=== PATIENT | female | born 1960 | race Caucasian/White ===

== ENCOUNTER → 2022-09-28 15:27 | Outpatient (BNVA) | payer OTHER, SELFPAY | PROVIDERS: Visit Provider Physician Assistant | DX: M54.50 Low back pain, unspecified (principal); M43.16 Spondylolisthesis, lumbar region; Z91.81 History of falling | CPT/HCPCS: 72100; 99203 ==

== ENCOUNTER → 2022-10-06 13:43 | Outpatient (BNVA) | payer OTHER, SELFPAY | PROVIDERS: Visit Provider Internal Medicine | DX: M54.50 Low back pain, unspecified (principal) | CPT/HCPCS: 99213 ==

== ENCOUNTER → 2022-10-19 08:39 | Outpatient (BNVA) | payer OTHER, SELFPAY | PROVIDERS: Visit Provider Internal Medicine | DX: S29.012D Strain of muscle and tendon of back wall of thorax, subsequent encounter (principal); S39.012D Strain of muscle, fascia and tendon of lower back, subsequent encounter; W18.30XD Fall on same level, unspecified, subsequent encounter | CPT/HCPCS: 99213 ==

== ENCOUNTER 2024-07-30 12:47 | Outpatient (REF) | payer OTHER, SELFPAY ==
[2024-07-30 15:09] LABS: MANUAL DIFF FLAG NO
[2024-07-30 15:21] LABS: Basophils Percent Auto 0.6 % (0-2); Eosinophils Percent Auto 0.2 % (0-4); Hematocrit 40.4 % (37.0-47.0); Hemoglobin 13.4 g/dl (12.0-16.0); Imm Gran Abs Auto 0.02 X10*3/uL (0.00-0.03); Imm Gran Pct Auto 0.3 % (0.0-0.4); Lymphocytes Percent Auto 32.7 % (20-40); Mean Corpuscular HGB Conc 33.2 g/dl (31.0-35.0); Mean Corpuscular Hemoglobin 30.4 pg (27.0-33.0); Mean Corpuscular Volume 91.6 fL (80.0-98.0); Mean Platelet Volume 9.6 fL (9.4-12.3); Monocytes Absolute Auto 0.5 X10*3/uL (0.1-1.2); Monocytes Percent Auto 7.3 % (2-11); Neutrophils Absolute Auto 3.7 x10*3/uL (2.0-8.3); Neutrophils Percent Auto 58.9 % (45-73); Platelet Count 275 X10*3/uL (160-400); Red Blood Count 4.41 X10*6/uL (4.20-5.50); Red Cell Distribution Width 13.3 % (11.0-16.0); White Blood Count 6.2 X10*3/uL (4.8-10.8)
[2024-07-30 15:45] LABS: Alanine Aminotransferase 14 U/L (0-31); Albumin Level 4.4 g/dL (3.5-5.0); Alkaline Phosphatase 50 U/L (39-117); Anion Gap 11 (12-20); Aspartate Amino Transferase 25 U/L (5-31); Bilirubin Total 0.5 mg/dL (0.0-1.0); Blood Urea Nitrogen 23 mg/dL (9-16); C Reactive Protein < 0.04 mg/dL (< or = 0.50); Calcium 9.8 mg/dL (8.4-10.2); Carbon Dioxide 28 mmol/L (22-29); Chloride 105 mmol/L (96-108); Estimated Glomerular Filt Rate > 60; Glucose Random 92 mg/dL (60-115); Sodium 140 mmol/L (135-145); Total Protein 7.1 g/dL (6.5-8.0)
[2024-07-30 16:00] LABS: Erythrocyte Sedimentation Rate 4 MM/HR (0-20)
[2024-07-30 16:38] LABS: Creatinine Urine 108.74 mg/dL; Total Protein Urine Random < 7 mg/dL (<12)
[2024-08-01 10:28] LABS: Complement C3 109 mg/dL (83-193)
== END 2024-07-30 12:48 | disposition home or self-care (01) ==
LOC: HO.LAB 12:47
PROVIDERS: PCP Nurse Practitioner Adult Health; Visit Provider Internal Medicine Rheumatology
DX: M32.9 Systemic lupus erythematosus, unspecified (principal); M35.00 Sjogren syndrome, unspecified; M19.90 Unspecified osteoarthritis, unspecified site; Z79.631 Long term (current) use of antimetabolite agent
CPT/HCPCS: 80053; 82550; 82570; 84156; 85025; 85652; 86140; 86160

== ENCOUNTER 2024-10-07 09:33 | Outpatient (REF) | payer OTHER, SELFPAY ==
--- OUTSIDE RECORDS SUMMARY | 2024-10-07 09:41 | XMS_ITS | Data Portability ---
Author Organization [facility], [facility] Address [address] [place] [address] Care Team Providers Care Research Electrician Name Role Phone HAJA LA Insurance Claim Approver JUANIS SEARS Soft Sugar Operator Head [phone] KEITH TAFOYA Deputy Chief Executive KAITLIN MONTAÑO Rooming House Keeper COLLEEN GARBER General Surgeon MISAEL MURPHY Insurance Claim Approver [phone] HERLINDA PASCUAL Primary Care Provider [phone] Assessment Encounter Date Assessment Date Assessment LastModified by Organization Details LastModified Time 01/02/2020 01/02/2020 Patient agreed t o this visit via phone or secure telehealth platform due to the COVID -19 pandemic. Patient understands this is a scheduled visit and the usual procedures with regard to billing and confidentiality apply. Patient was notified that the provider location is [facility] [place] Patient location: home During the visit the patient? s medical history and medical record were reviewed. The patient was notified to call our office for worsening or urgent symptoms. [email or web address] Not available 01/02/2020 12:52:07 Plan of Treatment Reminders Order Date Submit Date Provider Last Modified By Organization Details Last Modified Time Details Appointments None recorded . Lab pap, LB + HPV 2019 020 [facility] (Pathology), [address] [place] [address], [address], 0 09:26:53 Referral None recorded . Procedures None recorded . Surgeries None recorded . Imaging MAMMO, screenin g, digital, bilatera l 2019 020 ATHENAFAX [facility], [address] [facility], [place], [address], 0 09:41:07 Medication Orders lorazepa m 1 mg tablet 2019 020 INTERFACE [facility] #[id number], [address], [place], [id number], 0 11:48:02 Hydromet 5 mg-1.5 mg/5 mL oral syrup 2019 020 aforesteire [facility] #[id number], [address], [place], [id number], 0 07:33:02 lorazepa m 1 mg tablet 2019 020 INTERFACE [facility] #[id number], [address], [place], [id number], 0 07:49:40 Patient TargetsNo targets recorded. Patient Instructions Encounter Date Encounter Id Patient Instructions Last Modified By Organization Details Last Modified Time 11/11/2019 [id number] high blood pressure: care instructions Not available 11/11/2019 16:47:09 learning about high blood pressure Not available 11/11/2019 16:47:09 well visit, women 50 to 65: care instructions Not available 11/11/2019 16:47:09 asthma handout / teaching Not available 11/11/2019 16:47:09 asthma action plan Not available 11/11/2019 16:47:09 After a discussion of treatment options, which included consideration of best practices and patient preferences, the previous treatment plan and objectives were adopted: Cardiovascular risk reduction was discussed including benefits and risks of aspirin, exercise goals, healthy eating and healthy weight . Discussion greater than 7.5 minutes. [email or web address] Not available 11/11/2019 15:06:10 01/02/2020 [id number] After a discussion of treatment options, which included consideration of best practices and patient preferences, the above treatment plan and objectives were adopted as above. 100% of today's 25 min visit spent counseling or coordinating care [email or web address] Not available 01/02/2020 12:52:00 01/08/2020 [id number] Patient agreed to this visit via phone or secure telehelath platform due to the COVID-19 pandemic. Patient understands this is a scheduled visit and the usual procedures with regard to billing and confidentiality apply. Patient was notified that the provider location is [facility] – [place]. Patient location: Home During the visit the patient's medical history and medical record were reviewed. The patient was notified to call our office for worsening or urgent symptoms and to schedule an in person visit if necessary. 25 min visit: 50 % of time spent providing counseling & instruction. Not available 01/08/2020 15:27:41 02/04/2020 [id number] anxiety disorder: care instructions Not available 02/06/2020 13:46:41 Patient agreed to this visit via phone or secure telehelath platform due to the COVID-19 pandemic. Patient understands this is a scheduled visit and the usual procedures with regard to billing and confidentiality apply. Patient was notified that the provider location is [facility] – [place]. Patient location: Home During the visit the patient's medical history and medical record were reviewed. The patient was notified to call our office for worsening or urgent symptoms and to schedule an in person visit if necessary. Not available 02/06/2020 13:46:22 04/05/2020 [id number] Patient agreed to this visit via phone or secure telehelath platform due to the COVID-19 pandemic. Patient understands this is a scheduled visit and the usual procedures with regard to billing and confidentiality apply. Patient was notified that the provider location is [facility] [place]. Patient location: Home During the visit the patient's medical history and medical record were reviewed. The patient was notified to call our office for worsening or urgent symptoms and to schedule an in person visit if necessary. Not available 04/05/2020 08:12:17 Reason for Referral None Reported. Results Created Date Observation Date Name Description Value Unit Range Abnormal Flag Note LastModifiedBy Organization Detail LastModifiedTime 10/20/19 20 10/20/2019 urina lysis , dipst ick glu UA NEGATI VE Not Available [facility] [address] [place] [address], [id number], 10/20/2019 10:50:38 10/20/19 20 10/20/2019 urina lysis , dipst ick clarity UA CLEAR Not Available [facility] [address] [place] [address], [address], 10/20/2019 10:50:38 10/20/19 20 10/20/2019 urina lysis , dipst ick uro UA 0.2000 Not Available [facility] [address] [place] [address], [address], 10/20/2019 10:50:38 10/20/19 20 10/20/2019 urina lysis , dipst ick ket UA 1+ abnormal Not Available [facility] [address] [place] [address], [address], 10/20/2019 10:50:38 10/20/19 20 10/20/2019 urina lysis , dipst ick pro UA TRACE abnormal Not Available [facility] [address] [place] [address], [address], 10/20/2019 10:50:38 10/20/19 20 10/20/2019 urina lysis , dipst ick nit UA NEGATI VE Not Available [facility] [address] [place] [address], [address], 10/20/2019 10:50:38 10/20/19 20 10/20/2019 urina lysis , dipst ick raimundo UA TRACE abnormal Not Available [facility] [address] [place] [address], [address], 10/20/2019 10:50:38 10/20/19 20 10/20/2019 urina lysis , dipst ick pH UA 5.5000 Not Available [facility] [address] [place] [address], [address], 10/20/2019 10:50:38 10/20/19 20 10/20/2019 urina lysis , dipst ick SG UA >=1.03 00 Not Available [facility] [address] [place] [address], [address], 10/20/2019 10:50:38 10/20/19 20 10/20/2019 urina lysis , dipst ick color UA DARK YELLOW Not Available [facility] [address] [place] [address], [address], 10/20/2019 10:50:38 10/20/19 20 10/20/2019 urina lysis , dipst ick blo UA NEGATI VE Not Available [facility] [address] [place] [address], [address], 10/20/2019 10:50:38 10/20/19 20 10/20/2019 urina lysis , dipst ick balbir UA NEGATI VE Not Available [facility] [address] [place] [address], [id number], 10/20/2019 10:50:38 10/20/19 20 10/22/2019 cultu re, urine culture, urine, routine CULTU RE, URINE , ROUTI NE Micro Numbe r: [id number] Test Statu s: Final Speci men Sourc e: URINE Speci men Quali ty: Adequ ate Resul t: Multi ple organ isms prese nt, each less than 10,00 0 CFU/m L. These organ isms, commo nly found on exter nal and inter nal genit mira, are consi dered to be colon izers . No furth er testi ng perfo rmed. 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 CERVI GABBIE, LIQUI D BASED SPECI MEN: SPECI MEN ADEQU ACY: Satis facto ry for evalu ation . INTER PRETA TION: NEGAT PABLO FOR INTRA EPITH ELIAL LESIO N OR MALIG ANGELICA . ADDIT IONAL INFOR MATIO N: Atrop hic saldaña es prese nt. This speci men was presc reene d using the BD Focal Point GS Imagi ng Syste m. Elect mihai alleliana Janell d Out By: Kings a LoBuo no CT( CP)MB Cervi gabbie cytol ogy is a scree nafisa test prima rily for squam ous cance rs and precu rsors and has assoc iated false -nega tive and false -posi tive resul ts. New techn ologi es such as liqui d-bas ed prepa ratio ns may decre ase but will not elimi emre all false -nega tive resul ts. Regul ar sampl ing and follo w-up of unexp lloyd d clini gabbie signs and sympt oms are recom johnnie d to minim ize false negat pablo resul ts. PROCE DURES /ADDE NDA HPV Testi ng (Requ ested ) Order ed Date: A. CERVI GABBIE, LIQUI D BASED SPECI MEN: Human Papil nati Virus Test Negat pablo for high- risk human papil lomav irus types 16, 18, 45 and the Othe r high risk probe set (Incl udes 31, 33, 35, 39, 51, 52, 56, 58, 59, 66, 68) by Aspen Harirs nson Onccarlitos wong HR-HP V hussein sis. Clini gabbie corre latio n is advis ed. This HPV test was perfo rmed at [facility] [place], [address] [place]. This test has been FDA appro cathi for SureP ath cervi gabbie cytol ogy speci mens. The accur acy and preci migue of this test for all other speci men sourc es has been verif ied in the Cytop athol ogy [facility] and has not been clear ed or appro cathi by the U.S. Food and Drug Admin istra tion. Clini gabbie corre latio n is advis ed. Rena ctron icall y Janell d Out By: Kayla Truong on 2019 15:52 CLINI GABBIE HISTO RY Date of Last Menst rual Perio d: Menst rual Histo ry: Unkno wn Other Clini gabbie Condi tions : Scree nafisa Pap SPECI MEN SOURC E A: CERVI GABBIE, LIQUI D BASED SPECI MEN Not Available [facility] (Outpatient) [address] [place] [address], [address], 11/27/2019 09:26:53 12/12/19 20 12/12/2019 CBC w/ auto diff WBC 4.78 K/uL 4.00-1 1.00 Note Refer ence Range updat es to all CBC and Diffe renti al resul ts. Not Available [facility] (Outpatient) [address] [place] [address], [address], 12/12/2019 18:55:14 12/12/19 20 12/12/2019 CBC w/ auto diff RBC 4.38 M/uL 3.72-5 .30 Not Available [facility] (Outpatient) [address] [place] [address], [address], 12/12/2019 18:55:14 12/12/19 20 12/12/2019 CBC w/ auto diff HGB 13.8 g/dL 11.4-1 5.9 Note updat ed Refer ence Range s for all CBC and Diffe renti al resul ts. Not Available [facility] (Outpatient) [address] [place] [address], [address], 12/12/2019 18:55:14 12/12/19 20 12/12/2019 CBC w/ auto diff HCT 41.7 % 34.2-4 6.8 Not Available [facility] (Outpatient) [address] [place], [address], 12/12/2019 18:55:14 12/12/19 20 12/12/2019 CBC w/ auto diff plt 248 K/uL 140-43 0 Not Available [facility] (Outpatient) [address] [place], [address], 12/12/2019 18:55:14 12/12/19 20 12/12/2019 CBC w/ auto diff MCV 95.2 fL 78.0-9 7.0 Not Available [facility] (Outpatient) [address] [place], [address], 12/12/2019 18:55:14 12/12/19 20 12/12/2019 CBC w/ auto diff MCH 31.5 pg 25.0-3 3.0 Not Available [facility] (Outpatient) [address] [place], [address], 12/12/2019 18:55:14 12/12/19 20 12/12/2019 CBC w/ auto diff MCHC 33.1 g/dL 32.0-3 6.0 Not Available [facility] (Outpatient) [address] [place], [address], 12/12/2019 18:55:14 12/12/19 20 12/12/2019 CBC w/ auto diff RDW 13.6 % 11.0-1 6.0 Not Available [facility] (Outpatient) [address] [place], [address], 12/12/2019 18:55:14 12/12/19 20 12/12/2019 CBC w/ auto diff MPV 10.7 fL 8.4-12 .8 Not Available [facility] (Outpatient) [address] [place], [address], 12/12/2019 18:55:14 12/12/19 20 12/12/2019 CBC w/ auto diff NRBC 0.00 /100_ WBCs 0 Not Available [facility] (Outpatient) [address] [place], [address], 12/12/2019 18:55:14 12/12/19 20 12/12/2019 CBC w/ auto diff absolute NRBC 0.00 K/uL 0 Not Available [facility] (Outpatient) [address] [place], [address], 12/12/2019 18:55:14 12/12/19 20 12/12/2019 CBC w/ auto diff diff method Auto Not Available [facility] (Outpatient) [address] [place], [address], 12/12/2019 18:55:14 12/12/19 20 12/12/2019 CBC w/ auto diff neuts 49.9 % 43.0-7 5.0 Not Available [facility] (Outpatient) [address] [place], [address], 12/12/2019 18:55:14 12/12/19 20 12/12/2019 CBC w/ auto diff lymphs 40.6 % 18.2-4 7.4 Not Available [facility] (Outpatient) [address] [place], [address], 12/12/2019 18:55:14 12/12/19 20 12/12/2019 CBC w/ auto diff monos 6.5 % 4.00-1 1.00 Not Available [facility] (Outpatient) [address] [place], [address], 12/12/2019 18:55:14 12/12/19 20 12/12/2019 CBC w/ auto diff eos 1.3 % 0.0-8. 0 Not Available [facility] (Outpatient) [address] [place], [address], 12/12/2019 18:55:14 12/12/19 20 12/12/2019 CBC w/ auto diff basos 1.5 % 0.0-2. 0 Not Available [facility] (Outpatient) [address] [place], [address], 12/12/2019 18:55:14 12/12/19 20 12/12/2019 CBC w/ auto diff granulocytes , immature (%) 0.2 % 0.0-0. 9 Not Available [facility] (Outpatient) [address] [place], [address], 12/12/2019 18:55:14 12/12/19 20 12/12/2019 CBC w/ auto diff absolute neuts 2.39 K/uL 1.80-7 .70 Not Available [facility] (Outpatient) [address] [place], [address], 12/12/2019 18:55:14 12/12/19 20 12/12/2019 CBC w/ auto diff absolute lymphs 1.94 K/uL 1.00-3 .10 Not Available [facility] (Outpatient) [address] [place], [address], 12/12/2019 18:55:14 12/12/19 20 12/12/2019 CBC w/ auto diff absolute monos 0.31 K/uL 0.20-0 .80 Not Available [facility] (Outpatient) [address] [place], [address], 12/12/2019 18:55:14 12/12/19 20 12/12/2019 CBC w/ auto diff absolute eos 0.06 K/uL 0.00-0 .80 Not Available [facility] (Outpatient) [address] [place], [address], 12/12/2019 18:55:14 12/12/19 20 12/12/2019 CBC w/ auto diff absolute basos 0.07 K/uL 0.00-0 .09 Not Available [facility] (Outpatient) [address] [place], [address], 12/12/2019 18:55:14 12/12/19 20 12/12/2019 CBC w/ auto diff granulocytes , immature 0.01 K/uL 0.00-0 .05 Not Available [facility] (Outpatient) [address] [place], [address], 12/12/2019 18:55:14 12/12/19 20 12/12/2019 eryth rocyt e sedim entat ion rate by dustin jaime metho d ESR 6 mm/h 0-30 Not Available [facility] (Outpatient) [address] [place], [address], 12/12/2019 19:18:44 12/12/19 20 12/12/2019 CMP, serum or plasm a sodium 137 mmol/ L 133-14 6 Not Available [facility] (Out[facility]) [address] [place], [address], 12/12/2019 19:59:58 12/12/19 20 12/12/2019 CMP, serum or plasm a potassium 3.8 mmol/ L 3.3-5. 1 Not Available [facility] (Outpatient) [address] [place], [address], 12/12/2019 19:59:58 12/12/19 20 12/12/2019 CMP, serum or plasm a chloride 98 mmol/ L 96-108 Not Available [facility] (Outpatient) [address] [place], [address], 12/12/2019 19:59:58 12/12/19 20 12/12/2019 CMP, serum or plasm a CO2 28 mmol/ L 21-35 Not Available [facility] (Out[facility]) [address] [place], [address], 12/12/2019 19:59:58 12/12/19 20 12/12/2019 CMP, serum or plasm a BUN 11 mg/dL 6-19 Not Available [facility] ([facility]) [address] [place], [address], 12/12/2019 19:59:58 12/12/19 20 12/12/2019 CMP, serum or plasm a creatinine 0.80 mg/dL 0.5-1. 5 Not Available [facility] ([facility]) [address] [place], [address], 12/12/2019 19:59:58 12/12/19 20 12/12/2019 CMP, serum or plasm a glucose 92 mg/dL 70-99 Not Available [facility] ([facility]) [address] [place], [address], 12/12/2019 19:59:58 12/12/19 20 12/12/2019 CMP, serum or plasm a albumin 4.5 g/dL 3.9-4. 8 Not Available [facility] ([facility]) [address] [place], [address], 12/12/2019 19:59:58 12/12/19 20 12/12/2019 CMP, serum or plasm a total protein 7.1 g/dL 6.5-8. 0 Not Available [facility] ([facility]) [address] [place], [address], 12/12/2019 19:59:58 12/12/19 20 12/12/2019 CMP, serum or plasm a calcium 10.0 mg/dL 8.4-10 .3 Not Available [facility] ([facility]patient) [address] [place], [address], 12/12/2019 19:59:58 12/12/1912/12/2019 CMP, serum or plasm a alkaline phosphatase 52 U/L 39-117 Not Available [facility] (Out[facility]) [address] [place], [address], 12/12/2019 19:59:58 12/12/19 20 12/12/2019 CMP, serum or plasm a total bilirubin 0.3 mg/dL 0.0-1. 2 Not Available [facility] ([facility]) [address] [place] [address], [address], 12/12/2019 19:59:58 12/12/19 20 12/12/2019 CMP, serum or plasm a AST 20 U/L 0-37 Not Available [facility] ([facility]) [address] [place] [address], [address], 12/12/2019 19:59:58 12/12/19 20 12/12/2019 CMP, serum or plasm a ALT 8 U/L 0-40 Not Available [facility] ([facility]) [address] [place] [address], [address], 12/12/2019 19:59:58 12/12/19 20 12/12/2019 CMP, serum or plasm a globulin 2.6 g/dL 1-4.8 Not Available [facility] (Outpatient) [address] [place], [address], 12/12/2019 19:59:58 12/12/19 20 12/12/2019 CMP, serum or plasm a eGFR 82 mL/mi n/1.7 3m2 >59 If patie nt is black , multi ply resul t by 1.159 . Estim ated glome rular filtr ation rate calcu lated using the CKD-E PI equat ion. Not Available [facility] (Out[facility]) [address] [place], [address], 12/12/2019 19:59:58 12/12/19 20 12/12/2019 CMP, serum or plasm a anion gap 15 mmol/ L 10-20 Not Available [facility] ([facility]) [address] [place], [address], 12/12/2019 19:59:58 12/12/19 20 12/12/2019 C-gunnar ctive prote in, quant itati ve, serum or plasm a C reactive protein 0.4 mg/L 0.0-4. 0 Not Available [facility] (Outpatient) [address] [place], [address], 12/12/2019 20:00:00 12/12/19 20 12/12/2019 T4, free, serum free T4 1.1 NG/dL 0.9-1. 7 Not Available [facility] ([facility]) [address] [place], [address], 12/12/2019 20:00:01 12/12/19 20 12/12/2019 T3, free, serum or plasm a free T3 3.6 pg/mL 2.0-4. 4 Not Available [facility] ([facility]patient) [address] [place], [address], 12/12/2019 20:00:02 12/12/19 20 12/12/2019 TSH, serum or plasm a TSH 0.49 uIU/m L 0.27-4 .20 Not Available [facility] (Outpatient) [address] [place], [address], 12/12/2019 20:00:03 12/12/19 20 12/15/2019 thyro globu gamaliel antib francisco thyroglobuli n antibody, S <1.8 IU/mL <4.0 (NOTE ) ----- ----- ----- ----A DDITI ONAL INFOR MATIO N---- ----- ----- ----- The thyro globu gamaliel antib francisco testi ng metho d is an immun oenzy matic assay manuf actur ed by [employer] and perfo rmed on the Unice l DXI 800. Value s obtai landry from diffe rent assay metho ds or kits may be diffe rent and canno t be used inter saldaña elise . The resul ts canno t be inter prete d as absol elmer evide nce for the prese nce or absen ce of malig nant disea se. Not Available [facility] (Outpatient) [address] [place], [address], 12/15/2019 15:48:25 12/12/19 20 12/15/2019 thyro id perox idase (tpo) Ab, serum thyroperoxid ase Ab, S 21.2 IU/mL <9.0 high Not Available [facility] (Outpatient) [address] [place], [address], 12/15/2019 15:48:27 12/12/19 20 12/16/2019 C3 (comp lemen t), serum or plasm a C3 123 mg/dL 81-157 Not Available [facility] (Outpatient) [address] [place], [address], 12/16/2019 09:45:42 12/12/19 20 12/16/2019 C4 (comp lemen t), serum or plasm a C4 25 mg/dL 12-39 Not Available [facility] (Outpatient) [address] [place], [address], 12/16/2019 09:45:44 04/13/20 20 04/14/2020 SARS CoV 2 IgG Ab, QL IA, serum or plasm a sars cov 2 Ab IgG NEGATI VE normal Refer ence range : Negat pablo This test is inten ded for use as an aid in ident ifyin g indiv idual s with an adapt pablo immun e respo nse to SARS- CoV-2 , indic ating recen t or prior infec tion. Resul ts are for the detec tion of SARS- CoV-2 antib odies . IgG antib odies to SARS- CoV-2 are gener ally detec table in blood sever al days after initi al infec tion, altho ugh the durat ion of time antib odies are prese nt post- infec tion is not well lizette cteri zed. At this time, it is unkno wn for how long antib odies persi st follo wing infec tion and if the prese nce of antib odies confe rs prote ctive immun ity. Indiv idual s may have detec table virus by molec ular testi ng prese nt for sever al weeks follo wing seroc onver migue. Negat pablo resul ts do not precl ude acute SARS- CoV-2 infec tion. This test shoul d not be used to diagn ose acute SARS- CoV-2 infec tion. If acute infec tion is suspe cted, direc t testi ng by molec ular metho ds for SARS- CoV-2 is neces juan. False posit pablo resul ts for the test may occur due to cross -reac tivit y from pre-e xisti ng antib odies or other possi ble cause s. Pleas e revann w the Fact Sheet s avail able for healt h care provi ders and patie nts using the follo wing websi emma: [facility] /home /Covi d-19/ HCP/a ntibo dy/fa ct-sh eet2 [facility] /home /Covi d-19/ Patie nts/a ntibo dy/fa ct-sh eet2 This test has been autho rized by the FDA under an Emerg ency Use Autho rizat ion (EUA) for use by autho rized labor atori es. The FDA autho rized label ing is avail able on the [facility] websi te: www.Q uestD iagno MOVLs .com/ Covid 19. For addit ional infor giovana bone e refer to http: //luda lipscombque stdia gnost ics.c om/fa q/FAQ 219 (This link is being provi ded for infor giovana nal/e ducat ional purpo ses only. ) Not Available [facility] [place] [facility] [address], [place], [address], 04/14/2020 21:24:19 10/15/19 20 10/15/2019 xr chest Pa and later al 2 views XR CHEST PA AND LATERA L 2 VIEWS HISTOR Y: *Short ness of breath COMPAR JUNIOR: Chest x-ray 03/14/[address] scan of the chest 04/09/20 14 FINDIN GS: Lines and Tubes: None. Heart: The cardia c silhou ette is normal in size. Medias tinum: Air and fluid within disten ded stomac h is again noted within the left lower hemidi aphrag m. This correl ates with the left Bochda lek hernia contai nafisa stomac h and fat on the prior CT. Mild left basila r atelec tasis is presen t. Lungs and Pleura l: The right lung is clear. No pneumo thorax or pleura l effusi on. Bones and Soft Tissue s: No acute abnorm ality. IMPRES MIGUE: Left-s ided Bochda lek hernia contai nafisa air and fluid within the dilate d stomac h. Surgic al evalua tion can be obtain ed. Depend ent atelec tasis. POS CDHRAD BOARDW S4 Electr onical ly Signed by: PAVAN ROBLERO on 10/15/19 12:30 PM Interp reted by: Pavan Roblero MD Signed by: Pavan Roblero MD 10/15/19 Final result P.s. Cough x1 month, hx of flu. Cough x 1 month WARNER ESCALANTE [facility] [address] [facility], [place], [address], 10/15/2019 17:15:20 10/16/19 20 10/15/2019 XR, chest , 2 view No observ ation record ed. BARCODE Not Available 2019 09:27:01 11/04/19 20 11/04/2019 xr chest Pa and later al 2 views EXAM: XR CHEST PA AND LATERA L 2 VIEWS HISTOR Y: *Cough histor y of bronch iectas is and Sjogre n's. TECHNI QUE: PA and latera l views chest. COMPAR JUNIOR: 2019. 2016. FINDIN GS: Lines/ tubes: None. Cardio medias tinal and hilar silhou ettes: Normal cardia c silhou ette size. Large hiatal hernia with air-fl uid level within the intrat horaci c stomac h. Lungs: Chroni c LEFT lower lobe volume loss from the large hernia . No acute pulmon deisy consol idatio n or pleura l effusi on. No interv al change . IMPRES MIGUE: No acute pulmon deisy proces s. No signif icant interv al change . Large chroni c hiatal hernia . POS - CDHRAD BOARDW S8 Electr onical ly Signed by: Beata Lema on 020 9:41 PM Interp reted by: Beata Lema MD Signed by: Beata Lema MD 0 Final result WARNER ESCALANTE [email or web address] [facility] [address] [place], [address], 11/04/2019 22:34:53 07/27/20 21 07/27/2021 MAMMO tierney No observ ation record ed. [email or web address] [facility] [address] [place], [address], 07/27/2021 20:49:12 Result Notes None recorded. Problems Name Problem SNOMED Code Status Onset Date Resolution Date Notes Provider Name and Address Organization Details Recorded Time Asthma 442713256 Active 2015 [place], [address], [facility] 6 19:38:17 Essential hypertensi on 97124328 Active 2015 [place], [address], [facility] 6 19:39:04 Hypothyroi dism 72598694 Active 2015 [place], [address], [facility] 6 19:39:20 Depressive disorder 17517967 Active 2015 [place], [address], [facility] 19:39:46 Anemia 172881535 Active 2015 [place]I [place], [address], [facility] 6 19:40:01 Joint problem Active 2015 VIRI Foster [address] [place], [place] [address], [address], [facility] 6 19:40:33 Sj??gren's syndrome 30081704 Active 2015 VIRI Foster [address] [place], [place] [address], [address], [facility] 6 19:40:45 Lyme disease 32579002 Active 2015 VIRI Foster [address] [place], [place] [address], [address], [facility] 6 19:40:59 Myesha-Ba rr virus disease 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 Roseanna Michaels LPN null, [facility] 2 13:13:02 Problem Notes None recorded. Procedures Surgical History Date Name Laterality Status Provider Name and Address Organization Details Recorded Time 11/15/19 21 prevention-cardi ovascular risk reduction counseling cancelled [facility] 11/15/2020 14:41:23 11/15/19 21 prevention-patiua l alcohol misuse screening cancelled [facility] 11/15/2020 14:41:23 11/15/19 21 Asthma Control Test (12 + years old) cancelled [facility] 11/15/2020 14:41:45 11/11/19 20 prevention-cardi ovascular risk reduction counseling completed Sarah Cuba [facility] 11/11/2019 14:49:30 11/11/19 20 prevention-leda huff alcohol misuse screening completed Sarah Cuba [facility] 11/11/2019 14:49:30 10/27/19 20 Nebulizer Tx completed Pati Ford LPN [facility] 10/27/2019 10:05:37 02/08/20 18 Asthma Control Test (12 + years old) completed Darcie Samuel [facility] 02/07/2018 15:33:09 01/12/20 18 POC Urinalysis Testing completed Suzi Alexandra [facility] 01/11/2018 09:59:24 05/29/20 17 Asthma Control Test (12 + years old) completed VIRI Foster [address] [place] [address], [address], [facility] 05/29/2017 14:19:29 06/16/20 16 Trochanteric Bursa Injection completed Александр Juarez MD [address] [place], [address], [facility] 06/16/2016 21:20:10 02/15/20 16 completed VIRI Foster [address] [place] [address], [address], [facility] 04/11/2016 19:35:54 02/14/19 95 completed VIRI Foster [address] [place] [address], [address], [facility] 04/11/2016 19:34:24 01/04/19 92 completed VIRI Foster [address] [place], [address], [facility] 04/11/2016 19:34:47 06/29/19 89 completed VIRI Foster [address] [place] [address], [address], [facility] 04/11/2016 19:35:07 Imaging Results Imaging Date Name Status LastModified by Organiz ation Details LastModified Time 10/15/2019 xr chest Pa and lateral 2 views completed [address] [facility] [address] [place], [address], 10/15/2019 17:15:20 10/15/2019 XR, chest, 2 view completed BARCODE Information not available 10/16/2019 09:27:01 11/04/2019 xr chest Pa and lateral 2 views completed [address] [facility] [address] [place], [address], 11/04/2019 22:34:53 07/27/2021 MAMMO, screening completed [address] [facility] [address] [place], [address], 07/27/2021 20:49:12 Procedure Notes None recorded. Medical Equipment None Reported. Allergies Allergen ID Allergen Name Allergen Category Reaction Reaction Severity Criticality Documentation Date Start Date Code Code System Note Provider Name and Address Organization Details Recorded Time 375590 codeine medicatio n Not available Not available Not available 04/04/2016 2670 RxNorm vomit Maryam Means [employer] null, [facility] 6 09:54:14 540551 Celebrex medicatio n rash Not available Not available 04/04/2016 71698 7 RxNorm Maryam Means [employer] null, [facility] 6 09:53:56 811813 Zantac medicatio n itching Not available Not available 04/04/2016 22708 3 RxNorm Maryam Means [employer] null, [facility] 6 09:54:40 304642 Keflex medicatio n irregular heart rate Not available Not available 04/04/201669785 7 RxNorm Maryam Means [employer] null, [facility] 6 09:55:12 Medications Name Sig Start Date Stop Date Status Note LastModified by Organization Details LastModified Time Hydromet 5 mg-1.5 mg/5 mL oral syrup TK 5ML PO Q 4 H PRN active Not Available Not Available No t Available cyclobenzap rine 10 mg tablet TK 1 T PO TID PRF SPASM active Not Available Not Available No t Available fluconazole 100 mg tablet TK 1 T PO D PRF THRUSH active Not Available Not Available No t Available clotrimazol e 10 mg augusto 10/16 completed Not Available Not Available Not Available levothyroxi ne 175 mcg tablet TK 1 T PO QD 10/14 completed Not Available Not Available Not Available bupropion HCl SR 150 mg tablet,12 hr sustained-r elease 04/11 completed Not Available Not Available Not Available levothyroxi ne 137 mcg tablet TAKE 1 TABLET BY MOUTH EVERY DAY 06/26 completed Not Available Not Available Not Available pilocarpine 5 mg tablet Take 1 tablet 4 times a day by oral route. active Not Available Not Available No t Available nystatin 100,000 unit/mL oral suspension SHAKE LQ AND TK 5 ML PO QID FOR 7 DAYS UTD active Not Available Not Available No t Available prednisone 10 mg tablet Take 6 Tablets for 3 days. Take 5 Tablets for 3 Days. Take 4 Tablets for 3 Days. Take 3 Tablets for 3 Days. Take 2 Tablets for 3 Days. Take 1 Tablet for 3 Days. 01/01 completed Not Available Not Available Not Available gabapentin 600 mg tablet TK 1 T PO QAM AND 2 TS PO QPM active Not Available Not Available No t Available doxycycline hyclate 100 mg capsule 01/01 completed Not Available Not Available Not Available ipratropium 0.5 mg-albutero l 3 mg (2.5 mg base)/3 mL nebulizatio n soln INHALE 1 VIAL VIA NEBULIZER QID PRN 11/11 completed Not Available Not Available Not Available triazolam 0.25 mg tablet TK 2 TS PO HS PRN 05/13 completed Not Available Not Available Not Available trazodone 50 mg tablet TK 2 TS PO Q NIGHT 08/01 completed Not Available Not Available Not Available cetirizine 10 mg tablet active Not Available Not Available Not Available azithromyci n 250 mg tablet TAKE 2 TABLETS (500 MG) BY ORAL ROUTE ONCE DAILY FOR 1 DAY THEN 1 TABLET (250 MG) BY ORAL ROUTE ONCE DAILY FOR 4 DAYS 10/27 completed Not Available Not Available Not Available nystatin 100,000 unit/gram topical ointment 10/16 completed Not Available Not Available Not Available tizanidine 4 mg tablet TK 1 T PO Q 8 H FOR 5 DAYS PRN 05/29 completed Not Available Not Available Not Available fluconazole 150 mg tablet Take 1 tab, repeat in 3 days if still w/symptom s 10/16 completed Not Available Not Available Not Available valacyclovi r 1 gram tablet TAKE 1 TABLET BY MOUTH EVERY DAY. FOLLOW UP BEFORE ADDITIONA L REFILLS 2021 active Not Available Not Available Not Avai lable sumatriptan 100 mg tablet TAKE 1 TABLET BY MOUTH AT ONSET OF HEADACHE. MAY REPEAT IN 2 HOUR, NO MORE THAN 200 MG/ 24 HOURS 2020 active Not Available Not Available Not Avai lable hydrocodone 5 mg-acetamin ophen 325 mg tablet 04/05 completed Not Available Not Available Not Available sodium chloride 3 % for nebulizatio n active Not Available Not Available Not Available fluconazole 200 mg tablet TK 1 T PO QD 10/16 completed Not Available Not Available Not Available ondansetron HCl 4 mg tablet 04/04 completed Not Available Not Available Not Available prednisone 20 mg tablet TK 3 TS PO Q DAY. CONT TO TAPER D FOR THE NEXT 10 DAYS active Not Available Not Available No t Available sertraline 100 mg tablet TK 2 TS PO QD active Not Available Not Available No t Available sumatriptan 50 mg tablet TK 1 T PO AT ONSET OF HUFF REPEAT IN 2 H NO MORE THAN 200MG IN 24 H 06/16 completed Not Available Not Available Not Available nystatin 500,000 unit tablet TK 1 TO 2 TS PO TID 04/25 completed Not Available Not Available Not Available penicillin V potassium 500 mg tablet 04/04 completed Not Available Not Available Not Available metronidazo le 500 mg tablet TK 1 T PO TID 04/25 completed Not Available Not Available Not Available prochlorper azine maleate 10 mg tablet TK 1 T PO Q 6 H 04/25 completed Not Available Not Available Not Available valacyclovi r 500 mg tablet 04/11 completed Not Available Not Available Not Available sulfamethox azole 800 mg-trimetho prim 160 mg tablet 04/04 completed Not Available Not Available Not Available liothyronin e 5 mcg tablet TAKE 1 TABLET BY MOUTH TWICE DAILY active Not Available Not Available No t Available tramadol 50 mg tablet TK 1 T PO Q 8 H PRN active Not Available Not Available No t Available butalbital- acetaminoph en-caffeine 50 mg-325 mg-40 mg tablet TAKE 1 TABLET BY MOUTH EVERY 8 HOURS NEEDED FOR HEADACHE active Not Available Not Available No t Available ondansetron 8 mg disintegrat ing tablet DISSOLVE 1 TABLET ON THE TONGUE EVERY 8 HOURS NEEDED active Not Available Not Available No t Available losartan 100 mg-hydrochl orothiazide 25 mg tablet TK 1 T PO QD 10/16 completed Not Available Not Available Not Available oxycodone-a cetaminophe n 5 mg-325 mg tablet TK 1 TO 2 TS Q 4 H FOR PAIN 10/16 completed Not Available Not Available Not Available triamcinolo ne acetonide 0.1 % dental paste APPLY A SMALL AMOUNT TO AFFECTED AREA THREE TIMES DAILY NEEDED active Not Available Not Available No t Available hydrocodone -homatropin e 5 mg-1.5 mg tablet 10/16 completed Not Available Not Available Not Available methotrexat e sodium 2.5 mg tablet TK 7 TS PO Q 7 DAYS active Not Available Not Available No t Available benzonatate 100 mg capsule 10/16 completed Not Available Not Available Not Available pantoprazol e 40 mg tablet,finesse yed release TAKE 1 TABLET BY MOUTH TWICE DAILY active Not Available Not Available No t Available naproxen sodium 550 mg tablet 04/11 completed Not Available Not Available Not Available trazodone 150 mg tablet TAKE 1 TABLET BY MOUTH EVERY NIGHT AT BEDTIME active Not Available Not Available No t Available oseltamivir 75 mg capsule 10/16 completed Not Available Not Available Not Available Gentle Laxative (bisacodyl) 5 mg tablet,finesse yed release 01/11 completed Not Available Not Available Not Available lidocaine 5 % topical patch LUANA ONE PATCH AA D FOR UP TO 12 H IN A 24 HOUR PERIOD active PRN Not Available Not Available No t Available levothyroxi ne 150 mcg tablet TAKE 1 TABLET BY MOUTH EVERY DAY active Not Available Not Available No t Available dextroamphe tamine-amph etamine 15 mg tablet TK 1 T PO BID 05/13 completed Not Available Not Available Not Available omeprazole 20 mg capsule,del ayed release TK 1 C PO BID 05/13 completed Not Available Not Available Not Available folic acid 1 mg tablet TAKE 1 TABLET BY MOUTH ONCE EVERY DAY EXCEPT FOR THE DAY OF WEEKLY METHOTREX ATE active Not Available Not Available No t Available etodolac 400 mg tablet TK 1 T PO BID PRN 05/29 completed Not Available Not Available Not Available montelukast 10 mg tablet TAKE 1 TABLET BY MOUTH EVERY DAY active Not Available Not Available No t Available Levsin/SL 0.125 mg sublingual tablet DIS 1 T UNT Q 8 H B MEALS PRN 10/16 completed Not Available Not Available Not Available levothyroxi ne 200 mcg tablet TK 1 T PO QD 09/21 completed Not Available Not Available Not Available hydrochloro thiazide 25 mg tablet TAKE 1 TABLET BY MOUTH EVERY DAY 2020 active Not Available Not Available Not Avai lable ergocalcife rol (vitamin D2) 1,250 mcg (50,000 unit) capsule TAKE 1 CAPSULE BY MOUTH EVERY WEEK active Not Available Not Available No t Available lorazepam 1 mg tablet TK 1/2 TO 1 T PO QD PRF ACUTE ANXIETY active Not Available Not Available No t Available hydroxychlo roquine 200 mg tablet TK 1 T PO BID active Not Available Not Available No t Available ondansetron 4 mg disintegrat ing tablet 04/11 completed Not Available Not Available Not Available losartan 100 mg tablet TK 1 T PO QD active Not Available Not Available No t Available fluticasone propionate 50 mcg/actuati on nasal spray,suspe nsion SHAKE LQ AND U 2 SPRAYS IEN D 11/11 completed Not Available Not Available Not Available risperidone 1 mg tablet 05/13 completed PRN Not Available Not Available Not Available dicyclomine 10 mg capsule 06/16 completed Not Available Not Available Not Available amoxicillin 875 mg-potassiu m clavulanate 125 mg tablet TK 1 T PO BID FOR 10 DAYS 10/16 completed Not Available Not Available Not Available amoxicillin 500 mg-potassiu m clavulanate 125 mg tablet TK 1 T PO TID FOR 10 DAYS 10/16 completed Not Available Not Available Not Available oxycodone 5 mg tablet 10/16 completed Not Available Not Available Not Available Laxative (bisacodyl) 5 mg tablet TK 4 TS PO WITH 8OZ OF WATER ONCE THE DAY BEFORE PROCEDURE 05/29 completed Not Available Not Available Not Available cyclobenzap rine 5 mg tablet TK 1 TO 2 TS PO TID PRN 04/05 completed Not Available Not Available Not Available Restasis 0.05 % eye drops in a dropperette INT 1 GTT INTO OU BID FOR 3 MONTHS active Not Available Not Available No t Available bupropion HCl XL 150 mg 24 hr tablet, extended release TAKE 1 TABLET BY MOUTH TWICE DAILY active Not Available Not Available No t Available ProAir HFA 90 mcg/actuati on aerosol inhaler INHALE 2 PUFFS INTO THE LUNGS EVERY 6 HOURS NEEDED active Not Available Not Available No t Available Symbicort 160 mcg-4.5 mcg/actuati on HFA aerosol inhaler INHALE 2 PUFFS INTO THE LUNGS DAILY NEEDED active Not Available Not Available No t Available carisoprodo l 250 mg tablet TK 1 T PO TID PRF 5 DAYS 05/29 completed Not Available Not Available Not Available oxycodone 10 mg tablet TK 1 T PO Q 6 H PRF PAIN FOR 7 DAYS 04/25 completed Not Available Not Available Not Available Durezol 0.05 % eye drops 10/16 completed Not Available Not Available Not Available GaviLyte-G 236 gram-22.74 gram-6.74 gram-5.86 gram oral solution MIX AND DRINK UTD 01/11 completed Not Available Not Available Not Available ketorolac 30 mg/mL injection solution Inject 1 ml IM X1 today 08/08 completed Not Available Not Available Not Available methotrexat e 2.5 mg tablet Take 5 tablets every week by oral route. 10/16 completed Not Available Not Available Not Available Spiriva Respimat 2.5 mcg/actuati on solution for inhalation INHALE 2 PUFFS INTO THE LUNGS DAILY active Not Available Not Available No t Available Fluarix Quad (PF) 60 mcg (15 mcg x 4)/0.5 mL IM syringe ADM 0.5ML IM UTD 06/16 completed Not Available Not Available Not Available Fluarix Quad (PF) 60 mcg (15 mcg x 4)/0.5 mL IM syringe ADM 0.5ML IM UTD 08/27 completed Not Available Not Available Not Available Shingrix (PF) 50 mcg/0.5 mL intramuscul ar suspension, kit ADM 0.5ML IM UTD active Not Available Not Available No t Available Afluria Qd 2018- (36 mos up)(PF)60 mcg (15 mcg x4)/0.5 mL IM syringe ADM 0.5ML IM UTD 10/20 completed Not Available Not Available Not Available Fluarix Quad (PF) 60 mcg (15 mcg x 4)/0.5 mL IM syringe ADM 0.5ML IM UTD active Not Available Not Available No t Available Vitals Date Recorded Body weight Body mass index (BMI) Body height Heart rate Systolic blood pressure Diastolic blood pressure Provider Name and Address Organization Details Last Updated DateTime 0 439080. 71 g 38.3 kg/m2 161.93 cm 84 /min 122 mm[Hg] 66 mm[Hg] [facility] 15:00:39 Date Recorded Body height Systolic blood pressure Diastolic blood pressure Provider Name and Address Organization Details Last Updated DateTime 01/02/2020 161.93 cm 153 mm[Hg] 112 mm[Hg] Darcie Samuel [facility] 01/02/2020 10:01:10 Social History Question Answer Notes LastModified by Organizat ion Details LastModified Time Tobacco Smoking Status Never Smoker ELODIA Navarro, [facility] 04/04/2016 10:05:25 What Is Your Level Of Alcohol Consumption? None Information not available 04/04/2016 What Is Your Level Of Caffeine Consumption? Moderate 2-3 Cups Of Coffee Daily Information not available 04/04/2016 How Much Tobacco Do You Chew? None Information not available 04/04/2016 What Type Of Diet Are You Following? GLUTENFREE Dairy Free Information not available 05/30/2018 Which Illicit Or Recreational Drugs Have You Used? None Information not available 04/04/2016 Do You Or Have You Ever Used E-cigarettes Or Vape? Never Used Electronic Cigarettes Information not available 10/16/2019 Education 2 Year College Informati on not available 04/11/2016 What Is Your Occupation? [employer] Information not available 04/04/2016 How Many Days In The Past Year Have You Had A Heavy Drinking Consumption (4+ Female, 5+ Male)? 0 Information not available 05/29/2017 Are There Any Guns Present In Your Home? No Information not available 04/04/2016 Live Alone Or With Others? With Others Information not available 04/04/2016 Does The Patient Have Difficulty Speaking Egyptian? No Information not available 04/11/2016 Does The Patient Have Difficulty Reading Egyptian? No Information not available 04/04/2016 Patient Has Health Care Proxy Signed And In Chart No [email or web address] Information not available 09/20/2018 Marital Status Informatio n not available 04/04/2016 Mosquito Repellent Used Routinely Yes Information not available 04/04/2016 What Was The Date Of Your Most Recent Tobacco Screening? 04/05/2020 Information not available 04/05/2020 How Many Children Do You Have? 3 Information not available 04/11/2016 Seat Belts Used Routinely Yes Information not available 04/04/2016 Are You Sexually Active? Yes Information not available 04/11/2016 Smoke Alarm In Home Yes Information not available 04/04/2016 Do You Or Have You Ever Used Smokeless Tobacco? Never Used Smokeless Tobacco Information not available 10/16/2019 How Much Tobacco Do You Smoke? No Information not available 10/16/2019 What Types Of Sporting Activities Do You Participate In? None Information not available 05/29/2017 General Stress Level Medium Information not available 05/30/2018 Do You Use Sunscreen Routinely? Yes Information not available 04/04/2016 How Many Years Have You Smoked Tobacco? 0 Information not available 10/16/2019 Sex: Unknown Functional Status None recorded. Mental Status None recorded. Family History Nothing Reported Notes:Family HX of HTN & Can cer Medical History Condition Response Hypothyroid Y RHEUMATOLOGIC Y Migraine Headaches Y Lyme Disease Y Hypertension Y Depression Y Asthma Y Gynecological History Statement/Question Response Menses Monthly N History of Abnormal Pap N Date of LMP LMP Obstetrics History GPAL:G 3 P 0 0 0 0 Immunizations Vaccine Type Date Status Note Provider Nam e and Address Organization Details Recorded Time pneumococcal polysaccharide PPV23 6 completed Not Available [facility] 10/25/2019 02:28:18 [facility]dap 6 [facility] 09:54:31 Influenza, split virus, quadrivalent, preservative 6 completed Kaci [facility] 07/19/2016 12:36:07 influenza, unspecified formulation 7 completed [place] [facility] 07/11/2017 14:16:30 influenza, unspecified formulation 8 completed [place] [facility] 07/26/2018 14:18:25 influenza, unspecified formulation 9 completed Sarah Cuba [facility] 07/25/2019 07:52:49 Past Encounters Encounter ID Performer Location Encounter Start Date Encounter Closed Date Diagnosis/Indication Diagnosis SNOMED-CT Code Diagnosis ICD10 Code [id number] VIRI Foster , [facility], [address] [place] [address] 04/04/2016 09:36:54 04/04/2016 10:41:51 Migraine 82514782 G43.216 [id number] VIRI Foster [facility], [address] [place] [address] 05/03/2016 08:41:20 05/03/2016 09:19:17 Depressive disorder 01946946 F32.9 Asthma 343440761 J45.90 9 Migraine 36398643 G43.90 9 Fatigue 30424317 R53.83 [id number] Александр Juarez MD , [facility], [address] [place] [address] 06/16/2016 13:39:29 06/19/2016 08:20:14 Greater trochanteric pain syndrome 8604597 M70.62 [id number] VIRI Foster , [facility], [address] [place] [address] 06/22/2016 14:27:31 06/23/2016 11:51:17 Adult health examination 600300519 Z00.00 Counseling 008485886 Z71 .9 Screening for malignant neoplasm of cervix 058362064 Z12.4 Neck pain 84737647 M54.2 Active or passive immunization 513000463 Z23 Hypothyroidism 35294979 E03.9 [id number] VIRI Foster , [facility], [address] [place] [address] 08/03/2016 08:02:07 08/08/2016 11:27:54 Depressive disorder 24867303 F32.9 Joint pain 56816905 M25. 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 08 J45.20 Hypothyroidism 31197557 E03.9 Screening for malignant neoplasm of colon 519827701 Z12.11 Depressive disorder 3548 9007 F32.9 [id number] Jenn Wu NP , [facility], OFFICE [address] [address] 08/27/2017 16:00:49 08/27/2017 16:40:37 Screening for disorder [id number] Z11.59 Sublingual salivary gland swelling [id number] K11.9 [id number] Александр Juarez MD , [facility], [address] [place] [address] 01/11/2018 09:53:39 01/11/2018 11:09:22 Increased frequency of urination 957001779 R35.0 [facility] 255508445 R22.1 [id number] Ld Carnes MD , [facility], [address] [place] [address] 02/07/2018 15:22:49 02/07/2018 16:06:59 Benign essential hypertension 3489987 I10 Intrinsic asthma 7951953 08 J45.20 Counseling 730047888 Z71 .9 Hypothyroidism 57672907 E03.9 Hand pain 06268600 M79.6 41 [id number] Ld Carnes MD , [facility], [address] [place] [address] 05/13/2018 15:05:59 05/13/2018 15:48:02 Neck pain 83954381 M54.2 Lymphadenopathy 20387937 R59.1 [id number] Herlinda Pascual MD , [facility], [address] [place] [address] 05/30/2018 14:47:20 05/30/2018 15:41:37 Adult health examination 507594379 Z00.00 Counseling 785873348 Z71 .9 Depression screening 171 285409 Z13.89 Benign ess ential hypertension 8404157 I10 Depressive disorder 3548 9007 F32.9 Migraine 99071209 G43.90 9 Herpes simplex 32068515 B00.9 Sj??gren's syndrome 8390 1003 M35.00 [id number] Herlinda Pascual MD , [facility], [address] [place] [address] 08/01/2018 15:24:50 08/01/2018 16:03:24 Backache 187185796 M54.9 Hypothyroidism 04216712 E03.9 Fatigue 61746821 R53.83 Migraine 08292541 G43.90 9 [id number] Ld Carnes MD , [facility], [address] [place] [address] 10/14/2018 15:45:11 10/14/2018 16:50:50 Herpes simplex 08746658 B00.9 Sj??gren's syndrome 8390 1003 M35.00 Vaginitis 36697234 N76.0 Low back pain 215729605 M54.5 [id number] VIRI Foster , [facility], [address] [place] [address] 10/16/2019 09:22:51 10/16/2019 10:07:50 Acute asthma 420928403 J45.901 Sj??gren's syndrome 8390 1003 M35.00 [id number] VIRI Foster , [facility], [address] [place] [address] 10/20/2019 10:33:46 10/20/2019 11:08:26 Urinary tract infectious disease 85252952 N39.0 Acute asthma 730352122 J 45.775 [id number] VIRI Foster , [facility], [address] [place] [address] 10/23/2019 09:28:18 10/23/2019 09:59:38 Acute asthma 358769400 J45.901 Acute bronchitis 3376523 2 J20.9 [id number] VIRI Foster, [facility], [address] [place] [address] 10/27/2019 09:24:09 10/27/2019 10:41:48 Acute asthma 738197025 J45.901 Acute bronchitis 2120194 2 J20.9 [id number] VIRI Foster, [facility], [address] [place] [address] 10/29/2019 07:57:12 10/29/2019 08:23:20 Acute asthma 632713977 J45.901 Acute bronchitis 3610883 2 J20.9 [id number] VIRI Foster , [facility], [address] [place] [address] 11/11/2019 14:40:54 11/11/2019 15:52:45 Adult health examination 964595401 Z00.00 Counseling 899869822 Z71 .9 Depression screening 171 586029 Z13.89 Screening for alcohol abuse 060330698 Z13.39 Intrinsic asthma 5750365 08 J45.20 Essential hypertension 15646716 I10 Screening for malignant neoplasm of cervix 010235972 Z12.4 Screening mammography 24 151699 Z12.31 Screening for disorder 444982883 Z11.59 Ulcer of mouth 09554337 K12.1 Depressive disorder 3548 9007 F32.9 [id number] SHAKILA Martinez, [facility], [address] [place] [address] 01/02/2020 09:58:35 01/06/2020 13:05:29 Anxiety 16788100 F41.9 Depressive disorder 6559 9007 F32.9 Sj??gren's syndrome 8390 1003 M35.00 [id number] VIRI Foster, [facility], [address] [place] [address] 01/08/2020 09:44:57 01/09/2020 15:40:05 Cough 86772238 R05 Acute asthma 084306950 J 45.825 [id number] VIRI Foster, [facility], [address] [place] [address] 02/04/2020 07:30:39 02/09/2020 10:02:08 Anxiety 39198216 F41.9 [id number] VIRI Foster, [facility], [address] [place] [address] 04/05/2020 07:45:06 04/08/2020 09:47:07 Suspected COVID-19 948878836 Z03.818 Viral disease 43789122 B 34.9 Health Concerns Section Related Observation LastModified by Organization Detai ls LastModified Time None Recorded Concern Status LastModified by Organization Details LastModified Time None Recorded Advance Directives Directive None Recorded Payers Encounter Date Sequence Insurance Name Policy Number Policy Barton Covered Member ID Barton Member ID Guarantor Name 11/11/2019 1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
[2024-10-07 09:57] LABS: MANUAL DIFF FLAG NO
[2024-10-07 11:00] LABS: Basophils Percent Auto 0.7 % (0-2); Eosinophils Absolute Auto 0.1 X10*3/uL (0.0-0.4); Eosinophils Percent Auto 1.6 % (0-4); Hematocrit 43.2 % (37.0-47.0); Hemoglobin 13.9 g/dl (12.0-16.0); Imm Gran Abs Auto 0.02 X10*3/uL (0.00-0.03); Imm Gran Pct Auto 0.4 % (0.0-0.4); Lymphocytes Absolute Auto 1.9 X10*3/uL (1.2-4.9); Lymphocytes Percent Auto 32.7 % (20-40); Mean Corpuscular HGB Conc 32.2 g/dl (31.0-35.0); Mean Corpuscular Hemoglobin 30.1 pg (27.0-33.0); Mean Corpuscular Volume 93.5 fL (80.0-98.0); Mean Platelet Volume 10.1 fL (9.4-12.3); Monocytes Absolute Auto 0.4 X10*3/uL (0.1-1.2); Monocytes Percent Auto 6.2 % (2-11); Neutrophils Absolute Auto 3.3 x10*3/uL (2.0-8.3); Neutrophils Percent Auto 58.4 % (45-73); Platelet Count 291 X10*3/uL (160-400); Red Blood Count 4.62 X10*6/uL (4.20-5.50); Red Cell Distribution Width 12.8 % (11.0-16.0); White Blood Count 5.7 X10*3/uL (4.8-10.8)
[2024-10-07 11:41] LABS: Alanine Aminotransferase 18 U/L (0-31); Albumin Level 4.2 g/dL (3.5-5.0); Alkaline Phosphatase 50 U/L (39-117); Anion Gap 11 (12-20); Aspartate Amino Transferase 21 U/L (5-31); Bilirubin Total 0.5 mg/dL (0.0-1.0); Blood Urea Nitrogen 11 mg/dL (9-16); Calcium 9.5 mg/dL (8.4-10.2); Carbon Dioxide 29 mmol/L (22-29); Chloride 106 mmol/L (96-108); Estimated Glomerular Filt Rate > 60; Glucose Random 82 mg/dL (60-115); Potassium 3.5 mmol/L (3.3-5.1); Sodium 142 mmol/L (135-145)
[2024-10-07 11:49] LABS: Creatinine Urine 379.79 mg/dL; Protein/Creatinine Ratio, Ur 0.06 (<0.2); Total Protein Urine Random 21 mg/dL (<12)
[2024-10-07 11:59] LABS: Erythrocyte Sedimentation Rate 7 MM/HR (0-20)
[2024-10-07 12:09] LABS: Free T4 (Free Thyroxine) 1.05 ng/dL (0.71-1.85); Thyroid Stimulating Hormone 0.72 uIU/mL (0.32-4.0)
[2024-10-08 05:53] LABS: Triiodothyronine T3 Free 2.8 pg/mL (2.3-4.2)
[2024-10-09 18:09] LABS: Complement C3 154 mg/dL (83-193)
== END 2024-10-07 09:34 | disposition home or self-care (01) ==
LOC: HO.LAB 09:33
PROVIDERS: Absent Provider Internal Medicine; PCP Nurse Practitioner Adult Health; Visit Provider Internal Medicine Rheumatology
DX: M32.9 Systemic lupus erythematosus, unspecified (principal); Z79.631 Long term (current) use of antimetabolite agent; M19.90 Unspecified osteoarthritis, unspecified site; E06.3 Autoimmune thyroiditis
CPT/HCPCS: 0077U; 80053; 82550; 82570; 82784; 84156; 84439; 84443; 84481; 85025; 85652; 86140; 86160

== ENCOUNTER → 2024-10-14 06:11 | Outpatient (BNV) | payer OTHER, SELFPAY | PROVIDERS: Visit Provider Radiology Diagnostic Radiology | DX: R51.9 Headache, unspecified (principal); R10.9 Unspecified abdominal pain; R05.9 Cough, unspecified; R11.2 Nausea with vomiting, unspecified | CPT/HCPCS: 70450; 71045; 74177 ==

== ENCOUNTER → 2024-10-14 10:06 | Outpatient (BNV) | payer OTHER, SELFPAY | PROVIDERS: Emergency Provider Emergency Medicine; Visit Provider Internal Medicine | DX: R94.31 Abnormal electrocardiogram [ECG] [EKG] (principal) | CPT/HCPCS: 93010 ==

== ENCOUNTER 2024-12-10 13:23 | Outpatient (REF) | payer OTHER, SELFPAY ==
[2024-12-10 13:55] LABS: MANUAL DIFF FLAG NO
[2024-12-10 16:00] LABS: Basophils Percent Auto 0.7 % (0-2); Eosinophils Absolute Auto 0.1 X10*3/uL (0.0-0.4); Eosinophils Percent Auto 1.6 % (0-4); Hematocrit 37.9 % (37.0-47.0); Hemoglobin 12.5 g/dl (12.0-16.0); Imm Gran Abs Auto 0.02 X10*3/uL (0.00-0.03); Imm Gran Pct Auto 0.4 % (0.0-0.4); Lymphocytes Percent Auto 36.8 % (20-40); Mean Corpuscular Hemoglobin 29.9 pg (27.0-33.0); Mean Corpuscular Volume 90.7 fL (80.0-98.0); Mean Platelet Volume 10.5 fL (9.4-12.3); Monocytes Absolute Auto 0.3 X10*3/uL (0.1-1.2); Monocytes Percent Auto 5.6 % (2-11); Neutrophils Percent Auto 54.9 % (45-73); Platelet Count 294 X10*3/uL (160-400); Red Blood Count 4.18 X10*6/uL (4.20-5.50); Red Cell Distribution Width 12.6 % (11.0-16.0); White Blood Count 5.5 X10*3/uL (4.8-10.8)
--- OUTSIDE RECORDS SUMMARY | 2024-12-10 16:02 | XMS_ITS | Clinical Summary ---
Author Organization [facility] Address [address] [place] [address] Care Team Providers Care It Director Name Role Phone Unavailable Primary Care Provider Unavailabl e Social History Tobacco Use Types Packs/Day Years Used Date Smoking Tobacco: Never Assessed Sex and Gender Information Value Date Recorded Sex Assigned at Not on file Gender Identity Not on file Sexual Orientation Not on file Plan of Treatment Health Maintenance Due Date Last Done Comments Hepatitis C Virus Screening 1962 HIV Screening 1975 DTaP/Tdap/Td Vaccines (1 - Tdap) 1981 Pneumococcal Vaccines 50+ (1 of 1 - PCV) 2012 Zoster (Shingles) Vaccine (1 of 2) 2012 COVID-19 Vaccine ( - 2023-2 5 season) 2024 RSV Vaccine 60 years and old er and Patients (1 - 1-dose 75+ series) 2037 Hepatitis B Vaccines Aged Out No long er eligible based on patient's age to complete this topic
--- OUTSIDE RECORDS SUMMARY | 2024-12-10 16:02 | XMS_ITS | Data Portability ---
Author Organization [facility], [facility] Address [address] [place] [address] Care Team Providers Care Disk Operator Name Role Phone HAJA LA Airplane Pilot Crop Dusting JUANIS SEARS Kitchen Chef KEITH TAFOYA Senior Technical Trainer KAITLIN HICKS Stockroom Attendant COLLEEN GARBER General Surgeon MISAEL MURPHY Airplane Pilot Crop Dusting HERLINDA PASCUAL Primary Care Provider Assessment Encounter Date Assessment Date Assessment LastModified by Organization Details LastModified Time 01/02/2020 01/02/2020 Patient agreed t o this visit via phone or secure telehealth platform due to the COVID -19 pandemic. Patient understands this is a scheduled visit and the usual procedures with regard to billing and confidentiality apply. Patient was notified that the provider location is [facility] Patient location: home During the visit the patient? s medical history and medical record were reviewed. The patient was notified to call our office for worsening or urgent symptoms. [email or web address] Not available 01/02/2020 12:52:07 Plan of Treatment Reminders Order Date Submit Date Provider Last Modified By Organization Details Last Modified Time Details Appointments None recorded . Lab pap, LB + HPV 2019 020 [facility] (Pathology), [address] [place] [address], [id number], 0 09:26:53 Referral None recorded . Procedures None recorded . Surgeries None recorded . Imaging MAMMO, screenin g, digital, bilatera l 2019 020 [place] [facility], [address] [place], [address], 0 09:41:07 Medication Orders lorazepa m 1 mg tablet 2019 020 [facility] #[id number], [address], [place], [id number], 0 07:49:40 Hydromet 5 mg-1.5 mg/5 mL oral syrup 2019 020 [facility] #[id number], [address], [place], [id number], 0 07:33:02 lorazepa m 1 mg tablet 2019 020 [facility] #[id number], [address], [place], [id number], 0 11:48:02 Patient TargetsNo targets recorded. Patient Instructions Encounter Date Encounter Id Patient Instructions Last Modified By Organization Details Last Modified Time 11/11/2019 [id number] high blood pressure: care instructions Not available [...] weight . Discussion greater than 7.5 minutes. Not available 11/11/2019 15:06:10 01/02/2020 [id number] After a discussion of treatment options, which included consideration of best practices and patient preferences, the above treatment plan and objectives were adopted as above. 100% of today's 25 min visit spent counseling or coordinating care carlos Not available 01/02/2020 12:52:00 01/08/2020 [id number] Patient agreed to this visit via phone or secure telehelath platform due to the COVID-19 pandemic. Patient understands this is a scheduled visit and the usual procedures with regard to billing and confidentiality apply. Patient was notified that the provider location is [facility]. Patient location: Home During the visit the patient's medical history and medical record were reviewed. The patient was notified to call our office for worsening or urgent symptoms and to schedule an in person visit if necessary. 25 min visit: 50 % of time spent providing counseling & instruction. Not available 01/08/2020 15:27:41 02/04/2020 [id number] anxiety disorder: care instructions Not available 02/06/2020 13:46:41 Patient agreed to this visit via phone or secure telehelath platform due to the COVID-19 pandemic. Patient understands this is a scheduled visit and the usual procedures with regard to billing and confidentiality apply. Patient was notified that the provider location is [facility]. Patient location: Home During the visit the patient's medical history and medical record were reviewed. The patient was notified to call our office for worsening or urgent symptoms and to schedule an in person visit if necessary. Not available 02/06/2020 13:46:22 04/05/2020 [id number] Patient agreed to this visit via phone or secure telehelath platform due to the COVID-19 pandemic. Patient understands this is a scheduled visit and the usual procedures with regard to billing and confidentiality apply. Patient was notified that the provider location is [facility]. Patient location: Home During the visit the [...] ick glu UA NEGATI VE Not Available [facility] [address] [place] [address], [address], 10/20/2019 10:50:38 10/20/19 20 10/20/2019 urina lysis , dipst ick clarity UA CLEAR Not Available [facility] [address] [place] [address], [address], 10/20/2019 10:50:38 10/20/19 20 10/20/2019 urina lysis , dipst ick uro UA 0.2000 Not Available [facility] [address] [place] [address], [address], 10/20/2019 10:50:38 10/20/19 20 10/20/2019 urina lysis , dipst ick ket UA 1+ abnormal Not Available [facility] [address] [place] [address], [address], 10/20/2019 10:50:38 10/20/19 20 10/20/2019 urina lysis , dipst ick pro UA TRACE abnormal Not Available [facility] [address] [place] [address], [address], 10/20/2019 10:50:38 10/20/19 20 10/20/2019 urina lysis , dipst ick nit UA NEGATI VE Not Available [facility] [address] [place] [address], [address], 10/20/2019 10:50:38 10/20/19 20 10/20/2019 urina lysis , dipst ick raimundo UA TRACE abnormal Not Available [facility] [address] [place] [address], [address], 10/20/2019 10:50:38 10/20/19 20 10/20/2019 urina lysis , dipst ick pH UA 5.5000 Not Available [facility] [address] [place] [address], [address], 10/20/2019 10:50:38 10/20/19 20 10/20/2019 urina lysis , dipst ick SG UA >=1.03 00 Not Available [facility] [address] [place] [address], [address], 10/20/2019 10:50:38 10/20/19 20 10/20/2019 urina lysis , dipst ick color UA DARK YELLOW Not Available [facility] [address] [place] [address], [address], 10/20/2019 10:50:38 10/20/19 20 10/20/2019 urina lysis , dipst ick blo UA NEGATI VE Not Available [facility] [address] [place] [address], [address], 10/20/2019 10:50:38 10/20/19 20 10/20/2019 urina lysis , dipst ick balbir UA NEGATI VE Not Available [facility] [address] [place] [address], [address], 10/20/2019 10:50:38 10/20/19 20 10/22/2019 cultu re, urine culture, urine, routine CULTU RE, URINE , ROUTI NE Micro Numbe r: [id number] Test Statu s: Final Speci men [...] ng perfo rmed. 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 Clini gabbie corre latio n is advis ed. This HPV test was perfo rmed at [facility] [place], 57 [...] LIQUI D BASED SPECI MEN Not Available [facility] (Outpatient) [address] [place] [address], [address], 11/27/2019 09:26:53 12/12/19 20 12/12/2019 CBC w/ auto diff WBC 4.78 K/uL 4.00-1 1.00 Note Refer ence Range updat es to all CBC and Diffe renti al resul ts. Not Available [facility] (Outpatient) [address] [place] [address], [address], 12/12/2019 18:55:14 12/12/19 20 12/12/2019 CBC w/ auto diff RBC 4.38 M/uL 3.72-5 .30 Not Available [facility] (Outpatient) [address] [place] [address], [address], 12/12/2019 18:55:14 12/12/19 20 12/12/2019 CBC w/ auto diff HGB 13.8 g/dL 11.4-1 5.9 Note updat ed Refer ence Range s for all CBC and Diffe renti al resul ts. Not Available [facility] (Outpatient) [address] [place] [address], [address], 12/12/2019 18:55:14 12/12/19 20 12/12/2019 CBC w/ auto diff HCT 41.7 % 34.2-4 6.8 Not Available [facility] (Outpatient) [address] [place], [address], 12/12/2019 18:55:14 12/12/19 20 12/12/2019 CBC w/ auto diff plt 248 K/uL 140-43 0 Not Available [facility] (Outpatient) [address] [place], [address], 12/12/2019 18:55:14 12/12/19 20 12/12/2019 CBC w/ auto diff MCV 95.2 fL 78.0-9 7.0 Not Available [facility] (Out[facility]) [address] [place], [address], 12/12/2019 18:55:14 12/12/19 20 12/12/2019 CBC w/ auto diff MCH 31.5 pg 25.0-3 3.0 Not Available [facility] (Out[facility]) [address] [place], [address], 12/12/2019 18:55:14 12/12/19 20 12/12/2019 CBC w/ auto diff MCHC 33.1 g/dL 32.0-3 6.0 Not Available [facility] (Out[facility]) [address] [place], [address], 12/12/2019 18:55:14 12/12/19 20 12/12/2019 CBC w/ auto diff RDW 13.6 % 11.0-1 6.0 Not Available [facility] (Out[facility]) [address] [place], [address], 12/12/2019 18:55:14 12/12/19 20 12/12/2019 CBC w/ auto diff MPV 10.7 fL 8.4-12 .8 Not Available [facility] (Out[facility]) [address] [place], [address], 12/12/2019 18:55:14 12/12/19 20 12/12/2019 CBC w/ auto diff NRBC 0.00 /100_ WBCs 0 Not Available [facility] (Out[facility]) [address] [place], [address], 12/12/2019 18:55:14 12/12/19 20 12/12/2019 CBC w/ auto diff absolute NRBC 0.00 K/uL 0 Not Available [facility] (Out[facility]) [address] [place], [address], 12/12/2019 18:55:14 12/12/19 20 12/12/2019 CBC w/ auto diff diff method Auto Not Available [facility] (Out[facility]) [address] [place], [address], 12/12/2019 18:55:14 12/12/19 20 12/12/2019 CBC w/ auto diff neuts 49.9 % 43.0-7 5.0 Not Available [facility] (Out[facility]) [address] [place], [address], 12/12/2019 18:55:14 12/12/19 20 12/12/2019 CBC w/ auto diff lymphs 40.6 % 18.2-4 7.4 Not Available [facility] ([facility]) [address] [place], [address], 12/12/2019 18:55:14 12/12/19 20 12/12/2019 CBC w/ auto diff monos 6.5 % 4.00-1 1.00 Not Available [facility] (Out[facility]) [address] [place], [address], 12/12/2019 18:55:14 12/12/19 20 12/12/2019 CBC w/ auto diff eos 1.3 % 0.0-8. 0 Not Available [facility] (Outpatient) [address] [place], [address], 12/12/2019 18:55:14 12/12/19 20 12/12/2019 CBC w/ auto diff basos 1.5 % 0.0-2. 0 Not Available [facility] (Out[facility]) [address] [place], [address], 12/12/2019 18:55:14 12/12/19 20 12/12/2019 CBC w/ auto diff granulocytes , immature (%) 0.2 % 0.0-0. 9 Not Available [facility] (Out[facility]) [address] [place], [address], 12/12/2019 18:55:14 12/12/19 20 12/12/2019 CBC w/ auto diff absolute neuts 2.39 K/uL 1.80-7 .70 Not Available [facility] (Out[facility]) [address] [place], [address], 12/12/2019 18:55:14 12/12/19 20 12/12/2019 CBC w/ auto diff absolute lymphs 1.94 K/uL 1.00-3 .10 Not Available [facility] (Out[facility]) [address] [place], [address], 12/12/2019 18:55:14 12/12/19 20 12/12/2019 CBC w/ auto diff absolute monos 0.31 K/uL 0.20-0 .80 Not Available [facility] ([facility]) [address] [place], [address], 12/12/2019 18:55:14 12/12/19 20 12/12/2019 CBC w/ auto diff absolute eos 0.06 K/uL 0.00-0 .80 Not Available [facility] (Out[facility]) [address] [place], [address], 12/12/2019 18:55:14 12/12/19 20 12/12/2019 CBC w/ auto diff absolute basos 0.07 K/uL 0.00-0 .09 Not Available [facility] (Out[facility]) [address] [place], [address], 12/12/2019 18:55:14 12/12/19 20 12/12/2019 CBC w/ auto diff granulocytes , immature 0.01 K/uL 0.00-0 .05 Not Available [facility] ([facility]) [address] [place], [address], 12/12/2019 18:55:14 12/12/19 20 12/12/2019 eryth rocyt e sedim entat ion rate by dustin jaime metho d ESR 6 mm/h 0-30 Not Available [facility]) [address] [place], [address], 12/12/2019 19:18:44 12/12/19 20 12/12/2019 CMP, serum or plasm a sodium 137 mmol/ L 133-14 6 Not Available [facility] ([facility]) [address] [place], [address], 12/12/2019 19:59:58 12/12/19 20 12/12/2019 CMP, serum or plasm a potassium 3.8 mmol/ L 3.3-5. 1 Not Available [facility] (Out[facility]) [address] [place], [address], 12/12/2019 19:59:58 12/12/19 20 12/12/2019 CMP, serum or plasm a chloride 98 mmol/ L 96-108 Not Available [facility] (Out[facility]) [address] [place], [address], 12/12/2019 19:59:58 12/12/19 20 12/12/2019 CMP, serum or plasm a CO2 28 mmol/ L 21-35 Not Available [facility] ([facility]) [address] [place], [address], 12/12/2019 19:59:58 12/12/19 20 12/12/2019 CMP, serum or plasm a BUN 11 mg/dL 6-19 Not Available [facility] ([facility] [address] [place], [address], 12/12/2019 19:59:58 12/12/19 20 12/12/2019 CMP, serum or plasm a creatinine 0.80 mg/dL 0.5-1. 5 Not Available [facility] ([facility] [address] [place], [address], 12/12/2019 19:59:58 12/12/19 20 12/12/2019 CMP, serum or plasm a glucose 92 mg/dL 70-99 Not Available [facility] ([facility]) [address] [place], [address], 12/12/2019 19:59:58 12/12/19 20 12/12/2019 CMP, serum or plasm a albumin 4.5 g/dL 3.9-4. 8 Not Available [facility] ([facility] [address] [place], [address], 12/12/2019 19:59:58 12/12/19 20 12/12/2019 CMP, serum or plasm a total protein 7.1 g/dL 6.5-8. 0 Not Available [facility] ([facility]) [address] [place], [address], 12/12/2019 19:59:58 12/12/19 20 12/12/2019 CMP, serum or plasm a calcium 10.0 mg/dL 8.4-10 .3 Not Available [facility] ([facility]) [address] [place], [address], 12/12/2019 19:59:58 12/12/1912/12/2019 CMP, serum or plasm a alkaline phosphatase 52 U/L 39-117 Not Available [facility] (Out[facility]) [address] [place], [address], 12/12/2019 19:59:58 12/12/19 20 12/12/2019 CMP, serum or plasm a total bilirubin 0.3 mg/dL 0.0-1. 2 Not Available [facility] ([facility]) [address] [place] [address], [address], 12/12/2019 19:59:58 12/12/19 20 12/12/2019 CMP, serum or plasm a AST 20 U/L 0-37 Not Available [facility]) [address] [place] [address], [address], 12/12/2019 19:59:58 12/12/19 20 12/12/2019 CMP, serum or plasm a ALT 8 U/L 0-40 Not Available [facility] ([facility]) [address] [place] [address], [address], 12/12/2019 19:59:58 12/12/19 20 12/12/2019 CMP, serum or plasm a globulin 2.6 g/dL 1-4.8 Not Available [facility] (Out[facility]) [address] [place], [address], 12/12/2019 19:59:58 12/12/19 20 12/12/2019 CMP, serum or plasm a eGFR 82 mL/mi n/1.7 3m2 >59 If patie nt is black , multi ply resul t by 1.159 . Estim ated glome rular filtr ation rate calcu lated using the CKD-E PI equat ion. Not Available [facility] ([facility] [address] [place], [address], 12/12/2019 19:59:58 12/12/19 20 12/12/2019 CMP, serum or plasm a anion gap 15 mmol/ L 10-20 Not Available [facility] (Out[facility]) [address] [place], [address], 12/12/2019 19:59:58 12/12/19 20 12/12/2019 C-gunnar ctive prote in, quant itati ve, serum or plasm a C reactive protein 0.4 mg/L 0.0-4. 0 Not Available [facility] (Out[facility]) [address] [place], [address], 12/12/2019 20:00:00 12/12/19 20 12/12/2019 T4, free, serum free T4 1.1 NG/dL 0.9-1. 7 Not Available [facility] ([facility] [address] [place], [address], 12/12/2019 20:00:01 12/12/19 20 12/12/2019 T3, free, serum or plasm a free T3 3.6 pg/mL 2.0-4. 4 Not Available [facility] ([facility] [address] [place], [address], 12/12/2019 20:00:02 12/12/19 20 12/12/2019 TSH, serum or plasm a TSH 0.49 uIU/m L 0.27-4 .20 Not Available [facility] [address] [place], [address], 12/12/2019 20:00:03 12/12/19 20 12/15/2019 thyro globu gamaliel antib francisco thyroglobuli n antibody, S <1.8 IU/mL <4.0 (NOTE ) ----- ----- ----- ----A DDITI ONAL INFOR MATIO N---- ----- ----- ----- The thyro globu gamaliel antib francisco testi ng metho d is an immun oenzy matic assay manuf actur ed by [employer] and perfo rmed on the Unice l DXI 800. Value s obtai landry from diffe rent assay metho ds or kits may be diffe rent and canno t be used inter saldaña elise . The resul ts canno t be inter prete d as absol citizen [place] evide nce for the prese nce or absen ce of malig nant disea se. Not Available [facility] ([facility] [address] [place], [address], 12/15/2019 15:48:25 12/12/19 20 12/15/2019 thyro id perox idase (tpo) Ab, serum thyroperoxid ase Ab, S 21.2 IU/mL <9.0 high Not Available [facility] (Out[facility]) [address] [place], [address], 12/15/2019 15:48:27 12/12/19 20 12/16/2019 C3 (comp lemen t), serum or plasm a C3 123 mg/dL 81-157 Not Available [facility] (Out[facility] [address] [place], [address], 12/16/2019 09:45:42 12/12/19 20 12/16/2019 C4 (comp lemen t), serum or plasm a C4 25 mg/dL 12-39 Not Available [facility] ([facility] [address] [place], [address], 12/16/2019 09:45:44 04/13/20 20 04/14/2020 SARS CoV [...] ostic s websi te: www.Q uestD iagno [employer] .com/ Covid 19. For addit ional infor giovana bone e refer to http: //luda lipscombque stdia gnost ics.c om/fa q/FAQ 219 (This link is being provi ded for infor giovana nal/e ducat ional purpo ses only. ) Not Available [facility] [place] [facility] [address], [place], [address], 04/14/2020 21:24:19 10/15/19 20 10/15/2019 xr chest [...] flu. Cough x 1 month WARNER ESCALANTE [facility] [address] [facility], [place], [address], 10/15/2019 17:15:20 10/16/19 20 10/15/2019 XR, chest [...] Lema MD 0 Final result WARNER ESCALANTE [email or web address] [facility] [address] [place], [address], 11/04/2019 22:34:53 07/27/20 21 07/27/2021 MAMMO tierney No observ ation record ed. [email or web address] [facility] [address] [place], [address], 07/27/2021 20:49:12 Result Notes None recorded. Problems Name Problem SNOMED Code Status Onset Date Resolution Date Notes Provider Name and Address Organization Details Recorded Time Asthma 111161758 Active 2015 [place], [address], [facility] 6 19:38:17 Essential hypertensi on 83985965 Active 2015 [place], [address], [facility] 6 19:39:04 Hypothyroi dism 32756956 Active 2015 [place], [address], [facility] 6 19:39:20 Depressive disorder 31251555 Active 2015 [place], [address], [facility] 19:39:46 Anemia 313984531 Active 2015 [place], [address], [facility] 6 19:40:01 Joint problem Active 2015 VIRI Foster [address] [place], [place] [address]F[place], [address], [facility] 6 19:40:33 Sj??gren's syndrome 88828706 Active 2015 VIRI Foster [address] [place], [place] [address], [address], [facility] 6 19:40:45 Lyme disease 25454046 Active 2015 VIRI Foster [address] [place], [place] [address], [address], [facility] 6 19:40:59 Myesha-Ba rr virus disease 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 Roseanna Michaels LPN null, [facility] 2 13:13:02 Problem Notes None recorded. Procedures Surgical History Date Name Laterality Status Provider Name and Address Organization Details Recorded Time 11/15/19 21 prevention-cardi ovascular risk reduction counseling cancelled [facility] 11/15/2020 14:41:23 11/15/19 21 prevention-patiua l alcohol misuse screening cancelled [facility] 11/15/2020 14:41:23 11/15/19 21 Asthma Control Test (12 + years old) cancelled [facility] 11/15/2020 14:41:45 11/11/19 20 prevention-cardi ovascular risk reduction counseling completed Sarah Cuba [facility] 11/11/2019 14:49:30 11/11/19 20 prevention-leda huff alcohol misuse screening completed Sarah Cuba [facility] 11/11/2019 14:49:30 10/27/19 20 Nebulizer Tx completed Pati Ford LPN [facility] 10/27/2019 10:05:37 02/08/20 18 Asthma Control Test (12 + years old) completed Darcie Samuel [facility] 02/07/2018 15:33:09 01/12/20 18 POC Urinalysis Testing completed Suzi Alexandra [facility] 01/11/2018 09:59:24 05/29/20 17 Asthma Control Test (12 + years old) completed VIRI Foster [address] [place] [address], [address], [facility] 05/29/2017 14:19:29 06/16/20 16 Trochanteric Bursa Injection completed Александр Juarez MD [address] [place], [address], [facility] 06/16/2016 21:20:10 02/15/20 16 completed VIRI Foster [address] [place] [address], [address], [facility] 04/11/2016 19:35:54 02/14/19 95 completed VIRI Foster [address] [place] [address], [address], [facility] 04/11/2016 19:34:24 01/04/19 92 completed VIRI Foster [address] [place], [address], [facility] 04/11/2016 19:34:47 06/29/19 89 completed VIRI Foster [address] [place] [address], [address], [facility] 04/11/2016 19:35:07 Imaging Results Imaging Date Name Status LastModified by Organiz ation Details LastModified Time 10/15/2019 xr chest Pa and lateral 2 views completed [address] [facility] [address] [place], [address], 10/15/2019 17:15:20 10/15/2019 XR, chest, 2 view completed BAR[employer] Information not available 10/16/2019 09:27:01 11/04/2019 xr chest Pa and lateral [address] views completed [address] [facility] [address] [place], [address], 11/04/2019 22:34:53 07/27/2021 MAMMO, screening completed [address] [facility] [address] [place], [address], 07/27/2021 20:49:12 Procedure Notes None recorded. Medical Equipment None Reported. 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 71 g 38.3 kg/m2 161.93 cm 84 /min 122 mm[Hg] 66 mm[Hg] Sarah Cuba [facility] 0 15:00:39 Date Recorded Body height Systolic blood pressure Diastolic blood pressure Provider Name and Address Organization Details Last Updated DateTime 01/02/2020 161.93 cm 153 mm[Hg] 112 mm[Hg] Darcie Samuel [facility] 01/02/2020 10:01:10 Social History Question Answer Notes LastModified by Organizat ion Details LastModified Time Tobacco Smoking Status Never Smoker ELODIA Navarro, [facility] 04/04/2016 10:05:25 What Is Your Level Of [...] Others? With Others Information not available 04/04/2016 Patient Has Health [...] [employer] 10/25/2019 02:28:18 Tdap 6 completed ELODIA Navarro, [facility] 06/19/2016 09:54:31 Influenza, split virus, quadrivalent, preservative 6 [facility] 12:36:07 influenza, unspecified formulation 7 completed Darcie GonzalezJEAN CLAUDE [facility] 07/11/2017 14:16:30 influenza, unspecified formulation 8 completed [facility] CLAU[facility] 07/26/2018 14:18:25 influenza, unspecified formulation 9 completed ASHER RodríguezGarcia [facility] 07/25/2019 07:52:49 Past Encounters Encounter ID Performer Location Encounter Start Date Encounter Closed Date Diagnosis/Indication Diagnosis SNOMED-CT Code Diagnosis ICD10 Code Diagnosis Note [id number] VIRI Foster , [facility], [address] [place] [address] 04/04/2016 09:36:54 04/04/2016 10:41:51 Migraine 65557531 G43.909 At length discussion regarding medication s best used to treat migraines. Will not prescribe Vicodin for migraines at this time. Discussed using Imitrex as she has been using in the past at onset of migraine s/s. has agreed to try Fioricet when Imitrex is not effective. Discussed use of this medication as well as potential adverse SE. Needs to schedule for PHA. [id number] VIRI Foster , [facility], [address] [place] [address] 05/03/2016 08:41:20 05/03/2016 09:19:17 Depressive disorder 93950833 F32.9 Continue on Sertraline 100 mg/d. continue w/MH therapy Asthma 469808888 J45.90 9 med reordered Migraine 03829557 G43.90 9 med reordered Fatigue 33786689 R53.83 Discussed reasons for her s/s of fatigue, most likely related to situation stress at work and home as well as arms symptoms of depression which have increased due to stressful situations . At length discussion regarding need to take care of self. Advised increased fluids to prevent dehydratio n. Follow-up as needed. Patient agrees. [id number] Александр Juarez MD , [facility], [address] [place] [address] 06/16/2016 13:39:29 06/19/2016 08:20:14 Greater trochanteric pain syndrome 4053451 M70.62 heat s/p injection [id number] VIRI Foster, [facility], [address] [place] [address] 06/22/2016 14:27:31 06/23/2016 11:51:17 Adult health examination 758307730 Z00.00 see Risk Assessment and Lifestyle Change Counseling section above56 yo f seen for PHA, pelvic & Pap done, labs ordered, mammogram ordered, colonoscop y is UTD, HCM needs discussed. Counseling 553793942 Z71 .9 Screening for malignant neoplasm of cervix 085438393 Z12.4 Neck pain 82874671 M54.2 Discussed a referral to PT-ordered . Active or passive immunization 721731059 Z23 Hypothyroidism 54243995 E03.9 [id number] VIRI Foster, [facility], [address] [place] [address] 08/03/2016 08:02:07 08/08/2016 11:27:54 Depressive disorder 37596433 F32.9 Continue w/MH therapy Add bupropion as written Joint pain 54907408 M25. 50 Giv Ketorolac 30 mg Im now, continue w/Gabapent in as ordered & Lidocaine patches PRN. Advised to f/u w/Rheumato logist Recurrent mouth ulcers 862033965 K12.0 Meds reordered as written below per pt. request [id number] VIRI Foster, [facility], [address] [place] [address] 04/25/2017 13:59:10 04/25/2017 15:11:11 Muscle spasm of cervical muscle of neck 1410239988 04 M62.838 Muscle relaxer ordered as ordered below for short term use. Advised to see PT-refersue richards Return PRN Depressive disorder 3548 9007 F32.9 At length discussion regarding her emotional needs, advised to take care of herself-be tter food choices, exercise, & continue seeing therapist. [id number] VIRI Foster [facility], [address] [place] [address] 05/29/2017 13:26:43 05/29/2017 14:33:56 Adult health examination 622060592 Z00.00 see Risk Assessment and Lifestyle Change Counseling section above57 yo f seen for PHA, Pap is UTD,, labs ordered, mammogram is UTD, needs colonoscop y, HCM needs discussed. Counseling 390450079 Z71 .9 Benign ess ential hypertension 5615256 I10 Blood pressure at goal Intrinsic asthma 9523906 08 J45.20 INTERMITTE NT Asthma- Based on history, physical assessment and peak flow the patients asthma is in control. Will continue the present medication s and follow-up in 6 months. The asthma action plan has been discussed. The patient verbalizes understand ing medication use.. The patient is in agreement with this plan. Hypothyroidism 17356718 E03.9 check TSh Screening for malignant neoplasm of colon 853702246 Z12.11 Referral for a DIRECT booked colonoscop y. This patient is a healthy ASA Class 1 or 2 patient (only mild systemic disease), or a STABLE, well controlled insulin dependent diabetic. They do not have serious cardiac disease ie SC/angiopl asty within 1 year, symptomati c CHF; renal failure with CKD 4 or 5; take Coumadin, Plavix, Aggrenox, etc. Depressive disorder 3548 9007 F32.9 At length discussion regarding her emotional needs, advised to take care of herself-be tter food choices, exercise, & continue seeing therapist. [id number] Jenn Wu NP , [facility], [address] [place] [address] 08/27/2017 16:00:49 08/27/2017 16:40:37 Screening for disorder 553142616 Z11.59 Sublingual salivary gland swelling 640903683 K11.9 persistent , swelling R sideworsen ing,imagin g modality of choice is CTreferred for scannot benefit from any analgesicw ill refer to ENT too [id number] Александр Juarez MD , [facility], [address] [place] [address] 01/11/2018 09:53:39 01/11/2018 11:09:22 Increased frequency of urination 712411395 R35.0 no sign of infection Mass of armstrong bmental region 178067528 R22.1 no sign of infection- eval/rheum atologist- imaging test scheduled [id number] Ld Carnes MD FP, [facility], [address] [place] [address] 02/07/2018 15:22:49 02/07/2018 16:06:59 Benign essential hypertension 0065197 I10 Blood pressure at goal, continue on Losartan 100 mg-HCTZ 25 mg/d. F/U in 6 m. Intrinsic asthma 0986796 08 J45.20 INTERMITTE NT Asthma- Based on history, physical assessment and peak flow the patients asthma is in control. Will continue the present medication s and follow-up in 6 months. The asthma action plan has been discussed. The patient verbalizes understand ing medication use.. The patient is in agreement with this plan. Counseling 454040460 Z71 .9 Hypothyroidism 92298938 E03.9 check TSH Hand pain 85153993 M79.6 41 R hand, refer to Dr. Maradiaga [id number] Ld Carnes MD , [facility], [address] [place] [address] 05/13/2018 15:05:59 05/13/2018 15:48:02 Neck pain 85931046 M54.2 Will obtain an x-ray w/further treatment pending results, rest, elevate, ice & Tylenol as directedTI D w/food. Lymphadenopathy 79938925 R59.1 ? etiology, will obtain an US of neck [id number] Herlinda Pascual MD , [facility], [address] [place] [address] 05/30/2018 14:47:20 05/30/2018 15:41:37 Adult health examination 885847864 Z00.00 see Risk Assessment and Lifestyle Change Counseling section above58 yo f seen for PHA, Pap is UTD,, labs ordered, mammogram is UTD, colonoscop y is UTD, HCM needs discussed. Counseling 222067633 Z71 .9 Depression screening 171 455328 Z13.89 depression screening tool administer ed, entered into emr, scored and discussed, time greater than 7.5 minutes Benign ess ential hypertension 9271249 I10 Blood pressure at goal. continue on Losartan 100 mg-HCTZ 25 mg/d Depressive disorder 4405 9867 F32.9 At length discussion regarding her emotional needs, advised to take care of herself-be tter food choices, exercise, & continue seeing therapist. Migraine 96638327 G43.90 9 meds reordered Herpes simplex 66851079 B00.9 med reordered Sj??gren's syndrome 8390 1003 M35.00 Under the care of Rheumatolo gy [id number] Herlinda Pascual MD , [facility], [address] [place] [address] 08/01/2018 15:24:50 08/01/2018 16:03:24 Backache 973725058 M54.9 Hypothyroidism 56230084 E03.9 check TSH Fatigue 97869295 R53.83 Discussed reasons for her s/s of fatigue, most likely related to situation stress at work and home as well as arms symptoms of depression which have increased due to stressful situations . At length discussion regarding need to take care of self. Advised increased fluids to prevent dehydratio n. Follow-up as needed. Patient agrees. Migraine 25675164 G43.90 9 meds reordered [id number] Ld Carnes MD , [facility], [address] [place] [address] 10/14/2018 15:45:11 10/14/2018 16:50:50 Herpes simplex 15549407 B00.9 med reordered Sj??gren's syndrome 8390 1003 M35.00 Under the care of Rheumataudrey gy Vaginitis 86919091 N76.0 Diflucan ordered as written below Low back pain 981037425 M54.5 PT referral done [id number] VIRI Foster , [facility], [address] [place] [address] 10/16/2019 09:22:51 10/16/2019 10:07:50 Acute asthma 927059278 J45.901 Start prednisone taper as written below. Push fluids, continue with inhalers, nebulizer and hydromet oral syrup. Follow up on Sunday. Work note given to be out until then. Sj??gren's syndrome 8390 1003 M35.00 Under the care of Mallory gy [id number] VIRI Foster , [facility], [address] [place] [address] 10/20/2019 10:33:46 10/20/2019 11:08:26 Urinary tract infectious disease 03910310 N39.0 Patient instructed to push fluids, to follow up for persistent or worsening symptoms or fever or back pain. POC positive but will wait to treat until culture comes back. Acute asthma 878489239 J 45.901 Start zithromax as written below. Take with a probiotic. Continue on prednisone taper as prescribed , do not stay on 60 mg/d, start the taper. Push fluids, continue with inhalers, nebulizer and hydromet oral syrup. Follow up on . Work note given until further notice. [id number] VIRI Foster, [facility], [address] [place] [address] 10/23/2019 09:28:18 10/23/2019 09:59:38 Acute asthma 971315054 J45.901 Continue on prednisone taper as prescribed . Push fluids, continue with inhalers, nebulizer and hydromet oral syrup. Follow up on Sunday. Work note stands until further notice; gave a new note today. Acute bronchitis 8846920 2 J20.9 Probable bronchitis related to viral illness. Continue w/nebulize r treatments as directed. [id number] VIRI Foster, [facility], [address] [place] [address] 10/27/2019 09:24:09 10/27/2019 10:41:48 Acute asthma 870417130 J45.901 Prednisone taper prescribed as written below based off of previous prescripti on by Dr. Hicks. Gatito gutierrez his office for urgent appointmen t. Work note given. Follow up on Sunday. Acute bronchitis 3412057 2 J20.9 Probable bronchitis related to viral illness. Continue w/nebulize r treatments as directed. [id number] VIRI Foster, [facility], [address] [place] [address] 10/29/2019 07:57:12 10/29/2019 08:23:20 Acute asthma 616876429 J45.901 Continue on prednisone taper as prescribed by Dr. Zendejas. Work note given to start back on Sunday for half days next week. Follow up if symptoms persist or worsen. Acute bronchitis 8157917 2 J20.9 Probable bronchitis related to viral illness. Continue w/nebulize r treatments as directed. [id number] VIRI Foster, [facility], [address] [place] [address] 11/11/2019 14:40:54 11/11/2019 15:52:45 Adult health examination 310372226 Z00.00 See Risk Assessment and Lifestyle Change Counseling section above59 yo f seen for PHA, Pap & pelvic performed today, labs ordered. Mammogram due & Colonoscop y is UTD (due in 2026). HCM needs discussed. Counseling 517910335 Z71 .9 including cardiovasc ular risk reduction counseling Depression screening 171 844342 Z13.89 Depression screening tool administer ed, entered into emr, scored and discussed, time greater than 7.5 minutes Screening for alcohol abuse 165086040 Z13.39 Intrinsic asthma 8087372 08 J45.20 INTERMITTE NT Asthma- Based on history, physical assessment and peak flow the patients asthma is in control. Will continue the present medication s and follow-up in 6 months. The asthma action plan has been discussed. The patient verbalizes understand ing medication use.. The patient is in agreement with this plan. Essential hypertension 23020143 I10 BP @ goal. Cont. on HCTZ 25 mg/d & Losartan 100 mg/d. Screening for malignant neoplasm of cervix 315448699 Z12.4 Screening mammography 24 313491 Z12.31 Screening for disorder 590695892 Z11.59 Ulcer of mouth 61837269 K12.1 Unresolved oral ulceration s, will check for HSV. Depressive disorder 3548 9007 F32.9 At length discussion regarding her emotional needs, advised to take care of herself-be tter food choices, exercise, & continue seeing therapist. continue on Sertraline 100 mg/d. 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 Advised to use sparingly. Depressive disorder 3548 9007 F32.9 stable on bupropion and sertraline at this timeActive with BH Sj??gren's syndrome 8390 1003 M35.00 with lung involvemen twell controlled , under care of Rheumataudrey plascencia plaquenil qd per Dr Lashawn gale [id number] VIRI Foster, [facility], [address] [place] [address] 01/08/2020 09:44:57 01/09/2020 15:40:05 Cough 18763405 R05 Awaiting Covid-19 test results, will order cough med as she has used in the past. Acute asthma 663635255 J 45.901 Questionab le. If Covid-19 testing is neg. will consider prescribin g high dose of Prednisone as she has required in past. Advised to continue w/inhalers : Symbicort, Ventolin & Spiriva via nebulizer. Plan to f/u pending Covid-19 result & 8-20 or sooner PRN [id number] VIRI Foster, [facility], [address] [place] [address] 02/04/2020 07:30:39 02/09/2020 10:02:08 Anxiety 08871172 F41.9 Refilled. Discussed importance of using this med sparingly & potential for abuse. Discussed alternativ e coping methods. [id number] VIRI Foster, [facility], [address] [place] [address] 04/05/2020 07:45:06 04/08/2020 09:47:07 Suspected COVID-19 809333257 Z03.818 requesting Covid antibody testing based on having had several episodes of viral illnesses over the past 3-4 months. Viral disease 09345526 B 34.9 Having a Covid-19 test today.Incr ease fluids,Res t.Will await results of Covid-19 test for further treatment. Health Concerns Section Related Observation LastModified by Organization Detai ls LastModified Time None Recorded Concern Status LastModified by Organization Details LastModified Time None Recorded Advance Directives Directive None Recorded Payers Encounter Date Sequence Insurance Name Policy Number Policy Barton Covered Member ID Barton Member ID Guarantor Name 11/11/2019 1 [facility] [id number] 31 Herlinda Monge [id number] Herlinda Monge 01/02/2020 1 [facility] ([facility]) [id number] 31 Herlinda Monge [id number] Herlinda Monge 01/08/2020 1 [facility] [id number] 31 Herlinda Monge [id number] Herlinda Monge 02/04/2020 1 [facility] [id number] 31 Herlinda Monge [id number] Herlinda Monge 04/05/2020 1 [facility] [id number] 31 Herlinda Monge [id number] Herlinda Mnoge Notes Date Note Type Note Provider Name [...] normal appetite; no changes in productivityVMG HypertensionReported bypatient.Duration:[facility] 10-year risk Control:Patient understands medications are to [...] come & go w/ a burning sensation. Warner Donaldson, NURSING MANAGER [address] [place] [address], [phone], [facility] 11/11/2019 22:07:30 0 text/html 59 yo F [...] sadGood fam support. Maddie Valadez PA-C [address] [place], [address], [facility] 01/02/2020 12:52:34 0 text/html VMG URI Flu like SymptomsReported bypatient.Duration:starte d 2 days ago Severity:Symptoms are persisting Associated Symptoms:highest fever 99-100;Fatigue and malaise;Headache;congesti on;Non productive cough;Shortness of breath;Diarrhea(about 4 days ago); chest pressure Context:Sick contacts at work VVHX of asthma & Sjogren's Syndrome-has required treatment w/ high doses of Prednisone in the past.Works for [employer], tested for Covid-19 yesterday AM-awaiting results. 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 Gets outside for walks when she can. VIRI Foster [address] [place], [address], [facility] 02/06/2020 13:46:45 0 text/html VMG URI Flu like SymptomsReported bypatient.Duration:starte d 4 days ago Severity:moderate; Symptoms are persisting Associated Symptoms:highest fever greater than 102;Fatigue and malaise;Headache;Signific ant muscle aches;congestion;Non productive cough;Shortness of breath;Chest pain with deep breath;Diarrhea(3 days); chest pressure Context:Sick contacts at work Modifying factors:No relief with OTC medication Warner Donaldson, VIRI [address] [place] [address], [phone], [facility] 04/05/2020 08:12:46 OBGyn Episode No OBEpisode recorded.
[2024-12-10 16:28] LABS: Alanine Aminotransferase 12 U/L (0-31); Albumin Level 4.1 g/dL (3.5-5.0); Anion Gap 11 (12-20); Aspartate Amino Transferase 23 U/L (5-31); Bilirubin Total 0.5 mg/dL (0.0-1.0); Blood Urea Nitrogen 12 mg/dL (9-16); C Reactive Protein 0.11 mg/dL (< or = 0.50); Calcium 9.8 mg/dL (8.4-10.2); Carbon Dioxide 30 mmol/L (22-29); Chloride 103 mmol/L (96-108); Estimated Glomerular Filt Rate > 60; Glucose Random 82 mg/dL (60-115); Potassium 3.2 mmol/L (3.3-5.1); Sodium 141 mmol/L (135-145); Total Protein 7.1 g/dL (6.5-8.0)
[2024-12-10 16:31] LABS: Alkaline Phosphatase 52 U/L (39-117)
[2024-12-10 16:44] LABS: Free T4 (Free Thyroxine) 1.27 ng/dL (0.71-1.85)
[2024-12-10 16:54] LABS: Erythrocyte Sedimentation Rate 10 MM/HR (0-20)
[2024-12-10 17:01] LABS: Creatinine Urine 249.88 mg/dL; Protein/Creatinine Ratio, Ur 0.06 (<0.2); Total Protein Urine Random 15 mg/dL (<12)
[2024-12-11 13:13] LABS: Complement C3 140 mg/dL (83-193)
[2024-12-11 13:58] LABS: Triiodothyronine T3 Free 3.3 pg/mL (2.3-4.2)
== END 2024-12-10 13:24 | disposition home or self-care (01) ==
LOC: HO.LAB 13:23
PROVIDERS: Absent Provider Internal Medicine; PCP Nurse Practitioner Adult Health; Referring Provider Internal Medicine; Visit Provider Internal Medicine Rheumatology
DX: E06.3 Autoimmune thyroiditis (principal); M32.9 Systemic lupus erythematosus, unspecified; M35.00 Sjogren syndrome, unspecified; M19.90 Unspecified osteoarthritis, unspecified site; Z79.631 Long term (current) use of antimetabolite agent
CPT/HCPCS: 80053; 82550; 82570; 82784; 84156; 84439; 84443; 84481; 85025; 85652; 86140; 86160

== ENCOUNTER 2025-02-04 07:19 | Outpatient (REF) | payer OTHER, SELFPAY ==
--- NOTE | ~2025-02-04 | MR_ITS ---
EXAMINATION: MRI LEFT KNEE WITHOUT CONTRAST HISTORY: LEFT KNEE PAIN CHRONIC OA SUSPECTED COMPARISON: Relation is made with plain films of the left knee performed the same day. TECHNIQUE: Coronal T1 and fat-suppressed proton density, sagittal proton density and fat-suppressed proton density, and axial fat suppressed T2 weighted MR images of the left knee were obtained. FINDINGS: Bone marrow: There are subchondral marrow changes involving the medial compartment related to osteoarthritis (see below). Bone marrow signal intensity is otherwise normal. Joint effusion: There is a small to moderate suprapatellar joint effusion. Franco's cyst: There is a moderate-sized Franco's cyst. Articular cartilage: There is severe osteoarthritis of the medial compartment with cartilage loss, osteophyte formation, and subchondral marrow changes. There is mild thinning of the patellar cartilage. Muscles/soft tissues: The visualized muscles demonstrate normal signal intensity. Anterior cruciate ligament: Intact Posterior cruciate ligament: Intact Medial collateral ligament: Intact Lateral collateral ligament: Intact Medial meniscus: There is extrusion of the body medial meniscus, which is markedly irregular in shape and demonstrates multiple foci of increased T2 signal intensity. Findings are compatible with a degenerative tear. Lateral meniscus: Intact Flexor mechanism: The popliteus, gastrocnemius, and hamstring tendons are intact. Quadriceps tendon: Intact Patellar tendon: Intact Patellar retinacula: Intact MR/MR knee LT wo con IMPRESSION: 1. Severe osteoarthritis of the medial compartment as described. Mild thinning of the patellar cartilage. 2. Small to moderate suprapatellar joint effusion. Moderate Franco's cyst. 3. Findings consistent with a degenerative tear of the body of the medial meniscus. Electronically signed by: Yovani Barry MD 02/05/2025 08:13 AM EDT
--- NOTE | ~2025-02-04 | XR_ITS ---
EXAMINATION: XR KNEE 3 VIEWS LEFT HISTORY: PRIMARY OSTEOARTHRITIS OF BOTH KNEES COMPARISON: There are no prior studies available for comparison. FINDINGS: Three views of the left knee are submitted. Osseous mineralization is normal. There is no fracture or dislocation. There is severe osteoarthritis of the medial compartment, with joint space narrowing and osteophyte formation. There is mild degenerative change of the patellofemoral compartment. The soft tissues are unremarkable. There is no joint effusion. XR/XR knee LT 3V IMPRESSION: Osteoarthritis of the left knee as described. Electronically signed by: Yovani Barry MD 02/06/2025 08:08 AM EDT
--- OUTSIDE RECORDS SUMMARY | 2025-02-04 07:22 | XMS_ITS | Data Portability ---
Author Organization [facility], [facility] Address [address] [place] [address] Care Team Providers Care Bulk Station Operator Name Role Phone HAJA [employer] Employee JUANIS SEARS Resourcing Advisor [phone] KEITH TAFOYA Chief Yeoman KAITLIN HICKS Embroiderer Hand COLLEEN GARBER General Surgeon MISAEL MURPHY [employer] Employee [phone] HERLINDA PASCUAL Primary Care Provider Assessment Encounter Date Assessment Date Assessment LastModified by Organization Details LastModified Time 01/02/2020 01/02/2020 Patient agreed t o this visit via phone or secure telehealth platform due to the COVID -19 pandemic. Patient understands this is a scheduled visit and the usual procedures with regard to billing and confidentiality apply. Patient was notified that the provider location is [facility] Patient location: home During the [...] Lab pap, LB + HPV 2019 020 [facility] (Pathology), [address] [place] [address], [address], 0 09:26:53 Referral None recorded . Procedures None recorded . Surgeries None recorded . Imaging MAMMO, screenin g, digital, bilatera l 2019 020 [facility], [address], [place], [address], 0 09:41:07 Medication Orders lorazepa m 1 mg tablet 2019 020 [facility][id number], [address], [place], [id number], 0 07:49:40 Hydromet 5 mg-1.5 mg/5 mL oral solution 2019 020 aforesteire [facility] #[id number], [address], [place], [id number], 0 07:33:02 lorazepa m 1 mg tablet 2019 020 INTERFACE [facility] #[id number], [address], [place], [id number], 0 11:48:02 Patient TargetsNo targets recorded. Patient Instructions Encounter Date Encounter Id Patient Instructions Last Modified By Organization Details Last Modified Time 11/11/2019 [id number] high blood pressure: care instructions Not available [...] weight . Discussion greater than 7.5 minutes. [email or web address] Not available 11/11/2019 15:06:10 01/02/2020 [id number] After a discussion of treatment options, which included consideration of best practices and patient preferences, the above treatment plan and objectives were adopted as above. 100% of today's 25 min visit spent counseling or coordinating care carlos Not available 01/02/2020 12:52:00 01/08/2020 [id number] Patient agreed to this visit via phone or secure telehelath platform due to the COVID-19 pandemic. Patient understands this is a scheduled visit and the usual procedures with regard to billing and confidentiality apply. Patient was notified that the provider location is [facility]. Patient location: Home During the visit the patient's medical history and medical record were reviewed. The patient was notified to call our office for worsening or urgent symptoms and to schedule an in person visit if necessary. 25 min visit: 50 % of time spent providing counseling & instruction. Not available 01/08/2020 15:27:41 02/04/2020 [id number] anxiety disorder: care instructions Not available 02/06/2020 13:46:41 Patient agreed to this visit via phone or secure telehelath platform due to the COVID-19 pandemic. Patient understands this is a scheduled visit and the usual procedures with regard to billing and confidentiality apply. Patient was notified that the provider location is [facility]. Patient location: Home During the visit the patient's medical history and medical record were reviewed. The patient was notified to call our office for worsening or urgent symptoms and to schedule an in person visit if necessary. Not available 02/06/2020 13:46:22 04/05/2020 [id number] Patient agreed to this visit via phone or secure telehelath platform due to the COVID-19 pandemic. Patient understands this is a scheduled visit and the usual procedures with regard to billing and confidentiality apply. Patient was notified that the provider location is [facility]. Patient location: Home During the [...] ick glu UA NEGATI VE Not Available [facility] [address] [place] [address], [address], 10/20/2019 10:50:38 10/20/19 20 10/20/2019 urina lysis , dipst ick clarity UA CLEAR Not Available [facility] [address] [place] [address], [address], 10/20/2019 10:50:38 10/20/19 20 10/20/2019 urina lysis , dipst ick uro UA 0.2000 Not Available [facility] [address] [place] [address], [address], 10/20/2019 10:50:38 10/20/19 20 10/20/2019 urina lysis , dipst ick ket UA 1+ abnormal Not Available [facility] [address] [place] [address], [address], 10/20/2019 10:50:38 10/20/19 20 10/20/2019 urina lysis , dipst ick pro UA TRACE abnormal Not Available [facility] [address] [place] [address], [address], 10/20/2019 10:50:38 10/20/19 20 10/20/2019 urina lysis , dipst ick nit UA NEGATI VE Not Available [facility] [address] [place] [address], [address], 10/20/2019 10:50:38 10/20/19 20 10/20/2019 urina lysis , dipst ick raimundo UA TRACE abnormal Not Available [facility] [address] [place] [address], [address], 10/20/2019 10:50:38 10/20/19 20 10/20/2019 urina lysis , dipst ick pH UA 5.5000 Not Available [facility] [address] [place] [address], [address], 10/20/2019 10:50:38 10/20/19 20 10/20/2019 urina lysis , dipst ick SG UA >=1.03 00 Not Available [facility] [address] [place] [address], [address], 10/20/2019 10:50:38 10/20/19 20 10/20/2019 urina lysis , dipst ick color UA DARK YELLOW Not Available [facility] [address] [place] [address], [address], 10/20/2019 10:50:38 10/20/19 20 10/20/2019 urina lysis , dipst ick blo UA NEGATI VE Not Available [facility] [address] [place] [address], [address], 10/20/2019 10:50:38 10/20/19 20 10/20/2019 urina lysis , dipst ick balbir UA NEGATI VE Not Available [facility] [address] [place] [address], [address], 10/20/2019 10:50:38 10/20/19 20 10/22/2019 cultu re, urine culture, urine, routine CULTU RE, URINE , ROUTI NE Micro Numbe r: [id number] Test Statu s: Final Speci men [...] ng perfo rmed. Not Available [facility] [place] [facility] [address], [place], [address], 10/22/2019 08:19:25 11/11/1911/27/2019 pap, LB + HPV path report [facility] [place] [address] Tel [employer]ING [employer] Cytol ogy Repor t Acces migue #: [...] This HPV test was perfo rmed at [facility] [place], [address] [facility]. This test has been FDA appro cathi for SureP ath cervi gabbie cytol ogy speci mens. The accur acy and preci migue of this test for all other speci men sourc es has been verif ied in the [facility] [place] and [...] LIQUI D BASED SPECI MEN Not Available [facility] [address] [place] [address], [address], 11/27/2019 09:26:53 12/12/19 20 12/12/2019 CBC w/ auto diff WBC 4.78 K/uL 4.00-1 1.00 Note Refer ence Range updat es to all CBC and Diffe renti al resul ts. Not Available [facility] ([facility]) [address] [place] [address], [address], 12/12/2019 18:55:14 12/12/19 20 12/12/2019 CBC w/ auto diff RBC 4.38 M/uL 3.72-5 .30 Not Available [facility] ([facility]) [address] [place] [address], [address], 12/12/2019 18:55:14 12/12/19 20 12/12/2019 CBC w/ auto diff HGB 13.8 g/dL 11.4-1 5.9 Note updat ed Refer ence Range s for all CBC and Diffe renti al resul ts. Not Available [facility] ([facility]) [address] [place] [address], [address], 12/12/2019 18:55:14 12/12/19 20 12/12/2019 CBC w/ auto diff HCT 41.7 % 34.2-4 6.8 Not Available [facility] [address] [place], [address], 12/12/2019 18:55:14 12/12/19 20 12/12/2019 CBC w/ auto diff plt 248 K/uL 140-43 0 Not Available [facility]) [address] [place], [address], 12/12/2019 18:55:14 12/12/19 20 12/12/2019 CBC w/ auto diff MCV 95.2 fL 78.0-9 7.0 Not Available [facility]) [address] [place], [address], 12/12/2019 18:55:14 12/12/19 20 12/12/2019 CBC w/ auto diff MCH 31.5 pg 25.0-3 3.0 Not Available [facility] [address] [place], [address], 12/12/2019 18:55:14 12/12/19 20 12/12/2019 CBC w/ auto diff MCHC 33.1 g/dL 32.0-3 6.0 Not Available [facility]) [address] [place], [address], 12/12/2019 18:55:14 12/12/19 20 12/12/2019 CBC w/ auto diff RDW 13.6 % 11.0-1 6.0 Not Available [facility] [address] [place], [address], 12/12/2019 18:55:14 12/12/19 20 12/12/2019 CBC w/ auto diff MPV 10.7 fL 8.4-12 .8 Not Available [facility] [address] [place], [address], 12/12/2019 18:55:14 12/12/19 20 12/12/2019 CBC w/ auto diff NRBC 0.00 /100_ WBCs 0 Not Available [facility] [address] [place], [address], 12/12/2019 18:55:14 12/12/19 20 12/12/2019 CBC w/ auto diff absolute NRBC 0.00 K/uL 0 Not Available [facility] [address] [place], [address], 12/12/2019 18:55:14 12/12/19 20 12/12/2019 CBC w/ auto diff diff method Auto Not Available [facility] [address] [place], [address], 12/12/2019 18:55:14 12/12/19 20 12/12/2019 CBC w/ auto diff neuts 49.9 % 43.0-7 5.0 Not Available [facility] [address] [place], [address], 12/12/2019 18:55:14 12/12/19 20 12/12/2019 CBC w/ auto diff lymphs 40.6 % 18.2-4 7.4 Not Available [facility] [address] [place], [address], 12/12/2019 18:55:14 12/12/19 20 12/12/2019 CBC w/ auto diff monos 6.5 % 4.00-1 1.00 Not Available [facility] [address] [place], [address], 12/12/2019 18:55:14 12/12/19 20 12/12/2019 CBC w/ auto diff eos 1.3 % 0.0-8. 0 Not Available [facility] [address] [place], [address], 12/12/2019 18:55:14 12/12/19 20 12/12/2019 CBC w/ auto diff basos 1.5 % 0.0-2. 0 Not Available [facility] [address] [place], [address], 12/12/2019 18:55:14 12/12/19 20 12/12/2019 CBC w/ auto diff granulocytes , immature (%) 0.2 % 0.0-0. 9 Not Available [facility] [address] [place], [address], 12/12/2019 18:55:14 12/12/19 20 12/12/2019 CBC w/ auto diff absolute neuts 2.39 K/uL 1.80-7 .70 Not Available [facility] [address] [place], [address], 12/12/2019 18:55:14 12/12/19 20 12/12/2019 CBC w/ auto diff absolute lymphs 1.94 K/uL 1.00-3 .10 Not Available [facility] [address] [place], [address], 12/12/2019 18:55:14 12/12/19 20 12/12/2019 CBC w/ auto diff absolute monos 0.31 K/uL 0.20-0 .80 Not Available [facility] [address] [place], [address], 12/12/2019 18:55:14 12/12/19 20 12/12/2019 CBC w/ auto diff absolute eos 0.06 K/uL 0.00-0 .80 Not Available [facility] [address] [place], [address], 12/12/2019 18:55:14 12/12/19 20 12/12/2019 CBC w/ auto diff absolute basos 0.07 K/uL 0.00-0 .09 Not Available [facility] [address] [place], [address], 12/12/2019 18:55:14 12/12/19 20 12/12/2019 CBC w/ auto diff granulocytes , immature 0.01 K/uL 0.00-0 .05 Not Available [facility] [address] [place], [address], 12/12/2019 18:55:14 12/12/19 20 12/12/2019 eryth rocyt e sedim entat ion rate by dustin jaime metho d ESR 6 mm/h 0-30 Not Available [facility] [address] [place], [address], 12/12/2019 19:18:44 12/12/19 20 12/12/2019 CMP, serum or plasm a sodium 137 mmol/ L 133-14 6 Not Available [facility] [address] [place], [address], 12/12/2019 19:59:58 12/12/19 20 12/12/2019 CMP, serum or plasm a potassium 3.8 mmol/ L 3.3-5. 1 Not Available [facility] [address] [place], [address], 12/12/2019 19:59:58 12/12/19 20 12/12/2019 CMP, serum or plasm a chloride 98 mmol/ L 96-108 Not Available [facility] [address] [place], [address], 12/12/2019 19:59:58 12/12/19 20 12/12/2019 CMP, serum or plasm a CO2 28 mmol/ L 21-35 Not Available [facility] [address] [place], [address], 12/12/2019 19:59:58 12/12/19 20 12/12/2019 CMP, serum or plasm a BUN 11 mg/dL 6-19 Not Available [facility] [address] [place], [address], 12/12/2019 19:59:58 12/12/19 20 12/12/2019 CMP, serum or plasm a creatinine 0.80 mg/dL 0.5-1. 5 Not Available [facility] [address] [place], [address], 12/12/2019 19:59:58 12/12/19 20 12/12/2019 CMP, serum or plasm a glucose 92 mg/dL 70-99 Not Available [facility] [address] [place], [address], 12/12/2019 19:59:58 12/12/19 20 12/12/2019 CMP, serum or plasm a albumin 4.5 g/dL 3.9-4. 8 Not Available [facility] [address] [place], [address], 12/12/2019 19:59:58 12/12/19 20 12/12/2019 CMP, serum or plasm a total protein 7.1 g/dL 6.5-8. 0 Not Available [facility] [address] [place], [address], 12/12/2019 19:59:58 12/12/1912/12/2019 CMP, serum or plasm a calcium 10.0 mg/dL 8.4-10 .3 Not Available [facility] [address] [place], [address], 12/12/2019 19:59:58 12/12/1912/12/2019 CMP, serum or plasm a alkaline phosphatase 52 U/L 39-117 Not Available [facility] [address] [place], [address], 12/12/2019 19:59:58 12/12/19 20 12/12/2019 CMP, serum or plasm a total bilirubin 0.3 mg/dL 0.0-1. 2 Not Available [facility] [address] [place] [address], [address], 12/12/2019 19:59:58 12/12/19 20 12/12/2019 CMP, serum or plasm a AST 20 U/L 0-37 Not Available [facility] [address] [place] [address], [address], 12/12/2019 19:59:58 12/12/19 20 12/12/2019 CMP, serum or plasm a ALT 8 U/L 0-40 Not Available [facility] [address] [place] [address], [address], 12/12/2019 19:59:58 12/12/19 20 12/12/2019 CMP, serum or plasm a globulin 2.6 g/dL 1-4.8 Not Available [facility] [address] [place] [address], [address], 12/12/2019 19:59:58 12/12/19 20 12/12/2019 CMP, serum or plasm a eGFR 82 mL/mi n/1.7 3m2 >59 If patie nt is black , multi ply resul t by 1.159 . Estim ated glome rular filtr ation rate calcu lated using the CKD-E PI equat ion. Not Available [facility] [address] [place] [address], [address], 12/12/2019 19:59:58 12/12/19 20 12/12/2019 CMP, serum or plasm a anion gap 15 mmol/ L 10-20 Not Available [facility] [address] [place] [address], [address], 12/12/2019 19:59:58 12/12/19 20 12/12/2019 C-gunnar ctive prote in, quant itati ve, serum or plasm a C reactive protein 0.4 mg/L 0.0-4. 0 Not Available [facility] [address] [place], [address], 12/12/2019 20:00:00 12/12/19 20 12/12/2019 T4, free, serum free T4 1.1 NG/dL 0.9-1. 7 Not Available [facility] [address] [place], [address], 12/12/2019 20:00:01 12/12/19 20 12/12/2019 T3, free, serum or plasm a free T3 3.6 pg/mL 2.0-4. 4 Not Available [facility] [address] [place], [address], 12/12/2019 20:00:02 12/12/19 20 12/12/2019 TSH, serum or plasm a TSH 0.49 uIU/m L 0.27-4 .20 Not Available [facility] [address] [place], [address], 12/12/2019 20:00:03 12/12/19 20 12/15/2019 thyro globu gamaliel antib francisco thyroglobuli n antibody, S <1.8 IU/mL <4.0 (NOTE ) ----- ----- ----- ----A DDITI ONAL INFOR MATIO N---- ----- ----- ----- The thyro globu gamaliel antib francisco testi ng metho d is an immun oenzy matic assay manuf actur ed by Barry mckenna [employer] and perfo adeliaed on the Unice l DXI 800. Value s obtai landry from diffe rent assay metho ds or kits may be diffe rent and canno t be used inter saldaña elise . The resul ts canno t be inter prete d as absol kasaan evide nce for the prese nce or absen ce of wyatt snowden se. Not Available [facility] [address] [place], [address], 12/15/2019 15:48:25 12/12/19 20 12/15/2019 thyro id perox idase (tpo) Ab, serum thyroperoxid ase Ab, S 21.2 IU/mL <9.0 high Not Available [facility] [address] [place], [address], 12/15/2019 15:48:27 12/12/19 20 12/16/2019 C3 (comp lemen t), serum or plasm a C3 123 mg/dL 81-157 Not Available [facility] [address] [place], [address], 12/16/2019 09:45:42 12/12/19 20 12/16/2019 C4 (comp lemen t), serum or plasm a C4 25 mg/dL 12-39 Not Available [facility] [address] [place], [address], 12/16/2019 09:45:44 04/13/20 20 04/14/2020 SARS CoV [...] weeks follo wing seroc onver migue. Negat palbo resul ts do not precl ude acute [...] other possi ble cause s. Pleas e wen w the Fact Sheet s avail able [...] (EUA) for use by autho rized labor kevini es. The FDA autho rized label ing is avail able on the [facility] websi te: www.Q uestD iagno Agency Spotters .com/ Covid 19. For addit ional infor giovana bone e refer to http: //luda sheehan stdia gnost ics.c om/fa q/FAQ 219 (This link is being provi ded for infor giovana nal/e ducat ional purpo ses only. ) Not Available [facility] [place] [facility] [address] [place] [address] B, [place], [address], 04/14/2020 21:24:19 10/15/19 20 10/15/2019 xr chest [...] flu. Cough x 1 month WARNER ESCALANTE [facility] [address] [facility], [place], [address], 10/15/2019 17:15:20 10/16/19 20 10/15/2019 XR, chest [...] Beata Lema MD 0 Final result WARNER ALVARO ESCALANTE [email or web address] [facility] [address] [place], [address], 11/04/2019 22:34:53 07/27/2007/27/2021 MAMMO , tierney skelton No observ ation record ed. [email or web address] [facility] [address] [place], [address], 07/27/2021 20:49:12 Result Notes None recorded. Problems Name Problem SNOMED Code Status Onset Date Resolution Date Notes Provider Name and Address Organization Details Recorded Time Asthma 820245116 Active 2015 [place], [address], [facility] 19:38:17 Essential hypertensi on 49076293 Active 2015 [place], [address], [facility] 6 19:39:04 Hypothyroi dism 81455454 Active 2015 [place], [address], [facility] 19:39:20 Depressive disorder 24591708 Active 2015 [place], [address], [facility] 19:39:46 Anemia 519784394 Active 2015 VIRI Foster [place], [address], [facility] 6 19:40:01 Joint problem Active 2015 VIRI Foster [address] [place], [place] [address]Fernandojulieta [place], [address], [facility] 6 19:40:33 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 VIRI Foster [address] [place], [place] [address]Gary[place], [address], [facility] 6 19:40:45 Lyme disease 66465387 Active 2015 VIRI Foster [address] [place], [place] [address]Gary[place], [address], [facility] 6 19:40:59 Myesha-Ba rr virus disease 605857733 Active 2015 VIRI Foster [address] [place] [address] [place], [address], [facility] 6 19:41:15 Herpes simplex 58650464 Active 2017 VIRI Foster [address] [place], [place] [address]Garyju[place], [address], [facility] 8 10:40:56 Morbid obesity 363407508 Active 2021 BMI > or = 35 plus diagnosis of HTN. Roseanna Michaels LPN null, [facility] 2 13:13:02 Problem Notes None recorded. Procedures Surgical History Date Name Laterality Status Provider Name and Address Organization Details Recorded Time 11/15/19 21 prevention-cardi ovascular risk reduction counseling cancelled [facility] 11/15/2020 14:41:23 11/15/19 21 prevention-annua l alcohol misuse screening cancelled [facility] 11/15/2020 14:41:23 11/15/19 21 Asthma Control Test (12 + years old) cancelled [facility] 11/15/2020 14:41:45 11/11/19 20 prevention-cardi ovascular risk reduction counseling completed Sarah Cuba [facility] 11/11/2019 14:49:30 11/11/19 20 prevention-leda huff alcohol misuse screening completed Sarah Cuba [facility] 11/11/2019 14:49:30 10/27/19 20 Nebulizer Tx completed Pati Ford LPN [facility] 10/27/2019 10:05:37 02/08/20 18 Asthma Control Test (12 + years old) completed Darcie Samuel [facility] 02/07/2018 15:33:09 01/12/20 18 POC Urinalysis Testing completed Suzi Alexandra [facility] 01/11/2018 09:59:24 05/29/20 17 Asthma Control Test (12 + years old) completed VIRI Foster [address] [place] [address], [address], [facility] 05/29/2017 14:19:29 06/16/20 16 Trochanteric Bursa Injection completed Александр Juarez MD [address] [place], [address], [facility] 06/16/2016 21:20:10 02/15/20 16 completed VIRI Foster [address] [place], [address], [facility] 04/11/2016 19:35:54 02/14/19 95 completed VIRI Foster [address] [place], [address], [facility] 04/11/2016 19:34:24 01/04/19 92 completed VIRI Foster [address] [place], [address], [facility] 04/11/2016 19:34:47 06/29/19 89 completed VIRI Foster [address] [place], [address], [facility] 04/11/2016 19:35:07 Imaging Results Imaging Date Name Status LastModified by Organiz ation Details LastModified Time 10/15/2019 xr chest Pa and lateral 2 views completed [address] [facility] [address] [place], [address], 10/15/2019 17:15:20 10/15/2019 XR, chest, 2 view completed BARCODE Information not available 10/16/2019 09:27:01 11/04/2019 xr chest Pa and lateral 2 views completed [address] [facility] [address] [place], [address], 11/04/2019 22:34:53 07/27/2021 MAMMO, screening completed [address] [facility] [address] [place], [address], 07/27/2021 20:49:12 Procedure Notes None recorded. Medical Equipment None Reported. Allergies Allergen ID Allergen Name Allergen Category Reaction Reaction Severity Criticality Documentation Date Start Date Code Code System Note Provider Name and Address Organization Details Recorded Time 605529 codeine medicatio n Not available Not available Not available 04/04/2016 2670 RxNorm vomit Maryam Means CLINICAL PROGRAM CONSULTANT null, [facility] 6 09:54:14 367377 Celebrex medicatio n rash Not available Not available 04/04/2016 73471 7 RxNorm Maryam Means CLINICAL PROGRAM CONSULTANT null, [facility] 6 09:53:56 744519 Zantac medicatio n itching Not available Not available 04/04/2016 89617 3 RxNorm Maryam Means CLINICAL PROGRAM CONSULTANT null, [facility] 6 09:54:40 698291 Keflex medicatio n irregular heart rate Not available Not available 04/04/201634052 7 RxNorm Maryam Means CLINICAL PROGRAM CONSULTANT null, [facility] [facility] 09:55:12 Medications Name Sig Start Date Stop Date Status Note LastModified by Organization Details LastModified Time Hydromet 5 mg-1.5 mg/5 mL oral solution TK 5ML PO Q 4 H PRN [...] Address Organization Details Last Updated DateTime 0 928017. 71 g 38.3 kg/m2 161.93 cm 84 /min 122 mm[Hg] 66 mm[Hg] Sarah Cuba CMA-A [facility] 0 15:00:39 Date Recorded Body height Systolic blood pressure Diastolic blood pressure Provider Name and Address Organization Details Last Updated DateTime 01/02/2020 161.93 cm 153 mm[Hg] 112 mm[Hg] [facility]/02/2020 10:01:10 Social History Question Answer Notes LastModified by Organizat ion Details LastModified Time Tobacco Smoking Status [facility] 10:05:25 What Is Your Level Of [...] available 04/11/2016 What Is Your Occupation? ELODIA [email or web address] Information not available 04/04/2016 How Many Days [...] of Abnormal Pap N Date of LMP Obstetrics History GPAL:G 3 P 0 0 0 0 Immunizations Vaccine Type Date Status Note Provider Nam e and Address Organization Details Recorded Time pneumococcal polysaccharide PPV23 6 completed Not Available [employer] 10/25/2019 02:28:18 Tdap 6 completed ELODIA Navarro, [facility] 06/19/2016 09:54:31 Influenza, split virus, quadrivalent, preservative 6 [facility] 07/19[facility]2016 12:36:07 influenza, unspecified formulation 7 completed Darcie GonzalezJEAN CLAUDE [facility] 07/11/2017 14:16:30 influenza, unspecified formulation 8 completed [facility] 07/26/2018 14:18:25 influenza, unspecified formulation 9 completed ASHER RodríguezGarcia [facility] 07/25/2019 07:52:49 Past Encounters Encounter ID Performer Location Encounter Start Date Encounter Closed Date Diagnosis/Indication Diagnosis SNOMED-CT Code Diagnosis ICD10 Code Diagnosis Note [id number] VIRI Foster , [facility], [address] [place] [address] 04/04/2016 09:36:54 04/04/2016 10:41:51 Migraine 40772127 G43.909 At length discussion regarding medication s best used to treat migraines. Will not prescribe Vicodin for migraines at this time. Discussed using Imitrex as she has been using in the past at onset of migraine s/s. has agreed to try Fioricet when Imitrex is not effective. Discussed use of this medication as well as potential adverse SE. Needs to schedule for PHA. [id number] VIRI Foster , [facility], [address] [place] [address] 05/03/2016 08:41:20 05/03/2016 09:19:17 Depressive disorder 04400711 F32.9 Continue on Sertraline 100 mg/d. continue w/MH therapy Asthma 093110332 J45.90 9 med reordered Migraine 36481645 G43.90 9 med reordered Fatigue 50611497 R53.83 Discussed reasons for her s/s of fatigue, most likely related to situation stress at work and home as well as arms symptoms of depression which have increased due to stressful situations . At length discussion regarding need to take care of self. Advised increased fluids to prevent dehydratio n. Follow-up as needed. Patient agrees. [id number] Александр Juarez MD , [facility], [address] [place] [address] 06/16/2016 13:39:29 06/19/2016 08:20:14 Greater trochanteric pain syndrome 9877450 M70.62 heat s/p injection [id number] VIRI Foster, [facility], [address] [place] [address] 06/22/2016 14:27:31 06/23/2016 11:51:17 Adult health examination 787165772 Z00.00 see Risk Assessment and Lifestyle Change Counseling section above56 yo f seen for PHA, pelvic & Pap done, labs ordered, mammogram ordered, colonoscop y is UTD, HCM needs discussed. Counseling 233773567 Z71 .9 Screening for malignant neoplasm of cervix 678334739 Z12.4 Neck pain 90322414 M54.2 Discussed a referral to PT-ordered . Active or passive immunization 502315087 Z23 Hypothyroidism 76574266 E03.9 [id number] VIRI Foster, [facility], [address] [place] [address] 08/03/2016 08:02:07 08/08/2016 11:27:54 Depressive disorder 28343740 F32.9 Continue w/MH therapy Add bupropion as written Pain of joint 36661895 M 25.50 Giv Ketorolac 30 mg Im now, continue w/Gabapent in as ordered & Lidocaine patches PRN. Advised to f/u w/Rheumato logist Recurrent mouth ulcers 519851016 K12.0 Meds reordered as written below per pt. request [id number] VIRI Foster [facility], [address] [place] [address] 04/25/2017 13:59:10 04/25/2017 15:11:11 Muscle spasm of cervical muscle of neck 8656004553 04 M62.838 Muscle relaxer ordered as ordered below for short term use. Advised to see PT-refersue richards Return PRN Depressive disorder 3548 9007 F32.9 At length discussion regarding her emotional needs, advised to take care of herself-be tter food choices, exercise, & continue seeing therapist. [id number] VIRI Foster [facility], [address] [place] [address] 05/29/2017 13:26:43 05/29/2017 14:33:56 Adult health examination 540695631 Z00.00 see Risk Assessment and Lifestyle Change Counseling section above57 yo f seen for PHA, Pap is UTD,, labs ordered, mammogram is UTD, needs colonoscop y, HCM needs discussed. Counseling 458651197 Z71 .9 Benign ess ential hypertension 0460808 I10 Blood pressure at goal Intrinsic asthma 5677563 08 J45.20 INTERMITTE NT Asthma- Based on history, physical assessment and peak flow the patients asthma is in control. Will continue the present medication s and follow-up in 6 months. The asthma action plan has been discussed. The patient verbalizes understand ing medication use.. The patient is in agreement with this plan. Hypothyroidism 57918993 E03.9 check TSh Screening for malignant neoplasm of colon 534693540 Z12.11 Referral for a DIRECT booked colonoscop y. This patient is a healthy ASA Class 1 or 2 patient (only mild systemic disease), or a STABLE, well controlled insulin dependent diabetic. They do not have serious cardiac disease ie MO/angiopl asty within 1 year, symptomati c CHF; renal failure with CKD 4 or 5; take Coumadin, Plavix, Aggrenox, etc. Depressive disorder 3548 9007 F32.9 At length discussion regarding her emotional needs, advised to take care of herself-be tter food choices, exercise, & continue seeing therapist. [id number] Jenn Wu NP , [facility] [address] [place] [address] 08/27/2017 16:00:49 08/27/2017 16:40:37 Screening for disorder 536423822 Z11.59 Sublingual salivary gland swelling 761173080 K11.9 persistent , swelling R sideworsen ing,imagin g modality of choice is CTreferred for scannot benefit from any analgesicw ill refer to ENT too [id number] Александр Juarez MD , [facility], [address] [place] [address] 01/11/2018 09:53:39 01/11/2018 11:09:22 Increased frequency of urination 020856260 R35.0 no sign of infection [place] bmental region 836901899 R22.1 no sign of infection- eval/rheum atologist- imaging test scheduled [id number] Ld Carnes MD , [facility], [address] [place] [address] 02/07/2018 15:22:49 02/07/2018 16:06:59 Benign essential hypertension 5243648 I10 Blood pressure at goal, continue on Losartan 100 mg-HCTZ 25 mg/d. F/U in 6 m. Intrinsic asthma 1163558 08 J45.20 INTERMITTE NT Asthma- Based on history, physical assessment and peak flow the patients asthma is in control. Will continue the present medication s and follow-up in 6 months. The asthma action plan has been discussed. The patient verbalizes understand ing medication use.. The patient is in agreement with this plan. Counseling 617635185 Z71 .9 Hypothyroidism 81025370 E03.9 check TSH Hand pain 09739424 M79.6 41 R hand, refer to Dr. Maradiaga [id number] Ld Carnes MD , [facility], [address] [place] [address] 05/13/2018 15:05:59 05/13/2018 15:48:02 Neck pain 40383318 M54.2 Will obtain an x-ray w/further treatment pending results, rest, elevate, ice & Tylenol as directedTI D w/food. Lymphadenopathy 38792714 R59.1 ? etiology, will obtain an US of neck [id number] Herlinda Pascual MD , [facility], [address] [place] [address] 05/30/2018 14:47:20 05/30/2018 15:41:37 Adult health examination 630379967 Z00.00 see Risk Assessment and Lifestyle Change Counseling section above58 yo f seen for PHA, Pap is UTD,, labs ordered, mammogram is UTD, colonoscop y is UTD, HCM needs discussed. Counseling 579798093 Z71 .9 Depression screening 171 511148 Z13.89 depression screening tool administer ed, entered into emr, scored and discussed, time greater than 7.5 minutes Benign ess ential hypertension 3246026 I10 Blood pressure at goal. continue on Losartan 100 mg-HCTZ 25 mg/d Depressive disorder 0964 3181 F32.9 At length discussion regarding her emotional needs, advised to take care of herself-be tter food choices, exercise, & continue seeing therapist. Migraine 52998009 G43.90 9 meds reordered Herpes simplex 49996166 B00.9 med reordered Sj? ? ?gren's syndrome 41420461 M35.00 Under the care of Rheumatolo gy [id number] Herlinda Pascual MD , [facility], [address] [place] [address] 08/01/2018 15:24:50 08/01/2018 16:03:24 Backache 276605651 M54.9 Hypothyroidism 67427033 E03.9 check TSH Fatigue 54837848 R53.83 Discussed reasons for her s/s of fatigue, most likely related to situation stress at work and home as well as arms symptoms of depression which have increased due to stressful situations . At length discussion regarding need to take care of self. Advised increased fluids to prevent dehydratio n. Follow-up as needed. Patient agrees. Migraine 92795520 G43.90 9 meds reordered [id number] Ld Carnes MD , [facility], [address] [place] [address] 10/14/2018 15:45:11 10/14/2018 16:50:50 Herpes simplex 45779447 B00.9 med reordered Sj? ? ?gren's syndrome 23209052 M35.00 [facility] the [facility] Vaginitis 47071991 N76.0 Diflucan ordered as written below Low back pain 322890929 M54.5 PT referral done [id number] VIRI Foster , [facility], [address] [place] [address] 10/16/2019 09:22:51 10/16/2019 10:07:50 Acute asthma 619585398 J45.901 Start prednisone taper as written below. Push fluids, continue with inhalers, nebulizer and hydromet oral syrup. Follow up on Sunday. Work note given to be out until then. Sj? ? ?gren's syndrome 24611183 M35.00 Under the care of Rheumataudrey gy [id number] VIRI Foster , [facility], [address] [place] [address] 10/20/2019 10:33:46 10/20/2019 11:08:26 Urinary tract infectious disease 89656503 N39.0 Patient instructed to push fluids, to follow up for persistent or worsening symptoms or fever or back pain. POC positive but will wait to treat until culture comes back. Acute asthma 765715574 J 45.901 Start zithromax as written below. Take with a probiotic. Continue on prednisone taper as prescribed , do not stay on 60 mg/d, start the taper. Push fluids, continue with inhalers, nebulizer and hydromet oral syrup. Follow up on . Work note given until further notice. [id number] VIRI Foster, [facility], [address] [place] [address] 10/23/2019 09:28:18 10/23/2019 09:59:38 Acute asthma 059656228 J45.901 Continue on prednisone taper as prescribed . Push fluids, continue with inhalers, nebulizer and hydromet oral syrup. Follow up on Sunday. Work note stands until further notice; gave a new note today. Acute bronchitis 7262547 2 J20.9 Probable bronchitis related to viral illness. Continue w/nebulize r treatments as directed. [id number] VIRI Foster, [facility], [address] [place] [address] 10/27/2019 09:24:09 10/27/2019 10:41:48 Acute asthma 689734243 J45.901 Prednisone taper prescribed as written below based off of previous prescripti on by Dr. Hicks. Gatito gutierrez his office for urgent appointmen t. Work note given. Follow up on Sunday. Acute bronchitis 2078584 2 J20.9 Probable bronchitis related to viral illness. Continue w/nebulize r treatments as directed. [id number] VIRI Foster, [facility], [address] [place] [address] 10/29/2019 07:57:12 10/29/2019 08:23:20 Acute asthma 460572088 J45.901 Continue on prednisone taper as prescribed by Dr. Zendejas. Work note given to start back on Sunday for half days next week. Follow up if symptoms persist or worsen. Acute bronchitis 6712175 2 J20.9 Probable bronchitis related to viral illness. Continue w/nebulize r treatments as directed. [id number] VIRI Foster, [facility], [address] [place] [address] 11/11/2019 14:40:54 11/11/2019 15:52:45 Adult health examination 900517611 Z00.00 See Risk Assessment and Lifestyle Change Counseling section above59 yo f seen for PHA, Pap & pelvic performed today, labs ordered. Mammogram due & Colonoscop y is UTD (due in 2026). HCM needs discussed. Counseling 351598023 Z71 .9 including cardiovasc ular risk reduction counseling Depression screening 171 207337 Z13.89 Depression screening tool administer ed, entered into emr, scored and discussed, time greater than 7.5 minutes Screening for alcohol abuse 391699844 Z13.39 Intrinsic asthma 7321527 08 J45.20 INTERMITTE NT Asthma- Based on history, physical assessment and peak flow the patients asthma is in control. Will continue the present medication s and follow-up in 6 months. The asthma action plan has been discussed. The patient verbalizes understand ing medication use.. The patient is in agreement with this plan. Essential hypertension 71967725 I10 BP @ goal. Cont. on HCTZ 25 mg/d & Losartan 100 mg/d. Screening for malignant neoplasm of cervix 170527713 Z12.4 Screening mammography 24 004351 Z12.31 Screening for disorder 027324625 Z11.59 Ulcer of mouth 81858031 K12.1 Unresolved oral ulceration s, will check for HSV. Depressive disorder 3548 9007 F32.9 At length discussion regarding her emotional needs, advised to take care of herself-be tter food choices, exercise, & continue seeing therapist. continue on Sertraline 100 mg/d. [id number] Maddie small PA-C , [facility], [address] [place] [address] 01/02/2020 09:58:35 01/06/2020 13:05:29 Anxiety 51299230 F41.9 acute, related to current Covid-19, high [...] and sertraline at this timeActive with BH Sj? ? ?gren's syndrome 35034003 M35.00 with lung involvemen twell controlled , under care of Rheumataudrey plascencia plaquenil qd per Dr Lashawn gale [id number] VIRI Foster, [facility], [address] [place] [address] 01/08/2020 09:44:57 01/09/2020 15:40:05 Cough 10357078 R05 Awaiting Covid-19 test results, will order cough med as she has used in the past. Acute asthma 443898380 J 45.901 Questionab le. If Covid-19 testing is neg. will consider prescribin g high dose of Prednisone as she has required in past. Advised to continue w/inhalers : Symbicort, Ventolin & Spiriva via nebulizer. Plan to f/u pending Covid-19 result & 8-20 or sooner PRN [id number] VIRI Foster, [facility], [address] [place] [address] 02/04/2020 07:30:39 02/09/2020 10:02:08 Anxiety 72159568 F41.9 Refilled. Discussed importance of using this med sparingly & potential for abuse. Discussed alternativ e coping methods. [id number] VIRI Foster, [facility], [address] [place] [address] 04/05/2020 07:45:06 04/08/2020 09:47:07 Suspected COVID-19 631851996 Z03.818 requesting Covid antibody testing based on having had several episodes of viral illnesses over the past 3-4 months. Viral disease 16123141 B 34.9 Having a Covid-19 test today.Incr [...] Barton Member ID Guarantor Name 11/11/2019 1 [facility] [id number] 31 Herlinda Monge [id number] Herlinda Monge 01/02/2020 1 [facility] ([facility]) [id number] 31 Herlinda Monge [id number] Herlinda Monge 01/08/2020 1 [facility] ([facility]) [id number] 31 Herlinda Monge [id number] Herlinda Monge 02/04/2020 1 [facility] [id number] 31 Herlinda Monge [id number] Herlinda Monge 04/05/2020 1 [facility] [id number] 31 Herlinda Monge [id number] Herlinda Monge Notes Date Note Type Note [...] normal appetite; no changes in productivityVMG HypertensionReported bypatient.Duration:[facility] 10-year risk Control:Patient understands medications are to [...] manage her anxiety.Has been sick since around [place]; developed oral sores around the same time. Mouth sores sometimes come & go w/ a burning sensation. Warner Donaldson, UNIT SECRETARY [address] [place] [address], [phone], [facility] 11/11/2019 22:07:30 0 text/html 59 yo F [...] sadGood fam support. Maddie Valadez PA-C [address] [place], [address], [facility] 01/02/2020 12:52:34 0 text/html VMG URI Flu like SymptomsReported bypatient.Duration:starte d 2 days ago Severity:Symptoms are persisting Associated Symptoms:highest fever 99-100;Fatigue and malaise;Headache;congesti on;Non productive cough;Shortness of breath;Diarrhea(about 4 days ago); chest pressure Context:Sick contacts at work [employer] of asthma & Sjogren's Syndrome-has required treatment w/ high doses of Prednisone in the past.Works for [employer], tested for Covid-19 yesterday AM-awaiting results. VIRI Foster [address] [place], [address], [facility] 01/08/2020 15:27:58 0 text/html Virtual visitStill struggling with situational anxiety, Requesting refill on Lorazepam which was prescribed by [facility] on 01-02-20.Very anxious about Covid19;Works [...] walks when she can. VIRI Foster [address] [place], [address], [facility] 02/06/2020 13:46:45 0 text/html VMG URI Flu like SymptomsReported bypatient.Duration:starte d 4 days ago Severity:moderate; Symptoms are persisting Associated Symptoms:highest fever greater than 102;Fatigue and malaise;Headache;Signific ant muscle aches;congestion;Non productive cough;Shortness of breath;Chest pain with deep breath;Diarrhea(3 days); chest pressure Context:Sick contacts at work Modifying factors:No relief with OTC medication VV VIRI Foster [address] [place] [address], [phone], [facility] 04/05/2020 08:12:46 OBGyn Episode No OBEpisode recorded.
== END 2025-02-04 07:20 | disposition home or self-care (01) ==
LOC: HO.MRI 07:19
PROVIDERS: PCP Nurse Practitioner Adult Health; Visit Provider Student in an Organized Health Care Education/Training Program
DX: M17.0 Bilateral primary osteoarthritis of knee (principal)
CPT/HCPCS: 73562; 73721

== ENCOUNTER → 2025-02-04 07:30 | Outpatient (BNV) | payer OTHER, SELFPAY | PROVIDERS: PCP Nurse Practitioner Adult Health; Visit Provider Radiology Diagnostic Radiology | DX: M17.12 Unilateral primary osteoarthritis, left knee (principal); M25.462 Effusion, left knee | CPT/HCPCS: 73562; 73721 ==

== ENCOUNTER 2025-05-11 10:34 | Emergency (ER) | payer OTHER, SELFPAY ==
[2025-05-11 11:41] VITALS: BP 190/80; PULSE 78; RESP 17; TEMP 36.7; O2SAT 99; BMI 32.3
--- NOTE | 2025-05-11 11:41 | ED_ITS ---
HPI - General Adult General Chief complaint: Nausea/Vomiting/Diarrhea Stated complaint: vomiting, body aches, fever Time Seen by Provider: 05/11/25 14:05 Source: patient, RN notes reviewed and old records reviewed Mode of arrival: ambulatory Limitations: no limitations History of Present Illness ED Provider: Jann HPI narrative: 65-year-old female with a past medical history significant for systemic lupus erythematosus presenting for evaluation of nausea vomiting and body aches. Patient reports that she gets lupus flares whenever she gets stressed or physically sick with an illness. She reports that she has been very stressed at work as they have been under staffed. She reports nausea and vomiting that started this weekend and worsened this morning. She reports some mild abdominal discomfort but attributes this to vomiting. She reports a previous hiatal hernia repair but no other abdominal surgeries. She complains of a headache which is typical for her lupus flares. She takes methotrexate and Plaquenil chronically. She occasionally gets prednisone for acute flares She has not touched base with her childhood teacher regarding her symptoms today Related Data Previous Rx's ?Medication ?Instructions ?Recorded ondansetron 4 mg disintegrating 4 mg PO Q8H 3 days #9 tabs 10/14/24 tablet prednisone 20 mg tablet 40 mg (2 x 20 mg) PO DAILY # 10 tabs 05/11/25 Allergies Allergy/AdvReac Type Severity Reaction Status Date / Time celecoxib (From Celebrex) Allergy Hives Verified 05/11/25 11:45 codeine Allergy Vomiting Verified 05/11/25 11:45 cephalexin (From Keflex) AdvReac Unknown Verified 05/11/25 11:45 metoclopramide (From Reglan) AdvReac Agitated Verified 05/11/25 11:45 Review of Systems 2 Constitutional: Constitutional: Denies body ache(s), Reports chills, Reports fatigue, Denies fever(s), Denies frequent falls and Reports headache(s) Eyes: Eyes: Denies blurry vision ENT: Denies vertigo, Denies dizziness and Reports headache(s) Cardiovascular: Cardiovascular: Denies chest pain and Denies dyspnea on exertion Respiratory: Respiratory: Denies cough and Denies dyspnea on exertion Gastrointestinal: Gastrointestinal: Reports abdominal pain, Denies melena, Denies hematochezia, Reports nausea, Reports vomiting and Denies hematemesis Musculoskeletal: Musculoskeletal: Denies back pain Integumentary/Breasts: Skin/Breast: Denies rash Neurologic: Denies vertigo, Denies dizziness, Denies frequent falls and Reports headache(s) Psychiatric: Psychiatric: Denies anxiety Endocrine: Endocrine: Reports fatigue PMFSH Social History Social History Advance Directives: No Advance Directives Information Provided: Yes Physical Exam ED Vital Signs: Vital Signs - 24 hr 05/11/25 11:41 Temperature 98.0 F Pulse Rate 78 Respiratory Rate 17 Blood Pressure 190/80 H Pulse Oximetry 99 Oxygen Delivery Method Room Air BMI result Body Mass Index 32.3 Const General: healthy appearing, comfortable, no acute distress, alert and awake Nutritional Appearance: well nourished Orientation/consciousness: patient oriented x3 HENMT Head: Yes normocephalic and Yes atraumatic Eyes Eyelids: Yes eyelids normal Conjunctivae: conjunctivae normal Sclerae: sclerae normal Corneas: corneas normal Pupils: Equal, round and reactive pupils present EOM: EOMs intact bilaterally Neck Neck: Yes full ROM Resp Effort & Inspection: normal respiratory effort, able to speak in complete sentences and not labored Cardio Rate: regular rate Rhythm: regular rhythm GI Inspection: No distended Palpation (GI): Soft to palpation, not firm, nontender and no guarding Auscultation: normoactive bowel sounds Skin General skin exam: elasticity normal Neuro General: patient oriented x3 Cranial nerves: Yes Equal, round and reactive pupils present and Yes Bilaterally intact EOM present Cognition (Neuro): normal cognition Extrem Other: Moving all extremities well without any obvious deformities Course Course Course Narrative: RME performed by Maria Del Carmen Langford PA-C. Patient is a 65 year old assigned female at presenting to the emergency department with nausea and vomiting. Patient states she has been in a bit of a lupus flare for the last few days and has been having nausea and vomiting. Detailed physical exam and review of systems are deferred to the primary class teacher. EKG, labs, and swab ordered. Patient placed back in the waiting room pending room availability and results. Reevaluation(s) Reevaluation #1: Patient reports feeling better after Fioricet, IV fluids and Zofran. She is requesting a dose of tramadol which is what she takes at home for pain. We will give her a dose of general Time: 17:05 Medications Administered Generic Name Dose Route Start Last Admin Trade Name Fremahamed PRN Reason Stop Dose Admin Lactated Ringer's 1,000 mls @ 999 mls/hr 05/11/25 16:15 05/11/25 16:21 Lr IV 05/11/25 17:15 999 mls/hr .Q1H1M JAG Administration Discontinued Medications Generic Name Dose Route Start Last Admin Trade Name Fremahamed PRN Reason Stop Dose Admin Acetaminophen/Butalbital/Caffeine 1 tab 05/11/25 14:25 05/11/25 14:49 Butalb/Acetamin/Caff 50/325/40 Tablet PO 05/11/25 14:26 1 tab ONCE ONE Administration Lactated Ringer's 1,000 mls @ 999 mls/hr 05/11/25 14:30 05/11/25 15:50 Lr IV 05/11/25 15:30 Infused .Q1H1M JAG Infusion Ondansetron HCl 4 mg 05/11/25 14:25 05/11/25 14:49 Ondansetron Hcl 4 Mg/2 Ml Vial IVPUSH 05/11/25 14:26 4 mg ONCE ONE Administration Prednisone 40 mg 05/11/25 16:14 05/11/25 16:22 Prednisone 20 Mg Tablet PO 05/11/25 16:15 40 mg ONCE ONE Administration Tramadol HCl 50 mg 05/11/25 16:14 05/11/25 16:22 Tramadol Hcl 50 Mg Tablet PO 05/11/25 16:15 50 mg ONCE ONE Administration Medical Decision Making Medical Decision Making [facility] Narrative: 65-year-old female with past medical history significant for SLE as described above presents for evaluation of nausea vomiting. She is well-appearing with stable vital signs. She has a mild leukopenia which is likely due to her immunomodulators treating her SLE. There is no significant left shift. There was no anemia. Electrolytes are significant for a mild hypokalemia due to her vomiting. Renal function normal limits, troponin negative. We will treat with IV lactated Ringer's, Zofran and a Fioricet for her headache. Given the reassuring abdominal exam I feel this is less likely to be a surgical abdomen or significant infection. Differential Diagnosis Differential Diagnoses: The differential diagnosis associated with the presentation includes Hypokalemia Nausea and vomiting Gastroenteritis Biliary obstruction Small bowel obstruction less likely SLE flare Lab Data [facility] Lab Attestation statement: I reviewed the patient's lab results. As above 05/11/25 12:04 05/11/25 12:04 Labs: Lab Results 05/11/25 Range/Units 12:04 WBC 4.2 L (4.8-10.8) X10*3/uL RBC 4.52 (4.20-5.50) X10*6/uL Hgb 13.4 (12.0-16.0) g/dl Hct 39.6 (37.0-47.0) % MCV 87.6 (80.0-98.0) fL MCH 29.6 (27.0-33.0) pg MCHC 33.8 (31.0-35.0) g/dl RDW 12.6 (11.0-16.0) % Plt Count 279 (160-400) X10*3/uL MPV 9.1 L (9.4-12.3) fL Immature Gran % (Auto) 0.5 H (0.0-0.4) % Neut % (Auto) 69.8 (45-73) % Lymph % (Auto) 24.2 (20-40) % Coke % (Auto) 4.3 (2-11) % Eos % (Auto) 0.5 (0-4) % Baso % (Auto) 0.7 (0-2) % Lymph # (Auto) 1.0 L (1.2-4.9) X10*3/uL Coke # (Auto) 0.2 (0.1-1.2) X10*3/uL Eos # (Auto) 0.0 (0.0-0.4) X10*3/uL Baso # (Auto) 0.0 (0.0-0.2) X10*3/uL Abs Immat Gran (auto) 0.02 (0.00-0.03) X10*3/uL Absolute Neuts (auto) 2.9 (2.0-8.3) x10*3/uL Absolute Nucleated RBC 0.000 (0.0-0.012) X10*3/uL Nucleated RBC % (auto) 0.0 (0.0-0.2) /100WBC Sodium 141 (135-145) mmol/L Potassium 3.1 L (3.3-5.1) mmol/L Chloride 104 (96-108) mmol/L Carbon Dioxide 28 (22-29) mmol/L Anion Gap 12 (12-20) BUN 10 (9-16) mg/dL Creatinine 0.68 (0.5-1.4) mg/dL Estim Creat Clear Calc 89.4 Estimated GFR > 60 Random Glucose 95 (60-115) mg/dL Calcium 9.5 (8.4-10.2) mg/dL Magnesium 1.7 (1.6-2.6) mg/dL Total Bilirubin 0.6 (0.0-1.0) mg/dL AST 26 (5-31) U/L ALT 7 (0-31) U/L Alkaline Phosphatase 55 (39-117) U/L Troponin I High Sens < 2.7 (<3.5-17.0) ng/L Total Protein 6.9 (6.5-8.0) g/dL Albumin 4.4 (3.5-5.0) g/dL Influenza Type A (PCR) NEGATIVE (Negative) Influenza Type B (PCR) NEGATIVE (Negative) RSV RNA Qual (PCR) NEGATIVE (Negative) SARS-CoV-2 RNA (RT-PCR) NEGATIVE (Negative) Tests considered The following testing was considered but not selected: Consider CT scan of the head but the patient does have a history of headaches, she has no neuro deficits. Pain improved with Fioricet and tramadol. This was deferred. Consider CT scan of the abdomen pelvis given the vomiting but her abdomen is nontender on exam this is not likely to be a surgical or acute abdomen Discharge Plan Discharge Clinical Impression: Abdominal pain, Acute hypokalemia Patient Disposition: Home, Self-Care Instructions: Lupus Erythematosus (DC) Additional Instructions: Your workup in the ER today was reassuring. I recommend taking prednisone 40 mg daily for the next 5 days I this is likely due to a lupus flare. Drink lots of fluids. Follow-up with your primary doctor, return for new or worsening symptoms Prescriptions: New prednisone 20 mg tablet 40 mg PO DAILY Qty: 10 0RF No Action ondansetron 4 mg tablet,disintegrating 4 mg PO Q8H 3 Days Qty: 9 0RF Print Language: Serbian
--- NOTE | 2025-05-11 11:42 | ECG_ITS ---
Test Reason : VOMITING Blood Pressure : */* mmHG Vent. Rate : 83 BPM Atrial Rate : 83 BPM P-R Int : 160 ms QRS Dur : 104 ms QT Int : 364 ms P-R-T Axes : 32 40 -44 degrees QTcB Int : 427 ms Normal sinus rhythm ST & T wave abnormality, consider inferolateral ischemia Abnormal ECG When compared with ECG of 14-Oct-2024 10:17, Premature ventricular complexes are no longer Present T wave inversion now evident in Inferior leads T wave inversion now evident in Lateral leads Referred By: Maria Del Carmen Langford Electronically Signed By: FELECIA HOLLY
[2025-05-11 12:08] LABS: MANUAL DIFF FLAG NO
[2025-05-11 12:14] LABS: Hematocrit 39.6 % (37.0-47.0); Hemoglobin 13.4 g/dl (12.0-16.0); Imm Gran Abs Auto 0.02 X10*3/uL (0.00-0.03); Imm Gran Pct Auto 0.5 % (0.0-0.4); Lymphocytes Absolute Auto 1.0 X10*3/uL (1.2-4.9); Mean Corpuscular HGB Conc 33.8 g/dl (31.0-35.0); Mean Corpuscular Hemoglobin 29.6 pg (27.0-33.0); Mean Corpuscular Volume 87.6 fL (80.0-98.0); NRBC Abs Auto 0.000 X10*3/uL (0.0-0.012); NRBC Pct Auto 0.0 /100WBC (0.0-0.2); Platelet Count 279 X10*3/uL (160-400); Red Blood Count 4.52 X10*6/uL (4.20-5.50); White Blood Count 4.2 X10*3/uL (4.8-10.8)
[2025-05-11 12:28] LABS: Alanine Aminotransferase 7 U/L (0-31); Albumin Level 4.4 g/dL (3.5-5.0); Alkaline Phosphatase 55 U/L (39-117); Anion Gap 12 (12-20); Aspartate Amino Transferase 26 U/L (5-31); Blood Urea Nitrogen 10 mg/dL (9-16); Calcium 9.5 mg/dL (8.4-10.2); Carbon Dioxide 28 mmol/L (22-29); Chloride 104 mmol/L (96-108); Creatinine Clr Calc Pharmacy 89.4; Estimated Glomerular Filt Rate > 60; Magnesium 1.7 mg/dL (1.6-2.6); Potassium 3.1 mmol/L (3.3-5.1); Sodium 141 mmol/L (135-145); Total Protein 6.9 g/dL (6.5-8.0)
[2025-05-11 12:32] LABS: Troponin-I High Sensitivity < 2.7 ng/L (<3.5-17.0)
[2025-05-11 12:48] LABS: Resp Syncy Virus RNA Qual PCR NEGATIVE (Negative); SARS COV2 PCR INHOUSE NEGATIVE (Negative)
--- OUTSIDE RECORDS SUMMARY | 2025-05-11 14:20 | XMS_ITS | Clinical Summary ---
Author Organization [facility] Address [address] [address] Phone Care Team Providers Care Mycologist Name Role Phone Lester Hicks MD Unavailable [phone] Margaux Montanez MD Unavailable [phone] Eunice Sanz SUPPORT ANALYST Primary Care Provider [phone] Neisha Pinto RN Unavailable [phone] Shreyas Murphy MD Unavailable [email or web address] Doretha Glynn MD Unavailable [phone] Allergies Active Allergy Reactions Criticality Noted Date Comments Celecoxib Hives Medium 10/04/2017 Codeine Nausea and/or Vomiting High 01/10/2011 Cough syrup Cephalexin Other (See Comments) 10/04/2017 Near syncope Metoclopramide Hcl Mental Status Change High 022 Ranitidine Hcl Anaphylaxis High 10/04/2017 Medications B-complex with vitamin C Cap Take 1 capsule by mouth daily. Active calcium carbonate (CALCIUM 500 ORAL)Indications: unsure strength Take by mouth. Indications: unsure strength Active pantoprazole (PROTONIX) 40 MG tablet Take 40 mg by mouth 2 (two) times a day. 023 Active acetaminophen (PAIN RELIEF, ACETAMINOPHEN,) 650 MG CR tablet Take 1,300 mg by mouth every 8 (eight) hours as needed for pain (specific location in comments). Active famotidine (PEPCID) 40 MG tablet Take 80 mg by mouth daily. Active ipratropium-albut Modesta (DUONEB) 0.5-3 mg (2.5 mg base)/3 mL nebulizer solution Take 3 mL by nebulization 4 (four) times a day. 360 mL 5 023 Active syringe with needle (BD SAFETYGLIDE TB REG BEVEL) 1 mL 27 x 1/2 SyrgIndications:M ethotrexate, detention, current use Inject 1 each under the skin every 7 days. 25 each 1 024 Active ONDANSETRON ORAL Take by mouth. Active cyclobenzaprine (FLEXERIL) 5 MG tabletIndications :Muscle spasm take 1 tablet by mouth every night at bedtime as needed 30 tablet 024 Active triamcinolone (ORALONE) 0.1 % pasteIndications: SLE-Sjogren overlap syndrome,Mouth sore APPLY TO MOUTH SORES 4 TO 5 TIMES A DAY NEEDED 30 g 024 Active losartan (COZAAR) 100 MG tabletIndications :Essential hypertension TAKE ONE (1) TABLET BY MOUTH EVERY DAY 90 tablet 1 025 Active SEMAGLUTIDE SUBQ Inject 1.5 mg under the skin every 7 days. Active LORazepam (ATIVAN) 0.5 MG tablet Take 1 tablet (0.5 mg total) by mouth daily as needed for anxiety. Do not take with Tramadol or at the same time as trazodone or gabapentin. 15 tablet 025 Active folic acid (FOLVITE) 1 MG tabletIndications :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, detention, current use TAKE 1 TABLET BY MOUTH ONCE EVERY DAY EXCEPT FOR THE DAY OF WEEKLY METHORTEXATE 90 tablet 3 025 Active pilocarpine (SALAGEN) 5 MG tabletIndications :Sjogren's syndrome with lung involvement TAKE 1 TABLET(5 MG) BY MOUTH FOUR TIMES DAILY 360 tablet 3 025 Active traMADoL (ULTRAM) 50 mg tabletIndications :SLE-Sjogren overlap syndrome,Inflamma tory arthritis Take 1 tablet (50 mg total) by mouth every 8 (eight) hours as needed for pain (specific location in comments). 90 tablet 025 Active escitalopram oxalate (LEXAPRO) 10 MG tablet TAKE ONE (1) TABLET BY MOUTH EVERY DAY 90 tablet 1 025 Active montelukast (SINGULAIR) 10 mg tabletIndications :Asthma, cough variant,SOB (shortness of breath) TAKE 1 TABLET BY MOUTH EVERY DAY AT BEDTIME 90 tablet 2 025 Active budesonide-formot modesta 160-4.5 mcg/actuation inhaler INHALE 2 PUFFS INTO THE LUNGS 2 (TWO) TIMES A DAY. 10.2 g 5 025 Active albuterol-budeson blanca (AIRSUPRA) 90-80 mcg/actuation inhalerIndication s:Asthma, cough variant INHALE 2 PUFFS INTO THE LUNGS EVERY 4 (FOUR) HOURS NEEDED. 10.7 g 5 025 Active hydroCHLOROthiazi de 25 MG tabletIndications :Essential hypertension TAKE 1 TABLET BY MOUTH EVERY DAY 90 tablet 025 Active oxyCODONE 5 MG immediate release tablet Take 1 tablet (5 mg total) by mouth every 4 (four) hours as needed for pain (specific location in comments) (left knee). For breakthrough pain. You do not need to use all the tablets. Dispose of unused tablets. Partial fill OK. 10 tablet 025 Active Additional Information Patient not taking.Reported on 04/08/2025 ipratropium (ATROVENT) 42 mcg (0.06 %) nasal spray INSTILL 2 SPRAYS (ONE IN EACH NOSTRIL) 3 (THREE) TIMES A DAY. 15 mL 12 025 Active traZODone (DESYREL) 50 MG tablet Take 3 tablets (150 mg total) by mouth nightly at bedtime. 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 90 tablet 1 025 Active ergocalciferol (VITAMIN D2) 50,000 unit capsuleIndication s:Vitamin D deficiency, unspecified TAKE 1 CAPSULE (50 000 UNITS TOTAL) BY MOUTH ONCE A WEEK. 12 capsule 1 025 Active hydroxychloroquin e (PLAQUENIL) 200 mg tabletIndications :Inflammatory arthritis,Methotr exate, detention, current use,Primary osteoarthritis involving multiple joints,Sjogren's syndrome with lung involvement TAKE ONE (1) TABLET BY MOUTH TWICE DAILY 180 tablet 3 025 Active buPROPion (WELLBUTRIN XL) 150 MG ER 24 hr tabletIndications :Anxiety and depression Take 3 tablets (450 mg total) by mouth daily. 270 tablet 1 021 2021 Discontinued sertraline (ZOLOFT) 100 MG tablet Take 1 tablet (100 mg total) by mouth daily. 90 tablet 1 021 2021 Discontinued hydroxychloroquin e (PLAQUENIL) 200 mg tabletIndications :Inflammatory arthritis,Methotr exate, detention, current use,Primary osteoarthritis involving multiple joints,Sjogren's syndrome with lung involvement TAKE 1 TABLET(200 MG) BY MOUTH TWICE DAILY 180 tablet 3 024 2024 Discontinued ergocalciferol (DRISDOL) 50,000 unit capsuleIndication s:Vitamin D deficiency, unspecified Take 1 capsule (50,000 Units total) by mouth once a week. 12 capsule 1 025 2024 Discontinued Hospital, Clinic, or Other Facility Administered Medication Ordered Dose Route Frequency Start Date End Date Status lidocaine (XYLOCAINE) 1% injection 2 mL 2 mL See Adm Inst See admin instructions 02/25/2024 Active BUPivacaine HCl (MARCAINE) 0.25% injection 2 mL 2 mL See Adm Inst See admin instructions 02/25/2024 Active triamcinolone acetonide (KENALOG-40) 40 mg/mL injection 40 mg 40 mg See Adm Inst See admin instructions 02/25/2024 Active Active Problems Patient Care Coordination No te Formatting of this note migh t be different from the original. Patient is high risk for these reasons: HTN, Sjogren's, Lupus. Living Situation: Own home with and one of her son's. Functional Status (ADL's/iADLs): Independent. Family/Social Supports: and children are supports. Goals of Care (HCP/Molst): HCP is on file. Community Supports (e.g. VNA, DME Vendors, Elder Services): N/A Transportation: Own vehicle, drives self. Medication Management System/Specialized Pharmacy Needs: Financial Concerns: N/A Other Supports and Care Needs: TBD. Problem Noted Date Diagnosed Date Class 1 obesity due to exces s calories with serious comorbidity and body mass index (BMI) of 34.0 to 34.9 in adult 03/19/2025 Assessment & Plan (03/19/2025 9:53 AM EDT): Congratulations on losing 18 pounds from 213 on 12/18/2024 down to 195 today and keep it off. Continue diligent portion control. Limit concentrated sugars, saturated fats and calories in the diet. Keep well-hydrated. If unable to achieve expected goal consider formal dietary/nutritional support. Primary osteoarthritis of both knees 03/19/2025 Assessment & Plan (03/19/2025 9:52 AM EDT): Joint protection, energy conservation. Gentle, regular exercise routine. Avoid falls, injuries, overuse. Work on bringing her body weight as close as possible to ideal range for her height. Continue close follow-up with PT-formal referral provided and orthopedic surgeon who performed L geniculate artery embolization on 03/12/2025 Vitamin D deficiency, unspecified 12/18/2024 Assessment & Plan (12/18/2024 10:04 PM EDT): Continue weekly vitamin D 50,000 units supplementation to keep it in optimal serum range: 40-45 ng/ml. Osteoarthritis of both knees 09/17/2024 Assessment & Plan (12/15/2024 4:46 PM EDT): Await upcoming appointment with rheumatology. She has seen orthopedics but is not ready to proceed to knee replacement. Assessment & Plan (09/17/2024 11:54 AM EST): Procedure: After an informed written consent, under sterile conditions using Ethyl chloride spray for local anesthesia I have injected 40 mg Kenalog and 2 cc 1% Lidocaine into Right knee from lateral approach uneventfully. Details of post-procedure care were explained to the patient in the office and given in writing. Provider: Margaux Montanez MD Patient: Herlinda Haskins : 1960 Date: 09/17/2024 Allergic rhinitis 09/11/2024 Assessment & Plan (09/11/2024 8:22 PM EST): Continue montelukast and as needed Zyrtec. Continue Atrovent nasal spray for rhinorrhea/vasomotor rhinitis. Multiple thyroid nodules 07/13/2024 Vitamin D insufficiency 06/06/2024 Assessment & Plan (03/19/2025 9:10 AM EDT): Continue weekly vitamin D 50,000 units to keep it in optimal serum range: 40-45 ng/ml. Assessment & Plan (12/18/2024 1:01 PM EDT): Continue weekly vitamin D 50,000 units to keep it in optimal serum range: 40-45 ng/ml. Assessment & Plan (06/06/2024 11:15 AM EDT): Continue weekly vitamin D 50,000 units to keep it in optimal serum range: 40-45 ng/ml. Muscle spasm 06/06/2024 Assessment & Plan (06/06/2024 12:54 PM EDT): In the past Flexeril at night at the time of flare was very helpful and she is requesting refill on it today. She is aware about possible interaction with Plaquenil and tramadol and will avoid taking them together and limit frequency of intake to the least frequent Class 2 severe obesity due t o excess calories with serious comorbidity and body mass index (BMI) of 37.0 to 37.9 in adult 03/14/2024 Assessment & Plan (12/18/2024 10:02 PM EDT): Congratulations on losing 10 pounds from 223 on 09/17/2024 down to 213 today and keep it off. Continue diligent portion control. Limit concentrated sugars, saturated fats and calories in the diet. Keep well-hydrated. If unable to achieve expected goal consider formal dietary/nutritional support. Assessment & Plan (12/15/2024 4:46 PM EDT): Taking semaglutide through [facility]. She is pleased with weight loss. We reviewed that 10% weight loss would warrant dose adjustment of levothyroxine. Follow up with endocrinology as scheduled. Assessment & Plan (06/17/2024 11:47 AM EDT): She is frustrated by weight gain. 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 Given active and chronic GI symptoms, I think that GLP1 medications could worsen her symptoms and she agrees. I do not think that other medications demonstrate enough efficacy to warrant use (eg phentermine). Offered referral to bariatrics but she prefers to wait. Continue to monitor portion sizes, exercise as pain allows. Assessment & Plan (06/06/2024 12:53 PM EDT): Continue diligent portion control particularly in view of gaining 2 pounds from 222 in March 2024 up to 224 today. Limit concentrated sugars, saturated fats and calories in the diet. Keep well-hydrated. If unable to achieve expected goal consider formal dietary/nutritional support. Assessment & Plan (03/23/2024 12:10 PM EDT): Continue diligent portion control particularly in view of gaining 9 pounds from 213 in November 2023 up to 222 today. Limit concentrated sugars, saturated fats and calories in the diet. Keep well-hydrated. If unable to achieve expected goal consider formal dietary/nutritional support. Numbness and tingling of both upper extremities 11/28/2023 Assessment & Plan (11/28/2023 9:31 AM EST): Proper posture, joint protection, energy conservation techniques. Use warm pack versus warm shower prior to gentle, regular ROM, retching and muscle strengthening exercises. Avoid falls, injuries, overuse. Call if symptoms progress. Rheumatoid arthritis with rh eumatoid factor of left knee without organ or systems involvement 10/29/2023 Assessment & Plan (10/29/2023 3:09 PM EST): Recent knee aspiration/injection with Dr. Alvarez. Follow up with Dr. Zendejas as planned. Hair loss 09/04/2023 Assessment & Plan (09/04/2023 4:00 PM EST): Patient reports more recent onset of significant hair loss in the last 6 month. We discussed that there could be many reasons for this. Will check TFTs, CBC, vitamin D, CMP. Obesity due to excess calories with serious leland rbidity 05/04/2023 Assessment & Plan (10/03/2024 7:05 PM EST): Congratulations on losing 1 pound from 224 on 06/06/2022 for down to 223 today and keep it off. Continue diligent portion control. Limit concentrated sugars, saturated fats and calories in the diet. Keep well-hydrated. If unable to achieve expected goal consider formal dietary/nutritional support. Assessment & Plan (05/04/2023 3:13 PM EDT): Continue diligent portion control. Limit concentrated sugars, saturated fats and calories in the diet. Keep well-hydrated. If unable to achieve expected goal consider formal dietary/nutritional support. Encounter for general adult medical examination with abnormal findings 04/23/2023 Assessment & Plan (06/17/2024 11:45 AM EDT): PCV20 today. She prefers to get flu shot in July. Covid vaccine discussed. Warning signs of breast cancer and breast self-awareness reviewed. Schedule mammography. Pap smear 2024 per ASCCP guidelines. EGD and colonoscopy are scheduled this week. Continue regular dental care. Assessment & Plan (04/23/2023 4:40 PM EDT): Immunizations are up to date. She declines further Covid vaccination. Warning signs of breast cancer and breast self-awareness reviewed. Next screening pap smear 2024 per ASCCP guidelines. Next screening colonoscopy 2026. Labs are up to date. Continue regular dental care. Perioral dermatitis 04/23/2023 Assessment & Plan (04/23/2023 4:48 PM EDT): Confirmed by dermatology and recently started doxycycline. Continue very careful sun avoidance/protection. Await dermatology note. Bilateral pleural effusion 12/08/2022 Assessment & Plan (12/22/2022 1:29 PM EDT): Small bilateral left greater than right pleural effusions likely sympathetic postoperatively. No evidence of infection, inflammatory secondary to autoimmune disorder, and certainly no suspicion for neoplastic etiology. We reviewed the pathophysiology of sympathetic effusions and that these should resolve on their own. Strongly encouraged activity and resuming use of incentive spirometry twice daily, up to 3 days as tolerates. She will monitor for any worsening of symptoms if so would then repeat chest x- ray sooner for that and/or a CT scan. Otherwise we will plan for a surveillance follow-up chest x-ray in 6 weeks. She is still recovering from her major surgery and unable to return to work. She will follow-up with her primary care for when she is able to return. Assessment & Plan (12/08/2022 3:40 PM EST): Thoracentesis as noted above. Assessment & Plan (12/08/2022 12:35 PM EST): I suspect her symptoms of shortness of breath and intermittent pleuritic chest pain are secondary to the presence of moderate-sized bilateral pleural effusions. She underwent hernia repair with gastropexy less than 1 month ago and when reviewing chest x-rays during this hospitalization from 11/17-11/19, she had development of small bilateral pleural effusions. These effusions have increased in size since the interim. The effusions could be postsurgical in nature versus secondary to volume overload from IV fluids with subsequent third spacing. Acute congestive heart failure clinically seems much less likely and this will be evaluated on echo which is already been ordered. Inflammatory effusion in the setting of autoimmune disease is possible (especially in the setting of holding methotrexate), but would also seem clinically less likely. Recommend bilateral diagnostic/therapeutic thoracentesis with IR. This was discussed in detail with the patient who agreed to proceed with this plan. Bilateral pleural fluid studies and cytology orders have been placed. Regarding her chronic methotrexate, she typically takes this on Sunday and I do not see a pulmonary or infectious reason why she could not resume this today (especially in the setting of having difficulty getting the methotrexate as an outpatient). History of COVID-19 06/28/2022 Assessment & Plan (07/22/2022 11:07 PM EDT): Due to persistent fatigue and achiness throughout the body I suggested her to [place] [facility] [place]. Mouth sores 03/20/2022 Assessment & Plan (04/04/2022 11:17 AM EDT): Avoid spicy and acidic foods. Proper hydration. Diligent mouth hygiene. Use lysine 500 mg twice daily and topical product from her dentist as prescribed Paraesophageal hernia 02/28/2022 Assessment & Plan (10/03/2024 7:03 PM EST): Corrected surgically in November 2022 with subsequent pleural effusions, vasovagal reaction upon one of the aspiration procedures. 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 Assessment & Plan (06/17/2024 11:46 AM EDT): S/P repair 2022. Await EGD this week. Assessment & Plan (06/06/2024 12:52 PM EDT): Corrected surgically in November 2022 with subsequent pleural effusions, vasovagal reaction upon one of the aspiration procedures. 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 Assessment & Plan (02/28/2022 4:42 PM EDT): Large hiatal hernia, previously documented as Bochdalek hernia though unclear if that is accurate. Given active symptoms of early satiety and abdominal discomfort, further evaluation and thoracic surgery consultation recommended. Plan repeat chest CT and upper GI series. Refer to Dr. Esteban once testing completed. PTSD (post-traumatic stress disorder) 10/03/2021 Assessment & Plan (06/06/2024 12:50 PM EDT): She continues every 2 weeks personal psychotherapy and finds it very rewarding. She has the same therapist x 13 years! Assessment & Plan (02/28/2022 12:25 PM EDT): I am hoping that the beta-bladimir will also have a positive effect on her anxiety. SLE-Sjogren overlap syndrome 10/21/2020 Assessment & Plan (03/19/2025 9:51 AM EDT): Clinically and laboratory childers stable on current regimen. Get labs monitoring safety and efficacy of therapy prior to next visit. Consider neurology consult regarding headaches and family history of cerebral aneurysm causing in her mother at 48 if worsening or not improving. Continue current doses of folic acid and Plaquenil. Carefully continue weekly s.c. methotrexate 20 mg every Macario If recurrent mouth sores become an issue she knows to call for a refill on either nystatin swish and swallow or miracle mouthwash. Alternatively I may offer leucovorin 24 hours after each weekly methotrexate dose. She may also switch Biotene mouthwash to alcohol free Act or Smart mouthwash. Joint protection, energy conservation. Gentle, regular exercise routine. Avoid falls, injuries, overuse. Assessment & Plan (12/18/2024 1:01 PM EDT): Clinically and laboratory childers as of [place] [facility] [place] regimen. Get labs monitoring safety and efficacy of therapy prior to next visit. Consider neurology consult regarding headaches and family history of cerebral aneurysm causing in her mother at 48 if worsening or not improving. Continue current doses of folic acid and Plaquenil. Carefully increase weekly s.c. methotrexate dose from 20 mg every Macario up to 22.5 mg due to increased fatigue, stiffness in the morning and hands puffiness If recurrent mouth sores become an issue she knows to call for a refill on either nystatin swish and swallow or miracle mouthwash. Alternatively I may offer leucovorin 24 hours after each weekly methotrexate dose. She may also switch Biotene mouthwash to alcohol free Act or Smart mouthwash. Joint protection, energy conservation. Gentle, regular exercise routine. Avoid falls, injuries, overuse. Assessment & Plan (10/03/2024 6:59 PM EST): Clinically and laboratory childers as of most [place] [facility] [place] stable on current regimen. Get labs monitoring safety and efficacy of therapy prior to next visit. Consider neurology consult regarding headaches and family history of cerebral aneurysm causing in her mother at 48 if worsening or not improving. Continue current doses of folic acid and Plaquenil. Carefully increase weekly s.c. methotrexate dose from 20 mg every Sunday up to 22.5 mg due to increased fatigue, stiffness in the morning and hands puffiness If recurrent mouth sores become an issue she knows to call for a refill on either nystatin swish and swallow or miracle mouthwash. Alternatively I may offer leucovorin 24 hours after each weekly methotrexate dose. She may also switch Biotene mouthwash to alcohol free Act or Smart mouthwash. Joint protection, energy conservation. Gentle, regular exercise routine. Avoid falls, injuries, overuse. Assessment & Plan (06/17/2024 11:48 AM EDT): Managed through rheumatology. She will do labs this month. I asked her to call now to schedule her eye exam which is due. She uses topical eye lubricating drops with some effect. I refilled her triamcinolone and she will request further refills from rheumatology. Assessment & Plan (06/06/2024 12:49 PM EDT): Clinically and laboratory childers as of most recent labs from February 2024 stable on current regimen. Get labs monitoring safety and efficacy of therapy today and prior to next visit. Consider neurology consult regarding headaches and family history of cerebral aneurysm causing in her mother at 48 if worsening or not improving. Continue current doses of methotrexate, folic acid and Plaquenil. If recurrent mouth sores become an issue she knows to call for a refill on either nystatin swish and swallow or miracle mouthwash. Alternatively I may offer leucovorin 24 hours after each weekly methotrexate dose. She may also switch Biotene mouthwash to alcohol free Act or Smart mouthwash. Joint protection, energy conservation. Gentle, regular exercise routine. Avoid falls, injuries, overuse. Assessment & Plan (03/14/2024 3:35 PM EDT): Clinically and laboratory childers stable on current regimen. Get labs monitoring safety and efficacy of therapy prior to next visit. Consider neurology consult regarding headaches and family history of cerebral aneurysm causing in her mother at 48 if worsening or not improving. Continue current doses of methotrexate, folic acid and Plaquenil. If recurrent mouth sores become an issue she knows to call for a refill on either nystatin swish and swallow or miracle mouthwash. Alternatively I may offer leucovorin 24 hours after each weekly methotrexate dose. She may also switch Biotene mouthwash to alcohol free Act or Smart mouthwash. Joint protection, energy conservation. Gentle, regular exercise routine. Avoid falls, injuries, overuse. Assessment & Plan (11/28/2023 9:30 AM EST): Clinically and laboratory childers stable on current regimen. Get labs monitoring safety and efficacy of therapy prior to next visit. Consider neurology consult regarding headaches and family history of cerebral aneurysm causing in her mother at 48 if worsening or not improving. Continue current doses of methotrexate, folic acid and Plaquenil. If recurrent mouth sores become an issue she knows to call for a refill on either nystatin swish and swallow or miracle mouthwash. Alternatively I may offer leucovorin 24 hours after each weekly methotrexate dose. She may also switch Biotene mouthwash to alcohol free Act or Smart mouthwash. Joint protection, energy conservation. Gentle, regular exercise routine. Avoid falls, injuries, overuse. Assessment & Plan (05/06/2023 11:50 AM EDT): Get labs monitoring safety and efficacy of therapy prior to next visit. Consider neurology consult regarding headaches and family history of cerebral aneurysm causing in her mother at 48 if worsening or not improving. Continue current doses of methotrexate, folic acid and Plaquenil. If recurrent mouth sores become an issue she knows to call for a refill on either nystatin swish and swallow or miracle mouthwash. Alternatively I may offer leucovorin 24 hours after each weekly methotrexate dose. She may also switch Biotene mouthwash to alcohol free Act or Smart mouthwash. Joint protection, energy conservation. Gentle, regular exercise routine. Avoid falls, injuries, overuse. Assessment & Plan (04/23/2023 4:45 PM EDT): Followed regularly by Dr. Zendejas who she will see next week. Porsha will schedule updated eye care. Encouraged not to resume daily valacyclovir or to use just with fatigue. If she has symptoms of oral HSV it would be reasonable to use this for treatment. Assessment & Plan (12/08/2022 3:37 PM EST): History of SLE has been off of methotrexate for 2 and half months. Unclear if SLE is contributing to her symptomatology. -Status postthoracentesis. Follow-up fluid analysis. -Follow with pulmonology - May benefit from discussion with Dr. Unger pending work-up. -Continue Plaquenil 200 mg twice a day. -Patient is due to restart methotrexate injection. -Continue Pilocarpine -Continue folic acid Assessment & Plan (10/30/2022 3:44 PM EST): Get labs monitoring safety and efficacy of therapy prior to next visit. Consider neurology consult regarding headaches and family history of cerebral aneurysm causing in her mother at 48 if worsening or not improving. Continue current doses of methotrexate, folic acid and Plaquenil. If recurrent mouth sores beome an issue she knows to call for a refill on either nystatin swish and swallow or miracle mouthwash. Alternatively I may offer leucovorin 24 hours after each weekly methotrexate dose. She may also switch Biotene mouthwash to alcohol free Act or Smart mouthwash. Joint protection, energy conservation. Gentle, regular exercise routine. Avoid falls, injuries, overuse. Assessment & Plan (07/22/2022 11:05 PM EDT): Get labs monitoring safety and efficacy of therapy prior to next visit. Consider neurology consult regarding headaches and family history of cerebral aneurysm causing in her mother at 48 if worsening or not improving. Continue current doses of methotrexate, folic acid and Plaquenil. If recurrent mouth sores beome an issue she knows to call for a refill on either nystatin swish and swallow or miracle mouthwash. Alternatively I may offer leucovorin 24 hours after each weekly methotrexate dose. She may also switch Biotene mouthwash to alcohol free Act or Smart mouthwash. Joint protection, energy conservation. Gentle, regular exercise routine. Avoid falls, injuries, overuse. Assessment & Plan (03/20/2022 12:44 PM EDT): Get labs monitoring safety and efficacy of therapy prior to next visit in 1 month. Consider neurology consult regarding headaches and family history of cerebral aneurysm causing in her mother at 48 if worsening or not improving. Continue current doses of methotrexate, folic acid and Plaquenil. If recurrent mouth sores beome an issue she knows to call for a refill on either nystatin swish and swallow or miracle mouthwash. Alternatively I may offer leucovorin 24 hours after each weekly methotrexate dose. She may also switch Biotene mouthwash to alcohol free Act or Smart mouthwash. Joint protection, energy conservation. Gentle, regular exercise routine. Avoid falls, injuries, overuse. Assessment & Plan (04/05/2021 8:08 AM EDT): Continue current Plaquenil and methotrexate with folic acid as prescribed. Avoid sick contacts, falls and injuries. Continue diligent hand hygiene. Keep up-to-date with age-appropriate screenings and preventive strategies. Proper hydration. Daily sun protection. Well-balanced nutritionally diet. Regular hobbies/favorite activities. Gentle, regular exercise routine. Call with questions or problems. Assessment & Plan (01/12/2021 4:03 PM EDT): Continue current Plaquenil and methotrexate with folic acid as prescribed. Avoid sick contacts, falls and injuries. Continue social distancing, wearing facial mask whenever leaving from home and diligent hand hygiene. Keep up-to-date with age-appropriate screenings and preventive strategies. Proper hydration. Daily sun protection. Well-balanced nutritionally diet. Regular hobbies/favorite activities. Gentle, regular exercise routine. Call with questions or problems. Assessment & Plan (10/24/2020 9:01 PM EST): Continue current Plaquenil and methotrexate with folic acid as prescribed. Avoid sick contacts, falls and injuries. Continue social distancing, wearing facial mask whenever leaving from home and diligent hand hygiene. Keep up-to-date with age-appropriate screenings and preventive strategies. Proper hydration. Daily sun protection. Well-balanced nutritionally diet. Regular hobbies/favorite activities. Gentle, regular exercise routine. Call with questions or problems. 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 Hair loss possibly linked to high thyroid hormone levels. Discussed dose adjustment necessity. - Order TSH test. - Adjust levothyroxine to 6.5 tablets per week if TSH is below normal, equating to 139 mcg daily. - Refill levothyroxine for 90 days. - Recheck TSH in 3 months. Assessment & Plan (12/15/2024 4:46 PM EDT): Assessment & Plan (06/17/2024 11:49 AM EDT): She will do labs this month for endocrinology and follow up on 07/08. She will check with the pharmacy/insurance re: Cytomel which she has not been taking. Assessment & Plan (10/29/2023 3:09 PM EST): Starting Cytomel through endocrinology with plan to continue levothyroxine and repeat labs in 6 weeks. 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 She reports intermittent difficulty with thyroid hormone adjustment for no good reason and needing a higher than usual dose of thyroid hormone to normalize TSH with these episodes. Last such episode was in 09/2021 when TSH went as high as 51.2 while likely taking 150 mcg levothyroxine and 5 mcg liothyronine consistently and appropriately. When her levothyroxine dose was increased to 175 mcg daily and continued on the 5 mcg euthyroid and her TSH became suppressed to 0.05 and free T4 was up at 2.0. Last TSH on 12/08/2022 was normal 1.45 while taking only 150 mcg levothyroxine daily. She has been off of the liothyronine for over a year. She is complaining about increasing fatigue and significant hair loss in the last 6 months. She seems clinically euthyroid except for mild bilateral hand tremor. We discussed basic thyroid physiology, meaning of TFTs, proper administration of thyroid hormone. Plan to repeat TFTs today and adjust dose as needed. Patient feels at best when TSH is closer to the lower end of normal. We discussed possible health risks of over replacement with thyroid hormone. Will communicate about labs through [facility]. Reviewed symptoms of under and over replacement, patient to call if concerns. Follow-up in 6 months Assessment & Plan (04/23/2023 4:46 PM EDT): Establish care with endocrinology this fall as scheduled. For now, continue current dose of levothyroxine as last TSH was improved and she has not symptoms of over- or under-repletion. Assessment & Plan (07/22/2022 11:05 PM EDT): Close follow-up with treating back end engineer exactly as instructed to keep her thyroid function within the optimal range. Assessment & Plan (04/04/2022 11:15 AM EDT): Close follow-up with treating back end engineer exactly as instructed to keep her thyroid function within the optimal range. Assessment & Plan (01/05/2022 11:48 AM EDT): The patient is on supraphysiologic dose of levothyroxine 171 mcg of levothyroxine and liothyronine 5 mcg which is equivalent to 25 mcg or total of 196.4 mcg. At this point her TSH remains elevated despite taking the medication properly and stopping biotin at least 2 weeks prior to doing her lab work. So I do not have a reason as to why the patient has elevated TSH despite getting such a high dose of levothyroxine. So at this point I am increasing the levothyroxine out from 150 mcg to 175 mcg daily. She should take 1 tablet daily and continue liothyronine 5 mcg daily. Since liothyronine is the equivalent of 25 mcg of levothyroxine she is getting approximately 200 mcg of levothyroxine. She should repeat thyroid function studies in 3 months time and I did advise her to stop biotin 2 weeks before the visit because of the steroid after assay. Assessment & Plan (10/26/2021 9:07 AM EST): This is a patient with hypothyroidism already on a supraphysiologic dose of levothyroxine and liothyronine whose TSH went up unexplainably. I suspect that the thyroid assay could be wrong because the patient is taking biotin. There is no other explanation. I asked her to stop the biotin and repeat the lab work in 2 weeks and I will see her in 3 weeks for discussion. In the meantime I told her to just continue what she is doing she is taking an average of 192.8 mcg of levothyroxine and liothyronine 5 mcg daily. Again this is supraphysiologic and which is the reason why I did not want to increase her medication any further until we have further evaluation. I requested TSH free T4 and free T3. I also informed the patient to wait at least 2 hours after taking her thyroid medications on the day of the lab work. She states that she normally does this anyway since she wakes up very early to take her thyroid medications. Assessment & Plan (12/22/2020 5:11 PM EDT): The patient is chemically and clinically euthyroid on levothyroxine 150 mcg and Cytomel 5 mcg daily. We will renew these prescriptions for a year and have her return for follow-up in 1 years time she should repeat TSH, free T4 and free T3 prior to the follow-up visit. Assessment & Plan (10/21/2020 4:35 PM EST): Carefully continue current dose of thyroid replacements therapy and follow-up as scheduled with her back end engineer. Assessment & Plan (08/22/2020 6:54 PM EST): Carefully continue current dose of thyroid replacements therapy and follow-up as scheduled with her back end engineer. Assessment & Plan (05/09/2020 4:52 PM EDT): Carefully continue current dose of thyroid replacements therapy and follow-up as scheduled with her back end engineer. Assessment & Plan (12/18/2019 11:01 AM EDT): So the patient is technically chemically euthyroid but her TSH is on the low side of normal. States that she feels good the way she is now. I suspect that the TSH suppression may be was due to prednisone administration. I feel that if her TSH decreases in the future and she is not feeling well it may be due to oral medications and by that I mean specifically thyroid medications in which case she may have to decrease either 1 of the Cytomel dose or decrease the dose of levothyroxine. I have put a order for TSH, free T4 and free T3. Adding dated in case she requires repeat levels sooner if she is symptomatic. I will give her a follow-up appointment in a year. My feeling is that if she has abnormalities with thyroid or she feels that is her thyroid may be she will need to come and see me sooner but if she feels fine she can come once a year. Assessment & Plan (11/13/2019 1:37 PM EST): This is a patient with hypothyroidism due to Griffin's probably diagnosed in 2004. She is on high doses of levothyroxine and Cytomel. She does complain of fatigue and I did inform her that too much thyroid medications can result in fatigue. Based on my calculation the 150 mcg +2 5 mcg of Cytomel/3 equivalent of 200 mcg of levothyroxine. Based on her weight she should get around 157 mcg. Her most recent TSH on 08/08/2019 was suppressed at 0.05 PR U/mL. I do not know when her dose was last changed. I think she should repeat it. If she is concerned about Griffin's thyroiditis/inflammation of the thyroid gland and thyrotoxicosis we should check TPO and thyroglobulin antibodies. Now there is no possibility of the patient having Graves' disease because if she did have Graves' disease then the TSH would not increase to a level of 22 that would be impossible. At this point I will repeat thyroid functions including TSH, free T4 and because she is taking Cytomel free T3 levels should be checked as well I will also check TPO and thyroglobulin antibodies. Since she complains of fatigue I will get a baseline cortisol level. Chronic fatigue 11/13/2019 Assessment & Plan (11/13/2019 1:41 PM EST): Will check cortisol level since she inquired whether this could be causing her fatigue. I did inform the patient that this must be done fasting first thing in the morning between 8 and 9:00. I did reviewed the hemoglobin hematocrit shows no any. Again no electrolyte abnormalities, vitamin D levels within the reference range. Serum calcium also within the reference range. ESR is also within the reference range. Asthma, cough variant 02/19/2019 Assessment & Plan (09/11/2024 8:22 PM EST): No recent exacerbations, currently off all maintenance therapy other than montelukast. Symbicort seasonally if needed. In place of albuterol, changed to Airsupra, 2 puffs every 4 hours as needed worsening asthma. Assessment & Plan (10/29/2023 3:10 PM EST): She feels recovered from recent Covid infection. Follow up with Dr. Hicks as recommended. Assessment & Plan (02/28/2022 4:42 PM EDT): Well-controlled on Singulair alone. Assessment & Plan (11/07/2019 1:47 PM EST): Current bronchitis exacerbation consistent with flare of asthmatic bronchitis. Would continue maintenance therapy with Spiriva, Singulair, and Symbicort. Continue duo nebs as needed. Assessment & Plan (05/22/2019 8:33 AM EDT): Currently well controlled. Continue Symbicort, montelukast, and albuterol as needed. Assessment & Plan (02/19/2019 3:06 PM EDT): She has been doing well on her symbicort, spiriva and duoneb for some time. Continue current regimen. Plan for follow up with Dr. Hicks in three months. Fibromyalgia 11/14/2018 Assessment & Plan (11/28/2023 8:05 AM EST): Carefully continue regular relaxation, meditation, positive imagery, DNRS etc. Remain on gabapentin as prescribed. Sleep hygiene. Balance rest and activity. Proper hydration. Well-balanced nutritionally diet. Keep up-to-date with age-appropriate screenings and preventive strategies. Follow mindfulness approach strategies as described in book written by Dr Landon Knight [facility] Assessment & Plan (05/04/2023 2:50 PM EDT): Carefully continue regular relaxation, meditation, positive imagery, DNRS etc. Remain on gabapentin as prescribed. Sleep hygiene. Balance rest and activity. Proper hydration. Well-balanced nutritionally diet. Keep up-to-date with age-appropriate screenings and preventive strategies. Follow mindfulness approach strategies as described in book written by Dr Landon Lion [facility] Assessment & Plan (10/30/2022 3:44 PM EST): Carefully continue regular relaxation, meditation, positive imagery, DNRS etc. Remain on gabapentin as prescribed. Sleep hygiene. Balance rest and activity. Proper hydration. Well-balanced nutritionally diet. Keep up-to-date with age-appropriate screenings and preventive strategies. Follow mindfulness approach strategies as described in book written by Dr Landon Knight [facility] Assessment & Plan (06/28/2022 4:12 PM EDT): Carefully continue regular relaxation, meditation, positive imagery, DNRS etc. Remain on gabapentin as prescribed. Sleep hygiene. Balance rest and activity. Proper hydration. Well-balanced nutritionally diet. Keep up-to-date with age-appropriate screenings and preventive strategies. Follow mindfulness approach strategies as described in book written by Dr Landon Knight [facility] Assessment & Plan (12/07/2021 4:44 PM EST): Carefully continue regular relaxation, meditation, positive imagery, DNRS etc. Remain on gabapentin as prescribed. Sleep hygiene. Balance rest and activity. Proper hydration. Well-balanced nutritionally diet. Keep up-to-date with age-appropriate screenings and preventive strategies. Follow mindfulness approach strategies as described in book written by Dr Landon Lion [facility] living Assessment & Plan (09/08/2021 3:46 PM EST): Carefully continue regular relaxation, meditation, positive imagery, DNRS etc. Remain on gabapentin as prescribed. Sleep hygiene. Balance rest and activity. Proper hydration. Well-balanced nutritionally diet. Keep up-to-date with age-appropriate screenings and preventive strategies. Follow mindfulness approach strategies as described in book written by Dr Landon Lion [facility] living Assessment & Plan (05/25/2021 4:46 PM EDT): Carefully continue regular relaxation, meditation, positive imagery, DNRS etc. Remain on gabapentin as prescribed. Sleep hygiene. Balance rest and activity. Proper hydration. Well-balanced nutritionally diet. Keep up-to-date with age-appropriate screenings and preventive strategies. Follow mindfulness approach strategies as described in book written by Dr Landon Lion [facility] living Assessment & Plan (03/24/2021 11:23 AM EDT): Carefully continue regular relaxation, meditation, positive imagery, DNRS etc. Remain on gabapentin as prescribed. Sleep hygiene. Balance rest and activity. Proper hydration. Well-balanced nutritionally diet. Keep up-to-date with age-appropriate screenings and preventive strategies. Follow mindfulness approach strategies as described in book written by Dr Landon Lion [facility] living Assessment & Plan (01/12/2021 4:01 PM EDT): Carefully continue regular relaxation, meditation, positive imagery, DNRS etc. Remain on gabapentin as prescribed. Sleep hygiene. Balance rest and activity. Proper hydration. Well-balanced nutritionally diet. Keep up-to-date with age-appropriate screenings and preventive strategies. Follow mindfulness approach strategies as described in book written by Dr Landon Knight [facility] Assessment & Plan (10/24/2020 9:01 PM EST): Carefully continue regular relaxation, meditation, positive imagery, DNRS etc. Remain on gabapentin as prescribed. Sleep hygiene. Balance rest and activity. Proper hydration. Well-balanced nutritionally diet. Keep up-to-date with age-appropriate screenings and preventive strategies. Follow mindfulness approach strategies as described in book written by Dr Landon Lion [facility] Assessment & Plan (08/22/2020 6:55 PM EST): Carefully continue regular relaxation, meditation, positive imagery, DNRS etc. Remain on gabapentin as prescribed. Sleep hygiene. Balance rest and activity. Proper hydration. Well-balanced nutritionally diet. Keep up-to-date with age-appropriate screenings and preventive strategies. Follow mindfulness approach strategies as described in book written by Dr Landon Lion [facility] living Assessment & Plan (03/28/2020 12:13 PM EDT): Carefully continue regular relaxation, meditation, positive imagery, DNRS etc. Remain on gabapentin as prescribed. Sleep hygiene. Balance rest and activity. Proper hydration. Well-balanced nutritionally diet. Keep up-to-date with age-appropriate screenings and preventive strategies. Follow mindfulness approach strategies as described in book written by Dr Landon Lion [facility] living Assessment & Plan (09/11/2019 8:45 AM EST): Carefully continue regular relaxation, meditation, positive imagery, DNRS etc. Remain on gabapentin as prescribed. Sleep hygiene. Balance rest and activity. Proper hydration. Well-balanced nutritionally diet. Keep up-to-date with age-appropriate screenings and preventive strategies. Follow mindfulness approach strategies as described in book written by Dr Landon Lion [facility] Assessment & Plan (07/08/2019 3:03 PM EDT): Carefully continue regular relaxation, meditation, positive imagery, DNRS etc. Remain on gabapentin as prescribed. Sleep hygiene. Balance rest and activity. Proper hydration. Well-balanced nutritionally diet. Keep up-to-date with age-appropriate screenings and preventive strategies. Follow mindfulness approach strategies as described in book written by Dr Landon Lion [facility] living Assessment & Plan (03/25/2019 10:18 AM EDT): Carefully continue regular relaxation, meditation, positive imagery, DNRS etc. Remain on gabapentin as prescribed. Sleep hygiene. Balance rest and activity. Proper hydration. Well-balanced nutritionally diet. Keep up-to-date with age-appropriate screenings and preventive strategies. Follow mindfulness approach strategies as described in book written by Dr Landon Knight [facility] Assessment & Plan (12/23/2018 2:33 PM EDT): Carefully continue regular relaxation, meditation, positive imagery, DNR S etc. Remain on gabapentin as prescribed. Sleep hygiene. Balance rest and activity. Proper hydration. Well-balanced nutritionally diet. Keep up-to-date with age-appropriate screenings and preventive strategies. Follow mindfulness approach strategies as described in book written by Dr Landon Knight [facility] Long-term use of Plaquenil 03/27/2018 Assessment & Plan (03/19/2025 9:53 AM EDT): Daily sun protection. See security manager as scheduled at least every 12 months.-Most recent checkup from February 2025 Free of signs of Plaquenil toxicity She is arranging for ophthalmologic checkup in the nearest future. Assessment & Plan (12/18/2024 1:02 PM EDT): Daily sun protection. See security manager as scheduled at least every 12 months. She is arranging for ophthalmologic checkup in the nearest future. Assessment & Plan (10/03/2024 7:03 PM EST): Daily sun protection. See security manager as scheduled at least every 12 months. She is arranging for ophthalmologic checkup in the nearest future. Assessment & Plan (06/06/2024 12:49 PM EDT): Daily sun protection. See security manager as scheduled at least every 12 months. She is arranging for ophthalmologic checkup in the nearest future. Assessment & Plan (03/23/2024 12:09 PM EDT): Daily sun protection. See security manager as scheduled at least every 12 months. Assessment & Plan (11/28/2023 9:30 AM EST): Daily sun protection. See security manager as scheduled at least every 12 months. Assessment & Plan (05/04/2023 2:51 PM EDT): Daily sun protection. See security manager as scheduled at least every 12 months. Assessment & Plan (10/30/2022 3:44 PM EST): Daily sun protection. See security manager as scheduled at least every 12 months. Assessment & Plan (06/28/2022 4:12 PM EDT): Daily sun protection. See security manager as scheduled at least every 12 months. Assessment & Plan (04/04/2022 11:18 AM EDT): Daily sun protection. See security manager as scheduled at least every 12 months. Assessment & Plan (12/07/2021 4:45 PM EST): Daily sun protection. See security manager as scheduled. Assessment & Plan (09/08/2021 3:46 PM EST): Daily sun protection. See security manager as scheduled. Assessment & Plan (05/25/2021 4:46 PM EDT): Daily sun protection. See security manager as scheduled. Assessment & Plan (03/24/2021 11:21 AM EDT): Daily sun protection. See security manager as scheduled. Assessment & Plan (01/12/2021 4:02 PM EDT): Daily sun protection. See security manager as scheduled. Assessment & Plan (10/24/2020 9:02 PM EST): Daily sun protection. See security manager as scheduled. Assessment & Plan (08/22/2020 6:55 PM EST): Daily sun protection. See security manager as scheduled. Assessment & Plan (05/09/2020 4:54 PM EDT): Daily sun protection. See security manager as scheduled. Assessment & Plan (03/28/2020 12:14 PM EDT): Daily sun protection. See security manager as scheduled. Assessment & Plan (02/05/2020 10:49 AM EDT): Daily sun protection. See security manager as scheduled. Assessment & Plan (09/11/2019 8:47 AM EST): Daily sun protection. See security manager as scheduled. Assessment & Plan (07/08/2019 3:06 PM EDT): Daily sun protection. See security manager as scheduled. Assessment & Plan (03/25/2019 10:21 AM EDT): Daily sun protection. See security manager as scheduled. Assessment & Plan (12/23/2018 2:36 PM EDT): Daily sun protection. See security manager as scheduled. Assessment & Plan (11/19/2018 8:58 PM EST): Daily sun protection. 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 Dry mouth 01/04/2018 Calculus of salivary duct 01/04/2018 Essential hypertension 10/08/2017 Assessment & Plan (12/15/2024 4:46 PM EDT): Well controlled on my check. Weight loss is likely helping. Continue current regimen. Return in 6 months for CPE with BP check and pap smear. Tdap to be done at that time, sooner with injury. Assessment & Plan (06/17/2024 11:46 AM EDT): Borderline control today. She is on maximum doses of losartan and HCTZ. She is starting a new job next week and thinks this could be contributing. For now, continue current medications and return in 6 months, sooner with rising BP. We would need to add a 3rd agent if BP increases. Assessment & Plan (10/29/2023 2:18 PM EST): Slightly above goal today but she reports lower numbers at home. For now, continue current medications and follow up in April as planned. If home readings trend upward, will return sooner. Assessment & Plan (04/23/2023 4:47 PM EDT): Well controlled. She is no longer followed by cardiology. Continue current medications. Assessment & Plan (12/08/2022 3:38 PM EST): Upper tensive on admission received IV fluids. Now appears euvolemic blood pressures low normal. Patient held Hydrochlorothiazide for the past few days due to concern for dehydration. -Hold hydrochlorothiazide. -Continue losartan with holding parameters. Assessment & Plan (02/28/2022 12:24 PM EDT): As mentioned well or adequately controlled I am adding metoprolol 50 mg once in the evening time I will follow-up with her in 2 to 3 months time. Echo does show diastolic impairment which is no surprise as a lot of her blood pressure is listed are elevated. Sjogren's syndrome with lung involvement 017 Assessment & Plan (03/19/2025 9:48 AM EDT): Clinically currently well-controlled except L knee, hands and neck soreness and stiffness particularly in the morning. Get labs monitoring safety and efficacy of therapy prior to next visit-standing orders in [facility]. Consider neurology consult regarding headaches and family history of cerebral aneurysm causing in her mother at 48 if worsening or not improving. Continue current doses of methotrexate, folic acid and Plaquenil. If recurrent mouth sores become an issue she knows to call for a refill on either nystatin swish and swallow or miracle mouthwash. Alternatively I may offer leucovorin 24 hours after each weekly methotrexate dose. She may also switch Biotene mouthwash to alcohol free Act or Smart mouthwash. Joint protection, energy conservation. Gentle, regular exercise routine. Avoid falls, injuries, overuse. Call if problems or questions otherwise return in 4 months with prior labs monitoring safety and efficacy of therapy-standing orders in [facility]. Assessment & Plan (12/18/2024 10:06 PM EDT): Clinically currently well-controlled except L knee, hands and neck soreness and stiffness particularly in the morning. Get labs monitoring safety and efficacy of therapy today and prior to next visit-standing orders in [facility]. Consider neurology consult regarding headaches and family history of cerebral aneurysm causing in her mother at 48 if worsening or not improving. Continue current doses of methotrexate, folic acid and Plaquenil. If recurrent mouth sores become an issue she knows to call for a refill on either nystatin swish and swallow or miracle mouthwash. Alternatively I may offer leucovorin 24 hours after each weekly methotrexate dose. She may also switch Biotene mouthwash to alcohol free Act or Smart mouthwash. Joint protection, energy conservation. Gentle, regular exercise routine. Avoid falls, injuries, overuse. Call if problems or questions otherwise return in 3 months with prior labs monitoring safety and efficacy of therapy-standing orders in [facility]. Assessment & Plan (06/17/2024 11:48 AM EDT): Follow up with Dr. Hicks for Sjogren's, asthma. Continue inhalers. Assessment & Plan (06/06/2024 12:47 PM EDT): Clinically currently well-controlled except L knee, hands and neck soreness and stiffness particularly in the morning. Get labs monitoring safety and efficacy of therapy today and prior to next visit-standing orders in [facility]. Consider neurology consult regarding headaches and family history of cerebral aneurysm causing in her mother at 48 if worsening or not improving. Continue current doses of methotrexate, folic acid and Plaquenil. If recurrent mouth sores become an issue she knows to call for a refill on either nystatin swish and swallow or miracle mouthwash. Alternatively I may offer leucovorin 24 hours after each weekly methotrexate dose. She may also switch Biotene mouthwash to alcohol free Act or Smart mouthwash. She plans to get updated on her vaccinations regarding RSV, yearly influenza, COVID-19 newest booster and Tdap preferably by mid to end July 2024. She knows to hold 2 weekly methotrexate doses after vaccination. Joint protection, energy conservation. Gentle, regular exercise routine. Avoid falls, injuries, overuse. Call if problems or questions otherwise return in 3 months with prior labs monitoring safety and efficacy of therapy-standing orders in [facility]. Assessment & Plan (03/14/2024 3:34 PM EDT): Clinically currently well-controlled. Get labs monitoring safety and efficacy of therapy prior to next visit-standing orders in [facility]. Consider neurology consult regarding headaches and family history of cerebral aneurysm causing in her mother at 48 if worsening or not improving. Continue current doses of methotrexate, folic acid and Plaquenil. If recurrent mouth sores beome an issue she knows to call for a refill on either nystatin swish and swallow or miracle mouthwash. Alternatively I may offer leucovorin 24 hours after each weekly methotrexate dose. She may also switch Biotene mouthwash to alcohol free Act or Smart mouthwash. Joint protection, energy conservation. Gentle, regular exercise routine. Avoid falls, injuries, overuse. Assessment & Plan (11/28/2023 9:29 AM EST): Clinically currently well-controlled. Get labs monitoring safety and efficacy of therapy prior to next visit-standing orders in [facility]. Consider neurology consult regarding headaches and family history of cerebral aneurysm causing in her mother at 48 if worsening or not improving. Continue current doses of methotrexate, folic acid and Plaquenil. If recurrent mouth sores beome an issue she knows to call for a refill on either nystatin swish and swallow or miracle mouthwash. Alternatively I may offer leucovorin 24 hours after each weekly methotrexate dose. She may also switch Biotene mouthwash to alcohol free Act or Smart mouthwash. Joint protection, energy conservation. Gentle, regular exercise routine. Avoid falls, injuries, overuse. Assessment & Plan (10/30/2022 3:43 PM EST): Get labs monitoring safety and efficacy of therapy today prior to next visit. Consider neurology consult regarding headaches and family history of cerebral aneurysm causing in her mother at 48 if worsening or not improving. Continue current doses of methotrexate, folic acid and Plaquenil. If recurrent mouth sores beome an issue she knows to call for a refill on either nystatin swish and swallow or miracle mouthwash. Alternatively I may offer leucovorin 24 hours after each weekly methotrexate dose. She may also switch Biotene mouthwash to alcohol free Act or Smart mouthwash. Joint protection, energy conservation. Gentle, regular exercise routine. Avoid falls, injuries, overuse. Assessment & Plan (07/22/2022 11:05 PM EDT): Get labs monitoring safety and efficacy of therapy today prior to next visit. Consider neurology consult regarding headaches and family history of cerebral aneurysm causing in her mother at 48 if worsening or not improving. Continue current doses of methotrexate, folic acid and Plaquenil. If recurrent mouth sores beome an issue she knows to call for a refill on either nystatin swish and swallow or miracle mouthwash. Alternatively I may offer leucovorin 24 hours after each weekly methotrexate dose. She may also switch Biotene mouthwash to alcohol free Act or Smart mouthwash. Joint protection, energy conservation. Gentle, regular exercise routine. Avoid falls, injuries, overuse. Assessment & Plan (04/04/2022 11:14 AM EDT): Get labs monitoring safety and efficacy of therapy today and prior to next visit in 3 months. Consider neurology consult regarding headaches and family history of cerebral aneurysm causing in her mother at 48 if worsening or not improving. Continue current doses of methotrexate, folic acid and Plaquenil. If recurrent mouth sores beome an issue she knows to call for a refill on either nystatin swish and swallow or miracle mouthwash. Alternatively I may offer leucovorin 24 hours after each weekly methotrexate dose. She may also switch Biotene mouthwash to alcohol free Act or Smart mouthwash. Joint protection, energy conservation. Gentle, regular exercise routine. Avoid falls, injuries, overuse. Assessment & Plan (02/28/2022 12:24 PM EDT): Definitely present but controlled. Assessment & Plan (12/07/2021 4:43 PM EST): Get labs monitoring safety and efficacy of therapy today and prior to next visit in 3 months. Consider neurology consult regarding headaches and family history of cerebral aneurysm causing in her mother at 48 if worsening or not improving. Continue current doses of methotrexate, folic acid and Plaquenil. If recurrent mouth sores beome an issue she knows to call for a refill on either nystatin swish and swallow or miracle mouthwash. Alternatively I may offer leucovorin 24 hours after each weekly methotrexate dose. She may also switch Biotene mouthwash to alcohol free Act or Smart mouthwash. Joint protection, energy conservation. Gentle, regular exercise routine. Avoid falls, injuries, overuse. Assessment & Plan (09/08/2021 3:46 PM EST): Get labs monitoring safety and efficacy of therapy today and prior to next visit in 3 months. Consider neurology consult regarding headaches and family history of cerebral aneurysm causing in her mother at 48 if worsening or not improving. Continue current doses of methotrexate, folic acid and Plaquenil. If recurrent mouth sores beome an issue she knows to call for a refill on either nystatin swish and swallow or miracle mouthwash. Alternatively I may offer leucovorin 24 hours after each weekly methotrexate dose. She may also switch Biotene mouthwash to alcohol free Act or Smart mouthwash. Joint protection, energy conservation. Gentle, regular exercise routine. Avoid falls, injuries, overuse. Assessment & Plan (06/02/2021 8:47 PM EDT): Get labs monitoring safety and efficacy of therapy today and prior to next visit in 3 months. Consider neurology consult regarding headaches and family history of cerebral aneurysm causing in her mother at 48 if worsening or not improving. Continue current doses of methotrexate, folic acid and Plaquenil. If recurrent mouth sores beome an issue she knows to call for a refill on either nystatin swish and swallow or miracle mouthwash. Alternatively I may offer leucovorin 24 hours after each weekly methotrexate dose. She may also switch Biotene mouthwash to alcohol free Act or Smart mouthwash. Joint protection, energy conservation. Gentle, regular exercise routine. Avoid falls, injuries, overuse. Assessment & Plan (04/05/2021 8:07 AM EDT): Get labs monitoring safety and efficacy of therapy prior to next visit in 2 months. Consider neurology consult regarding headaches and family history of cerebral aneurysm causing in her mother at 48 if worsening or not improving. Continue current doses of methotrexate, folic acid and Plaquenil. If recurrent mouth sores beome an issue she knows to call for a refill on either nystatin swish and swallow or miracle mouthwash. She may also switch Biotene mouthwash to alcohol free Act or Smart mouthwash. Joint protection, energy conservation. Gentle, regular exercise routine. Avoid falls, injuries, overuse. Assessment & Plan (01/22/2021 11:35 AM EDT): Get labs monitoring safety and efficacy of therapy prior to next visit in 3 months. Consider neurology consult regarding headaches and family history of cerebral aneurysm causing in her mother at 48 if worsening or not improving. Continue current doses of methotrexate, folic acid and Plaquenil. If recurrent mouth sores beome an issue she knows to call for a refill on either nystatin swish and swallow or miracle mouthwash. She may also switch Biotene mouthwash to alcohol free Act or Smart mouthwash. Joint protection, energy conservation. Gentle, regular exercise routine. Avoid falls, injuries, overuse. Assessment & Plan (10/21/2020 4:35 PM EST): Get labs monitoring safety and efficacy of therapy prior to next visit in 3 months. Consider neurology consult regarding headaches and family history of cerebral aneurysm causing in her mother at 48 if worsening or not improving. Continue current doses of methotrexate, folic acid and Plaquenil. If recurrent mouth sores beome an issue she knows to call for a refill on either nystatin swish and swallow or miracle mouthwash. She may also switch Biotene mouthwash to alcohol free Act or Smart mouthwash. Joint protection, energy conservation. Gentle, regular exercise routine. Avoid falls, injuries, overuse. Assessment & Plan (08/22/2020 6:53 PM EST): Get labs monitoring safety and efficacy of therapy prior to next visit in 3 months. Consider neurology consult regarding headaches and family history of cerebral aneurysm causing in her mother at 48 if worsening or not improving. Continue current doses of methotrexate, folic acid and Plaquenil. If recurrent mouth sores beome an issue she knows to call for a refill on either nystatin swish and swallow or miracle mouthwash. She may also switch Biotene mouthwash to alcohol free Act or Smart mouthwash. Joint protection, energy conservation. Gentle, regular exercise routine. Avoid falls, injuries, overuse. Assessment & Plan (05/09/2020 5:09 PM EDT): Get labs monitoring safety and efficacy of therapy prior to next visit in 3 months. Consider neurology consult regarding headaches and family history of cerebral aneurysm causing in her mother at 48 if worsening or not improving. Continue current doses of methotrexate, folic acid and Plaquenil. If recurrent mouth sores beome an issue she knows to call for a refill on either nystatin swish and swallow or miracle mouthwash. She may also switch Biotene mouthwash to alcohol free Act or Smart mouthwash. Get yearly influenza vaccination by July 2020. Joint protection, energy conservation. Gentle, regular exercise routine. Avoid falls, injuries, overuse. Assessment & Plan (03/28/2020 12:10 PM EDT): Get labs monitoring safety and efficacy of therapy today. Consider neurology consult regarding headaches and family history of cerebral aneurysm causing in her mother at 48 if worsening or not improving. Continue current doses of methotrexate, folic acid and Plaquenil. If recurrent mouth sores beome an issue she knows to call for a refill on either nystatin swish and swallow or miracle mouthwash. She may also switch Biotene mouthwash to alcohol free act or Smart mouthwash. Joint protection, energy conservation. Gentle, regular exercise routine. Avoid falls, injuries, overuse. Assessment & Plan (02/05/2020 12:08 PM EDT): Get labs monitoring safety and efficacy of therapy today. Get Shingrix vaccine once COVID 19 pandemia under control. Consider neurology consult regarding headaches and family history of cerebral aneurysm causing in her mother at 48 if worsening or not improving. Continue current doses of methotrexate, folic acid and Plaquenil. If recurrent rash becomes an issue she knows to call for a refill on either nystatin swish and swallow or miracle mouthwash. She may also switch Biotene mouthwash to alcohol free act or Smart mouthwash. Joint protection, energy conservation. Gentle, regular exercise routine. Avoid falls, injuries, overuse. Assessment & Plan (09/11/2019 8:44 AM EST): Get labs monitoring safety and efficacy of therapy today. Get Shingrix vaccine. Consider neurology consult regarding headaches and family history of cerebral aneurysm causing in her mother at 48 if worsening or not improving. Continue current doses of methotrexate, folic acid and Plaquenil. I agreed to refill her tramadol and nystatin suspension for episodes of increased joint pain and recurrent oral thrush. Joint protection, energy conservation. Gentle, regular exercise routine. Avoid falls, injuries, overuse. Assessment & Plan (07/08/2019 3:01 PM EDT): Get labs monitoring safety and efficacy of therapy today. Get yearly influenza vaccination by mid July 2019 and Shingrix vaccine. Consider neurology consult regarding headaches and family history of cerebral aneurysm causing in her mother at 48 if worsening or not improving. Continue current doses of methotrexate, folic acid and Plaquenil. I agreed to refill her tramadol and nystatin suspension for episodes of increased joint pain and recurrent oral thrush. Joint protection, energy conservation. Gentle, regular exercise routine. Avoid falls, injuries, overuse. Assessment & Plan (03/25/2019 10:16 AM EDT): Get labs monitoring safety and efficacy of therapy today. Consider neurology consult regarding recent daily headaches and family history of cerebral aneurysm causing in her mother at 48. Continue current doses of methotrexate, folic acid and Plaquenil. Joint protection, energy conservation. Gentle, regular exercise routine. Avoid falls, injuries, overuse. Assessment & Plan (12/23/2018 2:47 PM EDT): Get labs monitoring safety and efficacy of therapy today. Consider neurology consult regarding recent daily headaches and family history of cerebral aneurysm causing in her mother at 48. Continue current doses of methotrexate, folic acid and Plaquenil. Joint protection, energy conservation. Gentle, regular exercise routine. Avoid falls, injuries, overuse. Assessment & Plan (11/19/2018 8:54 PM EST): Continue current doses of methotrexate, folic acid and Plaquenil. Joint protection, energy conservation. Gentle, regular exercise routine. Avoid falls, injuries, overuse. Primary osteoarthritis involving multiple joints 10/04/2017 Assessment & Plan (03/19/2025 9:49 AM EDT): Joint protection, energy conservation. Gentle, regular exercise routine. Avoid falls, injuries, overuse. Keep body weight in ideal range for her height. She received left knee geniculate embolization on 03/12/2025 that appears as more the definitive pain control modality She is scheduled for a follow-up with operating surgeon in April 2025 hoping for nice improvement by then. Call if worse or with questions/problems. Assessment & Plan (12/18/2024 10:06 PM EDT): Joint protection, energy conservation. Gentle, regular exercise routine. Avoid falls, injuries, overuse. Keep body weight in ideal range for her height. She may benefit from topical cream such as Arnica, Biofreeze, Aspercreme versus medicated patches such as salonpas, icy hot patch 2-3 times daily and if necessary at bedtime x 3 weeks. Call if worse or with questions/problems. Procedure: After an informed written consent, under sterile conditions using Ethyl chloride spray for local anesthesia I have injected 40 mg Kenalog and 2 cc 1% Lidocaine into Right knee from infero-medial approach uneventfully. Details of post-procedure care were explained to the patient in the office and given in writing. Provider: Margaux Montanez MD Patient: Herlinda Vanessa Haskins : 1960 Date: 12/18/2024 Procedure: After an informed written consent, under sterile conditions using Ethyl chloride spray for local anesthesia I have injected 40 mg Kenalog and 2 cc 1% Lidocaine into Left knee from infero-medial approach uneventfully. Details of post-procedure care were explained to the patient in the office and given in writing. Provider: Margaux Montanez MD Patient: Herlinda Vanessa Haskins : 1960 Date: 12/18/2024 Assessment & Plan (10/03/2024 7:00 PM EST): Joint protection, energy conservation. Gentle, regular exercise routine. Avoid falls, injuries, overuse. Keep body weight in ideal range for her height. She may benefit from topical cream such as Arnica, Biofreeze, Aspercreme versus medicated patches such as salonpas, icy hot patch 2-3 times daily and if necessary at bedtime x 3 weeks. Call if worse or with questions/problems. Assessment & Plan (06/06/2024 11:13 AM EDT): Joint protection, energy conservation. Gentle, regular exercise routine. Avoid falls, injuries, overuse. Keep body weight in ideal range for her height. She may benefit from topical cream such as Arnica, Biofreeze, Aspercreme versus medicated patches such as salonpas, icy hot patch 2-3 times daily and if necessary at bedtime x 3 weeks. Call if worse or with questions/problems. Assessment & Plan (03/14/2024 3:34 PM EDT): Joint protection, energy conservation. Gentle, regular exercise routine. Avoid falls, injuries, overuse. Keep body weight in ideal range for her height. She may benefit from topical cream such as Arnica, Biofreeze, Aspercreme versus medicated patches such as salonpas, icy hot patch 2-3 times daily and if necessary at bedtime x 3 weeks. Call if worse or with questions/problems. Assessment & Plan (11/28/2023 9:28 AM EST): Joint protection, energy conservation. Gentle, regular exercise routine. Avoid falls, injuries, overuse. Keep body weight in ideal range for her height. She may benefit from topical cream such as Arnica, Biofreeze, Aspercreme versus medicated patches such as salonpas, icy hot patch 2-3 times daily and if necessary at bedtime x 3 weeks. Call if worse or with questions/problems. Assessment & Plan (10/30/2022 3:43 PM EST): Joint protection, energy conservation. Gentle, regular exercise routine. Avoid falls, injuries, overuse. Keep body weight in ideal range for her height. She may benefit from topical cream such as Arnica, Biofreeze, Aspercreme versus medicated patches such as salonpas, icy hot patch 2-3 times daily and if necessary at bedtime x 3 weeks. Call if worse or with questions/problems. Assessment & Plan (07/22/2022 11:06 PM EDT): Joint protection, energy conservation. Gentle, regular exercise routine. Avoid falls, injuries, overuse. Keep body weight in ideal range for her height. She may benefit from topical cream such as Arnica, Biofreeze, Aspercreme versus medicated patches such as salonpas, icy hot patch 2-3 times daily and if necessary at bedtime x 3 weeks. Call if worse or with questions/problems. Assessment & Plan (03/20/2022 12:44 PM EDT): Joint protection, energy conservation. Gentle, regular exercise routine. Avoid falls, injuries, overuse. Keep body weight in ideal range for her height. She may benefit from topical cream such as Arnica, Biofreeze, Aspercreme versus medicated patches such as salonpas, icy hot patch 2-3 times daily and if necessary at bedtime x 3 weeks. Call if worse or with questions/problems. Assessment & Plan (12/07/2021 4:43 PM EST): Joint protection, energy conservation. Gentle, regular exercise routine. Avoid falls, injuries, overuse. Keep body weight in ideal range for her height. She may benefit from topical cream such as Arnica, Biofreeze, Aspercreme versus medicated patches such as salonpas, icy hot patch 2-3 times daily and if necessary at bedtime x 3 weeks. Call if worse or with questions/problems. Assessment & Plan (09/08/2021 3:45 PM EST): Joint protection, energy conservation. Gentle, regular exercise routine. Avoid falls, injuries, overuse. Keep body weight in ideal range for her height. She may benefit from topical cream such as Arnica, Biofreeze, Aspercreme versus medicated patches such as salonpas, icy hot patch 2-3 times daily and if necessary at bedtime x 3 weeks. Call if worse or with questions/problems. Assessment & Plan (06/02/2021 8:44 PM EDT): Joint protection, energy conservation. Gentle, regular exercise routine. Avoid falls, injuries, overuse. Keep body weight in ideal range for her height. She may benefit from topical cream such as Arnica, Biofreeze, Aspercreme versus medicated patches such as salonpas, icy hot patch 2-3 times daily and if necessary at bedtime x 3 weeks. Call if worse or with questions/problems. Assessment & Plan (03/24/2021 11:20 AM EDT): Joint protection, energy conservation. Gentle, regular exercise routine. Avoid falls, injuries, overuse. Keep body weight in ideal range for her height. She may benefit from topical cream such as Arnica, Biofreeze, Aspercreme versus medicated patches such as salonpas, icy hot patch 2-3 times daily and if necessary at bedtime x 3 weeks. Call if worse or with questions/problems. Procedure: After an informed oral consent, under sterile conditions using Ethyl chloride spray for local anesthesia I have injected 40 mg DepoMedrol and 2 cc 1% Lidocaine into Left knee from lateral approach uneventfully. Details of post-procedure care were explained to the patient in the office and given in writing. Assessment & Plan (01/12/2021 4:00 PM EDT): Joint protection, energy conservation. Gentle, regular exercise routine. Avoid falls, injuries, overuse. Keep body weight in ideal range for her height. She may benefit from topical cream such as Arnica, Biofreeze, Aspercreme versus medicated patches such as salonpas, icy hot patch 2-3 times daily and if necessary at bedtime x 3 weeks. Call if worse or with questions/problems. Procedure: After an informed oral consent, under sterile conditions using Ethyl chloride spray for local anesthesia I have injected 40 mg DepoMedrol and 2 cc 1% Lidocaine into Left knee from lateral approach uneventfully. Details of post-procedure care were explained to the patient in the office and given in writing. Assessment & Plan (10/21/2020 4:35 PM EST): Joint protection, energy conservation. Gentle, regular exercise routine. Avoid falls, injuries, overuse. Keep body weight in ideal range for her height. She may benefit from topical cream such as Arnica, Biofreeze, Aspercreme versus medicated patches such as salonpas, icy hot patch 2-3 times daily and if necessary at bedtime x 3 weeks. Call if worse or with questions/problems. Assessment & Plan (08/22/2020 6:54 PM EST): Joint protection, energy conservation. Gentle, regular exercise routine. Avoid falls, injuries, overuse. Keep body weight in ideal range for her height. She may benefit from topical cream such as Arnica, Biofreeze, Aspercreme versus medicated patches such as salonpas, icy hot patch 2-3 times daily and if necessary at bedtime x 3 weeks. Call if worse or with questions/problems. Assessment & Plan (05/09/2020 4:52 PM EDT): Joint protection, energy conservation. Gentle, regular exercise routine. Avoid falls, injuries, overuse. Keep body weight in ideal range for her height. She may benefit from topical cream such as Arnica, Biofreeze, Aspercreme versus medicated patches such as salonpas, icy hot patch 2-3 times daily and if necessary at bedtime x 3 weeks. Call if worse or with questions/problems. Assessment & Plan (03/28/2020 12:12 PM EDT): Joint protection, energy conservation. Gentle, regular exercise routine. Avoid falls, injuries, overuse. Keep body weight in ideal range for her height. She may benefit from topical cream such as Arnica, Biofreeze, Aspercreme versus medicated patches such as salonpas, icy hot patch 2-3 times daily and if necessary at bedtime x 3 weeks. Call if worse or with questions/problems. Assessment & Plan (09/11/2019 8:43 AM EST): Joint protection, energy conservation. Continue medications exactly as prescribed. Daily, gentle exercise routine as educated in PT. Work on reducing body weight as close as possible to ideal range for her height. Call with questions or problems. Assessment & Plan (07/08/2019 3:02 PM EDT): Joint protection, energy conservation. Continue medications exactly as prescribed. Daily, gentle exercise routine as educated in PT. Work on reducing body weight as close as possible to ideal range for her height. Call with questions or problems. Assessment & Plan (03/25/2019 10:17 AM EDT): Joint protection, energy conservation. Continue medications exactly as prescribed. Daily, gentle exercise routine as educated in PT. Work on reducing body weight as close as possible to ideal range for her height. Call with questions or problems. Assessment & Plan (12/23/2018 2:29 PM EDT): Joint protection, energy conservation. Continue medications exactly as prescribed. Daily, gentle exercise routine as educated in PT. Work on reducing body weight as close as possible to ideal range for her height. Call with questions or problems. Assessment & Plan (11/19/2018 8:56 PM EST): Joint protection, energy conservation. Continue medications exactly as prescribed. Daily, gentle exercise routine as educated in PT. Work on reducing body weight as close as possible to ideal range for her height. Call with questions or problems. Tracheobronchomalacia determined by bronchoscopy 10/04/2017 Assessment & Plan (09/11/2024 8:22 PM EST): Longstanding tracheobronchomalacia, fortunately no flares in approximately the last year. Would likely benefit from weight loss. Planning on discussing medical therapy with PCP. Will refill Hycodan cough syrup for use during exacerbations. Will repeat full PFTs prior to next follow-up visit, will have been approximately 15 years since last checked. These were normal. Assessment & Plan (09/10/2023 4:02 PM EST): Severe cough most suggestive of an exacerbation of her bronchomalacia. I suspect the cough is begetting cough with no other evidence of infection. PLAN: Continue Symbicort and montelukast Refill for DuoNebs to use 2-3 times a day as needed Start high-dose Mucinex 1200 mg twice daily Repeat prednisone with prolonged taper Continue Hycodan, with schedule IV times a day to suppress cough If fails to respond to above, would need repeat chest CT, sputum culture and consider bronchoscopy Assessment & Plan (02/28/2022 4:44 PM EDT): No recent exacerbations. Agree with holding bronchodilators at this time, resume at first sign of exacerbation. Since never completed, recommend obtain full PFTs. Assessment & Plan (11/07/2019 1:46 PM EST): Moderate left-sided bronchomalacia noted on bronchoscopy over 5 years ago. Pending results of further work-up, repeat airway exam could be considered and pending results of PFTs and if no other cause determined for patient's exertional dyspnea. Assessment & Plan (05/22/2019 8:35 AM EDT): At baseline well-controlled but with frequent severe exacerbations manifesting as severe bronchitis with intractable cough. Early management with anti-inflammatories, bronchodilators, as well as aggressive cough suppression is essential for mitigating progression. With early signs of exacerbation, resume Spiriva plus DuoNeb's. Aggressive cough suppression with Hycodan or similar. Patient intolerant of codeine. Additional high-dose dextromethorphan may provide added benefit. Early steroids for short course and if cough productive, antibiotics. Gastroesophageal reflux disease with esophagitis 10/04/2017 Assessment & Plan (03/19/2025 9:10 AM EDT): Avoid late, large, spicy meals. Keep headboard elevated at 45 angle for nighttime. Carefully continue Protonix 40 mg twice daily as prescribed. Assessment & Plan (12/18/2024 10:05 PM EDT): Avoid late, large, spicy meals. Keep headboard elevated at 45 angle for nighttime. Carefully continue Protonix 40 mg twice daily as prescribed. Assessment & Plan (06/17/2024 11:46 AM EDT): On high dose therapy with PPI and H2 bladimir through GI and she remains symptomatic. Await endoscopies this week. Assessment & Plan (11/28/2023 9:30 AM EST): Avoid late, large, spicy meals. Keep headboard elevated at 45 angle for nighttime. Assessment & Plan (04/23/2023 4:47 PM EDT): Follow up with GI as scheduled. She is taking high dose PPI and H2 bladimir after paraesophageal hernia repair earlier this year. Avoid ondansetron as able. Assessment & Plan (11/04/2022 10:54 PM EST): She has a large paraesophageal hernia documented to slide entire stomach pancreas and third chest cavity that needs to be repaired-surgery postponed from early October to early November 2022 secondary to COVID-19 infection. Avoid late, large, spicy meals. Keep headboard elevated at 45 angle for nighttime. Assessment & Plan (06/28/2022 4:12 PM EDT): Avoid late, large, spicy meals. Keep headboard elevated at 45 angle for nighttime. Assessment & Plan (03/20/2022 12:45 PM EDT): Avoid late, large, spicy meals. Keep headboard elevated at 45 angle for nighttime. Assessment & Plan (02/28/2022 12:25 PM EDT): Controlled at this time. Assessment & Plan (12/07/2021 4:45 PM EST): Avoid late, large, spicy meals. Keep headboard elevated at 45 angle for nighttime. Assessment & Plan (09/08/2021 3:46 PM EST): Avoid late, large, spicy meals. Keep headboard elevated at 45 angle for nighttime. Assessment & Plan (05/25/2021 4:46 PM EDT): Avoid late, large, spicy meals. Keep headboard elevated at 45 angle for nighttime. Assessment & Plan (03/24/2021 11:23 AM EDT): Avoid late, large, spicy meals. Keep headboard elevated at 45 angle for nighttime. Assessment & Plan (01/12/2021 4:01 PM EDT): Avoid late, large, spicy meals. Keep headboard elevated at 45 angle for nighttime. Assessment & Plan (10/24/2020 9:01 PM EST): Avoid late, large, spicy meals. Keep headboard elevated at 45 angle for nighttime. Assessment & Plan (08/22/2020 6:55 PM EST): Avoid late, large, spicy meals. Keep headboard elevated at 45 angle for nighttime. Assessment & Plan (05/09/2020 4:53 PM EDT): Avoid late, large, spicy meals. Keep headboard elevated at 45 angle for nighttime. Assessment & Plan (03/28/2020 12:15 PM EDT): Continue Protonix 40 mg daily as prescribed. Avoid late, large, spicy meals. Keep headboard elevated at 45 angle for nighttime. Assessment & Plan (11/07/2019 1:50 PM EST): Large Bochdalek hernia, questionably increasing in size. Given patient's complex airway disease and risk for recurrent infection, recommend GI follow-up to discuss pros and cons of possible surgical evaluation and correction. Assessment & Plan (09/11/2019 8:47 AM EST): Avoid late, large, spicy meals. Keep headboard elevated at 45 angle for nighttime. Assessment & Plan (07/08/2019 3:03 PM EDT): Avoid late, large, spicy meals. Keep headboard elevated at 45 angle for nighttime. Assessment & Plan (03/25/2019 10:19 AM EDT): Avoid late, large, spicy meals. Keep headboard elevated at 45 angle for nighttime. Assessment & Plan (12/23/2018 2:34 PM EDT): Avoid late, large, spicy meals. Keep headboard elevated at 45 angle for nighttime. Assessment & Plan (11/19/2018 8:56 PM EST): Avoid late, large, spicy meals. Keep headboard elevated at 45 angle for nighttime. Inflammatory arthritis 10/04/2017 Assessment & Plan (03/19/2025 9:49 AM EDT): Intermittently involving mostly her wrists and small joints of hands and knees, L>R. Due to increased pain and swelling with stiffness in her R knee she has requested R knee cortisone injection today-see details in procedure note below. Encouraged to continue adjusted weekly s.c.methotrexate along with daily Plaquenil and folic acid. Monitor for mouth sores, GI upset or signs of infection. Return for monitoring labs at least every 3-4 months-standing orders in [facility]. Gentle, regular exercise routine. Avoid falls, injuries, overuse. Assessment & Plan (12/18/2024 1:01 PM EDT): Intermittently involving mostly her wrists and small joints of hands and knees, L>R. Due to increased pain and swelling with stiffness in her R knee she has requested R knee cortisone injection today-see details in procedure note below. Encouraged to continue adjusted weekly s.c.methotrexate along with daily Plaquenil and folic acid. Monitor for mouth sores, GI upset or signs of infection. Return for monitoring labs at least every 3 months-standing orders in [facility]. Gentle, regular exercise routine. Avoid falls, injuries, overuse. Assessment & Plan (10/03/2024 7:02 PM EST): Intermittently involving mostly her wrists and small joints of hands and knees, L>R. Due to increased pain and swelling with stiffness in her R knee she has requested R knee cortisone injection today-see details in procedure note below. Encouraged to continue adjusted weekly s.c.methotrexate along with daily Plaquenil and folic acid. Monitor for mouth sores, GI upset or signs of infection. Return for monitoring labs at least every 3 months-standing orders in [facility]. Gentle, regular exercise routine. Avoid falls, injuries, overuse. Assessment & Plan (06/06/2024 12:48 PM EDT): Intermittently involving mostly her wrists and small joints of wrists, hands and knees, L>R. Due to increased pain and swelling with stiffness in her left knee she is requesting left knee aspiration cortisone injection today-see details in procedure note below. Encouraged to continue weekly methotrexate along with daily Plaquenil and folic acid. Gentle, regular exercise routine. Avoid falls, injuries, overuse. Procedure: After an informed written consent, under sterile conditions using Ethyl chloride spray for local anesthesia and 2 cc 1% Lidocaine as topical anesthetic I have attempted to aspirate fluid from her left knee via lateral approach but have not received any. Following aspiration attempt I have injected via the same needle 40 mg Kenalog and 2 cc 1% Lidocaine into Left knee from lateral approach uneventfully. Details of post-procedure care were explained to the patient in the office and given in writing. Provider: Margaux Montanez MD Patient: Herlinda Haskins : 1960 Date: 06/06/2024 Assessment & Plan (03/23/2024 12:09 PM EDT): Intermittently involving mostly her wrists and small joints of wrists, hands and knees, L>R. Encouraged to continue weekly methotrexate along with daily Plaquenil and folic acid. Gentle, regular exercise routine. Avoid falls, injuries, overuse. Assessment & Plan (11/28/2023 9:28 AM EST): Currently involving mostly her wrists and small joints of wrists, hands and knees, L>R. Encouraged to continue weekly methotrexate along with daily Plaquenil and folic acid. Gentle, regular exercise routine. Avoid falls, injuries, overuse. Assessment & Plan (05/06/2023 11:51 AM EDT): Currently involving mostly her wrists and small joints of wrists, hands and knees, L>R. Encouraged to continue weekly methotrexate along with daily Plaquenil and folic acid. Gentle, regular exercise routine. Avoid falls, injuries, overuse. On her request I agreed to inject her left knee today. Procedure: After an informed oral consent, under sterile conditions using Ethyl chloride spray for local anesthesia and 3 cc 1% Lidocaine as topical anesthetic I have injected 40 mg Kenalog and 2 cc 1% Lidocaine into Left knee from laterally approach uneventfully. Details of post-procedure care were explained to the patient in the office and given in writing. Provider: Margaux Montanez MD Patient: Herlinda Mendez Saleem : 1960 Date: 05/04/2023 Assessment & Plan (11/04/2022 10:52 PM EST): Currently involving mostly her wrists and small joints of hands most likely secondary to holding methotrexate and Plaquenil in preparation for her paraesophageal hernia repair initially scheduled for 10/12/2021 now postponed until 11/17/2022 due to recent COVID-19 infection. I will touch base with her surgeon to ask specifics regarding holding Plaquenil in addition to methotrexate. Assessment & Plan (03/20/2022 12:43 PM EDT): Procedure: After an informed oral consent, under sterile conditions using Ethyl chloride spray for local anesthesia I have injected 40 mg DepoMedrol and 1 cc 1% Lidocaine into Left knee from infero-lateral approach uneventfully. Details of post-procedure care were explained to the patient in the office and given in writing. Provider: Margaux Montanez MD Patient: Herlinda Miranda Saleem : 1960 Date: 03/20/2022 Assessment & Plan (12/07/2021 4:42 PM EST): Procedure: After an informed oral consent, under sterile conditions using Ethyl chloride spray for local anesthesia I have injected 40 mg DepoMedrol and 1 cc 1% Lidocaine into Left knee from infero-medial approach uneventfully. Details of post-procedure care were explained to the patient in the office and given in writing. Provider: Margaux Montanez MD Patient: Herlinda Haskins : 1960 Date: 12/07/2021 Assessment & Plan (09/08/2021 3:45 PM EST): .Carefully continue current Plaquenil, methotrexate and folic acid as prescribed. To reduce dyspepsia with each weekly dose of methotrexate I am switching to subcutaneous route. Joint protection, energy conservation. Avoid falls, injuries, overuse. Keep body weight in ideal range for her height. Topical cream versus patch as needed. Return for labs monitoring safety and efficacy of therapy at least every 3 months. Procedure: After an informed oral consent, under sterile conditions using Ethyl chloride spray for local anesthesia I have injected 40 mg DepoMedrol and 2 cc 1% Lidocaine into [Left knee from infero-lateral approach uneventfully. Details of post-procedure care were explained to the patient in the office and given in writing. Provider: Margaux Montanez MD Patient: Herlinda Haskins : 1960 Date: 09/08/2021 Assessment & Plan (06/02/2021 8:46 PM EDT): Carefully continue current Plaquenil, methotrexate and folic acid as prescribed. To reduce dyspepsia with each weekly dose of methotrexate I am switching to subcutaneous route. Joint protection, energy conservation. Avoid falls, injuries, overuse. Keep body weight in ideal range for her height. Topical cream versus patch as needed. Return for labs monitoring safety and efficacy of therapy at least every 3 months. Assessment & Plan (03/24/2021 11:21 AM EDT): Carefully continue current Plaquenil, methotrexate and folic acid as prescribed. Joint protection, energy conservation. Avoid falls, injuries, overuse. Keep body weight in ideal range for her height. Topical cream versus patch as needed. Return for labs monitoring safety and efficacy of therapy at least every 3 months. Assessment & Plan (01/22/2021 11:36 AM EDT): Carefully continue current Plaquenil, methotrexate and folic acid as prescribed. Joint protection, energy conservation. Avoid falls, injuries, overuse. Keep body weight in ideal range for her height. Topical cream versus patch as needed. Return for labs monitoring safety and efficacy of therapy at least every 3 months. Assessment & Plan (08/19/2020 11:08 AM EST): Carefully continue current Plaquenil, methotrexate and folic acid as prescribed. Joint protection, energy conservation. Avoid falls, injuries, overuse. Keep body weight in ideal range for her height. Topical cream versus patch as needed. Return for labs monitoring safety and efficacy of therapy at least every 3 months. Procedure: After an informed oral consent, under sterile conditions using Ethyl chloride spray for local anesthesia I have injected 40 mg DepoMedrol and 2 cc 1% Lidocaine into Left knee from infero-medial approach uneventfully. Details of post-procedure care were explained to the patient in the office and given in writing. Assessment & Plan (05/09/2020 4:53 PM EDT): Carefully continue current Plaquenil, methotrexate and folic acid as prescribed. Joint protection, energy conservation. Avoid falls, injuries, overuse. Keep body weight in ideal range for her height. Topical cream versus patch as needed. Return for labs monitoring safety and efficacy of therapy at least every 3 months. Assessment & Plan (03/28/2020 12:13 PM EDT): Carefully continue current Plaquenil, methotrexate and folic acid as prescribed. Joint protection, energy conservation. Avoid falls, injuries, overuse. Keep body weight in ideal range for her height. Topical cream versus patch as needed. Return for labs monitoring safety and efficacy of therapy at least every 3 months. Assessment & Plan (09/11/2019 8:43 AM EST): Carefully continue current Plaquenil, methotrexate and folic acid as prescribed. Joint protection, energy conservation. Avoid falls, injuries, overuse. Keep body weight in ideal range for her height. Topical cream versus patch as needed. Return for labs monitoring safety and efficacy of therapy at least every 3 months. Assessment & Plan (07/08/2019 3:02 PM EDT): Carefully continue current Plaquenil, methotrexate and folic acid as prescribed. Joint protection, energy conservation. Avoid falls, injuries, overuse. Keep body weight in ideal range for her height. Topical cream versus patch as needed. Return for labs monitoring safety and efficacy of therapy at least every 3 months. Assessment & Plan (03/25/2019 10:17 AM EDT): Carefully continue current Plaquenil, methotrexate and folic acid as prescribed. Joint protection, energy conservation. Avoid falls, injuries, overuse. Keep body weight in ideal range for her height. Topical cream versus patch as needed. Return for labs monitoring safety and efficacy of therapy at least every 3 months. Assessment & Plan (12/23/2018 2:31 PM EDT): Carefully continue current Plaquenil, methotrexate and folic acid as prescribed. Joint protection, energy conservation. Avoid falls, injuries, overuse. Keep body weight in ideal range for her height. Topical cream versus patch as needed. Return for labs monitoring safety and efficacy of therapy at least every 3 months. 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 Use double contraception if sexually active. Get regular lab work monitoring safety at least every 2-3 months. Hold methotrexate whenever running fever, feeling sick, requiring antibiotics. Wait at least 48 hours after the last dose of antibiotic before restarting methotrexate on a regular schedule. Assessment & Plan (12/18/2024 1:02 PM EDT): Remain alcohol free while taking methotrexate. Use double contraception if sexually active. Get regular lab work monitoring safety at least every 2-3 months. Hold methotrexate whenever running fever, feeling sick, requiring antibiotics. Wait at least 48 hours after the last dose of antibiotic before restarting methotrexate on a regular schedule. Assessment & Plan (10/03/2024 7:03 PM EST): Remain alcohol free while taking methotrexate. Use double contraception if sexually active. Get regular lab work monitoring safety at least every 2-3 months. Hold methotrexate whenever running fever, feeling sick, requiring antibiotics. Wait at least 48 hours after the last dose of antibiotic before restarting methotrexate on a regular schedule. Assessment & Plan (06/06/2024 11:14 AM EDT): Remain alcohol free while taking methotrexate. Use double contraception if sexually active. Get regular lab work monitoring safety at least every 2-3 months. Hold methotrexate whenever running fever, feeling sick, requiring antibiotics. Wait at least 48 hours after the last dose of antibiotic before restarting methotrexate on a regular schedule. Assessment & Plan (03/14/2024 3:35 PM EDT): Remain alcohol free while taking methotrexate. Use double contraception if sexually active. Get regular lab work monitoring safety at least every 2-3 months. Hold methotrexate whenever running fever, feeling sick, requiring antibiotics. Wait at least 48 hours after the last dose of antibiotic before restarting methotrexate on a regular schedule. Assessment & Plan (11/28/2023 8:06 AM EST): Remain alcohol free while taking methotrexate. Use double contraception if sexually active. Get regular lab work monitoring safety at least every 2-3 months. Hold methotrexate whenever running fever, feeling sick, requiring antibiotics. Wait at least 48 hours after the last dose of antibiotic before restarting methotrexate on a regular schedule. Assessment & Plan (05/04/2023 2:51 PM EDT): Remain alcohol free while taking methotrexate. Use double contraception if sexually active. Get regular lab work monitoring safety at least every 2-3 months. Hold methotrexate whenever running fever, feeling sick, requiring antibiotics. Wait at least 48 hours after the last dose of antibiotic before restarting methotrexate on a regular schedule. Assessment & Plan (10/30/2022 3:45 PM EST): Remain alcohol free while taking methotrexate. Use double contraception if sexually active. Get regular lab work monitoring safety at least every 2-3 months. Hold methotrexate whenever running fever, feeling sick, requiring antibiotics. Wait at least 48 hours after the last dose of antibiotic before restarting methotrexate on a regular schedule. Assessment & Plan (06/28/2022 4:13 PM EDT): Remain alcohol free while taking methotrexate. Use double contraception if sexually active. Get regular lab work monitoring safety at least every 2-3 months. Hold methotrexate whenever running fever, feeling sick, requiring antibiotics. Wait at least 48 hours after the last dose of antibiotic before restarting methotrexate on a regular schedule. Assessment & Plan (03/20/2022 12:45 PM EDT): Remain alcohol free while taking methotrexate. Use double contraception if sexually active. Get regular lab work monitoring safety at least every 2-3 months. Hold methotrexate whenever running fever, feeling sick, requiring antibiotics. Wait at least 48 hours after the last dose of antibiotic before restarting methotrexate on a regular schedule. Assessment & Plan (12/07/2021 4:45 PM EST): Remain alcohol free while taking methotrexate. Use double contraception if sexually active. Get regular lab work monitoring safety at least every 2-3 months. Hold methotrexate whenever running fever, feeling sick, requiring antibiotics. Wait at least 48 hours after the last dose of antibiotic before restarting methotrexate on a regular schedule. Assessment & Plan (09/08/2021 3:47 PM EST): Remain alcohol free while taking methotrexate. Use double contraception if sexually active. Get regular lab work monitoring safety at least every 2-3 months. Hold methotrexate whenever running fever, feeling sick, requiring antibiotics. Wait at least 48 hours after the last dose of antibiotic before restarting methotrexate on a regular schedule. Assessment & Plan (05/25/2021 4:45 PM EDT): Remain alcohol free while taking methotrexate. Use double contraception if sexually active. Get regular lab work monitoring safety at least every 2-3 months. Hold methotrexate whenever running fever, feeling sick, requiring antibiotics. Wait at least 48 hours after the last dose of antibiotic before restarting methotrexate on a regular schedule. Assessment & Plan (03/24/2021 11:21 AM EDT): Remain alcohol free while taking methotrexate. Use double contraception if sexually active. Get regular lab work monitoring safety at least every 2-3 months. Hold methotrexate whenever running fever, feeling sick, requiring antibiotics. Wait at least 48 hours after the last dose of antibiotic before restarting methotrexate on a regular schedule. Assessment & Plan (01/12/2021 4:02 PM EDT): Remain alcohol free while taking methotrexate. Use double contraception if sexually active. Get regular lab work monitoring safety at least every 2-3 months. Hold methotrexate whenever running fever, feeling sick, requiring antibiotics. Wait at least 48 hours after the last dose of antibiotic before restarting methotrexate on a regular schedule. Assessment & Plan (10/24/2020 9:02 PM EST): Remain alcohol free while taking methotrexate. Use double contraception if sexually active. Get regular lab work monitoring safety at least every 2-3 months. Hold methotrexate whenever running fever, feeling sick, requiring antibiotics. Wait at least 48 hours after the last dose of antibiotic before restarting methotrexate on a regular schedule. Assessment & Plan (08/22/2020 6:55 PM EST): Remain alcohol free while taking methotrexate. Use double contraception if sexually active. Get regular lab work monitoring safety at least every 2-3 months. Hold methotrexate whenever running fever, feeling sick, requiring antibiotics. Wait at least 48 hours after the last dose of antibiotic before restarting methotrexate on a regular schedule. Assessment & Plan (03/28/2020 12:13 PM EDT): Remain alcohol free while taking methotrexate. Use double contraception if sexually active. Get regular lab work monitoring safety at least every 2-3 months. Hold methotrexate whenever running fever, feeling sick, requiring antibiotics. Wait at least 48 hours after the last dose of antibiotic before restarting methotrexate on a regular schedule. Assessment & Plan (02/05/2020 10:50 AM EDT): Remain alcohol free while taking methotrexate. Use double contraception if sexually active. Get regular lab work monitoring safety at least every 2-3 months. Hold methotrexate whenever running fever, feeling sick, requiring antibiotics. Wait at least 48 hours after the last dose of antibiotic before restarting methotrexate on a regular schedule. Assessment & Plan (09/11/2019 8:47 AM EST): Remain alcohol free while taking methotrexate. Use double contraception if sexually active. Get regular lab work monitoring safety at least every 2-3 months. Hold methotrexate whenever running fever, feeling sick, requiring antibiotics. Wait at least 48 hours after the last dose of antibiotic before restarting methotrexate on a regular schedule. Assessment & Plan (07/08/2019 3:06 PM EDT): Remain alcohol free while taking methotrexate. Use double contraception if sexually active. Get regular lab work monitoring safety at least every 2-3 months. Hold methotrexate whenever running fever, feeling sick, requiring antibiotics. Wait at least 48 hours after the last dose of antibiotic before restarting methotrexate on a regular schedule. Assessment & Plan (03/25/2019 10:21 AM EDT): Remain alcohol free. Use double contraception if sexually active. Get regular lab work monitoring safety at least every 2-3 months. Hold methotrexate whenever running fever, feeling sick, requiring antibiotics Assessment & Plan (12/23/2018 2:35 PM EDT): Remain alcohol free. Use double contraception if sexually active. Get regular lab work monitoring safety at least every 2-3 months. Hold methotrexate whenever running fever, feeling sick, requiring antibiotics Assessment & Plan (11/19/2018 8:58 PM EST): Remain alcohol free. Use double contraception if sexually active. Get regular lab work monitoring safety at least every 2-3 months. Hold methotrexate whenever running fever, feeling sick, requiring antibiotics On selective serotonin reuptake inhibitor (SSRI) therapy 10/04/2017 Assessment & Plan (12/07/2021 4:45 PM EST): Monitor for mood swings, increased muscle rigidity and temperature intolerance. Assessment & Plan (09/08/2021 3:47 PM EST): Monitor for mood swings, increased muscle rigidity and temperature intolerance. Assessment & Plan (01/12/2021 4:03 PM EDT): Monitor for mood swings, increased muscle rigidity and temperature intolerance. Assessment & Plan (10/24/2020 9:02 PM EST): Monitor for mood swings, increased muscle rigidity and temperature intolerance. Assessment & Plan (08/22/2020 6:56 PM EST): Monitor for mood swings, increased muscle rigidity and temperature intolerance. Assessment & Plan (03/28/2020 12:14 PM EDT): Monitor for mood swings, increased muscle rigidity and temperature intolerance. Assessment & Plan (12/23/2018 2:35 PM EDT): Monitor for mood swings, increased muscle rigidity and temperature intolerance. Assessment & Plan (11/19/2018 8:59 PM EST): Monitor for mood swings, increased muscle rigidity and temperature intolerance. Trochanteric bursitis of left hip 10/04/2017 Assessment & Plan (10/21/2020 4:37 PM EST): Avoid walking on the incline and stairs. Limit heavy lifting and sudden turns, stooping and bending. On patient's request I agreed to inject her left trochanteric bursa with a mixture of 1% lidocaine and 40 mg [id number] refer for details to procedure note below. Procedure: After an informed oral consent, under sterile conditions using Ethyl chloride spray for local anesthesia I have injected 40 mg DepoMedrol and 2 cc 1% Lidocaine into Left trochanteric bursa uneventfully. Details of post-procedure care were explained to the patient in the office and given in writing. Assessment & Plan (05/09/2020 4:54 PM EDT): Avoid walking on the incline and stairs. Limit heavy lifting and sudden turns, stooping and bending. On patient's request I agreed to inject her left trochanteric bursa with a mixture of 1% lidocaine and 40 mg [id number] refer for details to procedure note below. Procedure: After an informed oral consent, under sterile conditions using Ethyl chloride spray for local anesthesia I have injected 40 mg DepoMedrol and 2 cc 1% Lidocaine into Left trochanteric bursa uneventfully. Details of post-procedure care were explained to the patient in the office and given in writing. Assessment & Plan (09/11/2019 9:01 AM EST): Avoid walking on the incline and stairs. Limit heavy lifting and sudden turns, stooping and bending. On patient's request I agreed to inject her left trochanteric bursa with a mixture of 1% lidocaine and 40 mg [id number] refer for details to procedure note below. Procedure: After an informed oral consent, under sterile conditions using Ethyl chloride spray for local anesthesia I have injected 40 mg DepoMedrol and 2 cc 1% Lidocaine into Left trochanteric bursa uneventfully. Details of post-procedure care were explained to the patient in the office and given in writing. Assessment & Plan (07/08/2019 3:05 PM EDT): Avoid walking on the incline and stairs. Limit heavy lifting and sudden turns, stooping and bending. On patient's request I agreed to inject her left trochanteric bursa with a mixture of 1% lidocaine and 40 mg [id number]-[id number] refer for details to procedure note below. Procedure: After an informed oral consent, under sterile conditions using Ethyl chloride spray for local anesthesia I have injected 40 mg DepoMedrol and 2 cc 1% Lidocaine into Left trochanteric bursa uneventfully. Details of post-procedure care were explained to the patient in the office and given in writing. Assessment & Plan (03/25/2019 10:21 AM EDT): Avoid walking on the incline and stairs. Limit heavy lifting and sudden turns, stooping and bending. Assessment & Plan (12/23/2018 2:54 PM EDT): Due to pain keeping patient awake at night I agreed to inject her left trochanteric bursa with long-acting steroid= Depo-Medrol and lidocaine mixture that used to work nicely in the past. Anxiety and depression Assessment & Plan (12/15/2024 4:46 PM EDT): Adequately controlled with escitalopram 10 mg daily. She endorses increased anxiety about an upcoming family meeting. 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 She agrees. Assessment & Plan (06/17/2024 11:50 AM EDT): Adequately managed with escitalopram and trazodone 100-150 mg at bedtime. She has re-established with her therapist. Assessment & Plan (10/29/2023 2:19 PM EST): She is experiencing increased stress related to the upcoming wedding but feels that she is managing it. Assessment & Plan (09/28/2023 4:29 PM EST): Acute on chronic anxiety and mood symptoms. She anticipates that symptoms will improve after the wedding in about a month but notes that the holidays are stressful for her and compounded by the challenges with her son and his fiancee. She is strongly cautioned that she is taking multiple medications with sedating potential. She will not take lorazepam with trazodone, gabapentin, or Tramadol. I encouraged some gentle exercise and stress management. I sent a prescription for lorazepam 0.5 mg tablets #20. Monitor use over the next couple of weeks. If symptoms persist I would recommend increasing escitalopram to 15 mg daily. She is engaged in talk therapy and her is supportive. Assessment & Plan (04/23/2023 4:41 PM EDT): Adequately treated with escitalopram 10 mg daily. QTc today is 443; no ST/T wave changes or evidence of ischemia, no significant changes compared to prior (done for interaction with hydroxychloroquine). Follow up in 6 months. Use lorazepam very sparingly. Assessment & Plan (12/08/2022 3:40 PM EST): Remains stable. Reports history of anxiety with outpatient use of Ativan as needed. Some anxiety regarding procedures treated with Ativan. -Continue Lexapro - Add as needed lorazepam Griffin's thyroiditis Assessment & Plan (12/08/2022 3:40 PM EST): TSH 1.45 - Continue levothyroxine. Resolved Problems Problem Noted Date Diagnosed Date Resolved Date Rash and other nonspecific skin eruption 04/11/2023 06/17/2024 Assessment & Plan (04/11/2023 12:10 PM EDT): Rash appears more consistent with rosacea to me, perhaps perioral dermatitis. I am not sure that this represents cutaneous manifestation of SLE but will ask her environmental services project manager to weigh in. Unfortunately, the wait for local dermatologists is quite long and she is anxious that her skin be completely clear for an upcoming wedding. Shortness of breath 12/07/2022 06/17/20 24 Assessment & Plan (12/08/2022 3:36 PM EST): Patient presented with 3 to 4-day history of dyspnea on exertion and chest tightness in the setting of a recent robotic assisted laparoscopic paraesophageal hernia repair on November 19. -No evidence of hypoxia. -CTPA- no PE, small moderate-sized bilateral pleural effusion. No free air in the abdomen. No evidence of postoperative complication such as pneumothorax or perforation. -elevated D-dimer 1042. Patient did receive a dose of IV Lasix 20 mg given concern for possible fluid overload given mildly elevated proBNP of 261 and pleural effusions on imaging. No clear evidence of overt pulmonary edema. No evidence of significant anemia or history of reactive airway disease. Stable overnight with no hypoxia. -Imaging reviewed with pulmonology who feels that patient symptoms are due to bilateral pleural effusions recommend thoracentesis. -CRP within normal limits at 3.4. ESR within normal limits at 19. No evidence of overwhelming inflammation. -IR consulted for bilateral thoracentesis. - Pleural fluid analysis ordered per pulmonology. -No evidence of heart failure therefore we will continue to hold off additional IV Lasix at this time -Await reading from echocardiogram. -Follow results of from fluid analysis and culture. 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 Assessment & Plan (01/22/2021 11:38 AM EDT): I have reviewed with Herlinda that there are no contraindications to get COVID- 19 vaccine as long as she did not have any allergic reactions to prior vaccinations. I reviewed with her that in fact she qualifies for vaccine due to her chronic immune mediated disease, immunosuppressive therapy and significant melly disease. Vitamin D deficiency, unspecified 03/26/2020 06/17/2024 Overview (11/28/2023): Continue weekly vitamin D 50,000 units to keep it in optimal range: 40-45 ng/ml. Assessment & Plan (11/28/2023 9:33 AM EST): Continue supplementation to optimize serum level at 40-45 ng/ml. Assessment & Plan (09/04/2023 3:59 PM EST): Has been taking 50,000 IUs of D2 weekly for years. Last vitamin D level was low normal at 35 in 07/2021. Added vitamin D level to next labs and may share results with Dr. Zendejas who prescribes the vitamin D2. Her dietary calcium intake is low and she is taking about 5 to 600 mg of calcium daily. We discussed the importance to get about 1200 mg calcium daily combined from diet and supplement. Assessment & Plan (05/04/2023 2:51 PM EDT): Continue supplementation to optimize serum level at 40-45 ng/ml. Assessment & Plan (10/30/2022 3:45 PM EST): Continue supplementation to optimize serum level at 40-45 ng/ml. Assessment & Plan (06/28/2022 4:13 PM EDT): Continue supplementation to optimize serum level at 40-45 ng/ml. Assessment & Plan (03/20/2022 12:46 PM EDT): Continue supplementation to optimize serum level at 40-45 ng/ml. Assessment & Plan (09/08/2021 3:47 PM EST): Continue supplementation to optimize serum level at 40-45 ng/ml. Assessment & Plan (06/02/2021 8:44 PM EDT): Continue supplementation to optimize serum level at 40-45 ng/ml. Assessment & Plan (10/24/2020 9:00 PM EST): Continue proper supplementation to keep serum level in optimal range: 40-45 ng/ml Assessment & Plan (08/22/2020 6:54 PM EST): Continue proper supplementation to keep serum level in optimal range: 40-45 ng/ml Assessment & Plan (05/09/2020 4:52 PM EDT): Continue proper supplementation to keep serum level in optimal range: 40-45 ng/ml Assessment & Plan (03/28/2020 12:12 PM EDT): Continue proper supplementation to keep serum level in optimal range: 40-45 ng/ml Acute pain of left knee 02/05/202006/08 Assessment & Plan (02/05/2020 12:06 PM EDT): Procedure: After an informed oral consent, under sterile conditions using Ethyl chloride spray for local anesthesia I have injected 40 mg DepoMedrol and 2 cc 1% Lidocaine into Left knee from medial approach uneventfully. Details of post-procedure care were explained to the patient in the office and given in writing. Excuse from work for today and tomorrow printed for patient. SOB (shortness of breath) 11/07/2019 Assessment & Plan (11/07/2019 1:46 PM EST): Reported dyspnea of unclear cause. Recommend reassess with full PFTs once current exacerbation has resolved. Bronchitis, acute 02/19/2019 02/22/2021 Assessment & Plan (11/07/2019 1:49 PM EST): Acute exacerbation, difficult to determine components of asthma, tracheobronchomalacia, versus eb tracheobronchitis in the setting of patient with Sjogren's and immunosuppressive therapy. No clear benefit with antibiotics. Recommendations: Continue high-dose prednisone, tapering as symptoms improve. Resume hypertonic saline nebs once or twice daily to ensure adequate sputum clearance. Continue cough suppressant therapy to minimize cough cycle. Assessment & Plan (02/19/2019 3:05 PM EDT): Given the severity of symptoms and no improvement on three days of prednisone, will prescribe a prednisone taper. Reassuring that she had a normal chest xray at urgent care this morning. Will provide with a prescription for azithromycin to take if she has no improvement in the next three days or so. Advised to not take with her zofran given risk of QT prolongation. Follow up with Dr. Hicks in three months. Class 2 severe obesity due t o excess calories with serious comorbidity and body mass index (BMI) of 39.0 to 39.9 in adult 03/27/2018 2 Assessment & Plan (12/07/2021 4:44 PM EST): Portion control. Limit concentrated sugars, saturated fats and calories in the diet. Keep well-hydrated. If unable to achieve expected goal consider formal dietary/nutritional support. Assessment & Plan (09/08/2021 3:46 PM EST): Portion control. Limit concentrated sugars, saturated fats and calories in the diet. Keep well-hydrated. If unable to achieve expected goal consider formal dietary/nutritional support. Assessment & Plan (05/25/2021 4:46 PM EDT): Portion control. Limit concentrated sugars, saturated fats and calories in the diet. Keep well-hydrated. If unable to achieve expected goal consider formal dietary/nutritional support. Assessment & Plan (03/24/2021 11:24 AM EDT): Portion control. Limit concentrated sugars, saturated fats and calories in the diet. Keep well-hydrated. If unable to achieve expected goal consider formal dietary/nutritional support. Assessment & Plan (01/12/2021 4:01 PM EDT): Portion control. Limit concentrated sugars, saturated fats and calories in the diet. Keep well-hydrated. If unable to achieve expected goal consider formal dietary/nutritional support. Assessment & Plan (10/24/2020 8:59 PM EST): Portion control. Limit concentrated sugars, saturated fats and calories in the diet. Keep well-hydrated. If unable to achieve expected goal consider formal dietary/nutritional support. Assessment & Plan (08/22/2020 6:53 PM EST): Portion control. Limit concentrated sugars, saturated fats and calories in the diet. Keep well-hydrated. If unable to achieve expected goal consider formal dietary/nutritional support. Assessment & Plan (05/09/2020 4:49 PM EDT): Portion control. Limit concentrated sugars, saturated fats and calories in the diet. Keep well-hydrated. If unable to achieve expected goal consider formal dietary/nutritional support. Assessment & Plan (09/11/2019 8:45 AM EST): Portion control. Limit concentrated sugars, saturated fats and calories in the diet. Keep well-hydrated. If unable to achieve expected goal consider formal dietary/nutritional support. Assessment & Plan (07/08/2019 3:02 PM EDT): Portion control. Limit concentrated sugars, saturated fats and calories in the diet. Keep well-hydrated. If unable to achieve expected goal consider formal dietary/nutritional support. Assessment & Plan (03/25/2019 10:16 AM EDT): Portion control. Limit concentrated sugars, saturated fats and calories in the diet. Keep well-hydrated. If unable to achieve expected goal consider formal dietary/nutritional support. Assessment & Plan (12/23/2018 2:28 PM EDT): Portion control. Limit concentrated sugars, saturated fats and calories in the diet. Keep well-hydrated. If unable to achieve expected goal consider formal dietary/nutritional support. Assessment & Plan (11/19/2018 8:59 PM EST): Portion control. Limit concentrated sugars, saturated fats and calories in the diet. Keep well-hydrated. If unable to achieve expected goal consider formal dietary/nutritional support. Obesity, morbid 06/17/2024 Assessment & Plan (04/23/2023 4:42 PM EDT): Activity is limited but she tries to walk with her during good weather. Monitor portion sizes. Assessment & Plan (04/04/2022 11:16 AM EDT): Continue diligent portion control. Limit concentrated sugars, saturated fats and calories in the diet. Keep well-hydrated. If unable to achieve expected goal consider formal dietary/nutritional support. Encounters Date Type Department Care Team Description 05/11/2025 Refill [facility] Rheumatology [address] [place] [address] Margaux Montanez MD Medication Refill 05/07/2025 Refill [facility] Rheumatology [address] [place] [address] [place] [address] Margaux Montanez MD Medication Refill 04/29/2025 Patient Outreach [facility] [address] [place] [address] Neisha Pinto, RANDI Care Coordination ([facility] Follow up outreach ) 04/21/2025 Refill [facility] Rheumatology [address] [place] [address] [place] [address] Margaux Montanez MD Medication Refill 04/14/2025 9:30 AM EDT Telemedicine [facility] Radiology [facility] [address] [place] [id number] Lj Moscoso MD, MPH 04/08/2025 1:20 PM EDT Office Visit [facility] [address] [place] [address] Doretha Glynn MD 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) 03/30/2025 Patient Outreach [facility] [address] [place] [address] Neisha Pinto, RN Care Coordination ([facility] Follow up outreach ) 03/19/2025 9:00 AM EDT Office Visit [facility] Rheumatology [address] [place] [address] Margaux Montanez MD SLE-Sjogren overlap syndrome (Primary Dx); Sjogren's syndrome with lung involvement; Inflammatory arthritis; 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, detention, current use; Long-term use of Plaquenil; Gastroesophageal reflux disease with esophagitis without hemorrhage; Vitamin D insufficiency; Primary osteoarthritis of both knees; Primary osteoarthritis involving multiple joints; Class 1 obesity due to excess calories with serious comorbidity and body mass index (BMI) of 34.0 to 34.9 in adult 03/16/2025 Refill [facility] [address] [place] [address] Eunice Sanz CNP Medication Refill 03/16/2025 Refill [facility] Pulmonary, Allergy and Critical Care Medicine [address] [place] [address] Lester Hicks MD Medication Refill 03/12/2025 6:20 AM EDT - 03/12/2025 4:36 PM EDT Hospital Encounter [facility] L2 PRU [address] [place] [address] Lj Moscoso MD, MPH Jaquan Meier MD [place], Jeffrey, Kerrie Hernandez Rachida Discharge Disposition: Home or Self Care 03/12/2025 6:06 AM EDT - 03/12/2025 6:18 AM EDT Hospital Encounter [facility] Phlebotomy Admitting [address] [place], [place] [id number] Lj Moscoso MD, MPH Discharge Disposition: Home or Self Care 03/12/2025 Orders Only [address] [address] Jaquan Meier MD Primary osteoarthritis of both knees (Primary Dx) 03/10/2025 Ancillary Orders [facility] Radiology [address] [place] [id number] Lj Moscoso MD, MPH 03/10/2025 Ancillary Orders [facility] Radiology [address] [place] [id number] Lj Moscoso MD, MPH 03/09/[address] [place] [address] Eunice Sanz CNP Medication Refill 02/25/2025 Patient Outreach [facility] [address] [place] [address] Neisha Pinto, RN Care Coordination (iCMP Follow up outreach ) 02/18/2025 Refill [facility] [address] [place] [address] Lester Hicks MD Medication Refill 02/17/2025 Orders Only [address] [place] [address] ProviderCesario MD 02/16/2025 Orders Only [address] [place] [address] Provider, MD Cesario 01/13/2025 Procedure Pass [facility] L2 PRU [address] [place] [address] from Last 3 Months Immunizations Immunization Administration Dates Next Due COVID-19 (Pre-07/30) Pfizer Vaccine, mRNA, PF 03/09/2021,02/16/2021 Influenza Quadrivalent MDCK Preservative Free IM 07/04/2023,08/06/2022 Influenza Quadrivalent Prese rvative Free IM 08/06/2021,07/03/2020,07/23/2019,07/24,07/08/2017,07/13/2014 Influenza Quadrivalent w/ Pr eservative IM 07/19/2016 Influenza Trivalent Preserva tive Free IM 07/11/2024,08/05/2015 Pneumococcal conjugate PCV13 06/11/2014 Pneumococcal conjugate PCV20 06/17/2024 Pneumococcal polysaccharide PPSV23 06/22/2016 Pneumococcal, Unspecified Formulation 10/08/2012 RSV Vaccine (bivalent) 07/04/2023 Tdap 06/13/2016 Zoster recombinant 11/23/2020,05/23/2020 Family History Medical History Relation Comments No Known Problems Daughter Cancer Father Smoker. Details unclear. No Known Problems Maternal Grandfather No Known Problems Maternal Grandmother Hypertension Mother Intracerebral hemorrhage Mother Undiagn osed HTN Breast cancer Paternal Aunt No Known Problems Paternal Grandfather Diabetes Paternal Grandmother No Known Problems Son 1 Juvenile idiopathic arthritis Son 2 No Known Problems Son 3 Colon cancer Neg Hx Glaucoma Neg Hx Heart attack Neg Hx Macular degeneration Neg Hx Prostate cancer Neg Hx Relation Status Comments Daughter Alive Father Maternal Grandfather Maternal Grandmother Mother (Age 48) Paternal Aunt Paternal Grandfather Paternal Grandmother Son 1 Alive Son 2 Alive Son 3 Alive Social History Tobacco Use Types Packs/Day Years Used Date Smoking Tobacco: Never Smokeless Tobacco: Never Tobacco Cessation:Counseling Given: Not Answered Alcohol Use Standard Drinks/Week Comments No 0 (1 standard drink = 0.6 oz pur e alcohol) Child or Family Care Answer Date Record ed Do you have problems with on e of the following making it difficult for you to work, study, or receive health care? No 06/10/2024 Education Answer Date Recorded Are you interested in help w ith more adult education (for example, completing high school, GED, job training, learning the [place] language, technical skills, or developing parenting skills)? No 06/10/2024 Are you concerned about learning? Not on file 06/10/2024 No 06/10/2024 Yes 06/10/2024 Food Answer Date Recorded Within the past 6 months we worried whether our food would run out before we got money to buy more. Never True 06/10/2024 Within the past 6 months the food we bought just didn't last and we didn't have enough money to get more. Never True Residential Stability Answer Date Recor ded What is your housing situation today? I have vinicius sing 06/10/2024 How many times have you move d in the past 12 months? Zero (I did not move) 06/10/2024 Paying for Meds Answer Date Recorded Do you have trouble paying for medicines? I mildred se not to answer 06/10/2024 Paying Utility Bills Answer Date Record ed Do you have trouble paying your heating or elect ricity bill? No 06/10/2024 Transportation Answer Date Recorded Has the lack of transportati on kept you from medical appointments or from getting medications? No 06/10/2024 Unemployment Answer Date Recorded Are you currently unemployed or working on a part-time or temporary basis, and looking for work? No 12/31/2022 Digital Access Answer Date Recorded No 06/10/2024 Yes 06/10/2024 Do you have reliable internet access at home? Ye s 06/10/2024 Do you have a device (e.g., phone, tablet, computer) with a working camera? Yes 06/10/2024 Intimate Partner Violence Answer Date R ecorded Denied Basic Needs Not on file 06/17/2024 In the past 12 months have y ou been in a relationship with a person who hurts, threatens, or tries to control you? No 06/17/2024 Worried food would run out Not on file 06/17 In the past 12 months have y ou been in a relationship with a person who hurts, threatens, or tries to control you? No 06/17/2024 Comments No Sex and Gender Information Value Date Recorded Sex Assigned at Female 06/26/2019 4:54 PM EDT Legal Sex Female 5:30 PM EST Gender Identity Female 06/26/2019 4:54 PM EDT Sexual Orientation Straight 06/26/2019 4: 54 PM EDT Last Filed Vital Signs Vital Sign Reading Time Taken Comments Blood Pressure 126/78 04/08/2025 1:10 PM EDT Pulse 88 04/08/2025 1:10 PM EDT Temperature 36.2 C (97.1 F) 03/12/2025 11:38 AM EDT Respiratory Rate 16 03/12/2025 2:30 PM EDT Oxygen Saturation 98% 04/08/2025 1:10 PM EDT Inhaled Oxygen Concentration 20.7% 02/2025 11:28 AM EDT Weight 89.7 kg (197 lb 12.8 oz) 04/08/2025 1:10 PM EDT Height 160 cm (5' 3 ) 04/08/2025 1:10 PM EDT Body Mass Index 35.04 04/08/2025 1:10 PM EDT Plan of Treatment Upcoming Encounters Date Type Department Care Team (Late st Contact Info) Description 06/17/2024 Procedure Pass [address] [address] 06/24/2025 8:00 AM EDT Office Visit [facility] Medicine [address] [place] [address] Eunice Sanz CNP [address] [facility] [place] [address] 06/25/2025 7:45 AM EDT Appointment [facility] [address] [place] [address] Eunice Sanz, SUPPORT ANALYST [address] [facility] [place] [address] 07/23/2025 8:00 AM EDT Office Visit [facility] Rheumatology [address] [place] [address] Margaux Montanez MD [address] [place] [address], [address] [place] [address] [email or web address] 09/21/2025 2:30 PM EST Office Visit [facility] [address] [place] [address] Lester Hicks MD [address] [place] [address] 10/13/2025 9:20 AM EST Office Visit [facility] [address] [place] [address] [place] [address] Doretha Glynn MD [address] [place] [id number] Health Maintenance Due Date Last Done Comments COLOGUARD 2007 FOBT 2007 SIGMOIDOSCOPY 2007 VIRTUAL COLONOSCOPY 2007 FIT TEST 04/15/2021 04/15/2020 COVID-19 VACCINE ( season) 2024 08/03/2021, 03/09/2021, 02/16/2021 PAP SMEAR 11/11/2024 11/11/2019 MAMMOGRAM 01/04/2025 01/04/2023, 07/09, 08/12/2018, Additional history exists DEPRESSION SCREENING 06/10/2025 06/10/2024, 10/29/19 24 BLOOD PRESSURE 10/09/2025 04/08/2025 LIPID PANEL 12/08/2025 12/08/2020 TSH LEVEL 12/10/2025 12/10/2024, 09/09, 02/26/2024, Additional history exists CREATININE LEVEL 03/12/2026 03/12/2025, 02/2025, 10/07/2024, Additional history exists POTASSIUM LEVEL 03/12/2026 03/12/2025, 02/06, 11/14/2023, Additional history exists Adult Td,Tdap Booster 06/13/2026 06/13/2016 COLONOSCOPY 06/20/2026 06/20/2024, 07/17/2017 COLORECTAL CANCER SCREENING 06/20/2026 SCREENING FOR DIABETES 03/12/2028 03/12/2025 HEPATITIS C SCREENING Completed 07/14/2014 HIV ONE-TIME SCREENING (18-65 YEARS) Completed 07/14/2014 ZOSTER VACCINES Completed 11/23/2020, 05/23/2020 RSV VACCINE Completed 07/04/2023 PNEUMOCOCCAL VACCINES (50+ years) Completed 06/17/2024, 06/22/2016, 06/11/2014 SMOKING STATUS SCREENING (Once After 26 Yrs) Completed 04/08/2025 HEPATITIS A VACCINES Aged Out No long er eligible based on patient's age to complete this topic HIB VACCINES Aged Out No longer eligi ble based on patient's age to complete this topic MENINGOCOCCAL VACCINES (ACWY) Aged Out No longer eligible based on patient's age to complete this topic MENINGOCOCCAL VACCINES (B) Aged Out N o longer eligible based on patient's age to complete this topic Medical Devices Not on file Procedures Procedure Name Priority Date/Time Associated Diagnosis Comments IR EMBOLIZATION ARTERIAL Routine 03/12/2025 11:34 AM EDT Primary osteoarthritis of both knees POCT ACTIVATED CLOTTING TIME, HEMOCHRON Routine 03/12/2025 11:08 AM EDT POCT ACTIVATED CLOTTING TIME, HEMOCHRON Routine 03/12/2025 9:18 AM EDT BASIC METABOLIC PANEL STAT 03/12/2025 6:10 AM EDT CBC AND DIFFERENTIAL STAT 03/12/2025 6:10 AM EDT PT-INR STAT 03/12/2025 6:10 AM EDT TSH Routine 12/10/2024 4:12 PM EST 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 ENDOSCOPY, COLON 06/20/2024 9:51 AM EDT BI MAMMOGRAM SCREENING WITH TOMOSYNTHESIS WITH CAD (BILATERAL) Routine 01/04/2023 1:09 PM EDT Breast screening LIPID PANEL Routine 12/08/2020 4:37 PM EST Annual physical exam HC BLOOD OCCULT FECAL HGB DETER IA QUAL FECES 1-3 Routine 04/15/2020 8:00 AM EDT Fatigue, unspecified type Diarrhea, unspecified type PAP TEST Routine 11/11/2019 12:00 AM EST OUTSIDE HIV Routine 07/14/2014 OUTSIDE HEPATITIS C VIRUS SCREENING Routine 07/14/2014 from Last 3 Months or Most Recently Relevant to Health Maintenance Results * IR Embolization Arterial Lower Extremity; Left; Genicular arteries (03/12/2025 11:34 AM EDT) Anatomical Region Laterality Modality Abdomen Interventional R adiography 03/12/2025 11:2 4 AM EDT Narrative 03/14/2025 10:02 AM EDT Procedure: LEFT lower extremity angiogram and genicular artery embolization Clinical History and Indication: 65F with history of Sjogren's syndrome with lung involvement, with underlying inflammatory arthritis, recurrent left trochanteric bursitis, polyarticular osteoarthritis, Griffin's thyroiditis, GERD, intermittent depression and obesity. She has left worse than right baseline knee pain, limiting daily activities, and refractory to conservative measures, as well as multiple cortisone and gel injections with little relief. She presents today for LEFT genicular artery embolization. Operators: Attending: Lj Moscoso MD Advanced Practice Provider: None. Resident/Fellow: Jaquan Meier MD , Yomaira Pham MD Pre-Procedural Medications: Antibiotics: Cefazolin 2 gm IV. Other: None. Intra-Procedural Medications and Contrast: See medication administration in electronic medical record for details. Sedation: Moderate Procedural (Conscious) Sedation was administered and monitored by radiology department nursing staff and supervised by the licensed independent provider. The following parameters were monitored: oxygen saturation, heart rate, blood pressure and response to care. The licensed independent provider spent 120 minutes of continuous msnf-qp-pxay sedation time with the patient. Patient Radiation Dose: Fluoroscopy Time: 34.8 minutes. Cumulative Dose: 90.76 mGy. Kumq-Eqal-Tqnjhvg: 2273.0 microGy x m^2. Embolic Material: 3:1 Lipiodol and [id number] Emulsion Technique and Findings: Written informed consent was obtained. The patient was prepped and draped in a sterile fashion. A Procedural Time-Out was performed immediately prior to the procedure. Under local anesthesia, the patent proximal left superficial femoral artery was accessed in the antegrade direction using a micropuncture kit and ultrasound guidance. An image was stored for permanent record. A 4 Fr sheath was inserted over a 0.035-inch Glidewire into the SFA. A 4 Fr C2 catheter was advanced into the SFA at the level of the mid thigh. CTA of the left lower extremity from the level of the mid thigh to the foot was performed, which demonstrated patent 3-vessel runoff and delineated the arterial supply to the knee. Digital subtraction angiography from the superficial femoral artery was performed at 3 mL/s for a total of 9 ml at 300 psi. Angiography demonstrated the expected location of the genicular arteries, and diminutive superior medial genicular artery. A 2.0 German TruSelect microcatheter and Fathom-14 microwire were used coaxially to superselect the descending genicular artery articular branch. Digital subtraction angiography from the selected genicular arteries was performed via the microcatheter at 1 mL/s for a total of 3 ml at 800 psi. Digital subtraction angiography demonstrated abnormal neovascularity and hyperemia. Lipiodol and [id number] were mixed in a 3:1 ratio on a separate table to create an emulsion. With the microcatheter in the articular branch of the descending genicular artery, a total of 0.5 ml of the lipiodol emulsion was slowly injected via the microcatheter under constant fluoroscopic visualization, monitoring for reflux and non-target embolization. Repeat DSA following embolization demonstrated marked reduction in the abnormal neovascularity/hyperemia. Similarly, the microcatheter and microwire were used to select the following arteries and perform DSA, which demonstrated neovascularity and hyperemia arising from each selected artery. The following amounts of the lipiodol emulsion were injected into the arteries in an identical method as above to embolize them to stasis. 1. Inferior lateral genicular artery: 0.2 mL 2. Inferior medial genicular artery: 0.2 mL Repeat angiography demonstrated preserved 3-vessel run off and significant pruning of the periarticular neovascularity along the medial and lateral aspects of the joint. The parent catheter was removed over the guidewire. Contrast was injected through the sheath, demonstrating no acute complication at the access site. Hemostasis was achieved with the use of ultrasound-guided manual compression for 15 minutes. A [employer] D-Stat Dry Silver topical hemostat dressing was applied. Distal pulses were palpable and unchanged on procedure completion. All procedural wires, catheters, and sheaths were removed and/or accounted for at the completion of the procedure. Specimens Submitted: None. Adverse Events: None. Estimated Blood Loss: Minimal. Summary: 1. Left lower extremity angiogram demonstrating patent three-vessel runoff, and neovascularity and hyperemia from several genicular artery branches. 2. Technically successful Lipiodol emulsion embolization of the descending genicular articular branch, inferior lateral genicular, and inferior medial genicular arteries in the left knee. ATTESTATION: Lj Guillen MD, MPH , the teaching physician, was present for the entire radiologic and mahoney portions of the procedure and was immediately available for the non-critical/mahoney portions. ATTESTATION: Lj Guillen, as teaching physician have reviewed the images, if any, for this patient's exam, and if necessary, have edited the report originally created by Jaquan Meier. Procedure Note Lj Moscoso MD, MPH - 03/14/2025 Procedure: LEFT lower extremity angiogram and genicular arteryembolization Clinical History and Indication: 65F with history of Sjogren's syndromewith lung involvement, with underlying inflammatory arthritis, recurrentleft trochanteric bursitis, polyarticular osteoarthritis, Griffin'sthyroiditis, GERD, intermittent depression and obesity. She has left worsethan right baseline knee pain, limiting daily activities, and refractoryto conservative measures, as well as multiple cortisone and gel injectionswith little relief. She presents today for LEFT genicular arteryembolization. Operators: Attending: Lj Moscoso MD Advanced Practice Provider: None. Resident/Fellow: Jaquan Meier MD , Yomaira Pham MD Pre-Procedural Medications: Antibiotics: Cefazolin 2 gm IV. Other: None. Intra-Procedural Medications and Contrast: See medication administrationin electronic medical record for details. Sedation: Moderate Procedural (Conscious) Sedation was administered andmonitored by radiology department nursing staff and supervised by [facility]. The following parameters were monitored:oxygen saturation, heart rate, blood pressure and response to care. [facility] provider spent 120 minutes of continuous raob-sv-mwupoznwhdvk time with the patient. Patient Radiation Dose: Fluoroscopy Time: 34.8 minutes. Cumulative Dose: 90.76 mGy. Axou-Pxtd-Bhtteqw: 2273.0 microGy x m^2. Embolic Material: 3:1 Lipiodol and [id number] Emulsion Technique and Findings: Written informed consent was obtained. The patient was prepped and drapedin a sterile fashion. A Procedural Time-Out was performed immediatelyprior to the procedure. Under local anesthesia, the patent proximal left superficial femoralartery was accessed in the antegrade direction using a micropuncture kitand ultrasound guidance. An image was stored for permanent record. A 4 Frsheath was inserted over a 0.035-inch Glidewire into the SFA. A 4 Fr C2 catheter was advanced into the SFA at the level of the midthigh. CTA of the left lower extremity from the level of the mid thigh tothe foot was performed, which demonstrated patent 3-vessel runoff anddelineated the arterial supply to the knee. Digital subtraction angiography from the superficial femoral artery wasperformed at 3 mL/s for a total of 9 ml at 300 psi. Angiographydemonstrated the expected location of the genicular arteries, anddiminutive superior medial genicular artery. A 2.0 German TruSelect microcatheter and Fathom-14 microwire were usedcoaxially to superselect the descending genicular artery articular branch.Digital subtraction angiography from the selected genicular arteries wasperformed via the microcatheter at 1 mL/s for a total of 3 ml at 800 psi.Digital subtraction angiography demonstrated abnormal neovascularity andhyperemia. Lipiodol and [id number] were mixed in a 3:1 ratio on a separatetable to create an emulsion. With the microcatheter in the articularbranch of the descending genicular artery, a total of 0.5 ml of thelipiodol emulsion was slowly injected via the microcatheter under constantfluoroscopic visualization, monitoring for reflux and non-targetembolization. Repeat DSA following embolization demonstrated markedreduction in the abnormal neovascularity/hyperemia. Similarly, the microcatheter and microwire were used to select thefollowing arteries and perform DSA, which demonstrated neovascularity andhyperemia arising from each selected artery. The following amounts of thelipiodol emulsion were injected into the arteries in an identical methodas above to embolize them to stasis. 1. Inferior lateral genicular artery: 0.2 mL 2. Inferior medial genicular artery: 0.2 mL Repeat angiography demonstrated preserved 3-vessel run off and significantpruning of the periarticular neovascularity along the medial and lateralaspects of the joint. The parent catheter was removed over theguidewire. Contrast was injected through the sheath, demonstrating no acutecomplication at the access site. Hemostasis was achieved with the use ofultrasound-guided manual compression for 15 minutes. A [employer] SolutionsD-Stat Dry Silver topical hemostat dressing was applied. Distal pulseswere palpable and unchanged on procedure completion. All procedural wires, catheters, and sheaths were removed and/or accountedfor at the completion of the procedure. Specimens Submitted: None. Adverse Events: None. Estimated Blood Loss: Minimal. Summary: 1. Left lower extremity angiogram demonstrating patent three-vesselrunoff, and neovascularity and hyperemia from several genicular arterybranches. 2. Technically successful Lipiodol emulsion embolization of thedescending genicular articular branch, inferior lateral genicular, andinferior medial genicular arteries in the left knee. ATTESTATION: Lj Guillen MD, MPH , the teaching physician, waspresent for the entire radiologic and mahoney portions of the procedure andwas immediately available for the non-critical/mahoney portions. ATTESTATION: Lj Guillen, as teaching physician have reviewed theimages, if any, for this patient's exam, and if necessary, have edited thereport originally created by Jaquan Meier. us Lj Moscoso MD, MPH IMG IR Final Resul t * POCT Activated Clotting Time (03/12/2025 11:08 AM EDT) Only the most recent of2 resultswithin the time period is included. activated clotting time 106 74 - 137 SEC [facility] CARDIAC CATH DIAG INTERVENTION CTR 03/12/2025 11:0 8 AM EDT 03/12/2025 12:44 PM EDT Lj Moscoso MD, MPH POINT OF CARE TEST ORDERABL ES Final Result Performing Organization Address [facility] Co de Phone Number [facility] CARDIAC CATH DIAG INTERVENTION CTR [address] [place] [address] * PT-INR (03/12/2025 6:10 AM EDT) PT 10.9 10.0 - 13.0 sec [facility] INR 1.0 0.9 - 1.1 [facility] CLINIC AL [facility] 03/12/2025 6:10 AM EDT 03/12/2025 6:48 AM EDT us Lj Moscoso MD, MPH LAB BLOOD ORDERABLES Final Result Performing Organization Address [facility] Co de Phone Number [facility] [address] [place] [phone] * (ABNORMAL) CBC and differential (03/12/2025 6:10 AM EDT) WBC 4.58 4.00 - 11.00 K/uL [facility] RBC 4.39 4.00 - 5.20 M/uL [facility] HGB 12.8 12.0 - 16.0 g/dL [facility] HCT 40.5 36.0 - 46.0 % [facility] PLT 275 150 - 450 K/uL [facility] MCV 92.3 80.0 - 100.0 fL [facility] MCH 29.2 27.0 - 31.0 pg [facility] MCHC 31.6(L) 32.0 - 36.0 g/dL [facility] RDW 12.8 11.5 - 14.5 % [facility] MPV 10.4 8.4 - 12.0 fL [facility] NRBC 0.00 0.00 /100 WBCs [facility] ABSOLUTE NRBC 0.00 0.00 K/uL [facility] CL INICAL [facility] DIFF METHOD Auto [facility] ICAL [facility] NEUTS 45.8(L) 48.0 - 76.0 % [facility] LYMPHS 42.8(H) 18.0 - 41.0 % [facility] MONOS 8.1 4.0 - 11.0 % [facility] EOS 2.4 0.0 - 5.0 % [facility] BASOS 0.7 0.0 - 1.5 % [facility] % IMMATURE GRANS 0.2 0.0 - 0.9 % [facility] ABSOLUTE NEUTS 2.10 1.92 - 7.60 K/uL [facility] Comment:1.21-5.39 cells/KL i s the reference range for individuals with the Robledo null phenotype ABSOLUTE LYMPHS 1.96 0.72 - 4.10 K/uL [facility] ABSOLUTE MONOS 0.37 0.16 - 1.10 K/uL [facility] ABSOLUTE EOS 0.11 0.00 - 0.50 K/uL [facility] ABSOLUTE BASOS 0.03 0.00 - 0.15 K/uL [facility] ABS IMMATURE GRANS 0.01 0.00 - 0.09 K/uL [facility] ABSOLUTE NEUTROPHIL COUNT 2.10 1.92 - 7.60 K/uL [facility] Comment: Automated cell count. Manual ANC may differ if performed. 1.21-5.39 cells/KL is the reference range for individuals with the Robledo null phenotype Blood 03/12/2025 6:10 AM EDT 03/12/2025 6:48 AM EDT Lj Moscoso MD, MPH LAB BLOOD ORDERABLES Final Result Performing Organization Address [facility] de Phone Number [facility] [address] [place], [place] [id number] * Basic metabolic panel (03/12/2025 6:10 AM EDT) SODIUM 142 136 - 145 mmol/L [facility] POTASSIUM 3.4 3.4 - 5.1 mmol/L [facility] CHLORIDE 103 98 - 107 mmol/L [facility] CO2 31 22 - 31 mmol/L [facility] BUN 11 6 - 23 mg/dL [facility] CREATININE 0.80 0.50 - 1.20 mg/dL [facility] GLUCOSE 84 70 - 100 mg/dL [facility] CALCIUM 9.7 8.8 - 10.7 mg/dL [facility] EGFR 83 >59 mL/min/1.7 3m2 [facility] Comment:Estimated glomerular filtration rate calculated using the CKD-EPI refit equation. ANION GAP 8 7 - 17 mmol/L [facility] 03/12/2025 6:10 AM EDT 03/12/2025 6:48 AM EDT Lj Moscoso MD, MPH LAB BLOOD ORDERABLES Final Result Performing Organization Address [facility] de Phone Number [facility] [address] [place] [id number] * TSH (12/10/2024 4:12 PM EST) Blood Doretha Glynn MD LAB BLOOD ORDERABLES Final Res ult Performing Organization Address [facility]/ZIP Co de Phone Number EXTERNAL NON-INTERFACED REF LAB * ENDOSCOPY, COLON (06/20/2024 9:51 AM EDT) Narrative Transcriptions Shreyas Murphy MD - 06/20/2024 9:51 AM EDT [facility] Patient Name: Herlinda Saleem Attending MD:: SHREYAS MURPHY MD, Procedure Date: 06/20/2024 9:51 AM Date of : 1960 Age: 64 Admit Type: Outpatient Gender: Female Room: [place] [address] Referring MD: EUNICE SANZ Exam Type: Colonoscopy Indications: Chronic diarrhea Medications: Monitored Anesthesia Care Procedure: Informed consent was obtained from the patientafter discussion of the indications, limitations, alternatives, benefits, and risks of the procedure. Risks specifically discussed include but are not limited to medication reactions, missed lesions, bleeding, perforation, or the need for emergent surgery. Throughout the procedure, the patient's blood pressure, pulse, end-tidal CO2, and oxygensaturations were monitored continuously. The Colonoscope was introduced through the anus and advanced to the ileocecal valve. The colonoscopywas performed without difficulty. The patient tolerated the procedure well. The quality of the bowel preparation was fair. Anatomical landmarks were photographed. Complications: No immediate complications. Estimated blood loss:None. Findings: The perianal and digital rectal examinations were normal. The rectum, recto-sigmoid colon, sigmoid colon, descending colon, splenic flexure, transversecolon, hepatic flexure, ascending colon and ileocecalvalve appeared normal. Biopsies were taken with a cold forceps for histology. Due to looping, prep and redundant colon I could not intubate the ileum Impression: - Preparation of the colon was fair. - The rectum, sigmoid colon, descending colon,splenic flexure, transverse colon, hepatic flexure,ascending colon, recto-sigmoid colon and ileocecal valve are normal. Biopsied. Recommendation: - Discharge patient to home. - Resume previous diet. - Continue present medications. - Await pathology results. - Repeat colonoscopy in 2 years for screeningpurposes. - A two day preparation will be utilized on thefollow up colonoscopy. SHREYAS MURPHY MD 06/20/2024 10:27:44 AM This report has been signed electronically. Number of Addenda: 0 Note Initiated On: 06/20/2024 9:51 AM Procedure Code(s): --- Professional --- 76858, Colonoscopy, flexible; with biopsy, single or multiple --- Technical --- 87971, Colonoscopy, flexible; with biopsy, single or multiple Diagnosis Code(s): --- Professional --- K52.9, Noninfective gastroenteritis and colitis, unspecified --- Technical --- K52.9, Noninfective gastroenteritis and colitis, unspecified CPT copyright 2021 [employer]. All rights reserved. The codes documented in this report are preliminary and upon shoulder puncher reviewmay be revised to meet current compliance requirements. Procedure Date: 06/20/2024 9:51:[address] [place] [address] [id number] Euince Sanz CNP GI PROCEDURE ORDERABLES F inal Result * BI MAMMOGRAM SCREENING WITH TOMOSYNTHESIS WITH CAD (BILATERAL) (01/04/2023 1:09 PM EDT) Anatomical Region Laterality Modality Breast Left, Breast Right, Breast Bilateral Bila teral Mammography 01/04/2023 1:11 PM EDT Impressions 01/04/2023 3:01 PM EDT BILATERAL BREASTS: Negative, no evidence of malignancy. Recommend bilateral annual screening mammography in 12 months. Bi-RADS: BI-RADS CATEGORY: 1 - Negative. DENSITY: There are scattered fibroglandular densities. RIGHT RECOMMENDATION DUE DATE: 12 Months Recommendation: Right Mammography Screening LEFT RECOMMENDATION DUE DATE: 12 Months Recommendation: Left Mammography Screening Narrative 01/04/2023 3:01 PM EDT STUDY: Bilateral screening mammography with tomosynthesis and CAD TECHNIQUE: Bilateral full-field digital screening mammography is obtained and read in conjunction with computer-aided detection. Tomosynthesis as well as 2-D C view imaging were obtained. COMPARISON: Comparison made to multiple prior studies dating back to September 2008, the most recent dated July 2021. BILATERAL BREASTS: No new masses, suspicious calcifications or other abnormalities are seen. No significant interval change. Procedure Note Renato Dial MD - 01/04/2023 STUDY: Bilateral screening mammography with tomosynthesis and CAD TECHNIQUE: Bilateral full-field digital screening mammography is obtainedand read in conjunction with computer-aided detection. Tomosynthesis aswell as 2-D C view imaging were obtained. COMPARISON: Comparison made to multiple prior studies dating back toSeptember 2008, the most recent dated July 2021. BILATERAL BREASTS: No new masses, suspicious calcifications or otherabnormalities are seen. No significant interval change. IMPRESSION: BILATERAL BREASTS: Negative, no evidence of malignancy. Recommendbilateral annual screening mammography in 12 months. Bi-RADS: BI-RADS CATEGORY: 1 - Negative. DENSITY: There are scattered fibroglandular densities. RIGHT RECOMMENDATION DUE DATE: 12 Months Recommendation: Right Mammography Screening LEFT RECOMMENDATION DUE DATE: 12 Months Recommendation: Left Mammography Screening us Eunice Sanz SUPPORT ANALYST IMG MG EXAMS Final Res ult * (ABNORMAL) Lipid panel (12/08/2020 4:37 PM EST) HDL 60 mg/dL [facility] Comment: Interpretation <40 mg/dL: Low HDL cholesterol (major risk factor for CHD) Greater than or equal to 60 mg/dL: High HDL cholesterol ( negative risk factor for CHD) HDL - cholesterol is affected by a number of factors, e.g. smoking, excerise, hormones, sex and age. CHOLESTEROL 192 0 - 240 mg/dL [facility] TRIGLYCERIDES 139 30 - 160 mg/dL [facility] LDL 104 50 - 129 mg/dL [facility] Comment: LDL levels in terms of risk for coronary heart disease: <100 mg/dL: Optimal 100-129 mg/dL: Near or above optimal 130-159 mg/dL: Borderline high 160-189 mg/dL: High >190 mg/dL: Very High CARDIAC RISK RATIO 3.2(L) 3.3 - 4.4 [facility] Blood 12/08/2020 4:37 PM EST 12/08/2020 4:45 PM EST us Mamta Whitney DO LAB BLOOD ORDERABLES Final Result Performing Organization Address [facility]/ZIP Co de Phone Number [address] [address] * Fecal immunochemical test x1 (FIT) (04/15/2020 8:00 AM EDT) Immuno Fecal Occult Negative [facility] Stool (Stool) 04/15/2020 8:0 0 AM EDT 04/15/2020 4:23 PM EDT us Alise Winkler PA-C BODY FLUIDS AND STOOLS ORDERABL ES Final Result Performing Organization Address 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 CERVICAL, LIQUID BASED SPECIMEN: SPECIMEN ADEQUACY: Satisfactory for evaluation. INTERPRETATION: NEGATIVE FOR INTRAEPITHELIAL LESION OR MALIGNANCY. ADDITIONAL INFORMATION: Atrophic changes present. This specimen was prescreened using the [facility]. Electronically Signed Out By: Norma DE LA TORRE(ASCP)ANDREEA Cervical cytology is a screening test primarily for squamous cancers and precursors and has associated false-negative and false-positive results. New technologies such as liquid-based preparations may decrease but will not eliminate all false-negative results. Regular sampling and follow-up of unexplained clinical signs and symptoms are recommended to minimize false negative results. PROCEDURES/ADDENDA HPV Testing (Requested) Ordered Date: 11/12/2019 A. CERVICAL, LIQUID BASED SPECIMEN: Human Papilloma Virus Test Negative for high-risk human papillomavirus types 16, 18, 45 and the Other high risk probe set (Includes 31, 33, 35, 39, 51, 52, 56, 58, 59, 66, 68) by Ina Kohort Onclarity HR-HPV analysis. Clinical correlation is advised. This HPV test was performed at [facility], [address] [place] [address]. This test has been FDA approved for [facility] cervical cytology specimens. The accuracy and precision of this test for all other specimen sources has been verified in the Cytopathology Laboratory of the [facility] and has not been cleared or approved by the U.S. Food and Drug Administration. Clinical correlation is advised. CLINICAL HISTORY Date of Last Menstrual Period: Menstrual History: Unknown Other Clinical Conditions: Screening Pap SPECIMEN SOURCE A: CERVICAL, LIQUID BASED SPECIMEN us Beatriz Donaldson MEDICAL CLAIMS MANAGER CYTOLOGY ORDERABLES Final Re sult SEE NARRATIVE * Outside Hepatitis C Virus Screening (07/14/2014) Hepatitis C Screening - External Neg Historical Provider LAB BLOOD ORDERABLES Ibis l Result * OUTSIDE HIV TEST (07/14/2014) HIV - External Neg us Historical Provider LAB BLOOD ORDERABLES Ibis l Result from Last 3 Months or Most Recently Relevant to Health Maintenance Insurance [employer] Member Subscriber Plan / Payer (Ef fective 2023-Present) Name:Herlinda Haskins Relation to Subscriber:Self Name:Herlinda Haskins Payer ID:[id number] (NAIC) Type:PPO Address: [place] [id number] [employer] [address] [employer] Member Subscriber Plan / Payer (Ef fective 2023-Present) Name:Herlinda Haskins Relation to Subscriber:Self Name:Saleem Herlinda MSidra Payer ID:[id number] (NA) Type:PPO Address: [address] [employer] Member Subscriber Plan / Payer (Ef fective 2023-) Name:Herlinda Haskins Relation to Subscriber:Self Name:Herlinda Haskins Payer ID:[id number] (NA) Type:PPO Address: [place] [phone] [employer] Advance Directives For more information, please contact: [phone] (9AM - 5PM [facility], Sunday-Sunday) Documents on File Type Date Recorded 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 11/21/2022 3:55 PM * Full Code (Latest Code Status on File) Date Activated Date Inactivated Comments 12/07/2022 9:28 PM Question Answer Comments Code Status Confirmed With: Patient Code Status Communicated To: Inpatient Attending * Full Code Date Activated Date Inactivated Comments 11/17/2022 2:35 PM 12/07/2022 9:28 PM Question Answer Comments Code Status Confirmed With: Patient * Full Code Date Activated Date Inactivated Comments 11/17/2022 10:59 AM 11/17/2022 2:35 PM Question Answer Comments Code Status Confirmed With: Patient * Full Code Date Activated Date Inactivated Comments 10/12/2022 12:54 PM 11/17/2022 10:59 AM Question Answer Comments Code Status Confirmed With: Patient Care Teams Mycologist Relationship Specialty Start Date End Date Eunice Sanz CNP [address] [place] [address], [address] [place] [address] PCP - General Family Medicine 02/11/21 Lester Hicks MD [address] [place] [phone] Historical LMR Provider 07/28/17 Margaux Montanez MD [address] [place] [address], [address] [place] [address] Historical LMR Provider 07/28/17 Neisha Pinto, RANDI [address] [place] [address] iCMP Oral Health Therapist 02/26/23 Shreyas Murphy MD [address] [place] [address] Gastroenterology 06/17/24 Doretha Glynn MD [address] [place] [address] Endocrinology 06/17/24 Additional Source Comments The information contained in this document represents components of the legal health record. It is not the complete legal health record.[facility]
--- OUTSIDE RECORDS SUMMARY | 2025-05-11 14:20 | XMS_ITS | Clinical Summary ---
Author Organization [facility] Address [address] [place] [address] Care Team Providers Care Clay Modeler Name Role Phone Unavailable Primary Care Provider Unavailabl e Social History Tobacco Use Types Packs/Day Years Used Date Smoking Tobacco: Never Assessed Comments Unknown Sex and Gender Information Value Date Recorded Sex Assigned at Not on file Legal Sex Female 12:17 PM EDT Gender Identity Not on file Sexual Orientation [...]
[2025-05-11] MEDS: Lactated Ringers 1,000 ML 999 ML IV ×2 (14:49→16:21)
[2025-05-11] MEDS: Butalb/Acetamin/Caff 50/325/40 TABLET 1 TAB PO (14:49)
[2025-05-11 17:26] VITALS: BP 190/80; PULSE 78; RESP 17; TEMP 36.7; O2SAT 99
== END 2025-05-11 17:27 | disposition home or self-care (01) ==
PROVIDERS: Physician Assistant Medical; Emergency Provider Emergency Medicine Emergency Medical Services; PCP Nurse Practitioner Adult Health
DX: R10.9 Unspecified abdominal pain (principal); E87.6 Hypokalemia; R11.2 Nausea with vomiting, unspecified; R19.7 Diarrhea, unspecified; Z03.818 Encounter for observation for suspected exposure to other biological agents ruled out
CPT/HCPCS: 80053; 83735; 84484; 85025; 87637; 93005; 96361; 96374; 99284; J2405; J7120

== ENCOUNTER → 2025-05-11 11:42 | Outpatient (BNV) | payer OTHER, SELFPAY | PROVIDERS: Emergency Provider Emergency Medicine Emergency Medical Services; PCP Nurse Practitioner Adult Health; Visit Provider Internal Medicine | DX: R94.31 Abnormal electrocardiogram [ECG] [EKG] (principal); R11.10 Vomiting, unspecified | CPT/HCPCS: 93010 ==

== ENCOUNTER 2025-05-13 11:50 | Outpatient (AMB) | payer OTHER, SELFPAY ==
--- NOTE | 2025-05-13 11:54 | A.OFFVIS_ITS ---
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 Patient had a Genicular Artery Embolization done at [facility] on 02/04/[facility]. She reports she was getting cortisone and gel injections at [facility] with another orthopedic office but she would like to become established as a patient in our office. Expresses cortisone offered more relief than gel. She has been doing physical therapy for strengthening the left knee. Hx of Lupus and her flair ups affect her knees. She is having continued pain on the medial aspect and is taking predinose with some relief. She says her co-worker has been out of work so she has been doing more work than usual causing a flair up in her knee. Denies numbness and tingling. Her last left knee injection was over 3 months ago she states. Interested in another injection to the left knee. Denies hx of DM. MRI of Left Knee MR/MR knee LT wo con IMPRESSION: 1. Severe osteoarthritis of the medial compartment as described. Mild thinning of the patellar cartilage. 2. Small to moderate suprapatellar joint effusion. Moderate Franco's cyst. 3. Findings consistent with a degenerative tear of the body of the medial meniscus. Electronically signed by: Yovani Barry MD 02/05/2025 08:13 AM EDT Allergies celecoxib (From Celebrex) Allergy (Verified 05/13/25 12:04) Hives codeine Allergy (Verified 05/13/25 12:04) Vomiting cephalexin (From Keflex) Adverse Reaction (Verified 05/13/25 12:04) Unknown metoclopramide (From Reglan) Adverse Reaction (Verified 05/13/25 12:04) Agitated Medication List - Last Reconciled 05/13/25 by Venancio Portillo PA-C budesonide-formoterol 160-4.5 mcg/actuation inhalation ergocalciferol (vitamin D2) (Vitamin D2) 1,250 mcg PO QWEEK escitalopram oxalate 10 mg PO DAILY famotidine 40 mg PO BID folic acid PO gabapentin mg PO hydrochlorothiazide 25 mg PO DAILY hydroxychloroquine 200 mg PO BID ipratropium bromide intranasal levothyroxine 150 mcg PO DAILY lorazepam mg PO losartan 100 mg PO DAILY methotrexate sodium (PF) mg subcut QWEEK montelukast 10 mg PO DAILY ondansetron 4 mg PO Q8H 3 days pantoprazole 40 mg PO BID pilocarpine HCl mg PO prednisone 40 mg (2 x 20 mg) PO DAILY sodium hyaluronate (viscosup) (Euflexxa) mg intra-articular tramadol 50 mg PO TID PRN trazodone 50 - 150 mg PO BEDTIME PRN triamcinolone acetonide 0.1% dental DAILY HPI HPI 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 She has been seen in the past by another orthopedic group and even Rheumatology who has given her steroid injections with good results. She has also had gel injections and also an geniculate artery embolization procedure which was quite helpful to her pain. She states that she does have limitations with daily activities such as walking long distances, she has instability with walking. She is currently on prednisone for a lupus flare-up which has relieved some of her knee pain. [facility] Medical History (Updated 05/13/25 @ 14:45 by Venancio Portillo PA-C) Sjogrens syndrome Lupus (systemic lupus erythematosus) Review of Systems Const All systems reviewed & are unremarkable except as noted in HPI and below Physical Exam Vital Signs: BMI result Body Mass Index 32.3 Extrem Other: Left knee is normal to inspection she does have some tenderness over the medial joint line. Full range of motion with varus deformity on the left. Calf is supple and nontender neurovascularly intact. Results Reviewed Results Reviewed: X-rays of the left knee obtained and reviewed by me are significant for medial compartment arthritis. Patient also has patellofemoral arthritis Assessment & Plan Assessment & Plan (1) Primary osteoarthritis of left knee: Code(s): M17.12 - Unilateral primary osteoarthritis, left knee Category: Medical Plan The patient will continue with conservative measures. She is already in physical therapy and will continue with strengthening conditioning exercises. We discussed the role of steroid injection and at this time she is not significantly uncomfortable and we will hold off on cortisone. If she does change her mind and would like to schedule , she will contact me directly to book. 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 This will hopefully help with her ability to perform certain activities not feel instability with walking. The patient is content with this plan and will contact me with any questions or concerns. Coding Level of Care Code New Pt Level 3 (85853) Complex EM visit Add On G2211 Diagnoses Primary osteoarthritis of left knee M17.12
[2025-05-13 11:57] VITALS: BMI 32.3
--- OUTSIDE RECORDS SUMMARY | 2025-05-13 12:37 | XMS_ITS | Clinical Summary ---
Author Organization [facility] Address [address] [place] [address] Care Team Providers Care Hospice Clinical Manager Name Role Phone Unavailable Primary Care Provider [...]
--- OUTSIDE RECORDS SUMMARY | 2025-05-13 12:37 | XMS_ITS | Clinical Summary ---
Author Organization [facility] Address [address] [address] Phone Care Team Providers Care Head Scorer Name Role Phone Lester Hicks MD Unavailable [phone] Margaux Montanez MD Unavailable [phone] Eunice Sanz IMAGING NURSE Primary Care Provider [phone] Neisha Pinto RN Unavailable [phone] Shreyas Murphy MD Unavailable [email or web address] Doretha Glynn MD Unavailable [phone] Allergies Active Allergy Reactions Criticality Noted [...] 1 mL 27 x 1/2 SyrgIndications:M ethotrexate, group home, current use Inject 1 each under the [...] folic acid (FOLVITE) 1 MG tabletIndications :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, group home, current use TAKE 1 TABLET BY MOUTH [...] AT BEDTIME 360 tablet 1 025 Active levothyroxine (SYNTHROID, LEVOTHROID) 150 MCG [...] (PLAQUENIL) 200 mg tabletIndications :Inflammatory arthritis,Methotr exate, technician terminal and repeater, current use,Primary osteoarthritis involving multiple joints,Sjogren's syndrome with lung involvement TAKE ONE (1) TABLET BY MOUTH TWICE DAILY 180 tablet 3 025 Active methotrexate sodium, PF, 25 mg/mL injectionIndicati ons:Inflammatory arthritis INJECT 0.8ML (20MG) UNDER THE SKIN EVERY 7 DAYS DIRECTED *DISCARD REMAINDER OF VIAL AFTER OPENING* 8 mL 1 025 Active buPROPion (WELLBUTRIN XL) 150 MG ER 24 hr tabletIndications :Anxiety and depression Take 3 tablets (450 mg total) by mouth daily. 270 tablet 1 021 2021 Discontinued sertraline (ZOLOFT) 100 MG tablet Take 1 tablet (100 mg total) by mouth daily. 90 tablet 1 021 2021 Discontinued hydroxychloroquin e (PLAQUENIL) 200 mg tabletIndications :Inflammatory arthritis,Methotr exate, technician terminal and repeater, current use,Primary osteoarthritis involving multiple joints,Sjogren's syndrome with lung involvement TAKE 1 TABLET(200 MG) BY MOUTH TWICE DAILY 180 tablet 3 024 2024 Discontinued ergocalciferol (DRISDOL) 50,000 unit capsuleIndication s:Vitamin D deficiency, unspecified Take 1 capsule (50,000 Units total) by mouth once a week. 12 capsule 1 025 2024 Discontinued methotrexate sodium, PF, 25 mg/mL injectionIndicati ons:Inflammatory arthritis INJECT 0.8ML (20MG) UNDER THE SKIN EVERY 7 DAYS DIRECTED *DISCARD REMAINDER OF VIAL AFTER OPENING* 22 mL 025 2024 Discontinued Hospital, Clinic, or Other [...] gain. 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 Given active and chronic GI symptoms, I [...] her to contact [facility] clinic at [facility] for advice. Mouth sores 03/20/2022 Assessment [...] one of the aspiration procedures. Improved-followed by barrel bridge assembler and splitter hand. Assessment & Plan (06/17/2024 11:46 AM EDT): S/P repair 2022. Await EGD this week. Assessment & Plan (06/06/2024 12:52 PM EDT): Corrected surgically in November 2022 with subsequent pleural effusions, vasovagal reaction upon one of the aspiration procedures. Improved-followed by barrel bridge assembler and splitter hand. Assessment & Plan (02/28/2022 4:42 PM [...] continue weekly s.c. methotrexate 20 mg every Sunday If recurrent mouth sores become an issue [...] recent labs from late July 2024 at [facility] quite stable on current regimen. Get labs [...] most recent labs from July 2024 at [facility] quite stable on current regimen. Get labs [...] thyroid hormone. Will communicate about labs through [place]. Reviewed symptoms of under and over replacement, patient to call if concerns. Follow-up in 6 months Assessment & Plan (04/23/2023 4:46 PM EDT): Establish care with endocrinology this fall as scheduled. For now, continue current dose of levothyroxine as last TSH was improved and she has not symptoms of over- or under-repletion. Assessment & Plan (07/22/2022 11:05 PM EDT): Close follow-up with treating powder cutting operator exactly as instructed to keep her thyroid function within the optimal range. Assessment & Plan (04/04/2022 11:15 AM EDT): Close follow-up with treating powder cutting operator exactly as instructed to keep her thyroid [...] therapy and follow-up as scheduled with her powder cutting operator. Assessment & Plan (08/22/2020 6:54 PM EST): Carefully continue current dose of thyroid replacements therapy and follow-up as scheduled with her powder cutting operator. Assessment & Plan (05/09/2020 4:52 PM EDT): Carefully continue current dose of thyroid replacements therapy and follow-up as scheduled with her powder cutting operator. Assessment & Plan (12/18/2019 11:01 AM EDT): [...] TSH on 08/08/2019 was suppressed at 0.05 [place] U/mL. I do not know when her [...] [facility] Assessment & Plan (10/30/2022 3:44 [...] [facility] catastrophe living Assessment & Plan (10/24/2020 9:01 PM EST): Carefully continue regular relaxation, meditation, positive imagery, DNRS etc. Remain on gabapentin as prescribed. Sleep hygiene. Balance rest and activity. Proper hydration. Well-balanced nutritionally diet. Keep up-to-date with age-appropriate screenings and preventive strategies. Follow mindfulness approach strategies as described in book written by Dr Landon Knight [facility] catastrophe living Assessment & Plan (08/22/2020 6:55 [...] [facility] Assessment & Plan (07/08/2019 3:03 PM EDT): Carefully continue regular relaxation, meditation, positive imagery, DNRS etc. Remain on gabapentin as prescribed. Sleep hygiene. Balance rest and activity. Proper hydration. Well-balanced nutritionally diet. Keep up-to-date with age-appropriate screenings and preventive strategies. Follow mindfulness approach strategies as described in book written by Dr Landon Knight [facility] catastrophe living Assessment & Plan (03/25/2019 10:18 AM EDT): Carefully continue regular relaxation, meditation, positive imagery, DNRS etc. Remain on gabapentin as prescribed. Sleep hygiene. Balance rest and activity. Proper hydration. Well-balanced nutritionally diet. Keep up-to-date with age-appropriate screenings and preventive strategies. Follow mindfulness approach strategies as described in book written by Dr Landon Lion catastrophe living Assessment & Plan (12/23/2018 2:33 PM EDT): Carefully continue regular relaxation, meditation, positive imagery, DNR S etc. Remain on gabapentin as prescribed. Sleep hygiene. Balance rest and activity. Proper hydration. Well-balanced nutritionally diet. Keep up-to-date with age-appropriate screenings and preventive strategies. Follow mindfulness approach strategies as described in book written by Dr Landon Lion catastrophe living Long-term use of Plaquenil 03/27/2018 Assessment & Plan (03/19/2025 9:53 AM EDT): Daily sun protection. See room service food service attendant as scheduled at least every 12 months.-Most recent checkup from February 2025 Free of signs of Plaquenil toxicity She is arranging for ophthalmologic checkup in the nearest future. Assessment & Plan (12/18/2024 1:02 PM EDT): Daily sun protection. See room service food service attendant as scheduled at least every 12 months. She is arranging for ophthalmologic checkup in the nearest future. Assessment & Plan (10/03/2024 7:03 PM EST): Daily sun protection. See room service food service attendant as scheduled at least every 12 months. She is arranging for ophthalmologic checkup in the nearest future. Assessment & Plan (06/06/2024 12:49 PM EDT): Daily sun protection. See room service food service attendant as scheduled at least every 12 months. She is arranging for ophthalmologic checkup in the nearest future. Assessment & Plan (03/23/2024 12:09 PM EDT): Daily sun protection. See room service food service attendant as scheduled at least every 12 months. Assessment & Plan (11/28/2023 9:30 AM EST): Daily sun protection. See room service food service attendant as scheduled at least every 12 months. Assessment & Plan (05/04/2023 2:51 PM EDT): Daily sun protection. See room service food service attendant as scheduled at least every 12 months. Assessment & Plan (10/30/2022 3:44 PM EST): Daily sun protection. See room service food service attendant as scheduled at least every 12 months. Assessment & Plan (06/28/2022 4:12 PM EDT): Daily sun protection. See room service food service attendant as scheduled at least every 12 months. Assessment & Plan (04/04/2022 11:18 AM EDT): Daily sun protection. See room service food service attendant as scheduled at least every 12 months. Assessment & Plan (12/07/2021 4:45 PM EST): Daily sun protection. See room service food service attendant as scheduled. Assessment & Plan (09/08/2021 3:46 PM EST): Daily sun protection. See room service food service attendant as scheduled. Assessment & Plan (05/25/2021 4:46 PM EDT): Daily sun protection. See room service food service attendant as scheduled. Assessment & Plan (03/24/2021 11:21 AM EDT): Daily sun protection. See room service food service attendant as scheduled. Assessment & Plan (01/12/2021 4:02 PM EDT): Daily sun protection. See room service food service attendant as scheduled. Assessment & Plan (10/24/2020 9:02 PM EST): Daily sun protection. See room service food service attendant as scheduled. Assessment & Plan (08/22/2020 6:55 PM EST): Daily sun protection. See room service food service attendant as scheduled. Assessment & Plan (05/09/2020 4:54 PM EDT): Daily sun protection. See room service food service attendant as scheduled. Assessment & Plan (03/28/2020 12:14 PM EDT): Daily sun protection. See room service food service attendant as scheduled. Assessment & Plan (02/05/2020 10:49 AM EDT): Daily sun protection. See room service food service attendant as scheduled. Assessment & Plan (09/11/2019 8:47 AM EST): Daily sun protection. See room service food service attendant as scheduled. Assessment & Plan (07/08/2019 3:06 PM EDT): Daily sun protection. See room service food service attendant as scheduled. Assessment & Plan (03/25/2019 10:21 AM EDT): Daily sun protection. See room service food service attendant as scheduled. Assessment & Plan (12/23/2018 2:36 PM EDT): Daily sun protection. See room service food service attendant as scheduled. Assessment & Plan (11/19/2018 8:58 PM EST): Daily sun protection. 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 Dry mouth 01/04/2018 Calculus of [...] therapy prior to next visit-standing orders in [facility]. Consider neurology consult regarding headaches and [...] safety and efficacy of therapy-standing orders in [facility]. Assessment & Plan (12/18/2024 10:06 PM EDT): Clinically currently well-controlled except L knee, hands and neck soreness and stiffness particularly in the morning. Get labs monitoring safety and efficacy of therapy today and prior to next visit-standing orders in [facility]. Consider neurology consult regarding headaches and [...] safety and efficacy of therapy-standing orders in [facility]. Assessment & Plan (06/17/2024 11:48 AM EDT): Follow up with Dr. Hicks for Sjogren's, asthma. Continue inhalers. Assessment & Plan (06/06/2024 12:47 PM EDT): Clinically currently well-controlled except L knee, hands and neck soreness and stiffness particularly in the morning. Get labs monitoring safety and efficacy of therapy today and prior to next visit-standing orders in [facility]. Consider neurology consult regarding headaches and [...] safety and efficacy of therapy-standing orders in [facility]. Assessment & Plan (03/14/2024 3:34 PM EDT): Clinically currently well-controlled. Get labs monitoring safety and efficacy of therapy prior to next visit-standing orders in [facility]. Consider neurology consult regarding headaches and [...] therapy prior to next visit-standing orders in [facility]. Consider neurology consult regarding headaches and [...] MD Patient: Herlinda Haskins : 1960 Date: 12/18/2024 Procedure: After [...] MD Patient: Herlinda Haskins : 1960 Date: 12/18/2024 Assessment & [...] at least every 3-4 months-standing orders in [facility]. Gentle, regular exercise routine. Avoid falls, [...] at least every 3 months-standing orders in [facility]. Gentle, regular exercise routine. Avoid falls, [...] at least every 3 months-standing orders in [facility]. Gentle, regular exercise routine. Avoid falls, [...] therapy at least every 3 months. 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, technician terminal and repeater, current use 10/04/2017 Assessment & Plan (03/19/2025 [...] mixture of 1% lidocaine and 40 mg Vthn-Aruyim-akbufo refer for details to procedure note below. [...] mixture of 1% lidocaine and 40 mg Qxet-Dfzmep-vcomcv refer for details to procedure note below. [...] mixture of 1% lidocaine and 40 mg Zqdf-Opqoqr-kxzjng refer for details to procedure note below. [...] mixture of 1% lidocaine and 40 mg Lpym-Qroszd-vooriy refer for details to procedure note below. 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 She agrees. [...] manifestation of SLE but will ask her manager collection to weigh in. Unfortunately, the wait for local dermatologists is quite long and she is anxious that her skin be completely clear for an upcoming wedding. Shortness of breath 12/07/2022 06/17/20 Assessment & Plan (12/08/2022 3:36 PM EST): [...] of 39.0 to 39.9 in adult 03/27/2018 Assessment & Plan (12/07/2021 4:44 PM EST): [...] Type Department Care Team Description 05/11/2025 Refill [facility] Rheumatology [address] [place] [address] [place] [address] Margaux Montanez MD Medication Refill 05/07/2025 Refill [facility] Rheumatology [address] [place] [address] [place] [address] Margaux Montanez MD Medication Refill 04/29/2025 Patient Outreach [facility] INTEGRATED [facility]ARE MANAGEMENT [address] [place] [address] Neisha Pinto, RANDI Care Coordination ([facility] Follow up outreach ) 04/21/2025 Refill [facility] Rheumatology [address] [place] [address] Margaux Montanez MD Medication Refill 04/14/2025 9:30 AM EDT Telemedicine [facility] Radiology Angio IR Clinic [address] [place] [address] Lj Moscoso MD, MPH 04/08/2025 1:20 PM EDT Office Visit [facility] Endocrinology [address] [place] [address] Doretha Glynn MD 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) 03/30/2025 Patient Outreach [facility] [address] [place] [address] Neisha Pinto, RN Care Coordination ([facility] Follow up outreach ) 03/19/2025 9:00 AM EDT Office Visit [facility] Rheumatology [address] [place] [address] Margaux Montanez MD SLE-Sjogren overlap syndrome (Primary Dx); Sjogren's syndrome with lung involvement; Inflammatory arthritis; 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, technician terminal and repeater, current use; Long-term use of Plaquenil; Gastroesophageal reflux disease with esophagitis without hemorrhage; Vitamin D insufficiency; Primary osteoarthritis of both knees; Primary osteoarthritis involving multiple joints; Class 1 obesity due to excess calories with serious comorbidity and body mass index (BMI) of 34.0 to 34.9 in adult 03/16/2025 Refill [facility] [address] [place] [address] Eunice Sanz CNP Medication Refill 03/16/2025 Refill [facility] Pulmonary, Allergy and Critical Care Medicine [address] [place] [address] Lester Hicks MD Medication Refill 03/12/2025 6:20 AM EDT - 03/12/2025 4:36 PM EDT Hospital Encounter [facility] L2 PRU [address] [place] [address] Lj Moscoso MD, MPH Jaquan Meier MD [place], Jeffrey, Kerrie Hernandez Rachida Discharge Disposition: Home or Self Care 03/12/2025 6:06 AM EDT - 03/12/2025 6:18 AM EDT Hospital Encounter [facility] Phlebotomy Admitting [address] [place] [address] Lj Moscoso MD, MPH Discharge Disposition: Home or Self Care 03/12/2025 Orders Only [facility] [address] [place] [address] Jaquan Meier MD Primary osteoarthritis of both knees (Primary Dx) 03/10/2025 Ancillary Orders [facility] Radiology [address] [place] [address] Lj Moscoso MD, MPH 03/10/2025 Ancillary Orders [facility] Radiology [address] [place] [address] Lj Moscoso MD, MPH 03/09/2025 Refill [facility] [address] [place] [address] Eunice Sanz CNP Medication Refill 02/25/2025 Patient Outreach [facility]NAGEMENT [address] [place] [address] Neisha Pinto, RANDI Care Coordination ([facility] Follow up outreach ) 02/18/2025 Refill [facility] Pulmonary, Allergy and Critical Care Medicine [address] [place] [address] Lester Hicks MD Medication Refill 02/17/2025 Orders Only [address] [place] [address] Provider, MD Cesario 02/16/2025 Orders Only [address] [place] [address] Provider, MD Cesario 01/13/2025 Procedure Pass [facility] L2 PRU [address] [place] [address] from Last 3 Months Immunizations Immunization Administration Dates Next Due COVID-19 (Pre-07/30) Pfizer Vaccine, mRNA, PF 03/09/2021,02/16/2021 INFLUENZA, SPLIT VIRUS, TRIVALENT PF 07/11/2024, 08/05/2015 Influenza Quadrivalent MDCK Preservative Free IM 07/04/2023,08/06/2022 Influenza Quadrivalent Prese rvative Free IM 08/06/2021,07/03/2020,07/23/2019,07/24,07/08/2017,07/13/2014 Influenza Quadrivalent w/ Pr eservative IM 07/19/2016 Pneumococcal conjugate PCV13 06/11/2014 Pneumococcal conjugate PCV20 [...] high school, GED, job training, learning the [place] language, technical skills, or developing parenting skills)? [...] your housing situation today? I have vinicius ring 06/10/2024 How many times have you move [...] st Contact Info) Description 06/17/2024 Procedure Pass [address] [address] 06/24/2025 8:00 AM EDT Office Visit [address] [place] [address] Eunice Sanz IMAGING NURSE [address] [place] [address], [address] [place] [address] 06/25/2025 7:45 AM EDT Appointment [address] [address] Eunice Sanz, IMAGING NURSE [address] [place] [address], [address] [place] [address] 07/23/2025 8:00 AM EDT Office Visit [facility] Rheumatology [address] [place] [address] Margaux Montanez MD [address] [place] [address], [address] [place] [address] [email or web address] 09/21/2025 2:30 PM EST Office Visit [facility] Pul[facility], Allergy and Critical Care Medicine [address] [facility] [place] [address] Lester Hicks MD [address] [place] [address] [address] [place] [address] 10/13/2025 9:20 AM EST Office Visit [facility] [address] [place] [address] Doretha Glynn MD [address] [place] [address] [address] [place] [address] [email or web address] Health Maintenance Due Date Last Done Comments [...] independent provider spent 120 minutes of continuous fpqm-jy-qhum sedation time with the patient. Patient Radiation Dose: Fluoroscopy Time: 34.8 minutes. Cumulative Dose: 90.76 mGy. Htuy-Ttdo-Wwrsqyv: 2273.0 microGy x m^2. Embolic Material: 3:1 Lipiodol and [id number] Emulsion Technique and Findings: Written informed consent [...] diminutive superior medial genicular artery. A 2.0 [place] TruSelect microcatheter and Fathom-14 microwire were used coaxially to superselect the descending genicular artery articular branch. Digital subtraction angiography from the selected genicular arteries was performed via the microcatheter at 1 mL/s for a total of 3 ml at 800 psi. Digital subtraction angiography demonstrated abnormal neovascularity and hyperemia. Lipiodol and [id number] were mixed in a 3:1 ratio on [...] genicular arteries in the left knee. ATTESTATION: I, Lj Epelboym, MD, MPH , the teaching physician, was [...] radiology department nursing staff and supervised by [facility] independent provider. The following parameters were monitored:oxygen saturation, heart rate, blood pressure and response to care. [facility] independent provider spent 120 minutes of continuous oqpz-ac-qjxjhzfcsfqp time with the patient. Patient Radiation Dose: Fluoroscopy Time: 34.8 minutes. Cumulative Dose: 90.76 mGy. Stht-Knso-Kpgnlcz: 2273.0 microGy x m^2. Embolic Material: 3:1 Lipiodol and [id number] Emulsion Technique and Findings: Written informed consent [...] anddiminutive superior medial genicular artery. A 2.0 [place] TruSelect microcatheter and Fathom-14 microwire were usedcoaxially to superselect the descending genicular artery articular branch.Digital subtraction angiography from the selected genicular arteries wasperformed via the microcatheter at 1 mL/s for a total of 3 ml at 800 psi.Digital subtraction angiography demonstrated abnormal neovascularity andhyperemia. Lipiodol and [id number] were mixed in a 3:1 ratio on [...] edited thereport originally created by Jaquan Meier. Lj Moscoso MD, MPH IMG IR Final Resul t * POCT Activated Clotting Time (03/12/2025 11:08 AM EDT) Only the most recent of2 resultswithin the time period is included. activated clotting time 106 74 - 137 SEC [facility] CARDIAC CATH DIAG INTERVENTION CTR 03/12/2025 11:0 8 AM EDT 03/12/2025 12:44 PM EDT Lj Moscoso MD, MPH POINT OF CARE TEST ORDERABL ES Final Result [facility] CARDIAC CATH DIAG INTERVENTION CTR [address] [place] [id number] * PT-INR (03/12/2025 6:10 AM EDT) PT 10.9 10.0 - 13.0 sec [facility] INR 1.0 0.9 - 1.1 [facility] 03/12/2025 6:10 AM EDT 03/12/2025 6:48 AM EDT us Lj Moscoso MD, MPH LAB BLOOD ORDERABLES Final Result [facility] [address] [place] [address] * (ABNORMAL) CBC and differential (03/12/2025 6:10 AM EDT) WBC 4.58 4.00 - 11.00 K/uL [facility] RBC 4.39 4.00 - 5.20 M/uL [facility] HGB 12.8 12.0 - 16.0 g/dL [facility] HCT 40.5 36.0 - 46.0 % [facility] PLT 275 150 - 450 K/uL [facility] MCV 92.3 80.0 - 100.0 fL [facility] MCH 29.2 27.0 - 31.0 pg [facility] MCHC 31.6(L) 32.0 - 36.0 g/dL [facility] RDW 12.8 11.5 - 14.5 % [facility] MPV 10.4 8.4 - 12.0 fL [facility] NRBC 0.00 0.00 /100 WBCs [facility] ABSOLUTE NRBC 0.00 0.00 K/uL [facility] CL IN[facility] DIFF METHOD Auto [facility] NEUTS 45.8(L) 48.0 - 76.0 % [facility] LYMPHS 42.8(H) 18.0 - 41.0 % [facility] MONOS 8.1 4.0 - 11.0 % [facility] EOS 2.4 0.0 - 5.0 % [facility] BASOS 0.7 0.0 - 1.5 % [facility] % IMMATURE GRANS 0.2 0.0 - 0.9 % [facility] ABSOLUTE NEUTS 2.10 1.92 - 7.60 K/uL [facility] Comment:1.21-5.39 cells/KL i s the reference range for individuals with the Robledo null phenotype ABSOLUTE LYMPHS 1.96 0.72 - 4.10 K/uL [facility] ABSOLUTE MONOS 0.37 0.16 - 1.10 K/uL [facility] ABSOLUTE EOS 0.11 0.00 - 0.50 K/uL [facility] ABSOLUTE BASOS 0.03 0.00 - 0.15 K/uL [facility] ABS IMMATURE GRANS 0.01 0.00 - 0.09 K/uL [facility] ABSOLUTE NEUTROPHIL COUNT 2.10 1.92 - 7.60 K/uL [facility] Comment: Automated cell count. Manual ANC may differ if performed. 1.21-5.39 cells/KL is the reference range for individuals with the Robledo null phenotype Blood 03/12/2025 6:10 AM EDT 03/12/2025 6:48 AM EDT Lj Moscoso MD, MPH LAB BLOOD ORDERABLES Final Result Performing Organization Address [facility] [facility] de Phone Number [facility] [address] [place] [address] * Basic metabolic panel (03/12/2025 6:10 AM EDT) SODIUM 142 136 - 145 mmol/L [facility] POTASSIUM 3.4 3.4 - 5.1 mmol/L [facility] CHLORIDE 103 98 - 107 mmol/L [facility] CO2 31 22 - 31 mmol/L [facility] BUN 11 6 - 23 mg/dL [facility] CREATININE 0.80 0.50 - 1.20 mg/dL [facility] GLUCOSE 84 70 - 100 mg/dL [facility] CALCIUM 9.7 8.8 - 10.7 mg/dL [facility] EGFR 83 >59 mL/min/1.7 3m2 [facility] Comment:Estimated glomerular filtration rate calculated using the CKD-EPI refit equation. ANION GAP 8 7 - 17 mmol/L [facility] 03/12/2025 6:10 AM EDT 03/12/2025 6:48 AM EDT Lj Moscoso MD, MPH LAB BLOOD ORDERABLES Final Result Performing Organization Address [facility] de Phone Number [facility] [address] [place] [id number] * TSH (12/10/2024 4:12 PM EST) Blood us Doretha Glynn MD LAB BLOOD ORDERABLES Final Res ult EXTERNAL NON-INTERFACED REF LAB * ENDOSCOPY, COLON (06/20/2024 9:51 AM EDT) Narrative Transcriptions Shreyas Murphy MD - 06/20/2024 9:51 AM EDT [facility] Patient Name: Herlinda Saleem Attending MD:: SHREYAS MURPHY MD, Procedure Date: 06/20/2024 9:51 AM Date of : 1960 Age: 64 Admit Type: Outpatient Gender: Female Room: [place] [address] Referring MD: EUNICE SANZ Exam Type: Colonoscopy [...] 9:51 AM Procedure Code(s): --- Professional --- 99837, Colonoscopy, flexible; with biopsy, single or multiple --- Technical --- 51615, Colonoscopy, flexible; with biopsy, single or multiple Diagnosis Code(s): --- Professional --- K52.9, Noninfective gastroenteritis and colitis, unspecified --- Technical --- K52.9, Noninfective gastroenteritis and colitis, unspecified CPT copyright 2021 [employer]. All rights reserved. The codes documented in this report are preliminary and upon counter top maker reviewmay be revised to meet current compliance requirements. Procedure Date: 06/20/2024 9:51:53 AM [address] [place] [address] Eunice Sanz CNP GI PROCEDURE ORDERABLES F inal [...] Recommendation: Left Mammography Screening us Eunice Sanz IMAGING NURSE IMG MG EXAMS Final Res ult * (ABNORMAL) Lipid panel (12/08/2020 4:37 PM EST) HDL 60 mg/dL [facility] Comment: Interpretation <40 mg/dL: Low HDL cholesterol (major risk factor for CHD) Greater than or equal to 60 mg/dL: High HDL cholesterol ( negative risk factor for CHD) HDL - cholesterol is affected by a number of factors, e.g. smoking, excerise, hormones, sex and age. CHOLESTEROL 192 0 - 240 mg/dL [facility] TRIGLYCERIDES 139 30 - 160 mg/dL [facility] LDL 104 50 - 129 mg/dL [facility] Comment: LDL levels in terms of risk for coronary heart disease: <100 mg/dL: Optimal 100-129 mg/dL: Near or above optimal 130-159 mg/dL: Borderline high 160-189 mg/dL: High >190 mg/dL: Very High CARDIAC RISK RATIO 3.2(L) 3.3 - 4.4 [facility] Blood 12/08/2020 4:37 PM EST 12/08/2020 4:45 PM EST us Mamta Whitney DO LAB BLOOD ORDERABLES Final Result [address] [address] * Fecal immunochemical test x1 (FIT) (04/15/2020 8:00 AM EDT) Immuno Fecal Occult Negative [facility] Stool (Stool) 04/15/2020 8:0 0 AM EDT 04/15/2020 4:23 PM EDT us Alise Winkler PA-C BODY FLUIDS AND STOOLS ORDERABL ES Final Result Performing Organization Address City/[facility]/ZIP Co de Phone Number [address] [address] * Pap Smear (11/11/2019 12:00 AM EST) 11/11/2019 11/12/2019 9:2 0 AM EST Narrative SEE NARRATIVE - 11/27/2019 9:21 [place] [address] MANAGER STRATEGIC DEVELOPMENT Cytology Report Patient Name: HERLINDA HASKINS : 1960 (Age: 59) Sex: F Institution: [facility] Location: [facility] Date of Collection: 11/11/2019 Date of Reported: 11/27/2019 09:21 Results to: Beatriz Donaldson MSN, BSN FINAL DIAGNOSIS A. CERVICAL, LIQUID BASED SPECIMEN: SPECIMEN ADEQUACY: Satisfactory for evaluation. INTERPRETATION: NEGATIVE FOR INTRAEPITHELIAL LESION OR MALIGNANCY. ADDITIONAL INFORMATION: Atrophic changes present. This specimen was prescreened using the [employer] System. Electronically Signed Out By: Norma [email or web address])ANDREEA Cervical cytology is a screening test primarily [...] 56, 58, 59, 66, 68) by [employer] On[employer] HR-HPV analysis. Clinical correlation is advised. This HPV test was performed at [facility], [address] [place] [address]. This test has been FDA approved for [employer] cervical cytology specimens. The accuracy and precision of this test for all other specimen sources has been verified in the Cytopathology Laboratory of the [facility] and has not been cleared or approved by the U.S. Food and Drug Administration. Clinical correlation is advised. CLINICAL HISTORY Date of Last Menstrual Period: Menstrual History: Unknown Other Clinical Conditions: Screening Pap SPECIMEN SOURCE A: CERVICAL, LIQUID BASED SPECIMEN us Beatriz Donaldson MECHANICAL ENGINEERING TEACHER CYTOLOGY ORDERABLES Final Re sult SEE NARRATIVE * Outside Hepatitis C Virus Screening (07/14/2014) Hepatitis C Screening - External Neg Historical Provider MD LAB BLOOD ORDERABLES Ibis l Result * OUTSIDE HIV TEST (07/14/2014) HIV - External Neg Historical Provider MD LAB BLOOD ORDERABLES Ibis l Result from Last 3 Months or Most Recently Relevant to Health Maintenance Insurance [employer] [place] [employer] Member Subscriber Plan / Payer (Ef fective 2023-) Name:Herlinda Haskins Relation to Subscriber:Self Name:Herlinda Haskins Payer ID:[id number] (NAIC) Type:PPO Address: [place] [id number] [place] [phone] [place] [address] [employer] Member Subscriber Plan / Payer ( fective 2023-Present) Name:Herlinda Haskins Relation to Subscriber:Self Name:Herlinda Haskins Payer ID:[id number] (NAIC) Type:PPO Address: [address] [employer] Member Subscriber Plan / Payer ( fective 2023-Present) Name:Herlinda Haskins Relation to Subscriber:Self Name:Herlinda Haskins Payer ID:[id number] (NAIC) Type:PPO Address: [place] [id number] [facility] BENEFITS ADMINISTRATORS Advance Directives For more information, please contact: [phone] (9AM - 5PM [facility], Sunday-Sunday) Documents on File Type Date Recorded Patient Esthetician Expl anation Healthcare Proxy 11/21/2022 3:55 PM [...] Code Status Confirmed With: Patient Care Teams Head Scorer Relationship Specialty Start Date End Date Eunice Sanz CNP [address] [facility] [place] [address] PCP - General Family Medicine 02/11/21 Lester Hicks MD [address] [place] [address] Historical LMR Provider 07/28/17 Margaux Montanez MD [address] [facility] [address] [address], [address] [place] [address] Historical LMR Provider 07/28/17 Neisha Pinto RN [address] [place] [address] iCMP Drapery Operator 02/26/23 Shreyas Murphy MD [address] [place] [address] Gastroenterology 06/17/24 Doretha Glynn MD [address] [address] Endocrinology 06/17/24 Additional Source Comments The information contained in this document represents components of the legal health record. It is not the complete legal health record.[facility]
== END 2025-05-13 12:37 | disposition home or self-care (01) ==
PROVIDERS: PCP Nurse Practitioner Adult Health; Visit Provider Physician Assistant
DX: M17.12 Unilateral primary osteoarthritis, left knee (principal)
CPT/HCPCS: 99203

== ENCOUNTER 2025-05-14 07:42 | Outpatient (REF) | payer OTHER, SELFPAY ==
--- OUTSIDE RECORDS SUMMARY | 2025-05-14 07:47 | XMS_ITS | Clinical Summary ---
Author Organization [facility] Address [address] [place] [address] Care Team Providers Care Director Of Surgery Name Role Phone Unavailable Primary Care Provider [...]
[2025-05-14 08:05] LABS: MANUAL DIFF FLAG NO
[2025-05-14 08:17] LABS: Hematocrit 37.2 % (37.0-47.0); Hemoglobin 12.7 g/dl (12.0-16.0); Imm Gran Abs Auto 0.02 X10*3/uL (0.00-0.03); Imm Gran Pct Auto 0.3 % (0.0-0.4); Lymphocytes Absolute Auto 3.5 X10*3/uL (1.2-4.9); Mean Corpuscular HGB Conc 34.1 g/dl (31.0-35.0); Mean Corpuscular Hemoglobin 29.3 pg (27.0-33.0); Mean Corpuscular Volume 85.7 fL (80.0-98.0); NRBC Abs Auto 0.000 X10*3/uL (0.0-0.012); NRBC Pct Auto 0.0 /100WBC (0.0-0.2); Platelet Count 256 X10*3/uL (160-400); Red Blood Count 4.34 X10*6/uL (4.20-5.50); White Blood Count 5.8 X10*3/uL (4.8-10.8)
[2025-05-14 08:50] LABS: Alanine Aminotransferase 10 U/L (0-31); Albumin Level 4.0 g/dL (3.5-5.0); Alkaline Phosphatase 46 U/L (39-117); Anion Gap 11 (12-20); Aspartate Amino Transferase 18 U/L (5-31); Blood Urea Nitrogen 11 mg/dL (9-16); Calcium 9.3 mg/dL (8.4-10.2); Carbon Dioxide 32 mmol/L (22-29); Chloride 102 mmol/L (96-108); Estimated Glomerular Filt Rate > 60; Potassium 3.0 mmol/L (3.3-5.1); Sodium 142 mmol/L (135-145); Total Protein 6.4 g/dL (6.5-8.0)
[2025-05-14 09:05] LABS: Protein/Creatinine Ratio, Ur 0.08 (<0.2); Total Protein Urine Random 10 mg/dL (<12)
== END 2025-05-14 07:43 | disposition home or self-care (01) ==
LOC: HO.LAB 07:42
PROVIDERS: PCP Nurse Practitioner Adult Health; Visit Provider Internal Medicine Rheumatology
DX: M35.00 Sjogren syndrome, unspecified (principal); M32.9 Systemic lupus erythematosus, unspecified; M19.90 Unspecified osteoarthritis, unspecified site; Z79.631 Long term (current) use of antimetabolite agent
CPT/HCPCS: 0077U; 80053; 82550; 82570; 82784; 84156; 85025; 85652; 86140; 86160; 86225

== ENCOUNTER 2025-05-27 13:59 | Outpatient (AMB) | payer OTHER, SELFPAY ==
--- NOTE | 2025-05-27 14:02 | A.OFFVIS_ITS ---
Intake Visit Reasons: INJ- Intake Note: Herlinda is a 65 year old female who presents today for a left knee cortisone injection. Allergies celecoxib (From Celebrex) Allergy (Verified 05/27/25 14:15) Hives codeine Allergy (Verified 05/27/25 14:15) Vomiting cephalexin (From Keflex) Adverse Reaction (Verified 05/27/25 14:15) Unknown metoclopramide (From Reglan) Adverse Reaction (Verified 05/27/25 14:15) Agitated Medication List - Last Reconciled 05/27/25 by Venancio Portillo PA-C budesonide-formoterol 160-4.5 mcg/actuation inhalation ergocalciferol (vitamin D2) (Vitamin D2) 1,250 mcg PO QWEEK escitalopram oxalate 10 mg PO DAILY famotidine 40 mg PO BID folic acid PO gabapentin mg PO hydrochlorothiazide 25 mg PO DAILY hydroxychloroquine 200 mg PO BID ipratropium bromide intranasal levothyroxine 150 mcg PO DAILY lorazepam mg PO losartan 100 mg PO DAILY methotrexate sodium (PF) mg subcut QWEEK montelukast 10 mg PO DAILY ondansetron 4 mg PO Q8H 3 days pantoprazole 40 mg PO BID pilocarpine HCl mg PO sodium hyaluronate (viscosup) (Euflexxa) mg intra-articular tramadol 50 mg PO TID PRN trazodone 50 - 150 mg PO BEDTIME PRN triamcinolone acetonide 0.1% dental DAILY HPI HPI INJ-: Details: 65 yo female returns to the office today for ongoing left knee pain. She has stopped her steroids she was taking for her Lupus and since then she has noticed some worsening knee pain. The pain does limit her daility activities and her ability to walk long distances. She has an upcoming vacation and is concerned the pain is going to limit her. [facility] Medical History (Updated 05/13/25 @ 14:45 by Venancio Portillo PA-C) Sjogrens syndrome Lupus (systemic lupus erythematosus) Review of Systems Const All systems reviewed & are unremarkable except as noted in HPI and below Physical Exam Extrem Other: Left knee is normal to inspection she does have some tenderness over the medial joint line. Full range of motion with varus deformity on the left. Calf is supple and nontender neurovascularly intact. Office Procedures AMB Joint Injection/Aspiration Joint Injection/Aspiration Primary Site: left knee Prep: site was prepped using aseptic technique, ethochloride spray was applied and injection warnings given Injected: 80 mg of, DepoMedrol, with 8 mL of, 1% plain lidocaine and in the joint Approach Used: anterolateral Procedure: The patient tolerated the procedure well and there was some relief with the local anesthesia Coding 27614 - Glenohumeral/Tronchanteric Bursa/Intraarticular Procedure code (CPT) selection complete Assessment & Plan Assessment & Plan (1) Primary osteoarthritis of left knee: Code(s): M17.12 - Unilateral primary osteoarthritis, left knee Category: Medical Plan: We discussed options today, which include steroid injection. The patient did consent to move forward with left knee injection, which was tolerated well.? I recommended rest, ice and elevation and OTC antiinflammatories prn for discomfort. If symptoms persist over the next 6-8 weeks, they will contact our office, otherwise, prn Coding Level of Care Code Est Pt Level 3 (06677) Complex EM visit Add On G2211 Diagnoses Primary osteoarthritis of left knee M17.12 CPT Codes Coding - Joint 7: 28178 - Glenohumeral/Tronchanteric Bursa/Intraarticular ([id number])
--- OUTSIDE RECORDS SUMMARY | 2025-05-27 14:56 | XMS_ITS | Clinical Summary ---
Author Organization [facility] Address [address] [place] [address] Care Team Providers Care Dedicated Owner Operator Name Role Phone Unavailable Primary Care Provider [...]
--- OUTSIDE RECORDS SUMMARY | 2025-05-27 14:56 | XMS_ITS | Clinical Summary ---
Author Organization [facility] Address [address] [place] [address] Phone Care Team Providers Care Die Maintenance Name Role Phone Lester Hicks MD Unavailable [phone] Margaux Montanez MD Unavailable [phone] Eunice Sanz FRAUD INVESTIGATOR Primary Care Provider [phone] Neisha Pinto RN Unavailable Shreyas Murphy MD Unavailable Doretha Glynn MD Unavailable [phone] Allergies Active Allergy Reactions Criticality Noted [...] 1 mL 27 x 1/2 SyrgIndications:M [place]otrexate, [facility], current use Inject 1 each under the [...] A DAY NEEDED 30 g 024 Active SEMAGLUTIDE SUBQ Inject 1.5 mg under the skin every 7 days. Active LORazepam (ATIVAN) 0.5 MG tablet Take 1 tablet (0.5 mg total) by mouth daily as needed for anxiety. Do not take with Tramadol or at the same time as trazodone or gabapentin. 15 tablet 025 Active folic acid (FOLVITE) 1 MG tabletIndications :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, [facility], current use TAKE 1 TABLET BY MOUTH [...] (PLAQUENIL) 200 mg tabletIndications :Inflammatory arthritis,Methotr exate, longwall foreman, current use,Primary osteoarthritis involving multiple joints,Sjogren's syndrome with lung involvement TAKE ONE (1) TABLET BY MOUTH TWICE DAILY 180 tablet 3 025 Active methotrexate sodium, PF, 25 mg/mL injectionIndicati ons:Inflammatory arthritis INJECT 0.8ML (20MG) UNDER THE SKIN EVERY 7 DAYS DIRECTED *DISCARD REMAINDER OF VIAL AFTER OPENING* 8 mL 1 025 Active losartan (COZAAR) 100 MG tabletIndications :Essential hypertension TAKE ONE (1) TABLET BY MOUTH EVERY DAY 90 tablet 1 025 Active buPROPion (WELLBUTRIN XL) 150 MG ER 24 hr tabletIndications :Anxiety and depression Take 3 tablets (450 mg total) by mouth daily. 270 tablet 1 021 2021 Discontinued sertraline (ZOLOFT) 100 MG tablet Take 1 tablet (100 mg total) by mouth daily. 90 tablet 1 021 2021 Discontinued hydroxychloroquin e (PLAQUENIL) 200 mg tabletIndications :Inflammatory arthritis,Methotr exate, [facility], current use,Primary osteoarthritis involving multiple joints,Sjogren's syndrome with lung involvement TAKE 1 TABLET(200 MG) BY MOUTH TWICE DAILY 180 tablet 3 024 2024 Discontinued losartan (COZAAR) 100 MG tabletIndications :Essential hypertension TAKE ONE (1) TABLET BY MOUTH EVERY DAY 90 tablet 1 025 2024 Discontinued methotrexate sodium, PF, [...] in writing. Provider: Margaux Montanez MD Patient: Hrelinda Haskins : 1960 Date: 09/17/2024 Allergic rhinitis [...] gain. 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 Given active and chronic GI symptoms, I [...] her to contact Long COVID clinic at [facility] for advice. Mouth sores 03/20/2022 Assessment & [...] one of the aspiration procedures. Improved-followed by manufacturing production manager and sheetrock applicator. Assessment & Plan (06/17/2024 11:46 AM EDT): S/P repair 2022. Await EGD this week. Assessment & Plan (06/06/2024 12:52 PM EDT): Corrected surgically in November 2022 with subsequent pleural effusions, vasovagal reaction upon one of the aspiration procedures. Improved-followed by manufacturing production manager and sheetrock applicator. Assessment & Plan (02/28/2022 4:42 PM EDT): [...] recent labs from late July 2024 at [facility] quite stable on current regimen. Get labs [...] recent labs from late July 2024 at [facility] quite stable on current regimen. Get labs [...] thyroid hormone. Will communicate about labs through [place]. Reviewed symptoms of under and over replacement, patient to call if concerns. Follow-up in 6 months Assessment & Plan (04/23/2023 4:46 PM EDT): Establish care with endocrinology this fall as scheduled. For now, continue current dose of levothyroxine as last TSH was improved and she has not symptoms of over- or under-repletion. Assessment & Plan (07/22/2022 11:05 PM EDT): Close follow-up with treating composing room machinist apprentice exactly as instructed to keep her thyroid function within the optimal range. Assessment & Plan (04/04/2022 11:15 AM EDT): Close follow-up with treating composing room machinist apprentice exactly as instructed to keep her thyroid [...] therapy and follow-up as scheduled with her composing room machinist apprentice. Assessment & Plan (08/22/2020 6:54 PM EST): Carefully continue current dose of thyroid replacements therapy and follow-up as scheduled with her composing room machinist apprentice. Assessment & Plan (05/09/2020 4:52 PM EDT): Carefully continue current dose of thyroid replacements therapy and follow-up as scheduled with her composing room machinist apprentice. Assessment & Plan (12/18/2019 11:01 AM EDT): [...] TSH on 08/08/2019 was suppressed at 0.05 VT U/mL. I do not know when her [...] [facility] Assessment & Plan (05/04/2023 2:50 [...] 9:53 AM EDT): Daily sun protection. See genetic engineer as scheduled at least every 12 months.-Most recent checkup from February 2025 Free of signs of Plaquenil toxicity She is arranging for ophthalmologic checkup in the nearest future. Assessment & Plan (12/18/2024 1:02 PM EDT): Daily sun protection. See genetic engineer as scheduled at least every 12 months. She is arranging for ophthalmologic checkup in the nearest future. Assessment & Plan (10/03/2024 7:03 PM EST): Daily sun protection. See genetic engineer as scheduled at least every 12 months. She is arranging for ophthalmologic checkup in the nearest future. Assessment & Plan (06/06/2024 12:49 PM EDT): Daily sun protection. See genetic engineer as scheduled at least every 12 months. She is arranging for ophthalmologic checkup in the nearest future. Assessment & Plan (03/23/2024 12:09 PM EDT): Daily sun protection. See genetic engineer as scheduled at least every 12 months. Assessment & Plan (11/28/2023 9:30 AM EST): Daily sun protection. See genetic engineer as scheduled at least every 12 months. Assessment & Plan (05/04/2023 2:51 PM EDT): Daily sun protection. See genetic engineer as scheduled at least every 12 months. Assessment & Plan (10/30/2022 3:44 PM EST): Daily sun protection. See genetic engineer as scheduled at least every 12 months. Assessment & Plan (06/28/2022 4:12 PM EDT): Daily sun protection. See genetic engineer as scheduled at least every 12 months. Assessment & Plan (04/04/2022 11:18 AM EDT): Daily sun protection. See genetic engineer as scheduled at least every 12 months. Assessment & Plan (12/07/2021 4:45 PM EST): Daily sun protection. See genetic engineer as scheduled. Assessment & Plan (09/08/2021 3:46 PM EST): Daily sun protection. See genetic engineer as scheduled. Assessment & Plan (05/25/2021 4:46 PM EDT): Daily sun protection. See genetic engineer as scheduled. Assessment & Plan (03/24/2021 11:21 AM EDT): Daily sun protection. See genetic engineer as scheduled. Assessment & Plan (01/12/2021 4:02 PM EDT): Daily sun protection. See genetic engineer as scheduled. Assessment & Plan (10/24/2020 9:02 PM EST): Daily sun protection. See genetic engineer as scheduled. Assessment & Plan (08/22/2020 6:55 PM EST): Daily sun protection. See genetic engineer as scheduled. Assessment & Plan (05/09/2020 4:54 PM EDT): Daily sun protection. See genetic engineer as scheduled. Assessment & Plan (03/28/2020 12:14 PM EDT): Daily sun protection. See genetic engineer as scheduled. Assessment & Plan (02/05/2020 10:49 AM EDT): Daily sun protection. See genetic engineer as scheduled. Assessment & Plan (09/11/2019 8:47 AM EST): Daily sun protection. See genetic engineer as scheduled. Assessment & Plan (07/08/2019 3:06 PM EDT): Daily sun protection. See genetic engineer as scheduled. Assessment & Plan (03/25/2019 10:21 AM EDT): Daily sun protection. See genetic engineer as scheduled. Assessment & Plan (12/23/2018 2:36 PM EDT): Daily sun protection. See genetic engineer as scheduled. Assessment & Plan (11/19/2018 8:58 PM EST): Daily sun protection. Machine Sweeper Brush Maker as scheduled. Dry mouth 01/04/2018 Calculus of [...] therapy prior to next visit-standing orders in [facility]. Consider neurology consult regarding headaches and [...] safety and efficacy of therapy-standing orders in [facility]. Assessment & Plan (12/18/2024 10:06 PM EDT): Clinically currently well-controlled except L knee, hands and neck soreness and stiffness particularly in the morning. Get labs monitoring safety and efficacy of therapy today and prior to next visit-standing orders in [facility]. Consider neurology consult regarding headaches and [...] safety and efficacy of therapy-standing orders in [facility]. Assessment & Plan (06/17/2024 11:48 AM EDT): Follow up with Dr. Hicks for Sjogren's, asthma. Continue inhalers. Assessment & Plan (06/06/2024 12:47 PM EDT): Clinically currently well-controlled except L knee, hands and neck soreness and stiffness particularly in the morning. Get labs monitoring safety and efficacy of therapy today and prior to next visit-standing orders in [facility]. Consider neurology consult regarding headaches and [...] safety and efficacy of therapy-standing orders in [facility]. Assessment & Plan (03/14/2024 3:34 PM EDT): Clinically currently well-controlled. Get labs monitoring safety and efficacy of therapy prior to next visit-standing orders in [facility]. Consider neurology consult regarding headaches and [...] therapy prior to next visit-standing orders in [facility]. Consider neurology consult regarding headaches and [...] at least every 3-4 months-standing orders in [facility]. Gentle, regular exercise routine. Avoid falls, [...] at least every 3 months-standing orders in [facility]. Gentle, regular exercise routine. Avoid falls, [...] Provider: Margaux Montanez MD Patient: Herlinda Mendez Aroldostephen : 1960 Date: 05/04/2023 Assessment & Plan [...] therapy at least every 3 months. 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, [facility] current use 10/04/2017 Assessment & Plan (03/19/2025 [...] mixture of 1% lidocaine and 40 mg Oskb-Epzgzc-gerjvl refer for details to procedure note below. [...] mixture of 1% lidocaine and 40 mg Pixs-Mzrrqt-gnxyhg refer for details to procedure note below. [...] mixture of 1% lidocaine and 40 mg Load-Ntxxww-qjtoib refer for details to procedure note below. [...] mixture of 1% lidocaine and 40 mg Zqdr-Cogdsl-lxknvs refer for details to procedure note below. 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 She [...] manifestation of SLE but will ask her neonatologist to weigh in. Unfortunately, the wait for [...] Encounters Date Type Department Care Team Description 05/25/2025 Refill [facility] [address] [place] [address] [place] [address] Eunice Sanz, TIFFANIE Medication Refill 05/25/2025 Telephone [facility] Rheumatology [address] [place] [address] [place] [address] Margaux Montanez MD 05/22/2025 Telephone [facility] Rheumatology [address] [place] [address] [place] [address] Margaux Montanez MD 05/18/2025 Orders Only [facility] Rheumatology [address] [place] [address] [place] [address] Nancy See MA SLE-Sjogren overlap syndrome; Sjogren's syndrome with lung involvement; Inflammatory arthritis; 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, [facility] current use 05/13/2025 Telephone [facility] Rheumatology [address] [place] [address] [place] [address] Sung Marlow RN 05/13/2025 Nurse Triage [facility] Rheumatology [address] [place] [address] [place] [address] Sung Marlow RN 05/11/2025 Refill [facility] Rheumatology [address] [place] [address] Margaux Montanez MD Medication Refill 05/07/2025 Refill [facility] Rheumatology [address] [place] [address] Margaux Montanez MD Medication Refill 04/29/2025 Patient Outreach [facility] [address] [place] [address] Neisha Pinto, RN Care Coordination ([facility] Follow up outreach ) 04/21/2025 Refill [facility] Rheumatology [address] [place] [address] [place] [address] Margaux Montanez MD Medication Refill 04/14/2025 9:30 AM EDT Telemedicine [facility] Radiology [facility] [address] [place], [place] [id number] Lj Moscoso MD, MPH 04/08/2025 1:20 PM EDT Office Visit [facility] [address] [place] [address] [place] [address] Doretha Glynn MD 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 [address] [address] Neisha Pinto, RN Care Coordination ([facility] Follow up outreach ) 03/19/2025 9:00 AM EDT Office Visit [facility] Rheumatology [address] [place] [address] [place] [address] Margaux Montanez MD SLE-Sjogren overlap syndrome (Primary Dx); Sjogren's syndrome with lung involvement; Inflammatory arthritis; 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, longwall foreman, current use; Long-term use of Plaquenil; Gastroesophageal reflux disease with esophagitis without hemorrhage; Vitamin D insufficiency; Primary osteoarthritis of both knees; Primary osteoarthritis involving multiple joints; Class 1 obesity due to excess calories with serious comorbidity and body mass index (BMI) of 34.0 to 34.9 in adult 03/16/[address] [place] [address] Eunice Sanz, FRAUD INVESTIGATOR Medication Refill 03/16/2025 Refill [facility], Allergy [facility] Critical Care Medicine [address] [place] [address] Lester Hicks MD Medication Refill 03/12/2025 6:20 AM EDT - 03/12/2025 4:36 PM EDT Hospital Encounter [facility] L2 PRU [address] [place] [address] Lj Moscoso MD, MPH Jaquan Meier MD [place], Jeffrey, Kerrie Hernandez Rachida Discharge Disposition: Home or Self Care 03/12/2025 6:06 AM EDT - 03/12/2025 6:18 AM EDT Hospital Encounter [facility] Phlebotomy Admitting [address] [place] [address] Lj Moscoso MD, MPH Discharge Disposition: Home or Self Care 03/12/2025 Orders Only [address] [address] Jaquan Meier MD Primary osteoarthritis of both knees (Primary Dx) 03/10/2025 Ancillary Orders [facility] Radiology [address] [place] [address] Lj Moscoso MD, MPH 03/10/2025 Ancillary Orders [facility]iology [address] [place] [address] Lj Moscoso MD, MPH 03/09/2025 Refill [facility] [address] [place] [address] Eunice Sanz, FRAUD INVESTIGATOR Medication Refill 02/25/2025 Patient Outreach [facility] [address] [place] [address] Neisha Pinto, RN Care Coordination ([facility] Follow up outreach ) 01/13/2025 Procedure Pass [facility] L2 PRU [address] [place] [address] from Last 3 Months Immunizations Immunization Administration [...] high school, GED, job training, learning the Stat[place] language, technical skills, or developing parenting skills)? [...] st Contact Info) Description 06/17/2024 Procedure Pass [address] [address] 06/24/2025 8:00 AM EDT Office Visit [address] [place] [address] Eunice Sanz, FRAUD INVESTIGATOR [address] [place] [address], [address] [place] [address] [email or web address] 06/25/2025 7:45 AM EDT Appointment [address] [address] Eunice Sanz, FRAUD INVESTIGATOR [address] [place] [address], [address] [place] [address] 07/23/2025 8:00 AM EDT Office Visit [facility] Rheumatology [address] [place] [address] Margaux Montanez MD [address] [place] [address], [address] [place] [address] [email or web address] 09/21/2025 2:30 PM EST Office Visit [facility] Allergy [facility] Critical [facility] Medicine [address] [place] [address] Lester Hicks MD [address] [place] [address] 10/13/2025 9:20 AM EST Office Visit [facility] [address] [place] [address] Doretha Glynn MD [address] [place] [address] [email or web address] Health Maintenance Due Date Last Done Comments COLOGUARD 2007 FOBT 2007 SIGMOIDOSCOPY 2007 VIRTUAL COLONOSCOPY 2007 FIT TEST 04/15/2021 04/15/2020 COVID-19 VACCINE ( season) 2024 08/03/2021, 03/09/2021, 02/16/2021 PAP SMEAR 11/11/2024 11/11/2019 MAMMOGRAM 01/04/2025 01/04/2023, 07/09, 08/12/2018, Additional history exists DEPRESSION SCREENING 06/10/2025 06/10/2024, 10/29/19 24 BLOOD PRESSURE 10/09/2025 04/08/2025 LIPID PANEL 12/08/2025 12/08/2020 TSH LEVEL 12/10/2025 12/10/2024, 09/09, 02/26/2024, Additional history exists POTASSIUM LEVEL 03/12/2026 03/12/2025, 02/06, 11/14/2023, Additional history exists CREATININE LEVEL 05/14/2026 05/14/2025, 02/2025, 12/10/2024, Additional history exists Adult Td,Tdap Booster 06/13/2026 [...] Procedure Name Priority Date/Time Associated Diagnosis Comments TOTAL PROTEIN CREATININE RATIO, RANDOM URINE Routine 05/14/2025 3:12 PM EDT SLE-Sjogren overlap syndrome Sjogren's syndrome with lung involvement Inflammatory arthritis 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, [facility] use DOUBLE STRANDED DNA ANTIBODIES Routine 05/14/2025 3:12 PM EDT SLE-Sjogren overlap syndrome Sjogren's syndrome with lung involvement Inflammatory arthritis 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, [facility], current use CPK (CREATINE KINASE) Routine 05/14/2025 3:12 PM EDT SLE-Sjogren overlap syndrome Sjogren's syndrome with lung involvement Inflammatory arthritis 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, longwall foreman, current use COMPLEMENT C4 Routine 05/14/2025 3:12 PM EDT SLE-Sjogren overlap syndrome Sjogren's syndrome with lung involvement Inflammatory arthritis 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, longwall foreman, current use COMPLEMENT C3 Routine 05/14/2025 3:12 PM EDT SLE-Sjogren overlap syndrome Sjogren's syndrome with lung involvement Inflammatory arthritis 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, [facility], current use CBC AND DIFFERENTIAL Routine 05/14/2025 3:12 PM EDT SLE-Sjogren overlap syndrome Sjogren's syndrome with lung involvement Inflammatory arthritis 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, longwall foreman, current use SEDIMENTATION RATE (ESR) Routine 05/14/2025 3:12 PM EDT SLE-Sjogren overlap syndrome Sjogren's syndrome with lung involvement Inflammatory arthritis 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, [facility] use C-REACTIVE PROTEIN Routine 05/14/2025 3: 12 PM EDT SLE-Sjogren overlap syndrome Sjogren's syndrome with lung involvement Inflammatory arthritis 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, longwall foreman, current use COMPREHENSIVE METABOLIC PANEL Routine 05/14/2025 3:12 PM EDT SLE-Sjogren overlap syndrome Sjogren's syndrome with lung involvement Inflammatory arthritis 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, [facility] current use IR EMBOLIZATION ARTERIAL Routine 03/12/2025 11:34 AM [...] Recently Relevant to Health Maintenance Results * Total protein creatinine ratio, random urine (05/14/2025 3:12 PM EDT) Urine (Urine) Margaux Montanez MD URINE ORDERABLES Final R esult Performing Organization Address [facility] de Phone Number EXTERNAL NON-INTERFACED REF LAB * Double stranded DNA antibodies (05/14/2025 3:12 PM EDT) Blood Margaux Montanez MD LAB BLOOD ORDERABLES Fin al Result Performing Organization Address [facility] de Phone Number EXTERNAL NON-INTERFACED REF LAB * CPK (creatine kinase) (05/14/2025 3:12 PM EDT) Blood Margaux Montanez MD LAB BLOOD ORDERABLES Fin al Result Performing Organization Address [facility] de Phone Number EXTERNAL NON-INTERFACED REF LAB * Complement C4 (05/14/2025 3:12 PM EDT) Blood Margaux Montanez MD LAB BLOOD ORDERABLES Fin al Result Performing Organization Address [facility] de Phone Number EXTERNAL NON-INTERFACED REF LAB * Complement C3 (05/14/2025 3:12 PM EDT) Blood Margaux Montanez MD LAB BLOOD ORDERABLES Fin al Result Performing Organization Address [facility] de Phone Number EXTERNAL NON-INTERFACED REF LAB * CBC and differential (05/14/2025 3:12 PM EDT) Only the most recent of2 resultswithin the time period is included. Blood Margaux Montanez MD LAB BLOOD ORDERABLES Fin al Result Performing Organization Address [facility] Phone Number EXTERNAL NON-INTERFACED REF LAB * Sedimentation rate (ESR) (05/14/2025 3:12 PM EDT) Blood Margaux Montanez MD LAB BLOOD ORDERABLES Fin al Result Performing Organization Address [facility] de Phone Number EXTERNAL NON-INTERFACED REF LAB * C-Reactive Protein (05/14/2025 3:12 PM EDT) Blood Margaux Montanez MD LAB BLOOD ORDERABLES Fin al Result Performing Organization Address [facility] de Phone Number EXTERNAL NON-INTERFACED REF LAB * Comprehensive metabolic panel (05/14/2025 3:12 PM EDT) Blood Margaux Montanez MD LAB BLOOD ORDERABLES Fin al Result Performing Organization Address [facility] de Phone Number EXTERNAL NON-INTERFACED REF LAB * IR Embolization Arterial Lower Extremity; Left; [...] independent provider spent 120 minutes of continuous jkit-fx-lcul sedation time with the patient. Patient Radiation Dose: Fluoroscopy Time: 34.8 minutes. Cumulative Dose: 90.76 mGy. Wcmb-Eakp-Hglbyxq: 2273.0 microGy x m^2. Embolic Material: 3:1 Lipiodol and [id number] Emulsion Technique and Findings: Written informed consent [...] diminutive superior medial genicular artery. A 2.0 [place] TruSelect microcatheter and Fathom-14 microwire were used coaxially to superselect the descending genicular artery articular branch. Digital subtraction angiography from the selected genicular arteries was performed via the microcatheter at 1 mL/s for a total of 3 ml at 800 psi. Digital subtraction angiography demonstrated abnormal neovascularity and hyperemia. Lipiodol and [id number] were mixed in a 3:1 ratio on [...] independent provider spent 120 minutes of continuous ihpz-kd-pkxowkfeqehc time with the patient. Patient Radiation Dose: Fluoroscopy Time: 34.8 minutes. Cumulative Dose: 90.76 mGy. Ygyx-Decm-Idihjfq: 2273.0 microGy x m^2. Embolic Material: 3:1 Lipiodol and [id number] Emulsion Technique and Findings: Written informed consent [...] anddiminutive superior medial genicular artery. A 2.0 [place] TruSelect microcatheter and Fathom-14 microwire were usedcoaxially to superselect the descending genicular artery articular branch.Digital subtraction angiography from the selected genicular arteries wasperformed via the microcatheter at 1 mL/s for a total of 3 ml at 800 psi.Digital subtraction angiography demonstrated abnormal neovascularity andhyperemia. Lipiodol and [id number] were mixed in a 3:1 ratio on [...] clotting time 106 74 - 137 SEC [facility] CARDIAC CATH DIAG [facility] 03/12/2025 11:0 8 AM EDT 03/12/2025 12:44 PM EDT Lj Moscoso MD, MPH POINT OF CARE TEST ORDERABL ES Final Result Performing Organization Address [facility] de Phone Number [facility] CATH [facility] [address] [place] [id number] * PT-INR (03/12/2025 6:10 AM EDT) PT 10.9 10.0 - 13.0 sec [facility] INR 1.0 0.9 - 1.1 [facility] AL [facility] 03/12/2025 6:10 AM EDT 03/12/2025 6:48 AM EDT Lj Moscoso MD, MPH LAB BLOOD ORDERABLES Final Result Performing Organization Address [facility] Co de Phone Number [facility] [address] [place] [phone] * Basic metabolic panel (03/12/2025 6:10 AM EDT) SODIUM 142 136 - 145 mmol/L [facility] POTASSIUM 3.4 3.4 - 5.1 mmol/L [facility] CHLORIDE 103 98 - 107 mmol/L [facility] CO2 31 22 - 31 mmol/L [facility] BUN 11 6 - 23 mg/dL [facility] CREATININE 0.80 0.50 - 1.20 mg/dL [facility] GLUCOSE 84 70 - 100 mg/dL [facility] CALCIUM 9.7 8.8 - 10.7 mg/dL [facility] EGFR 83 >59 mL/min/1.7 3m2 [facility] Comment:Estimated glomerular filtration rate calculated using the CKD-EPI refit equation. ANION GAP 8 7 - 17 mmol/L [facility] 03/12/2025 6:10 AM EDT 03/12/2025 6:48 AM EDT us Lj Moscoso MD, MPH LAB BLOOD ORDERABLES Final Result [facility] [address] [address] * TSH (12/10/2024 4:12 PM EST) Blood us Doretha Glynn MD LAB BLOOD ORDERABLES Final Res ult EXTERNAL NON-INTERFACED REF LAB * ENDOSCOPY, COLON (06/20/2024 9:51 AM EDT) Narrative Transcriptions Shreyas Murphy MD - 06/20/2024 9:51 AM EDT [facility] Patient Name: Herlinda Haskins Attending MD:: SHREYAS MURPHY MD, Procedure Date: 06/20/2024 9:51 AM Date of : 1960 Age: 64 Admit Type: Outpatient Gender: Female Room: [facility] 05 Referring MD: EUNICE SANZ Exam Type: Colonoscopy [...] 9:51 AM Procedure Code(s): --- Professional --- 32502, Colonoscopy, flexible; with biopsy, single or multiple --- Technical --- 90776, Colonoscopy, flexible; with biopsy, single or multiple Diagnosis Code(s): --- Professional --- K52.9, Noninfective gastroenteritis and colitis, unspecified --- Technical --- K52.9, Noninfective gastroenteritis and colitis, unspecified CPT copyright 2021 [employer]. All rights reserved. The codes documented in this report are preliminary and upon remote medical coder reviewmay be revised to meet current compliance requirements. Procedure Date: 06/20/2024 9:51:[address] [place] [address] [id number] Eunice Sanz [facility] GI PROCEDURE ORDERABLES F inal Result * [...] DATE: 12 Months Recommendation: Left Mammography Screening Eunice Sanz [facility] IMG MG EXAMS Final Res ult * (ABNORMAL) Lipid panel (12/08/2020 4:37 PM EST) HDL 60 mg/dL [facility] Comment: Interpretation <40 mg/dL: Low HDL cholesterol (major risk factor for CHD) Greater than or equal to 60 mg/dL: High HDL cholesterol ( negative risk factor for CHD) HDL - cholesterol is affected by a number of factors, e.g. smoking, excerise, hormones, sex and age. CHOLESTEROL 192 0 - 240 mg/dL [facility] TRIGLYCERIDES 139 30 - 160 mg/dL [facility] LDL 104 50 - 129 mg/dL [facility] Comment: LDL levels in terms of risk for coronary heart disease: <100 mg/dL: Optimal 100-129 mg/dL: Near or above optimal 130-159 mg/dL: Borderline high 160-189 mg/dL: High >190 mg/dL: Very High CARDIAC RISK RATIO 3.2(L) 3.3 - 4.4 [facility] Blood 12/08/2020 4:37 PM EST 12/08/2020 4:45 PM EST us Mamta Whitney DO LAB BLOOD ORDERABLES Final Result Performing Organization Address [facility]/ZIP Co de Phone Number [address] [address] * Fecal immunochemical test x1 (FIT) (04/15/2020 8:00 AM EDT) Immuno Fecal Occult Negative [facility] Stool (Stool) 04/15/2020 8:0 0 AM EDT 04/15/2020 4:23 PM EDT us Alise Winkler PA-C BODY FLUIDS AND STOOLS ORDERABL ES Final Result Performing Organization Address [facility] de Phone Number [address] [address] * Pap Smear (11/11/2019 12:00 AM EST) 11/11/2019 11/12/2019 9:2 0 AM EST Narrative SEE NARRATIVE - 11/27/2019 9:21 [place] [address] [employer] 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 CERVICAL, LIQUID BASED SPECIMEN: SPECIMEN ADEQUACY: Satisfactory for evaluation. INTERPRETATION: NEGATIVE FOR INTRAEPITHELIAL LESION OR MALIGNANCY. ADDITIONAL INFORMATION: Atrophic changes present. This specimen was prescreened using the [employer] Imaging System. Electronically Signed Out By: Norma LoBuono CT(ASCP)MB Cervical cytology is a screening test primarily [...] 52, 56, 58, 59, 66, 68) by [employer] HR-HPV analysis. Clinical correlation is advised. This HPV test was performed at [facility], [address] [place] [address]. This test has been FDA approved for [facility] cervical cytology specimens. The accuracy and precision of this test for all other specimen sources has been verified in the Cytopathology Laboratory of the [facility] and has not been cleared or approved by the U.S. Food and Drug Administration. Clinical correlation is advised. CLINICAL HISTORY Date of Last Menstrual Period: Menstrual History: Unknown Other Clinical Conditions: Screening Pap SPECIMEN SOURCE A: CERVICAL, LIQUID BASED SPECIMEN Beatriz Donaldson [facility] CYTOLOGY ORDERABLES Final Re sult SEE NARRATIVE * Outside Hepatitis C Virus Screening (07/14/2014) Hepatitis C Screening - External Neg Historical Provider LAB BLOOD ORDERABLES Ibis l Result * OUTSIDE HIV TEST (07/14/2014) HIV - External Neg Historical Provider LAB BLOOD ORDERABLES Ibis l Result from Last 3 Months or Most Recently Relevant to Health Maintenance Insurance [employer] [address] [address] [employer] ADMINISTRAT[employer] ADMINISTRATORS [employer]MINISTRATORS [employer]MINISTRAT[employer] Member Subscriber Plan / Payer ( fective 2023-Present) Name:Herlinda Haskins Relation to Subscriber:Self Name:Herlinda Haskins Payer ID:[id number] (NAIC) Type:PPO Address: [address] Advance Directives For more information, please contact: [phone] (9AM - 5PM [facility], Sunday-Sunday) Documents on File Type Date Recorded Patient Compliance Associate Expl anation Healthcare Proxy 11/21/2022 3:55 PM [...] Code Status Confirmed With: Patient Care Teams Die Maintenance Relationship Specialty Start Date End Date Eunice Sanz CNP [address] [place] [address], [address] [place], [place] [id number] PCP - General Family Medicine 02/11/21 Lester Hicks MD [address] [place] [address] [email or web address] Historical LMR Provider 07/28/17 Margaux Montanez MD [address] [place] [address], [address] [place] [address] Historical LMR Provider 07/28/17 Neisha Pinto, RANDI [address] [place] [address] [email or web address] [employer] Automotive Title Clerk 02/26/23 Shreyas Murphy MD [address] [place] [address] Gastroenterology 06/17/24 Doretha Glynn MD [address] [place] [address] [address] [place] [address] Endocrinology 06/17/24 Additional Source Comments The information contained in this document represents components of the legal health record. It is not the complete legal health record.[facility]
== END 2025-05-27 14:19 | disposition home or self-care (01) ==
LOC: HO.HOS 14:00
PROVIDERS: PCP Nurse Practitioner Adult Health; Visit Provider Physician Assistant
DX: M17.12 Unilateral primary osteoarthritis, left knee (principal)
CPT/HCPCS: 20610

== ENCOUNTER → 2025-05-27 13:59 | Outpatient (BNVA) | payer OTHER, SELFPAY | PROVIDERS: PCP Nurse Practitioner Adult Health; Visit Provider Physician Assistant | DX: M17.12 Unilateral primary osteoarthritis, left knee (principal) | CPT/HCPCS: 20610; J1010; J2003 ==

== ENCOUNTER 2025-07-07 07:04 | Outpatient (RCR) | payer OTHER, SELFPAY | END 2025-09-21 10:41 | disposition home or self-care (01) | LOC: HO.PT 07:04 | PROVIDERS: PCP Nurse Practitioner Adult Health; Visit Provider Internal Medicine Rheumatology | DX: M25.562 Pain in left knee (principal); M25.561 Pain in right knee; M25.462 Effusion, left knee; M25.461 Effusion, right knee; M25.662 Stiffness of left knee, not elsewhere classified; M25.661 Stiffness of right knee, not elsewhere classified; M17.0 Bilateral primary osteoarthritis of knee; Z98.890 Other specified postprocedural states | CPT/HCPCS: 97110; 97112; 97140; 97162; 97530 ==

== ENCOUNTER 2025-07-08 07:09 | Outpatient (REF) | payer OTHER, SELFPAY ==
--- OUTSIDE RECORDS SUMMARY | 2021-10-10 18:00 | XMS_ITS | Encounter Summary ---
Author Organization [facility] Address [address] [place] [address] [place] [address] Phone Care Team Providers Care Purchasing Director Name Role Phone Tricia Balderas Unavailable Lester Hicks MD Unavailable [phone] Margaux Montanez MD Unavailable Demario lFoyd MD Unavailable Pam Benson MD Unavailable Adithya Campos PIER WORKER Unavailable Johann Hanson CNP Primary Care Provider [phone] Encounter Details Date Type Department Care Team (Late st Contact Info) Description 10/10/2021 5:00 PM EST Hospital Encounter [facility] 12 [place] [address] Natacha Hernandez CNP 12 [place], [place] [phone] Social History Tobacco Use Types Packs/Day Years [...] high school, GED, job training, learning the Puerto Rican language, technical skills, or developing parenting skills)? [...] 12/07/2022 9:18 AM Alise Hamilton RN * [place] Suicide Severity Rating Scale (Screener/Recent Self-Report) Question [...] Care Team (Late st Contact Info) Description 07/22/2025 1:30 PM EDT Office Visit [address] [place] [address] Johann Hanson CNP [address] [place] [address], [address] [place] [address] [email or web address] 07/23/2025 8:00 AM EDT Office Visit [facility] Rheumatology [address] [place] [address] [place] [address] Margaux Montanez MD [address] [place] [address], [address] [place] [address] [email or web address] 09/10/2025 9:00 AM EST Office Visit [facility] [address] [place] [address] Unknown, Unknown, Shreyas Limon MD [address] [place] [address] 2 [place] [address] 09/21/2025 2:30 PM EST Office Visit [facility] Pulmonary, Allergy and Critical Care Medicine [address] [place] [address] [place] [address] Lester Hicks MD [address] [place] [address] 2[address] [place] [address] 10/13/2025 9:20 AM EST Office Visit [facility] [address] [place] [address] [place] [address] Doretha Glynn MD [address] [place] [address] [email or web address] 12/22/2025 8:30 AM EDT Office Visit [address] [place] [address] Johann Hanson, PIER WORKER [address] [place] [address], [address] [place] [address] [email or web address] 06/30/2026 8:00 AM EDT Office Visit [address] [place] [address] Johann Hanson, PIER WORKER [address] [place] [address], [address] [place] [address] [email or web address] documented as of this encounter [...] body heights. Increased anterolisthesis of L4 on J8woigx 2008, likely secondary to facet degenerative changes. Natacha Hernandez PIER WORKER IMG XR SPINE Final Resul t documented [...] Time PHQ-2 Depression Total Score: 0 05/16/20 2:09 PM EDT documented as of this encounter Care Teams Purchasing Director Relationship Specialty Start Date End Date Johann Hanson CNP 22 [facility], [address] [place] [address] [email or web address] PCP - General Family Medicine 02/11/21 Tricia Balderas DO 30 [place] [address] [email or web address] Historical LMR Provider 07/28/17 10/15/21 Lester Hicks MD [address] [place] [address] [email or web address] Historical LMR Provider 07/28/17 Margaux Montanez MD 22 [facility], [address] [place] [address] [email or web address] Historical LMR Provider 07/28/17 Demario Floyd MD [address] [place] [address] [email or web address] Historical LMR Provider 07/28/17 2 Pam Benson MD [address] [place] [address] [email or web address] Historical LMR Provider 07/28/17 Adithya Campos CNP [address] [place] [address] [email or web address] Historical LMR Provider 07/28/17 12/25/21 documented as of this encounter Additional Source Comments The information contained in this document represents components of the legal health record. It is not the complete legal health record.[facility]
--- OUTSIDE RECORDS SUMMARY | 2025-07-08 07:15 | XMS_ITS | Encounter Summary ---
Author Organization [facility] Address [address] [place] [address] Phone Care Team Providers Care Health Equipment Servicer Name Role Phone Lester Hicks MD Unavailable [phone] Margaux Montanez MD Unavailable [phone] Johann Hanson CNP Primary Care Provider [phone] Khang Kilgore MD Unavailable [phone] Neisha Pinto RN Unavailable [email or web address] Shreyas Wilson MD Unavailable Doretha Glynn MD Unavailable [phone] Izzy Hackett Unavailable [email or web address] Radha Pereira RN Unavailable Encounter Details Date Type Department Care Team (Late st Contact Info) Description 06/20/2024 Procedure Pass [facility] Endoscopy Admitting Dept Virtual Department [address] [place], [place] [phone] Social History Tobacco Use Types Packs/Day Years [...] high school, GED, job training, learning the Marshallese language, technical skills, or developing parenting skills)? [...] PM EDT documented as of this encounter Plan of Treatment Upcoming Encounters Date Type Department Care Team (Late st Contact Info) Description 07/22/2025 1:30 PM EDT Office Visit [facility] Family Medicine [address] [place] [address] [place] [address] Johann Hanson, KAIAKO KOHANGA REO [address] [facility], [address] [place] [address] [email or web address] 07/23/2025 8:00 AM EDT Office Visit [facility] Rheumatology [address] [place] [address] Margaux Montanez MD [address] [facility], [address] [place] [address] [email or web address] 09/10/2025 9:00 AM EST Office Visit [facility] Gastroenterology Clinic 10 [place] [address] Unknown, Unknown, Shreyas Limon MD [address] [place] [address] 09/21/2025 2:30 PM EST Office Visit [facility] Pulmonary, Allergy and Critical Care Medicine [address] [place] [address] Lester Hicks MD [address] [place] [address] 10/13/2025 9:20 AM EST Office Visit [facility] Endocrinology [address] [place] [address] [place] [address] Doretha Glynn MD [address] [place] [address] [email or web address] 12/22/2025 8:30 AM EDT Office Visit [address] [place] [address] Johann Hanson CNP [address] [place] [address], [address] [place] [address] [email or web address] 06/30/2026 8:00 AM EDT Office Visit [address] [place] [address] Johann Hanson, KAIAKO KOHANGA REO [address] [place] [address], [address] [place] [address] [email or web address] documented as of this encounter Visit Diagnoses Not on filedocumented in this encounter Additional Health Concerns Assessment Noted Time PHQ-9 Depression Total Score: 4 10/29/19 24 1:54 PM EST PHQ-2 Depression Total Score: 0 06/10/20 24 9:22 AM EDT documented as of this encounter Care Teams Health Equipment Servicer Relationship Specialty Start Date End Date Johann Hanson CNP [address] [place] [address], [address] [place] [address] [email or web address] PCP - General Family Medicine 02/11/21 Lester Hicks MD [address] [place] [address] Historical LMR Provider 07/28/17 Margaux Montanez MD [address] [place] [address], [address] [place] [address] [email or web address] Historical LMR Provider 07/28/17 Khang Kilgore MD [address] [place] [address], [address] [place] [address] [email or web address] Insurance Assigned Provider 01/12/24 Neisha Pinto RN [address] [facility] [place] [address] [email or web address] Lead Caster 02/26/23 06/10/25 Shreyas Wilson MD [address] [place] [address] [email or web address] Gastroenterology 06/17/24 Doretha Glynn MD [address] [place] [address] [address] [place] [address] [email or web address] Endocrinology 06/17/24 Izzy Hackett [address] [place] [address] [email or web address] [facility] Community Staff Physician 09/11/24 09/11/24 Radha Pereira RN [address] [place] [address] [email or web address] [facility] Lead CasterDuplicate Maker 06/11/25 documented as of this encounter Additional Source Comments The information contained in this document represents components of the legal health record. It is not the complete legal health record.[facility]
--- OUTSIDE RECORDS SUMMARY | 2025-07-08 07:15 | XMS_ITS | Encounter Summary ---
Author Organization [facility] Address [address] [place] [address] Phone Care Team Providers Care Fire Support Specialist Name Role Phone Lester Hicks MD Unavailable [phone] Margaux Montanez MD Unavailable [phone] Johann Hanson CNP Primary Care Provider [phone] Khang Kilgore MD Unavailable Luis Ignacio DO Unavailable Flo Esteban MD Unavailable [phone] Neisha Pinto RN Unavailable [email or web address] Shreyas Wilson MD Unavailable Doretha Glynn MD Unavailable [phone] Izzy Hackett Unavailable [email or web address] Radha Pereira RN Unavailable [phone] Encounter Details Date Type Department Care Team (Late st Contact Info) Description 12/08/2022 Procedure Pass [facility] Cardiovascular And Interventional Radiology [address] [place], [place] [id number] Social History Tobacco Use Types Packs/Day Years Used Date Smoking Tobacco: Never Smokeless Tobacco: Never Alcohol Use Standard Drinks/Week Comments No 0 (1 standard drink = 0.6 oz pur e alcohol) Child or Family Care Answer Date Record ed Do you have problems with on e of the following making it difficult for you to work, study, or receive health care? No 12/26/2021 Education Answer Date Recorded Are you interested in help w ith more adult education (for example, completing high school, GED, job training, learning the Italian language, technical skills, or developing parenting skills)? No 12/26/2021 Are you concerned about learning? Not on file 12/26/2021 Not on file 12/26/2021 Not on file 12/26/2021 Food Answer Date Recorded Within the past 6 months we worried whether our food would run out before we got money to buy more. Never True 12/26/2021 Within the past 6 months the food we bought just didn't last and we didn't have enough money to get more. Never True Paying for Meds Answer Date Recorded Do you have trouble paying for medicines? No 12/26/2021 Paying Utility Bills Answer Date Record ed Do you have trouble paying your heating or elect ricity bill? No 12/26/2021 Transportation Answer Date Recorded Has the lack of transportati on kept you from medical appointments or from getting medications? No 12/26/2021 Comments No Sex and Gender Information Value [...] Description 07/22/2025 1:30 PM EDT Office Visit [facility] Family Medicine [address] [place] [address] [place] [address] Johann Hanson, TIFFANIE [address] [facility], [address] [place] [address] [email or web address] 07/23/2025 8:00 AM EDT Office Visit [facility] Rheumatology [address] [place] [address] Margaux Montanez MD [address] [place] [address], [address] [place] [address] [email or web address] 09/10/2025 9:00 AM EST Office Visit [facility] Gastroenterology Clinic 10 [place] [address] Unknown, Unknown, Shreyas Limon MD [address] [address] 09/21/2025 2:30 PM EST Office Visit [facility] Pulmonary, Allergy and Critical Care Medicine 10 [place] [address] Lester Hicks MD [address] [place] [address] [address] [place] [address] 10/13/2025 9:20 AM EST Office Visit [facility] Endocrinology [address] [place] [address] [place] [address] Doretha Glynn MD [address] [place] [address] [address] [place] [address] [email or web address] 12/22/2025 8:30 AM EDT Office Visit [address] [place] [address] Johann Hnason, PLANT ENGINEER [address] [place] [address], [address] [place] [address] [email or web address] 06/30/2026 8:00 AM EDT Office Visit [address] [place] [address] Johann Hanson, PLANT ENGINEER [address] [place] [address], [address] [place] [address] [email or web address] documented as of this encounter Visit Diagnoses Not on filedocumented in this encounter Additional Health Concerns Infection Onset Date Last Indicated Resolved Time COVID-19 10/07/2023 10/07/2023 10/28/2023 1:21 AM EST Assessment Noted Time PHQ-2 Depression Total Score: 0 05/15/20 1:45 PM EDT documented as of this encounter Care Teams Fire Support Specialist Relationship Specialty Start Date End Date Johann Hanson CNP [address] [place] [address], [address] [place] [address] PCP - General Family Medicine 02/11/21 Lester Hicks MD [address] [place] [address] Historical LMR Provider 07/28/17 Margaux Montanez MD [address] [place] [address], [address] [place] [address] [email or web address] Historical LMR Provider 07/28/17 Khang Kilgore MD [address] [place] [address], [address] [place] [address] Insurance Assigned Provider 01/12/24 Luis Ignacio DO [address] [place] [address], [address] [place] [address] Cardiology 06/28/22 06/16/24 Flo Esteban MD [address] [place] [address] [place] [address] [email or web address] Cardiothoracic Surgery 06/28/22 06/16/24 Neisha Pinto, RANDI [address] [place], [place] [address] [place] [address] [email or web address] String Winding Machine Operator 02/26/23 06/10/25 Shreyas Wilson MD [address] [place] [address] Gastroenterology 06/17/24 Doretha Glynn MD [address] [place] [address] Endocrinology 06/17/24 Izzy Hackett [address] [place] [address] [email or web address] [facility] Community Market Director 09/11/24 09/11/24 Radha Pereira RN [address] [place] [address] [facility] String Winding Machine OperatorBoat Wrapper 06/11/25 documented as of this encounter Additional Source Comments The information contained in this document represents components of the legal health record. It is not the complete legal health record.[facility]
--- OUTSIDE RECORDS SUMMARY | 2025-07-08 07:15 | XMS_ITS | Encounter Summary ---
Author Organization [facility] Address [address] [place] [address] Phone Care Team Providers Care Tavern Operator Name Role Phone Lester Hicks MD Unavailable [phone] Margaux Montanez MD Unavailable Johann Hanson CNP Primary Care Provider [phone] Khang Kilgore MD Unavailable Luis Ignacio DO Unavailable Flo Esteban MD Unavailable [phone] Neisha Pinto RN Unavailable [email or web address] Shreyas Wilson MD Unavailable [phone] Doretha Glynn MD Unavailable [phone] Izzy Hackett Unavailable [email or web address] Radha Pereira RN Unavailable Encounter Details Date Type Department Care Team (Late st Contact Info) Description 12/22/2022 Procedure Pass [facility], [address] [id number] Social History Tobacco Use Types Packs/Day Years [...] high school, GED, job training, learning the Vietnamese language, technical skills, or developing parenting skills)? [...] Description 07/22/2025 1:30 PM EDT Office Visit [facility] Family Medicine [address] [place] [address] [place] [address] Johann Hanson, TIFFANIE [address] [facility], [address] [place] [address] [email or web address] 07/23/2025 8:00 AM EDT Office Visit [facility] Rheumatology [address] [place] [address] [place] [address] Margaux Montanez MD [address] [facility], [address] [place] [address] [email or web address] 09/10/2025 9:00 AM EST Office Visit [facility] Gastroenterology Clinic 10 [place] [address] Unknown, [place], Shreyas Limon MD [address] [address] 09/21/2025 2:30 PM EST Office Visit [facility] Pulmonary, Allergy and Critical Care Medicine 10 [facility] [place] [address] Lester Hicks MD [address] [place] [address] [address] [place] [address] 10/13/2025 9:20 AM EST Office Visit [facility] Endocrinology [address] [place] [address] [place] [address] Doretha Glynn MD [address] [place] [address] [address] [place] [address] [email or web address] 12/22/2025 8:30 AM EDT Office Visit [address] [place] [address] Johann Hanson, IMPORT/EXPORT ADMINISTRATOR [address] [place] [address], [address] [place] [address] [email or web address] 06/30/2026 8:00 AM EDT Office Visit [address] [place] [address] Johann Hanson, IMPORT/EXPORT ADMINISTRATOR [address] [place] [address], [address] [place] [address] [email or web address] documented as of this encounter Visit Diagnoses Not on filedocumented in this encounter Additional Health Concerns Infection Onset Date Last Indicated Resolved Time COVID-19 10/07/2023 10/07/2023 10/28/2023 1:21 AM EST Assessment Noted Time PHQ-2 Depression Total Score: 0 01/01/20 23 1:26 PM EDT documented as of this encounter Care Teams Tavern Operator Relationship Specialty Start Date End Date Johann Hanson CNP [address] [place] [address], [address] [place] [address] PCP - General Family Medicine 02/11/21 Lester Hicks MD [address] [place] [address] Historical LMR Provider 07/28/17 Margaux Montanez MD [address] [place] [address], [address] [place] [address] [email or web address] Historical LMR Provider 07/28/17 Khang Kilgore MD [address] [place] [address], [address] [place] [address] Insurance Assigned Provider 01/12/24 Luis Ignacio DO [address] [place] [address], [address] [place] [address] Cardiology 06/28/22 06/16/24 Flo Esteban MD [address] [place] [address] [place] [address] [email or web address] Cardiothoracic Surgery 06/28/22 06/16/24 Neisha Pinto, RANDI [address] [place], [place] [address] [place] [address] [email or web address] Barrel Roller Operator 02/26/23 06/10/25 Shreyas Wilson MD [address] [place] [address] Gastroenterology 06/17/24 Doretha Glynn MD [address] [place] [address] Endocrinology 06/17/24 Izzy Hackett [address] [place] [address] [email or web address] [facility] Community Logistics Analytics Manager 09/11/24 09/11/24 Radha Pereira RN [address] [place] [address] [facility] Barrel Roller OperatorAssembler Metal Furniture 06/11/25 documented as of this encounter Additional Source Comments The information contained in this document represents components of the legal health record. It is not the complete legal health record.[facility]
--- OUTSIDE RECORDS SUMMARY | 2025-07-08 07:15 | XMS_ITS | Clinical Summary ---
Author Organization [facility] Address [address] [place] [address] Care Team Providers Care Coloring Checker Name Role Phone Unavailable Primary Care Provider [...] COVID-19 Vaccine ( - 2023-2 5 season) 2025 RSV Vaccine 60 years and old er and Patients (1 - 1-dose 75+ series) 2037 Hepatitis B Vaccines Aged Out No long er eligible based on patient's age to complete this topic
--- OUTSIDE RECORDS SUMMARY | 2025-07-08 07:15 | XMS_ITS | Encounter Summary ---
Author Organization [facility] Address [address] [place] [address] [place] [address] Phone Care Team Providers Care Educational Program Assistant Name Role Phone Lester Hicks MD Unavailable [phone] Margaux Montanez MD Unavailable [phone] Johann Hanson CNP Primary Care Provider [phone] Khang Kilgore MD Unavailable Luis Ignacio DO Unavailable Flo Esteban MD Unavailable [phone] Dilan Rowland MD Unavailable [phone] Corby Prado MD Unavailable [phone] Neisha Pinto RN Unavailable [email or web address] Shreyas Wilson MD Unavailable Doretha Glynn MD Unavailable [phone] Izzy Hackett Unavailable [email or web address] Radha Pereira RN Unavailable [phone] Encounter Details Date Type Department Care Team (Late st Contact Info) Description 02/28/2022 Procedure Pass [facility], Ct Scan - [address] [id number] Social History Tobacco Use Types Packs/Day Years [...] high school, GED, job training, learning the Cam[place] language, technical skills, or developing parenting skills)? [...] Description 07/22/2025 1:30 PM EDT Office Visit [facility] [place] [facility] [address] [place] [address] Johann Hanson, TIFFANIE 22 [facility], [address] [place] [address] [email or web address] 07/23/2025 8:00 AM EDT Office Visit [facility] Rheumatology [address] [place] [address] Margaux Montanez MD [address] [place] [address], [address] [place] [address] [email or web address] 09/10/2025 9:00 AM EST Office Visit [facility] Gastroenterology Clinic 10 [place] [address] Unknown, Unknown, Shreyas Limon MD [address] [address] 09/21/2025 2:30 PM EST Office Visit [facility] Pulmonary, Allergy and Critical Care Medicine 10 [facility] [place] [address] Lester Hicks MD [address] [place] [address] 2nd [place] [address] 10/13/2025 9:20 AM EST Office Visit [facility] Endocrinology [address] [place] [address] Doretha Glynn MD [address] [place] [address] 3rd [place] [address] [email or web address] 12/22/2025 8:30 AM EDT Office Visit [address] [place] [address] Johann Hanson, TIFFANIE [address] [place] [address], [address] [place] [address] [email or web address] 06/30/2026 8:00 AM EDT Office Visit [address] [place] [address] Johann Hanson CNP 22 [facility], [address] [place] [address] [email or web address] documented as of this encounter Visit Diagnoses Not on filedocumented in this encounter Additional Health Concerns Infection Onset Date Last Indicated Resolved Time CoV-Presumed 05/27/2022 05/27/2022 06/17/2022 1:21 AM EDT CoV-Presumed Comment:COVID-19 Added 10/12/2022 10/12/2022 10/13/2022 6:26 P M EST COVID-19 10/13/2022 10/13/2022 11/03/2022 1:21 AM EST COVID-19 10/07/2023 10/07/2023 10/28/2023 1:21 AM EST Assessment Noted Time PHQ-2 Depression Total Score: 2 02/25/20 11:48 AM EDT documented as of this encounter Care Teams Educational Program Assistant Relationship Specialty Start Date End Date Johann Hanson CNP [address] [place] [address], [address] [place] [address] [email or web address] PCP - General Family Medicine 02/11/21 Lester Hicks MD [address] [place] [address] [email or web address] Historical LMR Provider 07/28/17 Margaux Montanez MD [address] [place] [address], [address] [place] [address] [email or web address] Historical LMR Provider 07/28/17 Khang Kilgore MD [address] [place] [address], [address] [place] [address] Insurance Assigned Provider 4/6/24 Luis Ignacio DO [address] [place] [address], [address] [place] [address] Cardiology 06/28/22 06/16/24 Flo Esteban MD [address] [place] [address] [place] [address] [email or web address] Cardiothoracic Surgery 06/28/22 06/16/24 Dilan Rowland MD [address] [place] [address], [address] [place] [address] [email or web address] Insurance Assigned Provider 07/15/22 08/13/22 Corby Prado MD [address] [place] [address], [address] [place] [address] [email or web address] Insurance Assigned Provider 08/13/22 09/16/22 Neisha Pinto RN [address] [place] [address], [address] [place] [address] [email or web address] 02/26/23 06/10/25 Shreyas Wilson MD [address] [place] [address] [email or web address] Gastroenterology 06/17/24 Doretha Glynn MD [address] [place] [address] 3[address] [place] [address] Endocrinology 06/17/24 Izzy Hackett [address] [place] [address] [email or web address] [facility] Community Printing Plate Clerk 09/11/24 09/11/24 Radha Pereira, RN [address] [place] [address] [email or web address] [facility] Roll CovererManager Of Corporate 06/11/25 documented as of this encounter Additional Source Comments The information contained in this document represents components of the legal health record. It is not the complete legal health record.[facility]
--- OUTSIDE RECORDS SUMMARY | 2025-07-08 07:15 | XMS_ITS | Encounter Summary ---
Author Organization [facility] Address [address] [place] [address] Phone Care Team Providers Care Ccnp Name Role Phone Lester Hicks MD Unavailable [phone] Margaux Montanez MD Unavailable Johann Hanson CNP Primary Care Provider [phone] Khang Kilgore MD Unavailable [phone] Luis Ignacio DO Unavailable Flo Esteban MD Unavailable [phone] Neisha Pinto RN Unavailable [email or web address] Shreyas Wilson MD Unavailable Doretha Glynn MD Unavailable [phone] Izzy Hackett Unavailable [email or web address] Radha Pereira RN Unavailable Encounter Details Date Type Department Care Team (Late st Contact Info) Description 12/08/2022 Procedure Pass [facility] Cardiovascular And Interventional Radiology 30 [place], [place] [id number] Social History Tobacco Use Types Packs/Day Years [...] Description 07/22/2025 1:30 PM EDT Office Visit [facility] Family Medicine [address] [place] [address] [place] [address] Johann Hanson, TIFFANIE 22 [facility], [address] [place] [address] [email or web address] 07/23/2025 8:00 AM EDT Office Visit [facility] Rheumatology [address] [place] [address] Margaux Montanez MD [address] [place] [address], [address] [place] [address] [email or web address] 09/10/2025 9:00 AM EST Office Visit [facility] Gastroenterology Clinic 10 [place] [address] Unknown, Unknown, Shreyas Limon MD [address] [address] 09/21/2025 2:30 PM EST Office Visit [facility] Pulmonary, Allergy and Critical Care Medicine 10 [place] [address] Lester Hicks MD [address] [place] [address] 2nd [place] [address] 10/13/2025 9:20 AM EST Office Visit [facility] [address] [place] [address] [place] [address] Doretha Glynn MD [address] [place] [address] 3rd [place] [address] [email or web address] 12/22/2025 8:30 AM EDT Office Visit [address] [place] [address] Johann Hanson, CONSTRUCTION COORDINATOR [address] [place] [address], [address] [place] [address] [email or web address] 06/30/2026 8:00 AM EDT Office Visit [address] [place] [address] Johann Hanson, CONSTRUCTION COORDINATOR [address] [place] [address], [address] [place] [address] [email or web address] documented as of this encounter Visit Diagnoses Not on filedocumented in this encounter Additional Health Concerns Infection Onset Date Last Indicated Resolved Time COVID-19 10/07/2023 10/07/2023 10/28/2023 1:21 AM EST Assessment Noted Time PHQ-2 Depression Total Score: 0 05/15/20 1:45 PM EDT documented as of this encounter Care Teams Ccnp Relationship Specialty Start Date End Date Johann Hanson CNP [address] [place] [address], [address] [place] [address] PCP - General Family Medicine 02/11/21 Lester Hicks MD [address] [place] [address] Historical LMR Provider 07/28/17 Margaux Montanez MD [address] [place] [address], [address] [place] [address] [email or web address] Historical LMR Provider 07/28/17 Khang Kilgore MD [address] [place] [address], [address] [place] [address] Insurance Assigned Provider 01/12/24 Luis Ignacio DO [address] [place] [address], [address] [place] [address] Cardiology 06/28/22 06/16/24 Flo Esteban MD [address] [place] [address] [place] [address] [email or web address] Cardiothoracic Surgery 06/28/22 06/16/24 Neisha Pinto, RANDI [address] [place], [place] [address]D[address] [place] [address] [email or web address] iCMP News Editor 02/26/23 06/10/25 Shreyas Wilson MD [address] [place] [address] Gastroenterology 06/17/24 Doretha Glynn MD [address] [place] [address] Endocrinology 06/17/24 Izzy Hackett [address] [place] [address] [email or web address] [facility] Community Gunner'S Mate M 09/11/24 09/11/24 Radha Pereira RN [address] [place] [address] [facility] News EditorBpm Solution Architect 06/11/25 documented as of this encounter Additional Source Comments The information contained in this document represents components of the legal health record. It is not the complete legal health record.[facility]
--- OUTSIDE RECORDS SUMMARY | 2025-07-08 07:15 | XMS_ITS | Encounter Summary ---
Author Organization [facility] Address [address] [facility] [address] [place] [address] Phone Care Team Providers Care Urban Planner Name Role Phone Lester Hicks MD Unavailable [phone] Margaux Montanez MD Unavailable Johann Hanson LOBBYIST Primary Care Provider [phone] Khang Kilgore MD Unavailable Luis Ignacio DO Unavailable Flo Esteban MD Unavailable [phone] Neisha Pinto RN Unavailable [email or web address] Shreyas Wilson MD Unavailable Doretha Glynn MD Unavailable [phone] Izzy Hackett Unavailable [email or web address] Radha Pereira RN Unavailable [phone] Encounter Details Date Type Department Care Team (Latest Contact Info) Description 12/22/2022 Transcribe Orders Virtual Department 30 [place] [address] Johann Hanson, LOBBYIST [address] [facility], [address] [place], [place] [id number] [email or web address] Breast screening (Primary Dx) Social History Tobacco Use Types Packs/Day Years [...] high school, GED, job training, learning the [place] Citizen language, technical skills, or developing parenting skills)? [...] EDT Office Visit [facility] [place] [facility] [address] [place] [address] [place] [address] Johann Hanson, TIFFANIE 22 [facility], [address] [place] [address] [email or web address] 07/23/2025 8:00 AM EDT Office Visit [facility] Rheumatology [address] [place] [address] [place] [address] Margaux Montanez MD [address] [place] [address], [address] [place] [address] [email or web address] 09/10/2025 9:00 AM EST Office Visit [facility] Gastroenterology Clinic 10 [place] [address] Unknown, [place], Shreyas Limon MD [address] [place] [address] 09/21/2025 2:30 PM EST Office Visit [facility] Pulmonary, Allergy and Critical Care Medicine 10 [facility] [place] [address] Lester Hicks MD [address] [place] [address] 10/13/2025 9:20 AM EST Office Visit [facility] [address] [place] [address] [place] [address] Doretha Glynn MD [address] [place] [address] 3rd [place] [address] [email or web address] 12/22/2025 8:30 AM EDT Office Visit [address] [place] [address] Johann Hanson, TIFFANIE [address] [place] [address], [address] [place] [address] [email or web address] 06/30/2026 8:00 AM EDT Office Visit [address] [place] [address] Valentin Johann, LOBBYIST [address] [facility], [address] [place] [address] [email or web address] documented as of this encounter Results * BI MAMMOGRAM SCREENING WITH TOMOSYNTHESIS WITH [...] DATE: 12 Months Recommendation: Left Mammography Screening Johann Hanson CNP IMG MG EXAMS Final Res ult documented in this encounter Visit Diagnoses Diagnosis Breast screening- Primary Breast screening, unspecified Breast screening Breast screening, unspecified documented in this encounter Additional Health Concerns Infection Onset Date Last Indicated Resolved Time COVID-19 10/07/2023 10/07/2023 10/28/2023 1:21 AM EST Assessment Noted Time PHQ-2 Depression Total Score: 0 05/15/20 22 1:45 PM EDT documented as of this encounter Care Teams Urban Planner Relationship Specialty Start Date End Date Johann Hanson CNP [address] [place] [address], [address] [place] [address] [email or web address] PCP - General Family Medicine 02/11/21 Lester Hicks MD [address] [place] [address] [email or web address] Historical LMR Provider 07/28/17 Margaux Montanez MD [address] [place] [address], [address] [place] [address] [email or web address] Historical LMR Provider 07/28/17 Khang Kilgore MD [address] [place] [address], [address] [place] [address] Insurance Assigned Provider 01/12/24 Luis Ignacio DO [address] [place] [address], [address] [place] [address] Cardiology 06/28/22 06/16/24 Flo Esteban MD [address] [place] [address] [email or web address] Cardiothoracic Surgery 06/28/22 06/16/24 Neisha Pinto RN [address] [place] [address] [email or web address] Edi Programmer Analyst 02/26/23 06/10/25 Shreyas Wilson MD [address] [place] [address] Gastroenterology 06/17/24 Doretha Glynn MD [address] [place] [address] 3rd [place] [address] Endocrinology 06/17/24 Izzy Hackett [address] [place] [address] [email or web address] [facility] Community Bricklayer 09/11/24 09/11/24 Radha Pereira RN [address] [place] [address] iCMP Edi Programmer AnalystAtomic Spectroscopist 06/11/25 documented as of this encounter Additional Source Comments The information contained in this document represents components of the legal health record. It is not the complete legal health record.[facility]
--- OUTSIDE RECORDS SUMMARY | 2025-07-08 07:15 | XMS_ITS | Encounter Summary ---
Author Organization [facility] Address [address] [place] [address] [place] [address] Phone Care Team Providers Care Carbon Sequestration Plant Engineer Name Role Phone Lester Hicks MD Unavailable [phone] Margaux Montanez MD Unavailable Johann Hanson CNP Primary Care Provider [phone] Khang Kilgore MD Unavailable Neisha Pinto RN Unavailable [email or web address] Shreyas Wilson MD Unavailable [phone] Doretha Glynn MD Unavailable [phone] Radha Pereira RN Unavailable [phone] Encounter Details Date Type Department Care Team (Late st Contact Info) Description 01/13/2025 Procedure Pass [facility] L2 PRU 75 [place] [address] Social History Tobacco Use Types Packs/Day Years [...] high school, GED, job training, learning the [place] language, technical skills, or developing parenting skills)? [...] Description 07/22/2025 1:30 PM EDT Office Visit [facility] Medicine [address] [place] [address] [place] [address] Johann Hanson, TIFFANIE 22 [facility], [address] [place] [address] [email or web address] 07/23/2025 8:00 AM EDT Office Visit [facility] Rheumatology [address] [place] [address] Margaux Montanez MD [address] [place] [address], [address] [place] [address] [email or web address] 09/10/2025 9:00 AM EST Office Visit [facility] Gastroenterology Clinic 10 [place] [address] Unknown, Unknown, Shreyas Limon MD [address] [place] [address] 09/21/2025 2:30 PM EST Office Visit [facility] Pulmonary, Allergy and Critical Care Medicine 10 [place] [address] Lester Hicks MD [address] [place] [address] 10/13/2025 9:20 AM EST Office Visit [facility] [address] [place] [address] [place] [address] Doretha Glynn MD [address] [place] [address] [email or web address] 12/22/2025 8:30 AM EDT Office Visit [address] [place] [address] Johann Hanson CNP [address] [place] [address], [address] [place] [address] [email or web address] 06/30/2026 8:00 AM EDT Office Visit [address] [place] [address] Johann Hanson CNP [address] [place] [address], [address] [place] [address] [email or web address] documented as of this encounter Visit Diagnoses Not on filedocumented in this encounter Additional Health Concerns Assessment Noted Time PHQ-9 Depression Total Score: 4 10/29/19 24 1:54 PM EST PHQ-2 Depression Total Score: 0 06/10/20 24 9:22 AM EDT documented as of this encounter Care Teams Carbon Sequestration Plant Engineer Relationship Specialty Start Date End Date Johann Hanson CNP [address] [place] [address], [address] [place] [address] PCP - General Family Medicine 02/11/21 Lester Hicks MD [address] [place] [address] Historical LMR Provider 07/28/17 Margaux Montanez MD [address] [place] [address], [address] [place] [address] Historical LMR Provider 07/28/17 Khang Kilgore MD 22 [facility], [address] [place] [address] [email or web address] Insurance Assigned Provider 01/12/24 Neisha Pinto, RANDI [address] [facility], [address] [place] [address] [email or web address] Supervisor Carbon Electrodes 02/26/23 06/10/25 Shreyas Wilson MD [address] [place] [address] [email or web address] Gastroenterology 06/17/24 Doretha Glynn MD [address] [place] [address] 3rd [place] [address] [email or web address] Endocrinology 06/17/24 Radha Pereira, RANDI [address] [place] [address] [email or web address] iCMP Supervisor Carbon ElectrodesBoot Turner 06/11/25 documented as of this encounter Additional Source Comments The information contained in this document represents components of the legal health record. It is not the complete legal health record.[facility]
--- OUTSIDE RECORDS SUMMARY | 2025-07-08 07:15 | XMS_ITS | Encounter Summary ---
Author Organization [facility] Address [address] [place] [address] Phone Care Team Providers Care Professor Of Pathology Name Role Phone Lester Hicks MD Unavailable [phone] Margaux Montanez MD Unavailable Johann Hanson CNP Primary Care Provider [phone] Khang Kilgore MD Unavailable Luis Ignacio DO Unavailable Flo Esteban MD Unavailable [phone] Neisha Pinto RN Unavailable [email or web address] Shreyas Wilson MD Unavailable Doretha Glynn MD Unavailable [phone] Izzy Hackett Unavailable [email or web address] Radha Pereira RN Unavailable [phone] Encounter Details Date Type Department Care Team (Late st Contact Info) Description 12/11/2022 Procedure Pass [facility] Cardiovascular And Interventional Radiology 30 [place], [place] [id number] Social History Tobacco Use Types Packs/Day Years [...] GED, job training, learning the Citizen [place] language, technical skills, or developing parenting skills)? [...] Description 07/22/2025 1:30 PM EDT Office Visit [facility] Family Medicine [address] [place] [address] [place] [address] Johann Hanson, TIFFANIE 22 [facility], [address] [place] [address] [email or web address] 07/23/2025 8:00 AM EDT Office Visit [facility] Rheumatology [address] [place] [address] Margaux Montanez MD [address] [place] [address], [address] [place] [address] [email or web address] 09/10/2025 9:00 AM EST Office Visit [facility] Gastroenterology Clinic 10 [place] [address] Unknown, Unknown, Shreyas Limon MD [address] [address] 09/21/2025 2:30 PM EST Office Visit [facility] Pulmonary, Allergy and Critical Care Medicine 10 [place] [address] Lester Hicks MD [address] [place] [address] 2nd [place] [address] 10/13/2025 9:20 AM EST Office Visit [facility] [address] [place] [address] [place] [address] Doretha Glynn MD [address] [place] [address] 3rd [place] [address] [email or web address] 12/22/2025 8:30 AM EDT Office Visit [address] [place] [address] Johann Hanson, COVERING MACHINE OPERATOR HELPER [address] [place] [address], [address] [place] [address] [email or web address] 06/30/2026 8:00 AM EDT Office Visit [address] [place] [address] Johann Hanson, COVERING MACHINE OPERATOR HELPER [address] [place] [address], [address] [place] [address] [email or web address] documented as of this encounter Visit Diagnoses Not on filedocumented in this encounter Additional Health Concerns Infection Onset Date Last Indicated Resolved Time COVID-19 10/07/2023 10/07/2023 10/28/2023 1:21 AM EST Assessment Noted Time PHQ-2 Depression Total Score: 0 05/15/20 1:45 PM EDT documented as of this encounter Care Teams Professor Of Pathology Relationship Specialty Start Date End Date Johann Hanson CNP [address] [place] [address], [address] [place] [address] PCP - General Family Medicine 02/11/21 Lester Hicks MD [address] [place] [address] Historical LMR Provider 07/28/17 Margaux Montanez MD [address] [place] [address], [address] [place] [address] [email or web address] Historical LMR Provider 07/28/17 Khang Kilgore MD [address] [place] [address], [address] [place] [address] Insurance Assigned Provider 01/12/24 Luis Ignacio DO [address] [place] [address], [address] [place] [address] Cardiology 06/28/22 06/16/24 Flo Esteban MD [address] [place] [address] [place] [address] [email or web address] Cardiothoracic Surgery 06/28/22 06/16/24 Neisha Pinto, RANDI [address] [place], [place] [address] [place] [address] [email or web address] iCMP Bank Advisor 02/26/23 06/10/25 Shreyas Wilson MD [address] [place] [address] Gastroenterology 06/17/24 Doretha Glynn MD [address] [place] [address] Endocrinology 06/17/24 Izzy Hackett [address] [place] [address] [email or web address] [facility] Community Javascript Ui Developer 09/11/24 09/11/24 Radha Pereira RN [address] [place] [address] [facility] Bank AdvisorOrthodontic Laboratory Technician 06/11/25 documented as of this encounter Additional Source Comments The information contained in this document represents components of the legal health record. It is not the complete legal health record.[facility]
--- OUTSIDE RECORDS SUMMARY | 2025-07-08 07:16 | XMS_ITS | Encounter Summary ---
Author Organization [facility] Address [address] [place] [address] Phone Care Team Providers Care Geometrician Name Role Phone Lester Hicks MD Unavailable [phone] Margaux Montanez MD Unavailable Johann Hanson CNP Primary Care Provider [phone] Khang Kilgore MD Unavailable [phone] Luis Ignacio DO Unavailable [phone] Flo Esteban MD Unavailable [phone] Neisha Pinto RN Unavailable [email or web address] Shreyas Wilson MD Unavailable Doretha Glynn MD Unavailable [phone] Izzy Hackett Unavailable [email or web address] Radha Pereira RN Unavailable [phone] Encounter Details Date Type Department Care Team (Late st Contact Info) Description 12/13/2022 Procedure Pass [facility] Cardiovascular And Interventional Radiology [address] [place], [place] [id number] Social History Tobacco Use Types Packs/Day Years [...] high school, GED, job training, learning the [place] language, technical skills, or developing parenting skills)? [...] Description 07/22/2025 1:30 PM EDT Office Visit [facility] Family Medicine [address] [place] [address] [place] [address] Johann Hanson, TIFFANIE [address] [facility], [address] [place] [address] [email or web address] 07/23/2025 8:00 AM EDT Office Visit [facility] Rheumatology [address] [place] [address] Margaux Montanez MD [address] [place] [address], [address] [place] [address] [email or web address] 09/10/2025 9:00 AM EST Office Visit [facility] Gastroenterology Clinic 10 [place] [address] Unknown, Unknown, Shreyas Limon MD [address] [address] 09/21/2025 2:30 PM EST Office Visit [facility] Pulmonary, Allergy and Critical Care Medicine 10 [place] [address] Lester Hicks MD [address] [place] [address] 2[address] [place] [address] 10/13/2025 9:20 AM EST Office Visit [facility] [address] [place] [address] [place] [address] Doretha Glynn MD [address] [place] [address] 3[address] [place] [address] [email or web address] 12/22/2025 8:30 AM EDT Office Visit [address] [place] [address] Johann Hanson, DIRECTOR OF MARKETING ANALYTICS [address] [place] [address], [address] [place] [address] [email or web address] 06/30/2026 8:00 AM EDT Office Visit [address] [place] [address] Johann Hanson, DIRECTOR OF MARKETING ANALYTICS [address] [place] [address], [address] [place] [address] [email or web address] documented as of this encounter Visit Diagnoses Not on filedocumented in this encounter Additional Health Concerns Infection Onset Date Last Indicated Resolved Time COVID-19 10/07/2023 10/07/2023 10/28/2023 1:21 AM EST Assessment Noted Time PHQ-2 Depression Total Score: 0 05/15/20 1:45 PM EDT documented as of this encounter Care Teams Geometrician Relationship Specialty Start Date End Date Johann Hanson CNP [address] [place] [address], [address] [place] [address] PCP - General Family Medicine 02/11/21 Lester Hicks MD [address] [place] [address] Historical LMR Provider 07/28/17 Margaux Montanez MD [address] [place] [address], [address] [place] [address] [email or web address] Historical LMR Provider 07/28/17 Khang Kilgore MD [address] [place] [address], [address] [place] [address] Insurance Assigned Provider 01/12/24 Luis Ignacio DO [address] [place] [address], [address] [place] [address] Cardiology 06/28/22 06/16/24 Flo Esteban MD [address] [place] [address] [place] [address] [email or web address] Cardiothoracic Surgery 06/28/22 06/16/24 Neisha Pinto, RANDI [address] [place], [place] [address]D[address] [place] [address] [email or web address] Night Coordinator 02/26/23 06/10/25 Shreyas Wilson MD [address] [place] [address] Gastroenterology 06/17/24 Doretha Glynn MD [address] [place] [address] Endocrinology 06/17/24 Izzy Hackett [address] [place] [address] [email or web address] [facility] 09/11/24 09/11/24 Radha Pereira RN [address] [place] [address] [facility] Night CoordinatorConcrete Polisher 06/11/25 documented as of this encounter Additional Source Comments The information contained in this document represents components of the legal health record. It is not the complete legal health record.[facility]
--- OUTSIDE RECORDS SUMMARY | 2025-07-08 07:16 | XMS_ITS | Encounter Summary ---
Author Organization [facility] Address [address] [place] [address] [place] [address] Phone Care Team Providers Care Forest Pathologist Name Role Phone Lester Hicks MD Unavailable [phone] Margaux Montanez MD Unavailable Johann Hanson CNP Primary Care Provider [phone] Khang Kilgore MD Unavailable Luis Ignacio DO Unavailable Flo Esteban MD Unavailable [phone] Dilan Rowland MD Unavailable [phone] Corby Prado MD Unavailable [phone] Neisha Pinto RN Unavailable [email or web address] Shreyas Wilson MD Unavailable [phone] Doretha Glynn MD Unavailable [phone] Izzy Hackett Unavailable [email or web address] Radha Pereira RN Unavailable Encounter Details Date Type Department Care Team (Late st Contact Info) Description 02/10/2022 Procedure Pass Non-Invasive Cardiology [address] [place], [place] [id number] Social History Tobacco Use Types Packs/Day Years [...] high school, GED, job training, learning the Cuban language, technical skills, or developing parenting skills)? [...] 4:54 PM EDT Sexual Orientation Straight 06/26/2019 4 :54 PM EDT documented as of this encounter Plan of Treatment Upcoming Encounters Date Type Department Care Team (Late st Contact Info) Description 07/22/2025 1:30 PM EDT Office Visit [facility] [place] [facility] [address] [place] [address] [place] [address] Johann Hanson CNP 22 [facility], [address] [place] [address] [email or web address] 07/23/2025 8:00 AM EDT Office Visit [facility] Rheumatology [address] [place] [address] Margaux Montanez MD [address] [place] [address], [address] [place] [address] [email or web address] 09/10/2025 9:00 AM EST Office Visit [facility] Gastroenterology Clinic 10 [place] [address] Unknown, [place], Shreyas Limon MD [address] [address] 09/21/2025 2:30 PM EST Office Visit [facility] Pulmonary, Allergy and Critical Care Medicine 10 [facility] [place] [address] Lester Hicks MD [address] [place] [address] 10/13/2025 9:20 AM EST Office Visit [facility] [address] [place] [address] Doretha Glynn MD [address] [place] [address] 3[address] [place] [address] [email or web address] 12/22/2025 8:30 AM EDT Office Visit [address] [place] [address] Johann Hanson, ACCOUNTING RECONCILIATION CLERK [address] [place] [address], [address] [place] [address] [email or web address] 06/30/2026 8:00 AM EDT Office Visit [address] [place] [address] Johann Hanson, ACCOUNTING RECONCILIATION CLERK [address] [place] [address], [address] [place] [address] [email or web address] documented as of this encounter Visit Diagnoses Not on filedocumented in this encounter Additional Health Concerns Infection Onset Date Last Indicated Resolved Time CoV-Presumed 05/27/2022 05/27/2022 06/17/2022 1:21 AM EDT CoV-Presumed Comment:COVID-19 Added 10/12/2022 10/12/2022 10/13/2022 6:26 P M EST COVID-19 10/13/2022 10/13/2022 11/03/2022 1:21 AM EST COVID-19 10/07/2023 10/07/2023 10/28/2023 1:21 AM EST Assessment Noted Time PHQ-2 Depression Total Score: 2 02/04/20 22 11:10 AM EDT documented as of this encounter Care Teams Forest Pathologist Relationship Specialty Start Date End Date Johann Hanson CNP [address] [place] [address], [address] [place] [address] [email or web address] PCP - General Family Medicine 02/11/21 Lester Hicks MD [address] [place] [address] [email or web address] Historical LMR Provider 07/28/17 Margaux Montanez MD [address] [place] [address], [address] [place] [address] [email or web address] Historical LMR Provider 07/28/17 Khang Kilgore MD [address] [place] [address], [address] [place] [address] Insurance Assigned Provider 01/12/24 Luis Ignacio DO [address] [place] [address], [address] [place] [address] Cardiology 06/28/22 06/16/24 Flo Esteban MD [address] [place] [address] [place] [address] [email or web address] Cardiothoracic Surgery 06/28/22 06/16/24 Dilan Rowland MD [address] [place] [address], [address] [place] [address] Insurance Assigned Provider 07/15/22 08/13/22 Corby Prado MD [address] [place] [address], [address] [place] [address] [email or web address] Insurance Assigned Provider 08/13/22 09/16/22 Neisha Pinto RN [address] [place] [address], [address] [place] [address] [email or web address] Pool Supervisor 02/26/23 06/10/25 Shreyas Wilson MD [address] [place] [address] Gastroenterology 06/17/24 Doretha Glynn MD [address] [place] [address] 3rd [place] [address] Endocrinology 06/17/24 Izzy Hackett [address] [place] [address] [email or web address] [email or web address] Community Feeder Catcher Tobacco 09/11/24 09/11/24 Radha Pereira, RN [address] [place] [address] [email or web address] [facility] Typing Pool SupervisorSeaming Machine Operator 06/11/25 documented as of this encounter Additional Source Comments The information contained in this document represents components of the legal health record. It is not the complete legal health record.[facility]
--- OUTSIDE RECORDS SUMMARY | 2025-07-08 07:16 | XMS_ITS | Encounter Summary ---
Author Organization [facility] Address [address] [place] [address] [place] [address] Phone Care Team Providers Care Landfill Gas Plant Field Technician Name Role Phone Tricia Balderas DO Unavailable Lester Hicks MD Unavailable [phone] Margaux Montanez MD Unavailable Demario Floyd MD Unavailable Pam Benson MD Unavailable [phone] Adithya Campos SCREEDMAN Unavailable Beatriz Donaldson [employer]REGLASS GUN [employer] Unavailable Beatriz Donaldson [employer] Primary Care Provider Mamta Whitney DO Primary Care Provider [phone] Mamta Whitney DO Primary Care Provider [phone] Johann Hanson SCREEDMAN Primary Care Provider [phone] Khang Kilgore MD Unavailable Luis Ignacio DO Unavailable Flo Esteban MD Unavailable [phone] Dilan Rwoland MD Unavailable [phone] Corby Prado MD Unavailable [phone] Neisha Pinto RN Unavailable [email or web address] Shreyas Wilson MD Unavailable Doretha Glynn MD Unavailable [phone] Izzy Hackett Unavailable sami Radha Pereira RN Unavailable Encounter Details Date Type Department Care Team (Late st Contact Info) Description 05/20/2018 Ancillary Orders Virtual Department [address] [place] [address] Beatriz Donaldson, FIBREGLASS GUN HAND [address] [place] [address] Lymphadenopathy; Generalized enlarged lymph nodes Social History Tobacco Use Types Packs/Day Years Used Date Smoking Tobacco: Never Smokeless Tobacco: Never Alcohol Use Standard Drinks/Week Comments No 0 (1 standard drink = 0.6 oz pur e alcohol) Comments Unknown Sex and Gender Information Value Date Recorded Sex Assigned at Female 06/26/2019 4:54 PM EDT Legal Sex Female 5:30 PM EST Gender Identity Female 06/26/2019 4:54 PM EDT Sexual Orientation Straight 06/26/2019 4: 54 PM EDT documented as of this encounter Plan of Treatment Upcoming Encounters Date Type Department Care Team (Late Contact Info) Description 07/22/2025 1:30 PM EDT Office Visit [facility] Family Medicine [address] [place] [address] [place] [address] Johann Hanson CNP [address] [place] [address], [address] [place] [address] [email or web address] 07/23/2025 8:00 AM EDT Office Visit [facility] Rheumatology [address] [place] [address] [place] [address] Margaux Montanez MD [address] [place] [address], [address] [place] [address] [email or web address] 09/10/2025 9:00 AM EST Office Visit [facility] Gastroenterology Clinic 10 [place] [address] Unknown, Unknown, Shreyas Limon MD [address] [address] 09/21/2025 2:30 PM EST Office Visit [facility] Pulmonary, Allergy and Critical Care Medicine 10 [facility] [place] [address] Lester Hicks MD [address] [place] [address] 10/13/2025 9:20 AM EST Office Visit [facility] [address] [place] [address] Doretha Glynn MD [address] [place] [address] [email or web address] 12/22/2025 8:30 AM EDT Office Visit [address] [place] [address] Johann Hanson, SCREEDMAN [address] [place] [address], [address] [place] [address] [email or web address] 06/30/2026 8:00 AM EDT Office Visit [address] [place] [address] Johann Hanson, SCREEDMAN [address] [place] [address], [address] [place] [address] [email or web address] documented as of this encounter Visit Diagnoses Diagnosis Lymphadenopathy Enlargement of lymph nodes Generalized enlarged lymph nodes Enlargement of lymph nodes documented in this encounter Additional Health Concerns Infection Onset Date Last Indicated Resolved Time CoV-Presumed 05/27/2022 05/27/2022 06/17/2022 1:21 AM EDT CoV-Presumed Comment:COVID-19 Added 10/12/2022 10/12/2022 10/13/2022 6:26 P M EST COVID-19 10/13/2022 10/13/2022 11/03/2022 1:21 AM EST COVID-19 10/07/2023 10/07/2023 10/28/2023 1:21 AM EST documented as of this encounter Care Teams Landfill Gas Plant Field Technician Relationship Specialty Start Date End Date Beatriz Donaldson NP [address] [place] [address] PCP - General Family Medicine 10/04/17 04/11/20 Mamta Whitney DO [address] [place] [address] [email or web address] PCP - General Family Medicine 04/12/20 02/08/21 Mamta Whitney DO [address] [place] [address] [email or web address] PCP - General Family Medicine 02/10/21 02/10/21 Johann Hanson CNP 22 [facility] [place] [address] [email or web address] PCP - General Family Medicine 02/11/21 Tricia Balderas DO [address] [place] [address] [email or web address] Historical LMR Provider 07/28/17 10/15/21 Lester Hicks MD [address] [place] [address] [email or web address] Historical LMR Provider 07/28/17 Margaux Montanez MD [address] [place] [address], [address] [place] [address] [email or web address] Historical LMR Provider 07/28/17 Demario Floyd MD [address] [place] [address] [email or web address] Historical LMR Provider 07/28/17 10/15/21 Pam Benson MD [address] [place] [address] [email or web address] Historical LMR Provider 07/28/17 10/15/21 Adithya Campos, SCREEDMAN [address] [place] [address] [email or web address] Historical LMR Provider 07/28/17 12/25/21 Beatriz Donaldson, FIBREGLASS GUN HAND [address] [place] [address] Historical LMR Provider 07/28/17 04/11/20 Khang Kilgore MD [address] [place] [address] [address] [place] [address] [email or web address] Insurance Assigned Provider 01/12/24 Luis Ignacio DO [address] [place] [address], [address] [place] [address] Cardiology 06/28/22 06/16/24 Flo Esteban MD [address] [place] [address] [place] [address] [email or web address] Cardiothoracic Surgery 06/28/22 06/16/24 Dilan Rowland MD [address] [place] [address], [address] [place] [address] [email or web address] Insurance Assigned Provider 07/15/22 08/13/22 Corby Prado MD [address] [place] [address], [address] [place] [address] Insurance Assigned Provider 08/13/22 09/16/22 Neisha Pinto RN [address] [place] [address], [address] [place] [address] [email or web address] Rn 02/26/23 06/10/25 Shreyas Wilson MD [address] [place] [address] [email or web address] Gastroenterology 06/17/24 Doretha Glynn MD [address] [place] [address] 3[address] [place] [address] [email or web address] Endocrinology 06/17/24 Izzy Hackett [address] [place] [address] [email or web address] [facility] Community Load Out Supervisor 09/11/24 09/11/24 Radha Pereira RN [address] [place] [phone] [email or web address] iCMP Um RnRn Occupational 06/11/25 documented as of this encounter Additional Source Comments The information contained in this document represents components of the legal health record. It is not the complete legal health record.[facility]
--- OUTSIDE RECORDS SUMMARY | 2025-07-08 07:16 | XMS_ITS | Encounter Summary ---
Author Organization [facility] Address [address] [place] [address] [place] [address] Phone Care Team Providers Care Branch Office Administrator Name Role Phone Tricia Balderas DO Unavailable Lester Hicks MD Unavailable Margaux Montanez MD Unavailable Demario Floyd MD Unavailable Pam Benson MD Unavailable [phone] Adithya Campos INDUSTRIAL BOILERMAKER Unavailable Beatriz Donaldson TECHNICAL OPERATIONS MANAGER Unavailable Beatriz Donaldson TECHNICAL OPERATIONS MANAGER Primary Care Provider Mamta Whitney DO Primary Care Provider [phone] Mamta Whitney DO Primary Care Provider [phone] Johann Hanson INDUSTRIAL BOILERMAKER Primary Care Provider [phone] Khang Kilgore MD Unavailable Luis Ignacio DO Unavailable Flo Esteban MD Unavailable [phone] Dilan Rowland MD Unavailable [phone] Corby Prado MD Unavailable Neisha Pinto RN Unavailable [email or web address] Shreyas Wilson MD Unavailable Doretha Glynn MD Unavailable [phone] Izzy Hackett Unavailable [email or web address] Radha Pereira RN Unavailable [phone] Encounter Details Date Type Department Care Team (Late st Contact Info) Description 06/21/2018 Transcribe Orders [facility] Specimen Processing [address] [place] [address] Beatriz Donaldson, TECHNICAL OPERATIONS MANAGER [address] [place], [place] [phone] Routine general medical examination at a health care facility (Primary Dx); Sjogren's syndrome with lung involvement; Inflammatory arthritis; 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, longitudinal float operator, current use Social History Tobacco Use Types Packs/Day Years [...] Description 07/22/2025 1:30 PM EDT Office Visit [facility] Family Medicine [address] [place] [address] [place] [address] Johann Hanson, INDUSTRIAL BOILERMAKER [address] [facility], [address] [place] [address] [email or web address] 07/23/2025 8:00 AM EDT Office Visit [facility] Rheumatology [address] [place] [address] [place] [address] Margaux Montanez MD [address] [place] [address], [address] [place] [address] [email or web address] 09/10/2025 9:00 AM EST Office Visit [facility] Gastroenterology Clinic [address] [place] [address] Unknown, [place], Shreyas Limon MD [address] [address] 09/21/2025 2:30 PM EST Office Visit [facility] Pulmonary, Allergy and Critical Care Medicine 10 [facility] [place] [address] eLster Hicks MD [address] [place] [address] [address] [place] [address] 10/13/2025 9:20 AM EST Office Visit [facility] Endocrinology [address] [place] [address] Doretha Glynn MD [address] [place] [address] [address] [place] [address] [email or web address] 12/22/2025 8:30 AM EDT Office Visit [address] [place] [address] Johann Hanson, INDUSTRIAL BOILERMAKER [address] [place] [address], [address] [place] [address] [email or web address] 06/30/2026 8:00 AM EDT Office Visit [address] [place] [address] Johann Hanson, INDUSTRIAL BOILERMAKER [address] [place] [address], [address] [place] [address] [email or web address] documented as of this encounter Procedures Procedure Name Priority Date/Time Associated Diagnosis Comments IRON Routine 06/21/2018 4:35 PM EDT Routine general medical examination at a health care facility COMPREHENSIVE METABOLIC PANEL Routine 06/21/2018 4:35 PM EDT Sjogren's syndrome with lung involvement Inflammatory arthritis 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, detention, current use SEDIMENTATION RATE (ESR) Routine 06/21/2018 4:35 PM EDT Sjogren's syndrome with lung involvement Inflammatory arthritis 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, detention, current use CBC AND DIFFERENTIAL Routine 06/21/2018 4:35 PM EDT Sjogren's syndrome with lung involvement Inflammatory arthritis 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, longitudinal float operator, current use COMPLEMENT C3 Routine 06/21/2018 4:35 PM EDT Sjogren's syndrome with lung involvement Inflammatory arthritis 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, longitudinal float operator, current use COMPLEMENT C4 Routine 06/21/2018 4:35 PM EDT Sjogren's syndrome with lung involvement Inflammatory arthritis 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, longitudinal float operator, current use C-REACTIVE PROTEIN Routine 06/21/2018 4: 35 PM EDT Sjogren's syndrome with lung involvement Inflammatory arthritis 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, detention, current use TSH Routine 06/21/2018 4:35 PM EDT Routine general medical examination at a health care facility FERRITIN Routine 06/21/2018 4:35 PM EDT Routine general medical examination at a health care facility documented in this encounter Results * Complement C4 (06/21/2018 4:35 PM EDT) COMPLEMENT C4 23 14 - 40 mg/dL [facility] DPT OF LAB MED AND PAT+ Blood 06/21/2018 4:35 PM EDT 06/22/2018 1:28 PM EDT us Margaux Leija-Cristiana MD LAB BLOOD ORDERABLES Fin al Result [facility] DPT OF LAB MED AND PAT+ [address] [place] [address] * Complement C3 (06/21/2018 4:35 PM EDT) COMPLEMENT C3 116 75 - 175 mg/dL [facility] DPT OF LAB MED AND PAT+ Blood 06/21/2018 4:35 PM EDT 06/22/2018 1:28 PM EDT Margaux Montanez MD LAB BLOOD ORDERABLES Fin al Result Performing Organization Address City/[facility]/ZIP Co de Phone Number [facility] DPT OF LAB MED AND PAT+ [address] [place] [address] * Sedimentation rate (ESR) (06/21/2018 4:35 PM EDT) ESR 4 0 - 30 mm/h [facility] Blood 06/21/2018 4:35 PM EDT 06/21/2018 5:56 PM EDT us Margaux Montanez MD LAB BLOOD ORDERABLES Fin al Result Performing Organization Address [facility]/ZIP Co de Phone Number [address] [address] * C-Reactive Protein (06/21/2018 4:35 PM EDT) C REACTIVE PROTEIN 0.5 0.0 - 4.0 mg/L [facility] Blood 06/21/2018 4:35 PM EDT 06/21/2018 5:56 PM EDT us Margaux Montanez MD LAB BLOOD ORDERABLES Fin al Result Performing Organization Address City/[facility]/ZIP Co de Phone Number [address] [address] * Comprehensive metabolic panel (06/21/2018 4:35 PM EDT) SODIUM 144 133 - 146 mmol/L [facility] POTASSIUM 3.6 3.3 - 5.1 mmol/L [facility] CHLORIDE 100 96 - 108 mmol/L [facility] CO2 30 21 - 35 mmol/L [facility] BUN 13 6 - 19 mg/dL [facility] CREATININE 0.70 0.5 - 1.5 mg/dL [facility] GLUCOSE 89 70 - 99 mg/dL [facility] ALBUMIN 4.3 3.9 - 4.8 g/dL [facility] TOTAL PROTEIN 6.7 6.5 - 8.0 g/dL [facility] CALCIUM 9.9 8.4 - 10.3 mg/dL [facility] ALKALINE PHOSPHATASE 59 39 - 117 U/L [facility] TOTAL BILIRUBIN 0.2 0.0 - 1.2 mg/dL [facility] AST 22 0 - 37 U/L [facility] ALT 16 0 - 40 U/L [facility] GLOBULIN 2.4 1 - 4.8 g/dL [facility] EGFR 97 >59 mL/min/1.7 3m2 [facility] Comment:If patient is black, multiply result by 1.159. Estimated glomerular filtration rate calculated using the CKD-EPI equation. ANION GAP 18 10 - 20 mmol/L [facility] Blood 06/21/2018 4:35 PM EDT 06/21/2018 5:56 PM EDT us Margaux Montanez MD LAB BLOOD ORDERABLES Fin al Result [address] [address] * CBC and differential (06/21/2018 4:35 PM EDT) WBC 5.00 3.40 - 11.20 K/uL [facility] RBC 4.23 3.80 - 4.80 M/uL [facility] HGB 13.2 12.0 - 15.0 g/dL [facility] HCT 39.5 36.0 - 46.0 % [facility] PLT 229 130 - 400 K/uL [facility] MCV 93.4 79.0 - 98.0 fL [facility] MCH 31.2 27.0 - 34.8 pg [facility] MCHC 33.4 31.5 - 36.0 g/dL [facility] RDW 12.9 10.8 - 14.6 % [facility] MPV 10.5 9.4 - 12.4 fl [facility] NRBC 0.00 /100 WBCs [facility] ABSOLUTE NRBC 0.00 K/uL [facility] DIFF METHOD Auto [facility] NEUTS 53.8 45.30 - 77.70 % [facility] LYMPHS 34.4 12.30 - 39.70 % [facility] MONOS 8.2 4.10 - 12.80 % [facility] EOS 2.6 0 - 7.2 % [facility] BASOS 0.8 0 - 2.80 % [facility] Granulocytes, immature (%) 0.2 0.0 - 0.9 % [facility] ABSOLUTE NEUTS 2.69 1.40 - 7.70 K/uL [facility] ABSOLUTE LYMPHS 1.72 0.60 - 3.20 K/uL [facility] ABSOLUTE MONOS 0.41 0.11 - 0.59 K/uL [facility] ABSOLUTE EOS 0.13 0.01 - 0.50 K/uL [facility] ABSOLUTE BASOS 0.04 0.00 - 0.08 K/uL [facility] Granulocytes, immature 0.01 0.00 - 0.05 K/uL [facility] Blood 06/21/2018 4:35 PM EDT 06/21/2018 5:56 PM EDT us Margaux Montanez MD LAB BLOOD ORDERABLES Fin al Result [facility] [address] [place] [address] * Ferritin (06/21/2018 4:35 PM EDT) FERRITIN 43 13 - 150 ug/L [facility] Blood 06/21/2018 4:35 PM EDT 06/21/2018 5:56 PM EDT Beatriz Donaldson TECHNICAL OPERATIONS MANAGER LAB BLOOD ORDERABLES Final R esult Performing Organization Address City/[facility]/ZIP Co de Phone Number [address] [address] * Iron (06/21/2018 4:35 PM EDT) IRON 64 30 - 160 ug/dL [facility] Blood 06/21/2018 4:35 PM EDT 06/21/2018 5:56 PM EDT Beatriz Donaldson TECHNICAL OPERATIONS MANAGER LAB BLOOD ORDERABLES Final R esult Performing Organization Address [facility] Co de Phone Number [address] [address] * (ABNORMAL) TSH (06/21/2018 4:35 PM EDT) TSH 0.04(L) 0.27 - 4.20 uIU/mL [facility] Blood 06/21/2018 4:35 PM EDT 06/21/2018 5:56 PM EDT Beatriz Donaldson TECHNICAL OPERATIONS MANAGER LAB BLOOD ORDERABLES Final R esult Performing Organization Address [facility] Co de Phone Number [address] [address] documented in this encounter Visit Diagnoses Diagnosis Routine general medical examination at a health care facility- Primary Sjogren's syndrome with lung involvement Inflammatory arthritis Unspecified inflammatory polyarthropathy 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, detention, current use documented in this encounter Additional Health Concerns Infection Onset Date Last Indicated Resolved Time CoV-Presumed 05/27/2022 05/27/2022 06/17/2022 1:21 AM EDT CoV-Presumed Comment:COVID-19 Added 10/12/2022 10/12/2022 10/13/2022 6:26 P M EST COVID-19 10/13/2022 10/13/2022 11/03/2022 1:21 AM EST COVID-19 10/07/2023 10/07/2023 10/28/2023 1:21 AM EST documented as of this encounter Care Teams Branch Office Administrator Relationship Specialty Start Date End Date Beatriz Donaldson TECHNICAL OPERATIONS MANAGER [address] [place] [address] PCP - General Family Medicine 10/04/17 04/11/20 Mamta Whitney DO [address] [place] [phone] [email or web address] PCP - General Family Medicine 04/12/20 02/08/21 Mamta Whitney DO [address] [place] [address] [email or web address] PCP - General Family Medicine 02/10/21 02/10/21 Johann Hanson CNP [address] [place] [address], [address] [place] [address] [email or web address] PCP - General Family Medicine 02/11/21 Tricia Balderas DO [address] [place] [address] [email or web address] Historical LMR Provider 07/28/17 10/15/21 Lester Hicks MD [address] [place] [address] [email or web address] Historical LMR Provider 07/28/17 Margaux Montanez MD [address] [facility], [address] [place] [address] [email or web address] Historical LMR Provider 07/28/17 Demario Floyd MD [address] [place] [address] [email or web address] Historical LMR Provider 07/28/17 10/15/21 Pam Benson MD [address] [place] [address] [email or web address] Historical LMR Provider 07/28/17 10/15/21 Adithya Campos INDUSTRIAL BOILERMAKER [address] [place] [address] [email or web address] Historical LMR Provider 07/28/17 12/25/21 Beatriz Donaldson NP [address] [place] [address] Historical LMR Provider 07/28/17 04/11/20 Khang Kilgore MD [address] [place] [address], [address] [place] [address] [email or web address] Insurance Assigned Provider 01/12/24 Luis Ignacio DO [address] [place] [address], [address] [place] [address] [email or web address] Cardiology 06/28/22 06/16/24 Flo Esteban MD [address] [place] [address] [place] [address] [email or web address] Cardiothoracic Surgery 06/28/22 06/16/24 Dilan Rowland MD [address] [place] [address], [address] [place] [address] [email or web address] Insurance Assigned Provider 07/15/22 08/13/22 Croby Prado MD [address] [place] [address], [address] [place] [address] [email or web address] Insurance Assigned Provider 08/13/22 09/16/22 Neisha Pinto RN [address] [place] [address], [address] [place] [address] [email or web address]eder 02/26/23 06/10/25 Shreyas Wilson MD [address] [place] [address] [email or web address] Gastroenterology 06/17/24 Doretha Glynn MD [address] [place] [address] [email or web address] Endocrinology 06/17/24 Izzy Hackett [address] [place] [address] [email or web address] [facility] 09/11/24 09/11/24 Radha Pereira, RN [address] [place] [address] [email or web address] [facility] Delivery Table FeederTooling Engineer 06/11/25 documented as of this encounter Additional Source Comments The information contained in this document represents components of the legal health record. It is not the complete legal health record.[facility]
--- OUTSIDE RECORDS SUMMARY | 2025-07-08 07:16 | XMS_ITS | Encounter Summary ---
Author Organization [facility] Address [address] [place] [address] [place] [address] Phone Care Team Providers Care Certified Physician'S Assistant Name Role Phone Tricia Balderas DO Unavailable Lester Hicks MD Unavailable [phone] Margaux Montanez MD Unavailable Demario Floyd MD Unavailable Pam Benson MD Unavailable Adithya Campos BOBBIN PAINTER Unavailable Mamta Whitney DO Primary Care Provider [phone] Mamta Whitney DO Primary Care Provider [phone] Johann Hanson BOBBIN PAINTER Primary Care Provider [phone] Khang Kilgore MD Unavailable Luis Ignacio DO Unavailable Flo Esteban MD Unavailable [phone] Dilan Rowland MD Unavailable [phone] Corby Prado MD Unavailable [phone] Neisha Pinto RN Unavailable [email or web address] Shreyas Wilson MD Unavailable Doretha Glynn MD Unavailable [phone] Izzy Hackett Unavailable sami Radha Pereira RN Unavailable [phone] Encounter Details Date Type Department Care Team (Latest Contact Info) Description 04/14/2020 Transcribe Orders [facility] Laboratory [address] [place] [address] Alise Winkler PA-C [address], [address] [place] [address] Fatigue, unspecified type (Primary Dx); Diarrhea, unspecified type Social History Tobacco Use Types Packs/Day Years Used Date Smoking Tobacco: Never Smokeless Tobacco: Never Alcohol Use Standard Drinks/Week Comments No 0 (1 standard drink = 0.6 oz pur e alcohol) Comments No Sex and Gender Information Value [...] Description 07/22/2025 1:30 PM EDT Office Visit [facility] Medicine [address] [place] [address] [place] [address] Johann Hanson, TIFFANIE [address] [place] [address], [address] [place] [address] [email or web address] 07/23/2025 8:00 AM EDT Office Visit [facility] Rheumatology [address] [place] [address] [place] [address] Margaux Montanez MD [address] [place] [address], [address] [place] [address] [email or web address] 09/10/2025 9:00 AM EST Office Visit [facility] Gastroenterology Clinic 10 [place] [address] Unknown, [place], Shreyas Limon MD 10 [facility] 2 [place] [address] 09/21/2025 2:30 PM EST Office Visit [facility] Pulmonary, Allergy and Critical Care Medicine 10 [facility] [place] [address] Lester Hicks MD [address] [address] 10/13/2025 9:20 AM EST Office Visit [facility] Endocrinology [address] [place] [address] Doretha Glynn MD [address] [place] [address] [email or web address] 12/22/2025 8:30 AM EDT Office Visit [address] [place] [address] Johann Hanson, BOBBIN PAINTER [address] [place] [address], [address] [place] [address] [email or web address] 06/30/2026 8:00 AM EDT Office Visit [address] [place] [address] Johann Hanson, BOBBIN PAINTER [address] [place] [address], [address] [place] [address] [email or web address] documented as of this encounter Results * Giardia antigen screen (04/15/2020 4:18 PM EDT) [facility] GIARDIA ANTIGEN Negative Negative [facility] DPT OF LAB MED AND PAT+ Comment: (NOTE) ADDITIONAL INFORMATION Test Performed by Enzyme Immunoassay. Stool (Stool) 04/15/2020 4:1 8 PM EDT 04/15/2020 4:24 PM EDT Alise Winkler PA-C MICROBIOLOGY - GENERAL ORDERABL ES Final Result Performing Organization Address City/[facility]/ZIP Co de Phone Number [facility] DPT OF LAB MED AND PAT+ [address] [place] [address] * Ova and parasites, stool (04/15/2020 8:00 AM EDT) Special Requests None 04/15/2020 4:19 PM EDT [facility] DIRECT EXAM NO PARASITES FOUND BY DIRECT OR CONCENTRATION METHODS 04/26/2020 10:47 AM EDT [facility] DIRECT EXAM No parasites found by Trichrome Stain 04/26/2020 10:47 AM EDT [facility] Stool (Stool) 04/15/2020 8:0 0 AM EDT 04/15/2020 4:24 PM EDT Alise Winkler PA-C MICROBIOLOGY - GENERAL ORDERABL ES Final Result Performing Organization Address [facility] Co de Phone Number [address] [address] * Fecal immunochemical test x1 (FIT) (04/15/2020 8:00 AM EDT) Immuno Fecal Occult Negative [facility] Stool (Stool) 04/15/2020 8:0 0 AM EDT 04/15/2020 4:23 PM EDT Alise Winkler PA-C BODY FLUIDS AND STOOLS ORDERABL ES Final Result Performing Organization Address [facility] Co de Phone Number [address] [address] * Fecal leukocyte examination (04/15/2020 8:00 AM EDT) Special Requests None 04/15/2020 4:19 PM EDT [facility] GRAM STAIN No WBC seen on smear. 04/16/2020 8:47 AM EDT [facility] Stool (Stool) 04/15/2020 8:0 0 AM EDT 04/15/2020 4:24 PM EDT us Alise Winkler PA-C MICROBIOLOGY - GENERAL ORDERABL ES Final Result Performing Organization Address [facility] de Phone Number [address] [address] * Stool culture (04/15/2020 8:00 AM EDT) Special Requests None 04/15/2020 4:19 PM EDT [facility] Stool Culture NO SALMONELLA, SHIGELLA OR CAMPYLOBACTER ISOLATED 04/16/2020 8:09 AM EDT [facility] Stool (Stool) 04/15/2020 8:0 0 AM EDT 04/15/2020 4:24 PM EDT us Alise Winkler PA-C MICROBIOLOGY - GENERAL ORDERABL ES Final Result Performing Organization Address [facility] Co de Phone Number [address] [address] * Immunoglobulin A (04/14/2020 12:05 PM EDT) IgA 84 70 - 400 mg/dL [facility] Blood 04/14/2020 12:0 5 PM EDT 04/14/2020 12:23 PM EDT us Alise Winkler PA-C LAB BLOOD ORDERABLES Final Resu lt Performing Organization Address [facility] Co de Phone Number [address] [address] * Tissue transglutaminase IgA (04/14/2020 12:05 PM EDT) TTG IGA ANTIBODY <1.2 <4.0 (Negative) U/mL [facility] Blood 04/14/2020 12:0 5 PM EDT 04/14/2020 12:22 PM EDT us Alise Winkler PA-C LAB BLOOD ORDERABLES Final Resu lt [facility] [address] [place] [address] documented in this encounter Visit Diagnoses Diagnosis Fatigue, unspecified type- Primary Diarrhea, unspecified type documented in this encounter Additional Health Concerns Infection Onset Date Last Indicated Resolved Time CoV-Presumed 05/27/2022 05/27/2022 06/17/2022 1:21 AM EDT CoV-Presumed Comment:COVID-19 Added 10/12/2022 10/12/2022 10/13/2022 6:26 P M EST COVID-19 10/13/2022 10/13/2022 11/03/2022 1:21 AM EST COVID-19 10/07/2023 10/07/2023 10/28/2023 1:21 AM EST documented as of this encounter Care Teams Certified Physician'S Assistant Relationship Specialty Start Date End Date Mamta Whitney DO [address] [place] [address] [email or web address] PCP - General Family Medicine 04/12/20 02/08/21 Mamta Whitney DO [address] [place] [address] [email or web address] PCP - General Family Medicine 02/10/21 02/10/21 Johann Hanson CNP [address] [place] [address], [address] [place] [address] PCP - General Family Medicine 02/11/21 Tricia Balderas DO [address] [place] [address] [email or web address] Historical LMR Provider 07/28/17 10/15/21 Lester Hicks MD [address] [place] [address] [email or web address] Historical LMR Provider 07/28/17 Margaux Montanez MD [address] [place] [address], [address] [place] [address] [email or web address] Historical LMR Provider 07/28/17 Demario Floyd MD [address] [place] [address] [email or web address] Historical LMR Provider 07/28/17 2 Pam Benson MD [address] [place] [address] [email or web address] Historical LMR Provider 07/28/17 Adithya Campos, BOBBIN PAINTER [address] [place] [address] Historical LMR Provider 07/28/17 12/25/21 Khang Kilgore MD [address] [place] [address], [address] [place] [address] [email or web address] Insurance Assigned Provider 01/12/24 Luis Ignacio DO [address] [place] [address], [address] [place] [address] Cardiology 06/28/22 06/16/24 Flo Esteban MD [address] [place] [address] [place] [address] [email or web address] Cardiothoracic Surgery 06/28/22 06/16/24 Dilan Rowland MD [address] [place] [address], [address] [place] [address] [email or web address] Insurance Assigned Provider 07/15/22 08/13/22 Corby Prado MD [address] [place] [address], [address] [place] [address] [email or web address] Insurance Assigned Provider 08/13/22 09/16/22 Neisha Pinto RN [address] [place] [address], [address] [place] [address] [email or web address] Hr Payroll Coordinator 02/26/23 06/10/25 Shreyas Wilson MD [address] [place] [address] Gastroenterology 06/17/24 Doretha Glynn MD [address] [place] [address] [address] [place] [address] Endocrinology 06/17/24 Izzy Hackett [address] [place] [address] [email or web address] [facility] Community Metal Spray Operator 09/11/24 09/11/24 Radha Pereira, RN [address] [place] [address] [email or web address] iC[employer] Hr Payroll CoordinatorAssociate Music Professor 06/11/25 documented as of this encounter Additional Source Comments The information contained in this document represents components of the legal health record. It is not the complete legal health record.[facility]
--- OUTSIDE RECORDS SUMMARY | 2025-07-08 07:16 | XMS_ITS | Encounter Summary ---
Author Organization [facility] Address [address] [place] [address] Phone Care Team Providers Care Systems Spec Name Role Phone Beatriz Donaldson GAG WRITER Primary Care Provider [phone] Tricia Balderas DO Unavailable [phone] Lester Hicks MD Unavailable Margaux Montanez MD Unavailable Demario Floyd MD Unavailable Pam Benson MD Unavailable [phone] Adithya Campos DYE ROOM HELPER Unavailable [phone] Beatriz Donaldson GAG WRITER Unavailable [phone] Beatriz Donaldson GAG WRITER Primary Care Provider [phone] Mamta Whitney DO Primary Care Provider [phone] Mamta Whitney DO Primary Care Provider [phone] Johann Hanson DYE ROOM HELPER Primary Care Provider [phone] Khang Kilgore MD Unavailable Luis Ignacio DO Unavailable Flo Esteban MD Unavailable Dilan Rowland MD Unavailable [phone] Corby Prado MD Unavailable [phone] Neisha Pinto RN Unavailable [email or web address] Shreyas Wilson MD Unavailable Doretha Glynn MD Unavailable [phone] Izzy Hackett Unavailable [email or web address] Radha Pereira RN Unavailable Encounter Details Date Type Department Care Team (Late st Contact Info) Description 09/03/2017 Ancillary Orders [facility] External Provider Virtual Department [address] [place] [address] Beatriz Donaldson, GAG WRITER [address] [place] [address] Breast screening Social History Tobacco Use Types Packs/Day Years [...] Description 07/22/2025 1:30 PM EDT Office Visit [facility] Family Medicine [address] [place] [address] [place] [address] Johann Hanson CNP [address] [place] [address], [address] [place] [address] [email or web address] 07/23/2025 8:00 AM EDT Office Visit [facility] Rheumatology [address] [place] [address] [place] [address] Margaux Montanez MD [address] [place] [address], [address] [place] [address] [email or web address] 09/10/2025 9:00 AM EST Office Visit [facility] Gastroenterology Clinic 10 [place] [address] Unknown, [place], Shreyas Limon MD 10 [facility] 2 [place] [address] 09/21/2025 2:30 PM EST Office Visit [facility] Pulmonary, Allergy and Critical Care Medicine 10 [facility] [address] Lester Hicks MD [address] [address] 10/13/2025 9:20 AM EST Office Visit [facility] Endocrinology [address] [place] [address] Doretha Glynn MD [address] [place] [address] [email or web address] 12/22/2025 8:30 AM EDT Office Visit [address] [place] [address] Johann Hanson, DYE ROOM HELPER [address] [place] [address], [address] [place] [address] [email or web address] 06/30/2026 8:00 AM EDT Office Visit [address] [place] [address] Johann Hanson, DYE ROOM HELPER [address] [place] [address], [address] [place] [address] [email or web address] documented as of this encounter Results * BI MAMMOGRAM SCREENING WITH TOMOSYNTHESIS WITH CAD (BILATERAL) (08/12/2018 11:27 AM EST) Anatomical Region Laterality Modality Breast Left, Breast Right, Breast Bilateral Bila teral Mammography 08/12/2018 12:1 4 PM EST Impressions 08/12/2018 12:17 PM EST Stable appearance relative to prior imaging. No findings suggestive of malignancy are seen. BI-RADS CATEGORY: 2 - Benign finding. DENSITY: There are scattered fibroglandular densities. POS - [id number] Narrative 08/12/2018 12:17 PM EST Full-field digital mammography is obtained with computer-aided detection. Comparison with prior imaging from 12/16/2013 is made with older imaging dating back as far as 09/26/2005 also reviewed. There is scattered fibroglandular density evident in the breasts. In addition to 2-D C view imaging, tomosynthesis images are obtained in two projections of each breast. There are minor right breast vascular calcifications evident.. No dominant soft tissue mass of concern, suspicious cluster of calcifications, significant interval skin changes, or architectural distortion is identified. Procedure Note Gino Schultz MD - 08/12/2018 Full-field digital mammography is obtained with computer-aided detection.Comparison with prior imaging from 12/16/2013 is made with older imagingdating back as far as 09/26/2005 also reviewed. There is scattered fibroglandular density evident in the breasts. Inaddition to 2-D C view imaging, tomosynthesis images are obtained in twoprojections of each breast. There are minor right breast vascular calcifications evident.. Nodominant soft tissue mass of concern, suspicious cluster ofcalcifications, significant interval skin changes, or architecturaldistortion is identified. IMPRESSION: Stable appearance relative to prior imaging. No findings suggestive ofmalignancy are seen. BI-RADS CATEGORY: 2 - Benign finding. DENSITY: There are scattered fibroglandular densities. POS - [id number] Beatriz Donaldson GAG WRITER IMG MG EXAMS Final Result documented in this encounter Visit Diagnoses Diagnosis Breast screening Breast screening, unspecified Breast screening Breast screening, unspecified documented in this encounter Additional Health Concerns Infection Onset Date Last Indicated Resolved Time CoV-Presumed 05/27/2022 05/27/2022 06/17/2022 1:21 AM EDT CoV-Presumed Comment:COVID-19 Added 10/12/2022 10/12/2022 10/13/2022 6:26 P M EST COVID-19 10/13/2022 10/13/2022 11/03/2022 1:21 AM EST COVID-19 10/07/2023 10/07/2023 10/28/2023 1:21 AM EST documented as of this encounter Care Teams Systems Spec Relationship Specialty Start Date End Date Beatriz Donaldson NP PCP - General 07/26/17 10/03/17 Beatriz Donaldson GAG WRITER PCP - General Family Medicine 10/04/17 04/11/20 Mamta Whitney DO [address] [place] [address] [email or web address] PCP - General Family Medicine 04/12/20 02/08/21 Mamta Whitney DO [address] [place] [address] [email or web address] PCP - General Family Medicine 02/10/21 02/10/21 Johann Hanson CNP 22 [facility], 201 [place] [address] [email or web address] PCP - General Family Medicine 02/11/21 Tricia Balderas DO [address] [place] [address] [email or web address] Historical LMR Provider 07/28/17 10/15/21 Lester Hicks MD [address] [place] [address] [email or web address] Historical LMR Provider 07/28/17 Margaux Montanez MD [address] [place] [address], [address] [place] [address] [email or web address] Historical LMR Provider 07/28/17 Demario Floyd MD [address] [place] [address] [email or web address] Historical LMR Provider 07/28/17 10/15/21 Pam Benson MD [address] [place] [address] [email or web address] Historical LMR Provider 07/28/17 10/15/21 Adithya Campos, DYE ROOM HELPER [address] [place] [address] Historical LMR Provider 07/28/17 12/25/21 Beatriz Donaldson, GAG WRITER [address] [place] [address] Historical LMR Provider 07/28/17 04/11/20 Khang Kilgore MD [address] [place] [address], [address] [place] [address] Insurance Assigned Provider 01/12/24 Luis Ignacio DO [address] [place] [address], [address] [place] [address] Cardiology 06/28/22 06/16/24 Flo Esteban MD [address] [place] [address] [place] [address] [email or web address] Cardiothoracic Surgery 06/28/22 06/16/24 Dilan Rowland MD [address] [place] [address], [address] [place] [address] [email or web address] Insurance Assigned Provider 07/15/22 08/13/22 Corby Prado MD [address] [place] [address], [address] [place] [address] [email or web address] Insurance Assigned Provider 08/13/22 09/16/22 Neisha Pinto, RANDI [address] [place] [address], [address] [place] [address] [email or web address] iCMP Scrubber System Attendant 02/26/23 06/10/25 Shreyas Wilson MD [address] [place] [address] Gastroenterology 06/17/24 Doretha Glynn MD [address] [place] [address] [address] [place] [address] Endocrinology 06/17/24 Izzy Hackett [address] [place] [address] [email or web address] [facility] Community Licensed Direct Entry Midwife 09/11/24 09/11/24 Radha Pereira, RN [address] [place] [address] [email or web address] iCMP Scrubber System AttendantShell Machine Operator 06/11/25 documented as of this encounter Additional Source Comments The information contained in this document represents components of the legal health record. It is not the complete legal health record.[facility]
--- OUTSIDE RECORDS SUMMARY | 2025-07-08 07:16 | XMS_ITS | Encounter Summary ---
Author Organization [facility] Address [address] [place] [address] Phone Care Team Providers Care Converter Operator Name Role Phone Lester Hicks MD Unavailable [phone] Margaux Montanez MD Unavailable Johann Hanson CNP Primary Care Provider [phone] Khang Kilgore MD Unavailable [phone] Luis Ignacio DO Unavailable Flo Esteban MD Unavailable [phone] Neisha Pinto RN Unavailable [email or web address] Shreyas Wilson MD Unavailable [phone] Doretha Glynn MD Unavailable [phone] Izzy Hackett Unavailable [email or web address] Radha Pereira RN Unavailable [phone] Encounter Details Date Type Department Care Team (Late st Contact Info) Description 11/17/2022 Procedure Pass [facility] PERIOPERATIVE DEPT [address] [place] [address] Social History Tobacco Use Types Packs/Day Years [...] high school, GED, job training, learning the Tongan language, technical skills, or developing parenting skills)? [...] Date of Assessment Author No Risk Indicated 11/17/2022 7:00 PM David Mccormick RN * [place] Suicide Severity Rating Scale (Screener/Recent Self-Report) Question Answer Date of Assessment Author 1. Wish to be (Past 1 Month) No 11/17/2022 7:00 PM David Mccormick RN 2. Non-Specific Active Suicidal Thoughts (Past 1 Month) No 11/17/2022 7:00 PM David Mccormick RN 6. Suicidal Behavior (Lifetime) No 11/17/2022 7:00 PM David Mccormick RN documented as of this encounter Plan of Treatment Upcoming Encounters Date Type Department Care Team (Late st Contact Info) Description 07/22/2025 1:30 PM EDT Office Visit [facility] Medicine [address] [place] [address] [place] [address] Johann Hanson CNP 22 [facility], [address] [place] [address] [email or web address] 07/23/2025 8:00 AM EDT Office Visit [facility] Rheumatology [address] [place] [address] [place] [address] Margaux Montanez MD [address] [place] [address], [address] [place] [address] [email or web address] 09/10/2025 9:00 AM EST Office Visit [facility] Gastroenterology Clinic [address] [place] [address] Unknown, Unknown, Shreyas Limon MD [address] [place] [address] 09/21/2025 2:30 PM EST Office Visit [facility] Pulmonary, Allergy and Critical Care Medicine 10 [facility] [place] [address] Lester Hicks MD [address] [place] [address] 10/13/2025 9:20 AM EST Office Visit [facility] Endocrinology [address] [place] [address] Doretha Glynn MD [address] [place] [address] [email or web address] 12/22/2025 8:30 AM EDT Office Visit [facility] [address] [place] [address] Johann Hanson CNP 22 [facility], [address] [place] [address] [email or web address] 06/30/2026 8:00 AM EDT Office Visit [facility] [address] [place] [address] Johann Hanson CNP 22 [facility], [address] [place] [address] [email or web address] documented as of this encounter Visit Diagnoses Not on filedocumented in this encounter Additional Health Concerns Infection Onset Date Last Indicated Resolved Time COVID-19 10/07/2023 10/07/2023 10/28/2023 1:21 AM EST Assessment Noted Time PHQ-2 Depression Total Score: 0 05/15/20 1:45 PM EDT documented as of this encounter Care Teams Converter Operator Relationship Specialty Start Date End Date Johann Hanson CNP [address] [place] [address], [address] [place] [address] PCP - General Family Medicine 02/11/21 Lester Hicks MD [address] [place] [address] Historical LMR Provider 07/28/17 Margaux Montanez MD [address] [place] [address], [address] [place] [address] [email or web address] Historical LMR Provider 07/28/17 Khang Kilgore MD [address] [place] [address], [address] [place] [address] [email or web address] Insurance Assigned Provider 01/12/24 Luis Ignacio DO [address] [place] [address], [address] [place] [address] Cardiology 06/28/22 06/16/24 Flo Esteban MD [address] [place] [address] [email or web address] Cardiothoracic Surgery 06/28/22 06/16/24 Neisha Pinto RN [address] [place] [address] [email or web address] iCMP Wait Staff 02/26/23 06/10/25 Shreyas Wilson MD [address] [place] [address] Gastroenterology 06/17/24 Doretha Glynn MD [address] [place] [address] [address] [place] [address] Endocrinology 06/17/24 Izzy Hackett [address] [place] [address] [email or web address] Community Adjunct Trainer 09/11/24 09/11/24 Radha Pereira, RN [address] [place] [phone] [email or web address] iCMP Wait StaffFamily Services Specialist 06/11/25 documented as of this encounter Additional Source Comments The information contained in this document represents components of the legal health record. It is not the complete legal health record.[facility]
--- OUTSIDE RECORDS SUMMARY | 2025-07-08 07:18 | XMS_ITS | Encounter Summary ---
Author Organization [facility] Address [address] [place] [address] Phone Care Team Providers Care Lowerator Operator Name Role Phone Lester Hicks MD Unavailable [phone] Margaux Montanez MD Unavailable Johann Hanson CNP Primary Care Provider [phone] Khang Kilgore MD Unavailable Luis Ignacio DO Unavailable Flo Esteban MD Unavailable [phone] Neisha Pinto RN Unavailable [email or web address] Shreyas Wilson MD Unavailable [phone] Doretha Glynn MD Unavailable [phone] Izzy Hackett Unavailable [email or web address] Radha Pereira RN Unavailable Encounter Details Date Type Department Care Team (Late st Contact Info) Description 12/07/2022 Procedure Pass [facility] Echo Lab 30 [place], [place] [id number] Social History Tobacco Use Types Packs/Day Years [...] high school, GED, job training, learning the Macanese language, technical skills, or developing parenting skills)? [...] No Risk Indicated 12/07/2022 9:18 AM Alise Hamilton, RN * Shepherd Suicide Severity Rating Scale (Screener/Recent Self-Report) Question Answer Date of Assessment Author 1. Wish to be (Past 1 Month) No 023 9:18 AM Alise Lindo, RN 2. Non-Specific Active Suici ronald Thoughts (Past 1 Month) No 12/07/2022 9:18 AM Alise Lindo, RN 6. Suicidal Behavior (Lifetime) No 3 9:18 AM Alise Lindo, RN documented as of this encounter Plan of Treatment Upcoming Encounters Date Type Department Care Team (Late st Contact Info) Description 07/22/2025 1:30 PM EDT Office Visit [facility] Medicine [address] [place] [address] [place] [address] Johann Hanson CNP [address] [facility], [address] [place] [address] [email or web address] 07/23/2025 8:00 AM EDT Office Visit [facility] Rheumatology [address] [place] [address] [place] [address] Margaux Montanez MD [address] [place] [address], [address] [place] [address] [email or web address] 09/10/2025 9:00 AM EST Office Visit [facility] 10 [place] [address] Unknown, Unknown, Shreyas Limon MD [address] [place] [address] 09/21/2025 2:30 PM EST Office Visit [facility] Pulmonary, Allergy and Critical Care Medicine 10 [place] [address] Lester Hicks MD [address] [place] [address] 10/13/2025 9:20 AM EST Office Visit [facility] Endocrinology [address] [place] [address] Doretha Glynn MD [address] [place] [address] [email or web address] 12/22/2025 8:30 AM EDT Office Visit [facility] [address] [place] [address] Johann Hanson CNP [address] [facility], [address] [place] [address] [email or web address] 06/30/2026 8:00 AM EDT Office Visit [facility] [address] [place] [address] Johann Hanson CNP [address] [facility], [address] [place] [address] [email or web address] documented as of this encounter Visit Diagnoses Not on filedocumented in this encounter Additional Health Concerns Infection Onset Date Last Indicated Resolved Time COVID-19 10/07/2023 10/07/2023 10/28/2023 1:21 AM EST Assessment Noted Time PHQ-2 Depression Total Score: 0 05/15/20 22 1:45 PM EDT documented as of this encounter Care Teams Lowerator Operator Relationship Specialty Start Date End Date Johann Hanson CNP [address] [place] [address], [address] [place] [address] PCP - General Family Medicine 02/11/21 Lester Hicks MD [address] [place] [address] Historical LMR Provider 07/28/17 Margaux Montanez MD [address] [place] [address], [address] [place] [address] [email or web address] Historical LMR Provider 07/28/17 Khang Kilgore MD [address] [place] [address], [address] [place] [address] [email or web address] Insurance Assigned Provider 01/12/24 Luis Ignacio DO [address] [place] [address], [address] [place] [address] Cardiology 06/28/22 06/16/24 Flo Esteban MD [address] [place] [address] [email or web address] Cardiothoracic Surgery 06/28/22 06/16/24 Neisha Pinto RN [address] [place] [address] [email or web address] iCMP Computer Network And Systems Engineer 02/26/23 06/10/25 Shreyas Wilson MD [address] [place] [address] Gastroenterology 06/17/24 Doretha Glynn MD [address] [place] [address] 3rd [place] [address] Endocrinology 06/17/24 Izzy Hackett [address] [place] [address] [email or web address] [facility] Community Sensitometrist 09/11/24 09/11/24 Radha Pereira, RANDI [address] [place] [address] [id number] [email or web address] iCMP Computer Network And Systems EngineerWildlife Technician 06/11/25 documented as of this encounter Additional Source Comments The information contained in this document represents components of the legal health record. It is not the complete legal health record.[facility]
--- OUTSIDE RECORDS SUMMARY | 2025-07-08 07:19 | XMS_ITS | Encounter Summary ---
Author Organization [facility] Address [address] [place] [address] Phone Care Team Providers Care Medical Research Tech Name Role Phone Lester Hicks MD Unavailable [phone] Margaux Montanez MD Unavailable Johann Hanson CNP Primary Care Provider [phone] Khang Kilgore MD Unavailable [phone] Luis Ignacio DO Unavailable [phone] Flo Esteban MD Unavailable [phone] Neisha Pinto RN Unavailable [email or web address] Shreyas Wilson MD Unavailable Doretha Glynn MD Unavailable [phone] Izzy Hackett Unavailable [email or web address] Radha Pereira RN Unavailable Encounter Details Date Type Department Care Team (Latest Contact Info) Description 12/28/2023 Transcribe Orders Virtual Department 30 [place] [address] Shreyas Wilson MD [address] [place] [address] [phone] Dysphagia, unspecified type (Primary Dx); Nausea and vomiting, unspecified vomiting type Social History Tobacco Use Types Packs/Day Years Used Date Smoking Tobacco: Never Smokeless Tobacco: Never Alcohol Use Standard Drinks/Week Comments No 0 (1 standard drink = 0.6 oz pur e alcohol) Child or Family Care Answer Date Record ed Do you have problems with on e of the following making it difficult for you to work, study, or receive health care? No 04/23/2023 Education Answer Date Recorded Are you interested in help w ith more adult education (for example, completing high school, GED, job training, learning the Tajik language, technical skills, or developing parenting skills)? No 04/23/2023 Are you concerned about learning? Not on file 04/23/2023 No 04/23/2023 Yes 04/23/2023 Food Answer Date Recorded Within the past 6 months we worried whether our food would run out before we got money to buy more. Never True 04/23/2023 Within the past 6 months the food we bought just didn't last and we didn't have enough money to get more. Never True Residential Stability Answer Date Recor ded What is your housing situation today? I have vinicius sing 04/23/2023 How many times have you move d in the past 12 months? Zero (I did not move) 04/23/2023 Paying for Meds Answer Date Recorded Do you have trouble paying for medicines? No 04/23/2023 Paying Utility Bills Answer Date Record ed Do you have trouble paying your heating or elect ricity bill? No 04/23/2023 Transportation Answer Date Recorded Has the lack of transportati on kept you from medical appointments or from getting medications? No 04/23/2023 Unemployment Answer Date Recorded Are you currently unemployed or working on a part-time or temporary basis, and looking for work? No 12/31/2022 Digital Access Answer Date Recorded No 04/23/2023 Yes 04/23/2023 Do you have reliable internet access at home? Ye s 04/23/2023 Do you have a device (e.g., phone, tablet, computer) with a working camera? Yes 04/23/2023 Comments No Sex and Gender Information Value [...] Description 07/22/2025 1:30 PM EDT Office Visit [facility] Family Medicine [address] [place] [address] [place] [address] Johann Hanson, TIFFANIE [address] [place] [address], [address] [place] [address] [email or web address] 07/23/2025 8:00 AM EDT Office Visit [facility] Rheumatology [address] [place] [address] [place] [address] Margaux Montanez MD [address] [place] [address], [address] [place] [address] [email or web address] 09/10/2025 9:00 AM EST Office Visit [facility] Gastroenterology Clinic 10 [place] [address] Unknown, Unknown, Shreyas Limon MD [address] [place] [address] 09/21/2025 2:30 PM EST Office Visit [facility] Pulmonary, Allergy and Critical Care Medicine 10 [place] [address] Lester Hicks MD [address] [place] [address] 10/13/2025 9:20 AM EST Office Visit [facility]in[facility] [address] [place] [address] [place] [address] Doretha Glynn MD [address] [place] [address] [email or web address] 12/22/2025 8:30 AM EDT Office Visit [address] [place] [address] Johann Hanson, CLOTH BOIL OFF MACHINE OPERATOR [address] [facility], [address] [place] [address] [email or web address] 06/30/2026 8:00 AM EDT Office Visit [address] [place] [address] Johann Hanson, CLOTH BOIL OFF MACHINE OPERATOR [address] [place] [address], [address] [place] [address] [email or web address] documented as of this encounter Results * FL BARIUM SWALLOW ESOPHAGRAM DOUBLE CONTRAST (01/01/2024 12:00 PM EDT) Anatomical Region Laterality Modality Chest Computed Radiogr aphy 01/01/2024 12:3 7 PM EDT Impressions 01/01/2024 1:20 PM EDT Patient reportedly status post hiatal hernia repair 11/17/2022 with a small residual sliding hernia representing a marked improvement from the previous study of 2021. Mild esophageal dysmotility with transient hold-up to passage of a 13 mm barium tablet at the GE junction, without demonstrable gastroesophageal reflux or significant mucosal pathology. Chronic cricopharyngeal bar. FLUOROSCOPY TIME: 1 minute 30 seconds NUMBER OF IMAGES: [id number] ATTESTATION: I, Lester Michel as teaching physician, have reviewed the images for this case and if necessary edited the report originally created by Ronnell Maurer. Narrative 01/01/2024 1:20 PM EDT BARIUM SWALLOW ESOPHAGRAM DOUBLE CONTRAST HISTORY: Dysphagia. Nausea and vomiting. Status post hiatal hernia repair 11/17/2022. COMPARISON: FL UGI SERIES DOUBLE CONTRAST 03/03/2022. OPERATORS: Ronnell Maurer SUPERVISING PHYSICIAN: Lester Michel TECHNIQUE: Double contrast barium swallow examination was performed with Sodium Carbonate and Barium. FINDINGS: A preliminary lateral view of the neck demonstrates a small ventral osteophyte at C5. No acute osseous abnormality. ESOPHAGUS: Motility: Mild esophageal dysmotility evidenced by distal tertiary contractions Mucosa: A cricopharyngeal bar is intermittently observed without evidence of achalasia or a Zenker's diverticulum. No additional gross masses or ulcerations demonstrated. Distensibility: Transient holdup of a 13 mm barium tablet at the distal esophagus. Tablet cleared after multiple ingestions of thin and thick barium. No definite stricture demonstrated fluoroscopically. GASTROESOPHAGEAL JUNCTION: Patient is now status-post previous large hiatal hernia repair. Small sliding hiatal hernia. GASTROESOPHAGEAL REFLUX: None observed despite provocative maneuvers. Procedure Note Lester Michel MD - 01/01/2024 BARIUM SWALLOW ESOPHAGRAM DOUBLE CONTRAST HISTORY: Dysphagia. Nausea and vomiting. Status post hiatal hernia repair11/17/2022. COMPARISON: FL UGI SERIES DOUBLE CONTRAST 03/03/2022. OPERATORS: Ronnell Maurer SUPERVISING PHYSICIAN: Lester Michel TECHNIQUE: Double contrast barium swallow examination was performed withSodium Carbonate and Barium. FINDINGS: A preliminary lateral view of the neck demonstrates a small ventralosteophyte at C5. No acute osseous abnormality. ESOPHAGUS: Motility: Mild esophageal dysmotility evidenced by distal tertiarycontractions Mucosa: A cricopharyngeal bar is intermittently observed withoutevidence of achalasia or a Zenker's diverticulum. No additional grossmasses or ulcerations demonstrated. Distensibility: Transient holdup of a 13 mm barium tablet at the distalesophagus. Tablet cleared after multiple ingestions of thin and thickbarium. No definite stricture demonstrated fluoroscopically. GASTROESOPHAGEAL JUNCTION: Patient is now status-post previous largehiatal hernia repair. Small sliding hiatal hernia. GASTROESOPHAGEAL REFLUX: None observed despite provocative maneuvers. IMPRESSION: Patient reportedly status post hiatal hernia repair 11/17/2022 with a smallresidual sliding hernia representing a marked improvement from theprevious study of 2021. Mild esophageal dysmotility with transient hold-up to passage of a 13 mmbarium tablet at the GE junction, without demonstrable gastroesophagealreflux or significant mucosal pathology. Chronic cricopharyngeal bar. FLUOROSCOPY TIME: 1 minute 30 seconds NUMBER OF IMAGES: [id number] ATTESTATION: I, Lester Michel as teaching physician, have reviewed theimages for this case and if necessary edited the report originally createdby Ronnell Maurer. Shreyas Wilson MD [facility] Final Result documented in this encounter Visit Diagnoses Diagnosis Dysphagia, unspecified type- Primary Nausea and vomiting, unspecified vomiting type Dysphagia, unspecified type Nausea and vomiting, unspecified vomiting type documented in this encounter Additional Health Concerns Assessment Noted Time PHQ-9 Depression Total Score: 4 10/29/19 1:54 PM EST PHQ-2 Depression Total Score: 2 10/29/19 1:54 PM EST documented as of this encounter Care Teams Medical Research Tech Relationship Specialty Start Date End Date Johann Hanson CNP [address] [place] [address], [address] [place] [address] PCP - General Family Medicine 02/11/21 Lester Hicks MD [address] [place] [address] Historical LMR Provider 07/28/17 Margaux Montanez MD [address] [place] [address], [address] [place] [address] [email or web address] Historical LMR Provider 07/28/17 Khang Kilgore MD [address] [place] [address], [address] [place] [address] Insurance Assigned Provider 01/12/24 Luis Ignacio DO [address] [facility], [address] [place] [address] Cardiology 06/28/22 06/16/24 Flo Esteban MD [address] [place] [address] [email or web address] Cardiothoracic Surgery 06/28/22 06/16/24 Neisha Pinto RN [address] [place] [address] [email or web address] iCMP Picker / Packer 02/26/23 06/10/25 Shreyas Wilson MD [address] [place] [address] Gastroenterology 06/17/24 Doretha Glynn MD 22 [facility] 3rd [place] [address] Endocrinology 06/17/24 Izzy Hackett [address] [place] [address] [email or web address] [facility] Community Slope Hoist Operator 09/11/24 09/11/24 Radha Pereira RN [address] [place] [address] iCMP Picker / PackerFranchise Development Manager 06/11/25 documented as of this encounter Additional Source Comments The information contained in this document represents components of the legal health record. It is not the complete legal health record.[facility]
--- OUTSIDE RECORDS SUMMARY | 2025-07-08 07:21 | XMS_ITS | Encounter Summary ---
Author Organization [facility] Address [address] [place] [address] [place] [address] Phone Care Team Providers Care Assistant Site Manager Name Role Phone Lester Hicks MD Unavailable Margaux Montanez MD Unavailable Johann Hanson CNP Primary Care Provider [phone] Khang Kilgore MD Unavailable Luis Ignacio DO Unavailable Flo Esteban MD Unavailable [phone] Dilan Rowland MD Unavailable [phone] Corby Prado MD Unavailable [phone] Neisha Pinto RN Unavailable [email or web address] Shreyas Wilson MD Unavailable [phone] Doretha Glynn MD Unavailable [phone] Izzy Hackett Unavailable [email or web address] Radha Pereira RN Unavailable [phone] Encounter Details Date Type Department Care Team (Late st Contact Info) Description 02/10/2022 Procedure Pass Echo Lab [place] [address] Social History Tobacco Use Types Packs/Day Years [...] high school, GED, job training, learning the [place] language, technical skills, or developing parenting [...] EDT Office Visit [facility] [place] [facility] Medicine [address] [place] [address] [place] [address] Johann Hanson CNP 22 [facility], [address] [place] [address] [email or web address] 07/23/2025 8:00 AM EDT Office Visit [facility] Rheumatology [address] [place] [address] Margaux Montanez MD [address] [place] [address], [address] [place] [address] [email or web address] 09/10/2025 9:00 AM EST Office Visit [facility] Gastroenterology Clinic 10 [place] [address] Unknown, [place], Shreyas Limon MD [address] [address] 09/21/2025 2:30 PM EST Office Visit [facility], Allergy and Critical Care Medicine 10 [facility] [place] [address] Lester Hicks MD [address] [place] [address] 10/13/2025 9:20 AM EST Office Visit [facility]in[facility] [address] [place] [address] Doretha Glynn MD [address] [place] [address] [address] [place] [address] [email or web address] 12/22/2025 8:30 AM EDT Office Visit [address] [place] [address] Johann Hanson, LONGITUDINAL FLOAT OPERATOR [address] [place] [address], [address] [place] [address] [email or web address] 06/30/2026 8:00 AM EDT Office Visit [address] [place] [address] Johann Hanson, LONGITUDINAL FLOAT OPERATOR [address] [place] [address], [address] [place] [address] [email or web address] documented as of this encounter Visit [...] documented as of this encounter Care Teams Assistant Site Manager Relationship Specialty Start Date End Date Johann Hanson CNP [address] [place] [address], [address] [place] [address] [email or web address] PCP - General Family Medicine 02/11/21 Lester Hicks MD [address] [place] [address] [email or web address] Historical LMR Provider 07/28/17 Margaux Montanez MD [address] [place] [address], [address] [place] [address] [email or web address] Historical LMR Provider 07/28/17 Khang Kilgore MD [address] [place] [address], [address] [place] [address] Insurance Assigned Provider 01/12/24 Luis Ignacio DO [address] [place] [address], [address] [place] [address] Cardiology 06/28/22 06/16/24 Flo Esteban MD [address] [place] [address] [place] [address] [email or web address] Cardiothoracic Surgery 06/28/22 06/16/24 Dilan Rowland MD [address] [place] [address], [address] [place] [address] Insurance Assigned Provider 07/15/22 08/13/22 Corby Prado MD [address] [place] [address], [address] [place] [address] [email or web address] Insurance Assigned Provider 08/13/22 09/16/22 Neisha Pinto RN [address] [place] [address], [address] [place] [address] [email or web address] Director Of Patient Financial Services 02/26/23 06/10/25 Shreyas Wilson MD [address] [place] [address] Gastroenterology 06/17/24 Doretha Glynn MD [address] [place] [address] 3rd [place] [address] Endocrinology 06/17/24 Izzy Hackett [address] [place] [address] [email or web address] iCMP Community Import/Export Freight Forwarder 09/11/24 09/11/24 Radha Pereira, RN [address] [place] [address] [email or web address] [facility] Director Of Patient Financial ServicesDesktop Analyst 06/11/25 documented as of this encounter Additional Source Comments The information contained in this document represents components of the legal health record. It is not the complete legal health record.[facility]
--- OUTSIDE RECORDS SUMMARY | 2025-07-08 07:21 | XMS_ITS | Encounter Summary ---
Author Organization [facility] Address [address] [place] [address] Phone Care Team Providers Care Insurance Defense Attorney Name Role Phone Lester Hicks MD Unavailable [phone] Margaux Montanez MD Unavailable Johann Hanson CNP Primary Care Provider [phone] Khang Kilgore MD Unavailable Luis Ignacio DO Unavailable [phone] Flo Esteban MD Unavailable [phone] Neisha Pinto RN Unavailable [email or web address] Shreysa Wilson MD Unavailable Doretha Glynn MD Unavailable [phone] Izzy Hackett Unavailable [email or web address] Radha Pereira RN Unavailable Encounter Details Date Type Department Care Team (Late st Contact Info) Description 12/07/2022 Procedure Pass [facility], Ct Scan - [address] [id number] Social History Tobacco Use Types Packs/Day Years [...] high school, GED, job training, learning the Surinamese language, technical skills, or developing parenting skills)? [...] 12/07/2022 9:18 AM Alise Hamilton, RN * [place] Suicide Severity Rating Scale (Screener/Recent Self-Report) Question Answer Date of Assessment Author 1. Wish to be (Past 1 Month) No 023 9:18 AM Alise Lindo, RN 2. Non-Specific Active Suici ronald Thoughts (Past 1 Month) No 12/07/2022 9:18 AM Alise Lindo, RN 6. Suicidal Behavior (Lifetime) No 3 9:18 AM EST Alise Martinez RN documented as of this encounter Plan of Treatment Upcoming Encounters Date Type Department Care Team (Late st Contact Info) Description 07/22/2025 1:30 PM EDT Office Visit [facility] Family Medicine [address] [place] [address] Johann Hanson CNP [address] [facility] [address] [place] [address] [email or web address] 07/23/2025 8:00 AM EDT Office Visit [facility] Rheumatology [address] [place] [address] Margaux Montanez MD [address] [place] [address], [address] [place] [address] [email or web address] 09/10/2025 9:00 AM EST Office Visit [facility] Gastroenterology Clinic 10 [place] [address] Unknown, Unknown, Shreyas Limon MD [address] [place] [address] 09/21/2025 2:30 PM EST Office Visit [facility] Pulmonary, Allergy and Critical Care Medicine 10 [facility] [place] [address] Lester Hicks MD [address] [place] [address] 10/13/2025 9:20 AM EST Office Visit [facility] [address] [place] [address] Doretha Glynn MD [address] [place] [address] [email or web address] 12/22/2025 8:30 AM EDT Office Visit [facility] [place] [address] [place] [address] Johann Hanson CNP [address] [place] [address] [email or web address] 06/30/2026 8:00 AM EDT Office Visit [facility] [place] [address] [place] [address] Johann Hanson CNP [address] [place] [address] [email or web address] documented as of this encounter Visit Diagnoses Not on filedocumented in this encounter Additional Health Concerns Infection Onset Date Last Indicated Resolved Time COVID-19 10/07/2023 10/07/2023 10/28/2023 1:21 AM EST Assessment Noted Time PHQ-2 Depression Total Score: 0 05/15/20 1:45 PM EDT documented as of this encounter Care Teams Insurance Defense Attorney Relationship Specialty Start Date End Date Johann Hanson CNP [address] [place] [address], [address] [place] [address] PCP - General Family Medicine 02/11/21 Lester Hicks MD [address] [place] [address] Historical LMR Provider 07/28/17 Margaux Montanez MD [address] [place] [address], [address] [place] [address] [email or web address] Historical LMR Provider 07/28/17 Khang Kilgore MD [address] [place] [address], [address] [place] [address] Insurance Assigned Provider 01/12/24 Luis Ignacio DO [address] [place] [address], [address] [place] [address] Cardiology 06/28/22 06/16/24 Flo Esteban MD [address] [place] [address] [email or web address] Cardiothoracic Surgery 06/28/22 06/16/24 Neisha Pinto RN [address] [place] [address] [email or web address] iCMP Animal Keeper Head 02/26/23 06/10/25 Shreyas Wilson MD [address] [place] [address] Gastroenterology 06/17/24 Doretha Glynn MD [address] [place] [address] [address] [place] [address] Endocrinology 06/17/24 Izzy Hackett [address] [place] [address] [email or web address] [facility] Heart[facility] Community Digital Forensic Examiner 09/11/24 09/11/24 Radha Pereira RN [address] [place] [address] iCMP Animal Keeper HeadNursing Support Worker 06/11/25 documented as of this encounter Additional Source Comments The information contained in this document represents components of the legal health record. It is not the complete legal health record.[facility]
--- OUTSIDE RECORDS SUMMARY | 2025-07-08 07:22 | XMS_ITS | Encounter Summary ---
Author Organization [facility] Address [address] [place] [address] [place] [address] Phone Care Team Providers Care Census Clerk Name Role Phone Lester Hicks MD Unavailable [phone] Margaux Montanez MD Unavailable [phone] Johann Hanson CNP Primary Care Provider [phone] Khang Kilgore MD Unavailable [phone] Luis Ignacio DO Unavailable Flo Esteban MD Unavailable [phone] Corby Prado MD Unavailable [phone] Neisha Pinto RN Unavailable [email or web address] Shreyas Wilson MD Unavailable Doretha Glynn MD Unavailable [phone] Izzy Hackett Unavailable [email or web address] Radha Pereira RN Unavailable [phone] Encounter Details Date Type Department Care Team (Late st Contact Info) Description 08/15/2022 Procedure Pass [facility], Ct Scan - [address] [id number] Social History Tobacco Use Types Packs/Day Years [...] high school, GED, job training, learning the Swiss language, technical skills, or developing parenting skills)? [...] Description 07/22/2025 1:30 PM EDT Office Visit [facility] Family Medicine [address] [place] [address] [place] [address] Johann Hanson, TIFFANIE [address] [facility], [address] [place] [address] [email or web address] 07/23/2025 8:00 AM EDT Office Visit [facility] Rheumatology [address] [place] [address] Margaux Montanez MD [address] [place] [address], [address] [place] [address] [email or web address] 09/10/2025 9:00 AM EST Office Visit [facility] Gastroenterology Clinic 10 [place] [address] Unknown, [place], Shreyas Limon MD [address] [address] 09/21/2025 2:30 PM EST Office Visit [facility] Pul[facility], Allergy and Critical Care Medicine 10 [facility] [place] [address] Lester Hicks MD [address] [place] [address] 2[address] [place] [address] 10/13/2025 9:20 AM EST Office Visit [facility] [address] [place] [address] [place] [address] Doretha Glynn MD [address] [place] [address] 3[address] [place] [address] [email or web address] 12/22/2025 8:30 AM EDT Office Visit [address] [place] [address] Johann Hanson, CAGE UNLOADER [address] [place] [address], [address] [place] [address] [email or web address] 06/30/2026 8:00 AM EDT Office Visit [address] [place] [address] Johann Hanson, CAGE UNLOADER [address] [place] [address], [address] [place] [address] [email or web address] documented as of this encounter Visit Diagnoses Not on filedocumented in this encounter Additional Health Concerns Infection Onset Date Last Indicated Resolved Time CoV-Presumed Comment:COVID-19 Added 10/12/2022 10/12/2022 10/13/2022 6:26 P M EST COVID-19 10/13/2022 10/13/2022 11/03/2022 1:21 AM EST COVID-19 10/07/2023 10/07/2023 10/28/2023 1:21 AM EST Assessment Noted Time PHQ-2 Depression Total Score: 0 05/15/20 1:45 PM EDT documented as of this encounter Care Teams Census Clerk Relationship Specialty Start Date End Date Johann Hanson CNP [address] [place] [address], [address] [place] [address] PCP - General Family Medicine 02/11/21 Lester Hicks MD [address] [place] [address] Historical LMR Provider 07/28/17 Margaux Montanez MD [address] [place] [address], [address] [place] [address] [email or web address] Historical LMR Provider 07/28/17 Khang Kilgore MD [address] [place] [address], [address] [place] [address] Insurance Assigned Provider 01/12/24 Luis Ignacio DO [address] [place] [address], [address] [place] [address] Cardiology 06/28/22 06/16/24 Flo Esteban MD [address] [place] [address] [place] [address] [email or web address] Cardiothoracic Surgery 06/28/22 06/16/24 Corby Prado MD [address] [place] [address], [address] [place] [address] Insurance Assigned Provider 08/13/22 09/16/22 Neisha Pinto RN [address] [place] [address], [address] [place] [address] [email or web address] iCMP Power Lineman 02/26/23 06/10/25 Shreyas Wilson MD [address] [place] [address] Gastroenterology 06/17/24 Doretha Glynn MD [address] [place] [address] [address] [place] [address] Endocrinology 06/17/24 Izzy Hackett [address] [place] [address] [email or web address] [facility] Community Teacher Vocational Training 09/11/24 09/11/24 Radha Pereira, RN [address] [place] [address] iCMP Power LinemanRecreational Therapy Technician 06/11/25 documented as of this encounter Additional Source Comments The information contained in this document represents components of the legal health record. It is not the complete legal health record.[facility]
--- OUTSIDE RECORDS SUMMARY | 2025-07-08 07:22 | XMS_ITS | Encounter Summary ---
Author Organization [facility] Address [address] [place] [address] [place] [address] Phone Care Team Providers Care Hog Man Name Role Phone Tricia Balderas DO Unavailable Lester Hicks MD Unavailable [phone] Margaux Montanez MD Unavailable Demario Floyd MD Unavailable Pam Benson MD Unavailable [phone] Adithya Campos BALLISTIC EXPERT Unavailable Beatriz Donaldson GLAZE MIXER Unavailable Beatriz Donaldson GLAZE MIXER Primary Care Provider Mamta Whitney DO Primary Care Provider [phone] Mamta Whitney DO Primary Care Provider [phone] Johann Hanson BALLISTIC EXPERT Primary Care Provider [phone] Khang Kilgore MD Unavailable uLis Ignacio DO Unavailable Flo Esteban MD Unavailable Dilan Rowland MD Unavailable [phone] Corby Prdao MD Unavailable [phone] Neisha Pinto RN Unavailable [email or web address] Shreyas Wilson MD Unavailable Doretha Glynn MD Unavailable [phone] Izzy Hackett Unavailable sami Radha Pereira RN Unavailable [phone] Encounter Details Date Type Department Care Team (Late st Contact Info) Description 11/12/2019 Ancillary Orders Virtual Department [address] [place] [address] Beatriz Donaldson, GLAZE MIXER [address] [place] [address] Breast screening Social History Tobacco Use Types [...] Office Visit [facility] Family Medicine [address] [place] [address] Johann Hanson, TIFFANIE [address] [place] [address], [address] [place] [address] [email or web address] 07/23/2025 8:00 AM EDT Office Visit [facility] Rheumatology [address] [place] [address] Margaux Montanez MD [address] [place] [address], [address] [place] [address] [email or web address] 09/10/2025 9:00 AM EST Office Visit [facility] Gastroenterology Clinic 10 [place] [address] Unknown, Unknown, Shreyas Limon MD [address] [address] 09/21/2025 2:30 PM EST Office Visit [facility] Pulmonary, Allergy and Critical Care Medicine 10 [facility] [place] [address] Lester Hicks MD [address] [place] [address] 10/13/2025 9:20 AM EST Office Visit [facility] [address] [place] [address] [place] [address] Doretha Glynn MD [address] [place] [address] [email or web address] 12/22/2025 8:30 AM EDT Office Visit [address] [place] [address] Johann Hanson, BALLISTIC EXPERT [address] [place] [address], [address] [place] [address] [email or web address] 06/30/2026 8:00 AM EDT Office Visit [address] [place] [address] Johann Hanson BALLISTIC EXPERT [address] [place] [address], [address] [place] [address] [email or web address] documented as of this encounter Visit Diagnoses Diagnosis Breast screening Breast screening, unspecified documented in this encounter Additional Health Concerns Infection Onset Date Last Indicated Resolved Time CoV-Presumed 05/27/2022 05/27/2022 06/17/2022 1:21 AM EDT CoV-Presumed Comment:COVID-19 Added 10/12/2022 10/12/2022 10/13/2022 6:26 P M EST COVID-19 10/13/2022 10/13/2022 11/03/2022 1:21 AM EST COVID-19 10/07/2023 10/07/2023 10/28/2023 1:21 AM EST documented as of this encounter Care Teams Hog Man Relationship Specialty Start Date End Date Beatriz Donaldson, GLAZE MIXER [address] [place] [address] PCP - General Family Medicine 10/04/17 04/11/20 Mamta Whitney DO [address] [place] [address] [email or web address] PCP - General Family Medicine 04/12/20 02/08/21 Mamta Whitney DO [address] [place] [address] [email or web address] PCP - General Family Medicine 02/10/21 02/10/21 Johann Hanson CNP 22 [facility], [address] [place] [address] [email or web address] PCP - General Family Medicine 02/11/21 Tricia Balderas DO 30 [place] [address] [email or web address] Historical LMR Provider 07/28/17 10/15/21 Lester Hicks MD [address] [place] [address] [email or web address] Historical LMR Provider 07/28/17 Margaux Montanez MD [address] [place] [address], [address] [place] [address] [email or web address] Historical LMR Provider 07/28/17 Demario Floyd MD [address] [place] [address] [email or web address] Historical LMR Provider 07/28/17 10/15/21 Pam Benson MD [address] [place] [address] [email or web address] Historical LMR Provider 07/28/17 10/15/21 Adithya Campos, BALLISTIC EXPERT [address] [place] [address] [email or web address] Historical LMR Provider 07/28/17 12/25/21 Beatriz Donaldson, GLAZE MIXER [address] [place] [address] Historical LMR Provider 07/28/17 04/11/20 Khang Kilgore MD [address] [place] [address], [address] [place] [address] [email or web address] Insurance Assigned Provider 01/12/24 Luis Ignacio DO [address] [place] [address], [address] [place] [address] Cardiology 06/28/22 06/16/24 Flo Esteban MD [address] [place] [address] [email or web address] Cardiothoracic Surgery 06/28/22 06/16/24 Dilan Rowland MD [address] [place] [address], [address] [place] [address] Insurance Assigned Provider 07/15/22 08/13/22 Corby Prado MD [address] [place] [address], [address] [place] [address] Insurance Assigned Provider 08/13/22 09/16/22 Neisha Pinto RN [address] [place] [address], [address] [place] [address] [email or web address] Furniture Salesperson 02/26/23 06/10/25 Shreyas Wilson MD [address] [place] [address] Gastroenterology 06/17/24 Doretha Glynn MD [address] [place] [address] 3rd [place] [address] Endocrinology 06/17/24 Izzy Hackett [address] [place] [address] [email or web address] [facility] Community Radiological Metallurgist 09/11/24 09/11/24 Radha Pereira, RANDI [address] [place] [phone] iCMP Furniture SalespersonComputer Application Developer 06/11/25 documented as of this encounter Additional Source Comments The information contained in this document represents components of the legal health record. It is not the complete legal health record.[facility]
--- OUTSIDE RECORDS SUMMARY | 2025-07-08 07:22 | XMS_ITS | Encounter Summary ---
Author Organization [facility] Address [address] [place] [address] Phone Care Team Providers Care Pediatric Dental Assistant Name Role Phone Lester Hicks MD Unavailable [phone] Margaux Montanez MD Unavailable Johann Hanson CNP Primary Care Provider [phone] Khang Kilgore MD Unavailable Luis Ignacio DO Unavailable Flo Esteban MD Unavailable [phone] Neisha Pinto RN Unavailable [email or web address] Shreyas Wilson MD Unavailable Doretha Glynn MD Unavailable [phone] Izzy Hackett Unavailable [email or web address] Radha Pereira RN Unavailable Encounter Details Date Type Department Care Team (Latest Contact Info) Description 09/07/2023 Transcribe Orders Virtual Department 30 [place] [address] Shreyas Wilson MD [address] [place] [phone] [email or web address] Gastroesophageal reflux disease, unspecified whether esophagitis present (Primary Dx); RUQ abdominal pain; Regurgitation of food; Nausea Social History Tobacco Use Types Packs/Day Years [...] high school, GED, job training, learning the Chinese language, technical skills, or developing parenting skills)? [...] housing situation today? I have vinicius ring 04/23/2023 How many times have you move [...] Description 07/22/2025 1:30 PM EDT Office Visit [facility] Family Medicine [address] [place] [address] [place] [address] Johann Hanson, INTERNET SALES ASSOCIATE 22 [facility], [address] [place] [address] [email or web address] 07/23/2025 8:00 AM EDT Office Visit [facility] Rheumatology [address] [place] [address] [place] [address] Margaux Montanez MD [address] [place] [address], [address] [place] [address] [email or web address] 09/10/2025 9:00 AM EST Office Visit [facility] Gastroenterology Clinic 10 [place] [address] Unknown, Unknown, Shreyas Limon MD [address] [place] [address] 09/21/2025 2:30 PM EST Office Visit [facility] Pulmonary, Allergy and Critical Care Medicine 10 [facility][1] [place] [address] Lester Hicks MD [address] [place] [address] 10/13/2025 9:20 AM EST Office Visit [facility] [address] [place] [address] [place] [address] Doretha Glynn MD [address] [address] [email or web address] 12/22/2025 8:30 AM EDT Office Visit [address] [place] [address] Johann Hanson CNP [address] [place] [address], [address] [place] [address] [email or web address] 06/30/2026 8:00 AM EDT Office Visit [address] [place] [address] Johann Hanson CNP [address] [place] [address], [address] [place] [address] [email or web address] documented as of this encounter Visit Diagnoses Diagnosis Gastroesophageal reflux disease, unspecified whether esophagitis present- Primary RUQ abdominal pain Abdominal pain, right upper quadrant Regurgitation of food Nausea Nausea alone documented in this encounter Additional Health Concerns Infection Onset Date Last Indicated Resolved Time COVID-19 10/07/2023 10/07/2023 10/28/2023 1:21 AM EST Assessment Noted Time PHQ-2 Depression Total Score: 0 04/23/20 23 3:25 PM EDT documented as of this encounter Care Teams Pediatric Dental Assistant Relationship Specialty Start Date End Date Johann Hanson CNP [address] [place] [address], [address] [place] [address] PCP - General Family Medicine 02/11/21 Lester Hicks MD [address] [place] [address] Historical LMR Provider 07/28/17 Margaux Montanez MD [address] [place] [address], [address] [place] [address] [email or web address] Historical LMR Provider 07/28/17 Khang Kilgore MD [address] [place] [address], [address] [place] [address] [email or web address] Insurance Assigned Provider 01/12/24 Luis Ignacio DO [address] [place] [address], [address] [place] [address] Cardiology 06/28/22 06/16/24 Flo Esteban MD [address] [place] [address] [email or web address] Cardiothoracic Surgery 06/28/22 06/16/24 Neisha Pinto RN [address] [place] [address] [email or web address] Clinical [email or web address] Assistant 02/26/23 06/10/25 Shreyas Wilson MD [address] [place] [address] Gastroenterology 06/17/24 Doretha Glynn MD [address] [place] [address] 3rd [place] [address] Endocrinology 06/17/24 Izzy Hackett [address] [place] [address] [email or web address] [facility] Community Manuscript Editor 09/11/24 09/11/24 Radha Pereira RN [address] [place] [address] [email or web address] iCMP Clinical Education AssistantEntry Level Software Developer 06/11/25 documented as of this encounter Additional Source Comments The information contained in this document represents components of the legal health record. It is not the complete legal health record.[facility]
--- OUTSIDE RECORDS SUMMARY | 2025-07-08 07:22 | XMS_ITS | Encounter Summary ---
Author Organization [facility] Address [address] [place] [address] Phone Care Team Providers Care Professor Of Family Medicine Name Role Phone Tricia Balderas DO Unavailable Lester Hicks MD Unavailable [phone] Margaux Montanez MD Unavailable Demario Floyd MD Unavailable Pam Benson MD Unavailable Adithya Campos TRAVEL REGISTERED NURSE NICU Unavailable Johann Hanson TRAVEL REGISTERED NURSE NICU Primary Care Provider [phone] Khang Kilgore MD Unavailable Luis Ignacio DO Unavailable Flo Esteban MD Unavailable [phone] Dilan Rowland MD Unavailable [phone] Corby Prado MD Unavailable [phone] Neisha Pinto RN Unavailable [email or web address] Shreyas Wilson MD Unavailable Doretha Glynn MD Unavailable [phone] Izzy Hackett Unavailable sami RandallRadha RANDI Unavailable Encounter Details Date Type Department Care Team (Late Contact Info) Description 02/22/2021 Procedure Pass [facility], [facility] [address] [place] [address] Social History Tobacco Use Types Packs/Day Years Used Date Smoking Tobacco: Never Smokeless Tobacco: Never Alcohol Use Standard Drinks/Week Comments No 0 (1 standard drink = 0.6 oz pur e alcohol) Child or Family Care Answer Date Record ed Do you have problems with on e of the following making it difficult for you to work, study, or receive health care? No 02/20/2021 Education Answer Date Recorded Are you interested in help w ith more adult education (for example, completing high school, GED, job training, learning the [place] language, technical skills, or developing parenting skills)? No 02/20/2021 Are you concerned about learning? Not on file 02/20/2021 Not on file 02/20/2021 Not on file 02/20/2021 Food Answer Date Recorded Within the past 6 months we worried whether our food would run out before we got money to buy more. Never True 02/20/2021 Within the past 6 months the food we bought just didn't last and we didn't have enough money to get more. Never True Paying for Meds Answer Date Recorded Do you have trouble paying for medicines? No 02/20/2021 Paying Utility Bills Answer Date Record ed Do you have trouble paying your heating or elect ricity bill? No 02/20/2021 Transportation Answer Date Recorded Has the lack of transportati on kept you from medical appointments or from getting medications? No 02/20/2021 Comments No Sex and Gender Information Value Date Recorded Sex Assigned at Female 06/26/2019 4:54 PM EDT Legal Sex Female 5:30 PM EST Gender Identity Female 06/26/2019 4:54 PM EDT Sexual Orientation Straight 06/26/2019 4: 54 PM EDT documented as of this encounter Plan of Treatment Upcoming Encounters Date Type Department Care Team ([facility] Contact Info) Description 07/22/2025 1:30 PM EDT Office Visit [address] [place] [address] Johann Hanson, TRAVEL REGISTERED NURSE NICU [address] [place] [address], [address] [place] [address] [email or web address] 07/23/2025 8:00 AM EDT Office Visit [facility] Rheumatology [address] [place] [address] Margaux Montanez MD [address] [place] [address], [address] [place] [address] [email or web address] 09/10/2025 9:00 AM EST Office Visit [facility] Gastroenterology Clinic [address] [place] [address] Unknown, [place], Shreyas Limon MD [address] [place] [address] 09/21/2025 2:30 PM EST Office Visit [facility] Pulmonary, Allergy and Critical Care Medicine [address] [place] [address] Lester Hicks MD [address] [place] [address] 10/13/2025 9:20 AM EST Office Visit [facility] Endocrinology [address] [place] [address] [place] [address] Doretha Glynn MD [address] [place] [address] [email or web address] 12/22/2025 8:30 AM EDT Office Visit [address] [place] [address] Johann Hanson, TRAVEL REGISTERED NURSE NICU [address] [place] [address], [address] [place] [address] [email or web address] 06/30/2026 8:00 AM EDT Office Visit [facility] [address] [place] [address] Johann Hanson CNP [address] [facility], [address] [place] [address] [email or web address] documented as of this encounter [...] of this encounter Care Teams Professor Of Family Medicine Relationship Specialty Start Date End Date Johann Hanson CNP [address] [facility], [address] [place] [address] PCP - General Family Medicine 02/11/21 Tricia Balderas DO [address] [place] [address] [email or web address] Historical LMR Provider 07/28/17 10/15/21 Lester Hicks MD [address] [place] [address] [email or web address] Historical LMR Provider 07/28/17 Margaux Montanez MD [address] [facility], [address] [place] [address] [email or web address] Historical LMR Provider 07/28/17 Demario Floyd MD [address] [place] [address] [email or web address] Historical LMR Provider 07/28/17 2 Pam Benson MD [address] [place] [address], [address] [place] [address] [email or web address] Historical LMR Provider 07/28/17 Adithya Campos CNP [address] [place] [address], [address] [place] [address] [email or web address] Historical LMR Provider 07/28/17 12/25/21 Khang Kilgore MD [address] [place] [address], [address] [place] [address] [email or web address] Insurance Assigned Provider 01/12/24 Luis Ignacio DO [address] [place] [address], [address] [place] [address] Cardiology 06/28/22 06/16/24 Flo Esteban MD [address] [place] [address] [email or web address] Cardiothoracic Surgery 06/28/22 06/16/24 Dilan Rowland MD [address] [place] [address], [address] [place] [address] Insurance Assigned Provider 07/15/22 08/13/22 Corby Prado MD [address] [place] [address], [address] [place] [address] [email or web address] Insurance Assigned Provider 08/13/22 09/16/22 Neisha Pinto RN [address] [place] [address], [address] [place] [address] [email or web address] Editorial Assistant 02/26/23 06/10/25 Shreyas Wilson MD [address] [place] [address] Gastroenterology 06/17/24 Doretha Glynn MD [address] [place] [address] Endocrinology 06/17/24 Izzy Hackett [address] [place] [address] [email or web address] [facility] Community Yarn Twister 09/11/24 09/11/24 Radha Pereira, RN [address] [place] [address] [email or web address] [facility] Editorial AssistantFoxer 06/11/25 documented as of this encounter Additional Source Comments The information contained in this document represents components of the legal health record. It is not the complete legal health record.[facility]
--- OUTSIDE RECORDS SUMMARY | 2025-07-08 07:23 | XMS_ITS | Encounter Summary ---
Author Organization [facility] Address [address] [place] [address] [place] [address] Phone Care Team Providers Care Radio Operator Ground Name Role Phone Tricia Balderas DO Unavailable Lester Hicks MD Unavailable [phone] Margaux Montanez MD Unavailable Demario Floyd MD Unavailable Pam Benson MD Unavailable [phone] Adithya Campos THREADING MACHINE SETTER Unavailable Beatriz Donaldson QUALITY CONTROL TESTER Unavailable Beatriz Donaldson QUALITY CONTROL TESTER Primary Care Provider Mamta Whitney DO Primary Care Provider [phone] Mamta Whitney DO Primary Care Provider [phone] Johann Hanson THREADING MACHINE SETTER Primary Care Provider [phone] Khang Kilgore MD Unavailable Luis Ignacio DO Unavailable Flo Esteban MD Unavailable [phone] Dilan Rowland MD Unavailable [phone] Corby Prado MD Unavailable [phone] Neisha Pinto RN Unavailable [email or web address] Shreyas Wilson MD Unavailable Doretha Glynn MD Unavailable [phone] Izzy Hackett Unavailable sami Radha Pereira RN Unavailable [phone] Encounter Details Date Type Department Care Team (Late st Contact Info) Description 01/10/2019 Procedure Pass [facility] Cardiovascular [facility] Interventional Radiology [address] [place] [address] Social History Tobacco Use Types Packs/Day Years [...] Description 07/22/2025 1:30 PM EDT Office Visit [facility] Family Medicine [address] [place] [address] [place] [address] Johann Hanson, TIFFANIE [address] [facility], [address] [place] [address] [email or web address] 07/23/2025 8:00 AM EDT Office Visit [facility] Rheumatology [address] [place] [address] [place] [address] Margaux Montanez MD [address] [place] [address], [address] [place] [address] [email or web address] 09/10/2025 9:00 AM EST Office Visit [facility] Gastroenterology Clinic 10 [place] [address] Unknown, Unknown, Shreyas Limon MD 10 [facility] 2 [place] [address] 09/21/2025 2:30 PM EST Office Visit [facility] Pulmonary, Allergy and Critical Care Medicine 10 [facility] [place] [address] Lester Hicks MD [address] [address] 10/13/2025 9:20 AM EST Office Visit [facility] End[facility]inology [address] [place] [address] [place] [address] Doretha Glynn MD [address] [place] [address] [email or web address] 12/22/2025 8:30 AM EDT Office Visit [address] [place] [address] Johann Hanson, THREADING MACHINE SETTER [address] [place] [address], [address] [place] [address] [email or web address] 06/30/2026 8:00 AM EDT Office Visit [address] [place] [address] Johann Hanson, THREADING MACHINE SETTER [address] [place] [address], [address] [place] [address] [email or web address] documented as of this encounter Visit Diagnoses Not on filedocumented in this encounter Additional Health Concerns Infection Onset Date Last Indicated Resolved Time CoV-Presumed 05/27/2022 05/27/2022 06/17/2022 1:21 AM EDT CoV-Presumed Comment:COVID-19 Added 10/12/2022 10/12/2022 10/13/2022 6:26 P M EST COVID-19 10/13/2022 10/13/2022 11/03/2022 1:21 AM EST COVID-19 10/07/2023 10/07/2023 10/28/2023 1:21 AM EST documented as of this encounter Care Teams Radio Operator Ground Relationship Specialty Start Date End Date Beatriz Donaldson NP [address] [place] [address] PCP - General Family Medicine 10/04/17 04/11/20 Mamta Whitney DO [address] [place] [address] [email or web address] PCP - General Family Medicine 04/12/20 02/08/21 Mamta Whitney DO [address] [place] [address] @[email or web address] PCP - General Family Medicine 02/10/21 02/10/21 Johann Hanson CNP 22 [facility], [address] [place] [address] [email or web address] PCP - General Family Medicine 02/11/21 Tricia Balderas DO [address] [place] [address] [email or web address] Historical LMR Provider 07/28/17 10/15/21 Lester Hicks MD [address] [place] [address] [email or web address] Historical LMR Provider 07/28/17 Margaux Montanez MD [address] [place] [address], [address] [place] [address] [email or web address] Historical LMR Provider 07/28/17 Demario Floyd MD [address] [place] [address] [email or web address] Historical LMR Provider 07/28/17 10/15/21 Pam Benson MD [address] [place] [address] [email or web address] Historical LMR Provider 07/28/17 10/15/21 Adithya Campos THREADING MACHINE SETTER [address] [place] [address] [email or web address] Historical LMR Provider 07/28/17 12/25/21 Beatriz Donaldson NP [address] [place] [address] Historical LMR Provider 07/28/17 04/11/20 Khang Kilgore MD [address] [place] [address], [address] [place] [address] [email or web address] Insurance Assigned Provider 01/12/24 Luis Ignacio DO [address] [place] [address], [address] [place] [address] Cardiology 06/28/22 06/16/24 Flo Esteban MD [address] [place] [address] [place] [address] [email or web address] [email or web address] Surgery 06/28/22 06/16/24 Dilan Rowland MD [address] [place] [address], [address] [place] [address] [email or web address] Insurance Assigned Provider 07/15/22 08/13/22 Corby Prado MD [address] [place] [address], [address] [place] [address] [email or web address] Insurance Assigned Provider 08/13/22 09/16/22 Neisha Pinto RN [address] [place] [address], [address] [place] [address] [email or web address] Rn Procedure 02/26/23 06/10/25 Shreyas Wilson MD [address] [place] [address] [email or web address] Gastroenterology 06/17/24 Doretha Glynn MD [address] [place] [address] 3rd [place] [address] Endocrinology 06/17/24 Izzy Hackett [address] [place] [address] [email or web address] [facility] Community Pooling Operator 09/11/24 09/11/24 Radha Pereira, RANDI [address] [place] [address] [email or web address] Rn ProcedureTest Department Helper 06/11/25 documented as of this encounter Additional Source Comments The information contained in this document represents components of the legal health record. It is not the complete legal health record.[facility]
--- OUTSIDE RECORDS SUMMARY | 2025-07-08 07:23 | XMS_ITS | Encounter Summary ---
Author Organization [facility] Address [address] [place] [address] Phone Care Team Providers Care Slubber Hand Name Role Phone Lester Hicks MD Unavailable [phone] Margaux Montanez MD Unavailable Johann Hanson CNP Primary Care Provider [phone] Khang Kilgore MD Unavailable Neisha Pinto RN Unavailable [email or web address] Shreyas Wilson MD Unavailable Doretha Glynn MD Unavailable [phone] Izzy Hackett Unavailable [email or web address] Radha Pereira RN Unavailable Encounter Details Date Type Department Care Team (Late st Contact Info) Description 06/17/2024 Procedure Pass [address] [address] Social History Tobacco Use Types Packs/Day Years [...] high school, GED, job training, learning the [place] language, technical skills, or developing parenting [...] Description 07/22/2025 1:30 PM EDT Office Visit [facility] Family Medicine [address] [place] [address] [place] [address] Johann Hanson CNP [address] [facility], [address] [place] [address] [email or web address] 07/23/2025 8:00 AM EDT Office Visit [facility] Rheumatology [address] [place] [address] [place] [address] Margaux Montanez MD [address] [place] [address], [address] [place] [address] [email or web address] 09/10/2025 9:00 AM EST Office Visit [facility] Gastroenterology Clinic 10 [place] [address] Unknown, Unknown, Shreyas Limon MD [address] [place] [address] 09/21/2025 2:30 PM EST Office Visit [facility] Pulmonary, Allergy and Critical Care Medicine 10 [place] [address] Lester Hicks MD [address] [place] [address] 10/13/2025 9:20 AM EST Office Visit [facility] Endocrinology [address] [place] [address] Doretha Glynn MD [address] [place] [address] [email or web address] 12/22/2025 8:30 AM EDT Office Visit [address] [place] [address] Johann Hanson CNP [address] [place] [address], [address] [place] [address] [email or web address] 06/30/2026 8:00 AM EDT Office Visit [address] [place] [address] Johann Hanson CNP [address] [place] [address], [address] [place] [address] [email or web address] documented as of this encounter Visit Diagnoses Not on filedocumented in this encounter Additional Health Concerns Assessment Noted Time PHQ-9 Depression Total Score: 4 10/29/19 24 1:54 PM EST PHQ-2 Depression Total Score: 0 06/23/20 25 12:32 PM EDT documented as of this encounter Care Teams Slubber Hand Relationship Specialty Start Date End Date Johann Hanson CNP [address] [place] [address], [address] [place] [address] PCP - General Family Medicine 02/11/21 Lester Hicks MD [address] [place] [address] Historical LMR Provider 07/28/17 Margaux Montanez MD [address] [place] [address], [address] [place] [address] [email or web address] Historical LMR Provider 07/28/17 Khang Kilgore MD [address] [place] [address], [address] [place] [address] [email or web address] Insurance Assigned Provider 01/12/24 Neisha Pinto RN [address] [place] [address], [address] [place] [address] [email or web address] 02/26/23 06/10/25 Shreyas Wilson MD [address] [place] [address] [email or web address] Gastroenterology 06/17/24 Doretha Glynn MD [address] [place] [address] [email or web address] Endocrinology 06/17/24 Izzy Hackett [address] [place] [address] [email or web address] [facility] Community Marker Machine 09/11/24 09/11/24 Radha Pereira RN [address] [place] [address] [email or web address] [facility] Bog WorkerMiter Operator 06/11/25 documented as of this encounter Additional Source Comments The information contained in this document represents components of the legal health record. It is not the complete legal health record.[facility]
--- OUTSIDE RECORDS SUMMARY | 2025-07-08 07:23 | XMS_ITS | Encounter Summary ---
Author Organization [facility] Address [address] [place] [address] [place] [address] Phone Care Team Providers Care Temporary Data Entry Clerk Name Role Phone Tricia Balderas DO Unavailable Lester Hicks MD Unavailable [phone] Margaux Montanez MD Unavailable Demario Floyd MD Unavailable Pam Benson MD Unavailable [phone] Adithya Campos RUG CLIPPER Unavailable Beatriz Donaldson FAMILY SOCIOLOGIST Unavailable Beatriz Donaldson FAMILY SOCIOLOGIST Primary Care Provider Mamta Whitney DO Primary Care Provider [phone] Mamta Whitney DO Primary Care Provider [phone] Johann Hanson RUG CLIPPER Primary Care Provider [phone] Khang Kilgore MD Unavailable Luis Ignacio DO Unavailable Flo Esteban MD Unavailable [phone] Dilan Rowland MD Unavailable [phone] Corby Prado MD Unavailable [phone] Neisha Pinto RN Unavailable [email or web address] Shreyas Wilson MD Unavailable Doretha Glynn MD Unavailable [phone] Izzy Hackett Unavailable [email or web address] Radha Pereira RN Unavailable Encounter Details Date Type Department Care Team (Late Contact Info) Description 05/29/2019 Telephone [facility] Pulmonary, Allergy and Critical Care Medicine [address] [place] [address] Aishwarya Vasquez MD [address] [place] [address] [email or web address] Social History Tobacco Use Types Packs/Day Years [...] Upcoming Encounters Date Type Department Care Team ([facility] Contact Info) Description 07/22/2025 1:30 PM EDT Office Visit [address] [place] [address] Johann Hanson CNP [address] [place] [address], [address] [place] [address] [email or web address] 07/23/2025 8:00 AM EDT Office Visit [facility] Rheumatology [address] [place] [address] [place] [address] Margaux Montanez MD [address] [place] [address], [address] [place] [address] [email or web address] 09/10/2025 9:00 AM EST Office Visit [facility] Gastroenterology Clinic 10 [place] [address] Unknown, Unknown, Shreyas Limon MD [address] [address] 09/21/2025 2:30 PM EST Office Visit [facility] Pulmonary, Allergy and Critical Care Medicine 10 [place] [address] Lester Hicks MD [address] [place] [address] 10/13/2025 9:20 AM EST Office Visit [facility]ology [address] [place] [address] Doretha Glynn MD [address] [place] [address] [email or web address] 12/22/2025 8:30 AM EDT Office Visit [address] [place] [address] Johann Hanson CNP [address] [place] [address], [address] [place] [address] [email or web address] 06/30/2026 8:00 AM EDT Office Visit [address] [place] [address] Johann Hanson RUG CLIPPER [address] [place] [address], [address] [place] [address] [email or web address] documented as of this encounter Visit Diagnoses Not on filedocumented in this encounter Additional Health Concerns Infection Onset Date Last Indicated Resolved Time CoV-Presumed 05/27/2022 05/27/2022 06/17/2022 1:21 AM EDT CoV-Presumed Comment:COVID-19 Added 10/12/2022 10/12/2022 10/13/2022 6:26 P M EST COVID-19 10/13/2022 10/13/2022 11/03/2022 1:21 AM EST COVID-19 10/07/2023 10/07/2023 10/28/2023 1:21 AM EST documented as of this encounter Care Teams Temporary Data Entry Clerk Relationship Specialty Start Date End Date Beatriz Donaldson NP [address] [place] [address] PCP - General Family Medicine 10/04/17 04/11/20 Mamta Whitney DO [address] [place] [address] [email or web address] PCP - General Family Medicine 04/12/20 02/08/21 Mamta Whitney DO [address] [place] [address] [email or web address] PCP - General Family Medicine 02/10/21 02/10/21 Johann Hanson CNP 22 [facility] [place] [address] [email or web address] PCP - General Family Medicine 02/11/21 Tricia Balderas DO [address] [place] [address] [email or web address] Historical LMR Provider 07/28/17 10/15/21 Lester Hicks MD [address] [place] [address] [email or web address] Historical LMR Provider 07/28/17 Margaux Montanez MD [address] [place] [address], [address] [place] [address] [email or web address] Historical LMR Provider 07/28/17 Demario Floyd MD [address] [place] [address] [email or web address] Historical LMR Provider 07/28/17 10/15/21 Pam Benson MD [address] [place] [address] [email or web address] Historical LMR Provider 07/28/17 10/15/21 Adithya Campos, RUG CLIPPER [address] [place] [address] [email or web address] Historical LMR Provider 07/28/17 12/25/21 Beatriz Donaldson, FAMILY SOCIOLOGIST [address] [place] [address] Historical LMR Provider 07/28/17 04/11/20 Khang Kilgore MD [address] [place] [address] [address] [place] [address] [email or web address] Insurance Assigned Provider 01/12/24 Luis Ignacio DO [address] [place] [address], [address] [place] [address] Cardiology 06/28/22 06/16/24 Flo Esteban MD [address] [place] [address] [place] [address] [email or web address] [email or web address] Surgery 06/28/22 06/16/24 Dilan Rowland MD [address] [place] [address], [address] [place] [address] [email or web address] Insurance Assigned Provider 07/15/22 08/13/22 Corby Prado MD [address] [place] [address], [address] [place] [address] Insurance Assigned Provider 08/13/22 09/16/22 Neisha Pinto RN [address] [place] [address], [address] [place] [address] [email or web address] Physical Therapist 02/26/23 06/10/25 Shreyas Wilson MD [address] [place] [address] [email or web address] Gastroenterology 06/17/24 Doretha Glynn MD [address] [place] [address] 3rd [place] [address] [email or web address] Endocrinology 06/17/24 Izzy Hackett [address] [place] [address] [email or web address] [facility] Community Director Marketing Analytics 09/11/24 09/11/24 Radha Pereira RN [address] [place] [phone] [email or web address] iCMP Travel Physical TherapistManaged Care Analyst 06/11/25 documented as of this encounter Additional Source Comments The information contained in this document represents components of the legal health record. It is not the complete legal health record.[facility]
--- OUTSIDE RECORDS SUMMARY | 2025-07-08 07:23 | XMS_ITS | Encounter Summary ---
Author Organization [facility] Address [address] [place] [address] Phone Care Team Providers Care Stave And Bolt Equalizer Name Role Phone Lester Hicks MD Unavailable [phone] Margaux Montanez MD Unavailable Johann Hanson CNP Primary Care Provider [phone] Khang Kilgore MD Unavailable Neisha Pinto RN Unavailable [email or web address] Shreyas Wilson MD Unavailable [phone] Doretha Glynn MD Unavailable [phone] Radha Pereira RN Unavailable [phone] Reason for Visit * Reason Comments Medication Refill Encounter Details Date Type Department Care Team (Late st Contact Info) Description 06/05/2025 Refill [facility] Rheumatology [address] [place], [place] [phone] Margaux Montanez MD [address] [facility], [address] [place] [address] [email or web address] Medication Refill Social History Tobacco Use Types Packs/Day Years [...] high school, GED, job training, learning the Afghan language, technical skills, or developing parenting skills)? [...] PM EDT documented as of this encounter Progress Notes * Viviana Ireland MA - 06/05/2025 8:53 AM EDT Last fill for 28 days 06/05/2025 documented in this encounter Plan of Treatment Upcoming Encounters Date Type Department Care Team (Late st Contact Info) Description 07/22/2025 1:30 PM EDT Office Visit [facility] Family Medicine [address] [place] [address] [place] [address] Johann Hanson CNP [address] [place] [address], [address] [place] [address] [email or web address] 07/23/2025 8:00 AM EDT Office Visit [facility] Rheumatology [address] [place] [address] [place] [address] Margaux Montanez MD [address] [place] [address], [address] [place] [address] [email or web address] 09/10/2025 9:00 AM EST Office Visit [facility] Gastroenterology Clinic [address] [place] [address] Unknown, [place], Shreyas Limon MD [address] [place] [address] 09/21/2025 2:30 PM EST Office Visit [facility] Pulmonary, Allergy and Critical Care Medicine [address] [place] [address] Lester Hicks MD [address] [place] [address] 10/13/2025 9:20 AM EST Office Visit [facility] [address] [place] [address] [place] [address] Doretha Glynn MD [address] [place] [address] [email or web address] 12/22/2025 8:30 AM EDT Office Visit [address] [place] [address] Johann Hanson CNP [address] [place] [address], [address] [place] [address] [email or web address] 06/30/2026 8:00 AM EDT Office Visit [address] [place] [address] Johann Hanson CNP [address] [place] [address], [address] [place] [address] [email or web address] documented as of this encounter Visit Diagnoses Diagnosis Inflammatory arthritis Unspecified inflammatory polyarthropathy documented in this encounter Additional Health Concerns Assessment Noted Time PHQ-9 Depression Total Score: 4 10/29/19 1:54 PM EST PHQ-2 Depression Total Score: 0 06/10/20 9:22 AM EDT documented as of this encounter Care Teams Stave And Bolt Equalizer Relationship Specialty Start Date End Date Johann Hanson CNP [address] [place] [address], [address] [place] [address] PCP - General Family Medicine 02/11/21 Lester Hicks MD [address] [place] [address] [email or web address] Historical LMR Provider 07/28/17 Margaux Montanez MD [address] [place] [address], [address] [place] [address] [email or web address] Historical LMR Provider 07/28/17 Khang Kilgore MD [address] [place] [address], [address] [place] [address] [email or web address] Insurance Assigned Provider 01/12/24 Neisha Pinto RN [address] [place] [address], [address] [place] [address] [email or web address] iCMP Telescope Repairer 02/26/23 06/10/25 Shreyas Wilson MD [address] [place] [address] [email or web address] Gastroenterology 06/17/24 Doretha Glynn MD [address] [place] [address] [email or web address] Endocrinology 06/17/24 Radha Pereira RN [address] [place] [address] [email or web address] iCMP Telescope RepairerCad Manager 06/11/25 documented as of this encounter Additional Source Comments The information contained in this document represents components of the legal health record. It is not the complete legal health record.[facility]
--- OUTSIDE RECORDS SUMMARY | 2025-07-08 07:23 | XMS_ITS | Encounter Summary ---
Author Organization [facility] Address [address] [place] [address] Phone Care Team Providers Care Corporate Traffic Manager Name Role Phone Lester Hicks MD Unavailable [phone] Margaux Montanez MD Unavailable [phone] Johann Hanson CNP Primary Care Provider [phone] Khang Kilgore MD Unavailable Luis Ignacio DO Unavailable Flo Esteban MD Unavailable [phone] Neisha Pinto RN Unavailable [email or web address] Shreyas Wilson MD Unavailable Doretha Glynn MD Unavailable [phone] Izzy Hackett Unavailable [email or web address] Radha Pereira RN Unavailable [phone] Encounter Details Date Type Department Care Team (Late st Contact Info) Description 10/12/2022 Procedure Pass [facility] PERIOPERATIVE DEPT [address] [place] [address] Social History Tobacco Use Types [...] high school, GED, job training, learning the Cook Islander language, technical skills, or developing parenting [...] 07/22/2025 1:30 PM EDT Office Visit [facility] Family Medicine [address] [place] [address] [place] [address] Johann Hanson, TIFFANIE [address] [facility], [address] [place] [address] [email or web address] 07/23/2025 8:00 AM EDT Office Visit [facility] Rheumatology [address] [place] [address] Margaux Montanez MD [address] [place] [address], [address] [place] [address] [email or web address] 09/10/2025 9:00 AM EST Office Visit [facility] Gastroenterology Clinic 10 [place] [address] Unknown, Unknown, Shreyas Limon MD [address] [address] 09/21/2025 2:30 PM EST Office Visit [facility] Pulmonary, Allergy and Critical Care Medicine 10 [place] [address] Lester Hicks MD [address] [place] [address] 2[address] [place] [address] 10/13/2025 9:20 AM EST Office Visit [facility] [address] [place] [address] [place] [address] Doretha Glynn MD [address] [place] [address] [address] [place] [address] [email or web address] 12/22/2025 8:30 AM EDT Office Visit [address] [place] [address] Johann Hanson, METALLIC YARN SLITTING MACHINE OPERATOR [address] [place] [address], [address] [place] [address] [email or web address] 06/30/2026 8:00 AM EDT Office Visit [address] [place] [address] Johann Hanson, METALLIC YARN SLITTING MACHINE OPERATOR [address] [place] [address], [address] [place] [address] [email or web address] documented as of this encounter [...] documented as of this encounter Care Teams Corporate Traffic Manager Relationship Specialty Start Date End Date Johann Hanson CNP [address] [place] [address], [address] [place] [address] PCP - General Family Medicine 02/11/21 Lester Hicks MD [address] [place] [address] Historical LMR Provider 07/28/17 Margaux Montanez MD [address] [place] [address], [address] [place] [address] [email or web address] Historical LMR Provider 07/28/17 Khang Kilgore MD [address] [place] [address], [address] [place] [address] Insurance Assigned Provider 01/12/24 Luis Ignacio DO [address] [place] [address], [address] [place] [address] Cardiology 06/28/22 06/16/24 Flo Esteban MD [address] [place] [address] [email or web address] Cardiothoracic Surgery 06/28/22 06/16/24 Neisha Pinto RN [address] [place] [address] [email or web address] iCMP Transmission Assembler 02/26/23 06/10/25 Shreyas Wilson MD [address] [place] [address] Gastroenterology 06/17/24 Doretha Glynn MD [address] [place] [address] Endocrinology 06/17/24 Izzy Hackett [address] [place] [address] [email or web address] [facility] Community Powerplant Operator 09/11/24 09/11/24 Radha Pereira RN [address] [place] [address] [email or web address] iCMP Transmission AssemblerMotor Vehicle Examiner 06/11/25 documented as of this encounter Additional Source Comments The information contained in this document represents components of the legal health record. It is not the complete legal health record.[facility]
--- OUTSIDE RECORDS SUMMARY | 2025-07-08 07:23 | XMS_ITS ---
Author Organization [facility] Address [address] [place] [address] Phone Care Team Providers Care Search Director Name Role Phone Lester Hicks MD Unavailable [phone] Margaux Montanez MD Unavailable Johann Hanson CNP Primary Care Provider [phone] Khang Kilgore MD Unavailable Shreyas Wilson MD Unavailable [phone] Doretha Glynn MD Unavailable [phone] Radha Pereira RN Unavailable Care Management Status:Enrolled (Active) Start date:10/23/2023 Enrollment date:10/23/2023 Current support & services provided:[facility] Related social drivers of health:Housing Stability, Child or Family Care, Education, Food, Unemployment, Paying for Meds, Paying Utility Bills, Transportation, Digital Access, SNAP/WIC Case Team Name Relationship Phone Email Radha Pereira RN Registered Nurse(Responsible Staff) [phone] Continued Care and Services Coordination
--- OUTSIDE RECORDS SUMMARY | 2025-07-08 07:23 | XMS_ITS | Encounter Summary ---
Author Organization [facility] Address [address] [place] [address] Phone Care Team Providers Care Compensation Business Partner Name Role Phone Lester Hicks MD Unavailable [phone] Margaux Montanez MD Unavailable Johann Hanson CNP Primary Care Provider [phone] Khang Kilgore MD Unavailable Shreyas Wilson MD Unavailable Doretha Glynn MD Unavailable [phone] Radha Pereira RN Unavailable Encounter Details Date Type Department Care Team (Late st Contact Info) Description 07/06/2025 Enrollment [facility] [address] [place] [address] Social History Tobacco Use Types Packs/Day Years [...] high school, GED, job training, learning the Azerbaijani language, technical skills, or developing parenting skills)? [...] 1:30 PM EDT Office Visit [facility] [address] [place] [address] Johann Hanson CNP [address] [facility], [address] [place] [address] [email or web address] 07/23/2025 8:00 AM EDT Office Visit [facility] Rheumatology [address] [place] [address] Magraux Montanez MD [address] [place] [address], [address] [place] [address] [email or web address] 09/10/2025 9:00 AM EST Office Visit [facility] Gastroenterology Clinic 10 [place] [address] Unknown, Unknown, Shreyas Limon MD [address] [place] [address] 09/21/2025 2:30 PM EST Office Visit [facility] Pulmonary, Allergy and Critical Care Medicine 10 [place] [address] Lester Hicks MD [address] [place] [address] 10/13/2025 9:20 AM EST Office Visit [facility] [address] [place] [address] Doretha Glynn MD [address] [place] [address] [address] [place] [address] [email or web address] 12/22/2025 8:30 AM EDT Office Visit [address] [place] [address] Johann Hanson CNP [address] [facility], [address] [place] [address] [email or web address] 06/30/2026 8:00 AM EDT Office Visit [facility] [address] [place] [address] Johann Hanson CNP [address] [place] [address], [address] [place] [address] [email or web address] documented as of this encounter Visit Diagnoses Not on filedocumented in this encounter Additional Health Concerns Assessment Noted Time PHQ-9 Depression Total Score: 4 10/29/19 24 1:54 PM EST PHQ-2 Depression Total Score: 0 06/23/20 25 12:32 PM EDT documented as of this encounter Care Teams Compensation Business Partner Relationship Specialty Start Date End Date Johann Hanson CNP [address] [place] [address], [address] [place] [address] PCP - General Family Medicine 02/11/21 Lester Hicks MD [address] [place] [address] Historical LMR Provider 07/28/17 Margaux Montanez MD [address] [place] [address], [address] [place] [address] Historical LMR Provider 07/28/17 Khang Kilgore MD [address] [place] [address], [address] [place] [address] [email or web address] Insurance Assigned Provider 01/12/24 Shreyas Wilson MD [address] [place] [address] Gastroenterology 06/17/24 Doretha Glynn MD [address] [place] [address] 3rd [place] [address] Endocrinology 06/17/24 Radha Pereira, RN [address] [place] [address] [email or web address] iCMP Motor Hotel ManagerCro 06/11/25 documented as of this encounter Additional Source Comments The information contained in this document represents components of the legal health record. It is not the complete legal health record.[facility]
--- OUTSIDE RECORDS SUMMARY | 2025-07-08 07:23 | XMS_ITS | Encounter Summary ---
Author Organization [facility] Address [address] [place] [address] [place] [address] Phone Care Team Providers Care Lead Etl Developer Name Role Phone Lester Hicks MD Unavailable [phone] Margaux Montanez MD Unavailable Johann Hanson CNP Primary Care Provider [phone] Khang Kilgore MD Unavailable [phone] Shreyas Wilson MD Unavailable [phone] Doretha Glynn MD Unavailable [phone] Radha Pereira RN Unavailable [phone] Reason for Visit * Reason Comments Medication Refill Encounter Details Date Type Department Care Team ([facility] st Contact Info) Description 07/06/2025 Refill [facility] Pulmonary, Allergy and Critical Care Medicine [address] [place] [address] [place] [address] Lester Hicks MD 10 [facility] 2nd [place] [address] Medication Refill Social History Tobacco Use Types [...] high school, GED, job training, learning the [place] language, technical skills, or developing parenting skills)? [...] as of this encounter Progress Notes * Consuelo Tom LPN - 07/06/2025 10:15 AM EDT Rx Care Gap Status - Instructions for Clinical Staff (prescriber discretion applies): > Mismatch review guide > N/a - No action needed Visit Info Last visit: 09/11/2024 Lester Hicks MD - Pulmonology [facility] PULM/ALLGY 10 MAIN > Requested f/u: Return in about 1 year (around 09/11/2025) for Review Tests and Studies (PFTs). Upcoming visit: 09/21/2025 Lester Hicks MD - Pulmonology [facility] PULM/ALLGY 10 MAIN ACTIONS TAKEN BY Consuelo Tom LPN - Criteria met. Asthma / COPD Inhalers Rx Protocol - budesonide/formoterol fumarate Criteria met; renew for up to 12 months. Visit in the past 14 months: Yes documented in this encounter Plan of Treatment Upcoming Encounters Date Type Department Care Team (Late st Contact Info) Description 07/22/2025 1:30 PM EDT Office Visit [facility] Family Medicine [address] [place] [address] [place] [address] Johann Hanson CNP [address] [place] [address], [address] [place] [address] [email or web address] 07/23/2025 8:00 AM EDT Office Visit [facility] Rheumatology [address] [place] [address] [place] [address] Margaux Montanez MD [address] [place] [address], [address] [place] [address] [email or web address] 09/10/2025 9:00 AM EST Office Visit [facility] G[facility]enterology [facility] 10 [place] [address] Unknown, Unknown, Shreyas Limon MD [address] [address] 09/21/2025 2:30 PM EST Office Visit [facility] Pul[facility], Allergy and Critical Care Medicine 10 [facility] [place] [address] Lester Hicks MD [address] [place] [address] 10/13/2025 9:20 AM EST Office Visit [facility] Endocrinology 22 [place] [address] Doretha Glynn MD [address] [place] [address] [email or web address] 12/22/2025 8:30 AM EDT Office Visit [address] [place] [address] Johann Hanson STRAP MACHINE OPERATOR [address] [place] [address], [address] [place] [address] [email or web address] 06/30/2026 8:00 AM EDT Office Visit [address] [place] [address] Johann Hanson STRAP MACHINE OPERATOR [address] [place] [address], [address] [place] [address] [email or web address] documented as of this encounter Visit Diagnoses Not on filedocumented in this encounter Additional Health Concerns Assessment Noted Time PHQ-9 Depression Total Score: 4 10/29/19 24 1:54 PM EST PHQ-2 Depression Total Score: 0 06/23/20 25 12:32 PM EDT documented as of this encounter Care Teams Lead Etl Developer Relationship Specialty Start Date End Date CarmenJohann evansTIFFANIE [address] [place] [address], [address] [place] [address] [email or web address] PCP - General Family Medicine 02/11/21 Lester Hicks MD [address] [place] [address] [email or web address] Historical LMR Provider 07/28/17 Margaux Montanez MD [address] [place] [address], [address] [place] [address] [email or web address] Historical LMR Provider 07/28/17 Khang Kilgore MD [address] [place] [address], [address] [place] [address] Insurance Assigned Provider 01/12/24 Shreyas Wilson MD [address] [place] [address] Gastroenterology 06/17/24 Doretha Glynn MD [address] [place] [address] Endocrinology 06/17/24 Radha Pereira RN [address] [place] [address] [email or web address] Professor Of RadiologyActuarial Analyst 06/11/25 documented as of this encounter Additional Source Comments The information contained in this document represents components of the legal health record. It is not the complete legal health record.[facility]
--- OUTSIDE RECORDS SUMMARY | 2025-07-08 07:23 | XMS_ITS | Encounter Summary ---
Author Organization [facility] Address [address] [facility] [address] [place] [address] Phone Care Team Providers Care Gasoline Service Attendant Name Role Phone Lester Hicks MD Unavailable [phone] Margaux Montanez MD Unavailable Johann Hanson TELEMARKETING [employer] Primary Care Provider [phone] Khang Kilgore MD Unavailable Shreays Wilson MD Unavailable Doretha Glynn MD Unavailable [phone] Rahda Pereira RN Unavailable [phone] Reason for Visit * Reason Onset Date Comments Lab sample 07/03/2025 Encounter Details Date Type Department Care Team (Late st Contact Info) Description 07/03/2025 Telephone [facility] [address] [place], [place] [id number] Johann Hanson, TIFFANIE [address] [facility], [address] [place], [place] [id number] [email or web address] Lab sample Social History Tobacco Use Types Packs/Day Years [...] as of this encounter Progress Notes * Dolores Sawyer RN - 07/03/2025 2:16 PM EDT Porsha was calling to schedule. Appt for repeat PAP scheduled. To FD to note she should not have a copay Johann Hanson CNP 07/01/2025 1:31 PM EDT Notify unsatisfactory specimen so cellular component could not be analyzed. HPV test was negative. Please schedule f/up visit with me in the next month (no co-pay to be taken) just to repeat the swab. * Joan Anguiano - 07/03/2025 1:48 PM EDT Pt called said she received a call saying PAP sample was not a good sample. Pt said she needs a papagain. Please review this and advise pt when this should be done. Central Support Label Press Operator (Please do not reply to this user; this inbox is not monitored.) Thank you. documented in this encounter Plan of Treatment Upcoming Encounters Date Type Department Care Team (Late st Contact Info) Description 07/22/2025 1:30 PM EDT Office Visit [facility] [place] [facility] [address] [place] [address] [place] [address] oJhann Hanson CNP [address] [facility], [address] [place] [address] [email or web address] 07/23/2025 8:00 AM EDT Office Visit [facility] Rheumatology [address] [place] [address] Margaux Montanez MD [address] [place] [address], [address] [place] [address] [email or web address] 09/10/2025 9:00 AM EST Office Visit [facility] Gastroenterology Clinic 10 [place] [address] Unknown, [place], Shreyas Limon MD [address] [address] 09/21/2025 2:30 PM EST Office Visit [facility] Pulmonary, Allergy and Critical Care Medicine 10 [facility] [place] [address] Lester Hicks MD [address] [place] [address] 10/13/2025 9:20 AM EST Office Visit [facility] End[facility]inology [address] [place] [address] Doretha Glynn MD [address] [place] [address] [address] [place] [address] [email or web address] 12/22/2025 8:30 AM EDT Office Visit [address] [place] [address] Johann Hanson, TELEMARKETING [employer]ER [address] [place] [address], [address] [place] [address] [email or web address] 06/30/2026 8:00 AM EDT Office Visit [address] [place] [address] Johann Hanson TELEMARKETING [employer] [address] [place] [address], [address] [place] [address] [email or web address] documented as of this encounter Visit Diagnoses Not on filedocumented in this encounter Additional Health Concerns Assessment Noted Time PHQ-9 Depression Total Score: 4 10/29/19 24 1:54 PM EST PHQ-2 Depression Total Score: 0 06/23/20 25 12:32 PM EDT documented as of this encounter Care Teams Gasoline Service Attendant Relationship Specialty Start Date End Date Johann HansonTIFFANIE [address] [facility], [address] [place] [address] [email or web address] PCP - General Family Medicine 02/11/21 Lester Hicks MD [address] [place] [address] [email or web address] Historical LMR Provider 07/28/17 Margaux Montanez MD [address] [place] [address], [address] [place] [address] Historical LMR Provider 07/28/17 Khang Kilgore MD [address] [place] [address], [address] [place] [address] Insurance Assigned Provider 01/12/24 Shreyas Wilson MD [address] [place] [address] Gastroenterology 06/17/24 Doretha Glynn MD [address] [place] [address] [email or web address] Endocrinology 06/17/24 Radha Pereira, RN [address] [place] [address] [email or web address] [facility] Doctor Of RadiologyGenerating Plant Superintendent 06/11/25 documented as of this encounter Additional Source Comments The information contained in this document represents components of the legal health record. It is not the complete legal health record.[facility]
[2025-07-08 08:20] LABS: Alanine Aminotransferase 12 U/L (0-31); Albumin Level 4.3 g/dL (3.5-5.0); Alkaline Phosphatase 53 U/L (39-117); Anion Gap 13 (12-20); Aspartate Amino Transferase 22 U/L (5-31); Blood Urea Nitrogen 16 mg/dL (9-16); Calcium 9.7 mg/dL (8.4-10.2); Carbon Dioxide 27 mmol/L (22-29); Chloride 105 mmol/L (96-108); Cholesterol 173 mg/dL (<200); Estimated Glomerular Filt Rate > 60; HDL Cholesterol 47 mg/dL (>40); Potassium 3.5 mmol/L (3.3-5.1); Sodium 141 mmol/L (135-145); Total Protein 6.7 g/dL (6.5-8.0); Triglycerides 95 mg/dL (<150)
[2025-07-08 08:35] LABS: Thyroid Stimulating Hormone 0.13 uIU/mL (0.32-4.0)
== END 2025-07-08 07:10 | disposition home or self-care (01) ==
LOC: HO.LAB 07:09
PROVIDERS: PCP Nurse Practitioner Adult Health
DX: Z13.89 Encounter for screening for other disorder (principal)
CPT/HCPCS: 36415; 80053; 80061; 83036; 84443

== ENCOUNTER 2025-07-13 08:24 | Outpatient (AMB) | payer OTHER, SELFPAY ==
--- OUTSIDE RECORDS SUMMARY | 2021-10-10 18:00 | XMS_ITS | Encounter Summary ---
Author Organization [facility] Address [address] [place] [address] [place] [phone] Phone Care Team Providers Care Cnc Milling Machine Operator Name Role Phone Tricia Balderas Unavailable Lester Hicks MD Unavailable [phone] Margaux Montanez MD Unavailable [phone] Demario Floyd MD Unavailable Pam Benson MD Unavailable Adithya Campos TEAM PHYSICIAN Unavailable Johann Hanson CNP Primary Care Provider [phone] Encounter Details Date Type Department Care Team (Late st Contact Info) Description 10/10/2021 5:00 PM EST Hospital Encounter [facility] [address] [place] [address] Natacha Hernandez CNP [address] [place], [place] [id number] Social History Tobacco Use Types Packs/Day Years [...] high school, GED, job training, learning the [place] language, technical skills, or developing parenting skills)? [...] 12/07/2022 9:18 AM Alise Hamilton RN * [place] Suicide Severity Rating Scale (Screener/Recent Self-Report) Question [...] Description 07/22/2025 1:30 PM EDT Office Visit [address] [place] [address] Johann Hanson CNP [address] [place] [address], [address] [place] [address] [email or web address] 07/23/2025 8:00 AM EDT Office Visit [facility] Rheumatology [address] [place] [address] [place] [address] Margaux Montanez MD [address] [place] [address], [address] [place] [address] [email or web address] 09/10/2025 9:00 AM EST Office Visit [facility] Gastroenterology Clinic [address] [place] [id number] Unknown, Unknown, Shreyas Limon MD [address] [place] [address] [address] [place] [address] 09/21/2025 2:30 PM EST Office Visit [facility] Pulmonary, Allergy and Critical Care Medicine [address] [place] [address] [place] [address] Lester Hicks MD [address] [place] [address] [address] [place] [address] 10/13/2025 9:20 AM EST Office Visit [facility] [address] [place] [address] [place] [address] Doretha Glynn MD [address] [place] [phone] [email or web address] 12/22/2025 8:30 AM EDT Office Visit [address] [place] [address] Johann Hanson, TEAM PHYSICIAN [address] [place] [address], [address] [place] [address] [email or web address] 06/30/2026 8:00 AM EDT Office Visit [address] [place] [address] Johann Hanson, TEAM PHYSICIAN [address] [place] [address], [address] [place] [phone] [email or web address] documented as of this encounter [...] body heights. Increased anterolisthesis of L4 on M6jahse 2008, likely secondary to facet degenerative changes. Natacha Hernandez TEAM PHYSICIAN IMG XR SPINE Final Resul t documented [...] documented as of this encounter Care Teams Cnc Milling Machine Operator Relationship Specialty Start Date End Date Johann Hanson CNP [address] [place] [address] [email or web address] PCP - General Family Medicine 02/11/21 Tricia Balderas DO [address] [place] [address] [email or web address] Historical LMR Provider 07/28/17 10/15/21 Lester Hicks MD [address] [place] [address] [email or web address] Historical LMR Provider 07/28/17 Margaux Montanez MD [address] [facility] [place] [address] [email or web address] Historical LMR Provider 07/28/17 Demario Floyd MD [address] [place] [id number] [email or web address] Historical LMR Provider 07/28/17 2 Pam Benson MD [address] [place] [address] [email or web address] Historical LMR Provider 07/28/17 Adithya Campos CNP [address] [place] [address] [email or web address] Historical LMR Provider 07/28/17 12/25/21 documented as of this encounter Additional Source Comments The information contained in this document represents components of the legal health record. It is not the complete legal health record.[facility]
--- NOTE | 2025-07-13 08:39 | MHC.OFFVIS ---
Vital Signs 07/13/25 08:48 Height 5 ft 4 in Weight 188 lb BMI 32.3 Intake Visit Reasons: OV- Discuss Left TKA Intake Note: Herlinda is a 65 year old female who presents today for a follow up of her Left Knee OA. She was last seen with Venancio on 05/27/25 where she received a Left Knee Cortisone injection and a Custom Medial Unloading brace was ordered. She is working with Physical Therapy at [facility]. PCP: Johann Hanson Allergies celecoxib (From Celebrex) Allergy (Verified 07/13/25 08:49) Hives codeine Allergy (Verified 07/13/25 08:49) Vomiting cephalexin (From Keflex) Adverse Reaction (Verified 07/13/25 08:49) Unknown metoclopramide (From Reglan) Adverse Reaction (Verified 07/13/25 08:49) Agitated HPI HPI OV- Discuss Left TKA: Details: 65 yo F with a h/o left knee genicular artery embolization, injections. She has SLE and takes methotrexate and has a history of steroid use. She comes in with ongoing chronic left knee pain scondary to severe medial compartment OA. She has a medial cold rolling machine setter ordered and is working with PT. She had to use a cart while shopping and can walk about a block. She states that the quality of her life is poor. She limps at work. She is unable to engage in recreational activities. The only areas and she has not sought surgical intervention earlier is because of anxiety relating to postoperative pain. She helped her get through a knee replacement he did well. She found the genicular artery embolization help with swelling but not so much with pain in the steroid injections initially helped but not significant. She has been using an unloading brace which she finds extremely helpful but it only allows her doing do some things during the day that she isn't otherwise able to do. Her lupus is well controlled and she takes methotrexate and Plaquenil. [facility] Medical History Sjogrens syndrome Lupus (systemic lupus erythematosus) Surgical History H/O hernia repair Physical Exam Vital Signs: BMI result Body Mass Index 32.3 Const General: cooperative, healthy appearing, no acute distress, well developed and alert HEENT Head: Yes normal to inspection, Yes normocephalic and Yes atraumatic Mouth: moist mucous membranes Eyes General: appearance normal, both eyes and all related structures EOM: EOMs intact bilaterally Chest Other: no audible wheezing. Resp Other: No audible wheezing Effort & Inspection: normal respiratory effort Cardio Other: Radial pulse palpable with no rythmic abnormalities Back/Spine/Pelvis Cervical Spine: normal cervical lordosis Skin General skin exam: no rashes or lesions noted Neuro General: no focal motor deficits Extrem Other: Left knee with sharp tenderness to palpation along the medial joint line and varus alignment. 5-130 degrees motion. 1+ varus instability. Trace effusion. Psych Appearance: grossly normal and well kempt Mental Status: mental status grossly normal Speech and movement: Normal speech and movement present Affect: normal affect Attitude: cooperative Results Reviewed Results Reviewed: I personally reviewed relevant radiographs. Complete loss of the medial compartment joint space consistent with severe arthritis Assessment & Plan Assessment & Plan (1) Primary osteoarthritis of left knee: Code(s): M17.12 - Unilateral primary osteoarthritis, left knee Category: Medical Plan: This is a 65-year-old woman with severe osteoarthritis of the left knee. She has well-controlled lupus and has been dealing with the knee pain for years. Her radiographic findings demonstrate severe arthritis. Clinically she benefits from the cold rolling machine setter but not sufficiently to allow her to engage in pain-free activity. We discussed treatment options and we agreed that knee replacement would be the best option for her. I discussed the surgery with her. I reviewed the risks, benefits and alternatives to surgery. I explained the risk of infection, stiffness, need for additional surgery, persistent pain, damage to arteries and nerves. I explained the medical complications associated with surgery such as blood clots pulmonary emboli and organ dysfunction. She expressed understanding. She would like to schedule surgery for the new year. I think this is reasonable. 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 I answered her questions to the best of my abilities. Coding Level of Care Code Est Pt Level 4 (94670) Diagnoses Primary osteoarthritis of left knee M17.12
[2025-07-13 08:48] VITALS: BMI 32.3
--- OUTSIDE RECORDS SUMMARY | 2025-07-13 08:51 | XMS_ITS | Clinical Summary ---
Author Organization [facility] Address [address] [place] [address] Phone Care Team Providers Care Senior Technical Support Engineer Name Role Phone Lester Hicks MD Unavailable [phone] Margaux Montanez MD Unavailable Eunice Sanz CNP Primary Care Provider [phone] Khang Kilgore MD Unavailable Shreyas Murphy MD Unavailable Doretha Glynn MD Unavailable [phone] Radha Pereira RN Unavailable Allergies Active Allergy Reactions Criticality Noted Date [...] TB REG BEVEL) 1 mL 27 x 10/09 SyrgIndications:M ethotrexate, terminologist, current use Inject 1 each under the skin every 7 days. 25 each 1 024 Active cyclobenzaprine (FLEXERIL) 5 MG tabletIndications :Muscle spasm take 1 tablet by mouth every night at bedtime as needed 30 tablet 024 Active triamcinolone (ORALONE) 0.1 % pasteIndications: SLE-Sjogren overlap syndrome,Mouth sore APPLY TO MOUTH SORES 4 TO 5 TIMES A DAY NEEDED 30 g 024 Active LORazepam (ATIVAN) 0.5 MG tablet Take 1 tablet (0.5 mg total) by mouth daily as needed for anxiety. Do not take with Tramadol or at the same time as trazodone or gabapentin. 15 tablet 025 Active folic acid (FOLVITE) 1 MG tabletIndications :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, nursing home, current use TAKE 1 TABLET BY MOUTH ONCE EVERY DAY EXCEPT FOR THE DAY OF WEEKLY METHORTEXATE 90 tablet 3 025 Active pilocarpine (SALAGEN) 5 MG tabletIndications :Sjogren's syndrome with lung involvement TAKE 1 TABLET(5 MG) BY MOUTH FOUR TIMES DAILY 360 tablet 3 025 Active montelukast (SINGULAIR) 10 mg tabletIndications :Asthma, cough variant,SOB (shortness of breath) TAKE 1 TABLET BY MOUTH EVERY DAY AT BEDTIME 90 tablet 2 025 Active albuterol-budeson blanca (AIRSUPRA) 90-80 mcg/actuation inhalerIndication s:Asthma, cough variant INHALE 2 PUFFS INTO THE LUNGS EVERY 4 (FOUR) HOURS NEEDED. 10.7 g 5 025 Active hydroCHLOROthiazi de 25 MG tabletIndications :Essential hypertension TAKE 1 TABLET BY MOUTH EVERY DAY 90 tablet 025 Active ipratropium (ATROVENT) 42 mcg (0.06 %) nasal [...] (PLAQUENIL) 200 mg tabletIndications :Inflammatory arthritis,Methotr exate, nursing home, current use,Primary osteoarthritis involving multiple joints,Sjogren's syndrome [...] EVERY DAY 90 tablet 1 025 Active escitalopram oxalate (LEXAPRO) 10 MG tablet TAKE ONE (1) TABLET BY MOUTH EVERY DAY 90 tablet 3 025 Active traMADoL (ULTRAM) 50 mg tabletIndications :SLE-Sjogren overlap syndrome,Inflamma tory arthritis Take 1 tablet (50 mg total) by mouth every 8 (eight) hours as needed for pain (specific location in comments). 90 tablet Active ondansetron (ZOFRAN-ODT) 4 MG disintegrating tablet Take 4 mg by mouth as needed. Active TIRZEPATIDE, WEIGHT LOSS, SUBQ Inject 0.44 mL under the skin once a week. Active budesonide-formot modesta 160-4.5 mcg/actuation inhaler INHALE 2 PUFFS INTO THE LUNGS 2 (TWO) TIMES A DAY. 10.2 g 5 Active buPROPion (WELLBUTRIN XL) 150 MG ER 24 hr tabletIndications :Anxiety and depression Take 3 tablets (450 mg total) by mouth daily. 270 tablet 1 021 2021 Discontinued sertraline (ZOLOFT) 100 MG tablet Take 1 tablet (100 mg total) by mouth daily. 90 tablet 1 021 2021 Discontinued ONDANSETRON ORAL Take by mouth. 06/08 Discontinued SEMAGLUTIDE SUBQ Inject 1.5 mg under the skin every 7 days. 2024 Discontinued traMADoL (ULTRAM) 50 mg tabletIndications :SLE-Sjogren overlap syndrome,Inflamma tory arthritis Take 1 tablet (50 mg total) by mouth every 8 (eight) hours as needed for pain (specific location in comments). 90 tablet 025 2024 Discontinued(R eorder) escitalopram oxalate (LEXAPRO) 10 MG tablet TAKE ONE (1) TABLET BY MOUTH EVERY DAY 90 tablet 1 025 2024 Discontinued budesonide-formot modesta 160-4.5 mcg/actuation inhaler INHALE 2 PUFFS INTO THE LUNGS 2 (TWO) TIMES A DAY. 10.2 g 5 025 2024 Discontinued oxyCODONE 5 MG immediate release tablet Take 1 tablet (5 mg total) by mouth every 4 (four) hours as needed for pain (specific location in comments) (left knee). For breakthrough pain. You do not need to use all the tablets. Dispose of unused tablets. Partial fill OK. 10 tablet 025 2024 Discontinued Hospital, Clinic, or Other [...] Needs: TBD. Problem Noted Date Diagnosed Date Primary osteoarthritis of both knees 03/19/2025 Assessment & Plan (06/24/2025 9:03 AM EDT): Assessment & Plan (03/19/2025 9:52 AM EDT): [...] of intake to the least frequent Class 1 obesity due to exces s calories with serious comorbidity and body mass index (BMI) of 33.0 to 33.9 in adult 03/14/2024 Assessment & Plan (06/24/2025 9:03 AM EDT): Weight has trended down on tirzepatide which she tolerates. Assessment & Plan (12/18/2024 10:02 PM EDT): [...] gain. 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 Given active and chronic GI symptoms, I [...] or systems involvement 10/29/2023 Assessment & Plan (06/24/2025 9:03 AM EDT): Followed by rheumatology. She notes increased L knee pain and has an orthopedics consult at [facility] this week. She is up to date with eye exams. Assessment & Plan (10/29/2023 3:09 PM EST): [...] with abnormal findings 04/23/2023 Assessment & Plan (06/24/2025 9:03 AM EDT): Flu shot today. Tdap 2025, sooner with injury. Eligible for Covid vaccine at the pharmacy. The rest of her immunizations are up to date. Warning signs of breast cancer and breast self-awareness reviewed. Mammogram is scheduled tomorrow. Pap smear updated today; if normal d/c screening pap smears per ASCCP guidelines. Colonoscopy 2025 per GI. Check fasting labs. Continue regular dental and eye care. Orders: Lipid panel; Future Assessment & Plan (06/17/2024 11:45 AM EDT): [...] her to contact Long COVID clinic at [facility] for advice. Mouth sores 03/20/2022 Assessment & Plan (04/04/2022 11:17 AM EDT): Avoid spicy and acidic foods. Proper hydration. Diligent mouth hygiene. Use lysine 500 mg twice daily and topical product from her dentist as prescribed PTSD (post-traumatic stress disorder) 10/03/2021 Assessment & Plan (06/06/2024 12:50 PM EDT): She continues every 2 weeks personal psychotherapy and finds it very rewarding. She has the same therapist x 13 years! Assessment & Plan (02/28/2022 12:25 PM EDT): I am hoping that the beta-bladimir will also have a positive effect on her anxiety. SLE-Sjogren overlap syndrome 10/21/2020 Assessment & Plan (06/24/2025 9:03 AM EDT): Assessment & Plan (03/19/2025 9:51 AM EDT): [...] recent labs from late July 2024 at [facility] quite stable on current regimen. Get labs [...] most recent labs from July 2024 at [facility] quite stable on current regimen. Get labs [...] due to Griffin's thyroiditis Assessment & Plan (06/24/2025 9:03 AM EDT): Managed by endocrinology. She plans to have labs drawn in the next couple of weeks. Assessment & Plan (04/09/2025 12:10 AM EDT): [...] thyroid hormone. Will communicate about labs through [facility]. Reviewed symptoms of under and over replacement, patient to call if concerns. Follow-up in 6 months Assessment & Plan (04/23/2023 4:46 PM EDT): Establish care with endocrinology this fall as scheduled. For now, continue current dose of levothyroxine as last TSH was improved and she has not symptoms of over- or under-repletion. Assessment & Plan (07/22/2022 11:05 PM EDT): Close follow-up with treating char filter tank tender exactly as instructed to keep her thyroid function within the optimal range. Assessment & Plan (04/04/2022 11:15 AM EDT): Close follow-up with treating char filter tank tender exactly as instructed to keep her thyroid [...] therapy and follow-up as scheduled with her char filter tank tender. Assessment & Plan (08/22/2020 6:54 PM EST): Carefully continue current dose of thyroid replacements therapy and follow-up as scheduled with her char filter tank tender. Assessment & Plan (05/09/2020 4:52 PM EDT): Carefully continue current dose of thyroid replacements therapy and follow-up as scheduled with her char filter tank tender. Assessment & Plan (12/18/2019 11:01 AM EDT): [...] TSH on 08/08/2019 was suppressed at 0.05 MN U/mL. I do not know when her [...] [facility] Assessment & Plan (01/12/2021 4:01 [...] 9:53 AM EDT): Daily sun protection. See biomedical engineering technician as scheduled at least every 12 months.-Most recent checkup from February 2025 Free of signs of Plaquenil toxicity She is arranging for ophthalmologic checkup in the nearest future. Assessment & Plan (12/18/2024 1:02 PM EDT): Daily sun protection. See biomedical engineering technician as scheduled at least every 12 months. She is arranging for ophthalmologic checkup in the nearest future. Assessment & Plan (10/03/2024 7:03 PM EST): Daily sun protection. See biomedical engineering technician as scheduled at least every 12 months. She is arranging for ophthalmologic checkup in the nearest future. Assessment & Plan (06/06/2024 12:49 PM EDT): Daily sun protection. See biomedical engineering technician as scheduled at least every 12 months. She is arranging for ophthalmologic checkup in the nearest future. Assessment & Plan (03/23/2024 12:09 PM EDT): Daily sun protection. See biomedical engineering technician as scheduled at least every 12 months. Assessment & Plan (11/28/2023 9:30 AM EST): Daily sun protection. See biomedical engineering technician as scheduled at least every 12 months. Assessment & Plan (05/04/2023 2:51 PM EDT): Daily sun protection. See biomedical engineering technician as scheduled at least every 12 months. Assessment & Plan (10/30/2022 3:44 PM EST): Daily sun protection. See biomedical engineering technician as scheduled at least every 12 months. Assessment & Plan (06/28/2022 4:12 PM EDT): Daily sun protection. See biomedical engineering technician as scheduled at least every 12 months. Assessment & Plan (04/04/2022 11:18 AM EDT): Daily sun protection. See biomedical engineering technician as scheduled at least every 12 months. Assessment & Plan (12/07/2021 4:45 PM EST): Daily sun protection. See biomedical engineering technician as scheduled. Assessment & Plan (09/08/2021 3:46 PM EST): Daily sun protection. See biomedical engineering technician as scheduled. Assessment & Plan (05/25/2021 4:46 PM EDT): Daily sun protection. See biomedical engineering technician as scheduled. Assessment & Plan (03/24/2021 11:21 AM EDT): Daily sun protection. See biomedical engineering technician as scheduled. Assessment & Plan (01/12/2021 4:02 PM EDT): Daily sun protection. See biomedical engineering technician as scheduled. Assessment & Plan (10/24/2020 9:02 PM EST): Daily sun protection. See biomedical engineering technician as scheduled. Assessment & Plan (08/22/2020 6:55 PM EST): Daily sun protection. See biomedical engineering technician as scheduled. Assessment & Plan (05/09/2020 4:54 PM EDT): Daily sun protection. See biomedical engineering technician as scheduled. Assessment & Plan (03/28/2020 12:14 PM EDT): Daily sun protection. See biomedical engineering technician as scheduled. Assessment & Plan (02/05/2020 10:49 AM EDT): Daily sun protection. See biomedical engineering technician as scheduled. Assessment & Plan (09/11/2019 8:47 AM EST): Daily sun protection. See biomedical engineering technician as scheduled. Assessment & Plan (07/08/2019 3:06 PM EDT): Daily sun protection. See biomedical engineering technician as scheduled. Assessment & Plan (03/25/2019 10:21 AM EDT): Daily sun protection. See biomedical engineering technician as scheduled. Assessment & Plan (12/23/2018 2:36 PM EDT): Daily sun protection. See biomedical engineering technician as scheduled. Assessment & Plan (11/19/2018 8:58 PM EST): Daily sun protection. 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 Dry mouth 01/04/2018 Calculus of salivary duct 01/04/2018 Essential hypertension 10/08/2017 Assessment & Plan (06/24/2025 9:03 AM EDT): Blood pressure is at goal on current regimen. Continue the same and return in 6 months. QTc today is 450 ms, up from 433 in 2022. Check echo. She will try to reduce her morning pantoprazole. Orders: Adult Echo TTE; Future Assessment & Plan (12/15/2024 4:46 PM EDT): [...] therapy prior to next visit-standing orders in [facility]. Consider neurology consult regarding headaches and family [...] safety and efficacy of therapy-standing orders in [facility]. Assessment & Plan (12/18/2024 10:06 PM EDT): Clinically currently well-controlled except L knee, hands and neck soreness and stiffness particularly in the morning. Get labs monitoring safety and efficacy of therapy today and prior to next visit-standing orders in [facility]. Consider neurology consult regarding headaches and family [...] safety and efficacy of therapy-standing orders in [facility]. Assessment & Plan (06/17/2024 11:48 AM EDT): Follow up with Dr. Hicks for Sjogren's, asthma. Continue inhalers. Assessment & Plan (06/06/2024 12:47 PM EDT): Clinically currently well-controlled except L knee, hands and neck soreness and stiffness particularly in the morning. Get labs monitoring safety and efficacy of therapy today and prior to next visit-standing orders in [facility]. Consider neurology consult regarding headaches and family [...] safety and efficacy of therapy-standing orders in [facility]. Assessment & Plan (03/14/2024 3:34 PM EDT): Clinically currently well-controlled. Get labs monitoring safety and efficacy of therapy prior to next visit-standing orders in [facility]. Consider neurology consult regarding headaches and family [...] therapy prior to next visit-standing orders in [facility]. Consider neurology consult regarding headaches and family [...] disease with esophagitis 10/04/2017 Assessment & Plan (06/24/2025 9:03 AM EDT): She will try to reduce morning PPI dose. Follow up with GI as planned. Assessment & Plan (03/19/2025 9:10 AM EDT): [...] at least every 3-4 months-standing orders in [facility]. Gentle, regular exercise routine. Avoid falls, injuries, [...] Patient: Herlinda Miranda Saleem : 1960 Date: 12/07/2021 Assessment & Plan [...] Patient: Herlinda Miranda Saleem : 1960 Date: 09/08/2021 Assessment & Plan [...] therapy at least every 3 months. 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, nursing home, current use 10/04/2017 Assessment & Plan (03/19/2025 [...] mixture of 1% lidocaine and 40 mg Dnak-Ydueue-tsskdk refer for details to procedure note below. [...] mixture of 1% lidocaine and 40 mg Cptb-Wcmacw-kydtro refer for details to procedure note below. [...] mixture of 1% lidocaine and 40 mg Pxcl-Nrfoda-ryirzx refer for details to procedure note below. [...] mixture of 1% lidocaine and 40 mg Uois-Rfwkrd-kxeygi refer for details to procedure note below. [...] past. Anxiety and depression Assessment & Plan (06/24/2025 9:03 AM EDT): She reports adequate effect with escitalopram 10 mg daily. She is taking trazodone at night and is usually only needing 100 mg. Limit as able. Assessment & Plan (12/15/2024 4:46 PM EDT): Adequately controlled with escitalopram 10 mg daily. She endorses increased anxiety about an upcoming family meeting. 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 She agrees. [...] -Continue Lexapro - Add as needed lorazepam Resolved Problems Problem Noted Date Diagnosed Date Resolved Date Class 1 obesity due to exces s calories with serious comorbidity and body mass index (BMI) of 34.0 to 34.9 in adult 03/19/2025 06/24/2025 Assessment & Plan (03/19/2025 9:53 AM EDT): Congratulations on losing 18 pounds from 213 on 12/18/2024 down to 195 today and keep it off. Continue diligent portion control. Limit concentrated sugars, saturated fats and calories in the diet. Keep well-hydrated. If unable to achieve expected goal consider formal dietary/nutritional support. Rash and other nonspecific skin eruption 04/11/2023 06/17/2024 Assessment & Plan (04/11/2023 12:10 PM EDT): Rash appears more consistent with rosacea to me, perhaps perioral dermatitis. I am not sure that this represents cutaneous manifestation of SLE but will ask her barrel lathe operator to weigh in. Unfortunately, the wait for [...] results of from fluid analysis and culture. Paraesophageal hernia 02/28/20222024 Assessment & Plan (10/03/2024 7:03 PM EST): Corrected surgically in November 2022 with subsequent pleural effusions, vasovagal reaction upon one of the aspiration procedures. Improved-followed by settlement agent and trial manager. Assessment & Plan (06/17/2024 11:46 AM EDT): S/P repair 2022. Await EGD this week. Assessment & Plan (06/06/2024 12:52 PM EDT): Corrected surgically in November 2022 with subsequent pleural effusions, vasovagal reaction upon one of the aspiration procedures. Improved-followed by settlement agent and trial manager. Assessment & Plan (02/28/2022 4:42 PM EDT): Large hiatal hernia, previously documented as Bochdalek hernia though unclear if that is accurate. Given active symptoms of early satiety and abdominal discomfort, further evaluation and thoracic surgery consultation recommended. Plan repeat chest CT and upper GI series. Refer to Dr. Esteban once testing completed. Mild episode of recurrent ma jimenez depressive [...] achieve expected goal consider formal dietary/nutritional support. Griffin's thyroiditis 06/08 Assessment & Plan (12/08/2022 3:40 PM EST): TSH 1.45 - Continue levothyroxine. Encounters Date Type Department Care Team Description 07/06/2025 Enrollment [facility] - Primary Care [address] [place] [address] 07/06/2025 Refill [facility] Pulmonary, Allergy and Critical Care Medicine [address] [facility] [place] [address] Lester Hicks MD Medication Refill 07/03/2025 Telephone [facility] [address] [place] [address] Eunice Sanz, PLASTER PATTERN CASTER Lab sample 06/25/2025 7:33 AM EDT - 06/25/2025 11:59 PM EDT [facility] [address] [place] [address] Eunice Sanz CNP Discharge Disposition: Home or Self Care 06/24/2025 8:00 AM EDT Office Visit [address] [place] [address] Eunice Sanz CNP Encounter for general adult medical examination with abnormal findings (Primary Dx); Essential hypertension; Anxiety and depression; Rheumatoid arthritis with rheumatoid factor of left knee without organ or systems involvement; SLE-Sjogren overlap syndrome; Gastroesophageal reflux disease with esophagitis without hemorrhage; 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; Primary osteoarthritis of both knees; Class 1 obesity due to excess calories with serious comorbidity and body mass index (BMI) of 33.0 to 33.9 in adult; Encounter for medication monitoring; Screening for malignant neoplasm of cervix; Needs flu shot; Immunization counseling 06/18/[address] [place] [address] Eunice Sanz CNP Medication Refill 06/05/2025 Refill [facility] Rheumatology [address] [place] [address] [place] [address] Margaux Montanez MD Medication Refill 06/01/2025 Patient Outreach [facility] [address] [place] [id number] Neisha Pinto, RANDI [facility], [facility] transition letter ) 05/25/[address] [place] [address] Eunice Sanz CNP Medication Refill 05/25/2025 Telephone [facility] Rheumatology [address] [place] [address] [place] [address] Margaux Montanez MD 05/22/2025 Telephone [facility] Rheumatology [address] [place] [address] [place] [address] Margaux Montanez MD 05/18/2025 Orders Only [facility] Rheumatology [address] [place] [address] [place] [address] Nancy See MA SLE-Sjogren overlap syndrome; Sjogren's syndrome with lung involvement; Inflammatory arthritis; 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, nursing home, current use 05/13/2025 Telephone [facility] Rheumatology [address] [place] [address] Sung Marlow, RANDI 05/13/2025 Nurse Triage [facility] Rheumatology [address] [place] [address] [place] [address] Sung Marlow, RANDI 05/11/2025 Refill [facility] Rheumatology [address] [place] [address] [place] [address] Margaux Montanez MD Medication Refill 05/07/2025 Refill [facility] Rheumatology [address] [place] [address] [place] [address] Margaux Montanez MD Medication Refill 04/29/2025 Patient Outreach [facility] [address] [place] [id number] Neisha Pinto, RANDI Care Coordination ([facility] Follow up outreach ) 04/21/2025 Refill [facility] Rheumatology [address] [place] [address] [place] [address] Margaux Montanez MD Medication Refill 04/14/2025 9:30 AM EDT Telemedicine [facility] Radiology [facility] [address] [place] [address] Lj Moscoso MD, MPH 06/17/2024 Procedure [facility] [address] [place] [address] from Last 3 Months Immunizations Immunization Administration Dates Next Due COVID-19 (Pre-07/30) Pfizer Vaccine, mRNA, PF 03/09/2021,02/16/2021 INFLUENZA, SPLIT VIRUS, TRIVALENT PF 06/24/2025, 07/11/2024,08/05/2015 Influenza Quadrivalent MDCK Preservative Free IM 07/04/2023,08/06/2022 [...] degeneration Neg Hx Prostate cancer Neg Hx Stroke Neg Hx Relation Status Comments Daughter Alive [...] high school, GED, job training, learning the Luxem[place] language, technical skills, or developing parenting skills)? [...] housing situation today? I have vinicius ring 06/23/2025 How many times have you move [...] Sign Reading Time Taken Comments Blood Pressure 116/78 06/24/2025 8:23 AM EDT Pulse 85 06/24/2025 7:57 AM EDT Temperature 35.3 C (95.6 F) 06/24/2025 7:57 AM EDT Respiratory Rate 16 03/12/2025 2:30 PM EDT Oxygen Saturation 99% 06/24/2025 7:57 AM EDT Inhaled Oxygen Concentration 20.7% 03/12/2025 1 1:28 AM EDT Weight 85.9 kg (189 lb 6.4 oz) 06/24/2025 7:57 A M EDT Height 160.9 cm (5' 3.35 ) 06/24/2025 7:57 AM ED T Body Mass Index 33.19 06/24/2025 7:57 AM EDT Plan of Treatment Upcoming Encounters Date Type Department Care Team (Late st Contact Info) Description 07/22/2025 1:30 PM EDT Office Visit [address] [place] [address] Eunice Sanz, TIFFANIE [address] [place] [address], [address] [place] [address] [email or web address] 07/23/2025 8:00 AM EDT Office Visit [facility] Rheumatology [address] [place] [address] Margaux Montanez MD [address] [place] [address], [address] [place] [address] [email or web address] 09/10/2025 9:00 AM EST Office Visit [facility] [address] [place] [address] Unknown, Unknown, Shreyas Limon MD [address] [place] [address] 09/21/2025 2:30 PM EST Office Visit [facility], Allergy and Critical Care Medicine [address] [facility] [place] [address] Lester Hicks MD [address] [place] [id number] 10/13/2025 9:20 AM EST Office Visit [facility] [address] [place] [address] [place] [address] Doretha Glynn MD [address] [place] [address] [address] [place] [address] [email or web address] 12/22/2025 8:30 AM EDT Office Visit [address] [place] [address] Eunice Sanz, PLASTER PATTERN CASTER [address] [place] [address], [address] [place] [address] [email or web address] 06/30/2026 8:00 AM EDT Office Visit [address] [place] [address] Eunice Sanz, PLASTER PATTERN CASTER [address] [place] [address], [address] [place] [address] [email or web address] Health Maintenance Due Date Last Done Comments COLOGUARD 2007 FOBT 2007 SIGMOIDOSCOPY 2007 VIRTUAL COLONOSCOPY 2007 FIT TEST 04/15/2021 04/15/2020 COVID-19 VACCINE ( season) 2025 08/03/2021, 03/09/2021, 02/16/2021 LIPID PANEL 12/08/2025 12/08/2020 TSH LEVEL 12/10/2025 12/10/2024, 09/09, 02/26/2024, Additional history exists BLOOD PRESSURE 12/22/2025 06/24/2025 POTASSIUM LEVEL 03/12/2026 03/12/2025, 02/06, 11/14/2023, Additional history exists CREATININE LEVEL 05/14/2026 05/14/2025, 02/2025, 12/10/2024, Additional history exists Adult Td,Tdap Booster 06/13/2026 06/13/2016 COLONOSCOPY 06/20/2026 06/20/2024, 07/17/2017 COLORECTAL CANCER SCREENING 06/20/2026 DEPRESSION SCREENING 06/23/2026 06/23/2025, 10/29/19 24 MAMMOGRAM 06/25/2027 06/25/2025, 12/08, 07/27/2021, Additional history exists SCREENING FOR DIABETES 03/12/2028 03/12/2025 PAP SMEAR 06/24/2030 06/24/2025, 11/11/2019 HEPATITIS C SCREENING Completed 07/14/2014 HIV ONE-TIME SCREENING (18-65 YEARS) Completed 07/14/2014 ZOSTER VACCINES Completed 11/23/2020, 05/23/2020 RSV VACCINE Completed 07/04/2023 PNEUMOCOCCAL VACCINES (50+ years) Completed 06/17/2024, 06/22/2016, 06/11/2014 INFLUENZA VACCINE Completed 06/24/2025, , 07/04/2023, Additional history exists SMOKING STATUS SCREENING (Once After 26 Yrs) Completed 06/25/2025 HEPATITIS A VACCINES Aged Out No long [...] Procedure Name Priority Date/Time Associated Diagnosis Comments BI MAMMOGRAM SCREENING WITH TOMOSYNTHESIS WITH CAD (BILATERAL) Routine 06/25/2025 7:54 AM EDT Screening breast examination ECG 12-LEAD Routine 06/24/2025 8:21 AM EDT Encounter for medication monitoring PAP TEST Routine 06/24/2025 12:00 AM EDT TOTAL PROTEIN CREATININE RATIO, RANDOM URINE Routine 05/14/2025 3:12 PM EDT SLE-Sjogren overlap syndrome Sjogren's syndrome with lung involvement Inflammatory arthritis 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, nursing home, current use DOUBLE STRANDED DNA ANTIBODIES Routine 05/14/2025 3:12 PM EDT SLE-Sjogren overlap syndrome Sjogren's syndrome with lung involvement Inflammatory arthritis 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, terminologist, current use CPK (CREATINE KINASE) Routine 05/14/2025 3:12 PM EDT SLE-Sjogren overlap syndrome Sjogren's syndrome with lung involvement Inflammatory arthritis 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, terminologist, current use COMPLEMENT C4 Routine 05/14/2025 3:12 PM EDT SLE-Sjogren overlap syndrome Sjogren's syndrome with lung involvement Inflammatory arthritis 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, nursing home, current use COMPLEMENT C3 Routine 05/14/2025 3:12 PM EDT SLE-Sjogren overlap syndrome Sjogren's syndrome with lung involvement Inflammatory arthritis 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, terminologist, current use CBC AND DIFFERENTIAL Routine 05/14/2025 3:12 PM EDT SLE-Sjogren overlap syndrome Sjogren's syndrome with lung involvement Inflammatory arthritis 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, nursing home, current use SEDIMENTATION RATE (ESR) Routine 05/14/2025 3:12 PM EDT SLE-Sjogren overlap syndrome Sjogren's syndrome with lung involvement Inflammatory arthritis 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, terminologist, current use C-REACTIVE PROTEIN Routine 05/14/2025 3: 12 PM EDT SLE-Sjogren overlap syndrome Sjogren's syndrome with lung involvement Inflammatory arthritis 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, nursing home, current use COMPREHENSIVE METABOLIC PANEL Routine 05/14/2025 3:12 PM EDT SLE-Sjogren overlap syndrome Sjogren's syndrome with lung involvement Inflammatory arthritis 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, terminologist, current use BASIC METABOLIC PANEL STAT 03/12/2025 6:10 AM EDT TSH Routine 12/10/2024 4:12 PM EST 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 ENDOSCOPY, COLON 06/20/2024 9:51 AM EDT LIPID PANEL Routine 12/08/2020 4:37 PM EST Annual physical exam HC BLOOD OCCULT FECAL HGB DETER IA QUAL FECES 1-3 Routine 04/15/2020 8:00 AM EDT Fatigue, unspecified type Diarrhea, unspecified type OUTSIDE HIV Routine 07/14/2014 OUTSIDE HEPATITIS C VIRUS SCREENING Routine 07/14/2014 from Last 3 Months or Most Recently Relevant to Health Maintenance Results * BI MAMMOGRAM SCREENING WITH TOMOSYNTHESIS WITH CAD (BILATERAL) (06/25/2025 7:54 AM EDT) Anatomical Region Laterality Modality Breast Left, Breast Right, Breast Bilateral Bila teral Mammography 06/25/2025 12:4 1 PM EDT Impressions 06/25/2025 12:47 PM EDT No mammographic evidence of malignancy in either breast. Annual screening mammography is recommended. BI-RADS 1 NEGATIVE The patient will be notified of the results and recommendations. Narrative 06/25/2025 12:47 PM EDT BI MAMMOGRAM SCREENING WITH TOMOSYNTHESIS WITH CAD (BILATERAL) Additional patient information: Screening. COMPARISON: Comparison is made with relevant prior imaging. Breast composition: There are scattered areas of fibroglandular density. FINDINGS: No abnormal masses, suspicious calcifications, or other significant findings are identified mammographically in either breast. Procedure Note Joelle Quinn MD - 06/25/2025 BI MAMMOGRAM SCREENING WITH TOMOSYNTHESIS WITH CAD (BILATERAL) Additional patient information: Screening. COMPARISON: Comparison is made with relevant prior imaging. Breast composition: There are scattered areas of fibroglandular density. FINDINGS: No abnormal masses, suspicious calcifications, or other significantfindings are identified mammographically in either breast. IMPRESSION: No mammographic evidence of malignancy in either breast. Annual screening mammography is recommended. BI-RADS 1 NEGATIVE The patient will be notified of the results and recommendations. Eunice Sanz CNP IMG MG EXAMS Final Res ult * ECG 12-LEAD (06/24/2025 8:21 AM EDT) Narrative EXTERNAL NON-INTERFACED REF LAB - 06/24/2025 8:21 AM EDT Type of EKG: Standard. Global (75228). Notes Sinus rhythm. QTc 450 ms, up from 433 in 2022. Slight left precordial repolarization disturbance. No ST/T wave changes. Echo ordered. Andreaemma Valentin MORENO ECG ORDERABLES Edited Re sult - Final EXTERNAL NON-INTERFACED REF LAB * Pap Test (06/24/2025 12:00 AM EDT) 06/24/2025 06/25/2025 9:5 5 AM EDT Narrative SEE NARRATIVE - 07/01/2025 12:30 [place] [address] Chef: Dilan Sams MD AGILE QA TESTER Cytology Report FINAL DIAGNOSIS A. PAP SMEAR (THIN PREP) CE: SPECIMEN ADEQUACY: Unsatisfactory for evaluation. Specimen processed and examined, but unsatisfactory due to insufficient squamous component. INTERPRETATION: UNSATISFACTORY FOR EVALUATION. A diagnosis cannot be rendered on an unsatisfactory specimen. This specimen was analyzed by the automated ThinPrep Imaging System ([employer].) and manually rescreened by a director of strategic marketing and/or pathologist. Electronically Signed Out By: MD Shantell Duran CT(ASCP) By his/her signature above, the pathologist listed as making the Final Diagnosis certifies that he/she has personally reviewed this case and confirmed or corrected the diagnosis. The Pap test is a screening test primarily for squamous cancers and precursors and has associated false-negative and false-positive results. New technologies such as liquid-based preparations may decrease but will not eliminate all false-negative results. Regular sampling and follow-up of unexplained clinical signs and symptoms are recommended to minimize false negative results. PROCEDURES/ADDENDA HPV Testing (Requested) Ordered Date: 06/25/2025 A. PAP SMEAR (THIN PREP) CE: High-risk HPV Panel w/ extended genotyping NEG HPV 16-NEG HPV 18-NEG HPV 45-NEG HPV 33/58-NEG HPV 31-NEG HPV 56/59/66-NEG HPV 51-NEG HPV 52-NEG HPV 35/39/68-NEG Performed by real-time polymerase chain reaction (PCR) at [facility], [address] [place] [address] using the FDA-approved [employer] Onclarity HPV Assay with extended genotyping. Uses of the assay in scenarios other than those approved by the FDA should be considered off-label use. The accuracy and precision of this test for all other off-label specimen sources has been verified in the Cytopathology Laboratory of the [facility] and has not been cleared or approved by the U.S. Food and Drug Administration. Clinical correlation is advised. The assay assesses the E6/E7 DNA target and utilizes human beta globin as an internal control. Cytology and HPV testing are screening assays and should not be used as the sole means of detecting cancer. False-positives and false-negatives can occur. CLINICAL HISTORY Date of Last Menstrual Period: Not Provided Menstrual History: Post Menopausal Other Clinical Conditions: Screening Pap SPECIMEN SOURCE A: PAP SMEAR (THIN PREP) CE Patient Name: HERLINDA HASKINS : 1960 (Age: 65) Sex: F Institution: [facility] Location: [facility] Date of Collection: 06/24/2025 Date of Reported: 07/01/2025 12:30 Results to: Eunice GARCIA Eunice Sanz [facility] CYTOLOGY ORDERABLES Final Result SEE NARRATIVE * Total protein creatinine ratio, random urine (05/14/2025 3:12 PM EDT) Urine (Urine) us Margaux Montanez MD URINE ORDERABLES Final R esult Performing Organization Address [facility] de Phone Number EXTERNAL NON-INTERFACED REF LAB * Double stranded DNA antibodies (05/14/2025 3:12 PM EDT) Blood Margaux Montanez MD LAB BLOOD ORDERABLES Fin al Result Performing Organization Address [facility] de Phone Number EXTERNAL NON-INTERFACED REF LAB * CPK (creatine kinase) (05/14/2025 3:12 PM EDT) Blood Margaux Montanez MD LAB BLOOD ORDERABLES Fin al Result Performing Organization Address [facility] de Phone Number EXTERNAL NON-INTERFACED REF LAB * Complement C4 (05/14/2025 3:12 PM EDT) Blood Margaux Montanez MD LAB BLOOD ORDERABLES Fin al Result Performing Organization Address [facility] de Phone Number EXTERNAL NON-INTERFACED REF LAB * Complement C3 (05/14/2025 3:12 PM EDT) Blood Margaux Montanez MD LAB BLOOD ORDERABLES Fin al Result Performing Organization Address [facility] de Phone Number EXTERNAL NON-INTERFACED REF LAB * CBC and differential (05/14/2025 3:12 PM EDT) Blood Margaux Montanez MD LAB BLOOD ORDERABLES Fin al Result Performing Organization Address [facility] de Phone Number EXTERNAL NON-INTERFACED REF LAB * Sedimentation rate (ESR) (05/14/2025 3:12 PM EDT) Blood Margaux Montanez MD LAB BLOOD ORDERABLES Fin al Result Performing Organization Address [facility] de Phone Number EXTERNAL NON-INTERFACED REF LAB * C-Reactive Protein (05/14/2025 3:12 PM EDT) Blood Margaux Montanez MD LAB BLOOD ORDERABLES Fin al Result Performing Organization Address [facility] de Phone Number EXTERNAL NON-INTERFACED REF LAB * Comprehensive metabolic panel (05/14/2025 3:12 PM EDT) Blood Margaux Montanez MD LAB BLOOD ORDERABLES Fin al Result Performing Organization Address [facility] de Phone Number EXTERNAL NON-INTERFACED REF LAB * Basic metabolic panel (03/12/2025 6:10 AM EDT) SODIUM 142 136 - 145 mmol/L [facility] POTASSIUM 3.4 3.4 - 5.1 mmol/L [facility] CHLORIDE 103 98 - 107 mmol/L [facility] CO2 31 22 - 31 mmol/L [facility] BUN 11 6 - 23 mg/dL [facility] CREATININE 0.80 0.50 - 1.20 mg/dL [facility] GLUCOSE 84 70 - 100 mg/dL [facility] CALCIUM 9.7 8.8 - 10.7 mg/dL [facility] EGFR 83 >59 mL/min/1.7 3m2 [facility] Comment:Estimated glomerular filtration rate calculated using the CKD-EPI refit equation. ANION GAP 8 7 - 17 mmol/L [facility] 03/12/2025 6:10 AM EDT 03/12/2025 6:48 AM EDT us Lj Moscoso MD, MPH LAB BLOOD ORDERABLES Final Result [facility] [address] [place] [address] * TSH (12/10/2024 4:12 PM EST) Blood us Doretha Glynn MD LAB BLOOD ORDERABLES Final Res ult Performing Organization Address City/[facility]/ZIP Co de Phone Number EXTERNAL NON-INTERFACED REF LAB * ENDOSCOPY, COLON (06/20/2024 9:51 AM EDT) Narrative Transcriptions Shreyas Murphy MD - 06/20/2024 9:51 AM EDT [facility] Patient Name: Herlinda Haskins Attending MD:: SHREYAS MURPHY MD, Procedure Date: 06/20/2024 9:51 AM Date of : 1960 Age: 64 Admit Type: Outpatient Gender: Female Room: [place] [address] Referring MD: EUNICE SANZ Exam Type: Colonoscopy [...] 9:51 AM Procedure Code(s): --- Professional --- 22538, Colonoscopy, flexible; with biopsy, single or multiple --- Technical --- 73694, Colonoscopy, flexible; with biopsy, single or multiple Diagnosis Code(s): --- Professional --- K52.9, Noninfective gastroenteritis and colitis, unspecified --- Technical --- K52.9, Noninfective gastroenteritis and colitis, unspecified CPT copyright 2021 [employer]. All rights reserved. The codes documented in this report are preliminary and upon medical insurance coder reviewmay be revised to meet current compliance requirements. Procedure Date: 06/20/2024 9:51:53 AM [address] [place] [address] us Eunice Sanz PLASTER PATTERN CASTER GI PROCEDURE ORDERABLES F inal Result * (ABNORMAL) Lipid panel (12/08/2020 4:37 PM EST) HDL 60 mg/dL [facility] Comment: Interpretation <40 mg/dL: Low HDL cholesterol (major risk factor for CHD) Greater than or equal to 60 mg/dL: High HDL cholesterol ( negative risk factor for CHD) HDL - cholesterol is affected by a number of factors, e.g. smoking, excerise, hormones, sex and age. CHOLESTEROL 192 0 - 240 mg/dL [facility] TRIGLYCERIDES 139 30 - 160 mg/dL [facility] LDL 104 50 - 129 mg/dL [facility] Comment: LDL levels in terms of risk for coronary heart disease: <100 mg/dL: Optimal 100-129 mg/dL: Near or above optimal 130-159 mg/dL: Borderline high 160-189 mg/dL: High >190 mg/dL: Very High CARDIAC RISK RATIO 3.2(L) 3.3 - 4.4 C [facility] Blood 12/08/2020 4:37 PM EST 12/08/2020 4:45 PM EST us Mamta Whitney DO LAB BLOOD ORDERABLES Final Result [address] [address] * Fecal immunochemical test x1 (FIT) (04/15/2020 8:00 AM EDT) Immuno Fecal Occult Negative [facility] Stool (Stool) 04/15/2020 8:0 0 AM EDT 04/15/2020 4:23 PM EDT us Alise Winkler PA-C BODY FLUIDS AND STOOLS ORDERABL ES Final Result Performing Organization Address City/[facility]/ZIP Co de Phone Number [address] [address] * Outside Hepatitis C Virus Screening (07/14/2014) Hepatitis C Screening - External Neg Historical Provider LAB BLOOD ORDERABLES Ibis l Result * OUTSIDE HIV TEST (07/14/2014) HIV - External Neg Historical Provider LAB BLOOD ORDERABLES Ibis l Result from Last 3 Months or Most Recently Relevant to Health Maintenance Insurance [employer] Member Subscriber Plan / Payer ( fective 2023-Present) Name:Herlinda Haskins Relation to Subscriber:Self Name:Herlinda Haskins Payer ID:[id number] (NAIC) Type:PPO Address: [address] [place] [employer] Member Subscriber Plan / Payer (Ef fective 2023-Present) Name:Herlinda Haskins Relation to Subscriber:Self Name:Herlinda Haskins Payer ID:[id number] (NAIC) Type:PPO Address: [place] [id number] [place] [address] [employer] Member Subscriber Plan / Payer ( fective 2023-) Name:Herlinda Haskins Relation to Subscriber:Self Name:Herlinda Haskins Payer ID:[id number] (NAIC) Type:PPO Address: [address] [employer] [facility] BENEFITS ADMINISTRATORS [facility] [place] [address] Advance Directives For more information, please contact: [phone] (9AM - 5PM [facility], Sunday-Sunday) Documents on File Type Date Recorded Patient Contact Lens Polisher Expl anation Healthcare Proxy 11/21/2022 3:55 PM [...] Code Status Confirmed With: Patient Care Teams Senior Technical Support Engineer Relationship Specialty Start Date End Date Andrea SanzemmaTIFFANIE [address] [place] [address], [address] [place] [address] PCP - General Family Medicine 02/11/21 Lester Hicks MD [address] [place] [address] [email or web address] Historical LMR Provider 07/28/17 Margaux Montanez MD [address] [place] [address], [address] [place] [address] Historical LMR Provider 07/28/17 Khang Kilgore MD [address] [place] [address], [address] [place] [address] Insurance Assigned Provider 01/12/24 Shreyas Murphy MD [address] [place] [address] Gastroenterology 06/17/24 Doretha Glynn MD [address] [place] [address] Endocrinology 06/17/24 Radha Pereira RN [address] [place] [phone] [employer] Business Sales ConsultantNail Tech 06/11/25 Additional Source Comments The information contained in this document represents components of the legal health record. It is not the complete legal health record.[facility]
--- OUTSIDE RECORDS SUMMARY | 2025-07-13 08:51 | XMS_ITS | Encounter Summary ---
Author Organization Formerly [facility] Address [address] [place] [address] Phone Care Team Providers Care Family Practice Medical Doctor Name Role Phone Lester Hicks MD Unavailable [phone] Margaux Montanez MD Unavailable Johann Hanson CNP Primary Care Provider [phone] Khang Kilgore MD Unavailable Neisha Pinto RN Unavailable [email or web address] Shreyas Wilson MD Unavailable Doretha Glynn MD Unavailable [phone] Izzy Hackett Unavailable [email or web address] Radha Pereira RN Unavailable Encounter Details Date Type Department Care Team (Late st Contact Info) Description 06/20/2024 Procedure Pass [facility] Endoscopy Admitting Dept Virtual Department [address] [place], [place] [id number] Social History Tobacco Use Types Packs/Day Years [...] high school, GED, job training, learning the [place]ill[place] language, technical skills, or developing parenting skills)? [...] Description 07/22/2025 1:30 PM EDT Office Visit [facility] Family Medicine [address] [place] [address] [place] [address] Johann Hanson, MACHINE FILLER [address] [facility], [address] [place] [address] [email or web address] 07/23/2025 8:00 AM EDT Office Visit [facility] Rheumatology [address] [place] [address] Margaux Montanez MD [address] [facility], [address] [place] [address] [email or web address] 09/10/2025 9:00 AM EST Office Visit [facility] Gastroenterology Clinic [address] [place] [address] Unknown, Unknown, Shreyas Limon MD [address] [place] [phone] 09/21/2025 2:30 PM EST Office Visit [facility] Pulmonary, Allergy and Critical Care Medicine [address] [place] [address] Lester Hicks MD [address] [place] [address] 10/13/2025 9:20 AM EST Office Visit [facility] Endocrinology [address] [place] [address] [place] [address] Doretha Glynn MD [address] [place] [phone] [email or web address] 12/22/2025 8:30 AM EDT Office Visit [address] [place] [address] Johann Hanson CNP [address] [place] [address], [address] [place] [address] [email or web address] 06/30/2026 8:00 AM EDT Office Visit [address] [place] [address] Johann Hanson, MACHINE FILLER [address] [place] [address], [address] [place] [address] [email or web address] documented as of this encounter Visit Diagnoses Not on filedocumented in this encounter Additional Health Concerns Assessment Noted Time PHQ-9 Depression Total Score: 4 10/29/19 24 1:54 PM EST PHQ-2 Depression Total Score: 0 06/10/20 24 9:22 AM EDT documented as of this encounter Care Teams Family Practice Medical Doctor Relationship Specialty Start Date End Date Johann Hanson CNP [address] [place] [address], [address] [place] [address] [email or web address] PCP - General Family Medicine 02/11/21 Lester Hicks MD [address] [place] [address] Historical LMR Provider 07/28/17 Margaux Montanez MD [address] [place] [address], [address] [place] [address] [email or web address] Historical LMR Provider 07/28/17 Khang Kilgore MD [address] [place] [address], [address] [place] [address] [email or web address] Insurance Assigned Provider 01/12/24 Neisha Pinto RN [address] [facility], [address] [place] [address] [email or web address] [email or web address] 02/26/23 06/10/25 Shreyas Wilson MD [address] [place] [address] [email or web address] Gastroenterology 06/17/24 Doretha Glynn MD [address] [place] [address] [address] [place] [address] [email or web address] Endocrinology 06/17/24 Izzy Hackett [address] [place] [address] [email or web address] 09/11/24 09/11/24 Radha Pereira RN [address] [place] [address] [email or web address] [facility] [employer] Terrain Vehicle RacerWood Casket Maker 06/11/25 documented as of this encounter Additional Source Comments The information contained in this document represents components of the legal health record. It is not the complete legal health record.[facility]
--- OUTSIDE RECORDS SUMMARY | 2025-07-13 08:51 | XMS_ITS | Encounter Summary ---
Author Organization [facility] Address [address] [place] [address] Phone Care Team Providers Care Space Systems Operations Craftsman Name Role Phone Lester Hicks MD Unavailable [phone] Margaux Montanez MD Unavailable Johann Hanson CNP Primary Care Provider [phone] Khang Kilgore MD Unavailable [phone] Luis Ignacio DO Unavailable Flo Esteban MD Unavailable [phone] Neisha Pinto RN Unavailable [email or web address] Shreyas Wilson MD Unavailable Doretha Glynn MD Unavailable [phone] Izzy Hackett Unavailable [email or web address] Radha Pereira RN Unavailable [phone] Encounter Details Date Type Department Care Team (Late st Contact Info) Description 12/22/2022 Procedure Pass [facility], [address] [id number] Social History Tobacco Use Types Packs/Day Years [...] Description 07/22/2025 1:30 PM EDT Office Visit [facility] Family Medicine [address] [place] [address] [place] [address] Johann Hanson, TIFFANIE 22 [facility], [address] [place] [address] [email or web address] 07/23/2025 8:00 AM EDT Office Visit [facility] Rheumatology [address] [place] [address] [place] [address] Margaux Montanez MD 22 [facility], [address] [place] [address] [email or web address] 09/10/2025 9:00 AM EST Office Visit [facility]ology [facility] 10 [place] [address] Unknown, [place], Shreyas Limon MD [address] [address] 09/21/2025 2:30 PM EST Office Visit [facility] Pulmonary, Allergy [facility] Critical Care Medicine 10 [facility] [place] [address] Lester Hicks MD [address] [place] [address] 2nd [place] [address] 10/13/2025 9:20 AM EST Office Visit [facility] [address] [place] [address] [place] [address] Doretha Glynn MD [address] [place] [address] 3rd [place] [address] [email or web address] 12/22/2025 8:30 AM EDT Office Visit [address] [place] [address] Johann Hanson, SPRING INTERN [address] [place] [address], [address] [place] [address] [email or web address] 06/30/2026 8:00 AM EDT Office Visit [address] [place] [address] Johann Hanson, SPRING INTERN [address] [place] [address], [address] [place] [address] [email or web address] documented as of this encounter Visit Diagnoses Not on filedocumented in this encounter Additional Health Concerns Infection Onset Date Last Indicated Resolved Time COVID-19 10/07/2023 10/07/2023 10/28/2023 1:21 AM EST Assessment Noted Time PHQ-2 Depression Total Score: 0 01/01/20 23 1:26 PM EDT documented as of this encounter Care Teams Space Systems Operations Craftsman Relationship Specialty Start Date End Date Johann Hanson CNP [address] [place] [address], [address] [place] [address] PCP - General Family Medicine 02/11/21 Lester Hicks MD [address] [place] [address] Historical LMR Provider 07/28/17 Margaux Montanez MD [address] [place] [address], [address] [place] [address] [email or web address] Historical LMR Provider 07/28/17 Khang Kilgore MD [address] [place] [address], [address] [place] [address] Insurance Assigned Provider 01/12/24 Luis Ignacio DO [address] [place] [address], [address] [place] [address] Cardiology 06/28/22 06/16/24 Flo Esteban MD [address] [place] [address] [place] [address] [email or web address] Cardiothoracic Surgery 06/28/22 06/16/24 Neisha Pinto, RANDI [address] [place], [place] [address]D[address] [place] [address] [email or web address] Oil Plant Operator 02/26/23 06/10/25 Shreyas Wilson MD [address] [place] [address] Gastroenterology 06/17/24 Doretha Glynn MD [address] [place] [address] Endocrinology 06/17/24 Izzy Hackett [address] [place] [address] [email or web address] [facility] Community Clinical Support Manager 09/11/24 09/11/24 Radha Pereira RN [address] [place] [address] [facility] Oil Plant OperatorApplications Instructor 06/11/25 documented as of this encounter Additional Source Comments The information contained in this document represents components of the legal health record. It is not the complete legal health record.[facility]
--- OUTSIDE RECORDS SUMMARY | 2025-07-13 08:51 | XMS_ITS | Clinical Summary ---
Author Organization [facility] Address [address] [place] [address] Care Team Providers Care Insurance Risk Surveyor Name Role Phone Unavailable Primary Care Provider [...]
--- OUTSIDE RECORDS SUMMARY | 2025-07-13 08:52 | XMS_ITS | Encounter Summary ---
Author Organization [facility] Address [address] [place] [address] Phone Care Team Providers Care Shearer Screen Measurer And Trimmer Name Role Phone Tricia Balderas DO Unavailable Lester Hicks MD Unavailable [phone] Margaux Montanez MD Unavailable Demario Floyd MD Unavailable Pam Benson MD Unavailable Adithya Campos DIRECTOR LEARNING Unavailable Johann Hanson DIRECTOR LEARNING Primary Care Provider [phone] Khang Kilgore MD Unavailable Luis Ignacio DO Unavailable Flo Esteban MD Unavailable [phone] Dilan Rowland MD Unavailable [phone] Corby Prado MD Unavailable [phone] Neisha Pinto RN Unavailable [email or web address] Shreyas Wilson MD Unavailable Doretha Glynn MD Unavailable [phone] Izzy Hackett Unavailable sami RandallaRdha RANDI Unavailable Encounter Details Date Type Department Care Team (Late Contact Info) Description 02/22/2021 Procedure Pass [facility], [facility] [address] [place] [address] Social History Tobacco Use Types Packs/Day Years [...] high school, GED, job training, learning the Kuwaiti language, technical skills, or developing parenting skills)? [...] Upcoming Encounters Date Type Department Care Team ([facility] Contact Info) Description 07/22/2025 1:30 PM EDT Office Visit [address] [place] [address] Johann Hanson, DIRECTOR LEARNING [address] [place] [address], [address] [place] [address] [email or web address] 07/23/2025 8:00 AM EDT Office Visit [facility] Rheumatology [address] [place] [address] Margaux Montanez MD [address] [place] [address], [address] [place] [address] [email or web address] 09/10/2025 9:00 AM EST Office Visit [facility] Gastroenterology Clinic [address] [place] [address] Unknown, [place], Shreyas Limon MD [address] [place] [address] 09/21/2025 2:30 PM EST Office Visit [facility] Pulmonary, Allergy and Critical Care Medicine [address] [place] [address] Lester Hicks MD [address] [place] [address] 10/13/2025 9:20 AM EST Office Visit [facility] [address] [place] [address] [place] [address] Doretha Glynn MD [address] [place] [address] [email or web address] 12/22/2025 8:30 AM EDT Office Visit [address] [place] [address] Johann Hanson, DIRECTOR LEARNING [address] [place] [address], [address] [place] [address] [email or web address] 06/30/2026 8:00 AM EDT Office Visit [facility] 22 [place] [address] Johann Hanson CNP 22 [facility], [address] [place] [address] [email or web address] documented as of this encounter [...] documented as of this encounter Care Teams Shearer Screen Measurer And Trimmer Relationship Specialty Start Date End Date Johann Hanson CNP 22 [facility], [address] [place] [address] PCP - General Family Medicine 02/11/21 Tricia Balderas DO 30 [place] [address] [email or web address] Historical LMR Provider 07/28/17 10/15/21 Lester Hicks MD [address] [place] [address] [email or web address] Historical LMR Provider 07/28/17 Margaux Montanez MD 22 [facility], [address] [place] [address] [email or web address] Historical LMR Provider 07/28/17 Demario Floyd MD [address] [place] [address] [email or web address] Historical LMR Provider 07/28/17 2 Pam Benson MD [address] [place] [address], [address] [place] [address] [email or web address] Historical LMR Provider 07/28/17 Adithya Campos CNP [address] [place] [address], [address] [place] [address] [email or web address] Historical LMR Provider 07/28/17 12/25/21 Khang Kilgore MD [address] [place] [address], [address] [place] [address] [email or web address] Insurance Assigned Provider 01/12/24 Luis Ignacio DO [address] [place] [address], [address] [place] [address] Cardiology 06/28/22 06/16/24 Flo Esteban MD [address] [place] [address] [email or web address] Cardiothoracic Surgery 06/28/22 06/16/24 Dilan Rowland MD [address] [place] [address], [address] [place] [address] Insurance Assigned Provider 07/15/22 08/13/22 Corby Prado MD [address] [place] [address], [address] [place] [address] [email or web address] Insurance Assigned Provider 08/13/22 09/16/22 Neisha Pinto RN [address] [place] [address], [address] [place] [address] [email or web address] Adjunct Phlebotomy Instructor 02/26/23 06/10/25 Shreyas Wilson MD [address] [place] [address] Gastroenterology 06/17/24 Doretha Glynn MD [address] [place] [address] Endocrinology 06/17/24 Izzy Hackett [address] [place] [address] [email or web address] [facility] Community Direct Marketing Analyst 09/11/24 09/11/24 Radha Pereira, RN [address] [place] [address] [email or web address] [facility] Adjunct Phlebotomy InstructorBilingual Patient Support Caseworker 06/11/25 documented as of this encounter Additional Source Comments The information contained in this document represents components of the legal health record. It is not the complete legal health record.[facility]
--- OUTSIDE RECORDS SUMMARY | 2025-07-13 08:52 | XMS_ITS | Encounter Summary ---
Author Organization [facility] Address [address] [place] [address] [place] [address] Phone Care Team Providers Care Supervisor Cigarette Making Department Name Role Phone Lester Hicks MD Unavailable [phone] Margaux Montanez MD Unavailable Johann Hanson CNP Primary Care Provider [phone] Khang Kilgore MD Unavailable Neisha Pinto RN Unavailable [email or web address] Shreyas Wilson MD Unavailable Doretha Glynn MD Unavailable [phone] Radha Pereira RN Unavailable [phone] Encounter Details Date Type Department Care Team (Late st Contact Info) Description 01/13/2025 Procedure Pass [facility] L2 PRU [address] [place] [address] Social History Tobacco Use Types Packs/Day Years [...] high school, GED, job training, learning the [place] language, technical skills, or developing parenting skills)? [...] Description 07/22/2025 1:30 PM EDT Office Visit [facility] Medicine [address] [place] [address] [place] [address] Johann Hanson, TIFFANIE 22 [facility], [address] [place] [address] [email or web address] 07/23/2025 8:00 AM EDT Office Visit [facility] Rheumatology [address] [place] [address] Margaux Montanez MD [address] [place] [address], [address] [place] [address] [email or web address] 09/10/2025 9:00 AM EST Office Visit [facility] Gastroenterology Clinic 10 [place] [address] Unknown, Unknown, Shreyas Limon MD [address] [place] [address] 09/21/2025 2:30 PM EST Office Visit [facility] Pulmonary, Allergy and Critical Care Medicine 10 [place] [address] Lester Hicks MD [address] [place] [address] 10/13/2025 9:20 AM EST Office Visit [facility] [address] [place] [address] [place] [address] Doretha Glynn MD [address] [place] [address] [email or web address] 12/22/2025 8:30 AM EDT Office Visit [address] [place] [address] Johann Hanson CNP [address] [place] [address], [address] [place] [address] [email or web address] 06/30/2026 8:00 AM EDT Office Visit [address] [place] [address] Johann Hanson CNP [address] [place] [address], [address] [place] [address] [email or web address] documented as of this encounter Visit Diagnoses Not on filedocumented in this encounter Additional Health Concerns Assessment Noted Time PHQ-9 Depression Total Score: 4 10/29/19 24 1:54 PM EST PHQ-2 Depression Total Score: 0 06/10/20 24 9:22 AM EDT documented as of this encounter Care Teams Supervisor Cigarette Making Department Relationship Specialty Start Date End Date Johann Hanson CNP [address] [place] [address], [address] [place] [address] PCP - General Family Medicine 02/11/21 Lester Hicks MD [address] [place] [address] Historical LMR Provider 07/28/17 Margaux Montanez MD [address] [place] [address], [address] [place] [address] Historical LMR Provider 07/28/17 Khang Kilgore MD [address] [facility], [address] [place] [address] [email or web address] Insurance Assigned Provider 01/12/24 Neisha Pinto, RANDI [address] [facility], [address] [place] [address] [email or web address] iCMP Molasses Coloring Operator 02/26/23 06/10/25 Shreyas Wilson MD [address] [place] [address] [email or web address] Gastroenterology 06/17/24 Doretha Glynn MD [address] [place] [address] 3rd [place] [address] [email or web address] Endocrinology 06/17/24 Radha Pereira, RANDI [address] [place] [address] [email or web address] iCMP Molasses Coloring OperatorPhoto Journalist 06/11/25 documented as of this encounter Additional Source Comments The information contained in this document represents components of the legal health record. It is not the complete legal health record.[facility]
--- OUTSIDE RECORDS SUMMARY | 2025-07-13 08:52 | XMS_ITS | Encounter Summary ---
Author Organization [facility] Address [address] [place] [address] Phone Care Team Providers Care Bolt Machine Operator Name Role Phone Lester Hicks MD Unavailable [phone] Margaux Montanez MD Unavailable [phone] Johann Hanson CNP Primary Care Provider [phone] Khang Kilgore MD Unavailable [phone] Luis Ignacio DO Unavailable Flo Esteban MD Unavailable [phone] Neisha Pinto RN Unavailable [email or web address] Shreyas Wilson MD Unavailable [phone] Doretha Glynn MD Unavailable [phone] Izzy Hackett Unavailable [email or web address] Radha Pereira RN Unavailable [phone] Encounter Details Date Type Department Care Team (Late st Contact Info) Description 10/12/2022 Procedure Pass [facility] PERIOPERATIVE DEPT [address] [place] [address] Social History Tobacco Use Types [...] high school, GED, job training, learning the Egyptian language, technical skills, or developing parenting skills)? [...] Description 07/22/2025 1:30 PM EDT Office Visit [facility] Family Medicine [address] [place] [address] [place] [address] Johann Hanson, TIFFANIE 22 [facility], [address] [place] [address] [email or web address] 07/23/2025 8:00 AM EDT Office Visit [facility] Rheumatology [address] [place] [address] Margaux Montanez MD [address] [place] [address], [address] [place] [address] [email or web address] 09/10/2025 9:00 AM EST Office Visit [facility] Gastroenterology Clinic 10 [place] [address] Unknown, Unknown, Shreyas Limon MD [address] [address] 09/21/2025 2:30 PM EST Office Visit [facility] Pul[facility], Allergy and Critical Care Medicine 10 [place] [address] Lester Hicks MD [address] [place] [address] 2[address] [place] [address] 10/13/2025 9:20 AM EST Office Visit [facility] [address] [place] [address] [place] [address] Doretha Glynn MD [address] [place] [address] 3rd [place] [address] [email or web address] 12/22/2025 8:30 AM EDT Office Visit [address] [place] [address] Johann Hanson, PRESS TECHNICIAN [address] [place] [address], [address] [place] [address] [email or web address] 06/30/2026 8:00 AM EDT Office Visit [address] [place] [address] Johann Hanson, PRESS TECHNICIAN [address] [place] [address], [address] [place] [address] [email or web address] documented as of this encounter [...] documented as of this encounter Care Teams Bolt Machine Operator Relationship Specialty Start Date End Date Johann Hanson CNP [address] [place] [address], [address] [place] [address] PCP - General Family Medicine 02/11/21 Lester Hicks MD [address] [place] [address] Historical LMR Provider 07/28/17 Margaux Montanez MD [address] [place] [address], [address] [place] [address] [email or web address] Historical LMR Provider 07/28/17 Khang Kilgore MD [address] [place] [address], [address] [place] [address] Insurance Assigned Provider 01/12/24 Luis Ignacio DO [address] [place] [address], [address] [place] [address] Cardiology 06/28/22 06/16/24 Flo Esteban MD [address] [place] [address] [email or web address] Cardiothoracic Surgery 06/28/22 06/16/24 Neisha Pinto RN [address] [place] [address] [email or web address] Engraver Optical Frames 02/26/23 06/10/25 Shreyas Wilson MD [address] [place] [address] Gastroenterology 06/17/24 Doretha Glynn MD [address] [place] [address] Endocrinology 06/17/24 Izzy Hackett [address] [place] [address] [email or web address] [facility] Community Cafe Assistant 09/11/24 09/11/24 Radha Pereira RN [address] [place] [address] [email or web address] iCMP Engraver Optical FramesWarp Picker 06/11/25 documented as of this encounter Additional Source Comments The information contained in this document represents components of the legal health record. It is not the complete legal health record.[facility]
--- OUTSIDE RECORDS SUMMARY | 2025-07-13 08:52 | XMS_ITS | Encounter Summary ---
Author Organization [facility] Address [address] [place] [address] [place] [address] Phone Care Team Providers Care Butter Fat Tester Name Role Phone Lester Hicks MD Unavailable [phone] Margaux Montanez MD Unavailable Johann Hanson CNP Primary Care Provider [phone] Khang Kilgore MD Unavailable Luis Ignacio DO Unavailable Flo Esteban MD Unavailable [phone] Dilan Rowland MD Unavailable [phone] Corby Prado MD Unavailable [phone] Neisha Pinto RN Unavailable [email or web address] Shreyas Wilson MD Unavailable Doretha Glynn MD Unavailable [phone] Izzy Hackett Unavailable [email or web address] Radha Pereira RN Unavailable Encounter Details Date Type Department Care Team (Late st Contact Info) Description 02/28/2022 Procedure Pass [facility], Ct Scan - [address] [id number] Social History Tobacco Use Types Packs/Day Years [...] high school, GED, job training, learning the Burmese language, technical skills, or developing parenting skills)? [...] EDT Office Visit [facility] [address] [place] [address] Johann Hanson, TIFFANIE 22 [facility], [address] [place] [address] [email or web address] 07/23/2025 8:00 AM EDT Office Visit [facility] Rheumatology [address] [place] [address] Margaux Montanez MD [address] [place] [address], [address] [place] [address] [email or web address] 09/10/2025 9:00 AM EST Office Visit [facility] Gastroenterology Clinic 10 [place] [address] Unknown, Unknown, Shreyas Limon MD [address] [address] 09/21/2025 2:30 PM EST Office Visit [facility], Allergy and Critical Care Medicine 10 [facility] [place] [address] Lester Hicks MD [address] [place] [address] 2nd [place] [address] 10/13/2025 9:20 AM EST Office Visit [facility] [address] [place] [address] Doretha Glynn MD [address] [place] [address] 3[address] [place] [address] [email or web address] 12/22/2025 8:30 AM EDT Office Visit [address] [place] [address] Johann Hanson, TIFFANIE [address] [place] [address], [address] [place] [address] [email or web address] 06/30/2026 8:00 AM EDT Office Visit [address] [place] [address] Johann Hanson CNP 22 [facility], [address] [place] [address] [email or web address] documented as of this encounter Visit [...] documented as of this encounter Care Teams Butter Fat Tester Relationship Specialty Start Date End Date Johann Hasnon CNP [address] [place] [address], [address] [place] [address] [email or web address] PCP - General Family Medicine 02/11/21 Lester Hicks MD [address] [place] [address] [email or web address] Historical LMR Provider 07/28/17 Margaux Montanez MD [address] [place] [address], [address] [place] [address] [email or web address] Historical LMR Provider 07/28/17 Khang Kilgore MD [address] [place] [address], [address] [place] [address] Insurance Assigned Provider 4/6/24 Luis Ignacio DO [address] [place] [address], [address] [place] [address] Cardiology 06/28/22 06/16/24 Flo Esteban MD [address] [place] [address] [place] [address] [email or web address] Cardiothoracic Surgery 06/28/22 06/16/24 Dilan Rowland MD [address] [place] [address], [address] [place] [address] [email or web address] Insurance Assigned Provider 07/15/22 08/13/22 Corby Prado MD [address] [place] [address], [address] [place] [address] [email or web address] Insurance Assigned Provider 08/13/22 09/16/22 Neisha Pinto RN [address] [place] [address], [address] [place] [address] [email or web address] Secretary/Transcriptionist 02/26/23 06/10/25 Shreyas Wilson MD [address] [place] [address] [email or web address] Gastroenterology 06/17/24 Doretha Glynn MD [address] [place] [address] 3[address] [place] [address] Endocrinology 06/17/24 Izzy Hackett [address] [place] [address] [email or web address] [facility] Community Hand Spinner 09/11/24 09/11/24 Radha Pereira, RN [address] [place] [address] [email or web address] [facility] Pathology Secretary/TranscriptionistDredge Master 06/11/25 documented as of this encounter Additional Source Comments The information contained in this document represents components of the legal health record. It is not the complete legal health record.[facility]
--- OUTSIDE RECORDS SUMMARY | 2025-07-13 08:52 | XMS_ITS ---
Author Organization [facility] Address [address] [place] [address] [place] [address] Phone Care Team Providers Care Operations Intelligence Superintendent Name Role Phone Lester Hicks MD Unavailable [phone] Margaux Montanez MD Unavailable [phone] Johann Hanson CNP Primary Care Provider [phone] Khang Kilgore MD Unavailable [phone] Shreyas Wilson MD Unavailable [phone] Doretha Glynn MD Unavailable [phone] Radha Pereira RN Unavailable [phone] Population Health Care Management (PHCM) Status:Enrolled (Active) Start date:10/23/2023 Enrollment date:10/23/2023 Current support & services provided:[facility] Related social drivers of health:Housing Stability, Child or Family Care, Education, Food, Unemployment, Paying for Meds, Paying Utility Bills, Transportation, Digital Access, SNAP/WIC Case Team Name Relationship Phone Email Radha Pereira RN Registered Nurse(Responsible Staff) [phone] Izzy Herbert PHCM Wheel Grinder [email or web address] Continued Care and Services Coordination
--- OUTSIDE RECORDS SUMMARY | 2025-07-13 08:52 | XMS_ITS | Encounter Summary ---
Author Organization [facility] Address [address] [place] [address] Phone Care Team Providers Care Director Of Digital Platforms Name Role Phone Lester Hicks MD Unavailable [phone] Margaux Montanez MD Unavailable [phone] Johann Hanson CNP Primary Care Provider [phone] Khang Kilgore MD Unavailable Luis Ignacio DO Unavailable Flo Esteban MD Unavailable [phone] Neisha Pinto RN Unavailable [email or web address] Shreyas Wilson MD Unavailable Doretha Glynn MD Unavailable [phone] Izzy Hackett Unavailable [email or web address] Radha Pereira RN Unavailable Encounter Details Date Type Department Care Team (Latest Contact Info) Description 12/28/2023 Transcribe Orders Virtual Department 30 [place] [address] Shreyas Wilson MD [address] [place] [address] [phone] Dysphagia, unspecified type (Primary Dx); Nausea and [...] Description 07/22/2025 1:30 PM EDT Office Visit [facility] Family Medicine [address] [place] [address] [place] [address] Johann Hanson, TIFFANIE [address] [place] [address], [address] [place] [address] [email or web address] 07/23/2025 8:00 AM EDT Office Visit [facility] Rheumatology [address] [place] [address] [place] [address] Margaux Montanez MD [address] [place] [address], [address] [place] [address] [email or web address] 09/10/2025 9:00 AM EST Office Visit [facility] Gastroenterology Clinic 10 [place] [address] Unknown, Unknown, Shreyas Limon MD [address] [place] [address] 09/21/2025 2:30 PM EST Office Visit [facility] Pulmonary, Allergy and Critical Care Medicine 10 [place] [address] Lester Hicks MD [address] [place] [address] 10/13/2025 9:20 AM EST Office Visit [facility] Endocrinology [address] [place] [address] [place] [address] Doretha Glynn MD [address] [place] [address] [email or web address] 12/22/2025 8:30 AM EDT Office Visit [address] [place] [address] Johann Hanson, CEMETERY WARDEN [address] [facility], [address] [place] [address] [email or web address] 06/30/2026 8:00 AM EDT Office Visit [address] [place] [address] Johann Hanson, CEMETERY WARDEN [address] [place] [address], [address] [place] [address] [email or web address] documented as of this encounter [...] CONTRAST 03/03/2022. OPERATORS: Ronnell Maurer SUPERVISING PHYSICIAN: Lesetr Michel TECHNIQUE: Double contrast barium swallow examination [...] createdby Ronnell Maurer. Shreyas Wilson MD [facility] Final Result documented in this encounter Visit [...] of this encounter Care Teams Director Of Digital Platforms Relationship Specialty Start Date End Date Johann Hanson CNP [address] [place] [address], [address] [place] [address] PCP - General Family Medicine 02/11/21 Lester Hicks MD [address] [place] [address] Historical LMR Provider 07/28/17 Margaux Montanez MD [address] [place] [address], [address] [place] [address] [email or web address] Historical LMR Provider 07/28/17 Khang Kilgore MD [address] [place] [address], [address] [place] [address] Insurance Assigned Provider 01/12/24 Luis Ignacio DO [address] [facility], [address] [place] [address] Cardiology 06/28/22 06/16/24 Flo Esteban MD [address] [place] [address] [email or web address] Cardiothoracic Surgery 06/28/22 06/16/24 Neisha Pinto RN [address] [place] [address] [email or web address] iCMP Paving Stone Installer 02/26/23 06/10/25 Shreyas Wilson MD [address] [place] [address] Gastroenterology 06/17/24 Doretha Glynn MD [facility] 3rd [place] [address] Endocrinology 06/17/24 Izzy Hackett [address] [place] [address] [email or web address] [facility] Community Car Ferry Master 09/11/24 09/11/24 Radha Preeira RN [address] [place] [address] iCMP Paving Stone InstallerGuidance Secretary 06/11/25 documented as of this encounter Additional Source Comments The information contained in this document represents components of the legal health record. It is not the complete legal health record.[facility]
--- OUTSIDE RECORDS SUMMARY | 2025-07-13 08:52 | XMS_ITS | Encounter Summary ---
Author Organization [facility] Address [address] [place] [address] Phone Care Team Providers Care Spot Welder Line Name Role Phone Lester Hicks MD Unavailable [phone] Margaux Montanez MD Unavailable [phone] Johann Hanson CNP Primary Care Provider [phone] Khang Kilgore MD Unavailable [phone] Luis Ignacio DO Unavailable [phone] Flo Estbean MD Unavailable [phone] Neisha Pinto RN Unavailable [email or web address] Shreyas Wilson MD Unavailable [phone] Doretha Glynn MD Unavailable [phone] Izzy Hackett Unavailable [email or web address] Radha Pereira RN Unavailable [phone] Encounter Details Date Type Department Care Team (Late st Contact Info) Description 12/07/2022 Procedure Pass [facility] 30 [place], [place] [phone] Social History Tobacco Use Types Packs/Day Years [...] high school, GED, job training, learning the Hong Konger language, technical skills, or developing parenting skills)? [...] 12/07/2022 9:18 AM Alise Hamilton, RN * [place] Suicide Severity Rating Scale (Screener/Recent Self-Report) Question [...] Description 07/22/2025 1:30 PM EDT Office Visit [facility] Medicine [address] [place] [address] [place] [address] Johann Hanson CNP [address] [facility], [address] [place] [address] [email or web address] 07/23/2025 8:00 AM EDT Office Visit [facility] Rheumatology [address] [place] [address] [place] [address] Margaux Montanez MD [address] [place] [address], [address] [place] [address] [email or web address] 09/10/2025 9:00 AM EST Office Visit [facility] Gastroenterology Clinic 10 [place] [address] Unknown, Unknown, Shreyas Limon MD [address] [place] [address] 09/21/2025 2:30 PM EST Office Visit [facility] Pulmonary, Allergy and Critical Care Medicine 10 [place] [address] Lester Hicks MD [address] [place] [address] 10/13/2025 9:20 AM EST Office Visit [facility]inology [address] [place] [address] Doretha Glynn MD [address] [place] [address] [email or web address] 12/22/2025 8:30 AM EDT Office Visit [facility] [address] [place] [address] Johann Hanson CNP [facility], [address] [place] [address] [email or web address] 06/30/2026 8:00 AM EDT Office Visit [facility] [address] [place] [address] Johann Hanson CNP [facility], [address] [place] [address] [email or web address] documented as of this encounter Visit Diagnoses Not on filedocumented in this encounter Additional Health Concerns Infection Onset Date Last Indicated Resolved Time COVID-19 10/07/2023 10/07/2023 10/28/2023 1:21 AM EST Assessment Noted Time PHQ-2 Depression Total Score: 0 05/15/20 22 1:45 PM EDT documented as of this encounter Care Teams Spot Welder Line Relationship Specialty Start Date End Date Johann Hanson CNP [address] [place] [address], [address] [place] [address] PCP - General Family Medicine 02/11/21 Lester Hicks MD [address] [place] [address] Historical LMR Provider 07/28/17 Margaux Montanez MD [address] [place] [address], [address] [place] [address] [email or web address] Historical LMR Provider 07/28/17 Khang Kilgore MD [address] [place] [address], [address] [place] [address] [email or web address] Insurance Assigned Provider 01/12/24 Luis Ignacio DO [address] [place] [address], [address] [place] [address] Cardiology 06/28/22 06/16/24 Flo Esteban MD [address] [place] [address] [email or web address] Cardiothoracic Surgery 06/28/22 06/16/24 Neisha Pinto RN [address] [place] [address] [email or web address] iCMP Shoemaking Cutter 02/26/23 06/10/25 Shreyas Wilson MD [address] [place] [address] Gastroenterology 06/17/24 Doretha Glynn MD [address] [place] [address] 3rd [place] [address] Endocrinology 06/17/24 Izzy Hackett [address] [place] [address] [email or web address] [facility] Community Supply Chain Generalist 09/11/24 09/11/24 Radha Pereira, RANDI [address] [place] [address] [phone] [email or web address] iCMP Shoemaking CutterScrew Remover 06/11/25 documented as of this encounter Additional Source Comments The information contained in this document represents components of the legal health record. It is not the complete legal health record.[facility]
--- OUTSIDE RECORDS SUMMARY | 2025-07-13 08:52 | XMS_ITS | Encounter Summary ---
Author Organization [facility] Address [address] [place] [address] Phone Care Team Providers Care Kinesiotherapist Name Role Phone Lester Hicks MD Unavailable [phone] Margaux Montanez MD Unavailable [phone] Johann Hanson CNP Primary Care Provider [phone] Khang Kilgore MD Unavailable Luis Ignacio DO Unavailable Flo Esteban MD Unavailable [phone] Neisha Pinto RN Unavailable [email or web address] Shreyas Wilson MD Unavailable Doretha Glynn MD Unavailable [phone] Izzy Hackett Unavailable [email or web address] Radha Pereira RN Unavailable [phone] Encounter Details Date Type Department Care Team (Late st Contact Info) Description 12/08/2022 Procedure Pass [facility] Cardiovascular And Interventional Radiology 30 [place], [place] [phone] Social History Tobacco Use Types Packs/Day Years [...] high school, GED, job training, learning the Malaysian language, technical skills, or developing parenting skills)? [...] Description 07/22/2025 1:30 PM EDT Office Visit [facility] Family Medicine [address] [place] [address] [place] [address] Johann Hanson, TIFFANIE [address] [facility], [address] [place] [address] [email or web address] 07/23/2025 8:00 AM EDT Office Visit [facility] Rheumatology [address] [place] [address] Margaux Montanez MD [address] [place] [address], [address] [place] [address] [email or web address] 09/10/2025 9:00 AM EST Office Visit [facility] Gastroenterology Clinic 10 [place] [address] Unknown, Unknown, Shreyas Limon MD [address] [address] 09/21/2025 2:30 PM EST Office Visit [facility] Pulmonary, Allergy and Critical Care Medicine 10 [place] [address] Lester Hicks MD [address] [place] [address] 2[address] [place] [address] 10/13/2025 9:20 AM EST Office Visit [facility]inology [address] [place] [address] [place] [address] Doretha Glynn MD [address] [place] [address] 3rd [place] [address] [email or web address] 12/22/2025 8:30 AM EDT Office Visit [address] [place] [address] Johann Hanson, SPAR FINISHER [address] [place] [address], [address] [place] [address] [email or web address] 06/30/2026 8:00 AM EDT Office Visit [address] [place] [address] Johann Hanson, SPAR FINISHER [address] [place] [address], [address] [place] [address] [email or web address] documented as of this encounter Visit Diagnoses Not on filedocumented in this encounter Additional Health Concerns Infection Onset Date Last Indicated Resolved Time COVID-19 10/07/2023 10/07/2023 10/28/2023 1:21 AM EST Assessment Noted Time PHQ-2 Depression Total Score: 0 05/15/20 1:45 PM EDT documented as of this encounter Care Teams Kinesiotherapist Relationship Specialty Start Date End Date Johann Hanson CNP [address] [place] [address], [address] [place] [address] PCP - General Family Medicine 02/11/21 Lester Hicks MD [address] [place] [address] Historical LMR Provider 07/28/17 Margaux Montanez MD [address] [place] [address], [address] [place] [address] [email or web address] Historical LMR Provider 07/28/17 Khang Kilgore MD [address] [place] [address], [address] [place] [address] Insurance Assigned Provider 01/12/24 Luis Ignacio DO [address] [place] [address], [address] [place] [address] Cardiology 06/28/22 06/16/24 Flo Esteban MD [address] [place] [address] [place] [address] [email or web address] Cardiothoracic Surgery 06/28/22 06/16/24 Neisha Pinto, RANDI [address] [place], [place] [address] [place] [address] [email or web address] Voice Over Announcer 02/26/23 06/10/25 Shreyas Wilson MD [address] [place] [address] Gastroenterology 06/17/24 Doretha Glynn MD [address] [place] [address] Endocrinology 06/17/24 Izzy Hackett [address] [place] [address] [email or web address] [facility] Community Inseam Trimmer 09/11/24 09/11/24 Radha Pereira RN [address] [place] [address] [facility] Voice Over AnnouncerJunior Accounting Clerk 06/11/25 documented as of this encounter Additional Source Comments The information contained in this document represents components of the legal health record. It is not the complete legal health record.[facility]
--- OUTSIDE RECORDS SUMMARY | 2025-07-13 08:52 | XMS_ITS | Encounter Summary ---
Author Organization [facility] Address [address] [facility] [address] [place] [address] Phone Care Team Providers Care Shag Truck Driver Name Role Phone Lester Hicks MD Unavailable [phone] Margaux Montanez MD Unavailable [phone] Johann Hanson WAXER Primary Care Provider [phone] Khang Kilgore MD Unavailable Luis Ignacio DO Unavailable [phone] Flo Esteban MD Unavailable [phone] Neisha Pinto RN Unavailable [email or web address] Shreyas Wilson MD Unavailable [phone] Doretha Glynn MD Unavailable [phone] Izzy Hackett Unavailable [email or web address] Radha Pereira RN Unavailable Encounter Details Date Type Department Care Team (Latest Contact Info) Description 12/22/2022 Transcribe Orders Virtual Department 30 [place] [address] Johann Hanson, WAXER [address] [facility], [address] [place], [place] [phone] [email or web address] Breast screening (Primary Dx) Social History [...] EDT Office Visit [facility] [address] [place] [address] [place] [address] Johann Hanson, TIFFANIE [address] [facility], [address] [place] [address] [email or web address] 07/23/2025 8:00 AM EDT Office Visit [facility] Rheumatology [address] [place] [address] [place] [address] Margaux Montanez MD [address] [place] [address], [address] [place] [address] [email or web address] 09/10/2025 9:00 AM EST Office Visit [facility] Gastroenterology Clinic 10 [place] [address] Unknown, [place], Shreyas Limon MD [address] [place] [address] 09/21/2025 2:30 PM EST Office Visit [facility] Pul[facility], Allergy and Critical Care Medicine 10 [facility] [place] [address] Lester Hicks MD [address] [place] [address] 10/13/2025 9:20 AM EST Office Visit [facility] Endocrinology [address] [place] [address] [place] [address] Doretha Glynn MD [address] [place] [address] 3rd [place] [address] [email or web address] 12/22/2025 8:30 AM EDT Office Visit [address] [place] [address] Johann Hanson, TIFFANIE [address] [place] [address], [address] [place] [address] [email or web address] 06/30/2026 8:00 AM EDT Office Visit [address] [place] [address] Valentin Johann, WAXER [address] [facility], [address] [place] [address] [email or web address] documented as of this encounter [...] documented as of this encounter Care Teams Shag Truck Driver Relationship Specialty Start Date End Date Johann Hanson CNP [address] [place] [address], [address] [place] [address] [email or web address] PCP - General Family Medicine 02/11/21 Lester Hicks MD [address] [place] [address] [email or web address] Historical LMR Provider 07/28/17 Margaux Montanez MD [address] [place] [address], [address] [place] [address] [email or web address] Historical LMR Provider 07/28/17 Khang Kilgore MD [address] [place] [address], [address] [place] [address] Insurance Assigned Provider 01/12/24 Luis Ignacio DO [address] [place] [address], [address] [place] [address] Cardiology 06/28/22 06/16/24 Flo Esteban MD [address] [place] [address] [email or web address] Cardiothoracic Surgery 06/28/22 06/16/24 Neisha Pinto RN [address] [place] [address] [email or web address] Upper Inspector 02/26/23 06/10/25 Shreyas Wilson MD [address] [place] [address] Gastroenterology 06/17/24 Doretha Glynn MD [address] [place] [address] 3[address] [place] [address] Endocrinology 06/17/24 Izzy Hackett [address] [place] [address] [email or web address] [facility] Community Microfilm Duplicating Unit Supervisor 09/11/24 09/11/24 Radha Pereira RN [address] [place] [address] iCMP Upper InspectorHair Cutter 06/11/25 documented as of this encounter Additional Source Comments The information contained in this document represents components of the legal health record. It is not the complete legal health record.[facility]
--- OUTSIDE RECORDS SUMMARY | 2025-07-13 08:52 | XMS_ITS | Encounter Summary ---
Author Organization [facility] Address [address] [place] [address] [place] [address] Phone Care Team Providers Care Emergency Technician Name Role Phone Lester Hicks MD Unavailable [phone] Margaux Montanez MD Unavailable Johann Hanson CNP Primary Care Provider [phone] Khang Kilgore MD Unavailable Luis Ignacio DO Unavailable Flo Esteban MD Unavailable [phone] Dilan Rowland MD Unavailable [phone] Corby Prado MD Unavailable [phone] Neisha Pinto RN Unavailable [email or web address] Shreyas Wilson MD Unavailable [phone] Doretha Glynn MD Unavailable [phone] Izzy Hackett Unavailable [email or web address] Radha Pereira RN Unavailable Encounter Details Date Type Department Care Team (Late st Contact Info) Description 02/10/2022 Procedure Pass Non-Invasive Cardiology [address] [place], [place] [id number] Social History Tobacco Use Types Packs/Day Years [...] high school, GED, job training, learning the Cypriot language, technical skills, or developing parenting skills)? [...] EDT Office Visit [facility] [place] [facility] [address] [place] [address] [place] [address] Johann Hanson CNP 22 [facility], [address] [place] [address] [email or web address] 07/23/2025 8:00 AM EDT Office Visit [facility] Rheumatology [address] [place] [address] Margaux Montanez MD [address] [place] [address], [address] [place] [address] [email or web address] 09/10/2025 9:00 AM EST Office Visit [facility] 10 [place] [address] Unknown, [place], Shreyas Limon MD [address] [address] 09/21/2025 2:30 PM EST Office Visit [facility] Pulmonary, Allergy and Critical Care Medicine 10 [facility] [place] [address] Lester Hicks MD [address] [place] [address] 10/13/2025 9:20 AM EST Office Visit [facility]in[facility] [address] [place] [address] Doretha Glynn MD [address] [place] [address] 3rd [place] [address] [email or web address] 12/22/2025 8:30 AM EDT Office Visit [address] [place] [address] Johann Hanson, WILDLIFE CONSERVATIONIST [address] [place] [address], [address] [place] [address] [email or web address] 06/30/2026 8:00 AM EDT Office Visit [address] [place] [address] Johann Hanson, WILDLIFE CONSERVATIONIST [address] [place] [address], [address] [place] [address] [email or web address] documented as of this encounter Visit [...] documented as of this encounter Care Teams Emergency Technician Relationship Specialty Start Date End Date Johann Hanson CNP [address] [place] [address], [address] [place] [address] [email or web address] PCP - General Family Medicine 02/11/21 Lester Hicks MD [address] [place] [address] [email or web address] Historical LMR Provider 07/28/17 Margaux Montanez MD [address] [place] [address], [address] [place] [address] [email or web address] Historical LMR Provider 07/28/17 Khang Kilgore MD [address] [place] [address], [address] [place] [address] Insurance Assigned Provider 01/12/24 Luis Ignacio DO [address] [place] [address], [address] [place] [address] Cardiology 06/28/22 06/16/24 Flo Esteban MD [address] [place] [address] [place] [address] [email or web address] Cardiothoracic Surgery 06/28/22 06/16/24 Dilan Rowland MD [address] [place] [address], [address] [place] [address] Insurance Assigned Provider 07/15/22 08/13/22 Corby Prado MD [address] [place] [address], [address] [place] [address] [email or web address] Insurance Assigned Provider 08/13/22 09/16/22 Neisha Pinto RN [address] [place] [address], [address] [place] [address] [email or web address] 02/26/23 06/10/25 Shreyas Wilson MD [address] [place] [address] Gastroenterology 06/17/24 Doretha Glynn MD [address] [place] [address] 3rd [place] [address] Endocrinology 06/17/24 Izzy Hackett [address] [place] [address] [email or web address] iCMP Community Finished Cloth Examiner 09/11/24 09/11/24 Radha Pereira, RN [address] [place] [address] [email or web address] [facility] Drawing HandEnvironmental Emergencies Planner 06/11/25 documented as of this encounter Additional Source Comments The information contained in this document represents components of the legal health record. It is not the complete legal health record.[facility]
--- OUTSIDE RECORDS SUMMARY | 2025-07-13 08:52 | XMS_ITS | Encounter Summary ---
Author Organization [facility] Address [address] [place] [address] [place] [address] Phone Care Team Providers Care Bagger And Stock Handler Helper Name Role Phone Tricia Balderas DO Unavailable Lester Hicks MD Unavailable [phone] Margaux Montanez MD Unavailable Demario Floyd MD Unavailable Pam Benson MD Unavailable [phone] Adithya Campos CUTTING MACHINE TENDER HELPER Unavailable Beatriz Donaldson DESIGN STUDIO CONSULTANT Unavailable Beatriz oDnaldson DESIGN STUDIO CONSULTANT Primary Care Provider Mamta Whitney DO Primary Care Provider [phone] Mamta Whitney DO Primary Care Provider [phone] Johann Hanson CUTTING MACHINE TENDER HELPER Primary Care Provider [phone] Khang Kilgore MD Unavailable Luis Ignacio DO Unavailable Flo Esteban MD Unavailable [phone] Dilan Rowland MD Unavailable [phone] Corby Prado MD Unavailable [phone] Neisha Pinto RN Unavailable [email or web address] Shreyas Wilson MD Unavailable Doretha Glynn MD Unavailable [phone] Izzy Hackett Unavailable sami Radha Pereira RN Unavailable [phone] Encounter Details Date Type Department Care Team (Late st Contact Info) Description 05/20/2018 Ancillary Orders Virtual Department [address] [place] [address] Beatriz Donaldson, DESIGN STUDIO CONSULTANT [address] [place] [address] Lymphadenopathy; Generalized enlarged lymph nodes Social History [...] Description 07/22/2025 1:30 PM EDT Office Visit [facility] Family Medicine [address] [place] [address] [place] [address] Johann Hanson CNP [address] [place] [address], [address] [place] [address] [email or web address] 07/23/2025 8:00 AM EDT Office Visit [facility] Rheumatology [address] [place] [address] [place] [address] Margaux Montanez MD [address] [place] [address], [address] [place] [address] [email or web address] 09/10/2025 9:00 AM EST Office Visit [facility] Gastroenterology Clinic 10 [place] [address] Unknown, Unknown, Shreyas Limon MD [address] [address] 09/21/2025 2:30 PM EST Office Visit [facility] Pulmonary, Allergy and Critical Care Medicine 10 [facility] [place] [address] Lester Hicks MD [address] [place] [address] 10/13/2025 9:20 AM EST Office Visit [facility] [address] [place] [address] Doretha Glynn MD [address] [place] [address] [email or web address] 12/22/2025 8:30 AM EDT Office Visit [address] [place] [address] Johann Hanson, CUTTING MACHINE TENDER HELPER [address] [place] [address], [address] [place] [address] [email or web address] 06/30/2026 8:00 AM EDT Office Visit [address] [place] [address] Johann Hanson, CUTTING MACHINE TENDER HELPER [address] [place] [address], [address] [place] [address] [email or web address] documented as of this encounter [...] documented as of this encounter Care Teams Bagger And Stock Handler Helper Relationship Specialty Start Date End Date Beatriz Donaldson NP [address] [place] [address] PCP - General Family Medicine 10/04/17 04/11/20 Mamta Whitney DO [address] [place] [address] [email or web address] PCP - General Family Medicine 04/12/20 02/08/21 Mamta Whitney DO [address] [place] [address] [email or web address] PCP - General Family Medicine 02/10/21 02/10/21 Johann Hanson CNP 22 [facility] [place] [address] [email or web address] PCP - General Family Medicine 02/11/21 Tricia Balderas DO [address] [place] [address] [email or web address] Historical LMR Provider 07/28/17 10/15/21 Lester Hicks MD [address] [place] [address] [email or web address] Historical LMR Provider 07/28/17 Margaux Montanez MD [address] [place] [address], [address] [place] [address] [email or web address] Historical LMR Provider 07/28/17 Demario Floyd MD [address] [place] [address] [email or web address] Historical LMR Provider 07/28/17 10/15/21 Pam Benson MD [address] [place] [address] [email or web address] Historical LMR Provider 07/28/17 10/15/21 Adithya Campos, CUTTING MACHINE TENDER HELPER [address] [place] [address] [email or web address] Historical LMR Provider 07/28/17 12/25/21 Beatriz Donaldson, DESIGN STUDIO CONSULTANT [address] [place] [address] Historical LMR Provider 07/28/17 04/11/20 Khang Kilgore MD [address] [place] [address] [address] [place] [address] [email or web address] Insurance Assigned Provider 01/12/24 Luis Ignacio DO [address] [place] [address], [address] [place] [address] Cardiology 06/28/22 06/16/24 Flo Esteban MD [address] [place] [address] [place] [address] [email or web address] Cardiothoracic Surgery 06/28/22 06/16/24 Dilan Rowland MD [address] [place] [address], [address] [place] [address] [email or web address] Insurance Assigned Provider 07/15/22 08/13/22 Corby Prado MD [address] [place] [address], [address] [place] [address] Insurance Assigned Provider 08/13/22 09/16/22 Niesha Pinto RN [address] [place] [address], [address] [place] [address] [email or web address] .[facility] Medical Field Representative 02/26/23 06/10/25 Shreyas Wilson MD [address] [address] [email or web address] Gastroenterology 06/17/24 Doretha Glynn MD [address] [place] [address] 3rd [place] [address] [email or web address] Endocrinology 06/17/24 Izzy Hackett [address] [place] [address] [email or web address] [facility] Community See Supervisor 09/11/24 09/11/24 Radha Pereira RN [address] [place] [address] [phone] [email or web address] iCMP Medical Field RepresentativeOpener Verifier [employer] 06/11/25 documented as of this encounter Additional Source Comments The information contained in this document represents components of the legal health record. It is not the complete legal health record.[facility]
--- OUTSIDE RECORDS SUMMARY | 2025-07-13 08:52 | XMS_ITS | Encounter Summary ---
Author Organization [facility] Address [address] [place] [address] [place] [address] Phone Care Team Providers Care Cementer Machine Joiner Name Role Phone Tricia Balderas DO Unavailable Lester Hicks MD Unavailable [phone] Margaux Montanez MD Unavailable Demario Floyd MD Unavailable Pam Benson MD Unavailable [phone] Adithya Campos NUMERICAL CONTROL ROUTER OPERATOR Unavailable Beatriz Donaldson GRAVITY METER OBSERVER Unavailable Beatriz Donaldson GRAVITY METER OBSERVER Primary Care Provider Mamta Whitney DO Primary Care Provider [phone] Mamta Whitney DO Primary Care Provider [phone] Johann Hanson NUMERICAL CONTROL ROUTER OPERATOR Primary Care Provider [phone] Khang Kilgore MD Unavailable Luis Ignacio DO Unavailable Flo Esteban MD Unavailable [phone] Dilan Rowland MD Unavailable [phone] Corby Prado MD Unavailable [phone] Neisha Pinto RN Unavailable [email or web address] Shreyas Wilson MD Unavailable [phone] Doretha Glynn MD Unavailable Izzy Hackett Unavailable sami Radha Pereira RN Unavailable [phone] Encounter Details Date Type Department Care Team (Late st Contact Info) Description 11/12/2019 Ancillary Orders Virtual Department [address] [place] [address] Beatriz Donaldson, GRAVITY METER OBSERVER [address] [place] [address] Breast screening Social History Tobacco Use Types [...] [facility] Family Medicine [address] [place] [address] Johann Hanson, TIFFANIE [address] [place] [address], [address] [place] [address] [email or web address] 07/23/2025 8:00 AM EDT Office Visit [facility] Rheumatology [address] [place] [address] Margaux Montanez MD [address] [place] [address], [address] [place] [address] [email or web address] 09/10/2025 9:00 AM EST Office Visit [facility] Gastroenterology Clinic 10 [place] [address] Unknown, Unknown, Shreyas Limon MD [address] [address] 09/21/2025 2:30 PM EST Office Visit [facility] Pulmonary, Allergy and Critical Care Medicine 10 [facility] [place] [address] Lester Hicks MD [address] [place] [address] 10/13/2025 9:20 AM EST Office Visit [facility]in[facility] [address] [place] [address] [place] [address] Doretha Glynn MD [address] [place] [address] [email or web address] 12/22/2025 8:30 AM EDT Office Visit [address] [place] [address] Johann Hanson, NUMERICAL CONTROL ROUTER OPERATOR [address] [place] [address], [address] [place] [address] [email or web address] 06/30/2026 8:00 AM EDT Office Visit [address] [place] [address] Johann Hanson NUMERICAL CONTROL ROUTER OPERATOR [address] [place] [address], [address] [place] [address] [email or web address] documented as of this encounter [...] documented as of this encounter Care Teams Cementer Machine Joiner Relationship Specialty Start Date End Date Beatriz Donaldson, GRAVITY METER OBSERVER [address] [place] [address] PCP - General Family Medicine 10/04/17 04/11/20 Mamta Whitney DO [address] [place] [address] [email or web address] PCP - General Family Medicine 04/12/20 02/08/21 Mamta Whitney DO [address] [place] [address] [email or web address] PCP - General Family Medicine 02/10/21 02/10/21 Johann Hanson CNP 22 [facility], [address] [place] [address] [email or web address] PCP - General Family Medicine 02/11/21 Tricia Balderas DO 30 [place] [address] [email or web address] Historical LMR Provider 07/28/17 10/15/21 Lester Hicks MD [address] [place] [address] [email or web address] Historical LMR Provider 07/28/17 Margaux Montanez MD [address] [place] [address], [address] [place] [address] [email or web address] Historical LMR Provider 07/28/17 Demario Floyd MD [address] [place] [address] [email or web address] Historical LMR Provider 07/28/17 10/15/21 Pam Benson MD [address] [place] [address] [email or web address] Historical LMR Provider 07/28/17 10/15/21 Adithya Campos, NUMERICAL CONTROL ROUTER OPERATOR [address] [place] [address] [email or web address] Historical LMR Provider 07/28/17 12/25/21 Beatriz Donaldson, GRAVITY METER OBSERVER [address] [place] [address] Historical LMR Provider 07/28/17 04/11/20 Khang Kilgore MD [address] [place] [address], [address] [place] [address] [email or web address] Insurance Assigned Provider 01/12/24 Luis Ignacio DO [address] [place] [address], [address] [place] [address] Cardiology 06/28/22 06/16/24 Flo Esteban MD [address] [place] [address] [email or web address] Cardiothoracic Surgery 06/28/22 06/16/24 Dilan Rowland MD [address] [place] [address], [address] [place] [address] Insurance Assigned Provider 07/15/22 08/13/22 Corby Prado MD [address] [place] [address], [address] [place] [address] Insurance Assigned Provider 08/13/22 09/16/22 Neisha Pinto RN [address] [place] [address], [address] [place] [address] [email or web address] Paving Bed Maker 02/26/23 06/10/25 Shreyas Wilson MD [address] [place] [address] Gastroenterology 06/17/24 Doretha Glynn MD [address] [place] [address] 3rd [place] [address] Endocrinology 06/17/24 Izzy Hackett [address] [place] [address] [email or web address] [facility] Community Shear Grinder Operator 09/11/24 09/11/24 Radha Pereira, RANDI [address] [place] [phone] iCMP Paving Bed MakerTransmission Tester 06/11/25 documented as of this encounter Additional Source Comments The information contained in this document represents components of the legal health record. It is not the complete legal health record.[facility]
--- OUTSIDE RECORDS SUMMARY | 2025-07-13 08:52 | XMS_ITS | Encounter Summary ---
Author Organization [facility] Address [address] [place] [address] Phone Care Team Providers Care Bilingual Hr Generalist Name Role Phone Lester Hicks MD Unavailable [phone] Margaux Montanez MD Unavailable Johann Hanson CNP Primary Care Provider [phone] Khang Kilgore MD Unavailable Luis Ignacio DO Unavailable [phone] Flo Esteban MD Unavailable [phone] Neisha Pinto RN Unavailable [email or web address] Shreyas Wilson MD Unavailable Doretha Glynn MD Unavailable [phone] Izzy Hackett Unavailable [email or web address] Radha Pereira RN Unavailable Encounter Details Date Type Department Care Team (Late st Contact Info) Description 12/11/2022 Procedure Pass [facility] Cardiovascular And Interventional Radiology [address] [place], [place] [phone] Social History Tobacco Use Types Packs/Day Years [...] high school, GED, job training, learning the Botswanan language, technical skills, or developing parenting skills)? [...] Description 07/22/2025 1:30 PM EDT Office Visit [facility] Family Medicine [address] [place] [address] [place] [address] Johann Hanson, TIFFANIE 22 [facility], [address] [place] [address] [email or web address] 07/23/2025 8:00 AM EDT Office Visit [facility] Rheumatology [address] [place] [address] Margaux Montanez MD [address] [place] [address], [address] [place] [address] [email or web address] 09/10/2025 9:00 AM EST Office Visit [facility] Gastroenterology Clinic 10 [place] [address] Unknown, Unknown, Shreyas Limon MD [address] [address] 09/21/2025 2:30 PM EST Office Visit [facility] Pulmonary, Allergy and Critical Care Medicine 10 [place] [address] Lester Hicks MD [address] [place] [address] 2nd [place] [address] 10/13/2025 9:20 AM EST Office Visit [facility] Endocrinology [address] [place] [address] [place] [address] Doretha Glynn MD [address] [place] [address] 3[address] [place] [address] [email or web address] 12/22/2025 8:30 AM EDT Office Visit [address] [place] [address] Johann Hanson, LOCAL SUPERINTENDENT [address] [place] [address], [address] [place] [address] [email or web address] 06/30/2026 8:00 AM EDT Office Visit [address] [place] [address] Johann Hanson, LOCAL SUPERINTENDENT [address] [place] [address], [address] [place] [address] [email or web address] documented as of this encounter Visit Diagnoses Not on filedocumented in this encounter Additional Health Concerns Infection Onset Date Last Indicated Resolved Time COVID-19 10/07/2023 10/07/2023 10/28/2023 1:21 AM EST Assessment Noted Time PHQ-2 Depression Total Score: 0 05/15/20 1:45 PM EDT documented as of this encounter Care Teams Bilingual Hr Generalist Relationship Specialty Start Date End Date Johann Hanson CNP [address] [place] [address], [address] [place] [address] PCP - General Family Medicine 02/11/21 Lester Hicks MD [address] [place] [address] Historical LMR Provider 07/28/17 Margaux Montanez MD [address] [place] [address], [address] [place] [address] [email or web address] Historical LMR Provider 07/28/17 Khang Kilgore MD [address] [place] [address], [address] [place] [address] Insurance Assigned Provider 01/12/24 Luis Ignacio DO [address] [place] [address], [address] [place] [address] Cardiology 06/28/22 06/16/24 Flo Esteban MD [address] [place] [address] [place] [address] [email or web address] Cardiothoracic Surgery 06/28/22 06/16/24 Neisha Pinto, RANDI [address] [place], [place] [address] [place] [address] [email or web address] Event Coordinator 02/26/23 06/10/25 Shreyas Wilson MD [address] [place] [address] Gastroenterology 06/17/24 Doretha Glynn MD [address] [place] [address] Endocrinology 06/17/24 Izzy Hackett [address] [place] [address] [email or web address] [facility] Community Glass Cleaner 09/11/24 09/11/24 Radha Pereira RN [address] [place] [address] [facility] Event CoordinatorEmail Developer 06/11/25 documented as of this encounter Additional Source Comments The information contained in this document represents components of the legal health record. It is not the complete legal health record.[facility]
--- OUTSIDE RECORDS SUMMARY | 2025-07-13 08:52 | XMS_ITS | Encounter Summary ---
Author Organization [facility] Address [address] [place] [address] Phone Care Team Providers Care Glue Machine Operator Name Role Phone Lester Hicks MD Unavailable [phone] Margaux Montanez MD Unavailable [phone] Johann Hanson CNP Primary Care Provider [phone] Khang Kilgore MD Unavailable [phone] Luis Ignacio DO Unavailable Flo Esteban MD Unavailable [phone] Neisha Pinto RN Unavailable [email or web address] Shreyas Wilson MD Unavailable [phone] Doretha Glynn MD Unavailable [phone] Izzy Hackett Unavailable [email or web address] Radha Pereira RN Unavailable [phone] Encounter Details Date Type Department Care Team (Latest Contact Info) Description 09/07/2023 Transcribe Orders Virtual Department 30 [place] [address] Shreyas Wilson MD [address] [place] [address] [phone] [email or web address] Gastroesophageal reflux disease, unspecified whether [...] high school, GED, job training, learning the Cambodian language, technical skills, or developing parenting skills)? [...] Description 07/22/2025 1:30 PM EDT Office Visit [facility] [address] [place] [address] [place] [address] Johann Hanson, FREIGHT BREAKER [address] [facility], [address] [place] [address] [email or web address] 07/23/2025 8:00 AM EDT Office Visit [facility] Rheumatology [address] [place] [address] [place] [address] Margaux Montanez MD [address] [place] [address], [address] [place] [address] [email or web address] 09/10/2025 9:00 AM EST Office Visit [facility] 10 [place] [address] Unknown, Unknown, Shreyas Limon MD [address] [place] [address] 09/21/2025 2:30 PM EST Office Visit [facility] Pul[facility], Allergy [facility] Critical Care Medicine 10 [facility] [place] [address] Lester Hicks MD [address] [place] [address] 10/13/2025 9:20 AM EST Office Visit [facility] [address] [place] [address] [place] [id number] Doretha Glynn MD [address] [address] [email or web address] 12/22/2025 8:30 AM EDT Office Visit [address] [place] [address] Johann Hanson CNP [address] [place] [address], [address] [place] [address] [email or web address] 06/30/2026 8:00 AM EDT Office Visit [address] [place] [id number] Johann Hanson CNP [address] [place] [address], [address] [place] [address] [email or web address] documented as of this encounter [...] documented as of this encounter Care Teams Glue Machine Operator Relationship Specialty Start Date End Date Johann Hanson CNP [address] [place] [address], [address] [place] [address] [email or web address] PCP - General Family Medicine 02/11/21 Lester Hicks MD [address] [place] [address] Historical LMR Provider 07/28/17 Margaux Montanez MD [address] [place] [address], [address] [place] [address] [email or web address] Historical LMR Provider 07/28/17 Khang Kilgore MD [address] [place] [address], [address] [place] [address] [email or web address] Insurance Assigned Provider 01/12/24 Luis Ignacio DO [address] [place] [address], [address] [place] [address] Cardiology 06/28/22 06/16/24 Flo Esteban MD [address] [place] [address] [email or web address] Cardiothoracic Surgery 06/28/22 06/16/24 Neisha Pinto RN [address] [place] [address] [email or web address] Captain 02/26/23 06/10/25 Shreyas Wilson MD [address] [place] [address] Gastroenterology 06/17/24 Doretha Glynn MD [address] [place] [address] 3rd [place] [address] Endocrinology 06/17/24 Izzy Hackett [address] [place] [address] [email or web address] [facility] Community Risk Control Consultant 09/11/24 09/11/24 Radha Pereira RN [address] [place] [address] [email or web address] iCMP Tugboat CaptainCommutator Inspector 06/11/25 documented as of this encounter Additional Source Comments The information contained in this document represents components of the legal health record. It is not the complete legal health record.[facility]
--- OUTSIDE RECORDS SUMMARY | 2025-07-13 08:52 | XMS_ITS | Encounter Summary ---
Author Organization [facility] Address [address] [place] [address] Phone Care Team Providers Care Licensing Analyst Name Role Phone Lester Hicks MD Unavailable [phone] Margaux Montanez MD Unavailable [phone] Johann Hanson CNP Primary Care Provider [phone] Khang Kilgore MD Unavailable Luis Ignacio DO Unavailable Flo Esteban MD Unavailable [phone] Neisha Pinto RN Unavailable [email or web address] Shreyas Wilson MD Unavailable Doretha Glynn MD Unavailable [phone] Izzy Hackett Unavailable [email or web address] Radha Pereira RN Unavailable [phone] Encounter Details Date Type Department Care Team (Late st Contact Info) Description 11/17/2022 Procedure [facility] PERI[facility]IVE DEPT [address] [place] [address] Social History Tobacco Use Types [...] 11/17/2022 7:00 PM David Mccormick RN * [place] Suicide Severity Rating Scale (Screener/Recent Self-Report) Question [...] Description 07/22/2025 1:30 PM EDT Office Visit [facility] Medicine [address] [place] [address] [place] [address] Johann Hanson CNP [facility] [address] [place] [address] [email or web address] 07/23/2025 8:00 AM EDT Office Visit [facility] Rheumatology [address] [place] [address] [place] [address] Margaux Montanez MD [address] [place] [address], [address] [place] [address] [email or web address] 09/10/2025 9:00 AM EST Office Visit [facility]enterology [facility] 10 [place] [address] Unknown, Unknown, Shreyas Limon MD [address] [place] [address] 09/21/2025 2:30 PM EST Office Visit [facility], Allergy [facility] Critical Care Medicine 10 [facility] [place] [address] Lester Hicks MD [address] [place] [address] 10/13/2025 9:20 AM EST Office Visit [facility] [address] [place] [address] Doretha Glynn MD [address] [place] [address] [email or web address] 12/22/2025 8:30 AM EDT Office Visit [facility] [address] [place] [address] Johann Hanson CNP [facility] [address] [place] [address] [email or web address] 06/30/2026 8:00 AM EDT Office Visit [facility] [address] [place] [address] Johann Hanson CNP [facility] [address] [place] [address] [email or web address] documented as of this encounter Visit Diagnoses Not on filedocumented in this encounter Additional Health Concerns Infection Onset Date Last Indicated Resolved Time COVID-19 10/07/2023 10/07/2023 10/28/2023 1:21 AM EST Assessment Noted Time PHQ-2 Depression Total Score: 0 05/15/20 1:45 PM EDT documented as of this encounter Care Teams Licensing Analyst Relationship Specialty Start Date End Date Johann Hanson CNP [address] [place] [address], [address] [place] [address] PCP - General Family Medicine 02/11/21 Lester Hicks MD [address] [place] [address] Historical LMR Provider 07/28/17 Margaux Montanez MD [address] [place] [address], [address] [place] [address] [email or web address] Historical LMR Provider 07/28/17 Khang Kilgore MD [address] [place] [address], [address] [place] [address] [email or web address] Insurance Assigned Provider 01/12/24 Luis Ignacio DO [address] [place] [address], [address] [place] [address] Cardiology 06/28/22 06/16/24 Flo Esteban MD [address] [place] [address] [email or web address] Cardiothoracic Surgery 06/28/22 06/16/24 Neisha Pinto RN [address] [place] [address] [email or web address] Cyber Crime Investigator 02/26/23 06/10/25 Shreyas Wilson MD [address] [place] [address] Gastroenterology 06/17/24 Doretha Glynn MD [address] [place] [address] 3rd [place] [address] Endocrinology 06/17/24 Izzy Hackett [address] [place] [address] [email or web address] Community Assisted Sales Representative 09/11/24 09/11/24 Radha Pereira, RN [address] [place] [address] [phone] [email or web address] iCMP Cyber Crime InvestigatorAssessor 06/11/25 documented as of this encounter Additional Source Comments The information contained in this document represents components of the legal health record. It is not the complete legal health record.[facility]
--- OUTSIDE RECORDS SUMMARY | 2025-07-13 08:52 | XMS_ITS | Encounter Summary ---
Author Organization [facility] Address [address] [place] [address] [place] [address] Phone Care Team Providers Care Bender Machine Name Role Phone Tricia Balderas DO Unavailable Lester Hicks MD Unavailable [phone] Margaux Montanez MD Unavailable Demario Floyd MD Unavailable Pam Benson MD Unavailable [phone] Adithya Campos RABBIT DRESSER Unavailable Beatriz Donaldson CITIZEN PARTICIPATION SPECIALIST Unavailable Beatriz Donaldson CITIZEN PARTICIPATION SPECIALIST Primary Care Provider Mamta Whitney DO Primary Care Provider [phone] Mamta Whitney DO Primary Care Provider [phone] Johann Hanson RABBIT DRESSER Primary Care Provider [phone] Khang Kilgore MD Unavailable Luis Ignacio DO Unavailable Flo Esteban MD Unavailable [phone] Dilan Rowland MD Unavailable [phone] Corby Prado MD Unavailable [phone] Neisha Pinto RN Unavailable [email or web address] Shreyas Wilson MD Unavailable Doretha Glynn MD Unavailable [phone] Izzy Hackett Unavailable sami [email or web address] Radha Pereira RN Unavailable [phone] Encounter Details Date Type Department Care Team (Late st Contact Info) Description 06/21/2018 Transcribe Orders [facility] Specimen Processing 30 [place] [address] Beatriz Donaldson, CITIZEN PARTICIPATION SPECIALIST [address] [place], [place] [phone] Routine general medical examination at a health care facility (Primary Dx); Sjogren's syndrome with lung involvement; Inflammatory arthritis; 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, composition floor setter, current use Social History Tobacco Use Types [...] Description 07/22/2025 1:30 PM EDT Office Visit [facility] Family Medicine [address] [place] [address] [place] [address] Johann Hanson, RABBIT DRESSER 22 [facility], [address] [place] [address] [email or web address] 07/23/2025 8:00 AM EDT Office Visit [facility] Rheumatology [address] [place] [address] [place] [address] Margaux Montanez MD [address] [place] [address], [address] [place] [address] [email or web address] 09/10/2025 9:00 AM EST Office Visit [facility] G[facility]enterology Clinic 10 [place] [address] Unknown, [place], Shreyas Limon MD [address] [address] 09/21/2025 2:30 PM EST Office Visit [facility] Pulmonary, Allergy and Critical Care Medicine 10 [facility] [place] [address] Lester Hicks MD [address] [place] [address] 2nd [place] [address] 10/13/2025 9:20 AM EST Office Visit [facility] [address] [place] [address] Doretha Glynn MD [address] [place] [address] 3[address] [place] [address] [email or web address] 12/22/2025 8:30 AM EDT Office Visit [address] [place] [address] Johann Hanson, RABBIT DRESSER [address] [place] [address], [address] [place] [address] [email or web address] 06/30/2026 8:00 AM EDT Office Visit [address] [place] [address] Johann Hanson, RABBIT DRESSER [address] [place] [address], [address] [place] [address] [email or web address] documented as of this encounter Procedures Procedure Name Priority Date/Time Associated Diagnosis Comments IRON Routine 06/21/2018 4:35 PM EDT Routine general medical examination at a health care facility COMPREHENSIVE METABOLIC PANEL Routine 06/21/2018 4:35 PM EDT Sjogren's syndrome with lung involvement Inflammatory arthritis 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, care home, current use SEDIMENTATION RATE (ESR) Routine 06/21/2018 4:35 PM EDT Sjogren's syndrome with lung involvement Inflammatory arthritis 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, care home, current use CBC AND DIFFERENTIAL Routine 06/21/2018 4:35 PM EDT Sjogren's syndrome with lung involvement Inflammatory arthritis 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, composition floor setter, current use COMPLEMENT C3 Routine 06/21/2018 4:35 PM EDT Sjogren's syndrome with lung involvement Inflammatory arthritis 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, composition floor setter, current use COMPLEMENT C4 Routine 06/21/2018 4:35 PM EDT Sjogren's syndrome with lung involvement Inflammatory arthritis 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, composition floor setter, current use C-REACTIVE PROTEIN Routine 06/21/2018 4: 35 PM EDT Sjogren's syndrome with lung involvement Inflammatory arthritis 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, care home, current use TSH Routine 06/21/2018 4:35 PM EDT Routine general medical examination at a health care facility FERRITIN Routine 06/21/2018 4:35 PM EDT Routine general medical examination at a health care facility documented in this encounter Results * Complement C4 (06/21/2018 4:35 PM EDT) COMPLEMENT C4 23 14 - 40 mg/dL [facility] DPT OF LAB MED AND PAT+ Blood 06/21/2018 4:35 PM EDT 06/22/2018 1:28 PM EDT us Margaux Leija-Cristiana MD LAB BLOOD ORDERABLES Fin al Result [facility] DPT OF LAB MED AND PAT+ [address] [place] [address] * Complement C3 (06/21/2018 4:35 PM EDT) COMPLEMENT C3 116 75 - 175 mg/dL [facility] DPT OF LAB MED AND PAT+ Blood 06/21/2018 4:35 PM EDT 06/22/2018 1:28 PM EDT Margaux Montanez MD LAB BLOOD ORDERABLES Fin al Result Performing Organization Address City/[facility]/ZIP Co de Phone Number [facility] DPT OF LAB MED AND PAT+ [address] [place] [address] * Sedimentation rate (ESR) (06/21/2018 4:35 PM EDT) ESR 4 0 - 30 mm/h [facility] Blood 06/21/2018 4:35 PM EDT 06/21/2018 5:56 PM EDT us Margaux Montanez MD LAB BLOOD ORDERABLES Fin al Result Performing Organization Address [facility]/ZIP Co de Phone Number [address] [address] * C-Reactive Protein (06/21/2018 4:35 PM EDT) C REACTIVE PROTEIN 0.5 0.0 - 4.0 mg/L [facility] Blood 06/21/2018 4:35 PM EDT 06/21/2018 5:56 PM EDT us Margaux Montanez MD LAB BLOOD ORDERABLES Fin al Result Performing Organization Address City/[facility]/ZIP Co de Phone Number [address] [address] * Comprehensive metabolic panel (06/21/2018 4:35 PM EDT) SODIUM 144 133 - 146 mmol/L [facility] POTASSIUM 3.6 3.3 - 5.1 mmol/L [facility] CHLORIDE 100 96 - 108 mmol/L [facility] CO2 30 21 - 35 mmol/L [facility] BUN 13 6 - 19 mg/dL [facility] CREATININE 0.70 0.5 - 1.5 mg/dL [facility] GLUCOSE 89 70 - 99 mg/dL [facility] ALBUMIN 4.3 3.9 - 4.8 g/dL [facility] TOTAL PROTEIN 6.7 6.5 - 8.0 g/dL [facility] CALCIUM 9.9 8.4 - 10.3 mg/dL [facility] ALKALINE PHOSPHATASE 59 39 - 117 U/L [facility] TOTAL BILIRUBIN 0.2 0.0 - 1.2 mg/dL [facility] AST 22 0 - 37 U/L [facility] ALT 16 0 - 40 U/L [facility] GLOBULIN 2.4 1 - 4.8 g/dL [facility] EGFR 97 >59 mL/min/1.7 3m2 [facility] Comment:If patient is black, multiply result by 1.159. Estimated glomerular filtration rate calculated using the CKD-EPI equation. ANION GAP 18 10 - 20 mmol/L [facility] Blood 06/21/2018 4:35 PM EDT 06/21/2018 5:56 PM EDT us Margaux Montanez MD LAB BLOOD ORDERABLES Fin al Result [address] [address] * CBC and differential (06/21/2018 4:35 PM EDT) WBC 5.00 3.40 - 11.20 K/uL [facility] RBC 4.23 3.80 - 4.80 M/uL [facility] HGB 13.2 12.0 - 15.0 g/dL [facility] HCT 39.5 36.0 - 46.0 % [facility] PLT 229 130 - 400 K/uL [facility] MCV 93.4 79.0 - 98.0 fL [facility] MCH 31.2 27.0 - 34.8 pg [facility] MCHC 33.4 31.5 - 36.0 g/dL [facility] RDW 12.9 10.8 - 14.6 % [facility] MPV 10.5 9.4 - 12.4 fl [facility] NRBC 0.00 /100 WBCs [facility] ABSOLUTE NRBC 0.00 K/uL [facility] DIFF METHOD Auto [facility] NEUTS 53.8 45.30 - 77.70 % [facility] LYMPHS 34.4 12.30 - 39.70 % [facility] MONOS 8.2 4.10 - 12.80 % [facility] EOS 2.6 0 - 7.2 % [facility] BASOS 0.8 0 - 2.80 % [facility] Granulocytes, immature (%) 0.2 0.0 - 0.9 % [facility] ABSOLUTE NEUTS 2.69 1.40 - 7.70 K/uL [facility] ABSOLUTE LYMPHS 1.72 0.60 - 3.20 K/uL [facility] ABSOLUTE MONOS 0.41 0.11 - 0.59 K/uL [facility] ABSOLUTE EOS 0.13 0.01 - 0.50 K/uL [facility] ABSOLUTE BASOS 0.04 0.00 - 0.08 K/uL [facility] Granulocytes, immature 0.01 0.00 - 0.05 K/uL [facility] Blood 06/21/2018 4:35 PM EDT 06/21/2018 5:56 PM EDT us Margaux Montanez MD LAB BLOOD ORDERABLES Fin al Result [facility] [address] [place] [address] * Ferritin (06/21/2018 4:35 PM EDT) FERRITIN 43 13 - 150 ug/L [facility] Blood 06/21/2018 4:35 PM EDT 06/21/2018 5:56 PM EDT Beatriz Donaldson CITIZEN PARTICIPATION SPECIALIST LAB BLOOD ORDERABLES Final R esult Performing Organization Address City/[facility]/ZIP Co de Phone Number [address] [address] * Iron (06/21/2018 4:35 PM EDT) IRON 64 30 - 160 ug/dL [facility] Blood 06/21/2018 4:35 PM EDT 06/21/2018 5:56 PM EDT Beatriz Donaldson CITIZEN PARTICIPATION SPECIALIST LAB BLOOD ORDERABLES Final R esult Performing Organization Address [facility] Co de Phone Number [address] [address] * (ABNORMAL) TSH (06/21/2018 4:35 PM EDT) TSH 0.04(L) 0.27 - 4.20 uIU/mL [facility] Blood 06/21/2018 4:35 PM EDT 06/21/2018 5:56 PM EDT Beatriz Donaldson CITIZEN PARTICIPATION SPECIALIST LAB BLOOD ORDERABLES Final R esult Performing Organization Address [facility] Co de Phone Number [address] [address] documented in this encounter Visit Diagnoses Diagnosis Routine general medical examination at a health care facility- Primary Sjogren's syndrome with lung involvement Inflammatory arthritis Unspecified inflammatory polyarthropathy 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, care home, current use documented in this encounter Additional Health Concerns Infection Onset Date Last Indicated Resolved Time CoV-Presumed 05/27/2022 05/27/2022 06/17/2022 1:21 AM EDT CoV-Presumed Comment:COVID-19 Added 10/12/2022 10/12/2022 10/13/2022 6:26 P M EST COVID-19 10/13/2022 10/13/2022 11/03/2022 1:21 AM EST COVID-19 10/07/2023 10/07/2023 10/28/2023 1:21 AM EST documented as of this encounter Care Teams Bender Machine Relationship Specialty Start Date End Date Beatriz Donaldson CITIZEN PARTICIPATION SPECIALIST [address] [place] [address] PCP - General Family Medicine 10/04/17 04/11/20 Mamta Whitney DO [address] [place] [address] [email or web address] PCP - General Family Medicine 04/12/20 02/08/21 Mamta Whitney DO [address] [place] [address] [email or web address] PCP - General Family Medicine 02/10/21 02/10/21 Johann Hanson CNP [address] [place] [address], [address] [place] [address] [email or web address] PCP - General Family Medicine 02/11/21 Tricia Balderas DO [address] [place] [address] [email or web address] Historical LMR Provider 07/28/17 10/15/21 Lester Hicks MD [address] [place] [address] [email or web address] Historical LMR Provider 07/28/17 Margaux Montanez MD [address] [facility], [address] [place] [address] [email or web address] Historical LMR Provider 07/28/17 Demario Floyd MD [address] [place] [address] [email or web address] Historical LMR Provider 07/28/17 10/15/21 Pam Benson MD [address] [place] [address] [email or web address] Historical LMR Provider 07/28/17 10/15/21 Adithya Campos RABBIT DRESSER [address] [place] [address] [email or web address] Historical LMR Provider 07/28/17 12/25/21 Beatriz Donaldson NP [address] [place] [address] Historical LMR Provider 07/28/17 04/11/20 Khang Kilgore MD [address] [place] [address], [address] [place] [address] [email or web address] Insurance Assigned Provider 01/12/24 Luis Ignacio DO [address] [place] [address], [address] [place] [address] [email or web address] Cardiology 06/28/22 06/16/24 Flo Esteban MD [address] [place] [address] [place] [address] [email or web address] [email or web address] Surgery 06/28/22 06/16/24 Dilan Rowland MD [address] [place] [address], [address] [place] [address] [email or web address] Insurance Assigned Provider 07/15/22 08/13/22 Corby Prado MD [address] [place] [address], [address] [place] [address] [email or web address] Insurance Assigned Provider 08/13/22 09/16/22 Neisha Pinto RN [address] [place] [address], [address] [place] [address] [email or web address] Agricultural Pilot 02/26/23 06/10/25 Shreyas Wilson MD [address] [place] [address] [email or web address] Gastroenterology 06/17/24 Doretha Glynn MD [address] [place] [address] [email or web address] Endocrinology 06/17/24 Izzy Hackett [address] [place] [address] [email or web address] [facility] Community Water Resources Project Manager 09/11/24 09/11/24 Radha Pereira, RN [address] [place] [address] [email or web address] [facility] Agricultural PilotBulk Station Operator 06/11/25 documented as of this encounter Additional Source Comments The information contained in this document represents components of the legal health record. It is not the complete legal health record.[facility]
--- OUTSIDE RECORDS SUMMARY | 2025-07-13 08:52 | XMS_ITS | Encounter Summary ---
Author Organization [facility] Address [address] [place] [address] Phone Care Team Providers Care Chore Tender Name Role Phone Lester Hicks MD Unavailable [phone] Margaux Montanez MD Unavailable Johann Hanson CNP Primary Care Provider [phone] Khang Kilgore MD Unavailable Luis Ignacio DO Unavailable Flo Esteban MD Unavailable [phone] Neisha Pinto RN Unavailable [email or web address] Shreyas Wilson MD Unavailable [phone] Doretha Glynn MD Unavailable [phone] Izzy Hackett Unavailable [email or web address] Radha Pereira RN Unavailable Encounter Details Date Type Department Care Team (Late st Contact Info) Description 12/07/2022 Procedure Pass [facility], Ct Scan - [address] [id number] Social History Tobacco Use Types Packs/Day Years [...] 12/07/2022 9:18 AM Alise Hamilton, RN * Gem Suicide Severity Rating Scale (Screener/Recent Self-Report) Question [...] Description 07/22/2025 1:30 PM EDT Office Visit [facility] Family Medicine [address] [place] [address] Johann Hanson CNP 22 [facility], [address] [place] [address] [email or web address] 07/23/2025 8:00 AM EDT Office Visit [facility] Rheumatology [address] [place] [address] Margaux Montanez MD [address] [place] [address], [address] [place] [address] [email or web address] 09/10/2025 9:00 AM EST Office Visit [facility] 10 [place] [address] Unknown, Unknown, Shreyas Limon MD [address] [place] [address] 09/21/2025 2:30 PM EST Office Visit [facility] Pulmonary, Allergy and Critical Care Medicine 10 [facility] [place] [address] Lester Hicks MD [address] [place] [address] 10/13/2025 9:20 AM EST Office Visit [facility] [address] [place] [address] Doretha Glynn MD [address] [place] [address] [email or web address] 12/22/2025 8:30 AM EDT Office Visit [facility] [address] [place] [address] Johann Hanson CNP 22 [facility], [address] [place] [address] [email or web address] 06/30/2026 8:00 AM EDT Office Visit [facility] [address] [place] [address] Johann Hanson CNP 22 [facility], [address] [place] [address] [email or web address] documented as of this encounter Visit Diagnoses Not on filedocumented in this encounter Additional Health Concerns Infection Onset Date Last Indicated Resolved Time COVID-19 10/07/2023 10/07/2023 10/28/2023 1:21 AM EST Assessment Noted Time PHQ-2 Depression Total Score: 0 05/15/20 1:45 PM EDT documented as of this encounter Care Teams Chore Tender Relationship Specialty Start Date End Date Johann Hanson CNP [address] [place] [address], [address] [place] [address] PCP - General Family Medicine 02/11/21 Lester Hicks MD [address] [place] [address] Historical LMR Provider 07/28/17 Margaux Montanez MD [address] [place] [address], [address] [place] [address] [email or web address] Historical LMR Provider 07/28/17 Khang Kilgore MD [address] [place] [address], [address] [place] [address] Insurance Assigned Provider 01/12/24 Luis Ignacio DO [address] [place] [address], [address] [place] [address] Cardiology 06/28/22 06/16/24 Flo Esteban MD [address] [place] [address] [email or web address] Cardiothoracic Surgery 06/28/22 06/16/24 Neisha Pinot RN [address] [place] [address] [email or web address]act[facility] iCMP Rail Equipment Operator 02/26/23 06/10/25 Shreyas Wilson MD [address] [place] [address] Gastroenterology 06/17/24 Doretha Glynn MD [address] [place] [address] [address] [place] [address] Endocrinology 06/17/24 Izzy Hackett [address] [place] [address] [email or web address] [facility] Community Teradata Developer 09/11/24 09/11/24 Radha Pereira RN [address] [place] [address] iCMP Rail Equipment OperatorMicrosoft Crm Developer 06/11/25 documented as of this encounter Additional Source Comments The information contained in this document represents components of the legal health record. It is not the complete legal health record.[facility]
--- OUTSIDE RECORDS SUMMARY | 2025-07-13 08:52 | XMS_ITS | Encounter Summary ---
Author Organization [facility] Address [address] [place] [address] [place] [address] Phone Care Team Providers Care Occupational Therapist'S Assistant Name Role Phone Lester Hicks MD Unavailable [phone] Margaux Montanez MD Unavailable Johann Hanson CNP Primary Care Provider [phone] Khang Kilgore MD Unavailable Luis Ignacio DO Unavailable Flo Esteban MD Unavailable [phone] Dilan Rowland MD Unavailable [phone] Corby Prado MD Unavailable Neisha Pinto RN Unavailable [email or web address] Shreyas Wilson MD Unavailable [phone] Doretha Glynn MD Unavailable Izzy Hackett Unavailable [email or web address] Radha Pereira RN Unavailable Encounter Details Date Type Department Care Team (Late st Contact Info) Description 02/10/2022 Procedure Pass [facility] [place] [place] [address] Social History Tobacco Use Types Packs/Day [...] high school, GED, job training, learning the Macedonian language, technical skills, or developing parenting skills)? [...] EDT Office Visit [facility] [place] [facility] [address] [place] [address] [place] [address] Johann Hanson CNP 22 [facility], [address] [place] [address] [email or web address] 07/23/2025 8:00 AM EDT Office Visit [facility] Rheumatology [address] [place] [address] Margaux Montanez MD [address] [place] [address], [address] [place] [address] [email or web address] 09/10/2025 9:00 AM EST Office Visit [facility] Gastroenterology Clinic 10 [place] [address] Unknown, [place], Shreyas Limon MD [address] [address] 09/21/2025 2:30 PM EST Office Visit [facility] Pulmonary, Allergy and Critical Care Medicine 10 [facility] [place] [address] Lester Hicks MD [address] [place] [address] 10/13/2025 9:20 AM EST Office Visit [facility] [address] [place] [address] Doretha Glynn MD [address] [place] [address] [address] [place] [address] [email or web address] 12/22/2025 8:30 AM EDT Office Visit [address] [place] [address] Johann Hanson, TEXTILES PRINTER [address] [place] [address], [address] [place] [address] [email or web address] 06/30/2026 8:00 AM EDT Office Visit [address] [place] [address] Johann Hanson, TEXTILES PRINTER [address] [place] [address], [address] [place] [address] [email or web address] documented as of this encounter Visit [...] documented as of this encounter Care Teams Occupational Therapist'S Assistant Relationship Specialty Start Date End Date Johann Hanson CNP [address] [place] [address], [address] [place] [address] [email or web address] PCP - General Family Medicine 02/11/21 Lester Hicks MD [address] [place] [address] [email or web address] Historical LMR Provider 07/28/17 Margaux Montanez MD [address] [place] [address], [address] [place] [address] [email or web address] Historical LMR Provider 07/28/17 Khang Kilgore MD [address] [place] [address], [address] [place] [address] Insurance Assigned Provider 01/12/24 Luis Ignacio DO [address] [place] [address], [address] [place] [address] Cardiology 06/28/22 06/16/24 Flo Esteban MD [address] [place] [address] [place] [address] [email or web address] Cardiothoracic Surgery 06/28/22 06/16/24 Dilan Rowland MD [address] [place] [address], [address] [place] [address] Insurance Assigned Provider 07/15/22 08/13/22 Corby Prado MD [address] [place] [address], [address] [place] [address] [email or web address] Insurance Assigned Provider 08/13/22 09/16/22 Neisha Pinto RN [address] [place] [address], [address] [place] [address] [email or web address] Router Hand 02/26/23 06/10/25 Shreyas Wilson MD [address] [place] [address] Gastroenterology 06/17/24 Doretha Glynn MD [address] [place] [address] 3rd [place] [address] Endocrinology 06/17/24 Izzy Hackett [address] [place] [address] [email or web address] [email or web address] Community Patient Services Rep 09/11/24 09/11/24 Radha Pereira, RN [address] [place] [address] [email or web address] [facility] Wood Router HandNeon Tube Bender 06/11/25 documented as of this encounter Additional Source Comments The information contained in this document represents components of the legal health record. It is not the complete legal health record.[facility]
--- OUTSIDE RECORDS SUMMARY | 2025-07-13 08:52 | XMS_ITS | Encounter Summary ---
Author Organization [facility] Address [address] [place] [address] Phone Care Team Providers Care Systems Architect Name Role Phone Lester Hicks MD Unavailable [phone] Margaux Montanez MD Unavailable [phone] Johann Hanson CNP Primary Care Provider [phone] Khang Kilgore MD Unavailable Luis Ignacio DO Unavailable Flo Esteban MD Unavailable [phone] Neisha Pinto RN Unavailable [email or web address] Shreyas Wilson MD Unavailable [phone] Doretha Glynn MD Unavailable [phone] Izzy Hackett Unavailable [email or web address] Radha Pereira RN Unavailable [phone] Encounter Details Date Type Department Care Team (Late st Contact Info) Description 12/08/2022 Procedure Pass [facility] Cardiovascular And Interventional Radiology 30 [place], [place] [id number] Social History Tobacco Use Types Packs/Day Years [...] Description 07/22/2025 1:30 PM EDT Office Visit [facility] Family Medicine [address] [place] [address] [place] [address] Johann Hanson, TIFFANIE 22 [facility], [address] [place] [address] [email or web address] 07/23/2025 8:00 AM EDT Office Visit [facility] Rheumatology [address] [place] [address] Margaux Montanez MD [address] [place] [address], [address] [place] [address] [email or web address] 09/10/2025 9:00 AM EST Office Visit [facility] G[facility]enterology Clinic 10 [place] [address] Unknown, Unknown, Shreyas Limon MD [address] [address] 09/21/2025 2:30 PM EST Office Visit [facility] Pulmonary, Allergy and Critical Care Medicine 10 [place] [address] Lester Hicks MD [address] [place] [address] 2[address] [place] [address] 10/13/2025 9:20 AM EST Office Visit [facility] [address] [place] [address] [place] [address] Doretha Glynn MD [address] [place] [address] 3[address] [place] [address] [email or web address] 12/22/2025 8:30 AM EDT Office Visit [address] [place] [address] Johann Hanson, AQUATIC LABORER [address] [place] [address], [address] [place] [address] [email or web address] 06/30/2026 8:00 AM EDT Office Visit [address] [place] [address] Johann Hanson, AQUATIC LABORER [address] [place] [address], [address] [place] [address] [email or web address] documented as of this encounter Visit Diagnoses Not on filedocumented in this encounter Additional Health Concerns Infection Onset Date Last Indicated Resolved Time COVID-19 10/07/2023 10/07/2023 10/28/2023 1:21 AM EST Assessment Noted Time PHQ-2 Depression Total Score: 0 05/15/20 1:45 PM EDT documented as of this encounter Care Teams Systems Architect Relationship Specialty Start Date End Date Johann Hanson CNP [address] [place] [address], [address] [place] [address] PCP - General Family Medicine 02/11/21 Lester Hicks MD [address] [place] [address] Historical LMR Provider 07/28/17 Margaux Montanez MD [address] [place] [address], [address] [place] [address] [email or web address] Historical LMR Provider 07/28/17 Khang Kilgore MD [address] [place] [address], [address] [place] [address] Insurance Assigned Provider 01/12/24 Luis Ignacio DO [address] [place] [address], [address] [place] [address] Cardiology 06/28/22 06/16/24 Flo Esteban MD [address] [place] [address] [place] [address] [email or web address] Cardiothoracic Surgery 06/28/22 06/16/24 Neisha Pinto, RANDI [address] [place], [place] [address]7 [place] [address] [email or web address] Court Commissioner 02/26/23 06/10/25 Shreyas Wilson MD [address] [place] [address] Gastroenterology 06/17/24 Doretha Glynn MD [address] [place] [address] Endocrinology 06/17/24 Izzy Hackett [address] [place] [address] [email or web address] [facility] Community Coning Machine Operator 09/11/24 09/11/24 Radha Pereira RN [address] [place] [address] [facility] [address] CommissionerFishing Boat Mate 06/11/25 documented as of this encounter Additional Source Comments The information contained in this document represents components of the legal health record. It is not the complete legal health record.[facility]
--- OUTSIDE RECORDS SUMMARY | 2025-07-13 08:52 | XMS_ITS | Encounter Summary ---
Author Organization [facility] Address [address] [place] [address] Phone Care Team Providers Care Chin Strap Maker Name Role Phone Lester Hicks MD Unavailable [phone] Margaux Montanez MD Unavailable [phone] Johann Hanson CNP Primary Care Provider [phone] Khang Kilgore MD Unavailable Luis Ignacio DO Unavailable Flo Esteban MD Unavailable [phone] Neisha Pinto RN Unavailable [email or web address] Shreyas Wilson MD Unavailable Doretha Glynn MD Unavailable [phone] Izzy Hackett Unavailable [email or web address] Radha Pereira RN Unavailable [phone] Encounter Details Date Type Department Care Team (Late st Contact Info) Description 12/13/2022 Procedure Pass [facility] Cardiovascular And Interventional Radiology 30 [place], [place] [id number] Social History Tobacco Use Types Packs/Day Years [...] high school, GED, job training, learning the Jordanian language, technical skills, or developing parenting skills)? [...] Description 07/22/2025 1:30 PM EDT Office Visit [facility] Family Medicine [address] [place] [address] [place] [address] Johann Hanson, TIFFANIE 22 [facility], [address] [place] [address] [email or web address] 07/23/2025 8:00 AM EDT Office Visit [facility] Rheumatology [address] [place] [address] Margaux Montanez MD [address] [place] [address], [address] [place] [address] [email or web address] 09/10/2025 9:00 AM EST Office Visit [facility] Gastroenterology Clinic 10 [place] [address] Unknown, Unknown, Shreyas Limon MD [address] [address] 09/21/2025 2:30 PM EST Office Visit [facility] Pulmonary, Allergy and Critical Care Medicine 10 [place] [address] Lester Hicks MD [address] [place] [address] 2[address] [place] [address] 10/13/2025 9:20 AM EST Office Visit [facility] [address] [place] [address] [place] [address] Doretha Glynn MD [address] [place] [address] 3[address] [place] [address] [email or web address] 12/22/2025 8:30 AM EDT Office Visit [address] [place] [address] Johann Hanson, FATS AND OILS LOADER [address] [place] [address], [address] [place] [address] [email or web address] 06/30/2026 8:00 AM EDT Office Visit [address] [place] [address] Johann Hanson, FATS AND OILS LOADER [address] [place] [address], [address] [place] [address] [email or web address] documented as of this encounter Visit Diagnoses Not on filedocumented in this encounter Additional Health Concerns Infection Onset Date Last Indicated Resolved Time COVID-19 10/07/2023 10/07/2023 10/28/2023 1:21 AM EST Assessment Noted Time PHQ-2 Depression Total Score: 0 05/15/20 1:45 PM EDT documented as of this encounter Care Teams Chin Strap Maker Relationship Specialty Start Date End Date Johann Hanson CNP [address] [place] [address], [address] [place] [address] PCP - General Family Medicine 02/11/21 Lester Hicks MD [address] [place] [address] Historical LMR Provider 07/28/17 Margaux Montanez MD [address] [place] [address], [address] [place] [address] [email or web address] Historical LMR Provider 07/28/17 Khang Kilgore MD [address] [place] [address], [address] [place] [address] Insurance Assigned Provider 01/12/24 Luis Ignacio DO [address] [place] [address], [address] [place] [address] Cardiology 06/28/22 06/16/24 Flo Esteban MD [address] [place] [address] [place] [address] [email or web address] Cardiothoracic Surgery 06/28/22 06/16/24 Neisha Pinto, RANDI [address] [place], [place] [address] [place] [address] [email or web address] Rock Crusher Operator 02/26/23 06/10/25 Shreyas Wilson MD [address] [place] [address] Gastroenterology 06/17/24 Doretha Glynn MD [address] [place] [address] Endocrinology 06/17/24 Izzy Hackett [address] [place] [address] [email or web address] [facility] Community Project Management Consultant 09/11/24 09/11/24 Radha Pereira RN [address] [place] [address] [facility]P Rock Crusher OperatorPitch Gatherer 06/11/25 documented as of this encounter Additional Source Comments The information contained in this document represents components of the legal health record. It is not the complete legal health record.[facility]
--- OUTSIDE RECORDS SUMMARY | 2025-07-13 08:52 | XMS_ITS | Encounter Summary ---
Author Organization [facility] Address [address] [place] [address] [place] [address] Phone Care Team Providers Care Studio Hand Name Role Phone Tricia Balderas DO Unavailable Lester Hicks MD Unavailable [phone] Margaux Montanez MD Unavailable Demario Floyd MD Unavailable Pam Benson MD Unavailable Adithya Campos STOREKEEPER STEWARD Unavailable Mamta Whitney DO Primary Care Provider [phone] Mamta Whitney DO Primary Care Provider [phone] Johann Hanson STOREKEEPER STEWARD Primary Care Provider [phone] Khang Kilgore MD Unavailable Luis Ignacio DO Unavailable Flo Esteban MD Unavailable [phone] Dilan Rowland MD Unavailable [phone] Corby Prado MD Unavailable [phone] Neisha Pinto RN Unavailable [email or web address] Shreyas Wilson MD Unavailable Doretha Glynn MD Unavailable [phone] Izzy Hackett Unavailable sami Radha Pereira RN Unavailable [phone] Encounter Details Date Type Department Care Team (Latest Contact Info) Description 04/14/2020 Transcribe Orders [facility] Laboratory [address] [place] [address] Alise Winkler PA-C [address], [address] [place] [address] Fatigue, unspecified type (Primary Dx); Diarrhea, unspecified [...] 07/22/2025 1:30 PM EDT Office Visit [facility] Medicine [address] [place] [address] [place] [address] Johann Hanson, TIFFANIE [address] [place] [address], [address] [place] [address] [email or web address] 07/23/2025 8:00 AM EDT Office Visit [facility] Rheumatology [address] [place] [address] [place] [address] Margaux Montanez MD [address] [place] [address], [address] [place] [address] [email or web address] 09/10/2025 9:00 AM EST Office Visit [facility] Gastroenterology Clinic 10 [place] [address] Unknown, [place], Shreyas Limon MD 10 [facility] 2 [place] [address] 09/21/2025 2:30 PM EST Office Visit [facility] Pulmonary, Allergy and Critical Care Medicine 10 [facility] [place] [address] Lester Hicks MD [address] [address] 10/13/2025 9:20 AM EST Office Visit [facility] Endocrinology [address] [place] [address] Doretha Glynn MD [address] [place] [address] [email or web address] 12/22/2025 8:30 AM EDT Office Visit [address] [place] [address] Johann Hanson, STOREKEEPER STEWARD [address] [place] [address], [address] [place] [address] [email or web address] 06/30/2026 8:00 AM EDT Office Visit [address] [place] [address] Johann Hanson, STOREKEEPER STEWARD [address] [place] [address], [address] [place] [address] [email or web address] documented as of this encounter Results * Giardia antigen screen (04/15/2020 4:18 PM EDT) [facility] GIARDIA ANTIGEN Negative Negative [facility] DPT OF LAB MED AND PAT+ Comment: (NOTE) ADDITIONAL INFORMATION Test Performed by Enzyme Immunoassay. Stool (Stool) 04/15/2020 4:1 8 PM EDT 04/15/2020 4:24 PM EDT Alise Winkler PA-C MICROBIOLOGY - GENERAL ORDERABL ES Final Result Performing Organization Address City/[facility]/ZIP Co de Phone Number [facility] DPT OF LAB MED AND PAT+ [address] [place] [address] * Ova and parasites, stool (04/15/2020 8:00 AM EDT) Special Requests None 04/15/2020 4:19 PM EDT [facility] DIRECT EXAM NO PARASITES FOUND BY DIRECT OR CONCENTRATION METHODS 04/26/2020 10:47 AM EDT [facility] DIRECT EXAM No parasites found by Trichrome Stain 04/26/2020 10:47 AM EDT [facility] Stool (Stool) 04/15/2020 8:0 0 AM EDT 04/15/2020 4:24 PM EDT Alise Winkler PA-C MICROBIOLOGY - GENERAL ORDERABL ES Final Result Performing Organization Address [facility] [place] [facility] Co de Phone Number [address] [address] * Fecal immunochemical test x1 (FIT) (04/15/2020 8:00 AM EDT) Immuno Fecal Occult Negative [facility] Stool (Stool) 04/15/2020 8:0 0 AM EDT 04/15/2020 4:23 PM EDT Alise Winkler PA-C BODY FLUIDS AND STOOLS ORDERABL ES Final Result Performing Organization Address [facility] Co de Phone Number [address] [address] * Fecal leukocyte examination (04/15/2020 8:00 AM EDT) Special Requests None 04/15/2020 4:19 PM EDT [facility] GRAM STAIN No WBC seen on smear. 04/16/2020 8:47 AM EDT [facility] Stool (Stool) 04/15/2020 8:0 0 AM EDT 04/15/2020 4:24 PM EDT us Alise Winkler PA-C MICROBIOLOGY - GENERAL ORDERABL ES Final Result Performing Organization Address [facility] de Phone Number [address] [address] * Stool culture (04/15/2020 8:00 AM EDT) Special Requests None 04/15/2020 4:19 PM EDT [facility] Stool Culture NO SALMONELLA, SHIGELLA OR CAMPYLOBACTER ISOLATED 04/16/2020 8:09 AM EDT [facility] Stool (Stool) 04/15/2020 8:0 0 AM EDT 04/15/2020 4:24 PM EDT us Alise Winkler PA-C MICROBIOLOGY - GENERAL ORDERABL ES Final Result Performing Organization Address [facility] Co de Phone Number [address] [address] * Immunoglobulin A (04/14/2020 12:05 PM EDT) IgA 84 70 - 400 mg/dL [facility] Blood 04/14/2020 12:0 5 PM EDT 04/14/2020 12:23 PM EDT us Alise Winkler PA-C LAB BLOOD ORDERABLES Final Resu lt Performing Organization Address [facility] Co de Phone Number [address] [address] * Tissue transglutaminase IgA (04/14/2020 12:05 PM EDT) TTG IGA ANTIBODY <1.2 <4.0 (Negative) U/mL [facility] Blood 04/14/2020 12:0 5 PM EDT 04/14/2020 12:22 PM EDT us Alise Winkler PA-C LAB BLOOD ORDERABLES Final Resu lt [facility] [address] [address] [place] [address] documented in this encounter Visit Diagnoses Diagnosis [...] documented as of this encounter Care Teams Studio Hand Relationship Specialty Start Date End Date Mamta Whitney DO 9 [place] [address] [email or web address] PCP - General Family Medicine 04/12/20 02/08/21 Mamta Whitney DO 9 [place] [address] [email or web address] PCP - General Family Medicine 02/10/21 02/10/21 Johann Hanson CNP [address] [place] [address], [address] [place] [address] PCP - General Family Medicine 02/11/21 Tricia Balderas DO 30 [place] [address] [email or web address] Historical LMR Provider 07/28/17 10/15/21 Lester Hicks MD [address] [place] [address] [email or web address] Historical LMR Provider 07/28/17 Margaux Montanez MD [address] [place] [address], [address] [place] [address] [email or web address] Historical LMR Provider 07/28/17 Demario Floyd MD [address] [place] [address] [email or web address] Historical LMR Provider 07/28/17 2 Pam Benson MD [address] [place] [address] [email or web address] Historical LMR Provider 07/28/17 Adithya Campos, STOREKEEPER STEWARD [address] [place] [address] Historical LMR Provider 07/28/17 12/25/21 Khang Kilgore MD [address] [place] [address], [address] [place] [address] [email or web address] Insurance Assigned Provider 01/12/24 Luis Ignacio DO [address] [place] [address], [address] [place] [address] Cardiology 06/28/22 06/16/24 Flo Esteban MD [address] [place] [address] [place] [address] [email or web address] Cardiothoracic Surgery 06/28/22 06/16/24 Dilan Rowland MD [address] [place] [address], [address] [place] [address] [email or web address] Insurance Assigned Provider 07/15/22 08/13/22 Corby Prado MD [address] [place] [address], [address] [place] [address] [email or web address] Insurance Assigned Provider 08/13/22 09/16/22 Neisha Pinto RN [address] [place] [address], [address] [place] [address] [email or web address] [employer] Plant Superintendent 02/26/23 06/10/25 Shreyas Wilson MD [address] [place] [address] Gastroenterology 06/17/24 Doretha Glynn MD [address] [place] [address] [address] [place] [address] Endocrinology 06/17/24 Izzy Hackett [address] [place] [address] [email or web address] [facility] Community Post Tensioning Ironworker Helper 09/11/24 09/11/24 Radha Pereira, RN [address] [place] [address] [email or web address] [employer] Biofu[employer] Plant SuperintendentInstallation Technician 06/11/25 documented as of this encounter Additional Source Comments The information contained in this document represents components of the legal health record. It is not the complete legal health record.[facility]
--- OUTSIDE RECORDS SUMMARY | 2025-07-13 08:52 | XMS_ITS | Encounter Summary ---
Author Organization [facility] Address [address] [place] [address] [place] [address] Phone Care Team Providers Care General Service Technician Name Role Phone Lester Hicks MD Unavailable [phone] Margaux Montanez MD Unavailable [phone] Johann Hanson CNP Primary Care Provider [phone] Khang Kilgore MD Unavailable [phone] Luis Ignacio DO Unavailable Flo Esteban MD Unavailable [phone] Corby Prado MD Unavailable [phone] Neisha Pinto RN Unavailable [email or web address] Shreyas Wilson MD Unavailable Doretha Glynn MD Unavailable [phone] Izzy Hackett Unavailable [email or web address] Radha Pereira RN Unavailable Encounter Details Date Type Department Care Team (Late st Contact Info) Description 08/15/2022 Procedure Pass [facility], Ct Scan - [address] [id number] Social History Tobacco Use Types Packs/Day Years [...] high school, GED, job training, learning the Uzbek language, technical skills, or developing parenting skills)? [...] Description 07/22/2025 1:30 PM EDT Office Visit [facility] Family Medicine [address] [place] [address] [place] [address] Johann Hanson, TIFFANIE 22 [facility], [address] [place] [address] [email or web address] 07/23/2025 8:00 AM EDT Office Visit [facility] Rheumatology [address] [place] [address] Margaux Montanez MD [address] [place] [address], [address] [place] [address] [email or web address] 09/10/2025 9:00 AM EST Office Visit [facility] Gastroenterology Clinic 10 [place] [address] Unknown, [place], Shreyas Limon MD [address] [address] 09/21/2025 2:30 PM EST Office Visit [facility] Pulmonary, Allergy and Critical Care Medicine 10 [facility] [place] [address] Lester Hicks MD [address] [place] [address] 2nd [place] [address] 10/13/2025 9:20 AM EST Office Visit [facility] Endocrinology [address] [place] [address] [place] [address] Doretha Glynn MD [address] [place] [address] 3[address] [place] [address] [email or web address] 12/22/2025 8:30 AM EDT Office Visit [address] [place] [address] Johann Hanson, SUPERVISOR CUTTING AND SEWING ROOM [address] [place] [address], [address] [place] [address] [email or web address] 06/30/2026 8:00 AM EDT Office Visit [address] [place] [address] Johann Hanson, SUPERVISOR CUTTING AND SEWING ROOM [address] [place] [address], [address] [place] [address] [email or web address] documented as of this encounter [...] documented as of this encounter Care Teams General Service Technician Relationship Specialty Start Date End Date Johann Hanson CNP [address] [place] [address], [address] [place] [address] PCP - General Family Medicine 02/11/21 Lester Hicks MD [address] [place] [address] Historical LMR Provider 07/28/17 Margaux Montanez MD [address] [place] [address], [address] [place] [address] [email or web address] Historical LMR Provider 07/28/17 Khang Kilgore MD [address] [place] [address], [address] [place] [address] Insurance Assigned Provider 01/12/24 Luis Ignacio DO [address] [place] [address], [address] [place] [address] Cardiology 06/28/22 06/16/24 Flo Esteban MD [address] [place] [address] [place] [address] [email or web address] Cardiothoracic Surgery 06/28/22 06/16/24 Corby Prado MD [address] [place] [address], [address] [place] [address] Insurance Assigned Provider 08/13/22 09/16/22 Neisha Pinto RN [address] [place] [address], [address] [place] [address] [email or web address] iCMP Engine Manager 02/26/23 06/10/25 Shreyas Wilson MD [address] [place] [address] Gastroenterology 06/17/24 Doretha Glynn MD [address] [place] [address] 3[address] [place] [address] Endocrinology 06/17/24 Izzy Hackett [address] [place] [address] [email or web address] [facility] Community Field Service Poultry Technician 09/11/24 09/11/24 Radha Pereira, RN [address] [place] [address] iCMP Engine ManagerFacilities Engineer 06/11/25 documented as of this encounter Additional Source Comments The information contained in this document represents components of the legal health record. It is not the complete legal health record.[facility]
--- OUTSIDE RECORDS SUMMARY | 2025-07-13 08:53 | XMS_ITS | Encounter Summary ---
Author Organization [facility] Address [address] [place] [address] [place] [address] Phone Care Team Providers Care Type Copyist Name Role Phone Tricia Balderas DO Unavailable Lester Hicks MD Unavailable [phone] Margaux Montanez MD Unavailable Demario Floyd MD Unavailable Pam Benson MD Unavailable [phone] Adithya Campos SKI BASE TRIMMER Unavailable Beatriz Donaldson CUT FILE CLERK Unavailable Beatriz Donaldson CUT FILE CLERK Primary Care Provider Mamta Whitney DO Primary Care Provider [phone] Mamta Whitney DO Primary Care Provider [phone] Johann Hanson SKI BASE TRIMMER Primary Care Provider [phone] Khang Kilgore MD Unavailable Luis Ignacio DO Unavailable Flo Esteban MD Unavailable [phone] Dilan Rowland MD Unavailable [phone] Corby Prado MD Unavailable [phone] Neisha Pinto RN Unavailable [email or web address] Shreyas Wilson MD Unavailable Doretha Glynn MD Unavailable [phone] Izzy Hackett Unavailable [email or web address] Radha Pereira RN Unavailable [phone] Encounter Details Date Type Department Care Team (Late Contact Info) Description 05/29/2019 Telephone [facility] Pulmonary, Allergy and Critical Care Medicine [address] [place] [address] Aishwarya Vaqsuez MD [address] [place] [address] [email or web address] Social History Tobacco Use Types Packs/Day Years [...] Upcoming Encounters Date Type Department Care Team ([facility] Contact Info) Description 07/22/2025 1:30 PM EDT Office Visit [address] [place] [address] Johann Hanson CNP [address] [place] [address], [address] [place] [address] [email or web address] 07/23/2025 8:00 AM EDT Office Visit [facility] Rheumatology [address] [place] [address] [place] [address] Margaux Montanez MD [address] [place] [address], [address] [place] [address] [email or web address] 09/10/2025 9:00 AM EST Office Visit [facility] Gastroenterology Clinic 10 [place] [address] Unknown, Unknown, Shreyas Limon MD [address] [address] 09/21/2025 2:30 PM EST Office Visit [facility] Pulmonary, Allergy and Critical Care Medicine 10 [place] [address] Lester Hicks MD [address] [place] [address] 10/13/2025 9:20 AM EST Office Visit [facility]inology 22 [place] [address] Doretha Glynn MD [address] [place] [address] [email or web address] 12/22/2025 8:30 AM EDT Office Visit [address] [place] [address] Johann Hanson CNP [address] [place] [address], [address] [place] [address] [email or web address] 06/30/2026 8:00 AM EDT Office Visit [address] [place] [address] Johann Hanson SKI BASE TRIMMER [address] [place] [address], [address] [place] [address] [email or web address] documented as of this encounter Visit Diagnoses Not on filedocumented in this encounter Additional Health Concerns Infection Onset Date Last Indicated Resolved Time CoV-Presumed 05/27/2022 05/27/2022 06/17/2022 1:21 AM EDT CoV-Presumed Comment:COVID-19 Added 10/12/2022 10/12/2022 10/13/2022 6:26 P M EST COVID-19 10/13/2022 10/13/2022 11/03/2022 1:21 AM EST COVID-19 10/07/2023 10/07/2023 10/28/2023 1:21 AM EST documented as of this encounter Care Teams Type Copyist Relationship Specialty Start Date End Date Beatriz Donaldson NP [address] [place] [address] PCP - General Family Medicine 10/04/17 04/11/20 Mamta Whitney DO [address] [place] [address] [email or web address] PCP - General Family Medicine 04/12/20 02/08/21 Mamta Whitney DO [address] [place] [address] [email or web address] PCP - General Family Medicine 02/10/21 02/10/21 Johann Hanson CNP 22 [facility]201 [place] [address] [email or web address] PCP - General Family Medicine 02/11/21 Tricia Balderas DO [address] [place] [address] [email or web address] Historical LMR Provider 07/28/17 10/15/21 Lester Hicks MD [address] [place] [address] [email or web address] Historical LMR Provider 07/28/17 Margaux Montanez MD [address] [place] [address], [address] [place] [address] [email or web address] Historical LMR Provider 07/28/17 Demario Floyd MD [address] [place] [address] [email or web address] Historical LMR Provider 07/28/17 10/15/21 Pam Benson MD [address] [place] [address] [email or web address] Historical LMR Provider 07/28/17 10/15/21 Adithya Campos, SKI BASE TRIMMER [address] [place] [address] [email or web address] Historical LMR Provider 07/28/17 12/25/21 Beatriz Donaldson, CUT FILE CLERK [address] [place] [address] Historical LMR Provider 07/28/17 04/11/20 Khang Kilgore MD [address] [place] [address] [address] [place] [address] [email or web address] Insurance Assigned Provider 01/12/24 Luis Ignacio DO [address] [place] [address], [address] [place] [address] Cardiology 06/28/22 06/16/24 Flo Esteban MD [address] [place] [address] [place] [address] [email or web address] Cardiothoracic Surgery 06/28/22 06/16/24 Dilan Rowland MD [address] [place] [address], [address] [place] [address] [email or web address] Insurance Assigned Provider 07/15/22 08/13/22 Corby Prado MD [address] [place] [address], [address] [place] [address] Insurance Assigned Provider 08/13/22 09/16/22 Neisha Pinto RN [address] [place] [address], [address] [place] [address] [email or web address] Feed Research Aide 02/26/23 06/10/25 Shreyas Wilson MD [address] [place] [address] [email or web address] Gastroenterology 06/17/24 Doretha Glynn MD [address] [place] [address] 3rd [place] [address] [email or web address] Endocrinology 06/17/24 Izzy Hackett [address] [place] [address] [email or web address] [facility] Community Surveying Technician 09/11/24 09/11/24 Radha Pereira RN [address] [place] [id number] [email or web address] iCMP Feed Research AideSitecore Developer 06/11/25 documented as of this encounter Additional Source Comments The information contained in this document represents components of the legal health record. It is not the complete legal health record.[facility]
--- OUTSIDE RECORDS SUMMARY | 2025-07-13 08:53 | XMS_ITS | Encounter Summary ---
Author Organization [facility] Address [address] [place] [address] [place] [address] Phone Care Team Providers Care Sales And Service Consultant Name Role Phone Tricia Balderas DO Unavailable Lester Hicks MD Unavailable Margaux Montanez MD Unavailable Demario Floyd MD Unavailable Pam Benson MD Unavailable [phone] Adithya Campos BOW TACKER Unavailable Beatriz Donaldson SENIOR OPERATOR Unavailable [email or web address] Donaldson SENIOR OPERATOR Primary Care Provider Mamta Whitney DO Primary Care Provider [phone] Mamta Whitney DO Primary Care Provider [phone] Johann Hanson BOW TACKER Primary Care Provider [phone] Khang Kilgore MD Unavailable Luis Ignacio DO Unavailable Flo Esteban MD Unavailable [phone] Dilan Rowland MD Unavailable Corby Prado MD Unavailable [phone] Neisha Pinto RN Unavailable [email or web address] Shreyas Wilson MD Unavailable [phone] Doretha Glynn MD Unavailable Izzy Hackett Unavailable sami Radha Pereira RN Unavailable [phone] Encounter Details Date Type Department Care Team (Late st Contact Info) Description 01/10/2019 Procedure Pass [facility] [address] [place] [address] Social History Tobacco Use Types Packs/Day Years [...] Description 07/22/2025 1:30 PM EDT Office Visit [facility] Family Medicine [address] [place] [address] [place] [address] Johann Hanson, TIFFANIE 22 [facility], [address] [place] [address] [email or web address] 07/23/2025 8:00 AM EDT Office Visit [facility] Rheumatology [address] [place] [address] [place] [address] Margaux Montanez MD [address] [place] [address], [address] [place] [address] [email or web address] 09/10/2025 9:00 AM EST Office Visit [facility] Gastroenterology Clinic 10 [place] [address] Unknown, Unknown, Shreyas Limon MD 10 [facility] 2 [place] [address] 09/21/2025 2:30 PM EST Office Visit [facility] Pulmonary, Allergy and Critical Care Medicine 10 [place] [address] Lester Hicks MD [address] [address] 10/13/2025 9:20 AM EST Office Visit [facility] Endocrinology [address] [place] [address] [place] [address] Doretha Glynn MD [address] [place] [address] [email or web address] 12/22/2025 8:30 AM EDT Office Visit [address] [place] [address] Johann Hanson, BOW TACKER [address] [place] [address], [address] [place] [address] [email or web address] 06/30/2026 8:00 AM EDT Office Visit [address] [place] [address] Johann Hanson, BOW TACKER [address] [place] [address], [address] [place] [address] [email or web address] documented as of this encounter Visit Diagnoses Not on filedocumented in this encounter Additional Health Concerns Infection Onset Date Last Indicated Resolved Time CoV-Presumed 05/27/2022 05/27/2022 06/17/2022 1:21 AM EDT CoV-Presumed Comment:COVID-19 Added 10/12/2022 10/12/2022 10/13/2022 6:26 P M EST COVID-19 10/13/2022 10/13/2022 11/03/2022 1:21 AM EST COVID-19 10/07/2023 10/07/2023 10/28/2023 1:21 AM EST documented as of this encounter Care Teams Sales And Service Consultant Relationship Specialty Start Date End Date Beatriz Donaldson NP [address] [place] [address] PCP - General Family Medicine 10/04/17 04/11/20 Mamta Whitney DO [address] [place] [address] [email or web address] PCP - General Family Medicine 04/12/20 02/08/21 Mamta Whitney DO [address] [place] [address] [email or web address] PCP - General Family Medicine 02/10/21 02/10/21 Johann Hanson CNP 22 [facility], [address] [place] [address] [email or web address] PCP - General Family Medicine 02/11/21 Tricia Balderas DO [address] [place] [address] [email or web address] Historical LMR Provider 07/28/17 10/15/21 Lester Hicks MD [address] [place] [address] [email or web address] Historical LMR Provider 07/28/17 Margaux Montanez MD [address] [place] [address], [address] [place] [address] [email or web address] Historical LMR Provider 07/28/17 Demario Floyd MD [address] [place] [address] [email or web address] Historical LMR Provider 07/28/17 10/15/21 Pam Benson MD [address] [place] [address] [email or web address] Historical LMR Provider 07/28/17 10/15/21 Adithya Campos BOW TACKER [address] [place] [address] [email or web address] Historical LMR Provider 07/28/17 12/25/21 Beatriz Donaldson NP [address] [place] [address] Historical LMR Provider 07/28/17 04/11/20 Khang Kilgore MD [address] [place] [address], [address] [place] [address] [email or web address] Insurance Assigned Provider 01/12/24 Luis Ignacio DO [address] [place] [address], [address] [place] [address] Cardiology 06/28/22 06/16/24 Flo Esteban MD [address] [place] [address] [place] [address] [email or web address] Cardiothoracic Surgery 06/28/22 06/16/24 Dilan Rowland MD [address] [place] [address], [address] [place] [address] [email or web address] Insurance Assigned Provider 07/15/22 08/13/22 Corby Prado MD [address] [place] [address], [address] [place] [address] [email or web address] Insurance Assigned Provider 08/13/22 09/16/22 Neisha Pinto RN [address] [place] [address], [address] [place] [address] [email or web address] Interior Wirer 02/26/23 06/10/25 Shreyas Wilson MD [address] [place] [address] [email or web address] Gastroenterology 06/17/24 Doretha Glynn MD [address] [place] [address] 3rd [place] [address] Endocrinology 06/17/24 Izzy Hackett [address] [place] [address] [email or web address] [facility] Community Trimming Machine Operator 09/11/24 09/11/24 Radha Pereira, RANDI [address] [place] [address] [email or web address] iCMP Interior WirerPanelboard Operator 06/11/25 documented as of this encounter Additional Source Comments The information contained in this document represents components of the legal health record. It is not the complete legal health record.[facility]
--- OUTSIDE RECORDS SUMMARY | 2025-07-13 08:53 | XMS_ITS | Encounter Summary ---
Author Organization [facility] Address [address] [facility] [address] [place] [address] Phone Care Team Providers Care Security Compliance Specialist Name Role Phone Lester Hicks MD Unavailable [phone] Margaux Montanez MD Unavailable [phone] Johann Hanson WELDER APPRENTICE Primary Care Provider [phone] Khang Kilgore MD Unavailable [phone] Shreyas Wilson MD Unavailable Doretha Glynn MD Unavailable [phone] Radha Pereira RN Unavailable [phone] Reason for Visit * Reason Onset Date Comments Lab sample 07/03/2025 Encounter Details Date Type Department Care Team (Late st Contact Info) Description 07/03/[address] [facility] [address] [place], [place] [phone] Johann Hnason, TIFFANIE 22 [facility], [address] [place], [place] [id number] [email or web address] Lab sample Social History Tobacco Use Types [...] high school, GED, job training, learning the Jamaican language, technical skills, or developing parenting skills)? [...] as of this encounter Progress Notes * Larissa Anglin - 07/08/2025 11:32 AM EDT I put a note in for desk reporter not to charge a copay. * Dolores Sawyer, RANDI - 07/03/2025 2:16 PM EDT Porsha was [...] when this should be done. Central Support Web Mobile Designer (Please do not reply to this user; this inbox is not monitored.) Thank you. documented in this encounter Plan of Treatment Upcoming Encounters Date Type Department Care Team (Late st Contact Info) Description 07/22/2025 1:30 PM EDT Office Visit [facility] [place] [address] [place] [address] Johann Hanson, WELDER APPRENTICE 22 [facility], [address] [place] [address] [email or web address] 07/23/2025 8:00 AM EDT Office Visit [facility] Rheumatology [address] [place] [address] Margaux Montanez MD [address] [place] [address], [address] [place] [address] [email or web address] 09/10/2025 9:00 AM EST Office Visit [facility] Gastroenterology Clinic [address] [place] [address] Unknown, [place], Shreyas Limon MD [address] [place] [address] 09/21/2025 2:30 PM EST Office Visit [facility] Pulmonary, Allergy and Critical Care Medicine 10 [place] [address] Lester Hicks MD [address] [place] [address] 10/13/2025 9:20 AM EST Office Visit [facility]in[facility] [address] [place] [address] Doretha Glynn MD [address] [place] [address] [address] [place] [address] [email or web address] 12/22/2025 8:30 AM EDT Office Visit [facility] Family Medicine [address] [place] [address] Johann Hanson, WELDER APPRENTICE [address] [place] [address], [address] [place] [address] [email or web address] 06/30/2026 8:00 AM EDT Office Visit [facility] [address] [place] [address] Johann Hanson CNP 22 [facility], [address] [place] [address] [email or web address] documented as of this encounter Visit Diagnoses Not on filedocumented in this encounter Additional Health Concerns Assessment Noted Time PHQ-9 Depression Total Score: 4 10/29/19 24 1:54 PM EST PHQ-2 Depression Total Score: 0 06/23/20 25 12:32 PM EDT documented as of this encounter Care Teams Security Compliance Specialist Relationship Specialty Start Date End Date Johann Hanson CNP [address] [place] [address], [address] [place] [address] PCP - General Family Medicine 02/11/21 Lester Hicks MD [address] [place] [address] Historical LMR Provider 07/28/17 Margaux Montanez MD [address] [place] [address], [address] [place] [address] Historical LMR Provider 07/28/17 Khang Kilgore MD [address] [place] [address], [address] [place] [address] Insurance Assigned Provider 01/12/24 Shreyas Wilson MD [address] [place] [address] [email or web address] Gastroenterology 06/17/24 Doretha Glynn MD [address] [place] [address] Endocrinology 06/17/24 Radha Pereira RN [address] [place] [address] [email or web address] [facility] Medical LiaisonOakes Machine Operator 06/11/25 documented as of this encounter Additional Source Comments The information contained in this document represents components of the legal health record. It is not the complete legal health record.[facility]
--- OUTSIDE RECORDS SUMMARY | 2025-07-13 08:53 | XMS_ITS | Encounter Summary ---
Author Organization [facility] Address [address] [place] [address] Phone Care Team Providers Care Ship Yard Electrical Person Name Role Phone Lester Hicks MD Unavailable [phone] Margaux Montanez MD Unavailable [phone] Johann Hanson CNP Primary Care Provider [phone] Khang Kilgore MD Unavailable [phone] Neisha Pinto RN Unavailable [email or web address] Shreysa Wilson MD Unavailable Doretha Glynn MD Unavailable [phone] Izzy Hackett Unavailable [email or web address] Radha Pereira RN Unavailable Encounter Details Date Type Department Care Team (Late st Contact Info) Description 06/17/2024 Procedure Pass [address] [address] Social History Tobacco Use Types Packs/Day Years [...] high school, GED, job training, learning the Martiniquais language, technical skills, or developing parenting skills)? [...] Description 07/22/2025 1:30 PM EDT Office Visit [facility] Family Medicine [address] [place] [address] [place] [address] Johann Hanson CNP 22 [facility], [address] [place] [address] [email or web address] 07/23/2025 8:00 AM EDT Office Visit [facility] Rheumatology [address] [place] [address] [place] [address] Margaux Montanez MD [address] [place] [address], [address] [place] [address] [email or web address] 09/10/2025 9:00 AM EST Office Visit [facility] Gastroenterology Clinic 10 [place] [address] Unknown, Unknown, Shreyas Limon MD [address] [place] [address] 09/21/2025 2:30 PM EST Office Visit [facility] Pulmonary, Allergy and Critical Care Medicine 10 [place] [address] Lester Hicks MD [address] [place] [address] 10/13/2025 9:20 AM EST Office Visit [facility]in[facility] [address] [place] [address] Doretha Glynn MD [address] [place] [address] [email or web address] 12/22/2025 8:30 AM EDT Office Visit [address] [place] [address] Johann Hanson CNP [address] [place] [address], [address] [place] [address] [email or web address] 06/30/2026 8:00 AM EDT Office Visit [address] [place] [address] Johann Hanson CNP [address] [place] [address], [address] [place] [address] [email or web address] documented as of this encounter Visit Diagnoses Not on filedocumented in this encounter Additional Health Concerns Assessment Noted Time PHQ-9 Depression Total Score: 4 10/29/19 24 1:54 PM EST PHQ-2 Depression Total Score: 0 06/23/20 25 12:32 PM EDT documented as of this encounter Care Teams Ship Yard Electrical Person Relationship Specialty Start Date End Date Johann Hanson CNP [address] [place] [address], [address] [place] [address] PCP - General Family Medicine 02/11/21 Lester Hicks MD [address] [place] [address] Historical LMR Provider 07/28/17 Margaux Montanez MD [address] [place] [address], [address] [place] [address] [email or web address] Historical LMR Provider 07/28/17 Khang Kilgore MD [address] [place] [address], [address] [place] [address] [email or web address] Insurance Assigned Provider 01/12/24 Neisha Pinto RN [address] [place] [address], [address] [place] [address] [email or web address] [email or web address] Puller 02/26/23 06/10/25 Shreyas Wilson MD [address] [place] [address] [email or web address] Gastroenterology 06/17/24 Doretha Glynn MD [address] [place] [address] [email or web address] Endocrinology 06/17/24 Izzy Hackett [address] [place] [address] [email or web address] [facility] Community Receiver/Laborer 09/11/24 09/11/24 Radha Pereira RN [address] [place] [address] [email or web address] [facility] Dross PullerImplementation Analyst 06/11/25 documented as of this encounter Additional Source Comments The information contained in this document represents components of the legal health record. It is not the complete legal health record.[facility]
--- OUTSIDE RECORDS SUMMARY | 2025-07-13 08:53 | XMS_ITS | Encounter Summary ---
Author Organization [facility] Address [address] [facility] [address] [place] [address] Phone Care Team Providers Care Organic Extractions Technician Name Role Phone Lester Hicks MD Unavailable [phone] Margaux Montanez MD Unavailable Johann Hanson CNP Primary Care Provider [phone] Khang Kilgore MD Unavailable [phone] Neisha Pinto RN Unavailable [email or web address] Shreyas Wilson MD Unavailable Doretha Glynn MD Unavailable [phone] Radha Pereira RN Unavailable Reason for Visit * Reason Comments Medication Refill Encounter Details Date Type Department Care Team (Late st Contact Info) Description 06/05/2025 Refill [facility] Rheumatology [address] [place], [place] [id number] Margaux Montanez MD 22 [facility], [address] [place] [address] [email or web address] Medication Refill [...] high school, GED, job training, learning the Romanian language, technical skills, or developing parenting skills)? [...] Description 07/22/2025 1:30 PM EDT Office Visit [facility] Family Medicine [address] [place] [address] [place] [address] Johann Hanson CNP [address] [place] [address], [address] [place] [address] [email or web address] 07/23/2025 8:00 AM EDT Office Visit [facility] Rheumatology [address] [place] [address] [place] [address] Margaux Montanez MD [address] [place] [address], [address] [place] [address] [email or web address] 09/10/2025 9:00 AM EST Office Visit [facility] Gastroenterology Clinic [address] [place] [address] Unknown, [place], Shreyas Limon MD [address] [place] [address] 09/21/2025 2:30 PM EST Office Visit [facility] Pulmonary, Allergy and Critical Care Medicine [address] [place] [address] Lester Hicks MD [address] [place] [address] 10/13/2025 9:20 AM EST Office Visit [facility] [address] [place] [address] [place] [address] Doretha Glynn MD [address] [place] [address] [email or web address] 12/22/2025 8:30 AM EDT Office Visit [address] [place] [address] Johann Hanson CNP [address] [place] [address], [address] [place] [address] [email or web address] 06/30/2026 8:00 AM EDT Office Visit [address] [place] [address] Johann Hanson CNP [address] [place] [address], [address] [place] [address] [email or web address] documented as of this encounter Visit Diagnoses Diagnosis Inflammatory arthritis Unspecified inflammatory polyarthropathy documented in this encounter Additional Health Concerns Assessment Noted Time PHQ-9 Depression Total Score: 4 10/29/19 1:54 PM EST PHQ-2 Depression Total Score: 0 06/10/20 9:22 AM EDT documented as of this encounter Care Teams Organic Extractions Technician Relationship Specialty Start Date End Date Johann Hanson CNP [address] [place] [address], [address] [place] [address] PCP - General Family Medicine 02/11/21 Lester Hicks MD [address] [place] [address] [email or web address] Historical LMR Provider 07/28/17 Margaux Montanez MD [address] [place] [address], [address] [place] [address] [email or web address] Historical LMR Provider 07/28/17 Khang Kilgore MD [address] [place] [address], [address] [place] [address] [email or web address] Insurance Assigned Provider 01/12/24 Neisha Pinto RN [address] [place] [address], [address] [place] [address] [email or web address] Aoc Plans Intelligence Officer Chief 02/26/23 06/10/25 Shreyas Wilson MD [address] [place] [address] [email or web address] Gastroenterology 06/17/24 Doretha Glynn MD [address] [place] [address] [email or web address] Endocrinology 06/17/24 Radha Pereira RN [address] [place] [address] [email or web address] iCMP Aoc Plans Intelligence Officer ChiefBelt Glass Sander 06/11/25 documented as of this encounter Additional Source Comments The information contained in this document represents components of the legal health record. It is not the complete legal health record.[facility]
== END 2025-07-13 09:27 | disposition home or self-care (01) ==
LOC: HO.HOS 08:25
PROVIDERS: PCP Nurse Practitioner Adult Health; Visit Provider Orthopaedic Surgery
DX: M17.12 Unilateral primary osteoarthritis, left knee (principal)
CPT/HCPCS: 99214

== ENCOUNTER → 2025-07-22 08:01 | Outpatient (REF) | payer OTHER, SELFPAY ==
--- OUTSIDE RECORDS SUMMARY | 2021-10-10 18:00 | XMS_ITS | Encounter Summary ---
Author Organization [facility] Address [address] [place] [address] [place] [address] Phone Care Team Providers Care Atm Servicer Name Role Phone Tricia Balderas Unavailable Lester Hicks MD Unavailable [phone] Margaux Montanez MD Unavailable Demario Floyd MD Unavailable Pam Benson MD Unavailable Adithya Campos DETENTION DEPUTY Unavailable Johann Hanson CNP Primary Care Provider [phone] Encounter Details Date Type Department Care Team (Late st Contact Info) Description 10/10/2021 5:00 PM EST Hospital Encounter [facility] [address] [place] [address] Natacha Hernandez CNP 12 [place], [place] [phone] Social History Tobacco Use Types Packs/Day Years [...] high school, GED, job training, learning the Greek language, technical skills, or developing parenting skills)? [...] 12/07/2022 9:18 AM Alise Hamilton RN * [place] Suicide Severity Rating Scale (Screener/Recent Self-Report) Question [...] Description 07/22/2025 1:30 PM EDT Office Visit [address] [place] [address] Johann Hanson, TIFFANIE [address] [place] [address], [address] [place] [address] [email or web address] 07/23/2025 8:00 AM EDT Office Visit [facility] Rheumatology [address] [place] [address] [place] [id number] Margaux Montanez MD [address] [place] [address], [address] [place] [address] [email or web address] 08/24/2025 1:30 PM EST Office Visit [address] [place] [address] Johann Hanson, DETENTION DEPUTY [address] [place] [address], [address] [place] [address] [email or web address] 09/10/2025 9:00 AM EST Office Visit [facility] 10 [place] [address] Unknown, [place], Shreyas Limon MD [address] [place] [address] 09/21/2025 2:30 PM EST Office Visit [facility], Allergy and Critical Care Medicine 10 [place] [address] Lester Hicks MD [address] [place] [address] 10/13/2025 9:20 AM EST Office Visit [facility] [address] [place] [address] Doretha Glynn MD [address] [place] [address] [email or web address] 12/22/2025 8:30 AM EDT Office Visit [address] [place] [address] Johann Hanson, DETENTION DEPUTY [address] [place] [address], [address] [place] [address] [email or web address] 06/30/2026 8:00 AM EDT Office Visit [address] [place] [address] Johann Hanson, DETENTION DEPUTY [address] [place] [address], [address] [place] [address] [email or web address] documented as of this encounter [...] body heights. Increased anterolisthesis of L4 on V7euges 2008, likely secondary to facet degenerative changes. us Natacha Hernandez DETENTION DEPUTY IMG XR SPINE Final Resul t documented in this encounter Visit Diagnoses Not on filedocumented in this encounter Additional Health Concerns Infection Onset Date Last Indicated Resolved Time CoV-Presumed 05/27/2022 05/27/202206/1706/17/2022 1:21 AM EDT CoV-Presumed Comment:COVID-19 Added 10/12/2022 10/12/2022 10/13/2022 6:26 P M EST COVID-19 10/13/2022 10/13/2022 11/03/2022 1:21 AM EST COVID-19 10/07/2023 10/07/2023 10/28/2023 1:21 AM EST Assessment Noted Time PHQ-2 Depression Total Score: 0 05/16/20 2:09 PM EDT documented as of this encounter Care Teams Atm Servicer Relationship Specialty Start Date End Date Johann Hanson CNP 22 [facility], [address] [place] [address] [email or web address] PCP - General Family Medicine 02/11/21 Tricia Balderas DO 30 [place] [address] [email or web address] Historical LMR Provider 07/28/17 10/15/21 Lester Hicks MD [address] [place] [address] [email or web address] Historical LMR Provider 07/28/17 Margaux Montanez MD 22 [facility], [address] [place] [address] [email or web address] Historical LMR Provider 07/28/17 Demario Floyd MD [address] [place] [address] [email or web address] Historical LMR Provider 07/28/17 2 Pam Benson MD [address] [address] [email or web address] Historical LMR Provider 07/28/17 Adithya Campos CNP [address] [address] [email or web address] Historical LMR Provider 07/28/17 12/25/21 documented as of this encounter Additional Source Comments The information contained in this document represents components of the legal health record. It is not the complete legal health record.[facility]
--- NOTE | 2025-07-22 08:04 | CA_ITS ---
Transthoracic Echocardiogram Patient (Last, First, Middle): Herlinda Monge, Gender: F Date of : 1960 Age: 65 Procedure Date: 07/22/2025 Procedure Type: Transthoracic Echocardiogram Location: OP Height: 162.56 cm Weight: 81.65 kg BSA: 1.87 m2 Heart Rate: bpm BP: 110 / 68 mmHg Hoisting Laborer: REJI Referring MD: Johann Hanson NP Setter Helper: Carlos Serrano MD Symptoms: HYPERTENSION Study Quality: Adequate with contrast ECG Rhythm: Sinus Conclusions: - 1. Normal LV ejection fraction of 60 65% with grade 1 diastolic dysfunction 2. Mild calcific aortic and mitral valve changes noted with early mild aortic stenosis 3. Normal RV systolic pressure 4. No gross pericardial effusion Findings Procedure Information Contrast agent, definity, is being given per protocol without apparent complications. Left Ventricle Normal left ventricular size, thickness, and systolic function. The visually estimated ejection fraction is between 60-65%. Spectral Doppler is indicative of an impaired relaxation filling pattern. E/E prime ratio is <8, consistent with normal filling pressures. Evidence suggests grade I (mild) diastolic dysfunction. Right Ventricle Normal right ventricular cavity size and systolic function. Atria Both atria are normal in size. Interatrial shunt cannot be excluded. Aortic Valve There is mild calcification of the aortic valve. There is mild aortic valve stenosis. The peak aortic velocity is 2.03 m/s with a calculated peak gradient of 16 mmHg. The mean gradient is 9 mmHg. There is no aortic valve regurgitation. Mitral Valve There is mild anterior mitral leaflet thickening. There is mild mitral annular calcification. There is trace mitral valve regurgitation. There is no mitral valve stenosis. Tricuspid Valve Normal tricuspid valve structure. There is trace tricuspid valve regurgitation. The right ventricular systolic pressure is normal. The right ventricular systolic pressure is 23 mmHg. Normal right atrial pressure. There is no evidence of pulmonary hypertension. Great Vessels All visible segments of the aorta are normal in size. The pulmonary artery was not well visualized. Venous The inferior vena cava is normal in size and collapses greater than 50% with inspiration. Pericardium/Pleural There is no evidence of pericardial effusion. Prior Study Comparison No prior study available for comparison. Measurements 2D Linear Measurements IVSd: 1.05 0.6-0.9/0.6-1.0 cm LVIDd: 3.91 3.9-5.3/4.2-5.9 cm LVIDd Index: 2.09 2.4-3.2/2.2-3.1 cm/m2 LVIDs: 2.71 2.0-3.6 cm LVPWd: 1.04 0.7-1.1 cm LA Diam: 3.80 2.7-3.8/3.0-4.0 cm LAIDs Index: 2.03 1.5-2.3 cm/m2 LV Mass: 162.47 67-162/88-224 g LV Mass Index: 86.88 43-95/49-115 g/m2 LVOT Diam: 2.20 3.0+(-)1.3 cm 2D Systolic Function EF 4C: 58.40 >55% EF 2C: 62.20 >55% EF BiP: 60.10 >55% Mitral Valve MV Pk E: 0.64 MV PK A: 0.76 MV Decel Time: 257.00 E/A: 0.80 E'Lateral: 9.25 E'Medial: 7.07 E/E' Med: 9.00 E/E' Lat: 6.90 PHT: 75.00 MVA PHT: 2.93 Decel Routt: 2.48 Aortic Valve AoV Pk Jim: 2.03 AoV Mn Jim: 1.40 AoV VTI: 0.42 AoV Pk Grad: 16.00 Aov Mn Grad: 9.00 DEMETRIUS Cont.VTI: 1.81 LVOT LVOT Pk Jim: 1.10 LVOT Mn Jim: 0.71 LVOT VTI: 0.20 LVOT Pk Grad: 5.00 LVOT Mn Grad: 2.00 LVOT Diam: 2.20 LVOT Area: 3.80 Diastolic Function MV Pk E: 0.64 MV Pk A: 0.76 E/A: 0.80 E'Medial: 7.07 E/E' Med: 9.00 E' Laterial: 9.25 E/E' Lat: 6.90 Right Ventricle TAPSE (mm): 23.00 TVS' Jim: 10.40 Tricuspid Valve TR Pk Jim: 2.24 TR Pk Grad: 20.00 RA Press: 3.00 RVSP: 23.00 Great Vessels Aorta Sinus of Valsalva: 2.85 2.0-3.5 cm Ao Asc: 3.40 2.1-3.4 cm Ao Arch: 3.10 Pulmonary Veins Pulm Vein S/D 1.50 Updated in Other Vendor System with Status of Final Carlos Serrano MD electronically signed on 07/22/2025 10:00:34 AM with status of Final
--- OUTSIDE RECORDS SUMMARY | 2025-07-22 08:10 | XMS_ITS | Encounter Summary ---
Author Organization [facility] Address [address] [place] [address] Phone Care Team Providers Care Foundation Stage Teacher Name Role Phone Lester Hicks MD Unavailable [phone] Margaux Montanez MD Unavailable Johann Hanson CNP Primary Care Provider [phone] Khang Kilgore MD Unavailable [phone] Luis Ignacio DO Unavailable [phone] Flo Esteban MD Unavailable [phone] Neisha Pinto RN Unavailable [email or web address] Shreyas Wilson MD Unavailable [phone] Doretha Glynn MD Unavailable [phone] Izzy Hackett Unavailable [email or web address] Radha Pereira RN Unavailable Encounter Details Date Type Department Care Team (Late st Contact Info) Description 12/13/2022 Procedure Pass [facility] Cardiovascular And Interventional Radiology [address] [place], [place] [id number] Social History Tobacco Use Types Packs/Day Years [...] high school, GED, job training, learning the Northern [place] language, technical skills, or developing parenting skills)? [...] Description 07/22/2025 1:30 PM EDT Office Visit [facility] Family Medicine [address] [place] [address] [place] [address] Johann Hanson, TIFFANIE [address] [facility], [address] [place] [address] [email or web address] 07/23/2025 8:00 AM EDT Office Visit [facility] Rheumatology [address] [place] [address] Margaux Montanez MD [address] [place] [address], [address] [place] [address] [email or web address] 08/24/2025 1:30 PM EST Office Visit [address] [place] [address] Johann Hanson, COURT CRIER [address] [place] [address], [address] [place] [address] [email or web address] 09/10/2025 9:00 AM EST Office Visit [facility] 10 [place] [address] Unknown, [place], Shreyas Limon MD [address] [place] [address] 09/21/2025 2:30 PM EST Office Visit [facility] Allergy [facility] Critical Care Medicine 10 [place] [address] Lester Hicks MD [address] [place] [address] 10/13/2025 9:20 AM EST Office Visit [facility] 22 [place] [address] Doretha Glynn MD [address] [place] [address] [address] [place] [address] [email or web address] 12/22/2025 8:30 AM EDT Office Visit [address] [place] [address] Johann Hanson, COURT CRIER [address] [place] [address], [address] [place] [address] [email or web address] 06/30/2026 8:00 AM EDT Office Visit [facility] 22 [place] [address] Johann Hanson CNP [address] [facility], [address] [place] [address] [email or web address] documented as of this encounter Visit Diagnoses Not on filedocumented in this encounter Additional Health Concerns Infection Onset Date Last Indicated Resolved Time COVID-19 10/07/2023 10/07/2023 10/28/2023 1:21 AM EST Assessment Noted Time PHQ-2 Depression Total Score: 0 05/15/20 1:45 PM EDT documented as of this encounter Care Teams Foundation Stage Teacher Relationship Specialty Start Date End Date Johann Hanson CNP [address] [place] [address], [address] [place] [address] PCP - General Family Medicine 02/11/21 Lester Hicks MD [address] [place] [address] Historical LMR Provider 07/28/17 Margaux Montanez MD [address] [place] [address], [address] [place] [address] [email or web address] Historical LMR Provider 07/28/17 Khang Kilgore MD [address] [place] [address], [address] [place] [address] Insurance Assigned Provider 01/12/24 Luis Ignacio DO [address] [place] [address], [address] [place] [address] Cardiology 06/28/22 06/16/24 Flo Esteban MD [address] [place] [address] [email or web address] Cardiothoracic Surgery 06/28/22 06/16/24 Neisha Pinto RN [address] [place] [address] [email or web address] PHCM Concept Artist 02/26/23 06/10/25 Shreyas Wilson MD [address] [place] [address] Gastroenterology 06/17/24 Doretha Glynn MD [address] [place] [address] Endocrinology 06/17/24 Izzy Hackett [address] [place] [address] [email or web address] PHCM Community Leather Stretcher 09/11/24 09/11/24 Radha Pereira RN [address] [place] [address] PHCM Concept ArtistPlanner Intern 06/11/25 documented as of this encounter Additional Source Comments The information contained in this document represents components of the legal health record. It is not the complete legal health record.[facility]
--- OUTSIDE RECORDS SUMMARY | 2025-07-22 08:10 | XMS_ITS | Encounter Summary ---
Author Organization [facility] Address [address] [place] [address] [place] [address] Phone Care Team Providers Care Table Operator Name Role Phone Lester Hicks MD Unavailable [phone] Margaux Montanez MD Unavailable Johann Hanson CNP Primary Care Provider [phone] Khang Kilgore MD Unavailable [phone] Neisha Pinto RN Unavailable [email or web address] Shreyas Wilson MD Unavailable [phone] Doretha Glynn MD Unavailable [phone] Radha Pereira RN Unavailable [phone] Encounter Details Date Type Department Care Team (Late st Contact Info) Description 01/13/2025 Procedure Pass [facility] L2 PRU [address] [place] [address] Social History Tobacco Use Types Packs/Day Years [...] high school, GED, job training, learning the Bhutanese language, technical skills, or developing parenting skills)? [...] Description 07/22/2025 1:30 PM EDT Office Visit [address] [place] [address] Johann Hanson, SHOP CLERK [address] [place] [address], [address] [place] [address] [email or web address] 07/23/2025 8:00 AM EDT Office Visit [facility] Rheumatology [address] [place] [address] [place] [address] Margaux Montanez MD [address] [place] [address], [address] [place] [address] [email or web address] 08/24/2025 1:30 PM EST Office Visit [address] [place] [address] Johann Hanson, SHOP CLERK [address] [place] [address], [address] [place] [address] [email or web address] 09/10/2025 9:00 AM EST Office [facility] Gastroenterology Clinic 10 [place] [address] Unknown, Unknown, Shreyas Limon MD [address] [id number] 09/21/2025 2:30 PM EST Office Visit [facility] Pulmonary, Allergy [facility] Critical Care Medicine 10 [facility] [place] [address] Lester Hicks MD [address] [place] [address] 10/13/2025 9:20 AM EST Office Visit [facility] 22 [place] [address] Doretha Glynn MD [address] [place] [address] [email or web address] 12/22/2025 8:30 AM EDT Office Visit [address] [place] [address] Johann Hanson CNP [address] [place] [address], [address] [place] [address] [email or web address] 06/30/2026 8:00 AM EDT Office Visit [address] [place] [address] Johann Hanson CNP [address] [place] [address], [address] [place] [address] [email or web address] documented as of this encounter Visit Diagnoses Not on filedocumented in this encounter Additional Health Concerns Assessment Noted Time PHQ-9 Depression Total Score: 4 10/29/19 24 1:54 PM EST PHQ-2 Depression Total Score: 0 06/10/20 24 9:22 AM EDT documented as of this encounter Care Teams Table Operator Relationship Specialty Start Date End Date Johann Hanson CNP [address] [place] [address], [address] [place] [address] PCP - General Family Medicine 02/11/21 Lester Hicks MD [address] [place] [address] [email or web address] Historical LMR Provider 07/28/17 Margaux Montanez MD [address] [place] [address], [address] [place] [address] [email or web address] Historical LMR Provider 07/28/17 Khang Kilgore MD [address] [place] [address], [address] [place] [address] [email or web address] Insurance Assigned Provider 01/12/24 Neisha Pinto RN [address] [place] [address], [address] [place] [address] [email or web address] PHCM Deck Molder 02/26/23 06/10/25 Shreyas Wilson MD [address] [place] [address] [email or web address] Gastroenterology 06/17/24 Doretha Glynn MD [address] [place] [address] [address] [place] [address] [email or web address] Endocrinology 06/17/24 Radha Pereira RN [address] [place] [address] [email or web address] PHCM Deck MolderForest Practices Field Coordinator 06/11/25 documented as of this encounter Additional Source Comments The information contained in this document represents components of the legal health record. It is not the complete legal health record.[facility]
--- OUTSIDE RECORDS SUMMARY | 2025-07-22 08:10 | XMS_ITS | Encounter Summary ---
Author Organization [facility] Address [address] [place] [address] Phone Care Team Providers Care Body Line Finisher Name Role Phone Lester Hicks MD Unavailable [phone] Margaux Montanez MD Unavailable Johann Hanson CNP Primary Care Provider [phone] Khang Kilgore MD Unavailable Luis Ignacio DO Unavailable Flo Esteban MD Unavailable [phone] Neisha Pinto RN Unavailable [email or web address] Shreyas Wilson MD Unavailable Doretha Glynn MD Unavailable [phone] Izzy Hackett Unavailable [email or web address] Radha Pereira RN Unavailable Encounter Details Date Type Department Care Team (Late st Contact Info) Description 12/08/2022 Procedure Pass [facility] Cardiovascular And Interventional Radiology [address] [place], [place] [id number] Social History Tobacco Use Types Packs/Day Years [...] 07/22/2025 1:30 PM EDT Office Visit [facility] Family Medicine [address] [place] [address] [place] [address] Johann Hanson, TIFFANIE 22 [facility], [address] [place] [address] [email or web address] 07/23/2025 8:00 AM EDT Office Visit [facility] Rheumatology [address] [place] [address] Margaux Montanez MD [address] [place] [address], [address] [place] [address] [email or web address] 08/24/2025 1:30 PM EST Office Visit [address] [place] [address] Johann Hanson, ORNAMENTAL MACHINE OPERATOR [address] [place] [address], [address] [place] [address] [email or web address] 09/10/2025 9:00 AM EST Office Visit [facility] Gastroenterology Clinic 10 [place] [address] Unknown, [place], Shreyas Limon MD [address] [place] [address] 09/21/2025 2:30 PM EST Office Visit [facility] Critical [facility] Medicine 10 [place] [address] Lester Hicks MD [address] [place] [address] 10/13/2025 9:20 AM EST Office Visit [facility] 22 [place] [address] Doretha Glynn MD [address] [place] [address] [address] [place] [address] [email or web address] 12/22/2025 8:30 AM EDT Office Visit [address] [place] [address] Johann Hanson, ORNAMENTAL MACHINE OPERATOR [address] [place] [address], [address] [place] [address] [email or web address] 06/30/2026 8:00 AM EDT Office Visit [facility] 22 [place] [address] Johann Hanson CNP 22 [facility], [address] [place] [address] [email or web address] documented as of this encounter Visit Diagnoses Not on filedocumented in this encounter Additional Health Concerns Infection Onset Date Last Indicated Resolved Time COVID-19 10/07/2023 10/07/2023 10/28/2023 1:21 AM EST Assessment Noted Time PHQ-2 Depression Total Score: 0 05/15/20 1:45 PM EDT documented as of this encounter Care Teams Body Line Finisher Relationship Specialty Start Date End Date Johann Hanson CNP [address] [place] [address], [address] [place] [address] PCP - General Family Medicine 02/11/21 Lester Hicks MD [address] [place] [address] Historical LMR Provider 07/28/17 Margaux Montanez MD [address] [place] [address], [address] [place] [address] [email or web address] Historical LMR Provider 07/28/17 Khang Kilgore MD [address] [place] [address], [address] [place] [address] Insurance Assigned Provider 01/12/24 Luis Ignacio DO [address] [place] [address], [address] [place] [address] Cardiology 06/28/22 06/16/24 Flo Esteban MD [address] [place] [address] [email or web address] Cardiothoracic Surgery 06/28/22 06/16/24 Neisha Pinto RN [address] [place] [address] [email or web address] PHCM Specialty Molder 02/26/23 06/10/25 Shreyas Wilson MD [address] [place] [address] Gastroenterology 06/17/24 Doretha Glynn MD [address] [place] [address] Endocrinology 06/17/24 Izzy Hackett [address] [place] [address] [email or web address] PHCM Community Prototype Assembler Electronics 09/11/24 09/11/24 Radha Pereira RN [address] [place] [address] PHCM Specialty MolderCotton Factor 06/11/25 documented as of this encounter Additional Source Comments The information contained in this document represents components of the legal health record. It is not the complete legal health record.[facility]
--- OUTSIDE RECORDS SUMMARY | 2025-07-22 08:10 | XMS_ITS | Clinical Summary ---
Author Organization [facility] Address [address] [place] [address] Care Team Providers Care Fisher Gill Net Name Role Phone Unavailable Primary Care Provider [...] - 2023-2 5 season) 2025 RSV Vaccine 50 years and old er and Patients (1 - 1-dose 75+ series) 2037 Hepatitis B Vaccines Aged Out No long er eligible based on patient's age to complete this topic
--- OUTSIDE RECORDS SUMMARY | 2025-07-22 08:10 | XMS_ITS | Encounter Summary ---
Author Organization [facility] Address [address] [place] [address] [place] [address] Phone Care Team Providers Care Planting Machine Operator Name Role Phone Lester Hicks MD Unavailable [phone] Margaux Montanez MD Unavailable Johann Hanson CNP Primary Care Provider [phone] Khang Kilgore MD Unavailable Luis Ignacio DO Unavailable Flo Esteban MD Unavailable [phone] Dilan Rowland MD Unavailable [phone] Corby Prado MD Unavailable [phone] Neisha Pinto RN Unavailable [email or web address] Shreyas Wilson MD Unavailable Doretha Glynn MD Unavailable [phone] Izzy Hackett Unavailable [email or web address] Radha Pereira RN Unavailable [phone] Encounter Details Date Type Department Care Team (Late st Contact Info) Description 02/28/2022 Procedure Pass [facility], Ct Scan - [address] [id number] Social History Tobacco Use Types Packs/Day Years [...] high school, GED, job training, learning the Singaporean language, technical skills, or developing parenting skills)? [...] EDT Office Visit [facility] [place] [facility] [address] [place] [address] Johann Hanson, TIFFANIE 22 [facility], [address] [place] [address] [email or web address] 07/23/2025 8:00 AM EDT Office Visit [facility] Rheumatology [address] [place] [address] Margaux Montanez MD 22 [facility], [address] [place] [address] [email or web address] 08/24/2025 1:30 PM EST Office Visit [address] [place] [address] Johann Hanson, LOG PEELER 22 [facility], [address] [place] [address] [email or web address] 09/10/2025 9:00 AM EST Office Visit [facility] Gastroenterology Clinic 10 [place] [address] Unknown, Unknown, Shreyas Limon MD [address] [place] [address] 09/21/2025 2:30 PM EST Office Visit [facility] Pulmonary, Allergy and Critical Care Medicine 10 [place] [address] Lester Hicks MD [address] [place] [address] 10/13/2025 9:20 AM EST Office Visit [facility] [address] [place] [address] Doretha Glynn MD [address] [place] [address] [email or web address] 12/22/2025 8:30 AM EDT Office Visit [address] [place] [address] Johann Hanson CNP 22 [facility], [address] [place] [address] [email or web address] 06/30/2026 8:00 AM EDT Office Visit [facility] 22 [place] [address] Johann Hanson CNP 22 [facility], [address] [place] [address] [email or web address] documented as of this encounter [...] Time PHQ-2 Depression Total Score: 2 02/25/20 22 11:48 AM EDT documented as of this encounter Care Teams Planting Machine Operator Relationship Specialty Start Date End Date Johann Hanson CNP 22 [facility], [address] [place] [address] PCP - General Family Medicine 02/11/21 Lester Hicks MD [address] [place] [address] Historical LMR Provider 07/28/17 Margaux Montanez MD 22 [facility], [address] [place] [address] [email or web address] Historical LMR Provider 07/28/17 Khang Kilgore MD [address] [place] [address], [address] [place] [address] Insurance Assigned Provider 01/12/24 Luis Ignacio DO [address] [place] [address], [address] [place] [address] Cardiology 06/28/22 06/16/24 Flo Esteban MD [address] [place] [address] [email or web address] Cardiothoracic Surgery 06/28/22 06/16/24 Dilan Rowland MD [address] [place] [address], [address] [place] [address] Insurance Assigned Provider 07/15/22 08/13/22 Corby Prado MD [address] [place] [address], [address] [place] [address] Insurance Assigned Provider 08/13/22 09/16/22 Neisha Pinto, RANDI [address] [place] [address], [address] [place] [address] [email or web address] Ambulatory Analyst 02/26/23 06/10/25 Shreyas Wilson MD [address] [place] [address] [email or web address] Gastroenterology 06/17/24 Doretha Glynn MD [address] [address] Endocrinology 06/17/24 Izzy Hackett [address] [place] [address] [email or web address] PHCM Community Cutter Operator 09/11/24 09/11/24 Radha Pereira, RN [address] [place] [address] PHCM Epic Ambulatory AnalystOral Surgeon 06/11/25 documented as of this encounter Additional Source Comments The information contained in this document represents components of the legal health record. It is not the complete legal health record.[facility]
--- OUTSIDE RECORDS SUMMARY | 2025-07-22 08:10 | XMS_ITS | Encounter Summary ---
Author Organization [facility] Address [address] [place] [address] Phone Care Team Providers Care Exercise Equipment Specialist Name Role Phone Lester Hicks MD Unavailable [phone] Margaux Montanez MD Unavailable [phone] Johann Hanson CNP Primary Care Provider [phone] Khang Kilgore MD Unavailable Luis Ignacio DO Unavailable Flo Esteban MD Unavailable [phone] Neisha Pinto RN Unavailable [email or web address] Shreyas Wilson MD Unavailable Doretha Glynn MD Unavailable [phone] Izzy Hackett Unavailable [email or web address] Radha Pereira RN Unavailable Encounter Details Date Type Department Care Team (Late st Contact Info) Description 12/22/2022 Procedure Pass [facility], [address] [id number] Social History Tobacco Use Types Packs/Day Years [...] Description 07/22/2025 1:30 PM EDT Office Visit [facility] Family Medicine [address] [place] [address] [place] [address] Johann Hanson, TIFFANIE [address] [facility], [address] [place] [address] [email or web address] 07/23/2025 8:00 AM EDT Office Visit [facility] Rheumatology [address] [place] [address] [place] [address] Margaux Montanez MD [address] [place] [address], [address] [place] [address] [email or web address] 08/24/2025 1:30 PM EST Office Visit [address] [place] [address] Johann Hanson, ALLEY WORKER [address] [place] [address], [address] [place] [address] [email or web address] 09/10/2025 9:00 AM EST Office Visit [facility] Gastroenterology Clinic 10 [place] [address] Unknown, Unknown, Shreyas Limon MD [address] [place] [address] 09/21/2025 2:30 PM EST Office Visit [facility] Pulmonary, Allergy and Critical Care Medicine 10 [place] [address] Lester Hicks MD [address] [place] [address] 10/13/2025 9:20 AM EST Office Visit [facility] Endocrinology [address] [place] [address] [place] [address] Doretha Glynn MD [address] [place] [address] 3[address] [place] [address] [email or web address] 12/22/2025 8:30 AM EDT Office Visit [address] [place] [address] Johann Hanson, ALLEY WORKER [address] [place] [address], [address] [place] [address] [email or web address] 06/30/2026 8:00 AM EDT Office Visit [facility] [address] [address] Johann Hanson CNP [address] [facility], [address] [place] [address] [email or web address] documented as of this encounter Visit Diagnoses Not on filedocumented in this encounter Additional Health Concerns Infection Onset Date Last Indicated Resolved Time COVID-19 10/07/2023 10/07/2023 10/28/2023 1:21 AM EST Assessment Noted Time PHQ-2 Depression Total Score: 0 01/01/20 23 1:26 PM EDT documented as of this encounter Care Teams Exercise Equipment Specialist Relationship Specialty Start Date End Date Johann Hanson CNP [address] [place] [address], [address] [place] [address] PCP - General Family Medicine 02/11/21 Lester Hicks MD [address] [place] [address] Historical LMR Provider 07/28/17 Margaux Montanez MD [address] [place] [address], [address] [place] [address] [email or web address] Historical LMR Provider 07/28/17 Khang Kilgore MD [address] [place] [address], [address] [place] [address] Insurance Assigned Provider 01/12/24 Luis Ignacio DO [address] [place] [address], [address] [place] [address] Cardiology 06/28/22 06/16/24 Flo Esteban MD [address] [place] [address] [email or web address] Cardiothoracic Surgery 06/28/22 06/16/24 Neisha Pinto RN [address] [place] [address] [email or web address] PHCM Household Refrigeration Mechanic 02/26/23 06/10/25 Shreyas Wilson MD [address] [place] [address] Gastroenterology 06/17/24 Doretha Glynn MD [address] [place] [address] 3rd [place] [address] Endocrinology 06/17/24 Izzy Hackett [address] [place] [address] [email or web address] PHCM Community Pediatric Critical Care Nurse 09/11/24 09/11/24 Radha Pereira RN [address] [place] [address] PHCM Household Refrigeration MechanicSpiral Machine Operator 06/11/25 documented as of this encounter Additional Source Comments The information contained in this document represents components of the legal health record. It is not the complete legal health record.[facility]
--- OUTSIDE RECORDS SUMMARY | 2025-07-22 08:10 | XMS_ITS | Encounter Summary ---
Author Organization [facility] Address [address] [facility] [address] [place] [address] Phone Care Team Providers Care Graphic Design Teacher Name Role Phone Lester Hicks MD Unavailable [phone] Margaux Montanez MD Unavailable Johann Hanson HAND MITER OPERATOR Primary Care Provider [phone] Khang Kilgore MD Unavailable [phone] Luis Ignacio DO Unavailable [phone] Flo Esteban MD Unavailable [phone] Neisha Pinto RN Unavailable [email or web address] Shreyas Wilson MD Unavailable [phone] Doretha Glynn MD Unavailable [phone] Izzy Hackett Unavailable [email or web address] Radha Pereira RN Unavailable [phone] Encounter Details Date Type Department Care Team (Latest Contact Info) Description 12/22/2022 Transcribe Orders Virtual Department 30 [place] [address] Johann Hanson, HAND MITER OPERATOR [address] [facility], [address] [place], [place] [id number] [email or web address] Breast screening [...] high school, GED, job training, learning the Ecuadorean language, technical skills, or developing parenting skills)? [...] EDT Office Visit [facility] [place] [facility] [address] [place] [address] [place] [address] Johann Hanson, TIFFANIE [address] [facility], [address] [place] [address] [email or web address] 07/23/2025 8:00 AM EDT Office Visit [facility] Rheumatology [address] [place] [address] Margaux Montanez MD [address] [place] [address], [address] [place] [address] [email or web address] 08/24/2025 1:30 PM EST Office Visit [address] [place] [address] Johann Hanson, TIFFANIE [address] [place] [address], [address] [place] [address] [email or web address] 09/10/2025 9:00 AM EST Office Visit [facility] Gastroenterology Clinic 10 [place] [address] Unknown, Unknown, Shreyas Limon MD [address] [place] [address] 09/21/2025 2:30 PM EST Office Visit [facility] Pulmonary, Allergy and Critical Care Medicine 10 [place] [address] Lester Hicks MD [address] [place] [address] 10/13/2025 9:20 AM EST Office Visit [facility] [address] [place] [address] [place] [address] Doretha Glynn MD [address] [place] [address] [email or web address] 12/22/2025 8:30 AM EDT Office Visit [address] [place] [address] Johann Hanson, HAND MITER OPERATOR [address] [facility], [address] [place] [address] [email or web address] 06/30/2026 8:00 AM EDT Office Visit [facility] Family Medicine [address] [place] [address] Johann Hanson, HAND MITER OPERATOR [address] [facility], [address] [place] [address] [email or web address] documented as of this encounter [...] 12 Months Recommendation: Left Mammography Screening us Johann Hanson CNP IMG MG EXAMS Final [...] documented as of this encounter Care Teams Graphic Design Teacher Relationship Specialty Start Date End Date Johann Hanson CNP [address] [place] [address], [address] [place] [address] PCP - General Family Medicine 02/11/21 Lester Hicks MD [address] [place] [address] Historical LMR Provider 07/28/17 Margaux Montanez MD [address] [place] [address], [address] [place] [address] [email or web address] Historical LMR Provider 07/28/17 Khang Kilgore MD [address] [place] [address], [address] [place] [address] [email or web address] Insurance Assigned Provider 01/12/24 Luis Ignacio DO [address] [place] [address], [address] [place] [address] [email or web address] Cardiology 06/28/22 06/16/24 Flo Esteban MD [address] [place] [address] [email or web address] Cardiothoracic Surgery 06/28/22 06/16/24 Neisha Pinto RN [address] [place] [address] [email or web address] PHCM Extension Course Coordinator 02/26/23 06/10/25 Shreyas Wilson MD [address] [place] [address] [email or web address] Gastroenterology 06/17/24 Doretha Glynn MD [address] [place] [address] 3rd [place] [address] Endocrinology 06/17/24 Izzy Hackett [address] [place] [address] [email or web address] PHCM Community Testing Shaking Shipping 09/11/24 09/11/24 Radha Pereira, RANDI [address] [place] [address] [email or web address] PHCM Extension Course CoordinatorGranite Polisher 06/11/25 documented as of this encounter Additional Source Comments The information contained in this document represents components of the legal health record. It is not the complete legal health record.[facility]
--- OUTSIDE RECORDS SUMMARY | 2025-07-22 08:10 | XMS_ITS | Encounter Summary ---
Author Organization [facility] Address [address] [place] [address] Phone Care Team Providers Care Wall Covering Contractor Name Role Phone Lester Hicks MD Unavailable [phone] Margaux Montanez MD Unavailable Johann Hanson CNP Primary Care Provider [phone] Khang Kilgore MD Unavailable [phone] Luis Ignacio DO Unavailable Flo Esteban MD Unavailable [phone] Neisha Pinto RN Unavailable [email or web address] Shreyas Wilson MD Unavailable Doretha Glynn MD Unavailable [phone] Izzy Hackett Unavailable [email or web address] Radha Pereira RN Unavailable Encounter Details Date Type Department Care Team (Late st Contact Info) Description 12/08/2022 Procedure Pass [facility] Cardiovascular And Interventional Radiology 30 [place], [place] [id number] Social History Tobacco Use Types Packs/Day Years [...] high school, GED, job training, learning the [place] language, technical skills, or developing parenting skills)? [...] Description 07/22/2025 1:30 PM EDT Office Visit [facility] Family Medicine [address] [place] [address] [place] [address] Johann Hanson, TIFFANIE [address] [facility], [address] [place] [address] [email or web address] 07/23/2025 8:00 AM EDT Office Visit [facility] Rheumatology [address] [place] [address] Margaux Montanez MD [address] [place] [address], [address] [place] [address] [email or web address] 08/24/2025 1:30 PM EST Office Visit [address] [place] [address] Johann Hanson, RE EXAMINER [address] [place] [address], [address] [place] [address] [email or web address] 09/10/2025 9:00 AM EST Office Visit [facility] Gastroenterology Clinic 10 [place] [address] Unknown, [place], Shreyas Limon MD [address] [place] [address] 09/21/2025 2:30 PM EST Office Visit [facility] Allergy [facility] Critical Care Medicine 10 [place] [address] Lester Hicks MD [address] [place] [address] 10/13/2025 9:20 AM EST Office Visit [facility] Endocrinology 22 [place] [address] Doretha Glynn MD [address] [place] [address] [address] [place] [address] [email or web address] 12/22/2025 8:30 AM EDT Office Visit [address] [place] [address] Johann Hanson, RE EXAMINER [address] [place] [address], [address] [place] [address] [email or web address] 06/30/2026 8:00 AM EDT Office Visit [facility] 22 [place] [address] Johann Hanson CNP [address] [facility], [address] [place] [address] [email or web address] documented as of this encounter Visit Diagnoses Not on filedocumented in this encounter Additional Health Concerns Infection Onset Date Last Indicated Resolved Time COVID-19 10/07/2023 10/07/2023 10/28/2023 1:21 AM EST Assessment Noted Time PHQ-2 Depression Total Score: 0 05/15/20 1:45 PM EDT documented as of this encounter Care Teams Wall Covering Contractor Relationship Specialty Start Date End Date Johann Hanson CNP [address] [place] [address], [address] [place] [address] PCP - General Family Medicine 02/11/21 Lester Hicks MD [address] [place] [address] Historical LMR Provider 07/28/17 Margaux Montanez MD [address] [place] [address], [address] [place] [address] [email or web address] Historical LMR Provider 07/28/17 Khang Kilgore MD [address] [place] [address], [address] [place] [address] Insurance Assigned Provider 01/12/24 Luis Ignacio DO [address] [place] [address], [address] [place] [address] Cardiology 06/28/22 06/16/24 Flo Esteban MD [address] [place] [address] [email or web address] Cardiothoracic Surgery 06/28/22 06/16/24 Neisha Pinto RN [address] [place] [address] [email or web address] PHCM Manager Regional 02/26/23 06/10/25 Shreyas Wilson MD [address] [place] [address] Gastroenterology 06/17/24 Doretha Glynn MD [address] [place] [address] Endocrinology 06/17/24 Izzy Hackett [address] [place] [address] [email or web address] PHCM Community Damper Fitter 09/11/24 09/11/24 Radha Pereira RN [address] [place] [address] PHCM Manager RegionalAmbulance Paramedic 06/11/25 documented as of this encounter Additional Source Comments The information contained in this document represents components of the legal health record. It is not the complete legal health record.[facility]
--- OUTSIDE RECORDS SUMMARY | 2025-07-22 08:10 | XMS_ITS | Encounter Summary ---
Author Organization [facility] Address [address] [place] [address] Phone Care Team Providers Care Transmissions Systems Operator Name Role Phone Lester Hicks MD Unavailable [phone] Margaux Montanez MD Unavailable Johann Hanson CNP Primary Care Provider [phone] Khang Kilgore MD Unavailable Luis Ignacio DO Unavailable Flo Esteban MD Unavailable [phone] Neisha Pinto RN Unavailable [email or web address] Shreyas Wilson MD Unavailable Doretha Glynn MD Unavailable [phone] Izzy Hackett Unavailable [email or web address] Radha Pereira RN Unavailable Encounter Details Date Type Department Care Team (Late st Contact Info) Description 12/11/2022 Procedure Pass [facility] Cardiovascular And Interventional Radiology 30 [place], [place] [id number] Social History Tobacco Use Types Packs/Day Years [...] high school, GED, job training, learning the [place] language, technical skills, or developing parenting skills)? [...] Office Visit [facility] Family Medicine [address] [place] [address] [place] [address] Johann Hanson, TIFFANIE [address] [facility], [address] [place] [address] [email or web address] 07/23/2025 8:00 AM EDT Office Visit [facility] Rheumatology [address] [place] [address] Margaux Montanez MD [address] [place] [address], [address] [place] [address] [email or web address] 08/24/2025 1:30 PM EST Office Visit [address] [place] [address] Johann Hanson, SHEEP SORTER [address] [place] [address], [address] [place] [address] [email or web address] 09/10/2025 9:00 AM EST Office Visit [facility] Gastroenterology Clinic 10 [place] [address] Unknown, [place], Shreyas Limon MD [address] [place] [address] 09/21/2025 2:30 PM EST Office Visit [facility] Allergy [facility] Critical Care Medicine 10 [place] [address] Lester Hicks MD [address] [place] [address] 10/13/2025 9:20 AM EST Office Visit [facility]ocrin[facility] 22 [place] [address] Doretha Glynn MD [address] [place] [address] [address] [place] [address] [email or web address] 12/22/2025 8:30 AM EDT Office Visit [address] [place] [address] Johann Hanson, SHEEP SORTER [address] [place] [address], [address] [place] [address] [email or web address] 06/30/2026 8:00 AM EDT Office Visit [facility] 22 [place] [address] Johann Hanson CNP [address] [facility], [address] [place] [address] [email or web address] documented as of this encounter Visit Diagnoses Not on filedocumented in this encounter Additional Health Concerns Infection Onset Date Last Indicated Resolved Time COVID-19 10/07/2023 10/07/2023 10/28/2023 1:21 AM EST Assessment Noted Time PHQ-2 Depression Total Score: 0 05/15/20 1:45 PM EDT documented as of this encounter Care Teams Transmissions Systems Operator Relationship Specialty Start Date End Date Johann Hanson CNP [address] [place] [address], [address] [place] [address] PCP - General Family Medicine 02/11/21 Lester Hicks MD [address] [place] [address] Historical LMR Provider 07/28/17 Margaux Montanez MD [address] [place] [address], [address] [place] [address] [email or web address] Historical LMR Provider 07/28/17 Khang Kilgore MD [address] [place] [address], [address] [place] [address] Insurance Assigned Provider 01/12/24 Luis Ignacio DO [address] [place] [address], [address] [place] [address] Cardiology 06/28/22 06/16/24 Flo Esteban MD [address] [place] [address] [email or web address] Cardiothoracic Surgery 06/28/22 06/16/24 Neisha Pinto RN [address] [place] [address] [email or web address] PHCM Seismic Prospecting Observer Helper 02/26/23 06/10/25 Shreyas Wilson MD [address] [place] [address] Gastroenterology 06/17/24 Doretha Glynn MD [address] [place] [address] Endocrinology 06/17/24 Izzy Hackett [address] [place] [address] [email or web address] PHCM Community Sustainable Development Policy Analyst 09/11/24 09/11/24 Radha Pereira RN [address] [place] [address] PHCM Seismic Prospecting Observer HelperIdentification And Records Commander 06/11/25 documented as of this encounter Additional Source Comments The information contained in this document represents components of the legal health record. It is not the complete legal health record.[facility]
--- OUTSIDE RECORDS SUMMARY | 2025-07-22 08:10 | XMS_ITS | Clinical Summary ---
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 270 tablet 1 2021 Discontinued sertraline (ZOLOFT) 100 MG tablet Take 1 tablet (100 mg total) by mouth daily. 90 tablet 1 021 2021 Discontinued ONDANSETRON ORAL Take by mouth. 06/08 Discontinued SEMAGLUTIDE SUBQ Inject 1.5 mg under the skin every 7 days. 2024 Discontinued budesonide-formot modesta 160-4.5 mcg/actuation inhaler [...] gain. 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 Given active and chronic GI symptoms, I [...] pain and has an [place] [facility] [place]. She is up to date [...] her to contact [place] clinic [place] [facility] [place]. Mouth sores 03/20/2022 Assessment & [...] recent labs from late July 2024 at [facility] quite stable on current regimen. Get labs [...] most recent labs from July 2024 at [facility] quite stable on current regimen. Get labs [...] as of most recent labs from late February 2024 stable on current regimen. Get [...] thyroid hormone. Will communicate about labs through [facility]. Reviewed symptoms of under and over replacement, patient to call if concerns. Follow-up in 6 months Assessment & Plan (04/23/2023 4:46 PM EDT): Establish care with endocrinology this fall as scheduled. For now, continue current dose of levothyroxine as last TSH was improved and she has not symptoms of over- or under-repletion. Assessment & Plan (07/22/2022 11:05 PM EDT): Close follow-up with treating rock splitter exactly as instructed to keep her thyroid function within the optimal range. Assessment & Plan (04/04/2022 11:15 AM EDT): Close follow-up with treating rock splitter exactly as instructed to keep her thyroid [...] therapy and follow-up as scheduled with her rock splitter. Assessment & Plan (08/22/2020 6:54 PM EST): Carefully continue current dose of thyroid replacements therapy and follow-up as scheduled with her rock splitter. Assessment & Plan (05/09/2020 4:52 PM EDT): Carefully continue current dose of thyroid replacements therapy and follow-up as scheduled with her rock splitter. Assessment & Plan (12/18/2019 11:01 AM EDT): [...] TSH on 08/08/2019 was suppressed at 0.05 UT U/mL. I do not know when her [...] [facility] Assessment & Plan (06/28/2022 4:12 PM EDT): Carefully continue regular relaxation, meditation, positive imagery, DNRS etc. Remain on gabapentin as prescribed. Sleep hygiene. Balance rest and activity. Proper hydration. Well-balanced nutritionally diet. Keep up-to-date with age-appropriate screenings and preventive strategies. Follow mindfulness approach strategies as described in book written by Dr Landon Lion catastrophe living Assessment & Plan (12/07/2021 4:44 PM EST): Carefully continue regular relaxation, meditation, positive imagery, DNRS etc. Remain on gabapentin as prescribed. Sleep hygiene. Balance rest and activity. Proper hydration. Well-balanced nutritionally diet. Keep up-to-date with age-appropriate screenings and preventive strategies. Follow mindfulness approach strategies as described in book written by Dr Landon Kabat- [facility] catastrophe living Assessment & Plan (09/08/2021 3:46 [...] 9:53 AM EDT): Daily sun protection. See maintenance mechanic elevators as scheduled at least every 12 months.-Most recent checkup from February 2025 Free of signs of Plaquenil toxicity She is arranging for ophthalmologic checkup in the nearest future. Assessment & Plan (12/18/2024 1:02 PM EDT): Daily sun protection. See maintenance mechanic elevators as scheduled at least every 12 months. She is arranging for ophthalmologic checkup in the nearest future. Assessment & Plan (10/03/2024 7:03 PM EST): Daily sun protection. See maintenance mechanic elevators as scheduled at least every 12 months. She is arranging for ophthalmologic checkup in the nearest future. Assessment & Plan (06/06/2024 12:49 PM EDT): Daily sun protection. See maintenance mechanic elevators as scheduled at least every 12 months. She is arranging for ophthalmologic checkup in the nearest future. Assessment & Plan (03/23/2024 12:09 PM EDT): Daily sun protection. See maintenance mechanic elevators as scheduled at least every 12 months. Assessment & Plan (11/28/2023 9:30 AM EST): Daily sun protection. See maintenance mechanic elevators as scheduled at least every 12 months. Assessment & Plan (05/04/2023 2:51 PM EDT): Daily sun protection. See maintenance mechanic elevators as scheduled at least every 12 months. Assessment & Plan (10/30/2022 3:44 PM EST): Daily sun protection. See maintenance mechanic elevators as scheduled at least every 12 months. Assessment & Plan (06/28/2022 4:12 PM EDT): Daily sun protection. See maintenance mechanic elevators as scheduled at least every 12 months. Assessment & Plan (04/04/2022 11:18 AM EDT): Daily sun protection. See maintenance mechanic elevators as scheduled at least every 12 months. Assessment & Plan (12/07/2021 4:45 PM EST): Daily sun protection. See maintenance mechanic elevators as scheduled. Assessment & Plan (09/08/2021 3:46 PM EST): Daily sun protection. See maintenance mechanic elevators as scheduled. Assessment & Plan (05/25/2021 4:46 PM EDT): Daily sun protection. See maintenance mechanic elevators as scheduled. Assessment & Plan (03/24/2021 11:21 AM EDT): Daily sun protection. See maintenance mechanic elevators as scheduled. Assessment & Plan (01/12/2021 4:02 PM EDT): Daily sun protection. See maintenance mechanic elevators as scheduled. Assessment & Plan (10/24/2020 9:02 PM EST): Daily sun protection. See maintenance mechanic elevators as scheduled. Assessment & Plan (08/22/2020 6:55 PM EST): Daily sun protection. See maintenance mechanic elevators as scheduled. Assessment & Plan (05/09/2020 4:54 PM EDT): Daily sun protection. See maintenance mechanic elevators as scheduled. Assessment & Plan (03/28/2020 12:14 PM EDT): Daily sun protection. See maintenance mechanic elevators as scheduled. Assessment & Plan (02/05/2020 10:49 AM EDT): Daily sun protection. See maintenance mechanic elevators as scheduled. Assessment & Plan (09/11/2019 8:47 AM EST): Daily sun protection. See maintenance mechanic elevators as scheduled. Assessment & Plan (07/08/2019 3:06 PM EDT): Daily sun protection. See maintenance mechanic elevators as scheduled. Assessment & Plan (03/25/2019 10:21 AM EDT): Daily sun protection. See maintenance mechanic elevators as scheduled. Assessment & Plan (12/23/2018 2:36 PM EDT): Daily sun protection. See maintenance mechanic elevators as scheduled. Assessment & Plan (11/19/2018 8:58 PM EST): Daily sun protection. 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 Dry mouth 01/04/2018 Calculus of [...] therapy prior to next visit-standing orders in [facility]. Consider neurology consult regarding headaches and [...] safety and efficacy of therapy-standing orders in [facility]. Assessment & Plan (12/18/2024 10:06 PM EDT): Clinically currently well-controlled except L knee, hands and neck soreness and stiffness particularly in the morning. Get labs monitoring safety and efficacy of therapy today and prior to next visit-standing orders in [facility]. Consider neurology consult regarding headaches and [...] safety and efficacy of therapy-standing orders in [facility]. Assessment & Plan (06/17/2024 11:48 AM EDT): Follow up with Dr. Hicks for Sjogren's, asthma. Continue inhalers. Assessment & Plan (06/06/2024 12:47 PM EDT): Clinically currently well-controlled except L knee, hands and neck soreness and stiffness particularly in the morning. Get labs monitoring safety and efficacy of therapy today and prior to next visit-standing orders in [facility]. Consider neurology consult regarding headaches and [...] safety and efficacy of therapy-standing orders in [facility]. Assessment & Plan (03/14/2024 3:34 PM EDT): Clinically currently well-controlled. Get labs monitoring safety and efficacy of therapy prior to next visit-standing orders in [facility]. Consider neurology consult regarding headaches and [...] therapy prior to next visit-standing orders in [facility]. Consider neurology consult regarding headaches and [...] Smart mouthwash. Get yearly influenza vaccination by mid July 2020. Joint protection, energy conservation. Gentle, [...] at least every 3-4 months-standing orders in [facility]. Gentle, regular exercise routine. Avoid falls, [...] at least every 3 months-standing orders in [facility]. Gentle, regular exercise routine. Avoid falls, [...] at least every 3 months-standing orders in [facility]. Gentle, regular exercise routine. Avoid falls, [...] MD Patient: Herlinda Haskins : 1960 Date: 05/04/2023 Assessment & Plan [...] writing. Provider: Margaux Montanez MD Patient: Herlinda Pittgreggstephen : 1960 Date: 03/20/2022 Assessment & Plan [...] therapy at least every 3 months. 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 [...] mixture of 1% lidocaine and 40 mg Tfcn-Iuvnuj-tqwtse refer for details to procedure note below. [...] mixture of 1% lidocaine and 40 mg Fbeh-Fmfbtu-vtagze refer for details to procedure note below. [...] mixture of 1% lidocaine and 40 mg Gemb-Nrgiwx-tmfacj refer for details to procedure note below. [...] not use with any of her other RECORD PRESSMAN-depressing medications and use very sparingly. She agrees. [...] manifestation of SLE but will ask her material attendant to weigh in. Unfortunately, the wait for [...] one of the aspiration procedures. Improved-followed by server manager and recreation facility attendant. Assessment & Plan (06/17/2024 11:46 AM EDT): S/P repair 2022. Await EGD this week. Assessment & Plan (06/06/2024 12:52 PM EDT): Corrected surgically in November 2022 with subsequent pleural effusions, vasovagal reaction upon one of the aspiration procedures. Improved-followed by server manager and recreation facility attendant. Assessment & Plan (02/28/2022 4:42 PM EDT): [...] Encounters Date Type Department Care Team Description 07/16/2025 Telephone [facility] [address] [place] [id number] Lester Hicks MD Appointment 07/06/2025 Enrollment [facility] - Primary Care [address] [place] [phone] 07/06/2025 Refill [facility] [address] [place] [address] Lester Hicks MD Medication Refill 07/03/[address] [place] [address] Eunice Sanz CNP Lab sample 06/25/2025 7:33 AM EDT - 06/25/2025 11:59 PM EDT Hospital Encounter [facility] [address] [place] [address] Eunice Sanz CNP Discharge Disposition: Home or Self Care 06/24/2025 8:00 AM EDT Office Visit [address] [place] [address] Eunice Sanz CNP Encounter for general adult [...] Needs flu shot; Immunization counseling 06/18/[address] [place] [address] Euncie Sanz CNP Medication Refill 06/05/2025 Refill [facility] [address] [place] [address] [place] [address] Margaux Montanez MD Medication Refill 06/01/2025 Patient Outreach [facility] [address] [place] [address] Nesiha Pinto, RANDI [facility], [facility] transition letter ) 05/25/[address] [place] [address] Eunice Sanz CNP Medication Refill 05/25/2025 Telephone [facility]umatology [address] [place] [address] [place] [address] Margaux Montanez MD 05/22/2025 Telephone [facility] [address] [place] [address] [place] [address] Margaux Montanez MD 05/18/2025 Orders Only [facility] [address] [place] [address] [place] [address] Nancy See MA SLE-Sjogren overlap syndrome; Sjogren's syndrome with lung involvement; Inflammatory arthritis; 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, 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, 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 05/13/2025 Telephone [facility] [address] [place] [address] [place] [address] Sung Marlow, RANDI 05/13/2025 Nurse Triage [facility] [address] [place] [address] Sung Marlow, RN 05/11/2025 Refill [facility] [address] [place] [address] Margaux Montanez MD Medication Refill 05/07/2025 Refill [facility] [address] [place] [address] Margaux Montanez MD Medication Refill 04/29/2025 Patient Outreach [facility] [address] [place] [phone] Neisha Pinto RN Care Coordination ([facility] Follow up outreach ) 04/21/2025 Refill [facility]ology [address] [place] [address] Margaux Montanez MD Medication Refill 06/17/2024 Procedure Pass [facility], [address] [address] from Last 3 Months Immunizations Immunization Administration [...] high school, GED, job training, learning the Tun[place]ian language, technical skills, or developing parenting skills)? [...] Description 07/22/2025 1:30 PM EDT Office Visit [address] [place] [address] Eunice Sanz, HORSES OR MULES TEAMSTER [address] [place] [address], [address] [place] [address] [email or web address] 07/23/2025 8:00 AM EDT Office Visit [facility] Rheumatology [address] [place] [address] Margaux Montanez MD [address] [place] [address], [address] [place] [address] [email or web address] 08/24/2025 1:30 PM EST Office Visit [address] [place] [address] Eunice Sanz, HORSES OR MULES TEAMSTER [address] [place] [address], [address] [place] [address] [email or web address] 09/10/2025 9:00 AM EST Office Visit [facility] [address] [place] [address] Unknown, Unknown, Shreyas Limon MD [address] [place] [phone] 09/21/2025 2:30 PM EST Office Visit [facility] [address] [facility] [place] [address] Lester Hicks MD [address] [place] [phone] 10/13/2025 9:20 AM EST Office Visit [facility] [address] [place] [address] Doretha Glynn MD [address] [place] [phone] [email or web address] 12/22/2025 8:30 AM EDT Office Visit [address] [place] [address] Eunice Sanz, HORSES OR MULES TEAMSTER [address] [place] [address], [address] [place] [address] [email or web address] 06/30/2026 8:00 AM EDT Office Visit [address] [place] [address] Eunice Sanz, HORSES OR MULES TEAMSTER [address] [place] [address], [address] [place] [address] [email or web address] Health Maintenance Due Date Last [...] 06/23/2026 06/23/2025, 10/29/19 24 MAMMOGRAM 06/25/2027 06/25/2025, /, 07/27/2021, Additional history exists SCREENING FOR DIABETES [...] syndrome with lung involvement Inflammatory arthritis 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, chcf, current use DOUBLE STRANDED DNA ANTIBODIES Routine 05/14/2025 3:12 PM EDT SLE-Sjogren overlap syndrome Sjogren's syndrome with lung involvement Inflammatory arthritis 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, 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, 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 CPK (CREATINE KINASE) Routine 05/14/2025 3:12 PM EDT SLE-Sjogren overlap syndrome Sjogren's syndrome with lung involvement Inflammatory arthritis 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, 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, 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 COMPLEMENT C4 Routine 05/14/2025 3:12 PM EDT SLE-Sjogren overlap syndrome Sjogren's syndrome with lung involvement Inflammatory arthritis 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, chcf, current use COMPLEMENT C3 Routine 05/14/2025 3:12 PM EDT SLE-Sjogren overlap syndrome Sjogren's syndrome with lung involvement Inflammatory arthritis 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, chcf, current use CBC AND DIFFERENTIAL Routine 05/14/2025 3:12 PM EDT SLE-Sjogren overlap syndrome Sjogren's syndrome with lung involvement Inflammatory arthritis 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, chcf, current use SEDIMENTATION RATE (ESR) Routine 05/14/2025 3:12 PM EDT SLE-Sjogren overlap syndrome Sjogren's syndrome with lung involvement Inflammatory arthritis 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, chcf, current use C-REACTIVE PROTEIN Routine 05/14/2025 3: 12 PM EDT SLE-Sjogren overlap syndrome Sjogren's syndrome with lung involvement Inflammatory arthritis 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 Eunice Sanz HORSES OR MULES TEAMSTER IMG MG EXAMS Final Res ult * ECG 12-LEAD (06/24/2025 8:21 AM EDT) Narrative EXTERNAL NON-INTERFACED REF LAB - 06/24/2025 8:21 AM EDT Type of EKG: Standard. Global (24677). Notes Sinus rhythm. QTc 450 ms, up from 433 in 2022. Slight left precordial repolarization disturbance. No ST/T wave changes. Echo ordered. Eunice Sanz [facility] ECG ORDERABLES Edited Re sult - Final EXTERNAL NON-INTERFACED REF LAB * Pap Test (06/24/2025 12:00 AM EDT) 06/24/2025 06/25/2025 9:5 5 AM EDT Narrative SEE NARRATIVE - 07/01/2025 12:30 [place] [address] Channel Layer: Dilan Sams MD [facility] Cytology Report FINAL DIAGNOSIS A. PAP SMEAR (THIN PREP) CE: SPECIMEN ADEQUACY: Unsatisfactory for evaluation. Specimen processed and examined, but unsatisfactory due to insufficient squamous component. INTERPRETATION: UNSATISFACTORY FOR EVALUATION. A diagnosis cannot be rendered on an unsatisfactory specimen. This specimen was analyzed by the automated ThinPrep Imaging System ([employer] and manually rescreened by a chemical reclamation equipment operator and/or pathologist. Electronically Signed Out By: MD [...] by real-time polymerase chain reaction (PCR) at [facility], [address] [place] [address] using the FDA-approved Seeking Alpha Onclarity HPV Assay with extended genotyping. Uses of the assay in scenarios other than those approved by the FDA should be considered off-label use. The accuracy and precision of this test for all other off-label specimen sources has been verified in the Cytopathology Laboratory of the [facility] and has not been cleared or approved [...] : 1960 (Age: 65) Sex: F Institution: [facility] Location: [facility] Date of Collection: 06/24/2025 Date of Reported: 07/01/2025 12:30 Results to: Eunice GARCIA us Eunice Sanz CNP CYTOLOGY ORDERABLES Final Result SEE NARRATIVE * Total protein creatinine ratio, random urine (05/14/2025 3:12 PM EDT) Urine (Urine) us Margaux Montanez MD URINE ORDERABLES Final R esult Performing Organization Address [facility] de Phone Number EXTERNAL NON-INTERFACED REF LAB * Double stranded DNA antibodies (05/14/2025 3:12 PM EDT) Blood Margaux Montanez MD LAB BLOOD ORDERABLES Fin al Result Performing Organization Address [facility] de Phone Number EXTERNAL NON-INTERFACED REF LAB * CPK (creatine kinase) (05/14/2025 3:12 PM EDT) Blood Margaux Montanez MD LAB BLOOD ORDERABLES Fin al Result Performing Organization Address [facility] Phone Number EXTERNAL NON-INTERFACED REF LAB * Complement C4 (05/14/2025 3:12 PM EDT) Blood Margaux Montanez MD LAB BLOOD ORDERABLES Fin al Result Performing Organization Address [facility] de Phone Number EXTERNAL NON-INTERFACED REF LAB * Complement C3 (05/14/2025 3:12 PM EDT) Blood Margaux Montanez MD LAB BLOOD ORDERABLES Fin al Result Performing Organization Address [facility] de Phone Number EXTERNAL NON-INTERFACED REF LAB * CBC and differential (05/14/2025 3:12 PM EDT) Blood Margaux Montanez MD LAB BLOOD ORDERABLES Fin al Result Performing Organization Address [facility] de Phone Number EXTERNAL NON-INTERFACED REF LAB * Sedimentation rate (ESR) (05/14/2025 3:12 PM EDT) Blood Margaux Montanez MD LAB BLOOD ORDERABLES Fin al Result Performing Organization Address [facility] de Phone Number EXTERNAL NON-INTERFACED REF LAB * C-Reactive Protein (05/14/2025 3:12 PM EDT) Blood Margaux Montanez MD LAB BLOOD ORDERABLES Fin al Result Performing Organization Address [facility] de Phone Number EXTERNAL NON-INTERFACED REF LAB * Comprehensive metabolic panel (05/14/2025 3:12 PM EDT) Blood Margaux Montanez MD LAB BLOOD ORDERABLES Fin al Result Performing Organization Address [facility] de Phone Number EXTERNAL NON-INTERFACED REF LAB * Basic metabolic panel (03/12/2025 6:10 AM EDT) SODIUM 142 136 - 145 mmol/L [facility] POTASSIUM 3.4 3.4 - 5.1 mmol/L [facility] CHLORIDE 103 98 - 107 mmol/L [facility] CO2 31 22 - 31 mmol/L [facility] BUN 11 6 - 23 mg/dL [facility] CREATININE 0.80 0.50 - 1.20 mg/dL [facility] GLUCOSE 84 70 - 100 mg/dL [facility] CALCIUM 9.7 8.8 - 10.7 mg/dL [facility] EGFR 83 >59 mL/min/1.7 3m2 [facility] Comment:Estimated glomerular filtration rate calculated using the CKD-EPI refit equation. ANION GAP 8 7 - 17 mmol/L [facility] 03/12/2025 6:10 AM EDT 03/12/2025 6:48 AM EDT Lj Moscoso MD, MPH LAB BLOOD ORDERABLES Final Result [facility] [address] [facility] [place] [address] * TSH (12/10/2024 4:12 PM EST) Blood us Doretha Glynn MD LAB BLOOD ORDERABLES Final Res ult Performing Organization Address City/[facility] Co de Phone Number EXTERNAL NON-INTERFACED REF LAB * ENDOSCOPY, COLON (06/20/2024 9:51 AM EDT) Narrative Transcriptions Shreyas Murphy MD - 06/20/2024 9:51 AM EDT [facility] Patient Name: Herlinda Saleem Attending MD:: SHREYAS MURPHY MD, Procedure Date: 06/20/2024 9:51 AM Date of : 1960 Age: 64 Admit Type: Outpatient Gender: Female Room: [place] [address] Referring MD: EUNICE SANZ Exam Type: Colonoscopy [...] 9:51 AM Procedure Code(s): --- Professional --- 10681, Colonoscopy, flexible; with biopsy, single or multiple --- Technical --- 11782, Colonoscopy, flexible; with biopsy, single or multiple Diagnosis Code(s): --- Professional --- K52.9, Noninfective gastroenteritis and colitis, unspecified --- Technical --- K52.9, Noninfective gastroenteritis and colitis, unspecified CPT copyright 2021 [employer]. All rights reserved. The codes documented in this report are preliminary and upon lath tier reviewmay be revised to meet current compliance requirements. Procedure Date: 06/20/2024 9:51:53 AM [address], [place] [id number] us Eunice Sanz HORSES OR MULES TEAMSTER GI PROCEDURE ORDERABLES F inal Result * (ABNORMAL) Lipid panel (12/08/2020 4:37 PM EST) [facility] HDL 60 mg/dL [facility] Comment: Interpretation <40 mg/dL: Low HDL cholesterol (major risk factor for CHD) Greater than or equal to 60 mg/dL: High HDL cholesterol ( negative risk factor for CHD) HDL - cholesterol is affected by a number of factors, e.g. smoking, excerise, hormones, sex and age. CHOLESTEROL 192 0 - 240 mg/dL [facility] TRIGLYCERIDES 139 30 - 160 mg/dL [facility] LDL 104 50 - 129 mg/dL [facility] Comment: LDL levels in terms of risk for coronary heart disease: <100 mg/dL: Optimal 100-129 mg/dL: Near or above optimal 130-159 mg/dL: Borderline high 160-189 mg/dL: High >190 mg/dL: Very High CARDIAC RISK RATIO 3.2(L) 3.3 - 4.4 [facility] Blood 12/08/2020 4:37 PM EST 12/08/2020 4:45 PM EST Mamta Whitney DO LAB BLOOD ORDERABLES Final Result [address] [address] * Fecal immunochemical test x1 (FIT) (04/15/2020 8:00 AM EDT) [facility] Immuno Fecal Occult Negative [facility] Stool (Stool) 04/15/2020 8:0 0 AM EDT 04/15/2020 4:23 PM EDT Alise Winkler PA-C BODY FLUIDS AND STOOLS ORDERABL ES Final Result Performing Organization Address City/[facility] Co de Phone Number [address] [address] * Outside Hepatitis C Virus Screening (07/14/2014) Hepatitis C Screening - External Neg Historical Provider LAB BLOOD ORDERABLES Ibis l Result * OUTSIDE HIV TEST (07/14/2014) HIV - External Neg Historical Provider LAB BLOOD ORDERABLES Ibis l Result from Last 3 Months or Most Recently Relevant to Health Maintenance Insurance [employer] Member Subscriber Plan / Payer ( fective 2023-Present) Name:Herlinda Haskins Relation to Subscriber:Self Name:Herlinda Haskins Payer ID:[id number] (NAIC) Type:PPO Address: [address] [employer] [facility] BENEFITS ADMINISTRATORS [facility] [place] [address] Advance Directives For more information, please contact: [phone] (9AM - 5PM [facility], Sunday-Sunday) Documents on File Type Date Recorded Patient Headhunter Expl anation Healthcare Proxy 11/21/2022 3:55 PM [...] Code Status Confirmed With: Patient Care Teams Electric Motorman Relationship Specialty Start Date End Date CarmenEunice evans TIFFANIE [address] [place] [address], [address] [place] [address] PCP - General Family Medicine 02/11/21 Lestre Hicks MD [address] [place] [address] [email or web address] Historical LMR Provider 07/28/17 Margaux Montanez MD [address] [place] [address], [address] [place] [address] Historical LMR Provider 07/28/17 Khang Kilgore MD [address] [place] [address], [address] [place] [address] Insurance Assigned Provider 01/12/24 Shreyas Murphy MD [address] [place] [address] Gastroenterology 06/17/24 Doretha Glynn MD [address] [place] [address] Endocrinology 06/17/24 Radha Pereira RN [address] [place] [address] PHC Porcelain Enamel InstallerState Fire Marshal 06/11/25 Additional Source Comments The information contained in this document represents components of the legal health record. It is not the complete legal health record.[facility]
--- OUTSIDE RECORDS SUMMARY | 2025-07-22 08:10 | XMS_ITS | Encounter Summary ---
Author Organization [facility] Address [address] [place] [address] Phone Care Team Providers Care Rubber Curer Name Role Phone Lester Hicks MD Unavailable [phone] Margaux Montanez MD Unavailable [phone] Johann Hanson CNP Primary Care Provider [phone] Khang Kilgore MD Unavailable [phone] Neisha Pinto RN Unavailable [email or web address] Shreyas Wilson MD Unavailable [phone] Doretha Glynn MD Unavailable [phone] Izzy Hackett Unavailable [email or web address] Radha Pereira RN Unavailable [phone] Encounter Details Date Type Department Care Team (Late st Contact Info) Description 06/20/2024 Procedure Pass [facility] Endoscopy Admitting Dept Virtual Department [address] [place], [place] [id number] Social History Tobacco Use Types Packs/Day Years [...] high school, GED, job training, learning the Ethiopian language, technical skills, or developing parenting skills)? [...] Description 07/22/2025 1:30 PM EDT Office Visit [address] [place] [address] Johann Hanson, HAND RUG BRAIDER [address] [place] [address], [address] [place] [address] [email or web address] 07/23/2025 8:00 AM EDT Office Visit [facility] Rheumatology [address] [place] [address] [place] [address] Margaux Montanez MD [address] [place] [address], [address] [place] [address] [email or web address] 08/24/2025 1:30 PM EST Office Visit [address] [address] Johann Hanson, HAND RUG BRAIDER [address] [place] [address], [address] [place] [address] [email or web address] 09/10/2025 9:00 AM EST Office Visit [facility] Gastroenterology Clinic 10 [place] [address] Unknown, Unknown, Shreyas Limon MD [address] [address] 09/21/2025 2:30 PM EST Office Visit [facility] Pulmonary, Allergy and Critical Care Medicine 10 [place] [address] Lester Hicks MD [address] [place] [address] [email or web address] 10/13/2025 9:20 AM EST Office Visit [facility] Endocrinology [address] [place] [address] [place] [address] Doretha Glynn MD [address] [place] [address] [email or web address] 12/22/2025 8:30 AM EDT Office Visit [address] [place] [address] Johann Hanson CNP [address] [place] [address], [address] [place] [address] [email or web address] 06/30/2026 8:00 AM EDT Office Visit [address] [place] [address] Johann Hanson CNP [address] [place] [address], [address] [address] [email or web address] documented as of this encounter Visit Diagnoses Not on filedocumented in this encounter Additional Health Concerns Assessment Noted Time PHQ-9 Depression Total Score: 4 10/29/19 24 1:54 PM EST PHQ-2 Depression Total Score: 0 06/10/20 9:22 AM EDT documented as of this encounter Care Teams Rubber Curer Relationship Specialty Start Date End Date Johann Hanson CNP [address] [place] [address], [address] [address] PCP - General Family Medicine 02/11/21 Lester Hicks MD [address] [place] [address] [email or web address] Historical LMR Provider 07/28/17 Margaux Montanez MD [address] [place] [address], [address] [place] [address] [email or web address] Historical LMR Provider 07/28/17 Khang Kilgore MD [address] [place] [address], [address] [place] [address] Insurance Assigned Provider 01/12/24 Neisha Pinto RN [address] [place] [address], [address] [place] [address] [email or web address] PHCM Gypsum Roofer 02/26/23 06/10/25 Shreyas Wilson MD [address] [place] [address] Gastroenterology 06/17/24 Doretha Glynn MD [address] [place] [address] [address] [place] [address] Endocrinology 06/17/24 Izzy Hackett [address] [place] [address] [email or web address] PHCM Community Green Coffee Blender 09/11/24 09/11/24 Radha Pereira, RN [address] [place] [address] [email or web address] PHCM Gypsum RooferSecond Grade Teacher 06/11/25 documented as of this encounter Additional Source Comments The information contained in this document represents components of the legal health record. It is not the complete legal health record.[facility]
--- OUTSIDE RECORDS SUMMARY | 2025-07-22 08:11 | XMS_ITS | Encounter Summary ---
Author Organization [facility] Address [address] [place] [address] [place] [address] Phone Care Team Providers Care Fraud Prevention Analyst Name Role Phone Lester Hicks MD Unavailable [phone] Margaux Montanez MD Unavailable Johann Hanson CNP Primary Care Provider [phone] Khang Kilgore MD Unavailable Luis Ignacio DO Unavailable Flo Esteban MD Unavailable [phone] Dilan Rowland MD Unavailable [phone] Corby Prado MD Unavailable [phone] Neisha Pinto RN Unavailable [email or web address] Shreyas Wilson MD Unavailable [phone] Doretha Glynn MD Unavailable [phone] Izzy Hackett Unavailable [email or web address] Radha Pereira RN Unavailable Encounter Details Date Type Department Care Team (Late st Contact Info) Description 02/10/2022 Procedure Pass Non-Invasive Cardiology [address] [place], [place] [id number] Social History Tobacco Use Types Packs/Day Years [...] EDT Office Visit [facility] [place] [facility] [address] [place] [address] [place] [address] Johann Hanson CNP 22 [facility], [address] [place] [address] [email or web address] 07/23/2025 8:00 AM EDT Office Visit [facility] Rheumatology [address] [place] [address] Margaux Montanez MD 22 [facility], [address] [place] [address] [email or web address] 08/24/2025 1:30 PM EST Office Visit [facility] [address] [place] [address] Johann Hanson, TELEVISION NEWS PHOTOGRAPHER [address] [place] [address], [address] [place] [address] [email or web address] 09/10/2025 9:00 AM EST Office Visit [facility] Gastroenterology Clinic 10 [place] [address] Unknown, [place], Shreyas Limon MD [address] [place] [address] 09/21/2025 2:30 PM EST Office Visit [facility] Pulmonary, Allergy and Critical Care Medicine 10 [place] [address] Lester Hicks MD [address] [place] [address] 10/13/2025 9:20 AM EST Office Visit [facility] [address] [place] [address] Doretha Glynn MD [address] [place] [address] [email or web address] 12/22/2025 8:30 AM EDT Office Visit [facility] [address] [place] [address] Johann Hanson, TELEVISION NEWS PHOTOGRAPHER [address] [place] [address], [address] [place] [address] [email or web address] 06/30/2026 8:00 AM EDT Office Visit [address] [place] [address] Johann Hanson CNP 22 [facility], [address] [place] [address] [email or web address] documented as of this encounter [...] documented as of this encounter Care Teams Fraud Prevention Analyst Relationship Specialty Start Date End Date Johann Hanson CNP [address] [place] [address], [address] [place] [address] PCP - General Family Medicine 02/11/21 Lester Hicks MD [address] [place] [address] Historical LMR Provider 07/28/17 Margaux Montanez MD 22 [facility], [address] [place] [address] [email or web address] Historical LMR Provider 07/28/17 Khang Kilgore MD [address] [place] [address], [address] [place] [address] [email or web address] Insurance Assigned Provider 01/12/24 Luis Ignacio DO [address] [place] [address], [address] [place] [address] Cardiology 06/28/22 06/16/24 Flo Esteban MD [address] [place] [address] [email or web address] Cardiothoracic Surgery 06/28/22 06/16/24 Dilan Rowland MD [address] [place] [address], [address] [place] [address] [email or web address] Insurance Assigned Provider 07/15/22 08/13/22 Corby Prado MD [address] [place] [address], [address] [place] [address] Insurance Assigned Provider 08/13/22 09/16/22 Neisha Pinto, RANDI [address] [place] [address], [address] [place] [address] [email or web address] Geomorphologist 02/26/23 06/10/25 Shreyas Wilson MD [address] [place] [address] [email or web address] Gastroenterology 06/17/24 Doretha Glynn MD [address] [address] Endocrinology 06/17/24 Izzy Hackett [address] [place] [address] [email or web address] PHCM Community Underwater Roboticist 09/11/24 09/11/24 Radha Pereira, RN [address] [place] [address] [email or web address] PHCM GeomorphologistImpression Printer 06/11/25 documented as of this encounter Additional Source Comments The information contained in this document represents components of the legal health record. It is not the complete legal health record.[facility]
--- OUTSIDE RECORDS SUMMARY | 2025-07-22 08:11 | XMS_ITS | Encounter Summary ---
Author Organization [facility] Address [address] [place] [address] [place] [address] Phone Care Team Providers Care Crown Perforator Operator Name Role Phone Tricia Balderas DO Unavailable Lester Hicks MD Unavailable [phone] Margaux Montanez MD Unavailable Demario Floyd MD Unavailable Pam Benson MD Unavailable Adithya Campos TROUBLE SHOOTER Unavailable Mamta Whitney DO Primary Care Provider [phone] Mamta Whitney DO Primary Care Provider [phone] Johann Hanson TROUBLE SHOOTER Primary Care Provider [phone] Khang Kilgore MD Unavailable Luis Ignacio DO Unavailable Flo Esteban MD Unavailable [phone] Dilan Rowland MD Unavailable Corby Prado MD Unavailable [phone] Neisha Pinto RN Unavailable [email or web address] Shreyas Wilson MD Unavailable Doretha Glynn MD Unavailable [phone] Izzy Hackett Unavailable sami Radha Pereira RN Unavailable Encounter Details Date Type Department Care Team (Latest Contact Info) Description 04/14/2020 Transcribe Orders [facility] Laboratory [address] [place] [address] Alise Winkler PA-C [address], [address] [place] [address] Fatigue, unspecified type (Primary Dx); Diarrhea, unspecified [...] 07/22/2025 1:30 PM EDT Office Visit [facility] Medicine [address] [place] [address] [place] [address] Johann Hanson, TIFFANIE [address] [place] [address], [address] [place] [address] [email or web address] 07/23/2025 8:00 AM EDT Office Visit [facility] Rheumatology [address] [place] [address] [place] [address] Margaux Montanez MD [address] [place] [address], [address] [place] [address] [email or web address] 08/24/2025 1:30 PM EST Office Visit [address] [place] [address] Johann Hanson CNP [address] [place] [address], [address] [place] [address] [email or web address] 09/10/2025 9:00 AM EST Office Visit [facility] Gastroenterology Clinic 10 [place] [address] Unknown, [place], Shreyas Limon MD [address] [address] 09/21/2025 2:30 PM EST Office Visit [facility] Pulmonary, Allergy and Critical Care Medicine 10 [place] [address] Lester Hicks MD [address] [place] [address] 10/13/2025 9:20 AM EST Office Visit [facility]inology [address] [place] [address] Doretha Glynn MD [address] [place] [address] [email or web address] 12/22/2025 8:30 AM EDT Office Visit [address] [place] [address] Johann Hanson, TIFFANIE [address] [facility], [address] [place] [address] [email or web address] 06/30/2026 8:00 AM EDT Office Visit [address] [place] [address] Johann Hanson, TROUBLE SHOOTER [address] [facility], [address] [place] [address] [email or web address] documented as of this encounter Results * Giardia antigen screen (04/15/2020 4:18 PM EDT) ST GIARDIA ANTIGEN Negative Negative [facility] DPT OF LAB MED AND PAT+ Comment: (NOTE) ADDITIONAL INFORMATION Test Performed by Enzyme Immunoassay. Stool (Stool) 04/15/2020 4:1 8 PM EDT 04/15/2020 4:24 PM EDT Alise Winkler PA-C MICROBIOLOGY - GENERAL ORDERABL ES Final Result [facility] DPT OF LAB MED AND PAT+ [address] [place] [address] * Ova and parasites, stool (04/15/2020 8:00 AM EDT) Pathologist [facility] Special Requests None 04/15/2020 4:19 PM EDT [facility] DIRECT EXAM NO PARASITES FOUND BY DIRECT OR CONCENTRATION METHODS 04/26/2020 10:47 AM EDT [facility] DIRECT EXAM No parasites found by Trichrome Stain 04/26/2020 10:47 AM EDT [facility] Stool (Stool) 04/15/2020 8:0 0 AM EDT 04/15/2020 4:24 PM EDT Alise Winkler PA-C MICROBIOLOGY - GENERAL ORDERABL ES Final Result [facility] [address] [place] [address] * Fecal immunochemical test x1 (FIT) (04/15/2020 8:00 AM EDT) Pathologist [facility] Immuno Fecal Occult Negative [facility] Stool (Stool) 04/15/2020 8:0 0 AM EDT 04/15/2020 4:23 PM EDT Alise Winkler PA-C BODY FLUIDS AND STOOLS ORDERABL ES Final Result Performing Organization Address [facility] Co de Phone Number [address] [address] * Fecal leukocyte examination (04/15/2020 8:00 AM EDT) Special Requests None 04/15/2020 4:19 PM EDT [facility] GRAM STAIN No WBC seen on smear. 04/16/2020 8:47 AM EDT [facility] Stool (Stool) 04/15/2020 8:0 0 AM EDT 04/15/2020 4:24 PM EDT Alise Winkler PA-C MICROBIOLOGY - GENERAL ORDERABL ES Final Result Performing Organization Address [facility] Co de Phone Number [address] [address] * Stool culture (04/15/2020 8:00 AM EDT) Special Requests None 04/15/2020 4:19 PM EDT [facility] Stool Culture NO SALMONELLA, SHIGELLA OR CAMPYLOBACTER ISOLATED 04/16/2020 8:09 AM EDT [facility] Stool (Stool) 04/15/2020 8:0 0 AM EDT 04/15/2020 4:24 PM EDT Alise Winkler PA-C MICROBIOLOGY - GENERAL ORDERABL ES Final Result Performing Organization Address [facility] Co de Phone Number [address] [address] * Immunoglobulin A (04/14/2020 12:05 PM EDT) IgA 84 70 - 400 mg/dL [facility] Blood 04/14/2020 12:0 5 PM EDT 04/14/2020 12:23 PM EDT us Alise MAYA-Marion LAB BLOOD ORDERABLES Final Resu lt [facility] [address] [place] [address] * Tissue transglutaminase IgA (04/14/2020 12:05 PM EDT) TTG IGA ANTIBODY <1.2 <4.0 (Negative) U/mL [facility] Blood 04/14/2020 12:0 5 PM EDT 04/14/2020 12:22 PM EDT us Alise Winkler PA-C LAB BLOOD ORDERABLES Final Resu lt [facility] LAB MED/[facility] [address] [place] [address] documented in this encounter Visit Diagnoses Diagnosis [...] documented as of this encounter Care Teams Crown Perforator Operator Relationship Specialty Start Date End Date Mamta Whitney DO [address] [place] [address] [email or web address] PCP - General Family Medicine 04/12/20 02/08/21 Mamta Whitney DO [address] [place] [address] [email or web address] PCP - General Family Medicine 02/10/21 02/10/21 Johann Hanson CNP [address] [facility], [address] [place] [address] [email or web address] PCP - General Family Medicine 02/11/21 Tricia Balderas DO [address] [place] [address] [email or web address] Historical LMR Provider 07/28/17 10/15/21 Lester Hicks MD [address] [place] [address] [email or web address] Historical LMR Provider 07/28/17 Margaux Montanez MD [address] [facility], [address] [place] [address] [email or web address] Historical LMR Provider 07/28/17 Demario Floyd MD [address] [place] [address] [email or web address] Historical LMR Provider 07/28/17 2 Pam Benson MD [address] [facility], [address] [place] [address] Historical LMR Provider 07/28/17 Adithya Campos TROUBLE SHOOTER [address] [place] [address], [address] [place] [address] [email or web address] Historical LMR Provider 07/28/17 12/25/21 Khang Kilgore MD [address] [place] [address], [address] [place] [address] [email or web address] Insurance Assigned Provider 01/12/24 Luis Ignacio DO [address] [place] [address], [address] [place] [address] [email or web address] Cardiology 06/28/22 06/16/24 Flo Esteban MD [address] [place] [address] [email or web address] Cardiothoracic Surgery 06/28/22 06/16/24 Dilan Rowland MD [address] [place] [address], [address] [place] [address] [email or web address] Insurance Assigned Provider 07/15/22 08/13/22 Corby Prado MD [address] [place] [address], [address] [place] [address] Insurance Assigned Provider 08/13/22 09/16/22 Neisha Pinto, RANDI [address] [place] [address], [address] [place] [address] [email or web address] [facility] Underwriting Support Specialist 02/26/23 06/10/25 Shreyas Wilson MD [address] [place] [address] [email or web address] Gastroenterology 06/17/24 Doretha Glynn MD [address] [place] [address] Endocrinology 06/17/24 Izzy Hackett [address] [place] [address] [email or web address] PHCM Community Director Skills 09/11/24 09/11/24 Radha Pereira, RANDI [address] [place] [address] [email or web address] PHCM Underwriting Support SpecialistFlame Burner 06/11/25 documented as of this encounter Additional Source Comments The information contained in this document represents components of the legal health record. It is not the complete legal health record.[facility]
--- OUTSIDE RECORDS SUMMARY | 2025-07-22 08:11 | XMS_ITS | Encounter Summary ---
Author Organization [facility] Address [address] [place] [address] [place] [address] Phone Care Team Providers Care Promotions Intern Name Role Phone Tricia Balderas DO Unavailable Lester Hicks MD Unavailable [phone] Margaux Montanez MD Unavailable Demario Floyd MD Unavailable Pam Benson MD Unavailable [phone] Adithya Campos SHED WORKERS SUPERVISOR Unavailable Beatriz Donaldson REGULATORY ASSOCIATE Unavailable Beatriz Donaldson REGULATORY ASSOCIATE Primary Care Provider Mamta Whitney DO Primary Care Provider [phone] Mamta Whitney DO Primary Care Provider [phone] Johann Hanson SHED WORKERS SUPERVISOR Primary Care Provider [phone] Khang Kilgore MD Unavailable Luis Ignacio DO Unavailable Flo Esteban MD Unavailable [phone] Dilan Rowland MD Unavailable [phone] Corby Prado MD Unavailable [phone] Neisha Pinto RN Unavailable [email or web address] Shreyas Wilson MD Unavailable Doretha Glynn MD Unavailable [phone] Izzy Hackett Unavailable [email or web address] Radha Pereira RN Unavailable [phone] Encounter Details Date Type Department Care Team (Late st Contact Info) Description 06/21/2018 Transcribe Orders [facility] Specimen Processing [address] [place] [address] Beatriz Donaldson, REGULATORY ASSOCIATE [address] [place], [place] [phone] Routine general medical examination at a health care facility (Primary Dx); Sjogren's syndrome with lung involvement; Inflammatory arthritis; 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, correction, current use Social History Tobacco Use Types [...] 1:30 PM EDT Office Visit [facility] Family Medicine [address] [place] [address] [place] [address] Johann Hanson, SHED WORKERS SUPERVISOR [facility] [place] [address] [email or web address] 07/23/2025 8:00 AM EDT Office Visit [facility] Rheumatology [address] [place] [address] [place] [address] Margaux Montanez MD [address] [place] [address], [address] [place] [address] [email or web address] 08/24/2025 1:30 PM EST Office Visit [address] [place] [address] Johann Hanson, SHED WORKERS SUPERVISOR [address] [place] [address], [address] [place] [address] [email or web address] 09/10/2025 9:00 AM EST Office Visit [facility] Gastroenterology Clinic [address] [place] [address] Unknown, Unknown, Shreyas Limon MD [address] [place] [address] 09/21/2025 2:30 PM EST Office Visit [facility] Pulmonary, Allergy and Critical Care Medicine 10 [place] [address] Lester Hicks MD [address] [place] [address] 10/13/2025 9:20 AM EST Office Visit [facility] Endocrinology [address] [place] [address] Doretha Glynn MD [address] [place] [address] [address] [place] [address] [email or web address] 12/22/2025 8:30 AM EDT Office Visit [address] [place] [address] Johann Hanson, SHED WORKERS SUPERVISOR [address] [place] [address], [address] [place] [address] [email or web address] 06/30/2026 8:00 AM EDT Office Visit [facility] [address] [place] [address] Johann Hanson, TIFFANIE [facility] [place] [address] [email or web address] documented as of this encounter Procedures Procedure Name Priority Date/Time Associated Diagnosis Comments IRON Routine 06/21/2018 4:35 PM EDT Routine general medical examination at a health care facility COMPREHENSIVE METABOLIC PANEL Routine 06/21/2018 4:35 PM EDT Sjogren's syndrome with lung involvement Inflammatory arthritis 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, terminal supervisor, current use SEDIMENTATION RATE (ESR) Routine 06/21/2018 4:35 PM EDT Sjogren's syndrome with lung involvement Inflammatory arthritis 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, terminal supervisor, current use CBC AND DIFFERENTIAL Routine 06/21/2018 4:35 PM EDT Sjogren's syndrome with lung involvement Inflammatory arthritis 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, terminal supervisor, current use COMPLEMENT C3 Routine 06/21/2018 4:35 PM EDT Sjogren's syndrome with lung involvement Inflammatory arthritis 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, terminal supervisor, current use COMPLEMENT C4 Routine 06/21/2018 4:35 PM EDT Sjogren's syndrome with lung involvement Inflammatory arthritis 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, correction, current use C-REACTIVE PROTEIN Routine 06/21/2018 4 :35 PM EDT Sjogren's syndrome with lung involvement Inflammatory arthritis 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, terminal supervisor, current use TSH Routine 06/21/2018 4:35 PM EDT Routine general medical examination at a health care facility FERRITIN Routine 06/21/2018 4:35 PM EDT Routine general medical examination at a health care facility documented in this encounter Results * Complement C4 (06/21/2018 4:35 PM EDT) COMPLEMENT C4 23 14 - 40 mg/dL [facility] DPT OF LAB MED AND PAT+ Blood 06/21/2018 4:35 PM EDT 06/22/2018 1:28 PM EDT us Margaux Montanez MD LAB BLOOD ORDERABLES Fin al Result [facility] DPT OF LAB MED AND PAT+ [address] [place] [address] * Complement C3 (06/21/2018 4:35 PM EDT) COMPLEMENT C3 116 75 - 175 mg/dL [facility] DPT OF LAB MED AND PAT+ Blood 06/21/2018 4:35 PM EDT 06/22/2018 1:28 PM EDT us Margaux Montanez MD LAB BLOOD ORDERABLES Fin al Result [facility] DPT OF LAB MED AND PAT+ [address] [place] [address] * Sedimentation rate (ESR) (06/21/2018 4:35 PM EDT) ESR 4 0 - 30 mm/h [facility] Blood 06/21/2018 4:35 PM EDT 06/21/2018 5:56 PM EDT us Margaux Montanez MD LAB BLOOD ORDERABLES Fin al Result [facility] [address] [place] [address] * C-Reactive Protein (06/21/2018 4:35 PM EDT) C REACTIVE PROTEIN 0.5 0.0 - 4.0 mg/L [facility] Blood 06/21/2018 4:35 PM EDT 06/21/2018 5:56 PM EDT us Margaux Montanez MD LAB BLOOD ORDERABLES Leander mccall Result [address] [address] * Comprehensive metabolic panel (06/21/2018 4:35 PM EDT) SODIUM 144 133 - 146 mmol/L [facility] POTASSIUM 3.6 3.3 - 5.1 mmol/L [facility] CHLORIDE 100 96 - 108 mmol/L [facility] CO2 30 21 - 35 mmol/L [facility] BUN 13 6 - 19 mg/dL [facility] CREATININE 0.70 0.5 - 1.5 mg/dL [facility] GLUCOSE 89 70 - 99 mg/dL [facility] ALBUMIN 4.3 3.9 - 4.8 g/dL [facility] TOTAL PROTEIN 6.7 6.5 - 8.0 g/dL [facility] CALCIUM 9.9 8.4 - 10.3 mg/dL [facility] ALKALINE PHOSPHATASE 59 39 - 117 U/L [facility] TOTAL BILIRUBIN 0.2 0.0 - 1.2 mg/dL [facility] AST 22 0 - 37 U/L [facility] ALT 16 0 - 40 U/L [facility] GLOBULIN 2.4 1 - 4.8 g/dL [facility] EGFR 97 >59 mL/min/1.7 3m2 [facility] Comment:If patient is black, multiply result by 1.159. Estimated glomerular filtration rate calculated using the CKD-EPI equation. ANION GAP 18 10 - 20 mmol/L [facility] Blood 06/21/2018 4:35 PM EDT 06/21/2018 5:56 PM EDT us Margaux Montanez MD LAB BLOOD ORDERABLES Leander mccall Result Performing Organization Address City/[facility]/ZIP Co de Phone Number [address] [address] * CBC and differential (06/21/2018 4:35 PM EDT) WBC 5.00 3.40 - 11.20 K/uL [facility] RBC 4.23 3.80 - 4.80 M/uL [facility] HGB 13.2 12.0 - 15.0 g/dL [facility] HCT 39.5 36.0 - 46.0 % [facility] PLT 229 130 - 400 K/uL [facility] MCV 93.4 79.0 - 98.0 fL [facility] MCH 31.2 27.0 - 34.8 pg [facility] MCHC 33.4 31.5 - 36.0 g/dL [facility] RDW 12.9 10.8 - 14.6 % [facility] MPV 10.5 9.4 - 12.4 fl [facility] NRBC 0.00 /100 WBCs [facility] ABSOLUTE NRBC 0.00 K/uL [facility] DIFF METHOD Auto [facility] NEUTS 53.8 45.30 - 77.70 % [facility] LYMPHS 34.4 12.30 - 39.70 % [facility] MONOS 8.2 4.10 - 12.80 % [facility] EOS 2.6 0 - 7.2 % [facility] BASOS 0.8 0 - 2.80 % [facility] Granulocytes, immature (%) 0.2 0.0 - 0.9 % [facility] ABSOLUTE NEUTS 2.69 1.40 - 7.70 K/uL [facility] ABSOLUTE LYMPHS 1.72 0.60 - 3.20 K/uL [facility] ABSOLUTE MONOS 0.41 0.11 - 0.59 K/uL [facility] ABSOLUTE EOS 0.13 0.01 - 0.50 K/uL [facility] ABSOLUTE BASOS 0.04 0.00 - 0.08 K/uL [facility] Granulocytes, immature 0.01 0.00 - 0.05 K/uL [facility] Blood 06/21/2018 4:35 PM EDT 06/21/2018 5:56 PM EDT us Margaux Montanez MD LAB BLOOD ORDERABLES Fin al Result [address] [address] * Ferritin (06/21/2018 4:35 PM EDT) FERRITIN 43 13 - 150 ug/L [facility] Blood 06/21/2018 4:35 PM EDT 06/21/2018 5:56 PM EDT us Beatriz Donaldson REGULATORY ASSOCIATE LAB BLOOD ORDERABLES Final R esult Performing Organization Address [facility] Co de Phone Number [address] [address] * Iron (06/21/2018 4:35 PM EDT) IRON 64 30 - 160 ug/dL [facility] Blood 06/21/2018 4:35 PM EDT 06/21/2018 5:56 PM EDT us Beatriz Donaldson REGULATORY ASSOCIATE LAB BLOOD ORDERABLES Final R esult Performing Organization Address [facility] Co de Phone Number [address] [address] * (ABNORMAL) TSH (06/21/2018 4:35 PM EDT) TSH 0.04(L) 0.27 - 4.20 uIU/mL [facility] Blood 06/21/2018 4:35 PM EDT 06/21/2018 5:56 PM EDT Beatriz Donaldson REGULATORY ASSOCIATE LAB BLOOD ORDERABLES Final R esult Performing Organization Address [facility] Co de Phone Number [address] [address] documented in this encounter Visit Diagnoses Diagnosis Routine general medical examination at a health care facility- Primary Sjogren's syndrome with lung involvement Inflammatory arthritis Unspecified inflammatory polyarthropathy 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, terminal supervisor, current use documented in this encounter Additional Health Concerns Infection Onset Date Last Indicated Resolved Time CoV-Presumed 05/27/2022 05/27/2022 06/17/2022 1:21 AM EDT CoV-Presumed Comment:COVID-19 Added 10/12/2022 10/12/2022 10/13/2022 6:26 P M EST COVID-19 10/13/2022 10/13/2022 11/03/2022 1:21 AM EST COVID-19 10/07/2023 10/07/2023 10/28/2023 1:21 AM EST documented as of this encounter Care Teams Promotions Intern Relationship Specialty Start Date End Date Beatriz Donaldson REGULATORY ASSOCIATE [address] [place] [address] PCP - General Family Medicine 10/04/17 04/11/20 Mamta Whitney DO [address] [place] [address] [email or web address] PCP - General Family Medicine 04/12/20 02/08/21 Mamta Whitney DO [address] [place] [address] [email or web address] PCP - General Family Medicine 02/10/21 02/10/21 Johann Hanson CNP [facility] [place] [address] [email or web address] PCP - General Family Medicine 02/11/21 Tricia Balderas DO [address] [place] [address] [email or web address] Historical LMR Provider 07/28/17 10/15/21 Lester Hicks MD [address] [place] [address] [email or web address] Historical LMR Provider 07/28/17 Margaux Montanez MD [address] [place] [address], [address] [place] [address] [email or web address] Historical LMR Provider 07/28/17 Demario Floyd MD [address] [place] [address] [email or web address] Historical LMR Provider 07/28/17 10/15/21 Pam Benson MD [address] [place] [address] [email or web address] Historical LMR Provider 07/28/17 10/15/21 Adithya Campos, SHED WORKERS SUPERVISOR [address] [place] [address] [email or web address] Historical LMR Provider 07/28/17 12/25/21 Beatriz Donaldson, REGULATORY ASSOCIATE [address] [place] [address] Historical LMR Provider 07/28/17 04/11/20 Khang Kilgore MD [address] [place] [address], [address] [place] [address] [email or web address] Insurance Assigned Provider 01/12/24 Luis Ignacio DO [address] [place] [address], [address] [place] [address] Cardiology 06/28/22 06/16/24 Flo Esteban MD [address] [place] [address] [place] [address] [email or web address] Cardiothoracic Surgery 06/28/22 06/16/24 Dilan Rowland MD [address] [place] [address], [address] [place] [address] [email or web address] Insurance Assigned Provider 07/15/22 08/13/22 Corby Prado MD [address] [place] [address], [address] [place] [address] [email or web address] Insurance Assigned Provider 08/13/22 09/16/22 Neisha Pinto RN [address] [place] [address], [address] [place] [address] [email or web address] PHC Ball Mill Mixer 02/26/23 06/10/25 Shreyas Wilson MD [address] [place] [address] [email or web address] Gastroenterology 06/17/24 Doretha Glynn MD [address] [place] [address] 3rd [place] [address] [email or web address] Endocrinology 06/17/24 Izzy Hackett [address] [place] [address] [email or web address] PHC Community Linoleum Layer 09/11/24 09/11/24 Radha Pereira, RN [address] [place] [phone] [email or web address] PHCM Ball Mill MixerRecreational Specialist 06/11/25 documented as of this encounter Additional Source Comments The information contained in this document represents components of the legal health record. It is not the complete legal health record.[facility]
--- OUTSIDE RECORDS SUMMARY | 2025-07-22 08:11 | XMS_ITS | Encounter Summary ---
Author Organization [facility] Address [address] [place] [address] Phone Care Team Providers Care Wound Care Physician Name Role Phone Lester Hicks MD Unavailable [phone] Margaux Montanez MD Unavailable Johann Hanson CNP Primary Care Provider [phone] Khang Kilgore MD Unavailable Luis Ignacio DO Unavailable Flo Esteban MD Unavailable [phone] Neisha Pinto RN Unavailable [email or web address] Shreyas Wilson MD Unavailable Doretha Glynn MD Unavailable [phone] Izzy Hackett Unavailable [email or web address] Radha Pereira RN Unavailable [phone] Encounter Details Date Type Department Care Team (Late st Contact Info) Description 11/17/2022 Procedure Pass [facility] PERIOPERATIVE DEPT [address] [place] [address] Social History Tobacco Use Types [...] high school, GED, job training, learning the [place] language, technical skills, or developing parenting skills)? [...] 11/17/2022 7:00 PM David Mccormick RN * [place] Suicide Severity Rating Scale (Screener/Recent Self-Report) Question [...] Description 07/22/2025 1:30 PM EDT Office Visit [address] [place] [address] Johann Hanson, MELT HELPER [address] [place] [address], [address] [place] [address] [email or web address] 07/23/2025 8:00 AM EDT Office Visit [facility] Rheumatology [address] [place] [address] [place] [address] Margaux Montanez MD [address] [place] [address], [address] [place] [address] [email or web address] 08/24/2025 1:30 PM EST Office Visit [address] [place] [address] Johann Hanson, MELT HELPER [address] [place] [address], [address] [place] [address] [email or web address] 09/10/2025 9:00 AM EST Office Visit [facility] Gastroenterology Clinic [address] [place] [address] Unknown, Unknown, Shreyas Limon MD [address] [address] 09/21/2025 2:30 PM EST Office Visit [facility] Pulmonary, Allergy and Critical Care Medicine [address] [place] [address] Lester Hicks MD [address] [place] [address] 10/13/2025 9:20 AM EST Office Visit [facility] Endocrinology [address] [place] [address] Doretha Glynn MD [address] [place] [address] [email or web address] 12/22/2025 8:30 AM EDT Office Visit [address] [place] [address] Johann Hanson CNP [address] [place] [address], [address] [place] [address] [email or web address] 06/30/2026 8:00 AM EDT Office Visit [address] [place] [address] Johann Hanson CNP [address] [place] [address], [address] [place] [address] [email or web address] documented as of this encounter Visit Diagnoses Not on filedocumented in this encounter Additional Health Concerns Infection Onset Date Last Indicated Resolved Time COVID-19 10/07/2023 10/07/2023 10/28/2023 1:21 AM EST Assessment Noted Time PHQ-2 Depression Total Score: 0 05/15/20 22 1:45 PM EDT documented as of this encounter Care Teams Wound Care Physician Relationship Specialty Start Date End Date Johann Hanson CNP [address] [place] [address], [address] [place] [address] PCP - General Family Medicine 02/11/21 Lester Hicks MD [address] [place] [address] Historical LMR Provider 07/28/17 KlMargaux Parish MD [address] [place] [address], [address] [place] [address] [email or web address] Historical LMR Provider 07/28/17 Khang Kilgore MD [address] [place] [address], [address] [place] [address] Insurance Assigned Provider 01/12/24 Luis Ignacio DO [address] [place] [address], [address] [place] [address] Cardiology 06/28/22 06/16/24 Flo Esteban MD [address] [place] [address] [email or web address] Cardiothoracic Surgery 06/28/22 06/16/24 Neisha Pinto RN [address] [place] [address] [email or web address] PHCM Graphic Design Specialist 02/26/23 06/10/25 Shreyas Wilson MD [address] [place] [address] Gastroenterology 06/17/24 Doretha Glynn MD [address] [place] [address] 3rd [place] [address] Endocrinology 06/17/24 Izzy Hackett [address] [place] [address] [email or web address] PHCM Community Cardio Clinician 09/11/24 09/11/24 Radha Pereira, RN [address] [place] [address] [email or web address] PHCM Graphic Design SpecialistDesk Clerks Supervisor 06/11/25 documented as of this encounter Additional Source Comments The information contained in this document represents components of the legal health record. It is not the complete legal health record.[facility]
--- OUTSIDE RECORDS SUMMARY | 2025-07-22 08:13 | XMS_ITS | Encounter Summary ---
Author Organization [facility] Address [address] [place] [address] [place] [address] Phone Care Team Providers Care Recording Artist Name Role Phone Tricia Balderas DO Unavailable Lester Hicks MD Unavailable [phone] Margaux Montanez MD Unavailable Demario Floyd MD Unavailable Pam Benson MD Unavailable [phone] Adithya Campos RIB BENDER Unavailable Beatriz Donaldson WEASAND TRIMMER Unavailable Beatriz Donaldson WEASAND TRIMMER Primary Care Provider Mamta Whitney DO Primary Care Provider [phone] Mamta Whitney DO Primary Care Provider [phone] Johann Hanson RIB BENDER Primary Care Provider [phone] Khang Kilgore MD Unavailable Luis Ignacio DO Unavailable Flo Esteban MD Unavailable [phone] Dilan Rowland MD Unavailable [phone] Corby Prado MD Unavailable [phone] Neisha Pinto RN Unavailable [email or web address] Shreyas Wilson MD Unavailable [phone] Doretha Glynn MD Unavailable [phone] Izzy Hackett Unavailable sami Radha Pereira RN Unavailable Encounter Details Date Type Department Care Team (Late st Contact Info) Description 11/12/2019 Ancillary Orders Virtual Department [address] [place] [address] Beatriz Donaldson, WEASAND TRIMMER [address] [place] [address] Breast screening Social History Tobacco Use Types [...] [employer] [facility] [address] [place] [address] Johann Hanson, TIFFANIE [address] [place] [address], [address] [place] [address] [email or web address] 07/23/2025 8:00 AM EDT Office Visit [facility] Rheumatology [address] [place] [address] Margaux Montanez MD [address] [place] [address], [address] [place] [address] [email or web address] 08/24/2025 1:30 PM EST Office Visit [address] [place] [address] Johann Hanson CNP [address] [place] [address], [address] [place] [address] [email or web address] 09/10/2025 9:00 AM EST Office Visit [facility] 10 [place] [address] Unknown, [place], Shreyas Limon MD [address] [place] [address] 09/21/2025 2:30 PM EST Office Visit [facility] Pulmonary, Allergy [facility] Critical Care Medicine 10 [place] [address] Lester Hicks MD [address] [place] [address] 10/13/2025 9:20 AM EST Office Visit [facility] [address] [place] [address] Doretha Glynn MD [address] [place] [address] [address] [place] [address] [email or web address] 12/22/2025 8:30 AM EDT Office Visit [address] [place] [address] Johann Hanson, TIFFANIE [address] [place] [address], [address] [place] [address] [email or web address] 06/30/2026 8:00 AM EDT Office Visit [address] [place] [address] Johann Hanson CNP [address] [place] [address], [address] [place] [address] [email or web address] documented as of this encounter Visit [...] documented as of this encounter Care Teams Recording Artist Relationship Specialty Start Date End Date Beatriz Donaldson NP [address] [place] [address] PCP - General Family Medicine 10/04/17 04/11/20 Mamta Whitney DO [address] [place] [address] [email or web address] PCP - General Family Medicine 04/12/20 02/08/21 Mamta Whitney DO [address] [place] [address] [email or web address] PCP - General Family Medicine 02/10/21 02/10/21 Johann Hanson CNP [address] [place] [address], [address] [place] [address] [email or web address] PCP - General Family Medicine 02/11/21 Tricia Balderas DO [address] [place] [address] [email or web address] Historical LMR Provider 07/28/17 10/15/21 Lester Hicks MD [address] [place] [address] [email or web address] Historical LMR Provider 07/28/17 Margaux Montanez MD [address] [address] [email or web address] Historical LMR Provider 07/28/17 Demario Floyd MD [address] [place] [address] [email or web address] Historical LMR Provider 07/28/17 10/15/21 Pam Benson MD [address] [place] [address] [email or web address] Historical LMR Provider 07/28/17 10/15/21 Adithya Campos, RIB BENDER [address] [place] [address] Historical LMR Provider 07/28/17 12/25/21 Beatriz Donaldson, EARL [address] [place] [address] Historical LMR Provider 07/28/17 04/11/20 Khang Kilgore MD [address] [place] [address], [address] [place] [address] [email or web address] Insurance Assigned Provider 01/12/24 Luis Ignacio DO [address] [place] [address], [address] [place] [address] Cardiology 06/28/22 06/16/24 Flo Esteban MD [address] [place] [address] [email or web address] Cardiothoracic Surgery 06/28/22 06/16/24 Dilan Rowland MD [address] [place] [address], [address] [place] [address] [email or web address] Insurance Assigned Provider 07/15/22 08/13/22 Corby Prado MD [address] [place] [address], [address] [place] [address] [email or web address] Insurance Assigned Provider 08/13/22 09/16/22 Neisha Pinto RN [address] [place] [address], [address] [place] [address] [email or web address] Explosive Ordnance Disposal Manager 02/26/23 06/10/25 Shreyas Wilson MD [address] [place] [address] Gastroenterology 06/17/24 Doretha Glynn MD [address] [place] [address] [address] [place] [address] Endocrinology 06/17/24 Izzy Hackett [address] [place] [address] [email or web address] PHCM Community Screw Machine Set Up Operator 09/11/24 09/11/24 Radha Pereira RN [address] [place] [address] [email or web address] PHCM Explosive Ordnance Disposal ManagerCommuter Pilot 06/11/25 documented as of this encounter Additional Source Comments The information contained in this document represents components of the legal health record. It is not the complete legal health record.[facility]
--- OUTSIDE RECORDS SUMMARY | 2025-07-22 08:13 | XMS_ITS | Encounter Summary ---
Author Organization [facility] Address [address] [place] [address] [place] [address] Phone Care Team Providers Care Woodwinds Teacher Name Role Phone Lester Hicks MD Unavailable [phone] Margaux Montanez MD Unavailable Johann Hanson CNP Primary Care Provider [phone] Khang Kilgore MD Unavailable Luis Ignacio DO Unavailable Flo Esteban MD Unavailable [phone] Dilan Rowland MD Unavailable [phone] Corby Prado MD Unavailable [phone] Neisha Pinto RN Unavailable [email or web address] Shreyas Wilson MD Unavailable Doretha Glynn MD Unavailable [phone] Izzy Hackett Unavailable sami Radha Pereira RN Unavailable Encounter Details Date Type Department Care Team (Late st Contact Info) Description 02/10/2022 Procedure Pass Echo Lab [address] [place] [address] Social History Tobacco Use Types Packs/Day [...] high school, GED, job training, learning the Montenegrin language, technical skills, or developing parenting skills)? [...] EDT Office Visit [facility] [place] [facility] [address] [place] [address] [place] [address] Johann Hanson CNP [address] [facility], [address] [place] [address] [email or web address] 07/23/2025 8:00 AM EDT Office Visit [facility] Rheumatology [address] [place] [address] Margaux Montanez MD [address] [facility], [address] [place] [address] [email or web address] 08/24/2025 1:30 PM EST Office Visit [facility] [address] [place] [address] Johann Hanson, VICE PRESIDENT FINANCIAL [address] [place] [address], [address] [place] [address] [email or web address] 09/10/2025 9:00 AM EST Office Visit [facility] 10 [place] [address] Unknown, [place], Shreyas Limon MD [address] [place] [address] 09/21/2025 2:30 PM EST Office Visit [facility] Critical [facility] 10 [place] [address] Lester Hicks MD [address] [place] [address] 10/13/2025 9:20 AM EST Office Visit [facility] [address] [place] [address] Doretha Glynn MD [address] [place] [address] [email or web address] 12/22/2025 8:30 AM EDT Office Visit [facility] [address] [place] [address] Johann Hanson, VICE PRESIDENT FINANCIAL [address] [place] [address], [address] [place] [address] [email or web address] 06/30/2026 8:00 AM EDT Office Visit [address] [place] [address] Johann Hanson CNP [address] [facility] [place] [address] [email or web address] documented as of this encounter [...] documented as of this encounter Care Teams Woodwinds Teacher Relationship Specialty Start Date End Date Johann Hanson CNP [address] [facility] [place] [address] PCP - General Family Medicine 02/11/21 Lester Hicks MD [address] [place] [address] Historical LMR Provider 07/28/17 Margaux Montanez MD [address] [facility], [address] [place] [address] [email or web address] Historical LMR Provider 07/28/17 Khang Kilgore MD [address] [place] [address], [address] [place] [address] Insurance Assigned Provider 01/12/24 Luis Ignacio DO [address] [place] [address], [address] [place] [address] Cardiology 06/28/22 06/16/24 Flo Esteban MD [address] [place] [address] [email or web address] Cardiothoracic Surgery 06/28/22 06/16/24 Dilan Rowland MD [address] [place] [address], [address] [place] [address] Insurance Assigned Provider 07/15/22 08/13/22 Corby rPado MD [address] [place] [address], [address] [place] [address] Insurance Assigned Provider 08/13/22 09/16/22 Neisha Pinto, RANDI [address] [place] [address], [address] [place] [address] [email or web address] Hydroelectric Systems Technician 02/26/23 06/10/25 Shreyas Wilson MD [address] [place] [address] Gastroenterology 06/17/24 Doretha Glynn MD [address] [address] Endocrinology 06/17/24 Izzy Hackett [address] [place] [address] [email or web address] PHCM Community Manager Club 09/11/24 09/11/24 Radha Pereira, RN [address] [place] [address] PHCM Hydroelectric Systems TechnicianLine Patrolman 06/11/25 documented as of this encounter Additional Source Comments The information contained in this document represents components of the legal health record. It is not the complete legal health record.[facility]
--- OUTSIDE RECORDS SUMMARY | 2025-07-22 08:13 | XMS_ITS | Encounter Summary ---
Author Organization [facility] Address [address] [place] [address] Phone Care Team Providers Care Waistline Joiner Lockstitch Name Role Phone Lester Hicks MD Unavailable [phone] Margaux Montanez MD Unavailable Johann Hanson CNP Primary Care Provider [phone] Khang Kilgore MD Unavailable Luis Ignacio DO Unavailable Flo Esteban MD Unavailable [phone] Neisha Pinto RN Unavailable [email or web address] Shreyas Wilson MD Unavailable Doretha Glynn MD Unavailable [phone] Izzy Hackett Unavailable [email or web address] Radha Pereira RN Unavailable [phone] Encounter Details Date Type Department Care Team (Latest Contact Info) Description 09/07/2023 Transcribe Orders Virtual Department 30 [place] [address] Shreyas Wilson MD [address] [place] [address] [phone] [email or web address] Gastroesophageal reflux disease, unspecified whether [...] high school, GED, job training, learning the Venezuelan language, technical skills, or developing parenting skills)? [...] 07/22/2025 1:30 PM EDT Office Visit [address] [place] [address] Johann Hanson, TEST DESIGNER [address] [place] [address], [address] [place] [address] [email or web address] 07/23/2025 8:00 AM EDT Office Visit [facility] Rheumatology [address] [place] [address] [place] [address] Margaux Montanez MD [address] [place] [address], [address] [place] [address] [email or web address] 08/24/2025 1:30 PM EST Office Visit [address] [place] [address] Johann Hanson, TEST DESIGNER [address] [place] [address], [address] [place] [address] [email or web address] 09/10/2025 9:00 AM EST Office Visit [facility] Gastroenterology Clinic 10 [place] [address] Unknown, Unknown, Shreyas Limon MD [address] [id number] 09/21/2025 2:30 PM EST Office Visit [facility] Pulmonary, Allergy [facility] Critical Care Medicine 10 [place] [address] Lester Hicks MD [address] [place] [address] 10/13/2025 9:20 AM EST Office Visit [facility] [address] [place] [address] [place] [address] Doretha Glynn MD [address] [place] [address] [email or web address] 12/22/2025 8:30 AM EDT Office Visit [address] [place] [address] Johann Hanson CNP [address] [place] [address], [address] [place] [address] [email or web address] 06/30/2026 8:00 AM EDT Office Visit [address] [place] [address] Johann Hanson CNP [address] [place] [address], [address] [place] [address] [email or web address] documented as of this encounter Visit Diagnoses Diagnosis Gastroesophageal reflux disease, unspecified whether esophagitis present- Primary RUQ abdominal pain Abdominal pain, right upper quadrant Regurgitation of food Nausea Nausea alone documented in this encounter Additional Health Concerns Infection Onset Date Last Indicated Resolved Time COVID-19 10/07/2023 10/07/2023 10/28/2023 1:21 AM EST Assessment Noted Time PHQ-2 Depression Total Score: 0 04/23/20 3:25 PM EDT documented as of this encounter Care Teams Waistline Joiner Lockstitch Relationship Specialty Start Date End Date Johann Hanson CNP [address] [place] [address], [address] [place] [address] PCP - General Family Medicine 5/7/21 Lester Hicks MD [address] [place] [address] Historical LMR Provider 07/28/17 Margaux Montanez MD [address] [place] [address], [address] [place] [address] [email or web address] Historical LMR Provider 07/28/17 Khang Kilgore MD [address] [place] [address], [address] [place] [address] [email or web address] Insurance Assigned Provider 01/12/24 Luis Ignacio DO [address] [place] [address], [address] [place] [address] Cardiology 06/28/22 06/16/24 Flo Esteban MD [address] [place] [address] [email or web address] Cardiothoracic Surgery 06/28/22 06/16/24 Neisha Pinto RN [address] [place] [address] [email or web address] Fishing Captain 02/26/23 06/10/25 Shreyas Wilson MD [address] [place] [address] Gastroenterology 06/17/24 Doretha Glynn MD [address] [place] [address] Endocrinology 06/17/24 Izzy Hackett [address] [place] [address] [email or web address] PHCM Community Wood Boring Machine Operator 09/11/24 09/11/24 Radha Pereira RN [address] [place] [address] [email or web address] PHC Fishing CaptainLocomotive Engineer Electric 06/11/25 documented as of this encounter Additional Source Comments The information contained in this document represents components of the legal health record. It is not the complete legal health record.[facility]
--- OUTSIDE RECORDS SUMMARY | 2025-07-22 08:13 | XMS_ITS | Encounter Summary ---
Author Organization [facility] Address [address] [place] [address] Phone Care Team Providers Care Gyn Name Role Phone Lester Hicks MD Unavailable [phone] Margaux Montanez MD Unavailable Johann Hanson CNP Primary Care Provider [phone] Khang Kilgore MD Unavailable Luis Ignacio DO Unavailable [phone] Flo Esteban MD Unavailable [phone] Neisha Pinto RN Unavailable [email or web address] Shreyas Wilson MD Unavailable Doretha Glynn MD Unavailable [phone] Izzy Hackett Unavailable [email or web address] Radha Pereira RN Unavailable Encounter Details Date Type Department Care Team (Latest Contact Info) Description 12/28/2023 Transcribe Orders Virtual Department [address] [place] [address] Shreyas Wilson MD [address] [place] [address] Dysphagia, unspecified type (Primary Dx); Nausea and [...] high school, GED, job training, learning the Rwandan language, technical skills, or developing parenting skills)? [...] Description 07/22/2025 1:30 PM EDT Office Visit [address] [place] [address] Johann Hanson, BEAM SEALER [address] [place] [address], [address] [place] [address] [email or web address] 07/23/2025 8:00 AM EDT Office Visit [facility] Rheumatology [address] [place] [address] [place] [address] Margaux Montanez MD [address] [place] [address], [address] [place] [address] [email or web address] 08/24/2025 1:30 PM EST Office Visit [address] [place] [address] Johann Hanson, BEAM SEALER [address] [place] [address], [address] [place] [address] [email or web address] 09/10/2025 9:00 AM EST Office Visit [facility]enterology Clinic 10 [place] [address] Unknown, Unknown, Shreyas Limon MD [address] [address] 09/21/2025 2:30 PM EST Office Visit [facility], Allergy [facility] Critical Care [facility] 10 [facility] [place] [address] Lester Hicks MD [address] [place] [address] 10/13/2025 9:20 AM EST Office Visit [facility] [address] [place] [address] [place] [address] Doretha Glynn MD [address] [place] [address] [email or web address] 12/22/2025 8:30 AM EDT Office Visit [address] [place] [address] Johann Hanson, BEAM SEALER [address] [place] [address], [address] [place] [address] [email or web address] 06/30/2026 8:00 AM EDT Office Visit [address] [place] [address] Johann Hanson, BEAM SEALER [address] [place] [address], [address] [place] [address] [email or web address] documented as of this encounter [...] edited the report originally created by Ronnell Maurre. Narrative 01/01/2024 1:20 PM EDT BARIUM SWALLOW [...] 30 seconds NUMBER OF IMAGES: [id number] ATTESTATION: Lester Guillen as teaching physician, have reviewed theimages for this case and if necessary edited the report originally createdby Ronnell Maurer. us Shreyas Wilson MD IMG [place] MISC Final Result documented in this encounter Visit Diagnoses Diagnosis Dysphagia, unspecified type- Primary Nausea and vomiting, unspecified vomiting type Dysphagia, unspecified type Nausea and vomiting, unspecified vomiting type documented in this encounter Additional Health Concerns Assessment Noted Time PHQ-9 Depression Total Score: 4 10/29/19 1:54 PM EST PHQ-2 Depression Total Score: 2 10/29/19 1:54 PM EST documented as of this encounter Care Teams Gyn Relationship Specialty Start Date End Date Johann Hanson CNP [address] [place] [address], [address] [place] [address] PCP - General Family Medicine 02/11/21 Lester Hicks MD [address] [place] [address] Historical LMR Provider 07/28/17 Margaux Montanez MD [address] [place] [address], [address] [place] [address] [email or web address] Historical LMR Provider 07/28/17 Khang Kilgore MD [address] [place] [address], [address] [place] [address] [email or web address] Insurance Assigned Provider 01/12/24 Luis Ignacio DO [address] [place] [address], [address] [place] [address] Cardiology 06/28/22 06/16/24 Flo Esteban MD [address] [place] [address] [email or web address] Cardiothoracic Surgery 06/28/22 06/16/24 Neisha Pinto RN [address] [place] [address] [email or web address] PHCM Statistical Methods Professor 02/26/23 06/10/25 Shreyas Wilson MD [address] [place] [address] [email or web address] Gastroenterology 06/17/24 Doretha Glynn MD [address] [place] [address] 3[address] [place] [address] [email or web address] Endocrinology 06/17/24 Izzy Hackett [address] [place] [address] [email or web address] PHCM Community Cat Scan Technologist 09/11/24 09/11/24 Radha Pereira, RANDI [address] [place] [address] [email or web address] PHCM Statistical Methods ProfessorSock Knitter 06/11/25 documented as of this encounter Additional Source Comments The information contained in this document represents components of the legal health record. It is not the complete legal health record.[facility]
--- OUTSIDE RECORDS SUMMARY | 2025-07-22 08:13 | XMS_ITS | Encounter Summary ---
Author Organization [facility] Address [address] [place] [address] Phone Care Team Providers Care Tablet Technician Name Role Phone Lester Hicks MD Unavailable [phone] Margaux Montanez MD Unavailable [phone] Johann Hanson CNP Primary Care Provider [phone] Khang Kilgore MD Unavailable [phone] Luis Ignacio DO Unavailable Flo Esteban MD Unavailable [phone] Neisha Pinto RN Unavailable [email or web address] Shreyas Wilson MD Unavailable Doretha Glynn MD Unavailable [phone] Izzy Hackett Unavailable [email or web address] Radha Pereira RN Unavailable [phone] Encounter Details Date Type Department Care Team (Late st Contact Info) Description 12/07/2022 Procedure Pass [facility] [address] [place], [place] [id number] Social History Tobacco Use Types Packs/Day Years [...] high school, GED, job training, learning the Urugu[place] language, technical skills, or developing parenting skills)? [...] 12/07/2022 9:18 AM Alise Hamilton, RN * Kidder Suicide Severity Rating Scale (Screener/Recent Self-Report) Question [...] Description 07/22/2025 1:30 PM EDT Office Visit [address] [place] [address] Johann Hanson, MASTERCAM PROGRAMMER [address] [place] [address], [address] [place] [address] [email or web address] 07/23/2025 8:00 AM EDT Office Visit [facility] Rheumatology [address] [place] [address] [place] [address] Margaux Montanez MD [address] [place] [address], [address] [place] [address] [email or web address] 08/24/2025 1:30 PM EST Office Visit [address] [place] [address] Johann Hanson, MASTERCAM PROGRAMMER [address] [place] [address], [address] [place] [address] [email or web address] 09/10/2025 9:00 AM EST Office Visit [facility] G[facility]enterology Clinic [address] [place] [address] Unknown, Unknown, Shreyas Limon MD [address] [place] [address] 09/21/2025 2:30 PM EST Office Visit [facility] Pulmonary, Allergy and Critical Care Medicine 10 [facility] [address] Lester Hicks MD [address] [place] [address] 10/13/2025 9:20 AM EST Office Visit [facility] Endocrinology [address] [place] [address] Doretha Glynn MD [address] [place] [address] [email or web address] 12/22/2025 8:30 AM EDT Office Visit [address] [place] [address] Johann Hanson CNP [address] [place] [address], [address] [place] [address] [email or web address] 06/30/2026 8:00 AM EDT Office Visit [address] [place] [address] Johann Hanson CNP [address] [place] [address], [address] [place] [address] [email or web address] documented as of this encounter Visit Diagnoses Not on filedocumented in this encounter Additional Health Concerns Infection Onset Date Last Indicated Resolved Time COVID-19 10/07/2023 10/07/2023 10/28/2023 1:2 1 AM EST Assessment Noted Time PHQ-2 Depression Total Score: 0 05/15/20 22 1:45 PM EDT documented as of this encounter Care Teams Tablet Technician Relationship Specialty Start Date End Date Johann Hanson CNP [address] [place] [address], [address] [place] [address] PCP - General Family Medicine 02/11/21 Lester Hicks MD [address] [place] [address] Historical LMR Provider 07/28/17 Margaux Montanez MD [address] [place] [address], [address] [place] [address] [email or web address] Historical LMR Provider 07/28/17 Khang Kilgore MD [address] [place] [address], [address] [place] [address] Insurance Assigned Provider 01/12/24 Luis Ignacio DO [address] [place] [address], [address] [place] [address] Cardiology 06/28/22 06/16/24 Flo Esteban MD [address] [place] [address] [email or web address] Cardiothoracic Surgery 06/28/22 06/16/24 Neisha Pinto RN [address] [place] [address] [email or web address] PHCM Fitness/Wellness Director 02/26/23 06/10/25 Shreyas Wilson MD [address] [place] [address] Gastroenterology 06/17/24 Doretha Glynn MD [address] [place] [address] 3rd [place] [address] Endocrinology 06/17/24 Izzy Hackett [address] [place] [address] [email or web address] PHCM Community Chocolate Finisher 09/11/24 09/11/24 Radha Pereira, RN 10 [place] [address] [email or web address] PHCM Fitness/Wellness DirectorVessel Scrapper 06/11/25 documented as of this encounter Additional Source Comments The information contained in this document represents components of the legal health record. It is not the complete legal health record.[facility]
--- OUTSIDE RECORDS SUMMARY | 2025-07-22 08:13 | XMS_ITS | Encounter Summary ---
Author Organization [facility] Address [address] [place] [address] Phone Care Team Providers Care Welder Plasma Arc Name Role Phone Lester Hicks MD Unavailable [phone] Margaux Montanez MD Unavailable [phone] Johann Hanson CNP Primary Care Provider [phone] Khang Kilgore MD Unavailable Luis Ignacio DO Unavailable Flo Esteban MD Unavailable [phone] Neisha Pinto RN Unavailable [email or web address] Shreyas Wilson MD Unavailable Doretha Glynn MD Unavailable [phone] Izzy Hackett Unavailable [email or web address] Radha Pereira RN Unavailable Encounter Details Date Type Department Care Team (Late st Contact Info) Description 12/07/2022 Procedure Pass [facility], Ct Scan - [address] [phone] Social History Tobacco Use Types Packs/Day Years [...] high school, GED, job training, learning the [place] language, technical skills, or developing parenting skills)? [...] 12/07/2022 9:18 AM Alise Hamilton, RN * Dickenson Suicide Severity Rating Scale (Screener/Recent Self-Report) Question [...] Description 07/22/2025 1:30 PM EDT Office Visit [address] [place] [address] Johann Hanson, AUTOMOTIVE SERVICE ADVISOR [address] [place] [address], [address] [place] [address] [email or web address] 07/23/2025 8:00 AM EDT Office Visit [facility] Rheumatology [address] [place] [address] [place] [address] Margaux Montanez MD [address] [place] [address], [address] [place] [address] [email or web address] 08/24/2025 1:30 PM EST Office Visit [address] [place] [address] Johann Hanson, AUTOMOTIVE SERVICE ADVISOR [address] [place] [address], [address] [place] [address] [email or web address] 09/10/2025 9:00 AM EST Office Visit [facility] Gastroenterology Clinic 10 [place] [address] Unknown, Unknown, Shreyas Limon MD [address] [address] 09/21/2025 2:30 PM EST Office Visit [facility] Pulmonary, Allergy and Critical Care Medicine 10 [facility] [place] [address] Lester Hicks MD [address] [address] 10/13/2025 9:20 AM EST Office Visit [facility]in[facility] 22 [place] [address] Doretha Glynn MD [address] [place] [address] [email or web address] 12/22/2025 8:30 AM EDT Office Visit [address] [place] [address] Johann Hanson CNP [address] [place] [address], [address] [place] [address] [email or web address] 06/30/2026 8:00 AM EDT Office Visit [address] [place] [address] Johann Hanson CNP [address] [place] [address], [address] [place] [address] [email or web address] documented as of this encounter Visit Diagnoses Not on filedocumented in this encounter Additional Health Concerns Infection Onset Date Last Indicated Resolved Time COVID-19 10/07/2023 10/07/2023 10/28/2023 1:21 AM EST Assessment Noted Time PHQ-2 Depression Total Score: 0 05/15/20 22 1:45 PM EDT documented as of this encounter Care Teams Welder Plasma Arc Relationship Specialty Start Date End Date Johann Hanson CNP [address] [place] [address], [address] [place] [address] PCP - General Family Medicine 02/11/21 Lester Hicks MD [address] [place] [address] Historical LMR Provider 07/28/17 Margaux Montanez MD 22 [facility], [address] [place] [address] [email or web address] Historical LMR Provider 07/28/17 Khang Kilgore MD [address] [place] [address], [address] [place] [address] Insurance Assigned Provider 01/12/24 Luis Ignacio DO [address] [place] [address], [address] [place] [address] Cardiology 06/28/22 06/16/24 Flo Esteban MD [address] [place] [address] [email or web address] Cardiothoracic Surgery 06/28/22 06/16/24 Neisha Pinto RN [address] [place] [address] [email or web address] PHCM Ordnance Equipment Worker 02/26/23 06/10/25 Shreyas Wilson MD [address] [place] [address] Gastroenterology 06/17/24 Doretha Glynn MD [address] [place] [address] 3rd [place] [address] Endocrinology 06/17/24 Izzy Hackett [address] [place] [address] [email or web address] PHCM Community Installation Manager 09/11/24 09/11/24 Radha Pereira, RN [address] [place] [address] [email or web address] PHCM Ordnance Equipment WorkerInvisible Braces Orthodontist 06/11/25 documented as of this encounter Additional Source Comments The information contained in this document represents components of the legal health record. It is not the complete legal health record.[facility]
--- OUTSIDE RECORDS SUMMARY | 2025-07-22 08:14 | XMS_ITS | Encounter Summary ---
Author Organization [facility] Address [address] [place] [address] Phone Care Team Providers Care Grain Farmer Name Role Phone Tricia Balderas DO Unavailable Lester Hicks MD Unavailable [phone] Margaux Montanez MD Unavailable Demario Floyd MD Unavailable Pam Benson MD Unavailable Adithya Campos FIELD OBSERVER Unavailable Johann Hanson FIELD OBSERVER Primary Care Provider [phone] Khang Kilgore MD Unavailable Luis Ignacio DO Unavailable Flo Esteban MD Unavailable [phone] Dilan Rowland MD Unavailable Corby Prado MD Unavailable [phone] Neisha Pinto RN Unavailable [email or web address] Shreyas Wilson MD Unavailable Doretha Glynn MD Unavailable [phone] Izzy Hackett Unavailable [email or web address] [email or web address] RANDI Unavailable Encounter Details Date Type Department Care Team (Late Contact Info) Description 02/22/2021 Procedure Pass [facility] [address] [place] [address] Social History Tobacco Use Types Packs/Day Years [...] high school, GED, job training, learning the Swazi language, technical skills, or developing parenting skills)? [...] Upcoming Encounters Date Type Department Care Team ([facility] Contact Info) Description 07/22/2025 1:30 PM EDT Office Visit [address] [place] [address] Johann Hanson, FIELD OBSERVER [address] [place] [address], [address] [place] [address] [email or web address] 07/23/2025 8:00 AM EDT Office Visit [facility] Rheumatology [address] [place] [address] [place] [address] Margaux Montanez MD [address] [place] [address], [address] [place] [address] [email or web address] 08/24/2025 1:30 PM EST Office Visit [address] [place] [address] Johann Hanson, FIELD OBSERVER [address] [place] [address], [address] [place] [address] [email or web address] 09/10/2025 9:00 AM EST Office Visit [facility] Gastroenterology Clinic 10 [place] [address] Unknown, [place], Shreyas Limon MD [address] [place] [address] 09/21/2025 2:30 PM EST Office Visit [facility] Pulmonary, Allergy and Critical Care Medicine 10 [place] [address] Lester Hicks MD [address] [place] [address] 10/13/2025 9:20 AM EST Office Visit [facility] End[facility]inology [address] [place] [address] [place] [address] Doretha Glynn MD [address] [place] [address] [email or web address] 12/22/2025 8:30 AM EDT Office Visit [address] [place] [address] Johann Hanson CNP [address] [facility], [address] [place] [address] [email or web address] 06/30/2026 8:00 AM EDT Office Visit [address] [place] [address] Johann Hanson CNP [address] [place] [address], [address] [place] [address] [email or web address] documented as of this encounter [...] documented as of this encounter Care Teams Grain Farmer Relationship Specialty Start Date End Date Johann Hanson CNP [address] [place] [address], [address] [place] [address] PCP - General Family Medicine 02/11/21 Tricia Balderas DO 30 [place] [address] [email or web address] Historical LMR Provider 07/28/17 10/15/21 Lester Hicks MD [address] [place] [address] [email or web address] Historical LMR Provider 07/28/17 Margaux Montanez MD [address] [place] [address], [address] [place] [address] [email or web address] Historical LMR Provider 07/28/17 Demario Floyd MD [address] [place] [address] [email or web address] Historical LMR Provider 07/28/17 2 Pam Benson MD [address] [place] [address] [email or web address] Historical LMR Provider 07/28/17 Adithya Campos CNP [address] [place] [address] Historical LMR Provider 07/28/17 12/25/21 Khang Kilgore MD [address] [place] [address], [address] [place] [address] [email or web address] Insurance Assigned Provider 01/12/24 Luis Ignacio DO [address] [place] [address], [address] [place] [address] Cardiology 06/28/22 06/16/24 Flo Esteban MD [address] [place] [address] [place] [address] [email or web address] Cardiothoracic Surgery 06/28/22 06/16/24 Dilan Rowland MD [address] [place] [address], [address] [place] [address] Insurance Assigned Provider 07/15/22 08/13/22 Corby Prado MD [address] [place] [address], [address] [place] [address] Insurance Assigned Provider 08/13/22 09/16/22 Neisha Pinto RN [address] [place] [address], [address] [place] [address] [email or web address] PHCM School Examiner 02/26/23 06/10/25 Shreyas Wilson MD [address] [place] [address] Gastroenterology 06/17/24 Doretha Glynn MD [address] [place] [address] 3rd [place] [address] Endocrinology 06/17/24 Izzy Hackett [address] [place] [address] [email or web address] PHCM Community Accelerator Systems Director 09/11/24 09/11/24 Radha Pereira RN [address] [place] [id number] [email or web address] PHCM School ExaminerCyber Defense Incident Responder 06/11/25 documented as of this encounter Additional Source Comments The information contained in this document represents components of the legal health record. It is not the complete legal health record.[facility]
--- OUTSIDE RECORDS SUMMARY | 2025-07-22 08:14 | XMS_ITS | Encounter Summary ---
Author Organization [facility] Address [address] [place] [address] [place] [address] Phone Care Team Providers Care Coffee Farmer Name Role Phone Lester Hicks MD Unavailable [phone] Margaux Montanez MD Unavailable Johann Hanson CNP Primary Care Provider [phone] Khang Kilgore MD Unavailable Luis Ignacio DO Unavailable Flo Esteban MD Unavailable [phone] Corby Prado MD Unavailable [phone] Neisha Pinto RN Unavailable [email or web address] Shreyas Wilson MD Unavailable [phone] Doretha Glynn MD Unavailable [phone] Izzy Hackett Unavailable [email or web address] Radha Pereira RN Unavailable Encounter Details Date Type Department Care Team (Late st Contact Info) Description 08/15/2022 Procedure Pass [facility], Ct Scan - [address] [id number] Social History Tobacco Use Types Packs/Day Years [...] high school, GED, job training, learning the Gren[place] language, technical skills, or developing parenting skills)? [...] Description 07/22/2025 1:30 PM EDT Office Visit [facility] Family Medicine [address] [place] [address] [place] [address] Johann Hanson, TIFFANIE [address] [facility], [address] [place] [address] [email or web address] 07/23/2025 8:00 AM EDT Office Visit [facility] Rheumatology [address] [place] [address] [place] [address] Margaux Montanez MD [address] [place] [address], [address] [place] [address] [email or web address] 08/24/2025 1:30 PM EST Office Visit [address] [place] [address] Johann Hanson, ROD BUSTER HELPER [address] [place] [address], [address] [place] [address] [email or web address] 09/10/2025 9:00 AM EST Office Visit [facility] Gastroenterology Clinic [address] [place] [address] Unknown, [place], Shreyas Limon MD [address] [place] [address] 09/21/2025 2:30 PM EST Office Visit [facility] Pulmonary, Allergy and Critical Care Medicine 10 [place] [address] Lester Hicks MD [address] [place] [address] 10/13/2025 9:20 AM EST Office Visit [facility] Endocrinology [address] [place] [address] Doretha Glynn MD [address] [place] [address] [email or web address] 12/22/2025 8:30 AM EDT Office Visit [address] [place] [address] Johann Hanson, ROD BUSTER HELPER [address] [place] [address], [address] [place] [address] [email or web address] 06/30/2026 8:00 AM EDT Office Visit [facility] 22 [place] [address] Johann Hanson CNP [address] [facility], [address] [place] [address] [email or web address] documented as of this encounter [...] documented as of this encounter Care Teams Coffee Farmer Relationship Specialty Start Date End Date Johann Hanson CNP [address] [place] [address], [address] [place] [address] PCP - General Family Medicine 02/11/21 Lester Hicks MD [address] [place] [address] Historical LMR Provider 07/28/17 Margaux Montanez MD [address] [place] [address], [address] [place] [address] [email or web address] Historical LMR Provider 07/28/17 Khang Kilgore MD [address] [place] [address], [address] [place] [address] [email or web address] Insurance Assigned Provider 01/12/24 Luis Ignacio DO [address] [place] [address], [address] [place] [address] Cardiology 06/28/22 06/16/24 Flo Esteban MD [address] [place] [address] [email or web address] Cardiothoracic Surgery 06/28/22 06/16/24 Corby Prado MD [address] [place] [address], [address] [place] [address] Insurance Assigned Provider 08/13/22 09/16/22 Neisha Pinto RN [address] [place] [address], [address] [place] [address] [email or web address] PHCM Shoulder Boner 02/26/23 06/10/25 Shreyas Wilson MD [address] [place] [address] Gastroenterology 06/17/24 Doretha Glynn MD [address] [place] [address] 3rd [place] [address] Endocrinology 06/17/24 Izzy Hackett [address] [place] [address] [email or web address] PHCM Community Hand Twister 09/11/24 09/11/24 Radha Pereira, RN 10 [place] [address] [email or web address] PHCM Shoulder BonerManager Emergency Department 06/11/25 documented as of this encounter Additional Source Comments The information contained in this document represents components of the legal health record. It is not the complete legal health record.[facility]
--- OUTSIDE RECORDS SUMMARY | 2025-07-22 08:15 | XMS_ITS | Encounter Summary ---
Author Organization [facility] Address [address] [place] [address] Phone Care Team Providers Care Event Decorator And Designer Name Role Phone Lester Hicks MD Unavailable [phone] Margaux Montanez MD Unavailable Johann Hanson CNP Primary Care Provider [phone] Khang Kilgore MD Unavailable Luis Ignacio DO Unavailable Flo Esteban MD Unavailable [phone] Neisha Pinto RN Unavailable [email or web address] Shreyas Wilson MD Unavailable Doretha Glynn MD Unavailable [phone] Izzy Hackett Unavailable [email or web address] Radha Pereira RN Unavailable [phone] Encounter Details Date Type Department Care Team (Late st Contact Info) Description 10/12/2022 Procedure Pass [facility] [address] [place] [address] Social History Tobacco Use Types [...] Description 07/22/2025 1:30 PM EDT Office Visit [facility] Family Medicine [address] [place] [address] [place] [address] Johann Hanson, TIFFANIE [address] [facility], [address] [place] [address] [email or web address] 07/23/2025 8:00 AM EDT Office Visit [facility] Rheumatology [address] [place] [address] Margaux Montanez MD [address] [place] [address], [address] [place] [address] [email or web address] 08/24/2025 1:30 PM EST Office Visit [address] [place] [address] Johann Hanson, ELECTRIC DEICER ASSEMBLER [address] [place] [address], [address] [place] [address] [email or web address] 09/10/2025 9:00 AM EST Office Visit [facility] 10 [place] [address] Unknown, [place], Shreyas Limon MD [address] [place] [address] 09/21/2025 2:30 PM EST Office Visit [facility], Allergy and Critical Care Medicine 10 [place] [address] Lester Hicks MD [address] [place] [address] 10/13/2025 9:20 AM EST Office Visit [facility] 22 [place] [address] Doretha Glynn MD [address] [place] [address] 3[address] [place] [address] [email or web address] 12/22/2025 8:30 AM EDT Office Visit [address] [place] [address] Johann Hanson, ELECTRIC DEICER ASSEMBLER [address] [place] [address], [address] [place] [address] [email or web address] 06/30/2026 8:00 AM EDT Office Visit [facility] 22 [place] [address] Johann Hanson CNP 22 [facility], [address] [place] [address] [email or web address] documented as of this encounter [...] documented as of this encounter Care Teams Event Decorator And Designer Relationship Specialty Start Date End Date Johann Hanson CNP [address] [place] [address], [address] [place] [address] PCP - General Family Medicine 02/11/21 Lester Hicks MD [address] [place] [address] Historical LMR Provider 07/28/17 Margaux Montanez MD [address] [place] [address], [address] [place] [address] [email or web address] Historical LMR Provider 07/28/17 Khang Kilgore MD [address] [place] [address], [address] [place] [address] Insurance Assigned Provider 01/12/24 Luis Ignacio DO [address] [place] [address], [address] [place] [address] Cardiology 06/28/22 06/16/24 Flo Esteban MD [address] [place] [address] [email or web address] Cardiothoracic Surgery 06/28/22 06/16/24 Neisha Pinto RN [address] [place] [address] [email or web address] PHCM Real Estate Manager 02/26/23 06/10/25 Shreyas Wilson MD [address] [place] [address] Gastroenterology 06/17/24 Doretha Glynn MD [address] [place] [address] 3rd [place] [address] Endocrinology 06/17/24 Izzy Hackett [address] [place] [address] [email or web address] PHCM Community Furnace Process Supervisor 09/11/24 09/11/24 Radha Pereira, RN [address] [place] [address] PHCM Real Estate ManagerFleet Assistant 06/11/25 documented as of this encounter Additional Source Comments The information contained in this document represents components of the legal health record. It is not the complete legal health record.[facility]
--- OUTSIDE RECORDS SUMMARY | 2025-07-22 08:15 | XMS_ITS | Encounter Summary ---
Author Organization [facility] Address [address] [place] [address] Phone Care Team Providers Care Single Wire Saw Operator Name Role Phone Lester Hicks MD Unavailable [phone] Margaux Montanez MD Unavailable Johann Hanson CNP Primary Care Provider [phone] Khang Kilgore MD Unavailable [phone] Neisha Pinto RN Unavailable [email or web address] Shreyas Wilson MD Unavailable Doretha Glynn MD Unavailable [phone] Izzy Hackett Unavailable [email or web address] Radha Pereira RN Unavailable [phone] Encounter Details Date Type Department Care Team (Late st Contact Info) Description 06/17/2024 Procedure Pass [address] [address] Social History Tobacco Use Types Packs/Day Years [...] high school, GED, job training, learning the Estonian language, technical skills, or developing parenting skills)? [...] Description 07/22/2025 1:30 PM EDT Office Visit [address] [place] [address] Johann Hanson, DATA PROCESSING SYSTEMS PROJECT PLANNER [address] [place] [address], [address] [place] [address] [email or web address] 07/23/2025 8:00 AM EDT Office Visit [facility] Rheumatology [address] [place] [address] [place] [address] Margaux Montanez MD [address] [place] [address], [address] [place] [address] [email or web address] 08/24/2025 1:30 PM EST Office Visit [address] [place] [address] Johann Hanson, DATA PROCESSING SYSTEMS PROJECT PLANNER [address] [place] [address], [address] [place] [address] [email or web address] 09/10/2025 9:00 AM EST Office Visit [facility] G[facility]enterology Clinic 10 [place], [place] [id number] Unknown, Unknown, Shreyas Limon MD [address] [id number] 09/21/2025 2:30 PM EST Office Visit [facility] Pulmonary, Allergy and Critical Care Medicine 10 [facility] [address] Lester Hicks MD [address] [place] [address] 10/13/2025 9:20 AM EST Office Visit [facility] [address] [place] [address] [place] [address] Doretha Glynn MD [address] [place] [address] [email or web address] 12/22/2025 8:30 AM EDT Office Visit [address] [place] [address] Johann Hanson CNP [address] [place] [address], [address] [place] [address] [email or web address] 06/30/2026 8:00 AM EDT Office Visit [address] [place] [address] Johann Hanson CNP [address] [place] [address], [address] [place] [address] [email or web address] documented as of this encounter Visit Diagnoses Not on filedocumented in this encounter Additional Health Concerns Assessment Noted Time PHQ-9 Depression Total Score: 4 10/29/19 24 1:54 PM EST PHQ-2 Depression Total Score: 0 06/23/20 25 12:32 PM EDT documented as of this encounter Care Teams Single Wire Saw Operator Relationship Specialty Start Date End Date Johann Hanson CNP [address] [place] [address], [address] [place] [address] PCP - General Family Medicine 02/11/21 Lester Hicks MD [address] [place] [address] [email or web address] Historical LMR Provider 07/28/17 Margaux Montanez MD [address] [place] [address], [address] [place] [address] [email or web address] Historical LMR Provider 07/28/17 Khang Kilgore MD [address] [place] [address], [address] [place] [address] Insurance Assigned Provider 01/12/24 Neisha Pinto RN [address] [place] [address], [address] [place] [address] [email or web address] PHCM Mannequin Mounter 02/26/23 06/10/25 Shreyas Wilson MD [address] [place] [address] Gastroenterology 06/17/24 Doretha Glynn MD [address] [place] [address] Endocrinology 06/17/24 Izzy Hackett [address] [place] [address] [email or web address] PHCM Community Multiple Punch Press Operator 09/11/24 09/11/24 Radha Pereira, RANDI [address] [place] [address] [email or web address] PHCM Mannequin MounterClinical Trial Specialist 06/11/25 documented as of this encounter Additional Source Comments The information contained in this document represents components of the legal health record. It is not the complete legal health record.[facility]
--- OUTSIDE RECORDS SUMMARY | 2025-07-22 08:15 | XMS_ITS ---
Author Organization [facility] Address [address] [place] [address] [place] [address] Phone Care Team Providers Care Electrophysiology Tech Name Role Phone Lester Hicks MD Unavailable [phone] Margaux Montanez MD Unavailable Johann Hanson CNP Primary Care Provider [phone] Khang Kilgore MD Unavailable Shreyas Wilson MD Unavailable Doretha Glynn MD Unavailable [phone] Radha Pereira RN Unavailable Population Health Care Management (PHCM) Status:Enrolled (Active) Start date:10/23/2023 Enrollment date:10/23/2023 Current support & services provided:[facility] Related social drivers of health:Housing Stability, Child or Family Care, Education, Food, Unemployment, Paying for Meds, Paying Utility Bills, Transportation, Digital Access, SNAP/WIC Case Team Name Relationship Phone Email Radha Pereira RN Registered Nurse(Responsible Staff) [phone] Izzy Herbert PHCM Specialty Department Supervisor [email or web address] Continued Care and Services Coordination
--- OUTSIDE RECORDS SUMMARY | 2025-07-22 08:16 | XMS_ITS | Encounter Summary ---
Author Organization [facility] Address [address] [place] [address] [place] [address] Phone Care Team Providers Care Cutlery Grinder Name Role Phone Tricia Balderas DO Unavailable Lester Hicks MD Unavailable [phone] Margaux Montanez MD Unavailable Demario Floyd MD Unavailable Pam Benson MD Unavailable [phone] Adithya Campos MINE SHIFTER Unavailable Beatriz Donaldson LAMINATION INSPECTOR Unavailable Beatriz Donaldson LAMINATION INSPECTOR Primary Care Provider Mamta Whitney DO Primary Care Provider [phone] Mamta Whitney DO Primary Care Provider [phone] Johann Hanson MINE SHIFTER Primary Care Provider [phone] Khang Kilgore MD Unavailable Luis Ignacio DO Unavailable Flo Esteban MD Unavailable [phone] Dilna Rowland MD Unavailable [phone] Corby Prado MD Unavailable [phone] Neisha Pinto RN Unavailable [email or web address] Shreyas Wilson MD Unavailable [phone] Doretha Glynn MD Unavailable [phone] Izzy Hackett Unavailable [email or web address] Radha Pereira RN Unavailable Encounter Details Date Type Department Care Team (Late Contact Info) Description 05/29/2019 Telephone [facility] Pulmonary, Allergy and Critical Care Medicine [address] [place] [address] Aishwarya Vasquez MD [address] [place] [address] [email or web address] Social History Tobacco Use Types Packs/Day Years [...] Upcoming Encounters Date Type Department Care Team ([facility] [address] Contact Info) Description 07/22/2025 1:30 PM EDT Office Visit [address] [place] [address] Johann Hanson CNP [address] [place] [address], [address] [place] [address] [email or web address] 07/23/2025 8:00 AM EDT Office Visit [facility] Rheumatology [address] [place] [address] [place] [address] Margaux Montanez MD [address] [place] [address], [address] [place] [address] [email or web address] 08/24/2025 1:30 PM EST Office Visit [address] [place] [address] Johann Hanson, MINE SHIFTER [address] [place] [address], [address] [place] [address] [email or web address] 09/10/2025 9:00 AM EST Office Visit [facility] Gastroenterology Clinic 10 [place] [address] Unknown, [place], Shreyas Limon MD [address] [address] 09/21/2025 2:30 PM EST Office Visit [facility] Pulmonary, Allergy and Critical Care Medicine 10 [place] [address] Lester Hicks MD [address] [place] [address] 10/13/2025 9:20 AM EST Office Visit [facility] [address] [place] [address] [place] [address] Doretha Glynn MD [address] [place] [address] [address] [place] [address] [email or web address] 12/22/2025 8:30 AM EDT Office Visit [address] [place] [address] Johann Hanson, MINE SHIFTER [address] [place] [address], [address] [place] [address] [email or web address] 06/30/2026 8:00 AM EDT Office Visit [facility] 22 [place] [address] Johann Hanson CNP 22 [facility], [address] [place] [address] [email or web address] documented as of this encounter Visit Diagnoses Not on filedocumented in this encounter Additional Health Concerns Infection Onset Date Last Indicated Resolved Time CoV-Presumed 05/27/2022 05/27/2022 06/17/2022 1:21 AM EDT CoV-Presumed Comment:COVID-19 Added 10/12/2022 10/12/2022 10/13/2022 6:26 P M EST COVID-19 10/13/2022 10/13/2022 11/03/2022 1:21 AM EST COVID-19 10/07/2023 10/07/2023 10/28/2023 1:21 AM EST documented as of this encounter Care Teams Cutlery Grinder Relationship Specialty Start Date End Date Beatriz Donaldson NP [address] [place] [address] PCP - General Family Medicine 10/04/17 04/11/20 Mamta Whitney DO [address] [place] [address] [email or web address] PCP - General Family Medicine 04/12/20 02/08/21 Mamta Whitney DO [address] [place] [address] [email or web address] PCP - General Family Medicine 02/10/21 02/10/21 Johann Hanson CNP [address] [place] [address], [address] [place] [address] [email or web address] PCP - General Family Medicine 02/11/21 Tricia Balderas DO 30 [place] [address] [email or web address] Historical LMR Provider 07/28/17 10/15/21 Lester Hicks MD [address] [place] [address] [email or web address] Historical LMR Provider 07/28/17 Margaux Montanez MD [address] [address] [email or web address] Historical LMR Provider 07/28/17 Demario Floyd MD [address] [place] [address] [email or web address] Historical LMR Provider 07/28/17 10/15/21 Pam Benson MD [address] [place] [address] [email or web address] Historical LMR Provider 07/28/17 10/15/21 Adithya Campos, MINE SHIFTER [address] [place] [address] Historical LMR Provider 07/28/17 12/25/21 Beatriz Donaldson NP [address] [place] [address] Historical LMR Provider 07/28/17 04/11/20 Khang Kilgore MD [address] [place] [address], [address] [place] [address] [email or web address] Insurance Assigned Provider 01/12/24 Luis Ignacio DO [address] [place] [address], [address] [place] [address] Cardiology 06/28/22 06/16/24 Flo Esteban MD [address] [place] [address] [email or web address] Cardiothoracic Surgery 06/28/22 06/16/24 Dilan Rowland MD [address] [place] [address], [address] [place] [address] [email or web address] Insurance Assigned Provider 07/15/22 08/13/22 Corby Prado MD [address] [place] [address], [address] [place] [address] [email or web address] Insurance Assigned Provider 08/13/22 09/16/22 Neisha Pinto RN [address] [place] [address], [address] [place] [address] [email or web address] Attractions Associate 02/26/23 06/10/25 Shreyas Wilson MD [address] [place] [address] [email or web address] Gastroenterology 06/17/24 Doretha Glynn MD [address] [place] [address] [address] [place] [address] Endocrinology 06/17/24 Izzy Hackett [address] [place] [address] [email or web address] PHCM Community Real Estate Teacher 09/11/24 09/11/24 Radha Pereira, RANDI [address] [place] [address] [email or web address] PHCM Attractions AssociateSr. Media Manager 06/11/25 documented as of this encounter Additional Source Comments The information contained in this document represents components of the legal health record. It is not the complete legal health record.[facility]
--- OUTSIDE RECORDS SUMMARY | 2025-07-22 08:16 | XMS_ITS | Encounter Summary ---
Author Organization [facility] Address [address] [place] [address] Phone Care Team Providers Care Biomedical Service Engineer Name Role Phone Lester Hicks MD Unavailable [phone] Margaux Montanez MD Unavailable [phone] Johann Hanson CNP Primary Care Provider [phone] Khang Kilgore MD Unavailable [phone] Shreyas Wilson MD Unavailable Doretha Glynn MD Unavailable [phone] Radha Pereira RN Unavailable [phone] Reason for Visit * Reason Onset Date Comments Appointment 07/16/2025 Encounter Details Date Type Department Care Team ([facility] st Contact Info) Description 07/16/2025 Telephone [facility] Pulmonary, Allergy and Critical Care Medicine 10 [facility] [place] [address] Lester Hicks MD [address] [place] [address] [email or web address] Appointment Social History Tobacco Use Types Packs/Day Years [...] high school, GED, job training, learning the Yemeni language, technical skills, or developing parenting skills)? [...] as of this encounter Progress Notes * Joan Anguiano - 07/17/2025 2:42 PM EDT Flo goss called back Central Support Voice Over Artist (Please do not reply to this user; this inbox is not monitored.) Thank you. * Demi Hagen - 07/17/2025 9:56 AM EDT Called and LVM that I made a note on appt that pt needs pulm clearance--I asked that she call and give us her fax# so we can fax her the office note * Jenniffer Lindquist - 07/16/2025 3:55 PM EDT Flo goss called in. Pt is having a left total knee 10/20. Pt has a fuv with [facility] 09/21. Theyare wondering if this can be used as a pulm clearance. Please call Aliyah at [phone]. Ok to leavea detailed vm. Central Support Voice Over Artist (Please do not reply to this user; this inbox is not monitored.) Thank you. documented in this encounter Plan of Treatment Upcoming Encounters Date Type Department Care Team (Late st Contact Info) Description 07/22/2025 1:30 PM EDT Office Visit [facility] [address] [place] [address] Johann Hanson, LIGHT OIL OPERATOR [address] [place] [address], [address] [place] [address] [email or web address] 07/23/2025 8:00 AM EDT Office Visit [facility] Rheumatology [address] [place] [address] [place] [address] Margaux Montanez MD [address] [place] [address], [address] [place] [address] [email or web address] 08/24/2025 1:30 PM EST Office Visit [address] [place] [address] Johann Hanson, LIGHT OIL OPERATOR [address] [place] [address], [address] [place] [address] [email or web address] 09/10/2025 9:00 AM EST Office Visit [facility]enterology [facility] 10 [place] [address] Unknown, [place], Shreyas Limon MD [address] [place] [address] 09/21/2025 2:30 PM EST Office Visit [facility] Pulmonary, Allergy and Critical Care Medicine 10 [place] [address] Lester Hicks MD [address] [place] [address] 10/13/2025 9:20 AM EST Office Visit [facility] [address] [place] [address] [place] [address] Doretha Glynn MD [address] [place] [address] [email or web address] 12/22/2025 8:30 AM EDT Office Visit [address] [place] [address] Johann Hanson CNP [address] [place] [address], [address] [place] [address] [email or web address] 06/30/2026 8:00 AM EDT Office Visit [address] [place] [address] Johann Hanson CNP [address] [place] [address], [address] [place] [address] [email or web address] documented as of this encounter Visit Diagnoses Not on filedocumented in this encounter Additional Health Concerns Assessment Noted Time PHQ-9 Depression Total Score: 4 10/29/19 24 1:54 PM EST PHQ-2 Depression Total Score: 0 06/23/20 25 12:32 PM EDT documented as of this encounter Care Teams Biomedical Service Engineer Relationship Specialty Start Date End Date Johann Hanson CNP [address] [place] [address], [address] [place] [address] PCP - General Family Medicine 02/11/21 Lester Hicks MD [address] [place] [address] Historical LMR Provider 07/28/17 Margaux Montanez MD [address] [place] [address], [address] [place] [address] Historical LMR Provider 07/28/17 Khang Kilgore MD 22 [facility], [address] [place] [address] [email or web address] Insurance Assigned Provider 01/12/24 Shreyas Wilson MD [address] [place] [address] [email or web address] Gastroenterology 06/17/24 Doretha Glynn MD 22 [facility] [address] [place] [address] [email or web address] Endocrinology 06/17/24 Radha Pereira, RN [address] [place] [address] [email or web address] PHCM Circulation ManSteward/Stewardess Economy Class 06/11/25 documented as of this encounter Additional Source Comments The information contained in this document represents components of the legal health record. It is not the complete legal health record.[facility]
--- OUTSIDE RECORDS SUMMARY | 2025-07-22 08:16 | XMS_ITS | Encounter Summary ---
Author Organization [facility] Address [address] [facility] [address] [place] [address] Phone Care Team Providers Care Clinical Research Specialist Name Role Phone Lester Hicks MD Unavailable [phone] Margaux Montanez MD Unavailable Johann Hanson LANDSCAPE ARTIST Primary Care Provider [phone] Khang Kilgore MD Unavailable [phone] Shreyas Wilson MD Unavailable Doretha Glynn MD Unavailable [phone] Radha Pereira RN Unavailable Reason for Visit * Reason Onset Date Comments Lab sample 07/03/2025 Encounter Details Date Type Department Care Team (Late st Contact Info) Description 07/03/2025 Telephone [facility] [address] [place], [place] [phone] Johann Hanson, TIFFANIE [address] [facility], [address] [place], [place] [phone] [email or web address] Lab sample Social History Tobacco Use Types [...] high school, GED, job training, learning the [place]an language, technical skills, or developing parenting skills)? 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 * Dolores [...] when this should be done. Central Support Insulation Foreman (Please do not reply to this user; this inbox is not monitored.) Thank you. documented in this encounter Plan of Treatment Upcoming Encounters Date Type Department Care Team (Late st Contact Info) Description 07/22/2025 1:30 PM EDT Office Visit [facility] [place] [address] [place] [address] Johann Hanson, LANDSCAPE ARTIST [address] [place] [address], [address] [place] [address] [email or web address] 07/23/2025 8:00 AM EDT Office Visit [facility] Rheumatology [address] [place] [address] Margaux Montanez MD [address] [place] [address], [address] [place] [address] [email or web address] 08/24/2025 1:30 PM EST Office Visit [address] [place] [address] Johann Hanson, LANDSCAPE ARTIST [address] [place] [address], [address] [place] [address] [email or web address] 09/10/2025 9:00 AM EST Office Visit [facility] 10 [place] [address] Unknown, [place], Shreyas Limon MD [address] [place] [address] 09/21/2025 2:30 PM EST Office Visit [facility] Pulmonary, Allergy [facility] Critical [facility] Medicine 10 [place] [address] Lester Hicks MD [address] [place] [address] 10/13/2025 9:20 AM EST Office Visit [facility] [address] [place] [address] Doretha Glynn MD [address] [place] [address] [email or web address] 12/22/2025 8:30 AM EDT Office Visit [address] [place] [address] Johann Hanson CNP [address] [place] [address], [address] [place] [address] [email or web address] 06/30/2026 8:00 AM EDT Office Visit [address] [place] [address] Johann Hanson CNP [address] [place] [address], [address] [place] [address] [email or web address] documented as of this encounter Visit Diagnoses Not on filedocumented in this encounter Additional Health Concerns Assessment Noted Time PHQ-9 Depression Total Score: 4 10/29/19 24 1:54 PM EST PHQ-2 Depression Total Score: 0 06/23/20 25 12:32 PM EDT documented as of this encounter Care Teams Clinical Research Specialist Relationship Specialty Start Date End Date Johann Hanson CNP [address] [place] [address], [address] [place] [address] PCP - General Family Medicine 02/11/21 Lester Hicks MD [address] [place] [address] Historical LMR Provider 07/28/17 Margaux Montanez MD [address] [place] [address], [address] [place] [address] Historical LMR Provider 07/28/17 Khang Kilgore MD [address] [facility] [place] [address] [email or web address] Insurance Assigned Provider 01/12/24 Shreyas Wilson MD [address] [place] [address] Gastroenterology 06/17/24 Doretha Glynn MD [address] [place] [address] [address] [place] [address] Endocrinology 06/17/24 Radha Pereira, RANDI [address] [place] [address] [email or web address] PHCM Lubrication SupervisorSolder Sprayer 06/11/25 documented as of this encounter Additional Source Comments The information contained in this document represents components of the legal health record. It is not the complete legal health record.[facility]
--- OUTSIDE RECORDS SUMMARY | 2025-07-22 08:16 | XMS_ITS | Encounter Summary ---
Author Organization [facility] Address [address] [place] [address] [place] [address] Phone Care Team Providers Care Transformation Lead Name Role Phone Tricia Balderas DO Unavailable Lester Hicks MD Unavailable [phone] Margaux Montanez MD Unavailable Demario Floyd MD Unavailable Pam Benson MD Unavailable [phone] Adithya Campos MOTORCYCLE ASSEMBLER Unavailable Beatriz Donaldson CUT OUT MARKER Unavailable Beatriz Donaldson CUT OUT MARKER Primary Care Provider Mamta Whitney DO Primary Care Provider [phone] Mamta Whitney DO Primary Care Provider [phone] Johann Hanson MOTORCYCLE ASSEMBLER Primary Care Provider [phone] Khang Kilgore MD Unavailable Luis Ignacio DO Unavailable Flo Esteban MD Unavailable [phone] Dilan Rowland MD Unavailable [phone] Corby Prado MD Unavailable [phone] Neisha Pinto RN Unavailable [email or web address] Shreyas Wilson MD Unavailable Doretha Glynn MD Unavailable [phone] Izzy Hackett Unavailable sami Radha Pereira RN Unavailable [phone] Encounter Details Date Type Department Care Team (Late st Contact Info) Description 01/10/2019 Procedure Pass [facility] [address] [place] [address] Social History Tobacco Use Types Packs/Day Years [...] Description 07/22/2025 1:30 PM EDT Office Visit [address] [place] [address] Johann Hanson, TIFFANIE [address] [place] [address], [address] [place] [address] [email or web address] 07/23/2025 8:00 AM EDT Office Visit [facility] Rheumatology [address] [place] [address] [place] [address] Margaux Montanez MD [address] [place] [address], [address] [place] [address] [email or web address] 08/24/2025 1:30 PM EST Office Visit [address] [place] [address] Johann Hanson, MOTORCYCLE ASSEMBLER [address] [place] [address], [address] [place] [address] [email or web address] 09/10/2025 9:00 AM EST Office Visit [facility] Gastroenterology Clinic 10 [place] [address] Unknown, [place], Shreyas Limon MD [address] [address] 09/21/2025 2:30 PM EST Office Visit [facility] Allergy [facility] Critical Care Medicine 10 [place] [address] Lester Hicks MD [address] [place] [address] 10/13/2025 9:20 AM EST Office Visit [facility] [address] [place] [address] [place] [address] Doretha Glynn MD [address] [place] [address] [email or web address] 12/22/2025 8:30 AM EDT Office Visit [address] [place] [address] Johann Hanson CNP [address] [place] [address], [address] [place] [address] [email or web address] 06/30/2026 8:00 AM EDT Office Visit [address] [place] [address] Johann Hanson, MOTORCYCLE ASSEMBLER [address] [place] [address], [address] [place] [address] [email or web address] documented as of this encounter Visit Diagnoses Not on filedocumented in this encounter Additional Health Concerns Infection Onset Date Last Indicated Resolved Time CoV-Presumed 05/27/2022 05/27/2022 06/17/2022 1:21 AM EDT CoV-Presumed Comment:COVID-19 Added 10/12/2022 10/12/2022 10/13/2022 6:26 P M EST COVID-19 10/13/2022 10/13/2022 11/03/2022 1:21 AM EST COVID-19 10/07/2023 10/07/2023 10/28/2023 1:21 AM EST documented as of this encounter Care Teams Transformation Lead Relationship Specialty Start Date End Date Beatriz Donaldson NP [address] [place] [address] PCP - General Family Medicine 10/04/17 04/11/20 Mamta Whitney DO [address] [place] [address] [email or web address] PCP - General Family Medicine 04/12/20 02/08/21 Mamta Whitney DO [address] [place] [address] [email or web address] PCP - General Family Medicine 02/10/21 02/10/21 Johann Hanson CNP [address] [facility], [address] [place] [address] [email or web address] PCP - General Family Medicine 02/11/21 Tricia Balderas DO [address] [place] [address] [email or web address] Historical LMR Provider 07/28/17 10/15/21 Lester Hicks MD [address] [place] [address] [email or web address] Historical LMR Provider 07/28/17 Margaux Montanez MD [address] [place] [address], [address] [place] [address] [email or web address] Historical LMR Provider 07/28/17 Demario Floyd MD [address] [place] [address] [email or web address] Historical LMR Provider 07/28/17 10/15/21 Pam Benson MD [address] [place] [address] Historical LMR Provider 07/28/17 10/15/21 Adithya Campos MOTORCYCLE ASSEMBLER [address] [place] [address] Historical LMR Provider 07/28/17 12/25/21 Beatriz Donaldson, CUT OUT MARKER [address] [place] [address] Historical LMR Provider 07/28/17 04/11/20 Khang Kilgore MD [address] [place] [address], [address] [place] [address] Insurance Assigned Provider 01/12/24 Luis Ignacio DO [address] [place] [address], [address] [place] [address] Cardiology 06/28/22 06/16/24 Flo Esteban MD [address] [place] [address] [email or web address] [email or web address] Surgery 06/28/22 06/16/24 Dilan Rowland MD [address] [place] [address], [address] [place] [address] [email or web address] Insurance Assigned Provider 07/15/22 08/13/22 Corby Prado MD [address] [place] [address], [address] [place] [address] [email or web address] Insurance Assigned Provider 08/13/22 09/16/22 Neisha Pinto, RANDI [address] [place] [address], [address] [place] [address] [email or web address] Compressor Operator Portable 02/26/23 06/10/25 Shreyas Wilson MD [address] [place] [address] [email or web address] Gastroenterology 06/17/24 Doretha Glynn MD [address] [place] [address] [address] [place] [address] [email or web address] Endocrinology 06/17/24 Izzy Hackett [address] [place] [address] [email or web address] PHCM Community Strip Machine Tender 09/11/24 09/11/24 Rahda Pereira, RN [address] [place] [address] [email or web address] PHCM Compressor Operator PortableGuideman 06/11/25 documented as of this encounter Additional Source Comments The information contained in this document represents components of the legal health record. It is not the complete legal health record.[facility]
--- OUTSIDE RECORDS SUMMARY | 2025-07-22 08:16 | XMS_ITS | Encounter Summary ---
Author Organization [facility] Address [address] [facility] [address] [place] [address] Phone Care Team Providers Care Sample Finisher Name Role Phone Lester Hicks MD Unavailable [phone] Margaux Montanez MD Unavailable [phone] Johann Hanson CNP Primary Care Provider [phone] Khang Kilgore MD Unavailable Neisha Pinto RN Unavailable [email or web address] Shreyas Wilson MD Unavailable Doretha Glynn MD Unavailable [phone] Radha Pereira RN Unavailable [phone] Reason for Visit * Reason Comments Medication Refill Encounter Details Date Type Department Care Team (Late st Contact Info) Description 06/05/2025 Refill [facility] Rheumatology [address] [place], [place] [phone] Margaux Montanez MD [address] [facility], [address] [place] [address] [email or web address] Medication Refill Social History Tobacco Use Types [...] high school, GED, job training, learning the Niuean language, technical skills, or developing parenting skills)? [...] Description 07/22/2025 1:30 PM EDT Office Visit [address] [place] [address] Johann Hanson, STOCK PATCH SAWYER [address] [place] [address], [address] [place] [address] [email or web address] 07/23/2025 8:00 AM EDT Office Visit [facility] Rheumatology [address] [place] [address] [place] [address] Margaux Montanez MD [address] [place] [address], [address] [place] [address] [email or web address] 08/24/2025 1:30 PM EST Office Visit [address] [place] [address] Johann Hanson, STOCK PATCH SAWYER [address] [place] [address], [address] [place] [address] [email or web address] 09/10/2025 9:00 AM EST Office Visit [facility] Gastroenterology Clinic 10 [place] [address] Unknown, [place], Shreyas Limon MD [address] [facility] 2 [place] [address] 09/21/2025 2:30 PM EST Office Visit [facility] Pulmonary, Allergy and Critical Care Medicine 10 [facility] [place] [address] Lester Hicks MD 10 [facility] 2nd [place] [address] 10/13/2025 9:20 AM EST Office Visit [facility] [address] [place] [address] Doretha Glynn MD [address] [place] [address] [email or web address] 12/22/2025 8:30 AM EDT Office Visit [address] [place] [address] Johann Hanson, STOCK PATCH SAWYER [address] [place] [address], [address] [place] [address] [email or web address] 06/30/2026 8:00 AM EDT Office Visit [address] [place] [address] Johann Hanson, STOCK PATCH SAWYER [address] [place] [address], [address] [place] [address] [email or web address] documented as of this encounter Visit Diagnoses Diagnosis Inflammatory arthritis Unspecified inflammatory polyarthropathy documented in this encounter Additional Health Concerns Assessment Noted Time PHQ-9 Depression Total Score: 4 10/29/19 24 1:54 PM EST PHQ-2 Depression Total Score: 0 06/10/20 24 9:22 AM EDT documented as of this encounter Care Teams Sample Finisher Relationship Specialty Start Date End Date CarmenJohann evans CNP [address] [place] [address], [address] [place] [address] [email or web address] PCP - General Family Medicine 02/11/21 Lester Hicks MD [address] [place] [address] Historical LMR Provider 07/28/17 Margaux Montanez MD [address] [place] [address], [address] [place] [address] [email or web address] Historical LMR Provider 07/28/17 Khang Kilgore MD [address] [place] [address], [address] [place] [address] Insurance Assigned Provider 01/12/24 Neisha Pinto RN [address] [place] [address], [address] [place] [address] [email or web address] PHCM Master Sonar Technician 02/26/23 06/10/25 Shreyas Wilson MD [address] [place] [address] [email or web address] Gastroenterology 06/17/24 Doretha Glynn MD [address] [place] [address] [email or web address] Endocrinology 06/17/24 Radha Pereira, RN [address] [place] [address] [email or web address] PHCM Master Sonar TechnicianAcute Care Certified Nursing Assistant 06/11/25 documented as of this encounter Additional Source Comments The information contained in this document represents components of the legal health record. It is not the complete legal health record.[facility]
== END ==
LOC: HO.CARD 08:01
PROVIDERS: PCP Nurse Practitioner Adult Health; Visit Provider Nurse Practitioner Adult Health
DX: I10 Essential (primary) hypertension (principal); Z79.899 Other long term (current) drug therapy
CPT/HCPCS: 93306; Q9957

== ENCOUNTER → 2025-07-22 08:04 | Outpatient (BNV) | payer OTHER, SELFPAY | PROVIDERS: PCP Nurse Practitioner Adult Health; Visit Provider Internal Medicine Cardiovascular Disease | DX: I35.0 Nonrheumatic aortic (valve) stenosis (principal); I35.8 Other nonrheumatic aortic valve disorders; I34.81 Nonrheumatic mitral (valve) annulus calcification | CPT/HCPCS: 93306 ==

== ENCOUNTER 2025-08-05 15:25 | Outpatient (AMB) | payer OTHER, SELFPAY ==
--- OUTSIDE RECORDS SUMMARY | 2021-10-10 18:00 | XMS_ITS | Encounter Summary ---
Author Organization [facility] Address [address] [place] [address] [place] [address] Phone Care Team Providers Care Dubbing Machine Operator Name Role Phone Tricia Balderas Unavailable Lester Hicks MD Unavailable [phone] Margaux Montanez MD Unavailable [phone] Demario Floyd MD Unavailable Pam Benosn MD Unavailable Adithya Campos GUEST EXPERIENCE CAPTAIN Unavailable [phone] Johann Hanson CNP Primary Care Provider [phone] Encounter Details Date Type Department Care Team (Late st Contact Info) Description 10/10/2021 5:00 PM EST Hospital Encounter [facility] 12 [place] [address] Natacha Hernandez CNP 12 [place], [place] [phone] [email or web address] Social History Tobacco Use Types Packs/Day Years [...] high school, GED, job training, learning the Iraqi language, technical skills, or developing parenting skills)? [...] 12/07/2022 9:18 AM Alise Hamilton RN * [place] Suicide Severity Rating Scale (Screener/Recent Self-Report) Question [...] Description 08/24/2025 1:30 PM EST Office Visit [facility] [address] [place] [address] Johann Hanson, GUEST EXPERIENCE CAPTAIN [address] [place] [address], [address] [place] [address] [email or web address] 09/10/2025 9:00 AM EST Office Visit [facility] Gastro[facility]ology Clinic 10 [place] [address] Unknown, Unknown, Shreyas Limon MD [address] [place] [address] 09/21/2025 2:30 PM EST Office Visit [facility] Pulmonary, Allergy and Critical Care Medicine 10 [facility] [place] [address] Lester Hicks MD [address] [place] [address] 10/13/2025 9:20 AM EST Office Visit [facility] [address] [place] [address] Doretha Glynn MD [address] [place] [address] [email or web address] 12/22/2025 8:30 AM EDT Office Visit [address] [place] [address] Johann Hanson, GUEST EXPERIENCE CAPTAIN [address] [place] [address], [address] [place] [address] [email or web address] 06/30/2026 8:00 AM EDT Office Visit [address] [place] [address] Johann Hanson, GUEST EXPERIENCE CAPTAIN [address] [place] [address], [address] [place] [address] [email or web address] documented as of this encounter [...] body heights. Increased anterolisthesis of L4 on I7mblvx 2008, likely secondary to facet degenerative changes. Natacha Hernandez GUEST EXPERIENCE CAPTAIN IMG XR SPINE Final Resul t documented [...] documented as of this encounter Care Teams Dubbing Machine Operator Relationship Specialty Start Date End Date Johann Hanson CNP [address] [place] [address], [address] [place] [address] [email or web address] PCP - General Family Medicine 02/11/21 Tricia Balderas DO 30 [place] [address] [email or web address] Historical LMR Provider 07/28/17 10/15/21 Lester Hicks MD [address] [place] [address] [email or web address] Historical LMR Provider 07/28/17 Margaux Montanez MD [address] [address] [email or web address] Historical LMR Provider 07/28/17 Demario Floyd MD [address] [place] [address] [email or web address] Historical LMR Provider 07/28/17 2 Pam Benson MD [address] [address] Historical LMR Provider 07/28/17 Adithya Campos, TIFFANIE [address] [place] [address] Historical LMR Provider 07/28/17 12/25/21 documented as of this encounter Additional Source Comments The information contained in this document represents components of the legal health record. It is not the complete legal health record.[facility]
--- NOTE | 2025-08-05 15:49 | MHC.OFFVIS ---
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 w/NE 10/20/25 Intake Note: archivist [employer]/chalice/pre-op LTKA w/ne 10/20/25 Accompanied by: Self / Same As Patient Allergies celecoxib (From Celebrex) Allergy (Verified 07/13/25 08:49) Hives codeine Allergy (Verified 07/13/25 08:49) Vomiting cephalexin (From Keflex) Adverse Reaction (Verified 07/13/25 08:49) Unknown metoclopramide (From Reglan) Adverse Reaction (Verified 07/13/25 08:49) Agitated Medication List - Last Reconciled 08/05/25 by Dustin Buckley MD budesonide-formoterol 160-4.5 mcg/actuation inhalation ergocalciferol (vitamin D2) (Vitamin D2) 1,250 mcg PO QWEEK escitalopram oxalate 10 mg PO DAILY famotidine 40 mg PO BID folic acid PO gabapentin mg PO hydrochlorothiazide 25 mg PO DAILY hydroxychloroquine 200 mg PO BID ipratropium bromide intranasal levothyroxine 150 mcg PO DAILY lorazepam mg PO losartan 100 mg PO DAILY methotrexate sodium (PF) mg subcut QWEEK montelukast 10 mg PO DAILY ondansetron 4 mg PO Q8H 3 days pantoprazole 40 mg PO BID pilocarpine HCl mg PO sodium hyaluronate (viscosup) (Euflexxa) mg intra-articular tramadol 50 mg PO TID PRN trazodone 50 - 150 mg PO BEDTIME PRN triamcinolone acetonide 0.1% dental DAILY HPI Comments Details: 65-year-old lady who is here for perioperative cardiovascular risk assessment. She is in need of left knee surgery. She has significant symptoms and pain. She has background history of lupus and has been taking Plaquenil and methotrexate. She recently had a flare and required prednisone. Last year was approximately 6 months ago and she has not been using steroids regularly. She walks 5000 steps a day. She also does stent to 50 minutes of stationary bike without any significant symptoms. Blood pressure is well controlled. Echo and EKGs reviewed. [facility] Medical History Sjogrens syndrome Lupus (systemic lupus erythematosus) Surgical History H/O hernia repair Review of Systems Const Denies chills, Denies fatigue, Denies fever(s), Denies frequent falls, Denies weakness, Denies weight gain and Denies weight loss ENT Denies dizziness Card Denies chest pain, Denies leg edema, Denies lightheadedness, Denies palpitations, Denies dyspnea, Denies dyspnea on exertion and Denies orthopnea Resp Denies cough, Denies dyspnea and Denies dyspnea on exertion GI Denies bloating and Denies change in bowel habits Musc Denies muscle weakness, Denies numbness and Denies tingling Neuro Denies dizziness, Denies frequent falls, Denies numbness, Denies tingling and Denies weakness Endo Denies fatigue and Denies palpitations Physical Exam Vital Signs: BMI result Body Mass Index 32.3 GENERAL APPEARANCE: in no acute distress, pleasant. NECK: no carotid bruit, no jugular venous distention. SKIN: no suspicious lesions, warm and dry. HEART: Ejection systolic murmur aortic area with normal 2nd heart sound, regular rate and rhythm. LUNGS: clear to auscultation bilaterally. ABDOMEN: soft, nontender. EXTREMITIES: no edema. Left knee in a brace. PERIPHERAL PULSES: equal. NEUROLOGIC: No gross deficits, AAO X 3 Office Procedures EKG Details: Sinus rhythm 74 beats per minute, normal axis, premature ventricular complexes, nonspecific T-wave changes in the inferior and lateral leads, QTC 450 milliseconds [id number], Complete Results Reviewed Results Reviewed: Echocardiography done on 07/22/2025 showing EF 60 65% with grade 1 diastolic dysfunction, mild calcification of aortic and mitral valve with mild aortic stenosis. Mean gradient 9 mm Hg. Normal right ventricular cavity size and function. No pulmonary hypertension. No pericardial effusion. Assessment & Plan Assessment & Plan (1) Primary osteoarthritis of left knee: Code(s): M17.12 - Unilateral primary osteoarthritis, left knee Category: Medical (2) Preop cardiovascular exam: Code(s): Z01.810 - Encounter for preprocedural cardiovascular examination Category: Medical Plan Pleasant 65 year lady with background history of lupus, hypertension and left knee osteoarthritis here for perioperative cardiovascular risk assessment. She has no symptoms in her day-to-day life. Blood pressure is well controlled. ECHO has shown grade 1 diastolic dysfunction and mild aortic valve stenosis. I think she can proceed with knee replacement with intermediate risk for perioperative complications. Thank you for allowing me to participate in the care of your patient. Please feel free to contact me if you have any questions. Coding Level of Care Code Procedure Only Diagnoses Primary osteoarthritis of left knee M17.12 Preop cardiovascular exam Z01.810 CPT Codes EKG - CPT: [id number], Complete ([id number])
[2025-08-05 15:51] VITALS: BP 124/62; PULSE 75; BMI 32.3
--- OUTSIDE RECORDS SUMMARY | 2025-08-05 19:46 | XMS_ITS | Encounter Summary ---
Author Organization [facility] Address [address] [place] [id number] Phone Care Team Providers Care Security Specialist Name Role Phone Lester Hicks MD Unavailable [phone] Margaux Montanez MD Unavailable Johann Hanson CNP Primary Care Provider [phone] Khang Kilgore MD Unavailable Luis Ignacio DO Unavailable Flo Esteban MD Unavailable [phone] Neisha Pinto RN Unavailable [email or web address] Shreyas Wilson MD Unavailable Doretha Glynn MD Unavailable [phone] Izzy Hackett Unavailable [email or web address] Radha Pereira RN Unavailable Encounter Details Date Type Department Care Team (Late st Contact Info) Description 12/22/2022 Procedure Pass [facility], [address] [id number] Social History Tobacco Use Types Packs/Day Years [...] Description 08/24/2025 1:30 PM EST Office Visit [facility] [address] [place] [address] Johann Hanson, TIFFANIE [address] [facility], [address] [place] [address] [email or web address] 09/10/2025 9:00 AM EST Office Visit [facility] [address] [place] [address] Unknown, Unknown, Shreyas Limon MD [address] [facility] 2 [place] [address] 09/21/2025 2:30 PM EST Office Visit [facility] [address] [facility] [place] [address] Lester Hicks MD [address] [place] [phone] 10/13/2025 9:20 AM EST Office Visit [facility] [address] [place] [address] Doretha Glynn MD [address] [place] [address] [email or web address] 12/22/2025 8:30 AM EDT Office Visit [address] [place] [address] Johann Hanson, TOXICS PROGRAM OFFICER [address] [place] [address], [address] [place] [address] [email or web address] 06/30/2026 8:00 AM EDT Office Visit [address] [place] [address] Johann Hanson, TOXICS PROGRAM OFFICER [address] [place] [address], [address] [place] [address] [email or web address] documented as of this encounter Visit Diagnoses Not on filedocumented in this encounter Additional Health Concerns Infection Onset Date Last Indicated Resolved Time COVID-19 10/07/2023 10/07/2023 10/28/2023 1:21 AM EST Assessment Noted Time PHQ-2 Depression Total Score: 0 01/01/20 1:26 PM EDT documented as of this encounter Care Teams Security Specialist Relationship Specialty Start Date End Date CarmenJohann evans CNP [address] [place] [address], [address] [place] [address] [email or web address] PCP - General Family Medicine 02/11/21 Lester Hicks MD [address] [place] [address] [address] [place] [address] [email or web address] Historical LMR Provider 07/28/17 Margaux Montanez MD [address] [place] [address], [address] [place] [address] [email or web address] Historical LMR Provider 07/28/17 Khang Kilgore MD [address] [place] [address], [address] [place] [address] [email or web address] Insurance Assigned Provider 01/12/24 Luis Ignacio DO [address] [place] [address], [address] [place] [address] Cardiology 06/28/22 06/16/24 Flo Esteban MD [address] [place], [place] [address] [place] [address] [email or web address] Cardiothoracic Surgery 06/28/22 06/16/24 Neisha Pinto RN [address] [place], [place] [address] [place] [address] [email or web address] PHCM Assessment Technician 02/26/23 06/10/25 Shreyas Wilson MD NPI: [id number] [place] [id number] Gastroenterology 06/17/24 Doretha Glynn MD [address] [place] [address] Endocrinology 06/17/24 Izzy Hackett [address] [place] [address] [email or web address] PHCM Community Wool Cleaner 09/11/24 09/11/24 Radha Pereira RN [address] [place] [address] [email or web address] PHCM Assessment TechnicianCut Off Operator Scorer 06/11/25 documented as of this encounter Additional Source Comments The information contained in this document represents components of the legal health record. It is not the complete legal health record.[facility]
--- OUTSIDE RECORDS SUMMARY | 2025-08-05 19:46 | XMS_ITS | Clinical Summary ---
Author Organization [facility] Address [address] [place] [address] Care Team Providers Care After School Driver Name Role Phone Unavailable Primary Care Provider [...]
--- OUTSIDE RECORDS SUMMARY | 2025-08-05 19:46 | XMS_ITS | Clinical Summary ---
Author Organization [facility] Address [address] [place] [address] Phone Care Team Providers Care Filter Tender Name Role Phone Lester Hicks MD Unavailable [phone] Margaux Montanez MD Unavailable [phone] Eunice Sanz CNP Primary Care Provider [phone] Khang Kilgore MD Unavailable [phone] Shreyas Murphy MD Unavailable [phone] Doretha Glynn MD Unavailable [phone] Radha Pereira RN Unavailable Allergies Active [...] a day. 360 mL 5 023 Active cyclobenzaprine (FLEXERIL) 5 MG tabletIndications :Muscle [...] folic acid (FOLVITE) 1 MG tabletIndications :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, residential, current use TAKE 1 TABLET BY MOUTH [...] at bedtime. 270 tablet 3 025 Active levothyroxine (SYNTHROID, LEVOTHROID) 150 MCG [...] (PLAQUENIL) 200 mg tabletIndications :Inflammatory arthritis,Methotr exate, oysterman, current use,Primary osteoarthritis involving multiple joints,Sjogren's syndrome with lung involvement TAKE ONE (1) TABLET BY MOUTH TWICE DAILY 180 tablet 3 025 Active losartan (COZAAR) 100 MG tabletIndications [...] location in comments). 90 tablet 025 Active ondansetron (ZOFRAN-ODT) 4 MG disintegrating tablet Take 4 mg by mouth as needed. 025 Active TIRZEPATIDE, WEIGHT LOSS, SUBQ Inject 0.44 mL under the skin once a week. 025 Active budesonide-formot modesta 160-4.5 mcg/actuation inhaler INHALE 2 PUFFS INTO THE LUNGS 2 (TWO) TIMES A DAY. 10.2 g 5 025 Active gabapentin (NEURONTIN) 600 MG tabletIndications :Primary osteoarthritis involving multiple joints TAKE 2 TABLETS (1200MG) BY MOUTH EACH MORNING AND AT BEDTIME 360 tablet 1 025 Active methotrexate sodium, PF, 25 mg/mL injectionIndicati ons:Inflammatory arthritis INJECT 0.8ML (20MG) UNDER THE SKIN EVERY 7 DAYS DIRECTED *DISCARD REMAINDER OF VIAL AFTER OPENING* 8 mL 1 025 Active BD SAFETYGLIDE TB REG BEVEL 1 mL 27 x 1/2 SyrgIndications:M ethotrexate, oysterman, current use USE DIRECTED TO INJECT UNDER THE SKIN EVERY 7 DAYS 25 each 2 025 Active buPROPion (WELLBUTRIN XL) 150 MG ER 24 hr tabletIndications :Anxiety and depression Take 3 tablets (450 mg total) by mouth daily. 270 tablet 1 021 2021 Discontinued sertraline (ZOLOFT) 100 MG tablet Take 1 tablet (100 mg total) by mouth daily. 90 tablet 1 021 2021 Discontinued syringe with needle (BD SAFETYGLIDE TB REG BEVEL) 1 mL 27 x 1/2 SyrgIndications:M ethotrexate, oysterman, current use Inject 1 each under the skin every 7 days. 25 each 1 024 2024 Discontinued gabapentin (NEURONTIN) 600 MG tabletIndications :Primary osteoarthritis involving multiple joints TAKE 2 TABLETS (1200MG) BY MOUTH EACH MORNING AND AT BEDTIME 360 tablet 1 025 2024 Discontinued(R eorder) methotrexate sodium, PF, 25 mg/mL injectionIndicati ons:Inflammatory arthritis INJECT 0.8ML (20MG) UNDER THE SKIN EVERY 7 DAYS DIRECTED *DISCARD REMAINDER OF VIAL AFTER OPENING* 8 mL 1 025 2024 Discontinued(R eorder) Hospital, Clinic, or Other Facility Administered Medication [...] comorbidity and body mass index (BMI) of 31.0 to 31.9 in adult 07/23/2025 Assessment & Plan (07/23/2025 8:36 AM EDT): Congratulations on losing 14 pounds from 195 on 03/19/2025 down to 181 today and keep it off. Continue diligent portion control. Limit concentrated sugars, saturated fats and calories in the diet. Keep well-hydrated. If unable to achieve expected goal consider formal dietary/nutritional support. Primary osteoarthritis of both knees 03/19/2025 Assessment & Plan (07/22/2025 2:20 PM EDT): She will have left knee surgery in the new year and I will see her next month for the pre-operative visit. Assessment & Plan (06/24/2025 9:03 AM EDT): [...] Vitamin D insufficiency 06/06/2024 Assessment & Plan (07/23/2025 8:02 AM EDT): Continue weekly vitamin D 50,000 units to keep it in optimal serum range: 40-45 ng/ml. Assessment & Plan (03/19/2025 9:10 AM EDT): [...] gain. 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 Given active and chronic GI symptoms, I [...] pain and has an orthopedics consult at [facility] this week. She is up to date [...] her to contact Long COVID clinic at [facility] for advice. Mouth sores 03/20/2022 Assessment & Plan (04/04/2022 11:17 AM EDT): Avoid spicy and acidic foods. Proper hydration. Diligent mouth hygiene. Use lysine 500 mg twice daily and topical product from her dentist as prescribed PTSD (post-traumatic stress disorder) 10/03/2021 Assessment & Plan (07/23/2025 8:06 AM EDT): She continues every 2 weeks personal psychotherapy and finds it very rewarding. She has the same therapist x 13 years! Assessment & Plan (06/06/2024 12:50 PM EDT): She continues every 2 weeks personal psychotherapy and finds it very rewarding. She has the same therapist x 13 years! Assessment & Plan (02/28/2022 12:25 PM EDT): I am hoping that the beta-bladimir will also have a positive effect on her anxiety. SLE-Sjogren overlap syndrome 10/21/2020 Assessment & Plan (07/23/2025 8:00 AM EDT): Clinically and laboratory childers stable [...] Avoid falls, injuries, overuse. Assessment & Plan (06/24/2025 9:03 AM EDT): [...] recent labs from late July 2024 at [facility] quite stable on current regimen. Get labs [...] most recent labs from July 2024 at [facility] quite stable on current regimen. Get labs [...] thyroid hormone. Will communicate about labs through [facility]. Reviewed symptoms of under and over replacement, patient to call if concerns. Follow-up in 6 months Assessment & Plan (04/23/2023 4:46 PM EDT): Establish care with endocrinology this fall as scheduled. For now, continue current dose of levothyroxine as last TSH was improved and she has not symptoms of over- or under-repletion. Assessment & Plan (07/22/2022 11:05 PM EDT): Close follow-up with treating operations dispatcher exactly as instructed to keep her thyroid function within the optimal range. Assessment & Plan (04/04/2022 11:15 AM EDT): Close follow-up with treating operations dispatcher exactly as instructed to keep her thyroid [...] therapy and follow-up as scheduled with her operations dispatcher. Assessment & Plan (08/22/2020 6:54 PM EST): Carefully continue current dose of thyroid replacements therapy and follow-up as scheduled with her operations dispatcher. Assessment & Plan (05/09/2020 4:52 PM EDT): Carefully continue current dose of thyroid replacements therapy and follow-up as scheduled with her operations dispatcher. Assessment & Plan (12/18/2019 11:01 AM EDT): [...] TSH on 08/08/2019 was suppressed at 0.05 CA U/mL. I do not know when her [...] three months. Fibromyalgia 11/14/2018 Assessment & Plan (07/23/2025 8:01 AM EDT): Carefully continue regular relaxation, meditation, positive imagery, DNRS etc. Remain on gabapentin as prescribed. Sleep hygiene. Balance rest and activity. Proper hydration. Well-balanced nutritionally diet. Keep up-to-date with age-appropriate screenings and preventive strategies. Follow mindfulness approach strategies as described in book written by Dr Landon Lion catastrophe living Assessment & Plan (11/28/2023 8:05 AM EST): [...] [facility] catastrophe living Assessment & Plan (09/11/2019 8:45 [...] use of Plaquenil 03/27/2018 Assessment & Plan (07/23/2025 8:01 AM EDT): Daily sun protection. See table lever operator as scheduled at least every 12 months.-Most recent checkup from February 2025 Free of signs of Plaquenil toxicity She is arranging for ophthalmologic checkup in the nearest future. Assessment & Plan (03/19/2025 9:53 AM EDT): Daily sun protection. See table lever operator as scheduled at least every 12 months.-Most recent checkup from February 2025 Free of signs of Plaquenil toxicity She is arranging for ophthalmologic checkup in the nearest future. Assessment & Plan (12/18/2024 1:02 PM EDT): Daily sun protection. See table lever operator as scheduled at least every 12 months. She is arranging for ophthalmologic checkup in the nearest future. Assessment & Plan (10/03/2024 7:03 PM EST): Daily sun protection. See table lever operator as scheduled at least every 12 months. She is arranging for ophthalmologic checkup in the nearest future. Assessment & Plan (06/06/2024 12:49 PM EDT): Daily sun protection. See table lever operator as scheduled at least every 12 months. She is arranging for ophthalmologic checkup in the nearest future. Assessment & Plan (03/23/2024 12:09 PM EDT): Daily sun protection. See table lever operator as scheduled at least every 12 months. Assessment & Plan (11/28/2023 9:30 AM EST): Daily sun protection. See table lever operator as scheduled at least every 12 months. Assessment & Plan (05/04/2023 2:51 PM EDT): Daily sun protection. See table lever operator as scheduled at least every 12 months. Assessment & Plan (10/30/2022 3:44 PM EST): Daily sun protection. See table lever operator as scheduled at least every 12 months. Assessment & Plan (06/28/2022 4:12 PM EDT): Daily sun protection. See table lever operator as scheduled at least every 12 months. Assessment & Plan (04/04/2022 11:18 AM EDT): Daily sun protection. See table lever operator as scheduled at least every 12 months. Assessment & Plan (12/07/2021 4:45 PM EST): Daily sun protection. See table lever operator as scheduled. Assessment & Plan (09/08/2021 3:46 PM EST): Daily sun protection. See table lever operator as scheduled. Assessment & Plan (05/25/2021 4:46 PM EDT): Daily sun protection. See table lever operator as scheduled. Assessment & Plan (03/24/2021 11:21 AM EDT): Daily sun protection. See table lever operator as scheduled. Assessment & Plan (01/12/2021 4:02 PM EDT): Daily sun protection. See table lever operator as scheduled. Assessment & Plan (10/24/2020 9:02 PM EST): Daily sun protection. See table lever operator as scheduled. Assessment & Plan (08/22/2020 6:55 PM EST): Daily sun protection. See table lever operator as scheduled. Assessment & Plan (05/09/2020 4:54 PM EDT): Daily sun protection. See table lever operator as scheduled. Assessment & Plan (03/28/2020 12:14 PM EDT): Daily sun protection. See table lever operator as scheduled. Assessment & Plan (02/05/2020 10:49 AM EDT): Daily sun protection. See table lever operator as scheduled. Assessment & Plan (09/11/2019 8:47 AM EST): Daily sun protection. See table lever operator as scheduled. Assessment & Plan (07/08/2019 3:06 PM EDT): Daily sun protection. See table lever operator as scheduled. Assessment & Plan (03/25/2019 10:21 AM EDT): Daily sun protection. See table lever operator as scheduled. Assessment & Plan (12/23/2018 2:36 PM EDT): Daily sun protection. See table lever operator as scheduled. Assessment & Plan (11/19/2018 8:58 PM EST): Daily sun protection. Wastewater Engineer as scheduled. Dry mouth 01/04/2018 Calculus of [...] with lung involvement 017 Assessment & Plan (07/23/2025 8:35 AM EDT): Clinically currently well-controlled except L knee, hands and neck soreness and stiffness particularly in the morning. Get labs monitoring safety and efficacy of therapy today+ in 3 months and prior to next visit-standing orders [facility]. Consider neurology consult regarding headaches and [...] if problems or questions otherwise return in 6 months with prior labs monitoring safety and efficacy of therapy-standing orders in [facility]. Assessment & Plan (03/19/2025 9:48 AM EDT): Clinically currently well-controlled except L knee, hands and neck soreness and stiffness particularly in the morning. Get labs monitoring safety and efficacy of therapy prior to next visit-standing orders in [facility]. Consider neurology consult regarding headaches and [...] safety and efficacy of therapy-standing orders in [facility]. Assessment & Plan (12/18/2024 10:06 PM EDT): Clinically currently well-controlled except L knee, hands and neck soreness and stiffness particularly in the morning. Get labs monitoring safety and efficacy of therapy today and prior to next visit-standing orders in [facility]. Consider neurology consult regarding headaches and [...] safety and efficacy of therapy-standing orders in [facility]. Assessment & Plan (06/17/2024 11:48 AM EDT): Follow up with Dr. Hicks for Sjogren's, asthma. Continue inhalers. Assessment & Plan (06/06/2024 12:47 PM EDT): Clinically currently well-controlled except L knee, hands and neck soreness and stiffness particularly in the morning. Get labs monitoring safety and efficacy of therapy today and prior to next visit-standing orders in [facility]. Consider neurology consult regarding headaches and [...] safety and efficacy of therapy-standing orders in [facility]. Assessment & Plan (03/14/2024 3:34 PM EDT): Clinically currently well-controlled. Get labs monitoring safety and efficacy of therapy prior to next visit-standing orders in [facility]. Consider neurology consult regarding headaches and [...] therapy prior to next visit-standing orders in [facility]. Consider neurology consult regarding headaches and [...] involving multiple joints 10/04/2017 Assessment & Plan (07/23/2025 8:36 AM EDT): Joint protection, energy conservation. Gentle, regular exercise routine. Avoid falls, injuries, overuse. Keep body weight in ideal range for her height. She received left knee geniculate embolization on 03/12/2025 that appears as more the definitive pain control modality She decided to undergo L TKR under spinal anesthesia at [facility] in October 2025. Call if worse or with questions/problems. Assessment & Plan (03/19/2025 9:49 AM EDT): [...] disease with esophagitis 10/04/2017 Assessment & Plan (07/23/2025 8:01 AM EDT): Avoid late, large, spicy meals. Keep headboard elevated at 45 angle for nighttime. Carefully continue Protonix 40 mg twice daily as prescribed. Assessment & Plan (06/24/2025 9:03 AM EDT): [...] nighttime. Inflammatory arthritis 10/04/2017 Assessment & Plan (07/23/2025 8:05 AM EDT): Intermittently involving mostly her wrists [...] at least every 3-4 months-standing orders in [facility]. Gentle, regular exercise routine. Avoid falls, injuries, overuse. Assessment & Plan (03/19/2025 9:49 AM EDT): [...] at least every 3-4 months-standing orders in [facility]. Gentle, regular exercise routine. Avoid falls, [...] at least every 3 months-standing orders in [facility]. Gentle, regular exercise routine. Avoid falls, [...] at least every 3 months-standing orders in [facility]. Gentle, regular exercise routine. Avoid falls, [...] writing. Provider: Margaux Montanez MD Patient: Herlinda Ptitlisette : 1960 Date: 06/06/2024 Assessment & Plan [...] therapy at least every 3 months. 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, oysterman, current use 10/04/2017 Assessment & Plan (07/23/2025 8:37 AM EDT): Remain alcohol free while taking methotrexate. Use double contraception if sexually active. Get regular lab work monitoring safety at least every 2-3 months. Hold methotrexate whenever running fever, feeling sick, requiring antibiotics. Wait at least 48 hours after the last dose of antibiotic before restarting methotrexate on a regular schedule. In preparation for L TKR in October 2025 she will hold methotrexate for 2 weekly doses prior to surgery and at least 2 weekly doses after surgery or until postsurgical scar is healed. Assessment & Plan (03/19/2025 9:10 AM EDT): [...] inhibitor (SSRI) therapy 10/04/2017 Assessment & Plan (07/23/2025 8:03 AM EDT): Monitor for mood swings, increased muscle rigidity and temperature intolerance. Assessment & Plan (12/07/2021 4:45 PM EST): [...] mixture of 1% lidocaine and 40 mg Inva-Cecyir-nspzdi refer for details to procedure note below. [...] mixture of 1% lidocaine and 40 mg Vifg-Owdwao-ybysjb refer for details to procedure note below. [...] mixture of 1% lidocaine and 40 mg Xqsc-Lngbzi-flurxr refer for details to procedure note below. [...] mixture of 1% lidocaine and 40 mg Pzbc-Ieapda-ajgpdx refer for details to procedure note below. 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 She agrees. [...] manifestation of SLE but will ask her airplane rental clerk to weigh in. Unfortunately, the wait for [...] one of the aspiration procedures. Improved-followed by supervisor ore dressing and fisher seal. Assessment & Plan (06/17/2024 11:46 AM EDT): S/P repair 2022. Await EGD this week. Assessment & Plan (06/06/2024 12:52 PM EDT): Corrected surgically in November 2022 with subsequent pleural effusions, vasovagal reaction upon one of the aspiration procedures. Improved-followed by supervisor ore dressing and fisher seal. Assessment & Plan (02/28/2022 4:42 PM EDT): [...] Encounters Date Type Department Care Team Description 08/05/2025 Patient Outreach [facility] - Primary Care [address] [place] [id number] Izzy Hackett Care Coordination (General outreach) 07/27/[address] [place] [address] Xiao Mckeon RN Results 07/24/2025 Refill [facility] [address] [place] [address] [place] [address] Margaux Montanez MD Medication Refill 07/24/2025 Orders Only [address] [place] [address] Eunice Sanz CNP 07/23/2025 8:00 AM EDT Office Visit [facility] [address] [place] [address] [place] [address] Margaux Montanez MD SLE-Sjogren overlap syndrome (Primary Dx); Sjogren's syndrome with lung involvement; Inflammatory arthritis; Primary osteoarthritis involving multiple joints; 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, residential, current use; Long-term use of Plaquenil; Fibromyalgia; Gastroesophageal reflux disease with esophagitis without hemorrhage; Vitamin D insufficiency; PTSD (post-traumatic stress disorder); On selective serotonin reuptake inhibitor (SSRI) therapy; Class 1 obesity due to excess calories with serious comorbidity and body mass index (BMI) of 31.0 to 31.9 in adult 07/23/2025 Orders [place] [address] [place] [address] Eunice Sanz CNP Essential hypertension; Encounter for medication monitoring 07/22/2025 1:30 PM EDT Office Visit [address] [place] [address] Eunice Sanz CNP Screening for malignant neoplasm of cervix (Primary Dx); Primary osteoarthritis of both knees 07/16/2025 Telephone [facility] [address] [place] [address] Lester Hicks MD Appointment 07/06/2025 Enrollment [facility] - Primary Care [address] [place] [address] 07/06/2025 Refill [facility] [address] [place] [address] Lester Hicks MD Medication Refill 07/03/[address] [place] [address] Eunice Sanz CNP Lab sample 06/25/2025 7:33 AM EDT - 06/25/2025 11:59 PM EDT Hospital Encounter [address] [address] Eunice Sanz CNP Discharge Disposition: Home or Self Care 06/24/2025 8:00 AM EDT Office Visit [address] [place] [address] Eunice Sanz CNP Encounter for general adult [...] Needs flu shot; Immunization counseling 06/18/[address] [place] [address] Eunice Sanz CNP Medication Refill 06/05/2025 Refill [facility] [address] [place] [address] [place] [address] Margaux Montanez MD Medication Refill 06/01/2025 Patient Outreach [facility] [address] [address] Neisha Pinto, RANDI [facility] transition letter ) 05/25/[address] [place] [address] Eunice Sanz CNP Medication Refill 05/25/2025 Telephone [facility] [address] [place] [address] Margaux Montanez MD 05/22/2025 Telephone [facility] [address] [place] [address] Margaux Montanez MD 05/18/2025 Orders Only [facility] [address] [place] [address] [place] [address] Nancy See MA SLE-Sjogren overlap syndrome; Sjogren's syndrome with lung involvement; Inflammatory arthritis; 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, oysterman, current use 05/13/2025 Telephone [facility] [address] [place] [address] Sung Marlow, RANDI 05/13/2025 Nurse Triage [facility] [address] [place] [address] Sung Marlow, RANDI 05/11/2025 Refill [facility] [address] [place] [address] [place] [address] Margaux Montanez MD Medication Refill 05/07/2025 Refill [facility] [address] [place] [address] [place] [address] Margaux Montanez MD Medication Refill 06/17/2024 Procedure Pass [facility], [address] [address] from Last 3 Months Immunizations Immunization Administration [...] high school, GED, job training, learning the [place]iny[place] language, technical skills, or developing parenting skills)? [...] Sign Reading Time Taken Comments Blood Pressure 110/78 07/23/2025 8:00 AM EDT Pulse 87 07/23/2025 8:00 AM EDT Temperature 36.7 C (98 F) 07/22/2025 1:27 PM EDT Respiratory Rate 16 03/12/2025 2:30 PM EDT Oxygen Saturation 97% 07/23/2025 8:00 AM EDT Inhaled Oxygen Concentration 20.7% 03/12/2025 1 1:28 AM EDT Weight 82.1 kg (181 lb) 07/23/2025 8:00 AM EDT Height 160.9 cm (5' 3.35 ) 07/23/2025 8:00 AM ED T Body Mass Index 31.71 07/23/2025 8:00 AM EDT Plan of Treatment Upcoming Encounters Date Type Department Care Team (Late st Contact Info) Description 08/24/2025 1:30 PM EST Office Visit [facility] [address] [address] Eunice Sanz, HAMMER DRIVER [address] [facility], [address] [place] [address] [email or web address] 09/10/2025 9:00 AM EST Office Visit [facility] [address] [place] [address] Unknown, Unknown, Shreyas Limon MD [address] [address] 09/21/2025 2:30 PM EST Office Visit [facility] [address] [facility] [place] [address] Lester Hicks MD [address] [address] 10/13/2025 9:20 AM EST Office Visit [facility] [address] [place] [address] [place] [address] Doretha Glynn MD [address] [place] [phone] [email or web address] 12/22/2025 8:30 AM EDT Office Visit [address] [place] [address] Eunice Sanz, HAMMER DRIVER [address] [place] [address], [address] [place] [address] [email or web address] 06/30/2026 8:00 AM EDT Office Visit [address] [place] [address] Eunice Sanz, HAMMER DRIVER [address] [place] [address], [address] [place] [address] [email or web address] Health Maintenance Due Date Last Done Comments COLOGUARD 2007 FOBT 2007 SIGMOIDOSCOPY 2007 VIRTUAL COLONOSCOPY 2007 FIT TEST 04/15/2021 04/15/2020 COVID-19 VACCINE ( season) 2025 08/03/2021, 03/09/2021, 02/16/2021 LIPID PANEL 12/08/2025 12/08/2020 TSH LEVEL 12/10/2025 12/10/2024, 09/09, 02/26/2024, Additional history exists BLOOD PRESSURE 01/21/2026 07/23/2025 POTASSIUM LEVEL 03/12/2026 03/12/2025, 02/06, 11/14/2023, Additional history exists CREATININE LEVEL 05/14/2026 05/14/2025, 02/2025, 12/10/2024, Additional history exists Adult Td,Tdap Booster 06/13/2026 06/13/2016 COLONOSCOPY 06/20/2026 06/20/2024, 07/17/2017 COLORECTAL CANCER SCREENING 06/20/2026 DEPRESSION SCREENING 06/23/2026 06/23/2025, 10/29/19 24 MAMMOGRAM 06/25/2027 06/25/2025, 03/, 07/27/2021, Additional history exists SCREENING FOR DIABETES 03/12/2028 03/12/2025 PAP SMEAR 07/22/2030 07/22/2025, 06/08, 11/11/2019 HEPATITIS C SCREENING Completed 07/14/2014 HIV ONE-TIME SCREENING (18-65 YEARS) Completed 07/14/2014 ZOSTER VACCINES Completed 11/23/2020, 05/23/2020 RSV VACCINE Completed 07/04/2023 PNEUMOCOCCAL VACCINES (50+ years) Completed 06/17/2024, 06/22/2016, 06/11/2014 INFLUENZA VACCINE Completed 06/24/2025, , 07/04/2023, Additional history exists SMOKING STATUS SCREENING (Once After 26 Yrs) Completed 07/23/2025 HEPATITIS A VACCINES Aged Out No long [...] Procedure Name Priority Date/Time Associated Diagnosis Comments OUTSIDE ECHO Routine 07/22/2025 8:44 AM EDT PAP TEST Routine 07/22/2025 12:00 AM EDT BI MAMMOGRAM SCREENING WITH TOMOSYNTHESIS WITH CAD (BILATERAL) Routine 06/25/2025 7:54 AM EDT Screening breast examination ECG 12-LEAD Routine 06/24/2025 8:21 AM EDT Encounter for medication monitoring PAP TEST Routine 06/24/2025 12:00 AM EDT TOTAL PROTEIN CREATININE RATIO, RANDOM URINE Routine 05/14/2025 3:12 PM EDT SLE-Sjogren overlap syndrome Sjogren's syndrome with lung involvement Inflammatory arthritis 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, oysterman, current use DOUBLE STRANDED DNA ANTIBODIES Routine 05/14/2025 3:12 PM EDT SLE-Sjogren overlap syndrome Sjogren's syndrome with lung involvement Inflammatory arthritis 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, residential, current use CPK (CREATINE KINASE) Routine 05/14/2025 3:12 PM EDT SLE-Sjogren overlap syndrome Sjogren's syndrome with lung involvement Inflammatory arthritis 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, residential, current use COMPLEMENT C4 Routine 05/14/2025 3:12 PM EDT SLE-Sjogren overlap syndrome Sjogren's syndrome with lung involvement Inflammatory arthritis 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, residential, current use COMPLEMENT C3 Routine 05/14/2025 3:12 PM EDT SLE-Sjogren overlap syndrome Sjogren's syndrome with lung involvement Inflammatory arthritis 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, residential, current use CBC AND DIFFERENTIAL Routine 05/14/2025 3:12 PM EDT SLE-Sjogren overlap syndrome Sjogren's syndrome with lung involvement Inflammatory arthritis 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, oysterman, current use SEDIMENTATION RATE (ESR) Routine 05/14/2025 3:12 PM EDT SLE-Sjogren overlap syndrome Sjogren's syndrome with lung involvement Inflammatory arthritis 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, residential, current use C-REACTIVE PROTEIN Routine 05/14/2025 3: 12 PM EDT SLE-Sjogren overlap syndrome Sjogren's syndrome with lung involvement Inflammatory arthritis 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, residential, current use COMPREHENSIVE METABOLIC PANEL Routine 05/14/2025 3:12 PM EDT SLE-Sjogren overlap syndrome Sjogren's syndrome with lung involvement Inflammatory arthritis 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, oysterman, current use BASIC METABOLIC PANEL STAT 03/12/2025 [...] Recently Relevant to Health Maintenance Results * Outside Echo Report Only (07/22/2025 8:44 AM EDT) Eunice Sanz HAMMER DRIVER CV ECHO ORDERABLES Final Result * Pap Test (07/22/2025 12:00 AM EDT) Only the most recent of2 resultswithin the time period is included. 07/22/2025 07/23/2025 9:2 3 AM EDT Narrative SEE NARRATIVE - 07/30/2025 1:38 PM EDT [address] [address] Ship Superintendent: Dilan Sams MD SECRETARIAL TEACHER Cytology Report FINAL DIAGNOSIS A. PAP SMEAR (THIN PREP) CE: SPECIMEN ADEQUACY: Satisfactory for evaluation; limited squamous cellularity. Limited by inflammation INTERPRETATION: NEGATIVE FOR INTRAEPITHELIAL LESION OR MALIGNANCY. This specimen was analyzed by the automated ThinPrep Imaging System ([employer].) and manually rescreened by a wind turbine service technician and/or pathologist. Electronically Signed Out By: BRITT Parker MD(ASCP) By his/her signature above, the pathologist listed [...] are recommended to minimize false negative results. CLINICAL HISTORY Date of Last Menstrual Period: Not Provided Menstrual History: Post Menopausal Other Clinical Conditions: Screening Pap Previous Unsatisfactory SPECIMEN SOURCE A: PAP SMEAR (THIN PREP) CE Patient Name: HELRINDA HASKINS : 1960 (Age: 65) Sex: F Institution: [facility] Location: [facility] Date of Collection: 07/22/2025 Date of Reported: 07/30/2025 13:38 Results to: Eunice Sanz MSN Eunice Sanz [facility] CYTOLOGY ORDERABLES Final Result SEE NARRATIVE * BI MAMMOGRAM SCREENING WITH TOMOSYNTHESIS WITH [...] AM EDT Type of EKG: Standard. Global (06450). Notes Sinus rhythm. QTc 450 ms, up from 433 in 2022. Slight left precordial repolarization disturbance. No ST/T wave changes. Echo ordered. Eunice Sanz CNP ECG ORDERABLES Edited Re sult - Final Performing Organization Address [facility] de Phone Number EXTERNAL NON-INTERFACED REF LAB * Total protein creatinine ratio, random urine (05/14/2025 3:12 PM EDT) Urine (Urine) Margaux Montanez MD URINE ORDERABLES Final R esult Performing Organization Address [facility] Co de Phone Number EXTERNAL NON-INTERFACED REF LAB * Double stranded DNA antibodies (05/14/2025 3:12 PM EDT) Blood Margaux Montanez MD LAB BLOOD ORDERABLES Fin al Result Performing Organization Address [facility] Co de Phone Number EXTERNAL NON-INTERFACED REF LAB * CPK (creatine kinase) (05/14/2025 3:12 PM EDT) Blood Margaux Montanez MD LAB BLOOD ORDERABLES Fin al Result Performing Organization Address [facility] de Phone Number EXTERNAL NON-INTERFACED REF LAB * Complement C4 (05/14/2025 3:12 PM EDT) Blood Margaux Montanez MD LAB BLOOD ORDERABLES Fin al Result Performing Organization Address [facility] Phone Number EXTERNAL NON-INTERFACED REF LAB * Complement C3 (05/14/2025 3:12 PM EDT) Blood Margaux Montanez MD LAB BLOOD ORDERABLES Fin al Result Performing Organization Address [facility] de Phone Number EXTERNAL NON-INTERFACED REF LAB * CBC and differential (05/14/2025 3:12 PM EDT) Blood Margaux Montanez MD LAB BLOOD ORDERABLES Fin al Result Performing Organization Address [facility] de Phone Number EXTERNAL NON-INTERFACED REF LAB * Sedimentation rate (ESR) (05/14/2025 3:12 PM EDT) Blood Margaux Montanez MD LAB BLOOD ORDERABLES Fin al Result Performing Organization Address [facility] de Phone Number EXTERNAL NON-INTERFACED REF LAB * C-Reactive Protein (05/14/2025 3:12 PM EDT) Blood Margaux Montanez MD LAB BLOOD ORDERABLES Fin al Result Performing Organization Address [facility] Co de Phone Number EXTERNAL NON-INTERFACED REF LAB * Comprehensive metabolic panel (05/14/2025 3:12 PM EDT) Blood Margaux Montanez MD LAB BLOOD ORDERABLES Fin al Result Performing Organization Address [facility] de Phone Number EXTERNAL NON-INTERFACED REF LAB * Basic metabolic panel (03/12/2025 6:10 AM EDT) SODIUM 142 136 - 145 mmol/L [facility] POTASSIUM 3.4 3.4 - 5.1 mmol/L [facility] CHLORIDE 103 98 - 107 mmol/L [facility] CO2 31 22 - 31 mmol/L [facility] BUN 11 6 - 23 mg/dL [facility] CREATININE 0.80 0.50 - 1.20 mg/dL [facility] GLUCOSE 84 70 - 100 mg/dL [facility] CALCIUM 9.7 8.8 - 10.7 mg/dL [facility] EGFR 83 >59 mL/min/1.7 3m2 [facility] Comment:Estimated glomerular filtration rate calculated using the CKD-EPI refit equation. ANION GAP 8 7 - 17 mmol/L [facility] 03/12/2025 6:10 AM EDT 03/12/2025 6:48 AM EDT Lj Moscoso MD, MPH LAB BLOOD ORDERABLES Final Result Performing Organization Address [facility] de Phone Number [facility] [address] [place] [address] * TSH (12/10/2024 4:12 PM EST) Blood Doretha Glynn MD LAB BLOOD ORDERABLES Final Res ult Performing Organization Address [facility] Co de Phone Number EXTERNAL NON-INTERFACED REF LAB * ENDOSCOPY, COLON (06/20/2024 9:51 AM EDT) Narrative Transcriptions Shreyas Murphy MD - 06/20/2024 9:51 AM EDT [facility] Patient Name: Herlinda Saleem Attending MD:: SHREYAS MURPHY MD, Procedure Date: 06/20/2024 9:51 AM Date of : 1960 Age: 64 Admit Type: Outpatient Gender: Female Room: [place] [address] Referring MD: EUNICE SANZ Exam Type: Colonoscopy [...] 9:51 AM Procedure Code(s): --- Professional --- 18635, Colonoscopy, flexible; with biopsy, single or multiple --- Technical --- 13083, Colonoscopy, flexible; with biopsy, single or multiple Diagnosis Code(s): --- Professional --- K52.9, Noninfective gastroenteritis and colitis, unspecified --- Technical --- K52.9, Noninfective gastroenteritis and colitis, unspecified CPT copyright 2021 [employer]. All rights reserved. The codes documented in this report are preliminary and upon medical biller/coder reviewmay be revised to meet current compliance requirements. Procedure Date: 06/20/2024 9:51:[address] [place] [address] Andreaemma Vlaentin [facility] GI PROCEDURE ORDERABLES F inal Result * (ABNORMAL) Lipid panel (12/08/2020 4:37 PM EST) HDL 60 mg/dL [facility] Comment: Interpretation <40 mg/dL: Low HDL cholesterol (major risk factor for CHD) Greater than or equal to 60 mg/dL: High HDL cholesterol ( negative risk factor for CHD) HDL - cholesterol is affected by a number of factors, e.g. smoking, excerise, hormones, sex and age. CHOLESTEROL 192 0 - 240 mg/dL [facility] TRIGLYCERIDES 139 30 - 160 mg/dL [facility] LDL 104 50 - 129 mg/dL [facility] Comment: LDL levels in terms of risk for coronary heart disease: <100 mg/dL: Optimal 100-129 mg/dL: Near or above optimal 130-159 mg/dL: Borderline high 160-189 mg/dL: High >190 mg/dL: Very High CARDIAC RISK RATIO 3.2(L) 3.3 - 4.4 C [facility] Blood 12/08/2020 4:37 PM EST 12/08/2020 4:45 PM EST Mamta Whitney DO LAB BLOOD ORDERABLES Final Result [address] [address] * Fecal immunochemical test x1 (FIT) (04/15/2020 8:00 AM EDT) Immuno Fecal Occult Negative [facility] Stool (Stool) 04/15/2020 8:0 0 AM EDT 04/15/2020 4:23 PM EDT Alise Winkler PA-C BODY FLUIDS AND STOOLS ORDERABL ES Final Result Performing Organization Address [facility]/ZIP Co de Phone Number [address] [address] * Outside Hepatitis C Virus Screening (07/14/2014) Hepatitis C Screening - External Neg Historical Provider LAB BLOOD ORDERABLES Ibis l Result * OUTSIDE HIV TEST (07/14/2014) HIV - External Neg Historical Provider LAB BLOOD ORDERABLES Ibis l Result from Last 3 Months or Most Recently Relevant to Health Maintenance Insurance [id number] ADMIN[employer]RAT[employer] [id number] ADMIN[employer]AT[employer] Member Subscriber Plan / Payer ( fective 2023-) Name:Herlinda Haskins Relation to Subscriber:Self Name:Herlinda Haskins Payer ID:[id number] (NAIC) Type:PPO Address: [place] [id number] ADMINISTRATORS Member Subscriber Plan / Payer ( fective 2023-) Name:Herlinda Hasikns Relation to Subscriber:Self Name:Herlinda Haskins Payer ID:[id number] (NAIC) Type:PPO Address: [place] [id number] [employer] [place] [employer] [id number] ADMINISTRATORS Advance Directives For more information, please contact: [phone] (9AM - 5PM [facility], Sunday-Sunday) Documents on File Type Date Recorded Patient Cloth Stretcher Expl anation Healthcare Proxy 11/21/2022 3:55 PM [...] Code Status Confirmed With: Patient Care Teams Filter Tender Relationship Specialty Start Date End Date Euniec Sanz CNP [address] [place] [address], [address] [place] [address] PCP - General Family Medicine 02/11/21 Lester Hicks MD [address] [place] [address] [email or web address] Historical LMR Provider 07/28/17 Margaux Montanez MD [address] [place] [address], [address] [place] [address] Historical LMR Provider 07/28/17 Khang Kilgore MD [address] [place] [address], [address] [place] [address] Insurance Assigned Provider 01/12/24 Shreyas Murphy MD [address] [place] [address] Gastroenterology 06/17/24 Doretha Glynn MD [address] [place] [address] Endocrinology 06/17/24 Radha Pereira, RANDI [address] [place] [address] [email or web address] PHCM Soils TechnicianDirector Of Marketing [employer] Performance Ads 06/11/25 Additional Source Comments The information contained in this document represents components of the legal health record. It is not the complete legal health record.[facility]
--- OUTSIDE RECORDS SUMMARY | 2025-08-05 19:46 | XMS_ITS | Encounter Summary ---
Author Organization [facility] Address [address] [facility] [address] [place] [address] Phone Care Team Providers Care Convention Planner Name Role Phone Lester Hicks MD Unavailable [phone] Margaux Montanez MD Unavailable Johann Hanson DEWATERER OPERATOR Primary Care Provider [phone] Khang Kilgore MD Unavailable Luis Ignacio DO Unavailable Flo Esteban MD Unavailable [phone] Neisha Pinto RN Unavailable [email or web address] Shreyas [place] MD Unavailable [phone] Doretha Glynn MD Unavailable [phone] Izzy Hackett Unavailable [email or web address] Radha Pereira RN Unavailable [phone] Encounter Details Date Type Department Care Team (Latest Contact Info) Description 12/22/2022 Transcribe Orders Virtual Department 30 [place] [address] Johann Hanson, DEWATERER OPERATOR [address] [facility], [address] [place], [place] [phone] [email or web address] Breast screening (Primary Dx) Social History [...] high school, GED, job training, learning the German language, technical skills, or developing parenting skills)? [...] 08/24/2025 1:30 PM EST Office Visit [facility] [address] [place] [address] [place] [address] Johann Hanson, TIFFANIE [address], [address] [place] [address] [email or web address] 09/10/2025 9:00 AM EST Office Visit [facility] 10 [place] [address] Unknown, [place], Shreyas Limon MD [address] [address] 09/21/2025 2:30 PM EST Office Visit [facility] Pulmonary, Allergy and Critical Care Medicine 10 [facility] [place] [address] Lester Hicks MD [address] [address] 10/13/2025 9:20 AM EST Office Visit [facility] Endocrinology [address] [place] [address] Doretha Glynn MD [address] [place] [address] [email or web address] 12/22/2025 8:30 AM EDT Office Visit [address] [place] [address] Johann Hanson, DEWATERER OPERATOR [address] [place] [address], [address] [place] [address] [email or web address] 06/30/2026 8:00 AM EDT Office Visit [address] [place] [address] Johann Hanson, DEWATERER OPERATOR [address] [place] [address], [address] [place] [address] [email or web address] documented as of this encounter [...] Months Recommendation: Left Mammography Screening Johann Hanson DEWATERER OPERATOR IMG MG EXAMS Final Res ult documented [...] documented as of this encounter Care Teams Convention Planner Relationship Specialty Start Date End Date Johann Hanson CNP [address] [place] [address], [address] [place] [address] PCP - General Family Medicine 02/11/21 Lester Hicks MD [address] [place] [address] Historical LMR Provider 07/28/17 Margaux Montanez MD [address] [facility], [address] [place] [address] [email or web address] Historical LMR Provider 07/28/17 Khang Kilgore MD [address] [place] [address], [address] [place] [address] Insurance Assigned Provider 01/12/24 Luis Ignacio DO [address] [place] [address], [address] [place] [address] Cardiology 06/28/22 06/16/24 Flo Esteban MD [address] [place], [place] [address] [place] [address] [email or web address] Cardiothoracic Surgery 06/28/22 06/16/24 Neisha Pinto, RANDI [address] [place], [place] [address] [place] [address] [email or web address] PHCM Medical Receptionist Biller 02/26/23 06/10/25 Shreyas [place] MD [address] [place] [address] Gastroenterology 06/17/24 Doretha Glynn MD [address] [place] [address] Endocrinology 06/17/24 Izzy Hackett [address] [place] [address] [email or web address] PHCM Community Front Desk Manager 09/11/24 09/11/24 Radha Pereira RN [address] [place] [address] PHCM Medical Receptionist BillerMainframe Programmer Analyst 06/11/25 documented as of this encounter Additional Source Comments The information contained in this document represents components of the legal health record. It is not the complete legal health record.[facility]
--- OUTSIDE RECORDS SUMMARY | 2025-08-05 19:46 | XMS_ITS | Encounter Summary ---
Author Organization [facility] Address [address] [place] [address] Phone Care Team Providers Care Elderly Caregiver Name Role Phone Lester Hicks MD Unavailable [phone] Margaux Mnotanez MD Unavailable Johann Hanson CNP Primary Care Provider [phone] Khang Kilgore MD Unavailable Luis Ignacio DO Unavailable [phone] Flo Esteban MD Unavailable [phone] Neisha Pinto RN Unavailable [email or web address] Shreyas [place] MD Unavailable [phone] Doretha Glynn MD Unavailable [phone] Izzy Hackett Unavailable [email or web address] Radha Pereira RN Unavailable Encounter Details Date Type Department Care Team (Late st Contact Info) Description 12/08/2022 Procedure Pass [facility] Cardiovascular And Interventional Radiology [address] [place], [place] [phone] Social History Tobacco Use Types Packs/Day Years [...] Description 08/24/2025 1:30 PM EST Office Visit [facility] [address] [place] [address] Johann Hanson, TIFFANIE [address] [facility], [address] [place] [address] [email or web address] 09/10/2025 9:00 AM EST Office Visit [facility] 10 [place] [address] Unknown, Unknown, Shreyas Limon MD 10 [facility] 2 [place] [address] 09/21/2025 2:30 PM EST Office Visit [facility] Pulmonary, Allergy and Critical Care Medicine 10 [facility] [place] [address] Lester Hicks MD [address] [place] [address] 10/13/2025 9:20 AM EST Office Visit [facility]inology [address] [place] [address] [place] [address] Doretha Glynn MD [address] [place] [address] [email or web address] 12/22/2025 8:30 AM EDT Office Visit [address] [place] [address] Johann Hanson, PROCESSING SPEC [address] [place] [address], [address] [place] [address] [email or web address] 06/30/2026 8:00 AM EDT Office Visit [address] [place] [address] Johann Hanson, PROCESSING SPEC [address] [place] [address], [address] [place] [address] [email or web address] documented as of this encounter Visit Diagnoses Not on filedocumented in this encounter Additional Health Concerns Infection Onset Date Last Indicated Resolved Time COVID-19 10/07/2023 10/07/2023 10/28/2023 1:21 AM EST Assessment Noted Time PHQ-2 Depression Total Score: 0 05/15/20 1:45 PM EDT documented as of this encounter Care Teams Elderly Caregiver Relationship Specialty Start Date End Date ValentinJohann TIFFANIE [address] [place] [address], [address] [place] [address] PCP - General Family Medicine 02/11/21 Lester Hicks MD [address] [place] [address] 2[address] [place] [address] [email or web address] Historical LMR Provider 07/28/17 Margaux Montanez MD [address] [place] [address], [address] [place] [address] [email or web address] Historical LMR Provider 07/28/17 Khang Kilgore MD [address] [place] [address], [address] [place] [address] [email or web address] Insurance Assigned Provider 01/12/24 Luis Ignacio DO [address] [place] [address], [address] [place] [address] Cardiology 06/28/22 06/16/24 Flo Esteban MD [address] [place] [address] [place] [address] [email or web address] Cardiothoracic Surgery 06/28/22 06/16/24 Neisha Pinto RN [address] [place], [place] [address] [place] [address] [email or web address] PHCM Assistant Professor In Family Studies 02/26/23 06/10/25 Shreyas [place] MD [address] [place] [address] Gastroenterology 06/17/24 Doretha Glynn MD [address] [place] [address] Endocrinology 06/17/24 Izzy Hackett [address] [place] [address] [email or web address] PHCM Community Computer Repair Engineer 09/11/24 09/11/24 Radha Pereira, RN [address] [place] [address] [email or web address] PHCM Assistant Professor In Family StudiesDie Set Up Worker 06/11/25 documented as of this encounter Additional Source Comments The information contained in this document represents components of the legal health record. It is not the complete legal health record.[facility]
--- OUTSIDE RECORDS SUMMARY | 2025-08-05 19:46 | XMS_ITS | Encounter Summary ---
Author Organization [facility] Address [address] [place] [address] Phone Care Team Providers Care Physician Asst Name Role Phone Lester Hicks MD Unavailable [phone] Margaux Montanez MD Unavailable [phone] Johann Hanson CNP Primary Care Provider [phone] Khang Kilgore MD Unavailable [phone] Luis Ignacio DO Unavailable [phone] Flo Esteban MD Unavailable [phone] Neisha Pinto RN Unavailable [email or web address] Shreyas Wilson MD Unavailable Doretha Glynn MD Unavailable [phone] Izzy Hackett Unavailable [email or web address] Radha Pereira RN Unavailable Encounter Details Date Type Department Care Team (Late st Contact Info) Description 12/11/2022 Procedure Pass [facility] Cardiovascular And Interventional Radiology 30 [place], [place] [id number] Social History Tobacco Use Types Packs/Day Years [...] high school, GED, job training, learning the Sudanese language, technical skills, or developing parenting skills)? [...] Description 08/24/2025 1:30 PM EST Office Visit [facility] [place] [facility] [address] [place] [address] Johann Hanson, TIFFANIE 22 [facility], [address] [place] [address] [email or web address] 09/10/2025 9:00 AM EST Office Visit [facility] 10 [place] [address] Unknown, Unknown, Shreyas Limon MD 10 [facility] 2 [place] [address] 09/21/2025 2:30 PM EST Office Visit [facility], Allergy and Critical Care Medicine 10 [facility] [place] [address] Lester Hicks MD [address] [place] [address] 10/13/2025 9:20 AM EST Office Visit [facility] [address] [place] [address] [place] [address] Doretha Glynn MD [address] [place] [address] [email or web address] 12/22/2025 8:30 AM EDT Office Visit [address] [place] [address] Johann Hanson, CAFE ASSOCIATE [address] [place] [address], [address] [place] [address] [email or web address] 06/30/2026 8:00 AM EDT Office Visit [address] [place] [address] Johann Hanson, CAFE ASSOCIATE [address] [place] [address], [address] [place] [address] [email or web address] documented as of this encounter Visit Diagnoses Not on filedocumented in this encounter Additional Health Concerns Infection Onset Date Last Indicated Resolved Time COVID-19 10/07/2023 10/07/2023 10/28/2023 1:21 AM EST Assessment Noted Time PHQ-2 Depression Total Score: 0 05/15/20 1:45 PM EDT documented as of this encounter Care Teams Physician Asst Relationship Specialty Start Date End Date ValentinJohann TIFFANIE [address] [place] [address], [address] [place] [address] PCP - General Family Medicine 02/11/21 Lester Hicks MD [address] [place] [address] 2nd [place] [address] [email or web address] Historical LMR Provider 07/28/17 Margaux Montanez MD [address] [place] [address], [address] [place] [address] [email or web address] Historical LMR Provider 07/28/17 Khang Kilgore MD [address] [place] [address], [address] [place] [address] [email or web address] Insurance Assigned Provider 01/12/24 Luis Ignacio DO [address] [place] [address], [address] [place] [address] Cardiology 06/28/22 06/16/24 Flo Esteban MD [address] [place] [address]7 [place] [address] [email or web address] [email or web address] Cardiothoracic Surgery 06/28/22 06/16/24 Neisha Pinto RN [address] [place], [place] [address] [place] [address] [email or web address] PHCM Looper Operator 02/26/23 06/10/25 Shreyas Wilson MD [address] [place] [address] Gastroenterology 06/17/24 Doretha Glynn MD [address] [place] [address] Endocrinology 06/17/24 Izzy Hackett [address] [place] [address] [email or web address] PHCM Community Headline Writer 09/11/24 09/11/24 Radha Pereira, RN [address] [place] [address] [email or web address] PHCM Looper OperatorSnuff Drier 06/11/25 documented as of this encounter Additional Source Comments The information contained in this document represents components of the legal health record. It is not the complete legal health record.[facility]
--- OUTSIDE RECORDS SUMMARY | 2025-08-05 19:46 | XMS_ITS | Encounter Summary ---
Author Organization [facility] Address [address] [place] [address] Phone Care Team Providers Care Lumber Stacker Operator Name Role Phone Lester Hicks MD Unavailable [phone] Margaux Montanez MD Unavailable Johann Hanson CNP Primary Care Provider [phone] Khang Kilgore MD Unavailable [phone] Luis Ignacio DO Unavailable [phone] Flo Esteban MD Unavailable [phone] Neisha Pinto RN Unavailable [email or web address] Shreyas Wilson MD Unavailable [phone] Doretha Glynn MD Unavailable [phone] Izzy Hackett Unavailable [email or web address] Radha Pereira RN Unavailable [phone] Encounter Details Date Type Department Care Team (Late st Contact Info) Description 11/17/2022 Procedure Pass [facility] [address] [place] [address] Social History Tobacco Use Types [...] GED, job training, learning the Citizen [place] language, technical skills, or developing parenting skills)? [...] 11/17/2022 7:00 PM David Mccormick RN * [place] Suicide Severity Rating Scale (Screener/Recent Self-Report) Question [...] Description 08/24/2025 1:30 PM EST Office Visit [address] [place] [address] Johann Hanson, TIFFANIE 22 [facility], [address] [place] [address] [email or web address] 09/10/2025 9:00 AM EST Office Visit [facility] 10 [place] [address] Unknown, Unknown, Shreyas Limon MD [address] [address] 09/21/2025 2:30 PM EST Office Visit [facility] Pulmonary, Allergy and Critical Care Medicine 10 [facility] [place] [address] Lester Hicks MD [address] [place] [address] 10/13/2025 9:20 AM EST Office Visit [facility] [address] [place] [address] [place] [address] Doretha Glynn MD [address] [place] [address] 3rd [place] [address] [email or web address] 12/22/2025 8:30 AM EDT Office Visit [address] [place] [address] Johann Hanson CNP [address] [place] [address], [address] [place] [address] [email or web address] 06/30/2026 8:00 AM EDT Office Visit [facility] [address] [place] [address] Johann Hanson CNP 22 [facility], [address] [place] [address] [email or web address] documented as of this encounter Visit Diagnoses Not on filedocumented in this encounter Additional Health Concerns Infection Onset Date Last Indicated Resolved Time COVID-19 10/07/2023 10/07/2023 10/28/2023 1:21 AM EST Assessment Noted Time PHQ-2 Depression Total Score: 0 05/15/20 1:45 PM EDT documented as of this encounter Care Teams Lumber Stacker Operator Relationship Specialty Start Date End Date Johann Hanson CNP [address] [place] [address], [address] [place] [address] PCP - General Family Medicine 02/11/21 Lester Hicks MD [address] [place] [address] Historical LMR Provider 07/28/17 Margaux Montanez MD [address] [place] [address], [address] [place] [address] [email or web address] Historical LMR Provider 07/28/17 Khang Kilgore MD [address] [place] [address], [address] [place] [address] Insurance Assigned Provider 01/12/24 Luis Ignacio DO [address] [place] [address], [address] [place] [address] Cardiology 06/28/22 06/16/24 Flo Esteban MD [address] [place] [address] [email or web address] Cardiothoracic Surgery 06/28/22 06/16/24 Neisha Pinto RN [address] [place] [address] [email or web address] PHCM Institute Scientist 02/26/23 06/10/25 Shreyas Wilson MD [address] [place] [address] Gastroenterology 06/17/24 Doretha Glynn MD [address] [place] [address] Endocrinology 06/17/24 Izzy Hackett [address] [place] [address] [email or web address] PHC Community Classroom Instructor 09/11/24 09/11/24 Radha Pereira RN [address] [place] [address] [email or web address] PHCM Institute ScientistMeat Slicer 06/11/25 documented as of this encounter Additional Source Comments The information contained in this document represents components of the legal health record. It is not the complete legal health record.[facility]
--- OUTSIDE RECORDS SUMMARY | 2025-08-05 19:46 | XMS_ITS | Encounter Summary ---
Author Organization [facility] Address [address] [place] [address] [place] [address] Phone Care Team Providers Care Welding Machine Operator/Tender Name Role Phone Tricia Balderas DO Unavailable Lester Hicks MD Unavailable [phone] Margaux Montanez MD Unavailable Demario Floyd MD Unavailable Pam Benson MD Unavailable [phone] Adithya Campos BURNISHING MACHINE OPERATOR Unavailable Beatriz Donaldson DESIGN MAINTENANCE ENGINEER Unavailable Beatriz Donaldson DESIGN MAINTENANCE ENGINEER Primary Care Provider Mamta Whitney DO Primary Care Provider [phone] Mamta Whitney DO Primary Care Provider [phone] Johann Hanson BURNISHING MACHINE OPERATOR Primary Care Provider [phone] Khang Kilgore MD Unavailable Luis Ignacio DO Unavailable Flo Esteban MD Unavailable [phone] Dilan Rowland MD Unavailable [phone] Corby Prado MD Unavailable [phone] Neisha Pinto RN Unavailable [email or web address] Shreyas Wilson MD Unavailable [phone] Doretha Glynn MD Unavailable [phone] Izzy Hackett Unavailable sami Radha Pereira RN Unavailable [phone] Encounter Details Date Type Department Care Team (Late st Contact Info) Description 05/20/2018 Ancillary Orders Virtual Department [address] [place] [address] Beatriz Donaldson, DESIGN MAINTENANCE ENGINEER [address] [place] [address] Lymphadenopathy; Generalized enlarged lymph nodes Social History [...] Description 08/24/2025 1:30 PM EST Office Visit [facility] Medicine [address] [place] [address] [place] [address] Johann Hanson, TIFFANIE [address] [place] [address], [address] [place] [address] [email or web address] 09/10/2025 9:00 AM EST Office Visit [facility] Gastroenterology Clinic [address] [place] [id number] Unknown, Unknown, Shreyas Limon MD [address] [place] [id number] 09/21/2025 2:30 PM EST Office Visit [facility] Pulmonary, Allergy and Critical Care Medicine 10 [place] [address] Lester Hicks MD [address] [address] 10/13/2025 9:20 AM EST Office Visit [facility] [address] [place] [address] Doretha Glynn MD [address] [place] [address] [email or web address] 12/22/2025 8:30 AM EDT Office Visit [address] [place] [address] Johann Hanson, BURNISHING MACHINE OPERATOR [address] [place] [address], [address] [place] [address] [email or web address] 06/30/2026 8:00 AM EDT Office Visit [address] [place] [address] Johann Hanson, BURNISHING MACHINE OPERATOR [address] [place] [address], [address] [place] [address] [email or web address] documented as of this encounter [...] documented as of this encounter Care Teams Welding Machine Operator/Tender Relationship Specialty Start Date End Date Beatriz Donaldson, DESIGN MAINTENANCE ENGINEER [address] [place] [address] PCP - General Family Medicine 10/04/17 04/11/20 Mamta Whitney DO [address] [place] [address] [email or web address] PCP - General Family Medicine 04/12/20 02/08/21 Mamta Whitney DO [address] [place] [address] [email or web address] PCP - General Family Medicine 02/10/21 02/10/21 Johann Hanson CNP [address] [place] [address], [address] [place] [address] [email or web address] PCP - General Family Medicine 02/11/21 Tricia Balderas DO [address] [place] [address] [email or web address] Historical LMR Provider 07/28/17 10/15/21 Lester Hicks MD [address] [place] [address] [email or web address] Historical LMR Provider 07/28/17 Margaux Montanez MD [address] [place] [address], [address] [place] [address] [email or web address] Historical LMR Provider 07/28/17 Demario Floyd MD [address] [place] [address] [email or web address] Historical LMR Provider 07/28/17 10/15/21 Pam Benson MD [address] [place] [address] [email or web address] Historical LMR Provider 07/28/17 10/15/21 Adithya Campos BURNISHING MACHINE OPERATOR [address] [place] [address] [email or web address] Historical LMR Provider 07/28/17 12/25/21 Beatriz Donaldson NP [address] [place] [address] Historical LMR Provider 07/28/17 04/11/20 Khang Kilgore MD [address] [place] [address], [address] [place] [address] [email or web address] Insurance Assigned Provider 01/12/24 Luis Ignacio DO [address] [place] [address], [address] [place] [address] [email or web address] Cardiology 06/28/22 06/16/24 Flo Esteban MD [address] [place] [address] [email or web address] Cardiothoracic Surgery 06/28/22 06/16/24 Dilan Rowland MD [address] [place] [address], [address] [place] [address] [email or web address] Insurance Assigned Provider 07/15/22 08/13/22 Corby Prado MD [address] [place] [address], [address] [place] [address] [email or web address] Insurance Assigned Provider 08/13/22 09/16/22 Neisha Pinto RN [address] [place] [address], [address] [place] [address] [email or web address] Facilities Clerk 02/26/23 06/10/25 Shreyas Wilson MD [address] [place] [address] [email or web address] Gastroenterology 06/17/24 Doretha Glynn MD [address] [place] [address] Endocrinology 06/17/24 Izzy Hackett [address] [place] [address] [email or web address] PHCM Community Clinical Business Manager 09/11/24 09/11/24 Radha Pereira, RN [address] [place] [address] [email or web address] PHC Facilities ClerkHome Specialist 06/11/25 documented as of this encounter Additional Source Comments The information contained in this document represents components of the legal health record. It is not the complete legal health record.[facility]
--- OUTSIDE RECORDS SUMMARY | 2025-08-05 19:46 | XMS_ITS | Encounter Summary ---
Author Organization [facility] Address [address] [place] [address] [place] [address] Phone Care Team Providers Care Machine Biller Name Role Phone Lester Hicks MD Unavailable [phone] Margaux Montanez MD Unavailable [phone] Johann Hanson CNP Primary Care Provider [phone] Khang Kilgore MD Unavailable Luis Ignacio DO Unavailable Flo Esteban MD Unavailable [phone] Dilan Rowland MD Unavailable [phone] Corby Prado MD Unavailable [phone] Neisha Pinto RN Unavailable [email or web address] Shreyas Wilson MD Unavailable Doretha Glynn MD Unavailable [phone] Izzy Hackett Unavailable [email or web address] Radha Pereira RN Unavailable [phone] Encounter Details Date Type Department Care Team (Late st Contact Info) Description 02/28/2022 Procedure Pass [facility], Ct Scan - [address] [id number] Social History Tobacco Use Types Packs/Day Years [...] high school, GED, job training, learning the Icelandic language, technical skills, or developing parenting skills)? [...] EST Office Visit [facility] [address] [place] [address] [place] [address] Johann Hanson, TIFFANIE [address] [facility], [address] [place] [address] [email or web address] 09/10/2025 9:00 AM EST Office Visit [facility] Gastroenterology Clinic 10 [place] [address] Unknown, Unknown, Shreyas Limon MD 10 [facility] 2 [place] [address] 09/21/2025 2:30 PM EST Office Visit [facility] Pulmonary, Allergy and Critical Care Medicine 10 [place] [address] Lester Hicks MD 10 [facility] 2nd [place] [address] 10/13/2025 9:20 AM EST Office Visit [facility] [address] [place] [address] Doretha Glynn MD [address] [place] [address] [email or web address] 12/22/2025 8:30 AM EDT Office Visit [address] [place] [address] Johann Hanson, ICE SELLER [address] [place] [address], [address] [place] [address] [email or web address] 06/30/2026 8:00 AM EDT Office Visit [address] [place] [address] Johann Hanson, ICE SELLER [address] [place] [address], [address] [place] [address] [email or web address] documented as of this encounter [...] documented as of this encounter Care Teams Machine Biller Relationship Specialty Start Date End Date Johann Hanson CNP [address] [place] [address], [address] [place] [address] PCP - General Family Medicine 02/11/21 Lester Hicks MD [address] [place] [address] Historical LMR Provider 07/28/17 Margaux Montanez MD [address] [place] [address], [address] [place] [address] [email or web address] Historical LMR Provider 07/28/17 Khang Kilgore MD [address] [place] [address], [address] [place] [address] Insurance Assigned Provider 01/12/24 Luis Ignacio DO [address] [place] [address], [address] [place] [address] Cardiology 06/28/22 06/16/24 Flo Esteban MD [address] [place], [place] [address]D[address] [place] [address] [email or web address] Cardiothoracic Surgery 06/28/22 06/16/24 Dilan Rowland MD [address] [place] [address], [address] [place] [address] Insurance Assigned Provider 07/15/22 08/13/22 Corby Prado MD [address] [place] [address], [address] [place] [address] Insurance Assigned Provider 08/13/22 09/16/22 Neisha Pinto RN [address] [place] [address], [address] [place] [address] [email or web address] Retail Buyer 02/26/23 06/10/25 Shreyas Wilson MD [address] [place] [address] Gastroenterology 06/17/24 Doretha Glynn MD [address] [place] [address] 3[address] [place] [address] Endocrinology 06/17/24 Izzy Hackett [address] [place] [address] [email or web address] PHCM Community Oracle Soa Developer 09/11/24 09/11/24 Radha Pereira, RANDI [address] [place] [address] PHCM Retail BuyerAnimal Researcher 06/11/25 documented as of this encounter Additional Source Comments The information contained in this document represents components of the legal health record. It is not the complete legal health record.[facility]
--- OUTSIDE RECORDS SUMMARY | 2025-08-05 19:46 | XMS_ITS | Encounter Summary ---
Author Organization [facility] Address [address] [place] [address] Phone Care Team Providers Care Presetter Operator Name Role Phone Lester Hicks MD Unavailable [phone] Margaux Montanez MD Unavailable Johann Hanson CNP Primary Care Provider [phone] Khang Kilgore MD Unavailable Luis Ignacio DO Unavailable Flo Esteban MD Unavailable [phone] Neisha Pinto RN Unavailable [email or web address] Shreyas Wilson MD Unavailable Doretha Glynn MD Unavailable [phone] Izzy Hackett Unavailable [email or web address] Radha Pereira RN Unavailable Encounter Details Date Type Department Care Team (Latest Contact Info) Description 12/28/2023 Transcribe Orders Virtual Department 30 [place] [address] Shreyas Wilson MD [address] [place] [address] [id number] Dysphagia, unspecified type (Primary Dx); Nausea and [...] high school, GED, job training, learning the Eritrean language, technical skills, or developing parenting skills)? [...] Description 08/24/2025 1:30 PM EST Office Visit [address] [place] [address] Johann Hanson, DENTAL TECHNICIAN APPRENTICE [address] [place] [address], [address] [place] [address] [email or web address] 09/10/2025 9:00 AM EST Office Visit [facility] 10 [place] [address] Unknown, Unknown, Shreyas Limon MD [address] [place] [address] 09/21/2025 2:30 PM EST Office Visit [facility] Pulmonary, Allergy and Critical Care Medicine 10 [place] [address] Lester Hicks MD [address] [place] [address] 10/13/2025 9:20 AM EST Office Visit [facility] [address] [place] [address] [place] [address] Doretha Glynn MD [address] [place] [address] [email or web address] 12/22/2025 8:30 AM EDT Office Visit [address] [place] [address] Johann Hanson, DENTAL TECHNICIAN APPRENTICE [address] [place] [address], [address] [place] [address] [email or web address] 06/30/2026 8:00 AM EDT Office Visit [facility] [address] [place] [address] Johann Hanson, DENTAL TECHNICIAN APPRENTICE [address], [address] [place] [address] [email or web address] documented as of this encounter Results [...] createdby Ronnell Maurer. Shreyas Wilson MD IMG FL MISC Final [...] documented as of this encounter Care Teams Presetter Operator Relationship Specialty Start Date End Date Johann Hanson CNP [address] [place] [address], [address] [place] [address] PCP - General Family Medicine 02/11/21 Lester Hicks MD [address] [place] [address] Historical LMR Provider 07/28/17 Margaux Montanze MD [address] [place] [address], [address] [place] [address] [email or web address] Historical LMR Provider 07/28/17 Khang Kilgore MD [address] [place] [address], [address] [place] [address] Insurance Assigned Provider 01/12/24 Luis Ignacio DO [address] [place] [address], [address] [place] [address] Cardiology 06/28/22 06/16/24 Flo Esteban MD [address] [place] [address]D[address] [place] [address] [email or web address] Cardiothoracic Surgery 06/28/22 06/16/24 Neisha Pinto, RANDI [address] [place] [address] F[address] [place] [address] [email or web address] missouri mental [facility] center PHCM Flatbed Company Driver 02/26/23 06/10/25 Shreyas Wilson MD [address] [place] [address] Gastroenterology 06/17/24 Doretha Glynn MD [address] [place] [address] Endocrinology 06/17/24 Izzy Hackett [address] [place] [address] [email or web address] PHC Community Snipper 09/11/24 09/11/24 Radha Pereira RN [address] [place] [address] PHC Flatbed Company DriverStrap Folding Machine Operator 06/11/25 documented as of this encounter Additional Source Comments The information contained in this document represents components of the legal health record. It is not the complete legal health record.[facility]
--- OUTSIDE RECORDS SUMMARY | 2025-08-05 19:46 | XMS_ITS | Encounter Summary ---
Author Organization [facility] Address [address] [place] [address] [place] [address] Phone Care Team Providers Care Cctv Technician Name Role Phone Tricia Balderas DO Unavailable Lester Hicks MD Unavailable [phone] Margaux Montanez MD Unavailable Demario Floyd MD Unavailable Pam Benson MD Unavailable Adithya Campos AFFILIATE MANAGER Unavailable Mamta Whitney DO Primary Care Provider [phone] Mamta Whitney DO Primary Care Provider [phone] Johann Hanson AFFILIATE MANAGER Primary Care Provider [phone] Khang Kilgore MD Unavailable Luis Ignacio DO Unavailable Flo Esteban MD Unavailable [phone] Dilan Rowland MD Unavailable Corby Prado MD Unavailable [phone] Neisha Pinto RN Unavailable [email or web address] Shreyas Wilson MD Unavailable Doretha Glynn MD Unavailable [phone] Izzy Hackett Unavailable sami Radha Pereira RN Unavailable Encounter Details Date Type Department Care Team (Latest Contact Info) Description 04/14/2020 Transcribe Orders [facility] Laboratory 10 [facility] 2nd [place] [address] Alise Winkler PA-C 310 [facility]. [address] [place] [address] Fatigue, unspecified type (Primary Dx); Diarrhea, unspecified [...] Description 08/24/2025 1:30 PM EST Office Visit [address] [address] Johann Hanson, TIFFANIE [address] [place] [address], [address] [place] [address] [email or web address] 09/10/2025 9:00 AM EST Office Visit [facility] 10 [place] [address] Unknown, Unknown, Shreyas Limon MD 10 [facility] 2 [place] [address] 09/21/2025 2:30 PM EST Office Visit [facility] Pulmonary, Allergy and Critical Care Medicine 10 [place] [address] Lester Hicks MD [address] [place] [address] 10/13/2025 9:20 AM EST Office Visit [facility] [address] [place] [address] [place] [address] Doretha Glynn MD [address] [place] [address] [email or web address] 12/22/2025 8:30 AM EDT Office Visit [address] [place] [address] Johann Hanson, AFFILIATE MANAGER [address] [place] [address], [address] [place] [address] [email or web address] 06/30/2026 8:00 AM EDT Office Visit [address] [place] [address] Johann Hanson, AFFILIATE MANAGER [address] [place] [address], [address] [place] [address] [email or web address] documented as of this encounter Results * Giardia antigen screen (04/15/2020 4:18 PM EDT) [facility] GIARDIA ANTIGEN Negative Negative [facility] DPT OF LAB MED AND PAT+ Comment: (NOTE) ADDITIONAL INFORMATION Test Performed by Enzyme Immunoassay. Stool (Stool) 04/15/2020 4:1 8 PM EDT 04/15/2020 4:24 PM EDT us Alise Winkler PA-C MICROBIOLOGY - GENERAL ORDERABL ES Final Result Performing Organization Address City/[facility] Co de Phone Number [facility] DPT OF LAB MED AND PAT+ [address] [place] [address] * Ova and parasites, stool (04/15/2020 8:00 AM EDT) Special Requests None 04/15/2020 4:19 PM EDT [facility] DIRECT EXAM NO PARASITES FOUND BY DIRECT OR CONCENTRATION METHODS 04/26/2020 10:47 AM EDT [facility] DIRECT EXAM No parasites found by Trichrome Stain 04/26/2020 10:47 AM EDT [facility] Stool (Stool) 04/15/2020 8:0 0 AM EDT 04/15/2020 4:24 PM EDT us Alise Winkler PA-C MICROBIOLOGY - GENERAL ORDERABL ES Final Result Performing Organization Address [facility] Co de Phone Number [address] [address] * Fecal immunochemical test x1 (FIT) (04/15/2020 8:00 AM EDT) [facility] Immuno Fecal Occult Negative [facility] Stool (Stool) 04/15/2020 8:0 0 AM EDT 04/15/2020 4:23 PM EDT Alise Winkler PA-C BODY FLUIDS AND STOOLS ORDERABL ES Final Result Performing Organization Address [facility] de Phone Number [address] [address] * Fecal leukocyte examination (04/15/2020 8:00 AM EDT) Special Requests None 04/15/2020 4:19 PM EDT [facility] GRAM STAIN No WBC seen on smear. 04/16/2020 8:47 AM EDT [facility] Stool (Stool) 04/15/2020 8:0 0 AM EDT 04/15/2020 4:24 PM EDT us Alise Winkler PA-C MICROBIOLOGY - GENERAL ORDERABL ES Final Result Performing Organization Address [facility] Co de Phone Number [address] [address] * Stool culture (04/15/2020 8:00 AM EDT) Special Requests None 04/15/2020 4:19 PM EDT [facility] Stool Culture NO SALMONELLA, SHIGELLA OR CAMPYLOBACTER ISOLATED 04/16/2020 8:09 AM EDT [facility] Stool (Stool) 04/15/2020 8:0 0 AM EDT 04/15/2020 4:24 PM EDT us Alise Winkler PA-C MICROBIOLOGY - GENERAL ORDERABL ES Final Result Performing Organization Address [facility] de Phone Number [address] [address] * Immunoglobulin A (04/14/2020 12:05 PM EDT) IgA 84 70 - 400 mg/dL [facility] Blood 04/14/2020 12:0 5 PM EDT 04/14/2020 12:23 PM EDT us Alise Winkler PA-C LAB BLOOD ORDERABLES Final Resu lt Performing Organization Address [facility] Co de Phone Number [address] [address] * Tissue transglutaminase IgA (04/14/2020 12:05 PM EDT) TTG IGA ANTIBODY <1.2 <4.0 (Negative) U/mL [facility] Blood 04/14/2020 12:0 5 PM EDT 04/14/2020 12:22 PM EDT us Alise Winkler PA-C LAB BLOOD ORDERABLES Final Resu lt [facility] [address] [place] [address] documented in this encounter Visit Diagnoses Diagnosis [...] documented as of this encounter Care Teams Cctv Technician Relationship Specialty Start Date End Date Mamta Whitney DO [address] [place] [address] [email or web address] PCP - General Family Medicine 04/12/20 02/08/21 Mamta Whitney DO [address] [place] [address] [email or web address] PCP - General Family Medicine 02/10/21 02/10/21 Johann Hanson CNP [address] [place] [address], [address] [place] [address] [email or web address] PCP - General Family Medicine 02/11/21 Tricia Balderas DO [address] [place] [address] [email or web address] Historical LMR Provider 07/28/17 10/15/21 Lester Hicks MD [address] [place] [address] [email or web address] Historical LMR Provider 07/28/17 Margaux Montanez MD 22 [facility], [address] [place] [address] [email or web address] Historical LMR Provider 07/28/17 Demario Floyd MD [address] [place] [address] [email or web address] Historical LMR Provider 07/28/17 2 Pam Benson MD [address] [place] [address], [address] [place] [address] Historical LMR Provider 07/28/17 Adithya Campos, AFFILIATE MANAGER [address] [place] [address], 2[address] [place] [address] [email or web address] Historical LMR Provider 07/28/17 12/25/21 Khang Kilgore MD [address] [place] [address], [address] [place] [address] Insurance Assigned Provider 01/12/24 Luis Ignacio DO [address] [place] [address], [address] [place] [address] Cardiology 06/28/22 06/16/24 Fol Esteban MD [address] [place] [address] [email or web address] Cardiothoracic Surgery 06/28/22 06/16/24 Dilan Rowland MD [address] [place] [address], [address] [place] [address] Insurance Assigned Provider 07/15/22 08/13/22 Corby Prado MD [address] [place] [address], [address] [place] [address] Insurance Assigned Provider 08/13/22 09/16/22 Neisha Pinto RN [address] [place] [address], [address] [place] [address] [email or web address] PHCM Senior Technical Manager 02/26/23 06/10/25 Shreyas Wilson MD [address] [place] [address] Gastroenterology 06/17/24 Doretha Glynn MD [address] [place] [address] 3[address] [place] [address] Endocrinology 06/17/24 Izzy Hackett [address] [place] [address] [email or web address] PHCM Community Sizing Sponger 09/11/24 09/11/24 Radha Pereira, RN [address] [place] [address] PHCM Senior Technical ManagerPortal Architect 06/11/25 documented as of this encounter Additional Source Comments The information contained in this document represents components of the legal health record. It is not the complete legal health record.[facility]
--- OUTSIDE RECORDS SUMMARY | 2025-08-05 19:46 | XMS_ITS | Encounter Summary ---
Author Organization [facility] Address [address] [place] [address] Phone Care Team Providers Care Talent Development Analyst Name Role Phone Lester Hicks MD Unavailable [phone] Margaux Montanez MD Unavailable [phone] Johann Hanson CNP Primary Care Provider [phone] Khang Kilgore MD Unavailable [phone] Luis Ignacio DO Unavailable Flo Esteban MD Unavailable [phone] Neisha Pinto RN Unavailable [email or web address] Shreyas Wilson MD Unavailable [phone] Doretha Glynn MD Unavailable [phone] Izzy Hackett Unavailable [email or web address] Radha Pereira RN Unavailable [phone] Encounter Details Date Type Department Care Team (Late st Contact Info) Description 12/07/2022 Procedure Pass [facility] Echo [facility] 30 [place], [place] [phone] Social History Tobacco Use Types Packs/Day Years [...] high school, GED, job training, learning the Irish language, technical skills, or developing parenting [...] 12/07/2022 9:18 AM Alise Hamilton, RN * [place] Suicide Severity Rating Scale (Screener/Recent Self-Report) Question [...] Description 08/24/2025 1:30 PM EST Office Visit [address] [place] [address] Johann Hanson CNP [address] [place] [address], [address] [place] [address] [email or web address] 09/10/2025 9:00 AM EST Office Visit [facility] 10 [place] [address] Unknown, Unknown, Shreyas Limon MD [address] [address] 09/21/2025 2:30 PM EST Office Visit [facility] Pulmonary, Allergy and Critical Care Medicine 10 [facility] [place] [address] Lester Hicks MD [address] [place] [address] 2[address] [place] [address] 10/13/2025 9:20 AM EST Office Visit [facility] [address] [place] [address] [place] [address] Doretha Glynn MD [address] [place] [address] 3[address] [place] [address] [email or web address] 12/22/2025 8:30 AM EDT Office Visit [address] [place] [address] Johann Hanson CNP [address] [place] [address], [address] [place] [address] [email or web address] 06/30/2026 8:00 AM EDT Office Visit [facility] [address] [place] [address] Johann Hanson CNP 22 [facility], [address] [place] [address] [email or web address] documented as of this encounter Visit Diagnoses Not on filedocumented in this encounter Additional Health Concerns Infection Onset Date Last Indicated Resolved Time COVID-19 10/07/2023 10/07/2023 10/28/2023 1:21 AM EST Assessment Noted Time PHQ-2 Depression Total Score: 0 05/15/20 1:45 PM EDT documented as of this encounter Care Teams Talent Development Analyst Relationship Specialty Start Date End Date Johann Hanson CNP [address] [place] [address], [address] [place] [address] PCP - General Family Medicine 02/11/21 Lester Hicks MD [address] [place] [address] Historical LMR Provider 07/28/17 Margaux Montanez MD [address] [place] [address], [address] [place] [address] [email or web address] Historical LMR Provider 07/28/17 Khang Kilgore MD [address] [place] [address], [address] [place] [address] Insurance Assigned Provider 01/12/24 Luis Ignacio DO [address] [place] [address], [address] [place] [address] Cardiology 06/28/22 06/16/24 Flo Esteban MD [address] [place] [address] [email or web address] Cardiothoracic Surgery 06/28/22 06/16/24 Neisha Pinto RN [address] [place] [address] [email or web address] PHCM Industrial Hygiene Engineer 02/26/23 06/10/25 Shreyas Wilsno MD [address] [place] [address] Gastroenterology 06/17/24 Doretha Glynn MD [address] [place] [address] Endocrinology 06/17/24 Izzy Hackett [address] [place] [address] [email or web address] PHC Community Tenter Frame Operator 09/11/24 09/11/24 Radha Pereira RN [address] [place] [address] PHCM Industrial Hygiene EngineerMachine Shop Helper 06/11/25 documented as of this encounter Additional Source Comments The information contained in this document represents components of the legal health record. It is not the complete legal health record.[facility]
--- OUTSIDE RECORDS SUMMARY | 2025-08-05 19:46 | XMS_ITS | Encounter Summary ---
Author Organization [facility] Address [address] [place] [address] Phone Care Team Providers Care Manager Med Surg Name Role Phone Lester Hicks MD Unavailable [phone] Margaux Montanez MD Unavailable [phone] Johann Hanson CNP Primary Care Provider [phone] Khang Kilgore MD Unavailable Luis Ignacio DO Unavailable [phone] Flo Esteban MD Unavailable [phone] Neisha Pinto RN Unavailable [email or web address] Shreyas Wilson MD Unavailable [phone] Doretha Glynn MD Unavailable [phone] Izzy Hackett Unavailable [email or web address] Radha Pereira RN Unavailable [phone] Encounter Details Date Type Department Care Team (Late st Contact Info) Description 12/08/[address] [facility] Cardiovascular And Interventional Radiology 30 [place], [place] [phone] Social History Tobacco Use Types Packs/Day Years [...] high school, GED, job training, learning the South Sudanese language, technical skills, or developing parenting [...] Description 08/24/2025 1:30 PM EST Office Visit [facility] [place] [facility] [address] [place] [address] Johann Hanson, TIFFANIE 22 [facility], [address] [place] [address] [email or web address] 09/10/2025 9:00 AM EST Office Visit [facility]astroenterology Clinic 10 [place] [address] Unknown, Unknown, Shreyas Limon MD 10 [facility] 2 [place] [address] 09/21/2025 2:30 PM EST Office Visit [facility] Pulmonary, Allergy and Critical Care Medicine 10 [facility] [place] [address] Lester Hicks MD [address] [place] [address] 10/13/2025 9:20 AM EST Office Visit [facility] [address] [place] [address] [place] [address] Doretha Glynn MD [address] [place] [address] [email or web address] 12/22/2025 8:30 AM EDT Office Visit [address] [place] [address] Johann Hanson, WATER TAXI FERRY OPERATOR [address] [place] [address], [address] [place] [address] [email or web address] 06/30/2026 8:00 AM EDT Office Visit [address] [place] [address] Johann Hanson, WATER TAXI FERRY OPERATOR [address] [place] [address], [address] [place] [address] [email or web address] documented as of this encounter Visit Diagnoses Not on filedocumented in this encounter Additional Health Concerns Infection Onset Date Last Indicated Resolved Time COVID-19 10/07/2023 10/07/2023 10/28/2023 1:21 AM EST Assessment Noted Time PHQ-2 Depression Total Score: 0 05/15/20 1:45 PM EDT documented as of this encounter Care Teams Manager Med Surg Relationship Specialty Start Date End Date ValentinJohann TIFFANIE [address] [place] [address], [address] [place] [address] PCP - General Family Medicine 02/11/21 Lester Hicks MD [address] [place] [address] 2nd [place] [address] [email or web address] Historical LMR Provider 07/28/17 Margaux Montanez MD [address] [place] [address], [address] [place] [address] [email or web address] Historical LMR Provider 07/28/17 Khang Kilgore MD [address] [place] [address], [address] [place] [address] [email or web address] Insurance Assigned Provider 01/12/24 Luis Ignacio DO [address] [place] [address], [address] [place] [address] Cardiology 06/28/22 06/16/24 Flo Esteban MD [address] [place] [address]7 [place] [address] [email or web address] Cardiothoracic Surgery 06/28/22 06/16/24 Neisha Pinto RN [address] [place], [place] [address] [place] [address] [email or web address] PHCM Senior Partner 02/26/23 06/10/25 Shreyas Wilson MD [address] [place] [address] Gastroenterology 06/17/24 Doretha Glynn MD [address] [place] [address] Endocrinology 06/17/24 Izzy Hackett [address] [place] [address] [email or web address] PHCM Community Wellness Rn 09/11/24 09/11/24 Radha Pereira, RN [address] [place] [address] [email or web address] PHCM Senior PartnerFilm Producer 06/11/25 documented as of this encounter Additional Source Comments The information contained in this document represents components of the legal health record. It is not the complete legal health record.[facility]
--- OUTSIDE RECORDS SUMMARY | 2025-08-05 19:46 | XMS_ITS | Encounter Summary ---
Author Organization [facility] Address [address] [place] [address] Phone Care Team Providers Care Code Machine Operator Name Role Phone L[place] Hicks MD Unavailable [phone] Margaux Montanez MD Unavailable Johann Hanson CNP Primary Care Provider [phone] Khang Kilgore MD Unavailable [phone] Luis Ignacio DO Unavailable Flo Esteban MD Unavailable [phone] Neisha Pinto RN Unavailable [email or web address] Shreyas Wilson MD Unavailable Doretha Glynn MD Unavailable [phone] Izzy Hackett Unavailable [email or web address] Radha Pereira RN Unavailable [phone] Encounter Details Date Type Department Care Team (Late st Contact Info) Description 12/13/2022 Procedure Pass [facility] Cardiovascular And Interventional Radiology [address] [place], [place] [id number] Social History Tobacco Use Types Packs/Day Years [...] Description 08/24/2025 1:30 PM EST Office Visit [facility] [address] [place] [address] Johann Hanson, TIFFANIE 22 [facility], [address] [place] [address] [email or web address] 09/10/2025 9:00 AM EST Office Visit [facility] 10 [place] [address] Unknown, Unknown, Shreyas Limon MD 10 [facility] 2 [place] [address] 09/21/2025 2:30 PM EST Office Visit [facility] Pulmonary, Allergy and Critical Care Medicine 10 [facility] [place] [address] L[place] Hicks MD [address] [place] [address] 10/13/2025 9:20 AM EST Office Visit [facility] [address] [place] [address] [place] [address] Doretha Glynn MD [address] [place] [address] [email or web address] 12/22/2025 8:30 AM EDT Office Visit [address] [place] [address] Johann Hanson, FIELD LOGISTICS COORDINATOR [address] [place] [address], [address] [place] [address] [email or web address] 06/30/2026 8:00 AM EDT Office Visit [address] [place] [address] Johann Hanson, FIELD LOGISTICS COORDINATOR [address] [place] [address], [address] [place] [address] [email or web address] documented as of this encounter Visit Diagnoses Not on filedocumented in this encounter Additional Health Concerns Infection Onset Date Last Indicated Resolved Time COVID-19 10/07/2023 10/07/2023 10/28/2023 1:21 AM EST Assessment Noted Time PHQ-2 Depression Total Score: 0 05/15/20 1:45 PM EDT documented as of this encounter Care Teams Code Machine Operator Relationship Specialty Start Date End Date ValentinJohann TIFFANIE [address] [place] [address], [address] [place] [address] PCP - General Family Medicine 02/11/21 L[place] Hicks MD [address] [place] [address] 2nd [place] [address] [email or web address] Historical LMR Provider 07/28/17 Margaux Montanez MD [address] [place] [address], [address] [place] [address] [email or web address] Historical LMR Provider 07/28/17 Khagn Kilgore MD [address] [place] [address], [address] [place] [address] [email or web address] Insurance Assigned Provider 01/12/24 Luis Ignacio DO [address] [place] [address], [address] [place] [address] Cardiology 06/28/22 06/16/24 Flo Esteban MD [address] [place] [address] [place] [address] [email or web address] [email or web address] [email or web address] .[email or web address] Cardiothoracic Surgery 06/28/22 06/16/24 Neisha Pinto RN [address] [place], [place] [address] [place] [address] [email or web address] PHCM Loop Machine Operator 02/26/23 06/10/25 Shreyas Wilson MD [address] [place] [address] Gastroenterology 06/17/24 Doretha Glynn MD [address] [place] [address] Endocrinology 06/17/24 Izzy Hackett [address] [place] [address] [email or web address] PHCM Community Desktop Publishing Specialist 09/11/24 09/11/24 Radha Pereira, RN [address] [place] [address] [email or web address] PHCM Loop Machine OperatorClay Roaster 06/11/25 documented as of this encounter Additional Source Comments The information contained in this document represents components of the legal health record. It is not the complete legal health record.[facility]
--- OUTSIDE RECORDS SUMMARY | 2025-08-05 19:46 | XMS_ITS | Encounter Summary ---
Author Organization [facility] Address [address] [place] [address] [place] [address] Phone Care Team Providers Care Hydro Plant Operator Name Role Phone [place] Hicks MD Unavailable [phone] Margaux Montanez MD Unavailable Johann Hanson CNP Primary Care Provider [phone] Khang Kilgore MD Unavailable [phone] Neisha Pinto RN Unavailable [email or web address] Shreyas Wilson MD Unavailable [phone] Doretha Glynn MD Unavailable [phone] Radha Pereira RN Unavailable [phone] Encounter Details Date Type Department Care Team (Late st Contact Info) Description 01/13/2025 Procedure Pass [facility] L2 PRU [address] [place] [address] Social History Tobacco Use Types Packs/Day Years [...] Description 08/24/2025 1:30 PM EST Office Visit [address] [place] [address] Johann Hanson, FUELER [address] [place] [address], [address] [place] [address] [email or web address] 09/10/2025 9:00 AM EST Office Visit [facility] [address] [place] [address] Unknown, Unknown, Shreyas Limon MD [address] [place] [address] 09/21/2025 2:30 PM EST Office Visit [facility] Pulmonary, Allergy and Critical Care Medicine 10 [place] [address] [place] Hicks MD [address] [place] [address] 10/13/2025 9:20 AM EST Office Visit [facility] [address] [place] [address] Doretha Glynn MD [address] [place] [address] [email or web address] 12/22/2025 8:30 AM EDT Office Visit [address] [place] [address] Johann Hanson, TIFFANIE [address] [place] [address], [address] [place] [address] [email or web address] 06/30/2026 8:00 AM EDT Office Visit [address] [place] [address] Johann Hanson CNP 22 [facility], [address] [place] [address] [email or web address] documented as of this encounter Visit Diagnoses Not on filedocumented in this encounter Additional Health Concerns Assessment Noted Time PHQ-9 Depression Total Score: 4 10/29/19 1:54 PM EST PHQ-2 Depression Total Score: 0 06/10/20 9:22 AM EDT documented as of this encounter Care Teams Hydro Plant Operator Relationship Specialty Start Date End Date Johann Hanson CNP [address] [place] [address], [address] [place] [address] PCP - General Family Medicine 02/11/21 [place] Hicks MD [address] [place] [address] [email or web address] Historical LMR Provider 07/28/17 Margaux Montanez MD [address] [place] [address], [address] [place] [address] Historical LMR Provider 07/28/17 Khang Kilgore MD [address] [place] [address], [address] [place] [address] Insurance Assigned Provider 01/12/24 Neisha Pinto RN [address] [place] [address], [address] [place] [address] [email or web address] PHCM Box Car Washer 02/26/23 06/10/25 Shreyas [place] MD [address] [place] [address] Gastroenterology 06/17/24 Doretha Glynn MD [address] [place] [address] Endocrinology 06/17/24 Radha Pereira RN [address] [place] [address] [email or web address] PHC Box Car WasherMedical Assisting Instructor 06/11/25 documented as of this encounter Additional Source Comments The information contained in this document represents components of the legal health record. It is not the complete legal health record.[facility]
--- OUTSIDE RECORDS SUMMARY | 2025-08-05 19:46 | XMS_ITS | Encounter Summary ---
Author Organization [facility] Address [address] [place] [address] [place] [address] Phone Care Team Providers Care Chief Medical Officer Name Role Phone [place] Hicks MD Unavailable [phone] Margaux Montanez MD Unavailable Johann Hanson CNP Primary Care Provider [phone] Khang Kilgore MD Unavailable Luis Ignacio DO Unavailable Flo Esteban MD Unavailable [phone] Dilan Rowland MD Unavailable [phone] Corby Prado MD Unavailable [phone] Neisha Pinto RN Unavailable [email or web address] Shreyas Wilson MD Unavailable [phone] Doretha Glynn MD Unavailable [phone] Izzy Hackett Unavailable [email or web address] Radha Pereira RN Unavailable Encounter Details Date Type Department Care Team (Late st Contact Info) Description 02/10/2022 Procedure Pass Non-Invasive Cardiology [address] [place], [place] [id number] Social History Tobacco Use Types Packs/Day Years [...] EST Office Visit [facility] [address] [place] [address] [place] [id number] Johann Hanson, TIFFANIE 22 [facility], [address] [place] [address] [email or web address] 09/10/2025 9:00 AM EST Office Visit [facility] 10 [place] [address] Unknown, Unknown, Shreyas Limon MD 10 [facility] 2 [place] [address] 09/21/2025 2:30 PM EST Office Visit [facility] Pulmonary, Allergy and Critical Care Medicine 10 [facility] [place] [address] [place] Hicks MD 10 [facility] 2nd [place] [address] 10/13/2025 9:20 AM EST Office Visit [facility] [address] [place] [address] [place] [address] Doretha Glynn MD [address] [place] [address] [email or web address] 12/22/2025 8:30 AM EDT Office Visit [address] [place] [address] Johann Hanson, MATERIAL SPREADER [address] [place] [address], [address] [place] [address] [email or web address] 06/30/2026 8:00 AM EDT Office Visit [address] [place] [address] Johann Hanson, MATERIAL SPREADER [address] [place] [address], [address] [place] [address] [email or web address] documented as of this encounter [...] documented as of this encounter Care Teams Chief Medical Officer Relationship Specialty Start Date End Date Johann Hanson CNP [address] [place] [address], [address] [place] [address] PCP - General Family Medicine 02/11/21 [place] Hicks MD [address] [place] [address] Historical LMR Provider 07/28/17 Margaux Montanez MD [address] [place] [address], [address] [place] [address] [email or web address] Historical LMR Provider 07/28/17 Khang Kilgore MD [address] [place] [address], [address] [place] [address] Insurance Assigned Provider 01/12/24 Luis Ignacio DO [address] [place] [address], [address] [place] [address] Cardiology 06/28/22 06/16/24 Flo Esteban MD [address] [place] [address] [place] [address] [email or web address] Cardiothoracic Surgery 06/28/22 06/16/24 Dilan Rowland MD [address] [place] [address], [address] [place] [address] Insurance Assigned Provider 07/15/22 08/13/22 Corby Prado MD [address] [place] [address], [address] [place] [address] Insurance Assigned Provider 08/13/22 09/16/22 Neisha Pinto RN [address] [place] [address], [address] [place] [address] [email or web address] [email or web address] PHCM Assistant Production Manager 02/26/23 06/10/25 Shreyas Wilson MD [address] [place] [address] Gastroenterology 06/17/24 Doretha Glynn MD [address] [place] [address] 3rd [place] [address] Endocrinology 06/17/24 Izzy Hackett [address] [place] [address] [email or web address] PHCM Community Leader Tier 09/11/24 09/11/24 Radha Pereira, RANDI [address] [place] [address] PHCM Assistant Production ManagerEvent Security Officer 06/11/25 documented as of this encounter Additional Source Comments The information contained in this document represents components of the legal health record. It is not the complete legal health record.[facility]
--- OUTSIDE RECORDS SUMMARY | 2025-08-05 19:46 | XMS_ITS | Encounter Summary ---
Author Organization [facility] Address [address] [place] [address] Phone Care Team Providers Care Industrial Production Manager Name Role Phone Beatriz Donaldson STATEMENT REQUEST CLERK Primary Care Provider [phone] Tricia Balderas DO Unavailable [phone] [place] Hicks MD Unavailable [phone] Margaux Montanez MD Unavailable [phone] Demario Floyd MD Unavailable Pam Benson MD Unavailable [phone] Adithya Campos MIRROR SILVERER Unavailable [phone] Beatriz Donaldson STATEMENT REQUEST CLERK Unavailable [phone] Beatriz Donaldson STATEMENT REQUEST CLERK Primary Care Provider [phone] Mamta Whitney DO Primary Care Provider [phone] Mamta Whitney DO Primary Care Provider [phone] Johann Hanson MIRROR SILVERER Primary Care Provider [phone] Khang Kilgore MD Unavailable Luis Ignacio DO Unavailable Flo Esteban MD Unavailable [phone] Dilan Rowland MD Unavailable [phone] Corby Prado MD Unavailable [phone] Neisha Pinto RN Unavailable [email or web address] Shreyas Wilson MD Unavailable [phone] Doretha Glynn MD Unavailable [phone] Izzy Hackett Unavailable sami Radha Pereira RN Unavailable Encounter Details Date Type Department Care Team (Late st Contact Info) Description 09/03/2017 Ancillary Orders [facility] External Provider Virtual Department 30 [place] [address] Beatriz Donaldson, STATEMENT REQUEST CLERK [address] [place] [address] Breast screening Social History Tobacco Use Types [...] Description 08/24/2025 1:30 PM EST Office Visit [facility] Medicine [address] [place] [address] Johann Hanson, TIFFANIE 22 [facility], [address] [place] [address] [email or web address] 09/10/2025 9:00 AM EST Office Visit [facility] [address] [place] [address] [id number] Unknown, Unknown, Shreyas Limon MD [address] [place] [id number] 09/21/2025 2:30 PM EST Office Visit [facility]monary, Allergy and Critical Care Medicine 10 [facility] [place] [address] [place] Hicks MD [address] [place] [address] 10/13/2025 9:20 AM EST Office Visit [facility] [address] [place] [address] [place] [address] Doretha Glynn MD [address] [place] [address] [email or web address] 12/22/2025 8:30 AM EDT Office Visit [address] [place] [address] Johann Hanson, MIRROR SILVERER [address] [place] [address], [address] [place] [address] [email or web address] 06/30/2026 8:00 AM EDT Office Visit [address] [place] [address] Johann Hanson, MIRROR SILVERER [address] [place] [address], [address] [place] [address] [email or web address] documented as of this encounter [...] There are scattered fibroglandular densities. POS - [id number] Narrative 08/12/2018 12:17 PM EST Full-field digital [...] There are scattered fibroglandular densities. POS - [id number] Beatriz Donaldson NP IMG MG EXAMS Final Result documented in [...] documented as of this encounter Care Teams Industrial Production Manager Relationship Specialty Start Date End Date Beatriz Donaldson, STATEMENT REQUEST CLERK PCP - General 07/26/17 10/03/17 Beatriz Donaldson STATEMENT REQUEST CLERK PCP - General Family Medicine 10/04/17 04/11/20 Mamta Whitney DO [address] [place] [address] [email or web address] PCP - General Family Medicine 04/12/20 02/08/21 Mamta Whitney DO [address] [place] [address] [email or web address] PCP - General Family Medicine 02/10/21 02/10/21 Johann Hanson CNP [address] [place] [address] [address] [place] [address] [email or web address] PCP - General Family Medicine 02/11/21 Tricia Balderas DO [address] [place] [address] [email or web address] Historical LMR Provider 07/28/17 10/15/21 [place] Hicks MD [address] [place] [address] [email or web address] Historical LMR Provider 07/28/17 Margaux Montanez MD [address] [place] [address], [address] [place] [address] Historical LMR Provider 07/28/17 Demario Floyd MD [address] [place] [address] [email or web address] Historical LMR Provider 07/28/17 10/15/21 Pam Benson MD [address] [place] [address] [email or web address] Historical LMR Provider 07/28/17 10/15/21 Adithya Campos MIRROR SILVERER [address] [place] [address] [email or web address] Historical LMR Provider 07/28/17 12/25/21 Beatriz Donaldson NP [address] [place] [address] Historical LMR Provider 07/28/17 04/11/20 Khang Kilgore MD [address] [place] [address], [address] [place] [address] [email or web address] Insurance Assigned Provider 01/12/24 Luis Ignacio DO [address] [place] [address], [address] [place] [address] Cardiology 06/28/22 06/16/24 Flo Esteban MD [address] [place] [address] [address] [place] [address] [email or web address] Cardiothoracic Surgery 06/28/22 06/16/24 Dilan Rowland MD [address] [place] [address], [address] [place] [address] [email or web address] Insurance Assigned Provider 07/15/22 08/13/22 Corby Prado MD [address] [place] [address], [address] [place] [address] [email or web address] Insurance Assigned Provider 08/13/22 09/16/22 Neisha Pinto RN [address] [place] [address], [address] [place] [address] [email or web address] PHCM President Educational Institution 02/26/23 06/10/25 Shreyas Wilson MD [address] [place] [address] [email or web address] Gastroenterology 06/17/24 Doretha Glynn MD [address] [place] [address] 3rd [place] [address] [email or web address] Endocrinology 06/17/24 Izzy Hackett [address] [place] [address] [email or web address] PHCM Community Cost Accounting Analyst 09/11/24 09/11/24 Radha Pereira, RN [address] [place] [address] [email or web address] PHCM President Educational InstitutionFood Service Manager 06/11/25 documented as of this encounter Additional Source Comments The information contained in this document represents components of the legal health record. It is not the complete legal health record.[facility]
--- OUTSIDE RECORDS SUMMARY | 2025-08-05 19:47 | XMS_ITS | Encounter Summary ---
Author Organization [facility] Address [address] [place] [address] [place] [address] Phone Care Team Providers Care Multimedia Producer Name Role Phone Lester Hicks MD Unavailable [phone] Margaux Montanez MD Unavailable Johann Hanson CNP Primary Care Provider [phone] Khang Kilgore MD Unavailable Luis Ignacio DO Unavailable Flo Esteban MD Unavailable [phone] Dilan Rowland MD Unavailable [phone] Corby Prado MD Unavailable [phone] Neisha Pinto RN Unavailable [email or web address] Shreyas Wilson MD Unavailable [phone] Doretha Glynn MD Unavailable [phone] Izzy Hackett Unavailable [email or web address] Radha Pereira RN Unavailable [phone] Encounter Details Date Type Department Care Team (Late st Contact Info) Description 02/10/2022 Procedure Pass Echo [facility] [address] [place] [address] Social History Tobacco Use Types Packs/Day [...] high school, GED, job training, learning the Paraguayan language, technical skills, or developing parenting skills)? [...] EST Office Visit [facility] [place] [facility] [address] [place] [address] [place] [address] Johann Hanson, TIFFANIE 22 [facility], [address] [place] [address] [email or web address] 09/10/2025 9:00 AM EST Office Visit [facility] 10 [place] [address] Unknown, Unknown, Shreyas Limon MD 10 [facility] 2 [place] [address] 09/21/2025 2:30 PM EST Office Visit [facility] 10 [facility] [place] [address] Lester [place] MD 10 [facility] 2nd [place] [address] 10/13/2025 9:20 AM EST Office Visit [facility] [address] [place] [address] [place] [address] Doretha Glynn MD [address] [place] [address] [email or web address] 12/22/2025 8:30 AM EDT Office Visit [address] [place] [address] Johann Hanson, BREAKER LAYER [address] [place] [address], [address] [place] [address] [email or web address] 06/30/2026 8:00 AM EDT Office Visit [address] [place] [address] Johann Hanson, BREAKER LAYER [address] [place] [address], [address] [place] [address] [email or web address] documented as of this encounter [...] documented as of this encounter Care Teams Multimedia Producer Relationship Specialty Start Date End Date Johann Hanson CNP [address] [place] [address], [address] [place] [address] PCP - General Family Medicine 02/11/21 Lester Hicks MD [address] [place] [address] Historical LMR Provider 07/28/17 Margaux Montanez MD [address] [place] [address], [address] [place] [address] [email or web address] Historical LMR Provider 07/28/17 Khang Kilgore MD [address] [place] [address], [address] [place] [address] Insurance Assigned Provider 01/12/24 Luis Ignacio DO [address] [place] [address], [address] [place] [address] Cardiology 06/28/22 06/16/24 Flo Esteban MD [address] [place] [address] [place] [address] [email or web address] Cardiothoracic Surgery 06/28/22 06/16/24 Dilan Rowland MD [address] [place] [address], [address] [place] [address] Insurance Assigned Provider 07/15/22 08/13/22 Corby Prado MD [address] [place] [address], [address] [place] [address] Insurance Assigned Provider 08/13/22 09/16/22 Neisha Pinto RN [address] [place] [address], [address] [place] [address] [email or web address] PHCM Guest Service Supervisor 02/26/23 06/10/25 Shreyas Wilson MD [address] [place] [address] Gastroenterology 06/17/24 Doretha Glynn MD [address] [place] [address] 3rd [place] [address] Endocrinology 06/17/24 Izzy Hackett [address] [place] [address] [email or web address] PHCM Community Service Restorer Emergency 09/11/24 09/11/24 Radha Pereira, RANDI [address] [place] [address] PHCM Guest Service SupervisorLegal Clerk 06/11/25 documented as of this encounter Additional Source Comments The information contained in this document represents components of the legal health record. It is not the complete legal health record.[facility]
--- OUTSIDE RECORDS SUMMARY | 2025-08-05 19:47 | XMS_ITS | Encounter Summary ---
Author Organization [facility] Address [address] [place] [address] [place] [address] Phone Care Team Providers Care Stock Control Clerk Name Role Phone Tricia Balderas DO Unavailable Lester Hicks MD Unavailable [phone] Margaux Montanez MD Unavailable Demario Floyd MD Unavailable Pam Benson MD Unavailable [phone] Adithya Campos TRAVELING PASSENGER AGENT Unavailable Beatriz Donaldson VENEER PULLER Unavailable Beatriz Donaldson VENEER PULLER Primary Care Provider Mamta Whitney DO Primary Care Provider [phone] Mamta Whitney DO Primary Care Provider [phone] Johann Hanson TRAVELING PASSENGER AGENT Primary Care Provider [phone] Khang Kilgore MD Unavailable Luis Ignacio DO Unavailable Flo Esteban MD Unavailable [phone] Dilan Rowland MD Unavailable [phone] Corby Prado MD Unavailable [phone] Neisha Pinto RN Unavailable [email or web address] Shreyas Wilson MD Unavailable Doretha Glynn MD Unavailable [phone] Izzy Hackett Unavailable sami Radha Pereira RN Unavailable Encounter Details Date Type Department Care Team (Late st Contact Info) Description 11/12/2019 Ancillary Orders Virtual Department 30 [place] [address] Beatriz Donaldson, VENEER PULLER 238 [place] [address] Breast screening Social History Tobacco Use Types [...] 08/24/2025 1:30 PM EST Office Visit [address] [address] Johann Hanson CNP 22 [facility], [address] [place] [address] [email or web address] 09/10/2025 9:00 AM EST Office Visit [facility] [address] [place] [address] Unknown, Unknown, Shreyas Limon MD [address] [place] [address] 09/21/2025 2:30 PM EST Office Visit [facility] [address] [place] [address] Lesetr Hicks MD [address] [place] [address] 10/13/2025 9:20 AM EST Office Visit [facility] [address] [place] [address] [place] [address] Doretha Glynn MD [address] [place] [address] [email or web address] 12/22/2025 8:30 AM EDT Office Visit [address] [place] [address] Johann Hanson, TRAVELING PASSENGER AGENT [address] [place] [address], [address] [place] [address] [email or web address] 06/30/2026 8:00 AM EDT Office Visit [address] [place] [address] Johann Hanson, TRAVELING PASSENGER AGENT [address] [place] [address], [address] [address] [email or web address] documented as of this encounter Visit Diagnoses Diagnosis Breast screening Breast screening, unspecified documented in this encounter Additional Health Concerns Infection Onset Date Last Indicated Resolved Time CoV-Presumed 05/27/2022 05/27/2022 06/17/2022 1:21 AM EDT CoV-Presumed Comment:COVID-19 Added 10/12/2022 10/12/2022 10/13/2022 6:26 P M EST COVID-19 10/13/2022 10/13/2022 11/03/2022 1:21 AM EST COVID10/07/2023 10/07/2023 10/28/2023 1:21 AM EST documented as of this encounter Care Teams Stock Control Clerk Relationship Specialty Start Date End Date Beatriz Donaldson VENEER PULLER [address] [place] [address] PCP - General Family Medicine 10/04/17 04/11/20 Mamta Whitney DO [address] [place] [address] [email or web address] PCP - General Family Medicine 04/12/20 02/08/21 Mamta Whitney DO [address] [place] [address] [email or web address] PCP - General Family Medicine 02/10/21 02/10/21 Johann Hanson CNP [address] [place] [address], [address] [place] [address] [email or web address] PCP - General Family Medicine 02/11/21 Tricia Balderas DO [address] [place] [address] [email or web address] Historical LMR Provider 07/28/17 10/15/21 Lester Hicks MD [address] [place] [address] [email or web address] Historical LMR Provider 07/28/17 Margaux Montanez MD 22 [facility], [address] [place] [address] [email or web address] Historical LMR Provider 07/28/17 Demario Floyd MD [address] [place] [address] [email or web address] Historical LMR Provider 07/28/17 10/15/21 Pam Benson MD [address] [place] [address] [email or web address] Historical LMR Provider 07/28/17 10/15/21 Adithya Campos TRAVELING PASSENGER AGENT [address] [place] [address] [email or web address] Historical LMR Provider 07/28/17 12/25/21 Beatriz Donaldson NP [address] [place] [address] Historical LMR Provider 07/28/17 04/11/20 Khang Kilgore MD [address] [place] [address], [address] [place] [address] [email or web address] Insurance Assigned Provider 01/12/24 Luis Ignacio DO [address] [place] [address], [address] [place] [address] [email or web address] Cardiology 06/28/22 06/16/24 Flo Esteban MD [address] [place] [address] [email or web address] Cardiothoracic Surgery 06/28/22 06/16/24 Dilan Rowland MD [address] [place] [address], [address] [place] [address] [email or web address] Insurance Assigned Provider 07/15/22 08/13/22 Corby Prado MD [address] [place] [address], [address] [place] [address] [email or web address] Insurance Assigned Provider 08/13/22 09/16/22 Neisha Pinto RN [address] [place] [address], [address] [place] [address] [email or web address] PHCM Grinding Room Inspector 02/26/23 06/10/25 Shreyas Wilson MD [address] [place] [address] [email or web address] Gastroenterology 06/17/24 Doretha Glynn MD [address] [place] [address] [address] [place] [address] [email or web address] Endocrinology 06/17/24 Izzy Hackett [address] [place] [address] [email or web address] PHCM Community Claim Technician 09/11/24 09/11/24 Radha Pereira, RN [address] [place] [address] [email or web address] PHCM Grinding Room InspectorTemporary Receptionist 06/11/25 documented as of this encounter Additional Source Comments The information contained in this document represents components of the legal health record. It is not the complete legal health record.[facility]
--- OUTSIDE RECORDS SUMMARY | 2025-08-05 19:47 | XMS_ITS | Encounter Summary ---
Author Organization [facility] Address [address] [facility] [address] [place] [address] Phone Care Team Providers Care Regional Transfer Liaison Name Role Phone Lester Hicks MD Unavailable [phone] Margaux Montanez MD Unavailable Johann Hanson LABORER PULLET FARM Primary Care Provider [phone] Khang Kilgore MD Unavailable [phone] Shreyas Wilson MD Unavailable [phone] Doretha Glynn MD Unavailable [phone] Radha Pereira RN Unavailable Encounter Details Date Type Department Care Team (Late st Contact Info) Description 07/23/2025 Orders Only [facility] [place] [facility] [address] [place] [address] Johann Hanson, LABORER PULLET FARM 22 [facility], [address] [place], [place] [phone] [email or web address] Essential hypertension; Encounter for medication monitoring Social History Tobacco Use Types Packs/Day Years [...] high school, GED, job training, learning the Monegasque language, technical skills, or developing parenting skills)? [...] Description 08/24/2025 1:30 PM EST Office Visit [address] [place] [address] Johann Hanson, LABORER PULLET FARM 22 [facility], [address] [place] [address] [email or web address] 09/10/2025 9:00 AM EST Office Visit [facility] 10 [place] [address] Unknown, [place], Shreyas Limon MD [address] [place] [address] 09/21/2025 2:30 PM EST Office Visit [facility] 10 [facility] [place] [address] Lester [place] MD [address] [place] [address] 10/13/2025 9:20 AM EST Office Visit [facility] [address] [place] [address] Doretha Glynn MD [address] [place] [address] [email or web address] 12/22/2025 8:30 AM EDT Office Visit [address] [place] [address] Johann Hanson CNP 22 [facility], [address] [place] [address] [email or web address] 06/30/2026 8:00 AM EDT Office Visit [facility] [address] [place] [address] Johann Hanson CNP 22 [facility], [address] [place] [address] [email or web address] documented as of this encounter Visit Diagnoses Diagnosis Essential hypertension Unspecified essential hypertension Encounter for medication monitoring Encounter for therapeutic drug monitoring documented in this encounter Additional Health Concerns Assessment Noted Time PHQ-9 Depression Total Score: 4 10/29/19 24 1:54 PM EST PHQ-2 Depression Total Score: 0 06/23/20 25 12:32 PM EDT documented as of this encounter Care Teams Regional Transfer Liaison Relationship Specialty Start Date End Date Johann Hanson CNP 22 [facility], [address] [place] [address] PCP - General Family Medicine 02/11/21 Lester [place] MD [address] [place] [address] Historical LMR Provider 07/28/17 Margaux Montanez MD [address] [place] [address], [address] [place] [address] Historical LMR Provider 07/28/17 Khang Kilgore MD [address] [place] [address], [address] [place] [address] [email or web address] Insurance Assigned Provider 01/12/24 Shreyas Wilson MD [address] [place] [address] Gastroenterology 06/17/24 Doretha Glynn MD [address] [place] [address] Endocrinology 06/17/24 Radha Pereira RN [address] [place] [address] [email or web address] PHCM Instructional Materials DirectorOverlay Operator 06/11/25 documented as of this encounter Additional Source Comments The information contained in this document represents components of the legal health record. It is not the complete legal health record.[facility]
--- OUTSIDE RECORDS SUMMARY | 2025-08-05 19:47 | XMS_ITS | Encounter Summary ---
Author Organization [facility] Address [address] [place] [address] Phone Care Team Providers Care Psych Tech Name Role Phone Lester Hicks MD Unavailable [phone] Margaux Montanez MD Unavailable Johann Hanson CNP Primary Care Provider [phone] Khang Kilgore MD Unavailable Luis Ignacio DO Unavailable Flo Esteban MD Unavailable [phone] Neisha Pinto RN Unavailable [email or web address] Shreyas Wilson MD Unavailable Doretha Glynn MD Unavailable [phone] Izzy Hackett Unavailable [email or web address] Radha Pereira RN Unavailable Encounter Details Date Type Department Care Team (Late st Contact Info) Description 12/07/2022 Procedure Pass [facility], Ct Scan - [address] [phone] Social History Tobacco Use Types Packs/Day Years [...] high school, GED, job training, learning the Gambian language, technical skills, or developing parenting skills)? [...] 12/07/2022 9:18 AM Alise Hamilton, RN * Kay Suicide Severity Rating Scale (Screener/Recent Self-Report) Question [...] Description 08/24/2025 1:30 PM EST Office Visit [facility] [address] [place] [address] Johann Hanson, TIFFANIE 22 [facility], [address] [place] [address] [email or web address] 09/10/2025 9:00 AM EST Office Visit [facility] Gastroenterology Clinic 10 [place] [address] Unknown, [place], Shreyas Limon MD [address] [address] 09/21/2025 2:30 PM EST Office Visit [facility] 10 [facility] [place] [address] Lester [place] MD [address] [place] [address] 10/13/2025 9:20 AM EST Office Visit [facility] [address] [place] [address] Doretha Glynn MD [address] [place] [address] 3rd [place] [address] [email or web address] 12/22/2025 8:30 AM EDT Office Visit [address] [place] [address] Johann Hanson, TIFFANIE [address] [place] [address], [address] [place] [address] [email or web address] 06/30/2026 8:00 AM EDT Office Visit [facility] 22 [place] [address] Johann Hanson CNP 22 [facility], [address] [place] [address] [email or web address] documented as of this encounter Visit Diagnoses Not on filedocumented in this encounter Additional Health Concerns Infection Onset Date Last Indicated Resolved Time COVID-19 10/07/2023 10/07/2023 10/28/2023 1:21 AM EST Assessment Noted Time PHQ-2 Depression Total Score: 0 05/15/20 1:45 PM EDT documented as of this encounter Care Teams Psych Tech Relationship Specialty Start Date End Date Johann Hanson CNP [address] [place] [address], [address] [place] [address] PCP - General Family Medicine 02/11/21 Lester [place] MD [address] [place] [address] Historical LMR Provider 07/28/17 Margaux Montanez MD [address] [place] [address], [address] [place] [address] [email or web address] Historical LMR Provider 07/28/17 Khang Kilgore MD [address] [place] [address], [address] [place] [address] Insurance Assigned Provider 01/12/24 Luis Ignacio DO [address] [place] [address], [address] [place] [address] Cardiology 06/28/22 06/16/24 Flo Esteban MD [address] [place] [address] [email or web address] Cardiothoracic Surgery 06/28/22 06/16/24 Neisha Pinto RN [address] [place] [address] [email or web address] Maintenance Mechanic Technician 02/26/23 06/10/25 Shreyas Wilson MD [address] [place] [address] Gastroenterology 06/17/24 Doretha Glynn MD [address] [place] [address] Endocrinology 06/17/24 Izzy Hackett [address] [place] [address] [email or web address] PHCM Community Training Director 09/11/24 09/11/24 Radha Pereira RN [address] [place] [address] [email or web address] PHCM Maintenance Mechanic TechnicianLead Java Software Engineer 06/11/25 documented as of this encounter Additional Source Comments The information contained in this document represents components of the legal health record. It is not the complete legal health record.[facility]
--- OUTSIDE RECORDS SUMMARY | 2025-08-05 19:47 | XMS_ITS | Encounter Summary ---
Author Organization [facility] Address [address] [facility] [address] [place] [address] Phone Care Team Providers Care Special Education Resource Room Teacher Name Role Phone Lester [place] MD Unavailable [phone] Margaux Montanez MD Unavailable Johann Hanson PLASTIC SURGEON Primary Care Provider [phone] Khang Kilgore MD Unavailable [phone] Shreyas Wilson MD Unavailable Doretha Glynn MD Unavailable [phone] Radha Pereira RN Unavailable Reason for Visit * Reason Onset Date Comments Lab sample 07/03/2025 Encounter Details Date Type Department Care Team (Late st Contact Info) Description 07/03/2025 Telephone [facility] [address] [place], [place] [address] Johann Hanson, PLASTIC SURGEON 22 [facility], [address] [place], [place] [address] [email or web address] Lab sample Social History Tobacco Use Types [...] high school, GED, job training, learning the [place] language, technical skills, or developing parenting [...] I put a note in for front tender not to charge a copay. * Dolores [...] when this should be done. Central Support Stock Supervisor (Please do not reply to this user; this inbox is not monitored.) Thank you. documented in this encounter Plan of Treatment Upcoming Encounters Date Type Department Care Team (Late st Contact Info) Description 08/24/2025 1:30 PM EST Office Visit [facility] [place] [address] [place] [address] Johann Hanson, PLASTIC SURGEON 22 [facility], [address] [place] [address] [email or web address] 09/10/2025 9:00 AM EST Office Visit [facility]enterology [facility] 10 [place] [address] Unknown, [place], Shreyas Limon MD [address] [address] 09/21/2025 2:30 PM EST Office Visit [facility] 10 [place] [address] Lester [place] MD [address] [place] [address] 10/13/2025 9:20 AM EST Office Visit [facility] [address] [place] [address] Doretha Glynn MD [address] [place] [address] [email or web address] 12/22/2025 8:30 AM EDT Office Visit [address] [place] [address] Johann Hanson, PLASTIC SURGEON [address] [place] [address], [address] [place] [address] [email or web address] 06/30/2026 8:00 AM EDT Office Visit [address] [place] [address] Johann Hanson, PLASTIC SURGEON [address] [place] [address], [address] [place] [address] [email or web address] documented as of this encounter Visit Diagnoses Not on filedocumented in this encounter Additional Health Concerns Assessment Noted Time PHQ-9 Depression Total Score: 4 10/29/19 24 1:54 PM EST PHQ-2 Depression Total Score: 0 06/23/20 25 12:32 PM EDT documented as of this encounter Care Teams Special Education Resource Room Teacher Relationship Specialty Start Date End Date Johann Hanson CNP [address] [place] [address], [address] [place] [address] PCP - General Family Medicine 02/11/21 Lester [place] MD [address] [place] [address] [email or web address] Historical LMR Provider 07/28/17 Margaux Montanez MD [address] [place] [address], [address] [place] [address] [email or web address] Historical LMR Provider 07/28/17 Khang Kilgore MD [address] [place] [address], [address] [place] [address] Insurance Assigned Provider 01/12/24 Shreyas Wilson MD [address] [place] [address] Gastroenterology 06/17/24 Doretha Glynn MD [address] [place] [address] Endocrinology 06/17/24 Rdaha Pereira, RN [address] [place] [address] [email or web address] PHCM Pile Driving TechnicianSupervisor Front 06/11/25 documented as of this encounter Additional Source Comments The information contained in this document represents components of the legal health record. It is not the complete legal health record.[facility]
--- OUTSIDE RECORDS SUMMARY | 2025-08-05 19:47 | XMS_ITS | Encounter Summary ---
Author Organization [facility] Address [address] [place] [address] Phone Care Team Providers Care Bone Density Technician Name Role Phone Lester Hicks MD Unavailable [phone] Margaux Montanez MD Unavailable Johann Hanson CNP Primary Care Provider [phone] Khang Kilgore MD Unavailable Luis Ignacio DO Unavailable Flo Esteban MD Unavailable [phone] Neisha Pinto RN Unavailable [email or web address] Shreyas Wilson MD Unavailable Doretha Glynn MD Unavailable [phone] Izzy Hackett Unavailable [email or web address] Radha Pereira RN Unavailable [phone] Encounter Details Date Type Department Care Team (Late st Contact Info) Description 10/12/2022 Procedure Pass [facility] PERIOPERATIVE DEPT [address] [place] [address] Social History Tobacco Use Types [...] high school, GED, job training, learning the Welsh language, technical skills, or developing parenting skills)? [...] Description 08/24/2025 1:30 PM EST Office Visit [facility] [address] [place] [address] Johann Hanson, TIFFANIE 22 [facility], [address] [place] [address] [email or web address] 09/10/2025 9:00 AM EST Office Visit [facility] Gastroenterology Clinic 10 [place] [address] Unknown, Unknown, Shreyas Limon MD 10 [facility] 2 [place] [address] 09/21/2025 2:30 PM EST Office Visit [facility], Allergy and Critical Care Medicine 10 [facility] [place] [address] Lester Hicks MD [address] [place] [address] 10/13/2025 9:20 AM EST Office Visit [facility] [address] [place] [address] [place] [address] Doretha Glynn MD [address] [place] [address] [email or web address] 12/22/2025 8:30 AM EDT Office Visit [address] [place] [address] Johann Hanson, FLAT BED KNITTER [address] [place] [address], [address] [place] [address] [email or web address] 06/30/2026 8:00 AM EDT Office Visit [address] [place] [address] Johann Hanson, FLAT BED KNITTER [address] [place] [address], [address] [place] [address] [email or web address] documented as of this encounter [...] documented as of this encounter Care Teams Bone Density Technician Relationship Specialty Start Date End Date Johann Hanson CNP [address] [place] [address], [address] [place] [address] PCP - General Family Medicine 02/11/21 Lester Hicks MD [address] [place] [address] 2[address] [place] [address] [email or web address] Historical LMR Provider 07/28/17 Margaux Montanez MD [address] [place] [address], [address] [place] [address] [email or web address] Historical LMR Provider 07/28/17 Khang Kilgore MD [address] [place] [address], [address] [place] [address] [email or web address] Insurance Assigned Provider 01/12/24 Luis Ignacio DO [address] [place] [address], [address] [place] [address] Cardiology 06/28/22 06/16/24 Flo Esteban MD [address] [place] [address] [place] [address] [email or web address] Cardiothoracic Surgery 06/28/22 06/16/24 Neisha Pinto RN [address] [place], [place] [address] [place] [address] [email or web address] PHCM Certified Addiction Counselor 02/26/23 06/10/25 Shreyas Wilson MD [address] [place] [address] Gastroenterology 06/17/24 Doretha Glynn MD [address] [place] [address] Endocrinology 06/17/24 Izzy Hackett [address] [place] [address] [email or web address] PHCM Community Tire Trimmer Hand 09/11/24 09/11/24 Radha Pereira RN [address] [place] [address] PHC Certified Addiction CounselorClass C Driver 06/11/25 documented as of this encounter Additional Source Comments The information contained in this document represents components of the legal health record. It is not the complete legal health record.[facility]
--- OUTSIDE RECORDS SUMMARY | 2025-08-05 19:47 | XMS_ITS | Encounter Summary ---
Author Organization [facility] Address [address] [place] [address] [place] [address] Phone Care Team Providers Care Right Of Way Buyer Name Role Phone Tricia Balderas DO Unavailable Lester Hicks MD Unavailable [phone] Margaux Montanez MD Unavailable Demario Floyd MD Unavailable Pam Benson MD Unavailable [phone] Adithya Campos PROJECT MANAGER Unavailable Beatriz Donaldson TRACK WALKER Unavailable Beatriz Donaldson TRACK WALKER Primary Care Provider Mamta Whitney DO Primary Care Provider [phone] Mamta Whitney DO Primary Care Provider [phone] Johann Hanson PROJECT MANAGER Primary Care Provider [phone] Khang Kilgore MD Unavailable Luis Ignacio DO Unavailable Flo Esteban MD Unavailable [phone] Dilan Rowland MD Unavailable [phone] Corby Prado MD Unavailable [phone] Neisha Pinto RN Unavailable [email or web address] Shreyas Wilson MD Unavailable Doretha Glynn MD Unavailable [phone] Izzy Hackett Unavailable [email or web address] Radha Pereira RN Unavailable Encounter Details Date Type Department Care Team (Late Contact Info) Description 05/29/2019 Telephone [facility] Pulmonary, Allergy and Critical Care Medicine [address] [place] [address] Aishwarya Vasquez MD [address] [place] [address] [phone] [email or web address] Social History Tobacco Use Types Packs/Day Years [...] Upcoming Encounters Date Type Department Care Team ([facility] Contact Info) Description 08/24/2025 1:30 PM EST Office Visit [address] [address] Johann Hanson, TIFFANIE 22 [facility], [address] [place] [address] [email or web address] 09/10/2025 9:00 AM EST Office Visit [facility] Gastroenterology Clinic [address] [place] [address] [phone] Unknown, Unknown, Shreyas Limon MD [address] [place] [address] [id number] 09/21/2025 2:30 PM EST Office Visit [facility] Pulmonary, Allergy and Critical Care Medicine [address] [place] [address] Lester Hicks MD [address] [place] [address] 10/13/2025 9:20 AM EST Office Visit [facility] [address] [place] [address] [place] [address] Doretha Glynn MD [address] [place] [address] [email or web address] 12/22/2025 8:30 AM EDT Office Visit [address] [place] [address] Johann Hanson, PROJECT MANAGER [address] [place] [address], [address] [place] [address] [email or web address] 06/30/2026 8:00 AM EDT Office Visit [address] [place] [address] Johann Hanson, PROJECT MANAGER [address] [place] [address], [address] [place] [address] [email or web address] documented as of this encounter Visit Diagnoses Not on filedocumented in this encounter Additional Health Concerns Infection Onset Date Last Indicated Resolved Time CoV-Presumed 05/27/2022 05/27/2022 06/17/2022 1:21 AM EDT CoV-Presumed Comment:COVID-19 Added 10/12/2022 10/12/2022 10/13/2022 6:26 P M EST COVID-19 10/13/2022 10/13/2022 11/03/2022 1:21 AM EST COVID-19 10/07/2023 10/07/2023 10/28/2023 1:21 AM EST documented as of this encounter Care Teams Right Of Way Buyer Relationship Specialty Start Date End Date Beatriz Donaldson, TRACK WALKER [address] [place] [address] PCP - General Family Medicine 10/04/17 04/11/20 Mamta Whitney DO [address] [place] [address] [email or web address] PCP - General Family Medicine 04/12/20 02/08/21 Mamta Whitney DO [address] [place] [address] [email or web address] PCP - General Family Medicine 02/10/21 02/10/21 Johann Hanson CNP [address] [place] [address], [address] [place] [address] [email or web address] PCP - General Family Medicine 02/11/21 Tricia Balderas DO [address] [place] [address] [email or web address] Historical LMR Provider 07/28/17 10/15/21 Lester Hicks MD [address] [place] [address] [email or web address] Historical LMR Provider 07/28/17 Margaux Montanez MD [address] [place] [address], [address] [place] [address] [email or web address] Historical LMR Provider 07/28/17 Demario Floyd MD [address] [place] [address] [email or web address] Historical LMR Provider 07/28/17 10/15/21 Pam Benson MD [address] [place] [address] [email or web address] Historical LMR Provider 07/28/17 10/15/21 Adithya Campos PROJECT MANAGER [address] [place] [address] [email or web address] Historical LMR Provider 07/28/17 12/25/21 Beatriz Donaldson NP [address] [place] [address] Historical LMR Provider 07/28/17 04/11/20 Khang Kilgore MD [address] [place] [address], [address] [place] [address] [email or web address] Insurance Assigned Provider 01/12/24 Luis Ignacio DO [address] [place] [address], [address] [place] [address] [email or web address] Cardiology 06/28/22 06/16/24 Flo Esteban MD [address] [place] [address] [email or web address] Cardiothoracic Surgery 06/28/22 06/16/24 Dilan Rowland MD [address] [place] [address], [address] [place] [address] [email or web address] Insurance Assigned Provider 07/15/22 08/13/22 Corby Prado MD [address] [place] [address], [address] [place] [address] [email or web address] Insurance Assigned Provider 08/13/22 09/16/22 Neisha Pinto RN [address] [place] [address], [address] [place] [address] [email or web address] Dye Reel Operator Helper 02/26/23 06/10/25 Shreyas Wilson MD [address] [place] [address] [email or web address] Gastroenterology 06/17/24 Doretha Glynn MD [address] [place] [address] Endocrinology 06/17/24 Izzy Hackett [address] [place] [address] [email or web address] PHCM Community Legal Paraprofessional 09/11/24 09/11/24 Radha Pereira, RN [address] [place] [address] [email or web address] PHC Dye Reel Operator HelperCommunity Services Officer 06/11/25 documented as of this encounter Additional Source Comments The information contained in this document represents components of the legal health record. It is not the complete legal health record.[facility]
--- OUTSIDE RECORDS SUMMARY | 2025-08-05 19:47 | XMS_ITS | Encounter Summary ---
Author Organization [facility] Address [address] [facility] [address] [place] [address] Phone Care Team Providers Care Cardiology Consultants Name Role Phone Lester Hicks MD Unavailable [phone] Margaux Montanez MD Unavailable [phone] Johann Hanson SECONDARY SPECIAL EDUCATION TEACHER Primary Care Provider [phone] Khang Kilgore MD Unavailable Shreyas Wilson MD Unavailable Doretha Glynn MD Unavailable [phone] Radha Pereira RN Unavailable [phone] Encounter Details Date Type Department Care Team (Late st Contact Info) Description 07/24/2025 Orders Only [facility] [address] [place] [address] [place] [address] Johann Hanson, SECONDARY SPECIAL EDUCATION TEACHER 22 [facility], [address] [place], [place] [phone] Social History Tobacco Use Types Packs/Day Years [...] Description 08/24/2025 1:30 PM EST Office Visit [address] [place] [address] Johann Hanson, SECONDARY SPECIAL EDUCATION TEACHER 22 [facility], [address] [place] [address] [email or web address] 09/10/2025 9:00 AM EST Office [facility] Gastroenterology Clinic 10 [place] [address] Unknown, Unknown, Shreyas Limon MD [address] [place] [address] 09/21/2025 2:30 PM EST Office Visit [facility] Pulmonary, Allergy and Critical Care Medicine 10 [facility] [place] [address] Lester Hicks MD [address] [place] [address] 10/13/2025 9:20 AM EST Office Visit [facility] [address] [place] [address] [place] [address] Doretha Glynn MD [address] [place] [address] [email or web address] 12/22/2025 8:30 AM EDT Office Visit [address] [place] [address] Johann Hanson CNP 22 [facility], [address] [place] [address] [email or web address] 06/30/2026 8:00 AM EDT Office Visit [facility] [address] [place] [address] Johann Hanson CNP 22 [facility], [address] [place] [address] [email or web address] documented as of this encounter Procedures Procedure Name Priority Date/Time Associated Diagnosis Comments OUTSIDE ECHO Routine 07/22/2025 8:44 AM EDT documented in this encounter Results * Outside Echo Report Only (07/22/2025 8:44 AM EDT) us Johann Hanson CNP CV ECHO ORDERABLES Final Result documented in this encounter Visit Diagnoses Not on filedocumented in this encounter Additional Health Concerns Assessment Noted Time PHQ-9 Depression Total Score: 4 10/29/19 24 1:54 PM EST PHQ-2 Depression Total Score: 0 06/23/20 25 12:32 PM EDT documented as of this encounter Care Teams Cardiology Consultants Relationship Specialty Start Date End Date Johann Hanson CNP 22 [facility], [address] [place] [address] PCP - General Family Medicine 02/11/21 Lester Hicks MD [address] [place] [address] Historical LMR Provider 07/28/17 Margaux Montanez MD [address] [place] [address], [address] [place] [address] [email or web address] Historical LMR Provider 07/28/17 Khang Kilgore MD [address] [place] [address], [address] [place] [address] [email or web address] Insurance Assigned Provider 01/12/24 Shreyas Wilson MD [address] [place] [address] [email or web address] Gastroenterology 06/17/24 Doretha Glynn MD [address] [place] [address] Endocrinology 06/17/24 Radha Pereira, RN [address] [place] [address] [email or web address] PHCM Executive Vice President Business DevelopmentHead Baggage Porter 06/11/25 documented as of this encounter Additional Source Comments The information contained in this document represents components of the legal health record. It is not the complete legal health record.[facility]
--- OUTSIDE RECORDS SUMMARY | 2025-08-05 19:47 | XMS_ITS | Encounter Summary ---
Author Organization [facility] Address [address] [facility] [address] [place] [address] Phone Care Team Providers Care Welding Robot Operator Name Role Phone Lester Hicks MD Unavailable [phone] Margaux Montanez MD Unavailable [phone] Johann Hanson CNP Primary Care Provider [phone] Khang Kilgore MD Unavailable [phone] Neisha Pinto RN Unavailable [email or web address] Shreyas Wilson MD Unavailable Doretha Glynn MD Unavailable [phone] Radha Pereira RN Unavailable Reason for Visit * Reason Comments Medication Refill Encounter Details Date Type Department Care Team (Late st Contact Info) Description 06/05/2025 Refill [facility] Rheumatology [address] [facility] [place], [place] [phone] Margaux Montanez MD 22 [facility], [address] [place] [address] [email or web address] Medication Refill Social History Tobacco Use Types [...] high school, GED, job training, learning the Maur[place] language, technical skills, or developing parenting skills)? [...] Description 08/24/2025 1:30 PM EST [facility] [address] [address] Johann Hanson, TIFFANIE 22 [facility], [address] [place] [address] [email or web address] 09/10/2025 9:00 AM EST Office Visit [facility] Gastroenterology Clinic 10 [place] [address] Unknown, Unknown, Shreyas Limon MD [address] [place] [address] 09/21/2025 2:30 PM EST Office Visit [facility] Pulmonary, Allergy and Critical Care Medicine 10 [facility] [place] [address] Lester Hicks MD [address] [place] [address] 10/13/2025 9:20 AM EST Office Visit [facility] [address] [place] [address] Doretha Glynn MD [address] [place] [address] [email or web address] 12/22/2025 8:30 AM EDT Office Visit [address] [place] [address] Johann Hanson CNP [address] [place] [address], [address] [place] [address] [email or web address] 06/30/2026 8:00 AM EDT Office Visit [address] [place] [address] Johann Hanson CNP [address] [place] [address], [address] [place] [address] [email or web address] documented as of this encounter Visit Diagnoses Diagnosis Inflammatory arthritis Unspecified inflammatory polyarthropathy documented in this encounter Additional Health Concerns Assessment Noted Time PHQ-9 Depression Total Score: 4 10/29/19 24 1:54 PM EST PHQ-2 Depression Total Score: 0 06/10/20 24 9:22 AM EDT documented as of this encounter Care Teams Welding Robot Operator Relationship Specialty Start Date End Date Johann Hanson CNP [address] [place] [address], [address] [place] [address] PCP - General Family Medicine 02/11/21 Lester Hicks MD [address] [place] [address] Historical LMR Provider 07/28/17 Margaux Montanez MD [address] [place] [address] [address] [place] [address] [email or web address] Historical LMR Provider 07/28/17 Khang Kilgore MD [address] [place] [address], [address] [place] [address] [email or web address] Insurance Assigned Provider 01/12/24 Neisha Pinto, RANDI [address] [facility], [address] [place] [address] [email or web address] PHCM Bottom Scrubber 02/26/23 06/10/25 Shreyas Wilson MD [address] [place] [address] [email or web address] Gastroenterology 06/17/24 Doretha Glynn MD [address] [place] [address] 3[address] [place] [address] [email or web address] Endocrinology 06/17/24 Radha Pereira, RN [address] [place] [address] [email or web address] PHCM Bottom ScrubberSeismograph Operator 06/11/25 documented as of this encounter Additional Source Comments The information contained in this document represents components of the legal health record. It is not the complete legal health record.[facility]
--- OUTSIDE RECORDS SUMMARY | 2025-08-05 19:47 | XMS_ITS | Encounter Summary ---
Author Organization [facility] Address [address] [place] [address] Phone Care Team Providers Care Fitness And Wellness Director Name Role Phone Lester Hicks MD Unavailable [phone] Margaux Montanez MD Unavailable [phone] Johann Hanson CNP Primary Care Provider [phone] Khang Kilgore MD Unavailable [phone] Luis Ignacio DO Unavailable [phone] Flo Esteban MD Unavailable [phone] Neisha Pinto RN Unavailable [email or web address] Shreyas Wilson MD Unavailable [phone] Doretha Glynn MD Unavailable [phone] Izzy Hackett Unavailable [email or web address] Radha Pereira RN Unavailable Encounter Details Date Type Department Care Team (Latest Contact Info) Description 09/07/2023 Transcribe Orders Virtual Department 30 [place] [address] Shreyas Wilson MD [address] [place] [address] [phone] [email or web address] Gastroesophageal reflux disease, unspecified whether [...] Description 08/24/2025 1:30 PM EST Office Visit [address] [place] [address] Johann Hanson, SHAPE CARVER [address] [place] [address], [address] [place] [address] [email or web address] 09/10/2025 9:00 AM EST Office Visit [facility] Gastroenterology Clinic 10 [place] [address] Unknown, Unknown, Shreyas Limon MD [address] [place] [address] 09/21/2025 2:30 PM EST Office Visit [facility] Pulmonary, Allergy and Critical Care Medicine 10 [place] [address] Lester Hicks MD [address] [place] [address] 10/13/2025 9:20 AM EST Office Visit [facility] [address] [place] [address] [place] [address] Doretha Glynn MD [address] [place] [address] [email or web address] 12/22/2025 8:30 AM EDT Office Visit [address] [place] [address] Johann Hanson, SHAPE CARVER [address] [place] [address], [address] [place] [address] [email or web address] 06/30/2026 8:00 AM EDT Office Visit [facility] [address] [place] [address] Johann Hanson CNP 22 [facility], [address] [place] [address] [email or web address] documented as of this encounter [...] documented as of this encounter Care Teams Fitness And Wellness Director Relationship Specialty Start Date End Date Johann Hanson CNP 22 [facility], [address] [place] [address] PCP - General Family Medicine 02/11/21 Lseter Hicks MD [address] [place] [address] Historical LMR Provider 07/28/17 Margaux Montanez MD [address] [facility], [address] [place] [address] [email or web address] Historical LMR Provider 07/28/17 Khang Kilgore MD [address] [place] [address], [address] [place] [address] Insurance Assigned Provider 01/12/24 Luis Ignacio DO [address] [place] [address], [address] [place] [address] Cardiology 06/28/22 06/16/24 Flo Esteban MD [address] [place] [address] [email or web address] Cardiothoracic Surgery 06/28/22 06/16/24 Neisha Pinto RN [address] [place] [address] [email or web address] PHCM Registered Nurse Float Pool 02/26/23 06/10/25 Shreyas Wilson MD [address] [place] [address] Gastroenterology 06/17/24 Doretha Glynn MD [address] [place] [address] [address] [place] [address] Endocrinology 06/17/24 Izzy Hackett [address] [place] [address] [email or web address] PHCM Community Classification Officer 09/11/24 09/11/24 Radha Pereira RN [address] [place] [address] PHCM Registered Nurse Float PoolTechnical Professional 06/11/25 documented as of this encounter Additional Source Comments The information contained in this document represents components of the legal health record. It is not the complete legal health record.[facility]
--- OUTSIDE RECORDS SUMMARY | 2025-08-05 19:47 | XMS_ITS | Encounter Summary ---
Author Organization [facility] Address [address] [place] [address] [place] [address] Phone Care Team Providers Care Senior Fire Protection Engineer Name Role Phone Tricia Balderas DO Unavailable Lester Hicks MD Unavailable [phone] Margaux Montanez MD Unavailable Demario Floyd MD Unavailable Pam Benson MD Unavailable [phone] Adithya Campos CUSTODY ASSISTANT Unavailable Beatriz Donaldson CORONER TRANSPORT TECHNICIAN Unavailable Beatriz Donaldson CORONER TRANSPORT TECHNICIAN Primary Care Provider Mamta Whitney DO Primary Care Provider [phone] Mamta Whitney DO Primary Care Provider [phone] Johann Hanson CUSTODY ASSISTANT Primary Care Provider [phone] Khang Kilgore MD Unavailable Luis Ignacio DO Unavailable Flo Esteban MD Unavailable [phone] Dilan Rowland MD Unavailable [phone] Corby Prado MD Unavailable [phone] Neisha Pinto RN Unavailable [email or web address] Shreyas Wilson MD Unavailable Doretha Glynn MD Unavailable [phone] Izzy Hackett Unavailable sami Radha Pereira RN Unavailable Encounter Details Date Type Department Care Team (Late st Contact Info) Description 01/10/2019 Procedure Pass [facility] 30 [place] [address] Social History Tobacco Use Types Packs/Day Years [...] Description 08/24/2025 1:30 PM EST Office Visit [address] [address] Johann Hanson, CUSTODY ASSISTANT 22 [facility], [address] [place] [address] [email or web address] 09/10/2025 9:00 AM EST Office Visit [facility] 10 [place] [address] Unknown, Unknown, Shreyas Limon MD [address] [id number] 09/21/2025 2:30 PM EST Office Visit [facility] Pulmonary, Allergy and Critical Care Medicine 10 [facility] [place] [address] Lester Hicks MD [address] [place] [address] 10/13/2025 9:20 AM EST Office Visit [facility] [address] [place] [address] [place] [address] Doretha Glynn MD [address] [place] [address] [email or web address] 12/22/2025 8:30 AM EDT Office Visit [address] [place] [address] Johann Hanson, CUSTODY ASSISTANT [address] [place] [address], [address] [place] [address] [email or web address] 06/30/2026 8:00 AM EDT Office Visit [address] [place] [address] Johann Hanson, CUSTODY ASSISTANT [address] [place] [address], [address] [place] [address] [email or web address] documented as of this encounter Visit Diagnoses Not on filedocumented in this encounter Additional Health Concerns Infection Onset Date Last Indicated Resolved Time CoV-Presumed 05/27/2022 05/27/2022 06/17/2022 1:21 AM EDT CoV-Presumed Comment:COVID-19 Added 10/12/2022 10/12/2022 10/13/2022 6:26 P M EST COVID-19 10/13/2022 10/13/2022 11/03/2022 1:21 AM EST COVID-19 10/07/2023 10/07/2023 10/28/2023 1:21 AM EST documented as of this encounter Care Teams Senior Fire Protection Engineer Relationship Specialty Start Date End Date Beatriz Donaldson, CORONER TRANSPORT TECHNICIAN [address] [place] [address] PCP - General Family Medicine 10/04/17 04/11/20 Mamta Whitney DO [address] [place] [address] [email or web address] PCP - General Family Medicine 04/12/20 02/08/21 Mamta Whitney DO [address] [place] [address] [email or web address] PCP - General Family Medicine 02/10/21 02/10/21 Johann Hanson CNP [address] [place] [address], [address] [place] [address] [email or web address] PCP - General Family Medicine 02/11/21 Tricia Balderas DO [address] [place] [address] [email or web address] Historical LMR Provider 07/28/17 10/15/21 Lester Hicks MD [address] [place] [address] [email or web address] Historical LMR Provider 07/28/17 Margaux Montanez MD [address] [place] [address], [address] [place] [address] [email or web address] Historical LMR Provider 07/28/17 Demario Floyd MD [address] [place] [address] [email or web address] Historical LMR Provider 07/28/17 10/15/21 Pam Benson MD [address] [place] [address] [email or web address] Historical LMR Provider 07/28/17 10/15/21 Adithya Campos, CUSTODY ASSISTANT [address] [place] [address] [email or web address] Historical LMR Provider 07/28/17 12/25/21 Beatriz Donaldson NP [address] [place] [address] Historical LMR Provider 07/28/17 04/11/20 Khang Kilgore MD [address] [place] [address], [address] [place] [address] [email or web address] Insurance Assigned Provider 01/12/24 Luis Ignacio DO [address] [place] [address], [address] [place] [address] [email or web address] Cardiology 06/28/22 06/16/24 Flo Esteban MD [address] [place] [address] [email or web address] Cardiothoracic Surgery 06/28/22 06/16/24 Dilan Rowland MD [address] [place] [address], [address] [place] [address] [email or web address] Insurance Assigned Provider 07/15/22 08/13/22 Corby Prado MD [address] [place] [address], [address] [place] [address] [email or web address] Insurance Assigned Provider 08/13/22 09/16/22 Neisha Pinto RN [address] [place] [address], [address] [place] [address] [email or web address] PHCM Neurophysiological Technician 02/26/23 06/10/25 Shreyas Wilson MD [address] [place] [address] [email or web address] Gastroenterology 06/17/24 Doretha Glynn MD [address] [place] [address] [email or web address] Endocrinology 06/17/24 Izzy Hackett [address] [place] [address] [email or web address] PHCM Community Kiln Tester 09/11/24 09/11/24 Radha Pereira, RANDI [address] [place] [address] [email or web address] PHCM Neurophysiological TechnicianCollaborating Supervising Physician 06/11/25 documented as of this encounter Additional Source Comments The information contained in this document represents components of the legal health record. It is not the complete legal health record.[facility]
--- OUTSIDE RECORDS SUMMARY | 2025-08-05 19:47 | XMS_ITS | Encounter Summary ---
Author Organization [facility] Address [address] [place] [address] Phone Care Team Providers Care Community Outreach Worker Name Role Phone Tricia Balderas DO Unavailable Lester Hicks MD Unavailable [phone] Margaux Montanez MD Unavailable Demario Floyd MD Unavailable Pam Benson MD Unavailable Adihtya Campos SOLID WASTE COLLECTION WORKER Unavailable Johann Hanson SOLID WASTE COLLECTION WORKER Primary Care Provider [phone] Khang Kilgore MD Unavailable Luis Ignacio DO Unavailable Flo Esteban MD Unavailable [phone] Dilan Rowland MD Unavailable [phone] Corby Prado MD Unavailable [phone] Neisha Pinto RN Unavailable [email or web address] Shreyas Wilson MD Unavailable Doretha Glynn MD Unavailable [phone] Izzy Hackett Unavailable sami RandallRadha RANDI Unavailable Encounter Details Date Type Department Care Team (Late Contact Info) Description 02/22/2021 Procedure Pass [facility], [facility] [address] [place] [address] Social History Tobacco Use Types Packs/Day Years [...] high school, GED, job training, learning the [place]ar[place] language, technical skills, or developing parenting skills)? [...] Upcoming Encounters Date Type Department Care Team ([facility] Contact Info) Description 08/24/2025 1:30 PM EST Office Visit [place] [address] [place] [address] Johann Hanson CNP [address] [place] [address], [address] [place] [address] [email or web address] 09/10/2025 9:00 AM EST Office Visit [facility] 10 [place] [address] Unknown, [place], Shreyas Limon MD [address] [address] 09/21/2025 2:30 PM EST Office Visit [facility] Pulmonary, Allergy and Critical Care Medicine 10 [facility] [place] [address] Lester Hicks MD [address] [place] [address] 2[address] [place] [address] 10/13/2025 9:20 AM EST Office Visit [facility] [address] [place] [address] [place] [address] Doretha Glynn MD [address] [place] [address] 3[address] [place] [address] [email or web address] 12/22/2025 8:30 AM EDT Office Visit [address] [place] [address] Johann Hanson CNP [address] [place] [address], [address] [place] [address] [email or web address] 06/30/2026 8:00 AM EDT Office Visit [address] [place] [address] Johann Hanson, SOLID WASTE COLLECTION WORKER [address] [place] [address], [address] [place] [address] [email or web address] documented as of this encounter [...] documented as of this encounter Care Teams Community Outreach Worker Relationship Specialty Start Date End Date Johann Hanson CNP [address] [place] [address], [address] [place] [address] [email or web address] PCP - General Family Medicine 02/11/21 Tricia Balderas DO [address] [place] [address] [email or web address] Historical LMR Provider 07/28/17 10/15/21 Lester Hicks MD [address] [place] [address] [email or web address] Historical LMR Provider 07/28/17 Margaux Montanez MD [address] [place] [address], [address] [place] [address] [email or web address] Historical LMR Provider 07/28/17 Demario Floyd MD [address] [place] [address] [email or web address] Historical LMR Provider 07/28/17 2 Pam Benson MD [address] [place] [address], [address] [place] [address] Historical LMR Provider 07/28/17 Adithya Campos, SOLID WASTE COLLECTION WORKER [address] [address] Historical LMR Provider 07/28/17 12/25/21 Khang Kilgore MD [address] [place] [address], [address] [place] [address] Insurance Assigned Provider 01/12/24 Luis Ignacio DO [address] [place] [address], [address] [place] [address] Cardiology 06/28/22 06/16/24 Flo Esteban MD [address] [place] [address] [email or web address] Cardiothoracic Surgery 06/28/22 06/16/24 Dilan Rowland MD [address] [place] [address], [address] [place] [address] Insurance Assigned Provider 07/15/22 08/13/22 Corby Prado MD [address] [place] [address], [address] [place] [address] Insurance Assigned Provider 08/13/22 09/16/22 Neisha Pinto RN [address] [place] [address], [address] [place] [address] [email or web address] PHCM Women'S Studies Lecturer 02/26/23 06/10/25 Shreyas Wilson MD [address] [place] [address] Gastroenterology 06/17/24 Doretha Glynn MD [address] [place] [address] 3[address] [place] [address] Endocrinology 06/17/24 Izzy Hackett [address] [place] [address] [email or web address] PHCM Community Geopolitics Teacher 09/11/24 09/11/24 Radha Pereira, RANDI [address] [place] [address] PHCM Women'S Studies LecturerDelivery Supervisor 06/11/25 documented as of this encounter Additional Source Comments The information contained in this document represents components of the legal health record. It is not the complete legal health record.[facility]
--- OUTSIDE RECORDS SUMMARY | 2025-08-05 19:47 | XMS_ITS | Encounter Summary ---
Author Organization [facility] Address [address] [place] [address] Phone Care Team Providers Care Social Welfare Research Worker Name Role Phone Lester Hicks MD Unavailable [phone] Margaux Montanez MD Unavailable [phone] Johann Hanson CNP Primary Care Provider [phone] Khang Kilgore MD Unavailable Neisha Pinto RN Unavailable [email or web address] Shreyas Wilson MD Unavailable [phone] Doretha Glynn MD Unavailable [phone] Izzy Hackett Unavailable [email or web address] Radha Pereira RN Unavailable Encounter Details Date Type Department Care Team (Late st Contact Info) Description 06/17/2024 Procedure Pass [address] [address] Social History Tobacco Use Types Packs/Day Years [...] Description 08/24/2025 1:30 PM EST Office Visit [address] [place] [address] Johann Hanson, MEDICAL DATA ANALYST 22 [facility], [address] [place] [address] [email or web address] 09/10/2025 9:00 AM EST Office [facility] Gastroenterology Clinic 10 [place] [address] Unknown, Unknown, Shreyas Limon MD [address] [place] [address] 09/21/2025 2:30 PM EST Office Visit [facility] Pulmonary, Allergy and Critical Care Medicine 10 [place] [address] Lester Hicks MD [address] [place] [address] 10/13/2025 9:20 AM EST Office Visit [facility] [address] [place] [address] Doretha Glynn MD [address] [place] [address] [email or web address] 12/22/2025 8:30 AM EDT Office Visit [address] [place] [address] Johann Hanson CNP 22 [facility], [address] [place] [address] [email or web address] 06/30/2026 8:00 AM EDT Office Visit [facility] 22 [place] [address] Johann Hanson CNP 22 [facility], [address] [place] [address] [email or web address] documented as of this encounter Visit Diagnoses Not on filedocumented in this encounter Additional Health Concerns Assessment Noted Time PHQ-9 Depression Total Score: 4 10/29/19 24 1:54 PM EST PHQ-2 Depression Total Score: 0 06/23/20 25 12:32 PM EDT documented as of this encounter Care Teams Social Welfare Research Worker Relationship Specialty Start Date End Date Johann Hanson CNP [address] [place] [address], [address] [place] [address] PCP - General Family Medicine 02/11/21 Lester Hicks MD [address] [place] [address] Historical LMR Provider 07/28/17 Margaux Montanez MD [address] [place] [address], [address] [place] [address] Historical LMR Provider 07/28/17 Khang Kilgore MD [address] [place] [address], [address] [place] [address] Insurance Assigned Provider 01/12/24 Neisha Pinto, RANDI [facility], [address] [place] [address] [email or web address] PHCM Offset Press Operator 02/26/23 06/10/25 Shreyas Wilson MD [address] [place] [address] Gastroenterology 06/17/24 Doretha Glynn MD [address] [place] [address] 3[address] [place] [address] Endocrinology 06/17/24 Izzy Hackett [address] [place] [address] [email or web address] PHCM Community Drying Unit Felting Machine Operator 09/11/24 09/11/24 Radha Pereira RN [address] [place] [address] PHCM Offset Press OperatorChild And Family Services Specialist 06/11/25 documented as of this encounter Additional Source Comments The information contained in this document represents components of the legal health record. It is not the complete legal health record.[facility]
--- OUTSIDE RECORDS SUMMARY | 2025-08-05 19:47 | XMS_ITS | Encounter Summary ---
Author Organization [facility] Address [address] [place] [address] [place] [address] Phone Care Team Providers Care Calibration Checker Name Role Phone Lester Hicks MD Unavailable [phone] Margaux Montanez MD Unavailable [phone] Johann Hanson CNP Primary Care Provider [phone] Khang Kilgore MD Unavailable [phone] Luis Ignacio DO Unavailable [phone] Flo Esteban MD Unavailable [phone] Corby Prado MD Unavailable [phone] Neisha Pinto RN Unavailable [email or web address] Shreyas Wilson MD Unavailable Doretha Glynn MD Unavailable [phone] Izzy Hackett Unavailable [email or web address] Radha Pereira RN Unavailable Encounter Details Date Type Department Care Team (Late st Contact Info) Description 08/15/2022 Procedure Pass [facility], Ct Scan - [address] [id number] Social History Tobacco Use Types Packs/Day Years [...] high school, GED, job training, learning the Danish language, technical skills, or developing parenting skills)? [...] 08/24/2025 1:30 PM EST Office Visit [facility] [place] [address] [place] [address] Johann Hanson, TIFFANIE 22 [facility], [address] [place] [address] [email or web address] 09/10/2025 9:00 AM EST Office Visit [facility] 10 [place] [address] Unknown, Unknown, Shreyas Limon MD [address] [address] 09/21/2025 2:30 PM EST Office Visit [facility] Pulmonary, Allergy and Critical Care Medicine 10 [facility] [place] [address] Lester Hicks MD [address] [address] 10/13/2025 9:20 AM EST Office Visit [facility] [address] [place] [address] Doretha Glynn MD [address] [place] [address] [email or web address] 12/22/2025 8:30 AM EDT Office Visit [address] [place] [address] Johann Hanson, STORE ASSOCIATE [address] [place] [address], [address] [place] [address] [email or web address] 06/30/2026 8:00 AM EDT Office Visit [address] [place] [address] Johann Hanson STORE ASSOCIATE [address] [place] [address], [address] [place] [address] [email or web address] documented as of this encounter [...] documented as of this encounter Care Teams Calibration Checker Relationship Specialty Start Date End Date Johann Hanson CNP [address] [place] [address], [address] [place] [address] [email or web address] PCP - General Family Medicine 02/11/21 Lesetr Hicks MD [address] [place] [address] [email or web address] Historical LMR Provider 07/28/17 Margaux Montanez MD [address] [place] [address], [address] [place] [address] [email or web address] Historical LMR Provider 07/28/17 Khang Kilgore MD [address] [place] [address], [address] [place] [address] Insurance Assigned Provider 01/12/24 Luis Ignacio DO [address] [place] [address], [address] [place] [address] Cardiology 06/28/22 06/16/24 Flo Esteban MD [address] [place] [address] [address] [place] [address] [email or web address] Cardiothoracic Surgery 06/28/22 06/16/24 Corby Prado MD [address] [place] [address], [address] [place] [address] Insurance Assigned Provider 08/13/22 09/16/22 Neisha Pinto RN 22 [facility], [address] [place] [address] [email or web address] PHCM Junior Linux Administrator 02/26/23 06/10/25 Shreyas Wilson MD [address] [place] [address] Gastroenterology 06/17/24 Doretha Glynn MD [address] [place] [address] 3[address] [place] [address] Endocrinology 06/17/24 Izzy Hackett [address] [place] [address] [email or web address] PHC Community Bean Picker Machine Operator 09/11/24 09/11/24 Radha Pereira RN [address] [place] [address] PHCM Junior Linux AdministratorDrop Forger 06/11/25 documented as of this encounter Additional Source Comments The information contained in this document represents components of the legal health record. It is not the complete legal health record.[facility]
--- OUTSIDE RECORDS SUMMARY | 2025-08-05 19:47 | XMS_ITS | Encounter Summary ---
Author Organization [facility] Address [address] [facility] [address] [place] [address] Phone Care Team Providers Care Track Car Operator Name Role Phone Lester Hicks MD Unavailable [phone] Margaux Montanez MD Unavailable Johann Hanson CNP Primary Care Provider [phone] Khang Kilgore MD Unavailable Shreyas Wilson MD Unavailable Doretha Glynn MD Unavailable [phone] Radha Pereira RN Unavailable [phone] Reason for Visit * Reason Onset Date Comments Care Coordination 08/05/2025 [facility] Encounter Details Date Type Department Care Team (Latest Contact Info) Description 08/05/2025 [facility] - Primary Care [address] [place] [address] [phone] Izyz Hackett 10 [place] [address] [email or web address] Care Coordination (General outreach) Social History Tobacco Use Types Packs/Day Years [...] as of this encounter Progress Notes * Izzy Hackett - 08/05/2025 12:45 PM EDT Complex Fountain Roller Assembler Note Resource requested: friendly outreach call Resources provided to: pt via telephone Status: complete Resource(s) provided: CCC called patient as part of routine friendly outreach calls. CCC provided support and empathetic listening. Things are pretty good, having total knee replacement in [place]. Worried about paying for surgery.Dealing with billing procedure in [place]. Also needs to see house nurse, will see them today. Had a lupus flare a month ago, went to ER. Is focusing on self care. Does not need anything from us at the moment but is glad to have care coordination back after Neisha's departure. Gave her Taisha's number and said she will reach out in a month or so. documented in this encounter Plan of Treatment Upcoming Encounters Date Type Department Care Team (Late st Contact Info) Description 08/24/2025 1:30 PM EST Office Visit [facility] [address] [place] [address] [place] [address] Johann Hanson, TIFFANIE 22 [facility], [address] [place] [address] [email or web address] 09/10/2025 9:00 AM EST Office Visit [facility] [address] [place] [address] Unknown, Unknown, Shreyas Limon MD [address] [place] [address] 09/21/2025 2:30 PM EST Office Visit [facility] [address] [place] [address] Lester Hicks MD [address] [place] [address] 10/13/2025 9:20 AM EST Office Visit [facility] [address] [place] [address] [place] [address] Doretha Glynn MD [address] [place] [address] [email or web address] 12/22/2025 8:30 AM EDT Office Visit [address] [place] [address] Johann Hanson CNP [address] [place] [address], [address] [place] [address] [email or web address] 06/30/2026 8:00 AM EDT Office Visit [address] [place] [address] Johann Hanson CNP [address] [place] [address], [address] [place] [address] [email or web address] documented as of this encounter Visit Diagnoses Not on filedocumented in this encounter Additional Health Concerns Assessment Noted Time PHQ-9 Depression Total Score: 4 10/29/19 24 1:54 PM EST PHQ-2 Depression Total Score: 0 06/23/20 25 12:32 PM EDT documented as of this encounter Care Teams Track Car Operator Relationship Specialty Start Date End Date Johann Hanson CNP [address] [place] [address], [address] [place] [address] PCP - General Family Medicine 02/11/21 Lester Hicks MD [address] [place] [address] [email or web address] Historical LMR Provider 07/28/17 Margaux Montanez MD [address] [place] [address], [address] [place] [address] [email or web address] Historical LMR Provider 07/28/17 Khang Kilgore MD [address] [place] [address], [address] [place] [address] [email or web address] Insurance Assigned Provider 01/12/24 Shreyas Wilson MD [address] [place] [address] [email or web address] Gastroenterology 06/17/24 Doretha Glynn MD [address] [place] [address] Endocrinology 06/17/24 Radha Pereira, RN [address] [place] [address] [email or web address] PHCM Supervisor Of OperationsMobility Scooter Repairer 06/11/25 documented as of this encounter Additional Source Comments The information contained in this document represents components of the legal health record. It is not the complete legal health record.[facility]
--- OUTSIDE RECORDS SUMMARY | 2025-08-05 19:47 | XMS_ITS ---
Author Organization [facility] Address [address] [place] [address] [place] [address] Phone Care Team Providers Care Automobile Mechanic Radiator Name Role Phone Lester Hicks MD Unavailable [phone] Margaux Montnaez MD Unavailable Johann Hanson CNP Primary Care Provider [phone] Khang Kilgore MD Unavailable [phone] Shreyas Wilson MD Unavailable Doretha Glynn MD Unavailable [phone] Radha Pereira RN Unavailable [phone] Population Health Care Management (PHCM) Status:Enrolled (Active) Start date:10/23/2023 Enrollment date:10/23/2023 Current support & services provided:[facility] Related social drivers of health:Housing Stability, Child or Family Care, Education, Food, Unemployment, Paying for Meds, Paying Utility Bills, Transportation, Digital Access, SNAP/WIC Case Team Name Relationship Phone Email Radha Pereira RN Registered Nurse(Responsible Staff) [phone] Izzy Herbert PHCM Paper Goods Machine Operator [email or web address] Continued Care and Services Coordination
== END 2025-08-05 16:20 | disposition home or self-care (01) ==
LOC: HO.HCS 15:26
PROVIDERS: PCP Nurse Practitioner Adult Health; Visit Provider Internal Medicine Cardiovascular Disease
DX: Z01.810 Encounter for preprocedural cardiovascular examination (principal); M17.12 Unilateral primary osteoarthritis, left knee; I49.3 Ventricular premature depolarization
CPT/HCPCS: 93010; 99213

== ENCOUNTER → 2025-08-05 15:25 | Outpatient (BNVA) | payer OTHER, SELFPAY | PROVIDERS: PCP Nurse Practitioner Adult Health; Visit Provider Internal Medicine Cardiovascular Disease | DX: Z01.810 Encounter for preprocedural cardiovascular examination (principal); M17.12 Unilateral primary osteoarthritis, left knee | CPT/HCPCS: 93005 ==

== ENCOUNTER 2025-08-07 09:15 | Outpatient (REF) | payer OTHER, SELFPAY ==
--- OUTSIDE RECORDS SUMMARY | 2021-10-10 18:00 | XMS_ITS | Encounter Summary ---
Author Organization [facility] Address [address] [place] [address] [place] [address] Phone Care Team Providers Care Copyright Clerk Name Role Phone Tricia Balderas Unavailable Lester Hicks MD Unavailable [phone] Margaux Montanez MD Unavailable Demario Floyd MD Unavailable [phone] Pam Benson MD Unavailable Adithya Campos FOOD SERVICE HOTEL RUNNER Unavailable [phone] Johann Hanson CNP Primary Care Provider [phone] Encounter Details Date Type Department Care Team (Late st Contact Info) Description 10/10/2021 5:00 PM EST Hospital Encounter [facility] [address] [place] [address] Natacha Hernandez CNP 12 [place], [place] [phone] [email or web address] Social History Tobacco Use Types Packs/Day Years [...] high school, GED, job training, learning the Belizean language, technical skills, or developing parenting skills)? [...] 12/07/2022 9:18 AM Alise Hamilton RN * [place] Suicide Severity Rating Scale (Screener/Recent Self-Report) Question [...] Description 08/24/2025 1:30 PM EST Office Visit [facility] [address] [place] [address] Johann Hanson, FOOD SERVICE HOTEL RUNNER [address] [place] [address], [address] [place] [address] [email or web address] 09/10/2025 9:00 AM EST Office Visit [facility] Gastro[facility]ology Clinic 10 [place] [address] Unknown, Unknown, Shreyas Limon MD [address] [place] [address] 09/21/2025 2:30 PM EST Office Visit [facility], Allergy and Critical Care Medicine 10 [facility] [place] [address] Lester Hicks MD [address] [place] [address] 10/13/2025 9:20 AM EST Office Visit [facility] [address] [place] [address] Doretha Glynn MD [address] [place] [address] [email or web address] 12/22/2025 8:30 AM EDT Office Visit [address] [place] [address] Johann Hanson, FOOD SERVICE HOTEL RUNNER [address] [place] [address], [address] [place] [address] [email or web address] 06/30/2026 8:00 AM EDT Office Visit [address] [place] [address] Johann Hanson, FOOD SERVICE HOTEL RUNNER [address] [place] [address], [address] [place] [address] [email or web address] documented as of this encounter [...] body heights. Increased anterolisthesis of L4 on K3wgdsi 2008, likely secondary to facet degenerative changes. Natacha Hernandez FOOD SERVICE HOTEL RUNNER IMG XR SPINE Final Resul t documented [...] documented as of this encounter Care Teams Copyright Clerk Relationship Specialty Start Date End Date Johann Hanson CNP [address] [place] [address], [address] [place] [address] [email or web address] PCP - General Family Medicine 02/11/21 Tricia Balderas DO 30 [place] [address] [email or web address] Historical LMR Provider 07/28/17 10/15/21 Lester Hicks MD [address] [place] [address] [email or web address] Historical LMR Provider 07/28/17 Margaux Montanez MD [address] [address] [email or web address] Historical LMR Provider 07/28/17 Demario Floyd MD [address] [place] [address] [email or web address] Historical LMR Provider 07/28/17 2 Pam Benson MD [address] [address] Historical LMR Provider 07/28/17 Adithya Campos, TIFFANIE [address] [place] [address] Historical LMR Provider 07/28/17 12/25/21 documented as of this encounter Additional Source Comments The information contained in this document represents components of the legal health record. It is not the complete legal health record.[facility]
--- NOTE | ~2025-08-07 | CT_ITS ---
CLINICAL HISTORY: M17.12 - Unilateral primary osteoarthritis, left knee --- Additional Notes or Special Instructions: BIOMET PROTOCOL CT left knee without contrast Comparison: CR/SR - XR KNEE 3 VIEWS LEFT - 02/04/25 13:00 EDT MR - MR KNEE LT WO CON - 02/04/25 07:54 EDT Findings: No fracture or dislocation. No osseous lesion. Severe medial tibiofemoral compartment joint space narrowing with moderate osteophytosis. Mild lateral tibiofemoral compartment joint space narrowing with moderate osteophytosis. Mild patellofemoral compartment joint space narrowing and osteophytosis. Mild degenerative change of the hip. No hip joint effusion. Mild degenerative change of the ankle. No ankle joint effusion. Small knee joint effusion. 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 There is moderate atrophy gluteus minimus and medius. The musculature is otherwise normal in bulk. Unremarkable limited evaluation of the vasculature. Impression: Severe degenerative change in the medial tibiofemoral compartment. This document has been electronically signed by: Nidia Inman MD on 08/07/2025 16:07:03
--- OUTSIDE RECORDS SUMMARY | 2025-08-07 10:11 | XMS_ITS | Clinical Summary ---
Author Organization [facility] Address [address] [place] [address] Care Team Providers Care Powder Monkey Name Role Phone Unavailable Primary Care Provider [...]
--- OUTSIDE RECORDS SUMMARY | 2025-08-07 10:11 | XMS_ITS | Encounter Summary ---
Author Organization [facility] Address [address] [place] [address] Phone Care Team Providers Care Finishing Pan Operator Name Role Phone Lester Hicks MD Unavailable [phone] Margaux Montanez MD Unavailable Johann Hanson CNP Primary Care Provider [phone] Khang Kilgore MD Unavailable Luis Ignacio DO Unavailable Flo Esteban MD Unavailable [phone] Neisha Pinto RN Unavailable [email or web address] Shreyas Wilson MD Unavailable Doretha Glynn MD Unavailable [phone] Izzy Hackett Unavailable [email or web address] Radha Pereira RN Unavailable Encounter Details Date Type Department Care Team (Late st Contact Info) Description 12/22/2022 Procedure Pass [facility], [address] [id number] Social History Tobacco Use Types Packs/Day Years [...] 08/24/2025 1:30 PM EST Office Visit [facility] [address] [place] [address] Johann Hanson, TIFFANIE 22 [facility], [address] [place] [address] [email or web address] 09/10/2025 9:00 AM EST Office Visit [facility] Gastroenterology Clinic [address] [place] [address] Unknown, Unknown, Shreyas Limon MD [address] [facility] 2 [place] [address] 09/21/2025 2:30 PM EST Office Visit [facility] All[facility] Critical [facility] [address] [facility] [place] [address] Lester Hicks MD [address] [place] [address] 10/13/2025 9:20 AM EST Office Visit [facility] [address] [place] [address] Doretha Glynn MD [address] [place] [address] [email or web address] 12/22/2025 8:30 AM EDT Office Visit [address] [place] [address] Johann Hanson, EXPLOSIVES MIXER OPERATOR [address] [place] [address], [address] [place] [address] [email or web address] 06/30/2026 8:00 AM EDT Office Visit [address] [place] [address] Johann Hanson, EXPLOSIVES MIXER OPERATOR [address] [place] [address], [address] [place] [address] [email or web address] documented as of this encounter Visit Diagnoses Not on filedocumented in this encounter Additional Health Concerns Infection Onset Date Last Indicated Resolved Time COVID-19 10/07/2023 10/07/2023 10/28/2023 1:21 AM EST Assessment Noted Time PHQ-2 Depression Total Score: 0 01/01/20 1:26 PM EDT documented as of this encounter Care Teams Finishing Pan Operator Relationship Specialty Start Date End Date CarmenJohann evans CNP [address] [place] [address], [address] [place] [address] [email or web address] PCP - General Family Medicine 02/11/21 Lester Hicks MD [address] [place] [address] 2[address] [place] [address] [email or web address] Historical LMR Provider 07/28/17 Margaux Montanez MD [address] [place] [address], [address] [place] [address] [email or web address] Historical LMR Provider 07/28/17 Khang Kilgore MD [address] [place] [address], [address] [place] [address] [email or web address] Insurance Assigned Provider 01/12/24 Luis Ignacio DO [address] [place] [address], [address] [place] [address] Cardiology 06/28/22 06/16/24 Flo Esteban MD [address] [place], [place] [address] [place] [address] [email or web address] Cardiothoracic Surgery 06/28/22 06/16/24 Neisha Pinto RN [address] [place], [place] [address] [place] [address] [email or web address] PHCM Site Acquisition Specialist 02/26/23 06/10/25 Shreyas Wilson MD NPI: [id number] [place] [address] Gastroenterology 06/17/24 Doretha Glynn MD [address] [place] [address] Endocrinology 06/17/24 Izzy Hackett [address] [place] [address] [email or web address] PHCM Community Mechanical Service Technician 09/11/24 09/11/24 Radha Pereira RN [address] [place] [address] [email or web address] PHCM Site Acquisition SpecialistHealthcare Marketer 06/11/25 documented as of this encounter Additional Source Comments The information contained in this document represents components of the legal health record. It is not the complete legal health record.[facility]
--- OUTSIDE RECORDS SUMMARY | 2025-08-07 10:11 | XMS_ITS | Encounter Summary ---
Author Organization [facility] Address [address] [place] [address] [place] [address] Phone Care Team Providers Care Tail Board Worker Name Role Phone Lester Hicks MD Unavailable [phone] Margaux Montanez MD Unavailable [phone] Johann Hanson CNP Primary Care Provider [phone] Khang Kilgore MD Unavailable Luis Ignacio DO Unavailable Flo Esteban MD Unavailable [phone] Dilan Rowland MD Unavailable [phone] Corby Prado MD Unavailable [phone] Nesiha Pinto RN Unavailable [email or web address] Shreyas Wilson MD Unavailable Doretha Glynn MD Unavailable [phone] zIzy Hackett Unavailable [email or web address] Radha Pereira RN Unavailable Encounter Details Date Type Department Care Team (Late st Contact Info) Description 02/28/2022 Procedure Pass [facility], Ct Scan - [address] [phone] Social History Tobacco Use Types Packs/Day Years [...] GED, job training, learning the [place] language, technical skills, or developing parenting skills)? [...] EST Office Visit [facility] [address] [place] [address] [place] [address] Johann Hanson, TIFFANIE 22 [facility], [address] [place] [address] [email or web address] 09/10/2025 9:00 AM EST Office Visit [facility] Gastroenterology Clinic 10 [place] [address] Unknown, Unknown, Shreyas Limon MD 10 [facility] 2 [place] [address] 09/21/2025 2:30 PM EST Office Visit [facility] All[facility] Critical [facility] 10 [facility] [place] [address] Lester Hicks MD 10 [facility] 2nd [place] [address] 10/13/2025 9:20 AM EST Office Visit [facility] [address] [place] [address] Doretha Glynn MD [address] [place] [address] [email or web address] 12/22/2025 8:30 AM EDT Office Visit [address] [place] [address] Johann Hanson, KILN DOOR REPAIRER [address] [place] [address], [address] [place] [address] [email or web address] 06/30/2026 8:00 AM EDT Office Visit [address] [place] [address] Johann Hanson, KILN DOOR REPAIRER [address] [place] [address], [address] [place] [address] [email or web address] documented as of this encounter [...] documented as of this encounter Care Teams Tail Board Worker Relationship Specialty Start Date End Date Johann Hanson CNP [address] [place] [address], [address] [place] [address] PCP - General Family Medicine 02/11/21 Lester Hicks MD [address] [place] [address] Historical LMR Provider 07/28/17 Margaux Montanez MD [address] [place] [address], [address] [place] [address] [email or web address] Historical LMR Provider 07/28/17 Khang Kilgore MD [address] [place] [address], [address] [place] [address] Insurance Assigned Provider 01/12/24 Luis Ignacio DO [address] [place] [address], [address] [place] [address] Cardiology 06/28/22 06/16/24 Flo Esteban MD [address] [place], [place] [address] [place] [address] [email or web address] Cardiothoracic Surgery 06/28/22 06/16/24 Dilan Rowland MD [address] [place] [address], [address] [place] [address] Insurance Assigned Provider 07/15/22 08/13/22 Corby Prado MD [address] [place] [address], [address] [place] [address] Insurance Assigned Provider 08/13/22 09/16/22 Neisha Pinto RN [address] [place] [address], [address] [place] [address] [email or web address] PHCM Operator Control Room 02/26/23 06/10/25 Shreyas Wilson MD [address] [place] [address] Gastroenterology 06/17/24 Doretha Glynn MD [address] [place] [address] 3[address] [place] [address] Endocrinology 06/17/24 Izzy Hackett [address] [place] [address] [email or web address] PHCM Community Continuous Miner 09/11/24 09/11/24 Radha Pereira, RANDI [address] [place] [address] PHCM Operator Control RoomDecal Transferrer 06/11/25 documented as of this encounter Additional Source Comments The information contained in this document represents components of the legal health record. It is not the complete legal health record.[facility]
--- OUTSIDE RECORDS SUMMARY | 2025-08-07 10:11 | XMS_ITS | Encounter Summary ---
Author Organization [facility] Address [address] [place] [address] Phone Care Team Providers Care Geosciences Faculty Member Name Role Phone Lester Hicks MD Unavailable [phone] Margaux Montanez MD Unavailable Johann Hanson CNP Primary Care Provider [phone] Khang Kilgore MD Unavailable Luis Ignacio DO Unavailable Flo Esteban MD Unavailable [phone] Neisha Pinto RN Unavailable [email or web address] Shreyas Wilson MD Unavailable [phone] Doretha Glynn MD Unavailable [phone] Izzy Hackett Unavailable [email or web address] Radha Pereira RN Unavailable Encounter Details Date Type Department Care Team (Late st Contact Info) Description 12/11/2022 Procedure Pass [facility] Cardiovascular And Interventional Radiology 30 [place], [place] [id number] Social History Tobacco Use Types Packs/Day Years [...] high school, GED, job training, learning the Somali language, technical skills, or developing parenting skills)? [...] Description 08/24/2025 1:30 PM EST Office Visit [facility] [place] [facility] [address] [place] [address] Johann Hanson, TIFFANIE 22 [facility], [address] [place] [address] [email or web address] 09/10/2025 9:00 AM EST Office Visit [facility]astroenter[facility] Clinic 10 [place] [address] Unknown, Unknown, Shreyas Limon MD 10 [facility] 2 [place] [address] 09/21/2025 2:30 PM EST Office Visit [facility], Allergy and Critical Care Medicine 10 [place] [address] Lester Hicks MD [address] [place] [address] 10/13/2025 9:20 AM EST Office Visit [facility] [address] [place] [address] [place] [address] Doretha Glynn MD [address] [place] [address] [email or web address] 12/22/2025 8:30 AM EDT Office Visit [address] [place] [address] Johann Hanson, FREIGHT BRAKEMAN [address] [place] [address], [address] [place] [address] [email or web address] 06/30/2026 8:00 AM EDT Office Visit [address] [place] [address] Johann Hanson, FREIGHT BRAKEMAN [address] [place] [address], [address] [place] [address] [email or web address] documented as of this encounter Visit Diagnoses Not on filedocumented in this encounter Additional Health Concerns Infection Onset Date Last Indicated Resolved Time COVID-19 10/07/2023 10/07/2023 10/28/2023 1:21 AM EST Assessment Noted Time PHQ-2 Depression Total Score: 0 05/15/20 1:45 PM EDT documented as of this encounter Care Teams Geosciences Faculty Member Relationship Specialty Start Date End Date ValentinJohann TIFFANIE [address] [place] [address], [address] [place] [address] PCP - General Family Medicine 02/11/21 Lester Hicks MD [address] [place] [address] 2nd [place] [address] [email or web address] Historical LMR Provider 07/28/17 Margaux Montanez MD [address] [place] [address], [address] [place] [address] [email or web address] Historical LMR Provider 07/28/17 Khang Kilgore MD [address] [place] [address], [address] [place] [address] [email or web address] Insurance Assigned Provider 01/12/24 Luis Ignacio DO [address] [place] [address], [address] [place] [address] Cardiology 06/28/22 06/16/24 Flo Esteban MD [address] [place] [address] [place] [address] [email or web address] Cardiothoracic Surgery 06/28/22 06/16/24 Neisha Pinto RN [address] [place], [place] [address] [place] [address] [email or web address] PHCM Die Mounter 02/26/23 06/10/25 Shreyas Wilson MD [address] [place] [address] Gastroenterology 06/17/24 Doretha Glynn MD [address] [place] [address] Endocrinology 06/17/24 Izzy Hackett [address] [place] [address] [email or web address] PHCM Community Manager Room 09/11/24 09/11/24 Radha Pereira, RN [address] [place] [address] [email or web address] PHCM Die MounterPlywood Scarfer Tender 06/11/25 documented as of this encounter Additional Source Comments The information contained in this document represents components of the legal health record. It is not the complete legal health record.[facility]
--- OUTSIDE RECORDS SUMMARY | 2025-08-07 10:11 | XMS_ITS | Encounter Summary ---
Author Organization [facility] Address [address] [place] [address] Phone Care Team Providers Care Molder Punch Name Role Phone Lester Hicks MD Unavailable [phone] Margaux Montanez MD Unavailable Johann Hanson CNP Primary Care Provider [phone] Khang Kilgore MD Unavailable Luis Ignacio DO Unavailable Flo Esteban MD Unavailable [phone] Neisha Pinto RN Unavailable [email or web address] Shreyas Wilson MD Unavailable [phone] Doretha Glynn MD Unavailable [phone] Izzy Hackett Unavailable [email or web address] Radha Pereira RN Unavailable [phone] Encounter Details Date Type Department Care Team (Late st Contact Info) Description 12/08/2022 Procedure Pass [facility] Cardiovascular And Interventional Radiology 30 [place], [place] [id number] Social History Tobacco Use Types Packs/Day Years [...] Description 08/24/2025 1:30 PM EST Office Visit [facility] [address] [place] [address] Johann Hanson, TIFFANIE 22 [facility], [address] [place] [address] [email or web address] 09/10/2025 9:00 AM EST Office Visit [facility] G[facility]ology [facility] 10 [place] [address] Unknown, Unknown, Shreyas Limon MD 10 [facility] 2 [place] [address] 09/21/2025 2:30 PM EST Office Visit [facility], Allergy and Critical Care Medicine 10 [facility] [place] [address] Lester Hicks MD [address] [place] [address] 10/13/2025 9:20 AM EST Office Visit [facility] [address] [place] [address] [place] [address] Doretha Gylnn MD [address] [place] [address] [email or web address] 12/22/2025 8:30 AM EDT Office Visit [address] [place] [address] Johann Hanson, PASTRYCOOK [address] [place] [address], [address] [place] [address] [email or web address] 06/30/2026 8:00 AM EDT Office Visit [address] [place] [address] Johann Hanson, PASTRYCOOK [address] [place] [address], [address] [place] [address] [email or web address] documented as of this encounter Visit Diagnoses Not on filedocumented in this encounter Additional Health Concerns Infection Onset Date Last Indicated Resolved Time COVID-19 10/07/2023 10/07/2023 10/28/2023 1:21 AM EST Assessment Noted Time PHQ-2 Depression Total Score: 0 05/15/20 1:45 PM EDT documented as of this encounter Care Teams Molder Punch Relationship Specialty Start Date End Date ValentinJohann TIFFANIE [address] [place] [address], [address] [place] [address] PCP - General Family Medicine 02/11/21 Lester Hicks MD [address] [place] [address] 2nd [place] [address] [email or web address] Historical LMR Provider 07/28/17 Margaux Montanez MD [address] [place] [address], [address] [place] [address] [email or web address] Historical LMR Provider 07/28/17 Khang Kilgore MD [address] [place] [address], [address] [place] [address] [email or web address] Insurance Assigned Provider 01/12/24 Luis Ignacio DO [address] [place] [address], [address] [place] [address] Cardiology 06/28/22 06/16/24 Flo Esteban MD [address] [place] [address] [place] [address] [email or web address] Cardiothoracic Surgery 06/28/22 06/16/24 Neisha Pinto RN [address] [place], [place] [address] [place] [address] [email or web address] PHCM Mental Health Aide 02/26/23 06/10/25 Shreyas Wilson MD [address] [place] [address] Gastroenterology 06/17/24 Doretha Glynn MD [address] [place] [address] Endocrinology 06/17/24 Izzy Hackett [address] [place] [address] [email or web address] PHCM Community Head Wrestling Coach 09/11/24 09/11/24 Radha Pereira, RN [address] [place] [address] [email or web address] PHCM Mental Health AideRemote Inpatient Coder 06/11/25 documented as of this encounter Additional Source Comments The information contained in this document represents components of the legal health record. It is not the complete legal health record.[facility]
--- OUTSIDE RECORDS SUMMARY | 2025-08-07 10:11 | XMS_ITS | Encounter Summary ---
Author Organization [facility] Address [address] [place] [address] Phone Care Team Providers Care Vault Person Name Role Phone Lester Hicks MD Unavailable [phone] Margaux Montanez MD Unavailable [phone] Johann Hanson CNP Primary Care Provider [phone] Khang Kilgore MD Unavailable Luis Ignacio DO Unavailable Flo Esteban MD Unavailable [phone] Neisha Pinto RN Unavailable [email or web address] Shreyas Wilson MD Unavailable Doretha Glynn MD Unavailable [phone] Izzy Hackett Unavailable [email or web address] Radha Pereira RN Unavailable Encounter Details Date Type Department Care Team (Late st Contact Info) Description 12/08/2022 Procedure Pass [facility] Cardiovascular And Interventional Radiology 30 [place], [place] [id number] Social History Tobacco Use Types Packs/Day Years [...] Description 08/24/2025 1:30 PM EST Office Visit [facility] [place] [facility] [address] [place] [address] Johann Hanson, TIFFANIE 22 [facility], [address] [place] [address] [email or web address] 09/10/2025 9:00 AM EST Office Visit [facility] 10 [place] [address] Unknown, Unknown, Shreyas Limon MD 10 [facility] 2 [place] [address] 09/21/2025 2:30 PM EST Office Visit [facility] Pulmonary, Allergy and Critical Care Medicine 10 [facility] [place] [address] Lester Hicks MD [address] [place] [address] 10/13/2025 9:20 AM EST Office Visit [facility] [address] [place] [address] [place] [address] Doretha Glynn MD [address] [place] [address] [email or web address] 12/22/2025 8:30 AM EDT Office Visit [address] [place] [address] Johann Hanson, UNDERBASTER [address] [place] [address], [address] [place] [address] [email or web address] 06/30/2026 8:00 AM EDT Office Visit [address] [place] [address] Johann Hanson, UNDERBASTER [address] [place] [address], [address] [place] [address] [email or web address] documented as of this encounter Visit Diagnoses Not on filedocumented in this encounter Additional Health Concerns Infection Onset Date Last Indicated Resolved Time COVID-19 10/07/2023 10/07/2023 10/28/2023 1:21 AM EST Assessment Noted Time PHQ-2 Depression Total Score: 0 05/15/20 1:45 PM EDT documented as of this encounter Care Teams Vault Person Relationship Specialty Start Date End Date ValentinJohann TIFFANIE [address] [place] [address], [address] [place] [address] PCP - General Family Medicine 02/11/21 Lester Hicks MD [address] [place] [address] 2nd [place] [address] [email or web address] Historical LMR Provider 07/28/17 Margaux Montanez MD [address] [place] [address], [address] [place] [address] [email or web address] Historical LMR Provider 07/28/17 Khang Kilgore MD [address] [place] [address], [address] [place] [address] [email or web address] Insurance Assigned Provider 01/12/24 Luis Ignacio DO [address] [place] [address], [address] [place] [address] Cardiology 06/28/22 06/16/24 Flo Esteban MD [address] [place] [address] [place] [address] [email or web address] Cardiothoracic Surgery 06/28/22 06/16/24 Neisha Pinto RN [address] [place], [place] [address] [place] [address] [email or web address] PHCM Process Mold Technician 02/26/23 06/10/25 Shreyas Wilson MD [address] [place] [address] Gastroenterology 06/17/24 Doretha Glynn MD [address] [place] [address] Endocrinology 06/17/24 Izzy Hackett [address] [place] [address] [email or web address] PHCM Community Department Head College [employer] 09/11/24 09/11/24 Radha Pereira, RN [address] [place] [address] [email or web address] PHCM Process Mold TechnicianArch Cushion Skiving Machine Operator 06/11/25 documented as of this encounter Additional Source Comments The information contained in this document represents components of the legal health record. It is not the complete legal health record.[facility]
--- OUTSIDE RECORDS SUMMARY | 2025-08-07 10:11 | XMS_ITS | Encounter Summary ---
Author Organization [facility] Address [address] [place] [address] Phone Care Team Providers Care Pulp House Supervisor Name Role Phone Lester Hicks MD Unavailable [phone] Margaux Montanez MD Unavailable [phone] Johann Hanson CNP Primary Care Provider [phone] Khang Kilgore MD Unavailable Neisha Pinto RN Unavailable [email or web address] Shreyas Wilson MD Unavailable Doretha Glynn MD Unavailable [phone] Izzy Hackett Unavailable [email or web address] Radha Pereira RN Unavailable Encounter Details Date Type Department Care Team (Late st Contact Info) Description 06/20/2024 Procedure Pass [facility] Admitting Dept Virtual Department 30 [place], [place] [id number] Social History Tobacco Use Types Packs/Day Years [...] high school, GED, job training, learning the Maltese language, technical skills, or developing parenting skills)? [...] Description 08/24/2025 1:30 PM EST Office Visit [address] [address] Johann Hanson, ELECTRO TECH 22 [facility], [address] [place] [address] [email or web address] 09/10/2025 9:00 AM EST Office Visit [facility] Gastroenterology Clinic 10 [place] [address] Unknown, Unknown, Shreyas Limon MD [address] [place] [address] 09/21/2025 2:30 PM EST Office Visit [facility] Pulmonary, Allergy and Critical Care Medicine 10 [place] [address] Lester Hicks MD [address] [place] [address] 10/13/2025 9:20 AM EST Office Visit [facility] [address] [place] [address] Doretha Glynn MD [address] [place] [address] [email or web address] 12/22/2025 8:30 AM EDT Office Visit [address] [address] SantJohann evans CNP 22 [facility], [address] [place] [address] [email or web address] 06/30/2026 8:00 AM EDT Office Visit [address] [address] Johann Hanson CNP 22 [facility], [address] [place] [address] [email or web address] documented as of this encounter Visit Diagnoses Not on filedocumented in this encounter Additional Health Concerns Assessment Noted Time PHQ-9 Depression Total Score: 4 10/29/19 1:54 PM EST PHQ-2 Depression Total Score: 0 06/10/20 9:22 AM EDT documented as of this encounter Care Teams Pulp House Supervisor Relationship Specialty Start Date End Date Johann Hanson CNP [address] [place] [address], [address] [place] [address] PCP - General Family Medicine 02/11/21 Lester Hicks MD [address] [place] [address] Historical LMR Provider 07/28/17 Margaux Montanez MD [address] [place] [address], [address] [place] [address] Historical LMR Provider 07/28/17 Khang Kilgore MD [address] [place] [address], [address] [place] [address] Insurance Assigned Provider 01/12/24 PintoNeisha hairston RN 22 [facility], [address] [place] [address] [email or web address] PHCM Front Elevator Operator 02/26/23 06/10/25 Shreyas Wilson MD [address] [place] [address] Gastroenterology 06/17/24 Doretha Glynn MD [address] [place] [address] 3[address] [place] [address] Endocrinology 06/17/24 Izzy Hackett [address] [place] [address] [email or web address] PHCM Community Counterintelligence/Humint Specialist 09/11/24 09/11/24 Radha Pereira RN [address] [place] [address] PHC Front Elevator OperatorOracle Database Architect 06/11/25 documented as of this encounter Additional Source Comments The information contained in this document represents components of the legal health record. It is not the complete legal health record.[facility]
--- OUTSIDE RECORDS SUMMARY | 2025-08-07 10:11 | XMS_ITS | Encounter Summary ---
Author Organization [facility] Address [address] [place] [address] [place] [address] Phone Care Team Providers Care Power Originator Name Role Phone Lester Hicks MD Unavailable [phone] Margaux Montanez MD Unavailable Johann Hanson CNP Primary Care Provider [phone] Khang Kilgore MD Unavailable [phone] Neisha Pinto RN Unavailable [email or web address] Shreyas Wilson MD Unavailable Doretha Glynn MD Unavailable [phone] Radha Pereira RN Unavailable [phone] Encounter Details Date Type Department Care Team (Late st Contact Info) Description 01/13/2025 Procedure Pass [facility] L2 PRU [address] [place] [address] Social History Tobacco Use Types Packs/Day Years [...] high school, GED, job training, learning the Togolese language, technical skills, or developing parenting skills)? [...] Description 08/24/2025 1:30 PM EST Office Visit [address] [place] [address] Johann Hanson, PROGRAM ENGINEER [address] [place] [address], [address] [place] [address] [email or web address] 09/10/2025 9:00 AM EST Office Visit [facility]ology [facility] [address] [place] [address] Unknown, Unknown, Shreyas Limon MD [address] [place] [address] 09/21/2025 2:30 PM EST Office Visit [facility] Pulmonary, Allergy and Critical Care Medicine 10 [place] [address] Lester Hicks MD [address] [place] [address] 10/13/2025 9:20 AM EST Office Visit [facility] [address] [place] [address] Doretha Glynn MD [address] [place] [address] [email or web address] 12/22/2025 8:30 AM EDT Office Visit [address] [place] [address] Johann Hanson, TIFFANIE [address] [place] [address], [address] [place] [address] [email or web address] 06/30/2026 8:00 AM EDT Office Visit [address] [place] [address] Johann Hanson CNP 22 [facility], [address] [place] [address] [email or web address] documented as of this encounter Visit Diagnoses Not on filedocumented in this encounter Additional Health Concerns Assessment Noted Time PHQ-9 Depression Total Score: 4 10/29/19 1:54 PM EST PHQ-2 Depression Total Score: 0 06/10/20 9:22 AM EDT documented as of this encounter Care Teams Power Originator Relationship Specialty Start Date End Date Johann Hanson CNP [address] [place] [address], [address] [place] [address] PCP - General Family Medicine 02/11/21 Lester Hicks MD [address] [place] [address] [email or web address] Historical LMR Provider 07/28/17 Margaux Montanez MD [address] [place] [address], [address] [place] [address] Historical LMR Provider 07/28/17 Khang Kilgore MD [address] [place] [address], [address] [place] [address] Insurance Assigned Provider 01/12/24 Neisha Pinto RN [address] [place] [address], [address] [place] [address] [email or web address] PHCM Plugger Worker 02/26/23 06/10/25 Shreyas Wilson MD [address] [place] [address] Gastroenterology 06/17/24 Doretha Glynn MD [address] [place] [address] Endocrinology 06/17/24 Radha Pereira RN [address] [place] [address] [email or web address] PHC Plugger WorkerFugitive Investigator 06/11/25 documented as of this encounter Additional Source Comments The information contained in this document represents components of the legal health record. It is not the complete legal health record.[facility]
--- OUTSIDE RECORDS SUMMARY | 2025-08-07 10:11 | XMS_ITS | Clinical Summary ---
Author Organization [facility] Address [address] [place] [phone] Phone Care Team Providers Care Senior Power Scheduler Name Role Phone Lester Hicks MD Unavailable [phone] Margaux Montanez MD Unavailable Eunice Sanz CNP Primary Care Provider [phone] Khang Kilgore MD Unavailable Shreyas Murphy MD Unavailable Doretha Glynn MD Unavailable [phone] Radha Pereira RN Unavailable [phone] Allergies Active Allergy Reactions Criticality Noted [...] folic acid (FOLVITE) 1 MG tabletIndications :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, penitentiary, current use TAKE 1 TABLET BY MOUTH [...] (PLAQUENIL) 200 mg tabletIndications :Inflammatory arthritis,Methotr exate, medical coding instructor, current use,Primary osteoarthritis involving multiple joints,Sjogren's syndrome [...] 1 mL 27 x 1/2 SyrgIndications:M ethotrexate, medical coding instructor, current use USE DIRECTED TO INJECT UNDER [...] 1 mL 27 x 1/2 SyrgIndications:M ethotrexate, medical coding instructor, current use Inject 1 each under the [...] gain. She has previously worked with a case specialist. Given active and chronic GI symptoms, [...] pain and has an orthopedics consult at [facility] this week. She is up to date [...] her to contact [facility] clinic at [facility] [place] advice. Mouth sores 03/20/2022 Assessment & [...] recent labs from late July 2024 at [facility] quite stable on current regimen. Get labs [...] most recent labs from July 2024 at [facility] quite stable on current regimen. Get labs [...] thyroid hormone. Will communicate about labs through [facility]. Reviewed symptoms of under and over replacement, patient to call if concerns. Follow-up in 6 months Assessment & Plan (04/23/2023 4:46 PM EDT): Establish care with endocrinology this fall as scheduled. For now, continue current dose of levothyroxine as last TSH was improved and she has not symptoms of over- or under-repletion. 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 Assessment & Plan (04/04/2022 11:15 AM EDT): Close follow-up with treating underground drill operator exactly as instructed to keep her [...] therapy and follow-up as scheduled with her underground drill operator. Assessment & Plan (08/22/2020 6:54 PM EST): Carefully continue current dose of thyroid replacements therapy and follow-up as scheduled with her underground drill operator. Assessment & Plan (05/09/2020 4:52 PM EDT): Carefully continue current dose of thyroid replacements therapy and follow-up as scheduled with her underground drill operator. 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 She is on [...] TSH on 08/08/2019 was suppressed at 0.05 IL U/mL. I do not know when her [...] 8:01 AM EDT): Daily sun protection. See pigskin trimmer as scheduled at least every 12 months.-Most recent checkup from February 2025 Free of signs of Plaquenil toxicity She is arranging for ophthalmologic checkup in the nearest future. Assessment & Plan (03/19/2025 9:53 AM EDT): Daily sun protection. See pigskin trimmer as scheduled at least every 12 months.-Most recent checkup from February 2025 Free of signs of Plaquenil toxicity She is arranging for ophthalmologic checkup in the nearest future. Assessment & Plan (12/18/2024 1:02 PM EDT): Daily sun protection. See pigskin trimmer as scheduled at least every 12 months. She is arranging for ophthalmologic checkup in the nearest future. Assessment & Plan (10/03/2024 7:03 PM EST): Daily sun protection. See pigskin trimmer as scheduled at least every 12 months. She is arranging for ophthalmologic checkup in the nearest future. Assessment & Plan (06/06/2024 12:49 PM EDT): Daily sun protection. See pigskin trimmer as scheduled at least every 12 months. She is arranging for ophthalmologic checkup in the nearest future. Assessment & Plan (03/23/2024 12:09 PM EDT): Daily sun protection. See pigskin trimmer as scheduled at least every 12 months. Assessment & Plan (11/28/2023 9:30 AM EST): Daily sun protection. See pigskin trimmer as scheduled at least every 12 months. Assessment & Plan (05/04/2023 2:51 PM EDT): Daily sun protection. See pigskin trimmer as scheduled at least every 12 months. Assessment & Plan (10/30/2022 3:44 PM EST): Daily sun protection. See pigskin trimmer as scheduled at least every 12 months. Assessment & Plan (06/28/2022 4:12 PM EDT): Daily sun protection. See pigskin trimmer as scheduled at least every 12 months. Assessment & Plan (04/04/2022 11:18 AM EDT): Daily sun protection. See pigskin trimmer as scheduled at least every 12 months. Assessment & Plan (12/07/2021 4:45 PM EST): Daily sun protection. See pigskin trimmer as scheduled. Assessment & Plan (09/08/2021 3:46 PM EST): Daily sun protection. See pigskin trimmer as scheduled. Assessment & Plan (05/25/2021 4:46 PM EDT): Daily sun protection. See pigskin trimmer as scheduled. Assessment & Plan (03/24/2021 11:21 AM EDT): Daily sun protection. See pigskin trimmer as scheduled. Assessment & Plan (01/12/2021 4:02 PM EDT): Daily sun protection. See pigskin trimmer as scheduled. Assessment & Plan (10/24/2020 9:02 PM EST): Daily sun protection. See pigskin trimmer as scheduled. Assessment & Plan (08/22/2020 6:55 PM EST): Daily sun protection. See pigskin trimmer as scheduled. Assessment & Plan (05/09/2020 4:54 PM EDT): Daily sun protection. See pigskin trimmer as scheduled. Assessment & Plan (03/28/2020 12:14 PM EDT): Daily sun protection. See pigskin trimmer as scheduled. Assessment & Plan (02/05/2020 10:49 AM EDT): Daily sun protection. See pigskin trimmer as scheduled. Assessment & Plan (09/11/2019 8:47 AM EST): Daily sun protection. See pigskin trimmer as scheduled. Assessment & Plan (07/08/2019 3:06 PM EDT): Daily sun protection. See pigskin trimmer as scheduled. Assessment & Plan (03/25/2019 10:21 AM EDT): Daily sun protection. See pigskin trimmer as scheduled. Assessment & Plan (12/23/2018 2:36 PM EDT): Daily sun protection. See pigskin trimmer as scheduled. Assessment & Plan (11/19/2018 8:58 PM EST): Daily sun protection. 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 Dry mouth 01/04/2018 Calculus of [...] and prior to next visit-standing orders in [facility]. Consider neurology consult regarding headaches and [...] safety and efficacy of therapy-standing orders in [facility]. Assessment & Plan (03/19/2025 9:48 AM EDT): Clinically currently well-controlled except L knee, hands and neck soreness and stiffness particularly in the morning. Get labs monitoring safety and efficacy of therapy prior to next visit-standing orders in [facility]. Consider neurology consult regarding headaches and [...] safety and efficacy of therapy-standing orders in [facility]. Assessment & Plan (12/18/2024 10:06 PM EDT): Clinically currently well-controlled except L knee, hands and neck soreness and stiffness particularly in the morning. Get labs monitoring safety and efficacy of therapy today and prior to next visit-standing orders in [facility]. Consider neurology consult regarding headaches and [...] safety and efficacy of therapy-standing orders in [facility]. Assessment & Plan (06/17/2024 11:48 AM EDT): Follow up with Dr. Hicks for Sjogren's, asthma. Continue inhalers. Assessment & Plan (06/06/2024 12:47 PM EDT): Clinically currently well-controlled except L knee, hands and neck soreness and stiffness particularly in the morning. Get labs monitoring safety and efficacy of therapy today and prior to next visit-standing orders in [facility]. Consider neurology consult regarding headaches and [...] safety and efficacy of therapy-standing orders in [facility]. Assessment & Plan (03/14/2024 3:34 PM EDT): Clinically currently well-controlled. Get labs monitoring safety and efficacy of therapy prior to next visit-standing orders in [facility]. Consider neurology consult regarding headaches and [...] therapy prior to next visit-standing orders in [facility]. Consider neurology consult regarding headaches and [...] undergo L TKR under spinal anesthesia at [facility] in October 2025. Call if worse [...] at least every 3-4 months-standing orders in [facility]. Gentle, regular exercise routine. Avoid falls, [...] at least every 3-4 months-standing orders in [facility]. Gentle, regular exercise routine. Avoid falls, [...] at least every 3 months-standing orders in [facility]. Gentle, regular exercise routine. Avoid falls, [...] at least every 3 months-standing orders in [facility]. Gentle, regular exercise routine. Avoid falls, [...] writing. Provider: Margaux Montanez MD Patient: Herlinda Pittlisette : 1960 Date: 06/06/2024 Assessment & Plan [...] therapy at least every 3 months. 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, medical coding instructor, current use 10/04/2017 Assessment & Plan (07/23/2025 [...] mixture of 1% lidocaine and 40 mg Zcuu-Rnwngy-jclmij refer for details to procedure note below. [...] mixture of 1% lidocaine and 40 mg Xvlz-Qkvybf-zequdp refer for details to procedure note below. [...] mixture of 1% lidocaine and 40 mg Zrte-Swljoy-ywzrap refer for details to procedure note below. [...] mixture of 1% lidocaine and 40 mg Sued-Ueouvr-qeuxzt refer for details to procedure note below. 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 She agrees. [...] manifestation of SLE but will ask her residential sales to weigh in. Unfortunately, the wait for [...] one of the aspiration procedures. Improved-followed by cellulose insulation helper and medical imaging technologist. Assessment & Plan (06/17/2024 11:46 AM EDT): S/P repair 2022. Await EGD this week. Assessment & Plan (06/06/2024 12:52 PM EDT): Corrected surgically in November 2022 with subsequent pleural effusions, vasovagal reaction upon one of the aspiration procedures. Improved-followed by cellulose insulation helper and medical imaging technologist. Assessment & Plan (02/28/2022 4:42 PM EDT): [...] Department Care Team Description 08/05/2025 Patient Outreach [facility] [address] [place] [id number] Izzy Hackett Care Coordination (General outreach) 07/27/[address] [place] [address] Xiao Mckeon RN Results 07/24/2025 Refill [facility] [address] [place] [address] [place] [address] Margaux Montanez MD Medication Refill 07/24/2025 Orders Only [address] [place] [address] Eunice Sanz CNP 07/23/2025 8:00 AM EDT Office Visit [facility] [address] [place] [address] [place] [address] Margaux Montanez MD SLE-Sjogren overlap syndrome (Primary Dx); Sjogren's syndrome with lung involvement; Inflammatory arthritis; Primary osteoarthritis involving multiple joints; 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, penitentiary, current use; Long-term use of Plaquenil; Fibromyalgia; Gastroesophageal reflux disease with esophagitis without hemorrhage; Vitamin D insufficiency; PTSD (post-traumatic stress disorder); On selective serotonin reuptake inhibitor (SSRI) therapy; Class 1 obesity due to excess calories with serious comorbidity and body mass index (BMI) of 31.0 to 31.9 in adult 07/23/2025 Orders [place] [address] [place] [address] Eunice Sanz CNP Essential hypertension; Encounter for medication monitoring 07/22/2025 1:30 PM EDT Office Visit [address] [place] [address] Eunice Sanz CNP Screening for malignant neoplasm of cervix (Primary Dx); Primary osteoarthritis of both knees 07/16/2025 Telephone [facility] [address] [place] [address] Lester Hicks MD Appointment 07/06/2025 Enrollment [facility] [address] [place] [phone] 07/06/2025 Refill [facility] [address] [place] [address] Lester Hicks MD Medication Refill 07/03/[address] [place] [address] uEnice Sanz CNP Lab sample 06/25/2025 7:33 AM EDT - 06/25/2025 11:59 PM EDT Hospital Encounter [address] [address] Eunice Sanz CNP Discharge Disposition: Home or Self Care 06/24/2025 8:00 AM EDT Office Visit [address] [place] [address] Eunice Sanz CNP Encounter for general adult [...] Needs flu shot; Immunization counseling 06/18/[address] [place] [address] Eunice Sanz CNP Medication Refill 06/05/2025 Refill [facility] [address] [place] [address] [place] [address] Margaux Montanez MD Medication Refill 06/01/2025 Patient Outreach [facility] [address] [address] Neisha Pinto, RANDI [facility], [facility] transition letter ) 05/25/[address] [place] [address] Eunice Sanz CNP Medication Refill 05/25/2025 Telephone [facility] [address] [place] [address] Margaux Montanez MD 05/22/2025 Telephone [facility] [address] [place] [address] Margaux Montanez MD 05/18/2025 Orders Only [facility] [address] [place] [address] [place] [address] Nancy See MA SLE-Sjogren overlap syndrome; Sjogren's syndrome with lung involvement; Inflammatory arthritis; 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, medical coding instructor, current use 05/13/2025 Telephone [facility] [address] [place] [address] Sung Marlow, RANDI 05/13/2025 Nurse Triage [facility] [address] [place] [address] Sung Marlow, RANDI 05/11/2025 Refill [facility] [address] [place] [address] [place] [address] Margaux Montanez MD Medication Refill 05/07/2025 Refill [facility] [address] [place] [address] [place] [address] Margaux Montanez MD Medication Refill 06/17/2024 Procedure Pass [facility], [address] [address] from Last 3 Months Immunizations Immunization Administration [...] high school, GED, job training, learning the Persian language, technical skills, or developing parenting skills)? [...] Description 08/24/2025 1:30 PM EST Office Visit [facility] [address] [address] Eunice Sanz, SQL MANAGER [facility], [address] [place] [address] [email or web address] 09/10/2025 9:00 AM EST Office Visit [facility] [address] [place] [address] Unknown, Unknown, Shreyas Limon MD [address] [address] 09/21/2025 2:30 PM EST Office Visit [facility] [address] [facility] [place] [place] [address] Lester Hicks MD [address] [address] 10/13/2025 9:20 AM EST Office Visit [facility] [address] [place] [address] [place] [address] Doretha Glynn MD [address] [place] [address] [email or web address] 12/22/2025 8:30 AM EDT Office Visit [address] [place] [address] Eunice Sanz, SQL MANAGER [address] [place] [address], [address] [place] [address] [email or web address] 06/30/2026 8:00 AM EDT Office Visit [address] [place] [address] Eunice Sanz, SQL MANAGER [address] [place] [address], [address] [place] [address] [email or web address] Health Maintenance Due Date Last [...] syndrome with lung involvement Inflammatory arthritis 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, medical coding instructor, current use DOUBLE STRANDED DNA ANTIBODIES Routine 05/14/2025 3:12 PM EDT SLE-Sjogren overlap syndrome Sjogren's syndrome with lung involvement Inflammatory arthritis 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, penitentiary, current use CPK (CREATINE KINASE) Routine 05/14/2025 3:12 PM EDT SLE-Sjogren overlap syndrome Sjogren's syndrome with lung involvement Inflammatory arthritis 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, penitentiary, current use COMPLEMENT C4 Routine 05/14/2025 3:12 PM EDT SLE-Sjogren overlap syndrome Sjogren's syndrome with lung involvement Inflammatory arthritis 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, penitentiary, current use COMPLEMENT C3 Routine 05/14/2025 3:12 PM EDT SLE-Sjogren overlap syndrome Sjogren's syndrome with lung involvement Inflammatory arthritis 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, penitentiary, current use CBC AND DIFFERENTIAL Routine 05/14/2025 3:12 PM EDT SLE-Sjogren overlap syndrome Sjogren's syndrome with lung involvement Inflammatory arthritis 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, medical coding instructor, current use SEDIMENTATION RATE (ESR) Routine 05/14/2025 3:12 PM EDT SLE-Sjogren overlap syndrome Sjogren's syndrome with lung involvement Inflammatory arthritis 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, penitentiary, current use C-REACTIVE PROTEIN Routine 05/14/2025 3: 12 PM EDT SLE-Sjogren overlap syndrome Sjogren's syndrome with lung involvement Inflammatory arthritis 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, penitentiary, current use COMPREHENSIVE METABOLIC PANEL Routine 05/14/2025 3:12 PM EDT SLE-Sjogren overlap syndrome Sjogren's syndrome with lung involvement Inflammatory arthritis 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, medical coding instructor, current use BASIC METABOLIC PANEL STAT 03/12/2025 [...] Only (07/22/2025 8:44 AM EDT) Eunice Sanz SQL MANAGER CV ECHO ORDERABLES Final Result * Pap Test (07/22/2025 12:00 AM EDT) Only the most recent of2 resultswithin the time period is included. 07/22/2025 07/23/2025 9:2 3 AM EDT Narrative SEE NARRATIVE - 07/30/2025 1:38 PM EDT [address] [address] Mobile Qa Tester: Dilan Sams MD COMMUNITY HEALTH COORDINATOR Cytology Report FINAL DIAGNOSIS A. PAP SMEAR (THIN PREP) CE: SPECIMEN ADEQUACY: Satisfactory for evaluation; limited squamous cellularity. Limited by inflammation INTERPRETATION: NEGATIVE FOR INTRAEPITHELIAL LESION OR MALIGNANCY. This specimen was analyzed by the automated ThinPrep Imaging System ([email or web address] and manually rescreened by a transfer table operator helper and/or pathologist. Electronically Signed Out By: BRITT [...] : 1960 (Age: 65) Sex: F Institution: [facility] Location: [facility] Date of Collection: 07/22/2025 Date of Reported: 07/30/2025 13:38 Results to: Eunice Sanz MSN Eunice Sanz [facility] CYTOLOGY ORDERABLES Final Result SEE NARRATIVE [...] AM EDT Type of EKG: Standard. Global (53878). Notes Sinus rhythm. QTc 450 ms, up from 433 in 2022. Slight left precordial repolarization disturbance. No ST/T wave changes. Echo ordered. Eunice Sanz CNP ECG ORDERABLES Edited Re sult - Final Performing Organization Address [facility] de Phone Number EXTERNAL NON-INTERFACED REF LAB * Total protein creatinine ratio, random urine (05/14/2025 3:12 PM EDT) Urine (Urine) Margaux Montanez MD URINE ORDERABLES Final R esult Performing Organization Address [facility] Co de Phone Number EXTERNAL NON-INTERFACED REF LAB * Double stranded DNA antibodies (05/14/2025 3:12 PM EDT) Blood Marguax Montanez MD LAB BLOOD ORDERABLES Fin al Result Performing Organization Address [facility] Co de Phone Number EXTERNAL NON-INTERFACED REF LAB * CPK (creatine kinase) (05/14/2025 3:12 PM EDT) Blood Margaux Montanez MD LAB BLOOD ORDERABLES Fin al Result Performing Organization Address [facility] de Phone Number EXTERNAL NON-INTERFACED REF LAB * Complement C4 (05/14/2025 3:12 PM EDT) Blood Margaux Montanez MD LAB BLOOD ORDERABLES Fin al Result Performing Organization Address [facility] Phone Number EXTERNAL NON-INTERFACED REF LAB * Complement C3 (05/14/2025 3:12 PM EDT) Blood Margaux Montanez MD LAB BLOOD ORDERABLES Fin al Result Performing Organization Address [facility] de Phone Number EXTERNAL NON-INTERFACED REF LAB * CBC and differential (05/14/2025 3:12 PM EDT) Blood Margaux Montanez MD LAB BLOOD ORDERABLES Fin al Result Performing Organization Address [facility] de Phone Number EXTERNAL NON-INTERFACED REF LAB * Sedimentation rate (ESR) (05/14/2025 3:12 PM EDT) Blood Margaux Montanez MD LAB BLOOD ORDERABLES Fin al Result Performing Organization Address [facility] de Phone Number EXTERNAL NON-INTERFACED REF LAB * C-Reactive Protein (05/14/2025 3:12 PM EDT) Blood Margaux Montanez MD LAB BLOOD ORDERABLES Fin al Result Performing Organization Address [facility] Co de Phone Number EXTERNAL NON-INTERFACED REF LAB * Comprehensive metabolic panel (05/14/2025 3:12 PM EDT) Blood Margaux Montanez MD LAB BLOOD ORDERABLES Fin al Result Performing Organization Address [facility] de Phone Number EXTERNAL NON-INTERFACED REF LAB * Basic metabolic panel (03/12/2025 6:10 AM EDT) SODIUM 142 136 - 145 mmol/L [facility] POTASSIUM 3.4 3.4 - 5.1 mmol/L [facility] CHLORIDE 103 98 - 107 mmol/L [facility] CO2 31 22 - 31 mmol/L [facility] BUN 11 6 - 23 mg/dL [facility] CREATININE 0.80 0.50 - 1.20 mg/dL [facility] GLUCOSE 84 70 - 100 mg/dL [facility] CALCIUM 9.7 8.8 - 10.7 mg/dL [facility] EGFR 83 >59 mL/min/1.7 3m2 [facility] Comment:Estimated glomerular filtration rate calculated using the CKD-EPI refit equation. ANION GAP 8 7 - 17 mmol/L [facility] 03/12/2025 6:10 AM EDT 03/12/2025 6:48 AM EDT Lj Moscoso MD, MPH LAB BLOOD ORDERABLES Final Result Performing Organization Address [facility] de Phone Number [facility] [address] [place] [id number] * TSH (12/10/2024 4:12 PM EST) Blood Doretha Glynn MD LAB BLOOD ORDERABLES Final Res ult Performing Organization Address [facility] Co de Phone Number EXTERNAL NON-INTERFACED REF LAB * ENDOSCOPY, COLON (06/20/2024 9:51 AM EDT) Narrative Transcriptions Shreyas Murphy MD - 06/20/2024 9:51 AM EDT [facility] Patient Name: Herlinda Saleem Attending MD:: SHREYAS MURPHY MD, Procedure Date: 06/20/2024 9:51 AM Date of : 1960 Age: 64 Admit Type: Outpatient Gender: Female Room: [place] [address] Referring MD: EUNICE SANZ Exam Type: Colonoscopy [...] 9:51 AM Procedure Code(s): --- Professional --- 35006, Colonoscopy, flexible; with biopsy, single or multiple --- Technical --- 95406, Colonoscopy, flexible; with biopsy, single or multiple Diagnosis Code(s): --- Professional --- K52.9, Noninfective gastroenteritis and colitis, unspecified --- Technical --- K52.9, Noninfective gastroenteritis and colitis, unspecified CPT copyright 2021 [employer]. All rights reserved. The codes documented in this report are preliminary and upon hebrew cantor reviewmay be revised to meet current compliance requirements. Procedure Date: 06/20/2024 9:51:[address] [place] [id number] Andreaemma Valentin [facility] GI PROCEDURE ORDERABLES F inal Result * (ABNORMAL) Lipid panel (12/08/2020 4:37 PM EST) HDL 60 mg/dL [facility] Comment: Interpretation <40 mg/dL: Low HDL cholesterol (major risk factor for CHD) Greater than or equal to 60 mg/dL: High HDL cholesterol ( negative risk factor for CHD) HDL - cholesterol is affected by a number of factors, e.g. smoking, excerise, hormones, sex and age. CHOLESTEROL 192 0 - 240 mg/dL [facility] TRIGLYCERIDES 139 30 - 160 mg/dL [facility] LDL 104 50 - 129 mg/dL [facility] Comment: LDL levels in terms of risk for coronary heart disease: <100 mg/dL: Optimal 100-129 mg/dL: Near or above optimal 130-159 mg/dL: Borderline high 160-189 mg/dL: High >190 mg/dL: Very High CARDIAC RISK RATIO 3.2(L) 3.3 - 4.4 C [facility] Blood 12/08/2020 4:37 PM EST 12/08/2020 4:45 PM EST Mamta Whitney DO LAB BLOOD ORDERABLES Final Result [address] [address] * Fecal immunochemical test x1 (FIT) (04/15/2020 8:00 AM EDT) Immuno Fecal Occult Negative [facility] Stool (Stool) 04/15/2020 8:0 0 AM EDT 04/15/2020 4:23 PM EDT Alise Winkler PA-C BODY FLUIDS AND STOOLS ORDERABL ES Final Result Performing Organization Address [facility]/ZIP Co de Phone Number [address] [address] * Outside Hepatitis C Virus Screening (07/14/2014) Hepatitis C Screening - External Neg Historical Provider LAB BLOOD ORDERABLES Ibis l Result * OUTSIDE HIV TEST (07/14/2014) HIV - External Neg Historical Provider LAB BLOOD ORDERABLES Ibis l Result from Last 3 Months or Most Recently Relevant to Health Maintenance Insurance [employer] Member Subscriber Plan / Payer ( fective 2023-) Name:Herlinda Haskins Relation to Subscriber:Self Name:Herlinda Haskins Payer ID:[id number] (NAIC) Type:PPO Address: [place] [id number] [employer] Member Subscriber Plan / Payer ( fective 2023-) Name:Herlinda Haskins Relation to Subscriber:Self Name:Herlinda Haskins Payer ID:[id number] (NAIC) Type:PPO Address: [place] [id number] * Guarantor: Herlinda Haskins Account Type Relation to Patient Date of Phone Billing Address Personal/Family Self [address] [place] [address] [employer] [place] [employer] Advance Directives For more information, please contact: [phone] (9AM - 5PM [facility], Sunday-Sunday) Documents on File Type Date Recorded Patient Apprentice Technician Expl anation Healthcare Proxy 11/21/2022 3:55 PM [...] Status Confirmed With: Patient Care Teams Senior Power Scheduler Relationship Specialty Start Date End Date Eunice Sanz CNP [address] [place] [address], [address] [place] [address] PCP - General Family Medicine 02/11/21 Lester Hicks MD [address] [place] [address] [email or web address] Historical LMR Provider 07/28/17 Margaux Montanez MD [address] [place] [address], [address] [place] [address] Historical LMR Provider 07/28/17 Khang Kilgore MD [address] [place] [address], [address] [place] [address] Insurance Assigned Provider 01/12/24 Shreyas Murphy MD [address] [place] [address] Gastroenterology 06/17/24 Doretha Glynn MD [address] [place] [address] Endocrinology 06/17/24 Radha Pereira, RANDI [address] [place] [address] [email or web address] PHCM Security Officers And GuardsExecutive Chef 06/11/25 Additional Source Comments The information contained in this document represents components of the legal health record. It is not the complete legal health record.[facility]
--- OUTSIDE RECORDS SUMMARY | 2025-08-07 10:12 | XMS_ITS | Encounter Summary ---
Author Organization [facility] Address [address] [facility] [address] [place] [address] Phone Care Team Providers Care Refinery Operator Name Role Phone Lester Hicks MD Unavailable [phone] Margaux Montanez MD Unavailable [phone] Johann Hanson EXERCISE SCIENTIST Primary Care Provider [phone] Khang Kilgore MD Unavailable Luis Ignacio DO Unavailable Flo Esteban MD Unavailable [phone] Neisha Pinto RN Unavailable [email or web address] Shreyas Wilson MD Unavailable [phone] Doretha Glynn MD Unavailable [phone] Izzy Hackett Unavailable [email or web address] Radha Pereira RN Unavailable [phone] Encounter Details Date Type Department Care Team (Latest Contact Info) Description 12/22/2022 Transcribe Orders Virtual Department 30 [place] [address] Johann Hanson, EXERCISE SCIENTIST [address] [facility], [address] [place], [place] [phone] [email or web address] Breast screening (Primary Dx) Social History [...] high school, GED, job training, learning the Bruneian language, technical skills, or developing parenting skills)? [...] EST Office Visit [facility] [place] [facility] [address] [place] [address] [place] [address] Johann Hanson, TIFFANIE [address], [address] [place] [address] [email or web address] 09/10/2025 9:00 AM EST Office Visit [facility] 10 [place] [address] Unknown, [place], Shreyas Limon MD [address] [address] 09/21/2025 2:30 PM EST Office Visit [facility] Pulmonary, Allergy and Critical Care Medicine 10 [facility] [place] [address] Lester Hicks MD [address] [address] 10/13/2025 9:20 AM EST Office Visit [facility] [address] [place] [address] Doretha Glynn MD [address] [place] [address] [email or web address] 12/22/2025 8:30 AM EDT Office Visit [address] [place] [address] Johann Hanson, EXERCISE SCIENTIST [address] [place] [address], [address] [place] [address] [email or web address] 06/30/2026 8:00 AM EDT Office Visit [address] [place] [address] Johann Hanson, EXERCISE SCIENTIST [address] [place] [address], [address] [place] [address] [email or web address] documented as of this encounter [...] Months Recommendation: Left Mammography Screening Johann Hanson EXERCISE SCIENTIST IMG MG EXAMS Final Res ult documented [...] documented as of this encounter Care Teams Refinery Operator Relationship Specialty Start Date End Date Johann Hanson CNP [address] [place] [address], [address] [place] [address] PCP - General Family Medicine 02/11/21 Lester Hicks MD [address] [place] [address] Historical LMR Provider 07/28/17 Margaux Montanez MD [address] [facility], [address] [place] [address] [email or web address] Historical LMR Provider 07/28/17 Khang Kilgore MD [address] [place] [address], [address] [place] [address] Insurance Assigned Provider 01/12/24 Luis Ignacio DO [address] [place] [address], [address] [place] [address] Cardiology 06/28/22 06/16/24 Flo Esteban MD [address] [place], [place] [address]D[address] [place] [address] [email or web address] Cardiothoracic Surgery 06/28/22 06/16/24 Neisha Pinto, RANDI [address] [place], [place] [address] [place] [address] [email or web address] PHCM Holter Scanning Technician 02/26/23 06/10/25 Shreyas Wilson MD [address] [place] [address] Gastroenterology 06/17/24 Doretha Glynn MD [address] [place] [address] Endocrinology 06/17/24 Izzy Hackett [address] [place] [address] [email or web address] PHCM Community Modeling Director 09/11/24 09/11/24 Radha Pereira RN [address] [place] [address] PHCM Holter Scanning TechnicianSteward/Stewardess Third Class 06/11/25 documented as of this encounter Additional Source Comments The information contained in this document represents components of the legal health record. It is not the complete legal health record.[facility]
--- OUTSIDE RECORDS SUMMARY | 2025-08-07 10:12 | XMS_ITS | Encounter Summary ---
Author Organization [facility] Address [address] [place] [address] Phone Care Team Providers Care Marketing Communication Manager Name Role Phone Beatriz Donaldson GARMENT TURNER Primary Care Provider [phone] Tricia Balderas DO Unavailable [phone] Lester Hicks MD Unavailable [phone] Margaux Montanez MD Unavailable [phone] Demario Floyd MD Unavailable Pam Benson MD Unavailable [phone] Adithya Campos MINI LAB OPERATOR Unavailable [phone] Beatriz Donaldson GARMENT TURNER Unavailable [phone] Beatriz Donaldson GARMENT TURNER Primary Care Provider [phone] Mamta Whitney DO Primary Care Provider [phone] Mamta Whitney DO Primary Care Provider [phone] Johann Hanson MINI LAB OPERATOR Primary Care Provider Khang Kilgore MD Unavailable Luis Ignacio DO Unavailable Flo Esteban MD Unavailable [phone] Dilan [place]land MD Unavailable [phone] Corby Prdao MD Unavailable [phone] Neisha Pinto RN Unavailable [email or web address] Shreyas Wilson MD Unavailable Doretha Glynn MD Unavailable Izzy Hackett Unavailable sami Radha Pereira RN Unavailable Encounter Details Date Type Department Care Team (Late st Contact Info) Description 09/03/2017 Ancillary Orders [facility] External Provider Virtual Department 30 [place] [address] Beatriz Donaldson, GARMENT TURNER [address] [place] [address] Breast screening Social History Tobacco Use Types [...] Description 08/24/2025 1:30 PM EST Office Visit [facility] [address] [place] [address] Johann Hanson, TIFFANIE [address] [facility], [address] [place] [address] [email or web address] 09/10/2025 9:00 AM EST Office Visit [facility] [address] [place] [phone] Unknown, Unknown, Shreyas Limon MD [address] [place] [id number] 09/21/2025 2:30 PM EST Office Visit [facility] Pulmonary, Allergy and Critical Care Medicine 10 [facility] [place] [address] Lester Hicks MD [address] [place] [address] 10/13/2025 9:20 AM EST Office Visit [facility] [address] [place] [address] [place] [address] Doretha Glynn MD [address] [place] [address] [email or web address] 12/22/2025 8:30 AM EDT Office Visit [address] [place] [address] Johann Hanson, MINI LAB OPERATOR [address] [place] [address], [address] [place] [address] [email or web address] 06/30/2026 8:00 AM EDT Office Visit [address] [place] [address] Johann Hanson, MINI LAB OPERATOR [address] [place] [address], [address] [place] [address] [email or web address] documented as of this encounter [...] There are scattered fibroglandular densities. POS - [id number] Narrative 08/12/2018 12:17 PM EST Full-field digital [...] There are scattered fibroglandular densities. POS - [id number] Beatriz Donaldson NP IMG MG EXAMS Final [...] documented as of this encounter Care Teams Marketing Communication Manager Relationship Specialty Start Date End Date Beatriz Donaldson, GARMENT TURNER PCP - General 07/26/17 10/03/17 Beatriz Donaldson GARMENT TURNER PCP - General Family Medicine 10/04/17 04/11/20 Mamta Whitney DO [address] [place] [address] [email or web address] PCP - General Family Medicine 04/12/20 02/08/21 Mamta Whitney DO [address] [place] [address] [email or web address] PCP - General Family Medicine 02/10/21 02/10/21 Johann Hanson CNP [address] [place] [address] [address] [place] [address] [email or web address] PCP - General Family Medicine 02/11/21 Tricia Balderas DO [address] [place] [address] [email or web address] Historical LMR Provider 07/28/17 10/15/21 Lester Hicks MD [address] [place] [address] [email or web address] Historical LMR Provider 07/28/17 Margaux Montanez MD [address] [place] [address], [address] [place] [address] Historical LMR Provider 07/28/17 Demario Floyd MD [address] [place] [address] [email or web address] Historical LMR Provider 07/28/17 10/15/21 Pam Benson MD [address] [place] [address] [email or web address] Historical LMR Provider 07/28/17 10/15/21 Adithya Campos MINI LAB OPERATOR [address] [place] [address] [email or web address] Historical LMR Provider 07/28/17 12/25/21 Beatriz Donaldson NP [address] [place] [address] Historical LMR Provider 07/28/17 04/11/20 Khang Kilgore MD [address] [place] [address], [address] [place] [address] [email or web address] Insurance Assigned Provider 01/12/24 Luis Ignacio DO [address] [place] [address], [address] [place] [address] Cardiology 06/28/22 06/16/24 Flo Esteban MD [address] [place] [address] FND-7 [place] [address] [email or web address] [email or web address] Surgery 06/28/22 06/16/24 Dilan [place] MD [address] [place] [address], [address] [place] [address] [email or web address] Insurance Assigned Provider 07/15/22 08/13/22 Corby Prado MD [address] [place] [address], [address] [place] [address] [email or web address] Insurance Assigned Provider 08/13/22 09/16/22 Neisha Pinto RN [address] [place] [address], [address] [place] [address] [email or web address] PHCM Chemical Pathologist 02/26/23 06/10/25 Shreyas Wilson MD [address] [place] [address] [email or web address] Gastroenterology 06/17/24 Doretha Glynn MD [address] [place] [address] 3rd [place] [address] [email or web address] Endocrinology 06/17/24 Izzy Hackett [address] [place] [address] [email or web address] PHCM Community Electronics Tester 09/11/24 09/11/24 Radha Pereira, RN [address] [place] [address] [email or web address] PHCM Chemical PathologistClerical Transcriber 06/11/25 documented as of this encounter Additional Source Comments The information contained in this document represents components of the legal health record. It is not the complete legal health record.[facility]
--- OUTSIDE RECORDS SUMMARY | 2025-08-07 10:12 | XMS_ITS | Encounter Summary ---
Author Organization [facility] Address [address] [place] [address] Phone Care Team Providers Care Wig Maker Name Role Phone Lester Hicks MD Unavailable [phone] Margaux Montanez MD Unavailable Johann Hanson CNP Primary Care Provider [phone] Khang Kilgore MD Unavailable [phone] Luis Ignacio DO Unavailable [phone] Flo Esteban MD Unavailable [phone] Neisha Pinto RN Unavailable [email or web address] Shreyas Wilson MD Unavailable Doretha Glynn MD Unavailable [phone] Izzy Hackett Unavailable [email or web address] Radha Pereira RN Unavailable [phone] Encounter Details Date Type Department Care Team (Late st Contact Info) Description 12/13/2022 Procedure Pass [facility] Cardiovascular And Interventional Radiology 30 [place], [place] [phone] Social History Tobacco Use Types Packs/Day Years [...] high school, GED, job training, learning the Peruvian language, technical skills, or developing parenting skills)? [...] Description 08/24/2025 1:30 PM EST Office Visit [facility] [place] [facility] [address] [place] [address] Johann Hanson, TIFFANIE [address] [facility], [address] [place] [address] [email or web address] 09/10/2025 9:00 AM EST Office Visit [facility] 10 [place] [address] Unknown, Unknown, Shreyas Limon MD [address] [facility] 2 [place] [address] 09/21/2025 2:30 PM EST Office Visit [facility] Pulmonary, Allergy and Critical Care Medicine 10 [facility] [place] [address] Lester Hicks MD [address] [place] [address] 10/13/2025 9:20 AM EST Office Visit [facility] [address] [place] [address] [place] [address] Doretha Glynn MD [address] [place] [address] [email or web address] 12/22/2025 8:30 AM EDT Office Visit [address] [place] [address] Johann Hanson, CLINICAL STATISTICS MANAGER [address] [place] [address], [address] [place] [address] [email or web address] 06/30/2026 8:00 AM EDT Office Visit [address] [place] [address] Johann Hanson, CLINICAL STATISTICS MANAGER [address] [place] [address], [address] [place] [address] [email or web address] documented as of this encounter Visit Diagnoses Not on filedocumented in this encounter Additional Health Concerns Infection Onset Date Last Indicated Resolved Time COVID-19 10/07/2023 10/07/2023 10/28/2023 1:21 AM EST Assessment Noted Time PHQ-2 Depression Total Score: 0 05/15/20 1:45 PM EDT documented as of this encounter Care Teams Wig Maker Relationship Specialty Start Date End Date ValentinJohann TIFFANIE [address] [place] [address], [address] [place] [address] PCP - General Family Medicine 02/11/21 Lester Hicks MD [address] [place] [address] 2nd [place] [address] [email or web address] Historical LMR Provider 07/28/17 Margaux Montanez MD [address] [place] [address], [address] [place] [address] [email or web address] Historical LMR Provider 07/28/17 Khang Kilgore MD [address] [place] [address], [address] [place] [address] [email or web address] Insurance Assigned Provider 01/12/24 Luis Ignacio DO [address] [place] [address], [address] [place] [address] Cardiology 06/28/22 06/16/24 Flo Esteban MD [address] [place] [address]-[address] [place] [address] [email or web address] Cardiothoracic Surgery 06/28/22 06/16/24 Neisha Pinto RN [address] [place], [place] [address] [place] [address] [email or web address] PHCM Glass Loading Equipment Tender 02/26/23 06/10/25 Shreyas Wilson MD [address] [place] [address] Gastroenterology 06/17/24 Doretha Glynn MD [address] [place] [address] Endocrinology 06/17/24 Izzy Hackett [address] [place] [address] [email or web address] PHCM Community Emergency Room Technician 09/11/24 09/11/24 Radha Pereira, RN [address] [place] [address] [email or web address] PHCM Glass Loading Equipment TenderEditor Managing Director 06/11/25 documented as of this encounter Additional Source Comments The information contained in this document represents components of the legal health record. It is not the complete legal health record.[facility]
--- OUTSIDE RECORDS SUMMARY | 2025-08-07 10:12 | XMS_ITS | Encounter Summary ---
Author Organization [facility] Address [address] [place] [address] Phone Care Team Providers Care Transportation Security Officer Name Role Phone Lester Hicks MD Unavailable [phone] Margaux Montanez MD Unavailable Johann Hanson CNP Primary Care Provider [phone] Khang Kilgore MD Unavailable [phone] Luis Ignacio DO Unavailable [phone] Flo Esteban MD Unavailable [phone] Neisha Pinto RN Unavailable [email or web address] Shreyas Wilson MD Unavailable Doretha Glynn MD Unavailable [phone] Izzy Hackett Unavailable [email or web address] Radha Pereira RN Unavailable [phone] Encounter Details Date Type Department Care Team (Latest Contact Info) Description 12/28/2023 Transcribe Orders Virtual Department 30 [place] [address] Shreyas Wilson MD [address] [place] [address] [phone] Dysphagia, unspecified type (Primary Dx); Nausea and [...] high school, GED, job training, learning the Libyan language, technical skills, or developing parenting skills)? [...] Description 08/24/2025 1:30 PM EST Office Visit [address] [place] [address] Johann Hanson, PROGRAM ADMIN [address] [place] [address], [address] [place] [address] [email or web address] 09/10/2025 9:00 AM EST Office Visit [facility] Gastroenterology Clinic 10 [place] [address] Unknown, Unknown, Shreyas Limon MD [address] [place] [address] 09/21/2025 2:30 PM EST Office Visit [facility] Pulmonary, Allergy and Critical Care Medicine 10 [place] [address] Lester Hicks MD [address] [place] [address] 10/13/2025 9:20 AM EST Office Visit [facility] [address] [place] [address] [place] [address] Doretha Glynn MD [address] [place] [address] [email or web address] 12/22/2025 8:30 AM EDT Office Visit [address] [place] [address] Johann Hanson, PROGRAM ADMIN [address] [place] [address], [address] [place] [address] [email or web address] 06/30/2026 8:00 AM EDT Office Visit [facility] [address] [place] [address] Johann Hanson, PROGRAM ADMIN [address], [address] [place] [address] [email or web address] documented as of this encounter [...] documented as of this encounter Care Teams Transportation Security Officer Relationship Specialty Start Date End Date Johann Hanson CNP [address] [place] [address], [address] [place] [address] PCP - General Family Medicine 02/11/21 Lester Hicks MD [address] [place] [address] Historical LMR Provider 07/28/17 Margaux Montanez MD [address] [place] [address], [address] [place] [address] [email or web address] Historical LMR Provider 07/28/17 Khang Kilgore MD [address] [place] [address], [address] [place] [address] Insurance Assigned Provider 01/12/24 Luis Ignacio DO [address] [place] [address], [address] [place] [address] Cardiology 06/28/22 06/16/24 Flo Esteban MD [address] [place], [place] [address]D-7 [place] [address] [email or web address] Cardiothoracic Surgery 06/28/22 06/16/24 Neisha Pinto, RANDI [address] [place] [address] [address] [place] [address] [email or web address] PHCM Heavy Equipment Operator/Paver 02/26/23 06/10/25 Shreyas Wilson MD [address] [place] [address] Gastroenterology 06/17/24 Doretha Glynn MD [address] [place] [address] Endocrinology 06/17/24 Izzy Hackett [address] [place] [address] [email or web address] PHC Community Coal Shooter 09/11/24 09/11/24 Radha Pereira RN [address] [place] [address] PHC Heavy Equipment Operator/PaverRubber Molder 06/11/25 documented as of this encounter Additional Source Comments The information contained in this document represents components of the legal health record. It is not the complete legal health record.[facility]
--- OUTSIDE RECORDS SUMMARY | 2025-08-07 10:12 | XMS_ITS | Encounter Summary ---
Author Organization [facility] Address [address] [place] [address] [place] [address] Phone Care Team Providers Care Talk Show Host Name Role Phone Tricia Balderas DO Unavailable Lester Hicks MD Unavailable [phone] Margaux Montanez MD Unavailable Demario Floyd MD Unavailable Pam Benson MD Unavailable [phone] Adithya Campos REGIONAL FLATBED TRUCK DRIVER Unavailable Beatriz Donaldson ANIMAL TRAINER Unavailable Beatriz Donaldson ANIMAL TRAINER Primary Care Provider Mamta Whitney DO Primary Care Provider [phone] Mamta Whitney DO Primary Care Provider [phone] Johann Hanson REGIONAL FLATBED TRUCK DRIVER Primary Care Provider [phone] Khang Kilgore MD Unavailable Luis Ignacio DO Unavailable Flo Esteban MD Unavailable [phone] Dilan Rowland MD Unavailable [phone] Corby Prado MD Unavailable [phone] Neisha Pinto RN Unavailable [email or web address] Shreyas Wilson MD Unavailable [phone] Doretha Glynn MD Unavailable [phone] Izzy Hackett Unavailable sami Radha Pereira RN Unavailable [phone] Encounter Details Date Type Department Care Team (Late st Contact Info) Description 06/21/2018 Transcribe Orders [facility] Specimen Processing [address] [place] [address] Beatriz Donaldson, EARL [address] [place] [address] Routine general medical examination at a health care facility (Primary Dx); Sjogren's syndrome with lung involvement; Inflammatory arthritis; 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, jail, current use Social History Tobacco Use Types [...] Department Care Team (Late Contact Info) Description 08/24/2025 1:30 PM EST Office Visit [facility] [address] [address] Johann Hanson, TIFFANIE 22 [facility], [address] [place] [address] [email or web address] 09/10/2025 9:00 AM EST Office Visit [facility] [address] [place] [address] Unknown, Unknown, Shreyas Limon MD [address] [place] [address] 2 [place] [address] 09/21/2025 2:30 PM EST Office [place] [facility] [place], Allergy and Critical Care Medicine 10 [facility] [place] [address] Lester Hicks MD [address] [place] [address] 2nd [place] [address] 10/13/2025 9:20 AM EST Office Visit [facility] [address] [place] [address] [place] [address] Doretha Glynn MD [address] [place] [address] [email or web address] 12/22/2025 8:30 AM EDT Office Visit [address] [place] [address] Johann Hanson, REGIONAL FLATBED TRUCK DRIVER [address] [place] [address], [address] [place] [address] [email or web address] 06/30/2026 8:00 AM EDT Office Visit [address] [place] [address] Johann Hanson, REGIONAL FLATBED TRUCK DRIVER [address] [place] [address], [address] [place] [address] [email or web address] documented as of this encounter Procedures Procedure Name Priority Date/Time Associated Diagnosis Comments IRON Routine 06/21/2018 4:35 PM EDT Routine general medical examination at a health care facility COMPREHENSIVE METABOLIC PANEL Routine 06/21/2018 4:35 PM EDT Sjogren's syndrome with lung involvement Inflammatory arthritis 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, scrummaster, current use SEDIMENTATION RATE (ESR) Routine 06/21/2018 4:35 PM EDT Sjogren's syndrome with lung involvement Inflammatory arthritis 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, jail, current use CBC AND DIFFERENTIAL Routine 06/21/2018 4:35 PM EDT Sjogren's syndrome with lung involvement Inflammatory arthritis 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, scrummaster, current use COMPLEMENT C3 Routine 06/21/2018 4:35 PM EDT Sjogren's syndrome with lung involvement Inflammatory arthritis 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, jail, current use COMPLEMENT C4 Routine 06/21/2018 4:35 PM EDT Sjogren's syndrome with lung involvement Inflammatory arthritis 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, jail, current use C-REACTIVE PROTEIN Routine 06/21/2018 4: 35 PM EDT Sjogren's syndrome with lung involvement Inflammatory arthritis 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, scrummaster, current use TSH Routine 06/21/2018 4:35 PM EDT Routine general medical examination at a health care facility FERRITIN Routine 06/21/2018 4:35 PM EDT Routine general medical examination at a health care facility documented in this encounter Results * Complement C4 (06/21/2018 4:35 PM EDT) COMPLEMENT C4 23 14 - 40 mg/dL [facility] DPT OF LAB MED AND PAT+ Blood 06/21/2018 4:35 PM EDT 06/22/2018 1:28 PM EDT us Margaux Montanez MD LAB BLOOD ORDERABLES Fin al Result [facility] DPT OF LAB MED AND PAT+ [address] [place] [address] * Complement C3 (06/21/2018 4:35 PM EDT) COMPLEMENT C3 116 75 - 175 mg/dL [facility] DPT OF LAB MED AND PAT+ Blood 06/21/2018 4:35 PM EDT 06/22/2018 1:28 PM EDT us Margaux Montanez MD LAB BLOOD ORDERABLES Fin al Result [facility] DPT OF LAB MED AND PAT+ [address] [place] [address] * Sedimentation rate (ESR) (06/21/2018 4:35 PM EDT) ESR 4 0 - 30 mm/h [facility] Blood 06/21/2018 4:35 PM EDT 06/21/2018 5:56 PM EDT us Margaux Montanez MD LAB BLOOD ORDERABLES Fin al Result Performing Organization Address [facility]/ZIP Co de Phone Number [address] [address] * C-Reactive Protein (06/21/2018 4:35 PM EDT) C REACTIVE PROTEIN 0.5 0.0 - 4.0 mg/L [facility] Blood 06/21/2018 4:35 PM EDT 06/21/2018 5:56 PM EDT us Margaux Montanez MD LAB BLOOD ORDERABLES Fin al Result Performing Organization Address City/[facility]/ZIP Co de Phone Number [address] [address] * Comprehensive metabolic panel (06/21/2018 4:35 PM EDT) SODIUM 144 133 - 146 mmol/L [facility] POTASSIUM 3.6 3.3 - 5.1 mmol/L [facility] CHLORIDE 100 96 - 108 mmol/L [facility] CO2 30 21 - 35 mmol/L [facility] BUN 13 6 - 19 mg/dL [facility] CREATININE 0.70 0.5 - 1.5 mg/dL [facility] GLUCOSE 89 70 - 99 mg/dL [facility] ALBUMIN 4.3 3.9 - 4.8 g/dL [facility] TOTAL PROTEIN 6.7 6.5 - 8.0 g/dL [facility] CALCIUM 9.9 8.4 - 10.3 mg/dL [facility] ALKALINE PHOSPHATASE 59 39 - 117 U/L [facility] TOTAL BILIRUBIN 0.2 0.0 - 1.2 mg/dL [facility] AST 22 0 - 37 U/L [facility] ALT 16 0 - 40 U/L [facility] GLOBULIN 2.4 1 - 4.8 g/dL [facility] EGFR 97 >59 mL/min/1.7 3m2 [facility] Comment:If patient is black, multiply result by 1.159. Estimated glomerular filtration rate calculated using the CKD-EPI equation. ANION GAP 18 10 - 20 mmol/L [facility] Blood 06/21/2018 4:35 PM EDT 06/21/2018 5:56 PM EDT us Margaux Montanez MD LAB BLOOD ORDERABLES Fin al Result [facility] [address] [place], [place] [id number] * CBC and differential (06/21/2018 4:35 PM EDT) WBC 5.00 3.40 - 11.20 K/uL [facility] RBC 4.23 3.80 - 4.80 M/uL [facility] HGB 13.2 12.0 - 15.0 g/dL [facility] HCT 39.5 36.0 - 46.0 % [facility] PLT 229 130 - 400 K/uL [facility] MCV 93.4 79.0 - 98.0 fL [facility] MCH 31.2 27.0 - 34.8 pg [facility] MCHC 33.4 31.5 - 36.0 g/dL [facility] RDW 12.9 10.8 - 14.6 % [facility] MPV 10.5 9.4 - 12.4 fl [facility] NRBC 0.00 /100 WBCs [facility] ABSOLUTE NRBC 0.00 K/uL [facility] DIFF METHOD Auto [facility] NEUTS 53.8 45.30 - 77.70 % [facility] LYMPHS 34.4 12.30 - 39.70 % [facility] MONOS 8.2 4.10 - 12.80 % [facility] EOS 2.6 0 - 7.2 % [facility] BASOS 0.8 0 - 2.80 % [facility] Granulocytes, immature (%) 0.2 0.0 - 0.9 % [facility] ABSOLUTE NEUTS 2.69 1.40 - 7.70 K/uL [facility] ABSOLUTE LYMPHS 1.72 0.60 - 3.20 K/uL [facility] ABSOLUTE MONOS 0.41 0.11 - 0.59 K/uL [facility] ABSOLUTE EOS 0.13 0.01 - 0.50 K/uL [facility] ABSOLUTE BASOS 0.04 0.00 - 0.08 K/uL [facility] Granulocytes, immature 0.01 0.00 - 0.05 K/uL [facility] Blood 06/21/2018 4:35 PM EDT 06/21/2018 5:56 PM EDT us Margaux Montanez MD LAB BLOOD ORDERABLES Fin al Result [address] [address] * Ferritin (06/21/2018 4:35 PM EDT) FERRITIN 43 13 - 150 ug/L [facility] Blood 06/21/2018 4:35 PM EDT 06/21/2018 5:56 PM EDT us Beatriz Donaldson NP LAB BLOOD ORDERABLES Final R esult [address] [address] * Iron (06/21/2018 4:35 PM EDT) IRON 64 30 - 160 ug/dL [facility] Blood 06/21/2018 4:35 PM EDT 06/21/2018 5:56 PM EDT us Beatriz Donaldson ANIMAL TRAINER LAB BLOOD ORDERABLES Final R esult Performing Organization Address City/[facility]/ZIP Co de Phone Number [address] [address] * (ABNORMAL) TSH (06/21/2018 4:35 PM EDT) TSH 0.04(L) 0.27 - 4.20 uIU/mL [facility] Blood 06/21/2018 4:35 PM EDT 06/21/2018 5:56 PM EDT us Beatriz Donaldson ANIMAL TRAINER LAB BLOOD ORDERABLES Final R esult Performing Organization Address City/[facility]/ZIP Co de Phone Number [address] [address] documented in this encounter Visit Diagnoses Diagnosis Routine general medical examination at a health care facility- Primary Sjogren's syndrome with lung involvement Inflammatory arthritis Unspecified inflammatory polyarthropathy 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, jail, current use documented in this encounter Additional Health Concerns Infection Onset Date Last Indicated Resolved Time CoV-Presumed 05/27/2022 05/27/2022 06/17/2022 1:21 AM EDT CoV-Presumed Comment:COVID-19 Added 10/12/2022 10/12/2022 10/13/2022 6:26 P M EST COVID-19 10/13/2022 10/13/2022 11/03/2022 1:21 AM EST COVID-19 10/07/2023 10/07/2023 10/28/2023 1:21 AM EST documented as of this encounter Care Teams Talk Show Host Relationship Specialty Start Date End Date Beatriz Donaldson, EARL [address] [place] [address] PCP - General Family Medicine 10/04/17 04/11/20 Mamta Whitney DO [address] [place] [address] [email or web address] PCP - General Family Medicine 04/12/20 02/08/21 Mamta Whitney DO [address] [place] [address] [email or web address] PCP - General Family Medicine 02/10/21 02/10/21 Johann Hanson CNP [address] [place] [address], [address] [place] [address] [email or web address] PCP - General Family Medicine 02/11/21 Tricia Balderas DO [address] [place] [address] [email or web address] Historical LMR Provider 07/28/17 10/15/21 Lester Hicks MD [address] [place] [address] [email or web address] Historical LMR Provider 07/28/17 Margaux Montanez MD [address] [place] [address], [address] [place] [address] [email or web address] Historical LMR Provider 07/28/17 Demario Floyd MD [address] [place] [address] [email or web address] Historical LMR Provider 07/28/17 10/15/21 Pam Benson MD [address] [place] [address], [address] [place] [address] Historical LMR Provider 07/28/17 10/15/21 Adithya Campos, REGIONAL FLATBED TRUCK DRIVER [address] [place] [address] Historical LMR Provider 07/28/17 12/25/21 Beatriz Donaldson NP [address] [place] [address] Historical LMR Provider 07/28/17 04/11/20 Khang Kilgore MD [address] [place] [address], [address] [place] [address] [email or web address] Insurance Assigned Provider 01/12/24 Luis Ignacio DO [address] [place] [address], [address] [place] [address] Cardiology 06/28/22 06/16/24 Flo Esteban MD [address] [place] [address] [email or web address] Cardiothoracic Surgery 06/28/22 06/16/24 Dilan Rowland MD [address] [place] [address], [address] [place] [address] Insurance Assigned Provider 07/15/22 08/13/22 Corby Prado MD [address] [place] [address], [address] [place] [address] [email or web address] Insurance Assigned Provider 08/13/22 09/16/22 Neisha Pinto RN 22 [facility], [address] [place] [address] [email or web address] PHCM Lodge Attendant 02/26/23 06/10/25 Shreyas Wilson MD [address] [place] [address] Gastroenterology 06/17/24 Doretha Glynn MD [address] [place] [address] [address] [place] [address] Endocrinology 06/17/24 Izzy Hackett [address] [place] [address] [email or web address] PHCM Community Matrix Supervisor 09/11/24 09/11/24 Radha Pereira, RANDI [address] [place] [address] [email or web address] PHCM Lodge AttendantFinancial Services Specialist 06/11/25 documented as of this encounter Additional Source Comments The information contained in this document represents components of the legal health record. It is not the complete legal health record.[facility]
--- OUTSIDE RECORDS SUMMARY | 2025-08-07 10:12 | XMS_ITS | Encounter Summary ---
Author Organization [facility] Address [address] [place] [address] Phone Care Team Providers Care Harmonica Maker Name Role Phone Lester Hicks MD Unavailable [phone] Margaux Montanez MD Unavailable Johann Hanson CNP Primary Care Provider [phone] Khang Kilgore MD Unavailable Luis Ignacio DO Unavailable Flo Esteban MD Unavailable [phone] Neisha Pinto RN Unavailable [email or web address] Shreyas Wilson MD Unavailable Doretha Glynn MD Unavailable [phone] Izzy Hackett Unavailable [email or web address] Radha Pereira RN Unavailable Encounter Details Date Type Department Care Team (Late st Contact Info) Description 12/07/2022 Procedure Pass [facility] Echo Lab [address] [place], [place] [id number] Social History Tobacco Use Types Packs/Day Years [...] high school, GED, job training, learning the Thai language, technical skills, or developing parenting skills)? [...] 12/07/2022 9:18 AM Alise Hamilton, RN * [place] Suicide Severity Rating Scale (Screener/Recent Self-Report) Question [...] Description 08/24/2025 1:30 PM EST Office Visit [address] [place] [address] Johann Hanson CNP [address] [place] [address], [address] [place] [address] [email or web address] 09/10/2025 9:00 AM EST Office Visit [facility] Gastroenterology Clinic [address] [place] [address] Unknown, Unknown, Shreyas Limon MD [address] [address] 09/21/2025 2:30 PM EST Office Visit [facility] Pulmonary, Allergy and Critical Care Medicine 10 [place] [address] Lester Hicks MD [address] [place] [address] 2[address] [place] [address] 10/13/2025 9:20 AM EST Office Visit [facility] Endocrinology [address] [place] [address] [place] [address] Doretha Glynn MD [address] [place] [address] 3[address] [place] [address] [email or web address] 12/22/2025 8:30 AM EDT Office Visit [address] [place] [address] Johann Hanson CNP [address] [place] [address], [address] [place] [address] [email or web address] 06/30/2026 8:00 AM EDT Office Visit [facility] [address] [place] [address] Johann Hanson CNP 22 [facility], [address] [place] [address] [email or web address] documented as of this encounter Visit Diagnoses Not on filedocumented in this encounter Additional Health Concerns Infection Onset Date Last Indicated Resolved Time COVID-19 10/07/2023 10/07/2023 10/28/2023 1:21 AM EST Assessment Noted Time PHQ-2 Depression Total Score: 0 05/15/20 1:45 PM EDT documented as of this encounter Care Teams Harmonica Maker Relationship Specialty Start Date End Date Johann Hanson CNP [address] [place] [address], [address] [place] [address] PCP - General Family Medicine 02/11/21 Lester Hicks MD [address] [place] [address] Historical LMR Provider 07/28/17 Margaux Montanez MD [address] [place] [address], [address] [place] [address] [email or web address] Historical LMR Provider 07/28/17 Khang Kilgore MD [address] [place] [address], [address] [place] [address] Insurance Assigned Provider 01/12/24 Luis Ignacio DO [address] [place] [address], [address] [place] [address] Cardiology 06/28/22 06/16/24 Flo Esteban MD [address] [place] [address] [email or web address] Cardiothoracic Surgery 06/28/22 06/16/24 Neisha Pinto RN [address] [place] [address] [email or web address] Coffee Attendant 02/26/23 06/10/25 Shreyas Wilson MD [address] [place] [address] Gastroenterology 06/17/24 Doretha Glynn MD [address] [place] [address] Endocrinology 06/17/24 Izzy Hackett [address] [place] [address] [email or web address] PHC Community Vascular Neurologist 09/11/24 09/11/24 Radha Pereira RN [address] [place] [address] PHCM Coffee AttendantProsthodontist 06/11/25 documented as of this encounter Additional Source Comments The information contained in this document represents components of the legal health record. It is not the complete legal health record.[facility]
--- OUTSIDE RECORDS SUMMARY | 2025-08-07 10:12 | XMS_ITS | Encounter Summary ---
Author Organization [facility] Address [address] [place] [address] [place] [address] Phone Care Team Providers Care Deployment Engineer Name Role Phone Tricia Balderas DO Unavailable Lester Hicks MD Unavailable [phone] Margaux Montanez MD Unavailable Demario Floyd MD Unavailable Pam Benson MD Unavailable Adithya Campos EARLY BREASTFEEDING CARE SPECIALIST Unavailable Mamta Whitney DO Primary Care Provider [phone] Mamta Whitney DO Primary Care Provider [phone] Johann Hanson EARLY BREASTFEEDING CARE SPECIALIST Primary Care Provider [phone] Khang Kilgore MD Unavailable Luis Ignacio DO Unavailable Flo Esteban MD Unavailable [phone] Dilan Rowland MD Unavailable Corby Prado MD Unavailable [phone] Neisha Pinto RN Unavailable [email or web address] Shreyas Wilson MD Unavailable Doretha Glynn MD Unavailable [phone] Izzy Hackett Unavailable sami Radha Pereira RN Unavailable Encounter Details Date Type Department Care Team (Latest Contact Info) Description 04/14/2020 Transcribe Orders [facility] 10 [facility] 2nd [place] [address] Alise Winkler PA-C [address] [facility] [address] [place] [address] Fatigue, unspecified type (Primary Dx); Diarrhea, unspecified [...] Description 08/24/2025 1:30 PM EST Office Visit [address] [address] Johann Hanson, TIFFANIE [address] [place] [address], [address] [place] [address] [email or web address] 09/10/2025 9:00 AM EST Office Visit [facility] 10 [place] [address] Unknown, Unknown, Shreyas Limon MD 10 [facility] 2 [place] [address] 09/21/2025 2:30 PM EST Office Visit [facility] Pulmonary, Allergy and Critical Care Medicine 10 [facility] [place] [address] Lester Hicks MD [address] [place] [address] 10/13/2025 9:20 AM EST Office Visit [facility] [address] [place] [address] [place] [address] Doretha Glynn MD [address] [place] [address] [email or web address] 12/22/2025 8:30 AM EDT Office Visit [address] [place] [address] Johann Hanson, EARLY BREASTFEEDING CARE SPECIALIST [address] [place] [address], [address] [place] [address] [email or web address] 06/30/2026 8:00 AM EDT Office Visit [address] [place] [address] Johann Hanson, EARLY BREASTFEEDING CARE SPECIALIST [address] [place] [address], [address] [place] [address] [email or web address] documented as of this encounter Results * Giardia antigen screen (04/15/2020 4:18 PM EDT) [facility] GIARDIA ANTIGEN Negative Negative [facility] DPT OF LAB MED AND PAT+ Comment: (NOTE) ADDITIONAL INFORMATION Test Performed by Enzyme Immunoassay. Stool (Stool) 04/15/2020 4:1 8 PM EDT 04/15/2020 4:24 PM EDT us Alise Winkler PA-C MICROBIOLOGY - GENERAL ORDERABL ES Final Result Performing Organization Address City/[facility] Co de Phone Number [facility] DPT OF LAB MED AND PAT+ [address] [place] [address] * Ova and parasites, stool (04/15/2020 8:00 AM EDT) Special Requests None 04/15/2020 4:19 PM EDT [facility] DIRECT EXAM NO PARASITES FOUND BY DIRECT OR CONCENTRATION METHODS 04/26/2020 10:47 AM EDT [facility] DIRECT EXAM No parasites found by Trichrome Stain 04/26/2020 10:47 AM EDT [facility] Stool (Stool) 04/15/2020 8:0 0 AM EDT 04/15/2020 4:24 PM EDT us Alise Winkler PA-C MICROBIOLOGY - GENERAL ORDERABL ES Final Result Performing Organization Address [facility] Co de Phone Number [address] [address] * Fecal immunochemical test x1 (FIT) (04/15/2020 8:00 AM EDT) [facility] Immuno Fecal Occult Negative [facility] Stool (Stool) 04/15/2020 8:0 0 AM EDT 04/15/2020 4:23 PM EDT Alise Winkler PA-C BODY FLUIDS AND STOOLS ORDERABL ES Final Result Performing Organization Address [facility] de Phone Number [address] [address] * Fecal leukocyte examination (04/15/2020 8:00 AM EDT) Special Requests None 04/15/2020 4:19 PM EDT [facility] GRAM STAIN No WBC seen on smear. 04/16/2020 8:47 AM EDT [facility] Stool (Stool) 04/15/2020 8:0 0 AM EDT 04/15/2020 4:24 PM EDT us Alise Winkler PA-C MICROBIOLOGY - GENERAL ORDERABL ES Final Result Performing Organization Address [facility] Co de Phone Number [address] [address] * Stool culture (04/15/2020 8:00 AM EDT) Special Requests None 04/15/2020 4:19 PM EDT [facility] Stool Culture NO SALMONELLA, SHIGELLA OR CAMPYLOBACTER ISOLATED 04/16/2020 8:09 AM EDT [facility] Stool (Stool) 04/15/2020 8:0 0 AM EDT 04/15/2020 4:24 PM EDT us Alise Winkler PA-C MICROBIOLOGY - GENERAL ORDERABL ES Final Result Performing Organization Address [facility] de Phone Number [address] [address] * Immunoglobulin A (04/14/2020 12:05 PM EDT) IgA 84 70 - 400 mg/dL [facility] Blood 04/14/2020 12:0 5 PM EDT 04/14/2020 12:23 PM EDT us Alise Winkler PA-C LAB BLOOD ORDERABLES Final Resu lt Performing Organization Address [facility] Co de Phone Number [address] [address] * Tissue transglutaminase IgA (04/14/2020 12:05 PM EDT) TTG IGA ANTIBODY <1.2 <4.0 (Negative) U/mL [facility] Blood 04/14/2020 12:0 5 PM EDT 04/14/2020 12:22 PM EDT us Alise Winkler PA-C LAB BLOOD ORDERABLES Final Resu lt [facility] [address] [place] [address] documented in this encounter Visit Diagnoses Diagnosis [...] documented as of this encounter Care Teams Deployment Engineer Relationship Specialty Start Date End Date Mamta Whitney DO [address] [place] [address] [email or web address] PCP - General Family Medicine 04/12/20 02/08/21 Mamta Whitney DO [address] [place] [address] [email or web address] PCP - General Family Medicine 02/10/21 02/10/21 Johann Hanson CNP [address] [place] [address], [address] [place] [address] [email or web address] PCP - General Family Medicine 02/11/21 Tricia Balderas DO [address] [place] [place] [address] [email or web address] Historical LMR Provider 07/28/17 10/15/21 Lester Hicks MD [address] [place] [address] [email or web address] Historical LMR Provider 07/28/17 Margaux Montanez MD 22 [facility], [address] [place] [address] [email or web address] Historical LMR Provider 07/28/17 Demario Floyd MD [address] [place] [address] [email or web address] Historical LMR Provider 07/28/17 2 Pam Benson MD [address] [place] [address], [address] [place] [address] Historical LMR Provider 07/28/17 Adithya Campos, EARLY BREASTFEEDING CARE SPECIALIST [address] [place] [address], [address] [place] [address] [email or web address] Historical LMR Provider 07/28/17 12/25/21 Khang Kilgore MD [address] [place] [address], [address] [place] [address] Insurance Assigned Provider 01/12/24 Luis Ignacio DO [address] [place] [address], [address] [place] [address] Cardiology 06/28/22 06/16/24 Flo Esteban MD [address] [place] [address] [email or web address] Cardiothoracic Surgery 06/28/22 06/16/24 Dilan Rowland MD [address] [place] [address], [address] [place] [address] Insurance Assigned Provider 07/15/22 08/13/22 Corby Prado MD [address] [place] [address], [address] [place] [address] Insurance Assigned Provider 08/13/22 09/16/22 Neisha Pinto RN [address] [place] [address], [address] [place] [address] [email or web address] PHCM Sheet Metal Assembler And Riveter 02/26/23 06/10/25 Shreyas Wilson MD [address] [place] [address] Gastroenterology 06/17/24 Doretha Glynn MD [address] [place] [address] 3[address] [place] [address] Endocrinology 06/17/24 Izzy Hackett [address] [place] [address] [email or web address] PHCM Community Weed Inspector 09/11/24 09/11/24 Radha Pereira, RN [address] [place] [address] PHCM Sheet Metal Assembler And RiveterInterface Analyst 06/11/25 documented as of this encounter Additional Source Comments The information contained in this document represents components of the legal health record. It is not the complete legal health record.[facility]
--- OUTSIDE RECORDS SUMMARY | 2025-08-07 10:12 | XMS_ITS | Encounter Summary ---
Author Organization [facility] Address [address] [place] [address] [place] [address] Phone Care Team Providers Care Unemployment Examiner Name Role Phone Lester Hicks MD Unavailable [phone] Margaux Montanez MD Unavailable Johann Hanson CNP Primary Care Provider [phone] Khang Kilgore MD Unavailable [phone] Luis Ignacio DO Unavailable Flo Esteban MD Unavailable [phone] Dilan Rowland MD Unavailable [phone] Corby Prado MD Unavailable [phone] Neisha Pinto RN Unavailable [email or web address] Shreyas Wilson MD Unavailable Doretha Glynn MD Unavailable [phone] Izzy Hackett Unavailable [email or web address] Radha Pereira RN Unavailable [phone] Encounter Details Date Type Department Care Team (Late st Contact Info) Description 02/10/2022 Procedure Pass Non-Invasive Cardiology [address] [place], [place] [id number] Social History Tobacco Use Types Packs/Day Years [...] EST Office Visit [facility] [place] [facility] [address] [place] [address] [place] [address] Johann Hanson, TIFFANIE [facility] [place] [address] [email or web address] 09/10/2025 9:00 AM EST Office Visit [facility]astroenterology Clinic 10 [place] [address] Unknown, Unknown, Shreyas Limon MD 10 [facility] [address] [place] [address] 09/21/2025 2:30 PM EST Office Visit [facility] Pulmonary, Allergy and Critical Care Medicine 10 [facility] [place] [address] Lester Hicks MD 10 [facility] 2nd [place] [address] 10/13/2025 9:20 AM EST Office Visit [facility] [address] [place] [address] [place] [address] Doretha Glynn MD [address] [place] [address] [email or web address] 12/22/2025 8:30 AM EDT Office Visit [address] [place] [address] Johann Hanson, COPY AND PRINT ASSOCIATE [address] [place] [address], [address] [place] [address] [email or web address] 06/30/2026 8:00 AM EDT Office Visit [address] [place] [address] Johann Hanson, COPY AND PRINT ASSOCIATE [address] [place] [address], [address] [place] [address] [email or web address] documented as of this encounter [...] documented as of this encounter Care Teams Unemployment Examiner Relationship Specialty Start Date End Date Johann Hanson CNP [address] [place] [address], [address] [place] [address] PCP - General Family Medicine 02/11/21 Lester Hicks MD [address] [place] [address] Historical LMR Provider 07/28/17 Margaux Montanez MD [address] [place] [address], [address] [place] [address] [email or web address] Historical LMR Provider 07/28/17 Khang Kilgore MD [address] [place] [address], [address] [place] [address] Insurance Assigned Provider 01/12/24 Luis Ignacio DO [address] [place] [address], [address] [place] [address] Cardiology 06/28/22 06/16/24 Flo Esteban MD [address] [place] [address] [place] [address] [email or web address] Cardiothoracic Surgery 06/28/22 06/16/24 Dilan Rowland MD [address] [place] [address], [address] [place] [address] Insurance Assigned Provider 07/15/22 08/13/22 Corby Prado MD [address] [place] [address], [address] [place] [address] Insurance Assigned Provider 08/13/22 09/16/22 Neisha Pinto RN [address] [place] [address], [address] [place] [address] [email or web address] PHCM Watch Hairspring Assembler 02/26/23 06/10/25 Shreyas Wilson MD [address] [place] [address] Gastroenterology 06/17/24 Doretha Glynn MD [address] [place] [address] 3[address] [place] [address] Endocrinology 06/17/24 Izzy Hackett [address] [place] [address] [email or web address] PHCM Community Vault Mechanic 09/11/24 09/11/24 Radha Pereira, RANDI [address] [place] [address] PHCM Watch Hairspring AssemblerSales Support Coordinator 06/11/25 documented as of this encounter Additional Source Comments The information contained in this document represents components of the legal health record. It is not the complete legal health record.[facility]
--- OUTSIDE RECORDS SUMMARY | 2025-08-07 10:12 | XMS_ITS | Encounter Summary ---
Author Organization [facility] Address [address] [place] [address] Phone Care Team Providers Care Girls Swimming Coach Name Role Phone Lester Hicks MD Unavailable [phone] Margaux Montanez MD Unavailable Johann Hanson CNP Primary Care Provider [phone] Khang Kilgore MD Unavailable Luis Ignacio DO Unavailable Flo Esteban MD Unavailable [phone] Neisha Pinto RN Unavailable [email or web address] Shreyas Wilson MD Unavailable Doretha Glynn MD Unavailable [phone] Izzy Hackett Unavailable [email or web address] Radha Pereira RN Unavailable [phone] Encounter Details Date Type Department Care Team (Late st Contact Info) Description 11/17/2022 Procedure Pass [facility] [address] [place] [address] Social History Tobacco Use Types [...] high school, GED, job training, learning the Polish language, technical skills, or developing parenting skills)? [...] 11/17/2022 7:00 PM David Mccormick RN * [place] Suicide Severity Rating Scale (Screener/Recent Self-Report) Question [...] 08/24/2025 1:30 PM EST Office Visit [address] [place] [address] Johann Hanson, TIFFANIE 22 [facility], [address] [place] [address] [email or web address] 09/10/2025 9:00 AM EST Office Visit [facility]astroenterology Clinic 10 [place] [address] Unknown, Unknown, Shreyas Limon MD [address] [address] 09/21/2025 2:30 PM EST Office Visit [facility] Pulmonary, Allergy and Critical Care Medicine 10 [facility] [place] [address] Lester Hicks MD [address] [place] [address] 10/13/2025 9:20 AM EST Office Visit [facility] [address] [place] [address] [place] [address] Doretha Glynn MD [address] [place] [address] [address] [place] [address] [email or web address] 12/22/2025 8:30 AM EDT Office Visit [address] [address] Johann Hanson CNP [address] [place] [address], [address] [place] [address] [email or web address] 06/30/2026 8:00 AM EDT [facility] [address] [place] [address] Johann Hanson CNP 22 [facility], [address] [place] [address] [email or web address] documented as of this encounter Visit Diagnoses Not on filedocumented in this encounter Additional Health Concerns Infection Onset Date Last Indicated Resolved Time COVID-19 10/07/2023 10/07/2023 10/28/2023 1:21 AM EST Assessment Noted Time PHQ-2 Depression Total Score: 0 05/15/20 1:45 PM EDT documented as of this encounter Care Teams Girls Swimming Coach Relationship Specialty Start Date End Date Johann Hanson CNP [address] [place] [address], [address] [place] [address] PCP - General Family Medicine 02/11/21 Lester Hicks MD [address] [place] [address] Historical LMR Provider 07/28/17 Margaux Montanez MD [address] [place] [address], [address] [place] [address] [email or web address] Historical LMR Provider 07/28/17 Khang Kilgore MD [address] [place] [address], [address] [place] [address] Insurance Assigned Provider 01/12/24 Luis Ignacio DO [address] [place] [address], [address] [place] [address] Cardiology 06/28/22 06/16/24 Flo Esteban MD [address] [place] [address] [email or web address] Cardiothoracic Surgery 06/28/22 06/16/24 Neisha Pinto RN [address] [place] [address] [email or web address] Silk Brusher 02/26/23 06/10/25 Shreyas Wilson MD [address] [place] [address] Gastroenterology 06/17/24 Doretha Glynn MD [address] [place] [address] Endocrinology 06/17/24 Izzy Hackett [address] [place] [address] [email or web address] PHC Community Bag Machine Adjuster 09/11/24 09/11/24 Radha Pereira RN [address] [place] [address] [email or web address] PHCM Silk BrusherGlass Cleaner 06/11/25 documented as of this encounter Additional Source Comments The information contained in this document represents components of the legal health record. It is not the complete legal health record.[facility]
--- OUTSIDE RECORDS SUMMARY | 2025-08-07 10:12 | XMS_ITS | Encounter Summary ---
Author Organization [facility] Address [address] [place] [address] [place] [address] Phone Care Team Providers Care Manager Category Name Role Phone Tricia Balderas DO Unavailable Lester Hicks MD Unavailable [phone] Margaux Montanez MD Unavailable Demario Floyd MD Unavailable Pam Benson MD Unavailable [phone] Adithya Campos INSTRUMENTAL TEACHER Unavailable Beatriz Donaldson INTERNATIONAL LOGISTICS MANAGER Unavailable Beatriz Donaldson INTERNATIONAL LOGISTICS MANAGER Primary Care Provider Mamta Whitney DO Primary Care Provider [phone] Mamta Whitney DO Primary Care Provider [phone] Johann Hanson INSTRUMENTAL TEACHER Primary Care Provider [phone] Khang Kilgore MD Unavailable Luis Ignacio DO Unavailable Flo Esteban MD Unavailable [phone] Dilan Rowland MD Unavailable [phone] Corby Prado MD Unavailable [phone] Neisha Pinto RN Unavailable [email or web address] Shreyas Wilson MD Unavailable Doretha Glynn MD Unavailable [phone] Izzy Hackett Unavailable sami Radha Pereira RN Unavailable Encounter Details Date Type Department Care Team (Late st Contact Info) Description 05/20/2018 Ancillary Orders Virtual Department [address] [place] [address] Beatriz Donaldson, INTERNATIONAL LOGISTICS MANAGER [address] [place] [address] Lymphadenopathy; Generalized enlarged lymph nodes Social History [...] Office Visit [facility] Medicine [address] [place] [address] [place] [address] Johann Hanson, TIFFANIE [address] [place] [address], [address] [place] [address] [email or web address] 09/10/2025 9:00 AM EST Office Visit [facility] [address] [place] [phone] Unknown, Unknown, Shreyas Limon MD [address] [place] [phone] 09/21/2025 2:30 PM EST Office Visit [facility] Pulmonary, Allergy and Critical Care Medicine 10 [place] [address] Lester Hicks MD [address] [address] 10/13/2025 9:20 AM EST Office Visit [facility] [address] [place] [address] Doretha Glynn MD [address] [place] [address] [email or web address] 12/22/2025 8:30 AM EDT Office Visit [address] [place] [address] Johann Hanson, INSTRUMENTAL TEACHER [address] [place] [address], [address] [place] [address] [email or web address] 06/30/2026 8:00 AM EDT Office Visit [address] [place] [address] Johann Hanson, INSTRUMENTAL TEACHER [address] [place] [address], [address] [place] [address] [email or web address] documented as of this encounter [...] as of this encounter Care Teams Manager Category Relationship Specialty Start Date End Date Beatriz Donaldson, INTERNATIONAL LOGISTICS MANAGER [address] [place] [address] PCP - General Family Medicine 10/04/17 04/11/20 Mamta Whitney DO [address] [place] [address] [email or web address] PCP - General Family Medicine 04/12/20 02/08/21 Mamta Whitney DO [address] [place] [address] [email or web address] PCP - General Family Medicine 02/10/21 02/10/21 Johann Hanson CNP [address] [place] [address], [address] [place] [address] [email or web address] PCP - General Family Medicine 02/11/21 Tricia Balderas DO [address] [place] [address] [email or web address] Historical LMR Provider 07/28/17 10/15/21 Lester Hicks MD [address] [place] [address] [email or web address] Historical LMR Provider 07/28/17 Margaux Montanez MD [address] [place] [address], [address] [place] [address] [email or web address] Historical LMR Provider 07/28/17 Demario Floyd MD [address] [place] [address] [email or web address] Historical LMR Provider 07/28/17 10/15/21 Pam Benson MD [address] [place] [address] [email or web address] Historical LMR Provider 07/28/17 10/15/21 Adithya Campos INSTRUMENTAL TEACHER [address] [place] [address] [email or web address] Historical LMR Provider 07/28/17 12/25/21 Beatriz Donaldson NP [address] [place] [address] Historical LMR Provider 07/28/17 04/11/20 Khang Kilgore MD [address] [place] [address], [address] [place] [address] [email or web address] Insurance Assigned Provider 01/12/24 Luis Ignacio DO [address] [place] [address], [address] [place] [address] [email or web address] Cardiology 06/28/22 06/16/24 Flo Esteban MD [address] [place] [address] [email or web address] Cardiothoracic Surgery 06/28/22 06/16/24 Dilan Rowland MD [address] [place] [address], [address] [place] [address] [email or web address] Insurance Assigned Provider 07/15/22 08/13/22 Corby Prado MD [address] [place] [address], [address] [place] [address] [email or web address] Insurance Assigned Provider 08/13/22 09/16/22 Neisha Pinto RN [address] [place] [address], [address] [place] [address] [email or web address] PHCM Fight Manager 02/26/23 06/10/25 Shreyas Wilson MD [address] [place] [address] [email or web address] Gastroenterology 06/17/24 Doretha Glynn MD [address] [place] [address] Endocrinology 06/17/24 Izzy Hackett [address] [place] [address] [email or web address] PHCM Community Can Conveyor Feeder 09/11/24 09/11/24 Radha Pereira, RN [address] [place] [address] [email or web address] PHC Fight ManagerBusiness Account Leader 06/11/25 documented as of this encounter Additional Source Comments The information contained in this document represents components of the legal health record. It is not the complete legal health record.[facility]
--- OUTSIDE RECORDS SUMMARY | 2025-08-07 10:13 | XMS_ITS | Encounter Summary ---
Author Organization [facility] Address [address] [place] [address] [place] [address] Phone Care Team Providers Care Alloy Weigher Name Role Phone Tricia Balderas DO Unavailable Lester Hicks MD Unavailable [phone] Margaux Montanez MD Unavailable Demario Floyd MD Unavailable Pam Benson MD Unavailable [phone] Adithya Campos BENCH ASSEMBLER ELECTRICAL Unavailable Beatriz Donaldson LANGUAGE TRANSLATOR Unavailable Beatriz Donaldson LANGUAGE TRANSLATOR Primary Care Provider Mamta Whitney DO Primary Care Provider [phone] Mamta Whitney DO Primary Care Provider [phone] Johann Hanson BENCH ASSEMBLER ELECTRICAL Primary Care Provider [phone] Khang Kilgore MD Unavailable Luis Ignacio DO Unavailable Flo Esteban MD Unavailable [phone] Dilan Rowland MD Unavailable [phone] Corby Prado MD Unavailable [phone] Neisha iPnto RN Unavailable [email or web address] Shreyas Wilson MD Unavailable Doretha Glynn MD Unavailable [phone] Izzy Hackett Unavailable sami Radha Pereira RN Unavailable [phone] Encounter Details Date Type Department Care Team (Late st Contact Info) Description 11/12/2019 Ancillary Orders Virtual Department 30 [place] [address] Beatriz Donaldson, LANGUAGE TRANSLATOR [address] [place] [address] Breast screening Social History Tobacco Use Types [...] Description 08/24/2025 1:30 PM EST Office Visit [address] [address] Johann Hanson CNP [facility], [address] [place] [address] [email or web address] 09/10/2025 9:00 AM EST Office Visit [facility] [address] [place] [address] Unknown, Unknown, Shreyas Limon MD [address] [place] [address] 09/21/2025 2:30 PM EST Office Visit [facility] Pulmonary, Allergy and Critical Care Medicine [address] [place] [address] Lester Hicks MD [address] [place] [address] 10/13/2025 9:20 AM EST Office Visit [facility] [address] [place] [address] [place] [address] Doretha Glynn MD [address] [place] [address] [email or web address] 12/22/2025 8:30 AM EDT Office Visit [address] [place] [address] Johann Hanson, BENCH ASSEMBLER ELECTRICAL [address] [place] [address], [address] [place] [address] [email or web address] 06/30/2026 8:00 AM EDT Office Visit [address] [place] [address] Johann Hanson, BENCH ASSEMBLER ELECTRICAL [address] [place] [address], [address] [address] [email or web address] documented as of this encounter [...] documented as of this encounter Care Teams Alloy Weigher Relationship Specialty Start Date End Date Beatriz Donaldson LANGUAGE TRANSLATOR [address] [place] [address] PCP - General Family Medicine 10/04/17 04/11/20 Mamta Whitney DO [address] [place] [address] [email or web address] PCP - General Family Medicine 04/12/20 02/08/21 Mamta Whitney DO [address] [place] [address] [email or web address] PCP - General Family Medicine 02/10/21 02/10/21 Johann Hanson CNP [address] [place] [address], [address] [place] [address] [email or web address] PCP - General Family Medicine 02/11/21 Tricia Balderas DO [address] [place] [address] [email or web address] Historical LMR Provider 07/28/17 10/15/21 Lester Hicks MD [address] [place] [address] [email or web address] Historical LMR Provider 07/28/17 Margaux Montanez MD [facility], [address] [place] [address] [email or web address] Historical LMR Provider 07/28/17 Demario Floyd MD [address] [place] [address] [email or web address] Historical LMR Provider 07/28/17 10/15/21 Pam Benson MD [address] [place] [address] [email or web address] Historical LMR Provider 07/28/17 10/15/21 Adithya Campos BENCH ASSEMBLER ELECTRICAL [address] [place] [address] [email or web address] Historical LMR Provider 07/28/17 12/25/21 Beatriz Donaldson NP [address] [place] [address] Historical LMR Provider 07/28/17 04/11/20 Khang [place] MD [address] [place] [address], [address] [place] [address] [email or web address] Insurance Assigned Provider 01/12/24 Luis Ignacio DO [address] [place] [address], [address] [place] [address] [email or web address] Cardiology 06/28/22 06/16/24 Flo Esteban MD [address] [place] [address] [email or web address] Cardiothoracic Surgery 06/28/22 06/16/24 Dilan Rowland MD [address] [place] [address], [address] [place] [address] [email or web address] Insurance Assigned Provider 07/15/22 08/13/22 Corby Prado MD [address] [place] [address], [address] [place] [address] [email or web address] Insurance Assigned Provider 08/13/22 09/16/22 Neisha Pinto RN [address] [place] [address], [address] [place] [address] [email or web address] PHCM Dielectric Machine Operator 02/26/23 06/10/25 Shreyas Wilson MD [address] [place] [address] [email or web address] Gastroenterology 06/17/24 Doretha Glynn MD [address] [place] [address] [address] [place] [address] [email or web address] Endocrinology 06/17/24 Izzy Hackett [address] [place] [address] [email or web address] PHCM Community Junior Accountant Bookkeeper 09/11/24 09/11/24 Radha Pereira, RN [address] [place] [address] [email or web address] PHCM Dielectric Machine OperatorFlood Control Engineer 06/11/25 documented as of this encounter Additional Source Comments The information contained in this document represents components of the legal health record. It is not the complete legal health record.[facility]
--- OUTSIDE RECORDS SUMMARY | 2025-08-07 10:13 | XMS_ITS | Encounter Summary ---
Author Organization [facility] Address [address] [place] [address] Phone Care Team Providers Care Truss Driver Helper Name Role Phone Lester Hicks MD Unavailable [phone] Margaux Montanez MD Unavailable [phone] Johann Hanson CNP Primary Care Provider [phone] Khang [place] MD Unavailable Luis Ignacio DO Unavailable Flo Esteban MD Unavailable [phone] Neisha Pinto RN Unavailable [email or web address] Shreyas Wilson MD Unavailable Doretha Glynn MD Unavailable [phone] Izzy Hackett Unavailable [email or web address] Radha Pereira RN Unavailable Encounter Details Date Type Department Care Team (Latest Contact Info) Description 09/07/2023 Transcribe Orders Virtual Department 30 [place] [address] Shreyas Wilson MD [address] [place] [phone] [email or web address] Gastroesophageal reflux disease, unspecified whether [...] Description 08/24/2025 1:30 PM EST Office Visit [address] [place] [address] Johann Hanson, SINGER SONGWRITER [address] [place] [address], [address] [place] [address] [email or web address] 09/10/2025 9:00 AM EST Office Visit [facility] 10 [place] [address] Unknown, Unknown, Shreyas Limon MD [address] [place] [address] 09/21/2025 2:30 PM EST Office Visit [facility] Pul[facility], Allergy and Critical Care Medicine 10 [place] [address] Lester Hicks MD [address] [place] [address] 10/13/2025 9:20 AM EST Office Visit [facility] [address] [place] [address] [place] [address] Doretha Glynn MD [address] [place] [address] [email or web address] 12/22/2025 8:30 AM EDT Office Visit [address] [place] [address] Johann Hanson, SINGER SONGWRITER [address] [place] [address], [address] [place] [address] [email or web address] 06/30/2026 8:00 AM EDT Office Visit [facility] [address] [place] [address] Johann Hanson CNP [address] [facility], [address] [place] [address] [email or web address] documented as of this encounter [...] documented as of this encounter Care Teams Truss Driver Helper Relationship Specialty Start Date End Date Johann Hanson CNP [address] [facility], [address] [place] [address] PCP - General Family Medicine 02/11/21 Lester Hicks MD [address] [place] [address] Historical LMR Provider 07/28/17 Margaux Montanez MD [address] [facility], [address] [place] [address] [email or web address] Historical LMR Provider 07/28/17 Khang [place] MD [address] [place] [address], [address] [place] [address] Insurance Assigned Provider 01/12/24 Luis Ignacio DO [address] [place] [address], [address] [place] [address] Cardiology 06/28/22 06/16/24 Flo Esteban MD [address] [place] [address] [email or web address] Cardiothoracic Surgery 06/28/22 06/16/24 Neisha Pinto RN [address] [place] [address] [email or web address] PHCM Cab Driver 02/26/23 06/10/25 Shreyas Wilson MD [address] [place] [address] Gastroenterology 06/17/24 Doretha Glynn MD [address] [place] [address] [address] [place] [address] Endocrinology 06/17/24 Izzy Hackett [address] [place] [address] [email or web address] PHCM Community Lead Javascript Engineer 09/11/24 09/11/24 Radha Pereira RN [address] [place] [address] PHCM Cab DriverDegreasing Solution Mixer 06/11/25 documented as of this encounter Additional Source Comments The information contained in this document represents components of the legal health record. It is not the complete legal health record.[facility]
--- OUTSIDE RECORDS SUMMARY | 2025-08-07 10:13 | XMS_ITS | Encounter Summary ---
Author Organization [facility] Address [address] [place] [address] [place] [address] Phone Care Team Providers Care Montessori Preschool Teacher Name Role Phone Tricia Balderas DO Unavailable Lester Hicks MD Unavailable [phone] Margaux Montanez MD Unavailable Demario Floyd MD Unavailable Pam Benson MD Unavailable [phone] Adithya Campos BATTERY TEST ENGINEER Unavailable Beatriz Donaldson BUS DRIVER SUPERVISOR Unavailable Beatriz Donaldson BUS DRIVER SUPERVISOR Primary Care Provider Mamta Whitney DO Primary Care Provider [phone] Mamta Whitney DO Primary Care Provider [phone] Johann Hanson BATTERY TEST ENGINEER Primary Care Provider [phone] Khang [place] MD Unavailable Luis Ignacio DO Unavailable Flo Esteban MD Unavailable [phone] Dilan Rowland MD Unavailable [phone] Corby Prado MD Unavailable [phone] Neisha Pinto RN Unavailable [email or web address] Shreyas Wilson MD Unavailable Doretha Glynn MD Unavailable [phone] Izzy Hackett Unavailable [email or web address] Radha Pereira RN Unavailable [phone] Encounter Details Date Type Department Care Team (Late Contact Info) Description 05/29/2019 Telephone [facility] Pulmonary, Allergy and Critical Care Medicine [address] [place] [address] Aishwarya Vasquez MD [address] [place] [address] [phone] [email or web address] Social History Tobacco Use Types Packs/Day Years [...] Upcoming Encounters Date Type Department Care Team ([facility] Contact Info) Description 08/24/2025 1:30 PM EST Office Visit [address] [address] Johann Hanson, TIFFANIE 22 [facility], [address] [place] [address] [email or web address] 09/10/2025 9:00 AM EST Office Visit [facility] [address] [place] [address] [phone] Unknown, Unknown, Shreyas Limon MD [address] [place] [address] [phone] 09/21/2025 2:30 PM EST Office Visit [facility] Pulmonary, Allergy and Critical Care Medicine [address] [place] [address] Lester Hicks MD [address] [place] [address] 10/13/2025 9:20 AM EST Office Visit [facility] [address] [place] [address] [place] [address] Doretha Glynn MD [address] [place] [address] [email or web address] 12/22/2025 8:30 AM EDT Office Visit [address] [place] [address] Johann Hanson, BATTERY TEST ENGINEER [address] [place] [address], [address] [place] [address] [email or web address] 06/30/2026 8:00 AM EDT Office Visit [address] [place] [address] Johann Hanson, BATTERY TEST ENGINEER [address] [place] [address], [address] [place] [address] [email or web address] documented as of this encounter Visit Diagnoses Not on filedocumented in this encounter Additional Health Concerns Infection Onset Date Last Indicated Resolved Time CoV-Presumed 05/27/2022 05/27/2022 06/17/2022 1:21 AM EDT CoV-Presumed Comment:COVID-19 Added 10/12/2022 10/12/2022 10/13/2022 6:26 P M EST COVID-19 10/13/2022 10/13/2022 11/03/2022 1:21 AM EST COVID-19 10/07/2023 10/07/2023 10/28/2023 1:21 AM EST documented as of this encounter Care Teams Montessori Preschool Teacher Relationship Specialty Start Date End Date Beatriz Donaldson, BUS DRIVER SUPERVISOR [address] [place] [address] PCP - General Family Medicine 10/04/17 04/11/20 Mamta Whitney DO [address] [place] [address] [email or web address] PCP - General Family Medicine 04/12/20 02/08/21 Mamta Whitney DO [address] [place] [address] [email or web address] PCP - General Family Medicine 02/10/21 02/10/21 Johann Hanson CNP [address] [place] [address], [address] [place] [address] [email or web address] PCP - General Family Medicine 02/11/21 Tricia Balderas DO [address] [place] [address] [email or web address] Historical LMR Provider 07/28/17 10/15/21 Lester Hicks MD [address] [place] [address] [email or web address] Historical LMR Provider 07/28/17 Margaux Montanez MD [address] [place] [address], [address] [place] [address] [email or web address] Historical LMR Provider 07/28/17 Demario Floyd MD [address] [place] [address] [email or web address] Historical LMR Provider 07/28/17 10/15/21 Pam Benson MD [address] [place] [address] [email or web address] Historical LMR Provider 07/28/17 10/15/21 Adithya Campos BATTERY TEST ENGINEER [address] [place] [address] [email or web address] Historical LMR Provider 07/28/17 12/25/21 Beatriz Donaldson NP [address] [place] [address] Historical LMR Provider 07/28/17 04/11/20 Khang [place] MD [address] [place] [address], [address] [place] [address] [email or web address] Insurance Assigned Provider 01/12/24 Luis Ignacio DO [address] [place] [address], [address] [place] [address] [email or web address] Cardiology 06/28/22 06/16/24 Flo Esteban MD [address] [place] [address] [email or web address] Cardiothoracic Surgery 06/28/22 06/16/24 Dilan Rowland MD [address] [place] [address], [address] [place] [address] [email or web address] Insurance Assigned Provider 07/15/22 08/13/22 Corby Prado MD [address] [place] [address], [address] [place] [address] [email or web address] Insurance Assigned Provider 08/13/22 09/16/22 Neisha Pinto RN [address] [place] [address], [address] [place] [address] [email or web address] PHCM Remote Encoding Operations Supervisor 02/26/23 06/10/25 Shreyas Wilson MD [address] [place] [address] [email or web address] Gastroenterology 06/17/24 Doretha Glynn MD [address] [place] [address] Endocrinology 06/17/24 Izzy Hackett [address] [place] [address] [email or web address] PHCM Community Gasoline Power Shovel Operator 09/11/24 09/11/24 Radha Pereira, RN [address] [place] [address] [email or web address] PHC Remote Encoding Operations SupervisorBookbinder Apprentice 06/11/25 documented as of this encounter Additional Source Comments The information contained in this document represents components of the legal health record. It is not the complete legal health record.[facility]
--- OUTSIDE RECORDS SUMMARY | 2025-08-07 10:13 | XMS_ITS | Encounter Summary ---
Author Organization [facility] Address [address] [place] [address] Phone Care Team Providers Care Consulting Services Manager Name Role Phone Lester Hicks MD Unavailable [phone] Margaux Montanez MD Unavailable [phone] Johann Hanson CNP Primary Care Provider [phone] Khang [place] MD Unavailable Luis Ignacio DO Unavailable Flo Esteban MD Unavailable [phone] Neisha Pinto RN Unavailable [email or web address] Shreyas Wilson MD Unavailable [phone] Doretha Glynn MD Unavailable [phone] Izzy Hackett Unavailable [email or web address] Radha Pereira RN Unavailable [phone] Encounter Details Date Type Department Care Team (Late st Contact Info) Description 10/12/2022 Procedure Pass [facility] [address] [place] [address] Social History Tobacco Use Types [...] Description 08/24/2025 1:30 PM EST Office Visit [facility] [address] [place] [address] Johann Hanson, TIFFANIE 22 [facility], [address] [place] [address] [email or web address] 09/10/2025 9:00 AM EST Office Visit [facility] 10 [place] [address] Unknown, Unknown, Shreyas Limon MD 10 [facility] 2 [place] [address] 09/21/2025 2:30 PM EST Office Visit [facility] Pulmonary, Allergy and Critical Care Medicine [address] [place] [address] Lester Hicks MD [address] [place] [address] 10/13/2025 9:20 AM EST Office Visit [facility] [address] [place] [address] [place] [address] Doretha Glynn MD [address] [place] [address] [email or web address] 12/22/2025 8:30 AM EDT Office Visit [address] [place] [address] Johann Hanson, PHYSICAL THERAPY RESIDENT [address] [place] [address], [address] [place] [address] [email or web address] 06/30/2026 8:00 AM EDT Office Visit [address] [place] [address] Johann Hanson, PHYSICAL THERAPY RESIDENT [address] [place] [address], [address] [place] [address] [email or web address] documented as of this encounter [...] documented as of this encounter Care Teams Consulting Services Manager Relationship Specialty Start Date End Date Johann Hanson CNP [address] [place] [address], [address] [place] [address] PCP - General Family Medicine 02/11/21 Lester Hicks MD [address] [place] [address] 2[address] [place] [address] [email or web address] Historical LMR Provider 07/28/17 Margaux Montanez MD [address] [place] [address], [address] [place] [address] [email or web address] Historical LMR Provider 07/28/17 Khang [place] MD [address] [place] [address], [address] [place] [address] [email or web address] Insurance Assigned Provider 01/12/24 Luis Ignacio DO [address] [place] [address], [address] [place] [address] Cardiology 06/28/22 06/16/24 Flo Esteban MD [address] [place] [address] [place] [address] [email or web address] Cardiothoracic Surgery 06/28/22 06/16/24 Neisha Pinto RN [address] [place], [place] [address] [place] [address] [email or web address] PHCM Auto Bench Mechanic 02/26/23 06/10/25 Shreyas Wilson MD [address] [place] [address] Gastroenterology 06/17/24 Doretha Glynn MD [address] [place] [address] Endocrinology 06/17/24 Izzy Hackett [address] [place] [address] [email or web address] PHCM Community Casey Saw Operator 09/11/24 09/11/24 Radha Pereira RN [address] [place] [address] PHC Auto Bench MechanicDrafter Cartographic 06/11/25 documented as of this encounter Additional Source Comments The information contained in this document represents components of the legal health record. It is not the complete legal health record.[facility]
--- OUTSIDE RECORDS SUMMARY | 2025-08-07 10:13 | XMS_ITS | Encounter Summary ---
Author Organization [facility] Address [address] [facility] [address] [place] [address] Phone Care Team Providers Care Building Repair Maintenance Supervisor Name Role Phone Lester Hicks MD Unavailable [phone] Margaux Montanez MD Unavailable Johann Hanson CNP Primary Care Provider [phone] Khang Kilgore MD Unavailable [phone] Shreyas [place] MD Unavailable [phone] Doretha Glynn MD Unavailable [phone] Radha Pereira RN Unavailable [phone] Reason for Visit * Reason Onset Date Comments Care Coordination 08/05/2025 [facility] Encounter Details Date Type Department Care Team (Latest Contact Info) Description 08/05/2025 Patient Outreach [facility] - Primary Care [address] [place] [address] [id number] Izzy Hackett 10 [place] [address] [email or web address] Care Coordination (General outreach) Social History Tobacco [...] Hackett - 08/05/2025 12:45 PM EDT Complex Scheduling Clerk Note Resource requested: friendly outreach call Resources provided to: pt via telephone Status: complete Resource(s) provided: CCC called patient as part of routine friendly outreach calls. CCC provided support and empathetic listening. Things are pretty good, having total knee replacement in [place]. Worried about paying for surgery.Dealing with billing procedure in [place]. Also needs to see green building materials distributor, will see them today. Had a lupus [...] Description 08/24/2025 1:30 PM EST Office Visit [facility] [address] [place] [address] [place] [address] Johann Hanson, TIFFANIE [address] [facility], [address] [place] [address] [email or web address] 09/10/2025 9:00 AM EST Office Visit [facility] [address] [place] [address] Unknown, Unknown, Shreyas Limon MD [address] [place] [address] 09/21/2025 2:30 PM EST Office Visit [facility] [address] [place] [address] Lester Hicks MD [address] [place] [address] 10/13/2025 9:20 AM EST Office Visit [facility] [address] [place] [address] [place] [address] Doretha Glynn MD [address] [place] [address] [email or web address] 12/22/2025 8:30 AM EDT Office Visit [address] [place] [address] Johann Hanson CNP [address] [place] [address], [address] [place] [address] [email or web address] 06/30/2026 8:00 AM EDT Office Visit [address] [place] [address] Johann Hanson CNP [address] [place] [address], [address] [place] [address] [email or web address] documented as of this encounter Visit Diagnoses Not on filedocumented in this encounter Additional Health Concerns Assessment Noted Time PHQ-9 Depression Total Score: 4 10/29/19 24 1:54 PM EST PHQ-2 Depression Total Score: 0 06/23/20 25 12:32 PM EDT documented as of this encounter Care Teams Building Repair Maintenance Supervisor Relationship Specialty Start Date End Date Johann Hanson CNP [address] [place] [address], [address] [place] [address] PCP - General Family Medicine 02/11/21 Lester Hicks MD [address] [place] [address] [email or web address] Historical LMR Provider 07/28/17 Margaxu Montanez MD [address] [place] [address], [address] [place] [address] [email or web address] Historical LMR Provider 07/28/17 Khang Kilgore MD [address] [place] [address], [address] [place] [address] [email or web address] Insurance Assigned Provider 01/12/24 Shreyas [place] MD [address] [place] [address] [email or web address] Gastroenterology 06/17/24 Doretha Glynn MD [address] [place] [address] Endocrinology 06/17/24 Radha Pereira, RN [address] [place] [address] [email or web address] PHCM Surgical Services CoordinatorSales Support Technician 06/11/25 documented as of this encounter Additional Source Comments The information contained in this document represents components of the legal health record. It is not the complete legal health record.[facility]
--- OUTSIDE RECORDS SUMMARY | 2025-08-07 10:13 | XMS_ITS | Encounter Summary ---
Author Organization [facility] Address [address] [facility] [address] [place] [address] Phone Care Team Providers Care Fish Egg Packer Name Role Phone Lester Hicks MD Unavailable [phone] Margaux Montanez MD Unavailable Johann Hanson POWDER HAND Primary Care Provider [phone] Khang Kilgore MD Unavailable [phone] Shreyas [place] MD Unavailable [phone] Doretha Glynn MD Unavailable [phone] Radha Pereira RN Unavailable [phone] Encounter Details Date Type Department Care Team (Late st Contact Info) Description 07/24/2025 Orders Only [facility] [address] [place] [address] [place] [address] Johann Hanson, POWDER HAND 22 [facility], [address] [place], [place] [phone] Social History Tobacco Use Types Packs/Day Years [...] high school, GED, job training, learning the Croatian language, technical skills, or developing parenting skills)? [...] Description 08/24/2025 1:30 PM EST Office Visit [address] [place] [address] Johann Hanson, POWDER HAND 22 [facility], [address] [place] [address] [email or web address] 09/10/2025 9:00 AM EST Office Visit [facility] 10 [place] [address] Unknown, Unknown, Shreyas Limon MD [address] [place] [address] 09/21/2025 2:30 PM EST Office Visit [facility] 10 [facility] [place] [address] Lester Hicks MD [address] [place] [address] 10/13/2025 9:20 AM EST Office Visit [facility] [address] [place] [address] [place] [address] Doretha Glynn MD [address] [place] [address] [email or web address] 12/22/2025 8:30 AM EDT Office Visit [address] [place] [address] Johann Hanson CNP 22 [facility], [address] [place] [address] [email or web address] 06/30/2026 8:00 AM EDT Office Visit [facility] [address] [place] [address] Johann Hanson CNP 22 [facility], [address] [place] [address] [email or web address] documented as of this encounter [...] documented as of this encounter Care Teams Fish Egg Packer Relationship Specialty Start Date End Date Johann Hanson CNP 22 [facility], [address] [place] [address] PCP - General Family Medicine 02/11/21 Lester Hicks MD [address] [place] [address] Historical LMR Provider 07/28/17 Margaux Montanez MD [address] [place] [address], [address] [place] [address] [email or web address] Historical LMR Provider 07/28/17 Khang Kilgore MD [address] [place] [address], [address] [place] [address] [email or web address] Insurance Assigned Provider 01/12/24 Shreyas [place] MD [address] [place] [address] [email or web address] Gastroenterology 06/17/24 Doretha Glynn MD [address] [place] [address] Endocrinology 06/17/24 Radha Pereira, RN [address] [place] [address] [email or web address] PHCM Key Account RepresentativeSupervisor Inspection Department 06/11/25 documented as of this encounter Additional Source Comments The information contained in this document represents components of the legal health record. It is not the complete legal health record.[facility]
--- OUTSIDE RECORDS SUMMARY | 2025-08-07 10:13 | XMS_ITS ---
Author Organization [facility] Address [address] [place] [address] [place] [address] Phone Care Team Providers Care Case Sealer Name Role Phone Lester Hicks MD Unavailable [phone] Margaux Montanez MD Unavailable Johann Hanson CNP Primary Care Provider [phone] Khang Kilgore MD Unavailable Shreyas [place] MD Unavailable [phone] Doretha Glynn MD Unavailable [phone] Radha Pereira RN Unavailable Population Health Care Management (PHCM) Status:Enrolled (Active) Start date:10/23/2023 Enrollment date:10/23/2023 Current support & services provided:[facility] [employer] Related social drivers of health:Housing Stability, Child or Family Care, Education, Food, Unemployment, Paying for Meds, Paying Utility Bills, Transportation, Digital Access, SNAP/WIC Case Team Name Relationship Phone Email Radha Pereira RN Registered Nurse(Responsible Staff) [phone] Izzy Herbert PHCM Senior Wind Energy Consultant [email or web address] Continued Care and Services Coordination
--- OUTSIDE RECORDS SUMMARY | 2025-08-07 10:13 | XMS_ITS | Encounter Summary ---
Author Organization [facility] Address [address] [facility] [address] [place] [address] Phone Care Team Providers Care Color Depositing Machine Tender Name Role Phone Letser Hicks MD Unavailable [phone] Margaux Montanez MD Unavailable [phone] Johann Hanson CNP Primary Care Provider [phone] Khang Kilgore MD Unavailable Neisha Pinto RN Unavailable [email or web address] Shreyas [place] MD Unavailable [phone] Doretha Glynn MD Unavailable [phone] Radha Pereira RN Unavailable Reason for Visit * Reason Comments Medication Refill Encounter Details Date Type Department Care Team (Late st Contact Info) Description 06/05/2025 Refill [facility] Rheumatology [address] [place], [place] [phone] Margaux Montanez MD 22 [facility], [address] [place] [address] [email or web address] Medication Refill Social History Tobacco Use Types [...] Description 08/24/2025 1:30 PM EST Office Visit [facility] [address] [address] Johann Hanson, TIFFANIE 22 [facility], [address] [place] [address] [email or web address] 09/10/2025 9:00 AM EST Office Visit [facility] 10 [place] [address] Unknown, Unknown, Shreyas Limon MD [address] [place] [address] 09/21/2025 2:30 PM EST Office Visit [facility] [address] [facility] [place] [address] Lester Hicks MD [address] [place] [address] 10/13/2025 9:20 AM EST Office Visit [facility] [address] [place] [address] Doretha Glynn MD [address] [place] [address] [email or web address] 12/22/2025 8:30 AM EDT Office Visit [address] [place] [address] Johann Hanson CNP [address] [place] [address], [address] [place] [address] [email or web address] 06/30/2026 8:00 AM EDT Office Visit [address] [place] [address] Johann Hanson CNP [address] [place] [address], [address] [place] [address] [email or web address] documented as of this encounter Visit Diagnoses Diagnosis Inflammatory arthritis Unspecified inflammatory polyarthropathy documented in this encounter Additional Health Concerns Assessment Noted Time PHQ-9 Depression Total Score: 4 10/29/19 24 1:54 PM EST PHQ-2 Depression Total Score: 0 06/10/20 24 9:22 AM EDT documented as of this encounter Care Teams Color Depositing Machine Tender Relationship Specialty Start Date End Date Johann Hanson CNP [address] [place] [address], [address] [place] [address] PCP - General Family Medicine 02/11/21 Lester Hicks MD [address] [place] [address] Historical LMR Provider 07/28/17 Margaux Montanez MD [address] [place] [address] [address] [place] [address] [email or web address] Historical LMR Provider 07/28/17 Khang Kilgore MD [address] [place] [address], [address] [place] [address] [email or web address] Insurance Assigned Provider 01/12/24 Neisha Pinto, RANDI 22 [facility], [address] [place] [address] [email or web address] PHCM Abrasive Coating Machine Operator 02/26/23 06/10/25 Shreyas [place] MD [address] [place] [address] [email or web address] Gastroenterology 06/17/24 Doretha Glynn MD [address] [place] [address] [address] [place] [address] [email or web address] Endocrinology 06/17/24 Radha Pereira, RN [address] [place] [address] [email or web address] PHCM Abrasive Coating Machine OperatorFish Farm Laborer 06/11/25 documented as of this encounter Additional Source Comments The information contained in this document represents components of the legal health record. It is not the complete legal health record.[facility]
--- OUTSIDE RECORDS SUMMARY | 2025-08-07 10:13 | XMS_ITS | Encounter Summary ---
Author Organization [facility] Address [address] [place] [address] [place] [address] Phone Care Team Providers Care Supervisor Of Way Name Role Phone Lester Hicks MD Unavailable [phone] Margaux Montanez MD Unavailable Johann Hanson CNP Primary Care Provider [phone] Khang Kilgore MD Unavailable Luis Ignacio DO Unavailable [phone] Flo Esteban MD Unavailable [phone] Corby Prado MD Unavailable [phone] Neisha Pinto RN Unavailable [email or web address] Shreyas [place] MD Unavailable Doretha Glynn MD Unavailable [phone] Izzy Hackett Unavailable [email or web address] Radha Pereira RN Unavailable Encounter Details Date Type Department Care Team (Late st Contact Info) Description 08/15/2022 Procedure Pass [facility], Ct Scan - [address] [id number] Social History Tobacco Use Types Packs/Day Years [...] high school, GED, job training, learning the Gabonese language, technical skills, or developing parenting skills)? [...] 08/24/2025 1:30 PM EST Office Visit [facility] [place] [facility] [address] [place] [address] Johann Hanson, TIFFANIE 22 [facility], [address] [place] [address] [email or web address] 09/10/2025 9:00 AM EST Office Visit [facility] 10 [place] [address] Unknown, Unknown, Shreyas Limon MD [address] [address] 09/21/2025 2:30 PM EST Office Visit [facility] 10 [place] [address] Lester Hicks MD [address] [address] 10/13/2025 9:20 AM EST Office Visit [facility] [address] [place] [address] Doretha Glynn MD [address] [place] [address] [email or web address] 12/22/2025 8:30 AM EDT Office Visit [address] [place] [address] Johann Hanson, BINDERY HELPER [address] [place] [address], [address] [place] [address] [email or web address] 06/30/2026 8:00 AM EDT Office Visit [address] [place] [address] Johann Hanson BINDERY HELPER [address] [place] [address], [address] [place] [address] [email or web address] documented as of this encounter [...] as of this encounter Care Teams Supervisor Of Way Relationship Specialty Start Date End Date Johann Hanson CNP [address] [place] [address], [address] [place] [address] [email or web address] PCP - General Family Medicine 02/11/21 Lester Hicks MD [address] [place] [address] [email or web address] Historical LMR Provider 07/28/17 Margaux Montanez MD [address] [place] [address], [address] [place] [address] [email or web address] Historical LMR Provider 07/28/17 Khang Kilgore MD [address] [place] [address], [address] [place] [address] Insurance Assigned Provider 01/12/24 Luis Ignacio DO [address] [place] [address], [address] [place] [address] Cardiology 06/28/22 06/16/24 Flo Esteban MD [address] [place] [address] F[address] [place] [address] [email or web address] Cardiothoracic Surgery 06/28/22 06/16/24 Corby Prado MD [address] [place] [address], [address] [place] [address] Insurance Assigned Provider 08/13/22 09/16/22 Neisha Pinto RN 22 [facility], [address] [place] [address] [email or web address] PHCM Numerical Control Machine Tool Operator 02/26/23 06/10/25 Shreyas [place] MD [address] [place] [address] Gastroenterology 06/17/24 Doretha Glynn MD [address] [place] [address] [address] [place] [address] Endocrinology 06/17/24 Izzy Hackett [address] [place] [address] [email or web address] PHC Community Tap Builder 09/11/24 09/11/24 Radha Pereira RN [address] [place] [address] PHCM Numerical Control Machine Tool OperatorPin Attacher 06/11/25 documented as of this encounter Additional Source Comments The information contained in this document represents components of the legal health record. It is not the complete legal health record.[facility]
--- OUTSIDE RECORDS SUMMARY | 2025-08-07 10:13 | XMS_ITS | Encounter Summary ---
Author Organization [facility] Address [address] [place] [address] [place] [address] Phone Care Team Providers Care Egg Caser Name Role Phone Lester Hicks MD Unavailable [phone] Margaux Montanez MD Unavailable Johann Hanson CNP Primary Care Provider [phone] Khang Kilgore MD Unavailable Luis Ignacio DO Unavailable Flo Esteban MD Unavailable [phone] Dilan Rowland MD Unavailable [phone] Corby Prado MD Unavailable [phone] Neisha Pinto RN Unavailable [email or web address] Shreyas [place] MD Unavailable Doretha Glynn MD Unavailable [phone] Izzy Hackett Unavailable [email or web address] Radha Pereira RN Unavailable Encounter Details Date Type Department Care Team (Late st Contact Info) Description 02/10/2022 Procedure Pass [facility] [address] [place] [address] Social History Tobacco Use Types Packs/Day [...] high school, GED, job training, learning the Filipino language, technical skills, or developing parenting skills)? [...] EST Office Visit [facility] [place] [facility] [address] [place] [address] [place] [address] Johann Hanson, TIFFANIE 22 [facility], [address] [place] [address] [email or web address] 09/10/2025 9:00 AM EST Office Visit [facility] Gastro[facility]ology Clinic 10 [place] [address] Unknown, Unknown, Shreyas Limon MD 10 [facility] 2 [place] [address] 09/21/2025 2:30 PM EST Office Visit [facility] 10 [facility] [place] [address] Lester Hicks MD 10 [facility] 2[address] [place] [address] 10/13/2025 9:20 AM EST Office Visit [facility] [address] [place] [address] [place] [address] Doretha Glynn MD [address] [place] [address] [email or web address] 12/22/2025 8:30 AM EDT Office Visit [address] [place] [address] Johann Hanson, RECEIVING BARN CUSTODIAN [address] [place] [address], [address] [place] [address] [email or web address] 06/30/2026 8:00 AM EDT Office Visit [address] [place] [address] Johann Hanson, RECEIVING BARN CUSTODIAN [address] [place] [address], [address] [place] [address] [email or web address] documented as of this encounter [...] documented as of this encounter Care Teams Egg Caser Relationship Specialty Start Date End Date Johann Hanson CNP [address] [place] [address], [address] [place] [address] PCP - General Family Medicine 02/11/21 Lester Hicks MD [address] [place] [address] Historical LMR Provider 07/28/17 Margaux Montanez MD [address] [place] [address], [address] [place] [address] [email or web address] Historical LMR Provider 07/28/17 Khang Kilgore MD [address] [place] [address], [address] [place] [address] Insurance Assigned Provider 01/12/24 Luis Ignacio DO [address] [place] [address], [address] [place] [address] Cardiology 06/28/22 06/16/24 Flo Esteban MD [address] [place] [address] [place] [address] [email or web address] Cardiothoracic Surgery 06/28/22 06/16/24 Dilan Rowland MD [address] [place] [address], [address] [place] [address] Insurance Assigned Provider 07/15/22 08/13/22 Corby Prado MD [address] [place] [address], [address] [place] [address] Insurance Assigned Provider 08/13/22 09/16/22 Neisha Pinto RN [address] [place] [address], [address] [place] [address] [email or web address] PHCM Coyote Hunter 02/26/23 06/10/25 Shreyas [place] MD [address] [place] [address] Gastroenterology 06/17/24 Doretha Glynn MD [address] [place] [address] [address] [place] [address] Endocrinology 06/17/24 Izzy Hackett [address] [place] [address] [email or web address] PHCM Community Model Engine Mechanic 09/11/24 09/11/24 Radha Pereira, RANDI [address] [place] [address] PHCM Coyote HunterYarn Dyer 06/11/25 documented as of this encounter Additional Source Comments The information contained in this document represents components of the legal health record. It is not the complete legal health record.[facility]
--- OUTSIDE RECORDS SUMMARY | 2025-08-07 10:13 | XMS_ITS | Encounter Summary ---
Author Organization [facility] Address [address] [place] [address] Phone Care Team Providers Care Benzene Operator Name Role Phone Lester Hicks MD Unavailable [phone] Margaux Montanez MD Unavailable Johann Hanson CNP Primary Care Provider [phone] Khang Kilgore MD Unavailable Luis Ignacio DO Unavailable Flo Esteban MD Unavailable [phone] Neisha Pinto RN Unavailable [email or web address] Shreyas Wilson MD Unavailable [phone] Doretha Glynn MD Unavailable [phone] Izzy Hackett Unavailable [email or web address] Radha Pereira RN Unavailable [phone] Encounter Details Date Type Department Care Team (Late st Contact Info) Description 12/07/2022 Procedure Pass [facility], Ct Scan - [address] [id number] Social History Tobacco Use Types Packs/Day Years [...] 12/07/2022 9:18 AM Alise Hamilton, RN * Mchenry Suicide Severity Rating Scale (Screener/Recent Self-Report) Question [...] Office Visit [facility] [address] [place] [address] Johann Hanson, TIFFANIE [address] [facility], [address] [place] [address] [email or web address] 09/10/2025 9:00 AM EST Office Visit [facility] Gastroenterology Clinic 10 [place] [address] Unknown, [place], Shreyas Limon MD [address] [address] 09/21/2025 2:30 PM EST Office Visit [facility] Pulmonary, Allergy and Critical Care Medicine 10 [facility] [address] Lester Hicks MD [address] [place] [address] 10/13/2025 9:20 AM EST Office Visit [facility]inology [address] [place] [address] Doretha Glynn MD [address] [place] [address] 3rd [place] [address] [email or web address] 12/22/2025 8:30 AM EDT Office Visit [address] [place] [address] Johann Hanson, TIFFANIE [address] [place] [address], [address] [place] [address] [email or web address] 06/30/2026 8:00 AM EDT Office Visit [facility] Medicine 22 [place] [address] Johann Hanson CNP [address] [facility], [address] [place] [address] [email or web address] documented as of this encounter Visit Diagnoses Not on filedocumented in this encounter Additional Health Concerns Infection Onset Date Last Indicated Resolved Time COVID-19 10/07/2023 10/07/2023 10/28/2023 1:21 AM EST Assessment Noted Time PHQ-2 Depression Total Score: 0 05/15/20 1:45 PM EDT documented as of this encounter Care Teams Benzene Operator Relationship Specialty Start Date End Date Johann Hanson CNP [address] [place] [address], [address] [place] [address] PCP - General Family Medicine 02/11/21 Lester Hicks MD [address] [place] [address] Historical LMR Provider 07/28/17 Margaux Montanez MD [address] [place] [address], [address] [place] [address] [email or web address] Historical LMR Provider 07/28/17 Khang Kilgore MD [address] [place] [address], [address] [place] [address] Insurance Assigned Provider 01/12/24 Luis Ignacio DO [address] [place] [address], [address] [place] [address] Cardiology 06/28/22 06/16/24 Flo Esteban MD [address] [place] [address] [email or web address] Cardiothoracic Surgery 06/28/22 06/16/24 Neisha Pinto RN [address] [place] [address] [email or web address] PHCM Bioinformatics Technician 02/26/23 06/10/25 Shreyas Wilson MD [address] [place] [address] Gastroenterology 06/17/24 Doretha Glynn MD [address] [place] [address] Endocrinology 06/17/24 Izzy Hackett [address] [place] [address] [email or web address] PHCM Community Animal Eviscerator 09/11/24 09/11/24 Radha Pereira RN [address] [place] [address] [email or web address] PHCM Bioinformatics TechnicianBroke Man 06/11/25 documented as of this encounter Additional Source Comments The information contained in this document represents components of the legal health record. It is not the complete legal health record.[facility]
--- OUTSIDE RECORDS SUMMARY | 2025-08-07 10:13 | XMS_ITS | Encounter Summary ---
Author Organization [facility] Address [address] [facility] [address] [place] [address] Phone Care Team Providers Care Cemetery Counselor Name Role Phone Lester Hicks MD Unavailable [phone] Margaux Montanez MD Unavailable Johann Hanson SNATH HANDLE ASSEMBLER Primary Care Provider [phone] Khang Kilgore MD Unavailable Shreyas Wilson MD Unavailable [phone] Doretha Glynn MD Unavailable [phone] Radha Pereira RN Unavailable [phone] Reason for Visit * Reason Onset Date Comments Lab sample 07/03/2025 Encounter Details Date Type Department Care Team (Late st Contact Info) Description 07/03/2025 Telephone [facility] [address] [place], [place] [phone] Johann Hanson, SNATH HANDLE ASSEMBLER 22 [facility] [place], [place] [phone] [email or web address] Lab sample Social History Tobacco Use Types [...] high school, GED, job training, learning the Portuguese language, technical skills, or developing parenting skills)? [...] I put a note in for front attendant not to charge a copay. * [...] when this should be done. Central Support Town Clerk (Please do not reply to this user; this inbox is not monitored.) Thank you. documented in this encounter Plan of Treatment Upcoming Encounters Date Type Department Care Team (Late st Contact Info) Description 08/24/2025 1:30 PM EST Office Visit [facility] [place] [address] [place] [address] Johann Hanson, SNATH HANDLE ASSEMBLER 22 [facility], [address] [place] [address] [email or web address] 09/10/2025 9:00 AM EST Office Visit [facility] Gastroenterology Clinic 10 [place] [address] Unknown, [place], Shreyas Limon MD [address] [address] 09/21/2025 2:30 PM EST Office Visit [facility] Pulmonary, Allergy and Critical Care Medicine 10 [place] [address] Lester Hicks MD [address] [place] [address] 10/13/2025 9:20 AM EST Office Visit [facility] [address] [place] [address] Doretha Glynn MD [address] [place] [address] [email or web address] 12/22/2025 8:30 AM EDT Office Visit [address] [place] [address] Johann Hanson, SNATH HANDLE ASSEMBLER [address] [place] [address], [address] [place] [address] [email or web address] 06/30/2026 8:00 AM EDT Office Visit [address] [place] [address] Johann Hanson, SNATH HANDLE ASSEMBLER [address] [place] [address], [address] [place] [address] [email or web address] documented as of this encounter Visit Diagnoses Not on filedocumented in this encounter Additional Health Concerns Assessment Noted Time PHQ-9 Depression Total Score: 4 10/29/19 24 1:54 PM EST PHQ-2 Depression Total Score: 0 06/23/20 25 12:32 PM EDT documented as of this encounter Care Teams Cemetery Counselor Relationship Specialty Start Date End Date Johann Hanson CNP [address] [place] [address], [address] [place] [address] PCP - General Family Medicine 02/11/21 Lester Hicks MD [address] [place] [address] [email or web address] Historical LMR Provider 07/28/17 Margaux Montanez MD [address] [place] [address], [address] [place] [address] [email or web address] Historical LMR Provider 07/28/17 Khang Kilgore MD [address] [place] [address], [address] [place] [address] Insurance Assigned Provider 01/12/24 Shreyas Wilson MD [address] [place] [address] Gastroenterology 06/17/24 Doretha Glynn MD [address] [place] [address] Endocrinology 06/17/24 Radha Pereira, RN [address] [place] [address] [email or web address] PHCM CrttsPressure Control Supervisor 06/11/25 documented as of this encounter Additional Source Comments The information contained in this document represents components of the legal health record. It is not the complete legal health record.[facility]
--- OUTSIDE RECORDS SUMMARY | 2025-08-07 10:13 | XMS_ITS | Encounter Summary ---
Author Organization [facility] Address [address] [place] [address] [place] [address] Phone Care Team Providers Care Pole Setter Name Role Phone Tricia Balderas DO Unavailable Lester Hicks MD Unavailable [phone] Margaux Montanez MD Unavailable Demario Floyd MD Unavailable Pam Benson MD Unavailable [phone] Adithya Campos DELICATESSEN MANAGER Unavailable Beatriz Donaldson ADOLESCENT MEDICINE SPECIALIST Unavailable Beatriz Donaldson ADOLESCENT MEDICINE SPECIALIST Primary Care Provider Mamta Whitney DO Primary Care Provider [phone] Mamta Whitney DO Primary Care Provider [phone] Johann Hanson DELICATESSEN MANAGER Primary Care Provider [phone] Khang Kilgore MD Unavailable Luis Ignacio DO Unavailable Flo Esteban MD Unavailable Dilan Rowland MD Unavailable [phone] Corby Prado MD Unavailable [phone] Neisha Pinto RN Unavailable [email or web address] Shreyas Wilson MD Unavailable Doretha Glynn MD Unavailable [phone] Izzy Hackett Unavailable sami Radha Pereira RN Unavailable [phone] Encounter Details Date Type Department Care Team (Late st Contact Info) Description 01/10/2019 Procedure Pass [facility] Cardiovascular And Interventional Radiology 30 [place] [address] Social History Tobacco Use Types Packs/Day Years [...] Description 08/24/2025 1:30 PM EST Office Visit [address] [address] Johann Hanson, DELICATESSEN MANAGER 22 [facility], [address] [place] [address] [email or web address] 09/10/2025 9:00 AM EST Office Visit [facility] Gastroenterology Clinic 10 [place] [address] Unknown, Unknown, Shreyas Limon MD [address] [id number] 09/21/2025 2:30 PM EST Office Visit [facility] Pulmonary, Allergy and Critical Care Medicine 10 [facility] [place] [address] Lester Hicks MD [address] [place] [address] 10/13/2025 9:20 AM EST Office Visit [facility] [address] [place] [address] [place] [address] Doretha Glynn MD [address] [place] [address] [email or web address] 12/22/2025 8:30 AM EDT Office Visit [address] [place] [address] Johann Hanson, DELICATESSEN MANAGER [address] [place] [address], [address] [place] [address] [email or web address] 06/30/2026 8:00 AM EDT Office Visit [address] [place] [address] Johann Hanson, DELICATESSEN MANAGER [address] [place] [address], [address] [place] [address] [email or web address] documented as of this encounter Visit Diagnoses Not on filedocumented in this encounter Additional Health Concerns Infection Onset Date Last Indicated Resolved Time CoV-Presumed 05/27/2022 05/27/2022 06/17/2022 1:21 AM EDT CoV-Presumed Comment:COVID-19 Added 10/12/2022 10/12/2022 10/13/2022 6:26 P M EST COVID-19 10/13/2022 10/13/2022 11/03/2022 1:21 AM EST COVID-19 10/07/2023 10/07/2023 10/28/2023 1:21 AM EST documented as of this encounter Care Teams Pole Setter Relationship Specialty Start Date End Date Beatriz Donaldson, ADOLESCENT MEDICINE SPECIALIST [address] [place] [address] PCP - General Family Medicine 10/04/17 04/11/20 Mamta Whitney DO [address] [place] [address] [email or web address] PCP - General Family Medicine 04/12/20 02/08/21 Mamta Whitney DO [address] [place] [address] [email or web address] PCP - General Family Medicine 02/10/21 02/10/21 Johann Hanson CNP [address] [place] [address], [address] [place] [address] [email or web address] PCP - General Family Medicine 02/11/21 Tricia Balderas DO [address] [place] [address] [email or web address] Historical LMR Provider 07/28/17 10/15/21 Lester Hicks MD [address] [place] [address] [email or web address] Historical LMR Provider 07/28/17 Margaux Montanez MD [address] [place] [address], [address] [place] [address] [email or web address] Historical LMR Provider 07/28/17 Demario Floyd MD [address] [place] [address] [email or web address] Historical LMR Provider 07/28/17 10/15/21 Pam Benson MD [address] [place] [address] [email or web address] Historical LMR Provider 07/28/17 10/15/21 Adithya Campos, DELICATESSEN MANAGER [address] [place] [address] [email or web address] Historical LMR Provider 07/28/17 12/25/21 Beatriz Donaldson NP [address] [place] [address] Historical LMR Provider 07/28/17 04/11/20 Khang Kilgore MD [address] [place] [address], [address] [place] [address] [email or web address] Insurance Assigned Provider 01/12/24 Luis Ignacio DO [address] [place] [address], [address] [place] [address] [email or web address] Cardiology 06/28/22 06/16/24 Flo Esteban MD [address] [place] [address] [email or web address] Cardiothoracic Surgery 06/28/22 06/16/24 Dilan Rowland MD [address] [place] [address], [address] [place] [address] [email or web address] Insurance Assigned Provider 07/15/22 08/13/22 Corby Prado MD [address] [place] [address], [address] [place] [address] [email or web address] Insurance Assigned Provider 08/13/22 09/16/22 Neisha Pinto RN [address] [place] [address], [address] [place] [address] [email or web address] PHCM Immunologist 02/26/23 06/10/25 Shreyas Wilson MD [address] [place] [address] [email or web address] Gastroenterology 06/17/24 Doretha Glynn MD [address] [place] [address] [email or web address] Endocrinology 06/17/24 Izzy Hackett [address] [place] [address] [email or web address] PHCM Community Cassandra Consultant 09/11/24 09/11/24 Radha Pereira, RANDI [address] [place] [address] [email or web address] PHCM ImmunologistRoll Hand 06/11/25 documented as of this encounter Additional Source Comments The information contained in this document represents components of the legal health record. It is not the complete legal health record.[facility]
--- OUTSIDE RECORDS SUMMARY | 2025-08-07 10:13 | XMS_ITS | Encounter Summary ---
Author Organization [facility] Address [address] [place] [address] Phone Care Team Providers Care Plier Worker Name Role Phone Tricia Balderas DO Unavailable Lester Hicks MD Unavailable [phone] Margaux Montanez MD Unavailable Demario Floyd MD Unavailable Pam Benson MD Unavailable Adithya Campos GARMENT ALTERATION EXAMINER Unavailable Johann Hanson GARMENT ALTERATION EXAMINER Primary Care Provider [phone] Khang Kilgore MD Unavailable Luis Ignacio DO Unavailable Flo Esteban MD Unavailable [phone] Dilan Rowland MD Unavailable [phone] Corby Prado MD Unavailable [phone] Neisha Pinto RN Unavailable [email or web address] Shreyas Wilson MD Unavailable Doretha Glynn MD Unavailable [phone] Izzy Hackett Unavailable sami RandallRadha ARNDI Unavailable Encounter Details Date Type Department Care Team (Late Contact Info) Description 02/22/2021 Procedure Pass [facility] [address] [place] [address] Social History Tobacco Use Types Packs/Day Years [...] high school, GED, job training, learning the Gibraltarian language, technical skills, or developing parenting skills)? [...] Upcoming Encounters Date Type Department Care Team ([facility] [facility] Contact Info) Description 08/24/2025 1:30 PM EST Office Visit [place] [address] [place] [address] Johann Hanson CNP [address] [place] [address], [address] [place] [address] [email or web address] 09/10/2025 9:00 AM EST Office Visit [facility] Gastroenterology Clinic 10 [place] [address] Unknown, [place], Shreyas Limon MD [address] [address] 09/21/2025 2:30 PM EST Office Visit [facility] Pulmonary, Allergy and Critical Care Medicine [address] [facility] [place] [address] Lester Hicks MD [address] [place] [address] [address] [place] [address] 10/13/2025 9:20 AM EST Office Visit [facility] [address] [place] [address] [place] [address] Doretha Glynn MD [address] [place] [address] [address] [place] [address] [email or web address] 12/22/2025 8:30 AM EDT Office Visit [address] [place] [address] Johann Hanson CNP [address] [place] [address], [address] [place] [address] [email or web address] 06/30/2026 8:00 AM EDT Office Visit [address] [place] [address] Johann Hanson, GARMENT ALTERATION EXAMINER [address] [place] [address], [address] [place] [address] [email or web address] documented as of this encounter [...] documented as of this encounter Care Teams Plier Worker Relationship Specialty Start Date End Date Johann Hanson CNP [address] [place] [address], [address] [place] [address] [email or web address] PCP - General Family Medicine 02/11/21 Tricia Balderas DO [address] [place] [address] [email or web address] Historical LMR Provider 07/28/17 10/15/21 Lester Hicks MD [address] [place] [address] [email or web address] Historical LMR Provider 07/28/17 Margaux Montanez MD [address] [place] [address], [address] [place] [address] [email or web address] Historical LMR Provider 07/28/17 Demario Floyd MD [address] [place] [address] [email or web address] Historical LMR Provider 07/28/17 2 Pam Benson MD [address] [place] [address], [address] [place] [address] Historical LMR Provider 07/28/17 Adithya Campos, GARMENT ALTERATION EXAMINER [address] [address] Historical LMR Provider 07/28/17 12/25/21 Khang Kilgore MD [address] [place] [address], [address] [place] [address] Insurance Assigned Provider 01/12/24 Luis Ignacio DO [address] [place] [address], [address] [place] [address] Cardiology 06/28/22 06/16/24 Flo Esteban MD [address] [place] [address] [email or web address] Cardiothoracic Surgery 06/28/22 06/16/24 Dilan Rowland MD [address] [place] [address], [address] [place] [address] Insurance Assigned Provider 07/15/22 08/13/22 Corby Prado MD [address] [place] [address], [address] [place] [address] Insurance Assigned Provider 08/13/22 09/16/22 Neisha Pinto RN [address] [place] [address], [address] [place] [address] [email or web address] PHCM Sports Photographer 02/26/23 06/10/25 Shreyas Wilson MD [address] [place] [address] Gastroenterology 06/17/24 Doretha Glynn MD [address] [place] [address] [address] [place] [address] Endocrinology 06/17/24 Izzy Hackett [address] [place] [address] [email or web address] PHCM Community Service Inspector 09/11/24 09/11/24 Radha Pereira, RANDI [address] [place] [address] PHCM Sports PhotographerSql Ssrs Ssis Developer 06/11/25 documented as of this encounter Additional Source Comments The information contained in this document represents components of the legal health record. It is not the complete legal health record.[facility]
--- OUTSIDE RECORDS SUMMARY | 2025-08-07 10:13 | XMS_ITS | Encounter Summary ---
Author Organization [facility] Address [address] [place] [address] Phone Care Team Providers Care Change Over Name Role Phone Lester Hicks MD Unavailable [phone] Margaux Montanez MD Unavailable [phone] Johann Hanson CNP Primary Care Provider [phone] Khang Kilgore MD Unavailable [phone] Neisha Pinto RN Unavailable [email or web address] Shreyas Wilson MD Unavailable [phone] Doretha Glynn MD Unavailable [phone] Izzy Hackett Unavailable [email or web address] Radha Pereira RN Unavailable [phone] Encounter Details Date Type Department Care Team (Late st Contact Info) Description 06/17/2024 Procedure Pass [address] [address] Social History Tobacco Use Types Packs/Day Years [...] 08/24/2025 1:30 PM EST Office Visit [address] [place] [address] Johann Hanson, FAMILY SUPPORT COORDINATOR [address] [facility] [place] [address] [email or web address] 09/10/2025 9:00 AM EST Office Visit [facility] 10 [place] [address] Unknown, Unknown, Shreyas Limon MD [address] [place] [address] 09/21/2025 2:30 PM EST Office Visit [facility] 10 [place] [address] Lester Hicks MD [address] [place] [address] 10/13/2025 9:20 AM EST Office Visit [facility] [address] [place] [address] Doretha Glynn MD [address] [place] [address] [email or web address] 12/22/2025 8:30 AM EDT Office Visit [address] [place] [address] Johann Hanson CNP [address] [facility], [address] [place] [address] [email or web address] 06/30/2026 8:00 AM EDT Office Visit [facility] 22 [place] [address] Johann Hanson CNP 22 [facility] [place] [address] [email or web address] documented as of this encounter Visit Diagnoses Not on filedocumented in this encounter Additional Health Concerns Assessment Noted Time PHQ-9 Depression Total Score: 4 10/29/19 24 1:54 PM EST PHQ-2 Depression Total Score: 0 06/23/20 25 12:32 PM EDT documented as of this encounter Care Teams Change Over Relationship Specialty Start Date End Date Johann Hanson CNP [address] [place] [address], [address] [place] [address] PCP - General Family Medicine 02/11/21 Lester Hicks MD [address] [place] [address] Historical LMR Provider 07/28/17 Margaux Montanez MD [address] [place] [address], [address] [place] [address] Historical LMR Provider 07/28/17 Khang Kilgore MD [address] [place] [address], [address] [place] [address] Insurance Assigned Provider 01/12/24 Neisha Pinto, RANDI [address] [facility], [address] [place] [address] [email or web address] PHCM Hoisting Engine Operator 02/26/23 06/10/25 Shreyas Wilson MD [address] [place] [address] Gastroenterology 06/17/24 Doretha Glynn MD [address] [place] [address] [address] [place] [address] Endocrinology 06/17/24 Izzy Hackett [address] [place] [address] [email or web address] PHCM Community Sql Etl Developer 09/11/24 09/11/24 Radha Pereira RN [address] [place] [address] PHCM Hoisting Engine OperatorHazardous Materials Handler 06/11/25 documented as of this encounter Additional Source Comments The information contained in this document represents components of the legal health record. It is not the complete legal health record.[facility]
--- OUTSIDE RECORDS SUMMARY | 2025-08-07 10:13 | XMS_ITS | Encounter Summary ---
Author Organization [facility] Address [address] [facility] [address] [place] [address] Phone Care Team Providers Care College Director Name Role Phone Lester Hicks MD Unavailable [phone] Margaux Montanez MD Unavailable [phone] Johann Hanson ASSOCIATE PROFESSOR OF SURGERY Primary Care Provider [phone] Khang Kiglore MD Unavailable Shreyas Wilson MD Unavailable [phone] Doretha Glynn MD Unavailable [phone] Radha Pereira RN Unavailable [phone] Encounter Details Date Type Department Care Team (Late st Contact Info) Description 07/23/2025 Orders Only [facility] [place] [facility] [address] [place] [address] Johann Hanson, ASSOCIATE PROFESSOR OF SURGERY [address] [facility], [address] [place], [place] [id number] [email or web address] Essential hypertension; Encounter for medication [...] Description 08/24/2025 1:30 PM EST Office Visit [address] [place] [address] Johann Hanson, ASSOCIATE PROFESSOR OF SURGERY [address] [facility] [place] [address] [email or web address] 09/10/2025 9:00 AM EST Office Visit [facility] 10 [place] [address] Unknown, [place], Shreyas Limon MD [address] [place] [address] 09/21/2025 2:30 PM EST Office Visit [facility] 10 [facility] [place] [address] Lester Hicks MD [address] [place] [address] 10/13/2025 9:20 AM EST Office Visit [facility] [address] [place] [address] Doretha Glynn MD [address] [place] [address] [email or web address] 12/22/2025 8:30 AM EDT Office Visit [address] [place] [address] Johann Hanson CNP [address] [facility], [address] [place] [address] [email or web address] 06/30/2026 8:00 AM EDT Office Visit [facility] [address] [place] [address] Johann Hanson CNP [address] [facility], [address] [place] [address] [email or web address] documented as of this encounter Visit Diagnoses Diagnosis Essential hypertension Unspecified essential hypertension Encounter for medication monitoring Encounter for therapeutic drug monitoring documented in this encounter Additional Health Concerns Assessment Noted Time PHQ-9 Depression Total Score: 4 10/29/19 24 1:54 PM EST PHQ-2 Depression Total Score: 0 06/23/20 25 12:32 PM EDT documented as of this encounter Care Teams College Director Relationship Specialty Start Date End Date Johann Hanson CNP [address] [facility], [address] [place] [address] PCP - General Family Medicine 02/11/21 Lester Hicks MD [address] [place] [address] Historical LMR Provider 07/28/17 Margaux Montanez MD [address] [place] [address], [address] [place] [address] Historical LMR Provider 07/28/17 Khang Kilgore MD [address] [place] [address], [address] [place] [address] [email or web address] Insurance Assigned Provider 01/12/24 Shreyas Wilson MD [address] [place] [address] Gastroenterology 06/17/24 Doretha Glynn MD [address] [place] [address] Endocrinology 06/17/24 Radha Pereira RN [address] [place] [address] [email or web address] PHCM [employer] PrinterSocial Media Executive 06/11/25 documented as of this encounter Additional Source Comments The information contained in this document represents components of the legal health record. It is not the complete legal health record.[facility]
== END 2025-08-07 09:16 | disposition home or self-care (01) ==
LOC: HO.CT 09:15
PROVIDERS: PCP Nurse Practitioner Adult Health; Visit Provider Orthopaedic Surgery
DX: M17.12 Unilateral primary osteoarthritis, left knee (principal)
CPT/HCPCS: 73700

== ENCOUNTER → 2025-08-07 09:16 | Outpatient (BNV) | payer OTHER, SELFPAY | PROVIDERS: PCP Nurse Practitioner Adult Health; Visit Provider Radiology Diagnostic Radiology | DX: M17.12 Unilateral primary osteoarthritis, left knee (principal) | CPT/HCPCS: 73700 ==

== ENCOUNTER 2025-08-19 14:21 | Outpatient (AMB) | payer OTHER, SELFPAY ==
--- OUTSIDE RECORDS SUMMARY | 2021-10-10 17:00 | XMS_ITS | Encounter Summary ---
Author Organization [facility] Address [address] [place] [address] [place] [address] Phone Care Team Providers Care Heat Regulator Name Role Phone Tricia Balderas Unavailable Lester Hicks MD Unavailable [phone] Margaux Montanez MD Unavailable Demario Floyd MD Unavailable Pam Benson MD Unavailable Adithya Campos MEDICAL RECORDS LIBRARY PROFESSOR Unavailable Johann Hanson CNP Primary Care Provider [phone] Encounter Details Date Type Department Care Team (Late st Contact Info) Description 10/10/2021 5:00 PM EST Hospital Encounter [facility] [address] [place] [address] Natacha Hernandez CNP 12 [place], [place] [id number] Social History Tobacco Use Types Packs/Day Years Used Date Smoking Tobacco: Never Smokeless Tobacco: Never Alcohol Use Standard Drinks/Week Comments No 0 (1 standard drink = 0.6 oz pur e alcohol) (2024) Child or Family Care Answer Date Record ed Do you have problems with on e of the following making it difficult for you to work, study, or receive health care? No 06/23/2025 Education Answer Date Recorded Are you interested in help w ith more adult education (for example, completing high school, GED, job training, learning the [place] language, technical skills, or developing parenting skills)? No 06/23/2025 Are you concerned about learning? Not on file 06/23/2025 No 06/23/2025 Yes 06/23/2025 Food Answer Date Recorded Within the past 6 months we worried whether our food would run out before we got money to buy more. Never True 06/23/2025 Within the past 6 months the food we bought just didn't last and we didn't have enough money to get more. Never True Residential Stability Answer Date Recor ded What is your housing situation today? I have vinicius sing 06/23/2025 How many times have you move d in the past 12 months? Zero (I did not move) 06/23/2025 Paying for Meds Answer Date Recorded Do you have trouble paying for medicines? No 06/23/2025 Paying Utility Bills Answer Date Record ed Do you have trouble paying your heating or elect ricity bill? No 06/23/2025 Transportation Answer Date Recorded Has the lack of transportati on kept you from medical appointments or from getting medications? No 06/23/2025 Unemployment Answer Date Recorded Are you currently unemployed or working on a part-time or temporary basis, and looking for work? No 12/31/2022 Digital Access Answer Date Recorded No 06/23/2025 Yes 06/23/2025 Do you have reliable internet access at home? Ye s 06/23/2025 Do you have a device (e.g., phone, tablet, computer) with a working camera? Yes 06/23/2025 Intimate Partner Violence Answer Date R ecorded Denied Basic Needs Not on file 06/23/2025 In the past 12 months have y ou been in a relationship with a person who hurts, threatens, or tries to control you? No 06/23/2025 Worried food would run out Not on file 06/23 In the past 12 months have y ou been in a relationship with a person who hurts, threatens, or tries to control you? No 06/23/2025 Comments No Sex and Gender Information Value Date Recorded Sex Assigned at Female 06/26/2019 4:54 PM EDT Legal Sex Female 5:30 PM EST Gender Identity Female 06/26/2019 4:54 PM EDT Sexual Orientation Straight 06/26/2019 4: 54 PM EDT documented as of this encounter Functional Status * Calculated C-SSRS Risk Score (Lifetime/Recent) Answer Date of Assessment Author No Risk Indicated 12/07/2022 9:18 AM Alise Hamilton RN * [place] Suicide Severity Rating Scale (Screener/Recent Self-Report) Question Answer Date of Assessment Author 1. Wish to be (Past 1 Month) No 023 9:18 AM Alise Lindo RN 2. Non-Specific Active Suici ronald Thoughts (Past 1 Month) No 12/07/2022 9:18 AM Alise Lindo RN 6. Suicidal Behavior (Lifetime) No 9:18 AM Alise Lindo RN documented as of this encounter Plan of Treatment Upcoming Encounters Date Type Department Care Team (Late st Contact Info) Description 08/24/2025 1:30 PM EST Office Visit [facility] [address] [place] [address] Johann Hanson, MEDICAL RECORDS LIBRARY PROFESSOR [address] [place] [address], [address] [place] [address] [email or web address] 09/10/2025 9:00 AM EST Office Visit [facility] 10 [place] [address] Unknown, Unknown, Shreyas Limon MD [address] [place] [address] 09/21/2025 2:30 PM EST Office Visit [facility] 10 [facility] [place] [address] Lester Hicks MD [address] [place] [address] 10/07/2025 7:15 AM EST Appointment [facility] 30 [place] [address] Lester Hicks MD [address] [place] [address] 10/13/2025 9:20 AM EST Office Visit [facility] [address] [place] [address] Doretha Glynn MD [address] [place] [address] [email or web address] 12/22/2025 8:30 AM EDT Office Visit [address] [place] [address] Johann Hanson, MEDICAL RECORDS LIBRARY PROFESSOR [address] [place] [address], [address] [place] [address] [email or web address] 06/30/2026 8:00 AM EDT Office Visit [address] [place] [address] Johann Hanson, MEDICAL RECORDS LIBRARY PROFESSOR [address] [place] [address], [address] [place] [address] [email or web address] documented as of this encounter Procedures Procedure Name Priority Date/Time Associated Diagnosis Comments XR LUMBOSACRAL SPINE 4 OR MORE VIEWS Urgent/patient waiting 10/10/2021 5:25 PM EST Acute bilateral low back pain without sciatica documented in this encounter Results * XR LUMBOSACRAL SPINE 4 OR MORE VIEWS (10/10/2021 5:25 PM EST) Anatomical Region Laterality Modality L-spine Computed Radiogr aphy 10/10/2021 5:38 PM EST Impressions 10/10/2021 5:44 PM EST Maintained vertebral body heights. Increased anterolisthesis of L4 on L5 since 2008, likely secondary to facet degenerative changes. Narrative 10/10/2021 5:44 PM EST XR LUMBOSACRAL SPINE 4 OR MORE VIEWS COMPARISON: Lumbar spine FINDINGS: Normal vertebral body heights. 9 mm anterolisthesis of L4 on L5 has increased since 2008. There are associated facet degenerative changes. Mild scattered degenerative changes, particularly in the lower thoracic spine. Possible mild anterior wedging of T11. Intact sacroiliac joints. Procedure Note Barry Polo MD, PhD - 10/10/2021 XR LUMBOSACRAL SPINE 4 OR MORE VIEWS COMPARISON: Lumbar spine FINDINGS: Normal vertebral body heights. 9 mm anterolisthesis of L4 on L5 hasincreased since 2008. There are associated facet degenerative changes.Mild scattered degenerative changes, particularly in the lower thoracicspine. Possible mild anterior wedging of T11. Intact sacroiliac joints. IMPRESSION: Maintained vertebral body heights. Increased anterolisthesis of L4 on E8glgly 2008, likely secondary to facet degenerative changes. Natacha Hernandez MEDICAL RECORDS LIBRARY PROFESSOR IMG XR SPINE Final Resul t documented in this encounter Visit Diagnoses Not on filedocumented in this encounter Additional Health Concerns Infection Onset Date Last Indicated Resolved Time CoV-Presumed 05/27/2022 05/27/2022 06/17/2022 1:21 AM EDT CoV-Presumed Comment:COVID-19 Added 10/12/2022 10/12/2022 10/13/2022 6:26 P M EST COVID-19 10/13/2022 10/13/2022 11/03/2022 1:21 AM EST COVID-19 10/07/2023 10/07/2023 10/28/2023 1:21 AM EST Assessment Noted Time PHQ-2 Depression Total Score: 0 05/16/20 21 2:09 PM EDT documented as of this encounter Care Teams Heat Regulator Relationship Specialty Start Date End Date Johann Hanson CNP [address] [facility], [address] [place] [address] [email or web address] PCP - General Family Medicine 02/11/21 Tricia Balderas DO [address] [place] [address] [email or web address] Historical LMR Provider 07/28/17 10/15/21 Lester Hicks MD [address] [place] [address] [email or web address] Historical LMR Provider 07/28/17 Margaux Montanez MD [address] [facility], [address] [place] [address] [email or web address] Historical LMR Provider 07/28/17 Demario Floyd MD [address] [place] [address] [email or web address] Historical LMR Provider 07/28/17 2 Pam Benson MD [facility], [address] [place] [address] Historical LMR Provider 07/28/17 Adithya Campos CNP [address] [place] [address], [address] [place] [address] [email or web address] Historical LMR Provider 07/28/17 12/25/21 documented as of this encounter Additional Source Comments The information contained in this document represents components of the legal health record. It is not the complete legal health record.[facility]
--- NOTE | 2025-08-19 14:34 | A.OFFVIS_ITS ---
Vital Signs 08/19/25 14:39 Height 5 ft 4 in Weight 188 lb BMI 32.3 Intake Visit Reasons: OV-Right knee pain/Limited Weight bearing Intake Note: Herlinda is a 65 year old female who presents today for a new problem visit to evaluate right knee. Patient reports her pain started over the weekend. Denies injury. Her pain is located at the anterior aspect of knee upon standing and with movement her pain radiates up her leg. No previous treatment. States that she is experiencing sciatica on her left side. Allergies celecoxib (From Celebrex) Allergy (Verified 08/19/25 14:38) Hives codeine Allergy (Verified 08/19/25 14:38) Vomiting cephalexin (From Keflex) Adverse Reaction (Verified 08/19/25 14:38) Unknown metoclopramide (From Reglan) Adverse Reaction (Verified 08/19/25 14:38) Agitated Medication List - Last Reconciled 08/19/25 by Venancio Portillo PA-C budesonide-formoterol 160-4.5 mcg/actuation inhalation ergocalciferol (vitamin D2) (Vitamin D2) 1,250 mcg PO QWEEK escitalopram oxalate 10 mg PO DAILY famotidine 40 mg PO BID [Folding Front Wheeled walker Duration: 99 days] folic acid PO gabapentin mg PO hydrochlorothiazide 25 mg PO DAILY hydroxychloroquine 200 mg PO BID ipratropium bromide intranasal levothyroxine 150 mcg PO DAILY lorazepam mg PO losartan 100 mg PO DAILY methotrexate sodium (PF) mg subcut QWEEK montelukast 10 mg PO DAILY ondansetron 4 mg PO Q8H 3 days pantoprazole 40 mg PO BID pilocarpine HCl mg PO sodium hyaluronate (viscosup) (Euflexxa) mg intra-articular tramadol 50 mg PO TID PRN trazodone 50 - 150 mg PO BEDTIME PRN triamcinolone acetonide 0.1% dental DAILY HPI HPI OV-Right knee pain/Limited Weight bearing: Details: 65 yo male presents to the office today for right knee pain. She is scheduled for LT TKA 10/20/25 with NE. Due to compensation the pain in the right knee is worsening and limiting her abilities to perform daily activities such as going up and downstairs. [facility], [facility] Medical History Sjogrens syndrome Lupus (systemic lupus erythematosus) Surgical History H/O hernia repair Review of Systems Const All systems reviewed & are unremarkable except as noted in HPI and below Physical Exam Vital Signs: BMI result Body Mass Index 32.3 Const General: cooperative and no acute distress Orientation/consciousness: patient oriented x3 Resp Effort & Inspection: normal respiratory effort and able to speak in complete sentences Cardio Peripheral pulses: Peripheral pulses 2+ throughout Neuro General: patient oriented x3 Extrem Other: Right knee normal to inspection there is no erythema or joint effusion. She has full range of motion with crepitus. Medial joint line tenderness. Calf is supple and nontender neurovascularly intact. Office Procedures AMB Joint Injection/Aspiration Joint Injection/Aspiration Primary Site: Right Knee Prep: site was prepped using aseptic technique, ethochloride spray was applied and injection warnings given Injected: 40 mg of, Decadron, with 3 mL of, 1% plain Lidocaine, 0.25% Bupivacaine and in the joint Approach Used: anterolateral Procedure: The patient tolerated the procedure well and there was some relief with the local anesthesia Coding - Glenohumeral/Tronchanteric Bursa/Intraarticular Procedure code (CPT) selection complete Results Reviewed Results Reviewed: Xrays were obtained in the office today and personally reviewed by me of the right knee show medial and pf oa Assessment & Plan Assessment & Plan (1) Osteoarthritis of right knee: Code(s): M17.11 - Unilateral primary osteoarthritis, right knee Category: Medical Plan: We discussed options today, which include steroid injection. The patient did consent to move forward with the right knee injection, which was tolerated well.? I recommended rest, ice and elevation and OTC antiinflammatories prn for discomfort. If symptoms persist over the next 6-8 weeks, they will contact our office, otherwise, prn Orders: Orders XR knee RT 3V Today M17.11 - Unilateral primary osteoarthritis, right knee Coding Level of Care Code Est Pt Level 3 (21530) Complex EM visit Add On G2211 Diagnoses Osteoarthritis of right knee M17.11 CPT Codes Coding - Joint 7: 18284 - Glenohumeral/Tronchanteric Bursa/Intraarticular ([id number])
[2025-08-19 14:39] VITALS: BMI 32.3
--- OUTSIDE RECORDS SUMMARY | 2025-08-19 17:48 | XMS_ITS | Clinical Summary ---
Author Organization [facility] Address [address] [place] [address] Phone Care Team Providers Care Engineering And Development Director Name Role Phone Lester Hicks MD Unavailable [phone] Margaux Montanez MD Unavailable [phone] Eunice Sanz CNP Primary Care Provider [phone] Khang Kilgore MD Unavailable [phone] Shreyas Murphy MD Unavailable Doretha Glynn MD Unavailable [phone] Radha Pereira RN Unavailable [phone] Allergies Active Allergy Reactions Criticality Noted [...] folic acid (FOLVITE) 1 MG tabletIndications :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, mcc, current use TAKE 1 TABLET BY MOUTH [...] HOURS NEEDED. 10.7 g 5 025 Active ipratropium (ATROVENT) 42 mcg (0.06 [...] (PLAQUENIL) 200 mg tabletIndications :Inflammatory arthritis,Methotr exate, mcc, current use,Primary osteoarthritis involving multiple joints,Sjogren's syndrome [...] 1 mL 27 x 1/2 SyrgIndications:M ethotrexate, watermaster, current use USE DIRECTED TO INJECT UNDER THE SKIN EVERY 7 DAYS 25 each 2 025 Active hydroCHLOROthiazi de 25 MG tabletIndications :Essential hypertension TAKE 1 TABLET BY MOUTH EVERY DAY 90 tablet 025 Active buPROPion (WELLBUTRIN XL) 150 MG [...] 1 mL 27 x 1/2 SyrgIndications:M ethotrexate, watermaster, current use Inject 1 each under the skin every 7 days. 25 each 1 024 2024 Discontinued hydroCHLOROthiazi de 25 MG tabletIndications :Essential hypertension TAKE 1 TABLET BY MOUTH EVERY DAY 90 tablet 025 2024 Discontinued gabapentin (NEURONTIN) 600 MG tabletIndications [...] gain. 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 Given active and chronic GI symptoms, I [...] pain and has an orthopedics consult at [facility] this week. She is up to date [...] her to contact Long COVID clinic at [facility] for advice. Mouth [...] recent labs from late July 2024 at [facility] quite stable on current regimen. Get labs [...] most recent labs from July 2024 at [facility] quite stable on current regimen. Get labs [...] thyroid hormone. Will communicate about labs through [place]. Reviewed symptoms of under and over replacement, patient to call if concerns. Follow-up in 6 months Assessment & Plan (04/23/2023 4:46 PM EDT): Establish care with endocrinology this fall as scheduled. For now, continue current dose of levothyroxine as last TSH was improved and she has not symptoms of over- or under-repletion. Assessment & Plan (07/22/2022 11:05 PM EDT): Close follow-up with treating client experience manager exactly as instructed to keep her thyroid function within the optimal range. Assessment & Plan (04/04/2022 11:15 AM EDT): Close follow-up with treating client experience manager exactly as instructed to keep her thyroid [...] therapy and follow-up as scheduled with her client experience manager. Assessment & Plan (08/22/2020 6:54 PM EST): Carefully continue current dose of thyroid replacements therapy and follow-up as scheduled with her client experience manager. Assessment & Plan (05/09/2020 4:52 PM EDT): Carefully continue current dose of thyroid replacements therapy and follow-up as scheduled with her client experience manager. Assessment & Plan (12/18/2019 11:01 AM EDT): [...] TSH on 08/08/2019 was suppressed at 0.05 PA U/mL. I do not know when her [...] 8:01 AM EDT): Daily sun protection. See toby maker as scheduled at least every 12 months.-Most recent checkup from February 2025 Free of signs of Plaquenil toxicity She is arranging for ophthalmologic checkup in the nearest future. Assessment & Plan (03/19/2025 9:53 AM EDT): Daily sun protection. See toby maker as scheduled at least every 12 months.-Most recent checkup from February 2025 Free of signs of Plaquenil toxicity She is arranging for ophthalmologic checkup in the nearest future. Assessment & Plan (12/18/2024 1:02 PM EDT): Daily sun protection. See toby maker as scheduled at least every 12 months. She is arranging for ophthalmologic checkup in the nearest future. Assessment & Plan (10/03/2024 7:03 PM EST): Daily sun protection. See toby maker as scheduled at least every 12 months. She is arranging for ophthalmologic checkup in the nearest future. Assessment & Plan (06/06/2024 12:49 PM EDT): Daily sun protection. See toby maker as scheduled at least every 12 months. She is arranging for ophthalmologic checkup in the nearest future. Assessment & Plan (03/23/2024 12:09 PM EDT): Daily sun protection. See toby maker as scheduled at least every 12 months. Assessment & Plan (11/28/2023 9:30 AM EST): Daily sun protection. See toby maker as scheduled at least every 12 months. Assessment & Plan (05/04/2023 2:51 PM EDT): Daily sun protection. See toby maker as scheduled at least every 12 months. Assessment & Plan (10/30/2022 3:44 PM EST): Daily sun protection. See toby maker as scheduled at least every 12 months. Assessment & Plan (06/28/2022 4:12 PM EDT): Daily sun protection. See toby maker as scheduled at least every 12 months. Assessment & Plan (04/04/2022 11:18 AM EDT): Daily sun protection. See toby maker as scheduled at least every 12 months. Assessment & Plan (12/07/2021 4:45 PM EST): Daily sun protection. See toby maker as scheduled. Assessment & Plan (09/08/2021 3:46 PM EST): Daily sun protection. See toby maker as scheduled. Assessment & Plan (05/25/2021 4:46 PM EDT): Daily sun protection. See toby maker as scheduled. Assessment & Plan (03/24/2021 11:21 AM EDT): Daily sun protection. See toby maker as scheduled. Assessment & Plan (01/12/2021 4:02 PM EDT): Daily sun protection. See toby maker as scheduled. Assessment & Plan (10/24/2020 9:02 PM EST): Daily sun protection. See toby maker as scheduled. Assessment & Plan (08/22/2020 6:55 PM EST): Daily sun protection. See toby maker as scheduled. Assessment & Plan (05/09/2020 4:54 PM EDT): Daily sun protection. See toby maker as scheduled. Assessment & Plan (03/28/2020 12:14 PM EDT): Daily sun protection. See toby maker as scheduled. Assessment & Plan (02/05/2020 10:49 AM EDT): Daily sun protection. See toby maker as scheduled. Assessment & Plan (09/11/2019 8:47 AM EST): Daily sun protection. See toby maker as scheduled. Assessment & Plan (07/08/2019 3:06 PM EDT): Daily sun protection. See toby maker as scheduled. Assessment & Plan (03/25/2019 10:21 AM EDT): Daily sun protection. See toby maker as scheduled. Assessment & Plan (12/23/2018 2:36 PM EDT): Daily sun protection. See toby maker as scheduled. Assessment & Plan (11/19/2018 8:58 PM EST): Daily sun protection. Warp Hanger as scheduled. Dry mouth 01/04/2018 Calculus of [...] and prior to next [facility]. Consider neurology consult regarding headaches and [...] safety and efficacy of therapy-[facility]. Assessment & Plan (03/19/2025 9:48 AM EDT): Clinically currently well-controlled except L knee, hands and neck soreness and stiffness particularly in the morning. Get labs monitoring safety and efficacy of therapy prior to next visit-[facility]. Consider neurology consult regarding headaches and [...] safety and efficacy of therapy-[facility]. Assessment & Plan (12/18/2024 10:06 PM EDT): Clinically currently well-controlled except L knee, hands and neck soreness and stiffness particularly in the morning. Get labs monitoring safety and efficacy of therapy today and prior to next visit-[facility]. Consider neurology consult regarding headaches and [...] safety and efficacy of therapy-[facility]. Assessment & Plan (06/17/2024 11:48 AM EDT): Follow up with Dr. Hicks for Sjogren's, asthma. Continue inhalers. Assessment & Plan (06/06/2024 12:47 PM EDT): Clinically currently well-controlled except L knee, hands and neck soreness and stiffness particularly in the morning. Get labs monitoring safety and efficacy of therapy today and prior to next visit-[facility]. Consider neurology consult regarding headaches and [...] safety and efficacy of therapy-[facility]. Assessment & Plan (03/14/2024 3:34 PM EDT): Clinically currently well-controlled. Get labs monitoring safety and efficacy of therapy prior to next visit-[facility]. Consider neurology consult regarding headaches and [...] therapy prior to next visit-[facility]. Consider neurology consult regarding headaches and [...] therapy today. Get yearly influenza vaccination by July 2019 and Shingrix vaccine. Consider neurology [...] undergo L TKR under spinal anesthesia at [facility] in October 2025. Call if worse [...] at least every 3-4 months-standing orders [facility]. Gentle, regular exercise routine. Avoid falls, [...] at least every 3-4 months-standing orders in [facility]. Gentle, regular exercise [...] at least every 3 months-[facility] orders [facility]. Gentle, regular exercise routine. Avoid falls, [...] at least every 3 months-[facility] orders [facility]. Gentle, regular exercise routine. Avoid falls, [...] Patient: Herlinda Mendez Saleem : 1960 Date: 06/06/2024 Assessment & Plan [...] Patient: Herlinda Vanessa Haskins : 1960 Date: 05/04/2023 Assessment & [...] MD Patient: Herlinda Haskins : 1960 Date: 03/20/2022 Assessment & Plan [...] therapy at least every 3 months. 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, mcc, current use 10/04/2017 Assessment & Plan (07/23/2025 [...] mixture of 1% lidocaine and 40 mg Ljkv-Mjcqkc-mkolom refer for details to procedure note below. [...] mixture of 1% lidocaine and 40 mg Qcap-Abpmtm-vowgtt refer for details to procedure note below. [...] mixture of 1% lidocaine and 40 mg Xwsh-Skyeak-hlpvan refer for details to procedure note below. [...] mixture of 1% lidocaine and 40 mg Ymrd-Xkjmtl-nfgmhc refer for details to procedure note below. 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 She agrees. [...] manifestation of SLE but will ask her wave soldering machine operator to weigh in. Unfortunately, the wait [...] one of the aspiration procedures. Improved-followed by window installer and silk screen painter. Assessment & Plan (06/17/2024 11:46 AM EDT): S/P repair 2022. Await EGD this week. Assessment & Plan (06/06/2024 12:52 PM EDT): Corrected surgically in November 2022 with subsequent pleural effusions, vasovagal reaction upon one of the aspiration procedures. Improved-followed by window installer and silk screen painter. Assessment & Plan (02/28/2022 4:42 PM EDT): [...] Encounters Date Type Department Care Team Description 08/13/[address] [place] [address] Eunice Sanz CNP Medication Refill 08/07/2025 Orders [place] [address] [place] [address] ProviderCesario MD 08/05/2025 Patient Outreach [facility] - Primary Care [address] [place] [address] Izzy Hackett Care Coordination (General outreach) 07/27/[address] [place] [address] Xiao Mckeon, RN Results 07/24/2025 Refill [facility] [address] [place] [address] [place] [address] Margaux Montanez MD Medication Refill 07/24/2025 Orders [place] [address] [place] [address] Eunice Sanz CNP 07/23/2025 8:00 AM EDT Office Visit [facility] [address] [place] [address] [place] [address] Margaux Montanez MD SLE-Sjogren overlap syndrome (Primary Dx); Sjogren's syndrome with lung involvement; Inflammatory arthritis; Primary osteoarthritis involving multiple joints; 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, mcc, current use; Long-term use of Plaquenil; Fibromyalgia; Gastroesophageal reflux disease with esophagitis without hemorrhage; Vitamin D insufficiency; PTSD (post-traumatic stress disorder); On selective serotonin reuptake inhibitor (SSRI) therapy; Class 1 obesity due to excess calories with serious comorbidity and body mass index (BMI) of 31.0 to 31.9 in adult 07/23/2025 Orders [place] [address] [place] [address] Eunice Sanz CNP Essential hypertension; Encounter for medication monitoring 07/22/2025 1:30 PM EDT Office Visit [address] [place] [address] Eunice Sanz CNP Screening for malignant neoplasm of cervix (Primary Dx); Primary osteoarthritis of both knees 07/16/2025 Telephone [facility] [address] [place] [address] Lester Hicks MD Appointment 07/06/2025 Enrollment [facility] - Primary Care [address] [place] [address] 07/06/2025 Refill [facility] [address] [place] [address] Lester Hicks MD Medication Refill 07/03/[address] [place] [address] Eunice Sanz CNP Lab sample 06/25/2025 7:33 AM EDT - 06/25/2025 11:59 PM EDT Hospital Encounter [facility] [address] [place] [address] Eunice Sanz CNP Discharge Disposition: Home or Self Care 06/24/2025 8:00 AM EDT Office Visit [address] [place] [address] Eunice Sanz CNP Encounter for general adult [...] Needs flu shot; Immunization counseling 06/18/[address] [place] [address] Eunice Sanz CNP Medication Refill 06/05/2025 Refill [facility] [address] [place] [address] [place] [address] Margaux Montanez MD Medication Refill 06/01/2025 Patient Outreach [facility] [address] [place] [address] Neisha Pinto, RANDI Care Coordination ([facility] Follow up outreach, [facility] transition letter ) 05/25/[address] [place] [address] Eunice Sanz CNP Medication Refill 05/25/2025 Telephone [facility] [address] [place] [address] [place] [address] Margaux Montanez MD 05/22/2025 Telephone [facility] [address] [place] [address] [place] [address] Margaux Montanez MD 06/17/2024 Procedure Pass [address] [address] from Last 3 Months Immunizations Immunization Administration [...] high school, GED, job training, learning the Hungarian language, technical skills, or developing parenting skills)? [...] Description 08/24/2025 1:30 PM EST Office Visit [facility] [address] [place] [address] Eunice Sanz, REED POLISHER [address] [facility], [address] [place] [address] [email or web address] 09/10/2025 9:00 AM EST Office Visit [facility] [address] [place] [address] Unknown, Unknown, Shreyas Limon MD [address] [place] [address] 09/21/2025 2:30 PM EST Office Visit [facility] [address] [place] [address] Lester Hicks MD [address] [place] [address] 10/07/2025 7:15 AM EST Appointment [facility] [address] [place] [address] Lester Hicks MD [address] [place] [address] 10/13/2025 9:20 AM EST Office Visit [facility] [address] [place] [address] Doretha Glynn MD [address] [place] [address] [email or web address] 12/22/2025 8:30 AM EDT Office Visit [address] [place] [address] Eunice Sanz, REED POLISHER [address] [place] [address], [address] [place] [address] [email or web address] 06/30/2026 8:00 AM EDT Office Visit [address] [place] [address] Eunice Sanz, REED POLISHER [address] [place] [address], [address] [place] [address] [email or web address] Health Maintenance Due Date Last [...] on patient's age to complete this topic IPV VACCINES Aged Out No longer eligi ble based on patient's age to complete this topic MENINGOCOCCAL VACCINES (ACWY) Aged Out No longer eligible based on patient's age to complete this topic MENINGOCOCCAL VACCINES (B) Aged Out N o longer eligible based on patient's age to complete this topic Medical Devices Not on file Procedures Procedure Name Priority Date/Time Associated Diagnosis Comments OUTSIDE IMAGING Routine 08/07/2025 4:14 PM EDT OUTSIDE ECHO Routine 07/22/2025 8:44 AM EDT PAP TEST Routine 07/22/2025 12:00 AM EDT BI MAMMOGRAM SCREENING WITH TOMOSYNTHESIS WITH CAD (BILATERAL) Routine 06/25/2025 7:54 AM EDT Screening breast examination ECG 12-LEAD Routine 06/24/2025 8:21 AM EDT Encounter for medication monitoring PAP TEST Routine 06/24/2025 12:00 AM EDT COMPREHENSIVE METABOLIC PANEL (CMP) Routine 05/14/2025 3:12 PM EDT SLE-Sjogren overlap syndrome Sjogren's syndrome with lung involvement Inflammatory arthritis 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, mcc, current use BASIC METABOLIC PANEL (BMP) STAT 03/12/2025 6:10 AM EDT THYROID STIMULATING HORMONE (TSH) Routine 12/10/2024 4:12 PM EST Hypothyroidism due [...] Relevant to Health Maintenance Results * Outside Imaging Report Only (08/07/2025 4:14 PM EDT) us Historical Provider MD MOSS XR CHEST Final Res ult * Outside Echo Report Only (07/22/2025 8:44 AM EDT) us Eunice Sanz REED POLISHER CV ECHO ORDERABLES Final Result * Pap Test (07/22/2025 12:00 AM EDT) Only the most recent of2 resultswithin the time period is included. 07/22/2025 07/23/2025 9:2 3 AM EDT Narrative SEE NARRATIVE - 07/30/2025 1:38 PM EDT [address] [address] Felt Tipping Machine Tender: Dilan Sams MD PROGRAM MANAGER Cytology Report FINAL DIAGNOSIS A. PAP SMEAR (THIN PREP) CE: SPECIMEN ADEQUACY: Satisfactory for evaluation; limited squamous cellularity. Limited by inflammation INTERPRETATION: NEGATIVE FOR INTRAEPITHELIAL LESION OR MALIGNANCY. This specimen was analyzed by the automated ThinPrep Imaging System ([employer].) and manually rescreened by a trust officer and/or pathologist. Electronically Signed Out By: BRITT [...] : 1960 (Age: 65) Sex: F Institution: [facility] Location: [facility] Date of Collection: 07/22/2025 Date of Reported: 07/30/2025 13:38 Results to: Eunice Sanz MSN Eunice Sanz [facility] CYTOLOGY ORDERABLES Final Result SEE NARRATIVE [...] AM EDT Type of EKG: Standard. Global (61370). Notes Sinus rhythm. QTc 450 ms, up from 433 in 2022. Slight left precordial repolarization disturbance. No ST/T wave changes. Echo ordered. Eunice Sanz CNP ECG ORDERABLES Edited Re sult - Final EXTERNAL NON-INTERFACED REF LAB * Comprehensive metabolic panel (05/14/2025 3:12 PM EDT) Blood Margaux Montanez MD LAB BLOOD BKR ORDERABLES Final Result Performing Organization Address [facility] de Phone Number EXTERNAL NON-INTERFACED REF LAB * Basic metabolic panel (03/12/2025 6:10 AM EDT) SODIUM 142 136 - 145 mmol/L [facility] POTASSIUM 3.4 3.4 - 5.1 mmol/L [facility] CHLORIDE 103 98 - 107 mmol/L [facility] CO2 31 22 - 31 mmol/L [facility] BUN 11 6 - 23 mg/dL [facility] CREATININE 0.80 0.50 - 1.20 mg/dL [facility] GLUCOSE 84 70 - 100 mg/dL [facility] CALCIUM 9.7 8.8 - 10.7 mg/dL [facility] EGFR 83 >59 mL/min/1.7 3m2 [facility] Comment:Estimated glomerular filtration rate calculated using the CKD-EPI refit equation. ANION GAP 8 7 - 17 mmol/L [facility] 03/12/2025 6:10 AM EDT 03/12/2025 6:48 AM EDT us Lj Moscoso MD, MPH LAB BLOOD BKR ORDERABLES Fi nal Result Performing Organization Address [facility] de Phone Number [facility] [address] [place] [address] * TSH (12/10/2024 4:12 PM EST) Blood us Doretha Glynn MD LAB BLOOD BKR ORDERABLES Final Result Performing Organization Address [facility] de Phone Number EXTERNAL NON-INTERFACED REF LAB * ENDOSCOPY, COLON (06/20/2024 9:51 AM EDT) Narrative Transcriptions Shreyas Murphy MD - 06/20/2024 9:51 AM EDT [facility] Patient Name: Herlinda Haskins Attending MD:: SHREYAS MURPHY MD, Procedure Date: 06/20/2024 9:51 AM Date of : 1960 Age: 64 Admit Type: Outpatient Gender: Female Room: [facility] 05 Referring MD: EUNICE SANZ Exam Type: [...] 9:51 AM Procedure Code(s): --- Professional --- 59471, Colonoscopy, flexible; with biopsy, single or multiple --- Technical --- 68310, Colonoscopy, flexible; with biopsy, single or multiple Diagnosis Code(s): --- Professional --- K52.9, Noninfective gastroenteritis and colitis, unspecified --- Technical --- K52.9, Noninfective gastroenteritis and colitis, unspecified CPT copyright 2021 [employer]. All rights reserved. The codes documented in this report are preliminary and upon online program coordinator reviewmay be revised to meet current compliance requirements. Procedure Date: 06/20/2024 9:51:[address] [place] [address] Eunice Sanz [facility] GI PROCEDURE ORDERABLES F inal Result * (ABNORMAL) Lipid panel (12/08/2020 4:37 PM EST) HDL 60 mg/dL [facility] Comment: Interpretation <40 mg/dL: Low HDL cholesterol (major risk factor for CHD) Greater than or equal to 60 mg/dL: High HDL cholesterol ( negative risk factor for CHD) HDL - cholesterol is affected by a number of factors, e.g. smoking, excerise, hormones, sex and age. CHOLESTEROL 192 0 - 240 mg/dL [facility] TRIGLYCERIDES 139 30 - 160 mg/dL [facility] LDL 104 50 - 129 mg/dL [facility] Comment: LDL levels in terms of risk for coronary heart disease: <100 mg/dL: Optimal 100-129 mg/dL: Near or above optimal 130-159 mg/dL: Borderline high 160-189 mg/dL: High >190 mg/dL: Very High CARDIAC RISK RATIO 3.2(L) 3.3 - 4.4 C [facility] Blood 12/08/2020 4:37 PM EST 12/08/2020 4:45 PM EST Mamta Whitney DO LAB BLOOD BKR ORDERABLES F inal Result Performing Organization Address [facility]/ZIP Co de Phone Number [address] [address] * Fecal immunochemical test x1 (FIT) (04/15/2020 8:00 AM EDT) Immuno Fecal Occult Negative [facility] Stool (Stool) 04/15/2020 8:0 0 AM EDT 04/15/2020 4:23 PM EDT Alise Winkler PA-C LAB BODY FLUIDS AND STOOL ORDER AZUL Final Result Performing Organization Address [facility] Co de Phone Number [address] [address] * Outside Hepatitis C Virus Screening (07/14/2014) Hepatitis C Screening - External Neg Historical Provider LAB BLOOD ORDERABLES Ibis l Result * OUTSIDE HIV TEST (07/14/2014) HIV - External Neg Historical Provider LAB BLOOD ORDERABLES Ibis l Result from Last 3 Months or Most Recently Relevant to Health Maintenance Insurance [employer]MIN[employer]AT[employer]MINISTRATORS [facility] ADMINISTRATORS [facility] ADMINISTRATORS Advance Directives For more information, please contact: [phone] (9AM - 5PM [facility], Sunday-Sunday) Documents on File Type Date Recorded 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 11/21/2022 3:55 PM [...] Code Status Confirmed With: Patient Care Teams Engineering And Development Director Relationship Specialty Start Date End Date Eunice Sanz CNP [address] [place] [address], [address] [place] [address] [email or web address] PCP - General Family Medicine 02/11/21 Lester Hicks MD [address] [place] [address] Historical LMR Provider 07/28/17 Margaux Montanez MD [address], [address] [place] [address] [email or web address] Historical LMR Provider 07/28/17 Khang Kilgore MD [address] [facility] [place] [address] [email or web address] Insurance Assigned Provider 01/12/24 Shreyas Murphy MD [address] [place] [address] [email or web address] Gastroenterology 06/17/24 Doretha Glynn MD [address] [place] [address] [address] [place] [address] Endocrinology 06/17/24 Radha Pereira, RN [address] [place] [address] [email or web address] PHC On Site Wastewater Systems TechnicianAgronomy Instructor 06/11/25 Additional Source Comments The information contained in this document represents components of the legal health record. It is not the complete legal health record.[facility]
--- OUTSIDE RECORDS SUMMARY | 2025-08-19 17:48 | XMS_ITS | Encounter Summary ---
Author Organization [facility] Address [address] [place] [address] Phone Care Team Providers Care Shift Supervisor Film Processing Name Role Phone Lester Hicks MD Unavailable [phone] Margaux Montanez MD Unavailable Johann Hanson CNP Primary Care Provider [phone] Khang Kilgore MD Unavailable Luis Ingacio DO Unavailable [phone] Flo Esteban MD Unavailable [phone] Neisha Pinto RN Unavailable [email or web address] Shreyas Wilson MD Unavailable [phone] Doretha Glynn MD Unavailable [phone] Izzy Hackett Unavailable [email or web address] Radha Pereira RN Unavailable [phone] Jv Liz Unavailable Encounter Details Date Type Department Care Team (Late st Contact Info) Description 12/08/2022 Procedure Pass [facility] 30 [place], [place] [id number] Social History Tobacco Use Types Packs/Day Years [...] high school, GED, job training, learning the Belgian language, technical skills, or developing parenting skills)? [...] EST Office Visit [facility] [place] [facility] [address] [place] [address] Johann Hanson, TIFFANIE [address] [facility] [place] [address] [email or web address] 09/10/2025 9:00 AM EST Office Visit [facility] 10 [place] [address] Unknown, [place], Shreyas Limon MD [address] [place] [address] 09/21/2025 2:30 PM EST Office Visit [facility] Critical [facility] [address] [place] [address] Lester Hicks MD [address] [place] [address] 10/07/2025 7:15 AM EST Appointment [facility] [address] [place] [address] Lester Hicks MD [address] [place] [address] 10/13/2025 9:20 AM EST Office Visit [facility] Endocrinology [address] [place] [address] [place] [address] Doretha Glynn MD [address] [place] [address] [email or web address] 12/22/2025 8:30 AM EDT Office Visit [address] [place] [address] Johann Hanson, ASSISTANT STORE MANAGER OPERATIONS [address] [place] [address], [address] [place] [address] [email or web address] 06/30/2026 8:00 AM EDT Office Visit [address] [place] [address] Johann Hanson, ASSISTANT STORE MANAGER OPERATIONS [address] [place] [address], [address] [place] [address] [email or web address] documented as of this encounter Visit Diagnoses Not on filedocumented in this encounter Additional Health Concerns Infection Onset Date Last Indicated Resolved Time COVID-19 10/07/2023 10/07/2023 10/28/2023 1:21 AM EST Assessment Noted Time PHQ-2 Depression Total Score: 0 05/15/20 1:45 PM EDT documented as of this encounter Care Teams Shift Supervisor Film Processing Relationship Specialty Start Date End Date Johann Hanson CNP [address] [place] [address], [address] [place] [address] PCP - General Family Medicine 02/11/21 Lester Hicks MD [address] [place] [address] Historical LMR Provider 07/28/17 Margaux Montanez MD [address] [place] [address], [address] [place] [address] [email or web address] Historical LMR Provider 07/28/17 Khang Kilgore MD [address] [place] [address], [address] [place] [address] Insurance Assigned Provider 01/12/24 Luis Ignacio DO [address] [place] [address], [address] [place] [address] Cardiology 06/28/22 06/16/24 Flo Esteban MD [address] [place], [place] [address]D[address] [place] [address] [email or web address] Cardiothoracic Surgery 06/28/22 06/16/24 Neisha Pinto, RANDI [address] [place] [address] FND-7 [place] [address] [email or web address] PHCM Chef'S Assistant 02/26/23 06/10/25 Shreyas Wilson MD [address] [place] [address] Gastroenterology 06/17/24 Doretha Glynn MD [address] [place] [address] Endocrinology 06/17/24 Izzy Hackett 10 [place] [address] [email or web address] PHC Community Roofer Gypsum 09/11/24 09/11/24 Radha Pereira RN [address] [place] [address] PHC Chef'S AssistantHand Embroiderer 06/11/25 Jv Liz [address] [place] [address] Advertising Copywriter 08/12/25 08/12/25 documented as of this encounter Additional Source Comments The information contained in this document represents components of the legal health record. It is not the complete legal health record.[facility]
--- OUTSIDE RECORDS SUMMARY | 2025-08-19 17:48 | XMS_ITS | Encounter Summary ---
Author Organization [facility] Address [address] [facility] [address] [place] [address] Phone Care Team Providers Care Gambling Floor Supervisor Name Role Phone Lester Hicks MD Unavailable [phone] Margaux Montanez MD Unavailable [phone] Johann Hanson CNP Primary Care Provider [phone] Khang Kilgore MD Unavailable Luis Ignacio DO Unavailable [phone] Flo Esteban MD Unavailable [phone] Dilan Rowland MD Unavailable [phone] Corby Prado MD Unavailable [phone] Neisha Pinto RN Unavailable [email or web address] Shreyas Wilson MD Unavailable Doretha Glynn MD Unavailable [phone] Izzy Hackett Unavailable [email or web address] Radha Pereira RN Unavailable Jv Liz Unavailable Encounter Details Date Type Department Care Team (Late st Contact Info) Description 02/28/2022 Procedure Pass [facility], [facility] - [facility] [address] [place] [address] Social History Tobacco Use Types Packs/Day Years [...] EST Office Visit [facility] [place] [facility] [address] [place] [address] [place] [address] Johann Hanson, TIFFANIE [address], [address] [place] [address] [email or web address] 09/10/2025 9:00 AM EST Office Visit [facility] Gastroenterology Clinic 10 [place] [address] Unknown, [place], Shreyas Limon MD [address] [address] 09/21/2025 2:30 PM EST Office Visit [facility] All[facility] Critical [facility] 10 [place] [address] Lester Hicks MD [address] [place] [address] 10/07/2025 7:15 AM EST Appointment [facility] 30 [place] [address] Lester Hicks MD [address] [place] [address] 10/13/2025 9:20 AM EST Office Visit [facility] [address] [place] [address] [place] [address] Doretha Glynn MD [address] [place] [address] [email or web address] 12/22/2025 8:30 AM EDT Office Visit [address] [place] [address] Johann Hanson, TIFFANIE [address] [place] [address], [address] [place] [address] [email or web address] 06/30/2026 8:00 AM EDT Office Visit [address] [place] [address] Johann Hanson CNP [address] [facility], [address] [place] [address] [email or web address] documented as of this encounter Visit [...] documented as of this encounter Care Teams Gambling Floor Supervisor Relationship Specialty Start Date End Date Johann Hanson CNP [address] [place] [address], [address] [place] [address] [email or web address] PCP - General Family Medicine 02/11/21 Lester Hicks MD [address] [place] [address] [email or web address] Historical LMR Provider 07/28/17 Margaux Montanez MD [address] [place] [address], [address] [place] [address] [email or web address] Historical LMR Provider 07/28/17 Khang Kilgore MD [address] [place] [address], [address] [place] [address] Insurance Assigned Provider 01/12/24 Luis Ignacio DO [address] [place] [address], [address] [place] [address] Cardiology 06/28/22 06/16/24 Flo Esteban MD [address] [place] [address] [email or web address] Cardiothoracic Surgery 06/28/22 06/16/24 Dilan Rowland MD [address] [place] [address], [address] [place] [address] [email or web address] Insurance Assigned Provider 07/15/22 08/13/22 Corby Prado MD [address] [place] [address], [address] [place] [address] [email or web address] Insurance Assigned Provider 08/13/22 09/16/22 Neisha Pinto, RANDI [address] [place] [address], [address] [place] [address] [email or web address] Field Nurse 02/26/23 06/10/25 Shreyas Wilson MD [address] [place] [address] Gastroenterology 06/17/24 Droetha Glynn MD [address] [place] [address] [address] [place] [address] Endocrinology 06/17/24 Izzy Hackett [address] [place] [address] [email or web address] PHCM Community Thermoscrew Operator 09/11/24 09/11/24 Radha Pereira, RN 10 [place] [address] [email or web address] PHCM Field NurseEngine Specialist 06/11/25 Jv Liz [address] [place] [address] [email or web address] Lighting Engineer 08/12/25 08/12/25 documented as of this encounter Additional Source Comments The information contained in this document represents components of the legal health record. It is not the complete legal health record.[facility]
--- OUTSIDE RECORDS SUMMARY | 2025-08-19 17:48 | XMS_ITS | Encounter Summary ---
Author Organization [facility] Address [address] [place] [address] Phone Care Team Providers Care Synthetic Department Supervisor Name Role Phone Lester Hicks MD Unavailable [phone] Margaux Montanez MD Unavailable [phone] Johann Hanson CNP Primary Care Provider [phone] Khang Kilgore MD Unavailable [phone] Luis Ignacio DO Unavailable Flo Esteban MD Unavailable [phone] Neisha Pinto RN Unavailable [email or web address] Shreyas Wilson MD Unavailable Doretha Glynn MD Unavailable [phone] Izzy Hackett Unavailable [email or web address] Radha Pereira RN Unavailable [phone] Jv Liz Unavailable Encounter Details Date Type Department Care Team (Late st Contact Info) Description 12/11/2022 Procedure Pass [facility]ovascular [facility] Interventional [facility]iology 30 [place], [place] [id number] Social History Tobacco Use Types Packs/Day Years [...] high school, GED, job training, learning the Kazakh language, technical skills, or developing parenting skills)? [...] EST Office Visit [facility] [place] [facility] [address] [place] [address] Johann Hanson, TIFFANIE 22 [facility], [address] [place] [address] [email or web address] 09/10/2025 9:00 AM EST Office Visit [facility] Gastroenterology Clinic 10 [place] [address] Unknown, [place], Shreyas Limon MD [address] [place] [address] 09/21/2025 2:30 PM EST Office Visit [facility] Allergy [facility] Critical [facility] [address] [place] [address] Lester Hicks MD [address] [place] [address] 10/07/2025 7:15 AM EST Appointment [facility] [address] [place] [address] Lester Hicks MD [address] [place] [address] 10/13/2025 9:20 AM EST Office Visit [facility] [address] [place] [address] [place] [address] Doretha Glynn MD [address] [place] [address] [email or web address] 12/22/2025 8:30 AM EDT Office Visit [address] [place] [address] Johann Hanson, TRANSFORMER INSPECTOR [address] [place] [address], [address] [place] [address] [email or web address] 06/30/2026 8:00 AM EDT Office Visit [address] [place] [address] Johann Hanson, TRANSFORMER INSPECTOR [address] [place] [address], [address] [place] [address] [email or web address] documented as of this encounter Visit Diagnoses Not on filedocumented in this encounter Additional Health Concerns Infection Onset Date Last Indicated Resolved Time COVID-19 10/07/2023 10/07/2023 10/28/2023 1:21 AM EST Assessment Noted Time PHQ-2 Depression Total Score: 0 05/15/20 1:45 PM EDT documented as of this encounter Care Teams Synthetic Department Supervisor Relationship Specialty Start Date End Date Johann Hanson CNP [address] [place] [address], [address] [place] [address] PCP - General Family Medicine 02/11/21 Lester Hicks MD [address] [place] [address] Historical LMR Provider 07/28/17 Margaux Montanez MD [address] [place] [address], [address] [place] [address] [email or web address] Historical LMR Provider 07/28/17 Khang Kilgore MD [address] [place] [address], [address] [place] [address] Insurance Assigned Provider 01/12/24 Luis Ignacio DO [address] [place] [address], [address] [place] [address] Cardiology 06/28/22 06/16/24 Flo Esteban MD [address] [place], [place] [address]D[address] [place] [address] [email or web address] Cardiothoracic Surgery 06/28/22 06/16/24 Neisha Pinto, RANDI [address] [place] [address] FND-7 [place] [address] [email or web address] PHCM News Producer 02/26/23 06/10/25 Shreyas Wilson MD [address] [place] [address] Gastroenterology 06/17/24 Doretha Glynn MD [address] [place] [address] Endocrinology 06/17/24 Izzy Hackett 10 [place] [address] [email or web address] PHC Community Boring Machine Operator Horizontal 09/11/24 09/11/24 Radha Pereira RN [address] [place] [address] PHC News ProducerMedical Reimbursement Manager 06/11/25 Jv Liz [address] [place] [address] Kiln Charger 08/12/25 08/12/25 documented as of this encounter Additional Source Comments The information contained in this document represents components of the legal health record. It is not the complete legal health record.[facility]
--- OUTSIDE RECORDS SUMMARY | 2025-08-19 17:48 | XMS_ITS | Clinical Summary ---
Author Organization [facility] Address [address] [place] [address] Care Team Providers Care Firestopper Installer Name Role Phone Unavailable Primary Care Provider [...]
--- OUTSIDE RECORDS SUMMARY | 2025-08-19 17:48 | XMS_ITS | Encounter Summary ---
Author Organization [facility] Address [address] [place] [address] Phone Care Team Providers Care Hr Administrative Assistant Name Role Phone Lester Hicks MD Unavailable [phone] Margaux Montanez MD Unavailable Johann Hanson CNP Primary Care Provider [phone] Khang Kilgore MD Unavailable Luis Ignacio DO Unavailable Flo Esteban MD Unavailable [phone] Neisha Pinto RN Unavailable [email or web address] Shreyas Wilson MD Unavailable Doretha Glynn MD Unavailable [phone] Izzy Hackett Unavailable [email or web address] Radha Pereira RN Unavailable Jv Liz Unavailable Encounter Details Date Type Department Care Team (Late st Contact Info) Description 12/22/2022 Procedure Pass [facility], [address] [id number] Social History Tobacco Use Types Packs/Day Years [...] high school, GED, job training, learning the Malawian language, technical skills, or developing parenting skills)? [...] 08/24/2025 1:30 PM EST Office Visit [facility] [place] [facility] [address] [place] [address] Johann Hanson, TIFFANIE [address] [facility], [address] [place] [address] [email or web address] 09/10/2025 9:00 AM EST Office Visit [facility] Gastroenterology Clinic 10 [place] [address] Unknown, Unknown, Shreyas Limon MD [address] [place] [address] 09/21/2025 2:30 PM EST Office Visit [facility] Allergy [facility] Critical [facility] Medicine 10 [place] [address] Lester Hicks MD [address] [place] [address] 10/07/2025 7:15 AM EST Appointment [facility] [address] [place] [address] Lester Hicks MD [address] [place] [address] 10/13/2025 9:20 AM EST Office Visit [facility] [address] [place] [address] [place] [address] Doretha Glynn MD [address] [place] [address] [email or web address] 12/22/2025 8:30 AM EDT Office Visit [address] [place] [address] Johann Hanson, ACCOUNT EXECUTIVE KEY ACCOUNTS [address] [place] [address], [address] [place] [address] [email or web address] 06/30/2026 8:00 AM EDT Office Visit [address] [place] [address] Johann Hanson, ACCOUNT EXECUTIVE KEY ACCOUNTS [address] [place] [address], [address] [place] [address] [email or web address] documented as of this encounter Visit Diagnoses Not on filedocumented in this encounter Additional Health Concerns Infection Onset Date Last Indicated Resolved Time COVID-19 10/07/2023 10/07/2023 10/28/2023 1:21 AM EST Assessment Noted Time PHQ-2 Depression Total Score: 0 01/01/20 23 1:26 PM EDT documented as of this encounter Care Teams Hr Administrative Assistant Relationship Specialty Start Date End Date Johann Hanson CNP [address] [place] [address], [address] [place] [address] PCP - General Family Medicine 02/11/21 Lester Hicks MD [address] [place] [address] Historical LMR Provider 07/28/17 Margaux Montanez MD [address] [place] [address], [address] [place] [address] [email or web address] Historical LMR Provider 07/28/17 Khang Kilgore MD [address] [place] [address], [address] [place] [address] Insurance Assigned Provider 01/12/24 Luis Ignacio DO [address] [place] [address], [address] [place] [address] Cardiology 06/28/22 06/16/24 Flo Esteban MD [address] [place] [address]-[address] [place] [address] [email or web address] Cardiothoracic Surgery 06/28/22 06/16/24 Neisha Pinto, RANDI [address] [place], [place] [address]D-7 [place] [address] [email or web address] PHCM Tunnel Elastic Operator [email or web address] 02/26/23 06/10/25 Shreyas Wilson MD [address] [place] [address] Gastroenterology 06/17/24 Doretha Glynn MD [address] [place] [address] Endocrinology 06/17/24 Izzy Hackett [address] [place] [address] [email or web address] PHC Community Elevator Attendant 09/11/24 09/11/24 Radha Pereira RN [address] [place] [address] PHC Tunnel Elastic Operator ZigzagManager Consumer Insights 06/11/25 Jv Liz [address] [place] [address] Transcripter 08/12/25 08/12/25 documented as of this encounter Additional Source Comments The information contained in this document represents components of the legal health record. It is not the complete legal health record.[facility]
--- OUTSIDE RECORDS SUMMARY | 2025-08-19 17:48 | XMS_ITS | Encounter Summary ---
Author Organization [facility] Address [address] [place] [address] [place] [address] Phone Care Team Providers Care Potato Chip Sacking Machine Operator Name Role Phone Tricia Balderas DO Unavailable Lester Hicks MD Unavailable [phone] Margaux Montanez MD Unavailable Demario Floyd MD Unavailable Pam Benson MD Unavailable [phone] Adithya Campos EQUIPMENT INSPECTOR Unavailable Beatriz Donaldson FOREST TECHNOLOGY PROFESSOR Unavailable Beatriz Donaldson FOREST TECHNOLOGY PROFESSOR Primary Care Provider Mamta Whitney DO Primary Care Provider [phone] Mamta Whitney DO Primary Care Provider [phone] Johann Hanson EQUIPMENT INSPECTOR Primary Care Provider [phone] Khang Kilgore MD Unavailable Luis Ignacio DO Unavailable Flo Esteban MD Unavailable [phone] Dilan Rowland MD Unavailable [phone] Corby Prado MD Unavailable [phone] Neisha Pinto RN Unavailable [email or web address] Shreyas Wilson MD Unavailable Doretha Glynn MD Unavailable [phone] Izzy Hackett Unavailable [email or web address] Radha Pereira RN Unavailable Jv Liz Unavailable Encounter Details Date Type Department Care Team (Late st Contact Info) Description 05/20/2018 Ancillary Orders Virtual Department [address] [place] [address] Beatriz Donaldson, FOREST TECHNOLOGY PROFESSOR [address] [place] [address] Lymphadenopathy; Generalized enlarged lymph nodes Social History [...] 1:30 PM EST Office Visit [facility] [address] [place] [address] Johann Hanson, TIFFANIE 22 [facility], [address] [place] [address] [email or web address] 09/10/2025 9:00 AM EST Office Visit [facility] G[facility]ology Clinic [address] [place] [address] [phone] Unknown, Unknown, Shreyas Limon MD [address] [place] [address] 09/21/2025 2:30 PM EST Office Visit [facility] Critical [facility] Medicine 10 [place] [address] Lester Hicks MD [address] [place] [address] 10/07/2025 7:15 AM EST Appointment [facility] 30 [place] [address] Lester Hicks MD [address] [place] [address] 10/13/2025 9:20 AM EST Office Visit [facility] [address] [place] [address] Doretha Glynn MD [address] [place] [address] [email or web address] 12/22/2025 8:30 AM EDT Office Visit [address] [place] [address] Johann Hanson, EQUIPMENT INSPECTOR [address] [place] [address], [address] [address] [email or web address] 06/30/2026 8:00 AM EDT Office Visit [address] [place] [address] Johann Hanson, EQUIPMENT INSPECTOR [address] [place] [address], [address] [address] [email or web address] documented as of this encounter [...] documented as of this encounter Care Teams Potato Chip Sacking Machine Operator Relationship Specialty Start Date End Date Beatriz Donaldson NP [address] [place] [address] PCP - General Family Medicine 10/04/17 04/11/20 Mamta Whitney DO [address] [place] [address] [email or web address] PCP - General Family Medicine 04/12/20 02/08/21 Mamta Whitney DO [address] [place] [address] [email or web address] PCP - General Family Medicine 02/10/21 02/10/21 Johann Hanson CNP [address] [facility] [place] [address] [email or web address] PCP - General Family Medicine 02/11/21 Tricia Balderas DO [address] [place] [address] [email or web address] Historical LMR Provider 07/28/17 10/15/21 Lester Hicks MD [address] [place] [address] [email or web address] Historical LMR Provider 07/28/17 Margaux Montanez MD [address] [place] [address], [address] [place] [address] [email or web address] Historical LMR Provider 07/28/17 Demario Floyd MD [address] [place] [address] [email or web address] Historical LMR Provider 07/28/17 10/15/21 Pam Benson MD [address] [place] [address] [email or web address] Historical LMR Provider 07/28/17 10/15/21 Adithya Campos, EQUIPMENT INSPECTOR [address] [place] [address] [email or web address] Historical LMR Provider 07/28/17 12/25/21 Beatriz Donaldson, FOREST TECHNOLOGY PROFESSOR [address] [place] [address] Historical LMR Provider 07/28/17 04/11/20 Khang Kilgore MD [address] [place] [address] [address] [place] [address] [email or web address] Insurance Assigned Provider 01/12/24 Luis Ignacio DO [address] [place] [address], [address] [place] [address] Cardiology 06/28/22 06/16/24 Flo Esteban MD [address] [place] [address] [place] [address] [email or web address] Cardiothoracic Surgery 06/28/22 06/16/24 Dilan Rowland MD [address] [place] [address], [address] [place] [address] [email or web address] Insurance Assigned Provider 07/15/22 08/13/22 Corby Prado MD [address] [place] [address], [address] [place] [address] Insurance Assigned Provider 08/13/22 09/16/22 Neisha Pinto RN [address] [place] [address], [address] [place] [address] [email or web address] Embedded Software Test Engineer 02/26/23 06/10/25 Shreyas Wilson MD [address] [place] [address] Gastroenterology 06/17/24 Doretha Glynn MD [address] [place] [address] 3rd [place] [address] [email or web address] Endocrinology 06/17/24 Izzy Hackett [address] [place] [address] [email or web address] PHC Community Partner Marketing Manager 09/11/24 09/11/24 Radha Pereira RN [address] [place] [address] PHCM Embedded Software Test EngineerTechnical Project Manager 06/11/25 Jv Liz [address] [place] [address] Traffic Inspector 08/12/25 08/12/25 documented as of this encounter Additional Source Comments The information contained in this document represents components of the legal health record. It is not the complete legal health record.[facility]
--- OUTSIDE RECORDS SUMMARY | 2025-08-19 17:48 | XMS_ITS | Encounter Summary ---
Author Organization [facility] Address [address] [place] [address] Phone Care Team Providers Care Machine Operator Name Role Phone Lester Hicks MD Unavailable [phone] Margaux Montanez MD Unavailable [phone] Johann Hanson CNP Primary Care Provider [phone] Khang Kilgore MD Unavailable [phone] Neisha Pinto RN Unavailable [email or web address] Shreyas Wilson MD Unavailable [phone] Doretha Glynn MD Unavailable [phone] Izzy Hackett Unavailable [email or web address] Radha Pereira RN Unavailable [phone] Jv Liz Unavailable Encounter Details Date Type Department Care Team (Late st Contact Info) Description 06/20/2024 Procedure Pass [facility] Endoscopy Admitting Dept Virtual Department [address] [place] [address] Social History Tobacco Use Types Packs/Day [...] high school, GED, job training, learning the [place]uran language, technical skills, or developing parenting skills)? [...] 1:30 PM EST Office Visit [facility] [address] [place] [address] Johann Hanson, TANGIBLE PERSONAL PROPERTY APPRAISER 22 [facility], [address] [place] [address] [email or web address] 09/10/2025 9:00 AM EST Office Visit [facility] 10 [place] [address] Unknown, Unknown, Shreyas Limon MD [address] [place] [address] 09/21/2025 2:30 PM EST Office Visit [facility] Critical [facility] 10 [place] [address] Lester Hicks MD [address] [place] [address] 10/07/2025 7:15 AM EST Appointment [facility] 30 [place] [address] Lester Hicks MD [address] [place] [address] 10/13/2025 9:20 AM EST Office Visit [facility] [address] [place] [address] Doretha Glynn MD [address] [place] [address] [email or web address] 12/22/2025 8:30 AM EDT Office Visit [address] [place] [address] Johann Hanson CNP [address] [place] [address], [address] [place] [address] [email or web address] 06/30/2026 8:00 AM EDT Office Visit [address] [place] [address] Johann Hanson, TANGIBLE PERSONAL PROPERTY APPRAISER [address] [place] [address], [address] [place] [address] [email or web address] documented as of this encounter Visit Diagnoses Not on filedocumented in this encounter Additional Health Concerns Assessment Noted Time PHQ-9 Depression Total Score: 4 10/29/19 24 1:54 PM EST PHQ-2 Depression Total Score: 0 06/10/20 24 9:22 AM EDT documented as of this encounter Care Teams Machine Operator Relationship Specialty Start Date End Date Johann Hanson CNP [address] [place] [address], [address] [place] [address] [email or web address] PCP - General Family Medicine 02/11/21 Lester Hicks MD [address] [place] [address] Historical LMR Provider 07/28/17 Margaux Montanez MD [address] [place] [address], [address] [place] [address] Historical LMR Provider 07/28/17 Khang Kilgore MD [address] [place] [address], [address] [place] [address] Insurance Assigned Provider 01/12/24 Neisha Pinto RN 22 [facility], [address] [place] [address] [email or web address] PHCM Clinical Trainer 02/26/23 06/10/25 Shreyas Wilson MD [address] [place] [address] Gastroenterology 06/17/24 Doretha Glynn MD [address] [place] [address] 3[address] [place] [address] Endocrinology 06/17/24 Izzy Hackett [address] [place] [address] [email or web address] [facility] Community College Dean 09/11/24 09/11/24 Radha Pereira RN [address] [place] [address] [email or web address] PHC Clinical TrainerAccount Manager [email or web address] 06/11/25 Jv Liz [address] [place] [address] Education Program Manager 08/12/25 08/12/25 documented as of this encounter Additional Source Comments The information contained in this document represents components of the legal health record. It is not the complete legal health record.[facility]
--- OUTSIDE RECORDS SUMMARY | 2025-08-19 17:48 | XMS_ITS | Encounter Summary ---
Author Organization [facility] Address [address] [place] [address] Phone Care Team Providers Care Rigger Third Name Role Phone Lester Hicks MD Unavailable [phone] Margaux Montanez MD Unavailable Johann Hanson CNP Primary Care Provider [phone] Khang Kilgore MD Unavailable Luis Ignacio DO Unavailable Flo Esteban MD Unavailable [phone] Neisha Pinto RN Unavailable [email or web address] Shreyas Wilson MD Unavailable [phone] Doretha Glynn MD Unavailable [phone] Izzy Hackett Unavailable [email or web address] Radha Pereira RN Unavailable [phone] Jv Liz Unavailable Encounter Details Date Type Department Care Team (Late st Contact Info) Description 12/08/2022 Procedure Pass [facility]ventional [facility]iology 30 [place], [place] [id number] Social History Tobacco Use Types Packs/Day Years [...] EST Office Visit [facility] [place] [facility] [address] [place] [address] Johann Hanson, TIFFANIE 22 [facility], [address] [place] [address] [email or web address] 09/10/2025 9:00 AM EST Office Visit [facility] Gastroenterology Clinic 10 [place] [address] Unknown, [place], Shreyas Limon MD [address] [place] [address] 09/21/2025 2:30 PM EST Office Visit [facility] [address] [place] [address] Lester Hicks MD [address] [place] [address] 10/07/2025 7:15 AM EST Appointment [facility] [address] [place] [address] Lester Hicks MD [address] [place] [address] 10/13/2025 9:20 AM EST Office Visit [facility] [address] [place] [address] [place] [address] Doretha Glynn MD [address] [place] [address] [email or web address] 12/22/2025 8:30 AM EDT Office Visit [address] [place] [address] Johann Hanson, CHEMISTRY QUALITY CONTROL TECHNICIAN [address] [place] [address], [address] [place] [address] [email or web address] 06/30/2026 8:00 AM EDT Office Visit [address] [place] [address] Johann Hanson, CHEMISTRY QUALITY CONTROL TECHNICIAN [address] [place] [address], [address] [place] [address] [email or web address] documented as of this encounter Visit Diagnoses Not on filedocumented in this encounter Additional Health Concerns Infection Onset Date Last Indicated Resolved Time COVID-19 10/07/2023 10/07/2023 10/28/2023 1:21 AM EST Assessment Noted Time PHQ-2 Depression Total Score: 0 05/15/20 1:45 PM EDT documented as of this encounter Care Teams Rigger Third Relationship Specialty Start Date End Date Johann Hanson CNP [address] [place] [address], [address] [place] [address] PCP - General Family Medicine 02/11/21 Lester Hicks MD [address] [place] [address] Historical LMR Provider 07/28/17 Margaux Montanez MD [address] [place] [address], [address] [place] [address] [email or web address] Historical LMR Provider 07/28/17 Khang Kilgore MD [address] [place] [address], [address] [place] [address] Insurance Assigned Provider 01/12/24 Luis Ignacio DO [address] [place] [address], [address] [place] [address] Cardiology 06/28/22 06/16/24 Flo Esteban MD [address] [place], [place] [address]D-[address] [place] [address] [email or web address] Cardiothoracic Surgery 06/28/22 06/16/24 Neisha Pinto, RANDI [address] [place] [address] FND-7 [place] [address] [email or web address] PHCM Electronic Tester 02/26/23 06/10/25 Shreyas Wilson MD [address] [place] [address] Gastroenterology 06/17/24 Doretha Glynn MD [address] [place] [address] Endocrinology 06/17/24 Izzy Hackett 10 [place] [address] [email or web address] PHC Community Apartment House Manager 09/11/24 09/11/24 Radha Pereira RN [address] [place] [address] PHC Electronic TesterDatabase Administrator 06/11/25 Jv Liz [address] [place] [address] Silverlight Developer 08/12/25 08/12/25 documented as of this encounter Additional Source Comments The information contained in this document represents components of the legal health record. It is not the complete legal health record.[facility]
--- OUTSIDE RECORDS SUMMARY | 2025-08-19 17:48 | XMS_ITS | Encounter Summary ---
Author Organization [facility] Address [address] [place] [address] [place] [address] Phone Care Team Providers Care Supervisor Hand Workers Name Role Phone Lester Hicks MD Unavailable [phone] Margaux Montanez MD Unavailable Johann Hanson CNP Primary Care Provider [phone] Khang Kilgore MD Unavailable Neisha Pinto RN Unavailable [email or web address] Shreyas Wilson MD Unavailable [phone] Doretha Glynn MD Unavailable [phone] Radha Pereira RN Unavailable [phone] Jv Liz Unavailable Encounter Details Date Type Department Care Team (Late st Contact Info) Description 01/13/[address] [facility] L2 PRU 75 [place] [address] Social History Tobacco Use Types Packs/Day Years [...] high school, GED, job training, learning the Bangladeshi language, technical skills, or developing parenting skills)? [...] EST Office Visit [facility] Medicine [address] [place] [address] [place] [address] Johann Hanson, BRICK PAVER 22 [facility], [address] [place] [address] [email or web address] 09/10/2025 9:00 AM EST Office Visit [facility] Gastroenterology Clinic [address] [place] [address] Unknown, Unknown, Shreyas Limon MD [address] [place] [address] 09/21/2025 2:30 PM EST Office Visit [facility] 10 [place] [address] Lester Hicks MD [address] [place] [address] 10/07/2025 7:15 AM EST Appointment [facility] 30 [place] [address] Lester Hicks MD [address] [place] [address] 3509562 10/13/2025 9:20 AM EST Office Visit [facility] [address] [place] [address] Doretha Glynn MD [address] [place] [address] [phone] [email or web address] 12/22/2025 8:30 AM EDT Office Visit [address] [place] [address] Johann Hanson CNP [address] [place] [address], [address] [place] [address] [email or web address] 06/30/2026 8:00 AM EDT Office Visit [address] [place] [address] Johann Hanson CNP [address] [place] [address], [address] [place] [address] [email or web address] documented as of this encounter Visit Diagnoses Not on filedocumented in this encounter Additional Health Concerns Assessment Noted Time PHQ-9 Depression Total Score: 4 10/29/19 24 1:54 PM EST PHQ-2 Depression Total Score: 0 06/10/20 24 9:22 AM EDT documented as of this encounter Care Teams Supervisor Hand Workers Relationship Specialty Start Date End Date Johann Hanson CNP [address] [place] [address], [address] [place] [address] PCP - General Family Medicine 02/11/21 Lester Hicks MD [address] [place] [address] Historical LMR Provider 07/28/17 Margaux Montanez MD [address] [place] [address], [address] [place] [address] Historical LMR Provider 07/28/17 Khang Kilgore MD 22 [facility], [address] [place] [address] Insurance Assigned Provider 01/12/24 Neisha Pinto, RANDI 22 [facility], [address] [place] [address] [email or web address] PHC Care Rep 02/26/23 06/10/25 Shreyas Wilson MD [address] [place] [address] Gastroenterology 06/17/24 Doretha Glynn MD [address] [place] [address] 3[address] [place] [address] Endocrinology 06/17/24 Radha Pereira, RANDI 10 [place] [address] [email or web address] [facility] Care RepDirector Airport Operations 06/11/25 Jv Liz [address] [place] [address] Consultant Intern 08/12/25 08/12/25 documented as of this encounter Additional Source Comments The information contained in this document represents components of the legal health record. It is not the complete legal health record.[facility]
--- OUTSIDE RECORDS SUMMARY | 2025-08-19 17:48 | XMS_ITS | Encounter Summary ---
Author Organization [facility] Address [address] [place] [address] Phone Care Team Providers Care Toy Assembly Supervisor Name Role Phone Lester Hicks MD Unavailable [phone] Margaux Montanez MD Unavailable Johann Hanson CNP Primary Care Provider [phone] Khang Kilgore MD Unavailable Luis Ignacio DO Unavailable Flo Esteban MD Unavailable [phone] Neisha Pinto RN Unavailable [email or web address] Shreyas Wilson MD Unavailable Doretha Glynn MD Unavailable [phone] Izzy Hackett Unavailable [email or web address] Radha Pereira RN Unavailable [phone] Jv Liz Unavailable Encounter Details Date Type Department Care Team (Late st Contact Info) Description 12/13/2022 Procedure Pass [facility] Cardiovascular And Interventional Radiology 30 [place], [place] [phone] Social History Tobacco Use Types Packs/Day Years [...] EST Office Visit [facility] [place] [facility] [address] [place] [address] Johann Hanson, TIFFANIE 22 [facility], [address] [place] [address] [email or web address] 09/10/2025 9:00 AM EST Office Visit [facility] Gastroenterology Clinic 10 [place] [address] Unknown, [place], Shreyas Limon MD [address] [place] [address] 09/21/2025 2:30 PM EST Office Visit [facility] All[facility] Critical [facility] Medicine [address] [place] [address] Lester Hicks MD [address] [place] [address] 10/07/2025 7:15 AM EST Appointment [facility] [address] [place] [address] Lester Hicks MD [address] [place] [address] 10/13/2025 9:20 AM EST Office Visit [facility] [address] [place] [address] [place] [address] Doretha Glynn MD [address] [place] [address] [email or web address] 12/22/2025 8:30 AM EDT Office Visit [address] [place] [address] Johann Hanson, BASEBALL INSPECTOR AND REPAIRER [address] [place] [address], [address] [place] [address] [email or web address] 06/30/2026 8:00 AM EDT Office Visit [address] [place] [address] Johann Hanson, BASEBALL INSPECTOR AND REPAIRER [address] [place] [address], [address] [place] [address] [email or web address] documented as of this encounter Visit Diagnoses Not on filedocumented in this encounter Additional Health Concerns Infection Onset Date Last Indicated Resolved Time COVID-19 10/07/2023 10/07/2023 10/28/2023 1:21 AM EST Assessment Noted Time PHQ-2 Depression Total Score: 0 05/15/20 1:45 PM EDT documented as of this encounter Care Teams Toy Assembly Supervisor Relationship Specialty Start Date End Date Johann Hanson CNP [address] [place] [address], [address] [place] [address] PCP - General Family Medicine 02/11/21 Lester Hicks MD [address] [place] [address] Historical LMR Provider 07/28/17 Margaux Montanez MD [address] [place] [address], [address] [place] [address] [email or web address] Historical LMR Provider 07/28/17 Khang Kilgore MD [address] [place] [address], [address] [place] [address] Insurance Assigned Provider 01/12/24 Luis Ignacio DO [address] [place] [address], [address] [place] [address] Cardiology 06/28/22 06/16/24 Flo Esteban MD [address] [place], [place] [address]D-7 [place] [address] [email or web address] Cardiothoracic Surgery 06/28/22 06/16/24 Neisha Pinto, RANDI [address] [place] [address] FND-7 [place] [address] [email or web address] PHCM Home Stager 02/26/23 06/10/25 Shreyas Wilson MD [address] [place] [address] Gastroenterology 06/17/24 Doretha Glynn MD [address] [place] [address] Endocrinology 06/17/24 Izzy Hackett 10 [place] [address] [email or web address] PHC Community Tool Grinding Machine Operator 09/11/24 09/11/24 Radha Pereira RN [address] [place] [address] PHC Home StagerPermit Coordinator 06/11/25 Jv Liz [address] [place] [address] Supply Chain Coordinator 08/12/25 08/12/25 documented as of this encounter Additional Source Comments The information contained in this document represents components of the legal health record. It is not the complete legal health record.[facility]"
--- OUTSIDE RECORDS SUMMARY | 2025-08-19 17:48 | XMS_ITS | Encounter Summary ---
Author Organization [facility] Address [address] [place] [address] Phone Care Team Providers Care Engineer Sergeant Name Role Phone Lester Hicks MD Unavailable [phone] Margaux Montanez MD Unavailable [phone] Johann Hanson MANAGER GYN Primary Care Provider [phone] Khang Kilgore MD Unavailable [phone] Luis Ignacio DO Unavailable Flo Esteban MD Unavailable [phone] Neisha Pinto RN Unavailable [email or web address] Shreyas Wilson MD Unavailable Doretha Glynn MD Unavailable [phone] Izzy Hackett Unavailable [email or web address] Radha Pereira RN Unavailable Jv Liz Unavailable Encounter Details Date Type Department Care Team (Latest Contact Info) Description 12/22/2022 Transcribe Orders Virtual Department [address] [place] [address] Johann Hanson, MANAGER GYN [address] [facility] [place], [place] [id number] [email or web address] Breast screening (Primary Dx) Social History [...] high school, GED, job training, learning the Kittitian language, technical skills, or developing parenting skills)? [...] EST Office Visit [facility] [address] [place] [address] Johann Hanson, TIFFANIE [address] [facility] [place] [address] [email or web address] 09/10/2025 9:00 AM EST Office Visit [facility] 10 [place] [address] Unknown, Unknown, Shreyas Limon MD [address] [place] [address] 09/21/2025 2:30 PM EST Office Visit [facility] 10 [place] [address] Lester Hicks MD [address] [place] [address] 10/07/2025 7:15 AM EST Appointment [facility]FT Lab 30 [place] [address] Lester Hicks MD [address] [place] [address] 10/13/2025 9:20 AM EST Office Visit [facility] [address] [place] [address] [place] [address] Doretha Glynn MD [address] [place] [address] [email or web address] 12/22/2025 8:30 AM EDT Office Visit [address] [place] [address] Johann Hanson, MANAGER GYN [address] [place] [address], [address] [place] [address] [email or web address] 06/30/2026 8:00 AM EDT Office Visit [address] [place] [address] LeonelJohann hawley, MANAGER GYN [address] [facility] [place] [address] [email or web address] documented as of this encounter Results [...] documented as of this encounter Care Teams Engineer Sergeant Relationship Specialty Start Date End Date Johann Hanson CNP [address] [place] [address], [address] [place] [address] [email or web address] PCP - General Family Medicine 02/11/21 Lester Hicks MD [address] [place] [address] [email or web address] Historical LMR Provider 07/28/17 Margaux Montanez MD [address] [place] [address], [address] [place] [address] [email or web address] Historical LMR Provider 07/28/17 Khang Kilgore MD [address] [place] [address], [address] [place] [address] Insurance Assigned Provider 01/12/24 Luis Ignacio DO [address] [place] [address], [address] [place] [address] Cardiology 06/28/22 06/16/24 Flo Esteban MD [address] [place] [address] [email or web address] Cardiothoracic Surgery 06/28/22 06/16/24 Neisha Pinto RN [address] [place] [address] [email or web address] PHCM Paper Bag Press Operator 02/26/23 06/10/25 Shreyas Wilson MD [address] [place] [address] Gastroenterology 06/17/24 Doretha Glynn MD [address] [place] [address] [address] [place] [address] Endocrinology 06/17/24 Izzy Hackett [address] [place] [address] [email or web address] PHC Community Sales Recruiting Coordinator 09/11/24 09/11/24 Radha Pereira, RANDI [address] [place] [address] PHCM Paper Bag Press OperatorManufacturers Agent 06/11/25 Jv Liz [address] [place] [address] Lug Loader 08/12/25 08/12/25 documented as of this encounter Additional Source Comments The information contained in this document represents components of the legal health record. It is not the complete legal health record.[facility]
--- OUTSIDE RECORDS SUMMARY | 2025-08-19 17:49 | XMS_ITS | Encounter Summary ---
Author Organization [facility] Address [address] [place] [address] [place] [address] Phone Care Team Providers Care Western Felt Hat Blocker Name Role Phone Lester Hicks MD Unavailable [phone] Margaux Montanez MD Unavailable Johann Hanson CNP Primary Care Provider [phone] Khang Kilgore MD Unavailable Luis Ignacio DO Unavailable Flo Esteban MD Unavailable [phone] Neisha Pinto RN Unavailable [email or web address] Shreyas Wilson MD Unavailable Doretha Glynn MD Unavailable [phone] Izzy Hackett Unavailable [email or web address] Radha Pereira RN Unavailable Jv Liz Unavailable Encounter Details Date Type Department Care Team (Latest Contact Info) Description 09/07/2023 Transcribe Orders [facility] Department [address] [place], [place] [phone] Shreyas Wilson MD [address] [place] [address] [phone] [email or web address] Gastroesophageal reflux disease, unspecified whether [...] Description 08/24/2025 1:30 PM EST Office Visit [facility] Medicine 22 [place] [address] Johann Hanson, PAPER WOOD CUTTER [address] [facility] [place] [address] [email or web address] 09/10/2025 9:00 AM EST Office Visit [facility] [address] [place] [address] Unknown, Unknown, Shreyas Limon MD [address] [place] [address] 09/21/2025 2:30 PM EST Office Visit [facility] 10 [place] [address] Lester Hicks MD [address] [place] [address] 10/07/2025 7:15 AM EST Appointment [facility] [address] [place] [address] Lester Hicks MD [address] [place] [address] 10/13/2025 9:20 AM EST Office Visit [facility] [address] [place] [address] Doretha Glynn MD [address] [place] [address] [email or web address] 12/22/2025 8:30 AM EDT Office Visit [address] [place] [address] Johann Hanson CNP [address] [place] [address], [address] [place] [address] [email or web address] 06/30/2026 8:00 AM EDT Office Visit [address] [place] [address] Johann Hanson CNP [address] [place] [address], [address] [place] [address] [email or web address] documented as of this encounter [...] documented as of this encounter Care Teams Western Felt Hat Blocker Relationship Specialty Start Date End Date Johann Hanson CNP [address] [place] [address], [address] [place] [address] [email or web address] PCP - General Family Medicine 02/11/21 Lester Hicks MD [address] [place] [address] Historical LMR Provider 07/28/17 Margaux Montanez MD [address] [place] [address] [address] [place] [address] [email or web address] Historical LMR Provider 07/28/17 Khang Kilgore MD [address] [place] [address], [address] [place] [address] Insurance Assigned Provider 01/12/24 Luis Ignacio DO [address] [place] [address], [address] [place] [address] Cardiology 06/28/22 06/16/24 Flo Esteban MD [address] [place] [address] [email or web address] Cardiothoracic Surgery 06/28/22 06/16/24 Neisha Pinto RN [address] [place] [address] [email or web address] PHCM Aviation Program Manager 02/26/23 06/10/25 Shreyas Wilson MD [address] [place] [address] Gastroenterology 06/17/24 Doretha Glynn MD [address] [place] [address] 3rd [place] [address] Endocrinology 06/17/24 Izzy Hackett [address] [place] [address] [email or web address] PHCM Community Lockstitch Lining Setter 09/11/24 09/11/24 Radha Pereira RN 10 [place] [address] [email or web address] PHCM Aviation Program ManagerApplication Support Consultant 06/11/25 Jv Liz [address] [place] [address] [email or web address] Intensive Care Medicine Specialist 08/12/25 08/12/25 documented as of this encounter Additional Source Comments The information contained in this document represents components of the legal health record. It is not the complete legal health record.[facility]
--- OUTSIDE RECORDS SUMMARY | 2025-08-19 17:49 | XMS_ITS | Encounter Summary ---
Author Organization [facility] Address [address] [place] [address] Phone Care Team Providers Care Director Of Strategic Communications Name Role Phone Lester Hicks MD Unavailable [phone] Margaux Montanez MD Unavailable [phone] Johann Hanson CNP Primary Care Provider [phone] Khang Kilgore MD Unavailable Luis Ignacio DO Unavailable [phone] Flo Esteban MD Unavailable [phone] Neisha Pinto RN Unavailable [email or web address] Shreyas Wilson MD Unavailable [phone] Doretha Glynn MD Unavailable [phone] Izzy Hackett Unavailable [email or web address] Radha Pereira RN Unavailable Jv Liz Unavailable Encounter Details Date Type Department Care Team (Late st Contact Info) Description 12/07/2022 Procedure Pass [facility] Echo Lab [address] [place], [place] [phone] Social History Tobacco Use Types Packs/Day Years [...] 12/07/2022 9:18 AM Alise Hamilton, RN * [place] Suicide Severity Rating Scale (Screener/Recent Self-Report) Question [...] Description 08/24/2025 1:30 PM EST Office Visit [facility] [address] [place] [address] Johann Hanson, CARPENTRY INSTRUCTOR [address] [facility] [place] [address] [email or web address] 09/10/2025 9:00 AM EST Office Visit [facility] 10 [place] [address] Unknown, Unknown, Shreyas Limon MD [address] [place] [address] 09/21/2025 2:30 PM EST Office Visit [facility] 10 [place] [address] Lester Hicks MD [address] [place] [address] 10/07/2025 7:15 AM EST Appointment [facility] [address] [place], [place] [phone] Lester Hicks MD [address] [place] [address] 10/13/2025 9:20 AM EST Office Visit [facility] [address] [place] [address] Doretha Glynn MD [address] [place] [address] [email or web address] 12/22/2025 8:30 AM EDT Office Visit [facility] [address] [place] [address] Johann Hanson CNP [address] [facility] [place] [address] [email or web address] 06/30/2026 8:00 AM EDT Office Visit [facility] [address] [place] [address] Johann Hanson CNP [address] [facility] [place] [address] [email or web address] documented as of this encounter Visit Diagnoses Not on filedocumented in this encounter Additional Health Concerns Infection Onset Date Last Indicated Resolved Time COVID-19 10/07/2023 10/07/2023 10/28/2023 1:21 AM EST Assessment Noted Time PHQ-2 Depression Total Score: 0 05/15/20 22 1:45 PM EDT documented as of this encounter Care Teams Director Of Strategic Communications Relationship Specialty Start Date End Date Johann Hanson CNP [address] [place] [address], [address] [place] [address] PCP - General Family Medicine 02/11/21 Lester Hicks MD [address] [place] [address] Historical LMR Provider 07/28/17 Margaux Montanez MD [address] [place] [address], [address] [place] [address] [email or web address] Historical LMR Provider 07/28/17 Khang Kilgore MD [address] [place] [address], [address] [place] [address] [email or web address] Insurance Assigned Provider 01/12/24 Luis Ignacio DO [address] [place] [address], [address] [place] [address] Cardiology 06/28/22 06/16/24 Flo Esteban MD [address] [place] [address] [email or web address] Cardiothoracic Surgery 06/28/22 06/16/24 Neisha Pinto RN [address] [place] [address] [email or web address] PHCM Factory Representative 02/26/23 06/10/25 Shreyas Wilson MD [address] [place] [address] Gastroenterology 06/17/24 Doretha Glynn MD [address] [place] [address] 3rd [place] [address] Endocrinology 06/17/24 Izzy Hackett [address] [place] [address] [email or web address] PHCM Community Auction Clerk 09/11/24 09/11/24 Radha Pereira, RANDI [address] [place] [address] PHCM Factory RepresentativeCore Piler 06/11/25 Jv Liz [address] [place] [address] Electric Utility Lineworker 08/12/25 08/12/25 documented as of this encounter Additional Source Comments The information contained in this document represents components of the legal health record. It is not the complete legal health record.[facility]
--- OUTSIDE RECORDS SUMMARY | 2025-08-19 17:49 | XMS_ITS | Encounter Summary ---
Author Organization [facility] Address [address] [place] [address] [place] [address] Phone Care Team Providers Care Template Worker Name Role Phone Tricia Balderas DO Unavailable Lester Hicks MD Unavailable Margaux Montanez MD Unavailable Demario Floyd MD Unavailable Pam Benson MD Unavailable [phone] Adithya Campos MAIN LINE ASSEMBLER Unavailable Beatriz Donaldson DIRECTOR STYLE Unavailable Beatriz Donaldson DIRECTOR STYLE Primary Care Provider Mamta Whitney DO Primary Care Provider [phone] Mamta Whitney DO Primary Care Provider [phone] Johann Hanson MAIN LINE ASSEMBLER Primary Care Provider [phone] Khang Kilgore MD Unavailable Luis Ignacio DO Unavailable Flo Esteban MD Unavailable [phone] Dilan Rowland MD Unavailable [phone] Corby Prado MD Unavailable [phone] Neisha Pinto RN Unavailable [email or web address] Shreyas Wilson MD Unavailable [phone] Doretha Glynn MD Unavailable [phone] Izzy Hackett Unavailable sami Radha Pereira RN Unavailable [phone] Jv Liz Unavailable Encounter Details Date Type Department Care Team (Late st Contact Info) Description 06/21/2018 Transcribe Orders [facility] Specimen Processing 30 [place] [address] Beatriz Donaldson, DIRECTOR STYLE [address] [place] [address] Routine general medical examination at a health care facility (Primary Dx); Sjogren's syndrome with lung involvement; Inflammatory arthritis; 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, retirement, current use Social History Tobacco Use Types [...] Description 08/24/2025 1:30 PM EST Office [facility] [address] [place] [address] Johann Hanson, TIFFANIE [address] [facility], [address] [place] [address] [email or web address] 09/10/2025 9:00 AM EST Office Visit [facility] Gastro[facility]ology Clinic [address] [place] [address] Unknown, Unknown, Shreyas Limon MD [address] [place] [address] 09/21/2025 2:30 PM EST Office Visit [facility], All[facility] Critical [facility] Medicine 10 [facility] [place] [address] Lester Hicks MD [address] [place] [address] 10/07/2025 7:15 AM EST Appointment [facility] PFT Lab [address] [place] [address] Lester Hicks MD [address] [place] [address] 10/13/2025 9:20 AM EST Office Visit [facility] [address] [place] [address] Doretha Glynn MD [address] [place] [address] [email or web address] 12/22/2025 8:30 AM EDT Office Visit [address] [place] [address] Johann Hanson, MAIN LINE ASSEMBLER [address] [place] [address], [address] [place] [address] [email or web address] 06/30/2026 8:00 AM EDT Office Visit [address] [place] [address] Johann Hanson, MAIN LINE ASSEMBLER [address] [place] [address], [address] [place] [address] [email or web address] documented as of this encounter Procedures Procedure Name Priority Date/Time Associated Diagnosis Comments IRON Routine 06/21/2018 4:35 PM EDT Routine general medical examination at a health care facility COMPREHENSIVE METABOLIC PANEL (CMP) Routine 06/21/2018 4:35 PM EDT Sjogren's syndrome with lung involvement Inflammatory arthritis 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, retirement, current use SEDIMENTATION RATE (ESR) Routine 06/21/2018 4:35 PM EDT Sjogren's syndrome with lung involvement Inflammatory arthritis 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, telecommunications linesworker, current use CBC AND DIFFERENTIAL Routine 06/21/2018 4:35 PM EDT Sjogren's syndrome with lung involvement Inflammatory arthritis 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, telecommunications linesworker, current use COMPLEMENT C3 Routine 06/21/2018 4:35 PM EDT Sjogren's syndrome with lung involvement Inflammatory arthritis 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, telecommunications linesworker, current use COMPLEMENT C4 Routine 06/21/2018 4:35 PM EDT Sjogren's syndrome with lung involvement Inflammatory arthritis 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, telecommunications linesworker, current use C-REACTIVE PROTEIN (CRP) Routine 06/21/2018 4:35 PM EDT Sjogren's syndrome with lung involvement Inflammatory arthritis 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, telecommunications linesworker, current use THYROID STIMULATING HORMONE (TSH) Routine 06/21/2018 4:35 PM EDT Routine general medical examination at a health care facility FERRITIN Routine 06/21/2018 4:35 PM EDT Routine general medical examination at a health care facility documented in this encounter Results * Complement C4 (06/21/2018 4:35 PM EDT) COMPLEMENT C4 23 14 - 40 mg/dL [facility] OF LAB MED AND PAT+ Blood 06/21/2018 4:35 PM EDT 06/22/2018 1:28 PM EDT us Margaux Montanez MD LAB BLOOD BKR ORDERABLES Final Result [facility]PT OF LAB MED AND PAT+ [address] [place] [address] * Complement C3 (06/21/2018 4:35 PM EDT) COMPLEMENT C3 116 75 - 175 mg/dL [facility] OF LAB MED AND PAT+ Blood 06/21/2018 4:35 PM EDT 06/22/2018 1:28 PM EDT us Margaux Montanez MD LAB BLOOD BKR ORDERABLES Final Result Performing Organization Address City/[facility] [place]/ZIP Co de Phone Number [facility] OF LAB MED AND PAT+ [address] [place] [address] * Sedimentation rate (ESR) (06/21/2018 4:35 PM EDT) ESR 4 0 - 30 mm/h [facility] Blood 06/21/2018 4:35 PM EDT 06/21/2018 5:56 PM EDT us Margaux Montanez MD LAB BLOOD BKR ORDERABLES Final Result Performing Organization Address City/[facility] [place]/ZIP Co de Phone Number [address] [address] * C-Reactive Protein (06/21/2018 4:35 PM EDT) C REACTIVE PROTEIN 0.5 0.0 - 4.0 mg/L [facility] Blood 06/21/2018 4:35 PM EDT 06/21/2018 5:56 PM EDT us Margaux Montanez MD LAB BLOOD BKR ORDERABLES Final Result Performing Organization Address City/[facility] [place]/ZIP Co de Phone Number [address] [address] * Comprehensive metabolic panel (06/21/2018 4:35 PM EDT) SODIUM 144 133 - 146 mmol/L [facility] POTASSIUM 3.6 3.3 - 5.1 mmol/L [facility] CHLORIDE 100 96 - 108 mmol/L [facility] CO2 30 21 - 35 mmol/L [facility] BUN 13 6 - 19 mg/dL [facility] CREATININE 0.70 0.5 - 1.5 mg/dL [facility] GLUCOSE 89 70 - 99 mg/dL [facility] ALBUMIN 4.3 3.9 - 4.8 g/dL [facility] TOTAL PROTEIN 6.7 6.5 - 8.0 g/dL [facility] CALCIUM 9.9 8.4 - 10.3 mg/dL [facility] ALKALINE PHOSPHATASE 59 39 - 117 U/L [facility] TOTAL BILIRUBIN 0.2 0.0 - 1.2 mg/dL [facility] AST 22 0 - 37 U/L [facility] ALT 16 0 - 40 U/L [facility] GLOBULIN 2.4 1 - 4.8 g/dL [facility] EGFR 97 >59 mL/min/1.7 3m2 [facility] Comment:If patient is black, multiply result by 1.159. Estimated glomerular filtration rate calculated using the CKD-EPI equation. ANION GAP 18 10 - 20 mmol/L [facility] Blood 06/21/2018 4:35 PM EDT 06/21/2018 5:56 PM EDT us Margaux Montanez MD LAB BLOOD BKR ORDERABLES Final Result [facility] [address] [place] [address] * CBC and differential (06/21/2018 4:35 PM EDT) WBC 5.00 3.40 - 11.20 K/uL [facility] RBC 4.23 3.80 - 4.80 M/uL [facility] HGB 13.2 12.0 - 15.0 g/dL [facility] HCT 39.5 36.0 - 46.0 % [facility] PLT 229 130 - 400 K/uL [facility] MCV 93.4 79.0 - 98.0 fL [facility] MCH 31.2 27.0 - 34.8 pg [facility] MCHC 33.4 31.5 - 36.0 g/dL [facility] RDW 12.9 10.8 - 14.6 % [facility] MPV 10.5 9.4 - 12.4 fl [facility] NRBC 0.00 /100 WBCs [facility] ABSOLUTE NRBC 0.00 K/uL [facility] DIFF METHOD Auto [facility] NEUTS 53.8 45.30 - 77.70 % [facility] LYMPHS 34.4 12.30 - 39.70 % [facility] MONOS 8.2 4.10 - 12.80 % [facility] EOS 2.6 0 - 7.2 % [facility] BASOS 0.8 0 - 2.80 % [facility] Granulocytes, immature (%) 0.2 0.0 - 0.9 % [facility] ABSOLUTE NEUTS 2.69 1.40 - 7.70 K/uL [facility] ABSOLUTE LYMPHS 1.72 0.60 - 3.20 K/uL [facility] ABSOLUTE MONOS 0.41 0.11 - 0.59 K/uL [facility] ABSOLUTE EOS 0.13 0.01 - 0.50 K/uL [facility] ABSOLUTE BASOS 0.04 0.00 - 0.08 K/uL [facility] Granulocytes, immature 0.01 0.00 - 0.05 K/uL [facility] Blood 06/21/2018 4:35 PM EDT 06/21/2018 5:56 PM EDT us Margaux Montanez MD LAB BLOOD BKR ORDERABLES Final Result [facility] [address] [place] [address] * Ferritin (06/21/2018 4:35 PM EDT) FERRITIN 43 13 - 150 ug/L [facility] Blood 06/21/2018 4:35 PM EDT 06/21/2018 5:56 PM EDT us Beatriz Donaldson DIRECTOR STYLE LAB BLOOD BKR ORDERABLES Fin al Result Performing Organization Address [facility] [place]/[facility] Co de Phone Number [address] [address] * Iron (06/21/2018 4:35 PM EDT) IRON 64 30 - 160 ug/dL [facility] Blood 06/21/2018 4:3 5 PM EDT 06/21/2018 5:56 PM EDT Beatriz Donaldson DIRECTOR STYLE LAB BLOOD ORDERABLES Final R esult Performing Organization Address [facility] de Phone Number [address] [address] * (ABNORMAL) TSH (06/21/2018 4:35 PM EDT) TSH 0.04(L) 0.27 - 4.20 uIU/mL [facility] Blood 06/21/2018 4:35 PM EDT 06/21/2018 5:56 PM EDT Beatriz Torreshard DIRECTOR STYLE LAB BLOOD BKR ORDERABLES Fin al Result Performing Organization Address [facility] de Phone Number [address] [address] documented in this encounter Visit Diagnoses Diagnosis Routine general medical examination at a health care facility- Primary Sjogren's syndrome with lung involvement Inflammatory arthritis Unspecified inflammatory polyarthropathy 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, retirement, current use documented in this encounter Additional Health Concerns Infection Onset Date Last Indicated Resolved Time CoV-Presumed 05/27/2022 05/27/2022 06/17/2022 1:21 AM EDT CoV-Presumed Comment:COVID-19 Added 10/12/2022 10/12/2022 10/13/2022 6:26 P M EST COVID-19 10/13/2022 10/13/2022 11/03/2022 1:21 AM EST COVID-19 10/07/2023 10/07/2023 10/28/2023 1:21 AM EST documented as of this encounter Care Teams Template Worker Relationship Specialty Start Date End Date Beatriz Donaldson DIRECTOR STYLE [address] [place] [address] PCP - General Family Medicine 10/04/17 04/11/20 Mamta Whitney DO [address] [place] [address] [email or web address] PCP - General Family Medicine 04/12/20 02/08/21 Mamta Whitney DO [address] [place] [address] [email or web address] PCP - General Family Medicine 02/10/21 02/10/21 Johann Hanson CNP [address] [place] [address], [address] [place] [address] [email or web address] PCP - General Family Medicine 02/11/21 Tricia Balderas DO [address] [place] [address] [email or web address] Historical LMR Provider 07/28/17 10/15/21 Lester Hicks MD [address] [place] [address] [email or web address] Historical LMR Provider 07/28/17 Margaux Montanez MD [address] [place] [address], [address] [place] [address] [email or web address] Historical LMR Provider 07/28/17 Demario Floyd MD [address] [place] [address] [email or web address] Historical LMR Provider 07/28/17 10/15/21 Pam Benson MD [address] [place] [address] [email or web address] Historical LMR Provider 07/28/17 10/15/21 Adithya Campos MAIN LINE ASSEMBLER [address] [place] [address] [email or web address] Historical LMR Provider 07/28/17 12/25/21 Beatriz Donaldson NP [address] [place] [address] Historical LMR Provider 07/28/17 04/11/20 Khang Kilgore MD [address] [place] [address], [address] [place] [address] [email or web address] Insurance Assigned Provider 01/12/24 Luis Ignacio DO [address] [place] [address], [address] [place] [address] [email or web address] Cardiology 06/28/22 06/16/24 Flo Esteban MD [address] [place] [address] [place] [address] [email or web address] [email or web address] Surgery 06/28/22 06/16/24 Dilan Rowland MD [address] [place] [address], [address] [place] [address] Insurance Assigned Provider 07/15/22 08/13/22 Corby Prado MD [address] [place] [address], [address] [place] [address] Insurance Assigned Provider 08/13/22 09/16/22 Neisha Pinto RN [address] [place] [address], [address] [place] [address] [email or web address] PHCM Preparation Operator 02/26/23 06/10/25 Shreyas [place] MD [address] [place] [address] Gastroenterology 06/17/24 Doretha Glynn MD [address] [place] [address] [address] [place] [address] Endocrinology 06/17/24 Izzy Hackett [address] [place] [address] [email or web address] PHC Community Commercial Lines Account Executive 09/11/24 09/11/24 Radha Pereira, RN [address] [place] [address] PHCM Preparation OperatorBar Tacker Sewing Machine 06/11/25 Jv Liz [address] [place] [address] Field Cashier 08/12/25 08/12/25 documented as of this encounter Additional Source Comments The information contained in this document represents components of the legal health record. It is not the complete legal health record.[facility]
--- OUTSIDE RECORDS SUMMARY | 2025-08-19 17:49 | XMS_ITS | Encounter Summary ---
Author Organization [facility] Address [address] [place] [address] [place] [address] Phone Care Team Providers Care Access Director Name Role Phone Lester Hicks MD Unavailable Margaux Montanez MD Unavailable Johann Hanson CNP Primary Care Provider [phone] Khang Kilgore MD Unavailable Luis Ignacio DO Unavailable Flo Esteban MD Unavailable [phone] Dilan Rowland MD Unavailable [phone] Corby Prado MD Unavailable [phone] Neisha Pinto RN Unavailable [email or web address] Shreyas [place] MD Unavailable [phone] Doretha Glynn MD Unavailable Izzy Hackett Unavailable [email or web address] Radha Pereira RN Unavailable Jv Liz Unavailable Encounter Details Date Type Department Care Team (Late st Contact Info) Description 02/10/2022 Procedure Pass Echo Lab [address] [place] [address] Social History Tobacco Use Types Packs/Day Years [...] high school, GED, job training, learning the [place] language, technical skills, or developing parenting skills)? [...] EST Office Visit [facility] [place] [facility] [place] [address] Johann Hanson, TIFFANIE 22 [facility], [address] [place] [address] [email or web address] 09/10/2025 9:00 AM EST Office Visit [facility] 10 [place] [address] Unknown, [place], Shreyas Limon MD [address] [address] 09/21/2025 2:30 PM EST Office Visit [facility] 10 [place] [address] Lester Hicks MD [address] [place] [address] 10/07/2025 7:15 AM EST Appointment [facility] Lab 30 [place] [address] Lester Hicks MD [address] [place] [address] 10/13/2025 9:20 AM EST Office Visit [facility] [address] [place] [address] Doretha Glynn MD [address] [place] [address] [email or web address] 12/22/2025 8:30 AM EDT Office Visit [address] [place] [address] Johann Hanson, RETAIL SALES VITAMIN CONSULTANT [address] [place] [address], [address] [place] [address] [email or web address] 06/30/2026 8:00 AM EDT Office Visit [address] [address] SantJohann evans CNP 22 [facility], [address] [place] [address] [email or web address] documented as of this encounter [...] documented as of this encounter Care Teams Access Director Relationship Specialty Start Date End Date Johann Hanson CNP [address] [place] [address], [address] [place] [address] [email or web address] PCP - General Family Medicine 02/11/21 Lester Hicks MD [address] [place] [address] [email or web address] Historical LMR Provider 07/28/17 Margaux Montanez MD [address] [place] [address], [address] [place] [address] [email or web address] Historical LMR Provider 07/28/17 Khang Kilgore MD [address] [place] [address], [address] [place] [address] Insurance Assigned Provider 01/12/24 Luis Ignacio DO [address] [place] [address], [address] [place] [address] Cardiology 06/28/22 06/16/24 Flo Esteban MD [address] [place] [address] [email or web address] Cardiothoracic Surgery 06/28/22 06/16/24 Dilan Rowland MD [address] [place] [address], [address] [place] [address] Insurance Assigned Provider 07/15/22 08/13/22 Corby Prado MD [address] [place] [address], [address] [place] [address] Insurance Assigned Provider 08/13/22 09/16/22 Neisha Pinto RN [address] [place] [address], [address] [place] [address] [email or web address] [email or web address] Professional Bass Fisherman 02/26/23 06/10/25 Shreyas [place] MD [address] [place] [address] Gastroenterology 06/17/24 Doretha Glynn MD [address] [place] [address] [address] [place] [address] Endocrinology 06/17/24 Izzy Hackett [address] [place] [address] [email or web address] PHCM Community Associate Program Manager 09/11/24 09/11/24 Radha Pereira, RN 10 [place] [address] [email or web address] PHCM Professional Bass FishermanOnline Program Coordinator 06/11/25 Jv Liz [address] [place] [address] [email or web address] Bituminous Paving Machine Operator 08/12/25 08/12/25 documented as of this encounter Additional Source Comments The information contained in this document represents components of the legal health record. It is not the complete legal health record.[facility]
--- OUTSIDE RECORDS SUMMARY | 2025-08-19 17:49 | XMS_ITS | Encounter Summary ---
Author Organization [facility] Address [address] [place] [address] [place] [address] Phone Care Team Providers Care Esl Professor Name Role Phone Lester Hicks MD Unavailable [phone] Margaux Montanez MD Unavailable [phone] Johann Hanson CNP Primary Care Provider [phone] Khang Kilgore MD Unavailable [phone] Shreyas [place] MD Unavailable Doretha Glynn MD Unavailable [phone] Radha Pereira RN Unavailable Jv Liz Unavailable Encounter Details Date Type Department Care Team (Late st Contact Info) Description 08/07/2025 Orders Only [facility] [place] [facility] [address] [place] [address] Provider, MD Cesraio [address] [place] [address] Social History Tobacco Use Types Packs/Day Years [...] high school, GED, job training, learning the [place] language, technical skills, or developing parenting [...] 08/24/2025 1:30 PM EST Office Visit [facility] [address] [place] [address] [place] [address] Johann Hanson, DISTILLATION OPERATOR 22 [facility], [address] [place] [address] [email or web address] 09/10/2025 9:00 AM EST Office Visit [facility] [address] [place] [address] Unknown, Unknown, Shreyas Limon MD [address] [place] [address] 09/21/2025 2:30 PM EST Office Visit [facility] 10 [place] [address] Lester Hicks MD [address] [place] [address] 10/07/2025 7:15 AM EST Appointment [facility] 30 [place] [address] Lester Hicks MD [address] [place] [phone] 10/13/2025 9:20 AM EST Office Visit [facility] [address] [place] [address] Doretha Glynn MD [address] [place] [address] [email or web address] 12/22/2025 8:30 AM EDT Office Visit [address] [place] [address] Johann Hanson CNP 22 [facility], [address] [place] [address] [email or web address] 06/30/2026 8:00 AM EDT Office Visit [address] [place] [address] Johann Hanson CNP [address] [place] [address], [address] [place] [address] [email or web address] documented as of this encounter Procedures Procedure Name Priority Date/Time Associated Diagnosis Comments OUTSIDE IMAGING Routine 08/07/2025 4:14 PM EDT documented in this encounter Results * Outside Imaging Report Only (08/07/2025 4:14 PM EDT) us Historical Provider MD MOSS XR CHEST Final Res ult documented in this encounter Visit Diagnoses Not on filedocumented in this encounter Additional Health Concerns Assessment Noted Time PHQ-9 Depression Total Score: 4 10/29/19 24 1:54 PM EST PHQ-2 Depression Total Score: 0 06/23/20 25 12:32 PM EDT documented as of this encounter Care Teams Esl Professor Relationship Specialty Start Date End Date Johann Hanson CNP [address] [place] [address], [address] [place] [address] PCP - General Family Medicine 02/11/21 Lester Hicks MD [address] [place] [address] Historical LMR Provider 07/28/17 Margaux Montanez MD 22 [facility], [address] [place] [address] Historical LMR Provider 07/28/17 Khang Kilgore MD 22 [facility], [address] [place] [address] Insurance Assigned Provider 01/12/24 Shreyas [place] MD [address] [place] [address] Gastroenterology 06/17/24 Doretha Glynn MD [address] [address] Endocrinology 06/17/24 Radha Pereira, RN [address] [place] [address] PHCM Glove BoarderManager Infusion 06/11/25 Jv Liz [address] [place] [address] City Superintendent Of Schools 08/12/25 08/12/25 documented as of this encounter Additional Source Comments The information contained in this document represents components of the legal health record. It is not the complete legal health record.[facility]
--- OUTSIDE RECORDS SUMMARY | 2025-08-19 17:49 | XMS_ITS | Encounter Summary ---
Author Organization [facility] Address [address] [place] [address] Phone Care Team Providers Care Supervisor Dials Name Role Phone Beatriz Donaldson ORE GRADER Primary Care Provider [phone] Tricia Balderas DO Unavailable [phone] Lester Hicks MD Unavailable [phone] Margaux Montanez MD Unavailable [phone] Demario Floyd MD Unavailable Pam Benson MD Unavailable [phone] Adithya Campos HOST AND HOSTESS Unavailable [phone] Beatriz Donaldson ORE GRADER Unavailable [phone] Beatriz Donaldson ORE GRADER Primary Care Provider [phone] Mamta Whitney DO Primary Care Provider [phone] Mamta Whitney DO Primary Care Provider [phone] Johann Hanson HOST AND HOSTESS Primary Care Provider [phone] Khang Kilgore MD Unavailable Luis Ignacio DO Unavailable Flo Esteban MD Unavailable Dilan Rowland MD Unavailable [phone] Corby Prado MD Unavailable [phone] Neisha Pinto RN Unavailable [email or web address] Shreyas Wilson MD Unavailable Doretha Glynn MD Unavailable [phone] Izzy Hackett Unavailable sami Radha Pereira RN Unavailable Jv Liz Unavailable Encounter Details Date Type Department Care Team (Late st Contact Info) Description 09/03/2017 Ancillary Orders [facility] External Provider Virtual Department [address] [place] [address] Beatriz Donaldson, ORE GRADER [address] [place] [address] Breast screening Social History Tobacco Use Types [...] Description 08/24/2025 1:30 PM EST Office Visit [facility] [place] [address] [place] [address] Johann Hanson, TIFFANIE [address] [facility], [address] [place] [address] [email or web address] 09/10/2025 9:00 AM EST Office Visit [facility] [address] [place], [place] [phone] Unknown, Unknown, Shreyas Limon MD [address] [place] [address] [id number] 09/21/2025 2:30 PM EST Office Visit [facility] 10 [place] [address] Lester Hicks MD [address] [place] [address] 10/07/2025 7:15 AM EST Appointment [facility] [address] [place] [address] Lester Hicks MD [address] [place] [address] 10/13/2025 9:20 AM EST Office Visit [facility] [address] [place] [address] [place] [address] Doretha Glynn MD [address] [place] [address] [email or web address] 12/22/2025 8:30 AM EDT Office Visit [address] [place] [address] Johann Hanson, HOST AND HOSTESS [address] [place] [address], [address] [place] [address] [email or web address] 06/30/2026 8:00 AM EDT Office Visit [address] [place] [address] Johann Hanson, HOST AND HOSTESS [address] [place] [address], [address] [place] [address] [email or web address] documented as of this encounter [...] There are scattered fibroglandular densities. POS - [id number] Narrative 08/12/2018 12:17 PM EST Full-field digital [...] There are scattered fibroglandular densities. POS - [id number] Beatriz Donaldson ORE GRADER IMG MG EXAMS Final Result documented in [...] as of this encounter Care Teams Supervisor Dials Relationship Specialty Start Date End Date Beatriz Donaldson NP PCP - General 07/26/17 10/03/17 Beatriz Donaldson ORE GRADER PCP - General Family Medicine 10/04/17 04/11/20 Mamta Whitney DO [address] [place] [address] [email or web address] PCP - General Family Medicine 04/12/20 02/08/21 Mamta Whitney DO [address] [place] [address] [email or web address] PCP - General Family Medicine 02/10/21 02/10/21 Johann Hanson CNP [facility], [address] [place] [address] [email or web address] PCP - General Family Medicine 02/11/21 Tricia Balderas DO 30 [place] [address] [email or web address] Historical LMR Provider 07/28/17 10/15/21 Lester Hicks MD [address] [place] [address] [email or web address] Historical LMR Provider 07/28/17 Margaux Montanez MD [address] [place] [address], [address] [place] [address] [email or web address] Historical LMR Provider 07/28/17 Demario Floyd MD [address] [place] [address] [email or web address] Historical LMR Provider 07/28/17 10/15/21 Pam Benson MD [address] [place] [address] [email or web address] Historical LMR Provider 07/28/17 10/15/21 Adithya Campos, HOST AND HOSTESS [address] [place] [address] [email or web address] Historical LMR Provider 07/28/17 12/25/21 Beatriz Donaldson, ORE GRADER [address] [place] [address] Historical LMR Provider 07/28/17 04/11/20 Khang Kilgore MD [address] [place] [address], [address] [place] [address] Insurance Assigned Provider 01/12/24 Luis Ignacio DO [address] [place] [address], [address] [place] [address] Cardiology 06/28/22 06/16/24 Flo Esteban MD [address] [place] [address] [place] [address] [email or web address] Cardiothoracic Surgery 06/28/22 06/16/24 Dilan Rowland MD [address] [place] [address], [address] [place] [address] [email or web address] Insurance Assigned Provider 07/15/22 08/13/22 Corby Prado MD [address] [place] [address], [address] [place] [address] [email or web address] Insurance Assigned Provider 08/13/22 09/16/22 Neisha Pinto, RANDI [address] [place] [address], [address] [place] [address] [email or web address] 02/26/23 06/10/25 Shreyas Wilson MD [address] [place] [address] Gastroenterology 06/17/24 Doretha Glynn MD [address] [place] [address] 3[address] [place] [address] Endocrinology 06/17/24 Izzy Hackett [address] [place] [address] [email or web address] PHCM Community Diesel Locomotive Crane Operator 09/11/24 09/11/24 Radha Pereira, RN [address] [place] [address] [email or web address] PHCM Emt BBiostatistics Professor 06/11/25 Jv Liz [address] [place] [address] [email or web address] Customer Operations Specialist 08/12/25 08/12/25 documented as of this encounter Additional Source Comments The information contained in this document represents components of the legal health record. It is not the complete legal health record.[facility]
--- OUTSIDE RECORDS SUMMARY | 2025-08-19 17:49 | XMS_ITS | Encounter Summary ---
Author Organization [facility] Address [address] [place] [address] [place] [address] Phone Care Team Providers Care Level Vial Inside Grinder Name Role Phone Lester Hicks MD Unavailable [phone] Margaux Montanez MD Unavailable [phone] Johann Hanson CNP Primary Care Provider [phone] Khang Kilgore MD Unavailable [phone] Luis Ignacio DO Unavailable Flo Esteban MD Unavailable [phone] Neisha Pinto RN Unavailable [email or web address] Shreyas Wilson MD Unavailable Doretha Glynn MD Unavailable [phone] Izzy Hackett Unavailable [email or web address] Radha Pereira RN Unavailable Jv Liz Unavailable Encounter Details Date Type Department Care Team (Latest Contact Info) Description 12/28/2023 Transcribe Orders [facility] Department [address] [place], [place] [phone] Shreyas Wilson MD [address] [place] [address] [phone] [email or web address] Dysphagia, unspecified type (Primary Dx); Nausea and [...] high school, GED, job training, learning the Israeli language, technical skills, or developing parenting skills)? [...] Description 08/24/2025 1:30 PM EST Office Visit [facility] [address] [place] [address] [place] [address] Johann Hanson, BANQUET HOUSEPERSON [address] [facility], [address] [place] [address] [email or web address] 09/10/2025 9:00 AM EST Office Visit [facility] [address] [place] [address] Unknown, Unknown, Shreyas Limon MD [address] [place] [address] 09/21/2025 2:30 PM EST Office Visit [facility] 10 [place] [address] Lester Hicks MD [address] [place] [address] 10/07/2025 7:15 AM EST Appointment [facility] [address] [place] [address] Lester Hicks MD [address] [place] [address] [phone] 10/13/2025 9:20 AM EST Office Visit [facility] [address] [place] [address] Doretha Glynn MD [address] [place] [address] [email or web address] 12/22/2025 8:30 AM EDT Office Visit [address] [place] [address] Johann Hanson, BANQUET HOUSEPERSON [address] [facility], [address] [place] [address] [email or web address] 06/30/2026 8:00 AM EDT Office Visit [address] [place] [address] Johann Hanson, BANQUET HOUSEPERSON [address] [place] [address], [address] [place] [address] [email or web address] documented as of this encounter [...] documented as of this encounter Care Teams Level Vial Inside Grinder Relationship Specialty Start Date End Date Johann Hanson CNP [address] [place] [address], [address] [place] [address] PCP - General Family Medicine 02/11/21 Lester Hicks MD [address] [place] [address] Historical LMR Provider 07/28/17 Margaux Montanez MD [address] [place] [address], [address] [place] [address] [email or web address] Historical LMR Provider 07/28/17 Khang Kilgore MD [address] [place] [address], [address] [place] [address] Insurance Assigned Provider 01/12/24 Luis Ignacio DO [address] [facility], [address] [place] [address] Cardiology 06/28/22 06/16/24 Flo Esteban MD [address] [place] [address] [email or web address] Cardiothoracic Surgery 06/28/22 06/16/24 Neisha Pinto RN [address] [place] [address] [email or web address] PHCM Assistant Passenger Locomotive Engineer 02/26/23 06/10/25 Shreyas Wilson MD [address] [place] [address] Gastroenterology 06/17/24 Doretha Glynn MD 22 [facility] [address] [place] [address] Endocrinology 06/17/24 Izzy Hackett 10 [place] [address] [email or web address] PHC Community Electrical Logger 09/11/24 09/11/24 Radha Pereira RN [address] [place] [address] PHCM Assistant Passenger Locomotive EngineerOracle Consultant 06/11/25 Jv Liz [address] [place] [address] Reliability Manager 08/12/25 08/12/25 documented as of this encounter Additional Source Comments The information contained in this document represents components of the legal health record. It is not the complete legal health record.[facility]
--- OUTSIDE RECORDS SUMMARY | 2025-08-19 17:49 | XMS_ITS | Encounter Summary ---
Author Organization [facility] Address [address] [place] [address] [place] [address] Phone Care Team Providers Care Chief Meter Reader Name Role Phone Lester Hicks MD Unavailable [phone] Margaux Montanez MD Unavailable Johann Hanson CNP Primary Care Provider [phone] Khang Kilgore MD Unavailable [phone] Luis Ignacio DO Unavailable Flo Esteban MD Unavailable [phone] Neisha Pinto RN Unavailable [email or web address] Shreyas Wilson MD Unavailable Doretha Glynn MD Unavailable [phone] Izzy Hackett Unavailable [email or web address] Radha Pereira RN Unavailable Jv Liz Unavailable Encounter Details Date Type Department Care Team (Late st Contact Info) Description 12/07/2022 Procedure Pass [facility], Ct Scan - [address] [phone] Social History Tobacco Use Types Packs/Day Years [...] high school, GED, job training, learning the Syrian language, technical skills, or developing parenting skills)? [...] 12/07/2022 9:18 AM Alise Hamilton, RN * [place] Suicide Severity Rating Scale (Screener/Recent Self-Report) Question Answer Date of Assessment Author 1. Wish to be (Past 1 Month) No 023 9:18 AM Alise Lindo, RN 2. Non-Specific Active Suici ronald Thoughts (Past 1 Month) No 12/07/2022 9:18 AM EST Michelle, Alise L, RN 6. Suicidal Behavior (Lifetime) No 9:18 AM EST Alise Martinez RN documented as of this encounter Plan of Treatment Upcoming Encounters Date Type Department Care Team (Late st Contact Info) Description 08/24/2025 1:30 PM EST Office Visit [facility] [address] [place] [address] Johann Hanson, CLINICAL PROFESSOR 22 [facility], [address] [place] [address] [email or web address] 09/10/2025 9:00 AM EST Office Visit [facility] [address] [place] [address] Unknown, Unknown, Shreyas Limon MD [address] [place] [address] 09/21/2025 2:30 PM EST Office Visit [facility] 10 [place] [address] Lester Hicks MD [address] [place] [address] [phone] 10/07/2025 7:15 AM EST Appointment [facility] [address] [place] [address] [phone] Lester Hicks MD [address] [place] [address] 10/13/2025 9:20 AM EST Office Visit [facility] [address] [place] [address] Doretha Glynn MD [address] [place] [address] [email or web address] 12/22/2025 8:30 AM EDT Office Visit [facility] [address] [place] [address] Johann Hanson CNP 22 [facility], [address] [place] [address] [email or web address] 06/30/2026 8:00 AM EDT Office Visit [facility] [address] [place] [address] Johann Hanson CNP 22 [facility], [address] [place] [address] [email or web address] documented as of this encounter Visit Diagnoses Not on filedocumented in this encounter Additional Health Concerns Infection Onset Date Last Indicated Resolved Time COVID-19 10/07/2023 10/07/2023 10/28/2023 1:21 AM EST Assessment Noted Time PHQ-2 Depression Total Score: 0 05/15/20 1:45 PM EDT documented as of this encounter Care Teams Chief Meter Reader Relationship Specialty Start Date End Date Johann Hanson CNP [address] [place] [address], [address] [place] [address] PCP - General Family Medicine 02/11/21 Lester Hicks MD [address] [place] [address] Historical LMR Provider 07/28/17 Margaux Montanez MD [address] [place] [address], [address] [place] [address] [email or web address] Historical LMR Provider 07/28/17 Khang Kilgore MD [address] [place] [address], [address] [place] [address] Insurance Assigned Provider 01/12/24 Luis Ignacio DO [address] [place] [address], [address] [place] [address] Cardiology 06/28/22 06/16/24 Flo Esteban MD [address] [place] [address] [email or web address] Cardiothoracic Surgery 06/28/22 06/16/24 Neisha Pinto RN [address] [place] [address] [email or web address] PHCM Agricultural Equipment Salesperson 02/26/23 06/10/25 Shreyas Wilson MD [address] [place] [address] Gastroenterology 06/17/24 Doretha Glynn MD [address] [place] [address] 3rd [place] [address] Endocrinology 06/17/24 Izzy Hackett [address] [place] [address] [email or web address] PHCM Community Hydraulic Press Tender 09/11/24 09/11/24 Radha Pereira RN [address] [place] [address] [email or web address] PHCM Agricultural Equipment SalespersonLoan Review Manager 06/11/25 Jv Liz [address] [place] [address] Java Manager 08/12/25 08/12/25 documented as of this encounter Additional Source Comments The information contained in this document represents components of the legal health record. It is not the complete legal health record.[facility]
--- OUTSIDE RECORDS SUMMARY | 2025-08-19 17:49 | XMS_ITS | Encounter Summary ---
Author Organization [facility] Address [address] [place] [address] [place] [address] Phone Care Team Providers Care Resident Care Manager Rn Name Role Phone Lester Hicks MD Unavailable [phone] Margaux Montanez MD Unavailable [phone] Johann Hanson CNP Primary Care Provider [phone] Khang Kilgore MD Unavailable Luis Ignacio DO Unavailable Flo Esteban MD Unavailable [phone] Dilan Rowlnad MD Unavailable [phone] Corby Prado MD Unavailable [phone] Neisha Pinto RN Unavailable [email or web address] Shreyas Wilson MD Unavailable Doretha Glynn MD Unavailable [phone] Izzy Hackett Unavailable [email or web address] Radha Pereira RN Unavailable Jv Liz Unavailable Encounter Details Date Type Department Care Team (Late st Contact Info) Description 02/10/2022 Procedure Pass Non-Invasive Cardiology [address] [place] [address] Social History Tobacco Use Types Packs/Day Years [...] EST Office Visit [facility] [place] [facility] [place] [address] Johann Hanson, TIFFANIE 22 [facility], [address] [place] [address] [email or web address] 09/10/2025 9:00 AM EST Office Visit [facility] 10 [place] [address] Unknown, [place], Shreyas Limon MD [address] [address] 09/21/2025 2:30 PM EST Office Visit [facility] 10 [place] [address] Lester Hicks MD [address] [place] [address] 10/07/2025 7:15 AM EST Appointment [facility] 30 [place] [address] Lester Hicks MD [address] [place] [address] 10/13/2025 9:20 AM EST Office Visit [facility] [address] [place] [address] Doretha Glynn MD [address] [place] [address] [email or web address] 12/22/2025 8:30 AM EDT Office Visit [address] [place] [address] Johann Hanson, PRINTING MACHINIST [address] [place] [address], [address] [place] [address] [email or web address] 06/30/2026 8:00 AM EDT Office Visit [address] [place] [address] SantJohann evans CNP 22 [facility], [address] [place] [address] [email or web address] documented [...] documented as of this encounter Care Teams Resident Care Manager Rn Relationship Specialty Start Date End Date Johann Hanson CNP [address] [place] [address], [address] [place] [address] [email or web address] PCP - General Family Medicine 02/11/21 Lester Hicks MD [address] [place] [address] [email or web address] Historical LMR Provider 07/28/17 Margaux Montanez MD [address] [place] [address], [address] [place] [address] [email or web address] Historical LMR Provider 07/28/17 Khang Kilgore MD [address] [place] [address], [address] [place] [address] Insurance Assigned Provider 01/12/24 Luis Ignacio DO [address] [place] [address], [address] [place] [address] Cardiology 06/28/22 06/16/24 Flo Esteban MD [address] [place] [address] [email or web address] Cardiothoracic Surgery 06/28/22 06/16/24 Dilan Rowland MD [address] [place] [address], [address] [place] [address] Insurance Assigned Provider 07/15/22 08/13/22 Corby Prado MD [address] [place] [address], [address] [place] [address] Insurance Assigned Provider 08/13/22 09/16/22 Neisha Pinto RN [address] [place] [address], [address] [place] [address] [email or web address] PHC Laundry Bag Punch Operator 02/26/23 06/10/25 Shreyas Wilson MD [address] [place] [address] Gastroenterology 06/17/24 Doretha Glynn MD [address] [place] [address] 3[address] [place] [address] Endocrinology 06/17/24 Izzy Hackett [address] [place] [address] [email or web address] PHCM Community Steward/Stewardess Room 09/11/24 09/11/24 Radha Pereira, RN 10 [place] [address] [email or web address] PHCM Laundry Bag Punch OperatorAddressing Machine Operator 06/11/25 Jv Liz [address] [place] [address] [email or web address] Draw Frame Operator 08/12/25 08/12/25 documented as of this encounter Additional Source Comments The information contained in this document represents components of the legal health record. It is not the complete legal health record.[facility]
--- OUTSIDE RECORDS SUMMARY | 2025-08-19 17:49 | XMS_ITS | Encounter Summary ---
Author Organization [facility] Address [address] [place] [address] [place] [address] Phone Care Team Providers Care Optical Mechanic Name Role Phone Lester Hicks MD Unavailable [phone] Margaux Montanez MD Unavailable Johann Hanson CNP Primary Care Provider [phone] Khang Kilgore MD Unavailable Luis Ignacio DO Unavailable [phone] Flo Esteban MD Unavailable [phone] Corby Prado MD Unavailable [phone] Neisha Pinto RN Unavailable [email or web address] Shreyas Wilson MD Unavailable [phone] Doretha Glynn MD Unavailable [phone] Izzy Hackett Unavailable [email or web address] Radha Pereira RN Unavailable Jv Liz Unavailable Encounter Details Date Type Department Care Team (Late st Contact Info) Description 08/15/2022 Procedure Pass [facility], Ct Scan - [address] [id number] Social History Tobacco Use Types Packs/Day Years [...] high school, GED, job training, learning the Iranian language, technical skills, or developing parenting skills)? [...] EST Office Visit [facility] [place] [facility] [address] [place] [address] Johann Hanson, TIFFANIE 22 [facility], [address] [place] [address] [email or web address] 09/10/2025 9:00 AM EST Office Visit [facility] 10 [place] [address] Unknown, [place], Shreyas Limon MD [address] [address] 09/21/2025 2:30 PM EST Office Visit [facility] 10 [place] [address] Lester Hicks MD [address] [place] [address] 10/07/2025 7:15 AM EST Appointment [facility] [address] [place] [address] Lester Hicks MD [address] [place] [address] 10/13/2025 9:20 AM EST Office Visit [facility] [address] [place] [address] Doretha Glynn MD [address] [place] [address] [email or web address] 12/22/2025 8:30 AM EDT Office Visit [address] [place] [address] Johann Hanson, DUMB WAITER OPERATOR [address] [place] [address], [address] [place] [address] [email or web address] 06/30/2026 8:00 AM EDT Office Visit [address] [place] [address] Johann Hanson, DUMB WAITER OPERATOR [address] [place] [address], [address] [place] [address] [email or web address] documented as of this encounter [...] documented as of this encounter Care Teams Optical Mechanic Relationship Specialty Start Date End Date Johann Hanson CNP [address] [place] [address], [address] [place] [address] PCP - General Family Medicine 02/11/21 Lester Hicks MD [address] [place] [address] Historical LMR Provider 07/28/17 Margaux Montanez MD [address] [place] [address], [address] [place] [address] [email or web address] Historical LMR Provider 07/28/17 Khang Kilgore MD [address] [place] [address], [address] [place] [address] Insurance Assigned Provider 01/12/24 Luis Ignacio DO [address] [place] [address], [address] [place] [address] Cardiology 06/28/22 06/16/24 Flo Esteban MD [address] [place] [address] [place] [address] [email or web address] Cardiothoracic Surgery 06/28/22 06/16/24 Corby Prado MD [address] [place] [address], [address] [place] [address] Insurance Assigned Provider 08/13/22 09/16/22 Neisha Pinto RN [address] [place] [address], [address] [place] [address] [email or web address] PHCM Life Insurance Actuary 02/26/23 06/10/25 Shreyas Wilson MD [address] [place] [address] Gastroenterology 06/17/24 Doretha Glynn MD [address] [place] [address] 3rd [place] [address] Endocrinology 06/17/24 Izzy Hackett [address] [place] [address] [email or web address] PHC Community Development Vice President 09/11/24 09/11/24 Radha Pereira, RN [address] [place] [address] PHCM Life Insurance ActuaryHorticulture Teacher 06/11/25 Jv Liz [address] [place] [address] Supervisor Brake Repair 08/12/25 08/12/25 documented as of this encounter Additional Source Comments The information contained in this document represents components of the legal health record. It is not the complete legal health record.[facility]
--- OUTSIDE RECORDS SUMMARY | 2025-08-19 17:49 | XMS_ITS | Encounter Summary ---
Author Organization [facility] Address [address] [place] [address] Phone Care Team Providers Care Geography Head Name Role Phone Tricia Balderas DO Unavailable Lester Hicks MD Unavailable [phone] Margaux Montanez MD Unavailable Demario Floyd MD Unavailable Pam Benson MD Unavailable Adithya Campos EXCAVATOR BACKHOE OPERATOR Unavailable Johann Hanson EXCAVATOR BACKHOE OPERATOR Primary Care Provider [phone] Khang Kilgore MD Unavailable Luis Ignacio DO Unavailable Flo Esteban MD Unavailable [phone] Dilan Rowland MD Unavailable [phone] Corby Prado MD Unavailable [phone] Neisha Pinto RN Unavailable [email or web address] Shreyas Wilson MD Unavailable Doretha Glynn MD Unavailable [phone] Izzy Hackett Unavailable sami Radha Pereira RN Unavailable JoJv hernandez Unavailable Encounter Details Date Type Department Care Team ([facility] Contact Info) Description 02/22/2021 Procedure Pass [facility], [address] [address] Social History Tobacco Use Types Packs/Day Years [...] high school, GED, job training, learning the Belarusian language, technical skills, or developing parenting skills)? [...] Upcoming Encounters Date Type Department Care Team ([facility] Contact Info) Description 08/24/2025 1:30 PM EST Office Visit [address] [place] [address] Johann Hanson, EXCAVATOR BACKHOE OPERATOR 22 [facility], [address] [place] [address] [email or web address] 09/10/2025 9:00 AM EST Office Visit [facility] 10 [place] [address] Unknown, Unknown, Shreyas Limon MD [address] [address] 09/21/2025 2:30 PM EST Office Visit [facility] 10 [place] [address] Lester Hicks MD [address] [place] [address] 10/07/2025 7:15 AM EST Appointment [facility] [address] [place] [address] Lester Hicks MD [address] [place] [address] 10/13/2025 9:20 AM EST Office Visit [facility] [address] [place] [address] Doretha Glynn MD [address] [place] [address] [email or web address] 12/22/2025 8:30 AM EDT Office Visit [address] [place] [address] Johann Hanson, EXCAVATOR BACKHOE OPERATOR [address] [place] [address], [address] [place] [address] [email or web address] 06/30/2026 8:00 AM EDT Office Visit [facility] 22 [place] [address] Johann Hanson CNP 22 [facility], [address] [place] [address] [email or web address] documented as of this encounter [...] documented as of this encounter Care Teams Geography Head Relationship Specialty Start Date End Date Johann Hanson CNP 22 [facility], [address] [place] [address] PCP - General Family Medicine 02/11/21 Tricia Balderas DO 30 [place] [address] [email or web address] Historical LMR Provider 07/28/17 10/15/21 Lester Hicks MD [address] [place] [address] [email or web address] Historical LMR Provider 07/28/17 Margaux Montanez MD [address] [place] [address], [address] [place] [address] [email or web address] Historical LMR Provider 07/28/17 Demario Floyd MD [address] [place] [address] [email or web address] Historical LMR Provider 07/28/17 2 Pam Benson MD [address] [place] [address], [address] [place] [address] [email or web address] Historical LMR Provider 07/28/17 Adithya Campos CNP [address] [place] [address], [address] [place] [address] [email or web address] Historical LMR Provider 07/28/17 12/25/21 Khang Kilgore MD [address] [place] [address], [address] [place] [address] [email or web address] Insurance Assigned Provider 01/12/24 Luis Ignacio DO [address] [place] [address], [address] [place] [address] Cardiology 06/28/22 06/16/24 Flo Esteban MD [address] [place] [address] [place] [address] [email or web address] Cardiothoracic Surgery 06/28/22 06/16/24 Dilan Rowland MD [address] [place] [address], [address] [place] [address] Insurance Assigned Provider 07/15/22 08/13/22 Corby Prado MD [address] [place] [address], [address] [place] [address] [email or web address] Insurance Assigned Provider 08/13/22 09/16/22 Neisha Pinto RN [address] [place] [address], [address] [place] [address] [email or web address] PHCM Indoor Sports Centre Manager 02/26/23 06/10/25 Shreyas Wilson MD [address] [place] [address] Gastroenterology 06/17/24 Doretha Glynn MD [address] [place] [address] 3[address] [place] [address] Endocrinology 06/17/24 Izzy Hackett [address] [place] [address] [email or web address] PHC Community Centrifugal Station Operator 09/11/24 09/11/24 Radha Pereira, RN [address] [place] [address] PHCM Indoor Sports Centre ManagerEsl Instructor 06/11/25 Jv Liz [address] [place] [address] Distillery Laborer 08/12/25 08/12/25 documented as of this encounter Additional Source Comments The information contained in this document represents components of the legal health record. It is not the complete legal health record.[facility]
--- OUTSIDE RECORDS SUMMARY | 2025-08-19 17:49 | XMS_ITS | Encounter Summary ---
Author Organization [facility] Address [address] [place] [address] [place] [address] Phone Care Team Providers Care Lab Aide Name Role Phone Tricia Balderas DO Unavailable Lester Hicks MD Unavailable [phone] Margaux Montanez MD Unavailable Demario Floyd MD Unavailable Pam Benson MD Unavailable [phone] Adithya Campos CIVIL MANAGER Unavailable Beatriz Donaldson PLUSH WEAVER Unavailable Beatriz Donaldson PLUSH WEAVER Primary Care Provider Mamta Whitney DO Primary Care Provider [phone] Mamta Whitney DO Primary Care Provider [phone] Johann Hanson CIVIL MANAGER Primary Care Provider [phone] Khang Kilgore MD Unavailable Luis Ignacio DO Unavailable Flo Esteban MD Unavailable [phone] Dilan Rowland MD Unavailable [phone] Corby Prado MD Unavailable [phone] Neisha Pinto RN Unavailable [email or web address] Shreyas Wilson MD Unavailable Doretha Glynn MD Unavailable [phone] Izzy Hackett Unavailable sami Radha Pereira RN Unavailable Jv Liz Unavailable Encounter Details Date Type Department Care Team (Late st Contact Info) Description 11/12/2019 Ancillary Orders Virtual Department 30 [place] [address] Beatriz Donaldson, EARL [address] [place] [address] Breast screening Social History Tobacco Use Types [...] Description 08/24/2025 1:30 PM EST Office Visit [facility] [address] [place] [address] Johann Hanson, TIFFANIE 22 [facility], [address] [place] [address] [email or web address] 09/10/2025 9:00 AM EST Office Visit [facility] G[facility]enterology Clinic 10 [place], [place] [phone] Unknown, Unknown, Shreyas Limon MD [address] [place] [id number] 09/21/2025 2:30 PM EST Office Visit [facility] [address] [place] [address] Lester Hicks MD [address] [place] [address] 10/07/2025 7:15 AM EST Appointment [facility] [address] [place] [address] Lester Hicks MD [address] [place] [address] 10/13/2025 9:20 AM EST Office Visit [facility] [address] [place] [address] [place] [address] Dorteha Glynn MD [address] [place] [address] [email or web address] 12/22/2025 8:30 AM EDT Office Visit [address] [place] [address] Johann Hanson, CIVIL MANAGER [address] [place] [address], [address] [place] [address] [email or web address] 06/30/2026 8:00 AM EDT Office Visit [address] [place] [address] Johann Hanson CIVIL MANAGER [address] [place] [address], [address] [place] [address] [email or web address] documented as of this encounter [...] documented as of this encounter Care Teams Lab Aide Relationship Specialty Start Date End Date Beatriz Donaldson, PLUSH WEAVER [address] [place] [address] PCP - General Family Medicine 10/04/17 04/11/20 Mamta Whitney DO [address] [place] [address] [email or web address] PCP - General Family Medicine 04/12/20 02/08/21 Mamta Whitney DO [address] [place] [address] [email or web address] PCP - General Family Medicine 02/10/21 02/10/21 Johann Hanson CNP 22 [facility], [address] [place] [address] [email or web address] PCP - General Family Medicine 02/11/21 Tricia Balderas DO 30 [place] [address] [email or web address] Historical LMR Provider 07/28/17 10/15/21 Lester Hicks MD [address] [place] [address] [email or web address] Historical LMR Provider 07/28/17 Margaux Montanez MD 22 [facility], [address] [place] [address] [email or web address] Historical LMR Provider 07/28/17 Demario Floyd MD [address] [place] [address] [email or web address] Historical LMR Provider 07/28/17 10/15/21 Pam Benson MD [address] [place] [address] [email or web address] Historical LMR Provider 07/28/17 10/15/21 Adithya Campos, CIVIL MANAGER [address] [place] [address] [email or web address] Historical LMR Provider 07/28/17 12/25/21 Beatriz Donaldson, PLUSH WEAVER [address] [place] [address] Historical LMR Provider 07/28/17 04/11/20 Khang Kilgore MD [address] [place] [address], [address] [place] [address] [email or web address] Insurance Assigned Provider 01/12/24 Luis Ignacio DO [address] [place] [address], [address] [place] [address] Cardiology 06/28/22 06/16/24 Flo Esteban MD [address] [place] [address] [email or web address] Cardiothoracic Surgery 06/28/22 06/16/24 Dilan Rowland MD [address] [place] [address], [address] [place] [address] Insurance Assigned Provider 07/15/22 08/13/22 Corby Prado MD [address] [place] [address], [address] [place] [address] [email or web address] Insurance Assigned Provider 08/13/22 09/16/22 Neisha Pinto RN [address] [place] [address], [address] [place] [address] [email or web address] Sheet Rock Finisher 02/26/23 06/10/25 Shreyas Wilson MD [address] [place] [address] [email or web address] Gastroenterology 06/17/24 Doretha Glynn MD [address] [place] [address] 3rd [place] [address] [email or web address] Endocrinology 06/17/24 Izzy Hackett [address] [place] [address] [email or web address] [facility] Community Forecast Analyst 09/11/24 09/11/24 Radha Pereira, RN [address] [place] [address] [phone] [email or web address] PHCM Sheet Rock FinisherAgricultural Economist 06/11/25 Jv Liz [address] [place] [address] [email or web address] [employer] Barista 08/12/25 08/12/25 documented as of this encounter Additional Source Comments The information contained in this document represents components of the legal health record. It is not the complete legal health record.[facility]
--- OUTSIDE RECORDS SUMMARY | 2025-08-19 17:49 | XMS_ITS | Encounter Summary ---
Author Organization [facility] Address [address] [place] [address] [place] [address] Phone Care Team Providers Care Digital Forensic Examiner Name Role Phone Tricia Balderas DO Unavailable Lester Hicks MD Unavailable [phone] Margaux Montanez MD Unavailable Demario Floyd MD Unavailable Pam Benson MD Unavailable Adithya Campos HEATING FIXTURE TENDER Unavailable Mamta Whitney DO Primary Care Provider [phone] Mamta Whitney DO Primary Care Provider [phone] Johann Hanson HEATING FIXTURE TENDER Primary Care Provider [phone] Khang Kilgore MD Unavailable Luis Ignacio DO Unavailable Flo Esteban MD Unavailable [phone] Dilan Rowland MD Unavailable [phone] Corby Prado MD Unavailable [phone] Neisha Pinto RN Unavailable [email or web address] Shreyas Wilson MD Unavailable Doretha Glynn MD Unavailable Izzy Hackett Unavailable sami Radha Pereira RN Unavailable Jv Liz Faraz Unavailable Encounter Details Date Type Department Care Team (Latest Contact Info) Description 04/14/2020 Transcribe Orders [facility] 10 [facility] 2nd [place] [address] Alise Winkler PA-C [address] [facility], [place] [place] [address] Fatigue, unspecified type (Primary Dx); Diarrhea, unspecified [...] 08/24/2025 1:30 PM EST Office Visit [facility] [address] [place] [address] Johann Hanson, TIFFANIE [address] [place] [address], [address] [place] [address] [email or web address] 09/10/2025 9:00 AM EST Office Visit [facility] 10 [place] [address] Unknown, Unknown, Shreyas Limon MD [address] [place] [address] 09/21/2025 2:30 PM EST Office Visit [facility], Allergy [facility] Critical Care Medicine 10 [place] [address] Lester Hicks MD [address] [place] [address] 10/07/2025 7:15 AM EST Appointment [facility] 30 [place] [address] Lester Hicks MD [address] [place] [address] 10/13/2025 9:20 AM EST Office Visit [facility] [address] [place] [address] Doretha Glynn MD [address] [place] [address] [email or web address] 12/22/2025 8:30 AM EDT Office Visit [address] [place] [address] Johann Hanson, HEATING FIXTURE TENDER [address] [place] [address], [address] [place] [address] [email or web address] 06/30/2026 8:00 AM EDT Office Visit [address] [place] [address] Johann Hanson, HEATING FIXTURE TENDER [address] [place] [address], [address] [address] [email or web address] documented as of this encounter Results * Giardia antigen screen (04/15/2020 4:18 PM EDT) ST GIARDIA ANTIGEN Negative Negative [facility] DPT OF LAB MED AND PAT+ Comment: (NOTE) ADDITIONAL INFORMATION Test Performed by Enzyme Immunoassay. Stool (Stool) 04/15/2020 4:1 8 PM EDT 04/15/2020 4:24 PM EDT us Alise Winkler PA-C LAB BODY FLUIDS AND STOOL ORDER AZUL Final Result Performing Organization Address City/[facility]/ZIP Co de Phone Number [facility] DPT OF LAB MED AND PAT+ [address] [place] [address] * Ova and parasites, stool (04/15/2020 8:00 AM EDT) Special Requests None 04/15/2020 4:19 PM EDT [facility] DIRECT EXAM NO PARASITES FOUND BY DIRECT OR CONCENTRATION METHODS 04/26/2020 10:47 AM EDT [facility] DIRECT EXAM No parasites found by Trichrome Stain 04/26/2020 10:47 AM EDT [facility] Stool (Stool) 04/15/2020 8:0 0 AM EDT 04/15/2020 4:24 PM EDT Alise Winkler PA-C LAB BODY FLUIDS AND STOOL ORDER AZUL Final Result Performing Organization Address [facility] Co de Phone Number [address] [address] * Fecal immunochemical test x1 (FIT) (04/15/2020 8:00 AM EDT) Immuno Fecal Occult Negative [facility] Stool (Stool) 04/15/2020 8:0 0 AM EDT 04/15/2020 4:23 PM EDT Alise Winkler PA-C LAB BODY FLUIDS AND STOOL ORDER AZUL Final Result Performing Organization Address [facility] Co de Phone Number [address] [address] * Fecal leukocyte examination (04/15/2020 8:00 AM EDT) Special Requests None 04/15/2020 4:19 PM EDT [facility] GRAM STAIN No WBC seen on smear. 04/16/2020 8:47 AM EDT [facility] Stool (Stool) 04/15/2020 8:0 0 AM EDT 04/15/2020 4:24 PM EDT us Alise Winkler PA-C LAB BODY FLUIDS AND STOOL ORDER AZUL Final Result Performing Organization Address [facility]/ZIP Co de Phone Number [address] [address] * Stool culture (04/15/2020 8:00 AM EDT) Special Requests None 04/15/2020 4:19 PM EDT [facility] Stool Culture NO SALMONELLA, SHIGELLA OR CAMPYLOBACTER ISOLATED 04/16/2020 8:09 AM EDT [facility] Stool (Stool) 04/15/2020 8:0 0 AM EDT 04/15/2020 4:24 PM EDT us Alise Winkler PA-C LAB MICROBIOLOGY CULTURE ORDERA BLES Final Result Performing Organization Address [facility]/ZIP Co de Phone Number [address] [address] * Immunoglobulin A (04/14/2020 12:05 PM EDT) IgA 84 70 - 400 mg/dL [facility] Blood 04/14/2020 12:0 5 PM EDT 04/14/2020 12:23 PM EDT us Alise Winkler PA-C LAB BLOOD BKR ORDERABLES Final Result Performing Organization Address City/[facility]/ZIP Co de Phone Number [address] [address] * Tissue transglutaminase IgA (04/14/2020 12:05 PM EDT) TTG IGA ANTIBODY <1.2 <4.0 (Negative) U/mL [facility] Blood 04/14/2020 12:0 5 PM EDT 04/14/2020 12:22 PM EDT us Alise Winkler PA-C LAB BLOOD BKR ORDERABLES Final Result [facility] [address] [place] [address] documented in this encounter Visit Diagnoses Diagnosis [...] documented as of this encounter Care Teams Digital Forensic Examiner Relationship Specialty Start Date End Date Mamta Whitney DO [address] [place] [address] [email or web address] PCP - General Family Medicine 04/12/20 02/08/21 Mamta Whitney DO [address] [place] [address] [email or web address] PCP - General Family Medicine 02/10/21 02/10/21 Johann Hanson CNP [address] [place] [address], [address] [place] [address] PCP - General Family Medicine 02/11/21 Tricia Balderas DO [address] [place] [address] [email or web address] Historical LMR Provider 07/28/17 10/15/21 Lester Hicks MD [address] [place] [address] [email or web address] Historical LMR Provider 07/28/17 Margaux Montanez MD [address] [place] [address], [address] [place] [address] [email or web address] Historical LMR Provider 07/28/17 Demario Floyd MD [address] [place] [address] [email or web address] Historical LMR Provider 07/28/17 2 Pam Benson MD [address] [place] [address] [email or web address] Historical LMR Provider 07/28/17 Adithya Campos, HEATING FIXTURE TENDER [address] [place] [address] Historical LMR Provider 07/28/17 12/25/21 Khang Kilgore MD [address] [place] [address], [address] [place] [address] Insurance Assigned Provider 4/6/24 Luis Ignacio DO [address] [place] [address], [address] [place] [address] Cardiology 06/28/22 06/16/24 Flo Esteban MD [address] [place] [address] [place] [address] [email or web address] Cardiothoracic Surgery 06/28/22 06/16/24 Dilan Rowland MD [address] [place] [address], [address] [place] [address] Insurance Assigned Provider 07/15/22 08/13/22 Corby Prado MD [address] [place] [address], [address] [place] [address] [email or web address] Insurance Assigned Provider 08/13/22 09/16/22 Neisha Pinto RN [address] [place] [address], [address] [place] [address] [email or web address] 02/26/23 06/10/25 Shreyas Wilson MD [address] [place] [address] Gastroenterology 06/17/24 Doretha Glynn MD [address] [place] [address] 3[address] [place] [address] Endocrinology 06/17/24 Izzy Hackett [address] [place] [address] [email or web address] PHCM Community Gleason Gear Generator 09/11/24 09/11/24 Radha Pereira, RN 10 [place] [address] [email or web address] PHCM Promotional Marketing AnalystOil Gas And Pipe Tester 06/11/25 Jv iLz [address] [place] [address] [email or web address] Steam Bone Press Tender 08/12/25 08/12/25 documented as of this encounter Additional Source Comments The information contained in this document represents components of the legal health record. It is not the complete legal health record.[facility]
--- OUTSIDE RECORDS SUMMARY | 2025-08-19 17:49 | XMS_ITS | Encounter Summary ---
Author Organization [facility] Address [address] [place] [address] [place] [address] Phone Care Team Providers Care Bundle Helper Name Role Phone Lester Hicks MD Unavailable [phone] Margaux Montanez MD Unavailable Johann Hanson CNP Primary Care Provider [phone] Khang Kilgore MD Unavailable Luis Ignacio DO Unavailable Flo Esteban MD Unavailable [phone] Neisha Pinto RN Unavailable [email or web address] Shreyas Wilson MD Unavailable [phone] Doretha Glynn MD Unavailable [phone] Izzy Hackett Unavailable [email or web address] Radha Pereira RN Unavailable Jv Liz Unavailable Encounter Details Date Type Department Care Team (Late st Contact Info) Description 11/17/2022 Procedure Pass [facility] [address] [facility] [place] [phone] Social History Tobacco Use Types Packs/Day Years [...] high school, GED, job training, learning the Pan[place]ian language, technical skills, or developing parenting skills)? [...] 11/17/2022 7:00 PM David Mccormick RN * [place] Suicide Severity Rating Scale (Screener/Recent Self-Report) Question Answer Date of Assessment Author 1. Wish to be (Past 1 Month) No 11/17/2022 7:00 PM David Mccormick RN 2. Non-Specific Active Suicidal Thoughts (Past 1 Month) No 11/17/2022 7:00 PM David Mccormick RN 6. Suicidal Behavior (Lifetime) No 11/17/2022 7:00 PM EST David Nielson RN documented as of this encounter Plan of Treatment Upcoming Encounters Date Type Department Care Team (Late st Contact Info) Description 08/24/2025 1:30 PM EST Office Visit [address] [place] [address] Johann Hanson, BUSINESS RULES ANALYST 22 [facility], [address] [place] [address] [email or web address] 09/10/2025 9:00 AM EST Office [facility] Gastroenterology Clinic 10 [place] [address] Unknown, Unknown, Shreyas Limon MD [address] [place] [address] 09/21/2025 2:30 PM EST Office Visit [facility], Allergy and Critical Care Medicine 10 [place] [address] Lester Hicks MD [address] [place] [address] 10/07/2025 7:15 AM EST Appointment [facility] 30 [place], [place] [phone] Lester Hicks MD [address] [place] [address] 10/13/2025 9:20 AM EST Office Visit [facility] [address] [place] [address] Doretha Glynn MD [address] [place] [address] [email or web address] 12/22/2025 8:30 AM EDT Office Visit [facility] [address] [place] [address] Johann Hanson CNP 22 [facility], [address] [place] [address] [email or web address] 06/30/2026 8:00 AM EDT Office Visit [facility] [address] [place] [address] Johann Hanson CNP 22 [facility], [address] [place] [address] [email or web address] documented as of this encounter Visit Diagnoses Not on filedocumented in this encounter Additional Health Concerns Infection Onset Date Last Indicated Resolved Time COVID-19 10/07/2023 10/07/2023 10/28/2023 1:21 AM EST Assessment Noted Time PHQ-2 Depression Total Score: 0 05/15/20 1:45 PM EDT documented as of this encounter Care Teams Bundle Helper Relationship Specialty Start Date End Date Johann Hanson CNP [address] [place] [address], [address] [place] [address] PCP - General Family Medicine 02/11/21 Lester Hicks MD [address] [place] [address] Historical LMR Provider 07/28/17 Margaux Montanez MD [address] [place] [address], [address] [place] [address] [email or web address] Historical LMR Provider 07/28/17 Khang Kilgore MD [address] [place] [address], [address] [place] [address] [email or web address] Insurance Assigned Provider 01/12/24 Luis Ignacio DO [address] [place] [address], [address] [place] [address] Cardiology 06/28/22 06/16/24 Flo Esteban MD [address] [place] [address] [email or web address] Cardiothoracic Surgery 06/28/22 06/16/24 Neisha Pinto RN [address] [place] [address] [email or web address] PHCM Territory Sales Professional 02/26/23 06/10/25 Shreyas Wilson MD [address] [place] [address] Gastroenterology 06/17/24 Doretha Glynn MD [address] [place] [address] 3rd [place] [address] Endocrinology 06/17/24 Izzy Hackett [address] [place] [address] [email or web address] PHCM Community Home Health Nurse 09/11/24 09/11/24 Radha Pereira RN [address] [place] [address] PHCM Territory Sales ProfessionalQa Lead 06/11/25 Jv Liz [address] [place] [address] Semi Truck Driver 08/12/25 08/12/25 documented as of this encounter Additional Source Comments The information contained in this document represents components of the legal health record. It is not the complete legal health record.[facility]
--- OUTSIDE RECORDS SUMMARY | 2025-08-19 17:50 | XMS_ITS | Encounter Summary ---
Author Organization [facility] Address [address] [place] [address] [place] [address] Phone Care Team Providers Care Electric Arc Welder Name Role Phone Tricia Balderas DO Unavailable Lester Hicks MD Unavailable [phone] Margaux Montanez MD Unavailable Demario Floyd MD Unavailable Pam Benson MD Unavailable [phone] Adithya Campos MENTAL HEALTH DIRECTOR Unavailable Beatriz Donaldson VENEER JOINER Unavailable Beatriz Donaldson VENEER JOINER Primary Care Provider Mamta Whitney DO Primary Care Provider [phone] Mamta Whitney DO Primary Care Provider [phone] Johann Hanson MENTAL HEALTH DIRECTOR Primary Care Provider [phone] Khang Kilgore MD Unavailable Luis Ignacio DO Unavailable Flo Esteban MD Unavailable [phone] Dilan Rowland MD Unavailable [phone] Corby Prado MD Unavailable [phone] Neisha Pinto RN Unavailable [email or web address] Shreyas Wilson MD Unavailable Doretha Glynn MD Unavailable [phone] Izzy Hackett Unavailable [email or web address] Radha Pereira RN Unavailable Jv Liz Unavailable Encounter Details Date Type Department Care Team (Late Contact Info) Description 05/29/2019 Telephone [facility] Pulmonary, Allergy and Critical Care Medicine [address] [place] [address] Aishwarya Vasquez MD [address] [place] [address] [phone] [email or web address] Social History Tobacco Use Types Packs/Day Years [...] Upcoming Encounters Date Type Department Care Team ([facility] Contact Info) Description 08/24/2025 1:30 PM EST Office Visit [address] [address] Johann Hanson, MENTAL HEALTH DIRECTOR 22 [facility], [address] [place] [address] [email or web address] 09/10/2025 9:00 AM EST Office Visit [facility] Gastroenterology Clinic [address] [place] [address] [phone] Unknown, Unknown, Shreyas Limon MD [address] [place] [address] 09/21/2025 2:30 PM EST Office Visit [facility] Pulmonary, Allergy and Critical Care Medicine 10 [facility] [address] Lester Hicks MD [address] [place] [address] 10/07/2025 7:15 AM EST Appointment [facility] 30 [place] [address] Lester Hicks MD [address] [place] [address] 10/13/2025 9:20 AM EST Office Visit [facility] [address] [place] [address] Doretha Glynn MD [address] [place] [address] [email or web address] 12/22/2025 8:30 AM EDT Office Visit [address] [place] [address] Johann Hanson CNP [address] [place] [address], [address] [address] [email or web address] 06/30/2026 8:00 AM EDT Office Visit [address] [place] [address] Johann Hanson MENTAL HEALTH DIRECTOR [address] [place] [address], [address] [address] [email or web address] documented as of this encounter Visit Diagnoses Not on filedocumented in this encounter Additional Health Concerns Infection Onset Date Last Indicated Resolved Time CoV-Presumed 05/27/2022 05/27/2022 06/17/2022 1:21 AM EDT CoV-Presumed Comment:COVID-19 Added 10/12/2022 10/12/2022 10/13/2022 6:26 P M EST COVID-19 10/13/2022 10/13/2022 11/03/2022 1:21 AM EST COVID-19 10/07/2023 10/07/2023 10/28/2023 1:21 AM EST documented as of this encounter Care Teams Electric Arc Welder Relationship Specialty Start Date End Date Beatriz Donaldson NP [address] [place] [address] PCP - General Family Medicine 10/04/17 04/11/20 Mamta Whitney DO [address] [place] [address] [email or web address] PCP - General Family Medicine 04/12/20 02/08/21 Mamta Whitney DO [address] [place] [address] [email or web address] PCP - General Family Medicine 02/10/21 02/10/21 Johann Hanson CNP 22 [facility] [place] [address] [email or web address] PCP - General Family Medicine 02/11/21 Tricia Balderas DO [address] [place] [address] [email or web address] Historical LMR Provider 07/28/17 10/15/21 Lester Hicks MD [address] [place] [address] [email or web address] Historical LMR Provider 07/28/17 Margaux Montanez MD [address] [place] [address], [address] [place] [address] [email or web address] Historical LMR Provider 07/28/17 Demario Floyd MD [address] [place] [address] [email or web address] Historical LMR Provider 07/28/17 10/15/21 Pam Benson MD [address] [place] [address] [email or web address] Historical LMR Provider 07/28/17 10/15/21 Adithya Campos, MENTAL HEALTH DIRECTOR [address] [place] [address] [email or web address] Historical LMR Provider 07/28/17 12/25/21 Beatriz Donaldson, VENEER JOINER [address] [place] [address] Historical LMR Provider 07/28/17 04/11/20 Khang Kilgore MD [address] [place] [address] [address] [place] [address] [email or web address] Insurance Assigned Provider 01/12/24 Luis Ignacio DO [address] [place] [address], [address] [place] [address] Cardiology 06/28/22 06/16/24 Flo Esteban MD [address] [place] [address] [place] [address] [email or web address] Cardiothoracic Surgery 06/28/22 06/16/24 Dilan Rowland MD [address] [place] [address], [address] [place] [address] [email or web address] Insurance Assigned Provider 07/15/22 08/13/22 Corby Prado MD [address] [place] [address], [address] [place] [address] Insurance Assigned Provider 08/13/22 09/16/22 Neisha Pinto RN [address] [place] [address], [address] [place] [address] [email or web address] Electronic Funds Transfer Coordinator 02/26/23 06/10/25 Shreyas Wilson MD [address] [place] [address] Gastroenterology 06/17/24 Doretha Glynn MD [address] [place] [address] 3rd [place] [address] [email or web address] Endocrinology 06/17/24 Izzy Hackett [address] [place] [address] [email or web address] PHC Community Arts Manager 09/11/24 09/11/24 Radha Pereira RN [address] [place] [address] PHCM Electronic Funds Transfer CoordinatorRetail Loss Prevention Investigator 06/11/25 Jv Liz [address] [place] [address] Welder Apprentice Arc 08/12/25 08/12/25 documented as of this encounter Additional Source Comments The information contained in this document represents components of the legal health record. It is not the complete legal health record.[facility]
--- OUTSIDE RECORDS SUMMARY | 2025-08-19 17:50 | XMS_ITS | Encounter Summary ---
Author Organization [facility] Address [address] [place] [address] [place] [address] Phone Care Team Providers Care Web Development Consultant Name Role Phone Lester Hicks MD Unavailable [phone] Margaux Montanez MD Unavailable [phone] Johann Hanson CNP Primary Care Provider [phone] Khang Kilgore MD Unavailable Luis Ignacio DO Unavailable Flo Esteban MD Unavailable [phone] Neisha Pinto RN Unavailable [email or web address] Shreyas Wilson MD Unavailable Doretha Glynn MD Unavailable [phone] Izzy Hackett Unavailable [email or web address] Radha Pereira RN Unavailable [phone] Jv Liz Unavailable Encounter Details Date Type Department Care Team (Late st Contact Info) Description 10/12/2022 Procedure Pass [facility] PERIOPERATIVE DEPT [address] [place] [id number] Social History Tobacco Use Types Packs/Day Years [...] high school, GED, job training, learning the Argentine language, technical skills, or developing parenting skills)? [...] EST Office Visit [facility] [place] [facility] [address] [place] [address] Johann Hanson, TIFFANIE 22 [facility], [address] [place] [address] [email or web address] 09/10/2025 9:00 AM EST Office Visit [facility] 10 [place] [address] Unknown, [place], Shreyas Limon MD [address] [place] [address] 09/21/2025 2:30 PM EST Office Visit [facility] [address] [place] [address] Lester Hicks MD [address] [place] [address] 10/07/2025 7:15 AM EST Appointment [facility] [address] [place] [address] Lester Hicks MD [address] [place] [address] 10/13/2025 9:20 AM EST Office Visit [facility] [address] [place] [address] [place] [address] Doretha Glynn MD [address] [place] [address] [email or web address] 12/22/2025 8:30 AM EDT Office Visit [address] [place] [address] Johann Hanson, BOTTLER HELPER [address] [place] [address], [address] [place] [address] [email or web address] 06/30/2026 8:00 AM EDT Office Visit [address] [place] [address] Johann Hanson, BOTTLER HELPER [address] [place] [address], [address] [place] [address] [email or web address] documented as of this encounter [...] documented as of this encounter Care Teams Web Development Consultant Relationship Specialty Start Date End Date Johann Hanson CNP [address] [place] [address], [address] [place] [address] PCP - General Family Medicine 02/11/21 Lester Hicks MD [address] [place] [address] Historical LMR Provider 07/28/17 Margaux Montanez MD [address] [place] [address], [address] [place] [address] [email or web address] Historical LMR Provider 07/28/17 Khang Kilgore MD [address] [place] [address], [address] [place] [address] Insurance Assigned Provider 01/12/24 Luis Ignacio DO [address] [place] [address], [address] [place] [address] Cardiology 06/28/22 06/16/24 Flo Esteban MD [address] [place] [address] [email or web address] Cardiothoracic Surgery 06/28/22 06/16/24 Neisha Pinto RN [address] [place] [address] [email or web address] Framing Carpenter 02/26/23 06/10/25 Shreyas Wilson MD [address] [place] [address] Gastroenterology 06/17/24 Doretha Glynn MD [address] [place] [address] Endocrinology 06/17/24 Izzy Hackett [address] [place] [address] [email or web address] [facility] Community Platemaker 09/11/24 09/11/24 Radha Pereira RN [address] [place] [address] PHC Framing CarpenterHoop Rolls Operator 06/11/25 Jv Liz [address] [place] [address] Line Manager 08/12/25 08/12/25 documented as of this encounter Additional Source Comments The information contained in this document represents components of the legal health record. It is not the complete legal health record.[facility]
--- OUTSIDE RECORDS SUMMARY | 2025-08-19 17:50 | XMS_ITS | Encounter Summary ---
Author Organization [facility] Address [address] [facility] [address] [place] [address] Phone Care Team Providers Care Elevator Repairer Apprentice Name Role Phone Lester Hicks MD Unavailable [phone] Margaux Montanez MD Unavailable Johann Hanson ELEVATOR REPAIRER APPRENTICE Primary Care Provider [phone] Khang Kilgore MD Unavailable Shreyas Wilson MD Unavailable [phone] Doretha Glynn MD Unavailable [phone] Radha Pereira RN Unavailable [phone] Jv Liz Unavailable Reason for Visit * Reason Onset Date Comments Lab sample 07/03/2025 Encounter Details Date Type Department Care Team (Late st Contact Info) Description 07/03/2025 Telephone [facility] [address] [place] [address] Johann Hanson, TIFFANIE 22 [facility], [address] [place] [address] [email or web address] Lab sample Social History [...] EDT I put a note in for manager front office not to charge a copay. * Dolores Sawyer RN - 07/03/2025 2:16 [...] when this should be done. Central Support Telephone Order Clerk (Please do not reply to this user; this inbox is not monitored.) Thank you. documented in this encounter Plan of Treatment Upcoming Encounters Date Type Department Care Team (Late st Contact Info) Description 08/24/2025 1:30 PM EST Office Visit [address] [place] [address] Johann Hanson, TIFFANIE [address] [place] [address], [address] [place] [address] [email or web address] 09/10/2025 9:00 AM EST Office Visit [facility] 10 [place] [address] Unknown, Unknown, Shreyas Limon MD [address] [place] [address] 09/21/2025 2:30 PM EST Office Visit [facility] 10 [place] [address] Lester Hicks MD [address] [place] [address] 10/07/2025 7:15 AM EST Appointment [facility] [address] [place] [address] Lester Hicks MD [address] [place] [address] 10/13/2025 9:20 AM EST Office Visit [facility] [address] [place] [address] [place] [address] Doretha Glynn MD [address] [place] [address] [email or web address] 12/22/2025 8:30 AM EDT Office Visit [address] [place] [address] Johann Hanson, TIFFANIE [address] [place] [address], [address] [place] [address] [email or web address] 06/30/2026 8:00 AM EDT Office Visit [facility] [address] [place] [address] Johann Hanson CNP 22 [facility], [address] [place] [address] [email or web address] documented as of this encounter Visit Diagnoses Not on filedocumented in this encounter Additional Health Concerns Assessment Noted Time PHQ-9 Depression Total Score: 4 10/29/19 24 1:54 PM EST PHQ-2 Depression Total Score: 0 06/23/20 25 12:32 PM EDT documented as of this encounter Care Teams Elevator Repairer Apprentice Relationship Specialty Start Date End Date Johann Hanson CNP 22 [facility], [address] [place] [address] PCP - General Family Medicine 02/11/21 Lester Hicks MD [address] [place] [address] Historical LMR Provider 07/28/17 Margaux Montanez MD [address] [place] [address], [address] [place] [address] Historical LMR Provider 07/28/17 Khang Kilgore MD [address] [place] [address], [address] [place] [address] Insurance Assigned Provider 01/12/24 Shreyas Wilson MD [address] [place] [address] Gastroenterology 06/17/24 Doretha Glynn MD [address] [place] [address] Endocrinology 06/17/24 Radha Pereira RN [address] [place] [address] PHCM Automobiles SalespersonClinical Appeals Rn 06/11/25 Jv Liz [address] [place] [address] [email or web address] Toggler 08/12/25 08/12/25 documented as of this encounter Additional Source Comments The information contained in this document represents components of the legal health record. It is not the complete legal health record.[facility]
--- OUTSIDE RECORDS SUMMARY | 2025-08-19 17:50 | XMS_ITS | Encounter Summary ---
Author Organization [facility] Address [address] [place] [address] [place] [address] Phone Care Team Providers Care Mechanical Intern Name Role Phone Tricia Balderas DO Unavailable Lester Hicks MD Unavailable [phone] Margaux Montanez MD Unavailable Demario Floyd MD Unavailable Pam Benson MD Unavailable [phone] Adithya Campos OPERATIONS FORESTER Unavailable Beatriz Donaldson PRODUCT SAFETY ADMINISTRATOR Unavailable Beatriz Donaldson PRODUCT SAFETY ADMINISTRATOR Primary Care Provider Mamta Whitney DO Primary Care Provider [phone] Mamta Whitney DO Primary Care Provider [phone] Johann Hanson OPERATIONS FORESTER Primary Care Provider [phone] Khang Kilgore MD Unavailable Luis Ignacio DO Unavailable Flo Etseban MD Unavailable [phone] Dilan Rowland MD Unavailable [phone] Corby Prado MD Unavailable Neisha Pinto RN Unavailable [email or web address] Shreyas Wilson MD Unavailable Doretha Glynn MD Unavailable [phone] Izzy Hackett Unavailable sami Radha Pereira RN Unavailable Jv Liz Unavailable Encounter Details Date Type Department Care Team (Late st Contact Info) Description 01/10/2019 Procedure Pass [facility] 30 [place] [address] Social History Tobacco Use Types Packs/Day Years [...] 08/24/2025 1:30 PM EST Office Visit [address] [address] Johann Hanson, OPERATIONS FORESTER [address] [place] [address], [address] [place] [address] [email or web address] 09/10/2025 9:00 AM EST Office Visit [facility] 10 [place], [place] [phone] Unknown, Unknown, Shreyas Limon MD [address] [place] [phone] 09/21/2025 2:30 PM EST Office Visit [facility] 10 [place] [address] Lester Hicks MD [address] [place] [address] 10/07/2025 7:15 AM EST Appointment [facility] 30 [place] [address] Lester Hicks MD [address] [place] [address] 10/13/2025 9:20 AM EST Office Visit [facility] [address] [place] [address] Doretha Glynn MD [address] [place] [address] [email or web address] 12/22/2025 8:30 AM EDT Office Visit [address] [place] [address] Johann Hanson, OPERATIONS FORESTER [address] [place] [address], [address] [place] [address] [email or web address] 06/30/2026 8:00 AM EDT Office Visit [address] [place] [address] Johann Hanson, OPERATIONS FORESTER [address] [place] [address], [address] [place] [address] [email or web address] documented as of this encounter Visit Diagnoses Not on filedocumented in this encounter Additional Health Concerns Infection Onset Date Last Indicated Resolved Time CoV-Presumed 05/27/2022 05/27/2022 06/17/2022 1:21 AM EDT CoV-Presumed Comment:COVID-19 Added 10/12/2022 10/12/2022 10/13/2022 6:26 P M EST COVID-19 10/13/2022 10/13/2022 11/03/2022 1:21 AM EST COVID-19 10/07/2023 10/07/2023 10/28/2023 1:21 AM EST documented as of this encounter Care Teams Mechanical Intern Relationship Specialty Start Date End Date Beatriz Donaldson, EARL [address] [place] [address] PCP - General Family Medicine 10/04/17 04/11/20 Mamta Whitney DO [address] [place] [address] [email or web address] PCP - General Family Medicine 04/12/20 02/08/21 Mamta Whitney DO [address] [place] [address] [email or web address] PCP - General Family Medicine 02/10/21 02/10/21 Johann Hanson CNP [address] [facility] [address] [place] [address] [email or web address] PCP - General Family Medicine 02/11/21 Tricia Balderas DO [address] [place] [address] [email or web address] Historical LMR Provider 07/28/17 10/15/21 Lester Hicks MD [address] [place] [address] [email or web address] Historical LMR Provider 07/28/17 KlMargaux Parish MD [address] [place] [address], [address] [place] [address] [email or web address] Historical LMR Provider 07/28/17 Demario Floyd MD [address] [place] [address] [email or web address] Historical LMR Provider 07/28/17 10/15/21 Pam Benson MD [address] [place] [address] [email or web address] Historical LMR Provider 07/28/17 10/15/21 Adithya Campos CNP [address] [place] [address] [email or web address] Historical LMR Provider 07/28/17 12/25/21 Beatriz Donaldson NP [address] [place] [address] Historical LMR Provider 07/28/17 04/11/20 Khang Kilgore MD [address] [place] [address], [address] [place] [address] [email or web address] Insurance Assigned Provider 01/12/24 Luis Ignacio DO [address] [place] [address], [address] [place] [address] Cardiology 06/28/22 06/16/24 Flo Esteban MD [address] [place], [place] [address] [place] [address] [email or web address] [email or web address] Surgery 06/28/22 06/16/24 Dilan Rowland MD [address] [place] [address], [address] [place] [address] [email or web address] Insurance Assigned Provider 07/15/22 08/13/22 Corby Prado MD [address] [place] [address], [address] [place] [address] [email or web address] Insurance Assigned Provider 08/13/22 09/16/22 Neisha Pinto RN [address] [place] [address], [address] [place] [address] [email or web address] Groundskeeper 02/26/23 06/10/25 Shreyas Wilson MD [address] [place] [address] [email or web address] Gastroenterology 06/17/24 Doretha Glynn MD [address] [place] [address] 3rd [place] [address] Endocrinology 06/17/24 Izzy Hackett [address] [place] [address] [email or web address] PHC Community Cigar Brander 09/11/24 09/11/24 Radha Pereira, RN [address] [place] [address] [email or web address] PHCM GroundskeeperFamily Physician 06/11/25 Jv Liz [address] [place] [address] (work) [email or web address] Library Services Assistant 08/12/25 08/12/25 documented as of this encounter Additional Source Comments The information contained in this document represents components of the legal health record. It is not the complete legal health record.[facility]
--- OUTSIDE RECORDS SUMMARY | 2025-08-19 17:50 | XMS_ITS | Encounter Summary ---
Author Organization [facility] Address [address] [facility] [address] [place] [address] Phone Care Team Providers Care Polygraph Technician Name Role Phone Lester Hicks MD Unavailable [phone] Margaux Montanez MD Unavailable [phone] Johann Hanson CNP Primary Care Provider [phone] Khang Kilgore MD Unavailable Neisha Pinto RN Unavailable [email or web address] Shreyas Wilson MD Unavailable Doretha Glynn MD Unavailable [phone] Radha Pereira RN Unavailable [phone] Jv Liz Unavailable Reason for Visit * Reason Comments Medication Refill Encounter Details Date Type Department Care Team (Late st Contact Info) Description 06/05/2025 Refill [facility] Rheumatology 22 [place], [place] [phone] Margaux Montanez MD [address] [facility], [address] [place] [address] [email or web address] Medication Refill Social History [...] high school, GED, job training, learning the Micronesian language, technical skills, or developing parenting skills)? [...] Description 08/24/2025 1:30 PM EST Office Visit [facility] [address] [address] Johann Hanson, TIFFANIE [address] [facility], [address] [place] [address] [email or web address] 09/10/2025 9:00 AM EST Office Visit [facility] Gastroenterology Clinic 10 [place] [address] Unknown, [place], Shreyas Limon MD [address] [place] [address] 09/21/2025 2:30 PM EST Office Visit [facility] All[facility] Critical [facility] 10 [facility] [place] [address] Lester Hicks MD [address] [place] [address] 10/07/2025 7:15 AM EST Appointment [facility] 30 [place] [address] Lester Hicks MD [address] [place] [address] 10/13/2025 9:20 AM EST Office Visit [facility] 22 [place] [address] Doretha Glynn MD [address] [place] [address] [email or web address] 12/22/2025 8:30 AM EDT Office Visit [address] [address] Johann Hanson CNP [address] [place] [address], [address] [place] [address] [email or web address] 06/30/2026 8:00 AM EDT Office Visit [address] [address] Johann Hanson CNP [address] [place] [address], [address] [place] [address] [email or web address] documented as of this encounter Visit Diagnoses Diagnosis Inflammatory arthritis Unspecified inflammatory polyarthropathy documented in this encounter Additional Health Concerns Assessment Noted Time PHQ-9 Depression Total Score: 4 10/29/19 1:54 PM EST PHQ-2 Depression Total Score: 0 06/10/20 9:22 AM EDT documented as of this encounter Care Teams Polygraph Technician Relationship Specialty Start Date End Date Johann Hanson CNP [address] [place] [address], [address] [place] [address] PCP - General Family Medicine 02/11/21 Lester Hicks MD [address] [place] [address] [email or web address] Historical LMR Provider 07/28/17 Margaux Montanez MD [address] [place] [address], [address] [place] [address] [email or web address] Historical LMR Provider 07/28/17 Khang Kilgore MD [address] [place] [address], [address] [place] [address] [email or web address] Insurance Assigned Provider 01/12/24 Neisha Pinto RN [address] [place] [address], [address] [place] [address] [email or web address] Res Habilitation Assistant 02/26/23 06/10/25 Shreyas Wilson MD [address] [place] [address] [email or web address] Gastroenterology 06/17/24 Doretha Glynn MD [address] [place] [address] [email or web address] Endocrinology 06/17/24 Radha Pereira RN [address] [place] [address] [email or web address] PHCM Res Habilitation AssistantCollector 06/11/25 Jv Liz [address] [place] [address] [email or web address] Concrete Paver 08/12/25 08/12/25 documented as of this encounter Additional Source Comments The information contained in this document represents components of the legal health record. It is not the complete legal health record.[facility]
--- OUTSIDE RECORDS SUMMARY | 2025-08-19 17:50 | XMS_ITS | Encounter Summary ---
Author Organization [facility] Address [address] [facility] [address] [place] [address] Phone Care Team Providers Care Die Press Operator Name Role Phone Lester Hicks MD Unavailable [phone] Margaux Montanez MD Unavailable Johann Hanson IN SERVICE COORDINATOR Primary Care Provider [phone] Khang Kilgore MD Unavailable Shreyas Wilson MD Unavailable Doretha Glynn MD Unavailable [phone] Radha Pereira RN Unavailable [phone] Jv Liz Unavailable Encounter Details Date Type Department Care Team (Late st Contact Info) Description 07/23/2025 Orders Only [facility] Medicine [address] [place] [address] Johann Hanson, IN SERVICE COORDINATOR [address] [facility], [address] [place], [place] [phone] [email or web address] Essential hypertension; Encounter for medication [...] 08/24/2025 1:30 PM EST Office Visit [address] [place] [address] Johann Hanson, IN SERVICE COORDINATOR [address] [facility], [address] [place] [address] [email or web address] 09/10/2025 9:00 AM EST Office Visit [facility] Gastroenterology Clinic [address] [place] [address] Unknown, Unknown, Shreyas Limon MD [address] [place] [address] 09/21/2025 2:30 PM EST Office Visit [facility] 10 [place] [address] Lester Hicks MD [address] [place] [address] 10/07/2025 7:15 AM EST Appointment [facility] 30 [place] [address] Lester Hicks MD [address] [place] [address] 10/13/2025 9:20 AM EST Office Visit [facility] [address] [place] [address] Doretha Glynn MD [address] [place] [address] [email or web address] 12/22/2025 8:30 AM EDT Office Visit [address] [place] [address] Johann Hanson CNP [address] [place] [address], [address] [place] [address] [email or web address] 06/30/2026 8:00 AM EDT Office Visit [address] [place] [address] Johann Hanson CNP [address] [place] [address], [address] [place] [address] [email or web address] documented as of this encounter Visit Diagnoses Diagnosis Essential hypertension Unspecified essential hypertension Encounter for medication monitoring Encounter for therapeutic drug monitoring documented in this encounter Additional Health Concerns Assessment Noted Time PHQ-9 Depression Total Score: 4 10/29/19 24 1:54 PM EST PHQ-2 Depression Total Score: 0 06/23/20 25 12:32 PM EDT documented as of this encounter Care Teams Die Press Operator Relationship Specialty Start Date End Date Johann Hanson CNP [address] [place] [address], [address] [place] [address] PCP - General Family Medicine 02/11/21 Lester Hicks MD [address] [place] [address] Historical LMR Provider 07/28/17 Margaux Montanez MD [address] [place] [address], [address] [place] [address] [email or web address] Historical LMR Provider 07/28/17 Khang Kilgore MD [address] [facility], [address] [place] [address] Insurance Assigned Provider 01/12/24 Shreyas Wilson MD [address] [place] [address] Gastroenterology 06/17/24 Doretha Glynn MD [address] [place] [address] 3rd [place] [address] Endocrinology 06/17/24 Radha Pereira, RN 10 [place] [address] [email or web address] PHCM Commercial Loan Collection OfficerDoor Paneler 06/11/25 Jv Liz [address] [place] [address] Auto Service Instructor 08/12/25 08/12/25 documented as of this encounter Additional Source Comments The information contained in this document represents components of the legal health record. It is not the complete legal health record.[facility]
--- OUTSIDE RECORDS SUMMARY | 2025-08-19 17:50 | XMS_ITS | Encounter Summary ---
Author Organization [facility] Address [address] [place] [address] Phone Care Team Providers Care Supervisor Grower Name Role Phone Lester Hicks MD Unavailable [phone] Margaux Montanez MD Unavailable Johann Hanson CNP Primary Care Provider [phone] Khang Kilgore MD Unavailable Neisha Pinto RN Unavailable [email or web address] Shreyas Wilson MD Unavailable Doretha Glynn MD Unavailable [phone] Izzy Hackett Unavailable [email or web address] Radha Pereira RN Unavailable Jv Liz Unavailable Encounter Details Date Type Department Care Team (Late st Contact Info) Description 06/17/2024 Procedure Pass [address] [address] Social History Tobacco Use Types Packs/Day Years [...] high school, GED, job training, learning the Djib[place]ian language, technical skills, or developing parenting skills)? [...] Description 08/24/2025 1:30 PM EST Office Visit [facility] [address] [place] [address] Johann Hanson, TOOLROOM ATTENDANT 22 [facility], [address] [place] [address] [email or web address] 09/10/2025 9:00 AM EST Office Visit [facility] 10 [place] [address] Unknown, Unknown, Shreyas Limon MD [address] [place] [address] 09/21/2025 2:30 PM EST Office Visit [facility] 10 [place] [address] Lester Hicks MD [address] [place] [address] 10/07/2025 7:15 AM EST Appointment [facility] 30 [place] [address] Lester Hicks MD [address] [place] [address] 10/13/2025 9:20 AM EST Office Visit [facility] [address] [place] [address] Doretha Glynn MD [address] [place] [address] [email or web address] 12/22/2025 8:30 AM EDT Office Visit [address] [place] [address] Johann Hanson CNP [address] [place] [address], [address] [place] [address] [email or web address] 06/30/2026 8:00 AM EDT Office Visit [address] [place] [address] Johann Hanson CNP [address] [place] [address], [address] [place] [address] [email or web address] documented as of this encounter Visit Diagnoses Not on filedocumented in this encounter Additional Health Concerns Assessment Noted Time PHQ-9 Depression Total Score: 4 10/29/19 24 1:54 PM EST PHQ-2 Depression Total Score: 0 06/23/20 25 12:32 PM EDT documented as of this encounter Care Teams Supervisor Grower Relationship Specialty Start Date End Date Johann Hanson CNP [address] [place] [address], [address] [place] [address] PCP - General Family Medicine 02/11/21 Lester Hicks MD [address] [place] [address] Historical LMR Provider 07/28/17 Margaux Montanez MD [address] [place] [address], [address] [place] [address] Historical LMR Provider 07/28/17 Khang Kilgore MD [address] [place] [address], [address] [place] [address] Insurance Assigned Provider 01/12/24 Neisha Pinto RN 22 [facility], [address] [place] [address] [email or web address] Driver Medic 02/26/23 06/10/25 Shreyas Wilson MD [address] [place] [address] Gastroenterology 06/17/24 Doretha Glynn MD [address] [place] [address] Endocrinology 06/17/24 Izzy Hackett [address] [place] [address] [email or web address] [facility] Community Olericulture Professor 09/11/24 09/11/24 Radha Pereira RN [address] [place] [address] PHC Driver MedicSenior Windows Systems Engineer 06/11/25 Jv Liz [address] [place] [address] Cap And Stud Machine Operator 08/12/25 08/12/25 documented as of this encounter Additional Source Comments The information contained in this document represents components of the legal health record. It is not the complete legal health record.[facility]
--- OUTSIDE RECORDS SUMMARY | 2025-08-19 17:50 | XMS_ITS ---
Author Organization [facility] Address [address] [place] [address] [place] [address] Phone Care Team Providers Care Clinical Admissions Manager Name Role Phone Lester Hicks MD Unavailable [phone] Margaux Montanez MD Unavailable Johann Hanson CNP Primary Care Provider [phone] Khang Kilgore MD Unavailable Shreyas Wilson MD Unavailable Doretha Glynn MD Unavailable [phone] Radha Pereira RN Unavailable [phone] Population Health Care Management (PHCM) Status:Enrolled (Active) Start date:10/23/2023 Enrollment date:10/23/2023 Current support & services provided:[facility] Related social drivers of health:Housing Stability, Child or Family Care, Education, Food, Unemployment, Paying for Meds, Paying Utility Bills, Transportation, Digital Access, SNAP/WIC Case Team Name Relationship Phone Email Radha Pereira RN(Responsible Staff) Registered Nurse [phone] Izzy Herbert PHCM Refrigeration Plant Cork Insulator [email or web address] Continued Care and Services Coordination
--- OUTSIDE RECORDS SUMMARY | 2025-08-19 17:50 | XMS_ITS | Encounter Summary ---
Author Organization [facility] Address [address] [facility] [address] [place] [address] Phone Care Team Providers Care Evs Manager Name Role Phone Lester Hicks MD Unavailable [phone] Margaux Montanez MD Unavailable [phone] Johann Hanson GENERAL MANAGER FOOD Primary Care Provider [phone] Khang Kilgore MD Unavailable Shreyas Wilson MD Unavailable Doretha Glynn MD Unavailable [phone] Radha Pereira RN Unavailable Jv Liz Unavailable Encounter Details Date Type Department Care Team (Late st Contact Info) Description 07/24/2025 Orders Only [facility] [address] [place] [address] Johann Hanson, GENERAL MANAGER FOOD 22 [facility], [address] [place], [place] [phone] Social History Tobacco Use Types Packs/Day Years [...] Description 08/24/2025 1:30 PM EST Office Visit [facility] [address] [place] [address] Johann Hanson, GENERAL MANAGER FOOD 22 [facility], [address] [place] [address] [email or web address] 09/10/2025 9:00 AM EST Office Visit [facility] [address] [place] [address] Unknown, Unknown, Shreyas Limon MD [address] [place] [address] 09/21/2025 2:30 PM EST Office Visit [facility] 10 [place] [address] Lester Hicks MD [address] [place] [address] 10/07/2025 7:15 AM EST Appointment [facility] 30 [place] [address] Lester Hicks MD [address] [place] [address] 10/13/2025 9:20 AM EST Office Visit [facility] [address] [place] [address] Doretha Glynn MD [address] [place] [address] [address] [place] [address] [email or web address] 12/22/2025 8:30 AM EDT Office Visit [address] [place] [address] Johann Hanson CNP [address] [place] [address], [address] [place] [address] [email or web address] 06/30/2026 8:00 AM EDT Office Visit [address] [place] [address] Johann Hanson CNP [address] [place] [address], [address] [place] [address] [email or web address] documented as of this encounter Procedures Procedure Name Priority Date/Time Associated Diagnosis Comments OUTSIDE ECHO Routine 07/22/2025 8:44 AM EDT documented in this encounter Results * Outside Echo Report Only (07/22/2025 8:44 AM EDT) Johann Hanson CNP CV ECHO ORDERABLES Final Result documented in this encounter Visit Diagnoses Not on filedocumented in this encounter Additional Health Concerns Assessment Noted Time PHQ-9 Depression Total Score: 4 10/29/19 24 1:54 PM EST PHQ-2 Depression Total Score: 0 06/23/20 25 12:32 PM EDT documented as of this encounter Care Teams Evs Manager Relationship Specialty Start Date End Date Johann Hanson CNP [address] [place] [address], [address] [place] [address] PCP - General Family Medicine 02/11/21 Lester Hicks MD [address] [place] [address] Historical LMR Provider 07/28/17 Margaux Montanez MD [address] [place] [address], [address] [place] [address] Historical LMR Provider 07/28/17 Khang Kilgore MD [address] [place] [address], [address] [place] [address] Insurance Assigned Provider 01/12/24 Shreyas Wilson MD [address] [place] [address] Gastroenterology 06/17/24 Doretha Glynn MD [address] [place] [address] Endocrinology 06/17/24 Radha Pereira, RN [address] [place] [address] PHCM PhysicianDiabetes Solutions Specialist 06/11/25 Jv Liz [address] [place] [address] Kids Activities Coach 08/12/25 08/12/25 documented as of this encounter Additional Source Comments The information contained in this document represents components of the legal health record. It is not the complete legal health record.[facility]
== END 2025-08-19 16:32 | disposition home or self-care (01) ==
LOC: HO.HOS 14:21
PROVIDERS: PCP Nurse Practitioner Adult Health; Visit Provider Physician Assistant
DX: M17.11 Unilateral primary osteoarthritis, right knee (principal)
CPT/HCPCS: 20610; 99213

== ENCOUNTER → 2025-08-19 14:22 | Outpatient (BNV) | payer OTHER, SELFPAY | PROVIDERS: Visit Provider Radiology Diagnostic Radiology | DX: M17.11 Unilateral primary osteoarthritis, right knee (principal) | CPT/HCPCS: 73562 ==

== ENCOUNTER 2025-08-19 15:16 | Outpatient (REF) | payer OTHER, SELFPAY ==
--- OUTSIDE RECORDS SUMMARY | 2021-10-10 17:00 | XMS_ITS | Encounter Summary ---
Author Organization [facility] Address [address] [place] [address] [place] [address] Phone Care Team Providers Care Uat Tester Name Role Phone Tricia Balderas Unavailable Lester Hicks MD Unavailable [phone] Margaux Montanez MD Unavailable [phone] Demario Floyd MD Unavailable Pam Benson MD Unavailable Adithya Campos LIBRARY MEDIA SPECIALIST Unavailable Johann Hanson CNP Primary Care Provider [phone] Encounter Details Date Type Department Care Team (Late st Contact Info) Description 10/10/2021 5:00 PM EST Hospital Encounter [facility] 12 [place] [address] Natacha Hernandez CNP 12 [place], [place] [phone] Social History Tobacco Use Types Packs/Day Years [...] high school, GED, job training, learning the Sammar[place] language, technical skills, or developing parenting skills)? [...] 12/07/2022 9:18 AM Alise Hamilton RN * [place] Suicide Severity Rating Scale (Screener/Recent Self-Report) Question [...] Description 08/24/2025 1:30 PM EST Office Visit [facility] [address] [place] [address] Johann Hanson, LIBRARY MEDIA SPECIALIST [address] [place] [address], [address] [place] [address] [email or web address] 09/10/2025 9:00 AM EST Office Visit [facility] 10 [place] [address] Unknown, Unknown, Shreyas Limon MD [address] [place] [address] 09/21/2025 2:30 PM EST Office Visit [facility] Allergy [facility] Critical Care Medicine 10 [facility] [place] [address] Lester Hicks MD [address] [place] [address] 10/07/2025 7:15 AM EST Appointment [facility] 30 [place] [address] Lester Hicks MD [address] [place] [address] 10/13/2025 9:20 AM EST Office Visit [facility] [address] [place] [address] Doretha Glynn MD [address] [place] [address] [email or web address] 12/22/2025 8:30 AM EDT Office Visit [address] [place] [address] Johann Hanson, LIBRARY MEDIA SPECIALIST [address] [place] [address], [address] [place] [address] [email or web address] 06/30/2026 8:00 AM EDT Office Visit [address] [place] [address] Johann Hanson, LIBRARY MEDIA SPECIALIST [address] [place] [address], [address] [place] [address] [email or web address] documented as of this encounter [...] body heights. Increased anterolisthesis of L4 on K7yscns 2008, likely secondary to facet degenerative changes. Natacha Hernandez LIBRARY MEDIA SPECIALIST IMG XR SPINE Final Resul t documented [...] documented as of this encounter Care Teams Uat Tester Relationship Specialty Start Date End Date Johann Hanson CNP [address] [facility], [address] [place] [address] [email or web address] PCP - General Family Medicine 02/11/21 Tricia Balderas DO [address] [place] [address] [email or web address] Historical LMR Provider 07/28/17 10/15/21 Lester Hicks MD [address] [place] [address] [email or web address] Historical LMR Provider 07/28/17 Margaux Montanez MD [address] [facility], [address] [place] [address] [email or web address] Historical LMR Provider 07/28/17 Demario Floyd MD [address] [place] [address] [email or web address] Historical LMR Provider 07/28/17 2 Pam Benson MD 15 [facility], [address] [place] [address] Historical LMR Provider 07/28/17 Adithya Campos CNP [address] [place] [address], [address] [place] [address] [email or web address] Historical LMR Provider 07/28/17 12/25/21 documented as of this encounter Additional Source Comments The information contained in this document represents components of the legal health record. It is not the complete legal health record.[facility]
--- NOTE | ~2025-08-19 | XR_ITS ---
EXAMINATION: XR KNEE, RIGHT CLINICAL INFORMATION: M17.11 - Unilateral primary osteoarthritis, right knee COMPARISON: None available. TECHNIQUE: AP in standing position both knees. Lateral and sunrise views of the right knee. FINDINGS: Joint space narrowing involving mostly the medial compartment with small marginal osteophyte formation and sclerosis along the articular surface. No suprapatellar bursa joint effusion. Small osteophyte formation in the posterior patella. No lytic or blastic lesions. No gross soft tissue calcifications. No vascular calcifications. XR/XR knee RT 3V IMPRESSION: Tricompartment osteoarthrosis/osteoarthritis involving mostly the medial compartment, moderate. Electronically signed by: Nabor Bonilla MD 08/19/2025 03:05 PM RICHY
--- OUTSIDE RECORDS SUMMARY | 2025-08-20 18:27 | XMS_ITS | Clinical Summary ---
Author Organization [facility] Address [address] [place] [address] Care Team Providers Care Food And Drug Inspector Name Role Phone Unavailable Primary Care Provider [...]
--- OUTSIDE RECORDS SUMMARY | 2025-08-20 18:27 | XMS_ITS | Encounter Summary ---
Author Organization [facility] Address [address] [place] [address] Phone Care Team Providers Care Outpatient Case Manager Name Role Phone Lester Hicks MD Unavailable [phone] Margaux Montanez MD Unavailable Johann Hanson CNP Primary Care Provider [phone] Khang Kilgore MD Unavailable Luis Ignacio DO Unavailable Flo Esteban MD Unavailable [phone] Neisha Pinto RN Unavailable [email or web address] Shreyas Wilson MD Unavailable Doretha Glynn MD Unavailable [phone] Izzy Hackett Unavailable [email or web address] Radha Pereira RN Unavailable Jv Liz Unavailable Encounter Details Date Type Department Care Team (Late st Contact Info) Description 12/08/2022 Procedure Pass [facility] 30 [place], [place] [id number] Social History Tobacco Use Types Packs/Day Years [...] EST Office Visit [facility] [place] [facility] [address] [place] [address] Johann Hanson, TIFFANIE 22 [facility], [address] [place] [address] [email or web address] 09/10/2025 9:00 AM EST Office Visit [facility] Gastroenterology Clinic 10 [place] [address] Unknown, [place], Shreyas Limon MD [address] [place] [address] 09/21/2025 2:30 PM EST Office Visit [facility] [address] [place] [address] Lester Hicks MD [address] [place] [address] 10/07/2025 7:15 AM EST Appointment [facility] [address] [place] [address] Lester Hicks MD [address] [place] [address] 10/13/2025 9:20 AM EST Office Visit [facility] [address] [place] [address] [place] [address] Doretha Glynn MD [address] [place] [address] [email or web address] 12/22/2025 8:30 AM EDT Office Visit [address] [place] [address] Johann Hanson, EDUCATION SALES CONSULTANT [address] [place] [address], [address] [place] [address] [email or web address] 06/30/2026 8:00 AM EDT Office Visit [address] [place] [address] Johann Hanson, EDUCATION SALES CONSULTANT [address] [place] [address], [address] [place] [address] [email or web address] documented as of this encounter Visit Diagnoses Not on filedocumented in this encounter Additional Health Concerns Infection Onset Date Last Indicated Resolved Time COVID-19 10/07/2023 10/07/2023 10/28/2023 1:21 AM EST Assessment Noted Time PHQ-2 Depression Total Score: 0 05/15/20 1:45 PM EDT documented as of this encounter Care Teams Outpatient Case Manager Relationship Specialty Start Date End Date Johann Hanson CNP [address] [place] [address], [address] [place] [address] PCP - General Family Medicine 02/11/21 Lester Hicks MD [address] [place] [address] Historical LMR Provider 07/28/17 Margaux Montanez MD [address] [place] [address], [address] [place] [address] [email or web address] Historical LMR Provider 07/28/17 Khang Kilgore MD [address] [place] [address], [address] [place] [address] Insurance Assigned Provider 01/12/24 Luis Ignacio DO [address] [place] [address], [address] [place] [address] Cardiology 06/28/22 06/16/24 Flo Esteban MD [address] [place], [place] [address]D[address] [place] [address] [email or web address] Cardiothoracic Surgery 06/28/22 06/16/24 Neisha Pinto, RANDI [address] [place] [address] FND-7 [place] [address] [email or web address] PHCM Category Consultant 02/26/23 06/10/25 Shreyas Wilson MD [address] [place] [address] Gastroenterology 06/17/24 Doretha Glynn MD [address] [place] [address] Endocrinology 06/17/24 Izzy Hackett 10 [place] [address] [email or web address] Community Handling Tech 09/11/24 09/11/24 Radha Pereira RN [address] [place] [address] PHC Category ConsultantVeneer Sheet Repairer 06/11/25 Jv Liz [address] [place] [address] Sewage Plant Attendant 08/12/25 08/12/25 documented as of this encounter Additional Source Comments The information contained in this document represents components of the legal health record. It is not the complete legal health record.[facility]
--- OUTSIDE RECORDS SUMMARY | 2025-08-20 18:27 | XMS_ITS | Encounter Summary ---
Author Organization [facility] Address [address] [place] [address] [place] [address] Phone Care Team Providers Care Inspector Water Pollution Control Name Role Phone Lester Hicks MD Unavailable [phone] Margaux Montanez MD Unavailable [phone] Johann Hanson CNP Primary Care Provider [phone] Khang Kilgore MD Unavailable [phone] Neisha Pinto RN Unavailable [email or web address] Shreyas Wilson MD Unavailable Doretha Glynn MD Unavailable [phone] Radha Pereira RN Unavailable Jv Liz Unavailable Encounter Details Date Type Department Care Team (Late st Contact Info) Description 01/13/2025 Procedure Pass [facility] L2 PRU 75 [place] [address] Social History Tobacco Use Types Packs/Day Years [...] high school, GED, job training, learning the [place] language, technical skills, or developing parenting skills)? [...] 08/24/2025 1:30 PM EST Office Visit [facility] Medicine [address] [place] [address] [place] [address] Johann Hanson, IN SERVICE EDUCATOR 22 [facility], [address] [place] [address] [email or web address] 09/10/2025 9:00 AM EST Office Visit [facility] [address] [place] [address] Unknown, Unknown, Shreyas Limon MD [address] [place] [address] 09/21/2025 2:30 PM EST Office Visit [facility] 10 [place] [address] Lester Hicks MD [address] [place] [address] 10/07/2025 7:15 AM EST Appointment [facility] 30 [place] [address] Lester Hicks MD [address] [place] [address] [id number] 10/13/2025 9:20 AM EST Office Visit [facility] [address] [place] [address] Doretha Glynn MD [address] [place] [address] [phone] [email or web address] 12/22/2025 8:30 AM EDT Office Visit [address] [place] [address] Johann Hanson CNP [address] [place] [address], [address] [place] [address] [email or web address] 06/30/2026 8:00 AM EDT Office Visit [address] [place] [address] Johann Hanson CNP [address] [place] [address], [address] [place] [address] [email or web address] documented as of this encounter Visit Diagnoses Not on filedocumented in this encounter Additional Health Concerns Assessment Noted Time PHQ-9 Depression Total Score: 4 10/29/19 24 1:54 PM EST PHQ-2 Depression Total Score: 0 06/10/20 24 9:22 AM EDT documented as of this encounter Care Teams Inspector Water Pollution Control Relationship Specialty Start Date End Date Johann Hanson CNP [address] [place] [address], [address] [place] [address] PCP - General Family Medicine 02/11/21 Lester Hicks MD [address] [place] [address] Historical LMR Provider 07/28/17 Margaux Montanez MD [address] [place] [address], [address] [place] [address] Historical LMR Provider 07/28/17 Khang Kilgore MD 22 [facility], [address] [place] [address] Insurance Assigned Provider 01/12/24 Neisha Pinto, RANDI 22 [facility], [address] [place] [address] [email or web address] PHC Cotton Picker Operator 02/26/23 06/10/25 Shreyas Wilson MD [address] [place] [address] Gastroenterology 06/17/24 Doretha Glynn MD [address] [place] [address] [address] [place] [address] Endocrinology 06/17/24 Radha Pereira, RANDI 10 [place] [address] [email or web address] [facility] Cotton Picker OperatorCoffee Brewer 06/11/25 Jv Liz [address] [place] [address] Director Hris 08/12/25 08/12/25 documented as of this encounter Additional Source Comments The information contained in this document represents components of the legal health record. It is not the complete legal health record.[facility]
--- OUTSIDE RECORDS SUMMARY | 2025-08-20 18:27 | XMS_ITS | Encounter Summary ---
Author Organization [facility] Address [address] [place] [address] Phone Care Team Providers Care Professor Of Finance Name Role Phone Lester Hicks MD Unavailable [phone] Margaux Montanez MD Unavailable [phone] Johann Hanson CNP Primary Care Provider [phone] Khang Kilgore MD Unavailable Luis Ignacio DO Unavailable Flo Esteban MD Unavailable [phone] Neisha Pinto RN Unavailable [email or web address] Shreyas Wilson MD Unavailable Doretha Glynn MD Unavailable [phone] Izzy Hackett Unavailable [email or web address] Radha Pereira RN Unavailable Jv Liz Unavailable Encounter Details Date Type Department Care Team (Late st Contact Info) Description 12/13/2022 Procedure Pass [facility] 30 [place], [place] [id number] Social History Tobacco Use Types Packs/Day Years [...] EST Office Visit [facility] [place] [facility] [address] [place] [address] Johann Hanson, TIFFANIE 22 [facility], [address] [place] [address] [email or web address] 09/10/2025 9:00 AM EST Office Visit [facility] Gastroenterology Clinic 10 [place] [address] Unknown, [place], Shreyas Limon MD [address] [place] [address] 09/21/2025 2:30 PM EST Office Visit [facility] [address] [place] [address] Lester Hicks MD [address] [place] [address] 10/07/2025 7:15 AM EST Appointment [facility] [address] [place] [address] Lester Hicks MD [address] [place] [address] 10/13/2025 9:20 AM EST Office Visit [facility] [address] [place] [address] [place] [address] Doretha Glynn MD [address] [place] [address] [email or web address] 12/22/2025 8:30 AM EDT Office Visit [address] [place] [address] Johann Hanson, PERSONNEL PLACEMENT SPECIALIST [address] [place] [address], [address] [place] [address] [email or web address] 06/30/2026 8:00 AM EDT Office Visit [address] [place] [address] Johann Hanson, PERSONNEL PLACEMENT SPECIALIST [address] [place] [address], [address] [place] [address] [email or web address] documented as of this encounter Visit Diagnoses Not on filedocumented in this encounter Additional Health Concerns Infection Onset Date Last Indicated Resolved Time COVID-19 10/07/2023 10/07/2023 10/28/2023 1:21 AM EST Assessment Noted Time PHQ-2 Depression Total Score: 0 05/15/20 1:45 PM EDT documented as of this encounter Care Teams Professor Of Finance Relationship Specialty Start Date End Date Johann Hanson CNP [address] [place] [address], [address] [place] [address] PCP - General Family Medicine 02/11/21 Lester Hicks MD [address] [place] [address] Historical LMR Provider 07/28/17 Margaux Montanez MD [address] [place] [address], [address] [place] [address] [email or web address] Historical LMR Provider 07/28/17 Khang Kilgore MD [address] [place] [address], [address] [place] [address] Insurance Assigned Provider 01/12/24 Luis Ignacio DO [address] [place] [address], [address] [place] [address] Cardiology 06/28/22 06/16/24 Flo Esteban MD [address] [place], [place] [address]D-[address] [place] [address] [email or web address] Cardiothoracic Surgery 06/28/22 06/16/24 Neisha Pinto, RANDI [address] [place] [address] FND-7 [place] [address] [email or web address] PHCM Senior Administrative Services Officer 02/26/23 06/10/25 Shreyas Wilson MD [address] [place] [address] Gastroenterology 06/17/24 Doretha Glynn MD [address] [place] [address] Endocrinology 06/17/24 Izzy Hackett 10 [place] [address] [email or web address] PHC Community Technical Inspector 09/11/24 09/11/24 Radha Pereira RN [address] [place] [address] PHC Senior Administrative Services OfficerSki Instructor 06/11/25 Jv Liz [address] [place] [address] Home Health Care Social Worker 08/12/25 08/12/25 documented as of this encounter Additional Source Comments The information contained in this document represents components of the legal health record. It is not the complete legal health record.[facility]
--- OUTSIDE RECORDS SUMMARY | 2025-08-20 18:27 | XMS_ITS | Encounter Summary ---
Author Organization [facility] Address [address] [facility] [address] [place] [address] Phone Care Team Providers Care Deputy Assessor Name Role Phone Lester Hicks MD Unavailable [phone] Margaux Montanez MD Unavailable [phone] Johann Hanson CNP Primary Care Provider [phone] Khang Kilgore MD Unavailable Luis Ignacio DO Unavailable Flo Esteban MD Unavailable [phone] Dilan Rowland MD Unavailable [phone] Corby Prado MD Unavailable [phone] Neisha Pinto RN Unavailable [email or web address] Shreyas Wilson MD Unavailable Doertha Glynn MD Unavailable [phone] Izzy Hackett Unavailable [email or web address] Radha Pereira RN Unavailable Jv Liz Unavailable Encounter Details Date Type Department Care Team (Late st Contact Info) Description 02/28/2022 Procedure Pass [facility], Ct Scan - [facility] [address] [place] [address] Social History Tobacco Use Types Packs/Day Years [...] EST Office Visit [facility] [address] [place] [address] [place] [address] Johann [place]on, TIFFANIE [address], [address] [place] [address] [email or web address] 09/10/2025 9:00 AM EST Office Visit [facility] 10 [place] [address] Unknown, [place], Shreyas Limon MD [address] [address] 09/21/2025 2:30 PM EST Office Visit [facility] 10 [place] [address] Lester Hicks MD [address] [place] [address] 10/07/2025 7:15 AM EST Appointment [facility] 30 [place] [address] Lester Hicks MD [address] [place] [address] 10/13/2025 9:20 AM EST Office Visit [facility]in[facility] [address] [place] [address] [place] [address] Doretha Glynn MD [address] [place] [address] [email or web address] 12/22/2025 8:30 AM EDT Office Visit [address] [place] [address] Johann [place]on, TIFFANIE [address] [place] [address], [address] [place] [address] [email or web address] 06/30/2026 8:00 AM EDT Office Visit [address] [place] [address] Johann Hanson CNP [address] [facility], [address] [place] [address] [email or web address] documented as of this encounter Visit [...] documented as of this encounter Care Teams Deputy Assessor Relationship Specialty Start Date End Date Johann [place] CNP [address] [place] [address], [address] [place] [address] [email or web address] PCP - General Family Medicine 02/11/21 Lester Hicks MD [address] [place] [address] [email or web address] Historical LMR Provider 07/28/17 Margaux Montanez MD [address] [place] [address], [address] [place] [address] [email or web address] Historical LMR Provider 07/28/17 Khang Kilgore MD [address] [place] [address], [address] [place] [address] Insurance Assigned Provider 01/12/24 Luis Ignacio DO [address] [place] [address], [address] [place] [address] Cardiology 06/28/22 06/16/24 Flo Esteban MD [address] [place] [address] [email or web address] Cardiothoracic Surgery 06/28/22 06/16/24 Dilan Rowland MD [address] [place] [address], [address] [place] [address] [email or web address] Insurance Assigned Provider 07/15/22 08/13/22 Corby Prado MD [address] [place] [address], [address] [place] [address] [email or web address] Insurance Assigned Provider 08/13/22 09/16/22 Neisha Pinto, RANDI [address] [place] [address], [address] [place] [address] [email or web address] 02/26/23 06/10/25 Shreyas Wilson MD [address] [place] [address] Gastroenterology 06/17/24 Doretha Glynn MD [address] [place] [address] [address] [place] [address] Endocrinology 06/17/24 Izzy Hackett [address] [place] [address] [email or web address] PHCM Community Rejected Items Clerk 09/11/24 09/11/24 Radha Pereira, RN 10 [place] [address] [email or web address] PHCM Supervisor CoatingHistology Specialist 06/11/25 Jv Liz [address] [place] [address] [email or web address] Electronics Technician 08/12/25 08/12/25 documented as of this encounter Additional Source Comments The information contained in this document represents components of the legal health record. It is not the complete legal health record.[facility]
--- OUTSIDE RECORDS SUMMARY | 2025-08-20 18:27 | XMS_ITS | Encounter Summary ---
Author Organization [facility] Address [address] [place] [address] Phone Care Team Providers Care Cdl B Driver Name Role Phone Lester Hicks MD Unavailable [phone] Margaux Montanez MD Unavailable Johann Hanson CNP Primary Care Provider [phone] Kahng Kilgore MD Unavailable Neisha Pinto RN Unavailable [email or web address] Shreyas Wilson MD Unavailable [phone] Doretha Glynn MD Unavailable [phone] Izzy Hackett Unavailable [email or web address] Radha Pereira RN Unavailable Jv Liz Unavailable Encounter Details Date Type Department Care Team (Late st Contact Info) Description 06/20/2024 Procedure Pass [facility] Endoscopy Admitting Dept Virtual Department [address] [place] [address] Social History Tobacco Use Types Packs/Day [...] Description 08/24/2025 1:30 PM EST Office Visit [facility] [address] [place] [address] Johann [place]on, PROPERTY FIELD ADJUSTER [address] [facility], [address] [place] [address] [email or web address] 09/10/2025 9:00 AM EST Office Visit [facility] 10 [place] [address] Unknown, Unknown, Shreyas Limon MD [address] [place] [address] 09/21/2025 2:30 PM EST Office Visit [facility] 10 [place] [address] Lester Hicks MD [address] [place] [address] 10/07/2025 7:15 AM EST Appointment [facility] 30 [place] [address] Lester Hicks MD [address] [place] [address] 10/13/2025 9:20 AM EST Office Visit [facility] [address] [place] [address] Doretha Glynn MD [address] [place] [address] [email or web address] 12/22/2025 8:30 AM EDT Office Visit [address] [place] [address] Johann [place]on CNP [address] [place] [address], [address] [place] [address] [email or web address] 06/30/2026 8:00 AM EDT Office Visit [address] [place] [address] Johann Hanson, PROPERTY FIELD ADJUSTER [address] [place] [address], [address] [place] [address] [email or web address] documented as of this encounter Visit Diagnoses Not on filedocumented in this encounter Additional Health Concerns Assessment Noted Time PHQ-9 Depression Total Score: 4 10/29/19 24 1:54 PM EST PHQ-2 Depression Total Score: 0 06/10/20 24 9:22 AM EDT documented as of this encounter Care Teams Cdl B Driver Relationship Specialty Start Date End Date Johann Hanson CNP [address] [place] [address], [address] [place] [address] [email or web address] PCP - General Family Medicine 02/11/21 Lester Hicks MD [address] [place] [address] Historical LMR Provider 07/28/17 Margaux Montanez MD [address] [place] [address], [address] [place] [address] Historical LMR Provider 07/28/17 Khang Kilgore MD [address] [place] [address], [address] [place] [address] Insurance Assigned Provider 01/12/24 Neisha Pinto RN [address] [facility], [address] [place] [address] [email or web address] PHCM Commercial Sales Specialist 02/26/23 06/10/25 Shreyas Wilson MD [address] [place] [address] Gastroenterology 06/17/24 Doretha Glynn MD [address] [place] [address] [address] [place] [address] Endocrinology 06/17/24 Izzy Hackett [address] [place] [address] [email or web address] [facility] Community International Trade Teacher 09/11/24 09/11/24 Radha Pereira RN [address] [place] [address] [email or web address] PHC Commercial Sales SpecialistWeb Press Operator Assistant 06/11/25 Jv Liz [address] [place] [address] Tennis Professional 08/12/25 08/12/25 documented as of this encounter Additional Source Comments The information contained in this document represents components of the legal health record. It is not the complete legal health record.[facility]
--- OUTSIDE RECORDS SUMMARY | 2025-08-20 18:27 | XMS_ITS | Encounter Summary ---
Author Organization [facility] Address [address] [facility] [address] [place] [address] Phone Care Team Providers Care Internal Audit Director Name Role Phone Lester Hicks MD Unavailable [phone] Margaux Montanez MD Unavailable [phone] Johann Hanson PHYSICAL TESTING SUPERVISOR Primary Care Provider [phone] Khang Kilgore MD Unavailable [phone] Luis Ignacio DO Unavailable Flo Esteban MD Unavailable [phone] Neisha Pinto RN Unavailable [email or web address] Shreyas Wilson MD Unavailable [phone] Doretha Glynn MD Unavailable [phone] Izzy Hackett Unavailable [email or web address] Radha Pereira RN Unavailable Jv Liz Unavailable Encounter Details Date Type Department Care Team (Latest Contact Info) Description 12/22/2022 Transcribe Orders Virtual Department 30 [place] [address] Johann [place]on, PHYSICAL TESTING SUPERVISOR [address] [facility], [address] [place], [place] [phone] [email or web address] Breast screening (Primary Dx) Social History [...] EST Office Visit [facility] [address] [place] [address] Johann Hanson, TIFFANIE [address] [facility], [address] [place] [address] [email or web address] 09/10/2025 9:00 AM EST Office Visit [facility] 10 [place] [address] Unknown, Unknown, Shreyas Limon MD [address] [place] [address] 09/21/2025 2:30 PM EST Office Visit [facility] 10 [place] [address] Lester Hicks MD [address] [place] [address] 10/07/2025 7:15 AM EST Appointment [facility] 30 [place] [address] Lester Hicks MD [address] [place] [address] 10/13/2025 9:20 AM EST Office Visit [facility] [address] [place] [address] [place] [address] Doretha Glynn MD [address] [place] [address] [email or web address] 12/22/2025 8:30 AM EDT Office Visit [address] [place] [address] Johann [place]on, PHYSICAL TESTING SUPERVISOR [address] [place] [address], [address] [place] [address] [email or web address] 06/30/2026 8:00 AM EDT Office Visit [address] [place] [address] LeonelJohann hawley, PHYSICAL TESTING SUPERVISOR [address] [facility], [address] [place] [address] [email or web address] documented as of this encounter [...] documented as of this encounter Care Teams Internal Audit Director Relationship Specialty Start Date End Date Johann [place] CNP [address] [place] [address], [address] [place] [address] [email or web address] PCP - General Family Medicine 02/11/21 Lester Hicks MD [address] [place] [address] [email or web address] Historical LMR Provider 07/28/17 Margaux Montanez MD [address] [place] [address], [address] [place] [address] [email or web address] Historical LMR Provider 07/28/17 Khang Kilgore MD [address] [place] [address], [address] [place] [address] Insurance Assigned Provider 01/12/24 Luis Ignacio DO [address] [place] [address], [address] [place] [address] Cardiology 06/28/22 06/16/24 Flo Esteban MD [address] [place] [address] [email or web address] Cardiothoracic Surgery 06/28/22 06/16/24 Neisha Pinto RN [address] [place] [address] [email or web address] PHCM Asphalt Tamping Machine Operator 02/26/23 06/10/25 Shreyas Wilson MD [address] [place] [address] Gastroenterology 06/17/24 Doretha Glynn MD [address] [place] [address] [address] [place] [address] Endocrinology 06/17/24 Izzy Hackett [address] [place] [address] [email or web address] PHC Community Content Specialist 09/11/24 09/11/24 Radha Pereira, RANDI [address] [place] [address] PHCM Asphalt Tamping Machine OperatorEnvironmental Emergencies Assistant 06/11/25 Jv Liz [address] [place] [address] Rn Home Care 08/12/25 08/12/25 documented as of this encounter Additional Source Comments The information contained in this document represents components of the legal health record. It is not the complete legal health record.[facility]
--- OUTSIDE RECORDS SUMMARY | 2025-08-20 18:27 | XMS_ITS | Clinical Summary ---
Author Organization [facility] Address [address] [place] [address] Phone Care Team Providers Care Home Stager Name Role Phone Lester Hicks MD Unavailable [phone] Margaux Montanez MD Unavailable [phone] Eunice Sanz CNP Primary Care Provider [phone] Khang Kilgore MD Unavailable Shreyas Murphy MD Unavailable [phone] Doretha Glynn MD Unavailable [phone] Radha Pereira RN Unavailable Allergies Active [...] folic acid (FOLVITE) 1 MG tabletIndications :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, prison, current use TAKE 1 TABLET BY MOUTH [...] (PLAQUENIL) 200 mg tabletIndications :Inflammatory arthritis,Methotr exate, prison, current use,Primary osteoarthritis involving multiple joints,Sjogren's syndrome [...] 1 mL 27 x 1/2 SyrgIndications:M ethotrexate, intermediate designer, current use USE DIRECTED TO INJECT UNDER [...] 1 mL 27 x 1/2 SyrgIndications:M ethotrexate, intermediate designer, current use Inject 1 each under the [...] gain. 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 Given active and chronic GI symptoms, I [...] pain and has an orthopedics consult at [facility] this week. She is up to date [...] her to contact Long COVID clinic at [facility] for advice. Mouth sores 03/20/2022 Assessment & [...] recent labs from late July 2024 at [facility] quite stable on current regimen. Get labs [...] most recent labs from July 2024 at [facility] quite stable on current regimen. Get labs [...] thyroid hormone. Will communicate about labs through [place]. Reviewed symptoms of under and over replacement, patient to call if concerns. Follow-up in 6 months Assessment & Plan (04/23/2023 4:46 PM EDT): Establish care with endocrinology this fall as scheduled. For now, continue current dose of levothyroxine as last TSH was improved and she has not symptoms of over- or under-repletion. Assessment & Plan (07/22/2022 11:05 PM EDT): Close follow-up with treating correction officer supervisor exactly as instructed to keep her thyroid function within the optimal range. Assessment & Plan (04/04/2022 11:15 AM EDT): Close follow-up with treating correction officer supervisor exactly as instructed to keep her thyroid [...] therapy and follow-up as scheduled with her correction officer supervisor. Assessment & Plan (08/22/2020 6:54 PM EST): Carefully continue current dose of thyroid replacements therapy and follow-up as scheduled with her correction officer supervisor. Assessment & Plan (05/09/2020 4:52 PM EDT): Carefully continue current dose of thyroid replacements therapy and follow-up as scheduled with her correction officer supervisor. Assessment & Plan (12/18/2019 11:01 AM EDT): [...] TSH on 08/08/2019 was suppressed at 0.05 VA U/mL. I do not know when her [...] 8:01 AM EDT): Daily sun protection. See process control tech as scheduled at least every 12 months.-Most recent checkup from February 2025 Free of signs of Plaquenil toxicity She is arranging for ophthalmologic checkup in the nearest future. Assessment & Plan (03/19/2025 9:53 AM EDT): Daily sun protection. See process control tech as scheduled at least every 12 months.-Most recent checkup from February 2025 Free of signs of Plaquenil toxicity She is arranging for ophthalmologic checkup in the nearest future. Assessment & Plan (12/18/2024 1:02 PM EDT): Daily sun protection. See process control tech as scheduled at least every 12 months. She is arranging for ophthalmologic checkup in the nearest future. Assessment & Plan (10/03/2024 7:03 PM EST): Daily sun protection. See process control tech as scheduled at least every 12 months. She is arranging for ophthalmologic checkup in the nearest future. Assessment & Plan (06/06/2024 12:49 PM EDT): Daily sun protection. See process control tech as scheduled at least every 12 months. She is arranging for ophthalmologic checkup in the nearest future. Assessment & Plan (03/23/2024 12:09 PM EDT): Daily sun protection. See process control tech as scheduled at least every 12 months. Assessment & Plan (11/28/2023 9:30 AM EST): Daily sun protection. See process control tech as scheduled at least every 12 months. Assessment & Plan (05/04/2023 2:51 PM EDT): Daily sun protection. See process control tech as scheduled at least every 12 months. Assessment & Plan (10/30/2022 3:44 PM EST): Daily sun protection. See process control tech as scheduled at least every 12 months. Assessment & Plan (06/28/2022 4:12 PM EDT): Daily sun protection. See process control tech as scheduled at least every 12 months. Assessment & Plan (04/04/2022 11:18 AM EDT): Daily sun protection. See process control tech as scheduled at least every 12 months. Assessment & Plan (12/07/2021 4:45 PM EST): Daily sun protection. See process control tech as scheduled. Assessment & Plan (09/08/2021 3:46 PM EST): Daily sun protection. See process control tech as scheduled. Assessment & Plan (05/25/2021 4:46 PM EDT): Daily sun protection. See process control tech as scheduled. Assessment & Plan (03/24/2021 11:21 AM EDT): Daily sun protection. See process control tech as scheduled. Assessment & Plan (01/12/2021 4:02 PM EDT): Daily sun protection. See process control tech as scheduled. Assessment & Plan (10/24/2020 9:02 PM EST): Daily sun protection. See process control tech as scheduled. Assessment & Plan (08/22/2020 6:55 PM EST): Daily sun protection. See process control tech as scheduled. Assessment & Plan (05/09/2020 4:54 PM EDT): Daily sun protection. See process control tech as scheduled. Assessment & Plan (03/28/2020 12:14 PM EDT): Daily sun protection. See process control tech as scheduled. Assessment & Plan (02/05/2020 10:49 AM EDT): Daily sun protection. See process control tech as scheduled. Assessment & Plan (09/11/2019 8:47 AM EST): Daily sun protection. See process control tech as scheduled. Assessment & Plan (07/08/2019 3:06 PM EDT): Daily sun protection. See process control tech as scheduled. Assessment & Plan (03/25/2019 10:21 AM EDT): Daily sun protection. See process control tech as scheduled. Assessment & Plan (12/23/2018 2:36 PM EDT): Daily sun protection. See process control tech as scheduled. Assessment & Plan (11/19/2018 8:58 PM EST): Daily sun protection. Repair Coil Winder as scheduled. Dry mouth 01/04/2018 Calculus of [...] and prior to next visit-standing orders in [facility]. Consider neurology consult regarding headaches [...] safety and efficacy of therapy-standing orders in [facility]. Assessment & Plan (03/19/2025 9:48 AM EDT): Clinically currently well-controlled except L knee, hands and neck soreness and stiffness particularly in the morning. Get labs monitoring safety and efficacy of therapy prior to next visit-standing orders in [facility]. Consider neurology consult regarding headaches [...] safety and efficacy of therapy-standing orders in [facility]. Assessment & Plan (12/18/2024 10:06 PM EDT): Clinically currently well-controlled except L knee, hands and neck soreness and stiffness particularly in the morning. Get labs monitoring safety and efficacy of therapy today and prior to next visit-standing orders in [facility]. Consider neurology consult regarding headaches [...] safety and efficacy of therapy-standing orders in [facility]. Assessment & Plan (06/17/2024 11:48 AM EDT): Follow up with Dr. Hicks for Sjogren's, asthma. Continue inhalers. Assessment & Plan (06/06/2024 12:47 PM EDT): Clinically currently well-controlled except L knee, hands and neck soreness and stiffness particularly in the morning. Get labs monitoring safety and efficacy of therapy today and prior to next visit-standing orders in [facility]. Consider neurology consult regarding headaches [...] safety and efficacy of therapy-standing orders in [facility]. Assessment & Plan (03/14/2024 3:34 PM EDT): Clinically currently well-controlled. Get labs monitoring safety and efficacy of therapy prior to next visit-standing orders in [facility]. Consider neurology consult regarding headaches [...] therapy prior to next visit-standing orders in [facility]. Consider neurology consult regarding headaches [...] undergo L TKR under spinal anesthesia at [facility] in October 2025. Call if worse [...] at least every 3-4 months-standing orders in [facility]. Gentle, regular exercise routine. Avoid [...] at least every 3 months-standing orders in [facility]. Gentle, regular exercise routine. Avoid [...] at least every 3 months-standing orders in [facility]. Gentle, regular exercise routine. Avoid [...] therapy at least every 3 months. 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, prison, current use 10/04/2017 Assessment & Plan (07/23/2025 [...] mixture of 1% lidocaine and 40 mg Zbus-Sbublf-kjhpmh refer for details to procedure note below. [...] mixture of 1% lidocaine and 40 mg Xshs-Wqxdpm-wdaovy refer for details to procedure note below. [...] mixture of 1% lidocaine and 40 mg Yaop-Xohvpt-vslnqf refer for details to procedure note below. [...] mixture of 1% lidocaine and 40 mg Unvw-Zzrlvx-zknobw refer for details to procedure note below. 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 She agrees. [...] manifestation of SLE but will ask her target network analyst to weigh in. Unfortunately, the wait for [...] one of the aspiration procedures. Improved-followed by litigation coordinator and drum worker. Assessment & Plan (06/17/2024 11:46 AM EDT): S/P repair 2022. Await EGD this week. Assessment & Plan (06/06/2024 12:52 PM EDT): Corrected surgically in November 2022 with subsequent pleural effusions, vasovagal reaction upon one of the aspiration procedures. Improved-followed by litigation coordinator and drum worker. Assessment & Plan (02/28/2022 4:42 PM EDT): [...] Type Department Care Team Description 08/13/[address] [place] [address] Eunice Sanz CNP Medication Refill 08/07/2025 Orders Only [address] [place] [address] ProviderCesario MD 08/05/2025 Patient Outreach [facility] - Primary Care [address] [place] [address] Izzy Hackett Care Coordination (General outreach) 07/27/[address] [place] [address] Xiao Mkceon, RN Results 07/24/2025 Refill [facility] [address] [place] [address] [place] [address] Margaux Montanez MD Medication Refill 07/24/2025 Orders Only [address] [place] [address] Eunice Sanz CNP 07/23/2025 8:00 AM EDT Office Visit [facility] [address] [place] [address] [place] [address] Margaux Montanez MD SLE-Sjogren overlap syndrome (Primary Dx); Sjogren's syndrome with lung involvement; Inflammatory arthritis; Primary osteoarthritis involving multiple joints; 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, prison, current use; Long-term use of Plaquenil; Fibromyalgia; Gastroesophageal reflux disease with esophagitis without hemorrhage; Vitamin D insufficiency; PTSD (post-traumatic stress disorder); On selective serotonin reuptake inhibitor (SSRI) therapy; Class 1 obesity due to excess calories with serious comorbidity and body mass index (BMI) of 31.0 to 31.9 in adult 07/23/2025 Orders [place] [address] [place] [address] Eunice Sanz CNP Essential hypertension; Encounter for medication monitoring 07/22/2025 1:30 PM EDT Office Visit [address] [place] [address] Eunice Sanz CNP Screening for malignant neoplasm of cervix (Primary Dx); Primary osteoarthritis of both knees 07/16/2025 Telephone [facility] [address] [place] [address] Lester Hicks MD Appointment 07/06/2025 Enrollment [facility] - Primary Care [address] [place] [address] 07/06/2025 Refill [facility] [address] [place] [address] Lester Hicks MD Medication Refill 07/03/[address] [place] [address] Eunice Sanz CNP Lab sample 06/25/2025 7:33 AM EDT - 06/25/2025 11:59 PM EDT Hospital Encounter [facility] [address] [place] [address] Eunice Sanz CNP Discharge Disposition: Home or Self Care 06/24/2025 8:00 AM EDT Office Visit [address] [place] [address] Eunice Sanz CNP Encounter for general adult [...] Needs flu shot; Immunization counseling 06/18/[address] [place] [address] Eunice Sanz CNP Medication Refill 06/05/2025 Refill [facility] [address] [place] [address] [place] [address] Margaux Montanez MD Medication Refill 06/01/2025 Patient Outreach [facility] [address] [place] [address] Neisha Pinto, RANDI Care Coordination ([facility] Follow up outreach, [facility] transition letter ) 05/25/[address] [place] [address] Eunice Sanz CNP Medication Refill 05/25/2025 Telephone [facility] [address] [place] [address] [place] [address] Margaux Montanez MD 05/22/2025 Telephone [facility] [address] [place] [address] [place] [address] Margaux Montanez MD 06/17/2024 Procedure Pass [address] [address] from Last 3 Months Immunizations Immunization Administration [...] high school, GED, job training, learning the Turkish language, technical skills, or developing parenting skills)? [...] Description 08/24/2025 1:30 PM EST Office Visit [facility] [address] [place] [address] Eunice Sanz, CLASSIFIED COPY CONTROL CLERK [address] [facility] [place] [address] [email or web address] 09/10/2025 9:00 AM EST Office Visit [facility] [address] [place] [address] Unknown, Unknown, Shreyas Limno MD [address] [place] [address] 09/21/2025 2:30 PM EST Office Visit [facility] [address] [place] [address] Lester Hicks MD [address] [place] [address] 10/07/2025 7:15 AM EST Appointment [facility] [address] [place] [address] Lester Hicks MD [address] [place] [address] 10/13/2025 9:20 AM EST Office Visit [facility] [address] [place] [address] Doretha Glynn MD [address] [place] [address] [email or web address] 12/22/2025 8:30 AM EDT Office Visit [address] [place] [address] Eunice Sanz, CLASSIFIED COPY CONTROL CLERK [address] [place] [address], [address] [place] [address] [email or web address] 06/30/2026 8:00 AM EDT Office Visit [address] [place] [address] Eunice Sanz, CLASSIFIED COPY CONTROL CLERK [address] [place] [address], [address] [place] [address] [email or web address] Health Maintenance Due Date Last [...] syndrome with lung involvement Inflammatory arthritis 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, prison, current use BASIC METABOLIC PANEL (BMP) STAT [...] (07/22/2025 8:44 AM EDT) us Eunice Sanz CLASSIFIED COPY CONTROL CLERK CV ECHO ORDERABLES Final Result * Pap Test (07/22/2025 12:00 AM EDT) Only the most recent of2 resultswithin the time period is included. 07/22/2025 07/23/2025 9:2 3 AM EDT Narrative SEE NARRATIVE - 07/30/2025 1:38 PM EDT [address] [address] City Recorder: Dilan Sams MD FLOOR COVERING LAYER Cytology Report FINAL DIAGNOSIS A. PAP SMEAR (THIN PREP) CE: SPECIMEN ADEQUACY: Satisfactory for evaluation; limited squamous cellularity. Limited by inflammation INTERPRETATION: NEGATIVE FOR INTRAEPITHELIAL LESION OR MALIGNANCY. This specimen was analyzed by the automated ThinPrep Imaging System ([employer] and manually rescreened by a drapery installer and/or pathologist. Electronically Signed Out By: BRITT [...] PAP SMEAR (THIN PREP) CE Patient Name: HERLINAD HASKINS : 1960 (Age: 65) Sex: F Institution: [facility] Location: [facility] Date of Collection: 07/22/2025 Date of Reported: 07/30/2025 13:38 Results to: Eunice Sanz MSN Eunice Sanz [facility] CYTOLOGY ORDERABLES Final Result SEE NARRATIVE [...] AM EDT Type of EKG: Standard. Global (75087). Notes Sinus rhythm. QTc 450 ms, up from 433 in 2022. Slight left precordial repolarization disturbance. No ST/T wave changes. Echo ordered. Eunice Sanz CNP ECG ORDERABLES Edited Re sult - Final EXTERNAL NON-INTERFACED REF LAB * Comprehensive metabolic panel (05/14/2025 3:12 PM EDT) Blood Margaux Montanez MD LAB BLOOD BKR ORDERABLES Final Result Performing Organization Address [facility] de Phone Number EXTERNAL NON-INTERFACED REF LAB * Basic metabolic panel (03/12/2025 6:10 AM EDT) SODIUM 142 136 - 145 mmol/L [facility] POTASSIUM 3.4 3.4 - 5.1 mmol/L [facility] CHLORIDE 103 98 - 107 mmol/L [facility] CO2 31 22 - 31 mmol/L [facility] BUN 11 6 - 23 mg/dL [facility] CREATININE 0.80 0.50 - 1.20 mg/dL [facility] GLUCOSE 84 70 - 100 mg/dL [facility] CALCIUM 9.7 8.8 - 10.7 mg/dL [facility] EGFR 83 >59 mL/min/1.7 3m2 [facility] Comment:Estimated glomerular filtration rate calculated using the CKD-EPI refit equation. ANION GAP 8 7 - 17 mmol/L [facility] 03/12/2025 6:10 AM EDT 03/12/2025 6:48 AM EDT us Lj Moscoso MD, MPH LAB BLOOD BKR ORDERABLES Fi nal Result Performing Organization Address [facility] de Phone Number [facility] [address] [place] [address] * TSH (12/10/2024 4:12 PM EST) Blood us Doretha Glynn MD LAB BLOOD BKR ORDERABLES Final Result Performing Organization Address [facility] de Phone Number EXTERNAL NON-INTERFACED REF LAB * ENDOSCOPY, COLON (06/20/2024 9:51 AM EDT) Narrative Transcriptions Shreyas Murphy MD - 06/20/2024 9:51 AM EDT [facility] Patient Name: Herlinda Haskins Attending MD:: [...] 9:51 AM Procedure Code(s): --- Professional --- 96980, Colonoscopy, flexible; with biopsy, single or multiple --- Technical --- 10347, Colonoscopy, flexible; with biopsy, single or multiple Diagnosis Code(s): --- Professional --- K52.9, Noninfective gastroenteritis and colitis, unspecified --- Technical --- K52.9, Noninfective gastroenteritis and colitis, unspecified CPT copyright 2021 [employer]. All rights reserved. The codes documented in this report are preliminary and upon proofing machine operator reviewmay be revised to meet current compliance requirements. Procedure Date: 06/20/2024 9:51:[address] [place] [address] Eunice Sanz [facility] GI PROCEDURE ORDERABLES F inal Result * (ABNORMAL) Lipid panel (12/08/2020 4:37 PM EST) HDL 60 mg/dL [facility] Comment: Interpretation <40 mg/dL: Low HDL cholesterol (major risk factor for CHD) Greater than or equal to 60 mg/dL: High HDL cholesterol ( negative risk factor for CHD) HDL - cholesterol is affected by a number of factors, e.g. smoking, excerise, hormones, sex and age. CHOLESTEROL 192 0 - 240 mg/dL [facility] TRIGLYCERIDES 139 30 - 160 mg/dL [facility] LDL 104 50 - 129 mg/dL [facility] Comment: LDL levels in terms of risk for coronary heart disease: <100 mg/dL: Optimal 100-129 mg/dL: Near or above optimal 130-159 mg/dL: Borderline high 160-189 mg/dL: High >190 mg/dL: Very High CARDIAC RISK RATIO 3.2(L) 3.3 - 4.4 [facility] Blood 12/08/2020 4:37 PM EST 12/08/2020 4:45 PM EST Mamta Whitney DO LAB BLOOD BKR ORDERABLES F inal Result Performing Organization Address [facility]/ZIP Co de Phone Number [address] [address] * Fecal immunochemical test x1 (FIT) (04/15/2020 8:00 AM EDT) Immuno Fecal Occult Negative [facility] Stool (Stool) 04/15/2020 8:0 0 AM EDT 04/15/2020 4:23 PM EDT Alise Winkler PA-C LAB BODY FLUIDS AND STOOL ORDER AZUL Final Result Performing Organization Address [facility] Co de Phone Number [address] [address] * Outside Hepatitis C Virus Screening (07/14/2014) Hepatitis C Screening - External Neg Historical Provider LAB BLOOD ORDERABLES Ibis l Result * OUTSIDE HIV TEST (07/14/2014) HIV - External Neg Historical Provider LAB BLOOD ORDERABLES Ibis l Result from Last 3 Months or Most Recently Relevant to Health Maintenance Insurance [employer] [facility] ADMINISTRATORS [facility] ADMINISTRATORS Advance Directives For more information, please contact: [phone] (9AM - 5PM [facility], Sunday-Sunday) Documents on File Type Date Recorded Patient Internal Medicine Physician Assistant Expl anation Healthcare Proxy 11/21/2022 3:55 PM [...] Code Status Confirmed With: Patient Care Teams Home Stager Relationship Specialty Start Date End Date Eunice Sanz CNP [address] [place] [address], [address] [place] [address] [email or web address] PCP - General Family Medicine 02/11/21 Lester Hicks MD [address] [place] [address] Historical LMR Provider 07/28/17 Margaux Montanez MD [address], [address] [place] [address] [email or web address] Historical LMR Provider 07/28/17 Khang Kilgore MD [address] [facility] [place] [address] [email or web address] Insurance Assigned Provider 01/12/24 Shreyas Murphy MD [address] [place] [address] [email or web address] Gastroenterology 06/17/24 Doretha Glynn MD [address] [place] [address] [address] [place] [address] Endocrinology 06/17/24 Radha Pereira, RN [address] [place] [address] [email or web address] PHC Broom StitcherRaw Material Handler 06/11/25 Additional Source Comments The information contained in this document represents components of the legal health record. It is not the complete legal health record.[facility]
--- OUTSIDE RECORDS SUMMARY | 2025-08-20 18:27 | XMS_ITS | Encounter Summary ---
Author Organization [facility] Address [address] [place] [address] Phone Care Team Providers Care Medical Associate Name Role Phone Lester Hicks MD Unavailable [phone] Margaux Montanez MD Unavailable [phone] Johann Hanson CNP Primary Care Provider [phone] Khang Kilgore MD Unavailable Luis Ignacio DO Unavailable Flo Esteban MD Unavailable [phone] Neisha Pinto RN Unavailable [email or web address] Shreyas Wilson MD Unavailable Doretha Glynn MD Unavailable [phone] Izzy Hackett Unavailable [email or web address] Radha Pereira RN Unavailable Jv Liz Unavailable Encounter Details Date Type Department Care Team (Late st Contact Info) Description 12/22/2022 Procedure Pass [facility], [address] [id number] Social History Tobacco Use Types Packs/Day Years [...] 08/24/2025 1:30 PM EST Office Visit [facility] [place] [facility] [address] [place] [address] Johann Hanson, TIFFANIE 22 [facility], [address] [place] [address] [email or web address] 09/10/2025 9:00 AM EST Office Visit [facility] 10 [place] [address] Unknown, Unknown, Shreyas Limon MD [address] [place] [address] 09/21/2025 2:30 PM EST Office Visit [facility] 10 [place] [address] Lester Hicks MD [address] [place] [address] 10/07/2025 7:15 AM EST Appointment [facility] [address] [place] [address] Lester Hicks MD [address] [place] [address] 10/13/2025 9:20 AM EST Office Visit [facility] Endocrinology [address] [place] [address] [place] [address] Doretha Glynn MD [address] [place] [address] [email or web address] 12/22/2025 8:30 AM EDT Office Visit [address] [place] [address] Johann Hanson, MAIL TRUCK DRIVER [address] [place] [address], [address] [place] [address] [email or web address] 06/30/2026 8:00 AM EDT Office Visit [address] [place] [address] Johann Hanson, MAIL TRUCK DRIVER [address] [place] [address], [address] [place] [address] [email or web address] documented as of this encounter Visit Diagnoses Not on filedocumented in this encounter Additional Health Concerns Infection Onset Date Last Indicated Resolved Time COVID-19 10/07/2023 10/07/2023 10/28/2023 1:21 AM EST Assessment Noted Time PHQ-2 Depression Total Score: 0 01/01/20 23 1:26 PM EDT documented as of this encounter Care Teams Medical Associate Relationship Specialty Start Date End Date Johann Hanson CNP [address] [place] [address], [address] [place] [address] PCP - General Family Medicine 02/11/21 Lester Hicks MD [address] [place] [address] Historical LMR Provider 07/28/17 Margaux Montanez MD [address] [place] [address], [address] [place] [address] [email or web address] Historical LMR Provider 07/28/17 Khang Kilgore MD [address] [place] [address], [address] [place] [address] Insurance Assigned Provider 01/12/24 Luis Ignacio DO [address] [place] [address], [address] [place] [address] Cardiology 06/28/22 06/16/24 Flo Esteban MD [address] [place] [address] [place] [address] [email or web address] Cardiothoracic Surgery 06/28/22 06/16/24 Neisha Pinto, RANDI [address] [place], [place] [address] [place] [address] [email or web address] PHCM Tower Attendant 02/26/23 06/10/25 Shreyas Wilson MD [address] [place] [address] Gastroenterology 06/17/24 Doretha Glynn MD [address] [place] [address] Endocrinology 06/17/24 Izzy Hackett [address] [place] [address] [email or web address] PHC Community Machine Learning Intern 09/11/24 09/11/24 Radha Pereira RN [address] [place] [address] PHC Tower AttendantBluing Oven Tender 06/11/25 Jv Liz [address] [place] [address] Ichthyology Teacher 08/12/25 08/12/25 documented as of this encounter Additional Source Comments The information contained in this document represents components of the legal health record. It is not the complete legal health record.[facility]
--- OUTSIDE RECORDS SUMMARY | 2025-08-20 18:27 | XMS_ITS | Encounter Summary ---
Author Organization [facility] Address [address] [place] [address] Phone Care Team Providers Care Core Maker Name Role Phone Lester Hicks MD Unavailable [phone] Margaux Montanez MD Unavailable Johann Hanson CNP Primary Care Provider [phone] Khang Kilgore MD Unavailable Luis Ignacio DO Unavailable Flo Esteban MD Unavailable [phone] Neisha Pinto RN Unavailable [email or web address] Shreyas Wilson MD Unavailable Doretha Glynn MD Unavailable Izzy Hackett Unavailable [email or web address] Radha Pereira RN Unavailable Jv Liz Unavailable Encounter Details Date Type Department Care Team (Late st Contact Info) Description 12/11/2022 Procedure Pass [facility] 30 [place], [place] [id number] Social History Tobacco Use Types Packs/Day Years [...] high school, GED, job training, learning the Bahamian language, technical skills, or developing parenting skills)? [...] EST Office Visit [facility] [place] [facility] [address] [place] [address] Johann Hanson, TIFFANIE 22 [facility], [address] [place] [address] [email or web address] 09/10/2025 9:00 AM EST Office Visit [facility] 10 [place] [address] Unknown, [place], Shreyas Limon MD [address] [place] [address] 09/21/2025 2:30 PM EST Office Visit [facility] [address] [place] [address] Lester Hicks MD [address] [place] [address] 10/07/2025 7:15 AM EST Appointment [facility] [address] [place] [address] Lester Hicks MD [address] [place] [address] 10/13/2025 9:20 AM EST Office Visit [facility] [address] [place] [address] [place] [address] Doretha Glynn MD [address] [place] [address] [email or web address] 12/22/2025 8:30 AM EDT Office Visit [address] [place] [address] Johann Hanson, BLOOD BANK LABORATORY PROFESSIONAL [address] [place] [address], [address] [place] [address] [email or web address] 06/30/2026 8:00 AM EDT Office Visit [address] [place] [address] Johann Hanson, BLOOD BANK LABORATORY PROFESSIONAL [address] [place] [address], [address] [place] [address] [email or web address] documented as of this encounter Visit Diagnoses Not on filedocumented in this encounter Additional Health Concerns Infection Onset Date Last Indicated Resolved Time COVID-19 10/07/2023 10/07/2023 10/28/2023 1:21 AM EST Assessment Noted Time PHQ-2 Depression Total Score: 0 05/15/20 1:45 PM EDT documented as of this encounter Care Teams Core Maker Relationship Specialty Start Date End Date Johann Hanson CNP [address] [place] [address], [address] [place] [address] PCP - General Family Medicine 02/11/21 Lester Hicks MD [address] [place] [address] Historical LMR Provider 07/28/17 Margaux Montanez MD [address] [place] [address], [address] [place] [address] [email or web address] Historical LMR Provider 07/28/17 Khang Kilgore MD [address] [place] [address], [address] [place] [address] Insurance Assigned Provider 01/12/24 Luis Ignacio DO [address] [place] [address], [address] [place] [address] Cardiology 06/28/22 06/16/24 Flo Esteban MD [address] [place], [place] [address]D[address] [place] [address] [email or web address] Cardiothoracic Surgery 06/28/22 06/16/24 Neisha Pinto, RANDI [address] [place] [address] FND-7 [place] [address] [email or web address] PHCM Rock Loader 02/26/23 06/10/25 Shreyas Wilson MD [address] [place] [address] Gastroenterology 06/17/24 Doretha Glynn MD [address] [place] [address] Endocrinology 06/17/24 Izzy Hackett 10 [place] [address] [email or web address] PHC Community Mannequin Maker 09/11/24 09/11/24 Radha Pereira RN [address] [place] [address] PHC Rock LoaderVp Corporate Development 06/11/25 Jv Liz [address] [place] [address] Lining Machine Operator 08/12/25 08/12/25 documented as of this encounter Additional Source Comments The information contained in this document represents components of the legal health record. It is not the complete legal health record.[facility]
--- OUTSIDE RECORDS SUMMARY | 2025-08-20 18:27 | XMS_ITS | Encounter Summary ---
Author Organization [facility] Address [address] [place] [address] Phone Care Team Providers Care Welt Sewer Name Role Phone Lester Hicks MD Unavailable [phone] Margaux Montanez MD Unavailable [phone] Johann Hanson CNP Primary Care Provider [phone] Khang Kilgore MD Unavailable [phone] Luis Ignacio DO Unavailable Flo Esteban MD Unavailable [phone] Neisha Pinto RN Unavailable [email or web address] Shreyas Wilson MD Unavailable Doretha Glynn MD Unavailable [phone] Izzy Hackett Unavailable [email or web address] Radha Pereira RN Unavailable Jv Liz Unavailable Encounter Details Date Type Department Care Team (Late st Contact Info) Description 12/08/2022 Procedure Pass [facility] 30 [place], [place] [phone] Social History Tobacco Use Types Packs/Day Years [...] EST Office Visit [facility] [place] [facility] [address] [place] [address] Johann Hanson, TIFFANIE 22 [facility], [address] [place] [address] [email or web address] 09/10/2025 9:00 AM EST Office Visit [facility] 10 [place] [address] Unknown, [place], Shreyas Limon MD [address] [place] [address] 09/21/2025 2:30 PM EST Office Visit [facility] [address] [place] [address] Lester Hicks MD [address] [place] [address] 10/07/2025 7:15 AM EST Appointment [facility] [address] [place] [address] Lester Hicks MD [address] [place] [address] 10/13/2025 9:20 AM EST Office Visit [facility] [address] [place] [address] [place] [address] Doretha Glynn MD [address] [place] [address] [email or web address] 12/22/2025 8:30 AM EDT Office Visit [address] [place] [address] Johann Hanson, BENCH TOOL MAKER [address] [place] [address], [address] [place] [address] [email or web address] 06/30/2026 8:00 AM EDT Office Visit [address] [place] [address] Johann Hanson, BENCH TOOL MAKER [address] [place] [address], [address] [place] [address] [email or web address] documented as of this encounter Visit Diagnoses Not on filedocumented in this encounter Additional Health Concerns Infection Onset Date Last Indicated Resolved Time COVID-19 10/07/2023 10/07/2023 10/28/2023 1:21 AM EST Assessment Noted Time PHQ-2 Depression Total Score: 0 05/15/20 1:45 PM EDT documented as of this encounter Care Teams Welt Sewer Relationship Specialty Start Date End Date Johann Hanson CNP [address] [place] [address], [address] [place] [address] PCP - General Family Medicine 02/11/21 Lester Hicks MD [address] [place] [address] Historical LMR Provider 07/28/17 Margaux Montanez MD [address] [place] [address], [address] [place] [address] [email or web address] Historical LMR Provider 07/28/17 Khang Kilgore MD [address] [place] [address], [address] [place] [address] Insurance Assigned Provider 01/12/24 Luis Ignacio DO [address] [place] [address], [address] [place] [address] Cardiology 06/28/22 06/16/24 Flo Esteban MD [address] [place], [place] [address]D-7 [place] [address] [email or web address] Cardiothoracic Surgery 06/28/22 06/16/24 Neisha Pinto, RANDI [address] [place] [address] FND-7 [place] [address] [email or web address] PHCM Bridge Ironworker 02/26/23 06/10/25 Shreyas Wilson MD [address] [place] [address] Gastroenterology 06/17/24 Doretha Glynn MD [address] [place] [address] Endocrinology 06/17/24 Izzy Hackett 10 [place] [address] [email or web address] PHC Community Social Media Senior Associate 09/11/24 09/11/24 Radha Pereira RN [address] [place] [address] PHC Bridge IronworkerCustomer Insight Analyst 06/11/25 Jv Liz [address] [place] [address] Screw Machine Repairer 08/12/25 08/12/25 documented as of this encounter Additional Source Comments The information contained in this document represents components of the legal health record. It is not the complete legal health record.[facility]
--- OUTSIDE RECORDS SUMMARY | 2025-08-20 18:28 | XMS_ITS | Encounter Summary ---
Author Organization [facility] Address [address] [place] [address] [place] [address] Phone Care Team Providers Care Tooling Engineer Name Role Phone Tricia Balderas DO Unavailable Lester Hicks MD Unavailable [phone] Margaux Montanez MD Unavailable Demario Floyd MD Unavailable Pam Benson MD Unavailable Adithya Campos FIELD LIABILITY GENERALIST Unavailable Mamta Whitney DO Primary Care Provider [phone] Mamta Whitney DO Primary Care Provider [phone] Johann Hanson FIELD LIABILITY GENERALIST Primary Care Provider [phone] Khang Kilgore MD Unavailable Luis Ignacio DO Unavailable Flo Esteban MD Unavailable [phone] Dilan Rowland MD Unavailable [phone] Corby Prado MD Unavailable [phone] Neisha Pinto RN Unavailable [email or web address] Shreyas Wilson MD Unavailable Doretha Glynn MD Unavailable [phone] Izzy Hackett Unavailable sami Radha Pereira RN Unavailable [phone] Jv Liz Faraz Unavailable Encounter Details Date Type Department Care Team (Latest Contact Info) Description 04/14/2020 Transcribe Orders [facility] 10 [facility] 2nd [place] [address] Alise Winkler PA-C [address] [facility], [address] [place] [address] Fatigue, unspecified type (Primary Dx); Diarrhea, unspecified [...] 08/24/2025 1:30 PM EST Office Visit [facility] [address] [place] [address] Johann Hanson, TIFFANIE [address] [place] [address], [address] [place] [address] [email or web address] 09/10/2025 9:00 AM EST Office Visit [facility] 10 [place] [address] Unknown, Unknown, Shreyas Limon MD [address] [place] [address] 09/21/2025 2:30 PM EST Office Visit [facility] 10 [place] [address] Lester Hicks MD [address] [place] [address] 10/07/2025 7:15 AM EST Appointment [facility] 30 [place] [address] Lester Hicks MD [address] [place] [address] 10/13/2025 9:20 AM EST Office Visit [facility] [address] [place] [address] Doretha Glynn MD [address] [place] [address] [email or web address] 12/22/2025 8:30 AM EDT Office Visit [address] [place] [address] Johann Hanson, FIELD LIABILITY GENERALIST [address] [place] [address], [address] [place] [address] [email or web address] 06/30/2026 8:00 AM EDT Office Visit [address] [place] [address] Johann Hanson, FIELD LIABILITY GENERALIST [address] [place] [address], [address] [address] [email or web address] documented as of this encounter Results * Giardia antigen screen (04/15/2020 4:18 PM EDT) ST GIARDIA ANTIGEN Negative Negative [facility] DPT OF LAB MED AND PAT+ Comment: (NOTE) ADDITIONAL INFORMATION Test Performed by Enzyme Immunoassay. Stool (Stool) 04/15/2020 4:1 8 PM EDT 04/15/2020 4:24 PM EDT us Alise Winkler PA-C LAB BODY FLUIDS AND STOOL ORDER AZUL Final Result Performing Organization Address City/[facility]/ZIP Co de Phone Number [facility] DPT OF LAB MED AND PAT+ [address] [place] [address] * Ova and parasites, stool (04/15/2020 8:00 AM EDT) Special Requests None 04/15/2020 4:19 PM EDT [facility] DIRECT EXAM NO PARASITES FOUND BY DIRECT OR CONCENTRATION METHODS 04/26/2020 10:47 AM EDT [facility] DIRECT EXAM No parasites found by Trichrome Stain 04/26/2020 10:47 AM EDT [facility] Stool (Stool) 04/15/2020 8:0 0 AM EDT 04/15/2020 4:24 PM EDT Alise Winkler PA-C LAB BODY FLUIDS AND STOOL ORDER AZUL Final Result Performing Organization Address [facility] Co de Phone Number [address] [address] * Fecal immunochemical test x1 (FIT) (04/15/2020 8:00 AM EDT) Immuno Fecal Occult Negative [facility] Stool (Stool) 04/15/2020 8:0 0 AM EDT 04/15/2020 4:23 PM EDT Alise Winkler PA-C LAB BODY FLUIDS AND STOOL ORDER AZUL Final Result Performing Organization Address [facility] Co de Phone Number [address] [address] * Fecal leukocyte examination (04/15/2020 8:00 AM EDT) Special Requests None 04/15/2020 4:19 PM EDT [facility] GRAM STAIN No WBC seen on smear. 04/16/2020 8:47 AM EDT [facility] Stool (Stool) 04/15/2020 8:0 0 AM EDT 04/15/2020 4:24 PM EDT us Alise Winkler PA-C LAB BODY FLUIDS AND STOOL ORDER AZUL Final Result Performing Organization Address [facility]/ZIP Co de Phone Number [address] [address] * Stool culture (04/15/2020 8:00 AM EDT) Special Requests None 04/15/2020 4:19 PM EDT [facility] Stool Culture NO SALMONELLA, SHIGELLA OR CAMPYLOBACTER ISOLATED 04/16/2020 8:09 AM EDT [facility] Stool (Stool) 04/15/2020 8:0 0 AM EDT 04/15/2020 4:24 PM EDT us Alise Winkler PA-C LAB MICROBIOLOGY CULTURE ORDERA BLES Final Result Performing Organization Address [facility]/ZIP Co de Phone Number [address] [address] * Immunoglobulin A (04/14/2020 12:05 PM EDT) IgA 84 70 - 400 mg/dL [facility] Blood 04/14/2020 12:0 5 PM EDT 04/14/2020 12:23 PM EDT us Alise Winkler PA-C LAB BLOOD BKR ORDERABLES Final Result Performing Organization Address City/[facility]/ZIP Co de Phone Number [address] [address] * Tissue transglutaminase IgA (04/14/2020 12:05 PM EDT) TTG IGA ANTIBODY <1.2 <4.0 (Negative) U/mL [facility] Blood 04/14/2020 12:0 5 PM EDT 04/14/2020 12:22 PM EDT us Alise Winkler PA-C LAB BLOOD BKR ORDERABLES Final Result [facility] [address] [place] [address] documented in this encounter Visit Diagnoses Diagnosis [...] documented as of this encounter Care Teams Tooling Engineer Relationship Specialty Start Date End Date Mamta Whitney DO [address] [place] [phone] [email or web address] PCP - General Family Medicine 04/12/20 02/08/21 Mamta Whitney DO [address] [place] [address] [email or web address] PCP - General Family Medicine 02/10/21 02/10/21 Johann Hanson CNP [address] [place] [address], [address] [place] [address] PCP - General Family Medicine 02/11/21 Tricia Balderas DO 30 [place] [address] [email or web address] Historical LMR Provider 07/28/17 10/15/21 Lester Hicks MD [address] [place] [address] [email or web address] Historical LMR Provider 07/28/17 Margaux Montanez MD [address] [place] [address], [address] [place] [address] [email or web address] Historical LMR Provider 07/28/17 Demario Floyd MD [address] [place] [address] [email or web address] Historical LMR Provider 07/28/17 2 Pam Benson MD [address] [place] [address] [email or web address] Historical LMR Provider 07/28/17 Adithya Campos, FIELD LIABILITY GENERALIST [address] [place] [address] Historical LMR Provider 07/28/17 12/25/21 Khang Kilgore MD [address] [place] [address], [address] [place] [address] Insurance Assigned Provider 4/6/24 Luis Ignacio DO [address] [place] [address], [address] [place] [address] Cardiology 06/28/22 06/16/24 Flo Esteban MD [address] [place] [address] [place] [address] [email or web address] Cardiothoracic Surgery 06/28/22 06/16/24 Dilan Rowland MD [address] [place] [address], [address] [place] [address] Insurance Assigned Provider 07/15/22 08/13/22 Corby Prado MD [address] [place] [address], [address] [place] [address] [email or web address] Insurance Assigned Provider 08/13/22 09/16/22 Neisha Pinto RN [address] [place] [address], [address] [place] [address] [email or web address] Infusion 02/26/23 06/10/25 Shreyas Wilson MD [address] [place] [address] Gastroenterology 06/17/24 Doretha Glynn MD [address] [place] [address] [address] [place] [address] Endocrinology 06/17/24 Izzy Hackett [address] [place] [address] [email or web address] PHCM Community Services Engineer 09/11/24 09/11/24 Radha Pereira, RN 10 [place] [address] [email or web address] PHCM Manager InfusionCognos Analyst 06/11/25 Jv Liz [address] [place] [address] [email or web address] Yarn Twister 08/12/25 08/12/25 documented as of this encounter Additional Source Comments The information contained in this document represents components of the legal health record. It is not the complete legal health record.[facility]
--- OUTSIDE RECORDS SUMMARY | 2025-08-20 18:28 | XMS_ITS | Encounter Summary ---
Author Organization [facility] Address [address] [place] [address] [place] [address] Phone Care Team Providers Care Utilization Reviewer Name Role Phone Lester Hicks MD Unavailable Margaux Montanez MD Unavailable Johann Hanson CNP Primary Care Provider [phone] Khang Kilgore MD Unavailable Luis Ignacio DO Unavailable Flo Esteban MD Unavailable [phone] Corby Prado MD Unavailable [phone] Neisha Pinto RN Unavailable [email or web address] Shreyas Wilson MD Unavailable Doretha Glynn MD Unavailable [phone] Izzy Hackett Unavailable [email or web address] Radha Pereira RN Unavailable Jv Liz Unavailable Encounter Details Date Type Department Care Team (Late st Contact Info) Description 08/15/2022 Procedure Pass [facility], Ct Scan - [address] [id number] Social History Tobacco Use Types Packs/Day Years [...] high school, GED, job training, learning the [place]ian language, technical skills, or developing parenting skills)? [...] EST Office Visit [facility] [place] [facility] [address] [place] [address] Johann Hanson, TIFFANIE 22 [facility], [address] [place] [address] [email or web address] 09/10/2025 9:00 AM EST Office Visit [facility] 10 [place] [address] Unknown, [place], Shreyas Limon MD [address] [address] 09/21/2025 2:30 PM EST Office Visit [facility] 10 [place] [address] Lester Hicks MD [address] [place] [address] 10/07/2025 7:15 AM EST Appointment [facility] [address] [place] [address] Lester Hicks MD [address] [place] [address] 10/13/2025 9:20 AM EST Office Visit [facility] [address] [place] [address] Doretha Glynn MD [address] [place] [address] [email or web address] 12/22/2025 8:30 AM EDT Office Visit [address] [place] [address] Johann Hanson, TYPEWRITER MECHANIC [address] [place] [address], [address] [place] [address] [email or web address] 06/30/2026 8:00 AM EDT Office Visit [address] [place] [address] Johann Hanson, TYPEWRITER MECHANIC [address] [place] [address], [address] [place] [address] [email or web address] documented as of this encounter [...] documented as of this encounter Care Teams Utilization Reviewer Relationship Specialty Start Date End Date Johann Hanson CNP [address] [place] [address], [address] [place] [address] PCP - General Family Medicine 02/11/21 Lester Hicks MD [address] [place] [address] Historical LMR Provider 07/28/17 Margaux Montanez MD [address] [place] [address], [address] [place] [address] [email or web address] Historical LMR Provider 07/28/17 Khang Kilgore MD [address] [place] [address], [address] [place] [address] Insurance Assigned Provider 01/12/24 Luis Ignacio DO [address] [place] [address], [address] [place] [address] Cardiology 06/28/22 06/16/24 Flo Esteban MD [address] [place] [address] [place] [address] [email or web address] Cardiothoracic Surgery 06/28/22 06/16/24 Corby Prado MD [address] [place] [address], [address] [place] [address] Insurance Assigned Provider 08/13/22 09/16/22 Neisha Pinto RN [address] [place] [address], [address] [place] [address] [email or web address] PHCM Hat Parts Cutter Machine 02/26/23 06/10/25 Shreyas Wilson MD [address] [place] [address] Gastroenterology 06/17/24 Doretha Glynn MD [address] [place] [address] 3rd [place] [address] Endocrinology 06/17/24 Izzy Hackett [address] [place] [address] [email or web address] PHC Community Rocket Engine Component Mechanic 09/11/24 09/11/24 Radha Pereira, RN [address] [place] [address] PHCM Hat Parts Cutter MachineCard Doffer 06/11/25 Jv Liz [address] [place] [address] Emg Technician 08/12/25 08/12/25 documented as of this encounter Additional Source Comments The information contained in this document represents components of the legal health record. It is not the complete legal health record.[facility]
--- OUTSIDE RECORDS SUMMARY | 2025-08-20 18:28 | XMS_ITS | Encounter Summary ---
Author Organization [facility] Address [address] [place] [address] [place] [address] Phone Care Team Providers Care Senior Cytogenetics Laboratory Director Name Role Phone Lester Hicks MD Unavailable [phone] Margaux Montanez MD Unavailable Johann Hanson CNP Primary Care Provider [phone] Khang Kilgore MD Unavailable Luis Ignacio DO Unavailable Flo Esteban MD Unavailable [phone] Neisha Pinto RN Unavailable [email or web address] Shreyas Wilson MD Unavailable Doretha Glynn MD Unavailable [phone] Izzy Hackett Unavailable [email or web address] Radha Pereira RN Unavailable [phone] Jv Liz Unavailable Encounter Details Date Type Department Care Team (Late st Contact Info) Description 12/07/2022 Procedure Pass [facility], Ct Scan - [address] [id number] Social History Tobacco Use Types Packs/Day Years [...] 12/07/2022 9:18 AM Alise Hamilton, RN * [place] Suicide Severity Rating Scale (Screener/Recent Self-Report) Question [...] 1:30 PM EST Office Visit [facility] [address] [place] [address] Johann Hanson, SKIP HOIST OPERATOR 22 [facility], [address] [place] [address] [email or web address] 09/10/2025 9:00 AM EST Office Visit [facility] [address] [place] [address] Unknown, Unknown, Shreyas Limon MD [address] [place] [address] 09/21/2025 2:30 PM EST Office Visit [facility] 10 [place] [address] Lester Hicks MD [address] [place] [address] [phone] 10/07/2025 7:15 AM EST Appointment [facility] [address] [place] [address] [phone] Lester Hicks MD [address] [place] [address] 10/13/2025 9:20 AM EST Office Visit [facility] [address] [place] [address] Doretha Glynn MD [address] [place] [address] [email or web address] 12/22/2025 8:30 AM EDT Office Visit [facility] [address] [place] [address] Johann Hanson CNP 22 [facility], [address] [place] [address] [email or web address] 06/30/2026 8:00 AM EDT Office Visit [facility] [address] [place] [address] Johann Hanson CNP 22 [facility], [address] [place] [address] [email or web address] documented as of this encounter Visit Diagnoses Not on filedocumented in this encounter Additional Health Concerns Infection Onset Date Last Indicated Resolved Time COVID-19 10/07/2023 10/07/2023 10/28/2023 1:21 AM EST Assessment Noted Time PHQ-2 Depression Total Score: 0 05/15/20 1:45 PM EDT documented as of this encounter Care Teams Senior Cytogenetics Laboratory Director Relationship Specialty Start Date End Date Johann Hanson CNP [address] [place] [address], [address] [place] [address] PCP - General Family Medicine 02/11/21 Lester Hicks MD [address] [place] [address] Historical LMR Provider 07/28/17 Margaux Montanez MD [address] [place] [address], [address] [place] [address] [email or web address] Historical LMR Provider 07/28/17 Khang Kilgore MD [address] [place] [address], [address] [place] [address] Insurance Assigned Provider 01/12/24 Luis Ignacio DO [address] [place] [address], [address] [place] [address] Cardiology 06/28/22 06/16/24 Flo Esteban MD [address] [place] [address] [email or web address] Cardiothoracic Surgery 06/28/22 06/16/24 Neisha Pinto RN [address] [place] [address] [email or web address] PHCM Radio Interference Supervisor 02/26/23 06/10/25 Shreyas Wilson MD [address] [place] [address] Gastroenterology 06/17/24 Doretha lGynn MD [address] [place] [address] 3rd [place] [address] Endocrinology 06/17/24 Izzy Hackett [address] [place] [address] [email or web address] PHCM Community Paraprofessional Education Assistant 09/11/24 09/11/24 Radha Pereira RN [address] [place] [address] [email or web address] PHCM Radio Interference SupervisorDevelopment Technologist 06/11/25 Jv Liz [address] [place] [address] Abatement Worker 08/12/25 08/12/25 documented as of this encounter Additional Source Comments The information contained in this document represents components of the legal health record. It is not the complete legal health record.[facility]
--- OUTSIDE RECORDS SUMMARY | 2025-08-20 18:28 | XMS_ITS | Encounter Summary ---
Author Organization [facility] Address [address] [place] [address] [place] [address] Phone Care Team Providers Care Tax Accounting Assistant Name Role Phone Lester Hicks MD Unavailable [phone] Margaux Montanez MD Unavailable Johann Hanson CNP Primary Care Provider [phone] Khang Kilgore MD Unavailable Shreyas Wilson MD Unavailable Doretha Glynn MD Unavailable [phone] Radha Pereira RN Unavailable Jv Liz Unavailable Encounter Details Date Type Department Care Team (Late st Contact Info) Description 08/07/2025 Orders Only [facility] [place] [facility] [address] [place] [address] Provider, MD Cesario [address] [place] [address] Social History Tobacco Use Types Packs/Day [...] high school, GED, job training, learning the Nepalese language, technical skills, or developing parenting skills)? [...] Description 08/24/2025 1:30 PM EST Office Visit [facility] [address] [place] [address] [place] [address] Johann Hanson, EXTRUSION MANAGER 22 [facility], [address] [place] [address] [email or web address] 09/10/2025 9:00 AM EST Office Visit [facility] G[facility]enterology Clinic [address] [place] [address] Unknown, Unknown, Shreyas Limon MD [address] [place] [address] 09/21/2025 2:30 PM EST Office Visit [facility] 10 [place] [address] Lester Hicks MD [address] [place] [address] 10/07/2025 7:15 AM EST Appointment [facility] 30 [place] [address] Lester Hicks MD [address] [place] [address] [phone] 10/13/2025 9:20 AM EST Office Visit [facility] [address] [place] [address] Doretha Glynn MD [address] [place] [address] [email or web address] 12/22/2025 8:30 AM EDT Office Visit [address] [place] [address] Johann Hanson CNP 22 [facility], [address] [place] [address] [email or web address] 06/30/2026 8:00 AM EDT Office Visit [address] [place] [address] Johann Hanson CNP [address] [place] [address], [address] [place] [address] [email or web address] documented as of this encounter [...] documented as of this encounter Care Teams Tax Accounting Assistant Relationship Specialty Start Date End Date Johann Hanson CNP [address] [place] [address], [address] [place] [address] PCP - General Family Medicine 02/11/21 Lester Hicks MD [address] [place] [address] Historical LMR Provider 07/28/17 Margaux Montanez MD 22 [facility], [address] [place] [address] Historical LMR Provider 07/28/17 Khang Kilgore MD 22 [facility], [address] [place] [address] Insurance Assigned Provider 01/12/24 Shreyas Wilson MD [address] [place] [address] Gastroenterology 06/17/24 Doretha Glynn MD [address] [address] Endocrinology 06/17/24 Radha Pereira, RN [address] [place] [address] PHCM Java Software DeveloperTest Puller 06/11/25 Jv Liz [address] [place] [address] Inorganic Chemist 08/12/25 08/12/25 documented as of this encounter Additional Source Comments The information contained in this document represents components of the legal health record. It is not the complete legal health record.[facility]
--- OUTSIDE RECORDS SUMMARY | 2025-08-20 18:28 | XMS_ITS | Encounter Summary ---
Author Organization [facility] Address [address] [place] [address] [place] [address] Phone Care Team Providers Care Pharmaceutical Process Engineer Name Role Phone Tricia Balderas DO Unavailable Lester Hciks MD Unavailable [phone] Margaux Montanez MD Unavailable Demario Floyd MD Unavailable Pam Benson MD Unavailable [phone] Adithya Campos FENDER FINISHER Unavailable Beatriz Donaldson MOVIE OPERATOR Unavailable Beatriz Donaldson MOVIE OPERATOR Primary Care Provider Mamta Whitney DO Primary Care Provider [phone] Mamta Whitney DO Primary Care Provider [phone] Johann Hanson FENDER FINISHER Primary Care Provider [phone] Khang Kilgore MD Unavailable Luis Ignacio DO Unavailable Flo Esteban MD Unavailable [phone] Dilan Rowland MD Unavailable [phone] Corby Prado MD Unavailable [phone] Neisha Pinto RN Unavailable [email or web address] Shreyas Wilson MD Unavailable [phone] Doretha Glynn MD Unavailable [phone] Izzy Hackett Unavailable sami Radha Pereira RN Unavailable Jv Liz Unavailable Encounter Details Date Type Department Care Team (Late st Contact Info) Description 06/21/2018 Transcribe Orders [facility] Specimen Processing 30 [place] [address] Beatriz Donaldson, MOVIE OPERATOR [address] [place] [address] Routine general medical examination at a health care facility (Primary Dx); Sjogren's syndrome with lung involvement; Inflammatory arthritis; 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, prison, current use Social History Tobacco Use Types [...] Description 08/24/2025 1:30 PM EST Office Visit [facility] [address] [place] [address] Johann Hanson, TIFFANIE 22 [facility], [address] [place] [address] [email or web address] 09/10/2025 9:00 AM EST Office [facility] [address] [place] [address] Unknown, Unknown, Shreyas Limon MD [address] [place] [address] 09/21/2025 2:30 PM EST Office Visit [facility] Pulmonary, Allergy and Critical Care Medicine 10 [facility] [place] [address] Lester Hicks MD [address] [place] [address] 10/07/2025 7:15 AM EST Appointment [facility] PFT Lab [address] [place] [address] Lester Hicks MD [address] [place] [address] 10/13/2025 9:20 AM EST Office Visit [facility] [address] [place] [address] Doretha Glynn MD [address] [place] [address] [email or web address] 12/22/2025 8:30 AM EDT Office Visit [address] [place] [address] Johann Hanson, FENDER FINISHER [address] [place] [address], [address] [place] [address] [email or web address] 06/30/2026 8:00 AM EDT Office Visit [address] [place] [address] Johann Hanson, FENDER FINISHER [address] [place] [address], [address] [place] [address] [email or web address] documented as of this encounter Procedures Procedure Name Priority Date/Time Associated Diagnosis Comments IRON Routine 06/21/2018 4:35 PM EDT Routine general medical examination at a health care facility COMPREHENSIVE METABOLIC PANEL (CMP) Routine 06/21/2018 4:35 PM EDT Sjogren's syndrome with lung involvement Inflammatory arthritis 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, prison, current use SEDIMENTATION RATE (ESR) Routine 06/21/2018 4:35 PM EDT Sjogren's syndrome with lung involvement Inflammatory arthritis 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, rn long term care, current use CBC AND DIFFERENTIAL Routine 06/21/2018 4:35 PM EDT Sjogren's syndrome with lung involvement Inflammatory arthritis 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, rn long term care, current use COMPLEMENT C3 Routine 06/21/2018 4:35 PM EDT Sjogren's syndrome with lung involvement Inflammatory arthritis 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, rn long term care, current use COMPLEMENT C4 Routine 06/21/2018 4:35 PM EDT Sjogren's syndrome with lung involvement Inflammatory arthritis 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, rn long term care, current use C-REACTIVE PROTEIN (CRP) Routine 06/21/2018 4:35 PM EDT Sjogren's syndrome with lung involvement Inflammatory arthritis 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, rn long term care, current use THYROID STIMULATING HORMONE (TSH) Routine 06/21/2018 4:35 PM EDT Routine general medical examination at a health care facility FERRITIN Routine 06/21/2018 4:35 PM EDT Routine general medical examination at a health care facility documented in this encounter Results * Complement C4 (06/21/2018 4:35 PM EDT) COMPLEMENT C4 23 14 - 40 mg/dL [facility] DPT OF LAB MED AND PAT+ Blood 06/21/2018 4:35 PM EDT 06/22/2018 1:28 PM EDT us Margaux Montanez MD LAB BLOOD BKR ORDERABLES Final Result [facility] DPT OF LAB MED AND PAT+ [address] [place] [address] * Complement C3 (06/21/2018 4:35 PM EDT) COMPLEMENT C3 116 75 - 175 mg/dL [facility] DPT OF LAB MED AND PAT+ Blood 06/21/2018 4:35 PM EDT 06/22/2018 1:28 PM EDT us Margaux Montanez MD LAB BLOOD BKR ORDERABLES Final Result Performing Organization Address City/[facility]/ZIP Co de Phone Number [facility] DPT OF LAB MED AND PAT+ [address] [place] [address] * Sedimentation rate (ESR) (06/21/2018 4:35 PM EDT) ESR 4 0 - 30 mm/h [facility] Blood 06/21/2018 4:35 PM EDT 06/21/2018 5:56 PM EDT us Margaux Montanez MD LAB BLOOD BKR ORDERABLES Final Result Performing Organization Address City/[facility]/ZIP Co de Phone Number [address] [address] * C-Reactive Protein (06/21/2018 4:35 PM EDT) C REACTIVE PROTEIN 0.5 0.0 - 4.0 mg/L [facility] Blood 06/21/2018 4:35 PM EDT 06/21/2018 5:56 PM EDT us Margaux Montanez MD LAB BLOOD BKR ORDERABLES Final Result Performing Organization Address City/[facility]/ZIP Co de Phone Number [address] [address] * Comprehensive metabolic panel (06/21/2018 4:35 PM EDT) SODIUM 144 133 - 146 mmol/L [facility] POTASSIUM 3.6 3.3 - 5.1 mmol/L [facility] CHLORIDE 100 96 - 108 mmol/L [facility] CO2 30 21 - 35 mmol/L [facility] BUN 13 6 - 19 mg/dL [facility] CREATININE 0.70 0.5 - 1.5 mg/dL [facility] GLUCOSE 89 70 - 99 mg/dL [facility] ALBUMIN 4.3 3.9 - 4.8 g/dL [facility] TOTAL PROTEIN 6.7 6.5 - 8.0 g/dL [facility] CALCIUM 9.9 8.4 - 10.3 mg/dL [facility] ALKALINE PHOSPHATASE 59 39 - 117 U/L [facility] TOTAL BILIRUBIN 0.2 0.0 - 1.2 mg/dL [facility] AST 22 0 - 37 U/L [facility] ALT 16 0 - 40 U/L [facility] GLOBULIN 2.4 1 - 4.8 g/dL [facility] EGFR 97 >59 mL/min/1.7 3m2 [facility] Comment:If patient is black, multiply result by 1.159. Estimated glomerular filtration rate calculated using the CKD-EPI equation. ANION GAP 18 10 - 20 mmol/L [facility] Blood 06/21/2018 4:35 PM EDT 06/21/2018 5:56 PM EDT us Margaux Montanez MD LAB BLOOD BKR ORDERABLES Final Result [facility] [address] [place] [address] * CBC and differential (06/21/2018 4:35 PM EDT) WBC 5.00 3.40 - 11.20 K/uL [facility] RBC 4.23 3.80 - 4.80 M/uL [facility] HGB 13.2 12.0 - 15.0 g/dL [facility] HCT 39.5 36.0 - 46.0 % [facility] PLT 229 130 - 400 K/uL [facility] MCV 93.4 79.0 - 98.0 fL [facility] MCH 31.2 27.0 - 34.8 pg [facility] MCHC 33.4 31.5 - 36.0 g/dL [facility] RDW 12.9 10.8 - 14.6 % [facility] MPV 10.5 9.4 - 12.4 fl [facility] NRBC 0.00 /100 WBCs [facility] ABSOLUTE NRBC 0.00 K/uL [facility] DIFF METHOD Auto [facility] NEUTS 53.8 45.30 - 77.70 % [facility] LYMPHS 34.4 12.30 - 39.70 % [facility] MONOS 8.2 4.10 - 12.80 % [facility] EOS 2.6 0 - 7.2 % [facility] BASOS 0.8 0 - 2.80 % [facility] Granulocytes, immature (%) 0.2 0.0 - 0.9 % [facility] ABSOLUTE NEUTS 2.69 1.40 - 7.70 K/uL [facility] ABSOLUTE LYMPHS 1.72 0.60 - 3.20 K/uL [facility] ABSOLUTE MONOS 0.41 0.11 - 0.59 K/uL [facility] ABSOLUTE EOS 0.13 0.01 - 0.50 K/uL [facility] ABSOLUTE BASOS 0.04 0.00 - 0.08 K/uL [facility] Granulocytes, immature 0.01 0.00 - 0.05 K/uL [facility] Blood 06/21/2018 4:35 PM EDT 06/21/2018 5:56 PM EDT us Margaux Montanez MD LAB BLOOD BKR ORDERABLES Final Result [facility] [address] [place] [address] * Ferritin (06/21/2018 4:35 PM EDT) FERRITIN 43 13 - 150 ug/L [facility] Blood 06/21/2018 4:35 PM EDT 06/21/2018 5:56 PM EDT us Beatriz Donaldson MOVIE OPERATOR LAB BLOOD BKR ORDERABLES Fin al Result Performing Organization Address [facility] Co de Phone Number [address] [address] * Iron (06/21/2018 4:35 PM EDT) IRON 64 30 - 160 ug/dL [facility] Blood 06/21/2018 4:35 PM EDT 06/21/2018 5:56 PM EDT Beatriz Donaldson MOVIE OPERATOR LAB BLOOD ORDERABLES Final R esult Performing Organization Address [facility] de Phone Number [address] [address] * (ABNORMAL) TSH (06/21/2018 4:35 PM EDT) TSH 0.04(L) 0.27 - 4.20 uIU/mL [facility] Blood 06/21/2018 4:35 PM EDT 06/21/2018 5:56 PM EDT Beatriz Donaldson MOVIE OPERATOR LAB BLOOD BKR ORDERABLES Fin al Result Performing Organization Address [facility] de Phone Number [address] [address] documented in this encounter Visit Diagnoses Diagnosis Routine general medical examination at a health care facility- Primary Sjogren's syndrome with lung involvement Inflammatory arthritis Unspecified inflammatory polyarthropathy 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, prison, current use documented in this encounter Additional Health Concerns Infection Onset Date Last Indicated Resolved Time CoV-Presumed 05/27/2022 05/27/2022 06/17/2022 1:21 AM EDT CoV-Presumed Comment:COVID-19 Added 10/12/2022 10/12/2022 10/13/2022 6:26 P M EST COVID-19 10/13/2022 10/13/2022 11/03/2022 1:21 AM EST COVID-19 10/07/2023 10/07/2023 10/28/2023 1:21 AM EST documented as of this encounter Care Teams Pharmaceutical Process Engineer Relationship Specialty Start Date End Date Beatriz Donaldson Faraz MOVIE OPERATOR [address] [place] [address] PCP - General Family Medicine 10/04/17 04/11/20 Mamta Whitney DO [address] [place] [address] [email or web address] PCP - General Family Medicine 04/12/20 02/08/21 Mamta Whitney DO [address] [place] [address] [email or web address] PCP - General Family Medicine 02/10/21 02/10/21 Johann Hanson CNP [address] [place] [address], [address] [place] [address] PCP - General Family Medicine 02/11/21 Tricia Balderas DO [address] [place] [address] [email or web address] Historical LMR Provider 07/28/17 10/15/21 Lester Hicks MD [address] [place] [address] Historical LMR Provider 07/28/17 Margaux Montanez MD [address] [place] [address], [address] [place] [address] Historical LMR Provider 07/28/17 Demario Floyd MD [address] [place] [address] [email or web address] Historical LMR Provider 07/28/17 10/15/21 Pam Benson MD [address] [place] [address] Historical LMR Provider 07/28/17 10/15/21 Adithya Campos FENDER FINISHER [address] [place] [address] Historical LMR Provider 07/28/17 12/25/21 Beatriz Donaldson NP [address] [place] [address] Historical LMR Provider 07/28/17 04/11/20 Khang Kilgore MD [address] [place] [address], [address] [place] [address] Insurance Assigned Provider 01/12/24 Luis Ignacio DO [address] [place] [address], [address] [place] [address] Cardiology 06/28/22 06/16/24 Flo Esteban MD [address] [place] [address] [place] [address] [email or web address] [email or web address] 06/28/22 06/16/24 Dilan Rowland MD [address] [place] [address], [address] [place] [address] Insurance Assigned Provider 07/15/22 08/13/22 Corby Prado MD [address] [place] [address], [address] [place] [address] Insurance Assigned Provider 08/13/22 09/16/22 Neisha Pinto RN [address] [place] [address], [address] [place] [address] [email or web address] PHCM Belting Cutter 02/26/23 06/10/25 Shreyas Wilson MD [address] [place] [address] Gastroenterology 06/17/24 Doretha Glynn MD [address] [place] [address] [address] [place] [address] Endocrinology 06/17/24 Izzy Hackett [address] [place] [address] [email or web address] PHC Community Truck Chauffeur 09/11/24 09/11/24 Radha Pereira, RN [address] [place] [address] PHCM Belting CutterCloth Finisher 06/11/25 Jv Liz [address] [place] [address] Personal Computer Network Engineer 08/12/25 08/12/25 documented as of this encounter Additional Source Comments The information contained in this document represents components of the legal health record. It is not the complete legal health record.[facility]
--- OUTSIDE RECORDS SUMMARY | 2025-08-20 18:28 | XMS_ITS | Encounter Summary ---
Author Organization [facility] Address [address] [place] [address] Phone Care Team Providers Care Salesperson Trailers [employer] Name Role Phone Lester Hicks MD Unavailable [phone] Margaux Montanez MD Unavailable Johann Hanson CNP Primary Care Provider [phone] Khang Kilgore MD Unavailable [phone] Neisha Pinto RN Unavailable [email or web address] Shreyas Wilson MD Unavailable [phone] Doretha Glynn MD Unavailable [phone] Izzy Hackett Unavailable [email or web address] Radha Pereira RN Unavailable [phone] Jv Liz Unavailable Encounter Details Date Type Department Care Team (Late st Contact Info) Description 06/17/2024 Procedure Pass [address] [address] Social History Tobacco Use Types Packs/Day Years [...] Description 08/24/2025 1:30 PM EST Office Visit [facility] [address] [place] [address] Johann Hanson, MOMD TEACHER 22 [facility], [address] [place] [address] [email or web address] 09/10/2025 9:00 AM EST Office Visit [facility] 10 [place] [address] Unknown, Unknown, Shreyas Limon MD [address] [place] [address] 09/21/2025 2:30 PM EST Office Visit [facility], All[facility] Critical Care Medicine 10 [place] [address] Lester Hicks MD [address] [place] [address] 10/07/2025 7:15 AM EST Appointment [facility]FT Lab 30 [place] [address] Lester Hicks MD [address] [place] [address] 10/13/2025 9:20 AM EST Office Visit [facility] [address] [place] [address] Doretha Glynn MD [address] [place] [address] [email or web address] 12/22/2025 8:30 AM EDT Office Visit [address] [place] [address] Johann Hanson CNP [address] [place] [address], [address] [place] [address] [email or web address] 06/30/2026 8:00 AM EDT Office Visit [address] [place] [address] Johann Hanson CNP [address] [place] [address], [address] [place] [address] [email or web address] documented as of this encounter Visit Diagnoses Not on filedocumented in this encounter Additional Health Concerns Assessment Noted Time PHQ-9 Depression Total Score: 4 10/29/19 24 1:54 PM EST PHQ-2 Depression Total Score: 0 06/23/20 25 12:32 PM EDT documented as of this encounter Care Teams Salesperson Trailers And Motor [employer] Relationship Specialty Start Date End Date Johann Hanson CNP [address] [place] [address], [address] [place] [address] [email or web address] PCP - General Family Medicine 02/11/21 Lester Hicks MD [address] [place] [address] [email or web address] Historical LMR Provider 07/28/17 Margaux Montanez MD [address] [place] [address], [address] [place] [address] Historical LMR Provider 07/28/17 Khang Kilgore MD [address] [place] [address], [address] [place] [address] Insurance Assigned Provider 01/12/24 Neisha Pinto RN 22 [facility], [address] [place] [address] [email or web address] Database Administration Associate 02/26/23 06/10/25 Shreyas Wilson MD [address] [place] [address] Gastroenterology 06/17/24 Doretha Glynn MD [address] [place] [address] Endocrinology 06/17/24 Izzy Hackett [address] [place] [address] [email or web address] Community Cell Changer 09/11/24 09/11/24 Radha Pereira RN [address] [place] [address] PHC Database Administration AssociateImpression Printer 06/11/25 Jv Liz [address] [place] [address] Recovery Assistant 08/12/25 08/12/25 documented as of this encounter Additional Source Comments The information contained in this document represents components of the legal health record. It is not the complete legal health record.[facility]
--- OUTSIDE RECORDS SUMMARY | 2025-08-20 18:28 | XMS_ITS | Encounter Summary ---
Author Organization [facility] Address [address] [facility] [address] [place] [address] Phone Care Team Providers Care Change Management Coordinator Name Role Phone Lester Hicks MD Unavailable [phone] Margaux Montanez MD Unavailable Johann Hanson CNP Primary Care Provider [phone] Khang Kilgore MD Unavailable [phone] Neisha Pinto RN Unavailable [email or web address] Shreyas Wilson MD Unavailable [phone] Doretha Glynn MD Unavailable [phone] Radha Pereira RN Unavailable [phone] Jv Liz Unavailable Reason for Visit * Reason Comments Medication Refill Encounter Details Date Type Department Care Team (Late st Contact Info) Description 06/05/2025 Refill [facility] Rheumatology 22 [place], [place] [phone] Margaux Montanez MD 22 [facility], [address] [place] [address] [email or web address] Medication Refill [...] Description 08/24/2025 1:30 PM EST Office Visit [facility] [address] [address] Johann Hanson, TIFFANIE 22 [facility], [address] [place] [address] [email or web address] 09/10/2025 9:00 AM EST Office Visit [facility] [address] [place] [address] Unknown, [place], Shreyas Limon MD [address] [place] [address] 09/21/2025 2:30 PM EST Office Visit [facility] Pulmonary, Allergy and Critical Care Medicine 10 [facility] [place] [address] Lester Hicks MD [address] [place] [address] 10/07/2025 7:15 AM EST Appointment [facility] PFT Lab 30 [place] [address] Lester Hicks MD [address] [place] [address] 10/13/2025 9:20 AM EST Office Visit [facility] 22 [place] [address] Doretha Glynn MD [address] [place] [address] [email or web address] 12/22/2025 8:30 AM EDT Office Visit [address] [address] Johann Hanson CNP [address] [place] [address], [address] [place] [address] [email or web address] 06/30/2026 8:00 AM EDT Office Visit [address] [address] Johann Hanson CNP [address] [place] [address], [address] [place] [address] [email or web address] documented as of this encounter Visit Diagnoses Diagnosis Inflammatory arthritis Unspecified inflammatory polyarthropathy documented in this encounter Additional Health Concerns Assessment Noted Time PHQ-9 Depression Total Score: 4 10/29/19 1:54 PM EST PHQ-2 Depression Total Score: 0 06/10/20 9:22 AM EDT documented as of this encounter Care Teams Change Management Coordinator Relationship Specialty Start Date End Date Johann Hanson CNP [address] [place] [address], [address] [place] [address] PCP - General Family Medicine 02/11/21 Lester Hicks MD [address] [place] [address] [email or web address] Historical LMR Provider 07/28/17 Margaux Montanez MD [address] [place] [address], [address] [place] [address] [email or web address] Historical LMR Provider 07/28/17 Khang Kilgore MD [address] [place] [address], [address] [place] [address] [email or web address] Insurance Assigned Provider 01/12/24 Neisha Pinto RN [address] [place] [address], [address] [place] [address] [email or web address] Insect Control Inspector 02/26/23 06/10/25 Shreyas Wilson MD [address] [place] [address] [email or web address] Gastroenterology 06/17/24 Doretha Gylnn MD [address] [place] [address] [email or web address] Endocrinology 06/17/24 Radha Pereira RN [address] [place] [address] [email or web address] PHCM Insect Control InspectorPipe Assembly Worker 06/11/25 Jv Liz [address] [place] [address] [email or web address] Jewel Supervisor 08/12/25 08/12/25 documented as of this encounter Additional Source Comments The information contained in this document represents components of the legal health record. It is not the complete legal health record.[facility]
--- OUTSIDE RECORDS SUMMARY | 2025-08-20 18:28 | XMS_ITS | Encounter Summary ---
Author Organization [facility] Address [address] [place] [address] [place] [address] Phone Care Team Providers Care Corporate Sales Manager Name Role Phone Lester Hicks MD Unavailable [phone] Margaux Montanez MD Unavailable Johann Hanson CNP Primary Care Provider [phone] Khang Kilgore MD Unavailable [phone] Luis Ignacio DO Unavailable Flo Esteban MD Unavailable [phone] Neisha Pinto RN Unavailable [email or web address] Shreyas Wilson MD Unavailable Doretha Glynn MD Unavailable [phone] Izzy Hackett Unavailable [email or web address] Radha Pereira RN Unavailable [phone] Jv Liz Unavailable Encounter Details Date Type Department Care Team (Latest Contact Info) Description 12/28/2023 Transcribe Orders [facility] Department 30 [place], [place] [phone] Shreyas Wilson MD [address] [place] [address] [phone] [email or web address] Dysphagia, unspecified type (Primary Dx); Nausea and [...] high school, GED, job training, learning the [place] language, technical skills, or developing parenting [...] Description 08/24/2025 1:30 PM EST Office Visit [facility] Family Medicine [address] [place] [address] [place] [address] Johann Hanson, OPHTHALMIC NURSE 22 [facility], [address] [place] [address] [email or web address] 09/10/2025 9:00 AM EST Office Visit [facility] [address] [place] [address] Unknown, Unknown, Shreyas Limon MD [address] [place] [address] 09/21/2025 2:30 PM EST Office Visit [facility] Critical [facility] Medicine 10 [place] [address] Lester Hicks MD [address] [place] [address] 10/07/2025 7:15 AM EST Appointment [facility] 30 [place] [address] Lester Hicks MD [address] [place] [address] [id number] 10/13/2025 9:20 AM EST Office Visit [facility] Endocrinology [address] [place] [address] Doretha Glynn MD [address] [place] [address] [email or web address] 12/22/2025 8:30 AM EDT Office Visit [address] [place] [address] Johann Hanson, OPHTHALMIC NURSE [address] [facility], [address] [place] [address] [email or web address] 06/30/2026 8:00 AM EDT Office Visit [address] [place] [address] Johann Hanosn, OPHTHALMIC NURSE [address] [place] [address], [address] [place] [address] [email or web address] documented as of this encounter [...] as of this encounter Care Teams Corporate Sales Manager Relationship Specialty Start Date End Date Johann Hanson CNP [address] [place] [address], [address] [place] [address] PCP - General Family Medicine 02/11/21 Lester Hicks MD [address] [place] [address] Historical LMR Provider 07/28/17 Margaux Montanez MD [address] [place] [address], [address] [place] [address] [email or web address] Historical LMR Provider 07/28/17 Khang Kilgore MD [address] [place] [address], [address] [place] [address] Insurance Assigned Provider 01/12/24 Luis Ignacio DO [address] [facility], [address] [place] [address] Cardiology 06/28/22 06/16/24 Flo Esteban MD [address] [place] [address] [email or web address] Cardiothoracic Surgery 06/28/22 06/16/24 Neisha Pinto RN [address] [place] [address] [email or web address] PHCM Merchandise Supervisor 02/26/23 06/10/25 Shreyas Wilson MD [address] [place] [address] Gastroenterology 06/17/24 Doretha Glynn MD 22 [facility] [address] [place] [address] Endocrinology 06/17/24 Izzy Hackett 10 [place] [address] [email or web address] PHC Community Butcher Scullion 09/11/24 09/11/24 Radha Pereira RN [address] [place] [address] PHCM Merchandise SupervisorCertified Social Workers In Health Care 06/11/25 Jv Liz [address] [place] [address] Magician Helper 08/12/25 08/12/25 documented as of this encounter Additional Source Comments The information contained in this document represents components of the legal health record. It is not the complete legal health record.[facility]
--- OUTSIDE RECORDS SUMMARY | 2025-08-20 18:28 | XMS_ITS | Encounter Summary ---
Author Organization [facility] Address [address] [place] [address] [place] [address] Phone Care Team Providers Care Welt Insole Channeler Name Role Phone Lester Hicks MD Unavailable [phone] Margaux Montanez MD Unavailable Johann Hanson CNP Primary Care Provider [phone] Khang Kilgore MD Unavailable Luis Ignacio DO Unavailable Flo Esteban MD Unavailable [phone] Neisha Pinto RN Unavailable [email or web address] Shreyas Wilson MD Unavailable Doretha Glynn MD Unavailable [phone] Izzy Hackett Unavailable [email or web address] Radha Pereira RN Unavailable [phone] Jv Liz Unavailable Encounter Details Date Type Department Care Team (Late st Contact Info) Description 10/12/2022 Procedure Pass [facility] [address] [place] [id number] Social History Tobacco Use Types Packs/Day Years [...] EST Office Visit [facility] [place] [facility] [address] [place] [address] Johann Hanson, TIFFANIE 22 [facility], [address] [place] [address] [email or web address] 09/10/2025 9:00 AM EST Office Visit [facility] Gastroenterology Clinic 10 [place] [address] Unknown, [place], Shreyas Limon MD [address] [place] [address] 09/21/2025 2:30 PM EST Office Visit [facility] [address] [place] [address] Lester Hicks MD [address] [place] [address] 10/07/2025 7:15 AM EST Appointment [facility] [address] [place] [address] Lester Hicks MD [address] [place] [address] 10/13/2025 9:20 AM EST Office Visit [facility] [address] [place] [address] [place] [address] Doretha Glynn MD [address] [place] [address] [email or web address] 12/22/2025 8:30 AM EDT Office Visit [address] [place] [address] Johann Hanson, AUTO FINANCE SALES REP [address] [place] [address], [address] [place] [address] [email or web address] 06/30/2026 8:00 AM EDT Office Visit [address] [place] [address] Johann Hanson, AUTO FINANCE SALES REP [address] [place] [address], [address] [place] [address] [email or web address] documented as of this encounter [...] as of this encounter Care Teams Welt Insole Channeler Relationship Specialty Start Date End Date Johann Hanson CNP [address] [place] [address], [address] [place] [address] PCP - General Family Medicine 02/11/21 Lester Hicks MD [address] [place] [address] Historical LMR Provider 07/28/17 Margaux Montanez MD [address] [place] [address], [address] [place] [address] [email or web address] Historical LMR Provider 07/28/17 Khang Kilgore MD [address] [place] [address], [address] [place] [address] Insurance Assigned Provider 01/12/24 Luis Ignacio DO [address] [place] [address], [address] [place] [address] Cardiology 06/28/22 06/16/24 Flo Esteban MD [address] [place] [address] [email or web address] Cardiothoracic Surgery 06/28/22 06/16/24 Neisha Pinto RN [address] [place] [address] [email or web address] PHCM Marksmanship Instructor 02/26/23 06/10/25 Shreyas Wilson MD [address] [place] [address] Gastroenterology 06/17/24 Doretha Glynn MD [address] [place] [address] Endocrinology 06/17/24 Izzy Hackett [address] [place] [address] [email or web address] [facility] Community Scruff Worker 09/11/24 09/11/24 Radha Pereira RN [address] [place] [address] PHC Marksmanship InstructorPowerhouse Helper 06/11/25 Jv Liz [address] [place] [address] Applied Anthropologist 08/12/25 08/12/25 documented as of this encounter Additional Source Comments The information contained in this document represents components of the legal health record. It is not the complete legal health record.[facility]
--- OUTSIDE RECORDS SUMMARY | 2025-08-20 18:28 | XMS_ITS | Encounter Summary ---
Author Organization [facility] Address [address] [place] [address] [place] [address] Phone Care Team Providers Care Geothermal Electrical Engineer Name Role Phone Lester Hicks MD Unavailable [phone] Margaux Montanez MD Unavailable [phone] Johann Hanson CNP Primary Care Provider [phone] Khang Kilgore MD Unavailable Luis Ignacio DO Unavailable Flo Esteban MD Unavailable [phone] Neisha Pinto RN Unavailable [email or web address] Shreyas Wilson MD Unavailable [phone] Doretha Glynn MD Unavailable [phone] Izzy Hackett Unavailable [email or web address] Radha Pereira RN Unavailable Jv Liz Unavailable Encounter Details Date Type Department Care Team (Late st Contact Info) Description 11/17/2022 Procedure Pass [facility] [address] [place] [facility] [place] [phone] Social History Tobacco Use Types Packs/Day Years [...] 11/17/2022 7:00 PM David Mccormick RN * [place] Suicide Severity Rating Scale (Screener/Recent Self-Report) Question [...] Description 08/24/2025 1:30 PM EST Office Visit [address] [place] [address] Johann Hanson, [place] MACHINE OPERATOR 22 [facility], [address] [place] [address] [email or web address] 09/10/2025 9:00 AM EST Office Visit [facility] Gastroenterology Clinic 10 [place] [address] Unknown, Unknown, Shreyas Limon MD [address] [place] [address] 09/21/2025 2:30 PM EST Office Visit [facility] All[facility] Critical [facility] Medicine 10 [place] [address] Lester Hicks MD [address] [place] [address] 10/07/2025 7:15 AM EST Appointment [facility] 30 [place], [place] [phone] Lester Hicks MD [address] [place] [address] 10/13/2025 9:20 AM EST Office Visit [facility] [address] [place] [address] Doretha Glynn MD [address] [place] [address] [email or web address] 12/22/2025 8:30 AM EDT Office Visit [facility] [address] [place] [address] Johann Hanson CNP 22 [facility], [address] [place] [address] [email or web address] 06/30/2026 8:00 AM EDT Office Visit [facility] [address] [place] [address] Johann Hanson CNP 22 [facility], [address] [place] [address] [email or web address] documented as of this encounter Visit Diagnoses Not on filedocumented in this encounter Additional Health Concerns Infection Onset Date Last Indicated Resolved Time COVID-19 10/07/2023 10/07/2023 10/28/2023 1:21 AM EST Assessment Noted Time PHQ-2 Depression Total Score: 0 05/15/20 1:45 PM EDT documented as of this encounter Care Teams Geothermal Electrical Engineer Relationship Specialty Start Date End Date Johann Hanson CNP [address] [place] [address], [address] [place] [address] PCP - General Family Medicine 02/11/21 Lester Hicks MD [address] [place] [address] Historical LMR Provider 07/28/17 Margaux Montanez MD [address] [place] [address], [address] [place] [address] [email or web address] Historical LMR Provider 07/28/17 Khang Kilgore MD [address] [place] [address], [address] [place] [address] [email or web address] Insurance Assigned Provider 01/12/24 Luis Ignacio DO [address] [place] [address], [address] [place] [address] Cardiology 06/28/22 06/16/24 Flo Esteban MD [address] [place] [address] [email or web address] Cardiothoracic Surgery 06/28/22 06/16/24 Neisha Pinto RN [address] [place] [address] [email or web address] Lump Roller 02/26/23 06/10/25 Shreyas Wilson MD [address] [place] [address] Gastroenterology 06/17/24 Doretha Glynn MD [address] [place] [address] 3rd [place] [address] Endocrinology 06/17/24 Izzy Hackett [address] [place] [address] [email or web address] PHCM Community Fabric Worker 09/11/24 09/11/24 Radha Pereira RN [address] [place] [address] PHCM Lump RollerTool Machine Setup Operator 06/11/25 Jv Liz [address] [place] [address] Kiln Burner Helper 08/12/25 08/12/25 documented as of this encounter Additional Source Comments The information contained in this document represents components of the legal health record. It is not the complete legal health record.[facility]
--- OUTSIDE RECORDS SUMMARY | 2025-08-20 18:28 | XMS_ITS | Encounter Summary ---
Author Organization [facility] Address [address] [facility] [address] [place] [address] Phone Care Team Providers Care Envelope Sealer Name Role Phone Lester Hicks MD Unavailable [phone] Margaux Montanez MD Unavailable Johann Hanson CHASSIS DRIVER Primary Care Provider [phone] Khang Kilgore MD Unavailable Shreyas Wilson MD Unavailable [phone] Doretha Glynn MD Unavailable [phone] Radha Pereira RN Unavailable Jv Liz Unavailable Reason for Visit * Reason Onset Date Comments Lab sample 07/03/2025 Encounter Details Date Type Department Care Team (Late st Contact Info) Description 07/03/2025 Telephone [facility] [address] [place] [address] Johann Hanson, TIFFANIE [address] [facility], [address] [place] [address] [email or web address] Lab sample Social [...] high school, GED, job training, learning the [place] language, technical skills, or developing parenting skills)? [...] EDT I put a note in for vest front presser not to charge a copay. * Dolores [...] just to repeat the swab. * Joan Anguiaon - 07/03/2025 1:48 PM EDT Pt called said she received a call saying PAP sample was not a good sample. Pt said she needs a papagain. Please review this and advise pt when this should be done. Central Support Sausage Stringer (Please do not reply to this user; this inbox is not monitored.) Thank you. documented in this encounter Plan of Treatment Upcoming Encounters Date Type Department Care Team (Late st Contact Info) Description 08/24/2025 1:30 PM EST Office Visit [address] [place] [address] Johann Hanson, TIFFANIE [address] [place] [address], [address] [place] [address] [email or web address] 09/10/2025 9:00 AM EST Office Visit [facility] Gastroenterology Clinic 10 [place] [address] Unknown, Unknown, Shreyas Limon MD [address] [place] [address] 09/21/2025 2:30 PM EST Office Visit [facility] All[facility] Critical [facility] Medicine 10 [place] [address] Lester Hicks MD [address] [place] [address] 10/07/2025 7:15 AM EST Appointment [facility] [address] [place] [address] Lester Hicks MD [address] [place] [address] 10/13/2025 9:20 AM EST Office Visit [facility] [address] [place] [address] [place] [address] Doretha Glynn MD [address] [place] [address] [email or web address] 12/22/2025 8:30 AM EDT Office Visit [address] [place] [address] Johann Hanson, TIFFANIE [address] [place] [address], [address] [place] [address] [email or web address] 06/30/2026 8:00 AM EDT Office Visit [facility] [address] [place] [address] Johann Hanson CNP [address] [facility], [address] [place] [address] [email or web address] documented as of this encounter Visit Diagnoses Not on filedocumented in this encounter Additional Health Concerns Assessment Noted Time PHQ-9 Depression Total Score: 4 10/29/19 24 1:54 PM EST PHQ-2 Depression Total Score: 0 06/23/20 25 12:32 PM EDT documented as of this encounter Care Teams Envelope Sealer Relationship Specialty Start Date End Date Johann Hanson CNP [address] [facility], [address] [place] [address] PCP - General Family Medicine 02/11/21 Lester Hicks MD [address] [place] [address] Historical LMR Provider 07/28/17 Margaux Montanez MD [address] [place] [address], [address] [place] [address] Historical LMR Provider 07/28/17 Khang Kilgore MD [address] [place] [address], [address] [place] [address] Insurance Assigned Provider 01/12/24 Shreyas Wilson MD [address] [place] [address] Gastroenterology 06/17/24 Doretha Glynn MD [address] [place] [address] Endocrinology 06/17/24 Radha Pereira RN [address] [place] [address] PHCM Wood Machinist ApprenticeRigging Up Worker 06/11/25 Jv Liz [address] [place] [address] [email or web address] Meat Counter Worker 08/12/25 08/12/25 documented as of this encounter Additional Source Comments The information contained in this document represents components of the legal health record. It is not the complete legal health record.[facility]
--- OUTSIDE RECORDS SUMMARY | 2025-08-20 18:28 | XMS_ITS | Encounter Summary ---
Author Organization [facility] Address [address] [place] [address] [place] [address] Phone Care Team Providers Care Forest Fire Prevention Specialist Name Role Phone Tricia Balderas DO Unavailable Lester Hicks MD Unavailable [phone] Margaux Montanez MD Unavailable Demario Floyd MD Unavailable Pam Benson MD Unavailable [phone] Adithya Campos CNC OPERATOR MACHINIST Unavailable Beatriz Donaldson DIETARY SERVICES DIRECTOR Unavailable Beatriz Donaldson DIETARY SERVICES DIRECTOR Primary Care Provider Mamta Whitney DO Primary Care Provider [phone] Mamta Whitney DO Primary Care Provider [phone] Johann Hanson CNC OPERATOR MACHINIST Primary Care Provider [phone] Khang Kilgore MD Unavailable Luis Ignacio DO Unavailable Flo Esteban MD Unavailable [phone] Dilan Rowland MD Unavailable Corby Prado MD Unavailable [phone] Neisha Pinto RN Unavailable [email or web address] Shreyas Wilson MD Unavailable Doretha Glynn MD Unavailable [phone] Izzy Hackett Unavailable sami Radha Pereira RN Unavailable [phone] Jv Liz Unavailable Encounter Details Date Type Department Care Team (Late st Contact Info) Description 11/12/2019 Ancillary Orders Virtual Department 30 [place] [address] Beatriz Donaldson, EARL [address] [place] [address] Breast screening Social History Tobacco Use Types [...] Description 08/24/2025 1:30 PM EST Office Visit [facility] [address] [place] [address] Johann Hanson, TIFFANIE 22 [facility], [address] [place] [address] [email or web address] 09/10/2025 9:00 AM EST Office Visit [facility] 10 [place], [place] [phone] Unknown, Unknown, Shreyas Limon MD [address] [place] [address] [id number] 09/21/2025 2:30 PM EST Office Visit [facility] Pulmonary, Allergy and Critical Care Medicine [address] [place] [address] Lester Hicks MD [address] [place] [address] 10/07/2025 7:15 AM EST Appointment [facility] [address] [place] [address] Lester Hicks MD [address] [place] [address] 10/13/2025 9:20 AM EST Office Visit [facility] Endocrinology [address] [place] [address] [place] [address] Doretha Glynn MD [address] [place] [address] [email or web address] 12/22/2025 8:30 AM EDT Office Visit [address] [place] [address] Johann Hanson, CNC OPERATOR MACHINIST [address] [place] [address], [address] [place] [address] [email or web address] 06/30/2026 8:00 AM EDT Office Visit [address] [place] [address] Johann Hanson CNC OPERATOR MACHINIST [address] [place] [address], [address] [place] [address] [email or web address] documented as of this encounter [...] as of this encounter Care Teams Forest Fire Prevention Specialist Relationship Specialty Start Date End Date Beatriz Donaldson, DIETARY SERVICES DIRECTOR [address] [place] [address] PCP - General Family Medicine 10/04/17 04/11/20 Mamta Whitney DO [address] [place] [address] [email or web address] PCP - General Family Medicine 04/12/20 02/08/21 Mamta Whitney DO [address] [place] [address] [email or web address] PCP - General Family Medicine 02/10/21 02/10/21 Johann Hanson CNP 22 [facility], [address] [place] [address] [email or web address] PCP - General Family Medicine 02/11/21 Tricia Balderas DO 30 [place] [address] [email or web address] Historical LMR Provider 07/28/17 10/15/21 Lester Hicks MD [address] [place] [address] [email or web address] Historical LMR Provider 07/28/17 Margaux Montanez MD 22 [facility], [address] [place] [address] [email or web address] Historical LMR Provider 07/28/17 Demario Floyd MD [address] [place] [address] [email or web address] Historical LMR Provider 07/28/17 10/15/21 Pam Benson MD [address] [place] [address] [email or web address] Historical LMR Provider 07/28/17 10/15/21 Adithya Campos, CNC OPERATOR MACHINIST [address] [place] [address] [email or web address] Historical LMR Provider 07/28/17 12/25/21 Beatriz Donaldson, DIETARY SERVICES DIRECTOR [address] [place] [address] Historical LMR Provider 07/28/17 04/11/20 Khang Kilgore MD [address] [place] [address], [address] [place] [address] [email or web address] Insurance Assigned Provider 01/12/24 Luis Ignacio DO [address] [place] [address], [address] [place] [address] Cardiology 06/28/22 06/16/24 Flo Esteban MD [address] [place] [address] [email or web address] Cardiothoracic Surgery 06/28/22 06/16/24 Dilan Rowland MD [address] [place] [address], [address] [place] [address] Insurance Assigned Provider 07/15/22 08/13/22 Corby Prado MD [address] [place] [address], [address] [place] [address] [email or web address] Insurance Assigned Provider 08/13/22 09/16/22 Neisha Pinto RN [address] [place] [address], [address] [place] [address] [email or web address] Counter Control Operator 02/26/23 06/10/25 Shreyas Wilson MD [address] [place] [address] [email or web address] Gastroenterology 06/17/24 Doretha Glynn MD [address] [place] [address] 3rd [place] [address] [email or web address] Endocrinology 06/17/24 Izzy Hackett [address] [place] [address] [email or web address] [facility] Community Special Library Librarian 09/11/24 09/11/24 Radha Pereira, RN [address] [place] [address] [phone] [email or web address] PHCM Counter Control OperatorChain Maker 06/11/25 Jv Liz [address] [place] [address] [email or web address] Car Hostler 08/12/25 08/12/25 documented as of this encounter Additional Source Comments The information contained in this document represents components of the legal health record. It is not the complete legal health record.[facility]
--- OUTSIDE RECORDS SUMMARY | 2025-08-20 18:28 | XMS_ITS ---
Author Organization [facility] Address [address] [place] [address] [place] [address] Phone Care Team Providers Care Apiculturist Name Role Phone Lester Hicks MD Unavailable [phone] Margaux Montanez MD Unavailable Johann Hanson CNP Primary Care Provider [phone] Khang Kilgore MD Unavailable Shreyas Wilson MD Unavailable Doretha Glynn MD Unavailable [phone] Radha Pereira RN Unavailable Population Health Care Management (PHCM) Status:Enrolled (Active) Start date:10/23/2023 Enrollment date:10/23/2023 Current support & services provided:[facility] Related social drivers of health:Housing Stability, Child or Family Care, Education, Food, Unemployment, Paying for Meds, Paying Utility Bills, Transportation, Digital Access, SNAP/WIC Case Team Name Relationship Phone Email Radha Pereira RN(Responsible Staff) Registered Nurse [phone] Izzy Herbert PHCM Lead Cargoman [email or web address] Continued Care and Services Coordination
--- OUTSIDE RECORDS SUMMARY | 2025-08-20 18:28 | XMS_ITS | Encounter Summary ---
Author Organization [facility] Address [address] [place] [address] [place] [address] Phone Care Team Providers Care Cocoa Room Operator Name Role Phone Lester Hicks MD Unavailable [phone] Margaux Montanez MD Unavailable Johann Hanson CNP Primary Care Provider [phone] Khang Kilgore MD Unavailable Luis Ignacio DO Unavailable Flo Esteban MD Unavailable [phone] Dilan Rowland MD Unavailable Corby Prado MD Unavailable [phone] Neisha Pinto RN Unavailable [email or web address] Shreyas Wilson MD Unavailable Doretha Glynn MD Unavailable [phone] Izzy Hackett Unavailable [email or web address] Radha Pereira RN Unavailable Jv Liz Unavailable Encounter Details Date Type Department Care Team (Late st Contact Info) Description 02/10/2022 Procedure Pass Echo Lab [address] [place] [address] Social History Tobacco Use Types Packs/Day Years [...] high school, GED, job training, learning the Chadian language, technical skills, or developing parenting skills)? [...] EST Office Visit [facility] [place] [address] Johann Hanson, TIFFANIE 22 [facility], [address] [place] [address] [email or web address] 09/10/2025 9:00 AM EST Office Visit [facility] 10 [place] [address] Unknown, [place], Shreyas Limon MD [address] [address] 09/21/2025 2:30 PM EST Office Visit [facility] Pulmonary, Allergy and Critical Care Medicine 10 [place] [address] Lester Hicks MD [address] [place] [address] 10/07/2025 7:15 AM EST Appointment [facility] 30 [place] [address] Lester Hicks MD [address] [place] [address] 10/13/2025 9:20 AM EST Office Visit [facility]in[facility] [address] [place] [address] Doretha Glynn MD [address] [place] [address] [email or web address] 12/22/2025 8:30 AM EDT Office Visit [address] [place] [address] Johann Hanson, RUBBER COVERING MACHINE OPERATOR [address] [place] [address], [address] [place] [address] [email or web address] 06/30/2026 8:00 AM EDT Office Visit [address] [place] [address] SantJohann evans CNP 22 [facility], [address] [place] [address] [email or web address] documented as of this encounter Visit [...] documented as of this encounter Care Teams Cocoa Room Operator Relationship Specialty Start Date End Date Johann Hanson CNP [address] [place] [address], [address] [place] [address] [email or web address] PCP - General Family Medicine 02/11/21 Lester Hicks MD [address] [place] [address] [email or web address] Historical LMR Provider 07/28/17 Margaux Montanez MD [address] [place] [address], [address] [place] [address] [email or web address] Historical LMR Provider 07/28/17 Khang Kilgore MD [address] [place] [address], [address] [place] [address] Insurance Assigned Provider 01/12/24 Luis Ignacio DO [address] [place] [address], [address] [place] [address] Cardiology 06/28/22 06/16/24 Flo Esteban MD [address] [place] [address] [email or web address] Cardiothoracic Surgery 06/28/22 06/16/24 Dilan Rowland MD [address] [place] [address], [address] [place] [address] Insurance Assigned Provider 07/15/22 08/13/22 Corby Prado MD [address] [place] [address], [address] [place] [address] Insurance Assigned Provider 08/13/22 09/16/22 Neisha Pinto RN [address] [place] [address], [address] [place] [address] [email or web address] PHC Produce Team Member 02/26/23 06/10/25 Shreyas Wilson MD [address] [place] [address] Gastroenterology 06/17/24 Doretha Glynn MD [address] [place] [address] [address] [place] [address] Endocrinology 06/17/24 Izzy Hackett [address] [place] [address] [email or web address] PHCM Community Hammerer 09/11/24 09/11/24 Radha Pereira, RN 10 [place] [address] [email or web address] PHCM Produce Team MemberBuilding Construction Professor 06/11/25 Jv Liz [address] [place] [address] [email or web address] [employer] Lead 08/12/25 08/12/25 documented as of this encounter Additional Source Comments The information contained in this document represents components of the legal health record. It is not the complete legal health record.[facility]
--- OUTSIDE RECORDS SUMMARY | 2025-08-20 18:28 | XMS_ITS | Encounter Summary ---
Author Organization [facility] Address [address] [place] [address] [place] [address] Phone Care Team Providers Care Forgesmith Name Role Phone Tricia Balderas DO Unavailable Lester Hicks MD Unavailable [phone] Margaux Montanez MD Unavailable Demario Floyd MD Unavailable Pam Benson MD Unavailable [phone] Adithya Campos HVAC MAINTENANCE TECHNICIAN Unavailable Beatriz Donaldson ALMOND BLANCHER HAND Unavailable Beatriz Donaldson ALMOND BLANCHER HAND Primary Care Provider Mamta Whitney DO Primary Care Provider [phone] Mamta Whitney DO Primary Care Provider [phone] Johann Hanson HVAC MAINTENANCE TECHNICIAN Primary Care Provider [phone] Khang Kilgore MD Unavailable Luis Ignacio DO Unavailable Flo Esteban MD Unavailable [phone] Dilan Rowland MD Unavailable [phone] Corby Prado MD Unavailable [phone] Neisha Pinto RN Unavailable [email or web address] Shreyas Wilson MD Unavailable [phone] Doretha Glynn MD Unavailable [phone] Izzy Hackett Unavailable [email or web address] Radha Pereira RN Unavailable Jv Liz Unavailable Encounter Details Date Type Department Care Team (Late Contact Info) Description 05/29/2019 Telephone [facility] Pulmonary, Allergy and Critical Care Medicine [address] [place] [address] Aishwarya Vasquez MD [address] [place] [address] [phone] [email or web address] Social History Tobacco Use Types Packs/Day Years [...] Upcoming Encounters Date Type Department Care Team ([facility] Contact Info) Description 08/24/2025 1:30 PM EST Office Visit [address] [address] Johann Hanson, HVAC MAINTENANCE TECHNICIAN 22 [facility], [address] [place] [address] [email or web address] 09/10/2025 9:00 AM EST Office [facility] G[facility] [address] [place] [address] [phone] Unknown, Unknown, Shreyas Limon MD [address] [place] [address] 09/21/2025 2:30 PM EST Office Visit [facility] Pulmonary, Allergy and Critical Care Medicine 10 [facility] [place] [address] Lester Hicks MD [address] [place] [address] 10/07/2025 7:15 AM EST Appointment [facility] Lab 30 [place] [address] Lester Hicks MD [address] [place] [address] 10/13/2025 9:20 AM EST Office Visit [facility] [address] [place] [address] Doretha Glynn MD [address] [place] [address] [email or web address] 12/22/2025 8:30 AM EDT Office Visit [address] [place] [address] Johann Hanson CNP [address] [place] [address], [address] [address] [email or web address] 06/30/2026 8:00 AM EDT Office Visit [address] [place] [address] Johann Hanson HVAC MAINTENANCE TECHNICIAN [address] [place] [address], [address] [address] [email or web address] documented as of this encounter Visit Diagnoses Not on filedocumented in this encounter Additional Health Concerns Infection Onset Date Last Indicated Resolved Time CoV-Presumed 05/27/2022 05/27/2022 06/17/2022 1:21 AM EDT CoV-Presumed Comment:COVID-19 Added 10/12/2022 10/12/2022 10/13/2022 6:26 P M EST COVID-19 10/13/2022 10/13/2022 11/03/2022 1:21 AM EST COVID-19 10/07/2023 10/07/2023 10/28/2023 1:21 AM EST documented as of this encounter Care Teams Forgesmith Relationship Specialty Start Date End Date Beatriz Donaldson NP [address] [place] [address] PCP - General Family Medicine 10/04/17 04/11/20 Mamta Whitney DO [address] [place] [address] [email or web address] PCP - General Family Medicine 04/12/20 02/08/21 Mamta Whitney DO [address] [place] [address] [email or web address] PCP - General Family Medicine 02/10/21 02/10/21 Johann Hanson CNP 22 [facility] [place] [address] [email or web address] PCP - General Family Medicine 02/11/21 Tricia Balderas DO [address] [place] [address] [email or web address] Historical LMR Provider 07/28/17 10/15/21 Lester Hicks MD [address] [place] [address] [email or web address] Historical LMR Provider 07/28/17 Margaux Montanez MD [address] [place] [address], [address] [place] [address] [email or web address] Historical LMR Provider 07/28/17 Demario Floyd MD [address] [place] [address] [email or web address] Historical LMR Provider 07/28/17 10/15/21 Pam Benson MD [address] [place] [address] [email or web address] Historical LMR Provider 07/28/17 10/15/21 Adithya Campos, HVAC MAINTENANCE TECHNICIAN [address] [place] [address] [email or web address] Historical LMR Provider 07/28/17 12/25/21 Beatriz Donaldson, ALMOND BLANCHER HAND [address] [place] [address] Historical LMR Provider 07/28/17 04/11/20 Khang Kilgore MD [address] [place] [address] [address] [place] [address] [email or web address] Insurance Assigned Provider 01/12/24 Luis Ignacio DO [address] [place] [address], [address] [place] [address] Cardiology 06/28/22 06/16/24 Flo Esteban MD [address] [place] [address] [place] [address] [email or web address] Cardiothoracic Surgery 06/28/22 06/16/24 Dilan Rowland MD [address] [place] [address], [address] [place] [address] [email or web address] Insurance Assigned Provider 07/15/22 08/13/22 Corby Prado MD [address] [place] [address], [address] [place] [address] Insurance Assigned Provider 08/13/22 09/16/22 Neisha Pinto RN [address] [place] [address], [address] [place] [address] [email or web address] Return To Vendor 02/26/23 06/10/25 Shreyas Wilson MD [address] [place] [address] Gastroenterology 06/17/24 Doretha Glynn MD [address] [place] [address] 3rd [place] [address] [email or web address] Endocrinology 06/17/24 Izzy Hackett [address] [place] [address] [email or web address] PHC Community Dead Mail Checker 09/11/24 09/11/24 Radha Pereira RN [address] [place] [address] [email or web address] PHCM Return To VendorShoe Repairer Helper 06/11/25 Jv Liz [address] [place] [address] [email or web address] U[employer] Lead 08/12/25 08/12/25 documented as of this encounter Additional Source Comments The information contained in this document represents components of the legal health record. It is not the complete legal health record.[facility]
--- OUTSIDE RECORDS SUMMARY | 2025-08-20 18:28 | XMS_ITS | Encounter Summary ---
Author Organization [facility] Address [address] [place] [address] [place] [address] Phone Care Team Providers Care Director [employer] Name Role Phone Tricia Balderas DO Unavailable Lester Hicks MD Unavailable [phone] Margaux Montanez MD Unavailable Demario Floyd MD Unavailable Pam Benson MD Unavailable [phone] Adithya Campos SODIUM METHYLATE OPERATOR Unavailable Beatriz Donaldson WHEEL LOADER OPERATOR Unavailable Beatriz Donaldson WHEEL LOADER OPERATOR Primary Care Provider Mamta Whitney DO Primary Care Provider [phone] Mamta Whitney DO Primary Care Provider [phone] Johann Hanson SODIUM METHYLATE OPERATOR Primary Care Provider [phone] Khang Kilgore MD Unavailable Luis Ignacio DO Unavailable Flo Esteban MD Unavailable [phone] Dilan Rowland MD Unavailable [phone] Corby Prado MD Unavailable [phone] Neisha Pinto RN Unavailable [email or web address] Shreyas Wilson MD Unavailable [phone] Doretha Glynn MD Unavailable [phone] Izzy Hackett Unavailable sami Radha Pereira RN Unavailable [phone] Jv Liz Unavailable Encounter Details Date Type Department Care Team (Late st Contact Info) Description 01/10/2019 Procedure Pass [facility] Cardiovascular And Interventional Radiology 30 [place] [address] Social History Tobacco Use Types Packs/Day Years [...] Description 08/24/2025 1:30 PM EST Office Visit [address] [address] Johann Hanson, SODIUM METHYLATE OPERATOR [address] [place] [address], [address] [place] [address] [email or web address] 09/10/2025 9:00 AM EST Office Visit [facility] 10 [place], [place] [phone] Unknown, Unknown, Shreyas iLmon MD [address] [place] [address] [phone] 09/21/2025 2:30 PM EST Office Visit [facility] Pulmonary, Allergy and Critical Care Medicine 10 [place] [address] Lester Hicks MD [address] [place] [address] 10/07/2025 7:15 AM EST Appointment [facility] PFT Lab 30 [place] [address] Lester Hicks MD [address] [place] [address] 10/13/2025 9:20 AM EST Office Visit [facility] Endocrinology [address] [place] [address] Doretha Glynn MD [address] [place] [address] [email or web address] 12/22/2025 8:30 AM EDT Office Visit [address] [place] [address] Johann Hanson, SODIUM METHYLATE OPERATOR [address] [place] [address], [address] [place] [address] [email or web address] 06/30/2026 8:00 AM EDT Office Visit [address] [place] [address] Johann Hanson, SODIUM METHYLATE OPERATOR [address] [place] [address], [address] [place] [address] [email or web address] documented as of this encounter [...] as of this encounter Care Teams Director [employer] Relationship Specialty Start Date End Date Beartiz Donaldson, EARL [address] [place] [address] PCP - General Family Medicine 10/04/17 04/11/20 Mamta Whitney DO [address] [place] [address] [email or web address] PCP - General Family Medicine 04/12/20 02/08/21 Mamta Whitney DO [address] [place] [address] [email or web address] PCP - General Family Medicine 02/10/21 02/10/21 Johann Hanson CNP [address] [facility] [place] [address] [email or web address] PCP - General Family Medicine 02/11/21 Tricia Balderas DO [address] [place] [address] [email or web address] Historical LMR Provider 07/28/17 10/15/21 Lester Hicks MD [address] [place] [address] [email or web address] Historical LMR Provider 07/28/17 KlMargaux Parish MD [address] [place] [address], [address] [place] [address] [email or web address] Historical LMR Provider 07/28/17 Demario Floyd MD [address] [place] [address] [email or web address] Historical LMR Provider 07/28/17 10/15/21 Pam Benson MD [address] [place] [address] [email or web address] Historical LMR Provider 07/28/17 10/15/21 Adithya Campos CNP [address] [place] [address] [email or web address] Historical LMR Provider 07/28/17 12/25/21 Beatriz Donaldson NP [address] [place] [address] Historical LMR Provider 07/28/17 04/11/20 Khang Kilgore MD [address] [place] [address], [address] [place] [address] [email or web address] Insurance Assigned Provider 01/12/24 Luis Ignacio DO [address] [place] [address], [address] [place] [address] Cardiology 06/28/22 06/16/24 Flo Esteban MD [address] [place], [place] [address] [place] [address] [email or web address] Cardiothoracic Surgery 06/28/22 06/16/24 Dilan Rowland MD [address] [place] [address], [address] [place] [address] [email or web address] Insurance Assigned Provider 07/15/22 08/13/22 Corby Prado MD [address] [place] [address], [address] [place] [address] [email or web address] Insurance Assigned Provider 08/13/22 09/16/22 Neisha Pinto RN [address] [place] [address], [address] [place] [address] [email or web address] PHCM Welcome Wagon Hostess 02/26/23 06/10/25 Shreyas Wilson MD [address] [place] [address] [email or web address] Gastroenterology 06/17/24 Doretha Glynn MD [address] [place] [address] 3rd [place] [address] Endocrinology 06/17/24 Izzy Hackett [address] [place] [address] [email or web address] PHC Community Leaf Blender 09/11/24 09/11/24 Radha Pereira, RN [address] [place] [address] [email or web address] PHCM Welcome Wagon HostessMissile And Missile Checkout Technician 06/11/25 Jv Liz [address] [place] [address] (work) [email or web address] Big Data Platform Architect 08/12/25 08/12/25 documented as of this encounter Additional Source Comments The information contained in this document represents components of the legal health record. It is not the complete legal health record.[facility]
--- OUTSIDE RECORDS SUMMARY | 2025-08-20 18:28 | XMS_ITS | Encounter Summary ---
Author Organization [facility] Address [address] [place] [address] Phone Care Team Providers Care Steel Construction Worker Name Role Phone Lester Hicks MD Unavailable [phone] Margaux Montanez MD Unavailable Johann Hanson CNP Primary Care Provider [phone] Khang Kilgore MD Unavailable Luis Ignacio DO Unavailable Flo Esteban MD Unavailable [phone] Neisha Pinto RN Unavailable [email or web address] Shreyas Wilson MD Unavailable [phone] Doretha Glynn MD Unavailable Izzy Hackett Unavailable [email or web address] Radha Pereira RN Unavailable Jv Liz Unavailable Encounter Details Date Type Department Care Team (Late st Contact Info) Description 12/07/2022 Procedure Pass [facility] Echo Lab 30 [place], [place] [id number] Social History Tobacco Use Types Packs/Day Years [...] high school, GED, job training, learning the Bulgarian language, technical skills, or developing parenting skills)? [...] 12/07/2022 9:18 AM Alise Hamilton, RN * [place] Suicide Severity Rating Scale (Screener/Recent Self-Report) Question [...] Description 08/24/2025 1:30 PM EST Office Visit [facility] Medicine [address] [place] [address] Johann Hanson, NURSING EDUCATION SPECIALIST [address] [facility], [address] [place] [address] [email or web address] 09/10/2025 9:00 AM EST Office Visit [facility] Gastroenterology Clinic 10 [place] [address] Unknown, Unknown, Shreyas Limon MD [address] [place] [address] 09/21/2025 2:30 PM EST Office Visit [facility] Pulmonary, Allergy and Critical Care Medicine 10 [place] [address] Lester Hicks MD [address] [place] [address] 10/07/2025 7:15 AM EST Appointment [facility] PFT Lab 30 [place], [place] 0[address] Lester Hicks MD [address] [place] [address] 10/13/2025 9:20 AM EST Office Visit [facility] End[facility]inology [address] [place] [address] Doretha Glynn MD [address] [place] [address] [email or web address] 12/22/2025 8:30 AM EDT Office Visit [facility] [address] [place] [address] Johann Hanson CNP [address] [facility], [address] [place] [address] [email or web address] 06/30/2026 8:00 AM EDT Office Visit [facility] [address] [place] [address] Johann Hanson CNP [address] [facility], [address] [place] [address] [email or web address] documented as of this encounter Visit Diagnoses Not on filedocumented in this encounter Additional Health Concerns Infection Onset Date Last Indicated Resolved Time COVID-19 10/07/2023 10/07/2023 10/28/2023 1:21 AM EST Assessment Noted Time PHQ-2 Depression Total Score: 0 05/15/20 22 1:45 PM EDT documented as of this encounter Care Teams Steel Construction Worker Relationship Specialty Start Date End Date Johann Hanson CNP [address] [place] [address], [address] [place] [address] PCP - General Family Medicine 02/11/21 Lester Hicks MD [address] [place] [address] Historical LMR Provider 07/28/17 Margaux Montanez MD [address] [place] [address], [address] [place] [address] [email or web address] Historical LMR Provider 07/28/17 Khang Kilgore MD [address] [place] [address], [address] [place] [address] [email or web address] Insurance Assigned Provider 01/12/24 Luis Ignacio DO [address] [place] [address], [address] [place] [address] Cardiology 06/28/22 06/16/24 Flo Esteban MD [address] [place] [address] [email or web address] Cardiothoracic Surgery 06/28/22 06/16/24 Neisha Pinto RN [address] [place] [address] [email or web address] PHCM Job Order Clerk 02/26/23 06/10/25 Shreyas Wilson MD [address] [place] [address] Gastroenterology 06/17/24 Doretha Glynn MD [address] [place] [address] 3rd [place] [address] Endocrinology 06/17/24 Izzy Hackett [address] [place] [address] [email or web address] PHCM Community Fish Pitcher 09/11/24 09/11/24 Radha Pereira, RANDI [address] [place] [address] PHCM Job Order ClerkApplication Release Manager 06/11/25 Jv Liz [address] [place] [address] Customs And Border Protection Officer 08/12/25 08/12/25 documented as of this encounter Additional Source Comments The information contained in this document represents components of the legal health record. It is not the complete legal health record.[facility]
--- OUTSIDE RECORDS SUMMARY | 2025-08-20 18:28 | XMS_ITS | Encounter Summary ---
Author Organization [facility] Address [address] [place] [address] Phone Care Team Providers Care Criminal Records Technician Name Role Phone Beatriz Donaldson MANAGER UTILIZATION Primary Care Provider [phone] Tricia Balderas DO Unavailable [phone] Lester Hicks MD Unavailable [phone] Margaux Montanez MD Unavailable [phone] Demario Floyd MD Unavailable Pam Benson MD Unavailable [phone] Adithya Campos DATA STORAGE SPECIALIST Unavailable [phone] Beatriz Donaldson MANAGER UTILIZATION Unavailable [phone] Beatriz Donaldson MANAGER UTILIZATION Primary Care Provider [phone] Mamta Whitney DO Primary Care Provider [phone] Mamta Whitney DO Primary Care Provider [phone] Johann Hanson DATA STORAGE SPECIALIST Primary Care Provider [phone] Khang Kilgore MD Unavailable Luis Ignacio DO Unavailable Flo Esteban MD Unavailable [phone] Dilan Rowland MD Unavailable [phone] Corby Prado MD Unavailable [phone] Neisha Pinto RN Unavailable [email or web address] Shreyas Wilson MD Unavailable [phone] Doretha Glynn MD Unavailable [phone] Izzy Hackett Unavailable sami Radha Pereira RN Unavailable Jv Liz Unavailable Encounter Details Date Type Department Care Team (Late st Contact Info) Description 09/03/2017 Ancillary Orders [facility] External Provider Virtual Department 30 [place] [address] Beatriz Donaldson, MANAGER UTILIZATION [address] [place] [address] Breast screening Social History Tobacco Use Types [...] Description 08/24/2025 1:30 PM EST Office Visit [facility] [address] [place] [address] Johann Hanson, TIFFANIE [address] [facility] [place] [address] [email or web address] 09/10/2025 9:00 AM EST Office Visit [facility] 10 [place], [place] [phone] Unknown, Unknown, Shreyas Limon MD [address] [place] [address] [phone] 09/21/2025 2:30 PM EST Office Visit [facility] Pulmonary, Allergy and Critical Care Medicine 10 [place] [address] Lester Hicks MD [address] [place] [address] 10/07/2025 7:15 AM EST Appointment [facility] PFT Lab [address] [place] [address] Lester Hciks MD [address] [place] [address] 10/13/2025 9:20 AM EST Office Visit [facility] End[facility]inology [address] [place] [address] [place] [address] Doretha Glynn MD [address] [place] [address] [email or web address] 12/22/2025 8:30 AM EDT Office Visit [address] [place] [address] Johann Hanson, DATA STORAGE SPECIALIST [address] [place] [address], [address] [place] [address] [email or web address] 06/30/2026 8:00 AM EDT Office Visit [address] [place] [address] Johann Hanson, DATA STORAGE SPECIALIST [address] [place] [address], [address] [place] [address] [email or web address] documented as of this encounter [...] There are scattered fibroglandular densities. POS - [id number] Narrative 08/12/2018 12:17 PM EST Full-field digital [...] There are scattered fibroglandular densities. POS - [id number] Beatriz Donaldson MANAGER UTILIZATION IMG MG EXAMS Final Result documented in [...] documented as of this encounter Care Teams Criminal Records Technician Relationship Specialty Start Date End Date Beatriz Donaldson NP PCP - General 07/26/17 10/03/17 Beatriz Donaldson MANAGER UTILIZATION PCP - General Family Medicine 10/04/17 04/11/20 Mamta Whitney DO [address] [place] [address] [email or web address] PCP - General Family Medicine 04/12/20 02/08/21 Mamta Whitney DO [address] [place] [address] [email or web address] PCP - General Family Medicine 02/10/21 02/10/21 Johann Hanson CNP [address] [facility] [place] [address] [email or web address] PCP - General Family Medicine 02/11/21 Tricia Balderas DO 30 [place] [address] [email or web address] Historical LMR Provider 07/28/17 10/15/21 Lester Hicks MD [address] [place] [address] [email or web address] Historical LMR Provider 07/28/17 Margaux Montanez MD [address] [place] [address], [address] [place] [address] [email or web address] Historical LMR Provider 07/28/17 Demario Floyd MD [address] [place] [address] [email or web address] Historical LMR Provider 07/28/17 10/15/21 Pam Benson MD [address] [place] [address] [email or web address] Historical LMR Provider 07/28/17 10/15/21 Adithya Campos, DATA STORAGE SPECIALIST [address] [place] [address] [email or web address] Historical LMR Provider 07/28/17 12/25/21 Beatriz Donaldson, MANAGER UTILIZATION [address] [place] [address] Historical LMR Provider 07/28/17 04/11/20 Khang Kilgore MD [address] [place] [address], [address] [place] [address] Insurance Assigned Provider 01/12/24 Luis Ignacio DO [address] [place] [address], [address] [place] [address] Cardiology 06/28/22 06/16/24 Flo Esteban MD [address] [place] [address] [place] [address] [email or web address] Cardiothoracic Surgery 06/28/22 06/16/24 Dilan Rowland MD [address] [place] [address], [address] [place] [address] [email or web address] Insurance Assigned Provider 07/15/22 08/13/22 Corby Prado MD [address] [place] [address], [address] [place] [address] [email or web address] Insurance Assigned Provider 08/13/22 09/16/22 Neisha Pinto, RANDI [address] [place] [address], [address] [place] [address] [email or web address] Chain Puller 02/26/23 06/10/25 Shreyas Wilson MD [address] [place] [address] Gastroenterology 06/17/24 Doretha Glynn MD [address] [place] [address] [address] [place] [address] Endocrinology 06/17/24 Izzy Hackett [address] [place] [address] [email or web address] PHCM Community Teacher Of Family And Consumer Science 09/11/24 09/11/24 Radha Pereira, RN [address] [place] [address] [email or web address] PHCM Chain PullerService Mechanic 06/11/25 Jv Liz [address] [place] [address] [email or web address] Rubber Roller Grinder Operator 08/12/25 08/12/25 documented as of this encounter Additional Source Comments The information contained in this document represents components of the legal health record. It is not the complete legal health record.[facility]
--- OUTSIDE RECORDS SUMMARY | 2025-08-20 18:28 | XMS_ITS | Encounter Summary ---
Author Organization [facility] Address [address] [facility] [address] [place] [address] Phone Care Team Providers Care Client Solutions Manager Name Role Phone Lester Hicks MD Unavailable [phone] Margaux Montanez MD Unavailable Johann Hanson QUALITY SYSTEMS SPECIALIST Primary Care Provider [phone] Khang Kilgore MD Unavailable Shreyas Wilson MD Unavailable [phone] Doretha Glynn MD Unavailable [phone] Radha Pereira RN Unavailable Jv Liz Unavailable Encounter Details Date Type Department Care Team (Late st Contact Info) Description 07/23/2025 [facility] [address] [place] [address] Johann Hanson, QUALITY SYSTEMS SPECIALIST [address] [facility] [place], [place] [address] [email or web address] Essential hypertension; Encounter for medication [...] Description 08/24/2025 1:30 PM EST Office Visit [address] [place] [address] Johann Hanson, QUALITY SYSTEMS SPECIALIST [address] [facility] [place] [address] [email or web address] 09/10/2025 9:00 AM EST Office Visit [facility] G[facility]ology Clinic [address] [place] [address] Unknown, Unknown, Shreyas Limon MD [address] [place] [address] 09/21/2025 2:30 PM EST Office Visit [facility] Pulmonary, Allergy and Critical Care Medicine 10 [place] [address] Lester Hicks MD [address] [place] [address] 10/07/2025 7:15 AM EST Appointment [facility] PFT Lab 30 [place] [address] Lester Hicks MD [address] [place] [address] 10/13/2025 9:20 AM EST Office Visit [facility] [address] [place] [address] Doretha Glynn MD [address] [place] [address] [email or web address] 12/22/2025 8:30 AM EDT Office Visit [address] [place] [address] Johann Hanson CNP [address] [place] [address], [address] [place] [address] [email or web address] 06/30/2026 8:00 AM EDT Office Visit [address] [place] [address] Johann Hanson CNP [address] [place] [address], [address] [place] [address] [email or web address] documented as of this encounter Visit Diagnoses Diagnosis Essential hypertension Unspecified essential hypertension Encounter for medication monitoring Encounter for therapeutic drug monitoring documented in this encounter Additional Health Concerns Assessment Noted Time PHQ-9 Depression Total Score: 4 10/29/19 24 1:54 PM EST PHQ-2 Depression Total Score: 0 06/23/20 25 12:32 PM EDT documented as of this encounter Care Teams Client Solutions Manager Relationship Specialty Start Date End Date Johann Hanson CNP [address] [place] [address], [address] [place] [address] [email or web address] PCP - General Family Medicine 02/11/21 Lester Hicks MD [address] [place] [address] [email or web address] Historical LMR Provider 07/28/17 Margaux Montanez MD [address] [place] [address], [address] [place] [address] [email or web address] Historical LMR Provider 07/28/17 Khang Kilgore MD [address] [facility] [place] [address] Insurance Assigned Provider 01/12/24 Shreyas Wilson MD [address] [place] [address] Gastroenterology 06/17/24 Doretha Glynn MD [address] [place] [address] 3rd [place] [address] Endocrinology 06/17/24 Radha Pereira, RN 10 [place] [address] [email or web address] PHCM Employee Welfare ManagerHome Performance Consultant 06/11/25 Jv Liz [address] [place] [address] Internet Merchant 08/12/25 08/12/25 documented as of this encounter Additional Source Comments The information contained in this document represents components of the legal health record. It is not the complete legal health record.[facility]
--- OUTSIDE RECORDS SUMMARY | 2025-08-20 18:28 | XMS_ITS | Encounter Summary ---
Author Organization [facility] Address [address] [place] [address] [place] [address] Phone Care Team Providers Care Liquor Rectifier Name Role Phone Lester Hicks MD Unavailable [phone] Margaux Montanez MD Unavailable [phone] Johann Hanson CNP Primary Care Provider [phone] Khang Kilgore MD Unavailable [phone] Luis Ignacio DO Unavailable Flo Esteban MD Unavailable [phone] Neisha Pinto RN Unavailable [email or web address] Shreyas Wilson MD Unavailable [phone] Doretha Glynn MD Unavailable [phone] Izzy Hackett Unavailable [email or web address] Radha Pereira RN Unavailable [phone] Jv Liz Unavailable Encounter Details Date Type Department Care Team (Latest Contact Info) Description 09/07/2023 Transcribe Orders [facility] Department [address] [place], [place] [id number] Shreyas Wilson MD [address] [place] [address] [id number] [email or web address] Gastroesophageal reflux disease, unspecified whether [...] EST Office Visit [facility] Medicine 22 [place] [address] Johann Hanson, DRAW FIRE OPERATOR 22 [facility], [address] [place] [address] [email or web address] 09/10/2025 9:00 AM EST Office Visit [facility] [address] [place] [address] Unknown, Unknown, Shreyas Limon MD [address] [place] [address] 09/21/2025 2:30 PM EST Office Visit [facility] Medicine 10 [place] [address] Lester Hicks MD [address] [place] [address] 10/07/2025 7:15 AM EST Appointment [facility] 30 [place] [address] Lester Hicks MD [address] [place] [address] 10/13/2025 9:20 AM EST Office Visit [facility]ology [address] [place] [address] Doretha Glynn MD [address] [place] [address] [email or web address] 12/22/2025 8:30 AM EDT Office Visit [address] [place] [address] Johann Hanson CNP [address] [place] [address], [address] [place] [address] [email or web address] 06/30/2026 8:00 AM EDT Office Visit [address] [place] [address] Johann Hanson CNP [address] [place] [address], [address] [place] [address] [email or web address] documented as of this encounter [...] documented as of this encounter Care Teams Liquor Rectifier Relationship Specialty Start Date End Date Johann Hanson CNP [address] [place] [address], [address] [place] [address] PCP - General Family Medicine 02/11/21 Lester Hicks MD [address] [place] [address] Historical LMR Provider 07/28/17 Margaux Montanez MD [address] [place] [address] [address] [place] [address] [email or web address] Historical LMR Provider 07/28/17 Khang Kilgore MD [address] [place] [address], [address] [place] [address] Insurance Assigned Provider 01/12/24 Luis Ignacio DO [address] [place] [address], [address] [place] [address] Cardiology 06/28/22 06/16/24 Flo Esteban MD [address] [place] [address] [email or web address] Cardiothoracic Surgery 06/28/22 06/16/24 Neisha Pinto RN [address] [place] [address] [email or web address] PHCM Content Assistant 02/26/23 06/10/25 Shreyas Wilson MD [address] [place] [address] Gastroenterology 06/17/24 Doretha Glynn MD [address] [place] [address] 3rd [place] [address] Endocrinology 06/17/24 Izzy Hackett [address] [place] [address] [email or web address] PHCM Community Sash Repairer 09/11/24 09/11/24 Radha Pereira RN 10 [place] [address] [email or web address] PHCM Content AssistantBelt Tender 06/11/25 Jv Liz [address] [place] [address] [email or web address] Chief Human Resources Officer 08/12/25 08/12/25 documented as of this encounter Additional Source Comments The information contained in this document represents components of the legal health record. It is not the complete legal health record.[facility]
--- OUTSIDE RECORDS SUMMARY | 2025-08-20 18:28 | XMS_ITS | Encounter Summary ---
Author Organization [facility] Address [address] [place] [address] Phone Care Team Providers Care Rn Gastroenterology Name Role Phone Tricia Balderas DO Unavailable Lester Hicks MD Unavailable [phone] Margaux Montanez MD Unavailable Demario Floyd MD Unavailable Pam Benson MD Unavailable Adithya Campos RUBBER GOODS FINISHER Unavailable Johann Hanson RUBBER GOODS FINISHER Primary Care Provider [phone] Khang Kilgore MD Unavailable Luis Ignacio DO Unavailable Flo Esteban MD Unavailable [phone] Dilan Rowland MD Unavailable [phone] Corby Prado MD Unavailable [phone] Neisha Pinto RN Unavailable [email or web address] Shreyas Wilson MD Unavailable Doretha Glynn MD Unavailable Izzy Hackett Unavailable sami Radha Pereira RN Unavailable JoJv hernandez Unavailable Encounter Details Date Type Department Care Team ([facility] Contact Info) Description 02/22/2021 Procedure [facility], [address] [address] Social History Tobacco Use Types Packs/Day Years [...] high school, GED, job training, learning the Mongolian language, technical skills, or developing parenting skills)? [...] Upcoming Encounters Date Type Department Care Team ([facility] Contact Info) Description 08/24/2025 1:30 PM EST Office Visit [address] [place] [address] Johann Hanson, RUBBER GOODS FINISHER 22 [facility], [address] [place] [address] [email or web address] 09/10/2025 9:00 AM EST Office Visit [facility] Gastroenterology Clinic 10 [place] [address] Unknown, Unknown, Shreyas Limon MD [address] [address] 09/21/2025 2:30 PM EST Office Visit [facility] Medicine 10 [place] [address] Lester Hicks MD [address] [place] [address] 10/07/2025 7:15 AM EST Appointment [facility] [address] [place] [address] Lester Hicks MD [address] [place] [address] 10/13/2025 9:20 AM EST Office Visit [facility] [address] [place] [address] Doretha Glynn MD [address] [place] [address] [email or web address] 12/22/2025 8:30 AM EDT Office Visit [address] [place] [address] Johann Hanson, RUBBER GOODS FINISHER [address] [place] [address], [address] [place] [address] [email or web address] 06/30/2026 8:00 AM EDT Office Visit [facility] 22 [place] [address] Johann Hanson CNP 22 [facility], [address] [place] [address] [email or web address] documented as of this encounter [...] documented as of this encounter Care Teams Rn Gastroenterology Relationship Specialty Start Date End Date Johann Hanson CNP 22 [facility], [address] [place] [address] PCP - General Family Medicine 02/11/21 Tricia Balderas DO 30 [place] [address] [email or web address] Historical LMR Provider 07/28/17 10/15/21 Lester Hicks MD [address] [place] [address] [email or web address] Historical LMR Provider 07/28/17 Margaux Montanez MD [address] [place] [address], [address] [place] [address] [email or web address] Historical LMR Provider 07/28/17 Demario Floyd MD [address] [place] [address] [email or web address] Historical LMR Provider 07/28/17 2 Pam Benson MD [address] [place] [address], [address] [place] [address] [email or web address] Historical LMR Provider 07/28/17 Adithya Campos CNP [address] [place] [address], [address] [place] [address] [email or web address] Historical LMR Provider 07/28/17 12/25/21 Khang Kilgore MD [address] [place] [address], [address] [place] [address] [email or web address] Insurance Assigned Provider 01/12/24 Luis Ignacio DO [address] [place] [address], [address] [place] [address] Cardiology 06/28/22 06/16/24 Flo Esteban MD [address] [place] [address] [place] [address] [email or web address] Cardiothoracic Surgery 06/28/22 06/16/24 Dilan Rowland MD [address] [place] [address], [address] [place] [address] Insurance Assigned Provider 07/15/22 08/13/22 Corby Prado MD [address] [place] [address], [address] [place] [address] [email or web address] Insurance Assigned Provider 08/13/22 09/16/22 Neisha Pinto RN [address] [place] [address], [address] [place] [address] [email or web address] PHCM Global Marketing Manager 02/26/23 06/10/25 Shreyas Wilson MD [address] [place] [address] Gastroenterology 06/17/24 Doretha Glynn MD [address] [place] [address] 3[address] [place] [address] Endocrinology 06/17/24 Izzy Hackett [address] [place] [address] [email or web address] PHC Community Business Partner 09/11/24 09/11/24 Radha Pereira, RN [address] [place] [address] PHCM Global Marketing ManagerWeight Reduction Specialist 06/11/25 Jv Liz [address] [place] [address] Jacquard Lace Weaver 08/12/25 08/12/25 documented as of this encounter Additional Source Comments The information contained in this document represents components of the legal health record. It is not the complete legal health record.[facility]
--- OUTSIDE RECORDS SUMMARY | 2025-08-20 18:28 | XMS_ITS | Encounter Summary ---
Author Organization [facility] Address [address] [facility] [address] [place] [address] Phone Care Team Providers Care Litigation Services Manager Name Role Phone Lester Hicks MD Unavailable [phone] Margaux Montanez MD Unavailable Johann Hanson BIOMETRIC FINGERPRINTING TECHNICIAN Primary Care Provider [phone] Khang Kilgore MD Unavailable Shreyas Wilson MD Unavailable [phone] Doretha Glynn MD Unavailable [phone] Radha Pereira RN Unavailable [phone] Jv Liz Unavailable Encounter Details Date Type Department Care Team (Late st Contact Info) Description 07/24/2025 [facility] [address] [place] [address] Johann Hanson, BIOMETRIC FINGERPRINTING TECHNICIAN 22 [facility], [address] [place], [place] [phone] Social History Tobacco Use Types Packs/Day Years [...] Description 08/24/2025 1:30 PM EST Office Visit [facility] [address] [place] [address] Johann Hanson, BIOMETRIC FINGERPRINTING TECHNICIAN 22 [facility], [address] [place] [address] [email or web address] 09/10/2025 9:00 AM EST Office Visit [facility] Gastro[facility]ology Clinic [address] [place] [address] Unknown, Unknown, Shreyas Limon MD [address] [place] [address] 09/21/2025 2:30 PM EST Office Visit [facility] Medicine 10 [place] [address] Lester Hicks MD [address] [place] [address] 10/07/2025 7:15 AM EST Appointment [facility] 30 [place] [address] Lester Hicks MD [address] [place] [address] 10/13/2025 9:20 AM EST Office Visit [facility] [address] [place] [address] Doretha Glynn MD [address] [place] [address] 3[address] [place] [address] [email or web address] 12/22/2025 8:30 AM EDT Office Visit [address] [place] [address] Johann Hanson CNP [address] [place] [address], [address] [place] [address] [email or web address] 06/30/2026 8:00 AM EDT Office Visit [address] [place] [address] Johann Hanson CNP [address] [place] [address], [address] [place] [address] [email or web address] documented as of this encounter [...] documented as of this encounter Care Teams Litigation Services Manager Relationship Specialty Start Date End Date Johann Hanson CNP [address] [place] [address], [address] [place] [address] PCP - General Family Medicine 02/11/21 Lester Hicks MD [address] [place] [address] Historical LMR Provider 07/28/17 Margaux Montanez MD [address] [place] [address], [address] [place] [address] Historical LMR Provider 07/28/17 Khang Kilgore MD [address] [place] [address], [address] [place] [address] Insurance Assigned Provider 01/12/24 Shreyas Wilson MD [address] [place] [address] Gastroenterology 06/17/24 Doretha Glynn MD [address] [place] [address] Endocrinology 06/17/24 Radha Pereira, RN [address] [place] [address] PHCM Seal MixerOracle Fusion Middleware Architect 06/11/25 Jv Liz [address] [place] [address] Industrial Illuminating Engineer 08/12/25 08/12/25 documented as of this encounter Additional Source Comments The information contained in this document represents components of the legal health record. It is not the complete legal health record.[facility]
--- OUTSIDE RECORDS SUMMARY | 2025-08-20 18:28 | XMS_ITS | Encounter Summary ---
Author Organization [facility] Address [address] [place] [address] [place] [address] Phone Care Team Providers Care Supervisor Drying And Softening Name Role Phone Tricia Balderas DO Unavailable Lester Hicks MD Unavailable Margaux Montanez MD Unavailable Demario Floyd MD Unavailable Pam Benson MD Unavailable [phone] Adithya Campos PATENT LAW SPECIALIST Unavailable Beatriz Donaldson CARDIOLOGY TECHNOLOGIST Unavailable Beatriz Donaldson CARDIOLOGY TECHNOLOGIST Primary Care Provider Mamta Whitney DO Primary Care Provider [phone] Mamta Whitney DO Primary Care Provider [phone] Johann Hanson PATENT LAW SPECIALIST Primary Care Provider [phone] Khang Kilgore MD Unavailable Luis Ignacio DO Unavailable Flo Esteban MD Unavailable [phone] Dilan Rowland MD Unavailable [phone] Corby Prado MD Unavailable Neisha Pinto RN Unavailable [email or web address] Shreyas Wilson MD Unavailable [phone] Doretha Glynn MD Unavailable [phone] Izzy Hackett Unavailable [email or web address] Radha Pereira RN Unavailable Jv Liz Unavailable Encounter Details Date Type Department Care Team (Late st Contact Info) Description 05/20/2018 Ancillary Orders Virtual Department [address] [place] [address] Beatriz Donaldson, CARDIOLOGY TECHNOLOGIST [address] [place] [address] Lymphadenopathy; Generalized enlarged lymph nodes Social History [...] 1:30 PM EST Office Visit [facility] [address] [place] [address] Johann Hanson, TIFFANIE 22 [facility], [address] [place] [address] [email or web address] 09/10/2025 9:00 AM EST Office Visit [facility] G[facility]ology [facility] [address] [place] [address] [phone] Unknown, Unknown, Shreyas Limon MD [address] [place] [address] 09/21/2025 2:30 PM EST Office Visit [facility] Medicine 10 [place] [address] Lester Hicks MD [address] [place] [address] 10/07/2025 7:15 AM EST Appointment [facility] 30 [place] [address] Lester Hicks MD [address] [place] [address] 10/13/2025 9:20 AM EST Office Visit [facility] [address] [place] [address] Doretha Glynn MD [address] [place] [address] [email or web address] 12/22/2025 8:30 AM EDT Office Visit [address] [place] [address] Johann Hanson, PATENT LAW SPECIALIST [address] [place] [address], [address] [address] [email or web address] 06/30/2026 8:00 AM EDT Office Visit [address] [place] [address] Johann Hanson, PATENT LAW SPECIALIST [address] [place] [address], [address] [address] [email or web address] documented as of this encounter [...] as of this encounter Care Teams Supervisor Drying And Softening Relationship Specialty Start Date End Date Beatriz Donaldson NP [address] [place] [address] PCP - General Family Medicine 10/04/17 04/11/20 Mamta Whitney DO [address] [place] [address] [email or web address] PCP - General Family Medicine 04/12/20 02/08/21 Mamta Whitney DO [address] [place] [address] [email or web address] PCP - General Family Medicine 02/10/21 02/10/21 Johann Hanson CNP [address] [facility] [place] [address] [email or web address] PCP - General Family Medicine 02/11/21 Tricia Balderas DO [address] [place] [address] [email or web address] Historical LMR Provider 07/28/17 10/15/21 Lester Hicks MD [address] [place] [address] [email or web address] Historical LMR Provider 07/28/17 Margaux Montanez MD [address] [place] [address], [address] [place] [address] [email or web address] Historical LMR Provider 07/28/17 Demario Floyd MD [address] [place] [address] [email or web address] Historical LMR Provider 07/28/17 10/15/21 Pam Benson MD [address] [place] [address] [email or web address] Historical LMR Provider 07/28/17 10/15/21 Adithya Campos, PATENT LAW SPECIALIST [address] [place] [address] [email or web address] Historical LMR Provider 07/28/17 12/25/21 Beatriz Donaldson, CARDIOLOGY TECHNOLOGIST [address] [place] [address] Historical LMR Provider 07/28/17 04/11/20 Khang Kilgore MD [address] [place] [address] [address] [place] [address] [email or web address] Insurance Assigned Provider 01/12/24 Luis Ignacio DO [address] [place] [address], [address] [place] [address] Cardiology 06/28/22 06/16/24 Flo Esteban MD [address] [place] [address] [place] [address] [email or web address] Cardiothoracic Surgery 06/28/22 06/16/24 Dilan Rowland MD [address] [place] [address], [address] [place] [address] [email or web address] Insurance Assigned Provider 07/15/22 08/13/22 Corby Prado MD [address] [place] [address], [address] [place] [address] Insurance Assigned Provider 08/13/22 09/16/22 Neisha Pinto RN [address] [place] [address], [address] [place] [address] [email or web address] Lace Winder 02/26/23 06/10/25 Shreyas Wilson MD [address] [place] [address] Gastroenterology 06/17/24 Doretha Glynn MD [address] [place] [address] 3rd [place] [address] [email or web address] Endocrinology 06/17/24 Izzy Hackett [address] [place] [address] [email or web address] PHC Community Control And Recovery Combat Rescue 09/11/24 09/11/24 Radha Pereira RN [address] [place] [address] [email or web address] PHCM Lace WinderWaredresser 06/11/25 Jv Liz [address] [place] [address] [email or web address] Driver/Merchandiser 08/12/25 08/12/25 documented as of this encounter Additional Source Comments The information contained in this document represents components of the legal health record. It is not the complete legal health record.[facility]
--- OUTSIDE RECORDS SUMMARY | 2025-08-20 18:28 | XMS_ITS | Encounter Summary ---
Author Organization [facility] Address [address] [place] [address] [place] [address] Phone Care Team Providers Care Recycling Crew Supervisor Name Role Phone Lester Hicks MD Unavailable [phone] Margaux Montanez MD Unavailable [phone] Johann Hanson CNP Primary Care Provider [phone] Khang Kilgore MD Unavailable Luis Ignacio DO Unavailable Flo Esteban MD Unavailable [phone] Dilan Rowland MD Unavailable [phone] Corby Prado MD Unavailable [phone] Neisha Pinto RN Unavailable [email or web address] Srheyas Wilson MD Unavailable [phone] Doretha Glynn MD Unavailable [phone] Izzy Hackett Unavailable [email or web address] Radha Pereira RN Unavailable Jv Liz Unavailable Encounter Details Date Type Department Care Team (Late st Contact Info) Description 02/10/2022 Procedure Pass Non-Invasive Cardiology [address] [place] [address] Social History Tobacco Use Types Packs/Day Years [...] EST Office Visit [facility] [place] [facility] [place] [address] Johann Hanson, TIFFANIE [address] [facility] [place] [address] [email or web address] 09/10/2025 9:00 AM EST Office Visit [facility] 10 [place] [address] Unknown, [place], Shreyas Limon MD [address] [address] 09/21/2025 2:30 PM EST Office Visit [facility] 10 [place] [address] Lester Hicks MD [address] [place] [address] 10/07/2025 7:15 AM EST Appointment [facility] 30 [place] [address] Lester Hicks MD [address] [place] [address] 10/13/2025 9:20 AM EST Office Visit [facility] [address] [place] [address] Doretha Glynn MD [address] [place] [address] [email or web address] 12/22/2025 8:30 AM EDT Office Visit [address] [place] [address] Johann Hanson, RAND SEWER [address] [place] [address], [address] [place] [address] [email or web address] 06/30/2026 8:00 AM EDT Office Visit [address] [place] [address] SantJohann evans CNP [address] [facility] [place] [address] [email or web address] documented as of [...] documented as of this encounter Care Teams Recycling Crew Supervisor Relationship Specialty Start Date End Date Johann Hanson CNP [address] [place] [address], [address] [place] [address] [email or web address] PCP - General Family Medicine 02/11/21 Lester Hicks MD [address] [place] [address] [email or web address] Historical LMR Provider 07/28/17 Margaux Montanez MD [address] [place] [address], [address] [place] [address] [email or web address] Historical LMR Provider 07/28/17 Khang Kilgore MD [address] [place] [address], [address] [place] [address] Insurance Assigned Provider 01/12/24 Luis Ignacio DO [address] [place] [address], [address] [place] [address] Cardiology 06/28/22 06/16/24 Flo Esteban MD [address] [place] [address] [email or web address] Cardiothoracic Surgery 06/28/22 06/16/24 Dilan Rowland MD [address] [place] [address], [address] [place] [address] Insurance Assigned Provider 07/15/22 08/13/22 Corby Prado MD [address] [place] [address], [address] [place] [address] Insurance Assigned Provider 08/13/22 09/16/22 Neisha Pinto RN [address] [place] [address], [address] [place] [address] [email or web address] PHC Keyboard Instrument Tuner 02/26/23 06/10/25 Shreyas Wilson MD [address] [place] [address] Gastroenterology 06/17/24 Doretha Glynn MD [address] [place] [address] [address] [place] [address] Endocrinology 06/17/[address] [place] [address] [email or web address] PHCM Community Bar Tacker 09/11/24 09/11/24 Radha Pereira, RN 10 [place] [address] [email or web address] PHCM Keyboard Instrument TunerMetal Tube Cutter 06/11/25 Jv Liz [address] [place] [address] [email or web address] Study Assistant 08/12/25 08/12/25 documented as of this encounter Additional Source Comments The information contained in this document represents components of the legal health record. It is not the complete legal health record.[facility]
== END 2025-08-19 15:17 | disposition home or self-care (01) ==
LOC: HO.HOSX 15:16
PROVIDERS: Visit Provider Physician Assistant
DX: M17.11 Unilateral primary osteoarthritis, right knee (principal)
CPT/HCPCS: 20610; 73562; J0665; J1100; J2003

== ENCOUNTER 2025-08-25 06:58 | Outpatient (REF) | payer OTHER, SELFPAY ==
[2025-08-25 07:07] LABS: MANUAL DIFF FLAG NO
[2025-08-25 07:51] LABS: Hematocrit 40.2 % (37.0-47.0); Hemoglobin 13.2 g/dl (12.0-16.0); Imm Gran Abs Auto 0.01 X10*3/uL (0.00-0.03); Imm Gran Pct Auto 0.2 % (0.0-0.4); Lymphocytes Absolute Auto 2.1 X10*3/uL (1.2-4.9); Mean Corpuscular HGB Conc 32.8 g/dl (31.0-35.0); Mean Corpuscular Hemoglobin 29.7 pg (27.0-33.0); Mean Corpuscular Volume 90.3 fL (80.0-98.0); NRBC Abs Auto 0.000 X10*3/uL (0.0-0.012); NRBC Pct Auto 0.0 /100WBC (0.0-0.2); Platelet Count 280 X10*3/uL (160-400); Red Blood Count 4.45 X10*6/uL (4.20-5.50); White Blood Count 5.5 X10*3/uL (4.8-10.8)
[2025-08-25 08:11] LABS: Anion Gap 13 (12-20); Blood Urea Nitrogen 16 mg/dL (9-16); Calcium 9.7 mg/dL (8.4-10.2); Carbon Dioxide 31 mmol/L (22-29); Chloride 100 mmol/L (96-108); Estimated Glomerular Filt Rate > 60; Potassium 3.1 mmol/L (3.3-5.1); Sodium 141 mmol/L (135-145)
== END 2025-08-25 06:59 | disposition home or self-care (01) ==
LOC: HO.LAB 06:58
PROVIDERS: PCP Nurse Practitioner Adult Health; Visit Provider Nurse Practitioner Adult Health
DX: Z01.810 Encounter for preprocedural cardiovascular examination (principal)
CPT/HCPCS: 36415; 80048; 85025

== ENCOUNTER 2025-08-26 08:58 | Outpatient (REF) | payer OTHER, SELFPAY ==
--- OUTSIDE RECORDS SUMMARY | 2021-10-10 17:00 | XMS_ITS | Encounter Summary ---
Author Organization [facility] Address [address] [place] [address] [place] [address] Phone Care Team Providers Care Adult Health Clinical Nurse Specialist Name Role Phone Tricia Balderas Unavailable Lester Hicks MD Unavailable [phone] Margaux Montanez MD Unavailable Demario Floyd MD Unavailable [phone] Pam Benson MD Unavailable Adithya Campos VACUUM PAN TENDER Unavailable [phone] Johann Hanson CNP Primary Care Provider [phone] Encounter Details Date Type Department Care Team (Late st Contact Info) Description 10/10/2021 5:00 PM EST Hospital Encounter [facility] [address] [place] [address] Natacha Hernandez CNP 12 [place], [place] [id number] [email or web address] Social History Tobacco Use Types Packs/Day Years [...] high school, GED, job training, learning the Burkinan language, technical skills, or developing parenting skills)? [...] 12/07/2022 9:18 AM Alise Hamilton RN * [place] Suicide Severity Rating Scale (Screener/Recent Self-Report) Question [...] Care Team (Late st Contact Info) Description 09/10/2025 9:00 AM EST Office Visit [facility] Gastro[facility]ology [facility] [address] [place] [address] Unknown, Unknown, Shreyas Limon MD [address] [place] [address] 09/21/2025 2:30 PM EST Office Visit [facility] Pulmonary, Allergy and Critical Care Medicine [address] [place] [address] Lester Hicks MD [address] [place] [address] 10/07/2025 7:15 AM EST Appointment [facility] [address] [place] [address] Lester Hicks MD [address] [place] [address] [email or web address] 10/13/2025 9:20 AM EST Office Visit [facility] [address] [place] [address] Doretha Glynn MD [address] [place] [address] [email or web address] 12/22/2025 8:30 AM EDT Office Visit [address] [place] [address] Johann Hanson, VACUUM PAN TENDER [address] [place] [address], [address] [place] [address] [email or web address] 06/30/2026 8:00 AM EDT Office Visit [address] [place] [address] Johann Hanson, VACUUM PAN TENDER [address] [place] [address], [address] [place] [address] [email or web address] documented as of this encounter Procedures [...] body heights. Increased anterolisthesis of L4 on N9ftmly 2008, likely secondary to facet degenerative changes. Natacha Hernandez VACUUM PAN TENDER IMG XR SPINE Final Resul t documented [...] documented as of this encounter Care Teams Adult Health Clinical Nurse Specialist Relationship Specialty Start Date End Date Johann Hanson CNP [address] [place] [address], [address] [place] [address] PCP - General Family Medicine 02/11/21 Tricia Balderas DO 30 [place] [address] [email or web address] Historical LMR Provider 07/28/17 10/15/21 Lester Hicks MD [address] [place] [address] [email or web address] Historical LMR Provider 07/28/17 Margaux Montanez MD [address] [address] [email or web address] Historical LMR Provider 07/28/17 Demario Floyd MD [address] [place] [address] [email or web address] Historical LMR Provider 07/28/17 2 Pam Benson MD [address] [address] Historical LMR Provider 07/28/17 Adithya Campos CNP [address] [address] Historical LMR Provider 07/28/17 12/25/21 documented as of this encounter Additional Source Comments The information contained in this document represents components of the legal health record. It is not the complete legal health record.[facility]
--- OUTSIDE RECORDS SUMMARY | 2025-08-24 13:30 | XMS_ITS | Encounter Summary ---
Author Organization [facility] Address [address] [facility] [address] [place] [address] Phone Care Team Providers Care Pancake Professional Name Role Phone Lester Hicks MD Unavailable [phone] Margaux Montanez MD Unavailable [phone] Johann Hanson REGULATORY LEADER Primary Care Provider [phone] Khang Kilgore MD Unavailable [phone] Shreyas Wilson MD Unavailable [phone] Doretha Glynn MD Unavailable [phone] Radha Pereira RN Unavailable Reason for Visit * Reason Comments Pre-op Visit Encounter Details Date Type Department Care Team (Latest Contact Info) Description 08/24/2025 1:30 PM EST Office Visit [facility] [address] [place], [place] [id number] Johann Hanson, TIFFANIE [address] [facility], [address] [place], [place] [id number] [email or web address] Pre-operative cardiovascular examination (Primary Dx); Primary osteoarthritis of both knees; Essential hypertension; Abnormal electrocardiogram; SLE-Sjogren overlap syndrome; Class 1 obesity due to excess calories with serious comorbidity and body mass index (BMI) of 32.0 to 32.9 in adult Social History Tobacco Use Types Packs/Day Years [...] PM EDT documented as of this encounter Last Filed Vital Signs Vital Sign Reading Time Taken Comments Blood Pressure 103/57 08/24/2025 1:28 PM EST Pulse 70 08/24/2025 1:28 PM EST Temperature 36.9 C (98.4 F) 08/24/2025 1:28 PM EST Respiratory Rate - - Oxygen Saturation 97% 08/24/2025 1:28 PM EST Inhaled Oxygen Concentration - - Weight 80.6 kg (177 lb 12.8 oz) 08/24/2025 1:28 PM EST Height 158.5 cm (5' 2.4 ) 08/24/2025 1:28 PM EST Body Mass Index 32.1 08/24/2025 1:28 PM EST documented in this encounter Progress Notes * Johann Hanson, TIFFANIE - 08/24/2025 1:30 PM EST HPI: Porsha presents for a pre-operative visit at the request of Dr. Brunner who plans left total knee arthroplasty on 10/20/2025. Porsha reports chronic, worsening knee pain. Dr. Brunner requests BMP and CBC with diff. EKG is also requested. Porsha met with Dr. Buckley at [facility] cardiovascular on 08/05 for pre-operative cardiovascular risk assessment. EKG was performed at that time. I do not have access to the image butthe note references non-specific T- wave changes and PVCs. Echocardiogram 07/2025 with EF 60-65%, grade 1 diastolic dysfunction, and mild calcification of theaortic and mitral valves. Mild aortic stenosis was present. She received clearance to proceed to knee replacement by cardiology. Porsha denies chest pain, SOB, palpitations. No exercise intolerance. She denies difficulty with anesthesia in the past except for post-operative nausea. She has already discussed scopolamine patch forpost-operative care. She has an anesthesia consult on 09/21. She reports that she had a sleep study so long ago that I can't remember when. She was not diagnosed with DWIGHT. She has not had a conversation with post-operative opioids. We might trial Celebrex again. She had hives when she took it in the past but never had anaphylaxis. She does not take ASA or any NSAIDs. Tramadol and gabapentin are prescribed through rheumatology. She has a prescription for cyclobenzaprine but hasn't needed it in the past 6 months. She is [facility] by [facility] rheumatology for SLE-Sjogren overlap managed with methotrexate and Plaquenil. She has a prescription for lorazepam. She is feeling more anxious heading into surgery. She uses itabout twice a week. Porsha is taking compounded tirzepatide through a company online. She has not gotten pre-operative guidance for that yet. Vitals: 08/24/25 1328 BP: 103/57 BP Location: Right arm Patient Position: Sitting Cuff Size: Large Pulse: 70 Temp: 36.9 ??C (98.4 ??F) SpO2: 97% Weight: 80.6 kg (177 lb 12.8 oz) Height: 158.5 cm (5' 2.4 ) Current Outpatient Medications on File Prior to Visit Medication Sig Dispense Refill Last Dispense acetaminophen (PAIN RELIEF, ACETAMINOPHEN,) 650 MG CR tablet Take 1,300 mg by mouth every 8 (eight)hours as needed for pain (specific location in comments). Unknown (patient-reported) albuterol-budesonide (AIRSUPRA) 90-80 mcg/actuation inhaler INHALE 2 PUFFS INTO THE LUNGS EVERY 4 (FOUR) HOURS NEEDED. 10.7 g 5 Unknown (outside pharmacy) B-complex with vitamin C Cap Take 1 capsule by mouth daily. Unknown (patient-reported) BD SAFETYGLIDE TB REG BEVEL 1 mL 27 x 1/2 Syrg USE DIRECTED TO INJECT UNDER THE SKIN EVERY 7 DAYS 25 each 2 Unknown (outside pharmacy) budesonide-formoterol 160-4.5 mcg/actuation inhaler INHALE 2 PUFFS INTO THE LUNGS 2 (TWO) TIMES A DAY. 10.2 g 5 Unknown (outside pharmacy) calcium carbonate (CALCIUM 500 ORAL) Take by mouth. Indications: unsure strength Unknown (patient-reported) cyclobenzaprine (FLEXERIL) 5 MG tablet take 1 tablet by mouth every night at bedtime as needed 30 tablet 0 Unknown (outside pharmacy) ergocalciferol (VITAMIN D2) 50,000 unit capsule TAKE 1 CAPSULE (50 000 UNITS TOTAL) BY MOUTH ONCE AWEEK. 12 capsule 1 Unknown (outside pharmacy) escitalopram oxalate (LEXAPRO) 10 MG tablet TAKE ONE (1) TABLET BY MOUTH EVERY DAY 90 tablet 3 Unknown (outside pharmacy) famotidine (PEPCID) 40 MG tablet Take 80 mg by mouth daily. Unknown (patient-reported) folic acid (FOLVITE) 1 MG tablet TAKE 1 TABLET BY MOUTH ONCE EVERY DAY EXCEPT FOR THE DAY OF WEEKLYMETHORTEXATE 90 tablet 3 Unknown (outside pharmacy) gabapentin (NEURONTIN) 600 MG tablet TAKE 2 TABLETS (1200MG) BY MOUTH EACH MORNING AND AT BEDTIME 360 tablet 1 Unknown (outside pharmacy) hydroCHLOROthiazide 25 MG tablet TAKE 1 TABLET BY MOUTH EVERY DAY 90 tablet 0 Unknown (outside pharmacy) hydroxychloroquine (PLAQUENIL) 200 mg tablet TAKE ONE (1) TABLET BY MOUTH TWICE DAILY 180 tablet 3 Unknown (outside pharmacy) ipratropium-albuteroL (DUONEB) 0.5-3 mg (2.5 mg base)/3 mL nebulizer solution Take 3 mL by nebulization 4 (four) times a day. (Patient taking differently: Take 3 mL by nebulization as needed.) 360 mL5 Unknown (outside pharmacy) levothyroxine (SYNTHROID, LEVOTHROID) 150 MCG tablet Take 1 tablet (150 mcg total) by mouth every morning. 90 tablet 1 Unknown (outside pharmacy) LORazepam (ATIVAN) 0.5 MG tablet Take 1 tablet (0.5 mg total) by mouth daily as needed for anxiety.Do not take with Tramadol or at the same time as trazodone or gabapentin. 15 tablet 0 Unknown (outside pharmacy) losartan (COZAAR) 100 MG tablet TAKE ONE (1) TABLET BY MOUTH EVERY DAY 90 tablet 1 Unknown (outsidepharmacy) methotrexate sodium, PF, 25 mg/mL injection INJECT 0.8ML (20MG) UNDER THE SKIN EVERY 7 DAYS DIRECTED *DISCARD REMAINDER OF VIAL AFTER OPENING* 8 mL 1 Unknown (outside pharmacy) montelukast (SINGULAIR) 10 mg tablet TAKE 1 TABLET BY MOUTH EVERY DAY AT BEDTIME 90 tablet 2 Unknown (outside pharmacy) ondansetron (ZOFRAN-ODT) 4 MG disintegrating tablet Take 4 mg by mouth as needed. Unknown (patient-reported) pantoprazole (PROTONIX) 40 MG tablet Take 40 mg by mouth 2 (two) times a day. Unknown (patient-reported) pilocarpine (SALAGEN) 5 MG tablet TAKE 1 TABLET(5 MG) BY MOUTH FOUR TIMES DAILY 360 tablet 3 Unknown (outside pharmacy) TIRZEPATIDE, WEIGHT LOSS, SUBQ Inject 0.44 mL under the skin once a week. Unknown (patient-reported) traMADoL (ULTRAM) 50 mg tablet Take 1 tablet (50 mg total) by mouth every 8 (eight) hours as neededfor pain (specific location in comments). 90 tablet 0 Unknown (outside pharmacy) traZODone (DESYREL) 50 MG tablet Take 3 tablets (150 mg total) by mouth nightly at bedtime. 270 tablet 3 Unknown (outside pharmacy) triamcinolone (ORALONE) 0.1 % paste APPLY TO MOUTH SORES 4 TO 5 TIMES A DAY NEEDED 30 g 0 Unknown (outside pharmacy) [DISCONTINUED] ipratropium (ATROVENT) 42 mcg (0.06 %) nasal spray INSTILL 2 SPRAYS (ONE IN EACH NOSTRIL) 3 (THREE) TIMES A DAY. (Patient taking differently: as needed.) 15 mL 12 Unknown (outside pharmacy) [DISCONTINUED] buPROPion (WELLBUTRIN XL) 150 MG ER 24 hr tablet Take 3 tablets (450 mg total) by mouth daily. 270 tablet 1 Unknown (outside pharmacy) [DISCONTINUED] hydroCHLOROthiazide 25 MG tablet TAKE 1 TABLET BY MOUTH EVERY DAY 90 tablet 0 Unknown (outside pharmacy) [DISCONTINUED] sertraline (ZOLOFT) 100 MG tablet Take 1 tablet (100 mg total) by mouth daily. 90 tablet 1 Unknown (outside pharmacy) Current Facility-Administered Medications on File Prior to Visit Medication Dose Route Frequency Provider Last Rate Last Admin BUPivacaine HCl (MARCAINE) 0.25% injection 2 mL 2 mL See Administration Instructions See Admin Instructions Luana Alvarez MD lidocaine (XYLOCAINE) 1% injection 2 mL 2 mL See Administration Instructions See Admin InstructionsLuana Alvarez MD triamcinolone acetonide (KENALOG-40) 40 mg/mL injection 40 mg 40 mg See Administration InstructionsSee Admin Instructions Luana Alvarez MD Allergies Allergen Reactions Codeine Nausea and/or Vomiting Cough syrup Reglan [Metoclopramide Hcl] Mental Status Change Zantac [Ranitidine Hcl] Anaphylaxis Celebrex [Celecoxib] Hives Keflex [Cephalexin] Other (See Comments) Near syncope Patient Active Problem List Diagnosis Sjogren's syndrome with lung involvement Primary osteoarthritis involving multiple joints Tracheobronchomalacia determined by bronchoscopy Gastroesophageal reflux disease with esophagitis Inflammatory arthritis 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, predatory animal exterminator, current use On selective serotonin reuptake inhibitor (SSRI) therapy Trochanteric bursitis of left hip Essential hypertension Dry mouth Calculus of salivary duct Long-term use of Plaquenil Fibromyalgia Asthma, cough variant 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 Chronic fatigue SLE-Sjogren overlap syndrome PTSD (post-traumatic stress disorder) Mouth sores History of COVID-19 Anxiety and depression Bilateral pleural effusion Encounter for general adult medical examination with abnormal findings Perioral dermatitis Obesity due to excess calories with serious comorbidity Hair loss Rheumatoid arthritis with rheumatoid factor of left knee without organ or systems involvement Numbness and tingling of both upper extremities Vitamin D insufficiency Muscle spasm Multiple thyroid nodules Allergic rhinitis Osteoarthritis of both knees Vitamin D deficiency, unspecified Primary osteoarthritis of both knees Class 1 obesity due to excess calories with serious comorbidity and body mass index (BMI) of 32.0 to 32.9 in adult Exam: General appearance: Alert, pleasant, in no acute distress. Obese. HEENT: NC/AT. EOMI. Conjunctiva clear. Mallampati III. Neck: Supple, no adenopathy. Lungs: Clear to auscultation throughout, no wheezes/rhonchi/rales, regular breathing rate and effort. Cardiac: Regular rate and rhythm, no murmurs. Extremities: No edema. Musculoskeletal: Normal gait without assistive devices. Skin: No rash or worrisome skin lesions on exposed skin. Psychological: Affect is normal. Appropriate eye contact. Thought process and insight are normal. A/P: Assessment & Plan Pre-operative cardiovascular examination Porsha will have labs drawn at the hospital today. She has previously received clearance from cardiology at [facility]. EKG today with nonspecific T wave changes but no significant changes compared to prior 06/2025. For perioperative planning, Porsha has been taking compounded tirzepatide and should discuss with hersurgeon whether this needs to be held for any length of time prior to surgery. She has lost about 50 pounds intentionally. Mallampati III on exam today. She is taking sedating medications chronically including Tramadol and gabapentin from rheumatology.Defer to surgery for use of these and any new medications for post-operative pain. She has a prescription for lorazepam and is advised, again, to use this sparingly and not to take with other sedating medications. She has already discussed scopolamine patch with her surgical provider and will discuss with anesthesia as well. After labs are received, will forward note and EKG and labs to Dr. Brunner. Pending those results,Porsha is of acceptable risk for planned total knee arthroplasty. Orders: ECG 12-LEAD CBC and Differential; Future Basic Metabolic Panel (BMP); Future Primary osteoarthritis of both knees Orders: ECG 12-LEAD Essential hypertension Blood pressure is adequately controlled today. Abnormal electrocardiogram SLE-Sjogren overlap syndrome On methotrexate and Plaquenil through rheumatology. If there is any requirement for Plaquenil holiday, I defer to Dr. Montanez. Class 1 obesity due to excess calories with serious comorbidity and body mass index (BMI) of 32.0 to 32.9 in adult * Khang Kilgore MD - 08/24/2025 1:30 PM EST Subject Line: Provider Attestation I have reviewed the notes, assessments, and/or procedures performed by , I concur with her/his documentation of Herlinda Monge. documented in this encounter Miscellaneous Notes * Assessment & Plan Note - Johann Hanson CNP - 08/24/2025 1:30 PM EST Associated Problem(s): Primary osteoarthritis of both knees Orders: ECG 12-LEAD * Assessment & Plan Note - Johann Hanson CNP - 08/24/2025 1:30 PM EST Associated Problem(s): Class 1 obesity due to excess calories with serious comorbidity and body mass index (BMI) of 32.0 to 32.9 in adult * Assessment & Plan Note - Johann Hanson CNP - 08/24/2025 1:30 PM EST Associated Problem(s): Essential hypertension Blood pressure is adequately controlled today. * Assessment & Plan Note - Johann Hanson CNP - 08/24/2025 1:30 PM EST Associated Problem(s): SLE-Sjogren overlap syndrome On methotrexate and Plaquenil through rheumatology. If there is any requirement for Plaquenil holiday, I defer to Dr. Montanez. documented in this encounter Plan of Treatment Upcoming Encounters Date Type Department Care Team (Late st Contact Info) Description 09/10/2025 9:00 AM EST Office Visit [facility]astro[facility] 10 [place] [address] Unknown, Unknown, Shreyas Limon MD [address] [place] [address] 09/21/2025 2:30 PM EST Office Visit [facility] 10 [place] [address] Lester Hicks MD [address] [place] [address] 10/07/2025 7:15 AM EST Appointment [facility] 30 [place] [address] Lester Hicks MD [address] [place] [address] 10/13/2025 9:20 AM EST Office Visit [facility] [address] [place] [address] [place] [address] Doretha Glynn MD [address] [place] [address] [email or web address] 12/22/2025 8:30 AM EDT Office Visit [address] [place] [address] Johann Hanson, REGULATORY LEADER [address] [place] [address], [address] [place] [address] [email or web address] 06/30/2026 8:00 AM EDT Office Visit [address] [place] [address] Johann Hanson, REGULATORY LEADER [address] [place] [address], [address] [place] [address] [email or web address] documented as of this encounter Procedures Procedure Name Priority Date/Time Associated Diagnosis Comments ECG 12-LEAD Routine 08/24/2025 1:38 PM EST Pre-operative cardiovascular examination Primary osteoarthritis of both knees documented in this encounter Results * ECG 12-LEAD (08/24/2025 1:38 PM EST) Narrative EXTERNAL NON-INTERFACED REF LAB - 08/24/2025 1:38 PM EST Type of EKG: Standard. Global (08355). Notes Sinus rhythm, possible LVH. Nonspecific T wave changes. QTc 399 ms. No significant changes from 06/2025. Johann Moralesnathan MORENO ECG ORDERABLES Edited Re sult - Final EXTERNAL NON-INTERFACED REF LAB documented in this encounter Visit Diagnoses Diagnosis Pre-operative cardiovascular examination- Primary Primary osteoarthritis of both knees Essential hypertension Unspecified essential hypertension Abnormal electrocardiogram Nonspecific abnormal electrocardiogram (ECG) (EKG) SLE-Sjogren overlap syndrome Class 1 obesity due to excess calories with serious comorbidity and body mass index (BMI) of 32.0 to 32.9 in adult documented in this encounter Additional Health Concerns Assessment Noted Time PHQ-9 Depression Total Score: 4 10/29/19 24 1:54 PM EST PHQ-2 Depression Total Score: 0 06/23/20 25 12:32 PM EDT documented as of this encounter Care Teams Pancake Professional Relationship Specialty Start Date End Date Johann Hanson CNP [address] [place] [address], [address] [place] [address] [email or web address] PCP - General Family Medicine 02/11/21 Lester Hicks MD [address] [place] [address] [email or web address] Historical LMR Provider 07/28/17 Margaux Montanez MD [address] [place] [address], [address] [place] [address] [email or web address] Historical LMR Provider 07/28/17 Khang Kilgore MD [address] [place] [address], [address] [place] [address] Insurance Assigned Provider 01/12/24 Shreyas Wilson MD [address] [place] [address] Gastroenterology 06/17/24 Doretha Glynn MD [address] [place] [address] Endocrinology 06/17/24 Radha Pereira, RN [address] [place] [address] [email or web address] PHCM Metal DresserAssignment Desk Editor 06/11/25 documented as of this encounter Additional Source Comments The information contained in this document represents components of the legal health record. It is not the complete legal health record.[facility]
--- NOTE | ~2025-08-26 | US_ITS ---
CLINICAL HISTORY: RUQ pain US abdomen complete Comparison: CT - CT ABDOMEN PELVIS W IV CON - 10/14/24 08:12 EST Findings: The visualized pancreas head is normal. The visualized aorta and inferior vena cava are normal caliber. The liver is not well seen due to limited acoustic window, right lobe length is 15.9 cm. The visualized liver parenchyma is grossly normal in echogenicity without apparent focal lesion. No intrahepatic bile duct dilatation. The common duct is dilated up to 11 mm in diameter, distal CBD is not seen. The gallbladder is normal. Negative sonographic Estrada sign. The main portal vein is patent with antegrade flow. Kidneys are in the pelvis bilaterally. The right kidney demonstrates simple cyst 1.9 cm in the midpole, otherwise normal, 9.6 cm in length. The left kidney is normal, 9.6 cm in length. The spleen is mildly enlarged, 13 cm in length. No free fluid in the abdomen. Impression: 1. Dilated CBD, uncertain etiology and not seen on prior CT, concerning for distal obstructive process, recommend correlation with LFT and further evaluation by MRCP. 2. Right renal cyst. 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 This document has been electronically signed by: Heidy Major MD on 08/26/2025 15:55:19
--- OUTSIDE RECORDS SUMMARY | 2025-08-26 16:42 | XMS_ITS | Encounter Summary ---
Author Organization [facility] Address [address] [place] [address] Phone Care Team Providers Care Highway Engineering Technician Name Role Phone Lester Hicks MD Unavailable [phone] Margaux Montanez MD Unavailable [phone] Johann Hanson CNP Primary Care Provider [phone] Khang Kilgore MD Unavailable Neisha Pinto RN Unavailable [email or web address] Shreyas Wilson MD Unavailable Doretha Glynn MD Unavailable [phone] Izzy Hackett Unavailable [email or web address] Radha Pereira RN Unavailable Jv Liz Unavailable Encounter Details Date Type Department Care Team (Late st Contact Info) Description 06/20/2024 Procedure Pass [facility] Endoscopy Admitting Dept Virtual Department [address] [place] [address] Social History Tobacco Use Types Packs/Day [...] high school, GED, job training, learning the Tanzanian language, technical skills, or developing parenting skills)? [...] Description 09/10/2025 9:00 AM EST Office Visit [facility] Clinic [address] [place] [address] Unknown, Unknown, Shreyas Limon MD [address] [place] [address] 09/21/2025 2:30 PM EST Office Visit [facility] [address] [place] [address] Lester Hicks MD [address] [place] [address] 10/07/2025 7:15 AM EST Appointment [facility] [address] [place] [address] Lester Hicks MD [address] [place] [address] 10/13/2025 9:20 AM EST Office Visit [facility] [address] [place] [address] Doretha Glynn MD [address] [place] [address] [email or web address] 12/22/2025 8:30 AM EDT Office Visit [facility] [address] [place] [address] Johann Hanson CNP [address] [facility], [address] [place] [address] [email or web address] 06/30/2026 8:00 AM EDT Office Visit [facility] 22 [place] [address] Johann Hanson CNP [address] [facility] [place] [address] [email or web address] documented as of this encounter Visit Diagnoses Not on filedocumented in this encounter Additional Health Concerns Assessment Noted Time PHQ-9 Depression Total Score: 4 10/29/19 24 1:54 PM EST PHQ-2 Depression Total Score: 0 06/10/20 9:22 AM EDT documented as of this encounter Care Teams Highway Engineering Technician Relationship Specialty Start Date End Date Johann Hanson CNP [address] [place] [address], [address] [place] [address] PCP - General Family Medicine 02/11/21 Lester Hicks MD [address] [place] [address] Historical LMR Provider 07/28/17 Margaux Montanez MD [address] [place] [address], [address] [place] [address] Historical LMR Provider 07/28/17 Khang Kilgore MD [address] [place] [address], [address] [place] [address] Insurance Assigned Provider 01/12/24 Neisha Pinot, RANDI [address] [facility] [place] [address] [email or web address] PHCM Qa Developer 02/26/23 06/10/25 Shreyas Wilson MD [address] [place] [address] Gastroenterology 06/17/24 Doretha Glynn MD [address] [place] [address] [address] [place] [address] Endocrinology 06/17/24 Izzy Hackett [address] [place] [address] [email or web address] PHCM Community Graduate Assistant Athletic Trainer 09/11/24 09/11/24 Radha Pereira, RANDI [address] [place] [address] PHC Qa DeveloperWaiter/Waitress Informal 06/11/25 Jv Liz [address] [place] [address] Technical Delivery Manager 08/12/25 08/12/25 documented as of this encounter Additional Source Comments The information contained in this document represents components of the legal health record. It is not the complete legal health record.[facility]
--- OUTSIDE RECORDS SUMMARY | 2025-08-26 16:42 | XMS_ITS | Encounter Summary ---
Author Organization [facility] Address [address] [place] [address] [place] [address] Phone Care Team Providers Care Manager Case Management Name Role Phone Lester Hicks MD Unavailable [phone] Margaux Montanez MD Unavailable Johann Hanson CNP Primary Care Provider [phone] Khang Kilgore MD Unavailable Neisha Pinto RN Unavailable [email or web address] Shreyas Wilson MD Unavailable [phone] Doretha Glynn MD Unavailable [phone] Radha Pereira RN Unavailable Jv Liz Unavailable Encounter Details Date Type Department Care Team (Late st Contact Info) Description 01/13/2025 Procedure Pass [facility] L2 PRU [address] [place] [address] Social History Tobacco Use Types Packs/Day Years [...] Description 09/10/2025 9:00 AM EST Office Visit [facility] Gastroenterology Clinic 10 [place] [address] Unknown, Unknown, Shreyas Limon MD [address] [place] [address] 09/21/2025 2:30 PM EST Office Visit [facility] 10 [place] [address] Lester Hicks MD [address] [place] [address] 10/07/2025 7:15 AM EST Appointment [facility] [address] [place] [address] Lester Hicks MD [address] [place] [address] 10/13/2025 9:20 AM EST Office Visit [facility] [address] [place] [address] [place] [address] Doretha Glynn MD [address] [place] [address] [email or web address] 12/22/2025 8:30 AM EDT Office Visit [facility] Medicine [address] [place] [address] [place] [address] Johann Hanson, MANGANESE BREAKER [address] [facility], [address] [place] [address] [email or web address] 06/30/2026 8:00 AM EDT Office Visit [address] [place] [address] Johann Hanson CNP 22 [facility], [address] [place] [address] [email or web address] documented as of this encounter Visit Diagnoses Not on filedocumented in this encounter Additional Health Concerns Assessment Noted Time PHQ-9 Depression Total Score: 4 10/29/19 24 1:54 PM EST PHQ-2 Depression Total Score: 0 06/10/20 9:22 AM EDT documented as of this encounter Care Teams Manager Case Management Relationship Specialty Start Date End Date Johann Hanson CNP [address] [place] [address], [address] [place] [address] PCP - General Family Medicine 02/11/21 Lester Hicks MD [address] [place] [address] Historical LMR Provider 07/28/17 Margaux Montanez MD [address] [place] [address], [address] [place] [address] Historical LMR Provider 07/28/17 Khang Kilgore MD [address] [place] [address], [address] [place] [address] Insurance Assigned Provider 01/12/24 Neisha Pinto RN [address] [place] [address], [address] [place] [address] [email or web address] PHCM Fur Blowing Machine Operator 02/26/23 06/10/25 Shreyas Wilson MD [address] [place] [address] Gastroenterology 06/17/24 Doretha Glynn MD [address] [place] [address] Endocrinology 06/17/24 Radha Pereira RN [address] [place] [address] [email or web address] PHC Fur Blowing Machine OperatorTest Center Administrator 06/11/25 Jv Liz [address] [place] [address] [email or web address] Skiver Blockers 08/12/25 08/12/25 documented as of this encounter Additional Source Comments The information contained in this document represents components of the legal health record. It is not the complete legal health record.[facility]
--- OUTSIDE RECORDS SUMMARY | 2025-08-26 16:42 | XMS_ITS | Encounter Summary ---
Author Organization [facility] Address [address] [place] [address] Phone Care Team Providers Care Foreign Student Adviser Name Role Phone Lester Hicks MD Unavailable [phone] Margaux Montanez MD Unavailable Johann Hanson CNP Primary Care Provider [phone] Khang Kilgore MD Unavailable [phone] Luis Ignacio DO Unavailable Flo Esteban MD Unavailable [phone] Neisha Pinto RN Unavailable [email or web address] Shreyas Wilson MD Unavailable Doretha Glynn MD Unavailable [phone] Izzy Hackett Unavailable [email or web address] Radha Pereira RN Unavailable Jv Liz Unavailable Encounter Details Date Type Department Care Team (Late st Contact Info) Description 12/22/2022 Procedure Pass [facility], [address] [id number] Social History Tobacco Use Types Packs/Day Years [...] high school, GED, job training, learning the [place] language, technical skills, or developing parenting [...] Description 09/10/2025 9:00 AM EST Office Visit [facility] Gastroenterology Clinic 10 [place] [address] Unknown, Unknown, Shreyas Limon MD [address] [address] 09/21/2025 2:30 PM EST Office Visit [facility] 10 [place] [address] Lester Hicks MD [address] [place] [address] 10/07/2025 7:15 AM EST Appointment [facility] 30 [place] [address] Lester Hicks MD [address] [place] [address] 10/13/2025 9:20 AM EST Office Visit [facility] [address] [place] [address] [place] [address] Doretha Glynn MD [address] [place] [address] [email or web address] 12/22/2025 8:30 AM EDT Office Visit [address] [place] [address] Johann Hanson, PSYCHOLOGISTS [address] [place] [address], [address] [place] [address] [email or web address] 06/30/2026 8:00 AM EDT Office Visit [address] [place] [address] Johann Hanson, PSYCHOLOGISTS [address] [place] [address], [address] [place] [address] [email or web address] documented as of this encounter Visit Diagnoses Not on filedocumented in this encounter Additional Health Concerns Infection Onset Date Last Indicated Resolved Time COVID-19 10/07/2023 10/07/2023 10/28/2023 1:21 AM EST Assessment Noted Time PHQ-2 Depression Total Score: 0 01/01/20 1:26 PM EDT documented as of this encounter Care Teams Foreign Student Adviser Relationship Specialty Start Date End Date CarmenJohann evans CNP [address] [place] [address], [address] [place] [address] PCP - General Family Medicine 02/11/21 Lester Hicks MD [address] [place] [address] [email or web address] Historical LMR Provider 07/28/17 Margaux Montanez MD [address] [place] [address], [address] [place] [address] [email or web address] Historical LMR Provider 07/28/17 Khang Kilgore MD [address] [place] [address], [address] [place] [address] [email or web address] Insurance Assigned Provider 01/12/24 Luis Ignacio DO [address] [place] [address], [address] [place] [address] Cardiology 06/28/22 06/16/24 Flo Esteban MD [address] [place] [address] [place] [address] [email or web address] Cardiothoracic Surgery 06/28/22 06/16/24 Neisha Pinto, RANDI [address] [place] [address] [place] [address] [email or web address] PHCM Switch Repairer 02/26/23 06/10/25 Shreyas Wilson MD [address] [place] [address] Gastroenterology 06/17/24 Doretha Glynn MD [address] [place] [address] Endocrinology 06/17/24 Izzy Hackett [address] [place] [address] [email or web address] PHCM Community Silk Worker 09/11/24 09/11/24 Radha Pereira RN [address] [place] [address] PHCM Switch RepairerApplications Programmer Analyst 06/11/25 Jv Liz [address] [place] [address] Lead Fabricator 08/12/25 08/12/25 documented as of this encounter Additional Source Comments The information contained in this document represents components of the legal health record. It is not the complete legal health record.[facility]
--- OUTSIDE RECORDS SUMMARY | 2025-08-26 16:42 | XMS_ITS | Clinical Summary ---
Author Organization [facility] Address [address] [place] [address] Phone Care Team Providers Care Hop Weigher Name Role Phone Lester Hicks MD Unavailable [phone] Margaux Montanez MD Unavailable Eunice Sanz CNP Primary Care Provider [phone] Khang Kilgore MD Unavailable [phone] Shreyas Murphy MD Unavailable [phone] Doretha Glynn MD Unavailable [phone] Radha Pereira RN Unavailable Allergies Active Allergy Reactions Criticality Noted Date Comments Celecoxib Hives Medium 10/04/2017 Codeine Nausea and/or Vomiting High 01/10/2011 Cough syrup Cephalexin Other (See Comments) 10/04/2017 Near syncope Metoclopramide Hcl Mental Status Change High 022 Ranitidine Hcl Anaphylaxis High 10/04/2017 Medications B-complex with vitamin C Cap Take 1 capsule by mouth daily. Active calcium carbonate (CALCIUM 500 ORAL)Indications :unsure strength Take by mouth. Indications: unsure strength Active pantoprazole (PROTONIX) 40 MG tablet Take 40 mg by mouth 2 (two) times a day. 023 Active acetaminophen (PAIN RELIEF, ACETAMINOPHEN,) 650 MG CR tablet Take 1,300 mg by mouth every 8 (eight) hours as needed for pain (specific location in comments). Active famotidine (PEPCID) 40 MG tablet Take 80 mg by mouth daily. Active ipratropium-albu teroL (DUONEB) 0.5-3 mg (2.5 mg base)/3 mL nebulizer solution Take 3 mL by nebulization 4 (four) times a day. 360 mL 5 023 Active Additional Information Patient taking differently:3 mL NebulizationAs needed, Reported on 08/24/2025 cyclobenzaprine (FLEXERIL) 5 MG tabletIndication s:Muscle spasm take 1 tablet by mouth every night at bedtime as needed 30 tablet 024 Active triamcinolone (ORALONE) 0.1 % pasteIndications :SLE-Sjogren overlap syndrome,Mouth sore APPLY TO MOUTH SORES 4 TO 5 TIMES A DAY NEEDED 30 g 024 Active folic acid (FOLVITE) 1 MG tabletIndication s: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, assistant terminal manager, current use TAKE 1 TABLET BY MOUTH ONCE EVERY DAY EXCEPT FOR THE DAY OF WEEKLY METHORTEXATE 90 tablet 3 025 Active pilocarpine (SALAGEN) 5 MG tabletIndication s:Sjogren's syndrome with lung involvement TAKE 1 TABLET(5 MG) BY MOUTH FOUR TIMES DAILY 360 tablet 3 025 Active montelukast (SINGULAIR) 10 mg tabletIndication s:Asthma, cough variant,SOB (shortness of breath) TAKE 1 TABLET BY MOUTH EVERY DAY AT BEDTIME 90 tablet 2 025 Active albuterol-budeso nide (AIRSUPRA) 90-80 mcg/actuation inhalerIndicatio ns:Asthma, cough variant INHALE 2 PUFFS INTO THE LUNGS EVERY 4 (FOUR) HOURS NEEDED. 10.7 g 5 025 Active traZODone (DESYREL) 50 MG tablet Take 3 tablets (150 mg total) by mouth nightly at bedtime. 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 90 tablet 1 025 Active ergocalciferol (VITAMIN D2) 50,000 unit capsuleIndicatio ns:Vitamin D deficiency, unspecified TAKE 1 CAPSULE (50 000 UNITS TOTAL) BY MOUTH ONCE A WEEK. 12 capsule 1 025 Active hydroxychloroqui ne (PLAQUENIL) 200 mg tabletIndication s:Inflammatory arthritis,Methot rexate, assistant terminal manager, current use,Primary osteoarthritis involving multiple joints,Sjogren's syndrome with lung involvement TAKE ONE (1) TABLET BY MOUTH TWICE DAILY 180 tablet 3 025 Active losartan (COZAAR) 100 MG tabletIndication s:Essential hypertension TAKE ONE (1) TABLET BY MOUTH EVERY DAY 90 tablet 1 025 Active escitalopram oxalate (LEXAPRO) 10 MG tablet TAKE ONE (1) TABLET BY MOUTH EVERY DAY 90 tablet 3 025 Active traMADoL (ULTRAM) 50 mg tabletIndication s:SLE-Sjogren overlap syndrome,Inflamm atory arthritis Take 1 tablet (50 mg total) by mouth every 8 (eight) hours as needed for pain (specific location in comments). 90 tablet 025 Active ondansetron (ZOFRAN-ODT) 4 MG disintegrating tablet Take 4 mg by mouth as needed. 025 Active TIRZEPATIDE, WEIGHT LOSS, SUBQ Inject 0.44 mL under the skin once a week. 025 Active budesonide-formo terol 160-4.5 mcg/actuation inhaler INHALE 2 PUFFS INTO THE LUNGS 2 (TWO) TIMES A DAY. 10.2 g 5 025 Active gabapentin (NEURONTIN) 600 MG tabletIndication s:Primary osteoarthritis involving multiple joints TAKE 2 TABLETS (1200MG) BY MOUTH EACH MORNING AND AT BEDTIME 360 tablet 1 025 Active methotrexate sodium, PF, 25 mg/mL injectionIndicat ions:Inflammator y arthritis INJECT 0.8ML (20MG) UNDER THE SKIN EVERY 7 DAYS DIRECTED *DISCARD REMAINDER OF VIAL AFTER OPENING* 8 mL 1 025 Active BD SAFETYGLIDE TB REG BEVEL 1 mL 27 x 1/2 SyrgIndications: 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, assistant terminal manager, current use USE DIRECTED TO INJECT UNDER THE SKIN EVERY 7 DAYS 25 each 2 Active hydroCHLOROthiaz blanca 25 MG tabletIndication s:Essential hypertension TAKE 1 TABLET BY MOUTH EVERY DAY 90 tablet Active LORazepam (ATIVAN) 0.5 MG tablet Take 1 tablet (0.5 mg total) by mouth daily as needed for anxiety. Do not take with Tramadol or at the same time as trazodone or gabapentin. 15 tablet Active buPROPion (WELLBUTRIN XL) 150 MG ER 24 hr tabletIndication s:Anxiety and depression Take 3 tablets (450 mg total) by mouth daily. 270 tablet 1 021 2021 Discontinued sertraline (ZOLOFT) 100 MG tablet Take 1 tablet (100 mg total) by mouth daily. 90 tablet 1 021 2021 Discontinued LORazepam (ATIVAN) 0.5 MG tablet Take 1 tablet (0.5 mg total) by mouth daily as needed for anxiety. Do not take with Tramadol or at the same time as trazodone or gabapentin. 15 tablet 025 2024 Discontinued(R eokirstener) hydroCHLOROthiaz blanca 25 MG tabletIndication s:Essential hypertension TAKE 1 TABLET BY MOUTH EVERY DAY 90 tablet 025 2024 Discontinued ipratropium (ATROVENT) 42 mcg (0.06 %) nasal spray INSTILL 2 SPRAYS (ONE IN EACH NOSTRIL) 3 (THREE) TIMES A DAY. 15 mL 12 025 2024 Discontinued Hospital, Clinic, or Other [...] (BMI) of 32.0 to 32.9 in adult 07/23/2025 Assessment & Plan (08/24/2025 2:09 PM EST): Assessment & Plan (07/23/2025 8:36 AM EDT): Congratulations on losing 14 pounds from 195 on 03/19/2025 down to 181 today and keep it off. Continue diligent portion control. Limit concentrated sugars, saturated fats and calories in the diet. Keep well-hydrated. If unable to achieve expected goal consider formal dietary/nutritional support. Primary osteoarthritis of both knees 03/19/2025 Assessment & Plan (08/24/2025 2:09 PM EST): Orders: ECG 12-LEAD Assessment & Plan (07/22/2025 2:20 PM EDT): [...] writing. Provider: Margaux Montanez MD Patient: Herlinda Monge : 1960 Date: 09/17/2024 Allergic rhinitis 09/11/2024 [...] frequency of intake to the least frequent Numbness and tingling of both upper extremities [...] pain and has an orthopedics consult at [facility] this week. She is up to date [...] body I suggested her to contact [facility] at [facility] [place]. Mouth sores 03/20/2022 Assessment & [...] SLE-Sjogren overlap syndrome 10/21/2020 Assessment & Plan (08/24/2025 2:09 PM EST): On methotrexate and Plaquenil through rheumatology. If there is any requirement for Plaquenil holiday, I defer to Dr. Montanez. Assessment & Plan (07/23/2025 8:00 AM EDT): [...] recent labs from late July 2024 at [facility] quite stable on current [...] recent labs from late July 2024 at [facility] quite stable on current [...] (11/28/2023 9:30 AM EST): Clinically and laboratory chidlers stable on current regimen. Get labs monitoring [...] thyroid hormone. Will communicate about labs through [place]. Reviewed symptoms of under and over replacement, patient to call if concerns. Follow-up in 6 months Assessment & Plan (04/23/2023 4:46 PM EDT): Establish care with endocrinology this fall as scheduled. For now, continue current dose of levothyroxine as last TSH was improved and she has not symptoms of over- or under-repletion. Assessment & Plan (07/22/2022 11:05 PM EDT): Close follow-up with treating photostatic copy maker exactly as instructed to keep her thyroid function within the optimal range. Assessment & Plan (04/04/2022 11:15 AM EDT): Close follow-up with treating photostatic copy maker exactly as instructed to keep her thyroid [...] therapy and follow-up as scheduled with her photostatic copy maker. Assessment & Plan (08/22/2020 6:54 PM EST): Carefully continue current dose of thyroid replacements therapy and follow-up as scheduled with her photostatic copy maker. Assessment & Plan (05/09/2020 4:52 PM EDT): Carefully continue current dose of thyroid replacements therapy and follow-up as scheduled with her photostatic copy maker. Assessment & Plan (12/18/2019 11:01 AM EDT): [...] TSH on 08/08/2019 was suppressed at 0.05 [place] U/mL. I do not know when her [...] [facility] living Assessment & Plan (11/28/2023 8:05 [...] 8:01 AM EDT): Daily sun protection. See superintendent automotive as scheduled at least every 12 months.-Most recent checkup from February 2025 Free of signs of Plaquenil toxicity She is arranging for ophthalmologic checkup in the nearest future. Assessment & Plan (03/19/2025 9:53 AM EDT): Daily sun protection. See superintendent automotive as scheduled at least every 12 months.-Most recent checkup from February 2025 Free of signs of Plaquenil toxicity She is arranging for ophthalmologic checkup in the nearest future. Assessment & Plan (12/18/2024 1:02 PM EDT): Daily sun protection. See superintendent automotive as scheduled at least every 12 months. She is arranging for ophthalmologic checkup in the nearest future. Assessment & Plan (10/03/2024 7:03 PM EST): Daily sun protection. See superintendent automotive as scheduled at least every 12 months. She is arranging for ophthalmologic checkup in the nearest future. Assessment & Plan (06/06/2024 12:49 PM EDT): Daily sun protection. See superintendent automotive as scheduled at least every 12 months. She is arranging for ophthalmologic checkup in the nearest future. Assessment & Plan (03/23/2024 12:09 PM EDT): Daily sun protection. See superintendent automotive as scheduled at least every 12 months. Assessment & Plan (11/28/2023 9:30 AM EST): Daily sun protection. See superintendent automotive as scheduled at least every 12 months. Assessment & Plan (05/04/2023 2:51 PM EDT): Daily sun protection. See superintendent automotive as scheduled at least every 12 months. Assessment & Plan (10/30/2022 3:44 PM EST): Daily sun protection. See superintendent automotive as scheduled at least every 12 months. Assessment & Plan (06/28/2022 4:12 PM EDT): Daily sun protection. See superintendent automotive as scheduled at least every 12 months. Assessment & Plan (04/04/2022 11:18 AM EDT): Daily sun protection. See superintendent automotive as scheduled at least every 12 months. Assessment & Plan (12/07/2021 4:45 PM EST): Daily sun protection. See superintendent automotive as scheduled. Assessment & Plan (09/08/2021 3:46 PM EST): Daily sun protection. See superintendent automotive as scheduled. Assessment & Plan (05/25/2021 4:46 PM EDT): Daily sun protection. See superintendent automotive as scheduled. Assessment & Plan (03/24/2021 11:21 AM EDT): Daily sun protection. See superintendent automotive as scheduled. Assessment & Plan (01/12/2021 4:02 PM EDT): Daily sun protection. See superintendent automotive as scheduled. Assessment & Plan (10/24/2020 9:02 PM EST): Daily sun protection. See superintendent automotive as scheduled. Assessment & Plan (08/22/2020 6:55 PM EST): Daily sun protection. See superintendent automotive as scheduled. Assessment & Plan (05/09/2020 4:54 PM EDT): Daily sun protection. See superintendent automotive as scheduled. Assessment & Plan (03/28/2020 12:14 PM EDT): Daily sun protection. See superintendent automotive as scheduled. Assessment & Plan (02/05/2020 10:49 AM EDT): Daily sun protection. See superintendent automotive as scheduled. Assessment & Plan (09/11/2019 8:47 AM EST): Daily sun protection. See superintendent automotive as scheduled. Assessment & Plan (07/08/2019 3:06 PM EDT): Daily sun protection. See superintendent automotive as scheduled. Assessment & Plan (03/25/2019 10:21 AM EDT): Daily sun protection. See superintendent automotive as scheduled. Assessment & Plan (12/23/2018 2:36 PM EDT): Daily sun protection. See superintendent automotive as scheduled. Assessment & Plan (11/19/2018 8:58 PM EST): Daily sun protection. Senior Professional Services Consultant as scheduled. Dry mouth 01/04/2018 Calculus of salivary duct 01/04/2018 Essential hypertension 10/08/2017 Assessment & Plan (08/24/2025 2:09 PM EST): Blood pressure is adequately controlled today. Assessment & Plan (06/24/2025 9:03 AM EDT): [...] to next visit-standing orders in [facility]. Consider neurology consult regarding headaches and family [...] efficacy of therapy-standing orders in [facility]. Assessment & Plan (03/19/2025 9:48 AM EDT): Clinically currently well-controlled except L knee, hands and neck soreness and stiffness particularly in the morning. Get labs monitoring safety and efficacy of therapy prior to next visit-standing orders in [facility]. Consider neurology consult regarding headaches and family [...] efficacy of therapy-standing orders in [facility]. Assessment & Plan (12/18/2024 10:06 PM EDT): Clinically currently well-controlled except L knee, hands and neck soreness and stiffness particularly in the morning. Get labs monitoring safety and efficacy of therapy today and prior to next visit-standing orders in [facility]. Consider neurology consult regarding headaches and family [...] efficacy of therapy-standing orders in [facility]. Assessment & Plan (06/17/2024 11:48 AM EDT): Follow up with Dr. Hicks for Sjogren's, asthma. Continue inhalers. Assessment & Plan (06/06/2024 12:47 PM EDT): Clinically currently well-controlled except L knee, hands and neck soreness and stiffness particularly in the morning. Get labs monitoring safety and efficacy of therapy today and prior to next visit-standing orders in [facility]. Consider neurology consult regarding headaches and family [...] efficacy of therapy-standing orders in [facility]. Assessment & Plan (03/14/2024 3:34 PM EDT): Clinically currently well-controlled. Get labs monitoring safety and efficacy of therapy prior to next visit-standing orders in [facility]. Consider neurology consult regarding headaches and family [...] to next visit-standing orders in [facility]. Consider neurology consult regarding headaches and family [...] undergo L TKR under spinal anesthesia at [facility] in October 2025. Call if worse [...] writing. Provider: Margaux Montanez MD Patient: Herlinda Monge : 1960 Date: 12/18/2024 Procedure: After an informed written consent, under sterile conditions using Ethyl chloride spray for local anesthesia I have injected 40 mg Kenalog and 2 cc 1% Lidocaine into Left knee from infero-medial approach uneventfully. Details of post-procedure care were explained to the patient in the office and given in writing. Provider: Margaux Montanez MD Patient: Herlinda Monge : 1960 Date: 12/18/2024 Assessment & Plan [...] every 3-4 months-standing orders in [facility]. Gentle, regular exercise routine. Avoid falls, injuries, [...] at least every 3 months-standing orders in [facility]. Gentle, regular exercise routine. Avoid falls, injuries, [...] at least every 3 months-standing orders in [facility]. Gentle, regular exercise routine. Avoid falls, injuries, [...] writing. Provider: Margaux Montanez MD Patient: Herlinda Monge : 1960 Date: 06/06/2024 Assessment & Plan [...] writing. Provider: Margaux Montanez MD Patient: Herlinda Monge : 1960 Date: 05/04/2023 Assessment & Plan [...] writing. Provider: Margaux Montanez MD Patient: Herlinda Monge : 1960 Date: 03/20/2022 Assessment & Plan [...] writing. Provider: Margaux Montanez MD Patient: Herlinda Monge : 1960 Date: 12/07/2021 Assessment & Plan [...] writing. Provider: Margaux Montanez MD Patient: Herlinda Monge : 1960 Date: 09/08/2021 Assessment & Plan [...] therapy at least every 3 months. 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, assistant terminal manager, current use 10/04/2017 Assessment & Plan (07/23/2025 [...] mixture of 1% lidocaine and 40 mg Rzll-Kjkxgy-jmrheq refer for details to procedure note below. [...] mixture of 1% lidocaine and 40 mg Qgci-Rejtkn-bdqrod refer for details to procedure note below. [...] mixture of 1% lidocaine and 40 mg Impz-Wobfds-hactsm refer for details to procedure note below. [...] mixture of 1% lidocaine and 40 mg Ryeh-Pywmxp-pcnwbz refer for details to procedure note below. 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 She agrees. [...] achieve expected goal consider formal dietary/nutritional support. Class 1 obesity due to exces s calories with serious comorbidity and body mass index (BMI) of 33.0 to 33.9 in adult 03/14/2024 08/24/2025 Assessment & Plan (06/24/2025 9:03 AM EDT): [...] gain. 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 Given active and chronic GI symptoms, I [...] manifestation of SLE but will ask her in home aide to weigh in. Unfortunately, the wait for [...] one of the aspiration procedures. Improved-followed by wireless sales representative and marine steam fitter helper. Assessment & Plan (06/17/2024 11:46 AM EDT): S/P repair 2022. Await EGD this week. Assessment & Plan (06/06/2024 12:52 PM EDT): Corrected surgically in November 2022 with subsequent pleural effusions, vasovagal reaction upon one of the aspiration procedures. Improved-followed by wireless sales representative and marine steam fitter helper. Assessment & Plan (02/28/2022 4:42 PM EDT): [...] Encounters Date Type Department Care Team Description 08/24/2025 1:30 PM EST Office Visit [address] [place] [address] Eunice Sanz CNP Pre-operative cardiovascular examination (Primary Dx); Primary osteoarthritis of both knees; Essential hypertension; Abnormal electrocardiogram; SLE-Sjogren overlap syndrome; Class 1 obesity due to excess calories with serious comorbidity and body mass index (BMI) of 32.0 to 32.9 in adult 08/24/[address] [place] [address] Praveena Valadez MA Medication Refill 08/24/[address] [place] [address] Tierra Hannah LPN EKG Question 08/13/[address] [place] [address] Eunice Sanz CNP Medication Refill 08/07/2025 Orders Only [address] [place] [address] ProviderCesario MD 08/05/2025 Patient Outreach [facility] [address] [place] [address] Izzy Hackett Care Coordination (General outreach) 07/27/[address] [place] [address] Xiao Mckeon RN Results 07/24/2025 Refill [facility] Rheumatology [address] [place] [address] [place] [address] Margaux Montanez MD Medication Refill 07/24/2025 Orders Only [address] [place] [address] Eunice Sanz CNP 07/23/2025 8:00 AM EDT Office Visit [facility] Rheumatology [address] [place] [address] [place] [address] Margaux Montanez MD SLE-Sjogren overlap syndrome (Primary Dx); Sjogren's syndrome with lung involvement; Inflammatory arthritis; Primary osteoarthritis involving multiple joints; 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, assistant terminal manager, current use; Long-term use of Plaquenil; Fibromyalgia; Gastroesophageal reflux disease with esophagitis without hemorrhage; Vitamin D insufficiency; PTSD (post-traumatic stress disorder); On selective serotonin reuptake inhibitor (SSRI) therapy; Class 1 obesity due to excess calories with serious comorbidity and body mass index (BMI) of 31.0 to 31.9 in adult 07/23/2025 Orders Only [address] [place] [address] Eunice Sanz CNP Essential hypertension; Encounter for medication monitoring 07/22/2025 1:30 PM EDT Office Visit [address] [place] [address] Eunice Sanz CNP Screening for malignant neoplasm of cervix (Primary Dx); Primary osteoarthritis of both knees 07/16/2025 Telephone [facility] Pulmonary, Allergy and Critical Care Medicine [address] [place] [address] Lester Hicks MD Appointment 07/06/2025 Enrollment [facility] [address] [place] [address] 07/06/2025 Refill [facility] Pulmonary, Allergy and Critical Care Medicine [address] [facility] [place] [address] Lester Hicks MD Medication Refill 07/03/[address] [place] [address] Eunice Sanz CNP Lab sample 06/25/2025 7:33 AM EDT - 06/25/2025 11:59 PM EDT Hospital Encounter [facility] [address] [place] [address] Eunice Sanz CNP Discharge Disposition: Home or Self Care 06/24/2025 8:00 AM EDT Office Visit [address] [place] [address] Eunice Sanz CNP Encounter for general adult [...] Needs flu shot; Immunization counseling 06/18/[address] [place] [address] Eunice Sanz CNP Medication Refill 06/05/2025 Refill [facility] Rheumatology [address] [place] [address] [place] [address] Margaux Montanez MD Medication Refill 06/01/2025 Patient Outreach [facility] [address] [place] [address] Neisha Pinto, RANDI Care Coordination ([facility] Follow up outreach, [facility] transition letter ) 06/17/2024 Procedure [facility], [address] [address] from Last 3 Months Immunizations Immunization Administration [...] high school, GED, job training, learning the Mohawk language, technical skills, or developing parenting skills)? [...] F) 08/24/2025 1:28 PM EST Respiratory Rate 16 03/12/2025 2:30 PM EDT Oxygen Saturation 97% 08/24/2025 1:28 PM EST Inhaled Oxygen Concentration 20.7% 02/2025 11:28 AM EDT Weight 80.6 kg (177 lb 12.8 oz) 08/24/2025 1:28 PM EST Height 158.5 cm (5' 2.4 ) 08/24/2025 1:28 PM EST Body Mass Index 32.1 08/24/2025 1:28 PM EST Plan of Treatment Upcoming Encounters Date Type Department Care Team (Late st Contact Info) Description 09/10/2025 9:00 AM EST Office Visit [facility] [address] [place] [address] Unknown, Unknown, Shreyas Limon MD [address] [place] [address] 09/21/2025 2:30 PM EST Office Visit [facility] Pulmonary, Allergy and Critical Care Medicine [address] [place] [address] Lester Hicks MD [address] [place] [phone] 10/07/2025 7:15 AM EST Appointment [facility] [address] [place] [address] Lester Hicks MD [address] [place] [phone] 10/13/2025 9:20 AM EST Office Visit [facility] [address] [place] [address] Doretha Glynn MD [address] [place] [phone] [email or web address] 12/22/2025 8:30 AM EDT Office Visit [address] [place] [address] Eunice Sanz, BOOSTER ASSEMBLER [address] [place] [address], [address] [place] [address] [email or web address] 06/30/2026 8:00 AM EDT Office Visit [address] [place] [address] Eunice Sanz, BOOSTER ASSEMBLER [address] [place] [address], [address] [place] [address] [email or web address] Health Maintenance Due Date Last Done Comments COLOGUARD 2007 FOBT 2007 SIGMOIDOSCOPY 2007 VIRTUAL COLONOSCOPY 2007 FIT TEST 04/15/2021 04/15/2020 COVID-19 VACCINE ( season) 2025 08/03/2021, 03/09/2021, 02/16/2021 LIPID PANEL 12/08/2025 12/08/2020 TSH LEVEL 12/10/2025 12/10/2024, 09/09, 02/26/2024, Additional history exists BLOOD PRESSURE 02/21/2026 08/24/2025 Adult Td,Tdap Booster 06/13/2026 06/13/2016 COLONOSCOPY 06/20/2026 06/20/2024, 07/17/2017 COLORECTAL CANCER SCREENING 06/20/2026 DEPRESSION SCREENING 06/23/2026 06/23/2025, 10/29/19 24 CREATININE LEVEL 08/24/2026 08/24/2025, 04/2025, 03/12/2025, Additional history exists POTASSIUM LEVEL 08/24/2026 08/24/2025, 06/0 02/2025, 02/26/2024, Additional history exists MAMMOGRAM 06/25/2027 06/25/2025, 03/3 , 07/27/2021, Additional history exists SCREENING FOR DIABETES 03/12/2028 03/12/2025 PAP SMEAR 07/22/2030 07/22/2025, 06/08, 11/11/2019 HEPATITIS C SCREENING Completed 07/14/2014 HIV ONE-TIME SCREENING (18-65 YEARS) Completed 07/14/2014 ZOSTER VACCINES Completed 11/23/2020, 05/23/2020 RSV VACCINE Completed 07/04/2023 PNEUMOCOCCAL VACCINES (50+ years) Completed 06/17/2024, 06/22/2016, 06/11/2014 INFLUENZA VACCINE Completed 06/24/2025, , 07/04/2023, Additional history exists SMOKING STATUS SCREENING (Once After 26 Yrs) Completed 08/24/2025 HEPATITIS A VACCINES Aged Out No long [...] cardiovascular examination Primary osteoarthritis of both knees OUTSIDE IMAGING Routine 08/07/2025 4:14 PM EDT [...] syndrome with lung involvement Inflammatory arthritis 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, assistant terminal manager, current use BASIC METABOLIC PANEL (BMP) STAT [...] Recently Relevant to Health Maintenance Results * ECG 12-LEAD (08/24/2025 1:38 PM EST) Only the most recent of2 resultswithin the time period is included. Narrative EXTERNAL NON-INTERFACED REF LAB - 08/24/2025 1:38 PM EST Type of EKG: Standard. Global (51394). Notes Sinus rhythm, possible LVH. Nonspecific T wave changes. QTc 399 ms. No significant changes from 06/2025. us Eunice Sanz BOOSTER ASSEMBLER ECG ORDERABLES Edited Re sult - Final EXTERNAL NON-INTERFACED REF LAB * Outside Imaging Report Only (08/07/2025 4:14 PM EDT) Historical Provider MD MOSS XR CHEST Final Res ult * Outside Echo Report Only (07/22/2025 8:44 AM EDT) Eunice Sanz BOOSTER ASSEMBLER CV ECHO ORDERABLES Final Result * Pap Test (07/22/2025 12:00 AM EDT) Only the most recent of2 resultswithin the time period is included. 07/22/2025 07/23/2025 9:2 3 AM EDT Narrative SEE NARRATIVE - 07/30/2025 1:38 [place] [address] Junction Maker: Dilan Sams MD TOUR MANAGER Cytology Report FINAL DIAGNOSIS A. PAP SMEAR (THIN PREP) CE: SPECIMEN ADEQUACY: Satisfactory for evaluation; limited squamous cellularity. Limited by inflammation INTERPRETATION: NEGATIVE FOR INTRAEPITHELIAL LESION OR MALIGNANCY. This specimen was analyzed by the automated ThinPrep Imaging System ([employer].) and manually rescreened by a study abroad advisor and/or pathologist. Electronically Signed Out By: BRITT [...] PAP SMEAR (THIN PREP) CE Patient Name: MILLICENTKAVEHCASIEHERLINDA : 1960 (Age: 65) Sex: F Institution: [facility] Location: [facility] Date of Collection: 07/22/2025 Date of Reported: 07/30/2025 13:38 Results to: Eunice Sanz MSN Eunice Carmennathan BOOSTER ASSEMBLER CYTOLOGY ORDERABLES Final Result SEE NARRATIVE * [...] of the results and recommendations. Eunice Sanz BOOSTER ASSEMBLER IMG MG EXAMS Final Res ult * Comprehensive metabolic panel (05/14/2025 3:12 PM EDT) Blood Margaux Montanez MD LAB BLOOD BKR ORDERABLES Final Result Performing Organization Address [facility] de Phone Number EXTERNAL NON-INTERFACED REF LAB * Basic metabolic panel (03/12/2025 6:10 AM EDT) SODIUM 142 136 - 145 mmol/L [facility] POTASSIUM 3.4 3.4 - 5.1 mmol/L [facility] CHLORIDE 103 98 - 107 mmol/L [facility] CO2 31 22 - 31 mmol/L [facility] BUN 11 6 - 23 mg/dL [facility] CREATININE 0.80 0.50 - 1.20 mg/dL [facility] GLUCOSE 84 70 - 100 mg/dL [facility] CALCIUM 9.7 8.8 - 10.7 mg/dL [facility] EGFR 83 >59 mL/min/1.7 3m2 [facility] Comment:Estimated glomerular filtration rate calculated using the CKD-EPI refit equation. ANION GAP 8 7 - 17 mmol/L [facility] 03/12/2025 6:10 AM EDT 03/12/2025 6:48 AM EDT Lj Moscoso MD, MPH LAB BLOOD BKR ORDERABLES Fi nal Result Performing Organization Address [facility] Co de Phone Number [facility] [address] [place] [address] * TSH (12/10/2024 4:12 PM EST) Blood Doretha Glynn MD LAB BLOOD BKR ORDERABLES Final Result Performing Organization Address City/[facility]/ZIP Co de Phone Number EXTERNAL NON-INTERFACED REF LAB * ENDOSCOPY, COLON (06/20/2024 9:51 AM EDT) Narrative Transcriptions Shreyas Murphy MD - 06/20/2024 9:51 AM EDT [facility] Patient Name: Herlinda Pittlisette Attending MD:: SHREYAS MURPHY MD, Procedure Date: 06/20/2024 9:51 AM Date of : 1960 Age: 64 Admit Type: Outpatient Gender: Female Room: [place] [address] Referring MD: EUNICE SANZ Exam Type: Colonoscopy [...] 9:51 AM Procedure Code(s): --- Professional --- 51988, Colonoscopy, flexible; with biopsy, single or multiple --- Technical --- 35864, Colonoscopy, flexible; with biopsy, single or multiple Diagnosis Code(s): --- Professional --- K52.9, Noninfective gastroenteritis and colitis, unspecified --- Technical --- K52.9, Noninfective gastroenteritis and colitis, unspecified CPT copyright 2021 [employer]. All rights reserved. The codes documented in this report are preliminary and upon inpatient coder reviewmay be revised to meet current compliance requirements. Procedure Date: 06/20/2024 9:51:[address] [place] [address] Eunice Sanz [facility] GI PROCEDURE ORDERABLES F inal Result * (ABNORMAL) Lipid panel (12/08/2020 4:37 PM EST) HDL 60 mg/dL [facility] Comment: Interpretation <40 mg/dL: Low HDL cholesterol (major risk factor for CHD) Greater than or equal to 60 mg/dL: High HDL cholesterol ( negative risk factor for CHD) HDL - cholesterol is affected by a number of factors, e.g. smoking, excerise, hormones, sex and age. CHOLESTEROL 192 0 - 240 mg/dL [facility] TRIGLYCERIDES 139 30 - 160 mg/dL [facility] LDL 104 50 - 129 mg/dL [facility] Comment: LDL levels in terms of risk for coronary heart disease: <100 mg/dL: Optimal 100-129 mg/dL: Near or above optimal 130-159 mg/dL: Borderline high 160-189 mg/dL: High >190 mg/dL: Very High CARDIAC RISK RATIO 3.2(L) 3.3 - 4.4 C [facility] Blood 12/08/2020 4:37 PM EST 12/08/2020 4:45 PM EST us Mamta Whitney DO LAB BLOOD BKR ORDERABLES F inal Result [address] [address] * Fecal immunochemical test x1 (FIT) (04/15/2020 8:00 AM EDT) Immuno Fecal Occult Negative [facility] Stool (Stool) 04/15/2020 8:0 0 AM EDT 04/15/2020 4:23 PM EDT Alise Winkler PA-C LAB BODY FLUIDS AND STOOL ORDER AZUL Final Result Performing Organization Address City/[facility]/ZIP Co de Phone Number [address] [address] * Outside Hepatitis C Virus Screening (07/14/2014) Hepatitis C Screening - External Neg us Historical Provider LAB BLOOD ORDERABLES Ibis l Result * OUTSIDE HIV TEST (07/14/2014) HIV - External Neg Historical Provider LAB BLOOD ORDERABLES Ibis l Result from Last 3 Months or Most Recently Relevant to Health Maintenance [place] [address] [place] [address] [employer] Member Subscriber Plan / Payer ( fective 2023-) Name:Herlinda Monge Relation to Subscriber:Self Name:Herlinda Monge Payer ID:[id number] (NAIC) Type:PPO Address: [address] [employer] Advance Directives For more information, please contact: [phone] (9AM - 5PM [facility], Sunday-Sunday) Documents on File Type Date Recorded Patient Metal Tank Erector Expl anation Healthcare Proxy 11/21/2022 3:55 PM [...] Code Status Confirmed With: Patient Care Teams Hop Weigher Relationship Specialty Start Date End Date Eunice Sanz CNP [address] [place] [address], [address] [place] [address] PCP - General Family Medicine 02/11/21 Lester Hicks MD [address] [place] [address] [email or web address] Historical LMR Provider 07/28/17 Margaux Montanez MD [address] [place] [address], [address] [place] [address] Historical LMR Provider 07/28/17 Khang Kilgore MD [address] [place] [address], [address] [place] [address] Insurance Assigned Provider 01/12/24 Shreyas Murphy MD [address] [place] [address] Gastroenterology 06/17/24 Doretha Glynn MD [address] [place] [address] Endocrinology 06/17/24 Radha Pereira, RN [address] [place] [address] [email or web address] PHC Business Services OfficerZoning Engineer 06/11/25 Additional Source Comments The information contained in this document represents components of the legal health record. It is not the complete legal health record.[facility]
--- OUTSIDE RECORDS SUMMARY | 2025-08-26 16:42 | XMS_ITS | Clinical Summary ---
Author Organization [facility] Address [address] [place] [address] Care Team Providers Care Property Worker Name Role Phone Unavailable Primary Care Provider [...]
--- OUTSIDE RECORDS SUMMARY | 2025-08-26 16:43 | XMS_ITS | Encounter Summary ---
Author Organization [facility] Address [address] [place] [address] [place] [address] Phone Care Team Providers Care Sugar Trucker Name Role Phone Tricia Baldreas DO Unavailable Lester Hicks MD Unavailable [phone] Margaux Montanez MD Unavailable Demario Floyd MD Unavailable Pam Benson MD Unavailable [phone] Adithya Campos STATEMENT PROCESSOR Unavailable Beatriz Donaldson OUT AND OUT CIGAR MAKER HAND Unavailable Beatriz Donaldson OUT AND OUT CIGAR MAKER HAND Primary Care Provider Mamta Whitney DO Primary Care Provider [phone] Mamta Whitney DO Primary Care Provider [phone] Johann Hanson STATEMENT PROCESSOR Primary Care Provider [phone] Khang Kilgore MD Unavailable Luis Ignacio DO Unavailable Flo Esteban MD Unavailable Dilan Rowland MD Unavailable [phone] Corby Prado MD Unavailable [phone] Neisha Pinto RN Unavailable [email or web address] Shreyas Wilson MD Unavailable Doretha Glynn MD Unavailable [phone] Izzy Hackett Unavailable [email or web address] Radha Pereira RN Unavailable [phone] Jv Liz Unavailable Encounter Details Date Type Department Care Team (Late Contact Info) Description 06/21/2018 Transcribe Orders [facility] Specimen Processing [address] [place] [address] Beatriz Donaldson, OUT AND OUT CIGAR MAKER HAND [address] [place] [address] Routine general medical examination at a health care facility (Primary Dx); Sjogren's syndrome with lung involvement; Inflammatory arthritis; 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, long-term, current use Social History Tobacco Use Types [...] Department Care Team (Late Contact Info) Description 09/10/2025 9:00 AM EST Office Visit [facility] Gastroenterology [facility] [address] [place] [address] Unknown, Unknown, Shreyas Limon MD [address] [address] [email or web address] 09/21/2025 2:30 PM EST Office Visit [facility] Pulmonary, Allergy and Critical Care Medicine 10 [facility] [place] [address] Lester Hicks MD [address] [place] [address] 10/07/2025 7:15 AM EST Appointment [facility] PFT Lab [address] [place] [address] Lester Hicks MD [address] [place] [address] 10/13/2025 9:20 AM EST Office Visit [facility] Endocrinology [address] [place] [address] Doretha Glynn MD [address] [place] [address] [email or web address] 12/22/2025 8:30 AM EDT Office Visit [address] [place] [address] Johann Hanson, STATEMENT PROCESSOR [address] [place] [address], [address] [place] [address] [email or web address] 06/30/2026 8:00 AM EDT Office Visit [address] [place] [address] Johann Hanson STATEMENT PROCESSOR [address] [place] [address], [address] [place] [address] [email or web address] documented as of this encounter Procedures Procedure Name Priority Date/Time Associated Diagnosis Comments IRON Routine 06/21/2018 4:35 PM EDT Routine general medical examination at a health care facility COMPREHENSIVE METABOLIC PANEL (CMP) Routine 06/21/2018 4:35 PM EDT Sjogren's syndrome with lung involvement Inflammatory arthritis 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, rodent exterminator, current use SEDIMENTATION RATE (ESR) Routine 06/21/2018 4:35 PM EDT Sjogren's syndrome with lung involvement Inflammatory arthritis 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, rodent exterminator, current use CBC AND DIFFERENTIAL Routine 06/21/2018 4:35 PM EDT Sjogren's syndrome with lung involvement Inflammatory arthritis 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, long-term, current use COMPLEMENT C3 Routine 06/21/2018 4:35 PM EDT Sjogren's syndrome with lung involvement Inflammatory arthritis 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, rodent exterminator, current use COMPLEMENT C4 Routine 06/21/2018 4:35 PM EDT Sjogren's syndrome with lung involvement Inflammatory arthritis 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, rodent exterminator, current use C-REACTIVE PROTEIN (CRP) Routine 06/21/2018 4:35 PM EDT Sjogren's syndrome with lung involvement Inflammatory arthritis 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, rodent exterminator, current use THYROID STIMULATING HORMONE (TSH) Routine 06/21/2018 4:35 PM EDT Routine general medical examination at a health care facility FERRITIN Routine 06/21/2018 4:35 PM EDT Routine general medical examination at a health care facility documented in this encounter Results * Complement C4 (06/21/2018 4:35 PM EDT) COMPLEMENT C4 23 14 - 40 mg/dL [facility] DPT OF LAB MED AND PAT+ Blood 06/21/2018 4:35 PM EDT 06/22/2018 1:28 PM EDT us Margaux Montanez MD LAB BLOOD BKR ORDERABLES Final Result [facility] DPT OF LAB MED AND PAT+ [address] [place] [address] * Complement C3 (06/21/2018 4:35 PM EDT) COMPLEMENT C3 116 75 - 175 mg/dL [facility] DPT OF LAB MED AND PAT+ Blood 06/21/2018 4:35 PM EDT 06/22/2018 1:28 PM EDT us Margaux Montanez MD LAB BLOOD BKR ORDERABLES Final Result [facility] DPT OF LAB MED AND PAT+ [address] [place] [address] * Sedimentation rate (ESR) (06/21/2018 4:35 PM EDT) Pathologist [facility] ESR 4 0 - 30 mm/h [facility] Blood 06/21/2018 4:35 PM EDT 06/21/2018 5:56 PM EDT us Margaux Montanez MD LAB BLOOD BKR ORDERABLES Final Result Performing Organization Address City/[facility]/ZIP Co de Phone Number [address] [address] * C-Reactive Protein (06/21/2018 4:35 PM EDT) Pathologist [facility] C REACTIVE PROTEIN 0.5 0.0 - 4.0 mg/L [facility] Blood 06/21/2018 4:35 PM EDT 06/21/2018 5:56 PM EDT us Mragaux Montanez MD LAB BLOOD BKR ORDERABLES Final Result [address] [address] * Comprehensive metabolic panel (06/21/2018 4:35 PM EDT) SODIUM 144 133 - 146 mmol/L [facility] POTASSIUM 3.6 3.3 - 5.1 mmol/L [facility] CHLORIDE 100 96 - 108 mmol/L [facility] CO2 30 21 - 35 mmol/L [facility] BUN 13 6 - 19 mg/dL [facility] CREATININE 0.70 0.5 - 1.5 mg/dL [facility] GLUCOSE 89 70 - 99 mg/dL [facility] ALBUMIN 4.3 3.9 - 4.8 g/dL [facility] TOTAL PROTEIN 6.7 6.5 - 8.0 g/dL [facility] CALCIUM 9.9 8.4 - 10.3 mg/dL [facility] ALKALINE PHOSPHATASE 59 39 - 117 U/L [facility] TOTAL BILIRUBIN 0.2 0.0 - 1.2 mg/dL [facility] AST 22 0 - 37 U/L [facility] ALT 16 0 - 40 U/L [facility] GLOBULIN 2.4 1 - 4.8 g/dL [facility] EGFR 97 >59 mL/min/1.7 3m2 [facility] Comment:If patient is black, multiply result by 1.159. Estimated glomerular filtration rate calculated using the CKD-EPI equation. ANION GAP 18 10 - 20 mmol/L [facility] Blood 06/21/2018 4:35 PM EDT 06/21/2018 5:56 PM EDT us Margaux Montanez MD LAB BLOOD BKR ORDERABLES Final Result [address] [address] * CBC and differential (06/21/2018 4:35 PM EDT) WBC 5.00 3.40 - 11.20 K/uL [facility] RBC 4.23 3.80 - 4.80 M/uL [facility] HGB 13.2 12.0 - 15.0 g/dL [facility] HCT 39.5 36.0 - 46.0 % [facility] PLT 229 130 - 400 K/uL [facility] MCV 93.4 79.0 - 98.0 fL [facility] MCH 31.2 27.0 - 34.8 pg [facility] MCHC 33.4 31.5 - 36.0 g/dL [facility] RDW 12.9 10.8 - 14.6 % [facility] MPV 10.5 9.4 - 12.4 fl [facility] NRBC 0.00 /100 WBCs [facility] ABSOLUTE NRBC 0.00 K/uL [facility] DIFF METHOD Auto [facility] NEUTS 53.8 45.30 - 77.70 % [facility] LYMPHS 34.4 12.30 - 39.70 % [facility] MONOS 8.2 4.10 - 12.80 % [facility] EOS 2.6 0 - 7.2 % [facility] BASOS 0.8 0 - 2.80 % [facility] Granulocytes, immature (%) 0.2 0.0 - 0.9 % [facility] ABSOLUTE NEUTS 2.69 1.40 - 7.70 K/uL [facility] ABSOLUTE LYMPHS 1.72 0.60 - 3.20 K/uL [facility] ABSOLUTE MONOS 0.41 0.11 - 0.59 K/uL [facility] ABSOLUTE EOS 0.13 0.01 - 0.50 K/uL [facility] ABSOLUTE BASOS 0.04 0.00 - 0.08 K/uL [facility] Granulocytes, immature 0.01 0.00 - 0.05 K/uL [facility] Blood 06/21/2018 4:35 PM EDT 06/21/2018 5:56 PM EDT us Margaux Montanez MD LAB BLOOD BKR ORDERABLES Final Result [address] [address] * Ferritin (06/21/2018 4:35 PM EDT) FERRITIN 43 13 - 150 ug/L [facility] Blood 06/21/2018 4:35 PM EDT 06/21/2018 5:56 PM EDT us Beatriz Donaldson NP LAB BLOOD BKR ORDERABLES Fin al Result [address] [address] * Iron (06/21/2018 4:35 PM EDT) IRON 64 30 - 160 ug/dL [facility] Blood 06/21/2018 4:35 PM EDT 06/21/2018 5:56 PM EDT us Beatriz Donaldson OUT AND OUT CIGAR MAKER HAND LAB BLOOD ORDERABLES Final R esult Performing Organization Address City/[facility]/ZIP Co de Phone Number [address] [address] * (ABNORMAL) TSH (06/21/2018 4:35 PM EDT) TSH 0.04(L) 0.27 - 4.20 uIU/mL [facility] Blood 06/21/2018 4:35 PM EDT 06/21/2018 5:56 PM EDT us Beatriz Donaldson OUT AND OUT CIGAR MAKER HAND LAB BLOOD BKR ORDERABLES Fin al Result Performing Organization Address [facility] Co de Phone Number [address] [address] documented in this encounter Visit Diagnoses Diagnosis Routine general medical examination at a health care facility- Primary Sjogren's syndrome with lung involvement Inflammatory arthritis Unspecified inflammatory polyarthropathy 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, long-term, current use documented in this encounter Additional Health Concerns Infection Onset Date Last Indicated Resolved Time CoV-Presumed 05/27/2022 05/27/2022 06/17/2022 1:21 AM EDT CoV-Presumed Comment:COVID-19 Added 10/12/2022 10/12/2022 10/13/2022 6:26 P M EST COVID-19 10/13/2022 10/13/2022 11/03/2022 1:21 AM EST COVID-19 10/07/2023 10/07/2023 10/28/2023 1:21 AM EST documented as of this encounter Care Teams Sugar Trucker Relationship Specialty Start Date End Date Beatriz Donaldson, OUT AND OUT CIGAR MAKER HAND [address] [place] [address] PCP - General Family Medicine 10/04/17 04/11/20 Mamta Whitney DO [address] [place] [address] [email or web address] PCP - General Family Medicine 04/12/20 02/08/21 Mamta Whitney DO [address] [place] [address] [email or web address] PCP - General Family Medicine 02/10/21 02/10/21 Johann Hanson CNP [address] [place] [address], [address] [place] [address] [email or web address] PCP - General Family Medicine 02/11/21 Tricia Balderas DO [address] [place] [address] [email or web address] Historical LMR Provider 07/28/17 10/15/21 Lester Hicks MD [address] [place] [address] [email or web address] Historical LMR Provider 07/28/17 Margaux Montanez MD [address] [facility], [address] [place] [address] [email or web address] Historical LMR Provider 07/28/17 Demario Floyd MD [address] [place] [address] [email or web address] Historical LMR Provider 07/28/17 10/15/21 Pam Benson MD [address] [place] [address] Historical LMR Provider 07/28/17 10/15/21 Adithya Campos, STATEMENT PROCESSOR [address] [place] [address] [email or web address] Historical LMR Provider 07/28/17 12/25/21 Beatriz Donaldson NP [address] [place] [address] Historical LMR Provider 07/28/17 04/11/20 Khang Kilgore MD [address] [place] [address], [address] [place] [address] [email or web address] Insurance Assigned Provider 01/12/24 Luis Ignacio DO [address] [place] [address], [address] [place] [address] Cardiology 06/28/22 06/16/24 Flo Esteban MD [address] [place] [address] [email or web address] [email or web address] Surgery 06/28/22 06/16/24 Dilan Rowland MD [address] [place] [address], [address] [place] [address] Insurance Assigned Provider 07/15/22 08/13/22 Corby Prado MD [address] [place] [address], [address] [place] [address] [email or web address] Insurance Assigned Provider 08/13/22 09/16/22 Neisha Pinto RN [address] [facility], [address] [place] [address] [email or web address] PHCM Smelter Liner 02/26/23 06/10/25 Shreyas Wilson MD [address] [place] [address] [email or web address] Gastroenterology 06/17/24 Doretha Glynn MD [address] [place] [address] [address] [place] [address] [email or web address] Endocrinology 06/17/24 Izzy Hackett [address] [place] [address] [email or web address] PHC Community Auto Hauler 09/11/24 09/11/24 Radha Pereira, RANDI [address] [place] [address] [email or web address] PHCM Smelter LinerSpray Dyer 06/11/25 Jv Liz [address] [place] [address] [email or web address] Cutter Operator Helper 08/12/25 08/12/25 documented as of this encounter Additional Source Comments The information contained in this document represents components of the legal health record. It is not the complete legal health record.[facility]
--- OUTSIDE RECORDS SUMMARY | 2025-08-26 16:43 | XMS_ITS | Encounter Summary ---
Author Organization [facility] Address [address] [facility] [address] [place] [address] Phone Care Team Providers Care Casing In Line Feeder Name Role Phone Lester Hicks MD Unavailable [phone] Margaux Montanez MD Unavailable Johann Hanson CNP Primary Care Provider [phone] Khang Kligore MD Unavailable Luis Ignacio DO Unavailable Flo Esteban MD Unavailable [phone] Dilan Rowland MD Unavailable [phone] Corby Prado MD Unavailable [phone] Neisha Pinto RN Unavailable [email or web address] Shreyas Wilson MD Unavailable [phone] Doretha Glynn MD Unavailable [phone] Izzy Hackett Unavailable [email or web address] Radha Pereira RN Unavailable [phone] Jv Liz Unavailable Encounter Details Date Type Department Care Team (Late st Contact Info) Description 02/28/2022 Procedure Pass [facility], Ct Scan - [address] [address] Social History Tobacco Use Types Packs/Day Years [...] [facility]astro[facility]ology [facility] 10 [place] [address] Unknown, Unknown, Shreyas Limon MD [address] [address] 09/21/2025 2:30 PM EST Office Visit [facility] Pulmonary, Allergy and Critical Care Medicine 10 [place] [address] Lester Hicks MD [address] [place] [address] 10/07/2025 7:15 AM EST Appointment [facility] PFT Lab 30 [place] [address] Lester Hicks MD [address] [place] [address] 10/13/2025 9:20 AM EST Office Visit [facility] Endocrinology [address] [place] [address] Doretha Glynn MD [address] [place] [address] [email or web address] 12/22/2025 8:30 AM EDT Office Visit [address] [place] [address] Johann Hanson, HEEL SEAT POUNDER [address] [place] [address], [address] [address] [email or web address] 06/30/2026 8:00 AM EDT Office Visit [address] [place] [address] Johann Hanson, HEEL SEAT POUNDER [address] [place] [address], [address] [address] [email or web address] documented as of this encounter Visit Diagnoses Not on filedocumented in this encounter Additional Health Concerns Infection Onset Date Last Indicated Resolved Time CoV-Presumed 05/27/2022 05/27/202206/17/2022 1:21 AM EDT CoV-Presumed Comment:COVID-19 Added 10/12/2022 10/12/2022 10/13/2022 6:26 P M EST COVID-19 10/13/2022 10/13/2022 11/03/2022 1:21 AM EST COVID-19 10/07/2023 10/07/2023 10/28/2023 1:21 AM EST Assessment Noted Time PHQ-2 Depression Total Score: 2 02/25/20 11:48 AM EDT documented as of this encounter Care Teams Casing In Line Feeder Relationship Specialty Start Date End Date Johann Hanson CNP [address] [place] [address], [address] [place] [address] PCP - General Family Medicine 02/11/21 Lester Hicks MD [address] [place] [address] Historical LMR Provider 07/28/17 Margaux Montaenz MD [address] [place] [address], [address] [place] [address] [email or web address] Historical LMR Provider 07/28/17 Khang Kilgore MD [address] [place] [address], [address] [place] [address] Insurance Assigned Provider 01/12/24 Luis Ignacio DO [address] [place] [address], [address] [place] [address] Cardiology 06/28/22 06/16/24 Flo Esteban MD [address] [place] [address] [place] [address] [email or web address] Cardiothoracic Surgery 06/28/22 06/16/24 Dilan Rowland MD [address] [place] [address], [address] [place] [address] Insurance Assigned Provider 07/15/22 08/13/22 Corby Prado MD [address] [place] [address], [address] [place] [address] [email or web address] Insurance Assigned Provider 08/13/22 09/16/22 Neisha Pinto RN [address] [place] [address], [address] [place] [address] [email or web address] PHCM Rn Document Improvement Specialist 02/26/23 06/10/25 Shreyas Wilson MD [address] [place] [address] Gastroenterology 06/17/24 Doretha Glynn MD [address] [place] [address] 3rd [place] [address] Endocrinology 06/17/24 Izzy Hackett [address] [place] [address] [email or web address] PHCM Community Nature Photographer 09/11/24 09/11/24 Radha Pereira, RANDI [address] [place] [address] PHCM Rn Document Improvement SpecialistCrude Oil Driver 06/11/25 Jv Liz [address] [place] [address] (work) [email or web address] Skip Miner 08/12/25 08/12/25 documented as of this encounter Additional Source Comments The information contained in this document represents components of the legal health record. It is not the complete legal health record.[facility]
--- OUTSIDE RECORDS SUMMARY | 2025-08-26 16:43 | XMS_ITS | Encounter Summary ---
Author Organization [facility] Address [address] [place] [address] [place] [address] Phone Care Team Providers Care Middle School Counselor Name Role Phone Tricia Balderas DO Unavailable Lester Hicks MD Unavailable [phone] Margaux Montanez MD Unavailable Demario Floyd MD Unavailable Pam Benson MD Unavailable Adithya Campos GOVERNMENT GAUGER Unavailable Mamta Whitney DO Primary Care Provider [phone] Mamta Whitney DO Primary Care Provider [phone] Johann Hanson GOVERNMENT GAUGER Primary Care Provider [phone] Khang Kilgore MD Unavailable Luis Ignacio DO Unavailable Flo Esteban MD Unavailable [phone] Dilan Rowland MD Unavailable [phone] Corby Prado MD Unavailable [phone] Neisha Pinto RN Unavailable [email or web address] Shreyas Wilson MD Unavailable Doretha Glynn MD Unavailable [phone] Izzy Hackett Unavailable sami Radha Pereira RN Unavailable Jv Liz Unavailable Encounter Details Date Type Department Care Team (Latest Contact Info) Description 04/14/2020 Transcribe Orders [facility] [address] [address] Alise Winkler PA-C [address] [facility], [address] [place] [address] Fatigue, unspecified type (Primary Dx); Diarrhea, unspecified [...] Description 09/10/2025 9:00 AM EST Office Visit [facility] G[facility] 10 [place] [address] Unknown, Unknown, Shreyas Limon MD [address] [place] [address] 09/21/2025 2:30 PM EST Office Visit [facility] Pulmonary, Allergy and Critical Care Medicine 10 [facility] [place] [address] Lester Hicks MD [address] [place] [address] 10/07/2025 7:15 AM EST Appointment [facility] PFT Lab 30 [place] [address] Lester Hicks MD [address] [place] [address] 10/13/2025 9:20 AM EST Office Visit [facility] [address] [place] [address] Doretha Glynn MD [address] [place] [address] [email or web address] 12/22/2025 8:30 AM EDT Office Visit [address] [place] [address] Johann Hanson, GOVERNMENT GAUGER [address] [place] [address], [address] [place] [address] [email or web address] 06/30/2026 8:00 AM EDT Office Visit [address] [place] [address] Johann Hanson, GOVERNMENT GAUGER [address] [place] [address], [address] [place] [address] [email or web address] documented as of this encounter Results * Giardia antigen screen (04/15/2020 4:18 PM EDT) Pathologist [facility] ST GIARDIA ANTIGEN Negative Negative [facility] DPT OF LAB MED AND PAT+ Comment: (NOTE) ADDITIONAL INFORMATION Test Performed by Enzyme Immunoassay. Stool (Stool) 04/15/2020 4:1 8 PM EDT 04/15/2020 4:24 PM EDT Alise Winkler PA-C LAB BODY FLUIDS AND STOOL ORDER AZUL Final Result Performing Organization Address City/[facility]/ZIP Co de Phone Number [facility] DPT OF LAB MED AND PAT+ [address] [place] [address] * Ova and parasites, stool (04/15/2020 8:00 AM EDT) Special Requests None 04/15/2020 4:19 PM EDT [facility] DIRECT EXAM NO PARASITES FOUND BY DIRECT OR CONCENTRATION METHODS 04/26/2020 10:47 AM EDT [facility] DIRECT EXAM No parasites found by Trichrome Stain 04/26/2020 10:47 AM EDT [facility] Stool (Stool) 04/15/2020 8:0 0 AM EDT 04/15/2020 4:24 PM EDT Alise Winkler PA-C LAB BODY FLUIDS AND STOOL ORDER AZUL Final Result Performing Organization Address [facility] Co de Phone Number [address] [address] * Fecal immunochemical test x1 (FIT) (04/15/2020 8:00 AM EDT) [facility] Immuno Fecal Occult Negative [facility] Stool (Stool) 04/15/2020 8:0 0 AM EDT 04/15/2020 4:23 PM EDT Alise Winkler PA-C LAB BODY FLUIDS AND STOOL ORDER AZUL Final Result Performing Organization Address [facility] Co de Phone Number [address] [address] * Fecal leukocyte examination (04/15/2020 8:00 AM EDT) Special Requests None 04/15/2020 4:19 PM EDT [facility] GRAM STAIN No WBC seen on smear. 04/16/2020 8:47 AM EDT [facility] Stool (Stool) 04/15/2020 8:0 0 AM EDT 04/15/2020 4:24 PM EDT Alise Winkler PA-C LAB BODY FLUIDS AND STOOL ORDER AZUL Final Result Performing Organization Address [facility]/ZIP Co de Phone Number [address] [address] * Stool culture (04/15/2020 8:00 AM EDT) Special Requests None 04/15/2020 4:19 PM EDT [facility] Stool Culture NO SALMONELLA, SHIGELLA OR CAMPYLOBACTER ISOLATED 04/16/2020 8:09 AM EDT [facility] Stool (Stool) 04/15/2020 8:0 0 AM EDT 04/15/2020 4:24 PM EDT Alise Winkler PA-C LAB MICROBIOLOGY CULTURE ORDERA BLES Final Result Performing Organization Address [facility]/ZIP Co de Phone Number [address] [address] * Immunoglobulin A (04/14/2020 12:05 PM EDT) Pathologist [facility] IgA 84 70 - 400 mg/dL [facility] Blood 04/14/2020 12:0 5 PM EDT 04/14/2020 12:23 PM EDT Alise Winkler PA-C LAB BLOOD BKR ORDERABLES Final Result Performing Organization Address [facility] Co de Phone Number [address] [address] * Tissue transglutaminase IgA (04/14/2020 12:05 PM EDT) [facility] IGA ANTIBODY <1.2 <4.0 (Negative) U/mL [facility] MED/PATH [address] Blood 04/14/2020 12:0 5 PM EDT 04/14/2020 12:22 PM EDT us Alise Winkler PA-C LAB BLOOD BKR ORDERABLES Final Result [facility] [address] [place] [address] documented in this encounter Visit Diagnoses Diagnosis [...] documented as of this encounter Care Teams Middle School Counselor Relationship Specialty Start Date End Date Mamta Whitney DO [address] [place] [address] [email or web address] PCP - General Family Medicine 04/12/20 02/08/21 Mamta Whitney DO [address] [place] [address] [email or web address] PCP - General Family Medicine 02/10/21 02/10/21 Johann Hanson CNP [address] [place], [place] [address] [place] [address] [email or web address] PCP - General Family Medicine 02/11/21 Tricia Balderas DO [address] [place] [address] [email or web address] Historical LMR Provider 07/28/17 10/15/21 Lester Hicks MD [address] [place] [address] [email or web address] Historical LMR Provider 07/28/17 Margaux Montanez MD [address] [place] [address], [address] [place] [address] [email or web address] Historical LMR Provider 07/28/17 Demario Floyd MD [address] [place] [address] [email or web address] Historical LMR Provider 07/28/17 2 Pam Benson MD [address] [place] [address] Historical LMR Provider 07/28/17 Adithya Campos, GOVERNMENT GAUGER [address] [place] [address] Historical LMR Provider 07/28/17 12/25/21 Khang Kilgore MD [address] [place] [address], [address] [place] [address] [email or web address] Insurance Assigned Provider 01/12/24 Luis Ignacio DO [address] [place] [address], [address] [place] [address] Cardiology 06/28/22 06/16/24 Flo Esteban MD [address] [place], [place] [address] [place] [address] [email or web address] Cardiothoracic Surgery 06/28/22 06/16/24 Dilan Rowland MD [address] [place] [address], [address] [place] [address] Insurance Assigned Provider 07/15/22 08/13/22 Corby Prado MD [address] [place] [address], [address] [place] [address] [email or web address] Insurance Assigned Provider 08/13/22 09/16/22 Neisha Pinto RN [address] [place] [address], [address] [place] [address] [email or web address] PHCM Dust Sampler 02/26/23 06/10/25 Shreyas Wilson MD [address] [place] [address] Gastroenterology 06/17/24 Doretha Glynn MD [address] [place] [address] 3rd [place] [address] Endocrinology 06/17/24 Izzy Hackett [address] [place] [address] [email or web address] PHCM Community Felt Cementer 09/11/24 09/11/24 Radha Pereira, RANDI [address] [place] [address] PHCM Dust SamplerPediatric Associate 06/11/25 Jv Liz [address] [place] [address] (work) [email or web address] General Maintenance Technician 08/12/25 08/12/25 documented as of this encounter Additional Source Comments The information contained in this document represents components of the legal health record. It is not the complete legal health record.[facility]
--- OUTSIDE RECORDS SUMMARY | 2025-08-26 16:43 | XMS_ITS | Encounter Summary ---
Author Organization [facility] Address [address] [place] [address] [place] [address] Phone Care Team Providers Care Dowel Sticker Operator Name Role Phone Lester Hicks MD Unavailable [phone] Margaux Montanez MD Unavailable [phone] Johann Hanson CNP Primary Care Provider [phone] Khang Kilgore MD Unavailable Luis Ignacio DO Unavailable Flo Esteban MD Unavailable [phone] Dilan Rowland MD Unavailable [phone] Corby Prado MD Unavailable [phone] Neisha Pinto RN Unavailable [email or web address] Shreyas Wilson MD Unavailable Doretha Glynn MD Unavailable [phone] Izzy Hackett Unavailable [email or web address] Radha Pereira RN Unavailable [phone] Jv Liz Unavailable Encounter Details Date Type Department Care Team (Late st Contact Info) Description 02/10/2022 Procedure Pass Non-Invasive Cardiology [address] [place] [address] Social History Tobacco Use Types Packs/Day Years [...] Description 09/10/2025 9:00 AM EST Office Visit [facility] Gastroenterology Clinic 10 [place] [address] Unknown, Unknown, MD Wilson, Shreyas Cartagena MD [address] [place] [address] 09/21/2025 2:30 PM EST Office Visit [facility] Pulmonary, Allergy and Critical Care Medicine [address] [place] [address] Lester Hicks MD [address] [place] [address] 10/07/2025 7:15 AM EST Appointment [facility] PFT Lab [address] [place] [address] Lester Hicks MD [address] [place] [address] 10/13/2025 9:20 AM EST Office Visit [facility] End[facility]in[facility] [address] [place] [address] [place] [address] Doretha Glynn MD [address] [place] [address] [email or web address] 12/22/2025 8:30 AM EDT Office Visit [address] [place] [address] Johann Hanson, PHYSICIAN UNDERWRITER [address] [place] [address], [address] [place] [address] [email or web address] 06/30/2026 8:00 AM EDT Office Visit [address] [place] [address] Johann Hanson, PHYSICIAN UNDERWRITER [address] [place] [address], [address] [address] [email or web address] documented as of this encounter [...] documented as of this encounter Care Teams Dowel Sticker Operator Relationship Specialty Start Date End Date Johann Hanson CNP [address] [place] [address], [address] [place] [address] PCP - General Family Medicine 02/11/21 Lester Hicks MD [address] [place] [address] Historical LMR Provider 07/28/17 Margaux Montanez MD [address] [place] [address], [address] [place] [address] [email or web address] Historical LMR Provider 07/28/17 Khang Kilgore MD [address] [place] [address], [address] [place] [address] Insurance Assigned Provider 01/12/24 Luis Ignacio DO [address] [place] [address], [address] [place] [address] Cardiology 06/28/22 06/16/24 Flo Esteban MD [address] [place] [address] [place] [address] [email or web address] Cardiothoracic Surgery 06/28/22 06/16/24 Dilan Rowland MD [address] [place] [address], [address] [place] [address] Insurance Assigned Provider 07/15/22 08/13/22 Corby Prado MD [address] [place] [address], [address] [place] [address] Insurance Assigned Provider 08/13/22 09/16/22 Neisha Pinto RN [address] [place] [address], [address] [place] [address] [email or web address] Dump Truck Driver Off Highway 02/26/23 06/10/25 Shreyas Wilson MD [address] [place] [address] Gastroenterology 06/17/24 Doretha Glynn MD [address] [place] [address] 3rd [place] [address] Endocrinology 06/17/24 Izzy Hackett [address] [place] [address] [email or web address] PHCM Community Receiving Weigher 09/11/24 09/11/24 Radha Pereira RN [address] [place] [address] PHCM Dump Truck Driver Off HighwayYard Jockey 06/11/25 Jv Liz [address] [place] [address] [email or web address] Final Application Reviewer 08/12/25 08/12/25 documented as of this encounter Additional Source Comments The information contained in this document represents components of the legal health record. It is not the complete legal health record.[facility]
--- OUTSIDE RECORDS SUMMARY | 2025-08-26 16:43 | XMS_ITS | Encounter Summary ---
Author Organization [facility] Address [address] [place] [address] [place] [address] Phone Care Team Providers Care Technicians And Trades Workers Name Role Phone Lester Hicks MD Unavailable [phone] Margaux Montanez MD Unavailable Johann Hanson CNP Primary Care Provider [phone] Khang Kilgore MD Unavailable [phone] Shreyas Wilson MD Unavailable [phone] Doretha Glynn MD Unavailable [phone] Radha Pereira RN Unavailable Jv Liz Unavailable Encounter Details Date Type Department Care Team (Late st Contact Info) Description 08/07/2025 Orders Only [facility] [place] [facility] [address] [place] [address] Provider, MD Cesario [address] [place] [address] Social History Tobacco Use Types Packs/Day [...] high school, GED, job training, learning the Cymro language, technical skills, or developing parenting skills)? [...] Description 09/10/2025 9:00 AM EST Office Visit [facility] Gastroenterology Clinic 10 [place] [address] Unknown, Unknown, Shreyas Limon MD [address] [place] [address] 09/21/2025 2:30 PM EST Office Visit [facility] Pulmonary, Allergy and Critical Care Medicine 10 [place] [address] Lester Hicks MD [address] [place] [address] 10/07/2025 7:15 AM EST Appointment [facility] P[facility] Lab [address] [place] [address] Lester Hicks MD [address] [place] [address] 10/13/2025 9:20 AM EST Office Visit [facility] [address] [place] [address] [place] [address] Doretha Glynn MD [address] [place] [phone] [email or web address] 12/22/2025 8:30 AM EDT Office Visit [facility] [address] [place] [address] Johann Hanson, STORAGE FACILITY RENTAL CLERK [address] [facility] [place] [address] [email or web address] 06/30/2026 8:00 AM EDT Office Visit [facility] 22 [place] [address] Johann Hanson CNP [address] [facility] [place] [address] [email or web address] documented as of this encounter Procedures Procedure Name Priority Date/Time Associated Diagnosis Comments OUTSIDE IMAGING Routine 08/07/2025 4:14 PM EDT documented in this encounter Results * Outside Imaging Report Only (08/07/2025 4:14 PM EDT) us Historical Provider IMBrenda XR CHEST Final Res ult documented in this encounter Visit Diagnoses Not on filedocumented in this encounter Additional Health Concerns Assessment Noted Time PHQ-9 Depression Total Score: 4 10/29/19 24 1:54 PM EST PHQ-2 Depression Total Score: 0 06/23/20 25 12:32 PM EDT documented as of this encounter Care Teams Technicians And Trades Workers Relationship Specialty Start Date End Date Johann Hanson CNP [address] [place] [address], [address] [place] [address] PCP - General Family Medicine 02/11/21 Lester Hicks MD [address] [place] [address] Historical LMR Provider 07/28/17 Margaux Montanez MD [address] [place] [address], [address] [place] [address] Historical LMR Provider 07/28/17 Khang Kilgore MD [address] [facility] [place] [address] Insurance Assigned Provider 01/12/24 Shreyas Wilson MD [address] [place] [address] Gastroenterology 06/17/24 Doretha Glynn MD [address] [facility] [address] [place] [address] Endocrinology 06/17/24 Radha Pereira, RANDI [address] [place] [address] PHCM Crank HandSocial Worker Assistant 06/11/25 Jv Liz [address] [place] [address] Documentation Improvement Specialist 08/12/25 08/12/25 documented as of this encounter Additional Source Comments The information contained in this document represents components of the legal health record. It is not the complete legal health record.[facility]
--- OUTSIDE RECORDS SUMMARY | 2025-08-26 16:43 | XMS_ITS | Encounter Summary ---
Author Organization [facility] Address [address] [place] [address] Phone Care Team Providers Care Community Arts Worker Name Role Phone Lester Hicks MD Unavailable [phone] Margaux Montanez MD Unavailable Johann Hanson CNP Primary Care Provider [phone] Khang Kilgore MD Unavailable Luis Ignacio DO Unavailable Flo Esteban MD Unavailable [phone] Neisha Pinto RN Unavailable [email or web address] Shreyas Wilson MD Unavailable [phone] Doretha Glynn MD Unavailable [phone] Izzy Hackett Unavailable [email or web address] Radha Pereira RN Unavailable [phone] Jv Liz Unavailable Encounter Details Date Type Department Care Team (Late st Contact Info) Description 12/11/2022 Procedure Pass [facility] Cardiovascular And Interventional Radiology 30 [place], [place] [id number] Social History Tobacco Use Types Packs/Day Years [...] Description 09/10/2025 9:00 AM EST Office Visit [facility] Gastroenterology Clinic 10 [place] [address] Unknown, Unknown, Shreyas Limon MD [address] [address] 09/21/2025 2:30 PM EST Office Visit [facility] Pulmonary, Allergy and Critical Care Medicine 10 [place] [address] Lester Hicks MD [address] [place] [address] 10/07/2025 7:15 AM EST Appointment [facility] PFT Lab 30 [place] [address] Lester Hicks MD [address] [place] [address] 10/13/2025 9:20 AM EST Office Visit [facility] Endocrinology 22 [place] [address] Doretha Glynn MD [address] [place] [address] [email or web address] 12/22/2025 8:30 AM EDT Office Visit [address] [place] [address] Johann Hanson, STAFF INTERNIST OFFICE BASED ONLY [address] [place] [address], [address] [place] [address] [email or web address] 06/30/2026 8:00 AM EDT Office Visit [address] [place] [address] Johann Hanson, STAFF INTERNIST OFFICE BASED ONLY [address] [place] [address], [address] [place] [address] [email or web address] documented as of this encounter Visit Diagnoses Not on filedocumented in this encounter Additional Health Concerns Infection Onset Date Last Indicated Resolved Time COVID-19 10/07/2023 10/07/2023 10/28/2023 1:21 AM EST Assessment Noted Time PHQ-2 Depression Total Score: 0 05/15/20 1:45 PM EDT documented as of this encounter Care Teams Community Arts Worker Relationship Specialty Start Date End Date CarmenJohann evans CNP [address] [place] [address], [address] [place] [address] [email or web address] PCP - General Family Medicine 02/11/21 Lester Hicks MD [address] [place] [address] 2[address] [place] [address] [email or web address] Historical LMR Provider 07/28/17 Margaux Montanez MD [address] [place] [address], [address] [place] [address] [email or web address] Historical LMR Provider 07/28/17 Khang Kilgore MD [address] [place] [address], [address] [place] [address] [email or web address] Insurance Assigned Provider 01/12/24 Luis Ignacio DO [address] [place] [address], [address] [place] [address] Cardiology 06/28/22 06/16/24 Flo Esteban MD [address] [place], [place] [address] [place] [address] [email or web address] Cardiothoracic Surgery 06/28/22 06/16/24 Neisha Pinto RN [address] [place], [place] [address] [place] [address] [email or web address] PHCM Neurological Surgery Teacher 02/26/23 06/10/25 Shreyas Wilson MD NPI: [id number] [place] [address] Gastroenterology 06/17/24 Doretha Glynn MD [address] [place] [address] Endocrinology 06/17/24 Izzy Hackett [address] [place] [address] [email or web address] PHCM Community Lacquer Sprayer 09/11/24 09/11/24 Radha Pereira RN [address] [place] [address] [email or web address] PHCM Neurological Surgery TeacherFirearms Specialist 06/11/25 Jv Liz [address] [place] [address] [email or web address] Planning Aide 08/12/25 08/12/25 documented as of this encounter Additional Source Comments The information contained in this document represents components of the legal health record. It is not the complete legal health record.[facility]
--- OUTSIDE RECORDS SUMMARY | 2025-08-26 16:43 | XMS_ITS | Encounter Summary ---
Author Organization [facility] Address [address] [place] [address] Phone Care Team Providers Care Agricultural Research Technician Name Role Phone Lester Hicks MD Unavailable [phone] Margaux Mnotanez MD Unavailable Johann aHnson CNP Primary Care Provider [phone] Khang Kilgore MD Unavailable Luis Ignacio DO Unavailable Flo Esteban MD Unavailable [phone] Neisha Pinto RN Unavailable [email or web address] Shreyas Wilson MD Unavailable [phone] Doretha Glynn MD Unavailable [phone] Izzy Hackett Unavailable [email or web address] Radha Pereira RN Unavailable [phone] Jv Liz Unavailable Encounter Details Date Type Department Care Team (Late st Contact Info) Description 12/08/2022 Procedure Pass [facility] Cardiovascular And Interventional Radiology 30 [place], [place] [phone] Social History Tobacco Use Types Packs/Day Years [...] Description 09/10/2025 9:00 AM EST Office Visit [facility] Gastroenterology Clinic 10 [place] [address] Unknown, Unknown, Shreyas Limon MD [address] [address] 09/21/2025 2:30 PM EST Office Visit [facility] Pulmonary, Allergy and Critical Care Medicine 10 [place] [address] Lester Hicks MD [address] [place] [address] 10/07/2025 7:15 AM EST Appointment [facility] PFT Lab 30 [place] [address] Lester Hicks MD [address] [place] [address] 10/13/2025 9:20 AM EST Office Visit [facility] 22 [place] [address] Doretha Glynn MD [address] [place] [address] [email or web address] 12/22/2025 8:30 AM EDT Office Visit [address] [place] [address] Johann Hanson, MANAGER LEARNING [address] [place] [address], [address] [place] [address] [email or web address] 06/30/2026 8:00 AM EDT Office Visit [address] [place] [address] Johann Hanson, MANAGER LEARNING [address] [place] [address], [address] [place] [address] [email or web address] documented as of this encounter Visit Diagnoses Not on filedocumented in this encounter Additional Health Concerns Infection Onset Date Last Indicated Resolved Time COVID-19 10/07/2023 10/07/2023 10/28/2023 1:21 AM EST Assessment Noted Time PHQ-2 Depression Total Score: 0 05/15/20 1:45 PM EDT documented as of this encounter Care Teams Agricultural Research Technician Relationship Specialty Start Date End Date CarmenJohann evans CNP [address] [place] [address], [address] [place] [address] [email or web address] PCP - General Family Medicine 02/11/21 Lester Hicks MD [address] [place] [address] 2[address] [place] [address] [email or web address] Historical LMR Provider 07/28/17 Margaux Montanez MD [address] [place] [address], [address] [place] [address] [email or web address] Historical LMR Provider 07/28/17 Khang Kilgore MD [address] [place] [address], [address] [place] [address] [email or web address] Insurance Assigned Provider 01/12/24 Luis Ignacio DO [address] [place] [address], [address] [place] [address] Cardiology 06/28/22 06/16/24 Flo Esteban MD [address] [place], [place] [address] [place] [address] [email or web address] Cardiothoracic Surgery 06/28/22 06/16/24 Neisha Pinto RN [address] [place], [place] [address] [place] [address] [email or web address] PHCM Shale Processing Technician 02/26/23 06/10/25 Shreyas Wilson MD NPI: [id number] [place] [address] Gastroenterology 06/17/24 Doretha Glynn MD [address] [place] [address] Endocrinology 06/17/24 Izzy Hackett [address] [place] [address] [email or web address] PHCM Community Metal Box Maker 09/11/24 09/11/24 Radha Pereira RN [address] [place] [address] [email or web address] PHCM Shale Processing TechnicianWelding Machine Operator Electro Gas 06/11/25 Jv Liz [address] [place] [address] [email or web address] Cruise Agent 08/12/25 08/12/25 documented as of this encounter Additional Source Comments The information contained in this document represents components of the legal health record. It is not the complete legal health record.[facility]
--- OUTSIDE RECORDS SUMMARY | 2025-08-26 16:43 | XMS_ITS | Encounter Summary ---
Author Organization [facility] Address [address] [place] [address] [place] [address] Phone Care Team Providers Care Photographic Press Screwmaker Name Role Phone Tricia Balderas DO Unavailable Lester Hicks MD Unavailable [phone] Margaux Montanez MD Unavailable Demario Floyd MD Unavailable Pam Benson MD Unavailable [phone] Adithya Campos COMMUNICATIONS LEAD Unavailable Beatriz Donaldson WIND TURBINE ENGINEER Unavailable Beatriz Donaldson WIND TURBINE ENGINEER Primary Care Provider Mamta Whitney DO Primary Care Provider [phone] Mamta Whitney DO Primary Care Provider [phone] Johann Hanson COMMUNICATIONS LEAD Primary Care Provider [phone] Khang Kilgore MD Unavailable Luis Ignacio DO Unavailable Flo Esteban MD Unavailable [phone] Dilan Rowland MD Unavailable [phone] Corby Prado MD Unavailable [phone] Neisha Pinto RN Unavailable [email or web address] Shreyas Wilson MD Unavailable Doretha Glynn MD Unavailable [phone] Izzy Hackett Unavailable [email or web address] Radha Pereira RN Unavailable Jv Liz Unavailable Encounter Details Date Type Department Care Team (Late st Contact Info) Description 05/20/2018 Ancillary Orders Virtual Department [address] [place] [address] Beatriz Donaldson, EARL [address] [place] [address] Lymphadenopathy; Generalized enlarged lymph nodes Social History [...] [facility] 10 [place] [address] Unknown, Unknown, Shreyas Limon MD [address] [place] [address] [phone] [email or web address] 09/21/2025 2:30 PM EST Office Visit [facility] Pulmonary, Allergy and Critical Care Medicine 10 [facility] [place], [place] [phone] Lester Hicks MD [address] [place] [address] [phone] 10/07/2025 7:15 AM EST Appointment [facility] PFT Lab 30 [place] [address] Lester Hicks MD [address] [place] [address] 10/13/2025 9:20 AM EST Office Visit [facility] End[facility]inology 22 [place] [address] Doretha Glynn MD [address] [place] [address] [email or web address] 12/22/2025 8:30 AM EDT Office Visit [address] [place] [address] Johann Hanson, COMMUNICATIONS LEAD [address] [place] [address], [address] [place] [address] [email or web address] 06/30/2026 8:00 AM EDT Office Visit [address] [place] [address] Johann Hanson, COMMUNICATIONS LEAD [address] [place] [address], [address] [place] [address] [email or web address] documented as of this encounter [...] documented as of this encounter Care Teams Photographic Press Screwmaker Relationship Specialty Start Date End Date Anika Beatriz Ruth, WIND TURBINE ENGINEER [address] [place] [address] PCP - General Family Medicine 10/04/17 04/11/20 Mamta Whitney DO [address] [place] [address] [email or web address] PCP - General Family Medicine 04/12/20 02/08/21 Mamta Whitney DO [address] [place] [address] [email or web address] PCP - General Family Medicine 02/10/21 02/10/21 Johann Hanson CNP [address] [facility], [address] [place] [address] [email or web address] PCP - General Family Medicine 02/11/21 Tricia Balderas DO [address] [place] [address] [email or web address] Historical LMR Provider 07/28/17 10/15/21 Lester Hicks MD [address] [place] [address] [email or web address] Historical LMR Provider 07/28/17 Margaux Montanez MD [address] [facility] [place] [address] [email or web address] Historical LMR Provider 07/28/17 Demario Floyd MD [address] [place] [address] [email or web address] Historical LMR Provider 07/28/17 10/15/21 Pam Benson MD [address] [place] [address] [email or web address] Historical LMR Provider 07/28/17 10/15/21 Adithya Campos COMMUNICATIONS LEAD [address] [place] [address] [email or web address] Historical LMR Provider 07/28/17 12/25/21 Beatriz Donaldson NP [address] [place] [address] Historical LMR Provider 07/28/17 04/11/20 Khang Kilgore MD [address] [place] [address], [address] [place] [address] [email or web address] Insurance Assigned Provider 01/12/24 Luis Ignacio DO [address] [place] [address], [address] [place] [address] Cardiology 06/28/22 06/16/24 Flo Esteban MD [address] [place] [address] [place] [address] [email or web address] Cardiothoracic Surgery 06/28/22 06/16/24 Dilan Rowland MD [address] [place] [address], [address] [place] [address] [email or web address] Insurance Assigned Provider 07/15/22 08/13/22 Corby Prado MD [address] [place] [address], [address] [place] [address] [email or web address] Insurance Assigned Provider 08/13/22 09/16/22 Neisha Pinto RN [address] [place] [address], [address] [place] [address] [email or web address] PHCM Demand Manager 02/26/23 06/10/25 Shreyas Wilson MD [address] [place] [address] [email or web address] Gastroenterology 06/17/24 Doretha Glynn MD [address] [place] [address] 3[address] [place] [address] [email or web address] Endocrinology 06/17/24 Izzy Hackett [address] [place] [address] [email or web address] PHC Community Integrated Circuit Design Engineer 09/11/24 09/11/24 Radha Pereira, RN [address] [place] [address] [email or web address] PHC Demand ManagerLoading Dock Helper 06/11/25 Jv Liz [address] [place] [address] [email or web address] Hemmer Chainstitch 08/12/25 08/12/25 documented as of this encounter Additional Source Comments The information contained in this document represents components of the legal health record. It is not the complete legal health record.[facility]
--- OUTSIDE RECORDS SUMMARY | 2025-08-26 16:43 | XMS_ITS | Encounter Summary ---
Author Organization [facility] Address [address] [place] [address] [place] [address] Phone Care Team Providers Care Preforms Laminator Name Role Phone Lester Hicks MD Unavailable [phone] Margaux Montanez MD Unavailable Johann Hanson CNP Primary Care Provider [phone] Khang Kilgore MD Unavailable [phone] Luis Ignacio DO Unavailable Flo Esteban MD Unavailable [phone] Neisha Pinto RN Unavailable [email or web address] Shreyas Wilson MD Unavailable Doretha Glynn MD Unavailable [phone] Izzy Hackett Unavailable [email or web address] Radha Pereira RN Unavailable Jv Liz Unavailable Encounter Details Date Type Department Care Team (Late st Contact Info) Description 11/17/2022 Procedure Pass [facility] PERIOPERATIVE DEPT [address] [place] [id number] Social History Tobacco Use Types Packs/Day Years [...] 11/17/2022 7:00 PM David Mccormick RN * [place] Suicide Severity Rating Scale (Screener/Recent Self-Report) Question [...] Description 09/10/2025 9:00 AM EST Office Visit [facility] Gastroenterology Clinic 10 [place] [address] Unknown, Unknown, Shreyas Limon MD [address] [place] [address] 09/21/2025 2:30 PM EST Office Visit [facility] Pulmonary, Allergy and Critical Care Medicine [address] [place] [address] Lester Hicks MD [address] [place] [address] 10/07/2025 7:15 AM EST Appointment [facility] PFT Lab [address] [place] [address] Lester Hicks MD [address] [place] [address] 10/13/2025 9:20 AM EST Office Visit [facility] [address] [place] [address] Doretha Glynn MD [address] [place] [address] [email or web address] 12/22/2025 8:30 AM EDT Office Visit [facility] [address] [place] [address] Johann Hanson, TIFFANIE [address] [place] [address], [address] [place] [address] [email or web address] 06/30/2026 8:00 AM EDT Office Visit [facility] Medicine 22 [place] [address] Johann Hanson CNP 22 [facility], [address] [place] [address] [email or web address] documented as of this encounter Visit Diagnoses Not on filedocumented in this encounter Additional Health Concerns Infection Onset Date Last Indicated Resolved Time COVID-19 10/07/2023 10/07/2023 10/28/2023 1:21 AM EST Assessment Noted Time PHQ-2 Depression Total Score: 0 05/15/20 1:45 PM EDT documented as of this encounter Care Teams Preforms Laminator Relationship Specialty Start Date End Date Johann Hanson CNP [address] [place] [address], [address] [place] [address] PCP - General Family Medicine 02/11/21 Lester Hicks MD [address] [place] [address] Historical LMR Provider 07/28/17 Margaux Montanez MD [address] [place] [address], [address] [place] [address] [email or web address] Historical LMR Provider 07/28/17 Khang Kilgore MD [address] [place] [address], [address] [place] [address] Insurance Assigned Provider 01/12/24 Luis Ignacio DO [address] [place] [address], [address] [place] [address] Cardiology 06/28/22 06/16/24 Flo Esteban MD [address] [place] [address] [email or web address] Cardiothoracic Surgery 06/28/22 06/16/24 Neisha Pinto RN [address] [place] [address] [email or web address] PHCM Forklift Supervisor 02/26/23 06/10/25 Shreyas Wilson MD [address] [place] [address] Gastroenterology 06/17/24 Doretha Glynn MD [address] [place] [address] Endocrinology 06/17/24 Izzy Hackett [address] [place] [address] [email or web address] PHC Community Pharmaceutical Scientist 09/11/24 09/11/24 Radha Pereira RN [address] [place] [address] PHCM Forklift SupervisorTonal Regulator 06/11/25 Jv Liz [address] [place] [address] Box Truck Driver 08/12/25 08/12/25 documented as of this encounter Additional Source Comments The information contained in this document represents components of the legal health record. It is not the complete legal health record.[facility]
--- OUTSIDE RECORDS SUMMARY | 2025-08-26 16:43 | XMS_ITS | Encounter Summary ---
Author Organization [facility] Address [address] [place] [address] Phone Care Team Providers Care Assistant To The Vice President Name Role Phone Lester Hicks MD Unavailable [phone] Margaux Montanez MD Unavailable Johann Hanson CNP Primary Care Provider [phone] Khang Kilgore MD Unavailable [phone] Luis Ignacio DO Unavailable [phone] Flo Esteban MD Unavailable [phone] Neisha Pinto RN Unavailable [email or web address] Shreyas Wilson MD Unavailable Doretha Glynn MD Unavailable [phone] Izzy Hackett Unavailable [email or web address] Radha Pereira RN Unavailable Jv Liz Unavailable Encounter Details Date Type Department Care Team (Late st Contact Info) Description 12/13/2022 Procedure Pass [facility] Cardiovascular [facility] Interventional Radiology 30 [place], [place] [id number] Social History Tobacco Use Types Packs/Day Years [...] high school, GED, job training, learning the Mosotho language, technical skills, or developing parenting skills)? [...] Description 09/10/2025 9:00 AM EST Office Visit [facility] 10 [place] [address] Unknown, Unknown, Shreyas Limon MD [address] [address] 09/21/2025 2:30 PM EST Office Visit [facility] Allergy [facility] Critical Care [facility] 10 [place] [address] Lester Hicks MD [address] [place] [address] 10/07/2025 7:15 AM EST Appointment [facility]FT [facility] 30 [place] [address] Lester Hicks MD [address] [place] [address] 10/13/2025 9:20 AM EST Office Visit [facility]inology 22 [place] [address] Doretha Glynn MD [address] [place] [address] [email or web address] 12/22/2025 8:30 AM EDT Office Visit [address] [place] [address] Johann Hanson, DUMP GROUNDS CHECKER [address] [place] [address], [address] [place] [address] [email or web address] 06/30/2026 8:00 AM EDT Office Visit [address] [place] [address] Johann Hanosn, DUMP GROUNDS CHECKER [address] [place] [address], [address] [place] [address] [email or web address] documented as of this encounter Visit Diagnoses Not on filedocumented in this encounter Additional Health Concerns Infection Onset Date Last Indicated Resolved Time COVID-19 10/07/2023 10/07/2023 10/28/2023 1:21 AM EST Assessment Noted Time PHQ-2 Depression Total Score: 0 05/15/20 1:45 PM EDT documented as of this encounter Care Teams Assistant To The Vice President Relationship Specialty Start Date End Date CarmenJohann evans CNP [address] [place] [address], [address] [place] [address] [email or web address] PCP - General Family Medicine 02/11/21 Lester Hicks MD [address] [place] [address] 2[address] [place] [address] [email or web address] Historical LMR Provider 07/28/17 Margaux Montanez MD [address] [place] [address], [address] [place] [address] [email or web address] Historical LMR Provider 07/28/17 Khang Kilgore MD [address] [place] [address], [address] [place] [address] [email or web address] Insurance Assigned Provider 01/12/24 Luis Ignacio DO [address] [place] [address], [address] [place] [address] Cardiology 06/28/22 06/16/24 Flo Esteban MD [address] [place], [place] [address] [place] [address] [email or web address] Cardiothoracic Surgery 06/28/22 06/16/24 Neisha Pinto RN [address] [place], [place] [address] [place] [address] [email or web address] PHCM Recapper 02/26/23 06/10/25 Shreyas Wilson MD NPI: [id number] [place] [address] Gastroenterology 06/17/24 Doretha Glynn MD [address] [place] [address] Endocrinology 06/17/24 Izzy Hackett [address] [place] [address] [email or web address] PHCM Community Crossing Supervisor 09/11/24 09/11/24 Radha Pereira RN [address] [place] [address] [email or web address] PHCM RecapperOiling Machine Operator 06/11/25 Jv Liz [address] [place] [address] [email or web address] Assistant To The Vice President 08/12/25 08/12/25 documented as of this encounter Additional Source Comments The information contained in this document represents components of the legal health record. It is not the complete legal health record.[facility]
--- OUTSIDE RECORDS SUMMARY | 2025-08-26 16:43 | XMS_ITS | Encounter Summary ---
Author Organization [facility] Address [address] [place] [address] Phone Care Team Providers Care Grain Elevator Superintendent Name Role Phone Lester Hicks MD Unavailable [phone] Margaux Montanez MD Unavailable Johann Hanson FRUCTOSE LOADER Primary Care Provider [phone] Khang Kilgore MD Unavailable [phone] Luis Ignacio DO Unavailable [phone] Flo Esteban MD Unavailable [phone] Neisha Pinto RN Unavailable [email or web address] Shreyas Wilson MD Unavailable Doretha Glynn MD Unavailable [phone] Izzy Hackett Unavailable [email or web address] Radha Pereira RN Unavailable [phone] Jv Liz Unavailable Encounter Details Date Type Department Care Team (Latest Contact Info) Description 12/22/2022 Transcribe Orders Virtual Department 30 [place] [address] Johann Hanson, FRUCTOSE LOADER [address] [facility], [address] [place], [place] [id number] [email or web address] Breast screening (Primary Dx) [...] high school, GED, job training, learning the Malian language, technical skills, or developing parenting skills)? [...] Upcoming Encounters Date Type Department Care Team ([facility] st Contact Info) Description 09/10/2025 9:00 AM EST Office Visit [facility] [address] [place] [address] Unknown, Unknown, MD Wilson, Shreyas Cartagena MD [address] [place] [address] 09/21/2025 2:30 PM EST Office Visit [facility] Pulmonary, Allergy [facility] Critical Care Medicine [address] [place] [address] Lester Hicks MD [address] [place] [address] 10/07/2025 7:15 AM EST Appointment [facility] [address] [place] [address] Lseter Hicks MD [address] [place] [address] 10/13/2025 9:20 AM EST Office Visit [facility] [address] [place] [address] [place] [address] Doretha Glynn MD [address] [place] [address] [email or web address] 12/22/2025 8:30 AM EDT Office Visit [address] [place] [address] Johann Hanson, FRUCTOSE LOADER [address] [place] [address], [address] [place] [address] [email or web address] 06/30/2026 8:00 AM EDT Office Visit [address] [place] [address] Johann Hanson, FRUCTOSE LOADER [address] [place] [address], [address] [place] [address] [email or web address] documented as of this encounter [...] Months Recommendation: Left Mammography Screening Johann Hanson FRUCTOSE LOADER IMG MG EXAMS Final Res ult documented [...] as of this encounter Care Teams Grain Elevator Superintendent Relationship Specialty Start Date End Date ValentinJohannTIFFANIE [address] [facility], [address] [place] [address] PCP - General Family Medicine 02/11/21 Lester Hicks MD [address] [place] [address] Historical LMR Provider 07/28/17 Margaux Montanez MD [address] [place] [address], [address] [place] [address] [email or web address] Historical LMR Provider 07/28/17 Khang Kilgore MD [address] [place] [address], [address] [place] [address] Insurance Assigned Provider 01/12/24 Luis Ignacio DO [address] [place] [address], [address] [place] [address] Cardiology 06/28/22 06/16/24 Flo Esteban MD [address] [place], [place] [address]D[address] [place] [address] [email or web address] Cardiothoracic Surgery 06/28/22 06/16/24 Neisha Pinto, ARNDI [address] [place] [address] FND-7 [place] [address] [email or web address] [email or web address] Sales Receptionist 02/26/23 06/10/25 Shreyas Wilson MD [address] [place] [address] Gastroenterology 06/17/24 Doretha Glynn MD [address] [place] [address] Endocrinology 06/17/24 Izzy Hackett [address] [place] [address] [email or web address] PHC Community Lead Nurse 09/11/24 09/11/24 Radha Pereira RN [address] [place] [address] PHC Sales ReceptionistHot Plate Plywood Press Feeder 06/11/25 Jv Liz [address] [place] [address] Senior Animator 08/12/25 08/12/25 documented as of this encounter Additional Source Comments The information contained in this document represents components of the legal health record. It is not the complete legal health record.[facility]
--- OUTSIDE RECORDS SUMMARY | 2025-08-26 16:43 | XMS_ITS | Encounter Summary ---
Author Organization [facility] Address [address] [place] [address] Phone Care Team Providers Care Roller Bearing Inspector Name Role Phone Lester Hicks MD Unavailable [phone] Margaux Montanez MD Unavailable [phone] Johann Hanson CNP Primary Care Provider [phone] Khang Kilgore MD Unavailable Luis Ignacio DO Unavailable Flo Esteban MD Unavailable [phone] Neisha Pinto RN Unavailable [email or web address] Shreyas Wilson MD Unavailable Doretha Glynn MD Unavailable [phone] Izzy Hackett Unavailable [email or web address] Radha Pereira RN Unavailable [phone] Jv Liz Unavailable Encounter Details Date Type Department Care Team (Late st Contact Info) Description 12/08/2022 Procedure Pass [facility] Cardiovascular And Interventional Radiology 30 [place], [place] [phone] Social History Tobacco Use Types Packs/Day Years [...] Description 09/10/2025 9:00 AM EST Office Visit [facility] Gastroenterology Clinic 10 [place] [address] Unknown, Unknown, Shreyas Limon MD [address] [address] 09/21/2025 2:30 PM EST Office Visit [facility] Pulmonary, Allergy [facility] Critical Care Medicine 10 [place] [address] Lester Hicks MD [address] [place] [address] 10/07/2025 7:15 AM EST Appointment [facility]FT Lab 30 [place] [address] Lester Hicks MD [address] [place] [address] 10/13/2025 9:20 AM EST Office Visit [facility] 22 [place] [address] Doretha Glynn MD [address] [place] [address] [email or web address] 12/22/2025 8:30 AM EDT Office Visit [address] [place] [address] Johann Hanson, STEEL POURER [address] [place] [address], [address] [place] [address] [email or web address] 06/30/2026 8:00 AM EDT Office Visit [address] [place] [address] Johann Hanson, STEEL POURER [address] [place] [address], [address] [place] [address] [email or web address] documented as of this encounter Visit Diagnoses Not on filedocumented in this encounter Additional Health Concerns Infection Onset Date Last Indicated Resolved Time COVID-19 10/07/2023 10/07/2023 10/28/2023 1:21 AM EST Assessment Noted Time PHQ-2 Depression Total Score: 0 05/15/20 1:45 PM EDT documented as of this encounter Care Teams Roller Bearing Inspector Relationship Specialty Start Date End Date CarmenJohann evans CNP [address] [place] [address], [address] [place] [address] [email or web address] PCP - General Family Medicine 02/11/21 Lester Hicks MD [address] [place] [address] 2[address] [place] [address] [email or web address] Historical LMR Provider 07/28/17 Margaux Montanez MD [address] [place] [address], [address] [place] [address] [email or web address] Historical LMR Provider 07/28/17 Khang Kilgore MD [address] [place] [address], [address] [place] [address] [email or web address] Insurance Assigned Provider 01/12/24 Luis Ignacio DO [address] [place] [address], [address] [place] [address] Cardiology 06/28/22 06/16/24 Flo Esteban MD [address] [place], [place] [address] [place] [address] [email or web address] Cardiothoracic Surgery 06/28/22 06/16/24 Neisha Pinto RN [address] [place], [place] [address] [place] [address] [email or web address] PHCM Membership Sales Manager 02/26/23 06/10/25 Shreyas Wilson MD NPI: [id number] [place] [address] Gastroenterology 06/17/24 Doretha Glynn MD [address] [place] [address] Endocrinology 06/17/24 Izzy Hackett [address] [place] [address] [email or web address] PHCM Community Firmware Test Engineer 09/11/24 09/11/24 Radha Pereira RN [address] [place] [address] [email or web address] PHCM Membership Sales ManagerJacket Changer 06/11/25 Jv Liz [address] [place] [address] [email or web address] Oilfield Plant And Field Operator 08/12/25 08/12/25 documented as of this encounter Additional Source Comments The information contained in this document represents components of the legal health record. It is not the complete legal health record.[facility]
--- OUTSIDE RECORDS SUMMARY | 2025-08-26 16:44 | XMS_ITS | Encounter Summary ---
Author Organization [facility] Address [address] [place] [address] [place] [address] Phone Care Team Providers Care Unitizer Name Role Phone Lester Hicks MD Unavailable [phone] Margaux Montanez MD Unavailable Johann Hanson CNP Primary Care Provider [phone] Khang Kilgore MD Unavailable [phone] Luis Ignacio DO Unavailable Flo Esteban MD Unavailable [phone] Neisha Pinto RN Unavailable [email or web address] Shreyas Wilson MD Unavailable Doretha Glynn MD Unavailable [phone] Izzy Hackett Unavailable [email or web address] Radha Pereira RN Unavailable [phone] Jv Liz Unavailable Encounter Details Date Type Department Care Team (Late st Contact Info) Description 12/07/2022 Procedure Pass [facility], Ct Scan - [address] [id number] Social History Tobacco Use Types Packs/Day Years [...] high school, GED, job training, learning the [place] Islander language, technical skills, or developing parenting [...] 12/07/2022 9:18 AM Alise Hamilton, RN * [place] Suicide Severity Rating Scale (Screener/Recent Self-Report) Question [...] 09/10/2025 9:00 AM EST Office Visit [facility] Gastroenterology Clinic 10 [place] [address] Unknown, Unknown, Shreyas Limon MD [address] [place] [address] 09/21/2025 2:30 PM EST Office Visit [facility], Allergy [facility] Critical Care Medicine [address] [place] [address] Lester Hicks MD [address] [place] [address] 10/07/2025 7:15 AM EST Appointment [facility] [address] [place] [address] Lester Hicks MD [address] [place] [address] 10/13/2025 9:20 AM EST Office Visit [facility] [address] [place] [address] Doretha Glynn MD [address] [place] [address] [email or web address] 12/22/2025 8:30 AM EDT Office Visit [facility] [address] [place] [address] Johann Hanson, KINDERGARTNERS HELPER [address] [place] [address], [address] [place] [address] [email or web address] 06/30/2026 8:00 AM EDT Office Visit [facility] 22 [place] [address] Johann Hanson CNP [address] [facility], [address] [place] [address] [email or web address] documented as of this encounter Visit Diagnoses Not on filedocumented in this encounter Additional Health Concerns Infection Onset Date Last Indicated Resolved Time COVID-19 10/07/2023 10/07/2023 10/28/2023 1:21 AM EST Assessment Noted Time PHQ-2 Depression Total Score: 0 05/15/20 1:45 PM EDT documented as of this encounter Care Teams Unitizer Relationship Specialty Start Date End Date Johann Hanson CNP [address] [place] [address], [address] [place] [address] PCP - General Family Medicine 02/11/21 Lester Hicks MD [address] [place] [address] Historical LMR Provider 07/28/17 Margaux Montanez MD [address] [place] [address], [address] [place] [address] [email or web address] Historical LMR Provider 07/28/17 Khang Kilgore MD [address] [place] [address], [address] [place] [address] Insurance Assigned Provider 01/12/24 Luis Ignacio DO [address] [place] [address], [address] [place] [address] Cardiology 06/28/22 06/16/24 Flo Esteban MD [address] [place] [address] [email or web address] Cardiothoracic Surgery 06/28/22 06/16/24 Neisha Pinto RN [address] [place] [address] [email or web address] PHCM Chef German 02/26/23 06/10/25 Shreyas Wilson MD [address] [place] [address] Gastroenterology 06/17/24 Doretha Glynn MD [address] [place] [address] Endocrinology 06/17/24 Izzy Hackett [address] [place] [address] [email or web address] Community Mercury Cracking Tester 09/11/24 09/11/24 Radha Pereira RN [address] [place] [address] PHC Chef GermanGreeting Card Writer 06/11/25 Jv Liz [address] [place] [address] Silk Spotter 08/12/25 08/12/25 documented as of this encounter Additional Source Comments The information contained in this document represents components of the legal health record. It is not the complete legal health record.[facility]
--- OUTSIDE RECORDS SUMMARY | 2025-08-26 16:44 | XMS_ITS | Encounter Summary ---
Author Organization [facility] Address [address] [place] [address] Phone Care Team Providers Care Basketball Referee Name Role Phone Beatriz Donaldson ACID CLEANER Primary Care Provider [phone] Tricia Balderas DO Unavailable [phone] Lester Hicks MD Unavailable [phone] Margaux Montanez MD Unavailable Demario Floyd MD Unavailable Pam Benson MD Unavailable [phone] Adithya Campos COMMERCIAL PROPERTY ADMINISTRATOR Unavailable [phone] Beatriz Donaldson ACID CLEANER Unavailable [phone] Beatriz Donaldson ACID CLEANER Primary Care Provider [phone] Mamta Whitney DO Primary Care Provider [phone] Mamta Whitney DO Primary Care Provider [phone] Johann Hanson COMMERCIAL PROPERTY ADMINISTRATOR Primary Care Provider [phone] Khang Kilgore MD Unavailable Luis Ignacio DO Unavailable Flo Esteban MD Unavailable [phone] Dilan Rowland MD Unavailable [phone] Corby Prado MD Unavailable [phone] Neisha Pinto RN Unavailable [email or web address] Shreyas Wilson MD Unavailable [phone] Doretha Glynn MD Unavailable [phone] Izzy Hackett Unavailable [email or web address] Radha Pereira RN Unavailable [phone] Jv Liz Unavailable Encounter Details Date Type Department Care Team (Late st Contact Info) Description 09/03/2017 Ancillary Orders [facility] External Provider Virtual Department [address] [place] [address] Beatriz Donaldson, ACID CLEANER [address] [place] [address] Breast screening Social History Tobacco Use Types [...] Visit [facility] Gastro[facility]ology Clinic 10 [place] [address] Unknown, Unknown, Shreyas Limon MD [address] [address] [email or web address] 09/21/2025 2:30 PM EST Office Visit [facility], All[facility] Critical [facility] Medicine 10 [facility] [place] [address] Lester Hicks MD [address] [place] [address] [id number] 10/07/2025 7:15 AM EST Appointment [facility] PFT Lab 30 [place] [address] Lester Hicks MD [address] [place] [address] 10/13/2025 9:20 AM EST Office Visit [facility]inology 22 [place] [address] Doretha Glynn MD [address] [place] [address] [email or web address] 12/22/2025 8:30 AM EDT Office Visit [address] [place] [address] Johann Hanson, COMMERCIAL PROPERTY ADMINISTRATOR [address] [place] [address], [address] [place] [address] [email or web address] 06/30/2026 8:00 AM EDT Office Visit [address] [place] [address] Johann Hanson, COMMERCIAL PROPERTY ADMINISTRATOR [address] [place] [address], [address] [place] [address] [email or web address] documented as of this encounter [...] There are scattered fibroglandular densities. POS - [id number] Narrative 08/12/2018 12:17 PM EST Full-field digital [...] There are scattered fibroglandular densities. POS - [id number] Beatriz Donaldson NP IMG MG EXAMS Final Result documented in this encounter Visit Diagnoses Diagnosis Breast screening Breast screening, unspecified Breast screening Breast screening, unspecified documented in this encounter Additional Health Concerns Infection Onset Date Last Indicated Resolved Time CoV-Presumed 05/27/2022 05/27/2022 06/17/2022 1:21 AM EDT CoV-Presumed Comment:COVID-19 Added 10/12/2022 10/12/2022 10/13/2022 6:26 P M EST COVID-19 10/13/2022 10/13/202211/0311/03/2022 1:21 AM EST COVID-19 10/07/2023 10/07/2023 10/28/2023 1:21 AM EST documented as of this encounter Care Teams Basketball Referee Relationship Specialty Start Date End Date Beatriz Donaldson, ACID CLEANER PCP - General 07/26/17 10/03/17 Beatriz Donaldson ACID CLEANER PCP - General Family Medicine 10/04/17 04/11/20 Mamta Whitney DO [address] [place] [address] [email or web address] PCP - General Family Medicine 04/12/20 02/08/21 Mamta Whitney DO [address] [place] [address] [email or web address] PCP - General Family Medicine 02/10/21 02/10/21 Johann Hanson CNP [address] [place], [place] [address] [place] [address] [email or web address] PCP - General Family Medicine 02/11/21 Tricia Balderas DO [address] [place] [address] [email or web address] Historical LMR Provider 07/28/17 10/15/21 Lester Hicks MD [address] [place] [address] [email or web address] Historical LMR Provider 07/28/17 Margaux Montanez MD [address] [place] [address], [address] [place] [address] [email or web address] Historical LMR Provider 07/28/17 Demario Floyd MD [address] [place] [address] [email or web address] Historical LMR Provider 07/28/17 10/15/21 Pam Benson MD [address] [place] [address] [email or web address] Historical LMR Provider 07/28/17 10/15/21 Adithya Campos COMMERCIAL PROPERTY ADMINISTRATOR [address] [place] [address] [email or web address] Historical LMR Provider 07/28/17 12/25/21 Beatirz Donaldson NP [address] [place] [address] Historical LMR Provider 07/28/17 04/11/20 Khang Kilgore MD [address] [place] [address], [address] [place] [address] [email or web address] Insurance Assigned Provider 01/12/24 Luis Ignacio DO [address] [place] [address], [address] [place] [address] Cardiology 06/28/22 06/16/24 Flo Esteban MD [address] [place], [place] [address]D[address] [place] [address] [email or web address] Cardiothoracic Surgery 06/28/22 06/16/24 Dilan Rowland MD [address] [place] [address], [address] [place] [address] [email or web address] Insurance Assigned Provider 07/15/22 08/13/22 Corby Prado MD [address] [place] [address], [address] [place] [address] [email or web address] Insurance Assigned Provider 08/13/22 09/16/22 Neisha Pinto RN [address] [place] [address], [address] [place] [address] [email or web address] PHC Door Trimmer 02/26/23 06/10/25 Shreyas Wilson MD [address] [place] [address] Gastroenterology 06/17/24 Doretha Glynn MD [address] [place] [address] 3rd [place] [address] Endocrinology 06/17/24 Izzy Hackett [address] [place] [address] [email or web address] [facility] Community Mender Hand 09/11/24 09/11/24 Radha Pereira, RN [address] [place] [address] [email or web address] PHCM Door TrimmerDishcloth Folder 06/11/25 Jv Liz [address] [place] [address] [email or web address] Feller Operator 08/12/25 08/12/25 documented as of this encounter Additional Source Comments The information contained in this document represents components of the legal health record. It is not the complete legal health record.[facility]
--- OUTSIDE RECORDS SUMMARY | 2025-08-26 16:44 | XMS_ITS | Encounter Summary ---
Author Organization [facility] Address [address] [place] [address] [place] [address] Phone Care Team Providers Care Mental Health Nurse Practitioner Name Role Phone Lester Hicks MD Unavailable [phone] Margaux Montanez MD Unavailable [phone] Johann Hanson CNP Primary Care Provider [phone] Khang Kilgore MD Unavailable Luis Ignacio DO Unavailable Flo Esteban MD Unavailable [phone] Dilan Rowland MD Unavailable [phone] Corby Prado MD Unavailable [phone] Neisha Pinto RN Unavailable [email or web address] Shreyas Wilson MD Unavailable Doretha Glynn MD Unavailable [phone] Izzy Hackett Unavailable [email or web address] Radha Pereira RN Unavailable Jv Liz Unavailable Encounter Details Date Type Department Care Team (Late st Contact Info) Description 02/10/2022 Procedure Pass Echo Lab [address] [place] [address] Social History Tobacco Use Types Packs/Day Years [...] high school, GED, job training, learning the Georgian language, technical skills, or developing parenting skills)? [...] Visit [facility] Gastroenterology Clinic 10 [place] [address] Unknown, Unknown, MD Wilson, Shreyas Cartagena MD [address] [place] [address] 09/21/2025 2:30 PM EST Office Visit [facility] All[facility] Critical [facility] Medicine [address] [place] [address] Lester Hicks MD [address] [place] [address] 10/07/2025 7:15 AM EST Appointment [facility] PFT Lab [address] [place] [address] Lester Hicks MD [address] [place] [address] 10/13/2025 9:20 AM EST Office Visit [facility] [address] [place] [address] [place] [address] Doretha Glynn MD [address] [place] [address] [email or web address] 12/22/2025 8:30 AM EDT Office Visit [address] [place] [address] Johann Hanson, SPANNER OPERATOR [address] [place] [address], [address] [place] [address] [email or web address] 06/30/2026 8:00 AM EDT Office Visit [address] [place] [address] Johann Hanson, SPANNER OPERATOR [address] [place] [address], [address] [address] [email or web address] documented as of this encounter [...] documented as of this encounter Care Teams Mental Health Nurse Practitioner Relationship Specialty Start Date End Date Johann Hanson CNP [address] [place] [address], [address] [place] [address] PCP - General Family Medicine 02/11/21 Lester Hicks MD [address] [place] [address] Historical LMR Provider 07/28/17 Margaux Montanez MD [address] [place] [address], [address] [place] [address] [email or web address] Historical LMR Provider 07/28/17 Khang Kilgore MD [address] [place] [address], [address] [place] [address] Insurance Assigned Provider 01/12/24 Luis Ignacio DO [address] [place] [address], [address] [place] [address] Cardiology 06/28/22 06/16/24 Flo Esteban MD [address] [place] [address] [place] [address] [email or web address] Cardiothoracic Surgery 06/28/22 06/16/24 Dilan Rowland MD [address] [place] [address], [address] [place] [address] Insurance Assigned Provider 07/15/22 08/13/22 Corby Pr[place] MD [address] [place] [address], [address] [place] [address] Insurance Assigned Provider 08/13/22 09/16/22 Neisha Pinto RN [address] [place] [address], [address] [place] [address] [email or web address] PHCM Student Recruiter 02/26/23 06/10/25 Shreyas Wilson MD [address] [place] [address] Gastroenterology 06/17/24 Doretha Glynn MD [address] [place] [address] 3rd [place] [address] Endocrinology 06/17/24 Izzy Hackett [address] [place] [address] [email or web address] PHCM Community Cellular Equipment Repairer 09/11/24 09/11/24 Radha Pereira RN [address] [place] [address] PHCM Student RecruiterSystems Software Designer 06/11/25 Jv Liz [address] [place] [address] [email or web address] Regional Climate Change Analyst 08/12/25 08/12/25 documented as of this encounter Additional Source Comments The information contained in this document represents components of the legal health record. It is not the complete legal health record.[facility]
--- OUTSIDE RECORDS SUMMARY | 2025-08-26 16:44 | XMS_ITS | Encounter Summary ---
Author Organization [facility] Address [address] [place] [address] Phone Care Team Providers Care Loom Stop Checker Name Role Phone Lester Hicks MD Unavailable [phone] Margaux Montanez MD Unavailable [phone] Johann Hanson CNP Primary Care Provider [phone] Khang Kilgore MD Unavailable Luis Ignacio DO Unavailable Flo Esteban MD Unavailable [phone] Neisha Pinto RN Unavailable [email or web address] Shreyas Wilson MD Unavailable [phone] Doretha Glynn MD Unavailable [phone] Izzy Hackett Unavailable [email or web address] Radha Pereira RN Unavailable Jv Liz Unavailable Encounter Details Date Type Department Care Team (Late st Contact Info) Description 12/07/2022 Procedure Pass [facility] Echo Lab 30 [place], [place] [id number] Social History Tobacco Use Types Packs/Day Years [...] 12/07/2022 9:18 AM Alise Hamilton, RN * [place] Suicide Severity Rating Scale (Screener/Recent Self-Report) Question [...] Description 09/10/2025 9:00 AM EST Office Visit [facility] Gastroenterology Clinic 10 [place] [address] Unknown, Unknown, Shreyas Limon MD [address] [place] [address] 09/21/2025 2:30 PM EST Office Visit [facility] Pulmonary, Allergy and Critical Care Medicine [address] [place] [address] Lester Hicks MD [address] [place] [address] 10/07/2025 7:15 AM EST Appointment [facility] PFT Lab [address] [place] [address] Lester Hicks MD [address] [place] [address] 10/13/2025 9:20 AM EST Office Visit [facility] [address] [place] [address] Doretha Glynn MD [address] [place] [address] [email or web address] 12/22/2025 8:30 AM EDT Office Visit [facility] Family Medicine [address] [place] [address] Johann Hanson, TIFFANIE [address] [place] [address], [address] [place] [address] [email or web address] 06/30/2026 8:00 AM EDT Office Visit [facility] Medicine 22 [place] [address] Johann Hanson CNP 22 [facility], [address] [place] [address] [email or web address] documented as of this encounter Visit Diagnoses Not on filedocumented in this encounter Additional Health Concerns Infection Onset Date Last Indicated Resolved Time COVID-19 10/07/2023 10/07/2023 10/28/2023 1:21 AM EST Assessment Noted Time PHQ-2 Depression Total Score: 0 05/15/20 1:45 PM EDT documented as of this encounter Care Teams Loom Stop Checker Relationship Specialty Start Date End Date Johann Hanson CNP [address] [place] [address], [address] [place] [address] PCP - General Family Medicine 02/11/21 Lester Hicks MD [address] [place] [address] Historical LMR Provider 07/28/17 Margaux Montanez MD [address] [place] [address], [address] [place] [address] [email or web address] Historical LMR Provider 07/28/17 Khang Kilgore MD [address] [place] [address], [address] [place] [address] Insurance Assigned Provider 01/12/24 Luis Ignacio DO [address] [place] [address], [address] [place] [address] Cardiology 06/28/22 06/16/24 Flo Esteban MD [address] [place] [address] [email or web address] Cardiothoracic Surgery 06/28/22 06/16/24 Neisha Pinto RN [address] [place] [address] [email or web address] PHCM High School Foreign Language Tutor 02/26/23 06/10/25 Shreyas Wilson MD [address] [place] [address] Gastroenterology 06/17/24 Doretha Glynn MD [address] [place] [address] Endocrinology 06/17/24 Izzy Hackett [address] [place] [address] [email or web address] [facility] Community Interactive Media Marketing Specialist 09/11/24 09/11/24 Radha Pereira RN [address] [place] [address] PHC High School Foreign Language TutorGeothermal Powerplant Supervisor 06/11/25 Jv Liz [address] [place] [address] Teacher Vocal 08/12/25 08/12/25 documented as of this encounter Additional Source Comments The information contained in this document represents components of the legal health record. It is not the complete legal health record.[facility]
--- OUTSIDE RECORDS SUMMARY | 2025-08-26 16:44 | XMS_ITS | Encounter Summary ---
Author Organization [facility] Address [address] [place] [address] [place] [address] Phone Care Team Providers Care Lap Grinder Name Role Phone Lester Hicks MD Unavailable [phone] Margaux Montanez MD Unavailable [phone] Johann Hanson CNP Primary Care Provider [phone] Khang Kilgore MD Unavailable Luis Ignacio DO Unavailable Flo Esteban MD Unavailable [phone] Neisha Pinto RN Unavailable [email or web address] Shreyas Wilson MD Unavailable Doretha Glynn MD Unavailable [phone] Izzy Hackett Unavailable [email or web address] Radha Pereira RN Unavailable Jv Liz Unavailable Encounter Details Date Type Department Care Team (Latest Contact Info) Description 12/28/2023 Transcribe Orders [facility] Department [address] [place], [place] [phone] Shreyas Wilson MD [address] [place] [address] [phone] [email or web address] Dysphagia, unspecified type (Primary Dx); Nausea and [...] Office Visit [facility] Gastroenterology Clinic 10 [place] [address] Unknown, Unknown, Shreyas Limon MD [address] [place] [address] 09/21/2025 2:30 PM EST Office Visit [facility], Allergy [facility] Critical Care Medicine [address] [place] [address] Lester Hicks MD [address] [place] [address] 10/07/2025 7:15 AM EST Appointment [facility] PFT Lab [address] [place] [address] Lester Hicks MD [address] [place] [address] 10/13/2025 9:20 AM EST Office Visit [facility] [address] [place] [address] [place] [address] Doretha Glynn MD [address] [place] [address] [email or web address] 12/22/2025 8:30 AM EDT Office Visit [facility] [address] [place] [address] Johann Hanson, FINISHING ROOM SUPERVISOR 22 [facility], [address] [place] [address] [email or web address] 06/30/2026 8:00 AM EDT Office Visit [facility] [address] [place] [address] Johann Hanson, FINISHING ROOM SUPERVISOR [address], [address] [place] [address] [email or web address] documented as of this encounter [...] Ronnell Maurer. Shreyas Wilson MD IMG [facility] Final Result documented in this encounter Visit Diagnoses Diagnosis Dysphagia, unspecified type- Primary Nausea and vomiting, unspecified vomiting type Dysphagia, unspecified type Nausea and vomiting, unspecified vomiting type documented in this encounter Additional Health Concerns Assessment Noted Time PHQ-9 Depression Total Score: 4 10/29/19 1:54 PM EST PHQ-2 Depression Total Score: 2 10/29/19 1:54 PM EST documented as of this encounter Care Teams Lap Grinder Relationship Specialty Start Date End Date Johann Hanson CNP [address] [place] [address], [address] [place] [address] PCP - General Family Medicine 02/11/21 Lester Hicks MD [address] [place] [address] Historical LMR Provider 07/28/17 Margaux Montanez MD [address] [place] [address], [address] [place] [address] [email or web address] Historical LMR Provider 07/28/17 Khang Kilgore MD [address] [place] [address], [address] [place] [address] Insurance Assigned Provider 01/12/24 Luis Ignacio DO [address] [place] [address], [address] [place] [address] Cardiology 06/28/22 06/16/24 Flo Esteban MD [address] [place] [address] [place] [address] [email or web address] Cardiothoracic Surgery 06/28/22 06/16/24 Neisha Pinto, RANDI [address] [place] [address] FND-[address] [place] [address] [email or web address] PHCM Ic Engineer 02/26/23 06/10/25 Shreyas Wilson MD [address] [place] [address] Gastroenterology 06/17/24 Doretha Glynn MD [address] [place] [address] Endocrinology 06/17/24 Izzy Hackett [address] [place] [address] [email or web address] PHC Community Facility Maintenance Supervisor 09/11/24 09/11/24 Radha Pereira RN [address] [place] [address] PHC Ic EngineerCaddy/Caddie Supervisor 06/11/25 Jv Liz [address] [place] [address] Airport Refueling Handler 08/12/25 08/12/25 documented as of this encounter Additional Source Comments The information contained in this document represents components of the legal health record. It is not the complete legal health record.[facility]
--- OUTSIDE RECORDS SUMMARY | 2025-08-26 16:45 | XMS_ITS | Encounter Summary ---
Author Organization [facility] Address [address] [address] Phone Care Team Providers Care Dictating Machine Transcriber Name Role Phone Lester Hicks MD Unavailable [phone] Margaux Montanez MD Unavailable [phone] Johann Hanson CNP Primary Care Provider [phone] Khang Kilgore MD Unavailable Shreyas Wilson MD Unavailable Doretha Glynn MD Unavailable [phone] Radha Pereira RN Unavailable Reason for Visit * Reason Onset Date Comments EKG Question 08/24/2025 Encounter Details Date Type Department Care Team (Late st Contact Info) Description 08/24/2025 Telephone [employer] [facility] [address] [place], [place] [phone] Tierra Hannah LPN 22 [place] [address] [email or web address] EKG Question Social History Tobacco Use Types Packs/Day Years [...] as of this encounter Progress Notes * Johann Hanson CNP - 08/24/2025 9:49 AM EST Aware. Thank you. * Tierra Hannah LPN - 08/24/2025 9:36 AM EST Called [facility] to inquire whether the cardiology EKG is sufficient or do they want another one done by PCP during pre-op? Caller confirmed with PA they would like another EKG documented in this encounter Plan of Treatment Upcoming Encounters Date Type Department Care Team (Late st Contact Info) Description 09/10/2025 9:00 AM EST Office Visit [facility] G[facility] [address] [place] [address] Unknown, Unknown, Shreyas Limon MD [address] [place] [address] 09/21/2025 2:30 PM EST Office Visit [facility] Pul[facility], Allergy and Critical Care Medicine 10 [facility] [place] [address] Lester Hicks MD [address] [place] [address] 10/07/2025 7:15 AM EST Appointment [facility] 30 [place] [address] Lester Hicks MD [address] [place] [address] [email or web address] 10/13/2025 9:20 AM EST Office Visit [facility] 22 [place] [address] Doretha Glynn MD [address] [place] [address] [email or web address] 12/22/2025 8:30 AM EDT Office Visit [address] [place] [address] Johann Hanson CNP [address] [place] [address], [address] [place] [address] [email or web address] 06/30/2026 8:00 AM EDT Office Visit [address] [address] Johann Hanson CNP [address] [place] [address], [address] [place] [address] [email or web address] documented as of this encounter Visit Diagnoses Not on filedocumented in this encounter Additional Health Concerns Assessment Noted Time PHQ-9 Depression Total Score: 4 10/29/19 24 1:54 PM EST PHQ-2 Depression Total Score: 0 06/23/20 25 12:32 PM EDT documented as of this encounter Care Teams Dictating Machine Transcriber Relationship Specialty Start Date End Date Johann Hanson CNP [address] [place] [address], [address] [place] [address] [email or web address] PCP - General Family Medicine 02/11/21 Lester Hicks MD [address] [place] [address] [email or web address] Historical LMR Provider 07/28/17 Margaux Montanez MD [address] [place] [address], [address] [place] [address] Historical LMR Provider 07/28/17 Khang Kilgore MD 22 [facility], [address] [place] [address] Insurance Assigned Provider 01/12/24 Shreyas Wilson MD [address] [place] [address] Gastroenterology 06/17/24 Doretha Glynn MD [address] [place] [address] Endocrinology 06/17/24 Radha Pereira, RN [address] [place] [address] [email or web address] PHCM Logistics Planning EngineerHealth Informatics Advisor 06/11/25 documented as of this encounter Additional Source Comments The information contained in this document represents components of the legal health record. It is not the complete legal health record.[facility]
--- OUTSIDE RECORDS SUMMARY | 2025-08-26 16:45 | XMS_ITS ---
Author Organization [facility] Address [address] [place] [address] [place] [address] Phone Care Team Providers Care Line Pilot Name Role Phone Lester Hicks MD Unavailable [phone] Margaux Montanez MD Unavailable Johann Hanson CNP Primary Care Provider [phone] Khang Kilgore MD Unavailable Shreyas Wilson MD Unavailable Doretha Glynn MD Unavailable [phone] Radha Pereira RN Unavailable Population Health Care Management (PHCM) Status:Enrolled (Active) Start date:10/23/2023 Enrollment date:10/23/2023 Current support & services provided:[facility] Related social drivers of health:Housing Stability, Child or Family Care, Education, Food, Unemployment, Paying for Meds, Paying Utility Bills, Transportation, Digital Access, SNAP/WIC Case Team Name Relationship Phone Email Radha Pereira RN(Responsible Staff) Registered Nurse [phone] Izzy Herbert PHCM Tafe Lecturer [email or web address] Continued Care and Services Coordination
--- OUTSIDE RECORDS SUMMARY | 2025-08-26 16:45 | XMS_ITS | Encounter Summary ---
Author Organization [facility] Address [address] [place] [address] [place] [address] Phone Care Team Providers Care Finish Saw Operator Name Role Phone Lester Hicks MD Unavailable [phone] Margaux Montanez MD Unavailable Johann Hanson CNP Primary Care Provider [phone] Khang Kilgore MD Unavailable Luis Ignacio DO Unavailable [phone] Flo Esteban MD Unavailable [phone] Neisha Pinto RN Unavailable [email or web address] Shreyas Wilson MD Unavailable [phone] Doretha Glynn MD Unavailable [phone] Izzy Hackett Unavailable [email or web address] Radha Pereira RN Unavailable Jv Liz Unavailable Encounter Details Date Type Department Care Team (Late st Contact Info) Description 10/12/2022 Procedure Pass [facility] PERIOPERATIVE DEPT [address] [facility] [id number] Social History Tobacco Use Types Packs/Day Years [...] Description 09/10/2025 9:00 AM EST Office Visit [facility] Gastroenterology Clinic 10 [place] [address] Unknown, Unknown, Shreyas Limon MD [address] [address] 09/21/2025 2:30 PM EST Office Visit [facility], Allergy [facility] Critical Care Medicine 10 [place] [address] Lester Hicks MD [address] [place] [address] 10/07/2025 7:15 AM EST Appointment [facility] 30 [place] [address] Lester Hicks MD [address] [place] [address] 10/13/2025 9:20 AM EST Office Visit [facility] [address] [place] [address] Doretha Glynn MD [address] [place] [address] [email or web address] 12/22/2025 8:30 AM EDT Office Visit [address] [place] [address] Johann Hanson, ASSOCIATE BRAND MANAGER [address] [place] [address], [address] [place] [address] [email or web address] 06/30/2026 8:00 AM EDT Office Visit [address] [place] [address] Johann Hanson, ASSOCIATE BRAND MANAGER [address] [place] [address], [address] [place] [address] [email or web address] documented as of this encounter [...] documented as of this encounter Care Teams Finish Saw Operator Relationship Specialty Start Date End Date CarmenJohann evans TIFFANIE [address] [place] [address], [address] [place] [address] PCP - General Family Medicine 02/11/21 Lester Hicks MD [address] [place] [address] Historical LMR Provider 07/28/17 Margaux Montanez MD [address] [place] [address], [address] [place] [address] [email or web address] Historical LMR Provider 07/28/17 Khang Kilgore MD [address] [place] [address], [address] [place] [address] Insurance Assigned Provider 01/12/24 Luis Ignacio DO [address] [place] [address], [address] [place] [address] Cardiology 06/28/22 06/16/24 Flo Esteban MD [address] [place] [address] [address] [place] [address] [email or web address] Cardiothoracic Surgery 06/28/22 06/16/24 Neisha Pinto RN [address] [place] [address] [address] [place] [address] [email or web address] PHCM Medical Staff Specialist 02/26/23 06/10/25 Shreyas Wilson MD [address] [place] [address] Gastroenterology 06/17/24 Doretha Glynn MD [address] [place] [address] Endocrinology 06/17/24 Izzy Hackett [address] [place] [address] [email or web address] PHCM Community Chemicals Distiller 09/11/24 09/11/24 Radha Pereira RN [address] [place] [address] PHC Medical Staff SpecialistMotor Vehicle Technician 06/11/25 Jv Liz [address] [place] [address] Customer Operations Intern 08/12/25 08/12/25 documented as of this encounter Additional Source Comments The information contained in this document represents components of the legal health record. It is not the complete legal health record.[facility]
--- OUTSIDE RECORDS SUMMARY | 2025-08-26 16:45 | XMS_ITS | Encounter Summary ---
Author Organization [facility] Address [address] [place] [address] [place] [address] Phone Care Team Providers Care Sales Account Executive Name Role Phone Tricia Balderas DO Unavailable Lester Hicks MD Unavailable [phone] Margaux Montanez MD Unavailable Demario Floyd MD Unavailable Pam Benson MD Unavailable [phone] Adithya Campos ELECTRICAL DESIGNER DRAFTER Unavailable Beatriz Donaldson MANAGEMENT INFORMATION SYSTEMS DIRECTOR Unavailable Beatriz Donaldson MANAGEMENT INFORMATION SYSTEMS DIRECTOR Primary Care Provider Mamta Whitney DO Primary Care Provider [phone] Mamta Whitney DO Primary Care Provider [phone] Johann Hanson ELECTRICAL DESIGNER DRAFTER Primary Care Provider [phone] Khang Kilgore MD Unavailable Luis Ignacio DO Unavailable Flo Esteban MD Unavailable [phone] Dilan Rowland MD Unavailable [phone] Corby Prado MD Unavailable [phone] Neisha Pinto RN Unavailable [email or web address] Shreyas Wilson MD Unavailable Doretha Glynn MD Unavailable [phone] Izzy Hackett Unavailable [email or web address] Radha Pereira RN Unavailable Jv Liz Unavailable Encounter Details Date Type Department Care Team (Late st Contact Info) Description 11/12/2019 Ancillary Orders Virtual Department [address] [place] [address] Beatriz Donaldson NP [address] [place] [address] Breast screening Social History Tobacco Use Types [...] Description 09/10/2025 9:00 AM EST Office Visit [facility] Gastroenterology Clinic 10 [place] [address] Unknown, Unknown, Shreyas Limon MD [address] [address] [email or web address] 09/21/2025 2:30 PM EST Office Visit [facility], Allergy [facility] Critical [facility] Medicine 10 [facility] [place] [address] Lester Hicks MD 10 [facility] 2nd [place], [place] [phone] 10/07/2025 7:15 AM EST Appointment [facility] 30 [place] [address] Lester Hicks MD [address] [place] [address] 10/13/2025 9:20 AM EST Office Visit [facility] 22 [place] [address] Doretha Glynn MD [address] [place] [address] [email or web address] 12/22/2025 8:30 AM EDT Office Visit [address] [place] [address] Johann Hanson, ELECTRICAL DESIGNER DRAFTER [address] [place] [address], [address] [place] [address] [email or web address] 06/30/2026 8:00 AM EDT Office Visit [address] [place] [address] Johann Hansno, ELECTRICAL DESIGNER DRAFTER [address] [place] [address], [address] [place] [address] [email or web address] documented as of this encounter [...] as of this encounter Care Teams Sales Account Executive Relationship Specialty Start Date End Date Beatriz Donaldson, MANAGEMENT INFORMATION SYSTEMS DIRECTOR [address] [place] [address] PCP - General Family Medicine 10/04/17 04/11/20 Mamta Whitney DO [address] [place] [address] [email or web address] PCP - General Family Medicine 04/12/20 02/08/21 Mamta Whitney DO [address] [place] [address] [email or web address] PCP - General Family Medicine 02/10/21 02/10/21 Johann Hanson CNP [address] [place] [address], [address] [place] [address] [email or web address] PCP - General Family Medicine 02/11/21 Tricia Balderas DO [address] [place] [address] [email or web address] Historical LMR Provider 07/28/17 10/15/21 Lester Hicks MD [address] [place] [address] [email or web address] Historical LMR Provider 07/28/17 Margaux Montanez MD [address] [place] [address], [address] [place] [address] [email or web address] Historical LMR Provider 07/28/17 Demario Floyd MD [address] [place] [address] [email or web address] Historical LMR Provider 07/28/17 10/15/21 Pam Benson MD [address] [place] [address] [email or web address] Historical LMR Provider 07/28/17 10/15/21 Adithya Campos ELECTRICAL DESIGNER DRAFTER [address] [place] [address] [email or web address] Historical LMR Provider 07/28/17 12/25/21 Beatriz Donaldson NP [address] [place] [address] Historical LMR Provider 07/28/17 04/11/20 Khang Kilgore MD [address] [place] [address], [address] [place] [address] [email or web address] Insurance Assigned Provider 01/12/24 Luis Ignacio DO [address] [place] [address], [address] [place] [address] [email or web address] Cardiology 06/28/22 06/16/24 Flo Esteban MD [address] [place] [address] [email or web address] Cardiothoracic Surgery 06/28/22 06/16/24 Dilan Rowland MD [address] [place] [address], [address] [place] [address] [email or web address] Insurance Assigned Provider 07/15/22 08/13/22 Corby Prado MD [address] [place] [address], [address] [place] [address] [email or web address] Insurance Assigned Provider 08/13/22 09/16/22 Neisha Pinto RN [address] [place] [address], [address] [place] [address] [email or web address] PHCM Engineering Technical Analyst 02/26/23 06/10/25 Shreyas Wilson MD [address] [place] [address] Gastroenterology 06/17/24 Doretha Glynn MD [address] [place] [address] [address] [place] [address] Endocrinology 06/17/24 Izzy Hackett [address] [place] [address] [email or web address] PHC Community Outbound Telemarketer 09/11/24 09/11/24 Radha Pereira, RN [address] [place] [address] [email or web address] PHCM Engineering Technical AnalystBrand Attendant 06/11/25 Jv Liz [address] [place] [address] Provider Engagement Executive 08/12/25 08/12/25 documented as of this encounter Additional Source Comments The information contained in this document represents components of the legal health record. It is not the complete legal health record.[facility]
--- OUTSIDE RECORDS SUMMARY | 2025-08-26 16:45 | XMS_ITS | Encounter Summary ---
Author Organization [facility] Address [address] [place] [address] [place] [address] Phone Care Team Providers Care Topstitcher Zigzag Name Role Phone Lester Hicks MD Unavailable [phone] Margaux Montanez MD Unavailable Johann Hanson CNP Primary Care Provider [phone] Khang Kilgore MD Unavailable Luis Ignacio DO Unavailable Flo Esteban MD Unavailable [phone] Corby Prado MD Unavailable [phone] Neisha Pinto RN Unavailable [email or web address] Shreyas Wilson MD Unavailable Doretha Glynn MD Unavailable [phone] Izzy Hackett Unavailable [email or web address] Radha Pereira RN Unavailable Jv Liz Unavailable Encounter Details Date Type Department Care Team (Late st Contact Info) Description 08/15/2022 Procedure Pass [facility], Ct Scan - [address] [id number] Social History Tobacco Use Types Packs/Day Years [...] Description 09/10/2025 9:00 AM EST Office Visit [facility] Gastroenterology Clinic [address] [place] [address] Unknown, [place], Shreyas Limon MD [address] [place] [address] 09/21/2025 2:30 PM EST Office Visit [facility], Allergy and Critical Care Medicine [address] [place] [address] Lester Hicks MD [address] [place] [address] 10/07/2025 7:15 AM EST Appointment [facility] 30 [place] [address] Lester Hicks MD [address] [place] [address] 10/13/2025 9:20 AM EST Office Visit [facility] [address] [place] [address] Doretha Glynn MD [address] [place] [address] [email or web address] 12/22/2025 8:30 AM EDT Office Visit [address] [place] [address] Johann Hanson, OCULAR CARE TECHNICIAN [address] [place] [address], [address] [place] [address] [email or web address] 06/30/2026 8:00 AM EDT Office Visit [address] [place] [address] Johann Hanson, OCULAR CARE TECHNICIAN [address] [place] [address], [address] [address] [email or web address] documented as of this encounter [...] documented as of this encounter Care Teams Topstitcher Zigzag Relationship Specialty Start Date End Date Johann Hanson CNP [address] [place] [address], [address] [place] [address] PCP - General Family Medicine 02/11/21 Lester Hicks MD [address] [place] [address] [email or web address] Historical LMR Provider 07/28/17 Margaux Montanez MD [address] [place] [address], [address] [place] [address] [email or web address] Historical LMR Provider 07/28/17 Khang Kilgore MD [address] [place] [address], [address] [place] [address] Insurance Assigned Provider 01/12/24 Luis Ignacio DO [address] [place] [address], [address] [place] [address] Cardiology 06/28/22 06/16/24 Flo Esteban MD [address] [place] [address] [address] [place] [address] [email or web address] Cardiothoracic Surgery 06/28/22 06/16/24 Corby Prado MD 22 [facility], [address] [place] [address] Insurance Assigned Provider 08/13/22 09/16/22 Neisha Pinto RN 22 [facility], [address] [place] [address] [email or web address] PHC Community Outreach Advocate 02/26/23 06/10/25 Shreyas Wilson MD [address] [place] [address] Gastroenterology 06/17/24 Doretha Glynn MD [address] [place] [address] [address] [place] [address] Endocrinology 06/17/24 Izzy Hackett [address] [place] [address] [email or web address] [facility] Community Medical Reimbursement Specialist 09/11/24 09/11/24 Radha Pereira RN [address] [place] [address] [email or web address] PHC Community Outreach AdvocateIntegrity Director 06/11/25 Jv Liz [address] [place] [address] Horticultural Nursery Assistant 08/12/25 08/12/25 documented as of this encounter Additional Source Comments The information contained in this document represents components of the legal health record. It is not the complete legal health record.[facility]
--- OUTSIDE RECORDS SUMMARY | 2025-08-26 16:45 | XMS_ITS | Encounter Summary ---
Author Organization [facility] Address [address] [place] [address] Phone Care Team Providers Care Director Of Curriculum And Instruction Name Role Phone Tricia Balderas DO Unavailable Lester Hicks MD Unavailable [phone] Margaux Montanez MD Unavailable Demario Floyd MD Unavailable Pam Benson MD Unavailable Adithya Campos TELEVISION SCHEDULE COORDINATOR Unavailable Johann Hanson TELEVISION SCHEDULE COORDINATOR Primary Care Provider [phone] Khang Kilgore MD Unavailable Luis Ignacio DO Unavailable Flo Esteban MD Unavailable [phone] Dilan Rowland MD Unavailable [phone] Corby Prado MD Unavailable [phone] Neisha Pinto RN Unavailable [email or web address] Shreyas Wilson MD Unavailable Doretha Glynn MD Unavailable [phone] Izzy Hackett Unavailable sami Radha Pereira RN Unavailable JoJv hernandez Unavailable Encounter Details Date Type Department Care Team ([facility] Contact Info) Description 02/22/2021 Procedure Pass [facility], [address] [address] Social History Tobacco Use Types Packs/Day Years [...] Visit [facility] G[facility]enterology Clinic 10 [place] [address] Unknown, Unknown, Shreyas Limon MD [address] [address] 09/21/2025 2:30 PM EST Office Visit [facility] Pulmonary, Allergy [facility] Critical Care Medicine 10 [place] [address] Lester Hicks MD [address] [place] [address] 10/07/2025 7:15 AM EST Appointment [facility] [address] [place] [address] Lester Hicks MD [address] [place] [address] 10/13/2025 9:20 AM EST Office Visit [facility] Endocrinology [address] [place] [address] [place] [address] Doretha Glynn MD [address] [place] [address] [email or web address] 12/22/2025 8:30 AM EDT Office Visit [address] [place] [address] Johann Hanson, TELEVISION SCHEDULE COORDINATOR [address] [place] [address], [address] [place] [address] [email or web address] 06/30/2026 8:00 AM EDT Office Visit [address] [place] [address] Johann Hanson, TELEVISION SCHEDULE COORDINATOR [address] [place] [address], [address] [place] [address] [email or web address] documented as of this encounter [...] of this encounter Care Teams Director Of Curriculum And Instruction Relationship Specialty Start Date End Date Johann Hanson CNP [address] [place] [address], [address] [place] [address] [email or web address] PCP - General Family Medicine 02/11/21 Tricia Balderas DO [address] [place] [address] [email or web address] Historical LMR Provider 07/28/17 10/15/21 Lester Hicks MD [address] [place] [address] Historical LMR Provider 07/28/17 Margaux Montanez MD [address] [place] [address], [address] [place] [address] [email or web address] Historical LMR Provider 07/28/17 Demario Floyd MD [address] [place] [address] [email or web address] Historical LMR Provider 07/28/17 Pam Benson MD [address] [place] [address], [address] [place] [address] Historical LMR Provider 07/28/17 Adithya Campos, TELEVISION SCHEDULE COORDINATOR [address] [place] [address] Historical LMR Provider 07/28/17 12/25/21 Khang Kilgore MD [address] [place] [address], [address] [place] [address] Insurance Assigned Provider 01/12/24 Luis Ignacio DO [address] [place] [address], [address] [place] [address] Cardiology 06/28/22 06/16/24 Flo Esteban MD [address] [place] [address] [email or web address] Cardiothoracic Surgery 06/28/22 06/16/24 Dilan Rowland MD [address] [place] [address], [address] [place] [address] Insurance Assigned Provider 07/15/22 08/13/22 Corby Prado MD 22 [facility], [address] [place] [address] Insurance Assigned Provider 08/13/22 09/16/22 Neisha Pinto RN 22 [facility], [address] [place] [address] [email or web address] PHCM Order Picker 02/26/23 06/10/25 Shreyas Wilson MD [address] [place] [address] Gastroenterology 06/17/24 Doretha Glynn MD [address] [place] [address] [address] [place] [address] Endocrinology 06/17/24 Izzy Hackett 10 [place] [address] [email or web address] PHC Community Line Locator 09/11/24 09/11/24 Radha Pereira, RANDI [address] [place] [address] PHCM Order PickerLegislative Aide 06/11/25 Jv Liz [address] [place] [address] Wool Tamper 08/12/25 08/12/25 documented as of this encounter Additional Source Comments The information contained in this document represents components of the legal health record. It is not the complete legal health record.[facility]
--- OUTSIDE RECORDS SUMMARY | 2025-08-26 16:45 | XMS_ITS | Encounter Summary ---
Author Organization [facility] Address [address] [address] Phone Care Team Providers Care Stunt Man Name Role Phone Lester Hicks MD Unavailable [phone] Margaux Montanez MD Unavailable Johann Hanson CNP Primary Care Provider [phone] Khang Kilgore MD Unavailable [phone] Shreyas Wilson MD Unavailable Doretha Glynn MD Unavailable [phone] Radha Pereira RN Unavailable Reason for Visit * Reason Onset Date Comments Medication Refill 08/24/2025 Encounter Details Date Type Department Care Team (Late st Contact Info) Description 08/24/2025 Refill [facility] [address] [place] [address] [place], [place] [phone] Praveena Valadez MA 22 [place], [place] [phone] [email or web address] Medication Refill Social History Tobacco Use Types [...] high school, GED, job training, learning the [place] language, technical skills, or developing parenting skills)? [...] as of this encounter Progress Notes * Praveena Valadez MA - 08/24/2025 3:10 PM EST Images from the original note were not included. Can you do a separate t/e regarding the lorazepam refill for Porsha? I want to keep it out of the pre-op documentation. Rx Care Gap Status - Instructions for Clinical Staff (prescriber discretion applies): > Mismatch review guide > Check PDMP for all controlled medication requests. Visit Info Last visit: 07/22/2025 Johann Hanson CNP - Family Medicine [facility] > Requested f/u: Not specified Upcoming visit: 08/24/2025 Johann Hanson CNP - Family Medicine [facility] ACTIONS TAKEN BY Praveena Valadez MA - Checked PDMP/MassPAT. Non-Opioid Controlled Substance With PDMP Rx Protocol - lorazepam Renewal is at prescriber discretion. Visit in the past 12 months: Yes documented in this encounter Plan of Treatment Upcoming Encounters Date Type Department Care Team ([facility] Contact Info) Description 09/10/2025 9:00 AM EST Office Visit [facility]ology [facility] 10 [place] [address] Unknown, Unknown, Shreyas Limon MD [address] [place] [address] [email or web address] 09/21/2025 2:30 PM EST Office Visit [facility] Pulmonary, Allergy and Critical Care Medicine 10 [place] [address] Lester Hicks MD [address] [place] [address] 10/07/2025 7:15 AM EST Appointment [facility] 30 [place] [address] Lester Hicks MD [address] [place] [address] 10/13/2025 9:20 AM EST Office Visit [facility] [address] [place] [address] Doretha Glynn MD [address] [place] [address] [email or web address] 12/22/2025 8:30 AM EDT Office Visit [address] [place] [address] Johann Hanson CNP [address] [place] [address], [address] [place] [address] [email or web address] 06/30/2026 8:00 AM EDT Office Visit [address] [address] Johann Hanson CNP [address] [place] [address], [address] [place] [address] [email or web address] documented as of this encounter Visit Diagnoses Not on filedocumented in this encounter Additional Health Concerns Assessment Noted Time PHQ-9 Depression Total Score: 4 10/29/19 24 1:54 PM EST PHQ-2 Depression Total Score: 0 06/23/20 25 12:32 PM EDT documented as of this encounter Care Teams Stunt Man Relationship Specialty Start Date End Date Johann Hanson CNP [address] [place] [address], [address] [place] [address] PCP - General Family Medicine 02/11/21 Lester Hicks MD [address] [place] [address] [email or web address] Historical LMR Provider 07/28/17 Margaux Montanez MD [address] [place] [address], [address] [place] [address] Historical LMR Provider 07/28/17 Khang Kilgore MD [address] [place] [address], [address] [place] [address] Insurance Assigned Provider 01/12/24 Shreyas Wilson MD [address] [place] [address] Gastroenterology 06/17/24 Doretha Glynn MD [address] [place] [address] Endocrinology 06/17/24 Radha Pereira, RN 10 [place] [address] [email or web address] PHCM Phone BankerMaterials Assistant 06/11/25 documented as of this encounter Additional Source Comments The information contained in this document represents components of the legal health record. It is not the complete legal health record.[facility]
--- OUTSIDE RECORDS SUMMARY | 2025-08-26 16:45 | XMS_ITS | Encounter Summary ---
Author Organization [facility] Address [address] [place] [address] [place] [address] Phone Care Team Providers Care Decorating Equipment Setter Name Role Phone Lester Hicks MD Unavailable [phone] Margaux Montanez MD Unavailable Johann Hanson CNP Primary Care Provider [phone] Khang Kilgore MD Unavailable Luis Ignacio DO Unavailable [phone] Flo Esteban MD Unavailable [phone] Neisha Pinto RN Unavailable [email or web address] Shreyas Wilsno MD Unavailable Doretha Glynn MD Unavailable [phone] Izzy Hackett Unavailable [email or web address] Radha Pereira RN Unavailable Jv Liz Unavailable Encounter Details Date Type Department Care Team (Latest Contact Info) Description 09/07/2023 Transcribe Orders [facility] Department 30 [place], [place] [phone] Shreyas Wilson MD [address] [place] [phone] [email or web address] Gastroesophageal reflux disease, unspecified whether [...] [facility] 10 [place] [address] Unknown, Unknown, Shreyas Limon MD [address] [place] [address] 09/21/2025 2:30 PM EST Office Visit [facility] Pul[facility] All[facility] Critical [facility] Medicine [address] [place] [address] Lester Hicks MD [address] [place] [address] 10/07/2025 7:15 AM EST Appointment [facility] [address] [place] [address] Lester Hicks MD [address] [place] [address] 10/13/2025 9:20 AM EST Office Visit [facility] [address] [place] [address] [place] [address] Doretha Glynn MD [address] [place] [address] [email or web address] 12/22/2025 8:30 AM EDT Office Visit [facility] [address] [place] [address] Johann Hanson, OCEAN LIFEGUARD SPECIALIST [address] [facility], [address] [place] [address] [email or web address] 06/30/2026 8:00 AM EDT Office Visit [address] [place] [address] Johann Hanson CNP [address] [facility], [address] [place] [address] [email or web address] documented as of this encounter [...] documented as of this encounter Care Teams Decorating Equipment Setter Relationship Specialty Start Date End Date Johann Hanson CNP [address] [place] [address], [address] [place] [address] PCP - General Family Medicine 02/11/21 Lester Hicks MD [address] [place] [address] 2[address] [place] [address] Historical LMR Provider 07/28/17 Margaux Montanze MD [address] [place] [address], [address] [place] [address] [email or web address] Historical LMR Provider 07/28/17 Khang Kilgore MD [address] [place] [address], [address] [place] [address] Insurance Assigned Provider 01/12/24 Luis Ignacio DO [address] [place] [address], [address] [place] [address] Cardiology 06/28/22 06/16/24 Flo Esteban MD [address] [place] [address] [email or web address] Cardiothoracic Surgery 06/28/22 06/16/24 Neisha Pinto RN [address] [place] [address] [email or web address] PHCM Personal Insurance Advisor 02/26/23 06/10/25 Shreyas Wilson MD [address] [place] [address] Gastroenterology 06/17/24 Doretha Glynn MD [address] [place] [address] [address] [place] [address] Endocrinology 06/17/24 Izzy Hackett [address] [place] [address] [email or web address] PHCM Community Policy And Planning Manager 09/11/24 09/11/24 Radha Pereira, RANDI [address] [place] [address] PHCM Personal Insurance AdvisorWeight And Balance Control Agent 06/11/25 Jv Liz [address] [place] [address] Contact Lens Fitter 08/12/25 08/12/25 documented as of this encounter Additional Source Comments The information contained in this document represents components of the legal health record. It is not the complete legal health record.[facility]
--- OUTSIDE RECORDS SUMMARY | 2025-08-26 16:46 | XMS_ITS | Encounter Summary ---
Author Organization [facility] Address [address] [facility] [address] [place] [address] Phone Care Team Providers Care Platform Beater Name Role Phone Lester Hicks MD Unavailable [phone] Margaux Montanez MD Unavailable [phone] Johann Hanson CULINARY ARTS INSTRUCTOR Primary Care Provider [phone] Khang Kilgore MD Unavailable [phone] Shreyas Wilson MD Unavailable [phone] Doretha Glynn MD Unavailable [phone] Radha Pereira RN Unavailable [phone] Jv Liz Unavailable Encounter Details Date Type Department Care Team (Late st Contact Info) Description 07/23/2025 [facility] Medicine [address] [place] [address] Johann Hanson, CULINARY ARTS INSTRUCTOR 22 [facility], [address] [place], [place] [phone] [email or web address] Essential hypertension; Encounter for medication [...] EST Office Visit [facility] [address] [place] [address] Unknown, Unknown, Shreyas Limon MD [address] [place] [address] 09/21/2025 2:30 PM EST Office Visit [facility] Allergy [facility] Critical [facility] Medicine [address] [place] [address] Lester Hicks MD [address] [place] [address] 10/07/2025 7:15 AM EST Appointment [facility] [address] [place] [address] Lester Hicks MD [address] [place] [address] 10/13/2025 9:20 AM EST Office Visit [facility] [address] [place] [address] [place] [address] Doretha Glynn MD [address] [place] [address] [email or web address] 12/22/2025 8:30 AM EDT Office Visit [facility] [address] [place] [address] Johann Hanson CNP 22 [facility], [address] [place] [address] [email or web address] 06/30/2026 8:00 AM EDT Office Visit [facility] [address] [place] [address] Johann Hanson CNP 22 [facility], [address] [place] [address] [email or web address] documented as of this encounter Visit Diagnoses Diagnosis Essential hypertension Unspecified essential hypertension Encounter for medication monitoring Encounter for therapeutic drug monitoring documented in this encounter Additional Health Concerns Assessment Noted Time PHQ-9 Depression Total Score: 4 10/29/19 24 1:54 PM EST PHQ-2 Depression Total Score: 0 06/23/20 25 12:32 PM EDT documented as of this encounter Care Teams Platform Beater Relationship Specialty Start Date End Date Johann Hanson CNP [address] [place] [address], [address] [place] [address] PCP - General Family Medicine 02/11/21 Lester Hicks MD [address] [place] [address] Historical LMR Provider 07/28/17 Margaux Montanez MD [address] [place] [address], [address] [place] [address] Historical LMR Provider 07/28/17 Khang Kilgore MD [address] [place] [address], [address] [place] [address] Insurance Assigned Provider 01/12/24 Shreyas Wilson MD [address] [place] [address] Gastroenterology 06/17/24 Doretha Glynn MD [address] [place] [address] Endocrinology 06/17/24 Radha Pereira RN [address] [place] [address] [email or web address] PHCM Relationship Management LeadSong Lyricist 06/11/25 Jv Liz [address] [place] [address] Cutter In 08/12/25 08/12/25 documented as of this encounter Additional Source Comments The information contained in this document represents components of the legal health record. It is not the complete legal health record.[facility]
--- OUTSIDE RECORDS SUMMARY | 2025-08-26 16:46 | XMS_ITS | Encounter Summary ---
Author Organization [facility] Address [address] [place] [address] Phone Care Team Providers Care Loss Prevention Consultant Name Role Phone Lester Hicks MD Unavailable [phone] Margaux Montanez MD Unavailable Johann Hanson CNP Primary Care Provider [phone] Khang Kilgore MD Unavailable Neisha Pinto RN Unavailable [email or web address] Shreyas Wilson MD Unavailable Doretha Glynn MD Unavailable [phone] Izzy Hackett Unavailable [email or web address] Radha Pereira RN Unavailable Jv Liz Unavailable Encounter Details Date Type Department Care Team (Late st Contact Info) Description 06/17/2024 Procedure Pass [address] [address] Social History Tobacco Use Types Packs/Day Years [...] Description 09/10/2025 9:00 AM EST Office Visit [facility] Gastroenterology Clinic [address] [place] [address] Unknown, Unknown, Shreyas Limon MD [address] [place] [address] 09/21/2025 2:30 PM EST Office Visit [facility] [address] [place] [address] Lester Hicks MD [address] [place] [address] 10/07/2025 7:15 AM EST Appointment [facility] [address] [place] [address] Lester Hicks MD [address] [place] [address] 10/13/2025 9:20 AM EST Office Visit [facility] [address] [place] [address] Doretha Glynn MD [address] [place] [address] [email or web address] 12/22/2025 8:30 AM EDT [facility] [address] [place] [address] Johann Hanson CNP 22 [facility], [address] [place] [address] [email or web address] 06/30/2026 8:00 AM EDT Office Visit [facility] 22 [place] [address] Johann Hanson CNP 22 [facility], [address] [place] [address] [email or web address] documented as of this encounter Visit Diagnoses Not on filedocumented in this encounter Additional Health Concerns Assessment Noted Time PHQ-9 Depression Total Score: 4 10/29/19 24 1:54 PM EST PHQ-2 Depression Total Score: 0 06/23/20 25 12:32 PM EDT documented as of this encounter Care Teams Loss Prevention Consultant Relationship Specialty Start Date End Date Johann Hanson CNP [address] [place] [address], [address] [place] [address] PCP - General Family Medicine 02/11/21 Lester Hicks MD [address] [place] [address] Historical LMR Provider 07/28/17 Margaux Montanez MD [address] [place] [address], [address] [place] [address] Historical LMR Provider 07/28/17 Khang Kilgore MD [address] [place] [address], [address] [place] [address] Insurance Assigned Provider 01/12/24 Neisha Pinto, RN 22 [facility], [address] [place] [address] [email or web address] PHCM Anesthesiology Physician Assistant 02/26/23 06/10/25 Shreyas Wilson MD [address] [place] [address] Gastroenterology 06/17/24 Doretha Glynn MD [address] [place] [address] [address] [place] [address] Endocrinology 06/17/24 Izzy Hackett [address] [place] [address] [email or web address] PHCM Community Product Transfer Pumper 09/11/24 09/11/24 Radha Pereira, RANDI [address] [place] [address] PHC Anesthesiology Physician AssistantLight Armored Reconnaissance Officer 06/11/25 Jv Liz [address] [place] [address] [employer] Architect 08/12/25 08/12/25 documented as of this encounter Additional Source Comments The information contained in this document represents components of the legal health record. It is not the complete legal health record.[facility]
--- OUTSIDE RECORDS SUMMARY | 2025-08-26 16:46 | XMS_ITS | Encounter Summary ---
Author Organization [facility] Address [address] [facility] [address] [place] [address] Phone Care Team Providers Care Web Services Manager Name Role Phone Lester Hicks MD Unavailable [phone] Margaux Montanez MD Unavailable [phone] Johann Hanson CNP Primary Care Provider [phone] Khang Kilgore MD Unavailable [phone] Neisha Pinto RN Unavailable [email or web address] Shreyas Wilson MD Unavailable Doretha Glynn MD Unavailable [phone] Radha Pereira RN Unavailable Jv Liz Unavailable Reason for Visit * Reason Comments Medication Refill Encounter Details Date Type Department Care Team (Late st Contact Info) Description 06/05/2025 Refill [facility] Rheumatology 22 [place], [place] [phone] Margaux Montanez MD [address] [facility], [address] [place] [address] [email or web address] Medication Refill Social History Tobacco Use Types [...] GED, job training, learning the [place] language, technical skills, or developing parenting skills)? [...] Office Visit [facility] [address] [place] [address] Unknown, Unknown, Shreyas Limon MD [address] [place] [address] 09/21/2025 2:30 PM EST Office Visit [facility] Pulmonary, Allergy and Critical Care Medicine 10 [place] [address] Lester Hicks MD [address] [place] [address] 10/07/2025 7:15 AM EST Appointment [facility] [address] [place] [address] Lester Hicks MD [address] [place] [address] 10/13/2025 9:20 AM EST Office Visit [facility] Endocrinology 22 [place] [address] Doretha Glynn MD [address] [place] [address] [email or web address] 12/22/2025 8:30 AM EDT Office Visit [address] [place] [address] Johann Hanson CNP [address] [place] [address], [address] [place] [address] [email or web address] 06/30/2026 8:00 AM EDT Office Visit [address] [address] Johann Hanson CNP [address] [place] [address], [address] [place] [address] [email or web address] documented as of this encounter Visit Diagnoses Diagnosis Inflammatory arthritis Unspecified inflammatory polyarthropathy documented in this encounter Additional Health Concerns Assessment Noted Time PHQ-9 Depression Total Score: 4 10/29/19 24 1:54 PM EST PHQ-2 Depression Total Score: 0 06/10/20 24 9:22 AM EDT documented as of this encounter Care Teams Web Services Manager Relationship Specialty Start Date End Date Johann Hanson CNP [address] [place] [address], [address] [place] [address] [email or web address] PCP - General Family Medicine 02/11/21 Lester Hicks MD [address] [place] [address] Historical LMR Provider 07/28/17 Margaux Montanez MD [address] [facility], [address] [place] [address] Historical LMR Provider 07/28/17 Khang Kilgore MD [address] [facility] [place] [address] Insurance Assigned Provider 01/12/24 Neisha Pinto, RANDI [address] [facility] [place] [address] [email or web address] PHCM Digital Experience Manager 02/26/23 06/10/25 Shreyas Wilson MD [address] [place] [address] Gastroenterology 06/17/24 Doretha Glynn MD [address] [place] [address] 3rd [place] [address] Endocrinology 06/17/24 Radha Pereira, RN [address] [place] [address] PHC Digital Experience ManagerTube Bender 06/11/25 Jv Liz [address] [place] [address] Medical Transcriptionist 08/12/25 08/12/25 documented as of this encounter Additional Source Comments The information contained in this document represents components of the legal health record. It is not the complete legal health record.[facility]
--- OUTSIDE RECORDS SUMMARY | 2025-08-26 16:46 | XMS_ITS | Encounter Summary ---
Author Organization [facility] Address [address] [facility] [address] [place] [address] Phone Care Team Providers Care Crew Member Name Role Phone Lester Hicks MD Unavailable [phone] Margaux Montanez MD Unavailable Johann Hanson SENIOR WEB APPLICATIONS DEVELOPER Primary Care Provider [phone] Khang Kilgore MD Unavailable Shreyas Wilson MD Unavailable Doretha Glynn MD Unavailable [phone] Radha Pereira RN Unavailable [phone] Jv Liz Unavailable Reason for Visit * Reason Onset Date Comments Lab sample 07/03/2025 Encounter Details Date Type Department Care Team (Late st Contact Info) Description 07/03/2025 Telephone [facility] [address] [place] [address] Johann Hanson, TIFFANIE [address] [facility] [place] [address] [email or web address] Lab sample Social History Tobacco Use Types [...] I put a note in for front office attendant not to charge a copay. * [...] when this should be done. Central Support Accounts Receivable Coordinator (Please do not reply to this user; this inbox is not monitored.) Thank you. documented in this encounter Plan of Treatment Upcoming Encounters Date Type Department Care Team (Late st Contact Info) Description 09/10/2025 9:00 AM EST Office Visit [facility] 10 [place] [address] Unknown, Unknown, Shreyas Limon MD [address] [address] 09/21/2025 2:30 PM EST Office Visit [facility] Pulmonary, Allergy and Critical Care Medicine 10 [place] [address] Lester Hicks MD [address] [place] [address] 10/07/2025 7:15 AM EST Appointment [facility] [address] [place] [address] Lester Hicks MD [address] [place] [address] 10/13/2025 9:20 AM EST Office Visit [facility] [address] [place] [address] Doretha Glynn MD [address] [place] [address] [email or web address] 12/22/2025 8:30 AM EDT Office Visit [address] [place] [address] Johann Hanson SENIOR WEB APPLICATIONS DEVELOPER [address] [place] [address], [address] [place] [address] [email or web address] 06/30/2026 8:00 AM EDT Office Visit [address] [place] [address] Johann Hanson SENIOR WEB APPLICATIONS DEVELOPER [address] [place] [address], [address] [place] [address] [email or web address] documented as of this encounter Visit Diagnoses Not on filedocumented in this encounter Additional Health Concerns Assessment Noted Time PHQ-9 Depression Total Score: 4 10/29/19 24 1:54 PM EST PHQ-2 Depression Total Score: 0 06/23/20 25 12:32 PM EDT documented as of this encounter Care Teams Crew Member Relationship Specialty Start Date End Date Johann Hanson CNP [address] [place] [address], [address] [place] [address] PCP - General Family Medicine 02/11/21 Lester Hicks MD [address] [place] [address] [email or web address] Historical LMR Provider 07/28/17 Margaux Montanez MD [address] [place] [address], [address] [place] [address] Historical LMR Provider 07/28/17 Khang Kilgore MD [address] [place] [address], [address] [place] [address] Insurance Assigned Provider 01/12/24 Shreyas Wilson MD [address] [place] [address] Gastroenterology 06/17/24 Doretha Glynn MD [address] [place] [address] Endocrinology 06/17/24 Radha Pereira, RN 10 [place] [address] [email or web address] PHC Saddle CutterEarly Childhood Director 06/11/25 Jv Liz [address] [place] [address] [email or web address] Family Development Specialist 08/12/25 08/12/25 documented as of this encounter Additional Source Comments The information contained in this document represents components of the legal health record. It is not the complete legal health record.[facility]
--- OUTSIDE RECORDS SUMMARY | 2025-08-26 16:46 | XMS_ITS | Encounter Summary ---
Author Organization [facility] Address [address] [facility] [address] [place] [address] Phone Care Team Providers Care Pharmacy Grad Intern Name Role Phone Lester Hicks MD Unavailable [phone] Margaux Montanez MD Unavailable Johann Hanson TIP PRINTER Primary Care Provider [phone] Khang Kilgore MD Unavailable [phone] Shreyas Wilson MD Unavailable [phone] Doretha Glynn MD Unavailable [phone] Radha Pereira RN Unavailable Jv Liz Unavailable Encounter Details Date Type Department Care Team (Late st Contact Info) Description 07/24/2025 Orders Only [facility] [address] [place] [address] Johann Hanson, TIP PRINTER [address] [facility] [place], [place] [phone] Social History Tobacco Use Types Packs/Day Years [...] Office Visit [facility] [address] [place] [address] Unknown, Unknown, Shreyas Limon MD [address] [place] [address] 09/21/2025 2:30 PM EST Office Visit [facility] Pulmonary, Allergy [facility] Critical Care Medicine [address] [place] [address] Lester Hicks MD [address] [place] [address] 10/07/2025 7:15 AM EST Appointment [facility] [address] [place] [address] Lester Hicks MD [address] [place] [address] 10/13/2025 9:20 AM EST Office Visit [facility] [address] [place] [address] Doretha Glynn MD [address] [place] [address] [email or web address] 12/22/2025 8:30 AM EDT Office Visit [facility] [address] [place] [address] Johann Hanson CNP [address] [facility] [place] [address] [email or web address] 06/30/2026 8:00 AM EDT Office Visit [facility] Medicine [address] [place] [address] Johann Hanson CNP [address] [facility] [place] [address] [email or web address] documented as of this encounter [...] documented as of this encounter Care Teams Pharmacy Grad Intern Relationship Specialty Start Date End Date Johann Hanson CNP [address] [facility] [place] [address] PCP - General Family Medicine 02/11/21 Lester Hicks MD [address] [place] [address] Historical LMR Provider 07/28/17 Margaux Montanez MD [address] [place] [address], [address] [place] [address] Historical LMR Provider 07/28/17 Khang Kilgore MD [address] [place] [address], [address] [place] [address] Insurance Assigned Provider 01/12/24 Shreyas Wilson MD [address] [place] [address] Gastroenterology 06/17/24 Doretha Glynn MD [address] [facility] 3rd [place] [address] Endocrinology 06/17/24 Radha Pereira, RN [address] [place] [address] [email or web address] PHCM Song And Dance PerformerMarble Installer Supervisor 06/11/25 Jv Liz [address] [place] [address] Pulper 08/12/25 08/12/25 documented as of this encounter Additional Source Comments The information contained in this document represents components of the legal health record. It is not the complete legal health record.[facility]
--- OUTSIDE RECORDS SUMMARY | 2025-08-26 16:46 | XMS_ITS | Encounter Summary ---
Author Organization [facility] Address [address] [place] [address] [place] [address] Phone Care Team Providers Care Fisher Purse Seine Name Role Phone Tricia Balderas DO Unavailable Lester Hicks MD Unavailable [phone] Margaux Montanez MD Unavailable Demario Floyd MD Unavailable Pam Benson MD Unavailable [phone] Adithya Campos [employer] DIRECTOR Unavailable Beatriz Donaldson CLARIFICATION OPERATOR Unavailable Beatriz Donaldson CLARIFICATION OPERATOR Primary Care Provider Mamta Whitney DO Primary Care Provider [phone] Mamta Whitney DO Primary Care Provider [phone] Johann Hanson [employer]UR[employer] DIRECTOR Primary Care Provider [phone] Khang Kilgore MD Unavailable Luis Ignacio DO Unavailable Flo Esteban MD Unavailable [phone] Dilan Rowland MD Unavailable [phone] Corby Prado MD Unavailable [phone] Neisha Pinto RN Unavailable [email or web address] Shreyas Wilson MD Unavailable Doretha Glynn MD Unavailable Izzy Hackett Unavailable [email or web address] Radha Pereira RN Unavailable [phone] Jv Liz Unavailable Encounter Details Date Type Department Care Team (Late Contact Info) Description 05/29/2019 Telephone [facility] Pulmonary, Allergy and Critical Care Medicine [address] [place] [address] Aishwarya Vasquez MD [address] [place] [address] [phone] [email or web address] Social History Tobacco Use Types Packs/Day Years [...] Upcoming Encounters Date Type Department Care Team ([facility] Contact Info) Description 09/10/2025 9:00 AM EST Office Visit [facility] Gastro[facility] 10 [place], [place] [phone] Unknown, Unknown, Shreyas Limon MD [address] [place] [phone] [email or web address] 09/21/2025 2:30 PM EST [facility] Pulmonary, Allergy and Critical Care Medicine 10 [place], [place] [phone] Lester Hicks MD [address] [place] [address] 10/07/2025 7:15 AM EST Appointment [facility] 30 [place] [address] Lester Hicks MD [address] [place] [address] 10/13/2025 9:20 AM EST Office Visit [facility] [address] [place] [address] Doretha Glynn MD [address] [place] [address] [email or web address] 12/22/2025 8:30 AM EDT Office Visit [address] [place] [address] Johann Hanson, SCHO[employer] OF NURSING DIRECTOR [address] [place] [address], [address] [place] [address] [email or web address] 06/30/2026 8:00 AM EDT Office Visit [address] [place] [address] Johann Hanson, [employer] OF NURSING DIRECTOR [address] [place] [address], [address] [place] [address] [email or web address] documented as of this encounter Visit Diagnoses Not on filedocumented in this encounter Additional Health Concerns Infection Onset Date Last Indicated Resolved Time CoV-Presumed 05/27/2022 05/27/2022 06/17/2022 1:21 AM EDT CoV-Presumed Comment:COVID-19 Added 10/12/2022 10/12/2022 10/13/2022 6:26 P M EST COVID-19 10/13/2022 10/13/2022 11/03/2022 1:21 AM EST COVID-19 10/07/2023 10/07/2023 10/28/2023 1:21 AM EST documented as of this encounter Care Teams Fisher Purse Seine Relationship Specialty Start Date End Date Anika Beatriz Ruth, CLARIFICATION OPERATOR [address] [place] [address] PCP - General Family Medicine 10/04/17 04/11/20 Mamta Whitney DO [address] [place] [address] [email or web address] PCP - General Family Medicine 04/12/20 02/08/21 Mamta Whitney DO [address] [place] [address] [email or web address] PCP - General Family Medicine 02/10/21 02/10/21 Johann Hanson CNP [address] [facility] [place] [address] [email or web address] PCP - General Family Medicine 02/11/21 Tricia Balderas DO [address] [place] [address] [email or web address] Historical LMR Provider 07/28/17 10/15/21 Lester Hicks MD [address] [place] [address] [email or web address] Historical LMR Provider 07/28/17 Margaux Montanez MD [address] [facility], [address] [place] [address] [email or web address] Historical LMR Provider 07/28/17 Demario Floyd MD [address] [place] [address] [email or web address] Historical LMR Provider 07/28/17 10/15/21 Pam Benson MD [address] [place] [address] [email or web address] Historical LMR Provider 07/28/17 10/15/21 Adithya Campos [employer] NUR[employer] DIRECTOR [address] [place] [address] [email or web address] Historical LMR Provider 07/28/17 12/25/21 Beatriz Donaldson NP [address] [place] [address] Historical LMR Provider 07/28/17 04/11/20 Khang Kilgore MD [address] [place] [address], [address] [place] [address] [email or web address] Insurance Assigned Provider 01/12/24 Luis Ignacio DO [address] [place] [address], [address] [place] [address] Cardiology 06/28/22 06/16/24 Flo Esteban MD [address] [place] [address] [place] [address] [email or web address] [email or web address] Surgery 06/28/22 06/16/24 Dilan Rowland MD [address] [place] [address], [address] [place] [address] [email or web address] Insurance Assigned Provider 07/15/22 08/13/22 Corby Prado MD [address] [place] [address], [address] [place] [address] [email or web address] Insurance Assigned Provider 08/13/22 09/16/22 Neisha Pinto RN [address] [place] [address], [address] [place] [address] [email or web address] PHCM Quarrying Manager 02/26/23 06/10/25 Shreyas Wilson MD [address] [place] [address] [email or web address] Gastroenterology 06/17/24 Doretha Glynn MD [address] [place] [address] [address] [place] [address] [email or web address] Endocrinology 06/17/24 Izzy Hackett [address] [place] [address] [email or web address] PHC Community Director Custom 09/11/24 09/11/24 Radha Pereira, RN [address] [place] [address] [email or web address] PHC Quarrying ManagerWorm Grower 06/11/25 Jv Liz [address] [place] [address] [email or web address] Lunchroom Supervisor 08/12/25 08/12/25 documented as of this encounter Additional Source Comments The information contained in this document represents components of the legal health record. It is not the complete legal health record.[facility]
--- OUTSIDE RECORDS SUMMARY | 2025-08-26 16:46 | XMS_ITS | Encounter Summary ---
Author Organization [facility] Address [address] [place] [address] [place] [address] Phone Care Team Providers Care Glove Stitcher Name Role Phone Tricia Balderas DO Unavailable Lester Hicks MD Unavailable [phone] Margaux Montanez MD Unavailable Demario Floyd MD Unavailable Pam Benson MD Unavailable [phone] Adithya Campos TAR DISTRIBUTOR OPERATOR Unavailable Beatriz Donaldson DOCTOR OF AUDIOLOGY Unavailable Beatriz Donaldson DOCTOR OF AUDIOLOGY Primary Care Provider Mamta Whitney DO Primary Care Provider [phone] Matma Whitney DO Primary Care Provider [phone] Johann Hanson TAR DISTRIBUTOR OPERATOR Primary Care Provider [phone] Khang Kilgore MD Unavailable Luis Ignacio DO Unavailable Flo Esteban MD Unavailable [phone] Dilan Rowland MD Unavailable [phone] Corby Prado MD Unavailable [phone] Neisha Pinto RN Unavailable [email or web address] Shreyas Wilson MD Unavailable Doretha Glynn MD Unavailable [phone] Izzy Hackett Unavailable sami Radha Pereira RN Unavailable Jv Liz Unavailable Encounter Details Date Type Department Care Team (Late st Contact Info) Description 01/10/2019 Procedure Pass [facility] Cardiovascular And Interventional Radiology [address] [place] [address] Social History Tobacco Use Types Packs/Day Years [...] Description 09/10/2025 9:00 AM EST Office Visit [facility] [address] [place] [address] Unknown, Unknown, Shreyas Limon MD [address] [place] [address] 09/21/2025 2:30 PM EST Office Visit [facility] Pulmonary, Allergy and Critical Care Medicine [address] [place] [address] Lester Hicks MD [address] [place] [address] 10/07/2025 7:15 AM EST Appointment [facility] PFT Lab [address] [place] [address] Lester Hicks MD [address] [place] [address] 10/13/2025 9:20 AM EST Office Visit [facility] Endocrinology [address] [place] [address] Doretha Glynn MD [address] [place] [address] [email or web address] 12/22/2025 8:30 AM EDT Office Visit [address] [place] [address] Johann Hanson, TAR DISTRIBUTOR OPERATOR [address] [place] [address], [address] [place] [address] [email or web address] 06/30/2026 8:00 AM EDT Office Visit [address] [place] [address] Johann Hanson, TAR DISTRIBUTOR OPERATOR [address] [place] [address], [address] [address] [email or web address] documented as of this encounter Visit Diagnoses Not on filedocumented in this encounter Additional Health Concerns Infection Onset Date Last Indicated Resolved Time CoV-Presumed 05/27/2022 05/27/2022 06/17/2022 1:21 AM EDT CoV-Presumed Comment:COVID-19 Added 10/12/2022 10/12/2022 10/13/2022 6:26 P M EST COVID-19 10/13/2022 10/13/2022 11/03/2022 1:21 AM EST COVID-19 10/07/2023 10/07/2023 10/28/2023 1:21 AM EST documented as of this encounter Care Teams Glove Stitcher Relationship Specialty Start Date End Date Beatriz Donaldson, DOCTOR OF AUDIOLOGY [address] [place] [address] PCP - General Family Medicine 10/04/17 04/11/20 Mamta Whitney DO [address] [place] [address] [email or web address] PCP - General Family Medicine 04/12/20 02/08/21 Mamta Whitney DO [address] [place] [address] [email or web address] PCP - General Family Medicine 02/10/21 02/10/21 Johann Hanson CNP [address] [place] [address], [address] [place] [address] [email or web address] PCP - General Family Medicine 02/11/21 Tricia Balderas DO [address] [place] [address] [email or web address] Historical LMR Provider 07/28/17 10/15/21 Lester Hicks MD [address] [place] [address] [email or web address] Historical LMR Provider 07/28/17 Margaux Montanez MD [address] [facility], [address] [place] [address] [email or web address] Historical LMR Provider 07/28/17 Demario Floyd MD [address] [place] [address] [email or web address] Historical LMR Provider 07/28/17 10/15/21 Pam Benson MD [address] [place] [address] [email or web address] Historical LMR Provider 07/28/17 10/15/21 Adithya Campos TAR DISTRIBUTOR OPERATOR [address] [place] [address] [email or web address] Historical LMR Provider 07/28/17 12/25/21 Beatriz Donaldson NP [address] [place] [address] Historical LMR Provider 07/28/17 04/11/20 Khang Kilgore MD [address] [place] [address], [address] [place] [address] [email or web address] Insurance Assigned Provider 01/12/24 Luis Ignacio DO [address] [place] [address], [address] [place] [address] [email or web address] Cardiology 06/28/22 06/16/24 Flo Esteban MD [address] [place] [address] [email or web address] Cardiothoracic Surgery 06/28/22 06/16/24 Dilan Rowland MD [address] [place] [address], [address] [place] [address] [email or web address] Insurance Assigned Provider 07/15/22 08/13/22 Corby Prado MD [address] [place] [address], [address] [place] [address] Insurance Assigned Provider 08/13/22 09/16/22 Neisha Pinto, RANDI [address] [place] [address], [address] [place] [address] [email or web address] PHCM Rn New Graduate 02/26/23 06/10/25 Shreyas Wilson MD [address] [place] [address] Gastroenterology 06/17/24 Doretha Glynn MD [address] [place] [address] Endocrinology 06/17/24 Izzy Hackett [address] [place] [address] [email or web address] [facility] Community Natural Gas Inspector 09/11/24 09/11/24 Radha Pereira, RANDI [address] [place] [address] [email or web address] PHC Rn New GraduateTechnical Buyer 06/11/25 Jv Liz [address] [place] [address] Manager Biologics 08/12/25 08/12/25 documented as of this encounter Additional Source Comments The information contained in this document represents components of the legal health record. It is not the complete legal health record.[facility]
== END 2025-08-26 08:59 | disposition home or self-care (01) ==
LOC: HO.US 08:58
PROVIDERS: PCP Nurse Practitioner Adult Health; Visit Provider Physician Assistant Medical
DX: R10.11 Right upper quadrant pain (principal)
CPT/HCPCS: 76700

== ENCOUNTER → 2025-08-26 09:26 | Outpatient (BNV) | payer OTHER, SELFPAY | PROVIDERS: PCP Nurse Practitioner Adult Health; Visit Provider Radiology Diagnostic Radiology | DX: N28.1 Cyst of kidney, acquired (principal); K83.1 Obstruction of bile duct | CPT/HCPCS: 76700 ==

== ENCOUNTER 2025-09-08 18:01 | Outpatient (REF) | payer OTHER, SELFPAY ==
--- OUTSIDE RECORDS SUMMARY | 2021-10-10 17:00 | XMS_ITS | Encounter Summary ---
Author Organization [facility] Address [address] [place] [address] [place] [address] Phone Care Team Providers Care Nuclear Technician Name Role Phone Tricia Balderas Unavailable Lester Hicks MD Unavailable Margaux Montanez MD Unavailable Demario Floyd MD Unavailable Pam Benson MD Unavailable Adithya Campos SURGERY AID Unavailable Johann Hanson CNP Primary Care Provider [phone] Encounter Details Date Type Department Care Team (Late st Contact Info) Description 10/10/2021 5:00 PM EST Hospital Encounter [facility] [address] [place] [address] Natacha Hernandez CNP 12 [place], [place] [phone] Social History Tobacco Use Types Packs/Day Years [...] high school, GED, job training, learning the [place] language, technical skills, or developing parenting skills)? [...] 12/07/2022 9:18 AM Alise Hamilton RN * [place] Suicide Severity Rating Scale (Screener/Recent Self-Report) Question [...] Care Team (Late st Contact Info) Description 09/01/2025 Procedure Pass [facility], [address] [address] 09/10/2025 9:00 AM EST Office Visit [facility] [address] [place] [address] Unknown, Unknown, Shreyas Limon MD [address] [place] [address] 09/21/2025 2:30 PM EST Office Visit [facility] All[facility] Critical [facility] [address] [place] [address] [place] [address] Lester Hicks MD [address] [place] [address] 10/07/2025 7:15 AM EST Appointment [facility] [address] [place] [address] Lester Hicks MD [address] [place] [address] 2nd [place] [address] 10/13/2025 9:20 AM EST Office Visit [facility] 22 [place] [address] Doretha Glynn MD [address] [place] [address] 3rd [place] [address] [email or web address] 10/15/2025 7:40 AM EST Appointment [facility] 30 [place] [address] Devorah Beck PA-C [address] [place] [address] [email or web address] 12/22/2025 8:30 AM EDT Office Visit [address] [place] [address] Johann Hanson, SURGERY AID [address] [place] [address], [address] [place] [address] [email or web address] 06/30/2026 8:00 AM EDT Office Visit [address] [place] [address] Johann Hanson, SURGERY AID [address] [place] [address], [address] [place] [address] [email or web address] documented as of this encounter Procedures Procedure [...] body heights. Increased anterolisthesis of L4 on A3grkam 2008, likely secondary to facet degenerative changes. Natacha Hernandez SURGERY AID IMG XR SPINE Final Resul t documented [...] documented as of this encounter Care Teams Nuclear Technician Relationship Specialty Start Date End Date Johann Hanson CNP 22 [facility], [address] [place] [address] [email or web address] PCP - General Family Medicine 02/11/21 Tricia Balderas DO 30 [place] [address] [email or web address] Historical LMR Provider 07/28/17 10/15/21 Lester Hicks MD [address] [place] [address] [email or web address] Historical LMR Provider 07/28/17 Margaux Montanez MD 22 [facility], [address] [place] [address] [email or web address] Historical LMR Provider 07/28/17 Demario Floyd MD [address] [place] [address] [email or web address] Historical LMR Provider 07/28/17 2 Pam Benson MD [address] [address] Historical LMR Provider 07/28/17 Adithya Campos CNP 15 [facility], [address] [place] [address] [email or web address] Historical LMR Provider 07/28/17 12/25/21 documented as of this encounter Additional Source Comments The information contained in this document represents components of the legal health record. It is not the complete legal health record.[facility]
--- NOTE | ~2025-09-08 | MR_ITS ---
EXAMINATION: MRCP HISTORY: ABNORMAL FINDINGS ON DX IMAGING COMPARISON: Correlation is made with an abdominal ultrasound dated 08/26/2025 CT of the abdomen dated 10/14/2024. TECHNIQUE: Axial gradient echo in and out of phase T1, axial T2 and fat suppressed T2, and coronal haste T2 with fat saturation images were obtained through the abdomen. 3D MRCP Reconstructed images and thick slab imaging of the biliary tree were obtained. FINDINGS: There is no significant signal loss within the liver on opposed phase imaging to suggest steatosis. There is a diverticulum off a left intrahepatic bile duct (choledochal cyst). There is fusiform dilatation of the common bile duct measuring up to 13 mm. No intraluminal filling defects are identified to suggest choledocholithiasis. The gallbladder is unremarkable. The spleen is enlarged. The pancreas is unremarkable. The pancreatic duct is normal in caliber. The adrenals are unremarkable. 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 There is a 1.9 cm right cyst and a 1.2 cm left renal cyst. There is a moderate hiatal hernia. No retroperitoneal lymphadenopathy or ascites is identified in the upper abdomen. The visualized bones demonstrate normal marrow signal intensity. MR/MR MRCP IMPRESSION: 1. Fusiform dilatation of the common bile duct. Diverticulum off a left intrahepatic bile duct (choledochal cyst). 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 No evidence of choledocholithiasis. 2. Splenomegaly. 3. Bilateral pelvic kidneys. Electronically signed by: Yovani Barry MD 09/09/2025 07:09 AM [facility]
--- OUTSIDE RECORDS SUMMARY | 2025-09-08 18:05 | XMS_ITS | Encounter Summary ---
Author Organization [facility] Address [address] [place] [address] Phone Care Team Providers Care Customer Solutions Specialist Name Role Phone Lester Hicks MD Unavailable [phone] Margaux Montanez MD Unavailable [phone] Johann Hanson CNP Primary Care Provider [phone] Khang Kilgore MD Unavailable Luis Ignacio DO Unavailable Flo Esteban MD Unavailable [phone] Neisha Pinto RN Unavailable [email or web address] Shreyas Wilson MD Unavailable Doretha Glynn MD Unavailable Izzy Hackett Unavailable [email or web address] Radha Pereira RN Unavailable [phone] Jv Liz Unavailable Encounter Details Date Type Department Care Team (Late st Contact Info) Description 12/08/2022 Procedure Pass [facility] Cardiovascular And Interventional Radiology [address] [place], [place] [id number] Social History Tobacco Use Types Packs/Day Years [...] st Contact Info) Description 09/01/2025 Procedure Pass [facility], [facility] - [address] [address] 09/10/2025 9:00 AM EST Office Visit [facility] Gastroenterology Clinic [address] [place] [address] Unknown, Unknown, Shreyas Limon MD [address] [place] [address] 09/21/2025 2:30 PM EST Office Visit [facility] Pulmonary, Allergy and Critical Care Medicine [address] [place] [address] [place] [address] Lester Hicks MD [address] [place] [address] 10/07/2025 7:15 AM EST Appointment [facility] PFT Lab [address] [place] [address] Lester Hicks MD [address] [place] [address] 10/13/2025 9:20 AM EST Office Visit [facility] End[facility]inology [address] [place] [address] Doretha Glynn MD [address] [place] [address] [email or web address] 10/15/2025 7:40 AM EST Appointment [address] [address] Devorah Beck PA-C [address] [place] [address] [email or web address] 12/22/2025 8:30 AM EDT Office Visit [address] [place] [address] Johann Hanson, TIFFANIE [address] [facility], [address] [place] [address] [email or web address] 06/30/2026 8:00 AM EDT Office Visit [address] [place] [address] Johann Hanson, SENIOR UX DEVELOPER [address] [facility], [address] [place] [address] [email or web address] documented as of this encounter Visit Diagnoses Not on filedocumented in this encounter Additional Health Concerns Infection Onset Date Last Indicated Resolved Time COVID-19 10/07/2023 10/07/2023 10/28/2023 1:21 AM EST Assessment Noted Time PHQ-2 Depression Total Score: 0 05/15/20 1:45 PM EDT documented as of this encounter Care Teams Customer Solutions Specialist Relationship Specialty Start Date End Date Johann Hanson CNP [address] [facility], [address] [place] [address] PCP - General Family Medicine 02/11/21 Lester Hicks MD [address] [place] [address] Historical LMR Provider 07/28/17 Margaux Montanez MD [address] [place] [address], [address] [place] [address] [email or web address] Historical LMR Provider 07/28/17 Khang Kilgore MD [address] [place] [address], [address] [place] [address] Insurance Assigned Provider 01/12/24 Luis Ignacio DO [address] [place] [address], [address] [place] [address] Cardiology 06/28/22 06/16/24 Flo Esteban MD [address] [place] [address] [email or web address] Cardiothoracic Surgery 06/28/22 06/16/24 Neisha Pinto RN [address] [place] [address] [email or web address] PHCM Psychology Physician 02/26/23 06/10/25 Shreyas Wilson MD [address] [place] [address] Gastroenterology 06/17/24 Doretha Glynn MD [address] [place] [address] Endocrinology 06/17/24 Izzy Hackett [address] [place] [address] [email or web address] PHCM Community Wash Tank Tender 09/11/24 09/11/24 Radha Pereira RN [address] [place] [address] PHCM Psychology PhysicianConvalescent Sitter 06/11/25 Jv Liz [address] [place] [address] Family Engagement Specialist 08/12/25 08/12/25 documented as of this encounter Additional Source Comments The information contained in this document represents components of the legal health record. It is not the complete legal health record.[facility]
--- OUTSIDE RECORDS SUMMARY | 2025-09-08 18:05 | XMS_ITS | Encounter Summary ---
Author Organization [facility] Address [address] [place] [address] [place] [address] Phone Care Team Providers Care Gymnastics Coach Or Instructor Name Role Phone Tricia Balderas DO Unavailable Lester Hicks MD Unavailable [phone] Margaux Montanez MD Unavailable Demario Floyd MD Unavailable Pam Benson MD Unavailable [phone] Adithya Campos REACTOR SERVICE OPERATOR Unavailable Beatriz Donaldson ADOBE DEVELOPER Unavailable Beatriz Donaldson ADOBE DEVELOPER Primary Care Provider Mamta Whitney DO Primary Care Provider [phone] Mamta Whitney DO Primary Care Provider [phone] Johann Hanson REACTOR SERVICE OPERATOR Primary Care Provider [phone] Khang Kilgore MD Unavailable Luis Ignacio DO Unavailable Flo Esteban MD Unavailable [phone] Dilan Rowland MD Unavailable [phone] Corby Prado MD Unavailable Neisha Pinto RN Unavailable [email or web address] Shreysa Wilson MD Unavailable Doretha Glynn MD Unavailable [phone] Izzy Hackett Unavailable [email or web address] Radha Pereira RN Unavailable Jv Liz Unavailable Encounter Details Date Type Department Care Team (Late st Contact Info) Description 05/20/2018 Ancillary Orders [facility] Department [address] [place] [address] Beatriz Donaldson, EARL [address] [place] [address] Lymphadenopathy; Generalized enlarged lymph nodes Social History [...] Department Care Team (Late Contact Info) Description 09/01/2025 Procedure Pass [facility] [address] [place] [address] 09/10/2025 9:00 AM EST Office Visit [facility] Gastroenterology Clinic [address] [place] [address] Unknown, Unknown, Shreyas Limon MD [address] [place] [address] [email or web address] 09/21/2025 2:30 PM EST Office Visit [facility] Pulmonary, Allergy and Critical Care Medicine 10 [place] [address] Lester Hicks MD [address] [place] [address] 10/07/2025 7:15 AM EST Appointment [facility] PFT Lab [address] [place] [address] Lester Hicks MD [address] [place] [address] 10/13/2025 9:20 AM EST Office Visit [facility] End[facility]inology [address] [place] [address] Doretha Glynn MD [address] [place] [address] [email or web address] 10/15/2025 7:40 AM EST Appointment [facility] [address] [place] [address] Devorah Beck PA-C [address] [place] [address] [email or web address] 12/22/2025 8:30 AM EDT Office Visit [address] [place] [address] Johann Hanson, REACTOR SERVICE OPERATOR [address] [place] [address], [address] [place] [address] [email or web address] 06/30/2026 8:00 AM EDT Office Visit [address] [place] [address] Johann Hanson, REACTOR SERVICE OPERATOR [address] [place] [address], [address] [place] [address] [email or web address] documented as of this encounter Visit [...] documented as of this encounter Care Teams Gymnastics Coach Or Instructor Relationship Specialty Start Date End Date Beatriz Donaldson ADOBE DEVELOPER [address] [place] [address] PCP - General Family Medicine 10/04/17 04/11/20 Mamta Whitney DO [address] [place] [address] [email or web address] PCP - General Family Medicine 04/12/20 02/08/21 Mamta Whitney DO [address] [place] [address] [email or web address] PCP - General Family Medicine 02/10/21 02/10/21 Johann Hanson CNP 22 [facility], [address] [place] [address] [email or web address] PCP - General Family Medicine 02/11/21 Tricia Balderas DO [address] [place] [address] [email or web address] Historical LMR Provider 07/28/17 10/15/21 Lester Hicks MD [address] [place] [address] [email or web address] Historical LMR Provider 07/28/17 Margaux Montanez MD [address] [place] [address], [address] [place] [address] [email or web address] Historical LMR Provider 07/28/17 Demario Floyd MD [address] [place] [address] [email or web address] Historical LMR Provider 07/28/17 10/15/21 Pam Benson MD [address] [place] [address] [email or web address] Historical LMR Provider 07/28/17 10/15/21 Adithya Campos, REACTOR SERVICE OPERATOR [address] [place] [address] [email or web address] Historical LMR Provider 07/28/17 12/25/21 Beatriz Donaldson, ADOBE DEVELOPER [address] [place] [address] Historical LMR Provider 07/28/17 04/11/20 Khang Kilgore MD [address] [place] [address], [address] [place] [address] [email or web address] Insurance Assigned Provider 01/12/24 Luis Ignacio DO [address] [place] [address], [address] [place] [address] Cardiology 06/28/22 06/16/24 Flo Esteban MD [address] [place] [address] [place] [address] [email or web address] [email or web address] Surgery 06/28/22 06/16/24 Dilan Rowland MD [address] [place] [address], [address] [place] [address] Insurance Assigned Provider 07/15/22 08/13/22 Corby Prado MD [address] [place] [address], [address] [place] [address] Insurance Assigned Provider 08/13/22 09/16/22 Neisha Pinto RN [address] [place] [address], [address] [place] [address] [email or web address] PHCM Business Professor 02/26/23 06/10/25 Shreyas Wilson MD [address] [place] [address] Gastroenterology 06/17/24 Doretha Glynn MD [address] [place] [address] [address] [place] [address] Endocrinology 06/17/24 Izzy Hackett [address] [place] [address] [email or web address] PHCM Community Commercial Real Estate Paralegal 09/11/24 09/11/24 Radha Pereira, RN [address] [place] [address] [email or web address] PHC Business ProfessorPrivate Pilot 06/11/25 Jv Liz [address] [place] [address] [email or web address] Garbage Truck Helper 08/12/25 08/12/25 documented as of this encounter Additional Source Comments The information contained in this document represents components of the legal health record. It is not the complete legal health record.[facility]
--- OUTSIDE RECORDS SUMMARY | 2025-09-08 18:05 | XMS_ITS | Encounter Summary ---
Author Organization [facility] Address [address] [place] [address] [place] [address] Phone Care Team Providers Care Wash Operator Name Role Phone Tricia Balderas DO Unavailable Lester Hicks MD Unavailable [phone] Margaux Montanez MD Unavailable Demario Floyd MD Unavailable Pam Benson MD Unavailable [phone] Adithya Campos COOPERATIVE EXTENSION AGENT Unavailable Beatriz Donaldson SIX SIGMA PROJECT MANAGER Unavailable Beatriz Donaldson SIX SIGMA PROJECT MANAGER Primary Care Provider Mamta Whitney DO Primary Care Provider [phone] Mamta Whintey DO Primary Care Provider [phone] Johann Hanson COOPERATIVE EXTENSION AGENT Primary Care Provider [phone] Khang Kilgore MD Unavailable Luis Ignacio DO Unavailable Flo Esteban MD Unavailable [phone] Dilan Rowland MD Unavailable [phone] Corby Prado MD Unavailable [phone] Neisha Pinto RN Unavailable [email or web address] Shreyas Wilson MD Unavailable [phone] Doretha Glynn MD Unavailable [phone] Izzy Hackett Unavailable [email or web address] Radha Pereira RN Unavailable [phone] Jv Liz Unavailable Encounter Details Date Type Department Care Team (Late st Contact Info) Description 06/21/2018 Transcribe Orders [facility] Specimen Processing [address] [place] [address] Beatriz Donaldson NP [address] [place] [address] Routine general medical examination at a health care facility (Primary Dx); Sjogren's syndrome with lung involvement; Inflammatory arthritis; 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, manager terminal, current use Social History Tobacco Use Types [...] st Contact Info) Description 09/01/2025 Procedure Pass [facility], [facility] [address] [place] [address] 09/10/2025 9:00 AM EST Office Visit [facility] [address] [place] [address] [phone] Unknown, Unknown, Shreyas Limon MD [address] [place] [address] [phone] 09/21/2025 2:30 PM EST Office Visit [facility] Pulmonary, Allergy and Critical Care Medicine [address] [place] [address] [place] [address] Lester Hicks MD [address] [place] [address] 10/07/2025 7:15 AM EST Appointment [facility] PFT Lab [address] [place] [address] Lester Hicks MD [address] [place] [address] 10/13/2025 9:20 AM EST Office Visit [facility] End[facility]inology [address] [place] [address] [place] [address] Doretha Glynn MD [address] [place] [address] [email or web address] 10/15/2025 7:40 AM EST Appointment [address] [address] Devorah Beck PA-C [address] [place] [address] [email or web address] 12/22/2025 8:30 AM EDT Office Visit [address] [place] [address] Johann Hanson, COOPERATIVE EXTENSION AGENT [address] [place] [address], [address] [place] [address] [email or web address] 06/30/2026 8:00 AM EDT Office Visit [address] [place] [place] [address] Johann Hanson COOPERATIVE EXTENSION AGENT [address] [place] [address], [address] [place] [address] [email or web address] documented as of this encounter Procedures Procedure Name Priority Date/Time Associated Diagnosis Comments IRON Routine 06/21/2018 4:35 PM EDT Routine general medical examination at a health care facility COMPREHENSIVE METABOLIC PANEL (CMP) Routine 06/21/2018 4:35 PM EDT Sjogren's syndrome with lung involvement Inflammatory arthritis 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, senior care, current use SEDIMENTATION RATE (ESR) Routine 06/21/2018 4:35 PM EDT Sjogren's syndrome with lung involvement Inflammatory arthritis 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, senior care, current use CBC AND DIFFERENTIAL Routine 06/21/2018 4:35 PM EDT Sjogren's syndrome with lung involvement Inflammatory arthritis 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, manager terminal, current use COMPLEMENT C3 Routine 06/21/2018 4:35 PM EDT Sjogren's syndrome with lung involvement Inflammatory arthritis 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, senior care, current use COMPLEMENT C4 Routine 06/21/2018 4:35 PM EDT Sjogren's syndrome with lung involvement Inflammatory arthritis 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, senior care, current use C-REACTIVE PROTEIN (CRP) Routine 06/21/2018 4:35 PM EDT Sjogren's syndrome with lung involvement Inflammatory arthritis 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, manager terminal, current use THYROID STIMULATING HORMONE (TSH) Routine 06/21/2018 4:35 PM EDT Routine general medical examination at a health care facility FERRITIN Routine 06/21/2018 4:35 PM EDT Routine general medical examination at a health care facility documented in this encounter Results * Complement C4 (06/21/2018 4:35 PM EDT) COMPLEMENT C4 23 14 - 40 mg/dL [facility] DPT OF LAB MED AND PAT+ Blood 06/21/2018 4:35 PM EDT 06/22/2018 1:28 PM EDT us Margaux Montanez MD LAB BLOOD BKR ORDERABLES Final Result [facility] DPT OF LAB MED AND PAT+ [address] [place] [address] * Complement C3 (06/21/2018 4:35 PM EDT) COMPLEMENT C3 116 75 - 175 mg/dL [facility] DPT OF LAB MED AND PAT+ Blood 06/21/2018 4:35 PM EDT 06/22/2018 1:28 PM EDT us Margaux Montanez MD LAB BLOOD BKR ORDERABLES Final Result Performing Organization Address [facility] Co de Phone Number [facility] DPT OF LAB MED AND PAT+ [address] [place] [address] * Sedimentation rate (ESR) (06/21/2018 4:35 PM EDT) ESR 4 0 - 30 mm/h [facility] Blood 06/21/2018 4:35 PM EDT 06/21/2018 5:56 PM EDT Result Rob Montanez MD LAB BLOOD BKR ORDERABLES Final Result [facility] [address] [place] [address] * C-Reactive Protein (06/21/2018 4:35 PM EDT) C REACTIVE PROTEIN 0.5 0.0 - 4.0 mg/L [facility] Blood 06/21/2018 4:35 PM EDT 06/21/2018 5:56 PM EDT us Margaux Montanez MD LAB BLOOD BKR ORDERABLES Final Result [address] [address] * Comprehensive metabolic panel (06/21/2018 4:35 PM EDT) SODIUM 144 133 - 146 mmol/L [facility] POTASSIUM 3.6 3.3 - 5.1 mmol/L [facility] CHLORIDE 100 96 - 108 mmol/L [facility] CO2 30 21 - 35 mmol/L [facility] BUN 13 6 - 19 mg/dL [facility] CREATININE 0.70 0.5 - 1.5 mg/dL [facility] GLUCOSE 89 70 - 99 mg/dL [facility] ALBUMIN 4.3 3.9 - 4.8 g/dL [facility] TOTAL PROTEIN 6.7 6.5 - 8.0 g/dL [facility] CALCIUM 9.9 8.4 - 10.3 mg/dL [facility] ALKALINE PHOSPHATASE 59 39 - 117 U/L [facility] TOTAL BILIRUBIN 0.2 0.0 - 1.2 mg/dL [facility] AST 22 0 - 37 U/L [facility] ALT 16 0 - 40 U/L [facility] GLOBULIN 2.4 1 - 4.8 g/dL [facility] EGFR 97 >59 mL/min/1.7 3m2 [facility] Comment:If patient is black, multiply result by 1.159. Estimated glomerular filtration rate calculated using the CKD-EPI equation. ANION GAP 18 10 - 20 mmol/L [facility] Blood 06/21/2018 4:35 PM EDT 06/21/2018 5:56 PM EDT us Margaux Montanez MD LAB BLOOD BKR ORDERABLES Final Result [address] [address] * CBC and differential (06/21/2018 4:35 PM EDT) WBC 5.00 3.40 - 11.20 K/uL [facility] RBC 4.23 3.80 - 4.80 M/uL [facility] HGB 13.2 12.0 - 15.0 g/dL [facility] HCT 39.5 36.0 - 46.0 % [facility] PLT 229 130 - 400 K/uL [facility] MCV 93.4 79.0 - 98.0 fL [facility] MCH 31.2 27.0 - 34.8 pg [facility] MCHC 33.4 31.5 - 36.0 g/dL [facility] RDW 12.9 10.8 - 14.6 % [facility] MPV 10.5 9.4 - 12.4 fl [facility] NRBC 0.00 /100 WBCs [facility] ABSOLUTE NRBC 0.00 K/uL [facility] DIFF METHOD Auto [facility] NEUTS 53.8 45.30 - 77.70 % [facility] LYMPHS 34.4 12.30 - 39.70 % [facility] MONOS 8.2 4.10 - 12.80 % [facility] EOS 2.6 0 - 7.2 % [facility] BASOS 0.8 0 - 2.80 % [facility] Granulocytes, immature (%) 0.2 0.0 - 0.9 % [facility] ABSOLUTE NEUTS 2.69 1.40 - 7.70 K/uL [facility] ABSOLUTE LYMPHS 1.72 0.60 - 3.20 K/uL [facility] ABSOLUTE MONOS 0.41 0.11 - 0.59 K/uL [facility] ABSOLUTE EOS 0.13 0.01 - 0.50 K/uL [facility] ABSOLUTE BASOS 0.04 0.00 - 0.08 K/uL [facility] Granulocytes, immature 0.01 0.00 - 0.05 K/uL [facility] Blood 06/21/2018 4:35 PM EDT 06/21/2018 5:56 PM EDT us Margaux Montanez MD LAB BLOOD BKR ORDERABLES Final Result [facility] [address] [place] [address] * Ferritin (06/21/2018 4:35 PM EDT) FERRITIN 43 13 - 150 ug/L [facility] Blood 06/21/2018 4:35 PM EDT 06/21/2018 5:56 PM EDT us Beatriz S Anika SIX SIGMA PROJECT MANAGER LAB BLOOD BKR ORDERABLES Fin al Result Performing Organization Address [facility] de Phone Number [address] [address] * Iron (06/21/2018 4:35 PM EDT) IRON 64 30 - 160 ug/dL [facility] Blood 06/21/2018 4:35 PM EDT 06/21/2018 5:56 PM EDT Beatriz S Anika SIX SIGMA PROJECT MANAGER LAB BLOOD ORDERABLES Final R esult Performing Organization Address [facility] de Phone Number [address] [address] * (ABNORMAL) TSH (06/21/2018 4:35 PM EDT) TSH 0.04(L) 0.27 - 4.20 uIU/mL [facility] Blood 06/21/2018 4:35 PM EDT 06/21/2018 5:56 PM EDT Beatriz S Anika SIX SIGMA PROJECT MANAGER LAB BLOOD BKR ORDERABLES Fin al Result Performing Organization Address [facility] de Phone Number [address] [address] documented in this encounter Visit Diagnoses Diagnosis Routine general medical examination at a health care facility- Primary Sjogren's syndrome with lung involvement Inflammatory arthritis Unspecified inflammatory polyarthropathy 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, manager terminal, current use documented in this encounter Additional Health Concerns Infection Onset Date Last Indicated Resolved Time CoV-Presumed 05/27/2022 05/27/2022 06/17/2022 1:21 AM EDT CoV-Presumed Comment:COVID-19 Added 10/12/2022 10/12/2022 10/13/2022 6:26 P M EST COVID-19 10/13/2022 10/13/2022 11/03/2022 1:21 AM EST COVID-19 10/07/2023 10/07/2023 10/28/2023 1:21 AM EST documented as of this encounter Care Teams Wash Operator Relationship Specialty Start Date End Date Beatriz Donaldson NP [address] [place] [address] PCP - General Family Medicine 10/04/17 04/11/20 Mamta Whitney DO [address] [place] [address] [email or web address] PCP - General Family Medicine 04/12/20 02/08/21 Mamta Whtiney DO [address] [place] [address] [email or web address] PCP - General Family Medicine 02/10/21 02/10/21 Johann Hanson CNP [address] [facility], [address] [place] [address] [email or web address] PCP - General Family Medicine 02/11/21 Tricia Balderas DO [address] [place] [address] [email or web address] Historical LMR Provider 07/28/17 10/15/21 Lester Hicks MD [address] [place] [address] [email or web address] Historical LMR Provider 07/28/17 Margaux Montanez MD [address] [place] [address], [address] [place] [address] [email or web address] Historical LMR Provider 07/28/17 Demario Floyd MD [address] [place] [address] [email or web address] Historical LMR Provider 07/28/17 10/15/21 Pam Benson MD [address] [place] [address] [email or web address] Historical LMR Provider 07/28/17 10/15/21 Adithya Campos COOPERATIVE EXTENSION AGENT [address] [place] [address] [email or web address] Historical LMR Provider 07/28/17 12/25/21 Beatriz Donaldson, SIX SIGMA PROJECT MANAGER [address] [place] [address] Historical LMR Provider 07/28/17 04/11/20 Khang Kilgore MD [address] [place] [address], [address] [place] [address] [email or web address] Insurance Assigned Provider 01/12/24 Luis Ignacio DO [address] [place] [address], [address] [place] [address] Cardiology 06/28/22 06/16/24 Flo Esteban MD [address] [place] [address] [address] [place] [address] [email or web address] [email or web address] Surgery 06/28/22 06/16/24 Dilan Rowland MD [address] [place] [address], [address] [place] [address] [email or web address] Insurance Assigned Provider 07/15/22 08/13/22 Corby Prado MD [address] [place] [address], [address] [place] [address] [email or web address] Insurance Assigned Provider 08/13/22 09/16/22 Neisha Pinto RN [address] [place] [address], [address] [place] [address] [email or web address] 02/26/23 06/10/25 Sheryas Wilson MD [address] [place] [address] Gastroenterology 06/17/24 Doretha Glynn MD [address] [place] [address] 3rd [place] [address] Endocrinology 06/17/24 Izzy Hackett [address] [place] [address] [email or web address] [facility] Community Engineering Vice President 09/11/24 09/11/24 Radha Pereira, RN [address] [place] [address] [email or web address] PHCM Glassware EngraverMetal Pattern Maker 06/11/25 Jv Liz [address] [place] [address] [email or web address] Counter Top Maker 08/12/25 08/12/25 documented as of this encounter Additional Source Comments The information contained in this document represents components of the legal health record. It is not the complete legal health record.[facility]
--- OUTSIDE RECORDS SUMMARY | 2025-09-08 18:05 | XMS_ITS | Encounter Summary ---
Author Organization [facility] Address [address] [address] Phone Care Team Providers Care Maintainer Operator Name Role Phone Lester Hicks MD Unavailable [phone] Margaux Montanez MD Unavailable Johann Hanson CNP Primary Care Provider [phone] Khang Kilgore MD Unavailable [phone] Shreyas [place] MD Unavailable Doretha Glynn MD Unavailable [phone] Radha Pereira RN Unavailable [phone] Reason for Visit * Reason Onset Date Comments Results 09/01/2025 Encounter Details Date Type Department Care Team (Late st Contact Info) Description 09/01/2025 Telephone [employer] Medical [facility] Medicine [address] [place] [address] [phone] Karuna Carpio, RN [address] [place], [place] [phone] [email or web address] Results Social History Tobacco Use Types Packs/Day Years [...] as of this encounter Progress Notes * Karuna Carpio RN - 09/01/2025 8:28 AM EST Images from the original note were not included. Left message to return call and best time to reach or give permission to leave a detailed message. Faxed lab order to [facility] [place] lab at F: [phone] through [employer] Message Received: Yesterday Johann Hanson, REIMBURSEMENT CONSULTANT P [facility] Leanne These are pre-operative labs. K was slightly low at 3.1, CO2 31. I'd like her to repeat that this week. BMP ordered. Please fax to [facility] [place] [place]. documented in this encounter Plan of Treatment Upcoming Encounters Date Type Department Care Team (Late st Contact Info) Description 09/01/2025 Procedure Pass [facility], [address] [address] 09/10/2025 9:00 AM EST Office Visit [facility] [address] [place] [address] Unknown, Unknown, Shreyas Limon MD [address] [place] [address] 09/21/2025 2:30 PM EST Office Visit [facility] Pulmonary, Allergy and Critical Care Medicine [address] [place] [address] [place] [address] Lester Hicks MD [address] [place] [address] 10/07/2025 7:15 AM EST Appointment [facility] [address] [place] [address] Lester Hicks MD [address] [place] [address] 10/13/2025 9:20 AM EST Office Visit [facility] End[facility]inology [address] [place] [address] [place] [address] Doretha Glynn MD [address] [place] [address] [email or web address] 10/15/2025 7:40 AM EST Appointment [facility], [facility] [address] [place] [address] Devorah Beck PA-C [address] [place] [address] [email or web address] 12/22/2025 8:30 AM EDT Office Visit [address] [place] [address] Johann Hanson, REIMBURSEMENT CONSULTANT [address] [place] [address], [address] [place] [address] [email or web address] 06/30/2026 8:00 AM EDT Office Visit [address] [place] [address] Johann Hanson, REIMBURSEMENT CONSULTANT [address] [place] [address], [address] [address] [email or web address] documented as of this encounter Visit Diagnoses Not on filedocumented in this encounter Additional Health Concerns Assessment Noted Time PHQ-9 Depression Total Score: 4 10/29/19 24 1:54 PM EST PHQ-2 Depression Total Score: 0 06/23/20 25 12:32 PM EDT documented as of this encounter Care Teams Maintainer Operator Relationship Specialty Start Date End Date CarmenJohann evans CNP [address] [place] [address], [address] [place] [address] [email or web address] PCP - General Family Medicine 02/11/21 Lester Hicks MD [address] [place] [address] Historical LMR Provider 07/28/17 Margaux Montanez MD [address] [place] [address], [address] [place] [address] [email or web address] Historical LMR Provider 07/28/17 Khang Kilgore MD [address] [place] [address], [address] [place] [address] [email or web address] Insurance Assigned Provider 01/12/24 Shreyas Wilson MD [address] [place] [address] Gastroenterology 06/17/24 Doretha Glynn MD [address] [place] [address] [email or web address] Endocrinology 06/17/24 Radha Pereira RN [address] [place] [address] [email or web address] PHCM Geotechnicial Properties TechnicianHydrogenation Still Operator 06/11/25 documented as of this encounter Additional Source Comments The information contained in this document represents components of the legal health record. It is not the complete legal health record.[facility]
--- OUTSIDE RECORDS SUMMARY | 2025-09-08 18:05 | XMS_ITS | Encounter Summary ---
Author Organization [facility] Address [address] [place] [address] Phone Care Team Providers Care Renal Dialysis Technician Name Role Phone Lester Hicks MD Unavailable [phone] Margaux Montanez MD Unavailable Johann Hanson CNP Primary Care Provider [phone] Khang Kilgore MD Unavailable Neisha Pinto RN Unavailable [email or web address] Shreyas Wilson MD Unavailable [phone] Doretha Glynn MD Unavailable [phone] Izzy Hackett Unavailable [email or web address] Radha Pereira RN Unavailable [phone] Jv Liz Unavailable Encounter Details Date Type Department Care Team (Late st Contact Info) Description 06/20/2024 Procedure Pass [facility] Endoscopy Admitting Dept Virtual Department [address] [place] [address] Social History Tobacco Use Types Packs/Day [...] high school, GED, job training, learning the [place] language, technical skills, or developing parenting skills)? [...] st Contact Info) Description 09/01/2025 Procedure Pass [facility], [facility] - [address] [address] 09/10/2025 9:00 AM EST Office Visit [facility] Gastroenterology Clinic [address] [place] [address] Unknown, Unknown, Shreyas Limon MD [address] [place] [address] 09/21/2025 2:30 PM EST Office Visit [facility] Pulmonary, Allergy and Critical Care Medicine [address] [place] [address] Lester Hicks MD [address] [place] [address] 10/07/2025 7:15 AM EST Appointment [facility] [address] [place] [address] Lester Hicks MD [address] [place] [address] 10/13/2025 9:20 AM EST Office Visit [facility] [address] [place] [address] Doretha Glynn MD [address] [place] [address] [email or web address] 10/15/2025 7:40 AM EST Appointment [facility], [facility] - [facility] [address] [place] [address] Devorah Beck PA-C [address] [place] [address] [email or web address] 12/22/2025 8:30 AM EDT Office Visit [facility] [address] [place] [address] Johann Hanson CNP [address] [place] [address], [address] [place] [address] [email or web address] 06/30/2026 8:00 AM EDT Office Visit [facility] [address] [place] [address] Johann Hanson CNP [address] [place] [address], [address] [place] [address] [email or web address] documented as of this encounter Visit Diagnoses Not on filedocumented in this encounter Additional Health Concerns Assessment Noted Time PHQ-9 Depression Total Score: 4 10/29/19 24 1:54 PM EST PHQ-2 Depression Total Score: 0 06/10/20 24 9:22 AM EDT documented as of this encounter Care Teams Renal Dialysis Technician Relationship Specialty Start Date End Date Johann Hanosn CNP [address] [place] [address], [address] [place] [address] PCP - General Family Medicine 02/11/21 Lester iHcks MD [address] [place] [address] Historical LMR Provider 07/28/17 Margaux Montanez MD [address] [place] [address], [address] [place] [address] Historical LMR Provider 07/28/17 Khang Kilgore MD [address] [facility], [address] [place] [address] Insurance Assigned Provider 01/12/24 Neisha Pinto RN [address] [facility], [address] [place] [address] [email or web address] PHCM Inside Sales Advertising Executive 02/26/23 06/10/25 Shreyas Wilson MD [address] [place] [address] Gastroenterology 06/17/24 Doretha Glynn MD [address] [place] [address] 3rd [place] [address] Endocrinology 06/17/24 Izzy Hackett [address] [place] [address] [email or web address] PHC Community Cardiac Cath Technician 09/11/24 09/11/24 Radha Pereira, RANDI [address] [place] [address] PHCM Inside Sales Advertising ExecutivePurchasing/Receiving 06/11/25 Jv Liz [address] [place] [address] Clerical Dentist Assistant 08/12/25 08/12/25 documented as of this encounter Additional Source Comments The information contained in this document represents components of the legal health record. It is not the complete legal health record.[facility]
--- OUTSIDE RECORDS SUMMARY | 2025-09-08 18:05 | XMS_ITS | Encounter Summary ---
Author Organization [facility] Address [address] [place] [address] Phone Care Team Providers Care Bait Man Name Role Phone Lester Hicks MD Unavailable [phone] Margaux Montanez MD Unavailable Johann Hanson CNP Primary Care Provider [phone] Khang Kilgore MD Unavailable [phone] Shreyas Wilson MD Unavailable Doretha Glynn MD Unavailable [phone] Radha Pereira RN Unavailable [phone] Encounter Details Date Type Department Care Team (Late st Contact Info) Description 08/27/2025 Orders Only [facility] [address] [place] [address] Provider, MD Cesario [address] [place] [address] Social History Tobacco Use Types Packs/Day [...] st Contact Info) Description 09/01/2025 Procedure Pass [facility], [address] [address] 09/10/2025 9:00 AM EST Office Visit [facility] [address] [place] [address] Unknown, Unknown, Shreyas Limon MD [address] [place] [address] 09/21/2025 2:30 PM EST Office Visit [facility] All[facility] Critical [facility] Medicine [address] [place] [address] Lester Hicks MD [address] [place] [address] 10/07/2025 7:15 AM EST Appointment [facility] [address] [place] [address] Lester Hicks MD [address] [place] [address] 10/13/2025 9:20 AM EST Office Visit [facility] [address] [place] [address] Doretha Glynn MD [address] [place] [address] [phone] [email or web address] 10/15/2025 7:40 AM EST Appointment [facility], [address] [address] Devorah Beck PA-C [address] [place] [address] [email or web address] 12/22/2025 8:30 AM EDT Office Visit [address] [place] [address] Johann Hanson CNP [address] [place] [address], [address] [place] [address] [email or web address] 06/30/2026 8:00 AM EDT Office Visit [address] [place] [address] Johann Hanson CNP [address] [place] [address], [address] [place] [address] [email or web address] documented as of this encounter Procedures Procedure Name Priority Date/Time Associated Diagnosis Comments OUTSIDE US IMAGING REPORT ONLY Routine 08/27/2025 9:37 AM EST documented in this encounter Results * Outside US Imaging??Report Only (08/27/2025 9:37 AM EST) us Historical Provider MD MOSS US OP Final Res ult documented in this encounter Visit Diagnoses Not on filedocumented in this encounter Additional Health Concerns Assessment Noted Time PHQ-9 Depression Total Score: 4 10/29/19 24 1:54 PM EST PHQ-2 Depression Total Score: 0 06/23/20 25 12:32 PM EDT documented as of this encounter Care Teams Bait Man Relationship Specialty Start Date End Date Johann Hanson CNP [address] [place] [address], [address] [place] [address] [email or web address] PCP - General Family Medicine 02/11/21 Lester Hicks MD [address] [place] [address] [place] [address] [email or web address] Historical LMR Provider 07/28/17 Margaux Montanez MD [address] [facility], [address] [place] [address] Historical LMR Provider 07/28/17 Khang Kilgore MD [address] [facility], [address] [place] [address] Insurance Assigned Provider 01/12/24 Shreyas Wilson MD [address] [place] [address] Gastroenterology 06/17/24 Doretha Glynn MD [address] [place] [address] 3[address] [place] [address] Endocrinology 06/17/24 Radha Pereira, RN [address] [place] [address] [email or web address] PHCM Ward ClerkSecurity Clerk 06/11/25 documented as of this encounter Additional Source Comments The information contained in this document represents components of the legal health record. It is not the complete legal health record.[facility]
--- OUTSIDE RECORDS SUMMARY | 2025-09-08 18:05 | XMS_ITS | Encounter Summary ---
Author Organization [facility] Address [address] [place] [address] Phone Care Team Providers Care Development System Efficiency Manager Name Role Phone Lester Hicks MD Unavailable [phone] Margaux Montanez MD Unavailable Johann Hanson CNP Primary Care Provider [phone] Khang Kilgore MD Unavailable Luis Ignacio DO Unavailable Flo Esteban MD Unavailable [phone] Neisha Pinto RN Unavailable [email or web address] Shreyas Wilson MD Unavailable [phone] Doretha Glynn MD Unavailable [phone] Izzy Hackett Unavailable [email or web address] Radha Pereira RN Unavailable Jv Liz Unavailable Encounter Details Date Type Department Care Team (Late st Contact Info) Description 12/13/2022 Procedure Pass [facility] [address] [place], [place] [id number] Social History Tobacco Use Types Packs/Day Years [...] high school, GED, job training, learning the Congolese language, technical skills, or developing parenting skills)? [...] st Contact Info) Description 09/01/2025 Procedure Pass [facility], [facility] - [address] [address] 09/10/2025 9:00 AM EST Office Visit [facility] G[facility]enterology Clinic [address] [place] [address] Unknown, Unknown, Shreyas Limon MD [address] [place] [address] 09/21/2025 2:30 PM EST Office Visit [facility] Critical [facility] Medicine [address] [place] [address] [place] [address] Lesetr Hicks MD [address] [place] [address] 10/07/2025 7:15 AM EST Appointment [facility] [address] [place] [address] Lester Hicks MD [address] [place] [address] 10/13/2025 9:20 AM EST Office Visit [facility] [address] [place] [address] Doretha Glynn MD [address] [place] [address] [email or web address] 10/15/2025 7:40 AM EST Appointment [address] [address] Devorah Beck PA-C [address] [place] [address] [email or web address] 12/22/2025 8:30 AM EDT Office Visit [address] [place] [address] Johann Hanson, TIFFANIE [address] [facility] [place] [address] [email or web address] 06/30/2026 8:00 AM EDT Office Visit [address] [place] [address] Johann Hanson, PROCESS CONTROL BOARD OPERATOR [address] [facility] [place] [address] [email or web address] documented as of this encounter Visit Diagnoses Not on filedocumented in this encounter Additional Health Concerns Infection Onset Date Last Indicated Resolved Time COVID-19 10/07/2023 10/07/2023 10/28/2023 1:21 AM EST Assessment Noted Time PHQ-2 Depression Total Score: 0 05/15/20 1:45 PM EDT documented as of this encounter Care Teams Development System Efficiency Manager Relationship Specialty Start Date End Date Johann Hanson CNP [address] [facility] [place] [address] PCP - General Family Medicine 02/11/21 Lester Hicks MD [address] [place] [address] Historical LMR Provider 07/28/17 Margaux Montanez MD [address] [place] [address], [address] [place] [address] [email or web address] Historical LMR Provider 07/28/17 Khang Kilgore MD [address] [place] [address], [address] [place] [address] Insurance Assigned Provider 01/12/24 Luis Ignacio DO [address] [place] [address], [address] [place] [address] Cardiology 06/28/22 06/16/24 Flo Esteban MD [address] [place] [address] [email or web address] Cardiothoracic Surgery 06/28/22 06/16/24 Neisha Pinto RN [address] [place] [address] [email or web address] PHCM Painter Plate 02/26/23 06/10/25 Shreyas Wilson MD [address] [place] [address] Gastroenterology 06/17/24 Doretha Glynn MD [address] [place] [address] Endocrinology 06/17/24 Izzy Hackett 10 [place] [address] [email or web address] PHCM Community Bat Carrier 09/11/24 09/11/24 Radha Pereira RN [address] [place] [address] PHCM Painter PlateBilliard Table Assembler 06/11/25 Jv Liz [address] [place] [address] Wood Engraver 08/12/25 08/12/25 documented as of this encounter Additional Source Comments The information contained in this document represents components of the legal health record. It is not the complete legal health record.[facility]
--- OUTSIDE RECORDS SUMMARY | 2025-09-08 18:05 | XMS_ITS | Encounter Summary ---
Author Organization [facility] Address [address] [place] [address] Phone Care Team Providers Care Pediatric Oncologist Name Role Phone Lester Hicks MD Unavailable [phone] Margaux Montanez MD Unavailable Johann Hanson CNP Primary Care Provider [phone] Khang Kilgore MD Unavailable Luis Ignacio DO Unavailable Flo Esteban MD Unavailable [phone] Neisha Pinto RN Unavailable [email or web address] Shreyas Wilson MD Unavailable Doretha Glynn MD Unavailable [phone] Izzy Hackett Unavailable [email or web address] Radha Pereira RN Unavailable Jv Liz Unavailable Encounter Details Date Type Department Care Team (Late st Contact Info) Description 12/11/2022 Procedure Pass [facility] 30 [place], [place] [id number] Social History Tobacco Use Types Packs/Day Years [...] high school, GED, job training, learning the Indonesian language, technical skills, or developing parenting skills)? [...] st Contact Info) Description 09/01/2025 Procedure Pass [facility], [facility] - [address] [address] 09/10/2025 9:00 AM EST Office Visit [facility] Gastroenterology Clinic [address] [place] [address] Unknown, Unknown, Shreyas Limon MD [address] [place] [address] 09/21/2025 2:30 PM EST Office Visit [facility] All[facility] Critical [facility] Medicine [address] [place] [address] [place] [address] Lester Hicks MD [address] [place] [address] 10/07/2025 7:15 AM EST Appointment [facility] [address] [place] [address] Lester Hicks MD [address] [place] [address] 10/13/2025 9:20 AM EST Office Visit [facility] [address] [place] [address] Doretha Glynn MD [address] [place] [address] [email or web address] 10/15/2025 7:40 AM EST Appointment [address] [address] Devorah Beck PA-C [address] [place] [address] [email or web address] 12/22/2025 8:30 AM EDT Office Visit [address] [place] [address] Johann Hanson, TIFFANIE [address] [facility], [address] [place] [address] [email or web address] 06/30/2026 8:00 AM EDT Office Visit [address] [place] [address] Johann Hanson, INFORMATION SPECIALIST [address] [facility], [address] [place] [address] [email or web address] documented as of this encounter Visit Diagnoses Not on filedocumented in this encounter Additional Health Concerns Infection Onset Date Last Indicated Resolved Time COVID-19 10/07/2023 10/07/2023 10/28/2023 1:21 AM EST Assessment Noted Time PHQ-2 Depression Total Score: 0 05/15/20 1:45 PM EDT documented as of this encounter Care Teams Pediatric Oncologist Relationship Specialty Start Date End Date Johann Hanson CNP [address] [facility], [address] [place] [address] PCP - General Family Medicine 02/11/21 Lester Hicks MD [address] [place] [address] Historical LMR Provider 07/28/17 Margaux Montanez MD [address] [place] [address], [address] [place] [address] [email or web address] Historical LMR Provider 07/28/17 Khang Kilgore MD [address] [place] [address], [address] [place] [address] Insurance Assigned Provider 01/12/24 Luis Ignacio DO [address] [place] [address], [address] [place] [address] Cardiology 06/28/22 06/16/24 Flo Esteban MD [address] [place] [address] [email or web address] .[email or web address] Cardiothoracic Surgery 06/28/22 06/16/24 Neisha Pinto RN [address] [place] [address] [email or web address] PHCM Acrobatic Dancer 02/26/23 06/10/25 Shreyas Wilson MD [address] [place] [address] Gastroenterology 06/17/24 Doretha Glynn MD [address] [place] [address] Endocrinology 06/17/24 Izzy Hackett 10 [place] [address] [email or web address] PHCM Community Dough Scaler And Mixer 09/11/24 09/11/24 Radha Pereira RN [address] [place] [address] PHCM Acrobatic DancerSheet Manufacturing Supervisor 06/11/25 Jv Liz [address] [place] [address] Adult Parole Officer 08/12/25 08/12/25 documented as of this encounter Additional Source Comments The information contained in this document represents components of the legal health record. It is not the complete legal health record.[facility]
--- OUTSIDE RECORDS SUMMARY | 2025-09-08 18:05 | XMS_ITS | Encounter Summary ---
Author Organization [facility] Address [address] [place] [address] [place] [address] Phone Care Team Providers Care Do All Operator Name Role Phone Lester Hicks MD Unavailable [phone] Margaux Montanez MD Unavailable Johann Hanson CNP Primary Care Provider [phone] Khang Kilgore MD Unavailable Neisha Pinto RN Unavailable [email or web address] Shreyas Wilson MD Unavailable [phone] Doretha Glynn MD Unavailable [phone] Radha Pereira RN Unavailable [phone] Jv Liz Unavailable Encounter Details Date Type Department Care Team (Late st Contact Info) Description 01/13/2025 Procedure Pass [facility] L2 PRU [address] [place] [address] Social History Tobacco Use Types Packs/Day Years [...] st Contact Info) Description 09/01/2025 Procedure Pass [address] [address] 09/10/2025 9:00 AM EST Office Visit [facility] G[facility] [address] [place] [address] Unknown, Unknown, Shreyas Limon MD [address] [place] [address] 09/21/2025 2:30 PM EST Office Visit [facility], Allergy [facility] Critical Care Medicine [address] [place] [address] Lester Hicks MD [address] [place] [address] 10/07/2025 7:15 AM EST Appointment [facility] [address] [place] [address] Lester Hicks MD [address] [place] [address] 10/13/2025 9:20 AM EST Office Visit [facility] [address] [place] [address] Doretha Glynn MD [address] [place] [address] [email or web address] 10/15/2025 7:40 AM EST Appointment [address] [address] Devorah Beck PA-C [address] [place] [address] [email or web address] 12/22/2025 8:30 AM EDT Office Visit [address] [place] [address] Johann Hanson CNP [address] [place] [address], [address] [place] [address] [email or web address] 06/30/2026 8:00 AM EDT Office Visit [address] [place] [address] Johann Hanson CNP [address] [place] [address], [address] [place] [address] [email or web address] documented as of this encounter Visit Diagnoses Not on filedocumented in this encounter Additional Health Concerns Assessment Noted Time PHQ-9 Depression Total Score: 4 10/29/19 24 1:54 PM EST PHQ-2 Depression Total Score: 0 06/10/20 24 9:22 AM EDT documented as of this encounter Care Teams Do All Operator Relationship Specialty Start Date End Date Johann Hanson CNP [address] [place] [address], [address] [place] [address] [email or web address] PCP - General Family Medicine 02/11/21 Lester Hicks MD [address] [place] [address] 2nd [place] [address] [email or web address] Historical LMR Provider 07/28/17 Margaux Montanez MD [address] [place] [address], [address] [place] [address] [email or web address] Historical LMR Provider 07/28/17 Khang Kilgore MD [address] [place] [address], [address] [place] [address] [email or web address] Insurance Assigned Provider 01/12/24 Neisha Pinto, RANDI [address] [facility], [address] [place] [address] [email or web address] PHCM Debate Director 02/26/23 06/10/25 Shreyas Wilson MD [address] [place] [address] [email or web address] Gastroenterology 06/17/24 Doretha Glynn MD [address] [place] [address] [email or web address] Endocrinology 06/17/24 Radha Pereira RN [address] [place] [address] [email or web address] PHC Debate DirectorFamily Day Care Provider 06/11/25 Jv Liz [address] [place] [address] [email or web address] All Around Patternmaker 08/12/25 08/12/25 documented as of this encounter Additional Source Comments The information contained in this document represents components of the legal health record. It is not the complete legal health record.[facility]
--- OUTSIDE RECORDS SUMMARY | 2025-09-08 18:05 | XMS_ITS | Encounter Summary ---
Author Organization [facility] Address [address] [facility] [address] [place] [address] Phone Care Team Providers Care Cnc Manufacturing Engineer Name Role Phone Lester Hicks MD Unavailable [phone] Margaux Montanez MD Unavailable Johann Hanson BEET FLUMER Primary Care Provider [phone] Khang Kilgore MD Unavailable [phone] Luis Ignacio DO Unavailable Flo Esteban MD Unavailable [phone] Neisha Pinto RN Unavailable [email or web address] Shreyas Wilson MD Unavailable Doretha Glynn MD Unavailable [phone] Izzy Hackett Unavailable [email or web address] Radha Pereira RN Unavailable Jv Liz Unavailable Encounter Details Date Type Department Care Team (Latest Contact Info) Description 12/22/2022 Transcribe Orders Virtual Department [address] [place] [address] Johann Hanson, BEET FLUMER [address] [facility], [address] [place], [place] [id number] [email or web address] Breast screening (Primary Dx) Social History [...] st Contact Info) Description 09/01/2025 Procedure Pass [facility], [facility] [address] [place] [address] 09/10/2025 9:00 AM EST Office Visit [facility] G[facility]ology Clinic [address] [place] [address] Unknown, Unknown, Shreyas Limon MD [address] [place] [address] 09/21/2025 2:30 PM EST Office Visit [facility] All[facility] Medicine [address] [place] [address] [place] [address] Lester Hicks MD [address] [place] [address] 10/07/2025 7:15 AM EST Appointment [facility] [address] [place] [address] Lester Hicks MD [address] [place] [address] 10/13/2025 9:20 AM EST Office Visit [facility] [address] [place] [address] Doretha Glynn MD [address] [place] [address] [email or web address] 10/15/2025 7:40 AM EST Appointment [facility], [facility] - [address] [address] Devorah Beck PA-C [address] [place] [address] [email or web address] 12/22/2025 8:30 AM EDT Office Visit [address] [place] [address] Johann Hanson, BEET FLUMER [address] [facility], [address] [place] [address] [email or web address] 06/30/2026 8:00 AM EDT Office Visit [facility] [address] [place] [address] Johann Hanson, TIFFANIE [address] [facility], [address] [place] [address] [email or web address] documented as of this encounter Results * [...] as of this encounter Care Teams Cnc Manufacturing Engineer Relationship Specialty Start Date End Date Johann Hanson CNP [address] [place] [address], [address] [place] [address] PCP - General Family Medicine 02/11/21 Lester Hicks MD [address] [place] [address] Historical LMR Provider 07/28/17 Margaux Montanez MD [address] [place] [address], [address] [place] [address] [email or web address] Historical LMR Provider 07/28/17 Khang Kilgore MD [address] [place] [address], [address] [place] [address] Insurance Assigned Provider 01/12/24 Luis Ignacio DO [address] [place] [address], [address] [place] [address] Cardiology 06/28/22 06/16/24 Flo Esteban MD [address] [place] [address] [email or web address] Cardiothoracic Surgery 06/28/22 06/16/24 Neisha Pinto RN [address] [place] [address] [email or web address] PHCM Membership Secretary 02/26/23 06/10/25 Shreyas Wilson MD [address] [place] [address] [email or web address] Gastroenterology 06/17/24 Doretha Glynn MD [address] [place] [address] 3[address] [place] [address] Endocrinology 06/17/24 Izzy Hackett [address] [place] [address] [email or web address] PHC Community Hse Specialist 09/11/24 09/11/24 Radha Pereira, RANDI [address] [place] [address] [email or web address] PHCM Membership SecretarySatellite Communications Engineer 06/11/25 Jv Liz [address] [place] [address] [email or web address] Terminal Press Operator 08/12/25 08/12/25 documented as of this encounter Additional Source Comments The information contained in this document represents components of the legal health record. It is not the complete legal health record.[facility]
--- OUTSIDE RECORDS SUMMARY | 2025-09-08 18:05 | XMS_ITS | Encounter Summary ---
Author Organization [facility] Address [address] [place] [address] Phone Care Team Providers Care Hr Analyst Name Role Phone Lester Hicks MD Unavailable [phone] Margaux Montanez MD Unavailable Johann Hanson CNP Primary Care Provider [phone] Khang Kilgore MD Unavailable [phone] Luis Ignacio DO Unavailable Flo Esteban MD Unavailable [phone] Neisha Pinto RN Unavailable [email or web address] Shreyas Wilson MD Unavailable Doretha Glynn MD Unavailable [phone] Izzy Hackett Unavailable [email or web address] Radha Pereira RN Unavailable [phone] Jv Liz Unavailable Encounter Details Date Type Department Care Team (Late st Contact Info) Description 12/22/2022 Procedure Pass [facility], [address] [id number] Social History Tobacco Use Types Packs/Day Years [...] st Contact Info) Description 09/01/2025 Procedure Pass [facility], [facility] [address] [place] [address] 09/10/2025 9:00 AM EST Office Visit [facility] [address] [place] [address] Unknown, Unknown, Shreyas Limon MD [address] [place] [address] 09/21/2025 2:30 PM EST Office Visit [facility] All[facility] Critical [facility] Medicine [address] [place] [address] [place] [address] Lester Hicks MD [address] [place] [address] 10/07/2025 7:15 AM EST Appointment [facility] [address] [place] [address] Lester Hicks MD [address] [place] [address] 10/13/2025 9:20 AM EST Office Visit [facility]ology [address] [place] [address] Doretha Glynn MD [address] [place] [address] [email or web address] 10/15/2025 7:40 AM EST Appointment [address] [address] Devorah Beck PA-C [address] [place] [address] [email or web address] 12/22/2025 8:30 AM EDT Office Visit [address] [place] [address] Johann Hanson, TIFFANIE 22 [facility], [address] [place] [address] [email or web address] 06/30/2026 8:00 AM EDT Office Visit [address] [place] [address] Johann Hanson CNP 22 [facility], [address] [place] [address] [email or web address] documented as of this encounter Visit Diagnoses Not on filedocumented in this encounter Additional Health Concerns Infection Onset Date Last Indicated Resolved Time COVID-19 10/07/2023 10/07/2023 10/28/2023 1:21 AM EST Assessment Noted Time PHQ-2 Depression Total Score: 0 01/01/20 23 1:26 PM EDT documented as of this encounter Care Teams Hr Analyst Relationship Specialty Start Date End Date CarmenartismarleenJohann CNP [address] [place] [address], [address] [place] [address] PCP - General Family Medicine 02/11/21 Lester Hicks MD [address] [place] [address] Historical LMR Provider 07/28/17 Margaux Montanez MD [address] [place] [address], [address] [place] [address] [email or web address] Historical LMR Provider 07/28/17 Khang Kilgore MD [address] [place] [address], [address] [place] [address] Insurance Assigned Provider 01/12/24 Luis Ignacio DO [address] [place] [address], [address] [place] [address] Cardiology 06/28/22 06/16/24 Flo Esteban MD [address] [place], [place] [address] [place] [address] [email or web address] Cardiothoracic Surgery 06/28/22 06/16/24 Neisha Pinto RN [address] [place] [address] [email or web address] PHCM Rouge Mixer 02/26/23 06/10/25 Shreyas Wilson MD [address] [place] [address] Gastroenterology 06/17/24 Doretha Glynn MD [address] [place] [address] Endocrinology 06/17/24 Izzy Hackett [address] [place] [address] [email or web address] PHCM Community Steamblaster 09/11/24 09/11/24 Radha Pereira RN [address] [place] [address] PHCM Rouge MixerRefrigerator Assembler 06/11/[address] [place] [address] Dining Car Steward 08/12/25 08/12/25 documented as of this encounter Additional Source Comments The information contained in this document represents components of the legal health record. It is not the complete legal health record.[facility]
--- OUTSIDE RECORDS SUMMARY | 2025-09-08 18:05 | XMS_ITS | Encounter Summary ---
Author Organization [facility] Address [address] [place] [address] Phone Care Team Providers Care Automotive Parts Interpreter Name Role Phone Lester Hicks MD Unavailable [phone] Margaux Montanez MD Unavailable Johann Hanson CNP Primary Care Provider [phone] Khang Kilgore MD Unavailable [phone] Luis Ignacio DO Unavailable [phone] Flo Esteban MD Unavailable [phone] Neisha Pinto RN Unavailable [email or web address] Shreyas Wilson MD Unavailable [phone] Doretha Glynn MD Unavailable [phone] Izzy Hackett Unavailable [email or web address] Radha Pereira RN Unavailable Jv Liz Unavailable Encounter Details Date Type Department Care Team (Late st Contact Info) Description 12/08/2022 Procedure Pass [facility] [address] [place], [place] [id number] Social History Tobacco Use Types Packs/Day Years [...] high school, GED, job training, learning the [place]an language, technical skills, or developing parenting skills)? [...] st Contact Info) Description 09/01/2025 Procedure Pass [facility], [facility] - [address] [address] 09/10/2025 9:00 AM EST Office Visit [facility] G[facility]ology Clinic [address] [place] [address] Unknown, Unknown, Shreyas Limon MD [address] [place] [address] 09/21/2025 2:30 PM EST Office Visit [facility] Allergy [facility] Critical [facility] Medicine [address] [place] [address] [place] [address] Lester Hicks MD [address] [place] [address] 10/07/2025 7:15 AM EST Appointment [facility] [address] [place] [address] Lester Hicks MD [address] [place] [address] 10/13/2025 9:20 AM EST Office Visit [facility] [address] [place] [address] Doretha Glynn MD [address] [place] [address] [email or web address] 10/15/2025 7:40 AM EST Appointment [address] [address] Devorah Beck PA-C [address] [place] [address] [email or web address] 12/22/2025 8:30 AM EDT Office Visit [address] [place] [address] Johann Hanson, TIFFANIE 22 [facility], [address] [place] [address] [email or web address] 06/30/2026 8:00 AM EDT Office Visit [address] [place] [address] Johann Hanson, CHAIN SALES REPRESENTATIVE 22 [facility], [address] [place] [address] [email or web address] documented as of this encounter Visit Diagnoses Not on filedocumented in this encounter Additional Health Concerns Infection Onset Date Last Indicated Resolved Time COVID-19 10/07/2023 10/07/2023 10/28/2023 1:21 AM EST Assessment Noted Time PHQ-2 Depression Total Score: 0 05/15/20 1:45 PM EDT documented as of this encounter Care Teams Automotive Parts Interpreter Relationship Specialty Start Date End Date Johann Hanson CNP 22 [facility], [address] [place] [address] PCP - General Family Medicine 02/11/21 Lester Hicks MD [address] [place] [address] Historical LMR Provider 07/28/17 Margaux Montanez MD [address] [place] [address], [address] [place] [address] [email or web address] Historical LMR Provider 07/28/17 Khang Kilgore MD [address] [place] [address], [address] [place] [address] Insurance Assigned Provider 01/12/24 Luis Ignacio DO [address] [place] [address], [address] [place] [address] Cardiology 06/28/22 06/16/24 Flo Esteban MD [address] [place] [address] [email or web address] Cardiothoracic Surgery 06/28/22 06/16/24 Niesha Pinto RN [address] [place] [address] [email or web address] PHCM Dermatology Physician 02/26/23 06/10/25 Shreyas Wilson MD [address] [place] [address] Gastroenterology 06/17/24 Doretha Glynn MD [address] [place] [address] Endocrinology 06/17/24 Izzy Hackett 10 [place] [address] [email or web address] PHCM Community Grinder Gear 09/11/24 09/11/24 Radha Pereira RN [address] [place] [address] PHCM Dermatology PhysicianMailroom Associate 06/11/25 Jv Liz [address] [place] [address] Grinding Wheel Facer 08/12/25 08/12/25 documented as of this encounter Additional Source Comments The information contained in this document represents components of the legal health record. It is not the complete legal health record.[facility]
--- OUTSIDE RECORDS SUMMARY | 2025-09-08 18:05 | XMS_ITS | Encounter Summary ---
Author Organization [facility] Address [address] [facility] [address] [place] [address] Phone Care Team Providers Care Pipelines Manager Name Role Phone Lester Hicks MD Unavailable [phone] Margaux Montanez MD Unavailable Johann Hanson REVERSER Primary Care Provider [phone] Khang Kilgore MD Unavailable Shreyas Wilson MD Unavailable Doretha Glynn MD Unavailable [phone] Radha Pereira RN Unavailable Encounter Details Date Type Department Care Team (Late st Contact Info) Description 08/31/2025 Orders Only [facility] [address] [place] [address] [place], [place] [id number] Johann Hanson, REVERSER 22 [facility], [address] [place], [place] 179[address]60 [email or web address] Hypokalemia (Primary Dx) Social History Tobacco Use Types [...] high school, GED, job training, learning the Colombian language, technical skills, or developing parenting skills)? [...] st Contact Info) Description 09/01/2025 Procedure Pass [facility], Mri - [address] [address] 09/10/2025 9:00 AM EST Office Visit [facility] [address] [place] [address] Unknown, Unknown, Shreyas Limon MD [address] [place] [address] 09/21/2025 2:30 PM EST Office Visit [facility] All[facility] Critical [facility] [address] [place] [address] Lester Hicks MD [address] [place] [address] 10/07/2025 7:15 AM EST Appointment [facility] [address] [place] [address] Lester Hicks MD [address] [place] [address] 10/13/2025 9:20 AM EST Office Visit [facility] [address] [place] [address] Doretha Glynn MD [address] [place] [address] [email or web address] 10/15/2025 7:40 AM EST Appointment [facility], [facility] - [facility] [address] [place] [address] Devorah Beck PA-C 10 [facility] 2 [place] [address] [email or web address] 12/22/2025 8:30 AM EDT Office Visit [address] [place] [address] Johann Hanson CNP [address] [place] [address], [address] [place] [address] [email or web address] 06/30/2026 8:00 AM EDT Office Visit [address] [place] [address] Johann Hanson CNP [address] [place] [address], [address] [place] [address] [email or web address] Scheduled Orders Name Type Priority Associated Diagnoses Orde r Schedule Basic Metabolic Panel (BMP) Lab Routine Hypokalemia Expected: 08/31/2025, Expires: 12/01/2025 documented as of this encounter Visit Diagnoses Diagnosis Hypokalemia- Primary Hypopotassemia documented in this encounter Additional Health Concerns Assessment Noted Time PHQ-9 Depression Total Score: 4 10/29/19 24 1:54 PM EST PHQ-2 Depression Total Score: 0 06/23/20 12:32 PM EDT documented as of this encounter Care Teams Pipelines Manager Relationship Specialty Start Date End Date Johann Hanson CNP [address] [place] [address], [address] [place] [address] [email or web address] PCP - General Family Medicine 02/11/21 Lester Hicks MD [address] [place] [address] 2nd floor [place], [place] [id number] [email or web address] Historical LMR Provider 07/28/17 Margaux Montanez MD [address] [facility], [address] [place] [address] Historical LMR Provider 07/28/17 Khang Kilgore MD [address] [place] [address], [address] [place] [address] Insurance Assigned Provider 01/12/24 Shreyas Wilson MD [address] [place] [address] Gastroenterology 06/17/24 Doretha Glynn MD [address] [place] [address] Endocrinology 06/17/24 Radha Pereira, RN [address] [place] [address] [email or web address] PHCM Bilingual Speech Language PathologistMelt Superintendant 06/11/25 documented as of this encounter Additional Source Comments The information contained in this document represents components of the legal health record. It is not the complete legal health record.[facility]
--- OUTSIDE RECORDS SUMMARY | 2025-09-08 18:05 | XMS_ITS | Clinical Summary ---
Author Organization [facility] Address [address] [place] [address] Care Team Providers Care Corporate Security Officer Name Role Phone Unavailable Primary Care Provider [...]
--- OUTSIDE RECORDS SUMMARY | 2025-09-08 18:05 | XMS_ITS | Encounter Summary ---
Author Organization [facility] Address [address] [place] [address] [place] [address] Phone Care Team Providers Care Surveyor Chain Helper Name Role Phone Lester Hicks MD Unavailable [phone] Margaux Montanez MD Unavailable [phone] Johann Hanosn CNP Primary Care Provider [phone] Khang Kilgore MD Unavailable Luis Ignacio DO Unavailable [phone] Flo Esteban MD Unavailable [phone] Dilan Rowland MD Unavailable [phone] Corby Prado MD Unavailable [phone] Neisha Pinto RN Unavailable [email or web address] Shreyas Wilson MD Unavailable [phone] Doretha Glynn MD Unavailable [phone] Izzy Hackett Unavailable [email or web address] Radha Pereira RN Unavailable Jv Liz Unavailable Encounter Details Date Type Department Care Team (Late st Contact Info) Description 02/28/2022 Procedure Pass [facility], [facility] - [address] [address] Social History Tobacco Use Types Packs/Day Years [...] high school, GED, job training, learning the Mauritanian language, technical skills, or developing parenting skills)? [...] st Contact Info) Description 09/01/2025 Procedure Pass [facility], [facility]ri - [address] [address] 09/10/2025 9:00 AM EST Office Visit [facility] Gastroenterology Clinic [address] [place] [address] UnknownOdessa MD Tassoni, Joseph P, MD [address] [place] [address] 09/21/2025 2:30 PM EST Office Visit [facility] All[facility] Critical [facility] Medicine [address] [place] [address] [place] [address] Lester Hicks MD [address] [place] [address] 10/07/2025 7:15 AM EST Appointment [facility] [address] [place] [address] Lester Hicks MD [address] [place] [address] 10/13/2025 9:20 AM EST Office Visit [facility] [address] [place] [address] [place] [address] Doretha Glynn MD [address] [place] [address] [email or web address] 10/15/2025 7:40 AM EST Appointment [facility] - [address] [address] Devorah Beck PA-C [address] [place] [address] [email or web address] 12/22/2025 8:30 AM EDT Office Visit [address] [place] [address] Johann Hanson, NURSE EXTERN [address] [facility], [address] [place] [address] [email or web address] 06/30/2026 8:00 AM EDT Office Visit [facility] [address] [place] [address] Johann Hanson CNP [address] [facility], [address] [place] [address] [email or web address] documented as of this encounter [...] documented as of this encounter Care Teams Surveyor Chain Helper Relationship Specialty Start Date End Date Johann Hanson CNP [address] [place] [address], [address] [place] [address] PCP - General Family Medicine 02/11/21 Lester Hicks MD [address] [place] [address] [email or web address] Historical LMR Provider 07/28/17 Margaux Montanez MD [address] [place] [address], [address] [place] [address] [email or web address] Historical LMR Provider 07/28/17 Khang Kilgore MD [address] [place] [address], [address] [place] [address] [email or web address] Insurance Assigned Provider 01/12/24 Luis Ignacio DO [address] [place] [address], [address] [place] [address] Cardiology 06/28/22 06/16/24 Flo Esteban MD [address] [place] [address] [email or web address] Cardiothoracic Surgery 06/28/22 06/16/24 Dilan Rowland MD [address] [place] [address], [address] [place] [address] [email or web address] Insurance Assigned Provider 07/15/22 08/13/22 Corby Prado MD [address] [place] [address], [address] [place] [address] [email or web address] Insurance Assigned Provider 08/13/22 09/16/22 Neisha Pinto RN [address] [place] [address], [address] [place] [address] [email or web address] [email or web address] 02/26/23 06/10/25 Shreyas Wilson MD [address] [place] [address] Gastroenterology 06/17/24 Doretha Glynn MD [address] [place] [address] 3rd [place] [address] Endocrinology 06/17/24 Izzy Hackett 10 [place] [address] [email or web address] PHCM Community Mobile Application Development Lead 09/11/24 09/11/24 Radha Pereira, RANDI [address] [place] [address] PHCM Home Care ConsultantVp Packaging 06/11/25 Jv Liz [address] [place] [address] [email or web address] Investigation Officer 08/12/25 08/12/25 documented as of this encounter Additional Source Comments The information contained in this document represents components of the legal health record. It is not the complete legal health record.[facility]
--- OUTSIDE RECORDS SUMMARY | 2025-09-08 18:06 | XMS_ITS | Encounter Summary ---
Author Organization [facility] Address [address] [place] [address] Phone Care Team Providers Care Ward Assistant Name Role Phone Lester Hicks MD Unavailable [phone] Margaux Montanez MD Unavailable Johann Hanson CNP Primary Care Provider [phone] Khang Kilgore MD Unavailable Neisha Pinto RN Unavailable [email or web address] Shreyas Wilson MD Unavailable [phone] Doretha Glynn MD Unavailable [phone] Izzy Hackett Unavailable [email or web address] Radha Pereira RN Unavailable Jv Liz Unavailable Encounter Details Date Type Department Care Team (Late st Contact Info) Description 06/17/2024 Procedure Pass [address] [address] Social History Tobacco Use Types Packs/Day Years [...] st Contact Info) Description 09/01/2025 Procedure Pass [facility], [facility] - [address] [address] 09/10/2025 9:00 AM EST Office Visit [facility] [address] [place] [address] Unknown, Unknown, Shreyas Limon MD [address] [place] [address] 09/21/2025 2:30 PM EST Office Visit [facility] All[facility] Critical [facility] Medicine [address] [place] [address] Lester Hicks MD [address] [place] [address] 10/07/2025 7:15 AM EST Appointment [facility] [address] [place] [address] Lester Hicks MD [address] [place] [address] 10/13/2025 9:20 AM EST Office Visit [facility] [address] [place] [address] Doretha Glynn MD [address] [place] [address] [email or web address] 10/15/2025 7:40 AM EST Appointment [facility], [facility] - [facility] [address] [place] [address] Devorah Beck PA-C [address] [place] [address] 2 [place] [address] [email or web address] 12/22/2025 8:30 AM EDT Office Visit [address] [place] [address] Johann Hanson CNP [address] [place] [address], [address] [place] [address] [email or web address] 06/30/2026 8:00 AM EDT Office Visit [address] [place] [address] Johann Hanson CNP [address] [place] [address], [address] [place] [address] [email or web address] documented as of this encounter Visit Diagnoses Not on filedocumented in this encounter Additional Health Concerns Assessment Noted Time PHQ-9 Depression Total Score: 4 10/29/19 24 1:54 PM EST PHQ-2 Depression Total Score: 0 06/23/20 25 12:32 PM EDT documented as of this encounter Care Teams Ward Assistant Relationship Specialty Start Date End Date Johann Hanson CNP [address] [place] [address], [address] [place] [address] PCP - General Family Medicine 02/11/21 Lester Hicks MD [address] [place] [address] Historical LMR Provider 07/28/17 Margaux Montanez MD [address] [place] [address], [address] [place] [address] [email or web address] Historical LMR Provider 07/28/17 Khang Kilgore MD [address] [place] [address], [address] [place] [address] Insurance Assigned Provider 01/12/24 Neisha Pinto RN [address] [place] [address], [address] [place] [address] [email or web address] PHCM Consultant Education 02/26/23 06/10/25 Shreyas Wilson MD [address] [place] [address] Gastroenterology 06/17/24 Doretha Glynn MD [address] [place] [address] 3rd [place] [address] Endocrinology 06/17/24 Izzy Hackett [address] [place] [address] [email or web address] PHC Community Brick Carrier 09/11/24 09/11/24 Radha Pereira, RN [address] [place] [address] PHC Consultant EducationArborist Climber 06/11/25 Jv Liz [address] [place] [address] Electric Furnace Operator 08/12/25 08/12/25 documented as of this encounter Additional Source Comments The information contained in this document represents components of the legal health record. It is not the complete legal health record.[facility]
--- OUTSIDE RECORDS SUMMARY | 2025-09-08 18:06 | XMS_ITS | Encounter Summary ---
Author Organization [facility] Address [address] [place] [address] [place] [address] Phone Care Team Providers Care Sales Support Consultant Name Role Phone Lester Hicks MD Unavailable [phone] Margaux Montanez MD Unavailable [phone] Johann Hanson CNP Primary Care Provider [phone] Khang Kilgore MD Unavailable Luis Ignacio DO Unavailable Flo Esteban MD Unavailable [phone] Dilan Rowland MD Unavailable [phone] Corby Prado MD Unavailable [phone] Neisha Pinto RN Unavailable [email or web address] Shreyas Wilson MD Unavailable Doretha Glynn MD Unavailable [phone] Izzy Hackett Unavailable [email or web address] Radha Pereira RN Unavailable [phone] Jv Liz Unavailable Encounter Details Date Type Department Care Team (Late st Contact Info) Description 02/10/2022 Procedure Pass [facility] [address] [place] [address] Social History Tobacco Use Types Packs/Day Years [...] st Contact Info) Description 09/01/2025 Procedure Pass [facility], [facility] [address] [place] [address] 09/10/2025 9:00 AM EST Office Visit [facility] [address] [place] [address] Unknown, Unknown, Shreyas Limon MD [address] [place] [address] 09/21/2025 2:30 PM EST Office Visit [facility] [address] [place] [address] [place] [address] Lester Hicks MD [address] [place] [address] 10/07/2025 7:15 AM EST Appointment [facility] [address] [place] [address] Lester Hicks MD [address] [place] [address] 10/13/2025 9:20 AM EST Office Visit [facility] [address] [place] [address] [place] [address] Doretha Glynn MD [address] [place] [address] [email or web address] 10/15/2025 7:40 AM EST Appointment [facility] - [address] [address] Devorah Beck PA-C [address] [place] [address] [email or web address] 12/22/2025 8:30 AM EDT Office Visit [address] [place] [address] Johann Hanson, QUALITY ASSURANCE CALIBRATOR [address] [facility], [address] [place] [address] [email or web address] 06/30/2026 8:00 AM EDT Office Visit [facility] Medicine [address] [place] [address] Johann Hanson CNP [address] [facility], [address] [place] [address] [email or web address] documented as of this encounter [...] as of this encounter Care Teams Sales Support Consultant Relationship Specialty Start Date End Date Johann Hanson CNP [address] [facility], [address] [place] [address] [email or web address] PCP - General Family Medicine 02/11/21 Lester Hicks MD [address] [place] [address] [email or web address] Historical LMR Provider 07/28/17 Margaux Montanez MD [address] [place] [address], [address] [place] [address] [email or web address] Historical LMR Provider 07/28/17 Khang Kilgore MD [address] [place] [address], [address] [place] [address] [email or web address] Insurance Assigned Provider 01/12/24 Luis Ignacio DO [address] [place] [address], [address] [place] [address] Cardiology 06/28/22 06/16/24 Flo Esteban MD [address] [place] [address] [email or web address] Cardiothoracic Surgery 06/28/22 06/16/24 Dilan Rowland MD [address] [place] [address], [address] [place] [address] Insurance Assigned Provider 07/15/22 08/13/22 Corby Prado MD [address] [place] [address], [address] [place] [address] Insurance Assigned Provider 08/13/22 09/16/22 Neisha Pinto RN [address] [place] [address], [address] [place] [address] [email or web address] Budget And Policy Analyst 02/26/23 06/10/25 Shreyas Wilson MD [address] [place] [address] Gastroenterology 06/17/24 Doretha Glynn MD [address] [place] [address] 3rd [place] [address] Endocrinology 06/17/24 Izzy Hackett [address] [place] [address] [email or web address] PHCM Community Fluid Pump Operator 09/11/24 09/11/24 Radha Pereira, RN [address] [place] [address] PHCM Budget And Policy AnalystPriming Powder Premix Blender 06/11/25 Jv Liz [address] [place] [address] Electronic Heat Seal Operator 08/12/25 08/12/25 documented as of this encounter Additional Source Comments The information contained in this document represents components of the legal health record. It is not the complete legal health record.[facility]
--- OUTSIDE RECORDS SUMMARY | 2025-09-08 18:06 | XMS_ITS | Encounter Summary ---
Author Organization [facility] Address [address] [place] [address] [place] [address] Phone Care Team Providers Care Bell Person Name Role Phone Lester Hicks MD Unavailable [phone] Margaux Montanez MD Unavailable [phone] Johann Hanson CNP Primary Care Provider [phone] Khang Kilgore MD Unavailable Luis Ignacio DO Unavailable Flo Esteban MD Unavailable [phone] Neisha Pinto RN Unavailable [email or web address] Shreyas Wilson MD Unavailable [phone] Doretha Glynn MD Unavailable [phone] Izzy Hackett Unavailable [email or web address] Radha Pereira RN Unavailable Jv Liz Unavailable Encounter Details Date Type Department Care Team (Late st Contact Info) Description 10/12/2022 Procedure Pass [facility] PERIOPERATIVE DEPT [address] [place] [id number] Social History Tobacco Use Types Packs/Day Years [...] high school, GED, job training, learning the Czech language, technical skills, or developing parenting skills)? [...] st Contact Info) Description 09/01/2025 Procedure Pass [facility], [facility] - [address] [address] 09/10/2025 9:00 AM EST Office Visit [facility] Gastroenterology Clinic [address] [place] [address] Unknown, Unknown, Shreyas Limon MD [address] [place] [address] 09/21/2025 2:30 PM EST Office Visit [facility] Allergy [facility] Critical [facility] Medicine [address] [place] [address] [place] [address] Lester Hicks MD [address] [place] [address] 10/07/2025 7:15 AM EST Appointment [facility] [address] [place] [address] Lester Hicks MD [address] [place] [address] 10/13/2025 9:20 AM EST Office Visit [facility] [address] [place] [address] Doretha Glynn MD [address] [place] [address] [email or web address] 10/15/2025 7:40 AM EST Appointment [address] [address] Devorah Beck PA-C [address] [place] [address] [email or web address] 12/22/2025 8:30 AM EDT Office Visit [address] [place] [address] Johann Hanson, TIFFANIE [address] [facility], [address] [place] [address] [email or web address] 06/30/2026 8:00 AM EDT Office Visit [address] [place] [address] Johann Hanson CNP [address] [facility], [address] [place] [address] [email or web address] documented as of this encounter [...] documented as of this encounter Care Teams Bell Person Relationship Specialty Start Date End Date Johann Hanson CNP [address] [facility], [address] [place] [address] [email or web address] PCP - General Family Medicine 02/11/21 Lester Hicks MD [address] [place] [address] [email or web address] Historical LMR Provider 07/28/17 Margaux Montanez MD [address] [place] [address], [address] [place] [address] [email or web address] Historical LMR Provider 07/28/17 Khang Kilgore MD [address] [place] [address], [address] [place] [address] [email or web address] Insurance Assigned Provider 01/12/24 Luis Ignacio DO [address] [place] [address], [address] [place] [address] Cardiology 06/28/22 06/16/24 Flo Esteban MD [address] [place] [address] [email or web address] Cardiothoracic Surgery 06/28/22 06/16/24 Neisha Pinto, RANDI [address] [place] [address] [email or web address] PHCM Kiln Firer 02/26/23 06/10/25 Shreyas Wilson MD [address] [place] [address] Gastroenterology 06/17/24 Doretha Glynn MD [address] [place] [address] [address] [place] [address] Endocrinology 06/17/24 Izzy Hackett [address] [place] [address] [email or web address] PHC Community Economics Teacher 09/11/24 09/11/24 Radha Pereira RN [address] [place] [address] PHCM Kiln FirerSecurity Dispatcher 06/11/25 Jv Liz [address] [place] [address] Local Intermodal Truck Driver 08/12/25 08/12/25 documented as of this encounter Additional Source Comments The information contained in this document represents components of the legal health record. It is not the complete legal health record.[facility]
--- OUTSIDE RECORDS SUMMARY | 2025-09-08 18:06 | XMS_ITS ---
Author Organization [facility] Address [address] [place] [address] [place] [address] Phone Care Team Providers Care Area Coordinator Name Role Phone Lester Hicks MD Unavailable [phone] Margaux Montanez MD Unavailable Johann Hanson CNP Primary Care Provider [phone] Khang Kilgore MD Unavailable [phone] Shreyas Wilson MD Unavailable Doretha Glynn MD Unavailable [phone] Radha Pereira RN Unavailable [phone] Population Health Care Management (PHCM) Status:Enrolled (Active) Start date:10/23/2023 Enrollment date:10/23/2023 Current support & services provided:[facility]ARE [employer] Related social drivers of health:Housing Stability, Child or Family Care, Education, Food, Unemployment, Paying for Meds, Paying Utility Bills, Transportation, Digital Access, SNAP/WIC Case Team Name Relationship Phone Email Radha Pereira RN(Responsible Staff) Registered Nurse [phone] Izzy Herbert PHCM Mint Wafer Depositor [email or web address] Continued Care and Services Coordination
--- OUTSIDE RECORDS SUMMARY | 2025-09-08 18:06 | XMS_ITS | Encounter Summary ---
Author Organization [facility] Address [address] [place] [address] Phone Care Team Providers Care Stripping Cutter And Winder Name Role Phone Lester Hicks MD Unavailable [phone] Margaux Montanez MD Unavailable [phone] Johann Hanson CNP Primary Care Provider [phone] Khang Kilgore MD Unavailable Luis Ignacio DO Unavailable Flo Esteban MD Unavailable [phone] Corby Prado MD Unavailable Neisha Pinto RN Unavailable [email or web address] Shreyas Wilson MD Unavailable Doretha Glynn MD Unavailable [phone] Izzy Hackett Unavailable [email or web address] Radha Pereira RN Unavailable [phone] Jv Liz Unavailable Encounter Details Date Type Department Care Team (Late st Contact Info) Description 08/15/2022 Procedure Pass [facility] - [address] [id number] Social History Tobacco Use Types Packs/Day Years [...] high school, GED, job training, learning the Ghanaian language, technical skills, or developing parenting skills)? [...] st Contact Info) Description 09/01/2025 Procedure Pass [facility], [facility] - [address] [address] 09/10/2025 9:00 AM EST Office Visit [facility] Gastroenterology Clinic [address] [place] [address] Unknown, Unknown, Shreyas Limon MD [address] [place] [address] 09/21/2025 2:30 PM EST Office Visit [facility] All[facility] Critical [facility] Medicine [address] [place] [address] [place] [address] Lester Hicks MD [address] [place] [address] 10/07/2025 7:15 AM EST Appointment [facility] [address] [place] [address] Lester Hicks MD [address] [place] [address] 10/13/2025 9:20 AM EST Office Visit [facility] [address] [place] [address] [place] [address] Doretha Glynn MD [address] [place] [address] [email or web address] 10/15/2025 7:40 AM EST Appointment [facility], [facility] - [address] [address] Devorah Beck PA-C [address] [place] [address] 2 [place] [address] [email or web address] 12/22/2025 8:30 AM EDT Office Visit [address] [place] [address] Johann Hanson, BACK STRIP MACHINE OPERATOR [address] [place] [address], [address] [place] [address] [email or web address] 06/30/2026 8:00 AM EDT Office Visit [address] [place] [address] Johann Hanson CNP [address] [place] [address], [address] [place] [address] [email or web address] documented as of this encounter Visit [...] documented as of this encounter Care Teams Stripping Cutter And Winder Relationship Specialty Start Date End Date Johann Hanson CNP [address] [place] [address], [address] [place] [address] PCP - General Family Medicine 02/11/21 Lester Hicks MD [address] [place] [address] Historical LMR Provider 07/28/17 Margaux Montanez MD [address] [place] [address], [address] [place] [address] [email or web address] Historical LMR Provider 07/28/17 Khang Kilgore MD [address] [place] [address], [address] [place] [address] Insurance Assigned Provider 01/12/24 Luis Ignacio DO [address] [place] [address], [address] [place] [address] Cardiology 06/28/22 06/16/24 Flo Esteban MD [address] [place] [address] [place] [address] [email or web address] Cardiothoracic Surgery 06/28/22 06/16/24 Corby Prado MD [address] [place] [address], [address] [place] [address] Insurance Assigned Provider 08/13/22 09/16/22 Neisha Pinto RN [address] [place] [address], [address] [place] [address] [email or web address] Motorcoach Operator 02/26/23 06/10/25 Shreyas Wilson MD [address] [place] [address] Gastroenterology 06/17/24 Doretha Glynn MD [address] [place] [address] 3rd [place] [address] Endocrinology 06/17/24 Izzy Hackett [address] [place] [address] [email or web address] PHCM Community Ski Edge Painter 09/11/24 09/11/24 Radha Pereira RN [address] [place] [address] [email or web address] PHCM Motorcoach OperatorBand Machine Operator 06/11/25 Jv Liz [address] [place] [address] [email or web address] Dry Mop Maker 08/12/25 08/12/25 documented as of this encounter Additional Source Comments The information contained in this document represents components of the legal health record. It is not the complete legal health record.[facility]
--- OUTSIDE RECORDS SUMMARY | 2025-09-08 18:06 | XMS_ITS | Encounter Summary ---
Author Organization [facility] Address [address] [place] [address] Phone Care Team Providers Care Ob Gyn Name Role Phone Tricia Balderas DO Unavailable Lester Hicks MD Unavailable [phone] Margaux Montanez MD Unavailable Demario Floyd MD Unavailable Pam Benson MD Unavailable Adithya Campos LENDING CONSULTANT Unavailable Johann Hanson LENDING CONSULTANT Primary Care Provider [phone] Khang Kilgore MD Unavailable Luis Ignacio DO Unavailable Flo Esteban MD Unavailable [phone] Dilan Rowland MD Unavailable [phone] Corby Prado MD Unavailable [phone] Neisha Pinto RN Unavailable [email or web address] Shreyas Wilson MD Unavailable Doretha Glynn MD Unavailable [phone] Izzy Hackett Unavailable sami Radha Pereira RN Unavailable JoJv hernandez Unavailable Encounter Details Date Type Department Care Team ([facility] Contact Info) Description 02/22/2021 Procedure Pass [facility], [address] [address] Social History Tobacco Use Types Packs/Day Years [...] high school, GED, job training, learning the Greenlandic language, technical skills, or developing parenting skills)? [...] (Late Contact Info) Description 09/01/2025 Procedure Pass [address] [address] 09/10/2025 9:00 AM EST Office Visit [facility] Gastroenterology Clinic [address] [place] [address] Unknown, Unknown, Shreyas Limon MD [address] [place] [address] 09/21/2025 2:30 PM EST Office Visit [facility] All[facility] Critical Care Medicine [address] [place] [address] Lester Hicks MD [address] [place] [address] 10/07/2025 7:15 AM EST Appointment [facility] [address] [place] [address] Lester Hicks MD [address] [place] [address] 10/13/2025 9:20 AM EST Office Visit [facility] [address] [place] [address] Doretha Glynn MD [address] [place] [address] [email or web address] 10/15/2025 7:40 AM EST Appointment [address] [address] Devorah Beck PA-C [address] [place] [address] [email or web address] 12/22/2025 8:30 AM EDT Office Visit [address] [place] [address] Johann Hanson CNP [address] [facility], [address] [place] [address] [email or web address] 06/30/2026 8:00 AM EDT Office Visit [address] [place] [address] Johann Hanson CNP 22 [facility], [address] [place] [address] [email or web address] documented as of this encounter [...] documented as of this encounter Care Teams Ob Gyn Relationship Specialty Start Date End Date Johann Hanson CNP 22 [facility], [address] [place] [address] PCP - General Family Medicine 02/11/21 Tricia Balderas DO [address] [place] [address] [email or web address] Historical LMR Provider 07/28/17 10/15/21 Lester Hicks MD [address] [place] [address] [email or web address] Historical LMR Provider 07/28/17 Margaux Montanez MD [address] [place] [address], [address] [place] [address] [email or web address] Historical LMR Provider 07/28/17 Demario Floyd MD [address] [place] [address] [email or web address] Historical LMR Provider 07/28/17 2 Pam Benson MD [address] [place] [address] Historical LMR Provider 07/28/17 Adithya Campos, LENDING CONSULTANT [address] [place] [address] Historical LMR Provider 07/28/17 12/25/21 Khang Kilgore MD [address] [place] [address], [address] [place] [address] [email or web address] Insurance Assigned Provider 01/12/24 Luis Ignacio DO [address] [place] [address], [address] [place] [address] Cardiology 06/28/22 06/16/24 Flo Esteban MD [address] [place] [address] [place] [address] [place] [address] [email or web address] Cardiothoracic Surgery 06/28/22 06/16/24 Dilan Rowland MD [address] [place] [address], [address] [place] [address] Insurance Assigned Provider 07/15/22 08/13/22 Corby Prado MD [address] [place] [address], [address] [place] [address] Insurance Assigned Provider 08/13/22 09/16/22 Neisha Pinto RN [address] [place] [address], [address] [place] [address] [email or web address] PHCM Safety Intern 02/26/23 06/10/25 Shreyas Wilson MD [address] [place] [address] Gastroenterology 06/17/24 Doretha Glynn MD [address] [place] [address] 3rd [place] [address] Endocrinology 06/17/24 Izzy Hackett [address] [place] [address] [email or web address] PHCM Community Commercial Loan Closer 09/11/24 09/11/24 Radha Pereira, RANDI [address] [place] [address] PHCM Safety InternField Support Rep 06/11/25 Jv Liz [address] [place] [address] Supervisor Underwriting Clerks 08/12/25 08/12/25 documented as of this encounter Additional Source Comments The information contained in this document represents components of the legal health record. It is not the complete legal health record.[facility]
--- OUTSIDE RECORDS SUMMARY | 2025-09-08 18:06 | XMS_ITS | Encounter Summary ---
Author Organization [facility] Address [address] [place] [address] [place] [address] Phone Care Team Providers Care Broadcast Program Director Name Role Phone Tricia Balderas DO Unavailable Lester Hicks MD Unavailable [phone] Margaux Montanez MD Unavailable Demario Floyd MD Unavailable Pam Benson MD Unavailable [phone] Adithya Campos CONSTRUCTION PROJECT ENGINEER Unavailable Beatriz Donaldson BALLER TENDER Unavailable Beatriz Donaldson BALLER TENDER Primary Care Provider Mamta Whitney DO Primary Care Provider [phone] Mamta Whitney DO Primary Care Provider [phone] Johann Hanson CONSTRUCTION PROJECT ENGINEER Primary Care Provider [phone] Khang Kilgore MD Unavailable Luis Ignacio DO Unavailable Flo Esteban MD Unavailable [phone] Dilan Rowland MD Unavailable [phone] Corby Prado MD Unavailable [phone] Neisha Pinto RN Unavailable [email or web address] Shreyas Wilson MD Unavailable [phone] Doretha Glynn MD Unavailable [phone] Izzy Hackett Unavailable sami Radha Pereira RN Unavailable [phone] Jv Liz Unavailable Encounter Details Date Type Department Care Team (Late st Contact Info) Description 11/12/2019 Ancillary Orders [facility] Department [address] [place] [address] Beatriz Donaldson, EARL [address] [place] [address] Breast screening Social History Tobacco Use Types [...] Description 09/01/2025 Procedure Pass [facility], [facility] - [address] [address] 09/10/2025 9:00 AM EST Office Visit [facility] 10 [place] [address] Unknown, Unknown, Shreyas Limon MD [address] [address] 09/21/2025 2:30 PM EST Office Visit [facility] All[facility] Critical [facility] 10 [facility] [place] [address] Lester Hicks MD [address] [place] [address] 10/07/2025 7:15 AM EST Appointment [facility] 30 [place] [address] Lester Hicks MD [address] [place] [address] 10/13/2025 9:20 AM EST Office Visit [facility]ology [address] [place] [address] [place] [address] Doretha Glynn MD [address] [place] [address] [email or web address] 10/15/2025 7:40 AM EST Appointment [facility] 30 [place] [address] Devorah Beck PA-C [address] [place] [address] [email or web address] 12/22/2025 8:30 AM EDT Office Visit [address] [place] [address] Johann Hanson, CONSTRUCTION PROJECT ENGINEER [address] [place] [address], [address] [place] [address] [email or web address] 06/30/2026 8:00 AM EDT Office Visit [address] [place] [address] Johann Hanson, CONSTRUCTION PROJECT ENGINEER [address] [place] [address], [address] [place] [address] [email or web address] documented as of this encounter [...] documented as of this encounter Care Teams Broadcast Program Director Relationship Specialty Start Date End Date Beatriz Donaldson BALLER TENDER [address] [place] [address] PCP - General Family Medicine 10/04/17 04/11/20 Mamta Whitney DO [address] [place] [address] [email or web address] PCP - General Family Medicine 04/12/20 02/08/21 Mamta Whitney DO [address] [place] [address] [email or web address] PCP - General Family Medicine 02/10/21 02/10/21 Johann Hanson CNP [address] [facility], [address] [place] [address] [email or web address] PCP - General Family Medicine 02/11/21 Tricia Balderas DO 30 [place] [address] [email or web address] Historical LMR Provider 07/28/17 10/15/21 Lester Hicks MD [address] [place] [address] [email or web address] Historical LMR Provider 07/28/17 Margaux Montanez MD [address] [place] [address], [address] [place] [address] [email or web address] Historical LMR Provider 07/28/17 Demario Floyd MD [address] [place] [address] [email or web address] Historical LMR Provider 07/28/17 10/15/21 Pam Benson MD [address] [place] [address] [email or web address] Historical LMR Provider 07/28/17 10/15/21 Adithya Campos, CONSTRUCTION PROJECT ENGINEER [address] [place] [address] [email or web address] Historical LMR Provider 07/28/17 12/25/21 Beatriz Donaldson, BALLER TENDER [address] [place] [address] Historical LMR Provider 07/28/17 04/11/20 Khang Kilgore MD [address] [place] [address], [address] [place] [address] [email or web address] Insurance Assigned Provider 01/12/24 Luis Ignacio DO [address] [place] [address], [address] [place] [address] Cardiology 06/28/22 06/16/24 Flo Esteban MD [address] [place] [address] [place] [address] [email or web address] Cardiothoracic Surgery 06/28/22 06/16/24 Dilan Rowland MD [address] [place] [address], [address] [place] [address] [email or web address] Insurance Assigned Provider 07/15/22 08/13/22 Corby Prado MD [address] [place] [address], [address] [place] [address] [email or web address] Insurance Assigned Provider 08/13/22 09/16/22 Neisha Pinto RN [address] [place] [address], [address] [place] [address] [email or web address] PHCM Software Database Architect 02/26/23 06/10/25 Shreyas Wilson MD [address] [place] [address] Gastroenterology 06/17/24 Doretha Glynn MD [address] [place] [address] 3rd [place] [address] Endocrinology 06/17/24 Izzy Hacektt [address] [place] [address] [email or web address] PHCM Community Airplane Mechanic Apprentice 09/11/24 09/11/24 Radha Pereira, RN 10 [place] [address] PHCM Software Database ArchitectCasting Room Operator 06/11/25 Jv Liz [address] [place] [address] [email or web address] Brass Reclaimer 08/12/25 08/12/25 documented as of this encounter Additional Source Comments The information contained in this document represents components of the legal health record. It is not the complete legal health record.[facility]
--- OUTSIDE RECORDS SUMMARY | 2025-09-08 18:06 | XMS_ITS | Encounter Summary ---
Author Organization [facility] Address [address] [place] [address] Phone Care Team Providers Care Biomass Production Manager Name Role Phone Lester Hicks MD Unavailable [phone] Margaux Montanez MD Unavailable [phone] Johann Hanson CNP Primary Care Provider [phone] Khang Kilgore MD Unavailable Luis Ignacio DO Unavailable Flo Esteban MD Unavailable [phone] Neisha Pinto RN Unavailable [email or web address] Shreyas Wilson MD Unavailable Doretha Glynn MD Unavailable [phone] Izzy Hackett Unavailable [email or web address] Radha Pereira RN Unavailable Jv Liz Unavailable Encounter Details Date Type Department Care Team (Late st Contact Info) Description 12/07/2022 Procedure Pass [facility] 30 [place], [place] [phone] Social History Tobacco Use Types Packs/Day Years [...] 12/07/2022 9:18 AM Alise Hamilton, RN * [place] Suicide Severity Rating Scale (Screener/Recent Self-Report) Question Answer Date of Assessment Author 1. Wish to be (Past 1 Month) No 023 9:18 AM Alise Lindo, RN 2. Non-Specific Active Suici ronald Thoughts (Past 1 Month) No 12/07/2022 9:18 AM Alise Lindo, RN 6. Suicidal Behavior (Lifetime) No 9:18 AM EST Alise Martinez RN documented as of this encounter Plan of Treatment Upcoming Encounters Date Type Department Care Team (Late st Contact Info) Description 09/01/2025 Procedure Pass [facility], [address] [address] 09/10/2025 9:00 AM EST Office Visit [facility] [address] [place] [address] Unknown, Unknown, Shreyas Limon MD [address] [place] [address] 09/21/2025 2:30 PM EST Office Visit [facility], Allergy [facility] Critical Care Medicine [address] [place] [address] Lester Hicks MD [address] [place] [address] 10/07/2025 7:15 AM EST Appointment [facility] [address] [place] [address] Lester Hicks MD [address] [place] [address] 10/13/2025 9:20 AM EST Office Visit [facility] [address] [place] [address] Doretha Glynn MD [address] [place] [address] [email or web address] 10/15/2025 7:40 AM EST Appointment [address] [address] Devorah Beck PA-C [address] [place] [address] [email or web address] 12/22/2025 8:30 AM EDT Office Visit [address] [place] [address] Johann Hanson CNP [address] [place] [address], [address] [place] [address] [email or web address] 06/30/2026 8:00 AM EDT Office Visit [address] [place] [address] Johann Hanson CNP [address] [place] [address], [address] [place] [address] [email or web address] documented as of this encounter Visit Diagnoses Not on filedocumented in this encounter Additional Health Concerns Infection Onset Date Last Indicated Resolved Time COVID-19 10/07/2023 10/07/2023 10/28/2023 1:21 AM EST Assessment Noted Time PHQ-2 Depression Total Score: 0 05/15/20 22 1:45 PM EDT documented as of this encounter Care Teams Biomass Production Manager Relationship Specialty Start Date End Date Johann Hanson CNP [address] [place] [address], [address] [place] [address] PCP - General Family Medicine 02/11/21 Lester Hicks MD [address] [place] [address] Historical LMR Provider 07/28/17 Margaux Montanez MD [address] [place] [address], [address] [place] [address] [email or web address] Historical LMR Provider 07/28/17 Khang Kilgore MD [address] [place] [address], [address] [place] [address] [email or web address] Insurance Assigned Provider 01/12/24 Luis Ignacio DO [address] [place] [address], [address] [place] [address] [email or web address] Cardiology 06/28/22 06/16/24 Flo Esteban MD [address] [place] [address] [email or web address] Cardiothoracic Surgery 06/28/22 06/16/24 Neisha Pinto RN [address] [place] [address] [email or web address] PHCM Codifier 02/26/23 06/10/25 Shreyas Wilson MD [address] [place] [address] [email or web address] Gastroenterology 06/17/24 Doretha Glynn MD [address] [place] [address] 3rd [place] [address] Endocrinology 06/17/24 Izzy Hackett [address] [place] [address] [email or web address] PHCM Community Circular Clerk 09/11/24 09/11/24 Radha Pereira, RANDI [address] [place] [address] [email or web address] PHCM CodifierConsulting Systems Engineer 06/11/25 Jv Liz [address] [place] [address] [email or web address] Public Address Servicer 08/12/25 08/12/25 documented as of this encounter Additional Source Comments The information contained in this document represents components of the legal health record. It is not the complete legal health record.[facility]
--- OUTSIDE RECORDS SUMMARY | 2025-09-08 18:06 | XMS_ITS | Encounter Summary ---
Author Organization [facility] Address [address] [place] [address] [place] [address] Phone Care Team Providers Care Word Processing Supervisor Name Role Phone Lester Hicks MD Unavailable [phone] Margaux Montanez MD Unavailable Johann Hanson CNP Primary Care Provider [phone] Khang Kilgore MD Unavailable Luis Ignacio DO Unavailable Flo Esteban MD Unavailable [phone] Dilan [place]land MD Unavailable [phone] Corby Prado MD Unavailable [phone] Neisha Pinto RN Unavailable [email or web address] Shreyas Wilson MD Unavailable Doretha Glynn MD Unavailable [phone] Izzy Hackett Unavailable [email or web address] Radha Pereira RN Unavailable Jv Liz Unavailable Encounter Details Date Type Department Care Team (Late st Contact Info) Description 02/10/2022 Procedure Pass Non-Invasive Cardiology [address] [place] [address] Social History Tobacco Use Types Packs/Day Years [...] high school, GED, job training, learning the [place] language, technical skills, or developing parenting skills)? [...] st Contact Info) Description 09/01/2025 Procedure Pass [facility], [facility] 30 [place] [address] 09/10/2025 9:00 AM EST Office Visit [facility] 10 [place] [address] Unknown, Unknown, Shreyas Limon MD [address] [place] [address] 09/21/2025 2:30 PM EST Office Visit [facility] All[facility] Critical [facility] Medicine [address] [place] [address] [place] [address] Lester Hicks MD [address] [place] [address] 10/07/2025 7:15 AM EST Appointment [facility] [address] [place] [address] Lester Hicks MD [address] [place] [address] 10/13/2025 9:20 AM EST Office Visit [facility] [address] [place] [address] [place] [address] Doretha Glynn MD [address] [place] [address] [email or web address] 10/15/2025 7:40 AM EST Appointment [facility] - [address] [address] Devorah Beck PA-C [address] [place] [address] [email or web address] 12/22/2025 8:30 AM EDT Office Visit [address] [place] [address] Johann Hanson, VP INFORMATION TECHNOLOGY [facility] [address] [place] [address] [email or web address] 06/30/2026 8:00 AM EDT Office Visit [facility] Medicine [address] [place] [address] Johann Hanson CNP [facility] [address] [place] [address] [email or web address] documented as of this encounter [...] documented as of this encounter Care Teams Word Processing Supervisor Relationship Specialty Start Date End Date Johann Hanson CNP [facility] [place] [address] [email or web address] PCP - General Family Medicine 02/11/21 Lester Hicks MD [address] [place] [address] [email or web address] Historical LMR Provider 07/28/17 Margaux Montanez MD [address] [place] [address], [address] [place] [address] [email or web address] Historical LMR Provider 07/28/17 Khang Kilgore MD [address] [place] [address], [address] [place] [address] [email or web address] Insurance Assigned Provider 01/12/24 Luis Ignacio DO [address] [place] [address], [address] [place] [address] Cardiology 06/28/22 06/16/24 lFo Esteban MD [address] [place] [address] [email or web address] Cardiothoracic Surgery 06/28/22 06/16/24 Dilan [place] MD [address] [place] [address], [address] [place] [address] Insurance Assigned Provider 07/15/22 08/13/22 Corby Prado MD [address] [place] [address], [address] [place] [address] Insurance Assigned Provider 08/13/22 09/16/22 Neisha Pinto RN [address] [place] [address], [address] [place] [address] [email or web address] Rose Grader 02/26/23 06/10/25 Shreyas Wilson MD [address] [place] [address] Gastroenterology 06/17/24 Doretha Glynn MD [address] [place] [address] 3rd [place] [address] Endocrinology 06/17/24 Izzy Hackett 10 [place] [address] [email or web address] PHCM Community Dock Operations Supervisor 09/11/24 09/11/24 Radha Pereira, RN 10 [place] [address] PHCM Rose GraderBackend Developer 06/11/25 Jv Liz [address] [place] [address] Pantry Chef 08/12/25 08/12/25 documented as of this encounter Additional Source Comments The information contained in this document represents components of the legal health record. It is not the complete legal health record.[facility]
--- OUTSIDE RECORDS SUMMARY | 2025-09-08 18:06 | XMS_ITS | Encounter Summary ---
Author Organization [facility] Address [address] [place] [address] [place] [address] Phone Care Team Providers Care Elevated Work Platform Operator Name Role Phone Lester Hicks MD Unavailable [phone] Margaux Montanez MD Unavailable Johann Hanson CNP Primary Care Provider [phone] Khang Kilgore MD Unavailable Luis Ignacio DO Unavailable Flo Esteban MD Unavailable [phone] Neisha Pinto RN Unavailable [email or web address] Shreyas Wilson MD Unavailable [phone] Doretha Glynn MD Unavailable [phone] Izzy Hackett Unavailable [email or web address] Radha Pereira RN Unavailable [phone] Jv Liz Unavailable Encounter Details Date Type Department Care Team (Late st Contact Info) Description 11/17/2022 Procedure Pass [facility] [address] [place] [id number] Social History Tobacco Use Types Packs/Day Years [...] 11/17/2022 7:00 PM David Mccormick RN * [place] Suicide Severity Rating Scale (Screener/Recent Self-Report) Question [...] st Contact Info) Description 09/01/2025 Procedure Pass [facility], [address] [address] 09/10/2025 9:00 AM EST Office Visit [facility] [address] [place] [address] Unknown, Unknown, Shreyas Limon MD [address] [place] [address] 09/21/2025 2:30 PM EST Office Visit [facility] Critical [facility] Medicine [address] [place] [address] Lester Hicks MD [address] [place] [address] 10/07/2025 7:15 AM EST Appointment [facility] [address] [place] [address] Lester Hicks MD [address] [place] [address] 10/13/2025 9:20 AM EST Office Visit [facility] [address] [place] [address] Doretha Glynn MD [address] [place] [address] [email or web address] 10/15/2025 7:40 AM EST Appointment [facility], [address] [address] Devorah Beck PA-C [address] [place] [address] [email or web address] 12/22/2025 8:30 AM EDT Office Visit [address] [place] [address] Johann Hanson CNP [address] [place] [address], [address] [place] [address] [email or web address] 06/30/2026 8:00 AM EDT Office Visit [address] [place] [address] Johann Hanson CNP [address] [place] [address], [address] [place] [address] [email or web address] documented as of this encounter Visit Diagnoses Not on filedocumented in this encounter Additional Health Concerns Infection Onset Date Last Indicated Resolved Time COVID-19 10/07/2023 10/07/2023 10/28/2023 1:21 AM EST Assessment Noted Time PHQ-2 Depression Total Score: 0 05/15/20 22 1:45 PM EDT documented as of this encounter Care Teams Elevated Work Platform Operator Relationship Specialty Start Date End Date Johann Hanson CNP [address] [place] [address], [address] [place] [address] PCP - General Family Medicine 02/11/21 Lester Hicks MD [address] [place] [address] Historical LMR Provider 07/28/17 Margaux Montanez MD [address] [place] [address], [address] [place] [address] [email or web address] Historical LMR Provider 07/28/17 Khang Kilgore MD [address] [place] [address], [address] [place] [address] [email or web address] Insurance Assigned Provider 01/12/24 Luis Ignacio DO [address] [place] [address], [address] [place] [address] [email or web address] Cardiology 06/28/22 06/16/24 Flo Esteban MD [address] [place] [address] [email or web address] Cardiothoracic Surgery 06/28/22 06/16/24 Neisha Pinto RN [address] [place] [address] [email or web address] PHCM Distribution Field Engineer 02/26/23 06/10/25 Shreyas Wilson MD [address] [place] [address] [email or web address] Gastroenterology 06/17/24 Doretha Glynn MD [address] [place] [address] [address] [place] [address] Endocrinology 06/17/24 Izzy Hackett [address] [place] [address] [email or web address] PHCM Community Heel Seat Pounder 09/11/24 09/11/24 Radha Pereira, RANDI [address] [place] [address] [email or web address] PHCM Distribution Field EngineerSign Painter Helper 06/11/25 Jv Liz [address] [place] [address] [email or web address] Project Manager Retail 08/12/25 08/12/25 documented as of this encounter Additional Source Comments The information contained in this document represents components of the legal health record. It is not the complete legal health record.[facility]
--- OUTSIDE RECORDS SUMMARY | 2025-09-08 18:06 | XMS_ITS | Encounter Summary ---
Author Organization [facility] Address [address] [facility] [address] [place] [address] Phone Care Team Providers Care Health Technician Hearing Name Role Phone Lester Hicks MD Unavailable [phone] Margaux Montanez MD Unavailable [phone] Johann Hanson CNP Primary Care Provider [phone] Khang Kilgore MD Unavailable Neisha Pinto RN Unavailable [email or web address] Shreyas Wilson MD Unavailable Doretha Glynn MD Unavailable [phone] Radha Pereira RN Unavailable Jv Liz Unavailable Reason for Visit * Reason Comments Medication Refill Encounter Details Date Type Department Care Team (Late st Contact Info) Description 06/05/2025 Refill [facility] Rheumatology [address] [place], [place] [phone] Margaux Montanez MD [address] [facility], [address] [place] [address] [email or web address] Medication Refill Social History Tobacco Use Types [...] st Contact Info) Description 09/01/2025 Procedure Pass [facility], [facility] - [address] [address] 09/10/2025 9:00 AM EST Office Visit [facility] Gastroenterology Clinic [address] [place] [address] Unknown, Unknown, Shreyas Limon MD [address] [place] [address] 09/21/2025 2:30 PM EST Office Visit [facility] Pulmonary, Allergy and Critical Care Medicine [address] [place] [address] [place] [address] Lester Hicks MD [address] [place] [address] 10/07/2025 7:15 AM EST Appointment [facility] [address] [place] [address] Lester Hicks MD [address] [place] [address] 10/13/2025 9:20 AM EST Office Visit [facility] End[facility]inology [address] [place] [address] Doretha Glynn MD [address] [place] [address] [address] [place] [address] [email or web address] 10/15/2025 7:40 AM EST Appointment [facility] [address] [place] [address] Devorah Beck PA-C [address] [place] [address] [email or web address] 12/22/2025 8:30 AM EDT Office Visit [address] [place] [address] Johann Hanson CNP [address] [place] [address], [address] [place] [address] [email or web address] 06/30/2026 8:00 AM EDT Office Visit [address] [place] [address] Johann Hanson CNP [address] [place] [address], [address] [place] [address] [email or web address] documented as of this encounter Visit Diagnoses Diagnosis Inflammatory arthritis Unspecified inflammatory polyarthropathy documented in this encounter Additional Health Concerns Assessment Noted Time PHQ-9 Depression Total Score: 4 10/29/19 1:54 PM EST PHQ-2 Depression Total Score: 0 06/10/20 9:22 AM EDT documented as of this encounter Care Teams Health Technician Hearing Relationship Specialty Start Date End Date Johann Hanson CNP [address] [place] [address], [address] [place] [address] [email or web address] PCP - General Family Medicine 02/11/21 Lester Hicks MD [address] [place] [address] [email or web address] Historical LMR Provider 07/28/17 Margaux Montanez MD [address] [place] [address], [address] [place] [address] [email or web address] Historical LMR Provider 07/28/17 Khang Kilgore MD [address] [place] [address], [address] [place] [address] [email or web address] Insurance Assigned Provider 01/12/24 Neisha Pinto RN [address] [place] [address], [address] [place] [address] [email or web address] PHCM Food Or Baggage Handling Rampman 02/26/23 06/10/25 Shreyas Wilson MD [address] [place] [address] [email or web address] Gastroenterology 06/17/24 Doretha Glynn MD [address] [place] [address] [email or web address] Endocrinology 06/17/24 Radha Pereira, RN [address] [place] [address] [email or web address] PHC Food Or Baggage Handling RampmanProcess Manufacturing Engineer 06/11/25 Jv Liz [address] [place] [address] (work) [email or web address] Surface Room Shop Optician 08/12/25 08/12/25 documented as of this encounter Additional Source Comments The information contained in this document represents components of the legal health record. It is not the complete legal health record.[facility]
--- OUTSIDE RECORDS SUMMARY | 2025-09-08 18:06 | XMS_ITS | Encounter Summary ---
Author Organization [facility] Address [address] [place] [address] [place] [address] Phone Care Team Providers Care Automobile Tester Name Role Phone Lester Hicks MD Unavailable [phone] Margaux Montanez MD Unavailable [phone] Johann Hanson CNP Primary Care Provider [phone] Khang Kilgore MD Unavailable Shreyas Wilson MD Unavailable [phone] Doretha Glynn MD Unavailable [phone] Radha Pereira RN Unavailable [phone] Jv Liz Unavailable Encounter Details Date Type Department Care Team (Late st Contact Info) Description 08/07/2025 Orders Only [facility] [place] [facility] [address] [place] [address] Provider, MD Cesario [address] [place] [address] Social History Tobacco Use Types Packs/Day [...] st Contact Info) Description 09/01/2025 Procedure Pass [address] [address] 09/10/2025 9:00 AM EST Office Visit [facility] Gastroenterology Clinic [address] [place] [address] Unknown, Unknown, Shreyas Limon MD [address] [place] [address] 09/21/2025 2:30 PM EST Office Visit [facility] Pulmonary, Allergy and Critical Care Medicine [address] [place] [address] Lester Hicks MD [address] [place] [address] 10/07/2025 7:15 AM EST Appointment [facility] [address] [place] [address] Lester Hicks MD [address] [place] [address] 10/13/2025 9:20 AM EST Office Visit [facility] [address] [place] [address] Doretha Glynn MD [address] [place] [address] [email or web address] 10/15/2025 7:40 AM EST Appointment [address] [address] Devorah Beck PA-C [address] [place] [address] [email or web address] 12/22/2025 8:30 AM EDT Office Visit [address] [place] [address] Johann Hanson CNP [address] [place] [address], [address] [place] [address] [email or web address] 06/30/2026 8:00 AM EDT Office Visit [address] [place] [address] Johann Hanson CNP [address] [place] [address], [address] [place] [address] [email or web address] documented as of this encounter Procedures Procedure Name Priority Date/Time Associated Diagnosis Comments OUTSIDE IMAGING Routine 08/07/2025 4:14 PM EDT documented in this encounter Results * Outside Imaging Report Only (08/07/2025 4:14 PM EDT) us Historical Provider IMAnahi XR CHEST Final Res ult documented in this encounter Visit Diagnoses Not on filedocumented in this encounter Additional Health Concerns Assessment Noted Time PHQ-9 Depression Total Score: 4 10/29/19 24 1:54 PM EST PHQ-2 Depression Total Score: 0 06/23/20 25 12:32 PM EDT documented as of this encounter Care Teams Automobile Tester Relationship Specialty Start Date End Date Johann Hanson CNP [address] [place] [address], [address] [place] [address] PCP - General Family Medicine 02/11/21 Lester Hicks MD [address] [place] [address] [email or web address] Historical LMR Provider 07/28/17 Margaux Montanez MD [address] [place] [address], [address] [place] [address] Historical LMR Provider 07/28/17 Khang Kilgore MD [address] [facility] [place] [address] Insurance Assigned Provider 01/12/24 Shreyas Wilson MD [address] [place] [address] Gastroenterology 06/17/24 Doretha Glynn MD [address] [place] [address] Endocrinology 06/17/24 Radha Pereira, RN [address] [place] [address] PHCM RibberDigital Production Artist 06/11/25 Jv Liz [address] [place] [address] Civil Manager 08/12/25 08/12/25 documented as of this encounter Additional Source Comments The information contained in this document represents components of the legal health record. It is not the complete legal health record.[facility]
--- OUTSIDE RECORDS SUMMARY | 2025-09-08 18:06 | XMS_ITS | Encounter Summary ---
Author Organization [facility] Address [address] [place] [address] [place] [address] Phone Care Team Providers Care Title Department Manager Name Role Phone Lester Hicks MD Unavailable [phone] Margaux Montanez MD Unavailable Johann Hanson CNP Primary Care Provider [phone] Khang Kilgore MD Unavailable [phone] Luis Ignacio DO Unavailable Flo Esteban MD Unavailable [phone] Neisha Pinto RN Unavailable [email or web address] Shreyas Wilson MD Unavailable Doretha Glynn MD Unavailable [phone] Izzy Hackett Unavailable [email or web address] Radha Pereira RN Unavailable Jv Liz Unavailable Encounter Details Date Type Department Care Team (Latest Contact Info) Description 12/28/[address] [facility] Department [address] [place], [place] [address] Shreyas Wilson MD [address] [place] [address] [id number] [email or web address] Dysphagia, unspecified type (Primary Dx); Nausea and [...] st Contact Info) Description 09/01/2025 Procedure Pass [address] [address] 09/10/2025 9:00 AM EST Office Visit [facility] Gastroenterology Clinic [address] [place] [address] Unknown, Unknown, Shreyas Limon MD [address] [place] [address] 09/21/2025 2:30 PM EST Office Visit [facility] Pulmonary, Allergy and Critical Care Medicine [address] [place] [address] Lester Hicks MD [address] [place] [address] 10/07/2025 7:15 AM EST Appointment [facility] [address] [place] [address] Lester Hicks MD [address] [place] [address] 10/13/2025 9:20 AM EST Office Visit [facility]in[facility] [address] [place] [address] Doretha Glynn MD [address] [place] [address] [email or web address] 10/15/2025 7:40 AM EST Appointment [address] [address] Devorah Beck PA-C [address] [place] [address] 2 [place] [address] [email or web address] 12/22/2025 8:30 AM EDT Office Visit [address] [place] [address] Johann Hanson, COMMUNICATIONS DESIGNER [address] [place] [address], [address] [place] [address] [email or web address] 06/30/2026 8:00 AM EDT Office Visit [address] [place] [address] Johann Hanson, COMMUNICATIONS DESIGNER [address] [place] [address], [address] [place] [address] [email or web address] documented as of this encounter Results * [...] documented as of this encounter Care Teams Title Department Manager Relationship Specialty Start Date End Date Johann Hanson CNP [address] [place] [address], [address] [place] [address] PCP - General Family Medicine 02/11/21 Lester Hicks MD [address] [place] [address] Historical LMR Provider 07/28/17 Margaux Montanez MD [address] [place] [address], [address] [place] [address] [email or web address] Historical LMR Provider 07/28/17 Khang Kilgore MD [address] [place] [address], [address] [place] [address] Insurance Assigned Provider 01/12/24 Luis Ignacio DO [address] [place] [address], [address] [place] [address] Cardiology 06/28/22 06/16/24 Flo Esteban MD [address] [place] [address] [email or web address] Cardiothoracic Surgery 06/28/22 06/16/24 Neisha Pinto RN [address] [place] [address] [email or web address] PHCM Cabinet Abrasive Sandblaster 02/26/23 06/10/25 Shreyas Wilson MD [address] [place] [address] Gastroenterology 06/17/24 Doretha Glynn MD [address] [place] [address] [address] [place] [address] Endocrinology 06/17/24 Izzy Hackett [address] [place] [address] [email or web address] PHCM Community Service Establishment Attendant 09/11/24 09/11/24 Radha Pereira RN [address] [place] [address] PHCM Cabinet Abrasive SandblasterFashion Buyer 06/11/25 Jv Liz [address] [place] [address] Office Administrator 08/12/25 08/12/25 documented as of this encounter Additional Source Comments The information contained in this document represents components of the legal health record. It is not the complete legal health record.[facility]
--- OUTSIDE RECORDS SUMMARY | 2025-09-08 18:06 | XMS_ITS | Encounter Summary ---
Author Organization [facility] Address [address] [place] [address] [place] [address] Phone Care Team Providers Care Engineering Technologist Name Role Phone Tricia Balderas DO Unavailable Lester Hicks MD Unavailable [phone] Margaux Montanez MD Unavailable Demario Floyd MD Unavailable Pam Benson MD Unavailable [phone] Adithya Campos DANDY OPERATOR Unavailable Beatriz Donaldson ADJUNCT HISTORY INSTRUCTOR Unavailable Beatriz Donaldson ADJUNCT HISTORY INSTRUCTOR Primary Care Provider Mamta Whitney DO Primary Care Provider [phone] Mamta Whitney DO Primary Care Provider [phone] Johann Hanson DANDY OPERATOR Primary Care Provider [phone] Khang Kilgore MD Unavailable Luis Ignacio DO Unavailable Flo Esteban MD Unavailable [phone] Dilan Rowland MD Unavailable [phone] Corby Prado MD Unavailable [phone] Neisha Pinto RN Unavailable [email or web address] Shreyas Wilson MD Unavailable Doretha Glynn MD Unavailable Izzy Hackett Unavailable [email or web address] Radha Pereira RN Unavailable [phone] Jv Liz Unavailable Encounter Details Date Type Department Care Team (Late st Contact Info) Description 01/10/2019 Procedure Pass [facility] Cardiovascular And Interventional Radiology [address] [place] [address] Social History Tobacco Use Types Packs/Day Years [...] st Contact Info) Description 09/01/2025 Procedure Pass [address] [address] 09/10/2025 9:00 AM EST Office Visit [facility] G[facility]enterology [facility] [address] [place] [address] Unknown, Unknown, Srheyas Limon MD [address] [place] [address] [email or web address] 09/21/2025 2:30 PM EST Office Visit [facility] Pulmonary, Allergy and Critical Care Medicine [address] [place] [address] [place] [address] Lester Hicks MD [address] [place] [address] 10/07/2025 7:15 AM EST Appointment [facility] 30 [place] [address] Lester Hicks MD [address] [place] [address] 10/13/2025 9:20 AM EST Office Visit [facility] [address] [place] [address] Doretha Glynn MD [address] [place] [address] [email or web address] 10/15/2025 7:40 AM EST Appointment [facility], [facility] [place] [address] [place] [address] Devorah Beck PA-C [address] [place] [address] [email or web address] 12/22/2025 8:30 AM EDT Office Visit [address] [place] [address] Johann Hanson DANDY OPERATOR [address] [place] [address], [address] [place] [address] [email or web address] 06/30/2026 8:00 AM EDT Office Visit [address] [place] [address] Johann Hanson DANDY OPERATOR [address] [place] [address], [address] [place] [address] [email or web address] documented as of this encounter Visit Diagnoses Not on filedocumented in this encounter Additional Health Concerns Infection Onset Date Last Indicated Resolved Time CoV-Presumed 05/27/2022 05/27/2022 06/17/2022 1:21 AM EDT CoV-Presumed Comment:COVID-19 Added 10/12/2022 10/12/2022 10/13/2022 6:26 P M EST COVID-19 10/13/2022 10/13/2022 11/03/2022 1:21 AM EST COVID-19 10/07/2023 10/07/2023 10/28/2023 1:21 AM EST documented as of this encounter Care Teams Engineering Technologist Relationship Specialty Start Date End Date Beatriz Donaldson, ADJUNCT HISTORY INSTRUCTOR [address] [place] [address] PCP - General Family Medicine 10/04/17 04/11/20 Mamta Whitney DO [address] [place] [address] [email or web address] PCP - General Family Medicine 04/12/20 02/08/21 Mamta Whitney DO [address] [place] [address] [email or web address] PCP - General Family Medicine 02/10/21 02/10/21 Johann Hanson CNP [address] [facility] [place] [address] [email or web address] PCP - General Family Medicine 02/11/21 Tricia Balderas DO 30 [place] [address] [email or web address] Historical LMR Provider 07/28/17 10/15/21 Lester Hicks MD [address] [place] [address] [email or web address] Historical LMR Provider 07/28/17 Margaux Montanez MD [address] [place] [address], [address] [place] [address] [email or web address] Historical LMR Provider 07/28/17 Demario Floyd MD [address] [place] [address] [email or web address] Historical LMR Provider 07/28/17 10/15/21 Pam Benson MD [address] [place] [address] [email or web address] Historical LMR Provider 07/28/17 10/15/21 Adithya Campos, DANDY OPERATOR [address] [place] [address] [email or web address] Historical LMR Provider 07/28/17 12/25/21 Beatriz Donaldson, ADJUNCT HISTORY INSTRUCTOR [address] [place] [address] Historical LMR Provider 07/28/17 04/11/20 Khang Kilgore MD [address] [place] [address], [address] [place] [address] [email or web address] Insurance Assigned Provider 01/12/24 Luis Ignacio DO [address] [place] [address], [address] [place] [address] Cardiology 06/28/22 06/16/24 Flo Esteban MD [address] [place] [address] [place] [address] [email or web address] Cardiothoracic Surgery 06/28/22 06/16/24 Dilan Rowland MD [address] [place] [address], [address] [place] [address] [email or web address] Insurance Assigned Provider 07/15/22 08/13/22 Corby Prado MD [address] [place] [address], [address] [place] [address] [email or web address] Insurance Assigned Provider 08/13/22 09/16/22 Neisha Pinto RN [address] [place] [address], [address] [place] [address] [email or web address] PHCM Pelt Shearer 02/26/23 06/10/25 Shreyas Wilson MD [address] [place] [address] [email or web address] Gastroenterology 06/17/24 Doretha Glynn MD [address] [place] [address] [address] [place] [address] [email or web address] Endocrinology 06/17/24 Izzy Hackett [address] [place] [address] [email or web address] PHCM Community Corporate Travel Agent 09/11/24 09/11/24 Radha Pereira, RANDI [address] [place] [address] [email or web address] PHCM Pelt ShearerPower System Dispatcher 06/11/25 Jv Liz [address] [place] [address] [email or web address] Director Of Teenage Activities 08/12/25 08/12/25 documented as of this encounter Additional Source Comments The information contained in this document represents components of the legal health record. It is not the complete legal health record.[facility]
--- OUTSIDE RECORDS SUMMARY | 2025-09-08 18:06 | XMS_ITS | Encounter Summary ---
Author Organization [facility] Address [address] [place] [address] Phone Care Team Providers Care Casino Shift Manager Name Role Phone Lester Hicks MD Unavailable [phone] Margaux Montanez MD Unavailable [phone] Johann Hanson INSERT OPERATOR Primary Care Provider [phone] Khang Kilgore MD Unavailable [phone] Shreyas Wilson MD Unavailable [phone] Doretha Glynn MD Unavailable [phone] Radha Pereira RN Unavailable Jv Liz Unavailable Reason for Visit * Reason Onset Date Comments Lab sample 07/03/2025 Encounter Details Date Type Department Care Team (Late st Contact Info) Description 07/03/2025 Telephone [facility] [address] [place] [address] Johann Hanson, TIFFANIE [address] [facility], [address] [place] [address] [email or web address] Lab sample Social History Tobacco [...] high school, GED, job training, learning the Armenian language, technical skills, or developing parenting skills)? [...] I put a note in for manager desktop not to charge a copay. * Dolores [...] when this should be done. Central Support Silver Chaser (Please do not reply to this user; this inbox is not monitored.) Thank you. documented in this encounter Plan of Treatment Upcoming Encounters Date Type Department Care Team (Late st Contact Info) Description 09/01/2025 Procedure Pass [address] [address] 09/10/2025 9:00 AM EST Office Visit [facility] [address] [place] [address] Unknown, [place], Shreyas Limon MD [address] [place] [address] 09/21/2025 2:30 PM EST Office Visit [facility] [address] [place] [address] Lester Hicks MD [address] [place] [address] 10/07/2025 7:15 AM EST Appointment [facility] [address] [place] [address] Lester Hicks MD [address] [place] [address] 10/13/2025 9:20 AM EST Office Visit [facility]inology [address] [place] [address] Doretha Glynn MD [address] [place] [address] [email or web address] 10/15/2025 7:40 AM EST Appointment [address] [address] Devorah Beck PA-C [address] [place] [address] [email or web address] 12/22/2025 8:30 AM EDT Office Visit [address] [place] [address] Johann Hanson CNP [address] [facility] [place] [address] [email or web address] 06/30/2026 8:00 AM EDT Office Visit [facility] 22 [place] [address] Johann Hanson CNP [address] [facility] [place] [address] [email or web address] documented as of this encounter Visit Diagnoses Not on filedocumented in this encounter Additional Health Concerns Assessment Noted Time PHQ-9 Depression Total Score: 4 10/29/19 24 1:54 PM EST PHQ-2 Depression Total Score: 0 06/23/20 25 12:32 PM EDT documented as of this encounter Care Teams Casino Shift Manager Relationship Specialty Start Date End Date Johann Hanson CNP [address] [place] [address], [address] [place] [address] PCP - General Family Medicine 02/11/21 Lester Hicks MD [address] [place] [address] Historical LMR Provider 07/28/17 Margaux Montanez MD [address] [place] [address], [address] [place] [address] Historical LMR Provider 07/28/17 Khang Kilgore MD [address] [place] [address], [address] [place] [address] Insurance Assigned Provider 01/12/24 Shreyas Wilson MD [address] [address] Gastroenterology 06/17/24 Doretha Glynn MD [address] [place] [address] Endocrinology 06/17/24 Radha Pereira RN 10 [place] [address] PHC Cut Out MarkerPoll Clerk 06/11/25 Jv Liz [address] [place] [address] Hub Borer 08/12/25 08/12/25 documented as of this encounter Additional Source Comments The information contained in this document represents components of the legal health record. It is not the complete legal health record.[facility]
--- OUTSIDE RECORDS SUMMARY | 2025-09-08 18:06 | XMS_ITS | Encounter Summary ---
Author Organization [facility] Address [address] [place] [address] [place] [address] Phone Care Team Providers Care Truck Rental Service Attendant Name Role Phone Tricia Balderas DO Unavailable Lester Hicks MD Unavailable [phone] Margaux Montanez MD Unavailable Demario Floyd MD Unavailable Pam eBnson MD Unavailable Adithya Campos STATISTICAL ANALYST Unavailable Mamta Whitney DO Primary Care Provider [phone] Mamta Whitney DO Primary Care Provider [phone] Johann Hanson STATISTICAL ANALYST Primary Care Provider [phone] Khang Kilgore MD Unavailable Luis Ignacio DO Unavailable Flo Esteban MD Unavailable [phone] Dilan Rowland MD Unavailable [phone] Corby Prado MD Unavailable [phone] Neisha Pinto RN Unavailable [email or web address] Shreyas Wilson MD Unavailable Doretha Glynn MD Unavailable [phone] Izzy Hackett Unavailable [email or web address] Radha Pereira RN Unavailable Jv Liz Unavailable Encounter Details Date Type Department Care Team (Latest Contact Info) Description 04/14/2020 Transcribe Orders [facility] [address] [facility] 2nd [place] [address] Alise Winkler PA-C [address] [facility] [place] [address] [email or web address] Fatigue, unspecified type (Primary Dx); Diarrhea, unspecified [...] st Contact Info) Description 09/01/2025 Procedure Pass [facility], [facility] - [address] [address] 09/10/2025 9:00 AM EST Office Visit [facility] 10 [place] [address] Unknown, Unknown, Shreyas Limon MD [address] [address] 09/21/2025 2:30 PM EST Office Visit [facility] [address] [facility] [place] [address] Lester Hicks MD [address] [place] [address] 10/07/2025 7:15 AM EST Appointment [facility] P[facility] Lab [address] [place] [address] Lester Hicks MD [address] [place] [address] 10/13/2025 9:20 AM EST Office Visit [facility] [address] [place] [address] Doretha Glynn MD [address] [place] [address] [email or web address] 10/15/2025 7:40 AM EST Appointment [facility] - [address] [address] Devorah Beck PA-C [address] [place] [address] [email or web address] 12/22/2025 8:30 AM EDT Office Visit [address] [place] [address] Johann Hanson, STATISTICAL ANALYST [address] [place] [address], [address] [place] [address] [email or web address] 06/30/2026 8:00 AM EDT Office Visit [address] [place] [address] Johann Hanson, STATISTICAL ANALYST [address] [place] [address], [address] [place] [address] [email or web address] documented as of this encounter Results * Giardia antigen screen (04/15/2020 4:18 PM EDT) Pathologist [facility] ST GIARDIA ANTIGEN Negative Negative [facility] DPT OF LAB MED AND PAT+ Comment: (NOTE) ADDITIONAL INFORMATION Test Performed by Enzyme Immunoassay. Stool (Stool) 04/15/2020 4:1 8 PM EDT 04/15/2020 4:24 PM EDT Alise Winkler PA-C LAB BODY FLUIDS AND STOOL ORDER AZUL Final Result Performing Organization Address City/[facility]/ZIP Co de Phone Number [facility] DPT OF LAB MED AND PAT+ [address] [place] [address] * Ova and parasites, stool (04/15/2020 8:00 AM EDT) [facility] Special Requests None 04/15/2020 4:19 PM EDT [facility] DIRECT EXAM NO PARASITES FOUND BY DIRECT OR CONCENTRATION METHODS 04/26/2020 10:47 AM EDT [facility] DIRECT EXAM No parasites found by Trichrome Stain 04/26/2020 10:47 AM EDT [facility] Stool (Stool) 04/15/2020 8:0 0 AM EDT 04/15/2020 4:24 PM EDT Alise Winkler PA-C LAB BODY FLUIDS AND STOOL ORDER AZUL Final Result [facility] [address] [place] [address] * Fecal immunochemical test x1 (FIT) (04/15/2020 8:00 AM EDT) [facility] Immuno Fecal Occult Negative [facility] Stool (Stool) 04/15/2020 8:0 0 AM EDT 04/15/2020 4:23 PM EDT Alise Winkler PA-C LAB BODY FLUIDS AND STOOL ORDER AZUL Final Result Performing Organization Address [facility] de Phone Number [address] [address] * Fecal leukocyte examination (04/15/2020 8:00 AM EDT) Special Requests None 04/15/2020 4:19 PM EDT [facility] GRAM STAIN No WBC seen on smear. 04/16/2020 8:47 AM EDT [facility] Stool (Stool) 04/15/2020 8:0 0 AM EDT 04/15/2020 4:24 PM EDT us Alise Winkler PA-C LAB BODY FLUIDS AND STOOL ORDER AZUL Final Result Performing Organization Address [facility] de Phone Number [address] [address] * Stool culture (04/15/2020 8:00 AM EDT) Special Requests None 04/15/2020 4:19 PM EDT [facility] Stool Culture NO SALMONELLA, SHIGELLA OR CAMPYLOBACTER ISOLATED 04/16/2020 8:09 AM EDT [facility] Stool (Stool) 04/15/2020 8:0 0 AM EDT 04/15/2020 4:24 PM EDT us Alise Winkler PA-C LAB MICROBIOLOGY CULTURE ORDERA BLES Final Result Performing Organization Address [facility] Co de Phone Number [address] [address] * Immunoglobulin A (04/14/2020 12:05 PM EDT) IgA 84 70 - 400 mg/dL [facility] Blood 04/14/2020 12:0 5 PM EDT 04/14/2020 12:23 PM EDT us Alise Winkler PA-C LAB BLOOD BKR ORDERABLES Final Result Performing Organization Address [facility] Co de Phone Number [facility] [address] [place] [address] * Tissue transglutaminase IgA (04/14/2020 12:05 PM EDT) TTG IGA ANTIBODY <1.2 <4.0 (Negative) U/mL [facility] Blood 04/14/2020 12:0 5 PM EDT 04/14/2020 12:22 PM EDT us Alise Winkler PA-C LAB BLOOD BKR ORDERABLES Final Result [facility] [address] [place] [address] documented in this encounter Visit Diagnoses Diagnosis [...] documented as of this encounter Care Teams Truck Rental Service Attendant Relationship Specialty Start Date End Date Mamta Whitney DO [address] [place] [address] [email or web address] PCP - General Family Medicine 04/12/20 02/08/21 Mamta Whitney DO [address] [place] [address] [email or web address] PCP - General Family Medicine 02/10/21 02/10/21 Johann Hanson, TIFFANIE [address] [place] [address], [address] [place] [address] [email or web address] PCP - General Family Medicine 02/11/21 Tricia Balderas DO [address] [place] [address] [email or web address] Historical LMR Provider 07/28/17 10/15/21 Lester Hicks MD [address] [place] [address] [email or web address] Historical LMR Provider 07/28/17 Margaux Montanez MD [address] [place] [address], [address] [place] [address] [email or web address] Historical LMR Provider 07/28/17 Demario Floyd MD [address] [place] [address] [email or web address] Historical LMR Provider 07/28/17 2 Pam Benson MD [address] [place] [address] [email or web address] Historical LMR Provider 07/28/17 Adithya Campos, STATISTICAL ANALYST [address] [place] [address] [email or web address] Historical LMR Provider 07/28/17 12/25/21 Khang Kilgore MD [address] [place] [address], [address] [place] [address] [email or web address] Insurance Assigned Provider 01/12/24 Luis Ignacio DO [address] [place] [address], [address] [place] [address] Cardiology 06/28/22 06/16/24 Flo Esteban MD [address] [place] [address] [email or web address] Cardiothoracic Surgery 06/28/22 06/16/24 Dilan Rowland MD [address] [place] [address], [address] [place] [address] Insurance Assigned Provider 07/15/22 08/13/22 Corby Prado MD [address] [place] [address], [address] [place] [address] [email or web address] Insurance Assigned Provider 08/13/22 09/16/22 Neisha Pinto RN [address] [place] [address], [address] [place] [address] [email or web address] Wire Web Worker 02/26/23 06/10/25 Shreyas Wilson MD [address] [place] [address] Gastroenterology 06/17/24 Doretha Glynn MD [address] [place] [address] 3rd [place] [address] Endocrinology 06/17/24 Izzy Hackett 10 [place] [address] [email or web address] PH[facility] Community Sql Server Architect 09/11/24 09/11/24 Radha Pereira, RN [address] [place] [address] [facility] Wire Web WorkerWindow Machine Operator 06/11/25 Jv Liz [address] [place] [address] [email or web address] Sample Cutter 08/12/25 08/12/25 documented as of this encounter Additional Source Comments The information contained in this document represents components of the legal health record. It is not the complete legal health record.[facility]
--- OUTSIDE RECORDS SUMMARY | 2025-09-08 18:06 | XMS_ITS | Encounter Summary ---
Author Organization [facility] Address [address] [place] [address] Phone Care Team Providers Care Hourly Caregiver Name Role Phone Beatriz Donaldson SEED ANALYST Primary Care Provider [phone] Tricia Balderas DO Unavailable [phone] Lester Hicks MD Unavailable [phone] Margaux Montanez MD Unavailable [phone] Demario Floyd MD Unavailable Pam Benson MD Unavailable [phone] Adithya Campos SCRAP PREPARER Unavailable [phone] Beatriz Donaldson SEED ANALYST Unavailable [phone] Beatriz Donaldson SEED ANALYST Primary Care Provider [phone] Mamta Whitney DO Primary Care Provider [phone] Mamta Whitney DO Primary Care Provider [phone] Johann Hanson SCRAP PREPARER Primary Care Provider [phone] Khang Kilgore MD Unavailable Luis Ignacio DO Unavailable Flo Esteban MD Unavailable [phone] Dilan Rowland MD Unavailable [phone] Corby Prado MD Unavailable [phone] Neisha Pinto RN Unavailable [email or web address] Shreyas Wilson MD Unavailable Doretha Glynn MD Unavailable [phone] Izzy Hackett Unavailable [email or web address] Radha Pereira RN Unavailable Jv Liz Unavailable Encounter Details Date Type Department Care Team (Late st Contact Info) Description 09/03/2017 Ancillary Orders [facility] External Provider Virtual Department [address] [place] [address] Beatriz Donaldson, SEED ANALYST [address] [place] [address] Breast screening Social History Tobacco Use Types [...] (Late Contact Info) Description 09/01/2025 Procedure Pass [facility], [facility] [address] [place] [address] 09/10/2025 9:00 AM EST Office Visit [facility] 10 [place] [address] Unknown, Unknown, Shreyas Limon MD [address] [phone] 09/21/2025 2:30 PM EST Office Visit [facility] 10 [place] [address] Lester Hicks MD [address] [place] [address] 10/07/2025 7:15 AM EST Appointment [facility] P[facility] Lab [address] [place] [address] Lester Hicks MD [address] [place] [address] 10/13/2025 9:20 AM EST Office Visit [facility] [address] [place] [address] [place] [address] Doretha Glynn MD [address] [place] [address] [email or web address] 10/15/2025 7:40 AM EST Appointment [facility], [facility] [address] [place] [address] Devorah Beck PA-C [address] [place] [address] [email or web address] 12/22/2025 8:30 AM EDT Office Visit [address] [place] [address] Johann Hanson, SCRAP PREPARER [address] [place] [address], [address] [place] [address] [email or web address] 06/30/2026 8:00 AM EDT Office Visit [address] [place] [address] Johann Hanson, SCRAP PREPARER [address] [place] [address], [address] [place] [address] [email or web address] documented as of this encounter [...] There are scattered fibroglandular densities. POS - [id number] Narrative 08/12/2018 12:17 PM EST Full-field digital [...] There are scattered fibroglandular densities. POS - [id number] us Beatriz Donaldson SEED ANALYST IMG MG EXAMS Final Result documented in [...] documented as of this encounter Care Teams Hourly Caregiver Relationship Specialty Start Date End Date Beatriz Donaldson, EARL PCP - General 07/26/17 10/03/17 Beatriz Donaldson SEED ANALYST PCP - General Family Medicine 10/04/17 04/11/20 Mamta Whitney DO 9 [place] [address] [email or web address] PCP - General Family Medicine 04/12/20 02/08/21 Mamta Whitney DO [address] [place] [address] [email or web address] PCP - General Family Medicine 02/10/21 02/10/21 Johann Hanson CNP [address] [facility] [place] [address] [email or web address] PCP - General Family Medicine 02/11/21 Tricia Balderas DO [address] [place] [address] [email or web address] Historical LMR Provider 07/28/17 10/15/21 Lester Hicks MD [address] [place] [address] [email or web address] Historical LMR Provider 07/28/17 Margaux Montanez MD [address] [place] [address], [facility] [address] [place] [address] [email or web address] Historical LMR Provider 07/28/17 Demario Floyd MD [address] [place] [address] [email or web address] Historical LMR Provider 07/28/17 10/15/21 Pam Benson MD [address] [place] [address] [email or web address] Historical LMR Provider 07/28/17 10/15/21 Adithya Campos SCRAP PREPARER [address] [place] [address] Historical LMR Provider 07/28/17 12/25/21 Beatriz Donaldson, EARL [address] [place] [address] Historical LMR Provider 07/28/17 04/11/20 Khang Kilgore MD [address] [place] [address], [address] [place] [address] [email or web address] Insurance Assigned Provider 01/12/24 Luis Ignacio DO [address] [place] [address], [address] [place] [address] Cardiology 06/28/22 06/16/24 Flo Esteban MD [address] [place] [address] [email or web address] Cardiothoracic Surgery 06/28/22 06/16/24 Dilan Rowland MD [address] [place] [address], [address] [place] [address] [email or web address] Insurance Assigned Provider 07/15/22 08/13/22 Corby Prado MD [address] [place] [address], [address] [place] [address] [email or web address] Insurance Assigned Provider 08/13/22 09/16/22 Neisha Pinto RN [address] [place] [address], [address] [place] [address] [email or web address] Dentistry Teacher 02/26/23 06/10/25 Shreyas Wilson MD [address] [place] [address] Gastroenterology 06/17/24 Doretha Glynn MD [address] [place] [address] [address] [place] [address] Endocrinology 06/17/24 Izzy Hackett 10 [place] [address] [email or web address] [facility] Community [place] Report Developer 09/11/24 09/11/24 Radha Pereira, RANDI [address] [place] [address] [email or web address] [facility] Dentistry TeacherFlexographic Press Plate Setter 06/11/25 Jv Liz [address] [place] [address] [email or web address] Battery Hand 08/12/25 08/12/25 documented as of this encounter Additional Source Comments The information contained in this document represents components of the legal health record. It is not the complete legal health record.[facility]
--- OUTSIDE RECORDS SUMMARY | 2025-09-08 18:06 | XMS_ITS | Encounter Summary ---
Author Organization [facility] Address [address] [place] [address] [place] [address] Phone Care Team Providers Care Information Systems Administrator Name Role Phone Lester Hicks MD Unavailable [phone] Margaux Montanez MD Unavailable [phone] Johann Hanson CNP Primary Care Provider [phone] Khang Kilgore MD Unavailable [phone] Luis Ignacio DO Unavailable Flo Esteban MD Unavailable [phone] Neisha Pinto RN Unavailable [email or web address] Shreyas Wilson MD Unavailable Doretha Glynn MD Unavailable [phone] Izzy Hackett Unavailable [email or web address] Radha Pereira RN Unavailable [phone] Jv Liz Unavailable Encounter Details Date Type Department Care Team (Late st Contact Info) Description 12/07/2022 Procedure Pass [facility], Ct Scan - [address] [id number] Social History Tobacco Use Types Packs/Day Years [...] 12/07/2022 9:18 AM Alise Hamilton, RN * [place] Suicide Severity Rating Scale (Screener/Recent Self-Report) Question [...] st Contact Info) Description 09/01/2025 Procedure Pass [address] [address] 09/10/2025 9:00 AM EST Office Visit [facility] [address] [place] [address] Unknown, [place], Shreyas Limon MD [address] [place] [address] 09/21/2025 2:30 PM EST Office Visit [facility], Allergy [facility] Critical Care Medicine [address] [place] [address] Lester Hicks MD [address] [place] [address] 10/07/2025 7:15 AM EST Appointment [facility] [address] [place] [address] Lester Hicks MD [address] [place] [address] 10/13/2025 9:20 AM EST Office Visit [facility]inology [address] [place] [address] Doretha Glynn MD [address] [place] [address] [email or web address] 10/15/2025 7:40 AM EST Appointment [address] [address] Devorah Beck PA-C [address] [place] [address] [email or web address] 12/22/2025 8:30 AM EDT Office Visit [address] [place] [address] Johann Hanson CNP [address] [facility], [address] [place] [address] [email or web address] 06/30/2026 8:00 AM EDT Office Visit [address] [place] [address] Johann Hanson CNP [address] [place] [address], [address] [place] [address] [email or web address] documented as of this encounter Visit Diagnoses Not on filedocumented in this encounter Additional Health Concerns Infection Onset Date Last Indicated Resolved Time COVID-19 10/07/2023 10/07/2023 10/28/2023 1:21 AM EST Assessment Noted Time PHQ-2 Depression Total Score: 0 05/15/20 22 1:45 PM EDT documented as of this encounter Care Teams Information Systems Administrator Relationship Specialty Start Date End Date Johann Hanson CNP [address] [place] [address], [address] [place] [address] PCP - General Family Medicine 02/11/21 Lester Hicks MD [address] [place] [address] Historical LMR Provider 07/28/17 Margaux Montanez MD [address] [place] [address], [address] [place] [address] [email or web address] Historical LMR Provider 07/28/17 Khang Kilgore MD [address] [place] [address], [address] [place] [address] [email or web address] Insurance Assigned Provider 01/12/24 Luis Ignacio DO [address] [place] [address], [address] [place] [address] [email or web address] Cardiology 06/28/22 06/16/24 Flo Esteban MD [address] [place] [address] [email or web address] Cardiothoracic Surgery 06/28/22 06/16/24 Neisha Pinto RN [address] [place] [address] [email or web address] PHCM Hogshead Head Matcher 02/26/23 06/10/25 Shreyas Wilson MD [address] [place] [address] [email or web address] Gastroenterology 06/17/24 Doretha Glynn MD [address] [place] [address] 3rd [place] [address] [email or web address] Endocrinology 06/17/24 Izzy Hackett [address] [place] [address] [email or web address] PHC Community Endo Tech 09/11/24 09/11/24 Radha Pereira, RANDI [address] [place] [address] [email or web address] PHCM Hogshead Head MatcherDirector Presales 06/11/25 Jv Liz [address] [place] [address] [email or web address] Health Record Technician 08/12/25 08/12/25 documented as of this encounter Additional Source Comments The information contained in this document represents components of the legal health record. It is not the complete legal health record.[facility]
--- OUTSIDE RECORDS SUMMARY | 2025-09-08 18:06 | XMS_ITS | Encounter Summary ---
Author Organization [facility] Address [address] [place] [address] [place] [address] Phone Care Team Providers Care Alumnae Secretary Name Role Phone Tricia Balderas DO Unavailable Lester Hicks MD Unavailable Margaux Montanez MD Unavailable Demario Floyd MD Unavailable Pam Benson MD Unavailable [phone] Adithya Campos CASH APPLICATIONS REPRESENTATIVE Unavailable Beatriz Donaldson COMMUNICATIONS MANAGER Unavailable Beatriz Donaldson COMMUNICATIONS MANAGER Primary Care Provider Mamta Whitney DO Primary Care Provider [phone] Mamta Whitney DO Primary Care Provider [phone] Johann Hanson CASH APPLICATIONS REPRESENTATIVE Primary Care Provider [phone] Khang Kilgore MD Unavailable Luis Ignacio DO Unavailable Flo Esteban MD Unavailable [phone] Dilan Rowland MD Unavailable [phone] Corby Prado MD Unavailable [phone] Neisha Pinto RN Unavailable [email or web address] Shreyas Wilson MD Unavailable Doretha Glynn MD Unavailable [phone] Izzy Hackett Unavailable [email or web address] Radha Pereira RN Unavailable Jv Liz Unavailable Encounter Details Date Type Department Care Team (Late Contact Info) Description 05/29/2019 Telephone [facility] Pulmonary, Allergy and Critical Care Medicine [address] [place] [address] Aishwarya Vasquez MD [address] [place] [address] [email or web address] Social History Tobacco Use Types Packs/Day Years [...] Upcoming Encounters Date Type Department Care Team ([facility] Contact Info) Description 09/01/2025 Procedure Pass [facility] [address] [place] [address] 09/10/2025 9:00 AM EST Office Visit [facility] [address] [place] [address] Unknown, Unknown, Shreyas Limon MD [address] [place] [address] [id number] 09/21/2025 2:30 PM EST Office Visit [facility] Pulmonary, Allergy and Critical Care Medicine [address] [place] [address] [place] [address] Lester Hicks MD [address] [place] [address] 10/07/2025 7:15 AM EST Appointment [facility] [address] [place] [address] Lester Hicks MD [address] [place] [address] 10/13/2025 9:20 AM EST Office Visit [facility] [address] [place] [address] Doretha Glynn MD [address] [place] [address] [email or web address] 10/15/2025 7:40 AM EST Appointment [facility] [address] [place] [address] Devorah Beck PA-C [address] [place] [address] [email or web address] 12/22/2025 8:30 AM EDT Office Visit [address] [place] [address] Johann Hanson, CASH APPLICATIONS REPRESENTATIVE [address] [place] [address], [address] [place] [address] [email or web address] 06/30/2026 8:00 AM EDT Office Visit [address] [place] [address] Johann Hanson, CASH APPLICATIONS REPRESENTATIVE [address] [place] [address], [address] [place] [address] [email or web address] documented as of this encounter Visit Diagnoses Not on filedocumented in this encounter Additional Health Concerns Infection Onset Date Last Indicated Resolved Time CoV-Presumed 05/27/2022 05/27/2022 06/17/2022 1:21 AM EDT CoV-Presumed Comment:COVID-19 Added 10/12/2022 10/12/2022 10/13/2022 6:26 P M EST COVID-19 10/13/2022 10/13/2022 11/03/2022 1:21 AM EST COVID-19 10/07/2023 10/07/2023 10/28/2023 1:21 AM EST documented as of this encounter Care Teams Alumnae Secretary Relationship Specialty Start Date End Date Beatriz Donaldson, COMMUNICATIONS MANAGER [address] [place] [address] PCP - General Family Medicine 10/04/17 04/11/20 Mamta Whitney DO [address] [place] [address] [email or web address] PCP - General Family Medicine 04/12/20 02/08/21 Mamta Whitney DO [address] [place] [address] [email or web address] PCP - General Family Medicine 02/10/21 02/10/21 Johann Hanson CNP 22 [facility], [address] [place] [address] [email or web address] PCP - General Family Medicine 02/11/21 Tricia Balderas DO [address] [place] [address] [email or web address] Historical LMR Provider 07/28/17 10/15/21 Lester Hicks MD [address] [place] [address] [email or web address] Historical LMR Provider 07/28/17 Margaux Montanez MD [address] [place] [address], [address] [place] [address] [email or web address] Historical LMR Provider 07/28/17 Demario Floyd MD [address] [place] [address] [email or web address] Historical LMR Provider 07/28/17 10/15/21 Pam Benson MD [address] [place] [address] [email or web address] Historical LMR Provider 07/28/17 10/15/21 Adithya Campos, CASH APPLICATIONS REPRESENTATIVE [address] [place] [address] [email or web address] Historical LMR Provider 07/28/17 12/25/21 Beatriz Donaldson, COMMUNICATIONS MANAGER [address] [place] [address] Historical LMR Provider 07/28/17 04/11/20 Khang Kilgore MD [address] [place] [address], [address] [place] [address] [email or web address] Insurance Assigned Provider 01/12/24 Luis Ignacio DO [address] [place] [address], [address] [place] [address] Cardiology 06/28/22 06/16/24 Flo Esteban MD [address] [place] [address] [place] [address] [email or web address] Cardiothoracic Surgery 06/28/22 06/16/24 Dilan Rowland MD [address] [place] [address], [address] [place] [address] Insurance Assigned Provider 07/15/22 08/13/22 Corby Prado MD [address] [place] [address], [address] [place] [address] Insurance Assigned Provider 08/13/22 09/16/22 Neisha Pinto RN [address] [place] [address], [address] [place] [address] [email or web address] PHCM Teaching Dietitian 02/26/23 06/10/25 Shreyas Wilson MD [address] [place] [address] Gastroenterology 06/17/24 Doretha Glynn MD [address] [place] [address] 3[address] [place] [address] Endocrinology 06/17/24 Izzy Hackett [address] [place] [address] [email or web address] PHCM Community Manometer Technician 09/11/24 09/11/24 Radha Pereira, RN [address] [place] [address] [email or web address] PHC Teaching DietitianCommercial Art Instructor 06/11/25 Jv Liz [address] [place] [address] [email or web address] Enterprise Integration Architect 08/12/25 08/12/25 documented as of this encounter Additional Source Comments The information contained in this document represents components of the legal health record. It is not the complete legal health record.[facility]
--- OUTSIDE RECORDS SUMMARY | 2025-09-08 18:06 | XMS_ITS | Encounter Summary ---
Author Organization [facility] Address [address] [place] [address] [place] [address] Phone Care Team Providers Care Cnc Field Service Engineer Name Role Phone Lester Hicks MD Unavailable [phone] Margaux Montanez MD Unavailable Johann Hanson CNP Primary Care Provider [phone] Khang Kilgore MD Unavailable Luis Ignacio DO Unavailable [phone] Flo Esteban MD Unavailable [phone] Neisha Pinto RN Unavailable [email or web address] Shreyas Wilson MD Unavailable Doretha Glynn MD Unavailable [phone] Izzy Hackett Unavailable [email or web address] Radha Pereira RN Unavailable Jv Liz Unavailable Encounter Details Date Type Department Care Team (Latest Contact Info) Description 09/07/2023 Transcribe Orders [facility] Department [address] [place], [place] [phone] Shreyas Wilson MD [address] [place] [address] [phone] [email or web address] Gastroesophageal reflux disease, unspecified whether [...] st Contact Info) Description 09/01/2025 Procedure Pass [address] [address] 09/10/2025 9:00 AM EST Office Visit [facility] Gastroenterology Clinic [address] [place] [address] Unknown, Unknown, Shreyas Limon MD [address] [place] [address] 09/21/2025 2:30 PM EST Office Visit [facility] Pulmonary, Allergy and Critical Care Medicine [address] [place] [address] Lester Hicks MD [address] [place] [address] 10/07/2025 7:15 AM EST Appointment [facility] [address] [place] [address] Lester Hicks MD [address] [place] [address] 10/13/2025 9:20 AM EST Office Visit [facility] [address] [place] [address] Doretha Glynn MD [address] [place] [address] [email or web address] 10/15/2025 7:40 AM EST Appointment [place] [address] [place] [address] Devorah Beck PA-C [address] [place] [address] [email or web address] 12/22/2025 8:30 AM EDT Office Visit [address] [place] [address] Johann Hanson CNP [address] [place] [address], [address] [place] [address] [email or web address] 06/30/2026 8:00 AM EDT Office Visit [address] [place] [address] Johann Hanson CNP [address] [place] [address], [address] [place] [address] [email or web address] documented as of this encounter [...] as of this encounter Care Teams Cnc Field Service Engineer Relationship Specialty Start Date End Date Johann Hanson CNP [address] [place] [address], [address] [place] [address] [email or web address] PCP - General Family Medicine 02/11/21 Lester Hicks MD [address] [place] [address] 2nd [place] [address] Historical LMR Provider 07/28/17 Margaux Montanez MD [address] [place] [address], [address] [place] [address] [email or web address] Historical LMR Provider 07/28/17 Khang Kilgore MD [address] [place] [address], [address] [place] [address] [email or web address] Insurance Assigned Provider 01/12/24 Luis Ignacio DO [address] [place] [address], [address] [place] [address] Cardiology 06/28/22 06/16/24 Flo Esteban MD [address] [place] [address] [email or web address] Cardiothoracic Surgery 06/28/22 06/16/24 Neisha Pinto RN [address] [place] [address] [email or web address] PHCM Base Draw Operator 02/26/23 06/10/25 Shreyas Wilson MD [address] [place] [address] Gastroenterology 06/17/24 Doretha Glynn MD [address] [place] [address] 3rd [place] [address] Endocrinology 06/17/24 Izzy Hackett [address] [place] [address] [email or web address] PHCM Community Rectifying Operator 09/11/24 09/11/24 Radha Pereira, RN [address] [place] [address] [email or web address] PHCM Base Draw OperatorGifted Teacher 06/11/25 Jv Liz [address] [place] [address] [email or web address] Candy Dipper Hand 08/12/25 08/12/25 documented as of this encounter Additional Source Comments The information contained in this document represents components of the legal health record. It is not the complete legal health record.[facility]
== END 2025-09-08 18:02 | disposition home or self-care (01) ==
LOC: HO.MRI 18:01
PROVIDERS: Visit Provider Physician Assistant Medical
DX: R93.89 Abnormal findings on diagnostic imaging of other specified body structures (principal)
CPT/HCPCS: 74181

== ENCOUNTER → 2025-09-08 18:10 | Outpatient (BNV) | payer OTHER, SELFPAY | PROVIDERS: Visit Provider Radiology Diagnostic Radiology | DX: Q44.4 Choledochal cyst (principal); K83.8 Other specified diseases of biliary tract; R16.1 Splenomegaly, not elsewhere classified | CPT/HCPCS: 74181 ==

== ENCOUNTER 2025-09-09 07:19 | Outpatient (REF) | payer OTHER, SELFPAY ==
--- OUTSIDE RECORDS SUMMARY | 2021-10-10 17:00 | XMS_ITS | Encounter Summary ---
Author Organization [facility] Address [address] [place] [address] [place] [address] Phone Care Team Providers Care Director Of Group Counseling Program Name Role Phone Tricia Balderas Unavailable Lester Hicks MD Unavailable [phone] Margaux Montanez MD Unavailable Demario Floyd MD Unavailable [phone] Pam Benson MD Unavailable Adithya Campos TOWER DIRECTOR Unavailable [phone] Johann Hanson CNP Primary Care Provider [phone] Encounter Details Date Type Department Care Team (Late st Contact Info) Description 10/10/2021 5:00 PM EST Hospital Encounter [facility] [address] [place] [address] Natacha Hernandez CNP 12 [place], [place] [phone] [email or web address] Social History Tobacco Use Types Packs/Day Years [...] high school, GED, job training, learning the [place] language, technical skills, or developing parenting skills)? [...] 12/07/2022 9:18 AM Alise Hamilton RN * [place] Suicide Severity Rating Scale (Screener/Recent Self-Report) Question [...] st Contact Info) Description 09/01/2025 Procedure Pass [facility], [address] [address] 09/10/2025 9:00 AM EST Office Visit [facility] [address] [place] [address] Unknown, Unknown, Shreyas Limon MD [address] [place] [address] 09/21/2025 2:30 PM EST Office Visit [facility] [address] [place] [address] [place] [address] Lester Hicks MD [address] [place] [address] 10/07/2025 7:15 AM EST Appointment [facility] [address] [place] [address] Lester Hicks MD [address] [place] [address] 2nd [place] [address] 10/13/2025 9:20 AM EST Office Visit [facility] 22 [place] [address] Doretha Glynn MD [address] [place] [address] 3rd [place] [address] [email or web address] 10/15/2025 7:40 AM EST Appointment [facility] 30 [place] [address] Devorah Beck PA-C [address] [place] [address] [email or web address] 12/22/2025 8:30 AM EDT Office Visit [address] [place] [address] Johann Hanson, TOWER DIRECTOR [address] [place] [address], [address] [place] [address] [email or web address] 06/30/2026 8:00 AM EDT Office Visit [address] [place] [address] Johann Hanson, TOWER DIRECTOR [address] [place] [address], [address] [place] [address] [email or web address] documented as of this encounter [...] body heights. Increased anterolisthesis of L4 on R9wmadv 2008, likely secondary to facet degenerative changes. Natacha Hernandez TOWER DIRECTOR IMG XR SPINE Final Resul t documented [...] documented as of this encounter Care Teams Director Of Group Counseling Program Relationship Specialty Start Date End Date Johann Hanson CNP 22 [facility], [address] [place] [address] [email or web address] PCP - General Family Medicine 02/11/21 Tricia Balderas DO 30 [place] [address] [email or web address] Historical LMR Provider 07/28/17 10/15/21 Lester Hicks MD [address] [place] [address] [email or web address] Historical LMR Provider 07/28/17 Margaux Montanez MD 22 [facility], [address] [place] [address] [email or web address] Historical LMR Provider 07/28/17 Demario Floyd MD [address] [place] [address] [email or web address] Historical LMR Provider 07/28/17 2 Pam Benson MD [address] [address] Historical LMR Provider 07/28/17 Adithya Campos CNP 15 [facility], [address] [place] [address] [email or web address] Historical LMR Provider 07/28/17 12/25/21 documented as of this encounter Additional Source Comments The information contained in this document represents components of the legal health record. It is not the complete legal health record.[facility]
--- OUTSIDE RECORDS SUMMARY | 2025-09-09 07:24 | XMS_ITS | Encounter Summary ---
Author Organization [facility] Address [address] [place] [address] [place] [address] Phone Care Team Providers Care Processing Archivist Name Role Phone Lester Hicks MD Unavailable [phone] Margaux Montanez MD Unavailable [phone] Johann Hanson CNP Primary Care Provider [phone] Khang Kilgore MD Unavailable Neisha Pinto RN Unavailable [email or web address] Shreyas Wilson MD Unavailable Doretha Glynn MD Unavailable [phone] Radha Pereira RN Unavailable [phone] Jv Liz Unavailable Encounter Details Date Type Department Care Team (Late st Contact Info) Description 01/13/2025 Procedure Pass [facility] L2 PRU [address] [place] [address] Social History Tobacco Use Types Packs/Day Years [...] st Contact Info) Description 09/01/2025 Procedure Pass [address] [address] 09/10/2025 9:00 AM EST Office Visit [facility] Gastroenterology Clinic [address] [place] [address] Unknown, Unknown, Shreyas Limon MD [address] [place] [address] 09/21/2025 2:30 PM EST Office Visit [facility] Pul[facility], Allergy and Critical Care Medicine [address] [place] [address] Lester Hicks MD [address] [place] [address] 10/07/2025 7:15 AM EST Appointment [facility] [address] [place] [address] Lester Hicks MD [address] [place] [address] 10/13/2025 9:20 AM EST Office Visit [facility] [address] [place] [address] Doretha Glynn MD [address] [place] [address] [email or web address] 10/15/2025 7:40 AM EST Appointment [address] [address] Devorah Beck PA-C [address] [place] [address] [email or web address] 12/22/2025 8:30 AM EDT Office Visit [address] [place] [address] Johann Hanson CNP [address] [place] [address], [address] [place] [address] [email or web address] 06/30/2026 8:00 AM EDT Office Visit [address] [place] [address] Johann Hanson CNP [address] [place] [address], [address] [place] [address] [email or web address] documented as of this encounter Visit Diagnoses Not on filedocumented in this encounter Additional Health Concerns Assessment Noted Time PHQ-9 Depression Total Score: 4 10/29/19 24 1:54 PM EST PHQ-2 Depression Total Score: 0 06/10/20 24 9:22 AM EDT documented as of this encounter Care Teams Processing Archivist Relationship Specialty Start Date End Date Johann Hanson CNP [address] [place] [address], [address] [place] [address] [email or web address] PCP - General Family Medicine 02/11/21 Lester Hicks MD [address] [place] [address] 2nd [place] [address] [email or web address] Historical LMR Provider 07/28/17 Margaux Montanez MD [address] [place] [address], [address] [place] [address] [email or web address] Historical LMR Provider 07/28/17 Khang Kilgore MD [address] [place] [address], [address] [place] [address] [email or web address] Insurance Assigned Provider 01/12/24 Neisha Pinto, RANDI 22 [facility], [address] [place] [address] [email or web address] Athletic Coach 02/26/23 06/10/25 Shreyas Wilson MD [address] [place] [address] [email or web address] Gastroenterology 06/17/24 Doretha Glynn MD [address] [place] [address] [email or web address] Endocrinology 06/17/24 Radha Pereira RN [address] [place] [address] [email or web address] PHC Athletic CoachAutomotive Generator Repairer 06/11/25 Jv Liz [address] [place] [address] [email or web address] Bonus Clerk 08/12/25 08/12/25 documented as of this encounter Additional Source Comments The information contained in this document represents components of the legal health record. It is not the complete legal health record.[facility]
--- OUTSIDE RECORDS SUMMARY | 2025-09-09 07:24 | XMS_ITS | Encounter Summary ---
Author Organization [facility] Address [address] [place] [address] [place] [address] Phone Care Team Providers Care Special Loan Officer Name Role Phone Tricia Balderas DO Unavailable Lester Hicks MD Unavailable [phone] Margaux Montanez MD Unavailable Demario Floyd MD Unavailable Pam Benson MD Unavailable [phone] Adithya Campos ELECTRONIC TECHNOLOGIST Unavailable Beatriz Donaldson INTERIOR BLOCK WIRER Unavailable Beatriz Donaldson INTERIOR BLOCK WIRER Primary Care Provider Mamta Whitney DO Primary Care Provider [phone] Mamta Whitney DO Primary Care Provider [phone] Johann Hanson ELECTRONIC TECHNOLOGIST Primary Care Provider [phone] Khang Kilgore MD Unavailable Luis Ignacio DO Unavailable Flo Esteban MD Unavailable [phone] Dilan Rowland MD Unavailable [phone] Corby Prado MD Unavailable [phone] Neisha Pinto RN Unavailable [email or web address] Shreyas Wilson MD Unavailable Doretha Glynn MD Unavailable [phone] Izzy Hackett Unavailable [email or web address] Radha Pereira RN Unavailable Jv Liz Unavailable Encounter Details Date Type Department Care Team (Late st Contact Info) Description 06/21/2018 Transcribe Orders [facility] Specimen Processing [address] [place] [address] Beatriz Donaldson NP [address] [place] [address] Routine general medical examination at a health care facility (Primary Dx); Sjogren's syndrome with lung involvement; Inflammatory arthritis; 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, intermediate card tender, current use Social History Tobacco Use Types [...] st Contact Info) Description 09/01/2025 Procedure Pass [facility], [facility] [address] [place] [address] 09/10/2025 9:00 AM EST Office Visit [facility] [address] [place] [address] [phone] Unknown, Unknown, Shreyas Limon MD [address] [place] [address] [id number] 09/21/2025 2:30 PM EST Office Visit [facility] Pulmonary, Allergy and Critical Care Medicine [address] [place] [address] [place] [address] Lester Hicks MD [address] [place] [address] 10/07/2025 7:15 AM EST Appointment [facility] PFT Lab 30 [place] [address] Lester Hicks MD [address] [place] [address] 10/13/2025 9:20 AM EST Office Visit [facility] End[facility]inology [address] [place] [address] [place] [address] Doretha Glynn MD [address] [place] [address] [email or web address] 10/15/2025 7:40 AM EST Appointment [address] [address] Devorah Beck PA-C [address] [place] [address] [email or web address] 12/22/2025 8:30 AM EDT Office Visit [address] [place] [address] Johann Hanson, ELECTRONIC TECHNOLOGIST [address] [place] [address], [address] [place] [address] [email or web address] 06/30/2026 8:00 AM EDT Office Visit [address] [place] [address] Johann Hanson ELECTRONIC TECHNOLOGIST [address] [place] [address], [address] [place] [address] [email or web address] documented as of this encounter Procedures Procedure Name Priority Date/Time Associated Diagnosis Comments IRON Routine 06/21/2018 4:35 PM EDT Routine general medical examination at a health care facility COMPREHENSIVE METABOLIC PANEL (CMP) Routine 06/21/2018 4:35 PM EDT Sjogren's syndrome with lung involvement Inflammatory arthritis 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, senior living, current use SEDIMENTATION RATE (ESR) Routine 06/21/2018 4:35 PM EDT Sjogren's syndrome with lung involvement Inflammatory arthritis 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, senior living, current use CBC AND DIFFERENTIAL Routine 06/21/2018 4:35 PM EDT Sjogren's syndrome with lung involvement Inflammatory arthritis 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, intermediate card tender, current use COMPLEMENT C3 Routine 06/21/2018 4:35 PM EDT Sjogren's syndrome with lung involvement Inflammatory arthritis 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, senior living, current use COMPLEMENT C4 Routine 06/21/2018 4:35 PM EDT Sjogren's syndrome with lung involvement Inflammatory arthritis 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, senior living, current use C-REACTIVE PROTEIN (CRP) Routine 06/21/2018 4:35 PM EDT Sjogren's syndrome with lung involvement Inflammatory arthritis 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, intermediate card tender, current use THYROID STIMULATING HORMONE (TSH) Routine 06/21/2018 4:35 PM EDT Routine general medical examination at a health care facility FERRITIN Routine 06/21/2018 4:35 PM EDT Routine general medical examination at a health care facility documented in this encounter Results * Complement C4 (06/21/2018 4:35 PM EDT) COMPLEMENT C4 23 14 - 40 mg/dL [facility] DPT OF LAB MED AND PAT+ Blood 06/21/2018 4:35 PM EDT 06/22/2018 1:28 PM EDT us Margaux Montanez MD LAB BLOOD BKR ORDERABLES Final Result [facility] DPT OF LAB MED AND PAT+ [address] [place] [address] * Complement C3 (06/21/2018 4:35 PM EDT) COMPLEMENT C3 116 75 - 175 mg/dL [facility] DPT OF LAB MED AND PAT+ Blood 06/21/2018 4:35 PM EDT 06/22/2018 1:28 PM EDT us Margaux Montanez MD LAB BLOOD BKR ORDERABLES Final Result Performing Organization Address [facility] Co de Phone Number [facility] DPT OF LAB MED AND PAT+ [address] [place] [address] * Sedimentation rate (ESR) (06/21/2018 4:35 PM EDT) ESR 4 0 - 30 mm/h [facility] Blood 06/21/2018 4:35 PM EDT 06/21/2018 5:56 PM EDT Result Rob Montanez MD LAB BLOOD BKR ORDERABLES Final Result [facility] [address] [place] [address] * C-Reactive Protein (06/21/2018 4:35 PM EDT) C REACTIVE PROTEIN 0.5 0.0 - 4.0 mg/L [facility] Blood 06/21/2018 4:35 PM EDT 06/21/2018 5:56 PM EDT us Margaux Montanez MD LAB BLOOD BKR ORDERABLES Final Result [address] [address] * Comprehensive metabolic panel (06/21/2018 4:35 PM EDT) SODIUM 144 133 - 146 mmol/L [facility] POTASSIUM 3.6 3.3 - 5.1 mmol/L [facility] CHLORIDE 100 96 - 108 mmol/L [facility] CO2 30 21 - 35 mmol/L [facility] BUN 13 6 - 19 mg/dL [facility] CREATININE 0.70 0.5 - 1.5 mg/dL [facility] GLUCOSE 89 70 - 99 mg/dL [facility] ALBUMIN 4.3 3.9 - 4.8 g/dL [facility] TOTAL PROTEIN 6.7 6.5 - 8.0 g/dL [facility] CALCIUM 9.9 8.4 - 10.3 mg/dL [facility] ALKALINE PHOSPHATASE 59 39 - 117 U/L [facility] TOTAL BILIRUBIN 0.2 0.0 - 1.2 mg/dL [facility] AST 22 0 - 37 U/L [facility] ALT 16 0 - 40 U/L [facility] GLOBULIN 2.4 1 - 4.8 g/dL [facility] EGFR 97 >59 mL/min/1.7 3m2 [facility] Comment:If patient is black, multiply result by 1.159. Estimated glomerular filtration rate calculated using the CKD-EPI equation. ANION GAP 18 10 - 20 mmol/L [facility] Blood 06/21/2018 4:35 PM EDT 06/21/2018 5:56 PM EDT us Margaux Montanez MD LAB BLOOD BKR ORDERABLES Final Result [address] [address] * CBC and differential (06/21/2018 4:35 PM EDT) WBC 5.00 3.40 - 11.20 K/uL [facility] RBC 4.23 3.80 - 4.80 M/uL [facility] HGB 13.2 12.0 - 15.0 g/dL [facility] HCT 39.5 36.0 - 46.0 % [facility] PLT 229 130 - 400 K/uL [facility] MCV 93.4 79.0 - 98.0 fL [facility] MCH 31.2 27.0 - 34.8 pg [facility] MCHC 33.4 31.5 - 36.0 g/dL [facility] RDW 12.9 10.8 - 14.6 % [facility] MPV 10.5 9.4 - 12.4 fl [facility] NRBC 0.00 /100 WBCs [facility] ABSOLUTE NRBC 0.00 K/uL [facility] DIFF METHOD Auto [facility] NEUTS 53.8 45.30 - 77.70 % [facility] LYMPHS 34.4 12.30 - 39.70 % [facility] MONOS 8.2 4.10 - 12.80 % [facility] EOS 2.6 0 - 7.2 % [facility] BASOS 0.8 0 - 2.80 % [facility] Granulocytes, immature (%) 0.2 0.0 - 0.9 % [facility] ABSOLUTE NEUTS 2.69 1.40 - 7.70 K/uL [facility] ABSOLUTE LYMPHS 1.72 0.60 - 3.20 K/uL [facility] ABSOLUTE MONOS 0.41 0.11 - 0.59 K/uL [facility] ABSOLUTE EOS 0.13 0.01 - 0.50 K/uL [facility] ABSOLUTE BASOS 0.04 0.00 - 0.08 K/uL [facility] Granulocytes, immature 0.01 0.00 - 0.05 K/uL [facility] Blood 06/21/2018 4:35 PM EDT 06/21/2018 5:56 PM EDT us Margaux Montanez MD LAB BLOOD BKR ORDERABLES Final Result [facility] [address] [place] [address] * Ferritin (06/21/2018 4:35 PM EDT) FERRITIN 43 13 - 150 ug/L [facility] Blood 06/21/2018 4:35 PM EDT 06/21/2018 5:56 PM EDT us Beatriz S Anika INTERIOR BLOCK WIRER LAB BLOOD BKR ORDERABLES Fin al Result Performing Organization Address [facility] de Phone Number [address] [address] * Iron (06/21/2018 4:35 PM EDT) IRON 64 30 - 160 ug/dL [facility] Blood 06/21/2018 4:35 PM EDT 06/21/2018 5:56 PM EDT Beatriz S Anika INTERIOR BLOCK WIRER LAB BLOOD ORDERABLES Final R esult Performing Organization Address [facility] de Phone Number [address] [address] * (ABNORMAL) TSH (06/21/2018 4:35 PM EDT) TSH 0.04(L) 0.27 - 4.20 uIU/mL [facility] Blood 06/21/2018 4:35 PM EDT 06/21/2018 5:56 PM EDT Beatriz S Anika INTERIOR BLOCK WIRER LAB BLOOD BKR ORDERABLES Fin al Result Performing Organization Address [facility] de Phone Number [address] [address] documented in this encounter Visit Diagnoses Diagnosis Routine general medical examination at a health care facility- Primary Sjogren's syndrome with lung involvement Inflammatory arthritis Unspecified inflammatory polyarthropathy 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, intermediate card tender, current use documented in this encounter Additional Health Concerns Infection Onset Date Last Indicated Resolved Time CoV-Presumed 05/27/2022 05/27/2022 06/17/2022 1:21 AM EDT CoV-Presumed Comment:COVID-19 Added 10/12/2022 10/12/2022 10/13/2022 6:26 P M EST COVID-19 10/13/2022 10/13/2022 11/03/2022 1:21 AM EST COVID-19 10/07/2023 10/07/2023 10/28/2023 1:21 AM EST documented as of this encounter Care Teams Special Loan Officer Relationship Specialty Start Date End Date Beatriz Donaldson NP [address] [place] [address] PCP - General Family Medicine 10/04/17 04/11/20 Mamta Whitney DO [address] [place] [phone] [email or web address] PCP - General Family Medicine 04/12/20 02/08/21 Mamta Whitney DO [address] [place] [address] [email or web address] PCP - General Family Medicine 02/10/21 02/10/21 Johann Hanson CNP [address] [facility], [address] [place] [address] [email or web address] PCP - General Family Medicine 02/11/21 Tricia Balderas DO [address] [place] [address] [email or web address] Historical LMR Provider 07/28/17 10/15/21 Lester Hicks MD [address] [place] [address] [email or web address] Historical LMR Provider 07/28/17 Margaux Montanez MD [address] [place] [address], [address] [place] [address] [email or web address] Historical LMR Provider 07/28/17 Demario Floyd MD [address] [place] [address] [email or web address] Historical LMR Provider 07/28/17 10/15/21 Pam Benson MD [address] [place] [phone] [email or web address] Historical LMR Provider 07/28/17 10/15/21 Adithya Campos ELECTRONIC TECHNOLOGIST [address] [place] [address] [email or web address] Historical LMR Provider 07/28/17 12/25/21 Beatriz Donaldson, INTERIOR BLOCK WIRER [address] [place] [address] Historical LMR Provider 07/28/17 04/11/20 Khang Kilgore MD [address] [place] [address], [address] [place] [address] [email or web address] Insurance Assigned Provider 01/12/24 Luis Ignacio DO [address] [place] [address], [address] [place] [address] Cardiology 06/28/22 06/16/24 Flo Esteban MD [address] [place] [address] [address] [place] [address] [email or web address] Cardiothoracic Surgery 06/28/22 06/16/24 Dilan Rowland MD [address] [place] [address], [address] [place] [address] [email or web address] Insurance Assigned Provider 07/15/22 08/13/22 Corby Prado MD [address] [place] [address], [address] [place] [address] [email or web address] Insurance Assigned Provider 08/13/22 09/16/22 Neisha Pinto RN [address] [place] [address], [address] [place] [address] [email or web address] 02/26/23 06/10/25 Shreyas Wilson MD [address] [place] [address] Gastroenterology 06/17/24 Doretha Glynn MD [address] [place] [address] 3rd [place] [address] Endocrinology 06/17/24 Izzy Hackett [address] [place] [address] [email or web address] [facility] Community Coil Spring Assembler 09/11/24 09/11/24 Radha Pereira, RN [address] [place] [address] [email or web address] PHCM Chief Controller TowerSlag Motor Operator 06/11/25 Jv Liz [address] [place] [address] [email or web address] Criminal Judge 08/12/25 08/12/25 documented as of this encounter Additional Source Comments The information contained in this document represents components of the legal health record. It is not the complete legal health record.[facility]
--- OUTSIDE RECORDS SUMMARY | 2025-09-09 07:24 | XMS_ITS | Encounter Summary ---
Author Organization [facility] Address [address] [place] [address] [place] [address] Phone Care Team Providers Care Network Intern Name Role Phone Lester Hicks MD Unavailable [phone] Margaux Montanez MD Unavailable Johann Hanson CNP Primary Care Provider [phone] Khang Kilgore MD Unavailable Luis Ignacio DO Unavailable Flo Esteban MD Unavailable [phone] Dilan Rowland MD Unavailable [phone] Corby Prado MD Unavailable [phone] Neisha Pinto RN Unavailable [email or web address] Shreyas Wilson MD Unavailable Doretha Glynn MD Unavailable [phone] Izzy Hackett Unavailable [email or web address] Radha Pereira RN Unavailable [phone] Jv Liz Unavailable Encounter Details Date Type Department Care Team (Late st Contact Info) Description 02/10/2022 Procedure Pass Non-Invasive Cardiology [address] [place] [address] Social History Tobacco Use Types Packs/Day Years [...] st Contact Info) Description 09/01/2025 Procedure Pass [facility] 30 [place] [address] 09/10/2025 9:00 AM EST Office Visit [facility] 10 [place] [address] Unknown, Unknown, Shreyas Limon MD [address] [place] [address] 09/21/2025 2:30 PM EST Office Visit [facility] Pulmonary, Allergy and Critical Care Medicine [address] [place] [address] [place] [address] Lester Hicks MD [address] [place] [address] 10/07/2025 7:15 AM EST Appointment [facility] [address] [place] [address] Lester Hicks MD [address] [place] [address] 10/13/2025 9:20 AM EST Office Visit [facility] [address] [place] [address] [place] [address] Doretha Glynn MD [address] [place] [address] [email or web address] 10/15/2025 7:40 AM EST Appointment [facility] - [address] [address] Devorah Beck PA-C [address] [place] [address] [email or web address] 12/22/2025 8:30 AM EDT Office Visit [address] [place] [address] Johann Hanson, BLUEPRINT TRIMMER [address] [facility], [address] [place] [address] [email or web address] 06/30/2026 8:00 AM EDT Office Visit [facility] Medicine [address] [place] [address] Johann Hanson CNP 22 [facility], [address] [place] [address] [email or web address] documented as of this encounter [...] documented as of this encounter Care Teams Network Intern Relationship Specialty Start Date End Date Johann Hanson CNP 22 [facility], [address] [place] [address] [email or web address] PCP - General Family Medicine 02/11/21 Lester Hicks MD [address] [place] [address] [email or web address] Historical LMR Provider 07/28/17 Margaux Montanez MD [address] [place] [address], [address] [place] [address] [email or web address] Historical LMR Provider 07/28/17 Khang Kilgore MD [address] [place] [address], [address] [place] [address] [email or web address] Insurance Assigned Provider 01/12/24 Luis Ignacio DO [address] [place] [address], [address] [place] [address] Cardiology 06/28/22 06/16/24 Flo Esteban MD [address] [place] [address] [email or web address] Cardiothoracic Surgery 06/28/22 06/16/24 Dilan Rowland MD [address] [place] [address], [address] [place] [address] Insurance Assigned Provider 07/15/22 08/13/22 Corby Prado MD [address] [place] [address], [address] [place] [address] Insurance Assigned Provider 08/13/22 09/16/22 Neisha Pinto RN [address] [place] [address], [address] [place] [address] [email or web address] Lead 02/26/23 06/10/25 Shreyas Wilson MD [address] [place] [address] Gastroenterology 06/17/24 Doretha Glynn MD [address] [place] [address] 3rd [place] [address] Endocrinology 06/17/24 Izzy Hackett [address] [place] [address] [email or web address] PHCM Community Press Set Up 09/11/24 09/11/24 Radha Pereira, RN [address] [place] [address] PHCM Health LeadCommercial Photographer 06/11/25 Jv Liz [address] [place] [address] Welder Fitter Arc 08/12/25 08/12/25 documented as of this encounter Additional Source Comments The information contained in this document represents components of the legal health record. It is not the complete legal health record.[facility]
--- OUTSIDE RECORDS SUMMARY | 2025-09-09 07:24 | XMS_ITS | Encounter Summary ---
Author Organization [facility] Address [address] [place] [address] Phone Care Team Providers Care Screen Tender Name Role Phone Lester Hicks MD Unavailable [phone] Margaux Montanez MD Unavailable Johann Hanson CNP Primary Care Provider [phone] Khang Kilgore MD Unavailable [phone] Neisha Pinto RN Unavailable [email or web address] Shreyas Wilson MD Unavailable Doretha Glynn MD Unavailable [phone] Izzy Hackett Unavailable [email or web address] Radha Pereira RN Unavailable Jv Liz Unavailable Encounter Details Date Type Department Care Team (Late st Contact Info) Description 06/20/2024 Procedure Pass [facility] Endoscopy Admitting Dept Virtual Department [address] [place] [address] Social History Tobacco Use Types Packs/Day [...] high school, GED, job training, learning the Pakistani language, technical skills, or developing parenting skills)? [...] st Contact Info) Description 09/01/2025 Procedure Pass [facility] - [address] [address] 09/10/2025 9:00 AM EST Office Visit [facility] Gastroenterology Clinic [address] [place] [address] Unknown, Unknown, Shreyas Limon MD [address] [place] [address] 09/21/2025 2:30 PM EST Office Visit [facility] Pulmonary, Allergy and Critical Care Medicine [address] [place] [address] Lester Hicks MD [address] [place] [address] 10/07/2025 7:15 AM EST Appointment [facility] [address] [place] [address] Lester Hicks MD [address] [place] [address] 10/13/2025 9:20 AM EST Office Visit [facility] [address] [place] [address] Doretha Glynn MD [address] [place] [address] [email or web address] 10/15/2025 7:40 AM EST Appointment [facility] [address] [place] [address] Devorah Beck PA-C [address] [place] [address] [email or web address] 12/22/2025 8:30 AM EDT Office Visit [facility] [address] [place] [address] Johann Hanson CNP [address] [place] [address], [address] [place] [address] [email or web address] 06/30/2026 8:00 AM EDT Office Visit [facility] [address] [place] [address] Johann Hanson CNP [address] [place] [address], [address] [place] [address] [email or web address] documented as of this encounter Visit Diagnoses Not on filedocumented in this encounter Additional Health Concerns Assessment Noted Time PHQ-9 Depression Total Score: 4 10/29/19 24 1:54 PM EST PHQ-2 Depression Total Score: 0 06/10/20 24 9:22 AM EDT documented as of this encounter Care Teams Screen Tender Relationship Specialty Start Date End Date Johann Hanson CNP [address] [place] [address], [address] [place] [address] PCP - General Family Medicine 02/11/21 Lester Hicks MD [address] [place] [address] Historical LMR Provider 07/28/17 Margaux Montanez MD [address] [place] [address], [address] [place] [address] Historical LMR Provider 07/28/17 Khang Kilgore MD 22 [facility], [address] [place] [address] Insurance Assigned Provider 01/12/24 Neisha Pinto RN [address] [facility], [address] [place] [address] [email or web address] PHCM Relish Maker 02/26/23 06/10/25 Shreyas Wilson MD [address] [place] [address] Gastroenterology 06/17/24 Doretha Glynn MD [address] [place] [address] 3rd [place] [address] Endocrinology 06/17/24 Izzy Hackett [address] [place] [address] [email or web address] PHC Community Automation Engineering Technician 09/11/24 09/11/24 Radha Pereira, RANDI [address] [place] [address] PHCM Relish MakerMold Car Pusher 06/11/25 Jv Liz [address] [place] [address] Employment Law Attorney 08/12/25 08/12/25 documented as of this encounter Additional Source Comments The information contained in this document represents components of the legal health record. It is not the complete legal health record.[facility]
--- OUTSIDE RECORDS SUMMARY | 2025-09-09 07:24 | XMS_ITS | Clinical Summary ---
Author Organization [facility] Address [address] [place] [address] Phone Care Team Providers Care Cigar Wrapper Name Role Phone Lester Hicks MD Unavailable [phone] Margaux Montanez MD Unavailable Eunice Sanz CNP Primary Care Provider [phone] Khang Kilgore MD Unavailable Shreyas Murphy MD Unavailable Doretha Glynn MD Unavailable [phone] Radha Pereira RN Unavailable Allergies Active [...] folic acid (FOLVITE) 1 MG tabletIndication s: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, terminal superintendent, current use TAKE 1 TABLET BY MOUTH [...] (PLAQUENIL) 200 mg tabletIndication s:Inflammatory arthritis,Methot rexate, shelter, current use,Primary osteoarthritis involving multiple joints,Sjogren's syndrome [...] 1 mL 27 x 1/2 SyrgIndications: 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, shelter, current use USE DIRECTED TO INJECT UNDER [...] pain and has an orthopedics consult at [facility] this week. She is [...] her to contact [facility] clinic at [facility] for advice. Mouth sores [...] recent labs from late July 2024 at [facility] quite stable on [...] recent labs from late July 2024 at [facility] quite stable on [...] thyroid hormone. Will communicate about labs through [employer]. Reviewed symptoms of under and over replacement, patient to call if concerns. Follow-up in 6 months Assessment & Plan (04/23/2023 4:46 PM EDT): Establish care with endocrinology this fall as scheduled. For now, continue current dose of levothyroxine as last TSH was improved and she has not symptoms of over- or under-repletion. Assessment & Plan (07/22/2022 11:05 PM EDT): Close follow-up with treating interior design professor exactly as instructed to keep her thyroid function within the optimal range. Assessment & Plan (04/04/2022 11:15 AM EDT): Close follow-up with treating interior design professor exactly as instructed to keep her thyroid [...] therapy and follow-up as scheduled with her interior design professor. Assessment & Plan (08/22/2020 6:54 PM EST): Carefully continue current dose of thyroid replacements therapy and follow-up as scheduled with her interior design professor. Assessment & Plan (05/09/2020 4:52 PM EDT): Carefully continue current dose of thyroid replacements therapy and follow-up as scheduled with her interior design professor. Assessment & Plan (12/18/2019 11:01 AM EDT): [...] TSH on 08/08/2019 was suppressed at 0.05 LA U/mL. I do not know when her [...] 8:01 AM EDT): Daily sun protection. See relations director as scheduled at least every 12 months.-Most recent checkup from February 2025 Free of signs of Plaquenil toxicity She is arranging for ophthalmologic checkup in the nearest future. Assessment & Plan (03/19/2025 9:53 AM EDT): Daily sun protection. See relations director as scheduled at least every 12 months.-Most recent checkup from February 2025 Free of signs of Plaquenil toxicity She is arranging for ophthalmologic checkup in the nearest future. Assessment & Plan (12/18/2024 1:02 PM EDT): Daily sun protection. See relations director as scheduled at least every 12 months. She is arranging for ophthalmologic checkup in the nearest future. Assessment & Plan (10/03/2024 7:03 PM EST): Daily sun protection. See relations director as scheduled at least every 12 months. She is arranging for ophthalmologic checkup in the nearest future. Assessment & Plan (06/06/2024 12:49 PM EDT): Daily sun protection. See relations director as scheduled at least every 12 months. She is arranging for ophthalmologic checkup in the nearest future. Assessment & Plan (03/23/2024 12:09 PM EDT): Daily sun protection. See relations director as scheduled at least every 12 months. Assessment & Plan (11/28/2023 9:30 AM EST): Daily sun protection. See relations director as scheduled at least every 12 months. Assessment & Plan (05/04/2023 2:51 PM EDT): Daily sun protection. See relations director as scheduled at least every 12 months. Assessment & Plan (10/30/2022 3:44 PM EST): Daily sun protection. See relations director as scheduled at least every 12 months. Assessment & Plan (06/28/2022 4:12 PM EDT): Daily sun protection. See relations director as scheduled at least every 12 months. Assessment & Plan (04/04/2022 11:18 AM EDT): Daily sun protection. See relations director as scheduled at least every 12 months. Assessment & Plan (12/07/2021 4:45 PM EST): Daily sun protection. See relations director as scheduled. Assessment & Plan (09/08/2021 3:46 PM EST): Daily sun protection. See relations director as scheduled. Assessment & Plan (05/25/2021 4:46 PM EDT): Daily sun protection. See relations director as scheduled. Assessment & Plan (03/24/2021 11:21 AM EDT): Daily sun protection. See relations director as scheduled. Assessment & Plan (01/12/2021 4:02 PM EDT): Daily sun protection. See relations director as scheduled. Assessment & Plan (10/24/2020 9:02 PM EST): Daily sun protection. See relations director as scheduled. Assessment & Plan (08/22/2020 6:55 PM EST): Daily sun protection. See relations director as scheduled. Assessment & Plan (05/09/2020 4:54 PM EDT): Daily sun protection. See relations director as scheduled. Assessment & Plan (03/28/2020 12:14 PM EDT): Daily sun protection. See relations director as scheduled. Assessment & Plan (02/05/2020 10:49 AM EDT): Daily sun protection. See relations director as scheduled. Assessment & Plan (09/11/2019 8:47 AM EST): Daily sun protection. See relations director as scheduled. Assessment & Plan (07/08/2019 3:06 PM EDT): Daily sun protection. See relations director as scheduled. Assessment & Plan (03/25/2019 10:21 AM EDT): Daily sun protection. See relations director as scheduled. Assessment & Plan (12/23/2018 2:36 PM EDT): Daily sun protection. See relations director as scheduled. Assessment & Plan (11/19/2018 8:58 PM EST): Daily sun protection. Supervisor [place] as scheduled. Dry mouth 01/04/2018 Calculus of [...] and prior to next visit-standing orders in [facility]. Consider neurology consult regarding headaches and [...] safety and efficacy of therapy-standing orders in [facility]. Assessment & Plan (03/19/2025 9:48 AM EDT): Clinically currently well-controlled except L knee, hands and neck soreness and stiffness particularly in the morning. Get labs monitoring safety and efficacy of therapy prior to next visit-standing orders in [facility]. Consider neurology consult regarding headaches and [...] safety and efficacy of therapy-standing orders in [facility]. Assessment & Plan (12/18/2024 10:06 PM EDT): Clinically currently well-controlled except L knee, hands and neck soreness and stiffness particularly in the morning. Get labs monitoring safety and efficacy of therapy today and prior to next visit-standing orders in [facility]. Consider neurology consult regarding headaches and [...] safety and efficacy of therapy-standing orders in [facility]. Assessment & Plan (06/17/2024 11:48 AM EDT): Follow up with Dr. Hicks for Sjogren's, asthma. Continue inhalers. Assessment & Plan (06/06/2024 12:47 PM EDT): Clinically currently well-controlled except L knee, hands and neck soreness and stiffness particularly in the morning. Get labs monitoring safety and efficacy of therapy today and prior to next visit-standing orders in [facility]. Consider neurology consult regarding headaches and [...] safety and efficacy of therapy-standing orders in [facility]. Assessment & Plan (03/14/2024 3:34 PM EDT): Clinically currently well-controlled. Get labs monitoring safety and efficacy of therapy prior to next visit-standing orders in [facility]. Consider neurology consult regarding headaches and [...] therapy prior to next visit-standing orders in [facility]. Consider neurology consult regarding headaches and [...] undergo L TKR under spinal anesthesia at [facility] in October 2025. Call if worse [...] at least every 3-4 months-standing orders in [facility]. Gentle, regular exercise routine. Avoid falls, [...] at least every 3 months-standing orders in [facility]. Gentle, regular exercise routine. Avoid falls, [...] at least every 3 months-standing orders in [facility]. Gentle, regular exercise routine. Avoid falls, [...] therapy at least every 3 months. 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, shelter, current use 10/04/2017 Assessment & Plan (07/23/2025 [...] mixture of 1% lidocaine and 40 mg Hbyk-Ejfcid-qmrbrz refer for details to procedure note below. [...] mixture of 1% lidocaine and 40 mg Yddo-Jpxawa-ovspyd refer for details to procedure note below. [...] mixture of 1% lidocaine and 40 mg Lynf-Lvljgg-ivceti refer for details to procedure note below. [...] mixture of 1% lidocaine and 40 mg Aqzj-Nsuztl-eyvruw refer for details to procedure note below. 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 She agrees. [...] gain. 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 Given active and chronic GI symptoms, I [...] manifestation of SLE but will ask her surgery scheduling coordinator to weigh in. Unfortunately, the wait for [...] one of the aspiration procedures. Improved-followed by daily sales audit clerk and marine engine machinist. Assessment & Plan (06/17/2024 11:46 AM EDT): S/P repair 2022. Await EGD this week. Assessment & Plan (06/06/2024 12:52 PM EDT): Corrected surgically in November 2022 with subsequent pleural effusions, vasovagal reaction upon one of the aspiration procedures. Improved-followed by daily sales audit clerk and marine engine machinist. Assessment & Plan (02/28/2022 4:42 PM EDT): [...] Encounters Date Type Department Care Team Description 09/01/2025 Orders Only [address] [place] [address] Devorah Beck PA-C Abnormal ultrasound (Primary Dx) 09/01/[address] [place] [address] Karuna Carpio, RN Results 08/31/2025 Orders [place] [address] [place] [address] Eunice Sanz CNP Hypokalemia (Primary Dx) 08/27/2025 Orders Only [facility] [address] [place] [address] Provider, MD Cesario 08/24/2025 1:30 PM EST Office Visit [address] [place] [address] Eunice Sanz CNP Pre-operative cardiovascular examination (Primary Dx); Primary osteoarthritis of both knees; Essential hypertension; Abnormal electrocardiogram; SLE-Sjogren overlap syndrome; Class 1 obesity due to excess calories with serious comorbidity and body mass index (BMI) of 32.0 to 32.9 in adult 08/24/[address] [place] [address] Praveena Valadez MA Medication Refill 08/24/[address] [place] [address] Tierra Hannah LPN EKG Question 08/13/[address] [place] [address] Eunice Sanz CNP Medication Refill 08/07/2025 Orders Only [address] [place] [address] ProviderCesario MD 08/05/2025 Patient Outreach [facility] [address] [place] [address] Izzy Hackett Care Coordination (General outreach) 07/27/[address] [place] [address] Xiao Mckeon, RN Results 07/24/2025 Refill [facility] Rheumatology [address] [place] [address] [place] [address] Margaux Montanez MD Medication Refill 07/24/2025 Orders Only [address] [place] [address] Eunice Sanz, COST ACCOUNTING MANAGER 07/23/2025 8:00 AM EDT Office Visit [facility] Rheumatology [address] [place] [address] [place] [address] Margaux Montanez MD SLE-Sjogren overlap syndrome (Primary Dx); Sjogren's syndrome with lung involvement; Inflammatory arthritis; Primary osteoarthritis involving multiple joints; 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, shelter, current use; Long-term use of Plaquenil; Fibromyalgia; Gastroesophageal reflux disease with esophagitis without hemorrhage; Vitamin D insufficiency; PTSD (post-traumatic stress disorder); On selective serotonin reuptake inhibitor (SSRI) therapy; Class 1 obesity due to excess calories with serious comorbidity and body mass index (BMI) of 31.0 to 31.9 in adult 07/23/2025 Orders [place] [address] [place] [address] Eunice Sanz CNP Essential hypertension; Encounter for medication monitoring 07/22/2025 1:30 PM EDT Office Visit [address] [place] [address] Eunice Sanz CNP Screening for malignant neoplasm of cervix (Primary Dx); Primary osteoarthritis of both knees 07/16/2025 Telephone [facility] [address] [place] [address] Lester Hicks MD Appointment 07/06/2025 Enrollment [facility] [address] [place] [address] 07/06/2025 Refill [facility] [address] [place] [address] Lester Hicks MD Medication Refill 07/03/[address] [place] [address] Eunice Sanz CNP Lab sample 06/25/2025 7:33 AM EDT - 06/25/2025 11:59 PM EDT Hospital Encounter [facility] [address] [place] [address] Eunice Sanz CNP Discharge Disposition: Home or Self Care 06/24/2025 8:00 AM EDT Office Visit [address] [place] [address] Eunice Sanz CNP Encounter for general adult [...] Needs flu shot; Immunization counseling 06/18/2025 Refill [facility] [address] [place] [address] Eunice Sanz CNP Medication Refill 06/17/2024 Procedure [facility] [address] [place] [address] from Last 3 Months Immunizations Immunization Administration [...] high school, GED, job training, learning the Albanian language, technical skills, or developing parenting skills)? [...] st Contact Info) Description 09/01/2025 Procedure [facility], [facility] - [address] [address] 09/10/2025 9:00 AM EST Office Visit [facility] [address] [place] [address] Unknown, Unknown, Shreyas Limon MD [address] [place] [address] 09/21/2025 2:30 PM EST Office Visit [facility] [address] [place] [address] Lester Hicks MD [address] [place] [address] 10/07/2025 7:15 AM EST Appointment [facility] [address] [place] [address] Lester Hicks MD [address] [place] [address] 10/13/2025 9:20 AM EST Office Visit [facility] [address] [place] [address] Doretha Glynn MD [address] [place] [address] [email or web address] 10/15/2025 7:40 AM EST Appointment [facility] [address] [place] [address] Devorah Beck PA-C [address] [place] [address] [email or web address] 12/22/2025 8:30 AM EDT Office Visit [address] [place] [address] Eunice Sanz, COST ACCOUNTING MANAGER [address] [place] [address], [address] [place] [address] [email or web address] 06/30/2026 8:00 AM EDT Office Visit [address] [place] [address] Eunice Sanz, COST ACCOUNTING MANAGER [address] [place] [address], [address] [place] [address] [email or web address] Health Maintenance Due Date Last Done Comments [...] SCREENING 06/23/2026 06/23/2025, 10/29/19 24 CREATININE LEVEL 08/25/2026 08/25/2025, 04/2025, 03/12/2025, Additional history exists POTASSIUM LEVEL 08/25/2026 08/25/2025, 06/0 02/2025, 02/26/2024, Additional history exists MAMMOGRAM 06/25/2027 06/25/2025, 12/08, 07/27/2021, Additional history [...] REPORT ONLY Routine 08/27/2025 9:37 AM EST OUTSIDE IMAGING Routine 08/26/2025 1:52 PM EST CBC AND DIFFERENTIAL Routine 08/25/2025 2:13 PM EST Pre-operative cardiovascular examination BASIC METABOLIC PANEL (BMP) Routine 08/25/2025 2:12 PM EST Pre-operative cardiovascular examination ECG 12-LEAD Routine 08/24/2025 1:38 PM EST [...] PAP TEST Routine 06/24/2025 12:00 AM EDT THYROID STIMULATING HORMONE (TSH) Routine [...] Relevant to Health Maintenance Results * Outside US Imaging??Report Only (08/27/2025 9:37 AM EST) Historical Provider IMG US OP Final Res ult * Outside Imaging Report Only (08/26/2025 1:52 PM EST) Devorah Beck PA-C IMG XR CHEST Final Resul t * CBC and Differential (08/25/2025 2:13 PM EST) Blood (Blood) Eunice Sanz COST ACCOUNTING MANAGER LAB BLOOD BKR ORDERABLES Final Result Performing Organization Address City/[facility]/ZIP Co de Phone Number EXTERNAL NON-INTERFACED REF LAB * Basic Metabolic Panel (BMP) (08/25/2025 2:12 PM EST) Blood (Blood) Eunice Sanz COST ACCOUNTING MANAGER LAB BLOOD BKR ORDERABLES Final Result Performing Organization Address City/[facility] Co de Phone Number EXTERNAL NON-INTERFACED REF LAB * ECG 12-LEAD (08/24/2025 1:38 PM EST) Only the most recent of2 resultswithin the time period is included. Narrative EXTERNAL NON-INTERFACED REF LAB - 08/24/2025 1:38 PM EST Type of EKG: Standard. Global (04568). Notes Sinus rhythm, possible LVH. Nonspecific T wave changes. QTc 399 ms. No significant changes from 06/2025. Eunice Sanz CNP ECG ORDERABLES Edited Re sult - Final EXTERNAL NON-INTERFACED REF LAB * Outside Imaging Report Only (08/07/2025 4:14 PM EDT) Historical Provider IMAnahi XR CHEST Final Res ult * Outside Echo Report Only (07/22/2025 8:44 AM EDT) Eunice Sanz COST ACCOUNTING MANAGER CV ECHO ORDERABLES Final Result * Pap Test (07/22/2025 12:00 AM EDT) Only the most recent of2 resultswithin the time period is included. 07/22/2025 07/23/2025 9:2 3 AM EDT Narrative SEE NARRATIVE - 07/30/2025 1:38 [place] [address] Investigator Internal Affairs: Dilan Sams MD PRESCRIPTIONIST Cytology Report FINAL DIAGNOSIS A. PAP SMEAR (THIN PREP) CE: SPECIMEN ADEQUACY: Satisfactory for evaluation; limited squamous cellularity. Limited by inflammation INTERPRETATION: NEGATIVE FOR INTRAEPITHELIAL LESION OR MALIGNANCY. This specimen was analyzed by the automated ThinPrep Imaging System ([employer] and manually rescreened by a metal products fabricator assembler and/or pathologist. Electronically Signed Out By: BRITT [...] : 1960 (Age: 65) Sex: F Institution: [facility] Location: [facility] Date of Collection: 07/22/2025 Date of Reported: 07/30/2025 13:38 Results to: Eunice Sanz MSN Eunice Sanz COST ACCOUNTING MANAGER CYTOLOGY ORDERABLES Final Result SEE NARRATIVE * [...] be notified of the results and recommendations. us Eunice Sanz COST ACCOUNTING MANAGER IMG MG EXAMS Final Res ult * TSH (12/10/2024 4:12 PM EST) Blood us Doretha Glynn MD LAB BLOOD BKR ORDERABLES Final Result EXTERNAL NON-INTERFACED REF LAB * ENDOSCOPY, COLON (06/20/2024 9:51 AM EDT) Narrative Transcriptions Shreyas Murphy MD - 06/20/2024 9:51 AM EDT [facility] Patient Name: Herlinda Saleem Attending MD:: SHREYAS MURPHY MD, Procedure Date: 06/20/2024 9:51 AM Date of : 1960 Age: 64 Admit Type: Outpatient Gender: Female Room: [place] [address] Referring MD: EUNICE SANZ Exam Type: Colonoscopy [...] 9:51 AM Procedure Code(s): --- Professional --- 70111, Colonoscopy, flexible; with biopsy, single or multiple --- Technical --- 29427, Colonoscopy, flexible; with biopsy, single or multiple Diagnosis Code(s): --- Professional --- K52.9, Noninfective gastroenteritis and colitis, unspecified --- Technical --- K52.9, Noninfective gastroenteritis and colitis, unspecified CPT copyright 2021 [employer]. All rights reserved. The codes documented in this report are preliminary and upon ldr nurse reviewmay be revised to meet current compliance requirements. Procedure Date: 06/20/2024 9:51:[address] [place] [address] us Enuice Sanz COST ACCOUNTING MANAGER GI PROCEDURE ORDERABLES F inal Result * (ABNORMAL) Lipid panel (12/08/2020 4:37 PM EST) HDL 60 mg/dL [facility] Comment: Interpretation <40 mg/dL: Low HDL cholesterol (major risk factor for CHD) Greater than or equal to 60 mg/dL: High HDL cholesterol ( negative risk factor for CHD) HDL - cholesterol is affected by a number of factors, e.g. smoking, excerise, hormones, sex and age. CHOLESTEROL 192 0 - 240 mg/dL [facility] TRIGLYCERIDES 139 30 - 160 mg/dL [facility] LDL 104 50 - 129 mg/dL [facility] Comment: LDL levels in terms of risk for coronary heart disease: <100 mg/dL: Optimal 100-129 mg/dL: Near or above optimal 130-159 mg/dL: Borderline high 160-189 mg/dL: High >190 mg/dL: Very High CARDIAC RISK RATIO 3.2(L) 3.3 - 4.4 C [facility] Blood 12/08/2020 4:37 PM EST 12/08/2020 4:45 PM EST us Mamta Whitney DO LAB BLOOD BKR ORDERABLES F inal Result [address] [address] * Fecal immunochemical test x1 (FIT) (04/15/2020 8:00 AM EDT) Immuno Fecal Occult Negative [facility] Stool (Stool) 04/15/2020 8:0 0 AM EDT 04/15/2020 4:23 PM EDT us Alise Winkler PA-C LAB BODY FLUIDS AND STOOL ORDER AZUL Final Result Performing Organization Address [facility]/ZIP Co de Phone Number [address] [address] * Outside Hepatitis C Virus Screening (07/14/2014) Hepatitis C Screening - External Neg Historical Provider LAB BLOOD ORDERABLES Ibis l Result * OUTSIDE HIV TEST (07/14/2014) HIV - External Neg us Historical Provider LAB BLOOD ORDERABLES Ibis l Result from Last 3 Months or Most Recently Relevant to Health Maintenance Insurance [employer] Member Subscriber Plan / Payer ( fective 2023-Present) Name:Herlinda Haskins Relation to Subscriber:Self Name:Herlinda Haskins Payer ID:[id number] (NAIC) Type:PPO Address: [id number] [employer] Member Subscriber Plan / Payer ( fective 2023-Present) Name:Herlinda Haskins Relation to Subscriber:Self Name:Herlinda Haskins Payer ID:[id number] (NAIC) Type:PPO Address: [id number] [employer] [facility] BENEFITS ADMINISTRATORS [facility] [place] [address] Advance Directives For more information, please contact: [phone] (9AM - 5PM [facility], Sunday-Sunday) Documents on File Type Date Recorded 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 Healthcare Proxy 11/21/2022 3:55 PM [...] Code Status Confirmed With: Patient Care Teams Cigar Wrapper Relationship Specialty Start Date End Date Eunice Sanz CNP [address] [place] [address], [address] [place] [address] [email or web address] [email or web address] - General Family Medicine 02/11/21 Lester Hicks MD [address] [place] [address] [email or web address] Historical LMR Provider 07/28/17 Margaux Montanez MD [address] [place] [address], [address] [place] [address] [email or web address] Historical LMR Provider 07/28/17 Khang Kilgore MD [address] [place] [address], [address] [place] [address] Insurance Assigned Provider 01/12/24 Shreyas Murphy MD [address] [place] [address] Gastroenterology 06/17/24 Doretha Glynn MD [address] [place] [address] Endocrinology 06/17/24 Radha Pereira RN [address] [place] [address] [facility] Service Desk SpecialistIndependent Sales Representative 06/11/25 Additional Source Comments The information contained in this document represents components of the legal health record. It is not the complete legal health record.[facility]
--- OUTSIDE RECORDS SUMMARY | 2025-09-09 07:24 | XMS_ITS | Encounter Summary ---
Author Organization [facility] Address [address] [place] [address] Phone Care Team Providers Care Education Counselor Name Role Phone Lester Hicks MD Unavailable [phone] Margaux Montanez MD Unavailable Johann Hanson CNP Primary Care Provider [phone] Khang Kilgore MD Unavailable Luis Ignacio DO Unavailable [phone] Flo Esteban MD Unavailable [phone] Neisha Pinto RN Unavailable [email or web address] Shreyas Wilson MD Unavailable [phone] Doretha Glynn MD Unavailable [phone] Izzy Hackett Unavailable [email or web address] Radha Pereira RN Unavailable Jv Liz Unavailable Encounter Details Date Type Department Care Team (Late st Contact Info) Description 12/13/2022 Procedure Pass [facility] [address] [place], [place] [id number] Social History Tobacco Use Types Packs/Day Years [...] st Contact Info) Description 09/01/[address] [facility], [facility] - [address] [address] 09/10/2025 9:00 AM EST Office Visit [facility]ology [facility] [address] [place] [address] Unknown, Unknown, Shreyas Limon MD [address] [place] [address] 09/21/2025 2:30 PM EST Office Visit [facility] Pulmonary, Allergy and Critical Care Medicine [address] [place] [address] [place] [address] Lester Hicks MD [address] [place] [address] 10/07/2025 7:15 AM EST Appointment [facility] [address] [place] [address] Lester Hicks MD [address] [place] [address] 10/13/2025 9:20 AM EST Office Visit [facility] [address] [place] [address] Doretha Glynn MD [address] [place] [address] [email or web address] 10/15/2025 7:40 AM EST Appointment [address] [address] Devorah Beck PA-C [address] [place] [address] [email or web address] 12/22/2025 8:30 AM EDT Office Visit [address] [place] [address] Johann Hanson, TIFFANIE [address] [facility], [address] [place] [address] [email or web address] 06/30/2026 8:00 AM EDT Office Visit [address] [place] [address] Johann Hanson, NURSE CASE MANAGEMENT [address] [facility], [address] [place] [address] [email or web address] documented as of this encounter Visit Diagnoses Not on filedocumented in this encounter Additional Health Concerns Infection Onset Date Last Indicated Resolved Time COVID-19 10/07/2023 10/07/2023 10/28/2023 1:21 AM EST Assessment Noted Time PHQ-2 Depression Total Score: 0 05/15/20 1:45 PM EDT documented as of this encounter Care Teams Education Counselor Relationship Specialty Start Date End Date Johann Hanson CNP [address] [facility], [address] [place] [address] PCP - General Family Medicine 02/11/21 Lester Hicks MD [address] [place] [address] Historical LMR Provider 07/28/17 Margaux Montanez MD [address] [place] [address], [address] [place] [address] [email or web address] Historical LMR Provider 07/28/17 Khang Kilgore MD [address] [place] [address], [address] [place] [address] Insurance Assigned Provider 01/12/24 Luis Ignacio DO [address] [place] [address], [address] [place] [address] Cardiology 06/28/22 06/16/24 Flo Esteban MD [address] [place] [address] [email or web address] Cardiothoracic Surgery 06/28/22 06/16/24 Neisha Pinto RN [address] [place] [address] [email or web address] PHCM Buckram Sewer 02/26/23 06/10/25 Shreyas Wilson MD [address] [place] [address] Gastroenterology 06/17/24 Doretha Glynn MD [address] [place] [address] Endocrinology 06/17/24 Izzy Hackett [address] [place] [address] [email or web address] PHCM Community Keno Manager 09/11/24 09/11/24 Radha Pereira RN [address] [place] [address] PHCM Buckram SewerUsed Car Sales Supervisor 06/11/25 Jv Liz [address] [place] [address] Oil Inspector 08/12/25 08/12/25 documented as of this encounter Additional Source Comments The information contained in this document represents components of the legal health record. It is not the complete legal health record.[facility]
--- OUTSIDE RECORDS SUMMARY | 2025-09-09 07:24 | XMS_ITS | Encounter Summary ---
Author Organization [facility] Address [address] [facility] [address] [place] [address] Phone Care Team Providers Care Director Of Integrated Marketing Name Role Phone Lester Hicks MD Unavailable [phone] Margaux Montanez MD Unavailable Johann Hanson RECREATION PROGRAM COORDINATOR Primary Care Provider [phone] Khang Kilgore MD Unavailable Luis Ignacio DO Unavailable Flo Esteban MD Unavailable [phone] Neisha Pinto RN Unavailable [email or web address] Shreyas Wilson MD Unavailable Doretha Glynn MD Unavailable [phone] Izzy Hackett Unavailable [email or web address] Radha Pereira RN Unavailable Jv Liz Unavailable Encounter Details Date Type Department Care Team (Latest Contact Info) Description 12/22/2022 Transcribe Orders Virtual Department 30 [place] [address] Johann Hanson, RECREATION PROGRAM COORDINATOR [address] [facility], [address] [place], [place] [id number] [email or web address] Breast screening (Primary Dx) Social History [...] school, GED, job training, learning the [place] language, technical skills, or developing parenting skills)? [...] st Contact Info) Description 09/01/2025 Procedure Pass [facility], [facility] 30 [place] [address] 09/10/2025 9:00 AM EST Office Visit [facility] Gastroenterology Clinic [address] [place] [address] Unknown, Unknown, Shreyas Limon MD [address] [place] [address] 09/21/2025 2:30 PM EST Office Visit [facility] Pulmonary, Allergy and Critical Care Medicine [address] [place] [address] [place] [address] Lester Hicks MD [address] [place] [address] 10/07/2025 7:15 AM EST Appointment [facility] [address] [place] [address] Lester Hicks MD [address] [place] [address] 10/13/2025 9:20 AM EST Office Visit [facility] [address] [place] [address] Doretha Glynn MD [address] [place] [address] [email or web address] 10/15/2025 7:40 AM EST Appointment [facility], [facility] - [address] [address] Devorah Beck PA-C [address] [place] [address] [email or web address] 12/22/2025 8:30 AM EDT Office Visit [address] [place] [address] Johann Hanson, RECREATION PROGRAM COORDINATOR [address] [facility], [address] [place] [address] [email or web address] 06/30/2026 8:00 AM EDT Office [facility] [address] [place] [address] Johann Hanson, TIFFANIE [address] [facility], [address] [place] [address] [email or web address] documented as of this encounter [...] of this encounter Care Teams Director Of Integrated Marketing Relationship Specialty Start Date End Date Johann Hanson CNP [address] [place] [address], [address] [place] [address] PCP - General Family Medicine 02/11/21 Lester Hicks MD [address] [place] [address] Historical LMR Provider 07/28/17 Margaux Montanez MD [address] [place] [address], [address] [place] [address] [email or web address] Historical LMR Provider 07/28/17 Khang Kilgore MD [address] [place] [address], [address] [place] [address] Insurance Assigned Provider 01/12/24 Luis Ignacio DO [address] [place] [address], [address] [place] [address] Cardiology 06/28/22 06/16/24 Flo Esteban MD [address] [place] [address] [email or web address] Cardiothoracic Surgery 06/28/22 06/16/24 Neisha Pinto RN [address] [place] [address] [email or web address] PHCM Seismic Survey Assistant 02/26/23 06/10/25 Shreyas Wilson MD [address] [place] [address] [email or web address] Gastroenterology 06/17/24 Doretha Glynn MD [address] [place] [address] 3[address] [place] [address] Endocrinology 06/17/24 Izzy Hackett [address] [place] [address] [email or web address] PHC Community Director Of Catering 09/11/24 09/11/24 Radha Pereira, RANDI [address] [place] [address] [email or web address] PHCM Seismic Survey AssistantGasoline Dragline Operator 06/11/25 Jv Liz [address] [place] [address] [email or web address] Rubber Cutting Machine Tender 08/12/25 08/12/25 documented as of this encounter Additional Source Comments The information contained in this document represents components of the legal health record. It is not the complete legal health record.[facility]
--- OUTSIDE RECORDS SUMMARY | 2025-09-09 07:24 | XMS_ITS | Encounter Summary ---
Author Organization [facility] Address [address] [place] [address] Phone Care Team Providers Care Rotary Filter Operator Name Role Phone Beatriz Donaldson ECONOMICS FACULTY MEMBER Primary Care Provider [phone] Tricia Balderas DO Unavailable [phone] Lester Hicks MD Unavailable [phone] Margaux Montanez MD Unavailable [phone] Demario Floyd MD Unavailable Pam Benson MD Unavailable [phone] Adithya Campos SOFTWARE TEST AND VALIDATION ENGINEER Unavailable [phone] Beatriz Donaldson ECONOMICS FACULTY MEMBER Unavailable [phone] Beatriz Donaldson ECONOMICS FACULTY MEMBER Primary Care Provider [phone] Mamta Whitney DO Primary Care Provider [phone] Mamta Whitney DO Primary Care Provider [phone] Johann Hanson SOFTWARE TEST AND VALIDATION ENGINEER Primary Care Provider Khang Kilgore MD Unavailable Luis Ignacio DO Unavailable Flo Esteban MD Unavailable [phone] Dilan Rowland MD Unavailable [phone] Corby Prado MD Unavailable [phone] Neisha Pinto RN Unavailable [email or web address] Shreyas Wilson MD Unavailable Doretha Glynn MD Unavailable [phone] Izzy Hackett Unavailable [email or web address] Radha Pereira RN Unavailable [phone] Jv Liz Unavailable Encounter Details Date Type Department Care Team (Late st Contact Info) Description 09/03/2017 Ancillary Orders [facility] External Provider Virtual Department [address] [place] [address] Beatriz Donaldson, ECONOMICS FACULTY MEMBER [address] [place] [address] Breast screening Social History Tobacco Use Types [...] (Late Contact Info) Description 09/01/2025 Procedure Pass [facility], [facility] 30 [place] [address] 09/10/2025 9:00 AM EST Office Visit [facility] Gastroenterology Clinic 10 [place] [address] Unknown, Unknown, Shreyas Limon MD [address] [id number] 09/21/2025 2:30 PM EST Office Visit [facility] Pulmonary, Allergy and Critical Care Medicine 10 [place] [address] Lester Hicks MD [address] [place] [address] 10/07/2025 7:15 AM EST Appointment [facility] 30 [place] [address] Lester Hicks MD [address] [place] [address] 10/13/2025 9:20 AM EST Office Visit [facility] [address] [place] [address] [place] [address] Doretha Glynn MD [address] [place] [address] [email or web address] 10/15/2025 7:40 AM EST Appointment [facility], [facility] 30 [place] [address] Devorah Beck PA-C [address] [place] [address] [email or web address] 12/22/2025 8:30 AM EDT Office Visit [address] [place] [address] Johann Hanson, SOFTWARE TEST AND VALIDATION ENGINEER [address] [place] [address], [address] [place] [address] [email or web address] 06/30/2026 8:00 AM EDT Office Visit [address] [place] [address] Johann Hanson, SOFTWARE TEST AND VALIDATION ENGINEER [address] [place] [address], [address] [place] [address] [email or web address] documented as of this encounter [...] There are scattered fibroglandular densities. POS - [id number] Narrative 08/12/2018 12:17 PM EST Full-field digital [...] There are scattered fibroglandular densities. POS - [id number] us Beatriz Donaldson ECONOMICS FACULTY MEMBER IMG MG EXAMS Final Result documented in [...] documented as of this encounter Care Teams Rotary Filter Operator Relationship Specialty Start Date End Date Beatriz Donaldson, EARL PCP - General 07/26/17 10/03/17 Beatriz Donaldson ECONOMICS FACULTY MEMBER PCP - General Family Medicine 10/04/17 04/11/20 Mamta Whitney DO 9 [place] [address] [email or web address] PCP - General Family Medicine 04/12/20 02/08/21 Mamta Whitney DO 9 [place] [address] [email or web address] PCP - General Family Medicine 02/10/21 02/10/21 Johann Hanson CNP [address] [facility], [address] [place] [address] [email or web address] PCP - General Family Medicine 02/11/21 Tricia Balderas DO [address] [place] [address] [email or web address] Historical LMR Provider 07/28/17 10/15/21 Lester Hicks MD [address] [place] [address] [email or web address] Historical LMR Provider 07/28/17 Margaux Montanez MD [address] [place] [address], [facility] [address] [place] [address] [email or web address] Historical LMR Provider 07/28/17 Demario Floyd MD [address] [place] [address] [email or web address] Historical LMR Provider 07/28/17 10/15/21 Pam Benson MD [address] [place] [address] [email or web address] Historical LMR Provider 07/28/17 10/15/21 Adithya Campos SOFTWARE TEST AND VALIDATION ENGINEER [address] [place] [address] Historical LMR Provider 07/28/17 12/25/21 Beatriz Donaldson, EARL [address] [place] [address] Historical LMR Provider 07/28/17 04/11/20 Khang Kilgore MD [address] [place] [address], [address] [place] [address] [email or web address] Insurance Assigned Provider 01/12/24 Luis Ignacio DO [address] [place] [address], [address] [place] [address] Cardiology 06/28/22 06/16/24 Flo Esteban MD [address] [place] [address] [email or web address] Cardiothoracic Surgery 06/28/22 06/16/24 Dilan Rowland MD [address] [place] [address], [address] [place] [address] [email or web address] Insurance Assigned Provider 07/15/22 08/13/22 Corby Prado MD [address] [place] [address], [address] [place] [address] [email or web address] Insurance Assigned Provider 08/13/22 09/16/22 Neisha Pinto RN [address] [place] [address], [address] [place] [address] [email or web address] Remedial Project Manager 02/26/23 06/10/25 Shreyas Wilson MD [address] [place] [address] Gastroenterology 06/17/24 Doretha Glynn MD [address] [place] [address] 3[address] [place] [address] Endocrinology 06/17/24 Izzy Hackett 10 [place] [address] [email or web address] PHCM Community Bleach Liquor Maker 09/11/24 09/11/24 Radha Pereira, RANDI [address] [place] [address] [email or web address] PHCM Remedial Project ManagerLaborer Marine Terminal 06/11/25 Jv Liz [address] [place] [address] [email or web address] Concrete Form Setter 08/12/25 08/12/25 documented as of this encounter Additional Source Comments The information contained in this document represents components of the legal health record. It is not the complete legal health record.[facility]
--- OUTSIDE RECORDS SUMMARY | 2025-09-09 07:24 | XMS_ITS | Encounter Summary ---
Author Organization [facility] Address [address] [facility] [place] [address] Phone Care Team Providers Care Outpatient Services Director Name Role Phone Lester Hicks MD Unavailable [phone] Margaux Montanez MD Unavailable Johann Hanson CNP Primary Care Provider [phone] Khang Kilgore MD Unavailable Shreyas Wilson MD Unavailable Doretha Glynn MD Unavailable [phone] Radha Pereira RN Unavailable [phone] Encounter Details Date Type Department Care Team (Late st Contact Info) Description 08/27/2025 Orders Only [facility] Gastroenterology Clinic 10 [place] [address] Provider, MD Cesario [address] [place] [address] Social History Tobacco Use Types Packs/Day [...] high school, GED, job training, learning the Palestinian language, technical skills, or developing parenting skills)? [...] st Contact Info) Description 09/01/2025 Procedure Pass [facility], [address] [address] 09/10/2025 9:00 AM EST Office Visit [facility] Gastroenterology Clinic [address] [place] [address] Unknown, Unknown, Shreyas Limon MD [address] [place] [address] 09/21/2025 2:30 PM EST Office Visit [facility], Allergy [facility] Critical Care Medicine [address] [place] [address] Lester Hicks MD [address] [place] [address] 10/07/2025 7:15 AM EST Appointment [facility] [address] [place] [address] Lester Hicks MD [address] [place] [address] 10/13/2025 9:20 AM EST Office Visit [facility] [address] [place] [address] Doretha Glynn MD [address] [place] [address] [phone] [email or web address] 10/15/2025 7:40 AM EST Appointment [facility], [address] [address] Devorah Beck PA-C [address] [place] [address] [email or web address] 12/22/2025 8:30 AM EDT Office Visit [address] [place] [address] Johann Hanson CNP [address] [place] [address], [address] [place] [address] [email or web address] 06/30/2026 8:00 AM EDT Office Visit [address] [place] [address] Johann Hanson CNP [address] [place] [address], [address] [place] [address] [email or web address] documented as of this encounter [...] as of this encounter Care Teams Outpatient Services Director Relationship Specialty Start Date End Date Johann Hanson CNP [address] [place] [address], [address] [place] [address] [email or web address] PCP - General Family Medicine 02/11/21 Lester Hicks MD [address] [place] [address] [place] [address] [email or web address] Historical LMR Provider 07/28/17 Margaux Montanez MD [address] [facility], [address] [place] [address] Historical LMR Provider 07/28/17 Khang Kilgore MD [address] [facility], [address] [place] [address] Insurance Assigned Provider 01/12/24 Shreyas Wilson MD [address] [place] [address] Gastroenterology 06/17/24 Doretha Glynn MD [address] [place] [address] 3[address] [place] [address] Endocrinology 06/17/24 Radha Pereira, RN [address] [place] [address] [email or web address] PHCM Machine Shorthand TeacherCourt Stenographer 06/11/25 documented as of this encounter Additional Source Comments The information contained in this document represents components of the legal health record. It is not the complete legal health record.[facility]
--- OUTSIDE RECORDS SUMMARY | 2025-09-09 07:24 | XMS_ITS | Encounter Summary ---
Author Organization [facility] Address [address] [facility] [address] [place] [address] Phone Care Team Providers Care Window Repairer Name Role Phone Lester Hicks MD Unavailable [phone] Margaux Montanez MD Unavailable Johann Hanson PRODUCT INTRODUCTION MANAGER Primary Care Provider [phone] Khang Kilgore MD Unavailable Shreyas Wilson MD Unavailable [phone] Doretha Glynn MD Unavailable [phone] Radha Pereira RN Unavailable Encounter Details Date Type Department Care Team (Late st Contact Info) Description 08/31/2025 Orders Only [facility] [address] [place] [address] [place], [place] [phone] Johann Hanson, PRODUCT INTRODUCTION MANAGER [address] [facility], [address] [place], [place] [id number] [email or web address] Hypokalemia (Primary Dx) Social History [...] high school, GED, job training, learning the Spanish language, technical skills, or developing parenting skills)? [...] Info) Description 09/01/2025 Procedure Pass [facility] - [address] [address] 09/10/2025 9:00 AM EST Office Visit [facility] Gastroenterology Clinic [address] [place] [address] Unknown, Unknown, Shreyas Limon MD [address] [place] [address] 09/21/2025 2:30 PM EST Office Visit [facility], Allergy [facility] Critical Care Medicine [address] [place] [address] Lester Hicks MD [address] [place] [address] 10/07/2025 7:15 AM EST Appointment [facility] [address] [place] [address] Lester Hicks MD [address] [place] [address] 10/13/2025 9:20 AM EST Office Visit [facility] [address] [place] [address] Doretha Glynn MD [address] [place] [address] [email or web address] 10/15/2025 7:40 AM EST Appointment [facility] [address] [place] [address] Devorah Beck PA-C 10 [facility] 2 [place] [address] [email or web address] 12/22/2025 8:30 AM EDT Office Visit [address] [place] [address] Johann Hanson CNP [address] [place] [address], [address] [place] [address] [email or web address] 06/30/2026 8:00 AM EDT Office Visit [address] [place] [address] Johann Hanson CNP [address] [place] [address], [address] [place] [address] [email or web address] Scheduled Orders Name Type Priority [...] documented as of this encounter Care Teams Window Repairer Relationship Specialty Start Date End Date Johann Hanson CNP [address] [place] [address], [address] [place] [address] PCP - General Family Medicine 02/11/21 Lester Hicks MD [address] [place] [address] 2nd floor [place], [place] [id number] [email or web address] Historical LMR Provider 07/28/17 Margaux Montanez MD [address] [facility], [address] [place] [address] Historical LMR Provider 07/28/17 Khang Kilgore MD [address] [place] [address], [address] [place] [address] Insurance Assigned Provider 01/12/24 Shreyas Wilson MD [address] [place] [address] Gastroenterology 06/17/24 Doretha Glynn MD [address] [place] [address] Endocrinology 06/17/24 Radha Pereira, RN [address] [place] [address] [email or web address] PHCM Utility Worker DriverPain Management Nurse Practitioner 06/11/25 documented as of this encounter Additional Source Comments The information contained in this document represents components of the legal health record. It is not the complete legal health record.[facility]
--- OUTSIDE RECORDS SUMMARY | 2025-09-09 07:24 | XMS_ITS | Encounter Summary ---
Author Organization [facility] Address [address] [place] [address] [place] [address] Phone Care Team Providers Care Quality Compliance Manager Name Role Phone Lester Hicks MD Unavailable [phone] Margaux Montanez MD Unavailable [phone] Johann Hanson CNP Primary Care Provider [phone] Khang Kilgore MD Unavailable [phone] Shreyas Wilson MD Unavailable Doretha Glynn MD Unavailable [phone] Radha Pereira RN Unavailable [phone] Jv Liz Unavailable Encounter Details Date Type Department Care Team (Late st Contact Info) Description 08/07/2025 Orders Only [facility] [place] [facility] [address] [place] [address] Provider, MD Cesario [address] [place] [address] Social History Tobacco Use Types Packs/Day [...] st Contact Info) Description 09/01/2025 Procedure Pass [address] [address] 09/10/2025 9:00 AM EST Office Visit [facility] G[facility] [address] [place] [address] Unknown, Unknown, Shreyas Limon MD [address] [place] [address] 09/21/2025 2:30 PM EST Office Visit [facility] [address] [place] [address] Lester Hicks MD [address] [place] [address] 10/07/2025 7:15 AM EST Appointment [facility] [address] [place] [address] Lester Hicks MD [address] [place] [address] 10/13/2025 9:20 AM EST Office Visit [facility]in[facility] [address] [place] [address] Doretha Glynn MD [address] [place] [address] [email or web address] 10/15/2025 7:40 AM EST Appointment [address] [address] Devorah Beck PA-C [address] [place] [address] [email or web address] 12/22/2025 8:30 AM EDT Office Visit [address] [place] [address] Johann Hanson CNP [address] [place] [address], [address] [place] [address] [email or web address] 06/30/2026 8:00 AM EDT Office Visit [address] [place] [address] Johann Hanson CNP [address] [place] [address], [address] [place] [address] [email or web address] documented as of this encounter [...] documented as of this encounter Care Teams Quality Compliance Manager Relationship Specialty Start Date End Date Johann Hanson CNP [address] [place] [address], [address] [place] [address] PCP - General Family Medicine 02/11/21 Lester Hicks MD [address] [place] [address] [email or web address] Historical LMR Provider 07/28/17 Margaux Montanez MD [address] [place] [address], [address] [place] [address] Historical LMR Provider 07/28/17 Khang Kilgore MD [facility], [address] [place] [address] Insurance Assigned Provider 01/12/24 Shreyas Wilson MD [address] [place] [address] Gastroenterology 06/17/24 Doretha Glynn MD [address] [place] [address] Endocrinology 06/17/24 Radha Pereira, RN [address] [place] [address] PHCM Water Quality AssistantNocturnist 06/11/25 Jv Liz [address] [place] [address] Silver Service Waiter 08/12/25 08/12/25 documented as of this encounter Additional Source Comments The information contained in this document represents components of the legal health record. It is not the complete legal health record.[facility]
--- OUTSIDE RECORDS SUMMARY | 2025-09-09 07:24 | XMS_ITS | Encounter Summary ---
Author Organization [facility] Address [address] [place] [address] [place] [address] Phone Care Team Providers Care Mold Washer Name Role Phone Lester Hicks MD Unavailable [phone] Margaux Montanez MD Unavailable Johann Hanson CNP Primary Care Provider [phone] Khang Kilgore MD Unavailable Shreyas Wilson MD Unavailable Doretha Glynn MD Unavailable [phone] Radha Pereira RN Unavailable Reason for Referral * MRI/CAT Scan - Authorized Specialty Diagnoses / Procedures Referred By Tripp t Referred To Contact Radiology Diagnoses Abnormal ultrasound Procedures MRI Cholangiopancreatography (MRCP) Devorah Beck PA-C [address] [place] [address] Phone: tel: fax: [email or web address] Referral ID Status Reason Start Date Expiration Date V isits Requested Visits Authorized [id number] Authorized 09/01/2025 09/01/2026 1 1 Encounter Details Date Type Department Care Team (Late st Contact Info) Description 09/01/2025 Orders Only [facility] [place] [facility] [address] [place] [address] Devorah Beck PA-C [facility] [place] [address] Abnormal ultrasound (Primary Dx) Social History Tobacco Use Types [...] st Contact Info) Description 09/01/2025 Procedure Pass [facility] - [address] [address] 09/10/2025 9:00 AM EST Office Visit [facility] Gastro[facility]ology Clinic [address] [place] [address] Unknown, Unknown, Shreyas Limon MD [address] [place] [address] 09/21/2025 2:30 PM EST Office Visit [facility] [address] [place] [address] [place] [address] Lester Hicks MD [address] [place] [address] 10/07/2025 7:15 AM EST Appointment [facility] [address] [place] [address] Lester Hicks MD [address] [place] [address] 10/13/2025 9:20 AM EST Office Visit [facility] [address] [place] [address] Doretha Glynn MD [address] [place] [address] [email or web address] 10/15/2025 7:40 AM EST Appointment [facility] - [address] [address] Devorah Beck PA-C [address] [place] [address] [email or web address] 12/22/2025 8:30 AM EDT Office Visit [address] [place] [address] Johann Hanson, NURSE TECH [address] [place] [address], [address] [place] [address] [email or web address] 06/30/2026 8:00 AM EDT Office Visit [address] [place] [address] Johann Hanson, NURSE TECH [address] [place] [address], [address] [place] [address] [email or web address] Scheduled Orders Name Type Priority Associated Diagnoses Order Schedule MRI Cholangiopancreatography (MRCP) Imaging Routine Abnormal ultrasound Expected: 09/08/2025, Expires: 12/02/2025 documented as of this encounter Procedures Procedure Name Priority Date/Time Associated Diagnosis Comments OUTSIDE IMAGING Routine 08/26/2025 1:52 PM EST documented in this encounter Results * Outside Imaging Report Only (08/26/2025 1:52 PM EST) us Devorah Beck PA-C IMG XR CHEST Final Resul t documented in this encounter Visit Diagnoses Diagnosis Abnormal ultrasound- Primary documented in this encounter Additional Health Concerns Assessment Noted Time PHQ-9 Depression Total Score: 4 10/29/19 24 1:54 PM EST PHQ-2 Depression Total Score: 0 06/23/20 12:32 PM EDT documented as of this encounter Care Teams Mold Washer Relationship Specialty Start Date End Date Johann Hanson CNP [address] [place] [address], [address] [place] [address] [email or web address] PCP - General Family Medicine 02/11/21 Lester Hicks MD [address] [place] [address] [email or web address] Historical LMR Provider 07/28/17 Margaux Montanez MD [address] [place] [address], [address] [place] [address] [email or web address] Historical LMR Provider 07/28/17 Khang Kilgore MD [address] [place] [address], [address] [place] [address] Insurance Assigned Provider 01/12/24 Shreyas Wilson MD [address] [place] [address] Gastroenterology 06/17/24 Doretha Glynn MD [address] [place] [address] [email or web address] Endocrinology 06/17/24 Radha Pereira RN [address] [place] [address] [email or web address] PHCM Sew Out OperatorLumber Straightener 06/11/25 documented as of this encounter Additional Source Comments The information contained in this document represents components of the legal health record. It is not the complete legal health record.[facility]
--- OUTSIDE RECORDS SUMMARY | 2025-09-09 07:24 | XMS_ITS | Clinical Summary ---
Author Organization [facility] Address [address] [place] [address] Care Team Providers Care Scientific Investigator Name Role Phone Unavailable Primary Care Provider [...]
--- OUTSIDE RECORDS SUMMARY | 2025-09-09 07:24 | XMS_ITS | Encounter Summary ---
Author Organization [facility] Address [address] [place] [address] [place] [address] Phone Care Team Providers Care Attorney Lawyer Name Role Phone Tricia Balderas DO Unavailable Lester Hicks MD Unavailable [phone] Margaux Montanez MD Unavailable Demario Floyd MD Unavailable Pam Benson MD Unavailable [phone] Adithya Campos HVAC/R SERVICE TECHNICIAN Unavailable Beatriz Donaldson BIG DATA DEVELOPER Unavailable Beatriz Donaldson BIG DATA DEVELOPER Primary Care Provider Mamta Whitney DO Primary Care Provider [phone] Mamta Whitney DO Primary Care Provider [phone] Johann Hanson HVAC/R SERVICE TECHNICIAN Primary Care Provider [phone] Khang Kilgore MD Unavailable Luis Ignacio DO Unavailable Flo Esteban MD Unavailable [phone] Dilan Rowland MD Unavailable [phone] Corby Prado MD Unavailable [phone] Neisha Pinto RN Unavailable [email or web address] Shreyas Wilson MD Unavailable Doretha Glynn MD Unavailable [phone] Izzy Hackett Unavailable [email or web address] Radha Pereira RN Unavailable Jv Liz Unavailable Encounter Details Date Type Department Care Team (Late st Contact Info) Description 05/20/2018 Ancillary Orders [facility] Department [address] [place] [address] Beatriz Donaldson, EARL [address] [place] [address] Lymphadenopathy; Generalized enlarged lymph nodes Social History [...] (Late Contact Info) Description 09/01/2025 Procedure Pass [facility] [address] [place] [address] 09/10/2025 9:00 AM EST Office Visit [facility] Gastroenterology Clinic [address] [place] [address] Unknown, Unknown, Shreyas Limon MD [address] [place] [address] [email or web address] 09/21/2025 2:30 PM EST Office Visit [facility] 10 [place] [address] Lester Hicks MD [address] [place] [address] 10/07/2025 7:15 AM EST Appointment [facility] [address] [place] [address] Lester Hicks MD [address] [place] [address] 10/13/2025 9:20 AM EST Office Visit [facility] [address] [place] [address] Doretha Glynn MD [address] [place] [address] [email or web address] 10/15/2025 7:40 AM EST Appointment [facility] [address] [place] [address] Devorah Beck PA-C [address] [place] [address] [email or web address] 12/22/2025 8:30 AM EDT Office Visit [address] [place] [address] Johann Hanson, HVAC/R SERVICE TECHNICIAN [address] [place] [address], [address] [place] [address] [email or web address] 06/30/2026 8:00 AM EDT Office Visit [address] [place] [address] Johann Hanson, HVAC/R SERVICE TECHNICIAN [address] [place] [address], [address] [place] [address] [email or web address] documented as of this encounter Visit [...] documented as of this encounter Care Teams Attorney Lawyer Relationship Specialty Start Date End Date Beatriz Doanldson BIG DATA DEVELOPER [address] [place] [address] PCP - General Family Medicine 10/04/17 04/11/20 Mamta Whitney DO [address] [place] [address] [email or web address] PCP - General Family Medicine 04/12/20 02/08/21 Mamta Whitney DO [address] [place] [address] [email or web address] PCP - General Family Medicine 02/10/21 02/10/21 Johann Hanson CNP [facility], [address] [place] [address] [email or web address] PCP - General Family Medicine 02/11/21 Tricia Balderas DO [address] [place] [address] [email or web address] Historical LMR Provider 07/28/17 10/15/21 Lester Hicks MD [address] [place] [address] [email or web address] Historical LMR Provider 07/28/17 Margaux Montanez MD [address] [place] [address], [address] [place] [address] [email or web address] Historical LMR Provider 07/28/17 Demario Floyd MD [address] [place] [address] [email or web address] Historical LMR Provider 07/28/17 10/15/21 Pam Benson MD [address] [place] [address] [email or web address] Historical LMR Provider 07/28/17 10/15/21 Adithya Campos, HVAC/R SERVICE TECHNICIAN [address] [place] [address] [email or web address] Historical LMR Provider 07/28/17 12/25/21 Beatriz Donaldson, BIG DATA DEVELOPER [address] [place] [address] Historical LMR Provider 07/28/17 04/11/20 Khang Kilgore MD [address] [place] [address], [address] [place] [address] [email or web address] Insurance Assigned Provider 01/12/24 Luis Ignacio DO [address] [place] [address], [address] [place] [address] Cardiology 06/28/22 06/16/24 Flo Esteban MD [address] [place] [address] [place] [address] [email or web address] [email or web address] Surgery 06/28/22 06/16/24 Dilan Rowland MD [address] [place] [address], [address] [place] [address] Insurance Assigned Provider 07/15/22 08/13/22 Corby Prado MD [address] [place] [address], [address] [place] [address] Insurance Assigned Provider 08/13/22 09/16/22 Neisha Pinto RN [address] [place] [address], [address] [place] [address] [email or web address] PHCM Lithographer Apprentice 02/26/23 06/10/25 Shreyas Wilson MD [address] [place] [address] Gastroenterology 06/17/24 Doretha Glynn MD [address] [place] [address] [address] [place] [address] Endocrinology 06/17/24 Izzy Hackett [address] [place] [address] [email or web address] PHCM Community Spaghetti Machine Operator 09/11/24 09/11/24 Radha Pereira, RN [address] [place] [address] [email or web address] PHC Lithographer ApprenticeAp Processor 06/11/25 Jv Liz [address] [place] [address] [email or web address] Stull Hewer 08/12/25 08/12/25 documented as of this encounter Additional Source Comments The information contained in this document represents components of the legal health record. It is not the complete legal health record.[facility]
--- OUTSIDE RECORDS SUMMARY | 2025-09-09 07:24 | XMS_ITS | Encounter Summary ---
Author Organization [facility] Address [address] [place] [address] Phone Care Team Providers Care Rn Home Care Name Role Phone Lester Hicks MD Unavailable Margaux Montanez MD Unavailable Johann Hanson CNP Primary Care Provider [phone] Khang Kilgore MD Unavailable Luis Ignacio DO Unavailable Flo Esteban MD Unavailable [phone] Neisha Pinto RN Unavailable [email or web address] Shreyas Wilson MD Unavailable Doretha Glynn MD Unavailable [phone] Izzy Hackett Unavailable [email or web address] Radha Pereira RN Unavailable [phone] Jv Liz Unavailable Encounter Details Date Type Department Care Team (Late st Contact Info) Description 12/11/2022 Procedure Pass [facility] [address] [place], [place] [id number] Social History Tobacco Use Types Packs/Day Years [...] st Contact Info) Description 09/01/2025 Procedure Pass [facility], [facility] - [address] [address] 09/10/2025 9:00 AM EST Office Visit [facility] Gastroenterology Clinic [address] [place] [address] Unknown, Unknown, Shreyas Limon MD [address] [place] [address] 09/21/2025 2:30 PM EST Office Visit [facility] Critical [facility] [address] [place] [address] [place] [address] Lester Hicks MD [address] [place] [address] 10/07/2025 7:15 AM EST Appointment [facility] [address] [place] [address] Lester Hicks MD [address] [place] [address] 10/13/2025 9:20 AM EST Office Visit [facility] [address] [place] [address] Doretha Glynn MD [address] [place] [address] [email or web address] 10/15/2025 7:40 AM EST Appointment [address] [address] Devorah Beck PA-C [address] [place] [address] [email or web address] 12/22/2025 8:30 AM EDT Office Visit [address] [place] [address] Johann Hanson, TIFFANIE [facility], [address] [place] [address] [email or web address] 06/30/2026 8:00 AM EDT Office Visit [address] [place] [address] Johann Hanson, ADVISOR CONSULTANT [facility], [address] [place] [address] [email or web address] documented as of this encounter Visit Diagnoses Not on filedocumented in this encounter Additional Health Concerns Infection Onset Date Last Indicated Resolved Time COVID-19 10/07/2023 10/07/2023 10/28/2023 1:21 AM EST Assessment Noted Time PHQ-2 Depression Total Score: 0 05/15/20 1:45 PM EDT documented as of this encounter Care Teams Rn Home Care Relationship Specialty Start Date End Date Johann Hanson CNP [facility], [address] [place] [address] PCP - General Family Medicine 02/11/21 Lester Hicks MD [address] [place] [address] Historical LMR Provider 07/28/17 Margaux Montanez MD [address] [place] [address], [address] [place] [address] [email or web address] Historical LMR Provider 07/28/17 Khang Kilgore MD [address] [place] [address], [address] [place] [address] Insurance Assigned Provider 01/12/24 Luis Ignacio DO [address] [place] [address], [address] [place] [address] Cardiology 06/28/22 06/16/24 Flo Esteban MD [address] [place] [address] [email or web address] Cardiothoracic Surgery 06/28/22 06/16/24 eNisha Pinto RN [address] [place] [address] [email or web address] PHCM Administrative Receptionist 02/26/23 06/10/25 Shreyas Wilson MD [address] [place] [address] Gastroenterology 06/17/24 Doretha Glynn MD [address] [place] [address] Endocrinology 06/17/24 Izzy Hackett [address] [place] [address] [email or web address] PHCM Community Steel Pan Form Placing Supervisor 09/11/24 09/11/24 Radha Pereira RN [address] [place] [address] PHCM Administrative ReceptionistEvents Traffic Controller 06/11/25 Jv Liz [address] [place] [address] Assistant Director Of Public Works 08/12/25 08/12/25 documented as of this encounter Additional Source Comments The information contained in this document represents components of the legal health record. It is not the complete legal health record.[facility]
--- OUTSIDE RECORDS SUMMARY | 2025-09-09 07:24 | XMS_ITS | Encounter Summary ---
Author Organization [facility] Address [address] [place] [address] Phone Care Team Providers Care Exercise Planner Name Role Phone Lester Hicks MD Unavailable [phone] Margaux Montanez MD Unavailable [phone] Johann Hanson CNP Primary Care Provider [phone] Khang Kilgore MD Unavailable [phone] Luis Ignacio DO Unavailable [phone] Flo Esteban MD Unavailable [phone] Neisha Pinto RN Unavailable [email or web address] Shreyas Wilson MD Unavailable Doretha Glynn MD Unavailable [phone] Izzy Hackett Unavailable [email or web address] Radha Pereira RN Unavailable [phone] Jv Liz Unavailable Encounter Details Date Type Department Care Team (Late st Contact Info) Description 12/08/2022 Procedure Pass [facility] 30 [place], [place] [id number] Social History Tobacco Use Types Packs/Day Years [...] high school, GED, job training, learning the Ivorian language, technical skills, or developing parenting skills)? [...] st Contact Info) Description 09/01/2025 Procedure Pass [facility], [facility] - [address] [address] 09/10/2025 9:00 AM EST Office Visit [facility] [address] [place] [address] Unknown, Unknown, Shreyas Limon MD [address] [place] [address] 09/21/2025 2:30 PM EST Office Visit [facility] Pulmonary, Allergy and Critical Care Medicine [address] [place] [address] [place] [address] Lester Hicks MD [address] [place] [address] 10/07/2025 7:15 AM EST Appointment [facility] [address] [place] [address] Lester Hicks MD [address] [place] [address] 10/13/2025 9:20 AM EST Office Visit [facility] Endocrinology [address] [place] [address] Doretha Glynn MD [address] [place] [address] [email or web address] 10/15/2025 7:40 AM EST Appointment [address] [address] Devorah Beck PA-C [address] [place] [address] [email or web address] 12/22/2025 8:30 AM EDT Office Visit [address] [place] [address] Johann Hanson, TIFFANIE [address] [facility], [address] [place] [address] [email or web address] 06/30/2026 8:00 AM EDT Office Visit [address] [place] [address] Johann Hanson, MAKE UP ARRANGER [address] [facility], [address] [place] [address] [email or web address] documented as of this encounter Visit Diagnoses Not on filedocumented in this encounter Additional Health Concerns Infection Onset Date Last Indicated Resolved Time COVID-19 10/07/2023 10/07/2023 10/28/2023 1:21 AM EST Assessment Noted Time PHQ-2 Depression Total Score: 0 05/15/20 1:45 PM EDT documented as of this encounter Care Teams Exercise Planner Relationship Specialty Start Date End Date Johann Hanson CNP [address] [facility], [address] [place] [address] PCP - General Family Medicine 02/11/21 Lester Hicks MD [address] [place] [address] Historical LMR Provider 07/28/17 Margaux Montanez MD [address] [place] [address], [address] [place] [address] [email or web address] Historical LMR Provider 07/28/17 Khang Kilgore MD [address] [place] [address], [address] [place] [address] Insurance Assigned Provider 01/12/24 Luis Ignacio DO [address] [place] [address], [address] [place] [address] Cardiology 06/28/22 06/16/24 Flo Esteban MD [address] [place] [address] [email or web address] Cardiothoracic Surgery 06/28/22 06/16/24 Neisha Pinto RN [address] [place] [address] [email or web address] PHCM Poultry Veterinarian 02/26/23 06/10/25 Shreyas Wilson MD [address] [place] [address] Gastroenterology 06/17/24 Doretha Glynn MD [address] [place] [address] Endocrinology 06/17/24 Izzy Hackett 10 [place] [address] [email or web address] PHCM [employer] Planner 09/11/24 09/11/24 Radha Pereira RN [address] [place] [address] PHCM Poultry VeterinarianCalculus Professor 06/11/25 Jv Liz [address] [place] [address] Product Manager 08/12/25 08/12/25 documented as of this encounter Additional Source Comments The information contained in this document represents components of the legal health record. It is not the complete legal health record.[facility]
--- OUTSIDE RECORDS SUMMARY | 2025-09-09 07:24 | XMS_ITS | Encounter Summary ---
Author Organization [facility] Address [address] [place] [address] [place] [address] Phone Care Team Providers Care Application Development Intern Name Role Phone Tricia Balderas DO Unavailable Lester Hicks MD Unavailable [phone] Margaux Montanez MD Unavailable Demario Floyd MD Unavailable Pam Benson MD Unavailable Adithya Campos FABRICATOR FOAM RUBBER Unavailable Mamta Whitney DO Primary Care Provider [phone] Mamta Whitney DO Primary Care Provider [phone] Johann Hanson FABRICATOR FOAM RUBBER Primary Care Provider [phone] Khang Kilgore MD Unavailable Luis Ignacio DO Unavailable Flo Esteban MD Unavailable [phone] Dilan Rowland MD Unavailable [phone] Corby Prado MD Unavailable [phone] Neisha Pinto RN Unavailable [email or web address] Shreyas Wilson MD Unavailable Doretha Glynn MD Unavailable [phone] Izzy Hackett Unavailable [email or web address] Radha Pereira RN Unavailable Jv Liz Unavailable Encounter Details Date Type Department Care Team (Latest Contact Info) Description 04/14/2020 Transcribe Orders [facility] 10 [facility] 2nd [place] [address] Alise Winkler PA-C [address] [facility], [address] [place] [address] [email or web address] Fatigue, unspecified type (Primary Dx); Diarrhea, unspecified [...] st Contact Info) Description 09/01/2025 Procedure Pass [facility], [facility] - [address] [address] 09/10/2025 9:00 AM EST Office Visit [facility] 10 [place] [address] Unknown, Unknown, Shreyas Limon MD [address] [address] 09/21/2025 2:30 PM EST Office Visit [facility] Pulmonary, Allergy and Critical Care Medicine 10 [facility] [place] [address] Lester Hicks MD [address] [place] [address] 10/07/2025 7:15 AM EST Appointment [facility] PFT Lab [address] [place] [address] Lester Hicks MD [address] [place] [address] 10/13/2025 9:20 AM EST Office Visit [facility] [address] [place] [address] Doretha Glynn MD [address] [place] [address] [email or web address] 10/15/2025 7:40 AM EST Appointment [facility] - [address] [address] Devorah Beck PA-C [address] [place] [address] [email or web address] 12/22/2025 8:30 AM EDT Office Visit [address] [place] [address] Johann Hanson, FABRICATOR FOAM RUBBER [address] [place] [address], [address] [place] [address] [email or web address] 06/30/2026 8:00 AM EDT Office Visit [address] [place] [address] Johann Hanson, FABRICATOR FOAM RUBBER [address] [place] [address], [address] [place] [address] [email or web address] documented as of this encounter Results * Giardia antigen screen (04/15/2020 4:18 PM EDT) Pathologist [facility] ST GIARDIA ANTIGEN Negative Negative [facility] DPT OF LAB MED AND PAT+ Comment: (NOTE) ADDITIONAL INFORMATION Test Performed by Enzyme Immunoassay. Stool (Stool) 04/15/2020 4:1 8 PM EDT 04/15/2020 4:24 PM EDT Alise Winkler PA-C LAB BODY FLUIDS AND STOOL ORDER AZUL Final Result Performing Organization Address City/[facility]/ZIP Co de Phone Number [facility] DPT OF LAB MED AND PAT+ [address] [place] [address] * Ova and parasites, stool (04/15/2020 8:00 AM EDT) [facility] Special Requests None 04/15/2020 4:19 PM EDT [facility] DIRECT EXAM NO PARASITES FOUND BY DIRECT OR CONCENTRATION METHODS 04/26/2020 10:47 AM EDT [facility] DIRECT EXAM No parasites found by Trichrome Stain 04/26/2020 10:47 AM EDT [facility] Stool (Stool) 04/15/2020 8:0 0 AM EDT 04/15/2020 4:24 PM EDT Alise Winkler PA-C LAB BODY FLUIDS AND STOOL ORDER AZUL Final Result [facility] 30 [place] [address] * Fecal immunochemical test x1 (FIT) (04/15/2020 8:00 AM EDT) [facility] Immuno Fecal Occult Negative [facility] Stool (Stool) 04/15/2020 8:0 0 AM EDT 04/15/2020 4:23 PM EDT Alise Winkler PA-C LAB BODY FLUIDS AND STOOL ORDER AZUL Final Result Performing Organization Address [facility] de Phone Number [address] [address] * Fecal leukocyte examination (04/15/2020 8:00 AM EDT) Special Requests None 04/15/2020 4:19 PM EDT [facility] GRAM STAIN No WBC seen on smear. 04/16/2020 8:47 AM EDT [facility] Stool (Stool) 04/15/2020 8:0 0 AM EDT 04/15/2020 4:24 PM EDT us Alise Winkler PA-C LAB BODY FLUIDS AND STOOL ORDER AZUL Final Result Performing Organization Address [facility] de Phone Number [address] [address] * Stool culture (04/15/2020 8:00 AM EDT) Special Requests None 04/15/2020 4:19 PM EDT [facility] Stool Culture NO SALMONELLA, SHIGELLA OR CAMPYLOBACTER ISOLATED 04/16/2020 8:09 AM EDT [facility] Stool (Stool) 04/15/2020 8:0 0 AM EDT 04/15/2020 4:24 PM EDT us Alise Winkler PA-C LAB MICROBIOLOGY CULTURE ORDERA BLES Final Result Performing Organization Address [facility] Co de Phone Number [address] [address] * Immunoglobulin A (04/14/2020 12:05 PM EDT) IgA 84 70 - 400 mg/dL [facility] Blood 04/14/2020 12:0 5 PM EDT 04/14/2020 12:23 PM EDT us Alise Winkler PA-C LAB BLOOD BKR ORDERABLES Final Result Performing Organization Address [facility] Co de Phone Number [facility] [address] [place] [address] * Tissue transglutaminase IgA (04/14/2020 12:05 PM EDT) TTG IGA ANTIBODY <1.2 <4.0 (Negative) U/mL [facility] Blood 04/14/2020 12:0 5 PM EDT 04/14/2020 12:22 PM EDT us Alise Winkler PA-C LAB BLOOD BKR ORDERABLES Final Result [facility] [address] [place] [address] documented in this encounter Visit Diagnoses Diagnosis [...] documented as of this encounter Care Teams Application Development Intern Relationship Specialty Start Date End Date Mamta Whitney DO [address] [place] [address] [email or web address] PCP - General Family Medicine 04/12/20 02/08/21 Mamta Whitney DO [address] [place] [address] [email or web address] PCP - General Family Medicine 02/10/21 02/10/21 Johann Hanson, TIFFANIE [address] [place] [address], [address] [place] [address] [email or web address] PCP - General Family Medicine 02/11/21 Tricia Balderas DO 30 [place] [address] [email or web address] Historical LMR Provider 07/28/17 10/15/21 Lester Hicks MD [address] [place] [address] [email or web address] Historical LMR Provider 07/28/17 Margaux Montanez MD [address] [place] [address], [address] [place] [address] [email or web address] Historical LMR Provider 07/28/17 Demario Floyd MD [address] [place] [address] [email or web address] Historical LMR Provider 07/28/17 2 Pam Benson MD [address] [place] [address] [email or web address] Historical LMR Provider 07/28/17 Adithya Campos, FABRICATOR FOAM RUBBER [address] [place] [address] [email or web address] Historical LMR Provider 07/28/17 12/25/21 Khang Kilgore MD [address] [place] [address], [address] [place] [address] [email or web address] Insurance Assigned Provider 01/12/24 Luis Ignacio DO [address] [place] [address], [address] [place] [address] Cardiology 06/28/22 06/16/24 Flo Esteban MD [address] [place] [address] [email or web address] Cardiothoracic Surgery 06/28/22 06/16/24 Dilan Rowland MD [address] [place] [address], [address] [place] [address] Insurance Assigned Provider 07/15/22 08/13/22 Corby Prado MD [address] [place] [address], [address] [place] [address] [email or web address] Insurance Assigned Provider 08/13/22 09/16/22 Neisha Pinto RN [address] [place] [address], [address] [place] [address] [email or web address] Information [email or web address] Director 02/26/23 06/10/25 Shreyas Wilson MD [address] [place] [address] Gastroenterology 06/17/24 Doretha Glynn MD [address] [place] [address] 3rd [place] [address] Endocrinology 06/17/24 Izzy Hackett 10 [place] [address] [email or web address] PHCM Community Relay Assembler 09/11/24 09/11/24 Radha Pereira, RN [address] [place] [address] PHCM Information Security DirectorSewing Machine Tester 06/11/25 Jv Liz [address] [place] [address] [email or web address] Unclaimed Property Officer 08/12/25 08/12/25 documented as of this encounter Additional Source Comments The information contained in this document represents components of the legal health record. It is not the complete legal health record.[facility]
--- OUTSIDE RECORDS SUMMARY | 2025-09-09 07:24 | XMS_ITS | Encounter Summary ---
Author Organization [facility] Address [address] [address] Phone Care Team Providers Care Pattern Keeper Name Role Phone Lester Hicks MD Unavailable [phone] Margaux Montanez MD Unavailable [phone] Johann Hanson CNP Primary Care Provider [phone] Khang Kilgore MD Unavailable [phone] Shreyas Wilson MD Unavailable [phone] Doretha Glynn MD Unavailable [phone] Radha Pereira RN Unavailable [phone] Reason for Visit * Reason Onset Date Comments Results 09/01/2025 Encounter Details Date Type Department Care Team (Late st Contact Info) Description 09/01/2025 Telephone [facility] Medicine [address] [place] [address] [phone] Karuna Carpio, RN [address] [place], [place] [phone] [email or web address] Results Social History Tobacco Use Types Packs/Day [...] a detailed message. Faxed lab order to [facility] lab at F: [phone] through [employer] Message Received: Yesterday Johann Hanson, EMBEDDED ENGINEER P [facility] Leanne These are pre-operative labs. K was slightly low at 3.1, CO2 31. I'd like her to repeat that this week. BMP ordered. Please fax to [facility]. documented in this encounter Plan of Treatment Upcoming Encounters Date Type Department Care Team (Late st Contact Info) Description 09/01/2025 Procedure Pass [facility], [address] [address] 09/10/2025 9:00 AM EST Office Visit [facility] Gastroenterology Clinic [address] [place] [address] Unknown, Unknown, Shreyas Limon MD [address] [place] [address] 09/21/2025 2:30 PM EST Office Visit [facility] Pulmonary, Allergy and Critical Care Medicine [address] [place] [address] A [address] Lester Hicks MD [address] [place] [address] 10/07/2025 7:15 AM EST Appointment [facility] 30 [place] [address] Lester Hicks MD [address] [place] [address] 10/13/2025 9:20 AM EST Office Visit [facility] [address] [place] [address] [place] [address] Doretha Glynn MD [address] [place] [address] [email or web address] 10/15/2025 7:40 AM EST Appointment [facility], Former[facility] 30 [place] [address] Devorah Beck PA-C [address] [place] [address] [email or web address] 12/22/2025 8:30 AM EDT Office Visit [address] [place] [address] Johann Hanson, EMBEDDED ENGINEER [address] [place] [address], [address] [place] [address] [email or web address] 06/30/2026 8:00 AM EDT Office Visit [address] [place] [address] Johann Hanson, EMBEDDED ENGINEER [address] [place] [address], [address] [address] [email or web address] documented as of this encounter Visit Diagnoses Not on filedocumented in this encounter Additional Health Concerns Assessment Noted Time PHQ-9 Depression Total Score: 4 10/29/19 24 1:54 PM EST PHQ-2 Depression Total Score: 0 06/23/20 25 12:32 PM EDT documented as of this encounter Care Teams Pattern Keeper Relationship Specialty Start Date End Date CarmenJohann evans CNP [address] [place] [address], [address] [place] [address] [email or web address] PCP - General Family Medicine 02/11/21 Lester Hicks MD [address] [place] [address] Historical LMR Provider 07/28/17 Margaux Montanez MD [address] [place] [address], [address] [place] [address] [email or web address] Historical LMR Provider 07/28/17 Khang Kilgore MD [address] [place] [address], [address] [place] [address] [email or web address] Insurance Assigned Provider 01/12/24 Shreyas Wilson MD [address] [place] [address] Gastroenterology 06/17/24 Doretha Glynn MD [address] [place] [address] [email or web address] Endocrinology 06/17/24 Radha Pereira RN [address] [place] [address] [email or web address] PHCM Health Center AssistantFriction Welding Machine Operator 06/11/25 documented as of this encounter Additional Source Comments The information contained in this document represents components of the legal health record. It is not the complete legal health record.[facility]
--- OUTSIDE RECORDS SUMMARY | 2025-09-09 07:24 | XMS_ITS | Encounter Summary ---
Author Organization [facility] Address [address] [place] [address] Phone Care Team Providers Care Power Lineman Name Role Phone Lester Hicks MD Unavailable [phone] Margaux Montanez MD Unavailable [phone] Johann Hanson CNP Primary Care Provider [phone] Khang Kilgore MD Unavailable Luis Ignacio DO Unavailable [phone] Flo Esteban MD Unavailable [phone] Neisha Pinto RN Unavailable [email or web address] Shreyas Wilson MD Unavailable [phone] Doretha Glynn MD Unavailable [phone] Izzy Hackett Unavailable [email or web address] Radha Pereira RN Unavailable [phone] Jv Liz Unavailable Encounter Details Date Type Department Care Team (Late st Contact Info) Description 12/22/2022 Procedure Pass [facility], [address] [id number] Social History Tobacco Use Types Packs/Day Years [...] high school, GED, job training, learning the Prydein[place] language, technical skills, or developing parenting skills)? [...] st Contact Info) Description 09/01/2025 Procedure Pass [facility], [facility] 30 [place] [address] 09/10/2025 9:00 AM EST Office Visit [facility] [address] [place] [address] Unknown, Unknown, Shreyas Limon MD [address] [place] [address] 09/21/2025 2:30 PM EST Office Visit [facility] Allergy [facility] Critical [facility] Medicine [address] [place] [address] [place] [address] Lester Hicks MD [address] [place] [address] 10/07/2025 7:15 AM EST Appointment [facility] PFT Lab [address] [place] [address] Lester Hicks MD [address] [place] [address] 10/13/2025 9:20 AM EST Office Visit [facility] [address] [place] [address] Doretha Glynn MD [address] [place] [address] [email or web address] 10/15/2025 7:40 AM EST Appointment [address] [address] Devorah Beck PA-C [address] [place] [address] [email or web address] 12/22/2025 8:30 AM EDT Office Visit [address] [place] [address] Johann Hanson, TIFFANIE [address] [facility], [address] [place] [address] [email or web address] 06/30/2026 8:00 AM EDT Office Visit [address] [place] [address] Johann Hanson CNP 22 [facility], [address] [place] [address] [email or web address] documented as of this encounter Visit Diagnoses Not on filedocumented in this encounter Additional Health Concerns Infection Onset Date Last Indicated Resolved Time COVID-19 10/07/2023 10/07/2023 10/28/2023 1:21 AM EST Assessment Noted Time PHQ-2 Depression Total Score: 0 01/01/20 23 1:26 PM EDT documented as of this encounter Care Teams Power Lineman Relationship Specialty Start Date End Date CarmenartismarleenJohann CNP [address] [place] [address], [address] [place] [address] PCP - General Family Medicine 02/11/21 Lester Hicks MD [address] [place] [address] Historical LMR Provider 07/28/17 Margaux Montanez MD [address] [place] [address], [address] [place] [address] [email or web address] Historical LMR Provider 07/28/17 Khang Kilgore MD [address] [place] [address], [address] [place] [address] Insurance Assigned Provider 01/12/24 Luis Ignacio DO [address] [place] [address], [address] [place] [address] Cardiology 06/28/22 06/16/24 Flo Esteban MD [address] [place], [place] [address] [place] [address] [email or web address] Cardiothoracic Surgery 06/28/22 06/16/24 Neisha Pinto RN [address] [place] [address] [email or web address] PHCM Case Operator 02/26/23 06/10/25 Shreyas Wilson MD [address] [place] [address] Gastroenterology 06/17/24 Doretha Glynn MD [address] [place] [address] Endocrinology 06/17/24 Izzy Hackett 10 [place] [address] [email or web address] PHCM Community Gearman 09/11/24 09/11/24 Radha Pereira RN [address] [place] [address] PHCM Case OperatorStock Raiser 06/11/25 Jv Liz [address] [place] [address] Authors Motivational 08/12/25 08/12/25 documented as of this encounter Additional Source Comments The information contained in this document represents components of the legal health record. It is not the complete legal health record.[facility]
--- OUTSIDE RECORDS SUMMARY | 2025-09-09 07:24 | XMS_ITS | Encounter Summary ---
Author Organization [facility] Address [address] [place] [address] [place] [address] Phone Care Team Providers Care Child Abuse Worker Name Role Phone Lester Hicks MD Unavailable [phone] Margaux Montanez MD Unavailable [phone] Johann Hanson CNP Primary Care Provider [phone] Khang Kilgore MD Unavailable Luis Ignacio DO Unavailable Flo Esteban MD Unavailable [phone] Dilan Rowland MD Unavailable [phone] Corby Prado MD Unavailable [phone] Neisha Pinto RN Unavailable [email or web address] Shreyas Wilson MD Unavailable Doretha Glynn MD Unavailable Izzy Hackett Unavailable [email or web address] Radha Pereira RN Unavailable Jv Liz Unavailable Encounter Details Date Type Department Care Team (Late st Contact Info) Description 02/28/2022 Procedure Pass [facility], Ct Scan - [address] [address] Social History Tobacco Use Types Packs/Day Years [...] st Contact Info) Description 09/01/2025 Procedure Pass [facility], Mri - [address] [address] 09/10/2025 9:00 AM EST Office Visit [facility] [address] [place] [address] UnknownOdessa MD Tassoni, Joseph P, MD [address] [place] [address] 09/21/2025 2:30 PM EST Office Visit [facility] Allergy [facility] Critical [facility] Medicine [address] [place] [address] [place] [address] Lester Hicks MD [address] [place] [address] 10/07/2025 7:15 AM EST Appointment [facility] [address] [place] [address] Lester Hicks MD [address] [place] [address] 10/13/2025 9:20 AM EST Office Visit [facility] [address] [place] [address] [place] [address] Doretha Glynn MD [address] [place] [address] [email or web address] 10/15/2025 7:40 AM EST Appointment [facility], [facility] - [address] [address] Devorah Beck PA-C [address] [place] [address] [email or web address] 12/22/2025 8:30 AM EDT Office Visit [address] [place] [address] Johann Hanson, RETURNED GOODS INSPECTOR [address] [facility], [address] [place] [address] [email or web address] 06/30/2026 8:00 AM EDT Office Visit [facility] [address] [place] [address] Johann Hanson CNP [address] [facility], [address] [place] [address] [email or web address] documented as of this encounter [...] documented as of this encounter Care Teams Child Abuse Worker Relationship Specialty Start Date End Date Johann Hanson CNP [address] [place] [address], [address] [place] [address] PCP - General Family Medicine 02/11/21 Lester Hicks MD [address] [place] [address] [email or web address] Historical LMR Provider 07/28/17 Margaux Montanez MD [address] [place] [address], [address] [place] [address] [email or web address] Historical LMR Provider 07/28/17 Khang Kilgore MD [address] [place] [address], [address] [place] [address] [email or web address] Insurance Assigned Provider 01/12/24 Luis Ignacio DO [address] [place] [address], [address] [place] [address] Cardiology 06/28/22 06/16/24 Flo Esteban MD [address] [place] [address] [email or web address] Cardiothoracic Surgery 06/28/22 06/16/24 Dilan Rowland MD [address] [place] [address], [address] [place] [address] [email or web address] Insurance Assigned Provider 07/15/22 08/13/22 Corby Prado MD [address] [place] [address], [address] [place] [address] [email or web address] Insurance Assigned Provider 08/13/22 09/16/22 Neisha Pinto RN [address] [place] [address], [address] [place] [address] [email or web address] Salesperson 02/26/23 06/10/25 Shreyas Wilson MD [address] [place] [address] Gastroenterology 06/17/24 Doretha Glynn MD [address] [place] [address] 3rd [place] [address] Endocrinology 06/17/24 Izzy Hackett [address] [place] [address] [email or web address] PHCM Community Retail Helper 09/11/24 09/11/24 Radha Pereira, RANDI [address] [place] [address] PHCM Check Writer SalespersonTractor Trailer Truck Driver 06/11/25 Jv Liz [address] [place] [address] [email or web address] Fire Patrol 08/12/25 08/12/25 documented as of this encounter Additional Source Comments The information contained in this document represents components of the legal health record. It is not the complete legal health record.[facility]
--- OUTSIDE RECORDS SUMMARY | 2025-09-09 07:24 | XMS_ITS | Encounter Summary ---
Author Organization [facility] Address [address] [place] [address] Phone Care Team Providers Care Diesel Power Mechanic Name Role Phone Lester Hicks MD Unavailable [phone] Margaux Montanez MD Unavailable [phone] Johann Hanson CNP Primary Care Provider [phone] Khang Kilgore MD Unavailable Luis Ignacio DO Unavailable Flo Esteban MD Unavailable [phone] Neisha Pinto RN Unavailable [email or web address] Shreyas Wilson MD Unavailable [phone] Doretha Glynn MD Unavailable [phone] Izzy Hackett Unavailable [email or web address] Radha Pereira RN Unavailable Jv Liz Unavailable Encounter Details Date Type Department Care Team (Late st Contact Info) Description 12/08/2022 Procedure Pass [facility] [address] [place], [place] [id number] Social History Tobacco Use Types Packs/Day Years [...] st Contact Info) Description 09/01/2025 Procedure Pass [facility] - [address] [address] 09/10/2025 9:00 AM EST Office Visit [facility]ology Clinic [address] [place] [address] Unknown, Unknown, Shreyas Limon MD [address] [place] [address] 09/21/2025 2:30 PM EST Office Visit [facility], Allergy [facility] Critical [facility] Medicine [address] [place] [address] [place] [address] Lester Hicks MD [address] [place] [address] 10/07/2025 7:15 AM EST Appointment [facility] [address] [place] [address] Lester Hicks MD [address] [place] [address] 10/13/2025 9:20 AM EST Office Visit [facility] [address] [place] [address] Doretha Glynn MD [address] [place] [address] [email or web address] 10/15/2025 7:40 AM EST Appointment [address] [address] Devorah Beck PA-C [address] [place] [address] [email or web address] 12/22/2025 8:30 AM EDT Office Visit [address] [place] [address] Johann Hanson, TIFFANIE 22 [facility], [address] [place] [address] [email or web address] 06/30/2026 8:00 AM EDT Office Visit [address] [place] [address] Johann Hanson, DYNAMOMETER TUNER 22 [facility], [address] [place] [address] [email or web address] documented as of this encounter Visit Diagnoses Not on filedocumented in this encounter Additional Health Concerns Infection Onset Date Last Indicated Resolved Time COVID-19 10/07/2023 10/07/2023 10/28/2023 1:21 AM EST Assessment Noted Time PHQ-2 Depression Total Score: 0 05/15/20 1:45 PM EDT documented as of this encounter Care Teams Diesel Power Mechanic Relationship Specialty Start Date End Date Johann Hanson CNP 22 [facility], [address] [place] [address] PCP - General Family Medicine 02/11/21 Lester Hicks MD [address] [place] [address] Historical LMR Provider 07/28/17 Margaux Montanez MD [address] [place] [address], [address] [place] [address] [email or web address] Historical LMR Provider 07/28/17 Khang Kilgore MD [address] [place] [address], [address] [place] [address] Insurance Assigned Provider 01/12/24 Luis Ignacio DO [address] [place] [address], [address] [place] [address] Cardiology 06/28/22 06/16/24 Flo Esteban MD [address] [place] [address] [email or web address] .[email or web address] Cardiothoracic Surgery 06/28/22 06/16/24 Neisha Pinto RN [address] [place] [address] [email or web address] PHCM Community Development Aide 02/26/23 06/10/25 Shreyas [place] MD [address] [place] [address] Gastroenterology 06/17/24 Doretha Glynn MD [address] [place] [address] Endocrinology 06/17/24 Izzy Hackett [address] [place] [address] [email or web address] PHCM Community Him Analyst 09/11/24 09/11/24 Radha Pereira RN [address] [place] [address] PHCM Community Development AideSpindle Tester 06/11/25 Jv Liz [address] [place] [address] Pharmacist In Charge Owner 08/12/25 08/12/25 documented as of this encounter Additional Source Comments The information contained in this document represents components of the legal health record. It is not the complete legal health record.[facility]
--- OUTSIDE RECORDS SUMMARY | 2025-09-09 07:25 | XMS_ITS | Encounter Summary ---
Author Organization [facility] Address [address] [place] [address] [place] [address] Phone Care Team Providers Care Mail Delivery Supervisor Name Role Phone Lester Hicks MD Unavailable [phone] Margaux Montanez MD Unavailable [phone] Johann Hanson CNP Primary Care Provider [phone] Khang Kilgore MD Unavailable [phone] Luis Ignacio DO Unavailable Flo Esteban MD Unavailable [phone] Neisha Pinto RN Unavailable [email or web address] Shreyas Wilson MD Unavailable [phone] Doretha Glynn MD Unavailable Izzy Hackett Unavailable [email or web address] Radha Pereira RN Unavailable [phone] Jv Liz Unavailable Encounter Details Date Type Department Care Team (Latest Contact Info) Description 12/28/2023 Transcribe Orders [facility] Department 30 [place], [place] [phone] Shreyas Wilson MD [address] [place] [address] [phone] [email or web address] Dysphagia, unspecified type (Primary Dx); Nausea and [...] st Contact Info) Description 09/01/2025 Procedure Pass [address] [address] 09/10/2025 9:00 AM EST Office Visit [facility] [address] [place] [address] Unknown, Unknown, Shreyas Limon MD [address] [place] [address] 09/21/2025 2:30 PM EST Office Visit [facility] All[facility] Critical [facility] Medicine [address] [place] [address] Lester Hicks MD [address] [place] [address] 10/07/2025 7:15 AM EST Appointment [facility] [address] [place] [address] Lester Hicks MD [address] [place] [address] 10/13/2025 9:20 AM EST Office Visit [facility] [address] [place] [address] Doretha Glynn MD [address] [place] [address] [email or web address] 10/15/2025 7:40 AM EST Appointment [address] [address] Devorah Beck PA-C [address] [place] [address] 2 [place] [address] [email or web address] 12/22/2025 8:30 AM EDT Office Visit [address] [place] [address] Johann Hanson, BUSINESS STRATEGY MANAGER [address] [place] [address], [address] [place] [address] [email or web address] 06/30/2026 8:00 AM EDT Office Visit [address] [place] [address] Johann Hanson, BUSINESS STRATEGY MANAGER [address] [place] [address], [address] [place] [address] [email or web address] documented as of this encounter [...] documented as of this encounter Care Teams Mail Delivery Supervisor Relationship Specialty Start Date End Date Johann Hanson CNP [address] [place] [address], [address] [place] [address] PCP - General Family Medicine 02/11/21 Lester Hicks MD [address] [place] [address] Historical LMR Provider 07/28/17 Margaux Montanez MD [address] [place] [address], [address] [place] [address] [email or web address] Historical LMR Provider 07/28/17 Khang Kilgore MD [address] [place] [address], [address] [place] [address] Insurance Assigned Provider 01/12/24 Luis Ignacio DO [address] [place] [address], [address] [place] [address] Cardiology 06/28/22 06/16/24 Flo Esteban MD [address] [place] [address] [email or web address] Cardiothoracic Surgery 06/28/22 06/16/24 Neisha Pinto RN [address] [place] [address] [email or web address] PHCM Brick Kiln Worker 02/26/23 06/10/25 Shreyas Wilson MD [address] [place] [address] Gastroenterology 06/17/24 Doretha Glynn MD [address] [place] [address] [address] [place] [address] Endocrinology 06/17/24 Izzy Hackett [address] [place] [address] [email or web address] PHCM Community Probation Officer 09/11/24 09/11/24 Radha Pereira RN [address] [place] [address] PHCM Brick Kiln WorkerOven Tender 06/11/25 Jv Liz [address] [place] [address] Casting Machine Operator Helper 08/12/25 08/12/25 documented as of this encounter Additional Source Comments The information contained in this document represents components of the legal health record. It is not the complete legal health record.[facility]
--- OUTSIDE RECORDS SUMMARY | 2025-09-09 07:25 | XMS_ITS | Encounter Summary ---
Author Organization [facility] Address [address] [place] [address] [place] [address] Phone Care Team Providers Care Cruise Consultant Name Role Phone Lester Hicks MD Unavailable [phone] Margaux Montanez MD Unavailable [phone] Johann Hanson CNP Primary Care Provider [phone] Khang Kilgore MD Unavailable Luis Ignacio DO Unavailable [phone] Flo Esteban MD Unavailable [phone] Neisha Pinto RN Unavailable [email or web address] Shreyas Wilson MD Unavailable [phone] Doretha Glynn MD Unavailable [phone] Izzy Hackett Unavailable [email or web address] Radha Pereira RN Unavailable [phone] Jv Liz Unavailable Encounter Details Date Type Department Care Team (Latest Contact Info) Description 09/07/2023 Transcribe Orders [facility] Department 30 [place], [place] [phone] Shreyas Wilson MD [address] [place] [address] [phone] [email or web address] Gastroesophageal reflux disease, unspecified whether [...] st Contact Info) Description 09/01/2025 Procedure Pass [address] [address] 09/10/2025 9:00 AM EST Office Visit [facility] G[facility]ology [facility] [address] [place] [address] Unknown, Unknown, Shreyas Limon MD [address] [place] [address] 09/21/2025 2:30 PM EST Office Visit [facility] All[facility] Critical [facility] Medicine [address] [place] [address] Lester Hicks MD [address] [place] [address] 10/07/2025 7:15 AM EST Appointment [facility] [address] [place] [address] Lester Hicks MD [address] [place] [address] 10/13/2025 9:20 AM EST Office Visit [facility] [address] [place] [address] Doretha Glynn MD [address] [place] [address] [email or web address] 10/15/2025 7:40 AM EST Appointment [place] [address] [place] [address] Devorah Beck PA-C [address] [place] [address] [email or web address] 12/22/2025 8:30 AM EDT Office Visit [address] [place] [address] Johann Hanson CNP [address] [place] [address], [address] [place] [address] [email or web address] 06/30/2026 8:00 AM EDT Office Visit [address] [place] [address] Johann Hanson CNP [address] [place] [address], [address] [place] [address] [email or web address] documented as of this encounter [...] documented as of this encounter Care Teams Cruise Consultant Relationship Specialty Start Date End Date Johann Hanson CNP [address] [place] [address], [address] [place] [address] PCP - General Family Medicine 02/11/21 Lester Hicks MD [address] [place] [address] 2nd [place] [address] Historical LMR Provider 07/28/17 Margaux Montanez MD [address] [place] [address], [address] [place] [address] [email or web address] Historical LMR Provider 07/28/17 Khang Kilgore MD [address] [place] [address], [address] [place] [address] [email or web address] Insurance Assigned Provider 01/12/24 Luis Ignacio DO [address] [place] [address], [address] [place] [address] Cardiology 06/28/22 06/16/24 Flo Esteban MD [address] [place] [address] [email or web address] Cardiothoracic Surgery 06/28/22 06/16/24 Neisha Pinto RN [address] [place] [address] [email or web address] PHCM Family Practice Medical Doctor 02/26/23 06/10/25 Shreyas Wilson MD [address] [place] [address] Gastroenterology 06/17/24 Doretha Glynn MD [address] [place] [address] 3rd [place] [address] Endocrinology 06/17/24 Izzy Hackett [address] [place] [address] [email or web address] PHCM Community Oil Truck Driver 09/11/24 09/11/24 Radha Pereira, RN 10 [place] [address] [email or web address] PHCM Family Practice Medical DoctorReal Estate Marketing Coordinator 06/11/25 Jv Liz [address] [place] [address] [email or web address] Senior Benefits Analyst 08/12/25 08/12/25 documented as of this encounter Additional Source Comments The information contained in this document represents components of the legal health record. It is not the complete legal health record.[facility]
--- OUTSIDE RECORDS SUMMARY | 2025-09-09 07:25 | XMS_ITS | Encounter Summary ---
Author Organization [facility] Address [address] [place] [address] Phone Care Team Providers Care Granite Countertop Installer Name Role Phone Tricia Balderas DO Unavailable Lester Hicks MD Unavailable [phone] Margaux Montanez MD Unavailable Demario Floyd MD Unavailable Pam Benson MD Unavailable Adithya Campos MUSIC SUPERVISOR Unavailable Johann Hanson MUSIC SUPERVISOR Primary Care Provider [phone] Khang Kilgore MD Unavailable Luis Ignacio DO Unavailable Flo Esteban MD Unavailable [phone] Dilan Rowland MD Unavailable [phone] Corby Prado MD Unavailable [phone] Neisha Pinto RN Unavailable [email or web address] Shreyas Wilson MD Unavailable Doretha Glynn MD Unavailable [phone] Izzy Hackett Unavailable sami Radha Pereira RN Unavailable JoJv hernandez Unavailable Encounter Details Date Type Department Care Team ([facility] Contact Info) Description 02/22/2021 Procedure Pass [facility], [address] [address] Social History Tobacco Use Types Packs/Day Years [...] (Late Contact Info) Description 09/01/2025 Procedure Pass [address] [address] 09/10/2025 9:00 AM EST Office Visit [facility] Gastroenterology Clinic [address] [place] [address] Unknown, Unknown, Shreyas Limon MD [address] [place] [address] 09/21/2025 2:30 PM EST Office Visit [facility] All[facility] Critical [facility] Medicine [address] [place] [address] Lester Hicks MD [address] [place] [address] 10/07/2025 7:15 AM EST Appointment [facility] [address] [place] [address] Lester Hicks MD [address] [place] [address] 10/13/2025 9:20 AM EST Office Visit [facility] [address] [place] [address] Doretah Glynn MD [address] [place] [address] [email or web address] 10/15/2025 7:40 AM EST Appointment [address] [address] Devorah Beck PA-C [address] [place] [address] [email or web address] 12/22/2025 8:30 AM EDT Office Visit [address] [place] [address] Johann Hanson CNP 22 [facility], [address] [place] [address] [email or web address] 06/30/2026 8:00 AM EDT Office Visit [address] [place] [address] Johann Hanson CNP 22 [facility], [address] [place] [address] [email or web address] documented as of this encounter [...] documented as of this encounter Care Teams Granite Countertop Installer Relationship Specialty Start Date End Date Johann Hanson CNP 22 [facility], [address] [place] [address] PCP - General Family Medicine 02/11/21 Tricia Balderas DO 30 [place] [address] [email or web address] Historical LMR Provider 07/28/17 10/15/21 Lester Hicks MD [address] [place] [address] [email or web address] Historical LMR Provider 07/28/17 Margaux Montanez MD [address] [place] [address], [address] [place] [address] [email or web address] Historical LMR Provider 07/28/17 Demario Floyd MD [address] [place] [address] [email or web address] Historical LMR Provider 07/28/17 2 Pam Benson MD [address] [place] [address] Historical LMR Provider 07/28/17 Adithya Campos, MUSIC SUPERVISOR [address] [place] [address] Historical LMR Provider 07/28/17 12/25/21 Khang Kilgore MD [address] [place] [address], [address] [place] [address] [email or web address] Insurance Assigned Provider 01/12/24 Luis Ignacio DO [address] [place] [address], [address] [place] [address] Cardiology 06/28/22 06/16/24 Flo Esteban MD [address] [place], [place] [address] [place] [address] [email or web address] Cardiothoracic Surgery 06/28/22 06/16/24 Dilan Rowland MD [address] [place] [address], [address] [place] [address] Insurance Assigned Provider 07/15/22 08/13/22 Corby Prado MD [address] [place] [address], [address] [place] [address] Insurance Assigned Provider 08/13/22 09/16/22 Neisha Pinto RN [address] [place] [address], [address] [place] [address] [email or web address] PHCM Nutrition Services Associate 02/26/23 06/10/25 Shreyas Wilson MD [address] [place] [address] Gastroenterology 06/17/24 Doretha Glynn MD [address] [place] [address] 3rd [place] [address] Endocrinology 06/17/24 Izzy Hackett [address] [place] [address] [email or web address] PHCM Community Handbag Frames Inspector 09/11/24 09/11/24 Radha Pereira, RANDI [address] [place] [address] PHCM Nutrition Services AssociateShop Service Technician 06/11/25 Jv Liz [address] [place] [address] Foreclosure Clerk 08/12/25 08/12/25 documented as of this encounter Additional Source Comments The information contained in this document represents components of the legal health record. It is not the complete legal health record.[facility]
--- OUTSIDE RECORDS SUMMARY | 2025-09-09 07:25 | XMS_ITS | Encounter Summary ---
Author Organization [facility] Address [address] [place] [address] Phone Care Team Providers Care Family Service Worker Name Role Phone Lester Hicks MD Unavailable [phone] Margaux Montanez MD Unavailable [phone] Johann Hanson CNP Primary Care Provider [phone] Khang Kilgore MD Unavailable Luis Ignacio DO Unavailable Flo Esteban MD Unavailable [phone] Corby Prado MD Unavailable [phone] Neisha Pinto RN Unavailable [email or web address] Shreyas Wilson MD Unavailable [phone] Doretha Glynn MD Unavailable [phone] Izzy Hackett Unavailable [email or web address] Radha Pereira RN Unavailable Jv Liz Unavailable Encounter Details Date Type Department Care Team (Late st Contact Info) Description 08/15/2022 Procedure Pass [facility], [facility] - [address] [id number] Social History Tobacco Use Types Packs/Day Years [...] Procedure Pass [facility], [facility] - [address] [address] 09/10/2025 9:00 AM EST Office Visit [facility] [address] [place] [address] Unknown, Unknown, Shreyas Limon MD [address] [place] [address] 09/21/2025 2:30 PM EST Office Visit [facility] All[facility] Critical [facility] Medicine [address] [place] [address] [place] [address] Letser Hicks MD [address] [place] [address] 10/07/2025 7:15 AM EST Appointment [facility] [address] [place] [address] Lester Hicks MD [address] [place] [address] 10/13/2025 9:20 AM EST Office Visit [facility]inology [address] [place] [address] [place] [address] Doretha Glynn MD [address] [place] [address] [email or web address] 10/15/2025 7:40 AM EST Appointment [facility], [facility] - [address] [address] Devorah Beck PA-C [address] [place] [address] 2 [place] [address] [email or web address] 12/22/2025 8:30 AM EDT Office Visit [address] [place] [address] Johann Hanson, GERICARE AIDE [address] [place] [address], [address] [place] [address] [email or web address] 06/30/2026 8:00 AM EDT Office Visit [address] [place] [address] Johann Hanson CNP [address] [place] [address], [address] [place] [address] [email or web address] documented as of this encounter Visit [...] as of this encounter Care Teams Family Service Worker Relationship Specialty Start Date End Date Johann Hanson CNP [address] [place] [address], [address] [place] [address] PCP - General Family Medicine 02/11/21 Lester Hicks MD [address] [place] [address] Historical LMR Provider 07/28/17 Margaux Montanez MD [address] [place] [address], [address] [place] [address] [email or web address] Historical LMR Provider 07/28/17 Khang Kilgore MD [address] [place] [address], [address] [place] [address] Insurance Assigned Provider 01/12/24 Luis Ignacio DO [address] [place] [address], [address] [place] [address] Cardiology 06/28/22 06/16/24 Flo Esteban MD [address] [place] [address] [place] [address] [email or web address] Cardiothoracic Surgery 06/28/22 06/16/24 Corby Prado MD [address] [place] [address], [address] [place] [address] Insurance Assigned Provider 08/13/22 09/16/22 Neisha Pinto RN [address] [place] [address], [address] [place] [address] [email or web address] PHCM Retention Manager 02/26/23 06/10/25 Shreyas Wilson MD [address] [place] [address] Gastroenterology 06/17/24 Doretha Glynn MD [address] [place] [address] 3rd [place] [address] Endocrinology 06/17/24 Izzy Hackett [address] [place] [address] [email or web address] PHCM Community Arranging Funeral Director 09/11/24 09/11/24 Radha Pereira RN [address] [place] [address] [email or web address] PHCM Retention ManagerLineman Service Or Work Dispatcher 06/11/25 Jv Liz [address] [place] [address] [email or web address] Ship'S Engineer 08/12/25 08/12/25 documented as of this encounter Additional Source Comments The information contained in this document represents components of the legal health record. It is not the complete legal health record.[facility]
--- OUTSIDE RECORDS SUMMARY | 2025-09-09 07:25 | XMS_ITS | Encounter Summary ---
Author Organization [facility] Address [address] [place] [address] [place] [address] Phone Care Team Providers Care Paint Trimmer Pipe Bowls Name Role Phone Tricia Balderas DO Unavailable Lester Hicks MD Unavailable [phone] Margaux Montanez MD Unavailable Demario Floyd MD Unavailable Pam Benson MD Unavailable [phone] Adithya Campos VOCATIONAL EVALUATOR Unavailable Beatriz Donaldson RADIO PERFORMER Unavailable Beatriz Donaldson RADIO PERFORMER Primary Care Provider aMmta Whitney DO Primary Care Provider [phone] Mamta Whitney DO Primary Care Provider [phone] Johann Hanson VOCATIONAL EVALUATOR Primary Care Provider [phone] Khang Kilgore MD Unavailable Luis Ignacio DO Unavailable Flo Esteban MD Unavailable [phone] Dilan Rowland MD Unavailable [phone] Corby Prado MD Unavailable [phone] Neisha Pinto RN Unavailable [email or web address] Shreyas Wilson MD Unavailable [phone] Doretha Glynn MD Unavailable [phone] Izzy Hackett Unavailable sami Radha Pereira RN Unavailable [phone] Jv Liz Unavailable Encounter Details Date Type Department Care Team (Late st Contact Info) Description 11/12/2019 Ancillary Orders [facility] Department [address] [place] [address] Beatriz Donaldson, EARL [address] [place] [address] Breast screening Social History Tobacco Use Types [...] st Contact Info) Description 09/01/2025 Procedure Pass [facility], [facility] - [address] [address] 09/10/2025 9:00 AM EST Office Visit [facility] Gastroenterology Clinic 10 [place] [address] Unknown, Unknown, Shreyas Limon MD [address] [address] 09/21/2025 2:30 PM EST Office Visit [facility], Allergy [facility] Critical Care Medicine 10 [facility] [place] [address] Lester Hicks MD [address] [place] [address] 10/07/2025 7:15 AM EST Appointment [facility] [address] [place] [address] Lester Hicks MD [address] [place] [address] 10/13/2025 9:20 AM EST Office Visit [facility] [address] [place] [address] [place] [address] Doretha Glynn MD [address] [place] [address] [email or web address] 10/15/2025 7:40 AM EST Appointment [facility] [address] [place] [address] Devorah Beck PA-C [address] [place] [address] [email or web address] 12/22/2025 8:30 AM EDT Office Visit [address] [place] [address] Johann Hanson, VOCATIONAL EVALUATOR [address] [place] [address], [address] [place] [address] [email or web address] 06/30/2026 8:00 AM EDT Office Visit [address] [place] [address] Johann Hanson, VOCATIONAL EVALUATOR [address] [place] [address], [address] [place] [address] [email or web address] documented as of this encounter [...] documented as of this encounter Care Teams Paint Trimmer Pipe Bowls Relationship Specialty Start Date End Date Beatriz Donaldson RADIO PERFORMER [address] [place] [address] PCP - General Family Medicine 10/04/17 04/11/20 Mamta Whitney DO [address] [place] [address] [email or web address] PCP - General Family Medicine 04/12/20 02/08/21 Mamta Whitney DO [address] [place] [address] [email or web address] PCP - General Family Medicine 02/10/21 02/10/21 Johann Hanson CNP [address] [facility], [address] [place] [address] [email or web address] PCP - General Family Medicine 02/11/21 Tricia Balderas DO 30 [place] [address] [email or web address] Historical LMR Provider 07/28/17 10/15/21 Lester Hicks MD [address] [place] [address] [email or web address] Historical LMR Provider 07/28/17 Margaux Montanez MD [address] [place] [address], [address] [place] [address] [email or web address] Historical LMR Provider 07/28/17 Demario Floyd MD [address] [place] [address] [email or web address] Historical LMR Provider 07/28/17 10/15/21 Pam Benson MD [address] [place] [address] [email or web address] Historical LMR Provider 07/28/17 10/15/21 Adithya Campos, VOCATIONAL EVALUATOR [address] [place] [address] [email or web address] Historical LMR Provider 07/28/17 12/25/21 Beatriz Donaldson, RADIO PERFORMER [address] [place] [address] Historical LMR Provider 07/28/17 04/11/20 Khang Kilgore MD [address] [place] [address], [address] [place] [address] [email or web address] Insurance Assigned Provider 01/12/24 Luis Ignacio DO [address] [place] [address], [address] [place] [address] Cardiology 06/28/22 06/16/24 Flo Esteban MD [address] [place] [address] [place] [address] [email or web address] Cardiothoracic Surgery 06/28/22 06/16/24 Dilan Rowland MD [address] [place] [address], [address] [place] [address] [email or web address] Insurance Assigned Provider 07/15/22 08/13/22 Corby Prado MD [address] [place] [address], [address] [place] [address] [email or web address] Insurance Assigned Provider 08/13/22 09/16/22 Neisha Pinto RN [address] [place] [address], [address] [place] [address] [email or web address] PHCM Telephone Maintainer 02/26/23 06/10/25 Shreyas Wilson MD [address] [place] [address] Gastroenterology 06/17/24 Doretha Glynn MD [address] [place] [address] 3rd [place] [address] Endocrinology 06/17/24 Izzy Hackett [address] [place] [address] [email or web address] PHCM Community Professor Of Industrial Technology 09/11/24 09/11/24 Radha Pereira, RN 10 [place] [address] PHCM Telephone MaintainerSprinkler Truck Driver 06/11/25 Jv Liz [address] [place] [address] [email or web address] Permit Technician 08/12/25 08/12/25 documented as of this encounter Additional Source Comments The information contained in this document represents components of the legal health record. It is not the complete legal health record.[facility]
--- OUTSIDE RECORDS SUMMARY | 2025-09-09 07:25 | XMS_ITS | Encounter Summary ---
Author Organization [facility] Address [address] [place] [address] [place] [address] Phone Care Team Providers Care Cosmetic Maker Name Role Phone Lester Hicks MD Unavailable [phone] Margaux Montanez MD Unavailable [phone] Johann Hanson CNP Primary Care Provider [phone] Khang Kilgore MD Unavailable Luis Ignacio DO Unavailable Flo Esteban MD Unavailable [phone] Dilan Rowland MD Unavailable [phone] Corby Prado MD Unavailable [phone] Neisha Pinto RN Unavailable [email or web address] Shreyas Wilson MD Unavailable Doretha Glynn MD Unavailable [phone] Izzy Hackett Unavailable [email or web address] Radha Pereira RN Unavailable Jv Liz Unavailable Encounter Details Date Type Department Care Team (Late st Contact Info) Description 02/10/2022 Procedure Pass [facility] [place] [address] Social History Tobacco Use Types Packs/Day Years [...] high school, GED, job training, learning the Wallis[place] language, technical skills, or developing parenting skills)? [...] st Contact Info) Description 09/01/2025 Procedure Pass [facility], [facility] - [facility] [address] [place] [address] 09/10/2025 9:00 AM EST Office Visit [facility] Gastroenterology Clinic 10 [place] [address] Unknown, Unknown, Shreyas Limon MD [address] [place] [address] 09/21/2025 2:30 PM EST Office Visit [facility] Allergy [facility] Critical Care Medicine [address] [place] [address] [place] [address] Lester Hicks MD [address] [place] [address] 10/07/2025 7:15 AM EST Appointment [facility] [address] [place] [address] Lester Hicks MD [address] [place] [address] 10/13/2025 9:20 AM EST Office Visit [facility] [address] [place] [address] [place] [address] Doretha Glynn MD [address] [place] [address] [email or web address] 10/15/2025 7:40 AM EST Appointment [facility] - [address] [address] Devorah Beck PA-C [address] [place] [address] [email or web address] 12/22/2025 8:30 AM EDT Office Visit [address] [place] [address] Johann Hanson, ANGER CONTROL COUNSELOR [address] [facility], [address] [place] [address] [email or web address] 06/30/2026 8:00 AM EDT Office Visit [facility] Medicine [address] [place] [address] Johann Hanson CNP [address] [facility], [address] [place] [address] [email or web address] documented as of this encounter [...] documented as of this encounter Care Teams Cosmetic Maker Relationship Specialty Start Date End Date Johann Hanson CNP [address] [facility], [address] [place] [address] [email or web address] PCP - General Family Medicine 02/11/21 Lester Hicks MD [address] [place] [address] [email or web address] Historical LMR Provider 07/28/17 Margaux Montanez MD [address] [place] [address], [address] [place] [address] [email or web address] Historical LMR Provider 07/28/17 Khang Kilgore MD [address] [place] [address], [address] [place] [address] [email or web address] Insurance Assigned Provider 01/12/24 Luis Ignacio DO [address] [place] [address], [address] [place] [address] Cardiology 06/28/22 06/16/24 Flo Esteban MD [address] [place] [address] [email or web address] Cardiothoracic Surgery 06/28/22 06/16/24 Dilan Rowland MD [address] [place] [address], [address] [place] [address] Insurance Assigned Provider 07/15/22 08/13/22 Corby Prado MD [address] [place] [address], [address] [place] [address] Insurance Assigned Provider 08/13/22 09/16/22 Neisha Pinto RN [address] [place] [address], [address] [place] [address] [email or web address] Answering Service Operator 02/26/23 06/10/25 Shreyas Wilson MD [address] [place] [address] Gastroenterology 06/17/24 Doretha Glynn MD [address] [place] [address] 3rd [place] [address] Endocrinology 06/17/24 Izzy Hackett 10 [place] [address] [email or web address] PHCM Community Cataract Lens Generator 09/11/24 09/11/24 Radha Pereira, RN 10 [place] [address] PHCM Answering Service OperatorInduction Furnace Operator 06/11/25 Jv Liz [address] [place] [address] Bottle Assembler 08/12/25 08/12/25 documented as of this encounter Additional Source Comments The information contained in this document represents components of the legal health record. It is not the complete legal health record.[facility]
--- OUTSIDE RECORDS SUMMARY | 2025-09-09 07:25 | XMS_ITS | Encounter Summary ---
Author Organization [facility] Address [address] [place] [address] Phone Care Team Providers Care Extended Insurance Clerk Name Role Phone Lester Hicks MD Unavailable [phone] Margaux Montanez MD Unavailable [phone] Johann Hanson CNP Primary Care Provider [phone] Khang Kilgore MD Unavailable Neisha Pinto RN Unavailable [email or web address] Shreyas Wilson MD Unavailable Doretha Glynn MD Unavailable [phone] Izzy Hackett Unavailable [email or web address] Radha Pereira RN Unavailable [phone] Jv Liz Unavailable Encounter Details Date Type Department Care Team (Late st Contact Info) Description 06/17/2024 Procedure Pass [address] [address] Social History Tobacco Use Types Packs/Day Years [...] GED, job training, learning the [place] language, technical skills, or developing parenting skills)? [...] Info) Description 09/01/2025 Procedure Pass [facility], [facility] - [address] [address] 09/10/2025 9:00 AM EST Office Visit [facility] Gastroenterology Clinic [address] [place] [address] Unknown, Unknown, Shreyas Limon MD [address] [place] [address] 09/21/2025 2:30 PM EST Office Visit [facility] All[facility] Critical [facility] Medicine [address] [place] [address] Lester Hicks MD [address] [place] [address] 10/07/2025 7:15 AM EST Appointment [facility] [address] [place] [address] Lester Hicks MD [address] [place] [address] 10/13/2025 9:20 AM EST Office Visit [facility] [address] [place] [address] Doretha Glynn MD [address] [place] [address] [email or web address] 10/15/2025 7:40 AM EST Appointment [facility], [facility] - [facility] [address] [place] [address] Devorah Beck PA-C [address] [place] [address] 2 [place] [address] [email or web address] 12/22/2025 8:30 AM EDT Office Visit [address] [place] [address] Johann Hanson CNP [address] [place] [address], [address] [place] [address] [email or web address] 06/30/2026 8:00 AM EDT Office Visit [address] [place] [address] Johann Hanson CNP [address] [place] [address], [address] [place] [address] [email or web address] documented as of this encounter Visit Diagnoses Not on filedocumented in this encounter Additional Health Concerns Assessment Noted Time PHQ-9 Depression Total Score: 4 10/29/19 24 1:54 PM EST PHQ-2 Depression Total Score: 0 06/23/20 25 12:32 PM EDT documented as of this encounter Care Teams Extended Insurance Clerk Relationship Specialty Start Date End Date Johann Hanson CNP [address] [place] [address], [address] [place] [address] PCP - General Family Medicine 02/11/21 Lester Hicks MD [address] [place] [address] Historical LMR Provider 07/28/17 Margaux Montanez MD [address] [place] [address], [address] [place] [address] [email or web address] Historical LMR Provider 07/28/17 Khang Kilgore MD [address] [place] [address], [address] [place] [address] Insurance Assigned Provider 01/12/24 Neisha Pinto RN [address] [place] [address], [address] [place] [address] [email or web address] PHCM Frame Runner 02/26/23 06/10/25 hSreyas Wilson MD [address] [place] [address] Gastroenterology 06/17/24 Doretha Glynn MD [address] [place] [address] 3rd [place] [address] Endocrinology 06/17/24 Izzy Hackett [address] [place] [address] [email or web address] PHC Community Coagulating Operator 09/11/24 09/11/24 Radha Pereira, RN [address] [place] [address] PHC Frame RunnerStrip Cleaner 06/11/25 Jv Liz [address] [place] [address] Navigation Teacher 08/12/25 08/12/25 documented as of this encounter Additional Source Comments The information contained in this document represents components of the legal health record. It is not the complete legal health record.[facility]
--- OUTSIDE RECORDS SUMMARY | 2025-09-09 07:25 | XMS_ITS ---
Author Organization [facility] Address [address] [place] [address] [place] [address] Phone Care Team Providers Care Paratransit Driver Name Role Phone Lester Hicks MD Unavailable [phone] Margaux Montanez MD Unavailable Johann Hanson CNP Primary Care Provider [phone] Khang Kilgore MD Unavailable [phone] Sheryas Wilson MD Unavailable [phone] Doertha Glynn MD Unavailable [phone] Radha Pereira RN Unavailable Population Health Care Management (PHCM) Status:Enrolled (Active) Start date:10/23/2023 Enrollment date:10/23/2023 Current support & services provided:[employer] Related social drivers of health:Housing Stability, Child or Family Care, Education, Food, Unemployment, Paying for Meds, Paying Utility Bills, Transportation, Digital Access, SNAP/WIC Case Team Name Relationship Phone Email Radha Pereira RN(Responsible Staff) Registered Nurse [phone] Izzy Herbert PHCM Casting Plug Assembler [email or web address] Continued Care and Services Coordination
--- OUTSIDE RECORDS SUMMARY | 2025-09-09 07:25 | XMS_ITS | Encounter Summary ---
Author Organization [facility] Address [address] [place] [address] Phone Care Team Providers Care Medical Professionals Name Role Phone Lester Hicks MD Unavailable [phone] Margaux Montanez MD Unavailable [phone] Johann Hanson MAINTENANCE ADVISOR Primary Care Provider [phone] Khang Kilgore MD Unavailable [phone] Shreyas Wilson MD Unavailable [phone] Doretha Glynn MD Unavailable [phone] Radha Pereira RN Unavailable Jv Liz Unavailable Reason for Visit * Reason Onset Date Comments Lab sample 07/03/2025 Encounter Details Date Type Department Care Team (Late st Contact Info) Description 07/03/2025 Telephone [facility] [address] [place] [address] Johann Hanson, TIFFANIE [address] [facility] [place] [address] [email or web address] Lab sample Social [...] high school, GED, job training, learning the Norwegian language, technical skills, or developing parenting skills)? [...] EDT I put a note in for restaurant front manager not to charge a copay. * Dolores [...] when this should be done. Central Support Artist'S Model (Please do not reply to this user; this inbox is not monitored.) Thank you. documented in this encounter Plan of Treatment Upcoming Encounters Date Type Department Care Team (Late st Contact Info) Description 09/01/2025 Procedure Pass [address] [address] 09/10/2025 9:00 AM EST Office Visit [facility] Gastro[facility]ology Clinic [address] [place] [address] Unknown, [place], Shreyas Limon MD [address] [place] [address] 09/21/2025 2:30 PM EST Office Visit [facility] [address] [place] [address] Lester Hicks MD [address] [place] [address] 10/07/2025 7:15 AM EST Appointment [facility] [address] [place] [address] Lester Hicks MD [address] [place] [address] 10/13/2025 9:20 AM EST Office Visit [facility]in[facility] [address] [place] [address] Doretha Glynn MD [address] [place] [address] [email or web address] 10/15/2025 7:40 AM EST Appointment [address] [address] Devorah Beck PA-C [address] [place] [address] [email or web address] 12/22/2025 8:30 AM EDT Office Visit [address] [place] [address] Johann Hanson CNP [address] [facility] [place] [address] [email or web address] 06/30/2026 8:00 AM EDT Office Visit [facility] 22 [place] [address] Johann Hanson CNP [address] [facility] [place] [address] [email or web address] documented as of this encounter Visit Diagnoses Not on filedocumented in this encounter Additional Health Concerns Assessment Noted Time PHQ-9 Depression Total Score: 4 10/29/19 24 1:54 PM EST PHQ-2 Depression Total Score: 0 06/23/20 25 12:32 PM EDT documented as of this encounter Care Teams Medical Professionals Relationship Specialty Start Date End Date Johann Hanson CNP [address] [place] [address], [address] [place] [address] PCP - General Family Medicine 02/11/21 Lester Hicks MD [address] [place] [address] Historical LMR Provider 07/28/17 Margaux Montanez MD [address] [place] [address], [address] [place] [address] Historical LMR Provider 07/28/17 Khang Kilgore MD [address] [place] [address], [address] [place] [address] Insurance Assigned Provider 01/12/24 Shreyas Wilson MD [address] [address] Gastroenterology 06/17/24 Doretha Glynn MD [address] [place] [address] Endocrinology 06/17/24 Radha Pereira RN 10 [place] [address] PHC Director TreasurerExecutive Housekeeper 06/11/25 Jv Liz [address] [place] [address] Fiscal Agent 08/12/25 08/12/25 documented as of this encounter Additional Source Comments The information contained in this document represents components of the legal health record. It is not the complete legal health record.[facility]
--- OUTSIDE RECORDS SUMMARY | 2025-09-09 07:25 | XMS_ITS | Encounter Summary ---
Author Organization [facility] Address [address] [place] [address] Phone Care Team Providers Care Machine Specialist Name Role Phone Lester Hicks MD Unavailable [phone] Margaux Montanez MD Unavailable [phone] Johann Hanson CNP Primary Care Provider [phone] Khang Kilgore MD Unavailable Neisha Pinto RN Unavailable [email or web address] Shreyas Wilson MD Unavailable Doretha Glynn MD Unavailable [phone] Radha Pereira RN Unavailable Jv Liz Unavailable Reason for Visit * Reason Comments Medication Refill Encounter Details Date Type Department Care Team (Late st Contact Info) Description 06/05/2025 Refill [facility] Rheumatology [address] [place], [place] [id number] Margaux Montanez MD [address] [facility] [place] [address] [email or web address] Medication Refill Social History Tobacco Use Types [...] high school, GED, job training, learning the Turkmen language, technical skills, or developing parenting skills)? [...] st Contact Info) Description 09/01/2025 Procedure Pass [facility], [facility] - [address] [address] 09/10/2025 9:00 AM EST Office Visit [facility] Gastroenterology Clinic [address] [place] [address] Unknown, Unknown, Shreyas Limon MD [address] [place] [address] 09/21/2025 2:30 PM EST Office Visit [facility] [address] [place] [address] [place] [address] Lester Hicks MD [address] [place] [address] 10/07/2025 7:15 AM EST Appointment [facility] [address] [place] [address] Lester Hicks MD [address] [place] [address] 10/13/2025 9:20 AM EST Office Visit [facility] [address] [place] [address] Doretha Glynn MD [address] [place] [address] [address] [place] [address] [email or web address] 10/15/2025 7:40 AM EST Appointment [facility] [address] [place] [address] Devorah Beck PA-C [address] [place] [address] [email or web address] 12/22/2025 8:30 AM EDT Office Visit [address] [place] [address] Johann Hanson CNP [address] [place] [address], [address] [place] [address] [email or web address] 06/30/2026 8:00 AM EDT Office Visit [address] [place] [address] Johann Hanson CNP [address] [place] [address], [address] [place] [address] [email or web address] documented as of this encounter Visit Diagnoses Diagnosis Inflammatory arthritis Unspecified inflammatory polyarthropathy documented in this encounter Additional Health Concerns Assessment Noted Time PHQ-9 Depression Total Score: 4 10/29/19 1:54 PM EST PHQ-2 Depression Total Score: 0 06/10/20 9:22 AM EDT documented as of this encounter Care Teams Machine Specialist Relationship Specialty Start Date End Date Johann Hanson CNP [address] [place] [address], [address] [place] [address] [email or web address] PCP - General Family Medicine 02/11/21 Lester Hicks MD [address] [place] [address] [email or web address] Historical LMR Provider 07/28/17 Margaux Montanez MD [address] [place] [address], [address] [place] [address] [email or web address] Historical LMR Provider 07/28/17 Khang Kilgore MD [address] [place] [address], [address] [place] [address] [email or web address] Insurance Assigned Provider 01/12/24 Neisha Pinto RN [address] [place] [address], [address] [place] [address] [email or web address] PHCM Sewer And Drain Technician 02/26/23 06/10/25 Shreyas Wilson MD [address] [place] [address] [email or web address] Gastroenterology 06/17/24 Doretha Glynn MD [address] [place] [address] [email or web address] Endocrinology 06/17/24 Radha Pereira, RN [address] [place] [address] [email or web address] PHC Sewer And Drain TechnicianChemical Laboratory Technician 06/11/25 Jv Liz [address] [place] [address] (work) [email or web address] Major Gifts Director 08/12/25 08/12/25 documented as of this encounter Additional Source Comments The information contained in this document represents components of the legal health record. It is not the complete legal health record.[facility]
--- OUTSIDE RECORDS SUMMARY | 2025-09-09 07:25 | XMS_ITS | Encounter Summary ---
Author Organization [facility] Address [address] [place] [address] Phone Care Team Providers Care Computer Forwarding System Markup Clerk Name Role Phone Lester Hicks MD Unavailable [phone] Margaux Montanez MD Unavailable Johann Hanson CNP Primary Care Provider [phone] Khang Kilgore MD Unavailable [phone] Luis Ignacio DO Unavailable [phone] Flo Esteban MD Unavailable [phone] Neisha Pinto RN Unavailable [email or web address] Shreyas Wilson MD Unavailable Doretha Glynn MD Unavailable [phone] Izzy Hackett Unavailable [email or web address] Radha Pereira RN Unavailable Jv Liz Unavailable Encounter Details Date Type Department Care Team (Late st Contact Info) Description 12/07/2022 Procedure Pass [facility] [address] [place], [place] [id number] Social History Tobacco Use Types Packs/Day Years [...] 12/07/2022 9:18 AM Alise Hamilton, RN * [place] Suicide Severity Rating Scale (Screener/Recent Self-Report) Question [...] st Contact Info) Description 09/01/2025 Procedure Pass [facility], [address] [address] 09/10/2025 9:00 AM EST Office Visit [facility] Gastroenterology Clinic [address] [place] [address] Unknown, Unknown, Shreyas Limon MD [address] [place] [address] 09/21/2025 2:30 PM EST Office Visit [facility] [address] [place] [address] Lester Hicks MD [address] [place] [address] 10/07/2025 7:15 AM EST Appointment [facility] [address] [place] [address] Lester Hicks MD [address] [place] [address] 10/13/2025 9:20 AM EST Office Visit [facility] [address] [place] [address] Doretha Glynn MD [address] [place] [address] [email or web address] 10/15/2025 7:40 AM EST Appointment [address] [address] Devorah Beck PA-C [address] [place] [address] [email or web address] 12/22/2025 8:30 AM EDT Office Visit [address] [place] [address] Johann Hanson CNP [address] [place] [address], [address] [place] [address] [email or web address] 06/30/2026 8:00 AM EDT Office Visit [address] [place] [address] Johann Hanson CNP [address] [place] [address], [address] [place] [address] [email or web address] documented as of this encounter Visit Diagnoses Not on filedocumented in this encounter Additional Health Concerns Infection Onset Date Last Indicated Resolved Time COVID-19 10/07/2023 10/07/2023 10/28/2023 1:21 AM EST Assessment Noted Time PHQ-2 Depression Total Score: 0 05/15/20 22 1:45 PM EDT documented as of this encounter Care Teams Computer Forwarding System Markup Clerk Relationship Specialty Start Date End Date Johann Hanson CNP [address] [place] [address], [address] [place] [address] PCP - General Family Medicine 02/11/21 Lester Hicks MD [address] [place] [address] Historical LMR Provider 07/28/17 Margaux Montanez MD [address] [place] [address], [address] [place] [address] [email or web address] Historical LMR Provider 07/28/17 Khang Kilgore MD [address] [place] [address], [address] [place] [address] [email or web address] Insurance Assigned Provider 01/12/24 Luis Ignacio DO [address] [place] [address], [address] [place] [address] [email or web address] Cardiology 06/28/22 06/16/24 Flo Esteban MD [address] [place] [address] [email or web address] Cardiothoracic Surgery 06/28/22 06/16/24 Neisha Pinto RN [address] [place] [address] [email or web address] PHCM Triage Clinician 02/26/23 06/10/25 Shreyas Wilson MD [address] [place] [address] [email or web address] Gastroenterology 06/17/24 Doretha Glynn MD [address] [place] [address] 3rd [place] [address] Endocrinology 06/17/24 Izzy Hackett [address] [place] [address] [email or web address] PHCM Community Manager Economic 09/11/24 09/11/24 Radha Pereira, RANDI [address] [place] [address] [email or web address] PHCM Triage ClinicianPalliative Senior Np 06/11/25 Jv Liz [address] [place] [place] [address] [email or web address] Child Care Teacher 08/12/25 08/12/25 documented as of this encounter Additional Source Comments The information contained in this document represents components of the legal health record. It is not the complete legal health record.[facility]
--- OUTSIDE RECORDS SUMMARY | 2025-09-09 07:25 | XMS_ITS | Encounter Summary ---
Author Organization [facility] Address [address] [place] [address] [place] [address] Phone Care Team Providers Care Gas Main And Line Fitter Name Role Phone Lester Hicks MD Unavailable [phone] Margaux Montanez MD Unavailable [phone] Johann Hanson CNP Primary Care Provider [phone] Khang Kilgore MD Unavailable Luis Ignacio DO Unavailable Flo Esteban MD Unavailable [phone] Neisha Pinto RN Unavailable [email or web address] Shreyas Wilson MD Unavailable [phone] Doretha Glynn MD Unavailable [phone] Izzy Hackett Unavailable [email or web address] Radha Pereira RN Unavailable [phone] Jv Liz Unavailable Encounter Details Date Type Department Care Team (Late st Contact Info) Description 10/12/2022 Procedure Pass [facility] [address] [facility] [place] [phone] Social History Tobacco Use Types Packs/Day Years [...] school, GED, job training, learning the South African language, technical skills, or developing parenting skills)? [...] st Contact Info) Description 09/01/2025 Procedure Pass [facility], [facility] - [address] [address] 09/10/2025 9:00 AM EST Office Visit [facility] Gastroenterology Clinic [address] [place] [address] Unknown, Unknown, Shreyas Limon MD [address] [place] [address] 09/21/2025 2:30 PM EST Office Visit [facility] [address] [place] [address] [place] [address] Lester Hicks MD [address] [place] [address] 10/07/2025 7:15 AM EST Appointment [facility] [address] [place] [address] Lester Hicks MD [address] [place] [address] 10/13/2025 9:20 AM EST Office Visit [facility] [address] [place] [address] Doretha Glynn MD [address] [place] [address] [email or web address] 10/15/2025 7:40 AM EST Appointment [address] [address] Devorah Beck PA-C [address] [place] [address] [email or web address] 12/22/2025 8:30 AM EDT Office Visit [address] [place] [address] Johann Hanson, TIFFANIE [address] [facility] [place] [address] [email or web address] 06/30/2026 8:00 AM EDT Office Visit [address] [place] [address] Johann Hanson CNP [address] [facility] [place] [address] [email or web address] documented as of this encounter [...] documented as of this encounter Care Teams Gas Main And Line Fitter Relationship Specialty Start Date End Date Johann Hanson CNP [address] [facility] [place] [address] [email or web address] PCP - General Family Medicine 02/11/21 Lester Hicks MD [address] [place] [address] [email or web address] Historical LMR Provider 07/28/17 Margaux Montanez MD [address] [place] [address], [address] [place] [address] [email or web address] Historical LMR Provider 07/28/17 Khang Kilgore MD [address] [place] [address], [address] [place] [address] [email or web address] Insurance Assigned Provider 01/12/24 Luis Ignacio DO [address] [place] [address], [address] [place] [address] Cardiology 06/28/22 06/16/24 Flo Esteban MD [address] [place] [address] [email or web address] Cardiothoracic Surgery 06/28/22 06/16/24 Neisha Pinto, RANDI [address] [place] [address] [email or web address] [email or web address] Warehouse Distribution Specialist 02/26/23 06/10/25 Shreyas Wilson MD [address] [place] [address] Gastroenterology 06/17/24 Doretha Glynn MD [address] [place] [address] [address] [place] [address] Endocrinology 06/17/24 Izzy Hackett [address] [place] [address] [email or web address] PHC Community Laminator Preforms 09/11/24 09/11/24 Radha Pereira RN [address] [place] [address] PHCM Warehouse Distribution SpecialistAlumni Relations Manager 06/11/25 Jv Liz [address] [place] [address] Vpk Teacher 08/12/25 08/12/25 documented as of this encounter Additional Source Comments The information contained in this document represents components of the legal health record. It is not the complete legal health record.[facility]
--- OUTSIDE RECORDS SUMMARY | 2025-09-09 07:25 | XMS_ITS | Encounter Summary ---
Author Organization [facility] Address [address] [place] [address] [place] [address] Phone Care Team Providers Care Environmental Health Manager Name Role Phone Tricia Balderas DO Unavailable Lester Hicks MD Unavailable [phone] Margaux Montanez MD Unavailable Demario Floyd MD Unavailable Pam Benson MD Unavailable [phone] Adithya Campos BULK SYSTEM OPERATOR Unavailable Beatriz Donaldson MASTER BAKER Unavailable Beatriz Donaldson MASTER BAKER Primary Care Provider Mamta Whitney DO Primary Care Provider [phone] Mamta Whitney DO Primary Care Provider [phone] Johann Hanson BULK SYSTEM OPERATOR Primary Care Provider [phone] Khang Kilgore MD Unavailable Luis Ignacio DO Unavailable Flo Esteban MD Unavailable [phone] Dilan Rowland MD Unavailable Corby Prado MD Unavailable Neisha Pinto RN Unavailable [email or web address] Shreyas Wilson MD Unavailable Doretha Glynn MD Unavailable [phone] Izzy Hackett Unavailable [email or web address] Radha Pereira RN Unavailable Jv Liz Unavailable Encounter Details Date Type Department Care Team (Late Contact Info) Description 05/29/2019 Telephone [facility] Pulmonary, Allergy and Critical Care Medicine [address] [place] [address] Aishwarya Vasquez MD [address] [place] [address] [email or web address] Social History Tobacco Use Types Packs/Day Years [...] Upcoming Encounters Date Type Department Care Team ([facility] Contact Info) Description 09/01/2025 Procedure Pass [facility] [address] [place] [address] 09/10/2025 9:00 AM EST Office Visit [facility] [address] [place] [address] Unknown, Unknown, Shreyas Limon MD [address] [place] [address] [id number] 09/21/2025 2:30 PM EST Office Visit [facility] Pulmonary, Allergy and Critical Care Medicine [address] [place] [address] [place] [address] Lester Hicks MD [address] [place] [address] 10/07/2025 7:15 AM EST Appointment [facility] [address] [place] [address] Lester Hicks MD [address] [place] [address] 10/13/2025 9:20 AM EST Office Visit [facility]inology [address] [place] [address] Doretha Glynn MD [address] [place] [address] [email or web address] 10/15/2025 7:40 AM EST Appointment [facility] [address] [place] [address] Devorah Beck PA-C [address] [place] [address] [email or web address] 12/22/2025 8:30 AM EDT Office Visit [address] [place] [address] Johann Hasnon, BULK SYSTEM OPERATOR [address] [place] [address], [address] [place] [address] [email or web address] 06/30/2026 8:00 AM EDT Office Visit [address] [place] [address] Johann Hanson, BULK SYSTEM OPERATOR [address] [place] [address], [address] [place] [address] [email or web address] documented as of this encounter Visit Diagnoses Not on filedocumented in this encounter Additional Health Concerns Infection Onset Date Last Indicated Resolved Time CoV-Presumed 05/27/2022 05/27/2022 06/17/2022 1:21 AM EDT CoV-Presumed Comment:COVID-19 Added 10/12/2022 10/12/2022 10/13/2022 6:26 P M EST COVID-19 10/13/2022 10/13/2022 11/03/2022 1:21 AM EST COVID-19 10/07/2023 10/07/2023 10/28/2023 1:21 AM EST documented as of this encounter Care Teams Environmental Health Manager Relationship Specialty Start Date End Date Beatriz Donaldson, MASTER BAKER [address] [place] [address] PCP - General Family Medicine 10/04/17 04/11/20 Mamta Whitney DO [address] [place] [address] [email or web address] PCP - General Family Medicine 04/12/20 02/08/21 Mamta Whitney DO [address] [place] [address] [email or web address] PCP - General Family Medicine 02/10/21 02/10/21 Johann Hanson CNP 22 [facility], [address] [place] [address] [email or web address] PCP - General Family Medicine 02/11/21 Tricia Balderas DO [address] [place] [address] [email or web address] Historical LMR Provider 07/28/17 10/15/21 Lester Hicks MD [address] [place] [address] [email or web address] Historical LMR Provider 07/28/17 Margaux Montanez MD [address] [place] [address], [address] [place] [address] [email or web address] Historical LMR Provider 07/28/17 Demario Floyd MD [address] [place] [address] [email or web address] Historical LMR Provider 07/28/17 10/15/21 Pam Benson MD [address] [place] [address] [email or web address] Historical LMR Provider 07/28/17 10/15/21 Adithya Campos, BULK SYSTEM OPERATOR [address] [place] [address] [email or web address] Historical LMR Provider 07/28/17 12/25/21 Beatriz Donaldson, MASTER BAKER [address] [place] [address] Historical LMR Provider 07/28/17 04/11/20 Khang Kilgore MD [address] [place] [address], [address] [place] [address] [email or web address] Insurance Assigned Provider 01/12/24 Luis Ignacio DO [address] [place] [address], [address] [place] [address] Cardiology 06/28/22 06/16/24 Flo Esteban MD [address] [place] [address] [place] [address] [email or web address] Cardiothoracic Surgery 06/28/22 06/16/24 Dilan Rowland MD [address] [place] [address], [address] [place] [address] Insurance Assigned Provider 07/15/22 08/13/22 Corby Prado MD [address] [place] [address], [address] [place] [address] Insurance Assigned Provider 08/13/22 09/16/22 Neisha Pinto RN [address] [place] [address], [address] [place] [address] [email or web address] PHCM Industrial Recruiter 02/26/23 06/10/25 Shreyas Wilson MD [address] [place] [address] Gastroenterology 06/17/24 Doretha Glynn MD [address] [place] [address] [address] [place] [address] Endocrinology 06/17/24 Izzy Hackett [address] [place] [address] [email or web address] PHCM Community Pattern Developer 09/11/24 09/11/24 Radha Pereira, RN [address] [place] [address] [email or web address] PHC Industrial RecruiterPoint Of Care Specialist 06/11/25 Jv Liz [address] [place] [address] [email or web address] Toy Mechanic 08/12/25 08/12/25 documented as of this encounter Additional Source Comments The information contained in this document represents components of the legal health record. It is not the complete legal health record.[facility]
--- OUTSIDE RECORDS SUMMARY | 2025-09-09 07:25 | XMS_ITS | Encounter Summary ---
Author Organization [facility] Address [address] [place] [address] [place] [address] Phone Care Team Providers Care Roof Bolting Coal Miner Name Role Phone Lester Hicks MD Unavailable [phone] Margaux Montanez MD Unavailable [phone] Johann Hanson CNP Primary Care Provider [phone] Khang Kilgore MD Unavailable [phone] Luis Ignacio DO Unavailable [phone] Flo Esteban MD Unavailable [phone] Neisha Pinto RN Unavailable [email or web address] Shreyas Wilson MD Unavailable Doretha Glnyn MD Unavailable [phone] Izzy Hackett Unavailable [email or web address] Radha Pereira RN Unavailable [phone] Jv Liz Unavailable Encounter Details Date Type Department Care Team (Late st Contact Info) Description 12/07/2022 Procedure Pass [facility] [place], Ct Scan - [address] [id number] Social History Tobacco Use Types Packs/Day Years [...] 12/07/2022 9:18 AM Alise Hamilton, RN * [place] Suicide Severity Rating Scale (Screener/Recent Self-Report) Question [...] st Contact Info) Description 09/01/2025 Procedure Pass [address] [address] 09/10/2025 9:00 AM EST Office Visit [facility] [address] [place] [address] Unknown, [place], Shreyas Limon MD [address] [place] [address] 09/21/2025 2:30 PM EST Office Visit [facility] Pulmonary, Allergy and Critical Care Medicine [address] [place] [address] Lester Hicks MD [address] [place] [address] 10/07/2025 7:15 AM EST Appointment [facility] [address] [place] [address] Lester Hicks MD [address] [place] [address] 10/13/2025 9:20 AM EST Office Visit [facility] [address] [place] [address] Doretha Glynn MD [address] [place] [address] [email or web address] 10/15/2025 7:40 AM EST Appointment [address] [address] Devorah Beck PA-C [address] [place] [address] [email or web address] 12/22/2025 8:30 AM EDT Office Visit [address] [place] [address] Johann Hanson CNP 22 [facility], [address] [place] [address] [email or web address] 06/30/2026 8:00 AM EDT Office Visit [address] [place] [address] Johann Hanson CNP [address] [place] [address], [address] [place] [address] [email or web address] documented as of this encounter Visit Diagnoses Not on filedocumented in this encounter Additional Health Concerns Infection Onset Date Last Indicated Resolved Time COVID-19 10/07/2023 10/07/2023 10/28/2023 1:21 AM EST Assessment Noted Time PHQ-2 Depression Total Score: 0 05/15/20 22 1:45 PM EDT documented as of this encounter Care Teams Roof Bolting Coal Miner Relationship Specialty Start Date End Date Johann Hanson CNP [address] [place] [address], [address] [place] [address] PCP - General Family Medicine 02/11/21 Lester Hicks MD [address] [place] [address] Historical LMR Provider 07/28/17 Margaux Montanez MD [address] [place] [address], [address] [place] [address] [email or web address] Historical LMR Provider 07/28/17 Khang Kilgore MD [address] [place] [address], [address] [place] [address] [email or web address] Insurance Assigned Provider 01/12/24 Luis Ignacio DO [address] [place] [address], [address] [place] [address] [email or web address] Cardiology 06/28/22 06/16/24 Flo Esteban MD [address] [place] [address] [email or web address] Cardiothoracic Surgery 06/28/22 06/16/24 Neisha Pinto RN [address] [place] [address] [email or web address] PHCM Bass Guitar Teacher 02/26/23 06/10/25 Shreyas Wilson MD [address] [place] [address] [email or web address] Gastroenterology 06/17/24 Doretha Glynn MD [address] [place] [address] 3[address] [place] [address] [email or web address] Endocrinology 06/17/24 Izzy Hackett [address] [place] [address] [email or web address] PHC Community Greaser Operator 09/11/24 09/11/24 Radha Pereira, RANDI [address] [place] [address] [email or web address] PHCM Bass Guitar TeacherSpring Encaser 06/11/25 Jv Liz [address] [place] [address] [email or web address] Grader Operator 08/12/25 08/12/25 documented as of this encounter Additional Source Comments The information contained in this document represents components of the legal health record. It is not the complete legal health record.[facility]
--- OUTSIDE RECORDS SUMMARY | 2025-09-09 07:25 | XMS_ITS | Encounter Summary ---
Author Organization [facility] Address [address] [place] [address] [place] [address] Phone Care Team Providers Care Stack Supervisor Name Role Phone Tricia Balderas DO Unavailable Lester Hicks MD Unavailable [phone] Margaux Montanez MD Unavailable Demario Floyd MD Unavailable Pam Benson MD Unavailable [phone] Adithya Campos HOST HOSTESS Unavailable Beatriz Donaldson CHANNEL DIRECTOR Unavailable Beatriz Donaldson CHANNEL DIRECTOR Primary Care Provider Mamta Whitney DO Primary Care Provider [phone] Mamta Whitney DO Primary Care Provider [phone] Johann Hanson HOST HOSTESS Primary Care Provider [phone] Khang Kilgore MD Unavailable Luis Ignacio DO Unavailable Flo Esteban MD Unavailable Dilan Rowland MD Unavailable [phone] Corby Prado MD Unavailable [phone] Neisha Pinto RN Unavailable [email or web address] Shreyas Wilson MD Unavailable Doretha Glynn MD Unavailable [phone] Izzy Hackett Unavailable [email or web address] Radha Pereira RN Unavailable [phone] Jv Liz Unavailable Encounter Details Date Type Department Care Team (Late st Contact Info) Description 01/10/[address] [facility] Cardiovascular And Interventional Radiology [address] [place] [address] Social History Tobacco Use Types Packs/Day Years [...] st Contact Info) Description 09/01/2025 Procedure Pass [address] [address] 09/10/2025 9:00 AM EST Office Visit [facility] [address] [place] [address] Unknown, Unknown, Shreyas Limon MD [address] [place] [address] [email or web address] 09/21/2025 2:30 PM EST Office Visit [facility] Pulmonary, Allergy and Critical Care Medicine [address] [place] [address] [place] [address] Lester Hicks MD [address] [place] [address] 10/07/2025 7:15 AM EST Appointment [facility] [address] [place] [address] Lester Hicks MD [address] [place] [address] 10/13/2025 9:20 AM EST Office Visit [facility] [address] [place] [address] Doretha Glynn MD [address] [place] [address] [email or web address] 10/15/2025 7:40 AM EST Appointment [facility] [address] [place] [address] Devorah Beck PA-C [address] [place] [address] [email or web address] 12/22/2025 8:30 AM EDT Office Visit [address] [place] [address] Johann Hanson HOST HOSTESS [address] [place] [address], [address] [place] [address] [email or web address] 06/30/2026 8:00 AM EDT Office Visit [address] [place] [address] Johann Hanson HOST HOSTESS [address] [place] [address], [address] [place] [address] [email or web address] documented as of this encounter Visit Diagnoses Not on filedocumented in this encounter Additional Health Concerns Infection Onset Date Last Indicated Resolved Time CoV-Presumed 05/27/2022 05/27/2022 06/17/2022 1:21 AM EDT CoV-Presumed Comment:COVID-19 Added 10/12/2022 10/12/2022 10/13/2022 6:26 P M EST COVID-19 10/13/2022 10/13/2022 11/03/2022 1:21 AM EST COVID-19 10/07/2023 10/07/2023 10/28/2023 1:21 AM EST documented as of this encounter Care Teams Stack Supervisor Relationship Specialty Start Date End Date Beatriz Donaldson, CHANNEL DIRECTOR [address] [place] [address] PCP - General Family Medicine 10/04/17 04/11/20 Mamta Whitney DO [address] [place] [address] [email or web address] PCP - General Family Medicine 04/12/20 02/08/21 Mamta Whitney DO [address] [place] [address] [email or web address] PCP - General Family Medicine 02/10/21 02/10/21 Johann Hanson CNP 22 [facility], [address] [place] [address] [email or web address] PCP - General Family Medicine 02/11/21 Tricia Balderas DO [address] [place] [address] [email or web address] Historical LMR Provider 07/28/17 10/15/21 Lester Hicks MD [address] [place] [address] [email or web address] Historical LMR Provider 07/28/17 Margaux Montanez MD [address] [place] [address], [address] [place] [address] [email or web address] Historical LMR Provider 07/28/17 Demario Floyd MD [address] [place] [address] [email or web address] Historical LMR Provider 07/28/17 10/15/21 Pam Benson MD [address] [place] [address] [email or web address] Historical LMR Provider 07/28/17 10/15/21 Adithya Campos, HOST HOSTESS [address] [place] [address] [email or web address] Historical LMR Provider 07/28/17 12/25/21 Beatriz Donaldson, CHANNEL DIRECTOR [address] [place] [address] Historical LMR Provider 07/28/17 04/11/20 Khang Kilgore MD [address] [place] [address], [address] [place] [address] [email or web address] Insurance Assigned Provider 01/12/24 Luis Ignacio DO [address] [place] [address], [address] [place] [address] Cardiology 06/28/22 06/16/24 Flo Esteban MD [address] [place] [address] [place] [address] [email or web address] Cardiothoracic Surgery 06/28/22 06/16/24 Dilan Rowland MD [address] [place] [address], [address] [place] [address] [email or web address] Insurance Assigned Provider 07/15/22 08/13/22 Corby Prado MD [address] [place] [address], [address] [place] [address] [email or web address] Insurance Assigned Provider 08/13/22 09/16/22 Neisha Pinto RN [address] [place] [address], [address] [place] [address] [email or web address] PHCM Job Coach 02/26/23 06/10/25 Shreyas Wilson MD [address] [place] [address] [email or web address] Gastroenterology 06/17/24 Doretha Glynn MD [address] [place] [address] [address] [place] [address] [email or web address] Endocrinology 06/17/24 Izzy Hackett [address] [place] [address] [email or web address] PHCM Community Chairman Ceo 09/11/24 09/11/24 Radha Pereira, RANDI [address] [place] [address] [email or web address] PHCM Job CoachBiochemistry Technologist 06/11/25 Jv Liz [address] [place] [address] [email or web address] Workgroup Leader 08/12/25 08/12/25 documented as of this encounter Additional Source Comments The information contained in this document represents components of the legal health record. It is not the complete legal health record.[facility]
[2025-09-09 07:41] LABS: MANUAL DIFF FLAG NO
[2025-09-09 08:09] LABS: Hematocrit 39.7 % (37.0-47.0); Hemoglobin 13.2 g/dl (12.0-16.0); Imm Gran Abs Auto 0.01 X10*3/uL (0.00-0.03); Imm Gran Pct Auto 0.3 % (0.0-0.4); Lymphocytes Absolute Auto 1.8 X10*3/uL (1.2-4.9); Mean Corpuscular HGB Conc 33.2 g/dl (31.0-35.0); Mean Corpuscular Hemoglobin 29.6 pg (27.0-33.0); Mean Corpuscular Volume 89.0 fL (80.0-98.0); NRBC Abs Auto 0.000 X10*3/uL (0.0-0.012); NRBC Pct Auto 0.0 /100WBC (0.0-0.2); Platelet Count 288 X10*3/uL (160-400); Red Blood Count 4.46 X10*6/uL (4.20-5.50); White Blood Count 3.8 X10*3/uL (4.8-10.8)
[2025-09-09 08:55] LABS: Lipase 51 U/L (8-78)
[2025-09-09 08:57] LABS: Alanine Aminotransferase 13 U/L (0-31); Albumin Level 4.6 g/dL (3.5-5.0); Alkaline Phosphatase 50 U/L (39-117); Anion Gap 12 (12-20); Aspartate Amino Transferase 23 U/L (5-31); Blood Urea Nitrogen 14 mg/dL (9-16); Calcium 10.0 mg/dL (8.4-10.2); Carbon Dioxide 29 mmol/L (22-29); Chloride 103 mmol/L (96-108); Estimated Glomerular Filt Rate > 60; Potassium 3.3 mmol/L (3.3-5.1); Sodium 141 mmol/L (135-145); Total Protein 6.9 g/dL (6.5-8.0)
== END 2025-09-09 07:20 | disposition home or self-care (01) ==
LOC: HO.LAB 07:19
PROVIDERS: Absent Provider Physician Assistant Medical; PCP Nurse Practitioner Adult Health; Visit Provider Internal Medicine Rheumatology
DX: M35.02 Sjogren syndrome with lung involvement (principal); M32.9 Systemic lupus erythematosus, unspecified; M19.90 Unspecified osteoarthritis, unspecified site; R10.11 Right upper quadrant pain; R11.10 Vomiting, unspecified; Z79.631 Long term (current) use of antimetabolite agent
CPT/HCPCS: 36415; 80053; 82550; 83690; 85025; 85652; 86140; 86160; 86225

== ENCOUNTER → 2025-09-24 10:22 | Outpatient (BNVA) | payer OTHER, SELFPAY | PROVIDERS: PCP Nurse Practitioner Adult Health | DX: Z01.818 Encounter for other preprocedural examination (principal) ==